=== PATIENT | female | born 1975 | race African-American/Black ===

== ENCOUNTER 2016-03-24 11:08 | Inpatient (IN) | payer MEDICARE, OTHER ==
[~2016-03-24] VITALS: Ht 165.1 cm; Wt 99.8 kg
[~2016-03-24 11:08] MED LIST: AMIKACIN S1000 MG/4 IV; ANCEF0.5 GM IVPB; AUGMENTIN 875-1 EAC1 ORAL; BACTRIM DS TAB1 EAC1 ORAL; CEFEPIME-D1 GM/50 ML IVPB; CEPHALEXIN500 MG ORAL; FLUCONAZOL IV; FLUCONAZOL100 MG/50 IV; FLUCONAZOL200 MG/100 IV; HYDROCORTISO1 APPLIC TOPIC; METRONIDAZ500 MG/100 IVPB; Marijuana; NKM; NO MEDICATIONS; NORCO 10-325 T1 EACH ORAL; NORCO 5-325 TA1 EAC1 ORAL; TYGACIL50 MG IVPB; VIBRAMYCIN100 MG ORAL; VIBRAMYCIN50 MG/5 M1 PO; ZYVOX600 MG/300 IVPB
[2016-03-24 13:06] VITALS: BP 94/54
[2016-03-24 15:59] VITALS: BP 109/46
[2016-03-24 16:03] VITALS: BP 109/62
[2016-03-24] MEDS ORDERED: Sodium Bicarbonate 8.4% 50ml Inj IV PRN (17:00)
[2016-03-24] MEDS ORDERED: Lidocaine 1% Plain 30 ml INJ PRN (17:00)
[2016-03-24] MEDS ORDERED: Heparin 2000 units/Ns 1000ml INJ PRN (17:00)
[2016-03-24] MEDS: DiphenhydrAMINE 50mg/ml Inj IVP PRN ×2 (17:39→21:51)
[2016-03-24 19:53] VITALS: BP 94/66
[2016-03-24] MEDS: Heparin 5000 units/ml inj SUBQ SCH (21:00)
[2016-03-25] VITALS: BP 103/52
[2016-03-25] MEDS: DiphenhydrAMINE 50mg/ml Inj IVP PRN ×3 (02:53→13:07)
[2016-03-25 08:19] VITALS: BP 85/51
[2016-03-25] MEDS: LORazepam Inj 2mg/ml 1ml IV PRN (08:20)
--- NOTE | 2016-03-25 09:37 | History and Physical Report ---
DATE OF ADMISSION: 03/24/2016 CHIEF COMPLAINT: Multiple sacral and thigh wounds. HISTORY OF PRESENT ILLNESS: This is a very pleasant unfortunate female with the history of paraplegia. She has a history of chronic sacral thigh wounds and been treated by her wound care physician as an outpatient. She was admitted because of worsening wounds and pain, subjective fevers, and chills. The patient otherwise without complaints. Denies any fevers or chills. She has had some anxiety. No reports of any chest pain or shortness of breath. PAST MEDICAL HISTORY: As above. PAST SURGICAL HISTORY: Includes multiple incisions and drainage and wound dbridements. CURRENT MEDICATIONS: Reconciled and reviewed. ALLERGIES: The patient has multiple drug allergies including , Rocephin, codeine, iron, Lasix, piperacillin/tazobactam, and vancomycin. FAMILY HISTORY: Noncontributory. SOCIAL HISTORY: There is no known history of tobacco, ethanol, or drugs. REVIEW OF SYSTEMS: General: Positive for generalized fevers and malaise. HEENT: No headaches. No visual changes. Cardiopulmonary: No chest pain or shortness of breath. Gastrointestinal: No nausea or vomiting. Genitourinary: No urgency or frequency. Musculoskeletal: No dependent swelling. Neurologic: No evidence of seizures. PHYSICAL EXAMINATION: VITAL SIGNS: Temperature 97.4 degrees, blood pressure 185/51, pulse of 116, respirations 20. GENERAL: The patient is a well-developed female, in no apparent distress. She is anxious and tearful. HEENT: Her pupils are equal, round, and reactive to light. Oropharynx clear. Mucous membranes are moist. NECK: Supple. HEART: Regular rate and rhythm. LUNGS: Clear. ABDOMEN: Soft, nontender, and nondistended. EXTREMITIES: Without clubbing or cyanosis. She also has a large sacral wound and multiple wounds on the right left hip. There is some discharge noted. LABORATORY DATA: Pending. ASSESSMENT: This is a pleasant unfortunate female with history of paraplegia, multiple sacral thigh wounds admitted for possible wound infection. PLAN: Plastic surgery evaluation and ID consultation. Check wound cultures. Empiric antibiotic therapy. Jacques Chanel M.D. DR: BOLA JOB#: [id number] CC:
[2016-03-25] MEDS: Heparin 5000 units/ml inj SUBQ SCH ×2 (10:00→22:16)
[2016-03-25 10:56] LABS: MEAN CORPUSCULAR HEMOGLOBIN 26.1 PG (27.0-31.0); MEAN CORPUSCULAR HGB CONC 30.1 G/DL (32.0-36.0); MEAN CORPUSCULAR VOLUME 87 FL (80-99); MEAN PLATELET VOLUME 7.4 FL (6.5-10.1); PLATELET COUNT 505 K/UL (150-450); RED BLOOD COUNT 3.44 M/UL (4.20-5.40); WHITE BLOOD COUNT 20.7 K/UL (4.8-10.8)
[2016-03-25 11:03] LABS: INR 1.3 (0.9-1.1); PROTHROMBIN TIME 13.1 SEC (9.30-11.50)
[2016-03-25 11:07] LABS: ALBUMIN/GLOBULIN RATIO 0.5 (1.0-2.7); CALCIUM 8.5 mg/dL (8.6-10.2); CREATININE 2.5 mg/dL (0.5-0.9); GLOMERULAR FILTRATION RATE 25.6 mL/min (>60); POTASSIUM 4.2 mEQ/L (3.4-4.9); TOTAL PROTEIN 7.4 g/dL (6.6-8.7)
[2016-03-25 11:19] LABS: ANISOCYTOSIS 1+; BAND NEUTROPHILS % (MANUAL) 6 % (0-8); BASOPHILS % (MANUAL) 0 % (0-2); EOSINOPHILS % (MANUAL) 0 % (0-3); HYPOCHROMASIA 2+; LYMPHOCYTES % (MANUAL) 9 % (20-45); NEUTROPHILS % (MANUAL) 79 % (45-75); PLATELET ESTIMATE ADEQUATE; PLATELET MORPHOLOGY NORMAL; TOTAL CELLS COUNTED 100
[2016-03-25 14:30] VITALS: BP 98/46
[2016-03-25 16:00] VITALS: BP 87/56
--- NOTE | 2016-03-25 16:05 | Wound Nurse Progress Note ---
Wound RN Progress Note Wound Consult 9am - attempted to do body assessment, explained purpose of body assessment, patient denied at this time stating " i want to sleep come back later." patient decided 1pm would be a good time to come back and assess. 12:14 pm recieved call from outpatient wound clinic for treatment orders per . 1:05pm - Returned to room for body assessment , explained to Patient it is now 1pm as we planned for body assessment ,asked patient if i was able to asses stated. " no, im sleepy, come back later" explained to patient purpose of body assessment,and also explained to patient that orders were obtained from . patient did not let me assess her at this time stated" come back in 45 mins". 1:50PM -Returned to patient room ,asked if i could assess her wounds , stated." okay come in." I was able to assess most wounds however she did not let me assess wound on sacral , asked patient if i could see her sacral wound stated " i dont have anything there". explained to patient i obtained orders for a sacral dressing, Patient denied wound at this time , not able to assess, patient did not agree with her sacral being assessed. SUGEY JORDAN Mar 25, 2016 16:05
--- NOTE | 2016-03-25 16:25 | Wound Care Consultation ---
Wound Assessment Wound Assessment #1: Wound Present on Admission: Yes New Wound: No Status Change of Wound: No Wound Location Body Site Modif: left Wound Location Body Site: ischial tuberosity Wound Type: pressure ulcer - scattered pressue ulcers. Gilberto Test: Does not Gilberto Pressure Ulcer Stage: IV/unstageable Wound Thickness: Full Thickness Wound Length: 10.5 Wound Width: 10.5 Wound Depth: 0.3 Percent of Wound [place]/Red: 100 Wound Drainage Description: Serosanguineous Wound Drainage Amount: Moderate Wound Drainage Odor: None/Absent Tissue Surrounding Wound: Macerated Wound General Appearance: Reddened Wound Assessment #2: Wound Number: #2 Wound Present on Admission: Yes New Wound: No Status Change of Wound: No Wound Location Body Site Modif: left, lateral Wound Location Body Site: thigh - site 1 Wound Type: abscess Wound Length: 3.0 Wound Width: 2.0 Wound Depth: 2.0 Percent of Wound [place]/Red: 100 Wound Drainage Description: Serosanguineous Wound Drainage Amount: Copious Wound Drainage Odor: Mild Odor Tissue Surrounding Wound: Macerated Wound General Appearance: Reddened, Bleeding, Draining Wound Assessment #3: Wound Number: #3 Wound Present on Admission: Yes New Wound: No Status Change of Wound: No Wound Location Body Site Modif: left, lateral Wound Location Body Site: thigh - site 2 Wound Type: abscess Wound Length: 1.0 Wound Width: 0.5 Wound Depth: 0.3 Percent of Wound [place]/Red: 100 Wound Drainage Description: Serosanguineous Wound Drainage Amount: Moderate Wound Drainage Odor: None/Absent Tissue Surrounding Wound: Macerated Wound General Appearance: Reddened, Bleeding, Draining Wound Assessment #4: Wound Number: #4 Wound Present on Admission: Yes New Wound: No Status Change of Wound: No Wound Location Body Site Modif: left, lateral Wound Location Body Site: thigh - site 3 Wound Type: abscess Wound Length: 2.0 Wound Width: 2.0 Wound Depth: 1.0 Percent of Wound [place]/Red: 100 Wound Drainage Description: Serosanguineous Wound Drainage Amount: Moderate Wound Drainage Odor: None/Absent Tissue Surrounding Wound: Macerated Wound General Appearance: Reddened, Bleeding, Draining Wound Assessment #5: Wound Number: #5 Wound Present on Admission: Yes New Wound: No Status Change of Wound: No Wound Location Body Site Modif: left, posterior Wound Location Body Site: leg Wound Type: pressure ulcer Gilberto Test: Does not Gilberto Pressure Ulcer Stage: IV/unstageable Wound Thickness: Full Thickness Wound Length: 10.0 Wound Width: 10.0 Wound Depth: utd Percent of Wound [place]/Red: 20 Percent of Wound Bed Yellow/Wh: 60 Percent of Wound Black/Brown: 20 Wound Drainage Description: Serosanguineous Wound Drainage Amount: Copious Wound Drainage Odor: Mild Odor Tissue Surrounding Wound: Macerated Wound General Appearance: Reddened, Bleeding, Draining, Necrotic Wound Assessment #6: Wound Number: #6 Wound Present on Admission: Yes New Wound: No Status Change of Wound: No Wound Location Body Site Modif: right, posterior Wound Location Body Site: leg Wound Type: pressure ulcer Gilberto Test: Does not Gilberto Pressure Ulcer Stage: IV/unstageable Wound Thickness: Full Thickness Wound Length: 8.0 Wound Width: 6.0 Wound Depth: utd Percent of Wound [place]/Red: 20 Percent of Wound Bed Yellow/Wh: 80 Wound Drainage Amount: Copious Wound Drainage Odor: Mild Odor Tissue Surrounding Wound: Macerated Wound General Appearance: Reddened, Bleeding, Draining Wound Assessment #7: Wound Number: #7 Wound Present on Admission: Yes New Wound: No Status Change of Wound: No Wound Location Body Site Modif: right, lateral Wound Location Body Site: thigh - site 1 Wound Type: abscess Wound Length: 2.0 Wound Width: 2.0 Wound Depth: 1.5 Wound Drainage Amount: Moderate Wound Drainage Odor: None/Absent Tissue Surrounding Wound: Macerated Wound General Appearance: Reddened, Bleeding, Draining Wound Assessment #8: Wound Number: #8 Wound Present on Admission: Yes New Wound: No Status Change of Wound: No Wound Location Body Site Modif: right Wound Location Body Site: trochanter Wound Type: abscess Wound Length: 3.0 Wound Width: 2.0 Wound Depth: 2.5 Wound Drainage Description: Serosanguineous Wound Drainage Amount: Moderate Wound Drainage Odor: None/Absent Tissue Surrounding Wound: Macerated Wound General Appearance: Reddened, Bleeding, Draining Wound Comment #1 Left Ischial Tuberosity pressure ulcer stage IV/Unstageable.. #2 Left Posterior leg Pressure Ulcer stage IV/Unstageable. # 3 Right Posterior leg Pressure Ulcer stage IV/Unstageable.. #4 Left lateral thigh abscess Site 1,2, & 3. #5 Right lateral thigh abscess Site 1, &2. #6 Sacral Pressure Ulcer. Patient refuse to be seen at this area. Recommendation -Local wound care as ordered. -Turn and reposition. -Keep clean and dry . -Low air loss with AP. -Optimize nutrition. - Assess and follow up with MD for any changes. SUGEY JORDAN Mar 25, 2016 16:25
--- NOTE | 2016-03-25 18:09 | Infectious Diseases Prog Note ---
Assessment/Plan Assessment/Plan Full consult dictated: A) 1) bilateral hip/thigh infected wounds/cellulitis with sepsis, leukocytosis and fevers, sirs, c.diff. risk 2) lois, wt loss, anemia 3) pp, hx osteo and treatment, colostomy 4) allergies - rocephin, codeine, latex, zosyn, vancomycin P) 1) zyvox, aztreonam and flaygl 2) check wc, bc, labs and chest x-ray, c.diff. 3) wound care 4) thank you Subjective Allergies: Coded Allergies: CEFTRIAXONE (Verified Allergy, Intermediate, SOB, HR-140bpm, face swollen , pt became red, 10/24/15) CODEINE (Verified Allergy, Intermediate, SWELLING, 01/03/11) LATEX (Verified Allergy, Intermediate, SWELLING, 01/03/11) PIPERACILLIN (Verified Allergy, Intermediate, Itching, 08/29/15) 08/29/15 tolerates Ceftaroline TAZOBACTAM (Verified Allergy, Intermediate, Itching, 01/29/15) VANCOMYCIN (Verified Allergy, Mild, 07/15/14) ASPARAGINASE (Verified Allergy, Unknown, 01/28/14) IRON (Verified Allergy, Unknown, 01/28/14) Objective Vital Signs Last 24 Hour Vital Signs Date Time Temp Pulse Resp B/P Pulse Ox O2 Delivery O2 Flow Rate FiO2 03/25/16 16:00 97.1 104 22 87/56 100 Room Air 03/25/16 14:30 97.2 97 20 98/46 95 Room Air 03/25/16 13:36 97.4 03/25/16 08:19 97.4 116 20 85/51 100 Room Air 03/25/16 00:00 97.3 105 18 103/52 97 Room Air 03/24/16 19:53 96.9 100 20 94/66 91 Room Air Height (Feet): 5 Height (Inches): 5.00 Weight (Pounds): 220 Laboratory Tests Test 03/25/16 10:25 White Blood Count 20.7 K/UL (4.8-10.8) H Red Blood Count 3.44 M/UL (4.20-5.40) L Hemoglobin 9.0 G/DL (12.0-16.0) L Hematocrit 29.8 % (37.0-47.0) L Mean Corpuscular Volume 87 FL (80-99) Mean Corpuscular Hemoglobin 26.1 PG (27.0-31.0) L Mean Corpuscular Hemoglobin Concent 30.1 G/DL (32.0-36.0) L Red Cell Distribution Width 16.0 % (11.6-14.8) H Platelet Count 505 K/UL (150-450) H Mean Platelet Volume 7.4 FL (6.5-10.1) Neutrophils (%) (Auto) % (45.0-75.0) Lymphocytes (%) (Auto) % (20.0-45.0) Monocytes (%) (Auto) % (1.0-10.0) Eosinophils (%) (Auto) % (0.0-3.0) Basophils (%) (Auto) % (0.0-2.0) Differential Total Cells Counted 100 Neutrophils % (Manual) 79 % (45-75) H Lymphocytes % (Manual) 9 % (20-45) L Monocytes % (Manual) 6 % (1-10) Eosinophils % (Manual) 0 % (0-3) Basophils % (Manual) 0 % (0-2) Band Neutrophils 6 % (0-8) Platelet Estimate Adequate Platelet Morphology Normal Hypochromasia 2+ Anisocytosis 1+ Prothrombin Time 13.1 SEC (9.30-11.50) H Prothromb Time International Ratio 1.3 (0.9-1.1) H Activated Partial Thromboplast Time 36 SEC (23-33) H Sodium Level 131 mEQ/L (135-145) L Potassium Level 4.2 mEQ/L (3.4-4.9) Chloride Level 92 mEQ/L (98-107) L Carbon Dioxide Level 25 mEQ/L (20-30) Anion Gap 14 (5-15) Blood Urea Nitrogen 29 mg/dL (7-23) H Creatinine 2.5 mg/dL (0.5-0.9) H Estimat Glomerular Filtration Rate 25.6 mL/min (>60) Glucose Level 120 mg/dL (74-106) H Calcium Level 8.5 mg/dL (8.6-10.2) L Total Bilirubin 0.7 mg/dL (0.0-1.2) Aspartate Amino Transf (AST/SGOT) 5 U/L (5-40) Alanine Aminotransferase (ALT/SGPT) 10 U/L (3-33) Alkaline Phosphatase 169 U/L (35-104) H Total Protein 7.4 g/dL (6.6-8.7) Albumin 2.5 g/dL (3.5-5.2) L Globulin 4.9 g/dL Albumin/Globulin Ratio 0.5 (1.0-2.7) L Current Medications Medications (Trade) Dose Ordered Sig/Pineda Route PRN Reason Start Time Stop Time Status Last Admin Dose Admin Acetaminophen (Tylenol) 650 mg Q4H PRN ORAL Mild Pain/Temp > 100.5 03/24/16 17:00 04/23/16 16:59 Diphenhydramine HCl (Benadryl) 25 mg Q4H PRN IVP Itching 03/24/16 17:00 04/23/16 16:59 03/25/16 13:07 Heparin Sodium (Porcine) (Heparin 5000 units/ml) 5,000 units EVERY 12 HOURS SUBQ 03/24/16 21:00 04/23/16 20:59 Heparin Sodium/ Sodium Chloride (Heparin 2000 units/Ns 1000ml premix) 2,000 unit ONCE PRN INJ PICC LINE PLACEMENT 03/24/16 17:00 03/25/16 23:59 Hydromorphone HCl (Dilaudid) 2 mg Q4H PRN IVP SEVERE PAIN 03/24/16 17:03 03/31/16 16:59 03/25/16 13:06 Lidocaine HCl (Xylocaine 1% 30ml) 30 ml ONCE PRN INJ PICC LINE PLACEMENT 03/24/16 17:00 03/25/16 23:59 Lorazepam (Ativan 2mg/ml 1ml) 1 mg Q4H PRN IV For Anxiety 03/25/16 08:00 04/01/16 07:59 03/25/16 08:20 Ondansetron HCl (Zofran) 4 mg Q4H PRN IVP Nausea & Vomiting 03/24/16 17:30 04/23/16 17:29 03/25/16 02:53 Sodium Bicarbonate (Sodium Bicarbonate) 50 ml ONCE PRN IV FOR PICC PLACEMENT 03/24/16 17:00 03/25/16 23:59 GRZEGORZ MARTINEZ Mar 25, 2016 18:09
--- NOTE | 2016-03-25 18:17 | Consultation ---
History of Present Illness General Date patient seen: Mar 25, 2016 Time patient seen: 18:07 Chief Complaint: Leukocytosis Reason for Consultation: Multiple wounds Present Illness HPI Patient is a 40 yof admitted to [facility] yesterday for malaise and found to have elevated WBC. She was seen in outpatient wound center on 03/22/16 where she was noted to have worsening of her wounds and development of new wounds. 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 Allergies: Coded Allergies: CEFTRIAXONE (Verified Allergy, Intermediate, SOB, HR-140bpm, face swollen , pt became red, 10/24/15) CODEINE (Verified Allergy, Intermediate, SWELLING, 01/03/11) LATEX (Verified Allergy, Intermediate, SWELLING, 01/03/11) PIPERACILLIN (Verified Allergy, Intermediate, Itching, 08/29/15) 08/29/15 tolerates Ceftaroline TAZOBACTAM (Verified Allergy, Intermediate, Itching, 01/29/15) VANCOMYCIN (Verified Allergy, Mild, 07/15/14) ASPARAGINASE (Verified Allergy, Unknown, 01/28/14) IRON (Verified Allergy, Unknown, 01/28/14) Medication History Scheduled Amikacin Sulfate (Amikacin Sulfate), 1,000 MG IV DAILY, (Reported) Linezolid (Zyvox), 600 MG IVPB EVERY 12 HOURS, (Reported) Metronidazole/Sodium Chloride* (Metronidazole 500 Mg/100 Ml*), 500 MG IVPB EVERY 8 HOURS, (Reported) No Known Medications* (NKM - No Known Medications*), 0 ., (Reported) Patient History History Provided By: Patient, Medical Record Healthcare decision maker Resuscitation status Advanced Directive on File Review of Systems Constitutional: Reports: chills Eye: Reports: no symptoms ENT: Reports: no symptoms Respiratory: Reports: no symptoms Cardiovascular: Reports: no symptoms Gastrointestinal: Reports: abdominal pain Musculoskeletal: Reports: back pain, muscle pain Skin: Reports: rash, see HPI Psychiatric: Reports: no symptoms Hematologic/Lymphatic: Reports: anemia Physical Exam General Appearance: alert Lines, tubes and drains: PICC Respiratory/Chest: no respiratory distress Abdomen: soft Skin Exam: other - Right posterior thigh wound with ecchymosis at the base and periskin with bruising. Left posterior thigh ulcer with parts cleaner base. Lateral thigh ulcer with packing in place and some drainage. Groin creases and inner thighs with excoriation due to moisture. Neurologic: alert, oriented x 3 Last 24 Hour Vital Signs Date Time Temp Pulse Resp B/P Pulse Ox O2 Delivery O2 Flow Rate FiO2 03/25/16 16:00 97.1 104 22 87/56 100 Room Air 03/25/16 14:30 97.2 97 20 98/46 95 Room Air 03/25/16 13:36 97.4 03/25/16 08:19 97.4 116 20 85/51 100 Room Air 03/25/16 00:00 97.3 105 18 103/52 97 Room Air 03/24/16 19:53 96.9 100 20 94/66 91 Room Air Intake and Output 03/24/16 03/25/16 19:00 07:00 Intake Total 325 ml 990 ml Balance 325 ml 990 ml Intake Oral 325 ml 990 ml # Bowel Movements 100 Laboratory Tests Test 03/25/16 10:25 White Blood Count 20.7 K/UL (4.8-10.8) H Red Blood Count 3.44 M/UL (4.20-5.40) L Hemoglobin 9.0 G/DL (12.0-16.0) L Hematocrit 29.8 % (37.0-47.0) L Mean Corpuscular Volume 87 FL (80-99) Mean Corpuscular Hemoglobin 26.1 PG (27.0-31.0) L Mean Corpuscular Hemoglobin Concent 30.1 G/DL (32.0-36.0) L Red Cell Distribution Width 16.0 % (11.6-14.8) H Platelet Count 505 K/UL (150-450) H Mean Platelet Volume 7.4 FL (6.5-10.1) Neutrophils (%) (Auto) % (45.0-75.0) Lymphocytes (%) (Auto) % (20.0-45.0) Monocytes (%) (Auto) % (1.0-10.0) Eosinophils (%) (Auto) % (0.0-3.0) Basophils (%) (Auto) % (0.0-2.0) Differential Total Cells Counted 100 Neutrophils % (Manual) 79 % (45-75) H Lymphocytes % (Manual) 9 % (20-45) L Monocytes % (Manual) 6 % (1-10) Eosinophils % (Manual) 0 % (0-3) Basophils % (Manual) 0 % (0-2) Band Neutrophils 6 % (0-8) Platelet Estimate Adequate Platelet Morphology Normal Hypochromasia 2+ Anisocytosis 1+ Prothrombin Time 13.1 SEC (9.30-11.50) H Prothromb Time International Ratio 1.3 (0.9-1.1) H Activated Partial Thromboplast Time 36 SEC (23-33) H Sodium Level 131 mEQ/L (135-145) L Potassium Level 4.2 mEQ/L (3.4-4.9) Chloride Level 92 mEQ/L (98-107) L Carbon Dioxide Level 25 mEQ/L (20-30) Anion Gap 14 (5-15) Blood Urea Nitrogen 29 mg/dL (7-23) H Creatinine 2.5 mg/dL (0.5-0.9) H Estimat Glomerular Filtration Rate 25.6 mL/min (>60) Glucose Level 120 mg/dL (74-106) H Calcium Level 8.5 mg/dL (8.6-10.2) L Total Bilirubin 0.7 mg/dL (0.0-1.2) Aspartate Amino Transf (AST/SGOT) 5 U/L (5-40) Alanine Aminotransferase (ALT/SGPT) 10 U/L (3-33) Alkaline Phosphatase 169 U/L (35-104) H Total Protein 7.4 g/dL (6.6-8.7) Albumin 2.5 g/dL (3.5-5.2) L Globulin 4.9 g/dL Albumin/Globulin Ratio 0.5 (1.0-2.7) L Height (Feet): 5 Height (Inches): 5.00 Weight (Pounds): 220 Medications Current Medications Medications (Trade) Dose Ordered Sig/Pineda Route PRN Reason Start Time Stop Time Status Last Admin Dose Admin Acetaminophen (Tylenol) 650 mg Q4H PRN ORAL Mild Pain/Temp > 100.5 03/24/16 17:00 04/23/16 16:59 Diphenhydramine HCl (Benadryl) 25 mg Q4H PRN IVP Itching 03/24/16 17:00 04/23/16 16:59 03/25/16 13:07 Heparin Sodium (Porcine) (Heparin 5000 units/ml) 5,000 units EVERY 12 HOURS SUBQ 03/24/16 21:00 04/23/16 20:59 Heparin Sodium/ Sodium Chloride (Heparin 2000 units/Ns 1000ml premix) 2,000 unit ONCE PRN INJ PICC LINE PLACEMENT 03/24/16 17:00 03/25/16 23:59 Hydromorphone HCl (Dilaudid) 2 mg Q4H PRN IVP SEVERE PAIN 03/24/16 17:03 03/31/16 16:59 03/25/16 13:06 Lidocaine HCl (Xylocaine 1% 30ml) 30 ml ONCE PRN INJ PICC LINE PLACEMENT 03/24/16 17:00 03/25/16 23:59 Lorazepam (Ativan 2mg/ml 1ml) 1 mg Q4H PRN IV For Anxiety 03/25/16 08:00 04/01/16 07:59 03/25/16 08:20 Ondansetron HCl (Zofran) 4 mg Q4H PRN IVP Nausea & Vomiting 03/24/16 17:30 04/23/16 17:29 03/25/16 02:53 Sodium Bicarbonate (Sodium Bicarbonate) 50 ml ONCE PRN IV FOR PICC PLACEMENT 03/24/16 17:00 03/25/16 23:59 Assessment/Plan Status: stable Assessment/Plan Patient with multiple wounds. Elevated WBC. Do not feel the wounds are responsible solely for the WBC elevation. Appreciate ID input. Cannot perform CT scan with contrast due to elevated Cr. For now will input wound care orders and if wounds continue to worsen may need to perform operative debridement. LEEANNA CORONA Mar 25, 2016 18:17
[2016-03-25 20:00] VITALS: BP 96/58
[2016-03-25] MEDS: AZTREONAM IVPB SCH (21:56)
[2016-03-25] MEDS: D5W IVPB SCH (21:56)
[2016-03-25] MEDS: metroNIDAZOLE 500mg 100 ML IVPB SCH (21:57)
[2016-03-26] VITALS (8 sets, daily range): BP systolic 85–115; BP diastolic 42–65
[2016-03-26] MEDS: D5W IVPB SCH ×3 (04:01→20:54)
[2016-03-26] MEDS: DiphenhydrAMINE 50mg/ml Inj IVP PRN ×5 (04:01→23:05)
[2016-03-26] MEDS: AZTREONAM IVPB SCH ×3 (04:01→20:54)
--- NOTE | 2016-03-26 04:18 | Consultation ---
DATE OF CONSULTATION: 03/25/2016 INFECTIOUS DISEASES CONSULTATION: CONSULTING PHYSICIAN: Kush Reyes M.D. ATTENDING PHYSICIAN: Thanh Glover M.D. REQUESTING PHYSICIAN: I was asked by Dr. Jacques Chanel to see this patient. REASON FOR CONSULTATION: Infected wounds of the hip, sepsis, elevated white count, and fevers. CHIEF COMPLAINT: Coming into the hospital with infected wounds. HISTORY OF PRESENT ILLNESS: This is a 40-year-old female with history of multiple infected wounds in the past including now, status post multiple antibiotic regimen treatments including long-term treatment for osteomyelitis. The patient has had worsening wounds. I discussed the case with Dr. Cristobal about the wounds. The patient has sepsis, elevated white count, fever, and chills criteria. Infectious Disease consultation was requested for antibiotic management. The patient has multiple drug allergies including penicillin, Zosyn, and Rocephin. The patient was placed on aztreonam, Zyvox, and Flagyl. We will try to avoid nephrotoxic drugs. The patient will be cultured. We will plan reviewing the pictures, the most intense looking wounds located were on the hip and thighs bilaterally. The patient will be cultured secondary to cellulitis. In discussion with Dr. Cristobal, wounds are worsening at this time. I also discussed this case with Dr. Cristobal. MAR was noted. Orders were noted. Notes were reviewed. Case was discussed with RN. The case was discussed with the patient. PAST MEDICAL HISTORY: The patient has a history of paraplegia. She has chronic wound, history of osteoarthritis, status post treatment. She has anemia. She has right now acute kidney injury. She has a history of sepsis in the past. She has a history of cholelithiasis, history of pain syndrome, weakness, and fatigue, and it looks like that she also has a history of diabetes in the past. Please see past medical history in medical order. MEDICATIONS: Upon reviewing the MAR, the patient is on the following medications. Lorazepam, heparin, Zofran, hydromorphone, Benadryl, acetaminophen. She is on sodium bicarbonate, lidocaine, and heparin. ALLERGIES: She is allergic to multiple medications including Rocephin, asparaginase, codeine, iron, Latex, piperacillin and tazobactam, Zosyn, and vancomycin. FAMILY HISTORY: Noncontributory. Negative for exposure to tuberculosis or cancer. SOCIAL HISTORY: Negative for smoking, alcohol, or drug use. REVIEW OF SYSTEMS: Constitutional: The patient has paraplegia. The patient has no Ibrahim. The patient has a colostomy. She has a new PICC line. She has generalized weakness and fatigue. She has fevers. No chills at this time. HEENT: Head and Neck, no thrush, dysphagia or sinus tenderness. Cardiac: No chest pain or palpitations. GI: No nausea, vomiting, or diarrhea. : She has no Ibrahim. Pulmonary: She has no significant shortness of breath, cough, or sputum production. Skin: She has multiple wounds. Neurologic: No seizures. Extremities: She has no pain at this time. PHYSICAL EXAMINATION: VITAL SIGNS: Maximum temperature is 100.1 degrees, temperature now is 97.1 degrees, pulse 104, respiratory rate 22, blood pressure 87/56, and oxygen saturation 100%. GENERAL: The patient is alert and responsive. She is paraplegic. HEENT: Head and Neck, oral exam, no thrush. Eye exam, no icterus. Neck is supple. No JVD. No sinus tenderness. Normocephalic. No facial droop. LUNGS: Clear bilaterally. No rhonchi or rales. HEART: Regular. No gallop or murmur. No friction rub, tachycardic. ABDOMEN: Soft. Positive bowel sounds. Nontender. She has a colostomy. SKIN: Multiple wounds are reviewed and examined and pictures were reviewed also, most prominent of the thigh and hip wounds as well as cellulitis with slough. MUSCULOSKELETAL: No effusions noted. Legs are without cellulitis. PERIPHERAL VASCULAR: No cyanosis or gangrene. RECTAL: She has a colostomy. : She has no Ibrahim. LINES: Line sites are without phlebitis. She has a new PICC line. NEUROLOGIC: Weakness, responsive, alert, and oriented x3. LABORATORY DATA: White count is 20.7 and hemoglobin 9.0, and platelet count is 505,000. Creatinine is 2.5. Sodium is 131. Alkaline phosphatase is 169. Cultures have been ordered. IMAGING STUDIES: No imaging studies have been ordered. C. diff has been ordered. Blood culture, urine culture and sensitivity have been ordered, but we were unable to get urine culture and sensitivity on her. ASSESSMENT AND PLAN: 1. This patient has bilateral hip and thigh infected wounds. She has multiple wounds infected. Clinically, my exam on bilateral thighs and hips, infected wounds are most pronounced with secondary to cellulitis, sepsis, liver cirrhosis, fever and chills criteria. The patient has antibiotics. She also has acute kidney injury, creatinine . She also has anemia. Continue antibiotics, at present, Zyvox, aztreonam, and Flagyl. We will check culture on the patient. The patient may need further imaging of the hip and thigh areas to rule out abscess once her kidney functions are improved. At this time, we will get CT with contrast. Discussed also with Dr. Cristobal. Continue IV Zyvox, Flagyl, and aztreonam. Check cultures, blood, and urine if possible. Check wound cultures. Check . Continue wound care per Dr. Cristobal. We will watch the patient closely. 2. Acute kidney injury. 3. Anemia. 4. Weight loss for . 5. History of osteoarthritis and treatment. 6. Colostomy. 7. Paraplegia. 8. Anemia. 9. Possible history of diabetes. 10. Chronic pain management and chronic pain syndrome. 11. History of cholelithiasis. 12. Pain management for primary. 13. Multiple allergies to asparaginase, Rocephin, codeine, iron, Latex, piperacillin, tazobactam, and vancomycin. 14. The case was discussed with Dr. Cristobal. 15. The case was discussed with RN. 16. The case was discussed with the patient. 17. Nurses notes were reviewed. Kush Reyes M.D. DR: Dorian JOB#: [id number] CC:
[2016-03-26] MEDS: metroNIDAZOLE 500mg 100 ML IVPB SCH ×3 (05:31→23:05)
[2016-03-26] MEDS: LORazepam Inj 2mg/ml 1ml IV PRN (07:01)
[2016-03-26 07:45] LABS: CALCIUM 8.3 mg/dL (8.6-10.2); CREATININE 2.5 mg/dL (0.5-0.9); GLOMERULAR FILTRATION RATE 25.6 mL/min (>60); POTASSIUM 4.3 mEQ/L (3.4-4.9)
[2016-03-26 08:06] LABS: MEAN CORPUSCULAR HEMOGLOBIN 26.5 PG (27.0-31.0); MEAN CORPUSCULAR HGB CONC 30.4 G/DL (32.0-36.0); MEAN CORPUSCULAR VOLUME 87 FL (80-99); MEAN PLATELET VOLUME 7.7 FL (6.5-10.1); PLATELET COUNT 510 K/UL (150-450); RED BLOOD COUNT 3.12 M/UL (4.20-5.40); WHITE BLOOD COUNT 18.8 K/UL (4.8-10.8)
--- NOTE | 2016-03-26 08:29 | General Progress Note ---
Assessment/Plan Problem List: (1) Acute renal failure ICD Codes: N17.9 - Acute kidney failure, unspecified SNOMED: 24047932 Qualifiers: Qualified Codes: N17.9 - Acute kidney failure, unspecified (2) Cellulitis ICD Codes: L03.90 - Cellulitis, unspecified SNOMED: 003158472 Qualifiers: Qualified Codes: L03.90 - Cellulitis, unspecified (3) Abscess ICD Codes: L02.91 - Abscess SNOMED: 205922641 (4) Generalized weakness ICD Codes: R53.1 - Weakness SNOMED: 88722870 (5) Abscess of hip, left ICD Codes: L02.416 - Cutaneous abscess of left lower limb SNOMED: 153077 (6) right hip wound (7) Bilateral edema of lower extremity ICD Codes: R60.0 - Localized edema SNOMED: 369581954 (8) Paraplegia ICD Codes: G82.20 - Paraplegia SNOMED: 86310667 Status: stable, not improved Assessment/Plan iv abx per id follow up cultures wound care ivf check renal martha monitor labs pain rx Subjective ROS Limited/Unobtainable: No Constitutional: Reports: malaise, weakness HEENT: Reports: no symptoms Cardiovascular: Reports: no symptoms Respiratory: Reports: cough Gastrointestinal/Abdominal: Reports: no symptoms Genitourinary: Reports: no symptoms 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: Reports: pre-existing deficit Endocrine: Reports: no symptoms Hematologic/Lymphatic: Reports: anemia Allergies: Coded Allergies: CEFTRIAXONE (Verified Allergy, Intermediate, SOB, HR-140bpm, face swollen , pt became red, 10/24/15) CODEINE (Verified Allergy, Intermediate, SWELLING, 01/03/11) LATEX (Verified Allergy, Intermediate, SWELLING, 01/03/11) PIPERACILLIN (Verified Allergy, Intermediate, Itching, 08/29/15) 08/29/15 tolerates Ceftaroline TAZOBACTAM (Verified Allergy, Intermediate, Itching, 01/29/15) VANCOMYCIN (Verified Allergy, Mild, 07/15/14) ASPARAGINASE (Verified Allergy, Unknown, 01/28/14) IRON (Verified Allergy, Unknown, 01/28/14) All Systems: reviewed and negative except above Subjective better today. less anxious. no chest pain pain controlled. labs noted. bp better. remains on ivf. Objective Last 24 Hour Vital Signs Date Time Temp Pulse Resp B/P Pulse Ox O2 Delivery O2 Flow Rate FiO2 03/26/16 04:52 97.9 80 19 115/62 95 Room Air 03/26/16 04:33 97.2 03/26/16 04:14 110/65 03/26/16 00:00 97.2 83 19 107/58 96 Room Air 03/25/16 20:00 97.3 97 22 96/58 98 Room Air 03/25/16 16:00 97.1 104 22 87/56 100 Room Air 03/25/16 14:30 97.2 97 20 98/46 95 Room Air Intake and Output 03/25/16 03/26/16 19:00 07:00 Intake Total 1000 ml 1750 ml Balance 1000 ml 1750 ml Intake Oral 1300 ml IV Total 1000 ml 450 ml # Voids 4 Laboratory Tests 03/25/16 10:25: White Blood Count 20.7H, Red Blood Count 3.44L, Hemoglobin 9.0L, Hematocrit 29.8L, Mean Corpuscular Volume 87, Mean Corpuscular Hemoglobin 26.1L, Mean Corpuscular Hemoglobin Concent 30.1L, Red Cell Distribution Width 16.0H, Platelet Count 505H, Mean Platelet Volume 7.4, Neutrophils (%) (Auto) , Lymphocytes (%) (Auto) , Monocytes (%) (Auto) , Eosinophils (%) (Auto) , Basophils (%) (Auto) , Differential Total Cells Counted 100, Neutrophils % ( Manual) 79H, Lymphocytes % (Manual) 9L, Monocytes % (Manual) 6, Eosinophils % ( Manual) 0, Basophils % (Manual) 0, Band Neutrophils 6, Platelet Estimate Adequate, Platelet Morphology Normal, Hypochromasia 2+, Anisocytosis 1+, Prothrombin Time 13.1H, Prothromb Time International Ratio 1.3H, Activated Partial Thromboplast Time 36H, Sodium Level 131L, Potassium Level 4.2, Chloride Level 92L, Carbon Dioxide Level 25, Anion Gap 14, Blood Urea Nitrogen 29H, Creatinine 2.5H, Estimat Glomerular Filtration Rate 25.6, Glucose Level 120H, Calcium Level 8.5L, Total Bilirubin 0.7, Aspartate Amino Transf (AST/SGOT) 5, Alanine Aminotransferase (ALT/SGPT) 10, Alkaline Phosphatase 169H, Total Protein 7.4, Albumin 2.5L, Globulin 4.9, Albumin/Globulin Ratio 0.5L, Prealbumin [Pending] 03/26/16 04:00: White Blood Count 18.8H, Red Blood Count 3.12L, Hemoglobin 8.3L, Hematocrit 27.1L, Mean Corpuscular Volume 87, Mean Corpuscular Hemoglobin 26.5L, Mean Corpuscular Hemoglobin Concent 30.4L, Red Cell Distribution Width 16.0H, Platelet Count 510H, Mean Platelet Volume 7.7, Neutrophils (%) (Auto) , Lymphocytes (%) (Auto) , Monocytes (%) (Auto) , Eosinophils (%) (Auto) , Basophils (%) (Auto) , Neutrophils % (Manual) [Pending], Lymphocytes % (Manual) [Pending], Platelet Estimate [Pending], Platelet Morphology [Pending], Sodium Level 133L, Potassium Level 4.3, Chloride Level 91L, Carbon Dioxide Level 23, Anion Gap 19H, Blood Urea Nitrogen 35H, Creatinine 2.5H, Estimat Glomerular Filtration Rate 25.6, Glucose Level 108H, Calcium Level 8.3L Height (Feet): 5 Height (Inches): 5.00 Weight (Pounds): 220 General Appearance: WD/WN, alert Neck: supple Cardiovascular: normal rate, regular rhythm Respiratory/Chest: chest wall non-tender, lungs clear, normal breath sounds, no respiratory distress Abdomen: normal bowel sounds, non tender, soft, no organomegaly Edema: no edema noted Arm (L), no edema noted Arm (R), no edema noted Leg (L), no edema noted Leg (R), no edema noted Pedal (L), no edema noted Pedal (R), no edema noted Generalized Neurologic: motor weakness Skin: other - sacral and bilateral hip wounds BONG BRUNNER Mar 26, 2016 08:29
[2016-03-26] MEDS: Heparin 5000 units/ml inj SUBQ SCH ×2 (08:39→21:49)
[2016-03-26 10:29] LABS: BAND NEUTROPHILS % (MANUAL) 1 % (0-8); BASOPHILS % (MANUAL) 0 % (0-2); EOSINOPHILS % (MANUAL) 0 % (0-3); LYMPHOCYTES % (MANUAL) 16 % (20-45); NEUTROPHILS % (MANUAL) 80 % (45-75); PLATELET ESTIMATE INCREASED; PLATELET MORPHOLOGY NORMAL; TOTAL CELLS COUNTED 100
--- NOTE | 2016-03-26 13:48 | Diagnostic Imaging Report ---
Indication: Cough Comparison: 11/24/15 A single view chest radiograph was obtained. Findings: Cardiomediastinal appearance is within normal limits for age. Left upper extremity PICC line is in good position with the tip at the junction of SVC and right atrium. Pulmonary vascularity is appropriate. The diaphragmatic contour is smooth and costophrenic angles are sharp. No pleural effusions are identified. The bones are unremarkable. Impression: No acute findings
[2016-03-26] MEDS ORDERED: Tubing IV Secondary IV ONE (14:21)
[2016-03-26] MEDS ORDERED: NS Irrig 1000ml ONE (14:21)
[2016-03-27] VITALS: BP 91/51
[2016-03-27] MEDS: AZTREONAM IVPB SCH ×3 (03:13→19:06)
[2016-03-27] MEDS: D5W IVPB SCH ×3 (03:13→19:06)
[2016-03-27] MEDS: DiphenhydrAMINE 50mg/ml Inj IVP PRN ×5 (03:19→23:56)
[2016-03-27 04:00] VITALS: BP_SYST 80; BP_SYST 90; BP_DIAS 37; BP_DIAS 48
[2016-03-27] MEDS: metroNIDAZOLE 500mg 100 ML IVPB SCH ×2 (06:00→14:59)
[2016-03-27 06:55] LABS: MEAN CORPUSCULAR HEMOGLOBIN 26.3 PG (27.0-31.0); MEAN CORPUSCULAR HGB CONC 30.6 G/DL (32.0-36.0); MEAN CORPUSCULAR VOLUME 86 FL (80-99); MEAN PLATELET VOLUME 6.9 FL (6.5-10.1); PLATELET COUNT 483 K/UL (150-450); RED BLOOD COUNT 2.91 M/UL (4.20-5.40); RED CELL DISTRIBUTION WIDTH 16.1 % (11.6-14.8); WHITE BLOOD COUNT 16.2 K/UL (4.8-10.8)
[2016-03-27 07:18] LABS: ALANINE AMINOTRANSFERASE 5 U/L (3-33); ALBUMIN/GLOBULIN RATIO 0.4 (1.0-2.7); ANION GAP 19 (5-15); ASPARTATE AMINO TRANSFERASE < 5 U/L (5-40); CALCIUM 8.1 mg/dL (8.6-10.2); CARBON DIOXIDE 21 mEQ/L (20-30); CHLORIDE 88 mEQ/L (98-107); CREATININE 2.2 mg/dL (0.5-0.9); GLOMERULAR FILTRATION RATE 29.7 mL/min (>60); HEMOLYSIS 0; POTASSIUM 3.9 mEQ/L (3.4-4.9); SODIUM 128 mEQ/L (135-145); TOTAL PROTEIN 6.9 g/dL (6.6-8.7)
--- NOTE | 2016-03-27 07:58 | General Progress Note ---
Assessment/Plan Problem List: (1) Acute renal failure ICD Codes: N17.9 - Acute kidney failure, unspecified SNOMED: 08964779 Qualifiers: Qualified Codes: N17.9 - Acute kidney failure, unspecified (2) Cellulitis ICD Codes: L03.90 - Cellulitis, unspecified SNOMED: 855718382 Qualifiers: Qualified Codes: L03.90 - Cellulitis, unspecified (3) Abscess ICD Codes: L02.91 - Abscess SNOMED: 395575592 (4) Generalized weakness ICD Codes: R53.1 - Weakness SNOMED: 09499150 (5) Abscess of hip, left ICD Codes: L02.416 - Cutaneous abscess of left lower limb SNOMED: 308643 (6) right hip wound (7) Bilateral edema of lower extremity ICD Codes: R60.0 - Localized edema SNOMED: 920405650 (8) Paraplegia ICD Codes: G82.20 - Paraplegia SNOMED: 86769679 Status: stable, not improved, unchanged Assessment/Plan iv abx per id follow up cultures wound care ivf resumed check renal martha monitor labs pain rx added hydrocortisone ointment Subjective ROS Limited/Unobtainable: No Constitutional: Reports: malaise, weakness HEENT: Reports: no symptoms Cardiovascular: Reports: no symptoms Respiratory: Reports: no symptoms Gastrointestinal/Abdominal: Reports: no symptoms Genitourinary: Reports: no symptoms 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: Reports: no symptoms Endocrine: Reports: no symptoms Hematologic/Lymphatic: Reports: no symptoms Allergies: Coded Allergies: CEFTRIAXONE (Verified Allergy, Intermediate, SOB, HR-140bpm, face swollen , pt became red, 10/24/15) CODEINE (Verified Allergy, Intermediate, SWELLING, 01/03/11) LATEX (Verified Allergy, Intermediate, SWELLING, 01/03/11) PIPERACILLIN (Verified Allergy, Intermediate, Itching, 08/29/15) 08/29/15 tolerates Ceftaroline TAZOBACTAM (Verified Allergy, Intermediate, Itching, 01/29/15) VANCOMYCIN (Verified Allergy, Mild, 07/15/14) ASPARAGINASE (Verified Allergy, Unknown, 01/28/14) IRON (Verified Allergy, Unknown, 01/28/14) All Systems: reviewed and negative except above Subjective better today. less anxious. no chest pain pain controlled. labs noted. bp better. not on ivf? wants hydrocortisone oint. still waiting for renal martha Objective Last 24 Hour Vital Signs Date Time Temp Pulse Resp B/P Pulse Ox O2 Delivery O2 Flow Rate FiO2 03/27/16 04:00 97.0 20 90/48 100 03/27/16 03:45 96.8 03/27/16 00:00 96.8 83 20 91/51 100 Room Air 03/26/16 20:17 97.3 91 20 91/58 100 Room Air 03/26/16 16:00 98.4 88 22 85/55 98 Room Air 03/26/16 12:30 20 95/48 95 Room Air 03/26/16 12:03 97.9 93 20 88/42 99 Room Air 03/26/16 08:39 97.6 99 20 90/42 100 Room Air Intake and Output 03/26/16 03/27/16 19:00 07:00 Intake Total 880 ml 1470 ml Balance 880 ml 1470 ml Intake Oral 480 ml 1120 ml IV Total 400 ml 350 ml # Voids 23 Laboratory Tests 03/27/16 04:00: White Blood Count 16.2H, Red Blood Count 2.91L, Hemoglobin 7.7L, Hematocrit 25.0L, Mean Corpuscular Volume 86, Mean Corpuscular Hemoglobin 26.3L, Mean Corpuscular Hemoglobin Concent 30.6L, Red Cell Distribution Width 16.1H, Platelet Count 483H, Mean Platelet Volume 6.9, Neutrophils (%) (Auto) , Lymphocytes (%) (Auto) , Monocytes (%) (Auto) , Eosinophils (%) (Auto) , Basophils (%) (Auto) , Neutrophils % (Manual) [Pending], Lymphocytes % (Manual) [Pending], Platelet Estimate [Pending], Platelet Morphology [Pending], Sodium Level 128L, Potassium Level 3.9, Chloride Level 88L, Carbon Dioxide Level 21, Anion Gap 19H, Blood Urea Nitrogen 40H, Creatinine 2.2H, Estimat Glomerular Filtration Rate 29.7, Glucose Level 105, Calcium Level 8.1L, Total Bilirubin 0.4 , Aspartate Amino Transf (AST/SGOT) < 5L, Alanine Aminotransferase (ALT/SGPT) 5 , Alkaline Phosphatase 163H, Total Protein 6.9, Albumin 2.0L, Globulin 4.9, Albumin/Globulin Ratio 0.4L Height (Feet): 5 Height (Inches): 5.00 Weight (Pounds): 220 Objective General Appearance: WD/WN, alert Neck: supple Cardiovascular: normal rate, regular rhythm Respiratory/Chest: chest wall non-tender, lungs clear, normal breath sounds, no respiratory distress Abdomen: normal bowel sounds, non tender, soft, no organomegaly Edema: no edema noted Arm (L), no edema noted Arm (R), no edema noted Leg (L), no edema noted Leg (R), no edema noted Pedal (L), no edema noted Pedal (R), no edema noted Generalized Neurologic: motor weakness Skin: other - sacral and bilateral hip wounds BONG BRUNNER Mar 27, 2016 07:58
[2016-03-27 08:34] VITALS: BP 108/53
[2016-03-27] MEDS: Heparin 5000 units/ml inj SUBQ SCH ×2 (09:00→21:00)
--- NOTE | 2016-03-27 09:03 | Diagnostic Imaging Report ---
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 The left upper extremity was prepped with alcohol. All elements of maximal sterile barrier technique were followed including usage of a cap, mask, sterile gown, sterile gloves, hand hygiene and a large sterile sheet. Sonographic evaluation of the upper extremity was performed demonstrating a patent and compressible basilic vein. Access was obtained under real-time ultrasound guidance and digital image was saved and archived. An .018 wire was introduced. Needle exchanged for a 5 Argentine peel-away sheath. Measurements were obtained. A 5 Argentine dual-lumen Power PICC line catheter was cut to 5 cm and introduced over the wire. Peel-away sheath and wire were removed.Catheter was secured to the skin using 2-0 Prolene suture. Both ports aspirate and flush easily. Fluoroscopic Images show distal tip in the superior vena cava. Total fluoroscopic time 0.2 minutes Impression: Successful placement of an upper extremity PICC line catheter
[2016-03-27 09:21] LABS: BAND NEUTROPHILS % (MANUAL) 5 % (0-8); EOSINOPHILS % (MANUAL) 1 % (0-3); LYMPHOCYTES % (MANUAL) 15 % (20-45); NEUTROPHILS % (MANUAL) 76 % (45-75); TOTAL CELLS COUNTED 100
[2016-03-27 09:22] LABS: ANISOCYTOSIS 1+; BASOPHILS % (MANUAL) 0 % (0-2); HYPOCHROMASIA 2+; PLATELET ESTIMATE INCREASED; PLATELET MORPHOLOGY NORMAL
[2016-03-27] MEDS ORDERED: Hydrocortisone 2.5% Oint 30gm TOPIC PRN (10:00)
[2016-03-27 12:00] VITALS: BP 104/55
--- NOTE | 2016-03-27 12:16 | Diagnostic Imaging Report ---
Indication: Acute renal failure Comparison: 05/05/2015 renal ultrasound The right kidney measures 10.6 cm in length and the left 11.4 cm. Both kidneys are appear normal in size, shape and echogenic texture. No hydronephrosis. No perinephric fluid collections. No renal cortical thinning. Nonobstructing calcification is seen in the midpole the left kidney measuring 5 mm. Visualized portion of the IVC are normal. Impression: Both kidneys appear normal without hydronephrosis. Focal calcification/nonobstructing stone is seen in the left kidney measuring 5 mm.
--- NOTE | 2016-03-27 13:36 | Infectious Diseases Prog Note ---
Assessment/Plan Assessment/Plan ASSESSMENT AND PLAN: 1. staph aureus/gram neg/strep bilateral hip/thigh wound infection, strep bacteremia, sepsis, sirs, leukocytosis, fevers - leukocytosis and fever improved 2. Acute kidney injury - mild decrease in creatinine 3. Anemia. 4. Weight loss 5. History of osteoarthritis and treatment. 6. Colostomy. 7. Paraplegia. 8. Anemia. 9. ? diabetes - patient denies dm hx, bs elevated only with infection per pt 10. Chronic pain management and chronic pain syndrome. 11. History of cholelithiasis. 12. Pain management for primary. 13. Multiple allergies to asparaginase, Rocephin, codeine, iron, Latex, piperacillin, tazobactam, and vancomycin. 14. wound care per protocol and surgery 15. The case was discussed with RN. 16. The case was discussed with the patient. 17. fh-nc, sh-negative, mar noted Subjective Constitutional: Reports: fatigue, fever - resolved HEENT: Denies: congestion Respiratory: Denies: shortness of breath Cardiovascular: Denies: chest pain Gastrointestinal/Abdominal: Denies: diarrhea, nausea, vomiting Genitourinary: Reports: other - no bay Neurologic: Reports: weakness, Denies: headache Psychiatric: Denies: depression Skin: Denies: rash Hematologic: Denies: bleeding Musculoskeletal: Denies: pain Allergies: Coded Allergies: CEFTRIAXONE (Verified Allergy, Intermediate, SOB, HR-140bpm, face swollen , pt became red, 10/24/15) CODEINE (Verified Allergy, Intermediate, SWELLING, 01/03/11) LATEX (Verified Allergy, Intermediate, SWELLING, 01/03/11) PIPERACILLIN (Verified Allergy, Intermediate, Itching, 08/29/15) 08/29/15 tolerates Ceftaroline TAZOBACTAM (Verified Allergy, Intermediate, Itching, 01/29/15) VANCOMYCIN (Verified Allergy, Mild, 07/15/14) ASPARAGINASE (Verified Allergy, Unknown, 01/28/14) IRON (Verified Allergy, Unknown, 01/28/14) Objective Vital Signs Last 24 Hour Vital Signs Date Time Temp Pulse Resp B/P Pulse Ox O2 Delivery O2 Flow Rate FiO2 03/27/16 08:34 97.4 85 20 108/53 100 Room Air 03/27/16 04:00 97.0 20 90/48 100 03/27/16 03:45 96.8 03/27/16 00:00 96.8 83 20 91/51 100 Room Air 03/26/16 20:17 97.3 91 20 91/58 100 Room Air 03/26/16 16:00 98.4 88 22 85/55 98 Room Air Height (Feet): 5 Height (Inches): 5.00 Weight (Pounds): 220 General Appearance: no acute distress HEENT: normocephalic, atraumatic, anicteric, mucous membranes moist, PERRL, EOMI, pharynx normal, supple, no JVD Respiratory/Chest: lungs clear, normal breath sounds, no respiratory distress, no accessory muscle use Cardiovascular: normal rate, regular rhythm, no gallop/murmur, no JVD Abdomen: normal bowel sounds, soft, non tender, no organomegaly, non distended , other - + colostomy Genitourinary: other - no bay Extremities: no cyanosis Skin: no rash, other - wounds covered 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, alert, oriented x 3, motor weakness Lymphatic: no neck adenopathy Musculoskeletal: normal muscle bulk Objective chest x-ray - negative Microbiology Date/Time Source Procedure Growth Status 03/25/16 19:30 Blood Blood Culture - Preliminary Streptococcus Pyogenes Grp A Resulted 03/25/16 19:00 Blood Blood Culture - Preliminary NO GROWTH AFTER 24 HOURS Resulted 03/25/16 21:50 Hip Left Gram Stain - Final Resulted 03/25/16 21:50 Wound Culture - Preliminary Gram Negative Bacillus 1 Staphylococcus Aureus Streptococcus Group A Resulted 03/25/16 21:50 Hip Right Gram Stain - Final Resulted 03/25/16 21:50 Wound Culture - Preliminary Gram Negative Bacillus 1 Staphylococcus Aureus Streptococcus Group A Resulted Laboratory Tests Test 03/27/16 04:00 White Blood Count 16.2 K/UL (4.8-10.8) H Red Blood Count 2.91 M/UL (4.20-5.40) L Hemoglobin 7.7 G/DL (12.0-16.0) L Hematocrit 25.0 % (37.0-47.0) L Mean Corpuscular Volume 86 FL (80-99) Mean Corpuscular Hemoglobin 26.3 PG (27.0-31.0) L Mean Corpuscular Hemoglobin Concent 30.6 G/DL (32.0-36.0) L Red Cell Distribution Width 16.1 % (11.6-14.8) H Platelet Count 483 K/UL (150-450) H Mean Platelet Volume 6.9 FL (6.5-10.1) Neutrophils (%) (Auto) % (45.0-75.0) Lymphocytes (%) (Auto) % (20.0-45.0) Monocytes (%) (Auto) % (1.0-10.0) Eosinophils (%) (Auto) % (0.0-3.0) Basophils (%) (Auto) % (0.0-2.0) Differential Total Cells Counted 100 Neutrophils % (Manual) 76 % (45-75) H Lymphocytes % (Manual) 15 % (20-45) L Monocytes % (Manual) 3 % (1-10) Eosinophils % (Manual) 1 % (0-3) Basophils % (Manual) 0 % (0-2) Band Neutrophils 5 % (0-8) Platelet Estimate Increased H Platelet Morphology Normal Hypochromasia 2+ Anisocytosis 1+ Sodium Level 128 mEQ/L (135-145) L Potassium Level 3.9 mEQ/L (3.4-4.9) Chloride Level 88 mEQ/L (98-107) L Carbon Dioxide Level 21 mEQ/L (20-30) Anion Gap 19 (5-15) H Blood Urea Nitrogen 40 mg/dL (7-23) H Creatinine 2.2 mg/dL (0.5-0.9) H Estimat Glomerular Filtration Rate 29.7 mL/min (>60) Glucose Level 105 mg/dL (74-106) Calcium Level 8.1 mg/dL (8.6-10.2) L Total Bilirubin 0.4 mg/dL (0.0-1.2) Aspartate Amino Transf (AST/SGOT) < 5 U/L (5-40) L Alanine Aminotransferase (ALT/SGPT) 5 U/L (3-33) Alkaline Phosphatase 163 U/L (35-104) H Total Protein 6.9 g/dL (6.6-8.7) Albumin 2.0 g/dL (3.5-5.2) L Globulin 4.9 g/dL Albumin/Globulin Ratio 0.4 (1.0-2.7) L Current Medications Medications (Trade) Dose Ordered Sig/Pineda Route PRN Reason Start Time Stop Time Status Last Admin Dose Admin Acetaminophen (Tylenol) 650 mg Q4H PRN ORAL Mild Pain/Temp > 100.5 03/24/16 17:00 04/23/16 16:59 Aztreonam 1 gm/ Dextrose 50 ml @ 100 mls/hr Q8HR@0400,1200,2000 IVPB 03/25/16 20:00 04/01/16 19:59 03/27/16 03:13 Diphenhydramine HCl (Benadryl) 25 mg Q4H PRN IVP Itching 03/24/16 17:00 04/23/16 16:59 03/27/16 13:28 Heparin Sodium (Porcine) (Heparin 5000 units/ml) 5,000 units EVERY 12 HOURS SUBQ 03/24/16 21:00 04/23/16 20:59 03/26/16 21:49 Hydrocortisone (Hydrocortisone) 1 applic EVERY 6 HOURS PRN TOPIC Itching 03/27/16 10:00 04/26/16 09:59 Hydromorphone HCl (Dilaudid) 2 mg Q4H PRN IVP SEVERE PAIN 03/24/16 17:03 03/31/16 16:59 03/27/16 13:29 Linezolid 300 ml @ 300 mls/hr EVERY 12 HOURS IVPB 03/25/16 21:00 04/01/16 20:59 03/27/16 10:09 Lorazepam 1 mg 1 mg Q4H PRN IV For Anxiety 03/25/16 08:00 04/01/16 07:59 03/26/16 07:01 Metronidazole 100 ml @ 100 mls/hr Q8HR IVPB 03/25/16 22:00 04/01/16 21:59 03/27/16 06:00 Ondansetron HCl (Zofran) 4 mg Q4H PRN IVP Nausea & Vomiting 03/24/16 17:30 04/23/16 17:29 03/26/16 14:18 Sodium Chloride (Sodium Chloride 1000ml bag) 1,000 ml @ 75 mls/hr [id number] IV 03/27/16 08:00 04/26/16 07:59 03/27/16 10:08 GRZEGORZ MARTINEZ Mar 27, 2016 13:36
[2016-03-27 16:06] VITALS: BP 99/52
[2016-03-27 20:00] VITALS: BP 99/61
[2016-03-28] VITALS (7 sets, daily range): BP systolic 82–97; BP diastolic 48–56
[2016-03-28] MEDS: metroNIDAZOLE 500mg 100 ML IVPB SCH ×3 (00:21→18:10)
[2016-03-28] MEDS: DiphenhydrAMINE 50mg/ml Inj IVP PRN ×5 (04:19→21:18)
--- NOTE | 2016-03-28 08:05 | General Progress Note ---
Assessment/Plan Problem List: (1) Acute renal failure ICD Codes: N17.9 - Acute kidney failure, unspecified SNOMED: 49366272 Qualifiers: Qualified Codes: N17.9 - Acute kidney failure, unspecified (2) Cellulitis ICD Codes: L03.90 - Cellulitis, unspecified SNOMED: 507734981 Qualifiers: Qualified Codes: L03.90 - Cellulitis, unspecified (3) Abscess ICD Codes: L02.91 - Abscess SNOMED: 487481447 (4) Generalized weakness ICD Codes: R53.1 - Weakness SNOMED: 63783484 (5) Abscess of hip, left ICD Codes: L02.416 - Cutaneous abscess of left lower limb SNOMED: 961673 (6) right hip wound (7) Bilateral edema of lower extremity ICD Codes: R60.0 - Localized edema SNOMED: 488361428 (8) Paraplegia ICD Codes: G82.20 - Paraplegia SNOMED: 47293666 Assessment/Plan iv abx per id follow up cultures wound care ivf resumed check renal martha monitor labs- pending today pain rx monitor for bleeding Subjective ROS Limited/Unobtainable: No Constitutional: Reports: malaise, weakness HEENT: Reports: no symptoms Cardiovascular: Reports: no symptoms Respiratory: Reports: no symptoms Gastrointestinal/Abdominal: Reports: no symptoms 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: Reports: pre-existing deficit Endocrine: Reports: no symptoms Hematologic/Lymphatic: Reports: anemia Allergies: Coded Allergies: CEFTRIAXONE (Verified Allergy, Intermediate, SOB, HR-140bpm, face swollen , pt became red, 10/24/15) CODEINE (Verified Allergy, Intermediate, SWELLING, 01/03/11) LATEX (Verified Allergy, Intermediate, SWELLING, 01/03/11) PIPERACILLIN (Verified Allergy, Intermediate, Itching, 08/29/15) 08/29/15 tolerates Ceftaroline TAZOBACTAM (Verified Allergy, Intermediate, Itching, 01/29/15) VANCOMYCIN (Verified Allergy, Mild, 07/15/14) ASPARAGINASE (Verified Allergy, Unknown, 01/28/14) IRON (Verified Allergy, Unknown, 01/28/14) All Systems: reviewed and negative except above Subjective no events. s/p 2 units prbcs. no bleeding noted. remains on iv abx Objective Last 24 Hour Vital Signs Date Time Temp Pulse Resp B/P Pulse Ox O2 Delivery O2 Flow Rate FiO2 03/28/16 04:50 96.4 03/28/16 04:00 96.4 70 20 93/53 98 Room Air 03/28/16 00:00 97.3 71 20 82/49 97 Room Air 03/27/16 20:00 97.7 85 20 99/61 98 Room Air 03/27/16 16:06 97.9 85 20 99/52 100 Room Air 03/27/16 12:00 98.0 82 20 104/55 100 Room Air 03/27/16 08:34 97.4 85 20 108/53 100 Room Air Intake and Output 03/27/16 03/28/16 19:00 07:00 Intake Total 780 ml 1415 ml Balance 780 ml 1415 ml Intake Oral 480 ml 490 ml IV Total 300 ml 625 ml Blood Product 300 ml # Voids 2 3 Height (Feet): 5 Height (Inches): 5.00 Weight (Pounds): 220 Objective General Appearance: WD/WN, alert Neck: supple Cardiovascular: normal rate, regular rhythm Respiratory/Chest: chest wall non-tender, lungs clear, normal breath sounds, no respiratory distress Abdomen: normal bowel sounds, non tender, soft, no organomegaly Edema: no edema noted Arm (L), no edema noted Arm (R), no edema noted Leg (L), no edema noted Leg (R), no edema noted Pedal (L), no edema noted Pedal (R), no edema noted Generalized Neurologic: motor weakness Skin: other - sacral and bilateral hip wounds BONG BRUNNER Mar 28, 2016 08:05
[2016-03-28] MEDS: D5W IVPB SCH ×3 (08:14→23:53)
[2016-03-28] MEDS: AZTREONAM IVPB SCH ×3 (08:14→23:53)
[2016-03-28] MEDS: Heparin 5000 units/ml inj SUBQ SCH ×2 (09:00→21:17)
[2016-03-28 09:34] LABS: BASOPHILS % (AUTO) 0.3 % (0.0-2.0); EOSINOPHILS % (AUTO) 1.4 % (0.0-3.0); MEAN CORPUSCULAR HEMOGLOBIN 27.3 PG (27.0-31.0); MEAN CORPUSCULAR HGB CONC 31.3 G/DL (32.0-36.0); MEAN CORPUSCULAR VOLUME 87 FL (80-99); MEAN PLATELET VOLUME 6.8 FL (6.5-10.1); MONOCYTES % (AUTO) 2.9 % (1.0-10.0); NEUTROPHILS % (AUTO) 81.4 % (45.0-75.0); PLATELET COUNT 429 K/UL (150-450); RED BLOOD COUNT 3.75 M/UL (4.20-5.40); RED CELL DISTRIBUTION WIDTH 14.9 % (11.6-14.8); WHITE BLOOD COUNT 15.4 K/UL (4.8-10.8)
[2016-03-28 10:18] LABS: ALANINE AMINOTRANSFERASE 5 U/L (3-33); ALBUMIN/GLOBULIN RATIO 0.4 (1.0-2.7); ANION GAP 15 (5-15); ASPARTATE AMINO TRANSFERASE < 5 U/L (5-40); CALCIUM 8.1 mg/dL (8.6-10.2); CARBON DIOXIDE 22 mEQ/L (20-30); CHLORIDE 92 mEQ/L (98-107); CREATININE 1.7 mg/dL (0.5-0.9); GLOMERULAR FILTRATION RATE 39.9 mL/min (>60); HEMOLYSIS 3; POTASSIUM 3.7 mEQ/L (3.4-4.9); SODIUM 129 mEQ/L (135-145); TOTAL PROTEIN 7.1 g/dL (6.6-8.7)
[2016-03-28] MEDS ORDERED: NS 275ml ONE (22:41)
[2016-03-28] MEDS ORDERED: Tubing Blood Filter IV ONE (22:41)
[2016-03-29] MEDS: metroNIDAZOLE 500mg 100 ML IVPB SCH ×2 (00:25→09:12)
[2016-03-29] MEDS: DiphenhydrAMINE 50mg/ml Inj IVP PRN ×6 (01:28→22:39)
[2016-03-29 04:00] VITALS: BP 88/42
[2016-03-29 04:40] VITALS: BP 98/51
--- NOTE | 2016-03-29 07:59 | General Progress Note ---
Assessment/Plan Problem List: (1) Acute renal failure ICD Codes: N17.9 - Acute kidney failure, unspecified SNOMED: 70911297 Qualifiers: Qualified Codes: N17.9 - Acute kidney failure, unspecified (2) Cellulitis ICD Codes: L03.90 - Cellulitis, unspecified SNOMED: 360824440 Qualifiers: Qualified Codes: L03.90 - Cellulitis, unspecified (3) Abscess ICD Codes: L02.91 - Abscess SNOMED: 393821726 (4) Generalized weakness ICD Codes: R53.1 - Weakness SNOMED: 73549308 (5) Abscess of hip, left ICD Codes: L02.416 - Cutaneous abscess of left lower limb SNOMED: 516808 (6) right hip wound (7) Bilateral edema of lower extremity ICD Codes: R60.0 - Localized edema SNOMED: 952919536 (8) Paraplegia ICD Codes: G82.20 - Paraplegia SNOMED: 08309745 Status: stable, progressing Assessment/Plan iv abx per id follow up cultures wound care ivf resumed renal martha negative for hydro monitor labs- pending today pain rx monitor for bleeding flagyl for cdiff Subjective ROS Limited/Unobtainable: No Constitutional: Reports: malaise, weakness HEENT: Reports: no symptoms Cardiovascular: Reports: no symptoms Respiratory: Reports: no symptoms Gastrointestinal/Abdominal: Reports: diarrhea Genitourinary: Reports: no symptoms 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: Reports: pre-existing deficit Endocrine: Reports: no symptoms Hematologic/Lymphatic: Reports: anemia Allergies: Coded Allergies: CEFTRIAXONE (Verified Allergy, Intermediate, SOB, HR-140bpm, face swollen , pt became red, 10/24/15) CODEINE (Verified Allergy, Intermediate, SWELLING, 01/03/11) LATEX (Verified Allergy, Intermediate, SWELLING, 01/03/11) PIPERACILLIN (Verified Allergy, Intermediate, Itching, 08/29/15) 08/29/15 tolerates Ceftaroline TAZOBACTAM (Verified Allergy, Intermediate, Itching, 01/29/15) VANCOMYCIN (Verified Allergy, Mild, 07/15/14) ASPARAGINASE (Verified Allergy, Unknown, 01/28/14) IRON (Verified Allergy, Unknown, 01/28/14) All Systems: reviewed and negative except above Subjective no events. +diarrhea from colostomy. cdiff +. now on flagyl. renal fxn improving on ivf. still hypotensive. wbc trending down. Objective Last 24 Hour Vital Signs Date Time Temp Pulse Resp B/P Pulse Ox O2 Delivery O2 Flow Rate FiO2 03/29/16 04:40 96.4 58 20 98/51 100 Room Air 03/29/16 04:00 96.4 58 20 88/42 100 Room Air 03/28/16 21:48 96.4 03/28/16 21:27 96.4 69 19 87/51 99 Room Air 03/28/16 20:00 96.8 64 20 86/48 96 Room Air 03/28/16 16:00 97.8 71 20 89/52 99 Room Air 03/28/16 12:00 97.8 76 19 93/50 98 Room Air 03/28/16 08:00 96.8 71 20 97/56 99 Room Air Intake and Output 03/28/16 03/29/16 19:00 07:00 Intake Total 1270 ml 1770 ml Balance 1270 ml 1770 ml Intake Oral 420 ml 800 ml IV Total 850 ml 970 ml # Voids 1 3 Laboratory Tests 03/28/16 09:00: White Blood Count 15.4H, Red Blood Count 3.75L, Hemoglobin 10.2#L, Hematocrit 32.8#L, Mean Corpuscular Volume 87, Mean Corpuscular Hemoglobin 27.3, Mean Corpuscular Hemoglobin Concent 31.3L, Red Cell Distribution Width 14.9H, Platelet Count 429, Mean Platelet Volume 6.8, Neutrophils (%) (Auto) 81.4H, Lymphocytes (%) (Auto) 14.0L, Monocytes (%) (Auto) 2.9, Eosinophils (%) (Auto) 1.4, Basophils (%) (Auto) 0.3, Sodium Level 129L, Potassium Level 3.7, Chloride Level 92L, Carbon Dioxide Level 22, Anion Gap 15, Blood Urea Nitrogen 44H, Creatinine 1.7H, Estimat Glomerular Filtration Rate 39.9, Glucose Level 121H, Calcium Level 8.1L, Total Bilirubin 0.3, Aspartate Amino Transf (AST/SGOT) < 5L , Alanine Aminotransferase (ALT/SGPT) 5, Alkaline Phosphatase 133H, Total Protein 7.1, Albumin 2.2L, Globulin 4.9, Albumin/Globulin Ratio 0.4L Height (Feet): 5 Height (Inches): 5.00 Weight (Pounds): 220 Objective General Appearance: WD/WN, alert Neck: supple Cardiovascular: normal rate, regular rhythm Respiratory/Chest: chest wall non-tender, lungs clear, normal breath sounds, no respiratory distress Abdomen: normal bowel sounds, non tender, soft, no organomegaly Edema: no edema noted Arm (L), no edema noted Arm (R), no edema noted Leg (L), no edema noted Leg (R), no edema noted Pedal (L), no edema noted Pedal (R), no edema noted Generalized Neurologic: motor weakness Skin: other - sacral and bilateral hip wounds BONG BRUNNER Mar 29, 2016 07:59
[2016-03-29 08:00] VITALS: BP 100/43
[2016-03-29] MEDS: D5W IVPB SCH (08:20)
[2016-03-29] MEDS: AZTREONAM IVPB SCH (08:20)
[2016-03-29] MEDS: Heparin 5000 units/ml inj SUBQ SCH ×2 (09:00→22:41)
[2016-03-29 12:00] VITALS: BP 102/53
--- NOTE | 2016-03-29 15:21 | Infectious Diseases Prog Note ---
Assessment/Plan Assessment/Plan ASSESSMENT AND PLAN: 1. mrsa/acinetobacter/strep bilateral hip/thigh wound infection, mssa/strep bacteremia, c.diff. +, sepsis, sirs, leukocytosis, fevers - leukocytosis and fever improving - day # 4 abx, needs at least 2 weeks abx - change abx to zyvox and minocycline based on sensitivities - flagyl to treat c.diff - check surveillance blood cultures 2. Acute kidney injury - improving 3. Anemia. 4. Weight loss 5. History of osteoarthritis and treatment. 6. Colostomy. 7. Paraplegia. 8. Anemia. 9. ? diabetes - patient denies dm hx, bs elevated only with infection per pt 10. Chronic pain management and chronic pain syndrome. 11. History of cholelithiasis. 12. Pain management for primary. 13. Multiple allergies to asparaginase, Rocephin, codeine, iron, Latex, piperacillin, tazobactam, and vancomycin. 14. wound care per protocol and surgery 15. The case was discussed with RN. 16. The case was discussed with the patient. 17. fh-nc, sh-negative, mar noted Subjective Constitutional: Denies: fever HEENT: Denies: congestion Respiratory: Denies: shortness of breath Cardiovascular: Denies: chest pain Gastrointestinal/Abdominal: Reports: other - + colostomy, Denies: nausea, vomiting Genitourinary: Reports: other - no bay Neurologic: Reports: weakness, Denies: headache Psychiatric: Denies: depression Skin: Denies: rash Hematologic: Denies: bleeding Musculoskeletal: Denies: pain Allergies: Coded Allergies: CEFTRIAXONE (Verified Allergy, Intermediate, SOB, HR-140bpm, face swollen , pt became red, 10/24/15) CODEINE (Verified Allergy, Intermediate, SWELLING, 01/03/11) LATEX (Verified Allergy, Intermediate, SWELLING, 01/03/11) PIPERACILLIN (Verified Allergy, Intermediate, Itching, 08/29/15) 08/29/15 tolerates Ceftaroline TAZOBACTAM (Verified Allergy, Intermediate, Itching, 01/29/15) VANCOMYCIN (Verified Allergy, Mild, 07/15/14) ASPARAGINASE (Verified Allergy, Unknown, 01/28/14) IRON (Verified Allergy, Unknown, 01/28/14) Objective Vital Signs Last 24 Hour Vital Signs Date Time Temp Pulse Resp B/P Pulse Ox O2 Delivery O2 Flow Rate FiO2 03/29/16 12:00 97.5 74 18 102/53 98 Room Air 03/29/16 08:00 95.9 73 18 100/43 98 Room Air 03/29/16 04:40 96.4 58 20 98/51 100 Room Air 03/29/16 04:00 96.4 58 20 88/42 100 Room Air 03/28/16 21:48 96.4 03/28/16 21:27 96.4 69 19 87/51 99 Room Air 03/28/16 20:00 96.8 64 20 86/48 96 Room Air 03/28/16 16:00 97.8 71 20 89/52 99 Room Air Height (Feet): 5 Height (Inches): 5.00 Weight (Pounds): 220 General Appearance: no acute distress HEENT: normocephalic, atraumatic, anicteric, mucous membranes moist, PERRL, EOMI, pharynx normal, supple, no JVD Respiratory/Chest: lungs clear, normal breath sounds, no respiratory distress, no accessory muscle use Cardiovascular: normal rate, regular rhythm, no gallop/murmur, no JVD Abdomen: normal bowel sounds, soft, non tender, no organomegaly, non distended , other - + colostomy Genitourinary: other - no bay Extremities: no cyanosis Skin: no rash, other - wounds covered, + picc line 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3 PG (27.0-31.0) 27.3 PG (27.0-31.0) Mean Corpuscular Hemoglobin Concent 30.6 G/DL (32.0-36.0) 31.3 G/DL (32.0-36.0) Red Cell Distribution Width 16.1 % (11.6-14.8) 14.9 % (11.6-14.8) Platelet Count 483 K/UL (150-450) 429 K/UL (150-450) Mean Platelet Volume 6.9 FL (6.5-10.1) 6.8 FL (6.5-10.1) Neutrophils (%) (Auto) % (45.0-75.0) 81.4 % (45.0-75.0) Lymphocytes (%) (Auto) % (20.0-45.0) 14.0 % (20.0-45.0) Monocytes (%) (Auto) % (1.0-10.0) 2.9 % (1.0-10.0) Eosinophils (%) (Auto) % (0.0-3.0) 1.4 % (0.0-3.0) Basophils (%) (Auto) % (0.0-2.0) 0.3 % (0.0-2.0) Differential Total Cells Counted 100 Neutrophils % (Manual) 76 % (45-75) Lymphocytes % (Manual) 15 % (20-45) Monocytes % (Manual) 3 % (1-10) Eosinophils % (Manual) 1 % (0-3) Basophils % (Manual) 0 % (0-2) Band Neutrophils 5 % (0-8) Platelet Estimate Increased Platelet Morphology Normal Hypochromasia 2+ Anisocytosis 1+ Sodium Level 128 mEQ/L (135-145) 129 mEQ/L (135-145) Potassium Level 3.9 mEQ/L (3.4-4.9) 3.7 mEQ/L (3.4-4.9) Chloride Level 88 mEQ/L (98-107) 92 mEQ/L (98-107) Carbon Dioxide Level 21 mEQ/L (20-30) 22 mEQ/L (20-30) Anion Gap 19 (5-15) 15 (5-15) Blood Urea Nitrogen 40 mg/dL (7-23) 44 mg/dL (7-23) Creatinine 2.2 mg/dL (0.5-0.9) 1.7 mg/dL (0.5-0.9) Estimat Glomerular Filtration Rate 29.7 mL/min (>60) 39.9 mL/min (>60) Glucose Level 105 mg/dL (74-106) 121 mg/dL (74-106) Calcium Level 8.1 mg/dL (8.6-10.2) 8.1 mg/dL (8.6-10.2) Total Bilirubin 0.4 mg/dL (0.0-1.2) 0.3 mg/dL (0.0-1.2) Aspartate Amino Transf (AST/SGOT) < 5 U/L (5-40) < 5 U/L (5-40) Alanine Aminotransferase (ALT/SGPT) 5 U/L (3-33) 5 U/L (3-33) Alkaline Phosphatase 163 U/L (35-104) 133 U/L (35-104) Total Protein 6.9 g/dL (6.6-8.7) 7.1 g/dL (6.6-8.7) Albumin 2.0 g/dL (3.5-5.2) 2.2 g/dL (3.5-5.2) Globulin 4.9 g/dL 4.9 g/dL Albumin/Globulin Ratio 0.4 (1.0-2.7) 0.4 (1.0-2.7) Current Medications Medications (Trade) Dose Ordered Sig/Pineda Route PRN Reason Start Time Stop Time Status Last Admin Dose Admin Acetaminophen (Tylenol) 650 mg Q4H PRN ORAL Mild Pain/Temp > 100.5 03/24/16 17:00 04/23/16 16:59 Aztreonam 1 gm/ Dextrose 50 ml @ 100 mls/hr Q8H IVPB 03/28/16 08:00 04/01/16 19:59 03/29/16 08:20 Diphenhydramine HCl (Benadryl) 25 mg Q4H PRN IVP Itching 03/24/16 17:00 04/23/16 16:59 03/29/16 13:34 Heparin Sodium (Porcine) (Heparin 5000 units/ml) 5,000 units EVERY 12 HOURS SUBQ 03/24/16 21:00 04/23/16 20:59 03/28/16 21:17 Hydrocortisone 1 applic 1 applic EVERY 6 HOURS PRN TOPIC Itching 03/27/16 10:00 04/26/16 09:59 03/28/16 00:22 Hydromorphone HCl (Dilaudid) 2 mg Q4H PRN IVP SEVERE PAIN 03/24/16 17:03 03/31/16 16:59 03/29/16 13:34 Linezolid 300 ml @ 300 mls/hr EVERY 12 HOURS IVPB 03/25/16 21:00 04/01/16 20:59 03/29/16 10:48 Lorazepam 1 mg 1 mg Q4H PRN IV For Anxiety 03/25/16 08:00 04/01/16 07:59 03/26/16 07:01 Metronidazole (Flagyl) 100 ml @ 100 mls/hr Q8H IVPB 03/28/16 08:30 04/01/16 21:59 03/29/16 09:12 Ondansetron HCl (Zofran) 4 mg Q4H PRN IVP Nausea & Vomiting 03/24/16 17:30 04/23/16 17:29 03/28/16 16:47 Sodium Chloride (Sodium Chloride 1000ml bag) 1,000 ml @ 75 mls/hr [id number] IV 03/27/16 08:00 04/26/16 07:59 03/29/16 00:25 GRZEGORZ MARTINEZ Mar 29, 2016 15:20
[2016-03-29 16:00] VITALS: BP 91/55
[2016-03-29 20:00] VITALS: BP 91/55
[2016-03-29] MEDS: metroNIDAZOLE 500mg tab ORAL SCH (22:39)
[2016-03-29] MEDS: MINOCYCLINE 50MG CAP ORAL SCH (22:40)
[2016-03-30] VITALS: BP 114/68
[2016-03-30] MEDS: DiphenhydrAMINE 50mg/ml Inj IVP PRN ×5 (02:54→22:36)
[2016-03-30 04:00] VITALS: BP 95/59
[2016-03-30] MEDS: metroNIDAZOLE 500mg tab ORAL SCH ×3 (06:27→22:24)
[2016-03-30 06:33] LABS: BASOPHILS % (AUTO) 0.2 % (0.0-2.0); EOSINOPHILS % (AUTO) 1.5 % (0.0-3.0); LYMPHOCYTES % (AUTO) 14.3 % (20.0-45.0); MEAN CORPUSCULAR HEMOGLOBIN 27.5 PG (27.0-31.0); MEAN CORPUSCULAR HGB CONC 31.4 G/DL (32.0-36.0); MEAN CORPUSCULAR VOLUME 87 FL (80-99); MEAN PLATELET VOLUME 6.2 FL (6.5-10.1); MONOCYTES % (AUTO) 2.8 % (1.0-10.0); NEUTROPHILS % (AUTO) 81.3 % (45.0-75.0); PLATELET COUNT 466 K/UL (150-450); RED BLOOD COUNT 3.33 M/UL (4.20-5.40); RED CELL DISTRIBUTION WIDTH 15.1 % (11.6-14.8)
[2016-03-30 06:56] LABS: ALANINE AMINOTRANSFERASE 5 U/L (3-33); ALBUMIN/GLOBULIN RATIO 0.4 (1.0-2.7); ASPARTATE AMINO TRANSFERASE < 5 U/L (5-40); CALCIUM 6.9 mg/dL (8.6-10.2); CARBON DIOXIDE 20 mEQ/L (20-30); CHLORIDE 104 mEQ/L (98-107); CREATININE 0.9 mg/dL (0.5-0.9); GLOMERULAR FILTRATION RATE > 60 mL/min (>60); HEMOLYSIS 1; POTASSIUM 3.4 mEQ/L (3.4-4.9); SODIUM 138 mEQ/L (135-145); TOTAL PROTEIN 5.8 g/dL (6.6-8.7)
[2016-03-30 06:57] LABS: ANION GAP 14 (5-15)
[2016-03-30 08:22] VITALS: BP 102/50
--- NOTE | 2016-03-30 08:44 | General Progress Note ---
Assessment/Plan Problem List: (1) Acute renal failure ICD Codes: N17.9 - Acute kidney failure, unspecified SNOMED: 63407228 Qualifiers: Qualified Codes: N17.9 - Acute kidney failure, unspecified (2) Cellulitis ICD Codes: L03.90 - Cellulitis, unspecified SNOMED: 241936533 Qualifiers: Qualified Codes: L03.90 - Cellulitis, unspecified (3) Abscess ICD Codes: L02.91 - Abscess SNOMED: 385848149 (4) Generalized weakness ICD Codes: R53.1 - Weakness SNOMED: 11631309 (5) Abscess of hip, left ICD Codes: L02.416 - Cutaneous abscess of left lower limb SNOMED: 924591 (6) right hip wound (7) Bilateral edema of lower extremity ICD Codes: R60.0 - Localized edema SNOMED: 593980853 (8) Paraplegia ICD Codes: G82.20 - Paraplegia SNOMED: 86955186 Assessment/Plan iv abx per id follow up cultures wound care ivf resumed renal martha negative for hydro monitor labs pain rx monitor for bleeding flagyl for cdiff dc planning when cleared by id Subjective ROS Limited/Unobtainable: No Constitutional: Reports: fever, malaise, weakness HEENT: Reports: no symptoms Cardiovascular: Reports: no symptoms Respiratory: Reports: no symptoms Gastrointestinal/Abdominal: Reports: no symptoms Genitourinary: Reports: no symptoms 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: Reports: pre-existing deficit Endocrine: Reports: no symptoms Hematologic/Lymphatic: Reports: anemia Allergies: Coded Allergies: CEFTRIAXONE (Verified Allergy, Intermediate, SOB, HR-140bpm, face swollen , pt became red, 10/24/15) CODEINE (Verified Allergy, Intermediate, SWELLING, 01/03/11) LATEX (Verified Allergy, Intermediate, SWELLING, 01/03/11) PIPERACILLIN (Verified Allergy, Intermediate, Itching, 08/29/15) 08/29/15 tolerates Ceftaroline TAZOBACTAM (Verified Allergy, Intermediate, Itching, 01/29/15) VANCOMYCIN (Verified Allergy, Mild, 07/15/14) ASPARAGINASE (Verified Allergy, Unknown, 01/28/14) IRON (Verified Allergy, Unknown, 01/28/14) All Systems: reviewed and negative except above Subjective no events. +diarrhea from colostomy. cdiff +. now on flagyl. no new complaints. feels "week." pn multiple abx Objective Last 24 Hour Vital Signs Date Time Temp Pulse Resp B/P Pulse Ox O2 Delivery O2 Flow Rate FiO2 03/30/16 08:22 97.4 73 20 102/50 94 Room Air 03/30/16 04:00 97.2 76 19 95/59 99 Room Air 03/30/16 00:00 97.0 87 21 114/68 86 Room Air 03/29/16 23:10 97.3 03/29/16 20:00 97.3 73 20 91/55 99 Room Air 03/29/16 16:00 97.5 65 21 91/55 100 Room Air 03/29/16 12:00 97.5 74 18 102/53 98 Room Air Intake and Output 03/29/16 03/30/16 19:00 07:00 Intake Total 980 ml 120 ml Output Total 0 ml Balance 980 ml 120 ml Intake Oral 480 ml 120 ml IV Total 500 ml Output Urine Total 0 ml # Voids 2 Laboratory Tests 03/30/16 06:00: White Blood Count 12.0H, Red Blood Count 3.33L, Hemoglobin 9.1L, Hematocrit 29.1L, Mean Corpuscular Volume 87, Mean Corpuscular Hemoglobin 27.5, Mean Corpuscular Hemoglobin Concent 31.4L, Red Cell Distribution Width 15.1H, Platelet Count 466H, Mean Platelet Volume 6.2L, Neutrophils (%) (Auto) 81.3H, Lymphocytes (%) (Auto) 14.3L, Monocytes (%) (Auto) 2.8, Eosinophils (%) (Auto) 1.5, Basophils (%) (Auto) 0.2, Sodium Level 138, Potassium Level 3.4, Chloride Level 104, Carbon Dioxide Level 20, Anion Gap 14, Blood Urea Nitrogen 29H, Creatinine 0.9, Estimat Glomerular Filtration Rate > 60, Glucose Level 96, Calcium Level 6.9L, Total Bilirubin 0.3, Aspartate Amino Transf (AST/SGOT) < 5L , Alanine Aminotransferase (ALT/SGPT) 5, Alkaline Phosphatase 100, Total Protein 5.8L, Albumin 1.7L, Globulin 4.1, Albumin/Globulin Ratio 0.4L Height (Feet): 5 Height (Inches): 5.00 Weight (Pounds): 220 Objective General Appearance: WD/WN, alert Neck: supple Cardiovascular: normal rate, regular rhythm Respiratory/Chest: chest wall non-tender, lungs clear, normal breath sounds, no respiratory distress Abdomen: normal bowel sounds, non tender, soft, no organomegaly Edema: no edema noted Arm (L), no edema noted Arm (R), no edema noted Leg (L), no edema noted Leg (R), no edema noted Pedal (L), no edema noted Pedal (R), no edema noted Generalized Neurologic: motor weakness Skin: other - sacral and bilateral hip wounds BONG BRUNNER Mar 30, 2016 08:44
[2016-03-30] MEDS: Heparin 5000 units/ml inj SUBQ SCH ×2 (09:00→22:26)
[2016-03-30] MEDS: MINOCYCLINE 50MG CAP ORAL SCH ×2 (09:59→22:24)
[2016-03-30 11:57] VITALS: BP 108/52
[2016-03-30 16:00] VITALS: BP 103/55
[2016-03-30 20:00] VITALS: BP 101/54
[2016-03-31 00:15] VITALS: BP 92/57
[2016-03-31] MEDS: DiphenhydrAMINE 50mg/ml Inj IVP PRN ×5 (02:34→22:54)
[2016-03-31 04:25] VITALS: BP 107/56
[2016-03-31] MEDS: metroNIDAZOLE 500mg tab ORAL SCH ×3 (05:00→21:05)
[2016-03-31 08:40] VITALS: BP 116/53
[2016-03-31] MEDS: MINOCYCLINE 50MG CAP ORAL SCH ×2 (08:55→21:05)
[2016-03-31] MEDS: Heparin 5000 units/ml inj SUBQ SCH ×2 (08:56→20:59)
[2016-03-31 12:00] VITALS: BP 108/55
--- NOTE | 2016-03-31 14:00 | Infectious Diseases Prog Note ---
Assessment/Plan Assessment/Plan ASSESSMENT AND PLAN: 1. mrsa/acinetobacter/strep bilateral hip/thigh wound infection, mssa/strep bacteremia, c.diff. 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 Chanel and case mgt and pt 2. Acute kidney injury - improving, cr wnl 3. Anemia. 4. Weight loss 5. History of osteoarthritis and treatment. 6. Colostomy. 7. Paraplegia. 8. Anemia. 9. ? diabetes - patient denies dm hx, bs elevated only with infection per pt 10. Chronic pain management and chronic pain syndrome. 11. History of cholelithiasis. 12. Pain management for primary. 13. Multiple allergies to asparaginase, Rocephin, codeine, iron, Latex, piperacillin, tazobactam, and vancomycin. 14. wound care per protocol and surgery 15. The case was discussed with RN. 16. The case was discussed with the patient. 17. fh-nc, sh-negative, mar noted Subjective Constitutional: Reports: fatigue, Denies: fever HEENT: Denies: congestion, coryza Respiratory: Denies: shortness of breath Cardiovascular: Denies: chest pain Genitourinary: Reports: other - no bay Neurologic: Denies: headache Psychiatric: Denies: depression Skin: Denies: rash Hematologic: Denies: bleeding Musculoskeletal: Denies: pain Allergies: Coded Allergies: CEFTRIAXONE (Verified Allergy, Intermediate, SOB, HR-140bpm, face swollen , pt became red, 10/24/15) CODEINE (Verified Allergy, Intermediate, SWELLING, 01/03/11) LATEX (Verified Allergy, Intermediate, SWELLING, 01/03/11) PIPERACILLIN (Verified Allergy, Intermediate, Itching, 08/29/15) 08/29/15 tolerates Ceftaroline TAZOBACTAM (Verified Allergy, Intermediate, Itching, 01/29/15) VANCOMYCIN (Verified Allergy, Mild, 07/15/14) ASPARAGINASE (Verified Allergy, Unknown, 01/28/14) IRON (Verified Allergy, Unknown, 01/28/14) Objective Vital Signs Last 24 Hour Vital Signs Date Time Temp Pulse Resp B/P Pulse Ox O2 Delivery O2 Flow Rate FiO2 03/31/16 08:40 97.3 76 20 116/53 94 Room Air 03/31/16 04:25 98.0 74 20 107/56 99 Room Air 03/31/16 00:15 97.0 72 20 92/57 99 Room Air 03/30/16 20:00 97.7 86 14 101/54 99 Room Air 03/30/16 16:00 97.5 71 14 103/55 98 Room Air Height (Feet): 5 Height (Inches): 5.00 Weight (Pounds): 220 General Appearance: no acute distress HEENT: normocephalic, atraumatic, anicteric, mucous membranes moist, PERRL, EOMI, pharynx normal, supple, no JVD Respiratory/Chest: lungs clear, normal breath sounds, no respiratory distress, no accessory muscle use Cardiovascular: normal rate, regular rhythm, no gallop/murmur, no JVD Abdomen: normal bowel sounds, soft, non tender, no organomegaly, non distended Genitourinary: other - no bay Extremities: no cyanosis Skin: no rash 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, alert, oriented x 3, responsive, motor weakness Lymphatic: no neck adenopathy Musculoskeletal: no effusion Objective chest x-ray - negative Microbiology Date/Time Source Procedure Growth Status 03/28/16 17:30 Blood Blood Culture - Preliminary Staphylococcus Sp Coag Neg Resulted Labs Test 03/30/16 06:00 White Blood Count 12.0 K/UL (4.8-10.8) Red Blood Count 3.33 M/UL (4.20-5.40) Hemoglobin 9.1 G/DL (12.0-16.0) Hematocrit 29.1 % (37.0-47.0) Mean Corpuscular Volume 87 FL (80-99) Mean Corpuscular Hemoglobin 27.5 PG (27.0-31.0) Mean Corpuscular Hemoglobin Concent 31.4 G/DL (32.0-36.0) Red Cell Distribution Width 15.1 % (11.6-14.8) Platelet Count 466 K/UL (150-450) Mean Platelet Volume 6.2 FL (6.5-10.1) Neutrophils (%) (Auto) 81.3 % (45.0-75.0) Lymphocytes (%) (Auto) 14.3 % (20.0-45.0) Monocytes (%) (Auto) 2.8 % (1.0-10.0) Eosinophils (%) (Auto) 1.5 % (0.0-3.0) Basophils (%) (Auto) 0.2 % (0.0-2.0) Sodium Level 138 mEQ/L (135-145) Potassium Level 3.4 mEQ/L (3.4-4.9) Chloride Level 104 mEQ/L (98-107) Carbon Dioxide Level 20 mEQ/L (20-30) Anion Gap 14 (5-15) Blood Urea Nitrogen 29 mg/dL (7-23) Creatinine 0.9 mg/dL (0.5-0.9) Estimat Glomerular Filtration Rate > 60 mL/min (>60) Glucose Level 96 mg/dL (74-106) Calcium Level 6.9 mg/dL (8.6-10.2) Total Bilirubin 0.3 mg/dL (0.0-1.2) Aspartate Amino Transf (AST/SGOT) < 5 U/L (5-40) Alanine Aminotransferase (ALT/SGPT) 5 U/L (3-33) Alkaline Phosphatase 100 U/L (35-104) Total Protein 5.8 g/dL (6.6-8.7) Albumin 1.7 g/dL (3.5-5.2) Globulin 4.1 g/dL Albumin/Globulin Ratio 0.4 (1.0-2.7) Current Medications Medications (Trade) Dose Ordered Sig/Pineda Route PRN Reason Start Time Stop Time Status Last Admin Dose Admin Acetaminophen (Tylenol) 650 mg Q4H PRN ORAL Mild Pain/Temp > 100.5 03/24/16 17:00 04/23/16 16:59 Diphenhydramine HCl (Benadryl) 25 mg Q4H PRN IVP Itching 03/24/16 17:00 04/23/16 16:59 03/31/16 13:03 Heparin Sodium (Porcine) (Heparin 5000 units/ml) 5,000 units EVERY 12 HOURS SUBQ 03/24/16 21:00 04/23/16 20:59 03/30/16 22:26 Hydrocortisone 1 applic 1 applic EVERY 6 HOURS PRN TOPIC Itching 03/27/16 10:00 04/26/16 09:59 03/28/16 00:22 Hydromorphone HCl (Dilaudid) 2 mg Q4H PRN IVP SEVERE PAIN 03/24/16 17:03 03/31/16 16:59 03/31/16 13:03 Linezolid (Zyvox) 300 ml @ 300 mls/hr EVERY 12 HOURS IVPB 03/29/16 21:00 04/05/16 20:59 03/31/16 08:52 Lorazepam 1 mg 1 mg Q4H PRN IV For Anxiety 03/25/16 08:00 04/01/16 07:59 03/26/16 07:01 Metronidazole (Flagyl) 500 mg EVERY 8 HOURS ORAL 03/29/16 22:00 04/05/16 21:59 03/31/16 13:04 Minocycline HCl (Minocin) 100 mg Q12HR ORAL 03/29/16 21:00 04/05/16 20:59 03/31/16 08:55 Ondansetron HCl (Zofran) 4 mg Q4H PRN IVP Nausea & Vomiting 03/24/16 17:30 04/23/16 17:29 03/31/16 13:03 Sodium Chloride (Sodium Chloride 1000ml bag) 1,000 ml @ 75 mls/hr [id number] IV 03/27/16 08:00 04/26/16 07:59 03/31/16 05:00 GRZEGORZ MARTINEZ Mar 31, 2016 14:00
--- NOTE | 2016-03-31 14:01 | General Progress Note ---
Assessment/Plan Problem List: (1) Acute renal failure ICD Codes: N17.9 - Acute kidney failure, unspecified SNOMED: 71937617 Qualifiers: Qualified Codes: N17.9 - Acute kidney failure, unspecified (2) Cellulitis ICD Codes: L03.90 - Cellulitis, unspecified SNOMED: 452110415 Qualifiers: Qualified Codes: L03.90 - Cellulitis, unspecified (3) Abscess ICD Codes: L02.91 - Abscess SNOMED: 677973015 (4) Generalized weakness ICD Codes: R53.1 - Weakness SNOMED: 33642763 (5) Abscess of hip, left ICD Codes: L02.416 - Cutaneous abscess of left lower limb SNOMED: 120594 (6) right hip wound (7) Bilateral edema of lower extremity ICD Codes: R60.0 - Localized edema SNOMED: 229012514 (8) Paraplegia ICD Codes: G82.20 - Paraplegia SNOMED: 75526530 Assessment/Plan iv abx per id follow up cultures wound care ivf resumed renal martha negative for hydro monitor labs pain rx monitor for bleeding flagyl for cdiff dc planning when cleared by id Subjective ROS Limited/Unobtainable: No Constitutional: Reports: malaise, weakness HEENT: Reports: no symptoms Cardiovascular: Reports: no symptoms Respiratory: Reports: no symptoms Gastrointestinal/Abdominal: Reports: no symptoms Genitourinary: Reports: no symptoms 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: Reports: pre-existing deficit Endocrine: Reports: no symptoms Hematologic/Lymphatic: Reports: no symptoms Allergies: Coded Allergies: CEFTRIAXONE (Verified Allergy, Intermediate, SOB, HR-140bpm, face swollen , pt became red, 10/24/15) CODEINE (Verified Allergy, Intermediate, SWELLING, 01/03/11) LATEX (Verified Allergy, Intermediate, SWELLING, 01/03/11) PIPERACILLIN (Verified Allergy, Intermediate, Itching, 08/29/15) 08/29/15 tolerates Ceftaroline TAZOBACTAM (Verified Allergy, Intermediate, Itching, 01/29/15) VANCOMYCIN (Verified Allergy, Mild, 07/15/14) ASPARAGINASE (Verified Allergy, Unknown, 01/28/14) IRON (Verified Allergy, Unknown, 01/28/14) All Systems: reviewed and negative except above Subjective no events. +diarrhea from colostomy. cdiff +. now on flagyl. no new complaints. feels "week." on multiple abx. d/w ID. Iv abx needed till tuesday, then transition to po Objective Last 24 Hour Vital Signs Date Time Temp Pulse Resp B/P Pulse Ox O2 Delivery O2 Flow Rate FiO2 03/31/16 08:40 97.3 76 20 116/53 94 Room Air 03/31/16 04:25 98.0 74 20 107/56 99 Room Air 03/31/16 00:15 97.0 72 20 92/57 99 Room Air 03/30/16 20:00 97.7 86 14 101/54 99 Room Air 03/30/16 16:00 97.5 71 14 103/55 98 Room Air Intake and Output 03/30/16 03/31/16 19:00 07:00 Intake Total 650 ml 450 ml Balance 650 ml 450 ml Intake Oral 650 ml IV Total 450 ml # Voids 2 Height (Feet): 5 Height (Inches): 5.00 Weight (Pounds): 220 Objective General Appearance: WD/WN, alert Neck: supple Cardiovascular: normal rate, regular rhythm Respiratory/Chest: chest wall non-tender, lungs clear, normal breath sounds, no respiratory distress Abdomen: normal bowel sounds, non tender, soft, no organomegaly Edema: no edema noted Arm (L), no edema noted Arm (R), no edema noted Leg (L), no edema noted Leg (R), no edema noted Pedal (L), no edema noted Pedal (R), no edema noted Generalized Neurologic: motor weakness Skin: other - sacral and bilateral hip wounds BONG BRUNNER Mar 31, 2016 14:01
[2016-03-31 16:02] VITALS: BP 114/53
[2016-03-31 20:00] VITALS: BP 104/58
[2016-04-01] VITALS (7 sets, daily range): BP systolic 100–114; BP diastolic 55–68
[2016-04-01] MEDS: DiphenhydrAMINE 50mg/ml Inj IVP PRN ×4 (03:48→19:10)
[2016-04-01] MEDS: metroNIDAZOLE 500mg tab ORAL SCH ×3 (05:08→21:51)
[2016-04-01 07:05] LABS: MEAN CORPUSCULAR HEMOGLOBIN 27.1 PG (27.0-31.0); MEAN CORPUSCULAR HGB CONC 30.7 G/DL (32.0-36.0); MEAN CORPUSCULAR VOLUME 88 FL (80-99); MEAN PLATELET VOLUME 5.7 FL (6.5-10.1); PLATELET COUNT 329 K/UL (150-450); RED BLOOD COUNT 2.42 M/UL (4.20-5.40); RED CELL DISTRIBUTION WIDTH 16.2 % (11.6-14.8); WHITE BLOOD COUNT 7.6 K/UL (4.8-10.8)
[2016-04-01 07:23] LABS: ANION GAP 15 (5-15); CARBON DIOXIDE 19 mEQ/L (20-30); CHLORIDE 104 mEQ/L (98-107); CREATININE 0.8 mg/dL (0.5-0.9); GLOMERULAR FILTRATION RATE > 60 mL/min (>60); HEMOLYSIS 3; POTASSIUM 3.6 mEQ/L (3.4-4.9); SODIUM 138 mEQ/L (135-145)
[2016-04-01] MEDS: Heparin 5000 units/ml inj SUBQ SCH ×2 (09:00→21:50)
[2016-04-01] MEDS: MINOCYCLINE 50MG CAP ORAL SCH ×2 (09:12→21:51)
--- NOTE | 2016-04-01 09:41 | General Progress Note ---
Assessment/Plan Problem List: (1) Acute renal failure ICD Codes: N17.9 - Acute kidney failure, unspecified SNOMED: 08057140 Qualifiers: Qualified Codes: N17.9 - Acute kidney failure, unspecified (2) Cellulitis ICD Codes: L03.90 - Cellulitis, unspecified SNOMED: 471747568 Qualifiers: Qualified Codes: L03.90 - Cellulitis, unspecified (3) Abscess ICD Codes: L02.91 - Abscess SNOMED: 485333347 (4) Generalized weakness ICD Codes: R53.1 - Weakness SNOMED: 89727739 (5) Abscess of hip, left ICD Codes: L02.416 - Cutaneous abscess of left lower limb SNOMED: 892367 (6) right hip wound (7) Bilateral edema of lower extremity ICD Codes: R60.0 - Localized edema SNOMED: 251806553 (8) Paraplegia ICD Codes: G82.20 - Paraplegia SNOMED: 03539332 Status: stable Assessment/Plan iv abx per id pain rx transfuse check iron panel check stool ob cdiff rx wound care Subjective ROS Limited/Unobtainable: No Constitutional: Reports: malaise, weakness HEENT: Reports: no symptoms Cardiovascular: Reports: no symptoms Respiratory: Reports: no symptoms Gastrointestinal/Abdominal: Reports: no symptoms Genitourinary: Reports: no symptoms 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: Reports: pre-existing deficit Endocrine: Reports: no symptoms Hematologic/Lymphatic: Reports: anemia Allergies: Coded Allergies: CEFTRIAXONE (Verified Allergy, Intermediate, SOB, HR-140bpm, face swollen , pt became red, 10/24/15) CODEINE (Verified Allergy, Intermediate, SWELLING, 01/03/11) LATEX (Verified Allergy, Intermediate, SWELLING, 01/03/11) PIPERACILLIN (Verified Allergy, Intermediate, Itching, 08/29/15) 08/29/15 tolerates Ceftaroline TAZOBACTAM (Verified Allergy, Intermediate, Itching, 01/29/15) VANCOMYCIN (Verified Allergy, Mild, 07/15/14) ASPARAGINASE (Verified Allergy, Unknown, 01/28/14) IRON (Verified Allergy, Unknown, 01/28/14) All Systems: reviewed and negative except above Subjective anemic again. denies any bleeding. pain controlled. no fevers or chills Objective Last 24 Hour Vital Signs Date Time Temp Pulse Resp B/P Pulse Ox O2 Delivery O2 Flow Rate FiO2 04/01/16 08:40 98.2 77 20 100/55 94 Room Air 04/01/16 04:21 98.4 04/01/16 04:00 97.9 65 18 106/65 99 Room Air 04/01/16 00:00 98.4 75 18 114/68 99 Room Air 03/31/16 20:00 97.9 79 19 104/58 98 Room Air 03/31/16 16:02 98.4 72 20 114/53 94 Room Air 03/31/16 12:00 98.0 75 20 108/55 94 Room Air Intake and Output 03/31/16 04/01/16 19:00 07:00 Intake Total 1920 ml 1610 ml Balance 1920 ml 1610 ml Intake Oral 720 ml 560 ml IV Total 1200 ml 1050 ml # Bowel Movements 1 Laboratory Tests 04/01/16 04:00: White Blood Count 7.6, Red Blood Count 2.42L, Hemoglobin 6.6*L, Hematocrit 21.4L , Mean Corpuscular Volume 88, Mean Corpuscular Hemoglobin 27.1, Mean Corpuscular Hemoglobin Concent 30.7L, Red Cell Distribution Width 16.2H, Platelet Count 329, Mean Platelet Volume 5.7L, Neutrophils (%) (Auto) , Lymphocytes (%) (Auto) , Monocytes (%) (Auto) , Eosinophils (%) (Auto) , Basophils (%) (Auto) , Neutrophils % (Manual) [Pending], Lymphocytes % (Manual) [Pending], Platelet Estimate [Pending], Platelet Morphology [Pending], Sodium Level 138, Potassium Level 3.6, Chloride Level 104, Carbon Dioxide Level 19L, Anion Gap 15, Blood Urea Nitrogen 19, Creatinine 0.8, Estimat Glomerular Filtration Rate > 60, Glucose Level 74, Calcium Level 8.0L Height (Feet): 5 Height (Inches): 5.00 Weight (Pounds): 220 Objective General Appearance: WD/WN, alert Neck: supple Cardiovascular: normal rate, regular rhythm Respiratory/Chest: chest wall non-tender, lungs clear, normal breath sounds, no respiratory distress Abdomen: normal bowel sounds, non tender, soft, no organomegaly Edema: no edema noted Arm (L), no edema noted Arm (R), no edema noted Leg (L), no edema noted Leg (R), no edema noted Pedal (L), no edema noted Pedal (R), no edema noted Generalized Neurologic: motor weakness Skin: other - sacral and bilateral hip wounds BONG BRUNNER Apr 01, 2016 09:41
[2016-04-01 11:46] LABS: ANISOCYTOSIS 1+; BAND NEUTROPHILS % (MANUAL) 0 % (0-8); BASOPHILS % (MANUAL) 0 % (0-2); EOSINOPHILS % (MANUAL) 1 % (0-3); HYPOCHROMASIA 2+; LYMPHOCYTES % (MANUAL) 26 % (20-45); NEUTROPHILS % (MANUAL) 73 % (45-75); PLATELET ESTIMATE ADEQUATE; PLATELET MORPHOLOGY NORMAL; TOTAL CELLS COUNTED 100
[2016-04-01] MEDS ORDERED: Cathflo Alteplase 2mg Inj INJ ONE (22:00)
[2016-04-02 00:42] VITALS: BP 112/75
[2016-04-02] MEDS: DiphenhydrAMINE 50mg/ml Inj IVP PRN ×5 (00:55→19:24)
[2016-04-02 04:00] VITALS: BP 114/72
[2016-04-02] MEDS: metroNIDAZOLE 500mg tab ORAL SCH ×3 (05:30→21:54)
[2016-04-02 07:02] LABS: BASOPHILS % (AUTO) 0.2 % (0.0-2.0); EOSINOPHILS % (AUTO) 2.3 % (0.0-3.0); LYMPHOCYTES % (AUTO) 16.2 % (20.0-45.0); MEAN CORPUSCULAR HEMOGLOBIN 27.6 PG (27.0-31.0); MEAN CORPUSCULAR HGB CONC 31.2 G/DL (32.0-36.0); MEAN CORPUSCULAR VOLUME 88 FL (80-99); MEAN PLATELET VOLUME 5.7 FL (6.5-10.1); MONOCYTES % (AUTO) 3.3 % (1.0-10.0); PLATELET COUNT 407 K/UL (150-450); RED BLOOD COUNT 3.96 M/UL (4.20-5.40); RED CELL DISTRIBUTION WIDTH 15.1 % (11.6-14.8); WHITE BLOOD COUNT 10.4 K/UL (4.8-10.8)
[2016-04-02 07:12] LABS: HEMOLYSIS 7; IRON 94 ug/dL (37-145)
--- NOTE | 2016-04-02 08:08 | General Progress Note ---
Assessment/Plan Problem List: (1) Acute renal failure ICD Codes: N17.9 - Acute kidney failure, unspecified SNOMED: 64109881 Qualifiers: Qualified Codes: N17.9 - Acute kidney failure, unspecified (2) Cellulitis ICD Codes: L03.90 - Cellulitis, unspecified SNOMED: 938271300 Qualifiers: Qualified Codes: L03.90 - Cellulitis, unspecified (3) Abscess ICD Codes: L02.91 - Abscess SNOMED: 587308201 (4) Generalized weakness ICD Codes: R53.1 - Weakness SNOMED: 70678795 (5) Abscess of hip, left ICD Codes: L02.416 - Cutaneous abscess of left lower limb SNOMED: 848770 (6) right hip wound (7) Bilateral edema of lower extremity ICD Codes: R60.0 - Localized edema SNOMED: 495060277 (8) Paraplegia ICD Codes: G82.20 - Paraplegia SNOMED: 51670139 Status: stable, unchanged Assessment/Plan iv abx per id pain rx transfuse as needed check stool ob cdiff rx wound care dc planning when off abx and h/h stable Subjective ROS Limited/Unobtainable: No Constitutional: Reports: malaise, weakness HEENT: Reports: no symptoms Cardiovascular: Reports: no symptoms Respiratory: Reports: no symptoms Gastrointestinal/Abdominal: Reports: no symptoms Genitourinary: Reports: no symptoms 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: Reports: pre-existing deficit Endocrine: Reports: no symptoms Hematologic/Lymphatic: Reports: anemia Allergies: Coded Allergies: CEFTRIAXONE (Verified Allergy, Intermediate, SOB, HR-140bpm, face swollen , pt became red, 10/24/15) CODEINE (Verified Allergy, Intermediate, SWELLING, 01/03/11) LATEX (Verified Allergy, Intermediate, SWELLING, 01/03/11) PIPERACILLIN (Verified Allergy, Intermediate, Itching, 08/29/15) 08/29/15 tolerates Ceftaroline TAZOBACTAM (Verified Allergy, Intermediate, Itching, 01/29/15) VANCOMYCIN (Verified Allergy, Mild, 07/15/14) ASPARAGINASE (Verified Allergy, Unknown, 01/28/14) IRON (Verified Allergy, Unknown, 01/28/14) All Systems: reviewed and negative except above Subjective s/p 2 units prbcs. denies any bleeding. remains on iv abx. unclear source/ etiology for decreased h/h. c/o anxiety Objective Last 24 Hour Vital Signs Date Time Temp Pulse Resp B/P Pulse Ox O2 Delivery O2 Flow Rate FiO2 04/02/16 05:59 97.9 04/02/16 04:00 97.7 67 18 114/72 99 Room Air 04/02/16 00:42 97.9 66 18 112/75 98 Room Air 04/01/16 16:00 98.2 72 20 107/57 98 Room Air 04/01/16 13:12 97.9 89 20 110/60 94 Room Air 04/01/16 12:55 97.9 63 20 110/63 94 Room Air 04/01/16 12:03 97.8 75 20 106/56 94 Room Air 04/01/16 08:40 98.2 77 20 100/55 94 Room Air Intake and Output 04/01/16 04/02/16 19:00 07:00 Intake Total 1185 ml 1065 ml Balance 1185 ml 1065 ml Intake Oral 360 ml 240 ml IV Total 825 ml 825 ml # Voids 2 # Bowel Movements 1 Laboratory Tests 04/02/16 04:00: White Blood Count 10.4, Red Blood Count 3.96L, Hemoglobin 10.9#L, Hematocrit 35.1#L, Mean Corpuscular Volume 88, Mean Corpuscular Hemoglobin 27.6, Mean Corpuscular Hemoglobin Concent 31.2L, Red Cell Distribution Width 15.1H, Platelet Count 407, Mean Platelet Volume 5.7L, Neutrophils (%) (Auto) 78.0H, Lymphocytes (%) (Auto) 16.2L, Monocytes (%) (Auto) 3.3, Eosinophils (%) (Auto) 2.3, Basophils (%) (Auto) 0.2, Iron Level 94, Total Iron Binding Capacity , Percent Iron Saturation , Unsaturated Iron Binding Height (Feet): 5 Height (Inches): 5.00 Weight (Pounds): 220 Objective General Appearance: WD/WN, alert Neck: supple Cardiovascular: normal rate, regular rhythm Respiratory/Chest: chest wall non-tender, lungs clear, normal breath sounds, no respiratory distress Abdomen: normal bowel sounds, non tender, soft, no organomegaly Edema: no edema noted Arm (L), no edema noted Arm (R), no edema noted Leg (L), no edema noted Leg (R), no edema noted Pedal (L), no edema noted Pedal (R), no edema noted Generalized Neurologic: motor weakness Skin: other - sacral and bilateral hip wounds BONG BRUNNER Apr 02, 2016 08:08
[2016-04-02 08:36] VITALS: BP 110/68
[2016-04-02] MEDS: Heparin 5000 units/ml inj SUBQ SCH ×2 (09:00→21:00)
[2016-04-02] MEDS: MINOCYCLINE 50MG CAP ORAL SCH ×2 (09:15→21:54)
[2016-04-02 11:50] VITALS: BP 125/64
--- NOTE | 2016-04-02 15:29 | Infectious Diseases Prog Note ---
Assessment/Plan Assessment/Plan ASSESSMENT AND PLAN: 1. mrsa/acinetobacter/strep bilateral hip/thigh wound infection, mssa/strep bacteremia, c.diff. +, sepsis, sirs, leukocytosis, fevers - leukocytosis and fever improving - continue on iv zyvox and minocycline - day # 8/14, flagyl - # 8 (extend flagyl course at least 72 hrs after finish other abx to treat c.diff.) - scripts written for abx once stable for discharge - f/u + again - gram +, recent surveillance bc with associate editor which is contaminant - check bc id, recheck bc - picc line is new (03/25) and less likely infected, discontinue if picc line not needed 2. Acute kidney injury - improving, cr wnl 3. Anemia. 4. Weight loss 5. History of osteoarthritis and treatment. 6. Colostomy. 7. Paraplegia. 8. Anemia. 9. ? diabetes - patient denies dm hx, bs elevated only with infection per pt 10. Chronic pain management and chronic pain syndrome. 11. History of cholelithiasis. 12. Pain management for primary. 13. Multiple allergies to asparaginase, Rocephin, codeine, iron, Latex, piperacillin, tazobactam, and vancomycin. 14. wound care per protocol and surgery 15. The case was discussed with RN. 16. The case was discussed with the patient. 17. fh-nc, sh-negative, mar noted Subjective Constitutional: Reports: fatigue, Denies: fever Respiratory: Denies: shortness of breath Gastrointestinal/Abdominal: Denies: diarrhea, nausea, vomiting Genitourinary: Reports: other - no bay, Denies: frequency Neurologic: Reports: headache Psychiatric: Reports: depression Skin: Reports: rash Hematologic: Reports: bleeding Musculoskeletal: Reports: pain Allergies: Coded Allergies: CEFTRIAXONE (Verified Allergy, Intermediate, SOB, HR-140bpm, face swollen , pt became red, 10/24/15) CODEINE (Verified Allergy, Intermediate, SWELLING, 01/03/11) LATEX (Verified Allergy, Intermediate, SWELLING, 01/03/11) PIPERACILLIN (Verified Allergy, Intermediate, Itching, 08/29/15) 08/29/15 tolerates Ceftaroline TAZOBACTAM (Verified Allergy, Intermediate, Itching, 01/29/15) VANCOMYCIN (Verified Allergy, Mild, 07/15/14) ASPARAGINASE (Verified Allergy, Unknown, 01/28/14) IRON (Verified Allergy, Unknown, 01/28/14) Objective Vital Signs Last 24 Hour Vital Signs Date Time Temp Pulse Resp B/P Pulse Ox O2 Delivery O2 Flow Rate FiO2 04/02/16 14:21 98.0 04/02/16 11:50 98.0 60 20 125/64 99 Room Air 04/02/16 08:36 98.0 65 20 110/68 98 Room Air 04/02/16 04:00 97.7 67 18 114/72 99 Room Air 04/02/16 00:42 97.9 66 18 112/75 98 Room Air 04/01/16 16:00 98.2 72 20 107/57 98 Room Air Height (Feet): 5 Height (Inches): 5.00 Weight (Pounds): 220 General Appearance: no acute distress HEENT: normocephalic, atraumatic, anicteric, mucous membranes moist, PERRL, EOMI, pharynx normal, supple, no JVD Respiratory/Chest: lungs clear, normal breath sounds, no respiratory distress, no accessory muscle use Cardiovascular: normal rate, regular rhythm, no gallop/murmur, no JVD Abdomen: normal bowel sounds, soft, non tender, no organomegaly, non distended Genitourinary: other Extremities: no cyanosis Skin: no rash 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: head of ict II-XII grossly normal, alert, oriented x 3, responsive, motor weakness Lymphatic: no neck adenopathy, no groin adenopathy Musculoskeletal: no effusion Objective chest x-ray - negative Microbiology Date/Time Source Procedure Growth Status 03/31/16 07:00 Blood Blood Culture - Preliminary Resulted 03/26/16 23:15 Stool Clostridium difficile Toxin Assay - Final Complete 03/25/16 21:50 Hip Left Gram Stain - Final Complete 03/25/16 21:50 Wound Culture - Final A.baumanii Complx - Mdr Staphylococcus Aureus - Mrsa Streptococcus Group A Complete Microbiology Date/Time Source Procedure Growth Status 03/31/16 07:00 Blood Blood Culture - Preliminary Resulted recent bc - associate editor Laboratory Tests Test 04/02/16 04:00 White Blood Count 10.4 K/UL (4.8-10.8) Red Blood Count 3.96 M/UL (4.20-5.40) L Hemoglobin 10.9 G/DL (12.0-16.0) #L Hematocrit 35.1 % (37.0-47.0) #L Mean Corpuscular Volume 88 FL (80-99) Mean Corpuscular Hemoglobin 27.6 PG (27.0-31.0) Mean Corpuscular Hemoglobin Concent 31.2 G/DL (32.0-36.0) L Red Cell Distribution Width 15.1 % (11.6-14.8) H Platelet Count 407 K/UL (150-450) Mean Platelet Volume 5.7 FL (6.5-10.1) L Neutrophils (%) (Auto) 78.0 % (45.0-75.0) H Lymphocytes (%) (Auto) 16.2 % (20.0-45.0) L Monocytes (%) (Auto) 3.3 % (1.0-10.0) Eosinophils (%) (Auto) 2.3 % (0.0-3.0) Basophils (%) (Auto) 0.2 % (0.0-2.0) Iron Level 94 ug/dL (37-145) Total Iron Binding Capacity ug/dL (250-400) Percent Iron Saturation % (15-50) Unsaturated Iron Binding ug/dL (112-346) Current Medications Medications (Trade) Dose Ordered Sig/Pineda Route PRN Reason Start Time Stop Time Status Last Admin Dose Admin Acetaminophen (Tylenol) 650 mg Q4H PRN ORAL Mild Pain/Temp > 100.5 03/24/16 17:00 04/23/16 16:59 Diphenhydramine HCl (Benadryl) 25 mg Q4H PRN IVP Itching 03/24/16 17:00 04/23/16 16:59 04/02/16 13:51 Heparin Sodium (Porcine) 5000 units 5,000 units EVERY 12 HOURS SUBQ 03/24/16 21:00 04/23/16 20:59 03/30/16 22:26 Hydrocortisone 1 applic 1 applic EVERY 6 HOURS PRN TOPIC Itching 03/27/16 10:00 04/26/16 09:59 03/28/16 00:22 Hydromorphone HCl (Dilaudid) 2 mg Q4H PRN IVP Severe Pain (Pain Scale 7-10) 03/31/16 18:00 12/28/16 17:59 04/02/16 13:51 Linezolid (Zyvox) 300 ml @ 300 mls/hr EVERY 12 HOURS IVPB 03/29/16 21:00 04/07/16 23:59 04/02/16 09:15 Metronidazole (Flagyl) 500 mg EVERY 8 HOURS ORAL 03/29/16 22:00 04/07/16 23:59 04/02/16 13:45 Minocycline HCl (Minocin) 100 mg Q12HR ORAL 03/29/16 21:00 04/07/16 23:59 04/02/16 09:15 Ondansetron HCl (Zofran) 4 mg Q4H PRN IVP Nausea & Vomiting 03/24/16 17:30 04/23/16 17:29 03/31/16 13:03 Sodium Chloride (Sodium Chloride 1000ml bag) 1,000 ml @ 75 mls/hr [id number] IV 03/27/16 08:00 04/26/16 07:59 04/02/16 09:36 GRZEGORZ MARTINEZ Apr 02, 2016 15:29
[2016-04-02 16:00] VITALS: BP 111/63
--- NOTE | 2016-04-02 18:12 | Physician Query ---
PLEASE COMPLETE DOCUMENT BEFORE SIGNING Dear Dr. Jacques Chanel Date: 04/02/2016 Manager Dialysis/CDS Name: Karla ChildANGELINA gregorio Manager Dialysis/CDS Phone No.: [phone] Exercise your independent professional judgment when responding to the query. Questions asked do not imply a particular answer is desired or expected. We greatly appreciate your clarification on this issue. CLINICAL DOCUMENTATION STATES: This is a pleasant unfortunate female with history of paraplegia, multiple sacral thigh wounds admitted for possible wound infection. CLINICAL FINDINGS SHOW: #1 Left Ischial Tuberosity pressure ulcer stage IV/Unstageable.. #2 Left Posterior leg Pressure Ulcer stage IV/Unstageable. # 3 Right Posterior leg Pressure Ulcer stage IV/Unstageable.. Please respond to the following question: Is there a diagnosis specific to these symptoms or values? If so please state below. PHYSICIAN RESPONSE: Condition Present on Admission: [X] Yes [] No []Clinically Undeterminable Please also document in your Progress Notes and/or Discharge Summary and indicate if the condition was present on admission. Jacques Chanel M.D. Date/ Time [facility]
[2016-04-02 20:00] VITALS: BP_SYST 115; BP_SYST 118; BP_DIAS 62; BP_DIAS 65
[2016-04-03] VITALS: BP 141/61
[2016-04-03] MEDS: DiphenhydrAMINE 50mg/ml Inj IVP PRN ×6 (00:32→23:58)
[2016-04-03 04:00] VITALS: BP 125/75
[2016-04-03] MEDS: metroNIDAZOLE 500mg tab ORAL SCH ×3 (05:50→21:36)
--- NOTE | 2016-04-03 07:27 | General Progress Note ---
Assessment/Plan Problem List: (1) Acute renal failure ICD Codes: N17.9 - Acute kidney failure, unspecified SNOMED: 62279240 Qualifiers: Qualified Codes: N17.9 - Acute kidney failure, unspecified (2) Cellulitis ICD Codes: L03.90 - Cellulitis, unspecified SNOMED: 792670449 Qualifiers: Qualified Codes: L03.90 - Cellulitis, unspecified (3) Abscess ICD Codes: L02.91 - Abscess SNOMED: 473639291 (4) Generalized weakness ICD Codes: R53.1 - Weakness SNOMED: 45576573 (5) Abscess of hip, left ICD Codes: L02.416 - Cutaneous abscess of left lower limb SNOMED: 102178 (6) right hip wound (7) Bilateral edema of lower extremity ICD Codes: R60.0 - Localized edema SNOMED: 913866725 (8) Paraplegia ICD Codes: G82.20 - Paraplegia SNOMED: 72285758 Assessment/Plan iv abx per id pain rx transfuse as needed check stool ob cdiff rx wound care dc planning when off abx and h/h stable Subjective ROS Limited/Unobtainable: No Constitutional: Reports: malaise, weakness HEENT: Reports: no symptoms Cardiovascular: Reports: no symptoms Respiratory: Reports: cough Gastrointestinal/Abdominal: Reports: no symptoms Genitourinary: Reports: no symptoms 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: Reports: pre-existing deficit Endocrine: Reports: no symptoms Hematologic/Lymphatic: Reports: anemia Allergies: Coded Allergies: CEFTRIAXONE (Verified Allergy, Intermediate, SOB, HR-140bpm, face swollen , pt became red, 10/24/15) CODEINE (Verified Allergy, Intermediate, SWELLING, 01/03/11) LATEX (Verified Allergy, Intermediate, SWELLING, 01/03/11) PIPERACILLIN (Verified Allergy, Intermediate, Itching, 08/29/15) 08/29/15 tolerates Ceftaroline TAZOBACTAM (Verified Allergy, Intermediate, Itching, 01/29/15) VANCOMYCIN (Verified Allergy, Mild, 07/15/14) ASPARAGINASE (Verified Allergy, Unknown, 01/28/14) IRON (Verified Allergy, Unknown, 01/28/14) All Systems: reviewed and negative except above Subjective denies any bleeding. remains on iv abx. unclear source/etiology for decreased h /h. c/o anxiety. no fever or chills. multiple wounds Objective Last 24 Hour Vital Signs Date Time Temp Pulse Resp B/P Pulse Ox O2 Delivery O2 Flow Rate FiO2 04/03/16 04:00 98.2 81 20 125/75 97 Room Air 04/03/16 00:00 97.3 72 20 141/61 98 Room Air 04/02/16 20:00 97.9 62 20 115/65 99 Room Air 04/02/16 19:54 97.7 04/02/16 16:00 97.7 61 18 111/63 Room Air 04/02/16 11:50 98.0 60 20 125/64 99 Room Air 04/02/16 08:36 98.0 65 20 110/68 98 Room Air Intake and Output 04/02/16 04/03/16 19:00 07:00 Intake Total 1485 ml 930 ml Balance 1485 ml 930 ml Intake Oral 360 ml 480 ml IV Total 1125 ml 450 ml # Voids 3 1 # Bowel Movements 1 1 Height (Feet): 5 Height (Inches): 5.00 Weight (Pounds): 220 Objective General Appearance: WD/WN, alert Neck: supple Cardiovascular: normal rate, regular rhythm Respiratory/Chest: chest wall non-tender, lungs clear, normal breath sounds, no respiratory distress Abdomen: normal bowel sounds, non tender, soft, no organomegaly Edema: no edema noted Arm (L), no edema noted Arm (R), no edema noted Leg (L), no edema noted Leg (R), no edema noted Pedal (L), no edema noted Pedal (R), no edema noted Generalized Neurologic: motor weakness Skin: other - sacral and bilateral hip wounds BONG BRUNNER Apr 03, 2016 07:27
[2016-04-03 08:19] VITALS: BP 127/63
[2016-04-03] MEDS: MINOCYCLINE 50MG CAP ORAL SCH ×2 (08:53→20:17)
[2016-04-03] MEDS: Heparin 5000 units/ml inj SUBQ SCH ×3 (08:54→20:29)
[2016-04-03 09:17] LABS: BASOPHILS % (AUTO) 0.2 % (0.0-2.0); EOSINOPHILS % (AUTO) 2.3 % (0.0-3.0); LYMPHOCYTES % (AUTO) 16.9 % (20.0-45.0); MEAN CORPUSCULAR HEMOGLOBIN 27.7 PG (27.0-31.0); MEAN CORPUSCULAR HGB CONC 31.5 G/DL (32.0-36.0); MEAN CORPUSCULAR VOLUME 88 FL (80-99); MEAN PLATELET VOLUME 5.4 FL (6.5-10.1); MONOCYTES % (AUTO) 2.8 % (1.0-10.0); NEUTROPHILS % (AUTO) 77.9 % (45.0-75.0); PLATELET COUNT 327 K/UL (150-450); RED CELL DISTRIBUTION WIDTH 15.6 % (11.6-14.8); WHITE BLOOD COUNT 10.7 K/UL (4.8-10.8)
[2016-04-03 09:51] LABS: ANION GAP 15 (5-15); CALCIUM 6.9 mg/dL (8.6-10.2); CARBON DIOXIDE 18 mEQ/L (20-30); CHLORIDE 108 mEQ/L (98-107); CREATININE 0.5 mg/dL (0.5-0.9); GLOMERULAR FILTRATION RATE > 60 mL/min (>60); HEMOLYSIS 3; POTASSIUM 3.4 mEQ/L (3.4-4.9); SODIUM 141 mEQ/L (135-145)
[2016-04-03 11:46] VITALS: BP 120/65
--- NOTE | 2016-04-03 14:59 | Diagnostic Imaging Report ---
APPROVED REPORT CPT Code: 87702 Present Symptoms Lower Extremity Pain: Bilateral BILATERAL: Imaging reveals a patent deep venous system bilaterally. There is no evidence of thrombus within the femoral, popliteal or tibial segments. The greater saphenous veins are also within normal limits. Doppler indicates normal spontaneous flow within these segments.
[2016-04-03 16:00] VITALS: BP 139/78
[2016-04-03 20:00] VITALS: BP 114/61
[2016-04-04 00:11] VITALS: BP 128/63
[2016-04-04 04:22] VITALS: BP 108/54
[2016-04-04] MEDS: metroNIDAZOLE 500mg tab ORAL SCH ×3 (05:58→21:11)
[2016-04-04] MEDS: DiphenhydrAMINE 50mg/ml Inj IVP PRN ×4 (06:00→21:26)
[2016-04-04 08:24] VITALS: BP 127/72
--- NOTE | 2016-04-04 08:42 | General Progress Note ---
Assessment/Plan Problem List: (1) Acute renal failure ICD Codes: N17.9 - Acute kidney failure, unspecified SNOMED: 57913758 Qualifiers: Qualified Codes: N17.9 - Acute kidney failure, unspecified (2) Cellulitis ICD Codes: L03.90 - Cellulitis, unspecified SNOMED: 293428329 Qualifiers: Qualified Codes: L03.90 - Cellulitis, unspecified (3) Abscess ICD Codes: L02.91 - Abscess SNOMED: 764150032 (4) Generalized weakness ICD Codes: R53.1 - Weakness SNOMED: 34970161 (5) Abscess of hip, left ICD Codes: L02.416 - Cutaneous abscess of left lower limb SNOMED: 149447 (6) right hip wound (7) Bilateral edema of lower extremity ICD Codes: R60.0 - Localized edema SNOMED: 132490329 (8) Paraplegia ICD Codes: G82.20 - Paraplegia SNOMED: 47915952 Assessment/Plan iv abx per id pain rx transfuse as needed check stool ob cdiff rx wound care will repeat labs tomorrow dc planning when off abx and h/h stable Subjective ROS Limited/Unobtainable: No Constitutional: Reports: malaise, weakness HEENT: Reports: no symptoms Cardiovascular: Reports: no symptoms Respiratory: Reports: no symptoms Gastrointestinal/Abdominal: Reports: no symptoms Genitourinary: Reports: no symptoms 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: Reports: pre-existing deficit Endocrine: Reports: no symptoms Hematologic/Lymphatic: Reports: anemia Allergies: Coded Allergies: CEFTRIAXONE (Verified Allergy, Intermediate, SOB, HR-140bpm, face swollen , pt became red, 10/24/15) CODEINE (Verified Allergy, Intermediate, SWELLING, 01/03/11) LATEX (Verified Allergy, Intermediate, SWELLING, 01/03/11) PIPERACILLIN (Verified Allergy, Intermediate, Itching, 08/29/15) 08/29/15 tolerates Ceftaroline TAZOBACTAM (Verified Allergy, Intermediate, Itching, 01/29/15) VANCOMYCIN (Verified Allergy, Mild, 07/15/14) ASPARAGINASE (Verified Allergy, Unknown, 01/28/14) IRON (Verified Allergy, Unknown, 01/28/14) Subjective denies any bleeding. remains on iv abx. repeat blood cultures negative so far. unclear source/etiology for decreased h/h. c/o anxiety. no fever or chills. multiple wounds Objective Last 24 Hour Vital Signs Date Time Temp Pulse Resp B/P Pulse Ox O2 Delivery O2 Flow Rate FiO2 04/04/16 08:24 97.9 79 20 127/72 98 Room Air 04/04/16 04:22 98.7 79 18 108/54 95 Room Air 04/04/16 00:11 97.9 72 19 128/63 95 Room Air 04/03/16 20:00 97.7 69 19 114/61 99 Room Air 04/03/16 16:00 97.7 82 20 139/78 99 Room Air 04/03/16 11:46 98.0 55 20 120/65 99 Room Air Intake and Output 04/03/16 04/04/16 19:00 07:00 Intake Total 1260 ml 975 ml Balance 1260 ml 975 ml Intake Oral 360 ml IV Total 900 ml 975 ml # Voids 1 # Bowel Movements 1 Height (Feet): 5 Height (Inches): 5.00 Weight (Pounds): 220 Objective General Appearance: WD/WN, alert Neck: supple Cardiovascular: normal rate, regular rhythm Respiratory/Chest: chest wall non-tender, lungs clear, normal breath sounds, no respiratory distress Abdomen: normal bowel sounds, non tender, soft, no organomegaly Edema: no edema noted Arm (L), no edema noted Arm (R), no edema noted Leg (L), no edema noted Leg (R), no edema noted Pedal (L), no edema noted Pedal (R), no edema noted Generalized Neurologic: motor weakness Skin: other - sacral and bilateral hip wounds BONG BRUNNER Apr 04, 2016 08:42
[2016-04-04] MEDS: Heparin 5000 units/ml inj SUBQ SCH ×2 (09:00→20:03)
[2016-04-04] MEDS: MINOCYCLINE 50MG CAP ORAL SCH ×2 (09:29→21:11)
[2016-04-04] MEDS ORDERED: Tubing Blood Filter IV ONE ×2 (10:09→10:14)
[2016-04-04] MEDS ORDERED: NS 275ml ONE ×2 (10:09→10:14)
[2016-04-04] MEDS ORDERED: Tubing IV Secondary IV ONE (10:56)
[2016-04-04] MEDS ORDERED: NS Irrig 1000ml ONE (10:56)
[2016-04-04 12:51] VITALS: BP 120/68
--- NOTE | 2016-04-04 15:34 | Infectious Diseases Prog Note ---
Assessment/Plan Assessment/Plan ASSESSMENT AND PLAN: 1. mrsa/acinetobacter/strep bilateral hip/thigh wound infection, mssa/strep bacteremia, c.diff. +, sepsis, sirs, leukocytosis, fevers - leukocytosis and fever resolved - continue on iv zyvox and minocycline - day #10 (extend flagyl course at least 72 hrs after finish other abx to treat c.diff.) - scripts written for abx once stable for discharge - unclear significance of SENIOR DIRECTOR INSIGHT bc, ? contaminant, line new - recheck bc, consider d/c picc line upon discharge 2. Acute kidney injury - improving, cr wnl, ? sz - w/u per primary 3. Anemia. 4. Weight loss 5. History of osteoarthritis and treatment. 6. Colostomy. 7. Paraplegia. 8. Anemia. 9. ? diabetes - patient denies dm hx, bs elevated only with infection per pt 10. Chronic pain management and chronic pain syndrome. 11. History of cholelithiasis. 12. Pain management for primary. 13. Multiple allergies to asparaginase, Rocephin, codeine, iron, Latex, piperacillin, tazobactam, and vancomycin. 14. wound care per protocol and surgery 15. The case was discussed with RN. 16. The case was discussed with the patient. 17. fh-nc, sh-negative, mar noted Subjective Constitutional: Denies: fever HEENT: Denies: congestion Respiratory: Denies: shortness of breath Cardiovascular: Denies: chest pain Gastrointestinal/Abdominal: Denies: diarrhea, nausea, vomiting Neurologic: Denies: headache Psychiatric: Denies: depression Skin: Denies: rash Hematologic: Denies: bleeding Musculoskeletal: Denies: pain Allergies: Coded Allergies: CEFTRIAXONE (Verified Allergy, Intermediate, SOB, HR-140bpm, face swollen , pt became red, 10/24/15) CODEINE (Verified Allergy, Intermediate, SWELLING, 01/03/11) LATEX (Verified Allergy, Intermediate, SWELLING, 01/03/11) PIPERACILLIN (Verified Allergy, Intermediate, Itching, 08/29/15) 08/29/15 tolerates Ceftaroline TAZOBACTAM (Verified Allergy, Intermediate, Itching, 01/29/15) VANCOMYCIN (Verified Allergy, Mild, 07/15/14) ASPARAGINASE (Verified Allergy, Unknown, 01/28/14) IRON (Verified Allergy, Unknown, 01/28/14) Objective Vital Signs Last 24 Hour Vital Signs Date Time Temp Pulse Resp B/P Pulse Ox O2 Delivery O2 Flow Rate FiO2 04/04/16 12:51 98.0 80 20 120/68 98 Room Air 04/04/16 08:24 97.9 79 20 127/72 98 Room Air 04/04/16 04:22 98.7 79 18 108/54 95 Room Air 04/04/16 00:11 97.9 72 19 128/63 95 Room Air 04/03/16 20:00 97.7 69 19 114/61 99 Room Air 04/03/16 16:00 97.7 82 20 139/78 99 Room Air Height (Feet): 5 Height (Inches): 5.00 Weight (Pounds): 220 General Appearance: no acute distress HEENT: normocephalic, atraumatic, anicteric, mucous membranes moist, PERRL, EOMI, pharynx normal, supple, no JVD Respiratory/Chest: lungs clear, normal breath sounds, no respiratory distress, no accessory muscle use Cardiovascular: normal rate, regular rhythm, no gallop/murmur, no JVD Abdomen: normal bowel sounds, soft, non tender, no organomegaly, non distended Genitourinary: other - no bay Extremities: no cyanosis Skin: no rash 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: concrete layer II-XII grossly normal, alert, oriented x 3, responsive Lymphatic: no neck adenopathy Musculoskeletal: no effusion Objective chest x-ray - negative Microbiology Date/Time Source Procedure Growth Status 04/03/16 02:14 Blood Blood Culture - Preliminary Resulted 04/02/16 19:15 Blood Blood Culture - Preliminary NO GROWTH AFTER 24 HOURS Resulted Labs Test 04/02/16 04:00 04/03/16 04:23 White Blood Count 10.4 K/UL (4.8-10.8) 10.7 K/UL (4.8-10.8) Red Blood Count 3.96 M/UL (4.20-5.40) 3.70 M/UL (4.20-5.40) Hemoglobin 10.9 G/DL (12.0-16.0) 10.2 G/DL (12.0-16.0) Hematocrit 35.1 % (37.0-47.0) 32.5 % (37.0-47.0) Mean Corpuscular Volume 88 FL (80-99) 88 FL (80-99) Mean Corpuscular Hemoglobin 27.6 PG (27.0-31.0) 27.7 PG (27.0-31.0) Mean Corpuscular Hemoglobin Concent 31.2 G/DL (32.0-36.0) 31.5 G/DL (32.0-36.0) Red Cell Distribution Width 15.1 % (11.6-14.8) 15.6 % (11.6-14.8) Platelet Count 407 K/UL (150-450) 327 K/UL (150-450) Mean Platelet Volume 5.7 FL (6.5-10.1) 5.4 FL (6.5-10.1) Neutrophils (%) (Auto) 78.0 % (45.0-75.0) 77.9 % (45.0-75.0) Lymphocytes (%) (Auto) 16.2 % (20.0-45.0) 16.9 % (20.0-45.0) Monocytes (%) (Auto) 3.3 % (1.0-10.0) 2.8 % (1.0-10.0) Eosinophils (%) (Auto) 2.3 % (0.0-3.0) 2.3 % (0.0-3.0) Basophils (%) (Auto) 0.2 % (0.0-2.0) 0.2 % (0.0-2.0) Iron Level 94 ug/dL (37-145) Total Iron Binding Capacity ug/dL (250-400) Percent Iron Saturation % (15-50) Unsaturated Iron Binding ug/dL (112-346) Sodium Level 141 mEQ/L (135-145) Potassium Level 3.4 mEQ/L (3.4-4.9) Chloride Level 108 mEQ/L (98-107) Carbon Dioxide Level 18 mEQ/L (20-30) Anion Gap 15 (5-15) Blood Urea Nitrogen 11 mg/dL (7-23) Creatinine 0.5 mg/dL (0.5-0.9) Estimat Glomerular Filtration Rate > 60 mL/min (>60) Glucose Level 52 mg/dL (74-106) Calcium Level 6.9 mg/dL (8.6-10.2) Current Medications Medications (Trade) Dose Ordered Sig/Pineda Route PRN Reason Start Time Stop Time Status Last Admin Dose Admin Acetaminophen (Tylenol) 650 mg Q4H PRN ORAL Mild Pain/Temp > 100.5 03/24/16 17:00 04/23/16 16:59 Diphenhydramine HCl (Benadryl) 25 mg Q4H PRN IVP Itching 03/24/16 17:00 04/23/16 16:59 04/04/16 10:27 Heparin Sodium (Porcine) 5000 units 5,000 units EVERY 12 HOURS SUBQ 03/24/16 21:00 04/23/16 20:59 03/30/16 22:26 Hydrocortisone 1 applic 1 applic EVERY 6 HOURS PRN TOPIC Itching 03/27/16 10:00 04/26/16 09:59 03/28/16 00:22 Hydromorphone HCl (Dilaudid) 2 mg Q4H PRN IVP Severe Pain (Pain Scale 7-10) 03/31/16 18:00 04/07/16 17:59 04/04/16 10:27 Linezolid (Zyvox) 300 ml @ 300 mls/hr EVERY 12 HOURS IVPB 03/29/16 21:00 04/07/16 23:59 04/04/16 09:29 Metronidazole (Flagyl) 500 mg EVERY 8 HOURS ORAL 03/29/16 22:00 04/07/16 23:59 04/04/16 14:25 Minocycline HCl (Minocin) 100 mg Q12HR ORAL 03/29/16 21:00 04/07/16 23:59 04/04/16 09:29 Ondansetron HCl (Zofran) 4 mg Q4H PRN IVP Nausea & Vomiting 03/24/16 17:30 04/23/16 17:29 04/03/16 09:03 Sodium Chloride (Sodium Chloride 1000ml bag) 1,000 ml @ 75 mls/hr [id number] IV 03/27/16 08:00 04/26/16 07:59 04/04/16 02:10 GRZEGORZ MARTINEZ Apr 04, 2016 15:34
[2016-04-04 16:05] VITALS: BP 148/78
[2016-04-04 20:11] VITALS: BP 119/62
[2016-04-05] VITALS: BP 116/69
[2016-04-05] MEDS: DiphenhydrAMINE 50mg/ml Inj IVP PRN ×5 (01:48→20:30)
[2016-04-05] MEDS: Dakin's 0.25% (Half Strength) 16oz TOPIC SCH (02:00)
[2016-04-05 04:00] VITALS: BP 108/69
[2016-04-05] MEDS: metroNIDAZOLE 500mg tab ORAL SCH ×3 (06:10→21:24)
[2016-04-05 06:50] LABS: BASOPHILS % (AUTO) 0.3 % (0.0-2.0); EOSINOPHILS % (AUTO) 1.8 % (0.0-3.0); LYMPHOCYTES % (AUTO) 16.3 % (20.0-45.0); MEAN CORPUSCULAR HEMOGLOBIN 27.9 PG (27.0-31.0); MEAN CORPUSCULAR HGB CONC 31.7 G/DL (32.0-36.0); MEAN CORPUSCULAR VOLUME 88 FL (80-99); MEAN PLATELET VOLUME 6.7 FL (6.5-10.1); MONOCYTES % (AUTO) 1.8 % (1.0-10.0); NEUTROPHILS % (AUTO) 79.8 % (45.0-75.0); PLATELET COUNT 257 K/UL (150-450); RED BLOOD COUNT 3.77 M/UL (4.20-5.40); RED CELL DISTRIBUTION WIDTH 15.3 % (11.6-14.8); WHITE BLOOD COUNT 11.5 K/UL (4.8-10.8)
[2016-04-05 07:06] LABS: ANION GAP 15 (5-15); CALCIUM 7.7 mg/dL (8.6-10.2); CARBON DIOXIDE 21 mEQ/L (20-30); CHLORIDE 104 mEQ/L (98-107); CREATININE 0.6 mg/dL (0.5-0.9); GLOMERULAR FILTRATION RATE > 60 mL/min (>60); HEMOLYSIS 3; POTASSIUM 3.7 mEQ/L (3.4-4.9); SODIUM 140 mEQ/L (135-145)
[2016-04-05 08:00] VITALS: BP 122/60
[2016-04-05] MEDS: MINOCYCLINE 50MG CAP ORAL SCH ×2 (08:22→21:24)
[2016-04-05] MEDS: Heparin 5000 units/ml inj SUBQ SCH ×2 (08:22→21:00)
[2016-04-05] MEDS ORDERED: Dakin's 0.125% Soln (Quarter Strength) 16oz TOPIC SCH (09:00)
--- NOTE | 2016-04-05 09:25 | General Progress Note ---
Assessment/Plan Problem List: (1) Acute renal failure ICD Codes: N17.9 - Acute kidney failure, unspecified SNOMED: 82914267 Qualifiers: Qualified Codes: N17.9 - Acute kidney failure, unspecified (2) Cellulitis ICD Codes: L03.90 - Cellulitis, unspecified SNOMED: 097329433 Qualifiers: Qualified Codes: L03.90 - Cellulitis, unspecified (3) Abscess ICD Codes: L02.91 - Abscess SNOMED: 674057516 (4) Generalized weakness ICD Codes: R53.1 - Weakness SNOMED: 99498048 (5) Abscess of hip, left ICD Codes: L02.416 - Cutaneous abscess of left lower limb SNOMED: 389352 (6) right hip wound (7) Bilateral edema of lower extremity ICD Codes: R60.0 - Localized edema SNOMED: 149963017 (8) Paraplegia ICD Codes: G82.20 - Paraplegia SNOMED: 09259174 Status: stable, progressing Assessment/Plan iv abx per id pain rx transfuse as needed check stool ob cdiff rx wound care check eeg dc planning tomorrow Subjective ROS Limited/Unobtainable: No Constitutional: Reports: malaise, weakness HEENT: Reports: no symptoms Cardiovascular: Reports: no symptoms Respiratory: Reports: no symptoms Gastrointestinal/Abdominal: Reports: no symptoms Genitourinary: Reports: no symptoms 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: Reports: seizure Endocrine: Reports: no symptoms Hematologic/Lymphatic: Reports: anemia Allergies: Coded Allergies: CEFTRIAXONE (Verified Allergy, Intermediate, SOB, HR-140bpm, face swollen , pt became red, 10/24/15) CODEINE (Verified Allergy, Intermediate, SWELLING, 01/03/11) LATEX (Verified Allergy, Intermediate, SWELLING, 01/03/11) PIPERACILLIN (Verified Allergy, Intermediate, Itching, 08/29/15) 08/29/15 tolerates Ceftaroline TAZOBACTAM (Verified Allergy, Intermediate, Itching, 01/29/15) VANCOMYCIN (Verified Allergy, Mild, 07/15/14) ASPARAGINASE (Verified Allergy, Unknown, 01/28/14) IRON (Verified Allergy, Unknown, 01/28/14) All Systems: reviewed and negative except above Subjective c/o 1-2 hr episode opf "seizures." pt states she had peroid of uncontrolled shaking. no szs history. no headaches Objective Last 24 Hour Vital Signs Date Time Temp Pulse Resp B/P Pulse Ox O2 Delivery O2 Flow Rate FiO2 04/05/16 08:00 97.7 75 18 122/60 98 Room Air 04/05/16 04:00 97.8 74 18 108/69 96 Room Air 04/05/16 00:00 97.6 75 18 116/69 97 Room Air 04/04/16 21:57 97.7 04/04/16 20:11 97.7 73 18 119/62 97 Room Air 04/04/16 16:05 97.7 72 20 148/78 98 Room Air 04/04/16 12:51 98.0 80 20 120/68 98 Room Air Intake and Output 04/04/16 04/05/16 19:00 07:00 Intake Total 585 ml 1170 ml Balance 585 ml 1170 ml Intake Oral 360 ml 720 ml IV Total 225 ml 450 ml # Voids 3 # Bowel Movements 1 Laboratory Tests 04/05/16 04:30: White Blood Count 11.5H, Red Blood Count 3.77L, Hemoglobin 10.5L, Hematocrit 33.2L, Mean Corpuscular Volume 88, Mean Corpuscular Hemoglobin 27.9, Mean Corpuscular Hemoglobin Concent 31.7L, Red Cell Distribution Width 15.3H, Platelet Count 257, Mean Platelet Volume 6.7, Neutrophils (%) (Auto) 79.8H, Lymphocytes (%) (Auto) 16.3L, Monocytes (%) (Auto) 1.8, Eosinophils (%) (Auto) 1.8, Basophils (%) (Auto) 0.3, Sodium Level 140, Potassium Level 3.7, Chloride Level 104, Carbon Dioxide Level 21, Anion Gap 15, Blood Urea Nitrogen 9, Creatinine 0.6, Estimat Glomerular Filtration Rate > 60, Glucose Level 67L, Calcium Level 7.7L Height (Feet): 5 Height (Inches): 5.00 Weight (Pounds): 220 Objective General Appearance: WD/WN, alert Neck: supple Cardiovascular: normal rate, regular rhythm Respiratory/Chest: chest wall non-tender, lungs clear, normal breath sounds, no respiratory distress Abdomen: normal bowel sounds, non tender, soft, no organomegaly Edema: no edema noted Arm (L), no edema noted Arm (R), no edema noted Leg (L), no edema noted Leg (R), no edema noted Pedal (L), no edema noted Pedal (R), no edema noted Generalized Neurologic: motor weakness Skin: other - sacral and bilateral hip wounds BONG BRUNNER Apr 05, 2016 09:25
[2016-04-05 12:00] VITALS: BP 114/71
[2016-04-05] MEDS ORDERED: Amikacin Rx to dose MISC PRN (14:30)
[2016-04-05 20:08] VITALS: BP 127/68
--- NOTE | 2016-04-05 21:23 | Infectious Diseases Prog Note ---
Assessment/Plan Assessment/Plan ASSESSMENT AND PLAN: 1. mrsa/acinetobacter/strep bilateral hip/thigh wound infection, mssa/strep bacteremia, c.diff. +, sepsis, sirs, leukocytosis, fevers - continue zyvox and flagyl, polymyxin started, discontinue minocycline - watch labs 2. 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 picc line infection - change picc line - surveillance bc - polymyxin started - watch labs 3. Anemia, lois resolved, ? sz 4. Weight loss 5. History of osteoarthritis and treatment. 6. Colostomy. 7. Paraplegia. 8. Anemia. 9. ? diabetes - patient denies dm hx, bs elevated only with infection per pt 10. Chronic pain management and chronic pain syndrome. 11. History of cholelithiasis. 12. Pain management for primary. 13. Multiple allergies to asparaginase, Rocephin, codeine, iron, Latex, piperacillin, tazobactam, and vancomycin. 14. wound care per protocol and surgery 15. The case was discussed with RN. 16. The case was discussed with the patient. 17. fh-nc, sh-negative, mar noted 18. d/w pharmacy and microbiology 19. time spent 40 minutes Subjective Constitutional: Reports: fatigue, Denies: fever HEENT: Denies: congestion Respiratory: Denies: shortness of breath Cardiovascular: Denies: chest pain Gastrointestinal/Abdominal: Reports: other - + colostomy, Denies: nausea, vomiting Genitourinary: Reports: other - no bay Neurologic: Reports: weakness, Denies: headache Psychiatric: Denies: depression Skin: Denies: rash Hematologic: Denies: bleeding Musculoskeletal: Denies: pain Allergies: Coded Allergies: CEFTRIAXONE (Verified Allergy, Intermediate, SOB, HR-140bpm, face swollen , pt became red, 10/24/15) CODEINE (Verified Allergy, Intermediate, SWELLING, 01/03/11) LATEX (Verified Allergy, Intermediate, SWELLING, 01/03/11) PIPERACILLIN (Verified Allergy, Intermediate, Itching, 08/29/15) 08/29/15 tolerates Ceftaroline TAZOBACTAM (Verified Allergy, Intermediate, Itching, 01/29/15) VANCOMYCIN (Verified Allergy, Mild, 07/15/14) ASPARAGINASE (Verified Allergy, Unknown, 01/28/14) IRON (Verified Allergy, Unknown, 01/28/14) Objective Vital Signs Last 24 Hour Vital Signs Date Time Temp Pulse Resp B/P Pulse Ox O2 Delivery O2 Flow Rate FiO2 04/05/16 20:08 97.9 79 22 127/68 99 Room Air 04/05/16 12:00 97.9 82 18 114/71 98 Room Air 04/05/16 08:00 97.7 75 18 122/60 98 Room Air 04/05/16 04:00 97.8 74 18 108/69 96 Room Air 04/05/16 00:00 97.6 75 18 116/69 97 Room Air 04/04/16 21:57 97.7 Height (Feet): 5 Height (Inches): 5.00 Weight (Pounds): 220 General Appearance: no acute distress HEENT: normocephalic, atraumatic, anicteric, mucous membranes moist, PERRL, EOMI, pharynx normal, supple, no JVD Respiratory/Chest: lungs clear, normal breath sounds, no respiratory distress, no accessory muscle use Cardiovascular: normal rate, regular rhythm, no gallop/murmur, no JVD Abdomen: normal bowel sounds, soft, non tender, no organomegaly, non distended Genitourinary: other - no bay Extremities: no cyanosis Skin: no rash, other - wounds covered 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, alert, responsive Lymphatic: no neck adenopathy Musculoskeletal: no effusion Objective chest x-ray - negative Microbiology Date/Time Source Procedure Growth Status 04/04/16 19:55 Blood Blood Culture - Preliminary Resulted 03/26/16 23:15 Stool Clostridium difficile Toxin Assay - Final Complete 03/25/16 21:50 Hip Left Gram Stain - Final Complete 03/25/16 21:50 Wound Culture - Final A.baumanii Complx - Mdr Staphylococcus Aureus - Mrsa Streptococcus Group A Complete Microbiology Date/Time Source Procedure Growth Status 04/04/16 19:55 Blood Blood Culture - Preliminary Resulted 04/03/16 02:14 Blood Blood Culture - Preliminary Staphylococcus Sp Coag Neg Resulted Laboratory Tests Test 04/05/16 04:30 White Blood Count 11.5 K/UL (4.8-10.8) H Red Blood Count 3.77 M/UL (4.20-5.40) L Hemoglobin 10.5 G/DL (12.0-16.0) L Hematocrit 33.2 % (37.0-47.0) L Mean Corpuscular Volume 88 FL (80-99) Mean Corpuscular Hemoglobin 27.9 PG (27.0-31.0) Mean Corpuscular Hemoglobin Concent 31.7 G/DL (32.0-36.0) L Red Cell Distribution Width 15.3 % (11.6-14.8) H Platelet Count 257 K/UL (150-450) Mean Platelet Volume 6.7 FL (6.5-10.1) Neutrophils (%) (Auto) 79.8 % (45.0-75.0) H Lymphocytes (%) (Auto) 16.3 % (20.0-45.0) L Monocytes (%) (Auto) 1.8 % (1.0-10.0) Eosinophils (%) (Auto) 1.8 % (0.0-3.0) Basophils (%) (Auto) 0.3 % (0.0-2.0) Sodium Level 140 mEQ/L (135-145) Potassium Level 3.7 mEQ/L (3.4-4.9) Chloride Level 104 mEQ/L (98-107) Carbon Dioxide Level 21 mEQ/L (20-30) Anion Gap 15 (5-15) Blood Urea Nitrogen 9 mg/dL (7-23) Creatinine 0.6 mg/dL (0.5-0.9) Estimat Glomerular Filtration Rate > 60 mL/min (>60) Glucose Level 67 mg/dL (74-106) L Calcium Level 7.7 mg/dL (8.6-10.2) L Current Medications Medications (Trade) Dose Ordered Sig/Pineda Route PRN Reason Start Time Stop Time Status Last Admin Dose Admin Acetaminophen (Tylenol) 650 mg Q4H PRN ORAL Mild Pain/Temp > 100.5 03/24/16 17:00 04/23/16 16:59 Amikacin Protocol 1 ea 1 ea DAILY PRN MISC Per rx protocol 04/05/16 14:30 05/05/16 14:29 Amikacin Sulfate/ Sodium Chloride (Amikin/Sodium Chloride 100ml bag) 104 ml @ 200 mls/hr Q24H IV 04/05/16 16:00 04/12/16 15:59 04/05/16 16:25 Diphenhydramine HCl (Benadryl) 25 mg Q4H PRN IVP Itching 03/24/16 17:00 04/23/16 16:59 04/05/16 20:30 Heparin Sodium (Porcine) 5000 units 5,000 units EVERY 12 HOURS SUBQ 03/24/16 21:00 04/23/16 20:59 03/30/16 22:26 Heparin Sodium/ Sodium Chloride (Heparin 2000 units/Ns 1000ml premix) 2,000 unit ONCE PRN INJ FOR PICC LINE 04/06/16 06:00 04/06/16 23:59 Hydrocortisone 1 applic 1 applic EVERY 6 HOURS PRN TOPIC Itching 03/27/16 10:00 04/26/16 09:59 03/28/16 00:22 Hydromorphone HCl (Dilaudid) 2 mg Q4H PRN IVP Severe Pain (Pain Scale 7-10) 03/31/16 18:00 04/07/16 17:59 04/05/16 20:30 Lidocaine HCl (Xylocaine 1% 30ml) 30 ml ONCE PRN INJ FOR PICC LINE 04/06/16 06:00 04/06/16 23:59 Linezolid (Zyvox) 300 ml @ 300 mls/hr EVERY 12 HOURS IVPB 03/29/16 21:00 04/07/16 23:59 04/05/16 08:21 Metronidazole (Flagyl) 500 mg EVERY 8 HOURS ORAL 03/29/16 22:00 04/07/16 23:59 04/05/16 13:58 Minocycline HCl (Minocin) 100 mg Q12HR ORAL 03/29/16 21:00 04/07/16 23:59 04/05/16 08:22 Ondansetron HCl (Zofran) 4 mg Q4H PRN IVP Nausea & Vomiting 03/24/16 17:30 04/23/16 17:29 04/05/16 01:27 Sodium Hypochlorite (Dakin's Half Strength) 1 applic Q24H TOPIC 04/05/16 02:00 05/05/16 01:59 Sodium Bicarbonate (Sodium Bicarbonate) 50 ml ONCE PRN IV for PICC Line 04/06/16 06:00 04/06/16 23:59 Sodium Chloride (Sodium Chloride 1000ml bag) 1,000 ml @ 75 mls/hr [id number] IV 03/27/16 08:00 04/26/16 07:59 04/05/16 18:42 GRZEGORZ MARTINEZ Apr 05, 2016 21:23
[2016-04-05] MEDS ORDERED: metroNIDAZOLE 500mg tab ORAL SCH (22:00)
[2016-04-05] MEDS: Polymyxin B Sulfate 500,000 UNITS in D5W 500ml 500 ML IVPB SCH (23:27)
[2016-04-06 00:03] VITALS: BP 126/64
[2016-04-06 04:00] VITALS: BP 134/74
[2016-04-06] MEDS: DiphenhydrAMINE 50mg/ml Inj IVP PRN ×4 (04:24→22:11)
[2016-04-06] MEDS: Dakin's 0.25% (Half Strength) 16oz TOPIC SCH (04:24)
[2016-04-06] MEDS: metroNIDAZOLE 500mg tab ORAL SCH ×3 (05:31→21:45)
[2016-04-06] MEDS ORDERED: Lidocaine 1% Plain 30 ml INJ PRN (06:00)
[2016-04-06] MEDS ORDERED: Sodium Bicarbonate 8.4% 50ml Inj IV PRN (06:00)
[2016-04-06] MEDS ORDERED: Heparin 2000 units/Ns 1000ml INJ PRN (06:00)
[2016-04-06 06:37] LABS: BASOPHILS % (AUTO) 0.5 % (0.0-2.0); EOSINOPHILS % (AUTO) 1.8 % (0.0-3.0); LYMPHOCYTES % (AUTO) 14.2 % (20.0-45.0); MEAN CORPUSCULAR HEMOGLOBIN 27.6 PG (27.0-31.0); MEAN CORPUSCULAR HGB CONC 31.7 G/DL (32.0-36.0); MEAN CORPUSCULAR VOLUME 87 FL (80-99); MEAN PLATELET VOLUME 7.9 FL (6.5-10.1); MONOCYTES % (AUTO) 2.2 % (1.0-10.0); NEUTROPHILS % (AUTO) 81.2 % (45.0-75.0); PLATELET COUNT 230 K/UL (150-450); RED BLOOD COUNT 3.86 M/UL (4.20-5.40); RED CELL DISTRIBUTION WIDTH 15.1 % (11.6-14.8); WHITE BLOOD COUNT 10.5 K/UL (4.8-10.8)
[2016-04-06 06:56] LABS: ANION GAP 11 (5-15); CALCIUM 7.6 mg/dL (8.6-10.2); CARBON DIOXIDE 21 mEQ/L (20-30); CHLORIDE 107 mEQ/L (98-107); CREATININE 0.6 mg/dL (0.5-0.9); GLOMERULAR FILTRATION RATE > 60 mL/min (>60); HEMOLYSIS 0; POTASSIUM 3.4 mEQ/L (3.4-4.9); SODIUM 139 mEQ/L (135-145)
[2016-04-06 08:00] VITALS: BP 122/67
[2016-04-06] MEDS: Heparin 5000 units/ml inj SUBQ SCH ×2 (08:03→21:00)
[2016-04-06] MEDS: Polymyxin B Sulfate 500,000 UNITS in D5W 500ml 500 ML IVPB SCH ×2 (08:14→21:44)
--- NOTE | 2016-04-06 08:38 | General Progress Note ---
Assessment/Plan Problem List: (1) Acute renal failure ICD Codes: N17.9 - Acute kidney failure, unspecified SNOMED: 45374913 Qualifiers: Qualified Codes: N17.9 - Acute kidney failure, unspecified (2) Cellulitis ICD Codes: L03.90 - Cellulitis, unspecified SNOMED: 934959627 Qualifiers: Qualified Codes: L03.90 - Cellulitis, unspecified (3) Abscess ICD Codes: L02.91 - Abscess SNOMED: 956692576 (4) Generalized weakness ICD Codes: R53.1 - Weakness SNOMED: 75089806 (5) Abscess of hip, left ICD Codes: L02.416 - Cutaneous abscess of left lower limb SNOMED: 641712 (6) right hip wound (7) Bilateral edema of lower extremity ICD Codes: R60.0 - Localized edema SNOMED: 603909862 (8) Paraplegia ICD Codes: G82.20 - Paraplegia SNOMED: 49119750 Status: stable, progressing Assessment/Plan iv abx per id pain rx transfuse as needed cdiff rx wound care check eeg. done. no results yet dc planning tomorrow Subjective ROS Limited/Unobtainable: No Constitutional: Reports: malaise, weakness HEENT: Reports: no symptoms Cardiovascular: Reports: no symptoms Respiratory: Reports: no symptoms Gastrointestinal/Abdominal: Reports: no symptoms Genitourinary: Reports: no symptoms 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: Reports: seizure Endocrine: Reports: no symptoms Hematologic/Lymphatic: Reports: no symptoms Allergies: Coded Allergies: CEFTRIAXONE (Verified Allergy, Intermediate, SOB, HR-140bpm, face swollen , pt became red, 10/24/15) CODEINE (Verified Allergy, Intermediate, SWELLING, 01/03/11) LATEX (Verified Allergy, Intermediate, SWELLING, 01/03/11) PIPERACILLIN (Verified Allergy, Intermediate, Itching, 08/29/15) 08/29/15 tolerates Ceftaroline TAZOBACTAM (Verified Allergy, Intermediate, Itching, 01/29/15) VANCOMYCIN (Verified Allergy, Mild, 07/15/14) ASPARAGINASE (Verified Allergy, Unknown, 01/28/14) IRON (Verified Allergy, Unknown, 01/28/14) All Systems: reviewed and negative except above Subjective no szs. feels weak. remains on iv abx. eeg completed. no results yet. declines snf. Objective Last 24 Hour Vital Signs Date Time Temp Pulse Resp B/P Pulse Ox O2 Delivery O2 Flow Rate FiO2 04/06/16 04:00 97.2 73 21 134/74 96 Room Air 04/06/16 00:03 97.7 82 19 126/64 98 Room Air 04/05/16 20:08 97.9 79 22 127/68 99 Room Air 04/05/16 12:00 97.9 82 18 114/71 98 Room Air Intake and Output 04/05/16 04/06/16 19:00 07:00 Intake Total 1500 ml 650 ml Balance 1500 ml 650 ml Intake Oral 600 ml 125 ml IV Total 900 ml 525 ml # Voids 2 4 Laboratory Tests 04/06/16 06:00: White Blood Count 10.5, Red Blood Count 3.86L, Hemoglobin 10.6L, Hematocrit 33.6L, Mean Corpuscular Volume 87, Mean Corpuscular Hemoglobin 27.6, Mean Corpuscular Hemoglobin Concent 31.7L, Red Cell Distribution Width 15.1H, Platelet Count 230, Mean Platelet Volume 7.9, Neutrophils (%) (Auto) 81.2H, Lymphocytes (%) (Auto) 14.2L, Monocytes (%) (Auto) 2.2, Eosinophils (%) (Auto) 1.8, Basophils (%) (Auto) 0.5, Sodium Level 139, Potassium Level 3.4, Chloride Level 107, Carbon Dioxide Level 21, Anion Gap 11, Blood Urea Nitrogen 8, Creatinine 0.6, Estimat Glomerular Filtration Rate > 60, Glucose Level 77, Calcium Level 7.6L Height (Feet): 5 Height (Inches): 5.00 Weight (Pounds): 220 Objective General Appearance: WD/WN, alert Neck: supple Cardiovascular: normal rate, regular rhythm Respiratory/Chest: chest wall non-tender, lungs clear, normal breath sounds, no respiratory distress Abdomen: normal bowel sounds, non tender, soft, no organomegaly Edema: no edema noted Arm (L), no edema noted Arm (R), no edema noted Leg (L), no edema noted Leg (R), no edema noted Pedal (L), no edema noted Pedal (R), no edema noted Generalized Neurologic: motor weakness Skin: other - sacral and bilateral hip wounds BONG BRUNNER Apr 06, 2016 08:38
--- NOTE | 2016-04-06 09:07 | Wound Nurse Progress Note ---
Wound RN Progress Note Wound Consult Unable to reassess wounds , Patient refused x3 . Explained benefit of reassessment and purpose to see the wounds progress , patient stated "for what, no" . Unable to assess skin at this time. SUGEY JORDAN Apr 06, 2016 09:07
[2016-04-06 12:00] VITALS: BP 130/71
--- NOTE | 2016-04-06 14:22 | Infectious Diseases Prog Note ---
Assessment/Plan Assessment/Plan ASSESSMENT AND PLAN: 1. mrsa/acinetobacter/strep bilateral hip/thigh wound infection, mssa/strep bacteremia, c.diff. +, sepsis, sirs, leukocytosis, fevers - continue zyvox, flagyl and polymyxin - watch labs 2. 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 picc line infection - picc line changed - surveillance bc, check echo - continue abx - watch labs - cannot get ua and culture 3. Anemia, lois resolved, ? sz 4. Weight loss 5. History of osteoarthritis and treatment. 6. Colostomy. 7. Paraplegia. 8. Anemia. 9. ? diabetes - patient denies dm hx, bs elevated only with infection per pt 10. Chronic pain management and chronic pain syndrome. 11. History of cholelithiasis. 12. Pain management for primary. 13. Multiple allergies to asparaginase, Rocephin, codeine, iron, Latex, piperacillin, tazobactam, and vancomycin. 14. wound care per protocol and surgery 15. The case was discussed with RN. 16. The case was discussed with the patient. 17. fh-nc, sh-negative, mar noted Subjective Constitutional: Denies: fever HEENT: Denies: congestion Respiratory: Denies: shortness of breath Cardiovascular: Denies: chest pain Gastrointestinal/Abdominal: Reports: other - + colostomy, Denies: nausea, vomiting Genitourinary: Reports: other - no bay Neurologic: Denies: headache Psychiatric: Denies: depression Skin: Denies: rash Hematologic: Denies: bleeding Musculoskeletal: Denies: pain Allergies: Coded Allergies: CEFTRIAXONE (Verified Allergy, Intermediate, SOB, HR-140bpm, face swollen , pt became red, 10/24/15) CODEINE (Verified Allergy, Intermediate, SWELLING, 01/03/11) LATEX (Verified Allergy, Intermediate, SWELLING, 01/03/11) PIPERACILLIN (Verified Allergy, Intermediate, Itching, 08/29/15) 08/29/15 tolerates Ceftaroline TAZOBACTAM (Verified Allergy, Intermediate, Itching, 01/29/15) VANCOMYCIN (Verified Allergy, Mild, 07/15/14) ASPARAGINASE (Verified Allergy, Unknown, 01/28/14) IRON (Verified Allergy, Unknown, 01/28/14) Objective Vital Signs Last 24 Hour Vital Signs Date Time Temp Pulse Resp B/P Pulse Ox O2 Delivery O2 Flow Rate FiO2 04/06/16 12:00 97.3 86 18 130/71 97 Room Air 04/06/16 08:00 96.6 89 20 122/67 97 Room Air 04/06/16 04:00 97.2 73 21 134/74 96 Room Air 04/06/16 00:03 97.7 82 19 126/64 98 Room Air 04/05/16 20:08 97.9 79 22 127/68 99 Room Air Height (Feet): 5 Height (Inches): 5.00 Weight (Pounds): 220 General Appearance: no acute distress HEENT: normocephalic, atraumatic, anicteric, mucous membranes moist, PERRL, EOMI, pharynx normal, supple, no JVD Respiratory/Chest: lungs clear, normal breath sounds, no respiratory distress, no accessory muscle use Cardiovascular: normal rate, regular rhythm, no gallop/murmur Abdomen: normal bowel sounds, soft, non tender, no organomegaly, non distended Genitourinary: other - no bay Extremities: no cyanosis Skin: no rash 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, alert, oriented x 3, responsive Lymphatic: no neck adenopathy Musculoskeletal: no effusion Objective chest x-ray - negative Microbiology Date/Time Source Procedure Growth Status 04/04/16 19:55 Blood Blood Culture - Preliminary Gram Negative Bacillus 1 Resulted 03/26/16 23:15 Stool Clostridium difficile Toxin Assay - Final Complete 03/25/16 21:50 Hip Left Gram Stain - Final Complete 03/25/16 21:50 Wound Culture - Final A.baumanii Complx - Mdr Staphylococcus Aureus - Mrsa Streptococcus Group A Complete Microbiology Date/Time Source Procedure Growth Status 04/04/16 19:55 Blood Blood Culture - Preliminary Gram Negative Bacillus 1 Resulted 04/04/16 19:45 Blood Blood Culture - Preliminary Resulted Laboratory Tests Test 04/06/16 06:00 White Blood Count 10.5 K/UL (4.8-10.8) Red Blood Count 3.86 M/UL (4.20-5.40) L Hemoglobin 10.6 G/DL (12.0-16.0) L Hematocrit 33.6 % (37.0-47.0) L Mean Corpuscular Volume 87 FL (80-99) Mean Corpuscular Hemoglobin 27.6 PG (27.0-31.0) Mean Corpuscular Hemoglobin Concent 31.7 G/DL (32.0-36.0) L Red Cell Distribution Width 15.1 % (11.6-14.8) H Platelet Count 230 K/UL (150-450) Mean Platelet Volume 7.9 FL (6.5-10.1) Neutrophils (%) (Auto) 81.2 % (45.0-75.0) H Lymphocytes (%) (Auto) 14.2 % (20.0-45.0) L Monocytes (%) (Auto) 2.2 % (1.0-10.0) Eosinophils (%) (Auto) 1.8 % (0.0-3.0) Basophils (%) (Auto) 0.5 % (0.0-2.0) Sodium Level 139 mEQ/L (135-145) Potassium Level 3.4 mEQ/L (3.4-4.9) Chloride Level 107 mEQ/L (98-107) Carbon Dioxide Level 21 mEQ/L (20-30) Anion Gap 11 (5-15) Blood Urea Nitrogen 8 mg/dL (7-23) Creatinine 0.6 mg/dL (0.5-0.9) Estimat Glomerular Filtration Rate > 60 mL/min (>60) Glucose Level 77 mg/dL (74-106) Calcium Level 7.6 mg/dL (8.6-10.2) L Current Medications Medications (Trade) Dose Ordered Sig/Pineda Route PRN Reason Start Time Stop Time Status Last Admin Dose Admin Acetaminophen (Tylenol) 650 mg Q4H PRN ORAL Mild Pain/Temp > 100.5 03/24/16 17:00 04/23/16 16:59 Diphenhydramine HCl (Benadryl) 25 mg Q4H PRN IVP Itching 03/24/16 17:00 04/23/16 16:59 04/06/16 09:42 Heparin Sodium (Porcine) 5000 units 5,000 units EVERY 12 HOURS SUBQ 03/24/16 21:00 04/23/16 20:59 03/30/16 22:26 Heparin Sodium/ Sodium Chloride 2000 unit 2,000 unit ONCE PRN INJ FOR PICC LINE 04/06/16 06:00 04/06/16 23:59 Hydrocortisone 1 applic 1 applic EVERY 6 HOURS PRN TOPIC Itching 03/27/16 10:00 04/26/16 09:59 03/28/16 00:22 Hydromorphone HCl (Dilaudid) 2 mg Q4H PRN IVP Severe Pain (Pain Scale 7-10) 03/31/16 18:00 04/07/16 17:59 04/06/16 09:42 Lidocaine HCl (Xylocaine 1% 30ml) 30 ml ONCE PRN INJ FOR PICC LINE 04/06/16 06:00 04/06/16 23:59 Linezolid (Zyvox) 300 ml @ 300 mls/hr EVERY 12 HOURS IVPB 03/29/16 21:00 04/07/16 23:59 04/06/16 10:32 Metronidazole (Flagyl) 500 mg EVERY 8 HOURS ORAL 04/06/16 06:00 04/13/16 05:59 04/06/16 14:07 Ondansetron HCl (Zofran) 4 mg Q4H PRN IVP Nausea & Vomiting 03/24/16 17:30 04/23/16 17:29 04/06/16 10:36 Polymyxin B Sulfate/Dextrose (Polymyxin B Sulfate/D5W 500ml) 500 ml @ 500 mls/hr EVERY 12 HOURS IVPB 04/05/16 23:00 04/12/16 22:59 04/06/16 08:14 Sodium Hypochlorite (Dakin's Half Strength) 1 applic Q24H TOPIC 04/05/16 02:00 05/05/16 01:59 04/06/16 04:24 Sodium Bicarbonate (Sodium Bicarbonate) 50 ml ONCE PRN IV for PICC Line 04/06/16 06:00 04/06/16 23:59 Sodium Chloride (Sodium Chloride 1000ml bag) 1,000 ml @ 75 mls/hr [id number] IV 03/27/16 08:00 04/26/16 07:59 04/06/16 08:14 GRZEGORZ MARTINEZ Apr 06, 2016 14:22
--- NOTE | 2016-04-06 14:29 | Diagnostic Imaging Report ---
Indications: Needs long-term IV access Technique: Ultrasound confirms patent compressible right basilic vein. Total sterile technique, including sterile probe cover and sterile gel, hat, mask,, sterile gown, large sterile drape, and preparation with 2% chlorhexidine utilized. Local anesthesia with 1% lidocaine. Under real-time ultrasound guidance, puncture basilic vein using 21-gauge needle, documented and archived, passage 0.018 guidewire under direct fluoroscopy, which was used to determine appropriate catheter length, exchange for 5 Armenian peel-away sheath. 5 Armenian Bard dual-lumen power PICC cut to 42 cm. It was inserted through the peel-away sheath. Peel-away sheath and guidewire removed. Catheter fixed to the skin. Both catheter ports aspirated and flushed. Patient tolerated procedure well, without immediate complication. Digital radiograph documents satisfactory catheter tip position, at the cavoatrial junction. Total fluoroscopy time 0.2 minutes. Total dose area product 10 dGycm2 Impression: Successful placement of right arm PICC under sonographic and fluoroscopic guidance, as described above.
[2016-04-06 16:00] VITALS: BP 129/60
--- NOTE | 2016-04-06 17:07 | Electroencephalogram ---
DATE OF PROCEDURE: 04/05/2016 ELECTROENCEPHALOGRAPHY REPORT REQUESTING PHYSICIAN: Thanh Glover M.D. HISTORY: This 40 years old female with a history of seizure disorder, now being treated for acute renal failure. She has been paraplegic, on antibiotics for UTI and sepsis and Dilaudid for pain management. TECHNIQUE: EEG was done using 18 electrodes placed scalp to scalp, scalp to ear montages according to 10/20 International System. Throughout the recording, background activity consists of well regulated 8 to 9 cycles per second, alpha activity with good response to physiological stimulation. Photic stimulation from 3 to 32 hertz was done, result no significant changes. No asymmetry from side to side. No spike or wave activities noted. IMPRESSION: Normal awake stage 1 sleep electroencephalogram with photic stimulation. COMMENT: Absence of paroxysmal event on a single recording does not rule out seizure disorder. Seven Brumfield M.D. DR: LYNSEY JOB#: [id number] CC:
[2016-04-06 20:06] VITALS: BP 129/68
[2016-04-07] VITALS: BP 125/73
[2016-04-07] MEDS: Dakin's 0.25% (Half Strength) 16oz TOPIC SCH (02:00)
[2016-04-07 04:00] VITALS: BP 125/63
[2016-04-07] MEDS: DiphenhydrAMINE 50mg/ml Inj IVP PRN ×5 (05:29→22:24)
[2016-04-07] MEDS: metroNIDAZOLE 500mg tab ORAL SCH ×3 (06:01→21:27)
[2016-04-07 08:00] VITALS: BP 114/71
--- NOTE | 2016-04-07 08:16 | General Progress Note ---
Assessment/Plan Problem List: (1) Acute renal failure ICD Codes: N17.9 - Acute kidney failure, unspecified SNOMED: 45724012 Qualifiers: Qualified Codes: N17.9 - Acute kidney failure, unspecified (2) Cellulitis ICD Codes: L03.90 - Cellulitis, unspecified SNOMED: 625764587 Qualifiers: Qualified Codes: L03.90 - Cellulitis, unspecified (3) Abscess ICD Codes: L02.91 - Abscess SNOMED: 216655747 (4) Generalized weakness ICD Codes: R53.1 - Weakness SNOMED: 39879762 (5) Abscess of hip, left ICD Codes: L02.416 - Cutaneous abscess of left lower limb SNOMED: 173050 (6) right hip wound (7) Bilateral edema of lower extremity ICD Codes: R60.0 - Localized edema SNOMED: 416253572 (8) Paraplegia ICD Codes: G82.20 - Paraplegia SNOMED: 62581525 Status: stable, progressing Assessment/Plan iv abx per id pain rx transfuse as needed wound care check eeg. done. no results yet dc planning if able to convert iv to oral abx. Subjective ROS Limited/Unobtainable: No Constitutional: Reports: malaise, weakness HEENT: Reports: no symptoms Cardiovascular: Reports: no symptoms Respiratory: Reports: no symptoms Gastrointestinal/Abdominal: Reports: no symptoms Genitourinary: Reports: no symptoms 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: Reports: pre-existing deficit Endocrine: Reports: no symptoms Hematologic/Lymphatic: Reports: anemia Allergies: Coded Allergies: CEFTRIAXONE (Verified Allergy, Intermediate, SOB, HR-140bpm, face swollen , pt became red, 10/24/15) CODEINE (Verified Allergy, Intermediate, SWELLING, 01/03/11) LATEX (Verified Allergy, Intermediate, SWELLING, 01/03/11) PIPERACILLIN (Verified Allergy, Intermediate, Itching, 08/29/15) 08/29/15 tolerates Ceftaroline TAZOBACTAM (Verified Allergy, Intermediate, Itching, 01/29/15) VANCOMYCIN (Verified Allergy, Mild, 07/15/14) ASPARAGINASE (Verified Allergy, Unknown, 01/28/14) IRON (Verified Allergy, Unknown, 01/28/14) All Systems: reviewed and negative except above Subjective no szs. feels weak. c/o of feeling "swollen." off ivf. remains on iv abx. eeg completed. on po flagyl and iv linezolid and polymyxin. Objective Last 24 Hour Vital Signs Date Time Temp Pulse Resp B/P Pulse Ox O2 Delivery O2 Flow Rate FiO2 04/07/16 08:00 97.9 104 20 114/71 98 Room Air 04/07/16 04:00 97.0 89 18 125/63 99 Room Air 04/07/16 00:00 98.1 91 18 125/73 98 Room Air 04/06/16 20:06 98.6 98 21 129/68 97 Room Air 04/06/16 16:00 97.7 95 20 129/60 97 Room Air 04/06/16 12:00 97.3 86 18 130/71 97 Room Air Intake and Output 04/06/16 04/07/16 19:00 07:00 Intake Total 1225 ml 1125 ml Balance 1225 ml 1125 ml Intake Oral 200 ml 750 ml IV Total 1025 ml 375 ml # Voids 1 3 # Bowel Movements 1 Height (Feet): 5 Height (Inches): 5.00 Weight (Pounds): 220 Objective General Appearance: WD/WN, alert Neck: supple Cardiovascular: normal rate, regular rhythm Respiratory/Chest: chest wall non-tender, lungs clear, normal breath sounds, no respiratory distress Abdomen: normal bowel sounds, non tender, soft, no organomegaly Edema: no edema noted Arm (L), no edema noted Arm (R), no edema noted Leg (L), no edema noted Leg (R), no edema noted Pedal (L), no edema noted Pedal (R), no edema noted Generalized Neurologic: motor weakness Skin: other - sacral and bilateral hip wounds BONG BRUNNER Apr 07, 2016 08:16
[2016-04-07] MEDS: Heparin 5000 units/ml inj SUBQ SCH ×2 (09:00→21:00)
[2016-04-07] MEDS: Polymyxin B Sulfate 500,000 UNITS in D5W 500ml 500 ML IVPB SCH (09:21)
[2016-04-07 12:50] VITALS: BP 136/71
[2016-04-07 15:56] VITALS: BP 134/76
--- NOTE | 2016-04-07 19:41 | Infectious Diseases Prog Note ---
Assessment/Plan Assessment/Plan ASSESSMENT AND PLAN: 1. mrsa/acinetobacter/strep bilateral hip/thigh wound infection, mssa/strep bacteremia, c.diff. 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 picc line infection - picc line changed - surveillance bc ordered, check echo - ? drug rash to polymyxin, rash developed after polymyxin started on 04/05 - change abx to tygacil and flagyl - watch labs - cannot get ua and culture - d/w pharmacy about abx change - supportive care for rash 3. Anemia, lois resolved, ? sz 4. Weight loss 5. History of osteoarthritis and treatment. 6. Colostomy. 7. Paraplegia. 8. Anemia. 9. ? diabetes - patient denies dm hx, bs elevated only with infection per pt 10. Chronic pain management and chronic pain syndrome. 11. History of cholelithiasis. 12. Pain management for primary. 13. Multiple allergies to asparaginase, Rocephin, codeine, iron, Latex, piperacillin, tazobactam, and vancomycin. 14. wound care per protocol and surgery 15. The case was discussed with RN about rash 16. The case was discussed with the patient. 17. fh-nc, sh-negative, mar noted 18. patient not stable for discharge, d/w case mgt 19. time spent - 33 minutes Subjective Constitutional: Denies: fever Respiratory: Denies: shortness of breath Cardiovascular: Denies: chest pain Gastrointestinal/Abdominal: Reports: other - + colostomy, Denies: nausea, vomiting Genitourinary: Reports: other - no bay Neurologic: Denies: headache Psychiatric: Denies: depression Skin: Reports: rash Hematologic: Denies: bleeding Musculoskeletal: Denies: pain Allergies: Coded Allergies: CEFTRIAXONE (Verified Allergy, Intermediate, SOB, HR-140bpm, face swollen , pt became red, 10/24/15) CODEINE (Verified Allergy, Intermediate, SWELLING, 01/03/11) LATEX (Verified Allergy, Intermediate, SWELLING, 01/03/11) PIPERACILLIN (Verified Allergy, Intermediate, Itching, 08/29/15) 08/29/15 tolerates Ceftaroline TAZOBACTAM (Verified Allergy, Intermediate, Itching, 01/29/15) VANCOMYCIN (Verified Allergy, Mild, 07/15/14) ASPARAGINASE (Verified Allergy, Unknown, 01/28/14) IRON (Verified Allergy, Unknown, 01/28/14) Objective Vital Signs Last 24 Hour Vital Signs Date Time Temp Pulse Resp B/P Pulse Ox O2 Delivery O2 Flow Rate FiO2 04/07/16 15:56 97.9 80 19 134/76 98 Room Air 04/07/16 12:50 97.7 92 20 136/71 100 Room Air 04/07/16 08:00 97.9 104 20 114/71 98 Room Air 04/07/16 04:00 97.0 89 18 125/63 99 Room Air 04/07/16 00:00 98.1 91 18 125/73 98 Room Air 04/06/16 20:06 98.6 98 21 129/68 97 Room Air Height (Feet): 5 Height (Inches): 5.00 Weight (Pounds): 220 General Appearance: no acute distress HEENT: normocephalic, atraumatic, anicteric, mucous membranes moist, PERRL, EOMI, pharynx normal, supple, no JVD Respiratory/Chest: lungs clear, normal breath sounds, no respiratory distress, no accessory muscle use Cardiovascular: normal rate, regular rhythm, regularly irregular, no gallop/ murmur, no JVD Abdomen: normal bowel sounds, soft, non tender, no organomegaly, other - + colostomy Genitourinary: other - no bay Extremities: no cyanosis Skin: no rash 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8-10.8) 10.5 K/UL (4.8-10.8) Red Blood Count 3.77 M/UL (4.20-5.40) 3.86 M/UL (4.20-5.40) Hemoglobin 10.5 G/DL (12.0-16.0) 10.6 G/DL (12.0-16.0) Hematocrit 33.2 % (37.0-47.0) 33.6 % (37.0-47.0) Mean Corpuscular Volume 88 FL (80-99) 87 FL (80-99) Mean Corpuscular Hemoglobin 27.9 PG (27.0-31.0) 27.6 PG (27.0-31.0) Mean Corpuscular Hemoglobin Concent 31.7 G/DL (32.0-36.0) 31.7 G/DL (32.0-36.0) Red Cell Distribution Width 15.3 % (11.6-14.8) 15.1 % (11.6-14.8) Platelet Count 257 K/UL (150-450) 230 K/UL (150-450) Mean Platelet Volume 6.7 FL (6.5-10.1) 7.9 FL (6.5-10.1) Neutrophils (%) (Auto) 79.8 % (45.0-75.0) 81.2 % (45.0-75.0) Lymphocytes (%) (Auto) 16.3 % (20.0-45.0) 14.2 % (20.0-45.0) Monocytes (%) (Auto) 1.8 % (1.0-10.0) 2.2 % (1.0-10.0) Eosinophils (%) (Auto) 1.8 % (0.0-3.0) 1.8 % (0.0-3.0) Basophils (%) (Auto) 0.3 % (0.0-2.0) 0.5 % (0.0-2.0) Sodium Level 140 mEQ/L (135-145) 139 mEQ/L (135-145) Potassium Level 3.7 mEQ/L (3.4-4.9) 3.4 mEQ/L (3.4-4.9) Chloride Level 104 mEQ/L (98-107) 107 mEQ/L (98-107) Carbon Dioxide Level 21 mEQ/L (20-30) 21 mEQ/L (20-30) Anion Gap 15 (5-15) 11 (5-15) Blood Urea Nitrogen 9 mg/dL (7-23) 8 mg/dL (7-23) Creatinine 0.6 mg/dL (0.5-0.9) 0.6 mg/dL (0.5-0.9) Estimat Glomerular Filtration Rate > 60 mL/min (>60) > 60 mL/min (>60) Glucose Level 67 mg/dL (74-106) 77 mg/dL (74-106) Calcium Level 7.7 mg/dL (8.6-10.2) 7.6 mg/dL (8.6-10.2) Current Medications Medications (Trade) Dose Ordered Sig/Pineda Route PRN Reason Start Time Stop Time Status Last Admin Dose Admin Acetaminophen (Tylenol) 650 mg Q4H PRN ORAL Mild Pain/Temp > 100.5 03/24/16 17:00 04/23/16 16:59 Diphenhydramine HCl (Benadryl) 25 mg Q4H PRN IVP Itching 03/24/16 17:00 04/23/16 16:59 04/07/16 17:35 Heparin Sodium (Porcine) 5000 units 5,000 units EVERY 12 HOURS SUBQ 03/24/16 21:00 04/23/16 20:59 03/30/16 22:26 Hydrocortisone (Hydrocortisone) 1 applic EVERY 6 HOURS PRN TOPIC Itching 03/27/16 10:00 04/26/16 09:59 03/28/16 00:22 Linezolid (Zyvox) 300 ml @ 300 mls/hr EVERY 12 HOURS IVPB 04/06/16 21:00 04/15/16 20:59 04/07/16 09:22 Metronidazole 500 mg 500 mg EVERY 8 HOURS ORAL 04/06/16 06:00 04/13/16 05:59 04/07/16 14:19 Ondansetron HCl (Zofran) 4 mg Q4H PRN IVP Nausea & Vomiting 03/24/16 17:30 04/23/16 17:29 04/07/16 14:14 Polymyxin B Sulfate/Dextrose (Polymyxin B Sulfate/D5W 500ml) 500 ml @ 500 mls/hr EVERY 12 HOURS IVPB 04/05/16 23:00 04/12/16 22:59 04/07/16 09:21 Sodium Hypochlorite 1 applic 1 applic Q24H TOPIC 04/05/16 02:00 05/05/16 01:59 04/06/16 04:24 Sodium Chloride (Sodium Chloride 1000ml bag) 1,000 ml @ 75 mls/hr [id number] IV 03/27/16 08:00 04/26/16 07:59 04/07/16 03:08 GRZEGORZ MARTINEZ Apr 07, 2016 19:41
[2016-04-07 20:00] VITALS: BP 124/66
[2016-04-08 00:30] VITALS: BP 120/62
[2016-04-08] MEDS: Dakin's 0.25% (Half Strength) 16oz TOPIC SCH (02:00)
[2016-04-08 04:00] VITALS: BP 119/72
[2016-04-08] MEDS: DiphenhydrAMINE 50mg/ml Inj IVP PRN ×5 (04:58→22:19)
[2016-04-08] MEDS: metroNIDAZOLE 500mg tab ORAL SCH ×3 (05:54→22:19)
[2016-04-08 07:04] LABS: BASOPHILS % (AUTO) 0.4 % (0.0-2.0); EOSINOPHILS % (AUTO) 1.6 % (0.0-3.0); LYMPHOCYTES % (AUTO) 17.2 % (20.0-45.0); MEAN CORPUSCULAR HEMOGLOBIN 27.6 PG (27.0-31.0); MEAN CORPUSCULAR HGB CONC 31.9 G/DL (32.0-36.0); MEAN CORPUSCULAR VOLUME 87 FL (80-99); MEAN PLATELET VOLUME 7.4 FL (6.5-10.1); MONOCYTES % (AUTO) 2.1 % (1.0-10.0); NEUTROPHILS % (AUTO) 78.7 % (45.0-75.0); PLATELET COUNT 145 K/UL (150-450); RED BLOOD COUNT 3.65 M/UL (4.20-5.40); WHITE BLOOD COUNT 8.5 K/UL (4.8-10.8)
[2016-04-08 07:09] LABS: ANION GAP 15 (5-15); CALCIUM 7.3 mg/dL (8.6-10.2); CARBON DIOXIDE 22 mEQ/L (20-30); CHLORIDE 104 mEQ/L (98-107); CREATININE 0.6 mg/dL (0.5-0.9); GLOMERULAR FILTRATION RATE > 60 mL/min (>60); HEMOLYSIS 4; POTASSIUM 3.5 mEQ/L (3.4-4.9); SODIUM 141 mEQ/L (135-145)
--- NOTE | 2016-04-08 08:10 | General Progress Note ---
Assessment/Plan Assessment/Plan ASSESSMENT AND PLAN: 1. mrsa/acinetobacter/strep bilateral hip/thigh wound infection, mssa/strep bacteremia, 3. Anemia, 4. Weight loss 5. History of osteoarthritis and treatment. 6. Colostomy. 7. Paraplegia. 8. Cdif 9. elevated blood sugars 10. Chronic pain management and chronic pain syndrome. 11. drug rash PLAN IV antibiotics ID clearance monitor for change pain control ?IV antibiotics at home nutrition impression, plan, and exam edited and reviewed in detail care discussed with RN Subjective Allergies: Coded Allergies: CEFTRIAXONE (Verified Allergy, Intermediate, SOB, HR-140bpm, face swollen , pt became red, 10/24/15) CODEINE (Verified Allergy, Intermediate, SWELLING, 01/03/11) LATEX (Verified Allergy, Intermediate, SWELLING, 01/03/11) PIPERACILLIN (Verified Allergy, Intermediate, Itching, 08/29/15) 08/29/15 tolerates Ceftaroline TAZOBACTAM (Verified Allergy, Intermediate, Itching, 01/29/15) VANCOMYCIN (Verified Allergy, Mild, 07/15/14) ASPARAGINASE (Verified Allergy, Unknown, 01/28/14) IRON (Verified Allergy, Unknown, 01/28/14) Subjective weak alert Objective Last 24 Hour Vital Signs Date Time Temp Pulse Resp B/P Pulse Ox O2 Delivery O2 Flow Rate FiO2 04/08/16 05:28 97.9 04/08/16 04:00 97.7 102 16 119/72 98 Room Air 04/08/16 00:30 97.9 100 18 120/62 99 Room Air 04/07/16 20:00 97.0 97 18 124/66 100 Room Air 04/07/16 15:56 97.9 80 19 134/76 98 Room Air 04/07/16 12:50 97.7 92 20 136/71 100 Room Air Intake and Output 04/07/16 04/08/16 19:00 07:00 Intake Total 300 ml 740 ml Balance 300 ml 740 ml Intake Oral 300 ml 640 ml IV Total 100 ml # Voids 3 Laboratory Tests 04/08/16 05:00: White Blood Count 8.5, Red Blood Count 3.65L, Hemoglobin 10.1L, Hematocrit 31.6L , Mean Corpuscular Volume 87, Mean Corpuscular Hemoglobin 27.6, Mean Corpuscular Hemoglobin Concent 31.9L, Red Cell Distribution Width 15.0H, Platelet Count 145L, Mean Platelet Volume 7.4, Neutrophils (%) (Auto) 78.7H, Lymphocytes (%) (Auto) 17.2L, Monocytes (%) (Auto) 2.1, Eosinophils (%) (Auto) 1.6, Basophils (%) (Auto) 0.4, Sodium Level 141, Potassium Level 3.5, Chloride Level 104, Carbon Dioxide Level 22, Anion Gap 15, Blood Urea Nitrogen 9, Creatinine 0.6, Estimat Glomerular Filtration Rate > 60, Glucose Level 78, Calcium Level 7.3L Height (Feet): 5 Height (Inches): 5.00 Weight (Pounds): 220 Objective WDWN NAD clear breath sounds bilaterally without rhonchi or wheeze [id number] without MRG NABS nontender no HSM no CCE paraplegia wounds noted LUANN MICHEL Apr 08, 2016 08:10
[2016-04-08 08:32] VITALS: BP 111/71
[2016-04-08] MEDS: Heparin 5000 units/ml inj SUBQ SCH ×2 (09:00→20:18)
[2016-04-08 12:30] VITALS: BP 115/79
[2016-04-08 16:00] VITALS: BP 133/74
[2016-04-08 20:00] VITALS: BP 127/71
[2016-04-09] VITALS: BP 121/69
[2016-04-09] MEDS: Dakin's 0.25% (Half Strength) 16oz TOPIC SCH (02:00)
[2016-04-09] MEDS: DiphenhydrAMINE 50mg/ml Inj IVP PRN ×5 (03:59→21:37)
[2016-04-09 04:00] VITALS: BP 116/71
[2016-04-09] MEDS: metroNIDAZOLE 500mg tab ORAL SCH ×3 (06:35→21:48)
[2016-04-09 08:00] VITALS: BP 128/71
--- NOTE | 2016-04-09 08:57 | General Progress Note ---
Assessment/Plan Assessment/Plan ASSESSMENT AND PLAN: 1. mrsa/acinetobacter/strep bilateral hip/thigh wound infection, mssa/strep bacteremia, 3. Anemia, 4. Weight loss 5. History of osteoarthritis and treatment. 6. Colostomy. 7. Paraplegia. 8. Cdif 9. elevated blood sugars 10. Chronic pain management and chronic pain syndrome. 11. drug rash PLAN IV antibiotics ID clearance and plan pending monitor for change pain control ?IV antibiotics at home vs. PO encourage po intake nutrition impression, plan, and exam edited and reviewed in detail care discussed with RN Subjective Allergies: Coded Allergies: CEFTRIAXONE (Verified Allergy, Intermediate, SOB, HR-140bpm, face swollen , pt became red, 10/24/15) CODEINE (Verified Allergy, Intermediate, SWELLING, 01/03/11) LATEX (Verified Allergy, Intermediate, SWELLING, 01/03/11) PIPERACILLIN (Verified Allergy, Intermediate, Itching, 08/29/15) 08/29/15 tolerates Ceftaroline TAZOBACTAM (Verified Allergy, Intermediate, Itching, 01/29/15) POLYMYXIN B (Verified Allergy, Mild, Rash, 04/08/16) Suspected allergy reported by VANCOMYCIN (Verified Allergy, Mild, 07/15/14) ASPARAGINASE (Verified Allergy, Unknown, 01/28/14) IRON (Verified Allergy, Unknown, 01/28/14) Subjective weak alert does not want snf Objective Last 24 Hour Vital Signs Date Time Temp Pulse Resp B/P Pulse Ox O2 Delivery O2 Flow Rate FiO2 04/09/16 04:29 97.8 04/09/16 04:00 97.6 88 18 116/71 100 Room Air 04/09/16 00:00 97.8 90 18 121/69 100 Room Air 04/08/16 20:00 97.9 91 20 127/71 100 Room Air 04/08/16 16:00 97.7 93 18 133/74 99 Room Air 04/08/16 12:30 97.7 60 18 115/79 100 Room Air Intake and Output 04/08/16 04/09/16 19:00 07:00 Intake Total 220 ml 820 ml Balance 220 ml 820 ml Intake Oral 120 ml 495 ml IV Total 100 ml 325 ml Height (Feet): 5 Height (Inches): 5.00 Weight (Pounds): 220 Objective WDWN NAD clear breath sounds bilaterally without rhonchi or wheeze [id number] without MRG NABS nontender no HSM no CCE paraplegia wounds noted LUANN MICHEL Apr 09, 2016 08:57
[2016-04-09] MEDS: Heparin 5000 units/ml inj SUBQ SCH ×2 (08:58→21:00)
[2016-04-09 12:00] VITALS: BP 110/64
--- NOTE | 2016-04-09 13:24 | Infectious Diseases Prog Note ---
Assessment/Plan Assessment/Plan ASSESSMENT AND PLAN: 1. mrsa/acinetobacter/strep bilateral hip/thigh wound infection, mssa/strep bacteremia, c.diff. 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 picc line infection - picc line changed - await surveillance bc, check echo - ? drug rash to polymyxin, rash developed after polymyxin started on 04/05 - polymyxin discontinued - tygacil - day # 2 abx, will need home iv abx to treat acinetobacter bacteremia - flagyl for one week more for 3 weeks prolonged c.diff treatment - watch labs - cannot get ua and culture - supportive care for rash 3. Anemia, lois resolved, ? sz 4. Weight loss 5. History of osteoarthritis and treatment. 6. Colostomy. 7. Paraplegia. 8. Anemia. 9. ? diabetes - patient denies dm hx, bs elevated only with infection per pt 10. Chronic pain management and chronic pain syndrome. 11. History of cholelithiasis. 12. Pain management for primary. 13. Multiple allergies to asparaginase, Rocephin, codeine, iron, Latex, piperacillin, tazobactam, and vancomycin. 14. wound care per protocol and surgery 15. The case was discussed with RN about rash 16. The case was discussed with the patient. 17. fh-nc, sh-negative, mar noted 18. patient not stable for discharge, d/w case mgt 19. time spent - 33 minutes Subjective Constitutional: Denies: fever HEENT: Denies: congestion Respiratory: Denies: shortness of breath Cardiovascular: Denies: chest pain Gastrointestinal/Abdominal: Reports: other - + colostomy, Denies: nausea, vomiting Neurologic: Denies: headache Psychiatric: Denies: depression Skin: Reports: other - + rash and itching, rash Hematologic: Denies: bleeding Musculoskeletal: Reports: pain Allergies: Coded Allergies: CEFTRIAXONE (Verified Allergy, Intermediate, SOB, HR-140bpm, face swollen , pt became red, 10/24/15) CODEINE (Verified Allergy, Intermediate, SWELLING, 01/03/11) LATEX (Verified Allergy, Intermediate, SWELLING, 01/03/11) PIPERACILLIN (Verified Allergy, Intermediate, Itching, 08/29/15) 08/29/15 tolerates Ceftaroline TAZOBACTAM (Verified Allergy, Intermediate, Itching, 01/29/15) POLYMYXIN B (Verified Allergy, Mild, Rash, 04/08/16) Suspected allergy reported by VANCOMYCIN (Verified Allergy, Mild, 07/15/14) ASPARAGINASE (Verified Allergy, Unknown, 01/28/14) IRON (Verified Allergy, Unknown, 01/28/14) Objective Vital Signs Last 24 Hour Vital Signs Date Time Temp Pulse Resp B/P Pulse Ox O2 Delivery O2 Flow Rate FiO2 04/09/16 09:43 97.8 04/09/16 08:00 98.2 93 20 128/71 97 Room Air 04/09/16 04:00 97.6 88 18 116/71 100 Room Air 04/09/16 00:00 97.8 90 18 121/69 100 Room Air 04/08/16 20:00 97.9 91 20 127/71 100 Room Air 04/08/16 16:00 97.7 93 18 133/74 99 Room Air Height (Feet): 5 Height (Inches): 5.00 Weight (Pounds): 220 General Appearance: no acute distress HEENT: normocephalic, atraumatic, anicteric, mucous membranes moist, PERRL, EOMI, pharynx normal, supple, no JVD Respiratory/Chest: lungs clear, normal breath sounds, no respiratory distress, no accessory muscle use Cardiovascular: normal rate, regular rhythm, no gallop/murmur, no JVD Abdomen: normal bowel sounds, soft, non tender, no organomegaly, non distended Genitourinary: other - no bay Extremities: no cyanosis Skin: rash - no change in rash on arms, ? 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, alert, oriented x 3, responsive Lymphatic: no neck adenopathy Musculoskeletal: no effusion Objective chest x-ray - negative Microbiology Date/Time Source Procedure Growth Status 04/06/16 16:50 Blood Blood Culture - Preliminary Gram Negative Bacillus 1 Staphylococcus Sp Coag Neg Resulted Labs Test 04/08/16 05:00 White Blood Count 8.5 K/UL (4.8-10.8) Red Blood Count 3.65 M/UL (4.20-5.40) Hemoglobin 10.1 G/DL (12.0-16.0) Hematocrit 31.6 % (37.0-47.0) Mean Corpuscular Volume 87 FL (80-99) Mean Corpuscular Hemoglobin 27.6 PG (27.0-31.0) Mean Corpuscular Hemoglobin Concent 31.9 G/DL (32.0-36.0) Red Cell Distribution Width 15.0 % (11.6-14.8) Platelet Count 145 K/UL (150-450) Mean Platelet Volume 7.4 FL (6.5-10.1) Neutrophils (%) (Auto) 78.7 % (45.0-75.0) Lymphocytes (%) (Auto) 17.2 % (20.0-45.0) Monocytes (%) (Auto) 2.1 % (1.0-10.0) Eosinophils (%) (Auto) 1.6 % (0.0-3.0) Basophils (%) (Auto) 0.4 % (0.0-2.0) Sodium Level 141 mEQ/L (135-145) Potassium Level 3.5 mEQ/L (3.4-4.9) Chloride Level 104 mEQ/L (98-107) Carbon Dioxide Level 22 mEQ/L (20-30) Anion Gap 15 (5-15) Blood Urea Nitrogen 9 mg/dL (7-23) Creatinine 0.6 mg/dL (0.5-0.9) Estimat Glomerular Filtration Rate > 60 mL/min (>60) Glucose Level 78 mg/dL (74-106) Calcium Level 7.3 mg/dL (8.6-10.2) Current Medications Medications (Trade) Dose Ordered Sig/Pineda Route PRN Reason Start Time Stop Time Status Last Admin Dose Admin Acetaminophen (Tylenol) 650 mg Q4H PRN ORAL Mild Pain/Temp > 100.5 03/24/16 17:00 04/23/16 16:59 Diphenhydramine HCl (Benadryl) 25 mg Q4H PRN IVP Itching 03/24/16 17:00 04/23/16 16:59 04/09/16 09:12 Heparin Sodium (Porcine) 5000 units 5,000 units EVERY 12 HOURS SUBQ 03/24/16 21:00 04/23/16 20:59 03/30/16 22:26 Hydrocortisone (Hydrocortisone) 1 applic EVERY 6 HOURS PRN TOPIC Itching 03/27/16 10:00 04/26/16 09:59 03/28/16 00:22 Hydromorphone HCl (Dilaudid) 2 mg Q4H PRN IVP for severe 7-10 pain 04/07/16 22:15 04/14/16 22:14 04/09/16 09:13 Metronidazole 500 mg 500 mg EVERY 8 HOURS ORAL 04/06/16 06:00 04/13/16 05:59 04/09/16 06:35 Ondansetron HCl (Zofran) 4 mg Q4H PRN IVP Nausea & Vomiting 03/24/16 17:30 04/23/16 17:29 04/08/16 09:20 Sodium Hypochlorite (Dakin's Half Strength) 1 applic Q24H TOPIC 04/05/16 02:00 05/05/16 01:59 04/06/16 04:24 Sodium Chloride (Sodium Chloride 1000ml bag) 1,000 ml @ 75 mls/hr [id number] IV 03/27/16 08:00 04/26/16 07:59 04/09/16 03:58 Tigecycline/ Sodium Chloride (Tygacil/Sodium Chloride 100ml bag) 100 ml @ 200 mls/hr EVERY 12 HOURS IVPB 04/08/16 09:00 04/15/16 08:59 04/09/16 09:14 GRZEGORZ MARTINEZ Apr 09, 2016 13:24
--- NOTE | 2016-04-09 14:42 | Cardiology Report ---
APPROVED REPORT EXAM: Two-dimensional and M-mode echocardiogram with Doppler and color Doppler. INDICATION Vegetation M-Mode DIMENSIONS IVSd1.2 (0.7-1.1cm)Left Atrium (MM)3.0 (1.6-4.0cm) LVDd5.5 (3.5-5.6cm)Aortic Root3.3 (2.0-3.7cm) PWd1.4 (0.7-1.1cm)Aortic Cusp Exc.2.3 (1.5-2.0cm) LVDs3.4 (2.5-4.0cm) PWs1.6 cm Technically difficult study due to pts position. Normal left ventricular chamber size, systolic function and wall motion to extent visualized. Left ventricular ejection fraction estimated to be 60 %. Borderline mild left ventricular hypertrophy. Trivial posterior pericardial effusion. Mild bi-atrial enlargement. Right ventricular chamber size is within normal limits. Mild focal aortic valve sclerosis with adequate cusp excursion. Mildly thickened mitral valve leaflets with normal excursion. Mitral annulus and aortic root calcification. Normal pulmonic valve structure. Normal tricuspid valve structure. IVC at normal size with physiologic collapse. A color flow and spectral Doppler study was performed and revealed: No aortic regurgitation. No aortic stenosis. Trace mitral regurgitation. No mitral stenosis. Mitral diastolic velocities suggest reduced left ventricular relaxation c/w mild LV diastolic dysfunction (Grade I). Mild tricuspid regurgitation. Tricuspid systolic velocities suggests peak right ventricular systolic pressure of 42 mmHg, consistent with mild pulmonary hypertension. Mild pulmonic regurgitation present.
[2016-04-09 16:00] VITALS: BP 113/69
[2016-04-09 19:00] VITALS: BP 114/63
[2016-04-10] VITALS: BP 126/60
[2016-04-10] MEDS: Dakin's 0.25% (Half Strength) 16oz TOPIC SCH (02:00)
[2016-04-10 04:00] VITALS: BP 126/69
[2016-04-10] MEDS: metroNIDAZOLE 500mg tab ORAL SCH ×3 (05:15→22:20)
[2016-04-10] MEDS: DiphenhydrAMINE 50mg/ml Inj IVP PRN ×4 (05:19→18:39)
[2016-04-10] MEDS: Heparin 5000 units/ml inj SUBQ SCH ×2 (09:00→21:00)
--- NOTE | 2016-04-10 10:33 | Infectious Diseases Prog Note ---
Assessment/Plan Assessment/Plan ASSESSMENT AND PLAN: 1. mrsa/acinetobacter/strep bilateral hip/thigh wound infection, mssa/strep bacteremia, c.diff. 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 picc line infection - picc line changed - await surveillance bc, echo without vegetations mentioned - ? drug rash to polymyxin, rash developed after polymyxin started on 04/05 - polymyxin discontinued - tygacil - day # 3/ abx, will need home iv abx to treat acinetobacter bacteremia - flagyl for 6 days more for 3 weeks prolonged c.diff treatment - watch labs - cannot get ua and culture - n/v maybe secondary to tygacil but is necessary anti-biotic, continue zofran - supportive care for rash 3. Anemia, lois resolved, ? sz 4. Weight loss 5. History of osteoarthritis and treatment. 6. Colostomy. 7. Paraplegia. 8. Anemia. 9. ? diabetes - patient denies dm hx, bs elevated only with infection per pt 10. Chronic pain management and chronic pain syndrome. 11. History of cholelithiasis. 12. Pain management for primary. 13. Multiple allergies to asparaginase, Rocephin, codeine, iron, Latex, piperacillin, tazobactam, and vancomycin. 14. wound care per protocol and surgery 15. The case was discussed with RN about rash 16. The case was discussed with the patient. 17. fh-nc, sh-negative, mar noted 18. patient not stable for discharge, d/w case mgt 19. time spent - 33 minutes Subjective Constitutional: Denies: fever HEENT: Denies: congestion Respiratory: Denies: shortness of breath Cardiovascular: Denies: chest pain Gastrointestinal/Abdominal: Reports: nausea, other - + colostomy, vomiting Neurologic: Denies: headache Psychiatric: Denies: depression Skin: Reports: other - no change , rash Hematologic: Denies: bleeding Musculoskeletal: Denies: pain Allergies: Coded Allergies: CEFTRIAXONE (Verified Allergy, Intermediate, SOB, HR-140bpm, face swollen , pt became red, 10/24/15) CODEINE (Verified Allergy, Intermediate, SWELLING, 01/03/11) LATEX (Verified Allergy, Intermediate, SWELLING, 01/03/11) PIPERACILLIN (Verified Allergy, Intermediate, Itching, 08/29/15) 08/29/15 tolerates Ceftaroline TAZOBACTAM (Verified Allergy, Intermediate, Itching, 01/29/15) POLYMYXIN B (Verified Allergy, Mild, Rash, 04/08/16) Suspected allergy reported by VANCOMYCIN (Verified Allergy, Mild, 07/15/14) ASPARAGINASE (Verified Allergy, Unknown, 01/28/14) IRON (Verified Allergy, Unknown, 01/28/14) Objective Vital Signs Last 24 Hour Vital Signs Date Time Temp Pulse Resp B/P Pulse Ox O2 Delivery O2 Flow Rate FiO2 04/10/16 09:45 97.7 04/10/16 04:00 98.1 128 20 126/69 97 Room Air 04/10/16 00:00 97.7 106 20 126/60 98 Room Air 04/09/16 19:00 98.1 100 20 114/63 96 Room Air 04/09/16 16:00 97.3 100 20 113/69 98 Room Air 04/09/16 12:00 98.6 90 20 110/64 97 Room Air Height (Feet): 5 Height (Inches): 5.00 Weight (Pounds): 220 General Appearance: no acute distress HEENT: normocephalic, atraumatic, anicteric, mucous membranes moist, PERRL, EOMI, pharynx normal, supple, no JVD Respiratory/Chest: lungs clear, normal breath sounds, no respiratory distress, no accessory muscle use Cardiovascular: normal rate, regular rhythm, no gallop/murmur, no JVD Abdomen: normal bowel sounds, soft, non tender, no organomegaly, non distended Genitourinary: other - no bay Extremities: no cyanosis Skin: no rash, other - wounds covered 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, alert, responsive, motor weakness Lymphatic: no neck adenopathy Musculoskeletal: no effusion Objective chest x-ray - negative Microbiology Date/Time Source Procedure Growth Status 04/06/16 16:50 Blood Blood Culture - Final A.baumanii Complx - Mdr Staphylococcus Sp Coag Neg Complete 04/06/16 12:30 Other(Specify in comment) Catheter Tip Culture - Final NO GROWTH AFTER 4 DAYS Complete 03/26/16 23:15 Stool Clostridium difficile Toxin Assay - Final Complete 03/25/16 21:50 Hip Left Gram Stain - Final Complete 03/25/16 21:50 Wound Culture - Final A.baumanii Complx - Mdr Staphylococcus Aureus - Mrsa Streptococcus Group A Complete Labs Test 04/08/16 05:00 White Blood Count 8.5 K/UL (4.8-10.8) Red Blood Count 3.65 M/UL (4.20-5.40) Hemoglobin 10.1 G/DL (12.0-16.0) Hematocrit 31.6 % (37.0-47.0) Mean Corpuscular Volume 87 FL (80-99) Mean Corpuscular Hemoglobin 27.6 PG (27.0-31.0) Mean Corpuscular Hemoglobin Concent 31.9 G/DL (32.0-36.0) Red Cell Distribution Width 15.0 % (11.6-14.8) Platelet Count 145 K/UL (150-450) Mean Platelet Volume 7.4 FL (6.5-10.1) Neutrophils (%) (Auto) 78.7 % (45.0-75.0) Lymphocytes (%) (Auto) 17.2 % (20.0-45.0) Monocytes (%) (Auto) 2.1 % (1.0-10.0) Eosinophils (%) (Auto) 1.6 % (0.0-3.0) Basophils (%) (Auto) 0.4 % (0.0-2.0) Sodium Level 141 mEQ/L (135-145) Potassium Level 3.5 mEQ/L (3.4-4.9) Chloride Level 104 mEQ/L (98-107) Carbon Dioxide Level 22 mEQ/L (20-30) Anion Gap 15 (5-15) Blood Urea Nitrogen 9 mg/dL (7-23) Creatinine 0.6 mg/dL (0.5-0.9) Estimat Glomerular Filtration Rate > 60 mL/min (>60) Glucose Level 78 mg/dL (74-106) Calcium Level 7.3 mg/dL (8.6-10.2) Current Medications Medications (Trade) Dose Ordered Sig/Pineda Route PRN Reason Start Time Stop Time Status Last Admin Dose Admin Acetaminophen (Tylenol) 650 mg Q4H PRN ORAL Mild Pain/Temp > 100.5 03/24/16 17:00 04/23/16 16:59 Diphenhydramine HCl (Benadryl) 25 mg Q4H PRN IVP Itching 03/24/16 17:00 04/23/16 16:59 04/10/16 09:14 Heparin Sodium (Porcine) 5000 units 5,000 units EVERY 12 HOURS SUBQ 03/24/16 21:00 04/23/16 20:59 03/30/16 22:26 Hydrocortisone (Hydrocortisone) 1 applic EVERY 6 HOURS PRN TOPIC Itching 03/27/16 10:00 04/26/16 09:59 03/28/16 00:22 Hydromorphone HCl (Dilaudid) 2 mg Q4H PRN IVP for severe 7-10 pain 04/07/16 22:15 04/14/16 22:14 04/10/16 09:15 Metronidazole 500 mg 500 mg EVERY 8 HOURS ORAL 04/06/16 06:00 04/13/16 05:59 04/10/16 05:15 Ondansetron HCl (Zofran) 4 mg Q4H PRN IVP Nausea & Vomiting 03/24/16 17:30 04/23/16 17:29 04/09/16 13:46 Sodium Hypochlorite (Dakin's Half Strength) 1 applic Q24H TOPIC 04/05/16 02:00 05/05/16 01:59 04/10/16 02:00 Sodium Chloride (Sodium Chloride 1000ml bag) 1,000 ml @ 75 mls/hr [id number] IV 03/27/16 08:00 04/26/16 07:59 04/10/16 05:08 Tigecycline/ Sodium Chloride (Tygacil/Sodium Chloride 100ml bag) 100 ml @ 200 mls/hr EVERY 12 HOURS IVPB 04/08/16 09:00 04/15/16 08:59 04/10/16 09:14 GRZEGORZ MARTINEZ Apr 10, 2016 10:33
[2016-04-10 11:57] VITALS: BP 140/74
--- NOTE | 2016-04-10 12:30 | General Progress Note ---
Assessment/Plan Assessment/Plan ASSESSMENT AND PLAN: 1. mrsa/acinetobacter/strep bilateral hip/thigh wound infection, mssa/strep bacteremia, 3. Anemia, 4. Weight loss 5. History of osteoarthritis and treatment. 6. Colostomy. 7. Paraplegia. 8. Cdif 9. elevated blood sugars 10. Chronic pain management and chronic pain syndrome. 11. drug rash PLAN no change in exam IV antibiotics- Tygacil needed at home ID clearance and plan pending monitor for change pain control encourage po intake nutrition impression, plan, and exam edited and reviewed in detail care discussed with RN Subjective Allergies: Coded Allergies: CEFTRIAXONE (Verified Allergy, Intermediate, SOB, HR-140bpm, face swollen , pt became red, 10/24/15) CODEINE (Verified Allergy, Intermediate, SWELLING, 01/03/11) LATEX (Verified Allergy, Intermediate, SWELLING, 01/03/11) PIPERACILLIN (Verified Allergy, Intermediate, Itching, 08/29/15) 08/29/15 tolerates Ceftaroline TAZOBACTAM (Verified Allergy, Intermediate, Itching, 01/29/15) POLYMYXIN B (Verified Allergy, Mild, Rash, 04/08/16) Suspected allergy reported by VANCOMYCIN (Verified Allergy, Mild, 07/15/14) ASPARAGINASE (Verified Allergy, Unknown, 01/28/14) IRON (Verified Allergy, Unknown, 01/28/14) Subjective weak alert does not want snf no distress ID noted Objective Last 24 Hour Vital Signs Date Time Temp Pulse Resp B/P Pulse Ox O2 Delivery O2 Flow Rate FiO2 04/10/16 11:57 97.5 105 18 140/74 97 Room Air 04/10/16 09:45 97.7 04/10/16 04:00 98.1 128 20 126/69 97 Room Air 04/10/16 00:00 97.7 106 20 126/60 98 Room Air 04/09/16 19:00 98.1 100 20 114/63 96 Room Air 04/09/16 16:00 97.3 100 20 113/69 98 Room Air Intake and Output 04/09/16 04/10/16 19:00 07:00 Intake Total 360 ml 745 ml Output Total 450 ml Balance -90 ml 745 ml Intake Oral 360 ml 120 ml IV Total 625 ml Stool Total 450 ml # Voids 3 Height (Feet): 5 Height (Inches): 5.00 Weight (Pounds): 220 Objective WDWN NAD clear breath sounds bilaterally without rhonchi or wheeze [id number] without MRG NABS nontender no HSM no CCE paraplegia wounds noted LUANN MICHEL Apr 10, 2016 12:30
[2016-04-10 15:05] LABS: BASOPHILS % (AUTO) 0.7 % (0.0-2.0); EOSINOPHILS % (AUTO) 1.4 % (0.0-3.0); LYMPHOCYTES % (AUTO) 15.7 % (20.0-45.0); MEAN CORPUSCULAR HEMOGLOBIN 28.1 PG (27.0-31.0); MEAN CORPUSCULAR HGB CONC 31.4 G/DL (32.0-36.0); MEAN CORPUSCULAR VOLUME 89 FL (80-99); MONOCYTES % (AUTO) 4.1 % (1.0-10.0); NEUTROPHILS % (AUTO) 78.1 % (45.0-75.0); PLATELET COUNT 113 K/UL (150-450); RED BLOOD COUNT 3.63 M/UL (4.20-5.40); RED CELL DISTRIBUTION WIDTH 14.7 % (11.6-14.8); WHITE BLOOD COUNT 9.9 K/UL (4.8-10.8)
[2016-04-10 15:18] LABS: ANION GAP 14 (5-15); CALCIUM 7.3 mg/dL (8.6-10.2); CARBON DIOXIDE 23 mEQ/L (20-30); CHLORIDE 105 mEQ/L (98-107); CREATININE 0.7 mg/dL (0.5-0.9); GLOMERULAR FILTRATION RATE > 60 mL/min (>60); HEMOLYSIS 3; POTASSIUM 3.4 mEQ/L (3.4-4.9); SODIUM 142 mEQ/L (135-145)
[2016-04-10 16:00] VITALS: BP 100/74
[2016-04-10 20:00] VITALS: BP 118/68
[2016-04-11] MEDS: Dakin's 0.25% (Half Strength) 16oz TOPIC SCH (02:00)
[2016-04-11 04:00] VITALS: BP 115/62
[2016-04-11] MEDS: DiphenhydrAMINE 50mg/ml Inj IVP PRN ×5 (04:19→22:32)
[2016-04-11] MEDS: metroNIDAZOLE 500mg tab ORAL SCH ×3 (06:16→22:31)
--- NOTE | 2016-04-11 07:09 | General Progress Note ---
Assessment/Plan Assessment/Plan ASSESSMENT AND PLAN: 1. mrsa/acinetobacter/strep bilateral hip/thigh wound infection, mssa/strep bacteremia, 3. Anemia, 4. Weight loss 5. History of osteoarthritis and treatment. 6. Colostomy. 7. Paraplegia. 8. Cdif 9. elevated blood sugars 10. Chronic pain management and chronic pain syndrome. 11. drug rash PLAN no change in exam; reviewed and edited IV antibiotics- Tygacil needed at home; trying to arrange ID clearance and plan pending monitor for change pain control encourage po intake ongoing wound care nutrition encouraged labs periodic impression, plan, and exam edited and reviewed in detail care discussed with RN Subjective ROS Limited/Unobtainable: No Constitutional: Reports: malaise, weakness Allergies: Coded Allergies: CEFTRIAXONE (Verified Allergy, Intermediate, SOB, HR-140bpm, face swollen , pt became red, 10/24/15) CODEINE (Verified Allergy, Intermediate, SWELLING, 01/03/11) LATEX (Verified Allergy, Intermediate, SWELLING, 01/03/11) PIPERACILLIN (Verified Allergy, Intermediate, Itching, 08/29/15) 08/29/15 tolerates Ceftaroline TAZOBACTAM (Verified Allergy, Intermediate, Itching, 01/29/15) POLYMYXIN B (Verified Allergy, Mild, Rash, 04/08/16) Suspected allergy reported by VANCOMYCIN (Verified Allergy, Mild, 07/15/14) ASPARAGINASE (Verified Allergy, Unknown, 01/28/14) IRON (Verified Allergy, Unknown, 01/28/14) Subjective weak alert does not want snf; asked again; wants to go home no distress or change ID noted Objective Last 24 Hour Vital Signs Date Time Temp Pulse Resp B/P Pulse Ox O2 Delivery O2 Flow Rate FiO2 04/11/16 04:00 97.2 98 18 115/62 98 Room Air 04/10/16 20:00 97.7 95 20 118/68 97 Room Air 04/10/16 19:09 97.5 04/10/16 16:00 97.5 99 20 100/74 96 Room Air 04/10/16 11:57 97.5 105 18 140/74 97 Room Air Intake and Output 04/10/16 04/11/16 19:00 07:00 Intake Total 755 ml 605 ml Balance 755 ml 605 ml Intake Oral 380 ml 280 ml IV Total 375 ml 325 ml # Voids 1 2 Laboratory Tests 04/10/16 14:30: White Blood Count 9.9, Red Blood Count 3.63L, Hemoglobin 10.2L, Hematocrit 32.5L , Mean Corpuscular Volume 89, Mean Corpuscular Hemoglobin 28.1, Mean Corpuscular Hemoglobin Concent 31.4L, Red Cell Distribution Width 14.7, Platelet Count 113L, Mean Platelet Volume 8.0, Neutrophils (%) (Auto) 78.1H, Lymphocytes (%) (Auto) 15.7L, Monocytes (%) (Auto) 4.1, Eosinophils (%) (Auto) 1.4, Basophils (%) (Auto) 0.7, Sodium Level 142, Potassium Level 3.4, Chloride Level 105, Carbon Dioxide Level 23, Anion Gap 14, Blood Urea Nitrogen 16, Creatinine 0.7, Estimat Glomerular Filtration Rate > 60, Glucose Level 86, Calcium Level 7.3L Height (Feet): 5 Height (Inches): 5.00 Weight (Pounds): 220 Objective WDWN NAD clear breath sounds bilaterally without rhonchi or wheeze [id number] without MRG NABS nontender no HSM no CCE paraplegia wounds noted LUANN MICHEL Apr 11, 2016 07:09
[2016-04-11 08:00] VITALS: BP 132/72
[2016-04-11] MEDS: Heparin 5000 units/ml inj SUBQ SCH ×2 (08:42→20:34)
[2016-04-11 12:00] VITALS: BP 122/67
--- NOTE | 2016-04-11 14:28 | Infectious Diseases Prog Note ---
Assessment/Plan Assessment/Plan ASSESSMENT AND PLAN: 1. mrsa/acinetobacter/strep bilateral hip/thigh wound infection, mssa/strep bacteremia, c.diff. 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 picc line infection - picc line changed - surveillance blood cultures are negative x 24 hrs - ? drug rash to polymyxin, rash developed after polymyxin started on 04/05 - polymyxin discontinued - tygacil - day # 4 abx, will need home iv abx to treat acinetobacter bacteremia - flagyl for c.diff., will recheck c.diff. and if negative will discontinue flagyl - n/v maybe secondary to tygacil but is necessary anti-biotic, continue zofran, ? flagyl contributing to n/v, will recheck c.diff. - supportive care for rash - watch labs 3. Anemia, lois resolved 4. Weight loss 5. History of osteoarthritis and treatment. 6. Colostomy. 7. Paraplegia. 8. Anemia. 9. ? diabetes - patient denies dm hx, bs elevated only with infection per pt 10. Chronic pain management and chronic pain syndrome. 11. History of cholelithiasis. 12. Pain management for primary. 13. Multiple allergies to asparaginase, Rocephin, codeine, iron, Latex, piperacillin, tazobactam, and vancomycin. 14. wound care per protocol and surgery 15. The case was discussed with RN about rash 16. The case was discussed with the patient. 17. fh-nc, sh-negative, mar noted 18. patient not stable for discharge, d/w case mgt 19. time spent - 33 minutes Subjective Constitutional: Reports: fatigue, Denies: fever HEENT: Denies: congestion Respiratory: Denies: shortness of breath Cardiovascular: Denies: chest pain Gastrointestinal/Abdominal: Reports: nausea, other - + colostomy , vomiting Neurologic: Denies: headache Psychiatric: Denies: depression Skin: Reports: other - rash better, less itching , rash Allergies: Coded Allergies: CEFTRIAXONE (Verified Allergy, Intermediate, SOB, HR-140bpm, face swollen , pt became red, 10/24/15) CODEINE (Verified Allergy, Intermediate, SWELLING, 01/03/11) LATEX (Verified Allergy, Intermediate, SWELLING, 01/03/11) PIPERACILLIN (Verified Allergy, Intermediate, Itching, 08/29/15) 08/29/15 tolerates Ceftaroline TAZOBACTAM (Verified Allergy, Intermediate, Itching, 01/29/15) POLYMYXIN B (Verified Allergy, Mild, Rash, 04/08/16) Suspected allergy reported by VANCOMYCIN (Verified Allergy, Mild, 07/15/14) ASPARAGINASE (Verified Allergy, Unknown, 01/28/14) IRON (Verified Allergy, Unknown, 01/28/14) Objective Vital Signs Last 24 Hour Vital Signs Date Time Temp Pulse Resp B/P Pulse Ox O2 Delivery O2 Flow Rate FiO2 04/11/16 12:00 97.0 96 18 122/67 98 Room Air 04/11/16 09:22 97.5 04/11/16 08:00 97.5 92 18 132/72 98 Room Air 04/11/16 04:00 97.2 98 18 115/62 98 Room Air 04/10/16 20:00 97.7 95 20 118/68 97 Room Air 04/10/16 16:00 97.5 99 20 100/74 96 Room Air Height (Feet): 5 Height (Inches): 5.00 Weight (Pounds): 220 General Appearance: no acute distress HEENT: normocephalic, atraumatic, anicteric, mucous membranes moist, PERRL, EOMI, pharynx normal, supple, no JVD Respiratory/Chest: crackles/rales, rhonchi - bilaterally Cardiovascular: normal rate, regular rhythm, no gallop/murmur, no JVD Abdomen: normal bowel sounds, soft, non tender, no organomegaly, non distended Genitourinary: other - no bay Extremities: no cyanosis Skin: rash - rash less 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, alert, oriented x 3, responsive Lymphatic: no neck adenopathy Musculoskeletal: no effusion Objective chest x-ray - negative Microbiology Date/Time Source Procedure Growth Status 04/09/16 10:30 Blood Blood Culture - Preliminary NO GROWTH AFTER 24 HOURS Resulted 04/06/16 12:30 Other(Specify in comment) Catheter Tip Culture - Final NO GROWTH AFTER 4 DAYS Complete 03/26/16 23:15 Stool Clostridium difficile Toxin Assay - Final Complete 03/25/16 21:50 Hip Left Gram Stain - Final Complete 03/25/16 21:50 Wound Culture - Final A.baumanii Complx - Mdr Staphylococcus Aureus - Mrsa Streptococcus Group A Complete Microbiology Date/Time Source Procedure Growth Status 04/09/16 10:30 Blood Blood Culture - Preliminary NO GROWTH AFTER 24 HOURS Resulted 04/09/16 10:15 Blood Blood Culture - Preliminary NO GROWTH AFTER 24 HOURS Resulted Laboratory Tests Test 04/10/16 14:30 White Blood Count 9.9 K/UL (4.8-10.8) Red Blood Count 3.63 M/UL (4.20-5.40) L Hemoglobin 10.2 G/DL (12.0-16.0) L Hematocrit 32.5 % (37.0-47.0) L Mean Corpuscular Volume 89 FL (80-99) Mean Corpuscular Hemoglobin 28.1 PG (27.0-31.0) Mean Corpuscular Hemoglobin Concent 31.4 G/DL (32.0-36.0) L Red Cell Distribution Width 14.7 % (11.6-14.8) Platelet Count 113 K/UL (150-450) L Mean Platelet Volume 8.0 FL (6.5-10.1) Neutrophils (%) (Auto) 78.1 % (45.0-75.0) H Lymphocytes (%) (Auto) 15.7 % (20.0-45.0) L Monocytes (%) (Auto) 4.1 % (1.0-10.0) Eosinophils (%) (Auto) 1.4 % (0.0-3.0) Basophils (%) (Auto) 0.7 % (0.0-2.0) Sodium Level 142 mEQ/L (135-145) Potassium Level 3.4 mEQ/L (3.4-4.9) Chloride Level 105 mEQ/L (98-107) Carbon Dioxide Level 23 mEQ/L (20-30) Anion Gap 14 (5-15) Blood Urea Nitrogen 16 mg/dL (7-23) Creatinine 0.7 mg/dL (0.5-0.9) Estimat Glomerular Filtration Rate > 60 mL/min (>60) Glucose Level 86 mg/dL (74-106) Calcium Level 7.3 mg/dL (8.6-10.2) L Current Medications Medications (Trade) Dose Ordered Sig/Pineda Route PRN Reason Start Time Stop Time Status Last Admin Dose Admin Acetaminophen (Tylenol) 650 mg Q4H PRN ORAL Mild Pain/Temp > 100.5 03/24/16 17:00 04/23/16 16:59 Diphenhydramine HCl (Benadryl) 25 mg Q4H PRN IVP Itching 03/24/16 17:00 04/23/16 16:59 04/11/16 08:52 Heparin Sodium (Porcine) 5000 units 5,000 units EVERY 12 HOURS SUBQ 03/24/16 21:00 04/23/16 20:59 03/30/16 22:26 Hydrocortisone (Hydrocortisone) 1 applic EVERY 6 HOURS PRN TOPIC Itching 03/27/16 10:00 04/26/16 09:59 03/28/16 00:22 Hydromorphone HCl (Dilaudid) 2 mg Q4H PRN IVP for severe 7-10 pain 04/07/16 22:15 04/14/16 22:14 04/11/16 08:52 Metronidazole 500 mg 500 mg EVERY 8 HOURS ORAL 04/06/16 06:00 04/13/16 05:59 04/11/16 06:16 Ondansetron HCl (Zofran) 4 mg Q4H PRN IVP Nausea & Vomiting 03/24/16 17:30 04/23/16 17:29 04/10/16 12:30 Sodium Hypochlorite (Dakin's Half Strength) 1 applic Q24H TOPIC 04/05/16 02:00 05/05/16 01:59 04/10/16 02:00 Sodium Chloride (Sodium Chloride 1000ml bag) 1,000 ml @ 75 mls/hr [id number] IV 03/27/16 08:00 04/26/16 07:59 04/10/16 18:39 Tigecycline/ Sodium Chloride (Tygacil/Sodium Chloride 100ml bag) 100 ml @ 200 mls/hr EVERY 12 HOURS IVPB 04/08/16 09:00 04/15/16 08:59 04/11/16 08:52 GRZEGORZ MARTINEZ Apr 11, 2016 14:28
[2016-04-11 16:00] VITALS: BP 121/61
[2016-04-11 20:08] VITALS: BP 126/65
[2016-04-12] VITALS: BP 123/67
[2016-04-12] MEDS: Dakin's 0.25% (Half Strength) 16oz TOPIC SCH (02:00)
[2016-04-12 04:00] VITALS: BP 119/73
[2016-04-12] MEDS: DiphenhydrAMINE 50mg/ml Inj IVP PRN ×4 (06:29→19:49)
[2016-04-12] MEDS: metroNIDAZOLE 500mg tab ORAL SCH ×3 (06:29→22:00)
[2016-04-12] MEDS: Heparin 5000 units/ml inj SUBQ SCH ×2 (07:53→20:18)
[2016-04-12 08:05] VITALS: BP 137/77
[2016-04-12 08:09] LABS: BASOPHILS % (AUTO) 0.4 % (0.0-2.0); EOSINOPHILS % (AUTO) 1.2 % (0.0-3.0); LYMPHOCYTES % (AUTO) 17.3 % (20.0-45.0); MEAN CORPUSCULAR HEMOGLOBIN 26.8 PG (27.0-31.0); MEAN CORPUSCULAR HGB CONC 30.5 G/DL (32.0-36.0); MEAN CORPUSCULAR VOLUME 88 FL (80-99); MEAN PLATELET VOLUME 9.5 FL (6.5-10.1); MONOCYTES % (AUTO) 5.2 % (1.0-10.0); NEUTROPHILS % (AUTO) 75.9 % (45.0-75.0); PLATELET COUNT 100 K/UL (150-450); RED BLOOD COUNT 3.86 M/UL (4.20-5.40); RED CELL DISTRIBUTION WIDTH 14.7 % (11.6-14.8); WHITE BLOOD COUNT 11.4 K/UL (4.8-10.8)
[2016-04-12 08:21] LABS: ANION GAP 14 (5-15); CALCIUM 7.4 mg/dL (8.6-10.2); CARBON DIOXIDE 24 mEQ/L (20-30); CHLORIDE 102 mEQ/L (98-107); CREATININE 0.6 mg/dL (0.5-0.9); GLOMERULAR FILTRATION RATE > 60 mL/min (>60); HEMOLYSIS 1; POTASSIUM 3.3 mEQ/L (3.4-4.9); SODIUM 140 mEQ/L (135-145)
--- NOTE | 2016-04-12 10:49 | General Progress Note ---
Assessment/Plan Assessment/Plan ASSESSMENT AND PLAN: 1. mrsa/acinetobacter/strep bilateral hip/thigh wound infection, mssa/strep bacteremia, 3. Anemia, 4. Weight loss 5. History of osteoarthritis and treatment. 6. Colostomy. 7. Paraplegia. 8. Cdif 9. elevated blood sugars 10. Chronic pain management and chronic pain syndrome. 11. drug rash PLAN no change in exam; reviewed and edited IV antibiotics- Tygacil needed at home; trying to arrange to complete course ID clearance and plan noted monitor for change pain control wound care encourage po intake ongoing wound care nutrition encouraged labs periodic will replace K impression, plan, and exam edited and reviewed in detail care discussed with RN Subjective Allergies: Coded Allergies: CEFTRIAXONE (Verified Allergy, Intermediate, SOB, HR-140bpm, face swollen , pt became red, 10/24/15) CODEINE (Verified Allergy, Intermediate, SWELLING, 01/03/11) LATEX (Verified Allergy, Intermediate, SWELLING, 01/03/11) PIPERACILLIN (Verified Allergy, Intermediate, Itching, 08/29/15) 08/29/15 tolerates Ceftaroline TAZOBACTAM (Verified Allergy, Intermediate, Itching, 01/29/15) POLYMYXIN B (Verified Allergy, Mild, Rash, 04/08/16) Suspected allergy reported by MD VANCOMYCIN (Verified Allergy, Mild, 07/15/14) ASPARAGINASE (Verified Allergy, Unknown, 01/28/14) IRON (Verified Allergy, Unknown, 01/28/14) Subjective weak alert no distress or change ID noted Objective Last 24 Hour Vital Signs Date Time Temp Pulse Resp B/P Pulse Ox O2 Delivery O2 Flow Rate FiO2 04/12/16 08:05 95.7 97 18 137/77 99 Room Air 04/12/16 04:00 97.5 88 20 119/73 99 Room Air 04/12/16 00:00 98.2 105 20 123/67 99 Room Air 04/11/16 23:02 97.7 04/11/16 20:08 97.7 98 22 126/65 98 Room Air 04/11/16 16:00 96.8 93 22 121/61 Room Air 04/11/16 12:00 97.0 96 18 122/67 98 Room Air Intake and Output 04/11/16 04/12/16 19:00 07:00 Intake Total 425 ml 515 ml Balance 425 ml 515 ml Intake Oral 240 ml IV Total 425 ml 275 ml # Voids 3 2 Laboratory Tests 04/12/16 07:45: White Blood Count 11.4H, Red Blood Count 3.86L, Hemoglobin 10.3L, Hematocrit 33.9L, Mean Corpuscular Volume 88, Mean Corpuscular Hemoglobin 26.8L, Mean Corpuscular Hemoglobin Concent 30.5L, Red Cell Distribution Width 14.7, Platelet Count 100L, Mean Platelet Volume 9.5, Neutrophils (%) (Auto) 75.9H, Lymphocytes (%) (Auto) 17.3L, Monocytes (%) (Auto) 5.2, Eosinophils (%) (Auto) 1.2, Basophils (%) (Auto) 0.4, Sodium Level 140, Potassium Level 3.3L, Chloride Level 102, Carbon Dioxide Level 24, Anion Gap 14, Blood Urea Nitrogen 14, Creatinine 0.6, Estimat Glomerular Filtration Rate > 60, Glucose Level 97, Calcium Level 7.4L Height (Feet): 5 Height (Inches): 5.00 Weight (Pounds): 220 Objective WDWN NAD clear breath sounds bilaterally without rhonchi or wheeze [id number] without MRG NABS nontender no HSM no CCE paraplegia wounds noted LUANN MICHEL Apr 12, 2016 10:49
[2016-04-12 11:40] VITALS: BP 135/73
[2016-04-12 16:15] VITALS: BP 134/77
[2016-04-12] MEDS ORDERED: Tubing IV Secondary IV ONE (17:51)
[2016-04-12 20:00] VITALS: BP 139/79
[2016-04-13] VITALS: BP 127/72
[2016-04-13] MEDS: DiphenhydrAMINE 50mg/ml Inj IVP PRN ×5 (01:34→20:39)
[2016-04-13] MEDS: Dakin's 0.25% (Half Strength) 16oz TOPIC SCH (02:00)
[2016-04-13] MEDS: metroNIDAZOLE 500mg tab ORAL SCH ×2 (06:28→13:16)
--- NOTE | 2016-04-13 08:42 | General Progress Note ---
Assessment/Plan Assessment/Plan ASSESSMENT AND PLAN: 1. mrsa/acinetobacter/strep bilateral hip/thigh wound infection, mssa/strep bacteremia, 3. Anemia, 4. Weight loss 5. History of osteoarthritis and treatment. 6. Colostomy. 7. Paraplegia. 8. Cdif 9. elevated blood sugars 10. Chronic pain management and chronic pain syndrome. 11. drug rash PLAN no change in exam; reviewed and edited from prior IV antibiotics- Tygacil needed at home; trying to arrange to complete course ID clearance and plan same monitor for change pain control wound care encourage po intake ongoing wound care nutrition encouraged labs periodic and monitor lytes impression, plan, and exam edited and reviewed in detail care discussed with RN Subjective Allergies: Coded Allergies: CEFTRIAXONE (Verified Allergy, Intermediate, SOB, HR-140bpm, face swollen , pt became red, 10/24/15) CODEINE (Verified Allergy, Intermediate, SWELLING, 01/03/11) LATEX (Verified Allergy, Intermediate, SWELLING, 01/03/11) PIPERACILLIN (Verified Allergy, Intermediate, Itching, 08/29/15) 08/29/15 tolerates Ceftaroline TAZOBACTAM (Verified Allergy, Intermediate, Itching, 01/29/15) POLYMYXIN B (Verified Allergy, Mild, Rash, 04/08/16) Suspected allergy reported by MD VANCOMYCIN (Verified Allergy, Mild, 07/15/14) ASPARAGINASE (Verified Allergy, Unknown, 01/28/14) IRON (Verified Allergy, Unknown, 01/28/14) Subjective weak alert without new complaints no distress or change ID noted Objective Last 24 Hour Vital Signs Date Time Temp Pulse Resp B/P Pulse Ox O2 Delivery O2 Flow Rate FiO2 04/13/16 00:00 97.2 79 20 127/72 99 Room Air 04/12/16 20:00 97.9 96 22 139/79 100 Room Air 04/12/16 16:15 97.9 98 22 134/77 97 Room Air 04/12/16 11:51 97.7 04/12/16 11:40 97.7 103 18 135/73 97 Room Air Intake and Output 04/12/16 04/13/16 19:00 07:00 Intake Total 1550 ml 2230 ml Balance 1550 ml 2230 ml Intake Oral 600 ml 1480 ml IV Total 950 ml 750 ml # Voids 1 1 Height (Feet): 5 Height (Inches): 5.00 Weight (Pounds): 220 Objective WDWN NAD clear breath sounds bilaterally without rhonchi or wheeze [id number] without MRG NABS nontender no HSM no CCE paraplegia wounds noted LUANN MICHEL Apr 13, 2016 08:42
[2016-04-13] MEDS: Heparin 5000 units/ml inj SUBQ SCH ×2 (09:00→20:40)
[2016-04-13 10:00] VITALS: BP 157/71
[2016-04-13 12:00] VITALS: BP 152/70
--- NOTE | 2016-04-13 14:27 | Infectious Diseases Prog Note ---
Assessment/Plan Assessment/Plan ASSESSMENT AND PLAN: 1. mrsa/acinetobacter/strep bilateral hip/thigh wound infection, mssa/strep bacteremia, c.diff. +, sepsis, sirs, leukocytosis, fever - acinetobacter bacteremia and recurrent septic tank cleaner bacteremia - ? picc line infection - picc line changed - surveillance blood cultures are negative, surveillance c.diff. negative - ? drug rash to polymyxin, rash developed after polymyxin started on 04/05 - polymyxin discontinued - tygacil - day # 09/22 abx, will need home iv abx to treat acinetobacter bacteremia - discontinue c.diff. since f/u c.diff. pcr is negative and s/p full treatment course - n/v maybe secondary to tygacil but is necessary anti-biotic, continue zofran, ? flagyl contributing to n/v, will recheck c.diff. - supportive care for rash - watch labs 3. Anemia, lois resolved 4. Weight loss 5. History of osteoarthritis and treatment. 6. Colostomy. 7. Paraplegia. 8. Anemia. 9. ? diabetes - patient denies dm hx, bs elevated only with infection per pt 10. Chronic pain management and chronic pain syndrome. 11. History of cholelithiasis. 12. Pain management for primary. 13. Multiple allergies to asparaginase, Rocephin, codeine, iron, Latex, piperacillin, tazobactam, and vancomycin. 14. wound care per protocol and surgery 15. The case was discussed with RN about rash 16. The case was discussed with the patient. 17. fh-nc, sh-negative, mar noted 18. patient not stable for discharge, d/w case mgt 19. time spent - 33 minutes Subjective Constitutional: Denies: fever HEENT: Denies: congestion Cardiovascular: Denies: chest pain Gastrointestinal/Abdominal: Reports: nausea - better with boogie, other - + colostomy, vomiting - better with zofran Neurologic: Denies: headache Psychiatric: Denies: depression Skin: Reports: rash - rash stable, ithching controlled Allergies: Coded Allergies: CEFTRIAXONE (Verified Allergy, Intermediate, SOB, HR-140bpm, face swollen , pt became red, 10/24/15) CODEINE (Verified Allergy, Intermediate, SWELLING, 01/03/11) LATEX (Verified Allergy, Intermediate, SWELLING, 01/03/11) PIPERACILLIN (Verified Allergy, Intermediate, Itching, 08/29/15) 08/29/15 tolerates Ceftaroline TAZOBACTAM (Verified Allergy, Intermediate, Itching, 01/29/15) POLYMYXIN B (Verified Allergy, Mild, Rash, 04/08/16) Suspected allergy reported by VANCOMYCIN (Verified Allergy, Mild, 07/15/14) ASPARAGINASE (Verified Allergy, Unknown, 01/28/14) IRON (Verified Allergy, Unknown, 01/28/14) Objective Vital Signs Last 24 Hour Vital Signs Date Time Temp Pulse Resp B/P Pulse Ox O2 Delivery O2 Flow Rate FiO2 04/13/16 12:00 98.2 76 20 152/70 Room Air 99.0 04/13/16 10:00 98.1 75 20 157/71 Room Air 100.0 04/13/16 00:00 97.2 79 20 127/72 99 Room Air 04/12/16 20:00 97.9 96 22 139/79 100 Room Air 04/12/16 16:15 97.9 98 22 134/77 97 Room Air Height (Feet): 5 Height (Inches): 5.00 Weight (Pounds): 220 General Appearance: no acute distress HEENT: normocephalic, atraumatic, anicteric, mucous membranes moist, PERRL, EOMI, pharynx normal, supple, no JVD Respiratory/Chest: lungs clear, normal breath sounds, no respiratory distress, no accessory muscle use Cardiovascular: normal rate, regular rhythm, no gallop/murmur, no JVD Abdomen: normal bowel sounds, soft, non tender, no organomegaly, non distended Genitourinary: other - no bay Extremities: no cyanosis Skin: other - rash less, right inner thigh with ? 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 grossly normal, alert, responsive, motor weakness Lymphatic: no neck adenopathy Musculoskeletal: no effusion Objective chest x-ray - negative Microbiology Date/Time Source Procedure Growth Status 04/12/16 06:50 Stool Clostridium difficile Toxin Assay - Final Complete c.diff - negative surveillance bc - negative Labs Test 04/10/16 14:30 04/12/16 07:45 White Blood Count 9.9 K/UL (4.8-10.8) 11.4 K/UL (4.8-10.8) Red Blood Count 3.63 M/UL (4.20-5.40) 3.86 M/UL (4.20-5.40) Hemoglobin 10.2 G/DL (12.0-16.0) 10.3 G/DL (12.0-16.0) Hematocrit 32.5 % (37.0-47.0) 33.9 % (37.0-47.0) Mean Corpuscular Volume 89 FL (80-99) 88 FL (80-99) Mean Corpuscular Hemoglobin 28.1 PG (27.0-31.0) 26.8 PG (27.0-31.0) Mean Corpuscular Hemoglobin Concent 31.4 G/DL (32.0-36.0) 30.5 G/DL (32.0-36.0) Red Cell Distribution Width 14.7 % (11.6-14.8) 14.7 % (11.6-14.8) Platelet Count 113 K/UL (150-450) 100 K/UL (150-450) Mean Platelet Volume 8.0 FL (6.5-10.1) 9.5 FL (6.5-10.1) Neutrophils (%) (Auto) 78.1 % (45.0-75.0) 75.9 % (45.0-75.0) Lymphocytes (%) (Auto) 15.7 % (20.0-45.0) 17.3 % (20.0-45.0) Monocytes (%) (Auto) 4.1 % (1.0-10.0) 5.2 % (1.0-10.0) Eosinophils (%) (Auto) 1.4 % (0.0-3.0) 1.2 % (0.0-3.0) Basophils (%) (Auto) 0.7 % (0.0-2.0) 0.4 % (0.0-2.0) Sodium Level 142 mEQ/L (135-145) 140 mEQ/L (135-145) Potassium Level 3.4 mEQ/L (3.4-4.9) 3.3 mEQ/L (3.4-4.9) Chloride Level 105 mEQ/L (98-107) 102 mEQ/L (98-107) Carbon Dioxide Level 23 mEQ/L (20-30) 24 mEQ/L (20-30) Anion Gap 14 (5-15) 14 (5-15) Blood Urea Nitrogen 16 mg/dL (7-23) 14 mg/dL (7-23) Creatinine 0.7 mg/dL (0.5-0.9) 0.6 mg/dL (0.5-0.9) Estimat Glomerular Filtration Rate > 60 mL/min (>60) > 60 mL/min (>60) Glucose Level 86 mg/dL (74-106) 97 mg/dL (74-106) Calcium Level 7.3 mg/dL (8.6-10.2) 7.4 mg/dL (8.6-10.2) Current Medications Medications (Trade) Dose Ordered Sig/Pineda Route PRN Reason Start Time Stop Time Status Last Admin Dose Admin Acetaminophen (Tylenol) 650 mg Q4H PRN ORAL Mild Pain/Temp > 100.5 03/24/16 17:00 04/23/16 16:59 Diphenhydramine HCl (Benadryl) 25 mg Q4H PRN IVP Itching 03/24/16 17:00 04/23/16 16:59 04/13/16 11:03 Heparin Sodium (Porcine) 5000 units 5,000 units EVERY 12 HOURS SUBQ 03/24/16 21:00 04/23/16 20:59 03/30/16 22:26 Hydrocortisone (Hydrocortisone) 1 applic EVERY 6 HOURS PRN TOPIC Itching 03/27/16 10:00 04/26/16 09:59 03/28/16 00:22 Hydromorphone HCl (Dilaudid) 2 mg Q4H PRN IVP for severe 7-10 pain 04/07/16 22:15 04/14/16 22:14 04/13/16 11:03 Metronidazole 500 mg 500 mg EVERY 8 HOURS ORAL 04/06/16 06:00 04/18/16 05:59 04/13/16 13:16 Ondansetron HCl (Zofran) 4 mg Q4H PRN IVP Nausea & Vomiting 03/24/16 17:30 04/23/16 17:29 04/13/16 11:02 Sodium Hypochlorite (Dakin's Half Strength) 1 applic Q24H TOPIC 04/05/16 02:00 05/05/16 01:59 04/12/16 02:00 Sodium Chloride (Sodium Chloride 1000ml bag) 1,000 ml @ 75 mls/hr [id number] IV 03/27/16 08:00 04/26/16 07:59 04/13/16 01:25 Tigecycline/ Sodium Chloride (Tygacil/Sodium Chloride 100ml bag) 100 ml @ 200 mls/hr EVERY 12 HOURS IVPB 04/08/16 09:00 04/15/16 08:59 04/13/16 09:41 GRZEGORZ MARTINEZ Apr 13, 2016 14:27
[2016-04-13 16:00] VITALS: BP 127/71
[2016-04-13 20:00] VITALS: BP 135/70
[2016-04-13 23:48] VITALS: BP 130/73
[2016-04-14] MEDS: Dakin's 0.25% (Half Strength) 16oz TOPIC SCH (02:00)
[2016-04-14 04:00] VITALS: BP 127/79
[2016-04-14] MEDS: DiphenhydrAMINE 50mg/ml Inj IVP PRN ×3 (05:01→14:44)
[2016-04-14 06:23] LABS: ANION GAP 11 (5-15); CALCIUM 7.1 mg/dL (8.6-10.2); CARBON DIOXIDE 27 mEQ/L (20-30); CHLORIDE 102 mEQ/L (98-107); CREATININE 0.6 mg/dL (0.5-0.9); GLOMERULAR FILTRATION RATE > 60 mL/min (>60); HEMOLYSIS 7; SODIUM 140 mEQ/L (135-145)
[2016-04-14 08:36] VITALS: BP 123/65
[2016-04-14] MEDS: Heparin 5000 units/ml inj SUBQ SCH (09:00)
[2016-04-14 10:10] LABS: BASOPHILS % (AUTO) 0.4 % (0.0-2.0); EOSINOPHILS % (AUTO) 2.6 % (0.0-3.0); LYMPHOCYTES % (AUTO) 27.1 % (20.0-45.0); MEAN CORPUSCULAR HEMOGLOBIN 26.8 PG (27.0-31.0); MEAN CORPUSCULAR HGB CONC 30.7 G/DL (32.0-36.0); MEAN CORPUSCULAR VOLUME 87 FL (80-99); MEAN PLATELET VOLUME 9.9 FL (6.5-10.1); MONOCYTES % (AUTO) 6.2 % (1.0-10.0); NEUTROPHILS % (AUTO) 63.7 % (45.0-75.0); PLATELET COUNT 108 K/UL (150-450); RED BLOOD COUNT 3.39 M/UL (4.20-5.40); RED CELL DISTRIBUTION WIDTH 14.6 % (11.6-14.8); WHITE BLOOD COUNT 8.7 K/UL (4.8-10.8)
--- NOTE | 2016-04-14 10:21 | General Progress Note ---
Assessment/Plan Assessment/Plan ASSESSMENT AND PLAN: 1. mrsa/acinetobacter/strep bilateral hip/thigh wound infection, mssa/strep bacteremia, 3. Anemia, 4. Weight loss 5. History of osteoarthritis and treatment. 6. Colostomy. 7. Paraplegia. 8. Cdif 9. elevated blood sugars 10. Chronic pain management and chronic pain syndrome. 11. drug rash PLAN no change in exam; reviewed and edited from prior IV antibiotics- Tygacil needed at home; arranged ID clearance and plan same monitor for change pain control wound care encourage po intake ongoing wound care nutrition encouraged labs periodic after dc patient agreeable to proceed with dc impression, plan, and exam edited and reviewed in detail care discussed with RN Subjective Allergies: Coded Allergies: CEFTRIAXONE (Verified Allergy, Intermediate, SOB, HR-140bpm, face swollen , pt became red, 10/24/15) CODEINE (Verified Allergy, Intermediate, SWELLING, 01/03/11) LATEX (Verified Allergy, Intermediate, SWELLING, 01/03/11) PIPERACILLIN (Verified Allergy, Intermediate, Itching, 08/29/15) 08/29/15 tolerates Ceftaroline TAZOBACTAM (Verified Allergy, Intermediate, Itching, 01/29/15) POLYMYXIN B (Verified Allergy, Mild, Rash, 04/08/16) Suspected allergy reported by MD VANCOMYCIN (Verified Allergy, Mild, 07/15/14) ASPARAGINASE (Verified Allergy, Unknown, 01/28/14) IRON (Verified Allergy, Unknown, 01/28/14) Subjective weak stable plan for dc today Objective Last 24 Hour Vital Signs Date Time Temp Pulse Resp B/P Pulse Ox O2 Delivery O2 Flow Rate FiO2 04/14/16 08:36 97.3 86 20 123/65 98 Room Air 04/14/16 05:31 97.9 04/14/16 04:00 97.9 100 20 127/79 97 Room Air 04/13/16 23:48 97.5 92 20 130/73 98 Room Air 04/13/16 20:00 95.7 88 22 135/70 100 Room Air 04/13/16 16:00 97.5 76 20 127/71 99 Room Air 04/13/16 12:00 98.2 76 20 152/70 Room Air 99.0 Intake and Output 04/13/16 04/14/16 19:00 07:00 Intake Total 585 ml 820 ml Output Total 200 ml Balance 585 ml 620 ml Intake Oral 360 ml 720 ml IV Total 225 ml 100 ml Stool Total 200 ml # Voids 3 Laboratory Tests 04/14/16 05:00: Sodium Level 140, Potassium Level 3.0L, Chloride Level 102, Carbon Dioxide Level 27, Anion Gap 11, Blood Urea Nitrogen 9, Creatinine 0.6, Estimat Glomerular Filtration Rate > 60, Glucose Level 89, Calcium Level 7.1L 04/14/16 09:40: White Blood Count 8.7, Red Blood Count 3.39L, Hemoglobin 9.1L, Hematocrit 29.6L , Mean Corpuscular Volume 87, Mean Corpuscular Hemoglobin 26.8L, Mean Corpuscular Hemoglobin Concent 30.7L, Red Cell Distribution Width 14.6, Platelet Count 108L, Mean Platelet Volume 9.9, Neutrophils (%) (Auto) 63.7, Lymphocytes (%) (Auto) 27.1, Monocytes (%) (Auto) 6.2, Eosinophils (%) (Auto) 2.6, Basophils (%) (Auto) 0.4 Height (Feet): 5 Height (Inches): 5.00 Weight (Pounds): 220 Objective WDWN NAD clear breath sounds bilaterally without rhonchi or wheeze [id number] without MRG NABS nontender no HSM no CCE paraplegia wounds noted LUANN MICHEL Apr 14, 2016 10:21
[2016-04-14 12:00] VITALS: BP 135/72
[2016-04-14] MEDS ORDERED: TYGACIL50 MG IVPB (14:21)
[2016-04-14] MEDS ORDERED: D5NS 1000ml IV ONE (16:59)
[2016-04-19] MEDS ORDERED: TYGACIL50 MG IVPB (08:46)
--- NOTE | 2016-04-21 15:34 | Discharge Summary ---
Discharge Summary Hospital Course Date of Admission Mar 24, 2016 at 12:20 Date of Discharge Apr 14, 2016 at 17:00 Admitting Diagnosis HPI Ananya Guajardo is a 40 year old female who was admitted on Mar 24, 2016 at 12:20 for Infected Hip Hospital Course dc summary dictated #[id number] Discharge Medications Continued Medications: Tigecycline (Tygacil) 50 Mg Vial 50 MG IVPB EVERY 12 HOURS for 9 Days, VIAL Discontinued Medications: Amikacin Sulfate (Amikacin Sulfate) 1,000 Mg/4 Ml Vial 1000 MG IV DAILY for 6 Days, VIAL Linezolid (Zyvox) 600 Mg/300 Ml Iv.soln 600 MG IVPB EVERY 12 HOURS for 6 Days, MG Metronidazole/Sodium Chloride* (Metronidazole 500 Mg/100 Ml*) 500 Mg/100 Ml Piggyback 500 MG IVPB EVERY 8 HOURS for 6 Days, BAG No Known Medications* (NKM - No Known Medications*) . 0 ., 0 Refills Discharge Condition Upon Discharge: improving, stable Discharge Disposition Patient was discharged to Home with Home Health(06) Discharge Diagnoses: Fredo (Sarahnini)Ngozi NP Apr 21, 2016 15:34
--- NOTE | 2016-04-21 17:07 | Discharge Summary 2 SIG ---
DATE OF ADMISSION: 03/24/2016 DATE OF DISCHARGE: 04/14/2016 REASON FOR ADMISSION: 40-year-old female, presented to the emergency room with multiple chronic sacral and thigh wounds. She had been treated by her wound care physician as an outpatient. She was admitted due to the worsening wounds, pain, and subjective fever and chills. The patient has a history of paraplegia. No chest pain. No shortness of breath. Laboratory workup obtained in the emergency room revealed leukocytosis of 20.7, hemoglobin 9.0, and creatinine 2.5. ADMITTING DIAGNOSES: sepsis bilateral hip and thigh infected wounds/decub acute kidney injury, anemia paraplegia acute renal failure Hospital Stay: The patient was on Med/Surg floor. Infectious Disease doctor as well as a plastic surgeon were involved in care of this patient. The patient has a persistent leukocytosis. Blood cultures were positive. Initial blood culture positive for staph and strep group A. Repeated blood culture positive for Acinetobacter MDR and the last blood culture at 12:30 hours were negative. Initial stool C. difficile was positive. The patient status post treatment for the C. difficile. Repeated stool C. difficile on 04/12/2016 is negative. Due to the persistent leukocytosis, the patient undergone change of the PICC line. Initial PICC line was on the left arm. PICC line was removed. Catheter tip was cultured and no growth was noted. PICC line placed to the right arm. The patient needed long-term antibiotics. ID followed. The patient had evidence of anemia ,status post 4 units of blood transfusion . Upon discharge hemoglobin stable. Iron panel revealed stable iron. Anemia, likely of chronic disease, monitor closely as outpatient. Patient initially with acute renal failure likely secondary to dehydration. The patient started on the IV fluids and renal parameters down to normal: creatinine - 0.6 and BUN - 9 upon discharge. Recommended to avoid nephrotoxic. Noted elevated blood sugar, however, the patient stated that she only gets her blood sugar elevated during infections. Follow up glucose and HgA1c all within normal limits. The patient with chronic pain syndrome, on multiple regimen of analgesics. Plastic surgery consult was requested secondary to management of the wounds. Plastic surgeon seen the patient the next day after admission. Creatinine was still high. He recommended wound care. At that time, was unable to get CT of the abdomen with contrast due to the elevated creatinine. He also reported that the patient may need at some point, operative debridement. Colostomy care provided. Bowel regimen instituted. Echocardiogram revealed normal ejection fraction of 60%, mild left ventricular hypertrophy, no evidence of vegetation, and right ventricular systolic pressure of 42 consistent with mild pulmonary hypertension. Venous duplex of bilateral lower extremities was negative. Chest x-ray revealed no evidence of acute cardiopulmonary disease. Renal ultrasound demonstrated normal bilateral echogenicity of kidneys and no hydronephrosis. The patient developed drug rash. The patient has multiply allergies. Per ID, supportive care for multiply allergies. The Home health for IV antibiotics and wound care was arranged, antibiotics regimen as per ID recommendations,. Patient was stable for discharge. DISCHARGE DIAGNOSES: 1. Methicillin-resistant Staphylococcus aureus/Acinetobacter/Streptococcus bilateral hip/thigh wound infection. 2. Methicillin-susceptible Staphylococcus aureus/Streptococcus bacteremia. 3. Clostridium difficile colitis. 4. Sepsis. 5. Anemia of chronic disease, status post blood transfusion. 6. History of osteoarthritis. 7. Mild pulmonary hypertension. 8. Paraplegia. 9. Acute renal failure, likely secondary to dehydration, resolved. 10. Colostomy. 11. Mild pulmonary hypertension. 12. Hyperglycemia. 13. Chronic pain syndrome. 14. Drug rash. DISCHARGE MEDICATIONS: See medication reconciliation list. DISCHARGE INSTRUCTIONS: The patient was discharged home with home health. FOLLOWUP: Follow up with the primary care provider and wound care provider. Thanh Glover M.D. I have been assigned to dictate discharge summary on this account and I was not involved in the patient's management. Ngozi Yoo (Vanchtein) N.PDarío DR: AUBREE JOB#: [id number] CC: MADI
--- NOTE | 2016-04-26 22:55 | Physician Query ---
PLEASE COMPLETE DOCUMENT BEFORE SIGNING Dear Dr. BONG BRUNNER Date: 04/26/2016 Senior Caregiver/CDS Name: NEGRITA CAROLINA, DIRECTOR TRANSLATION, CCS Exercise your independent professional judgment when responding to the query. Questions asked do not imply a particular answer is desired or expected. We greatly appreciate your clarification on this issue. CLINICAL DOCUMENTATION STATES: Multiple sacral wounds, bilateral thigh wounds, bilateral hip wounds Please specify the cause of ulcers: Diabetic ( Neuropathic manifestation; Vascular manifestation; Associated w / gangrene) x Pressure Venous Stasis Arterial (Ischemic) Unable to determine Other: Please specify the stage of each ulcer below, if applicable: Stage I (pre-ulcer skin changes limited to persistent focal erythema) Stage II (abrasion, blister, and partial thickness skin loss) Stage III (full thickness skin loss with subcutaneous necrosis/damage) x Stage IV (necrosis of soft tissues through to underlying muscle, tendon, bone) Unstageable Unable to determine CONDITIONS PRESENT on Admission: [x] Yes [] No []Clinically Undeterminable Please also document in your Progress Notes and/or Discharge Summary and indicate if the condition was present on admission. BONG BRUNNER M.D. DATE & [facility]
== END 2016-04-14 17:00 | disposition home health service (06) | DRG 871 ==
LOC: 4W 12:20
DX: A40.9 Streptococcal sepsis, unspecified (principal); L89.154 Pressure ulcer of sacral region, stage 4; N17.9 Acute kidney failure, unspecified; L89.214 Pressure ulcer of right hip, stage 4; A04.7 Enterocolitis due to Clostridium difficile; L89.894 Pressure ulcer of other site, stage 4; E86.0 Dehydration; L89.224 Pressure ulcer of left hip, stage 4; G82.20 Paraplegia, unspecified; L03.116 Cellulitis of left lower limb; L03.115 Cellulitis of right lower limb; L02.416 Cutaneous abscess of left lower limb; Z93.3 Colostomy status; D64.9 Anemia, unspecified; G89.4 Chronic pain syndrome; D72.829 Elevated white blood cell count, unspecified; B95.62 Methicillin resistant Staphylococcus aureus infection as the cause of diseases classified elsewhere; R63.4 Abnormal weight loss; I27.2 Other secondary pulmonary hypertension; Z68.36 Body mass index [BMI] 36.0-36.9, adult; L27.1 Localized skin eruption due to drugs and medicaments taken internally; T36.8X5A Adverse effect of other systemic antibiotics, initial encounter; Y92.230 Patient room in hospital as the place of occurrence of the external cause; B96.89 Other specified bacterial agents as the cause of diseases classified elsewhere
CPT/HCPCS: 11042; 11043; 11046; 20245; 36415; 36569; 71010; 76775; 76937; 80048; 80053; 83540; 83550; 84134; 85007; 85025; 85610; 85730; 86850; 86900; 86901; 86920; 87040; 87070; 87181; 87205; 87493; 93306; 93970; 95819; 97605; J2405; J8499

== ENCOUNTER 2016-04-17 12:28 | Emergency (ER) | payer MEDICARE, OTHER ==
[~2016-04-17] VITALS: Ht 165.1 cm; Wt 95.3 kg
[2016-04-17 12:54] VITALS: BP 110/88
[2016-04-17] MEDS ORDERED: DiphenhydrAMINE 50mg/ml Inj IVP ONE (13:45)
[2016-04-17 14:12] VITALS: BP 108/85
[2016-04-17 14:13] VITALS: BP 108/85
--- NOTE | 2016-04-18 09:02 | Emergency Room Report ---
History of Present Illness General Chief Complaint: Wound Recheck/Suture Removal Source: Patient Present Illness HPI Patient is a 40-year-old female who presented after having recently been discharged from the hospital. Patient stated that she had been having difficulty with her colostomy. Patient prior history of chronic pain. She had recently been on antibiotics after osteomyelitis and had a PICC line. The patient was receiving antibiotics with a home health nurse Allergies: Coded Allergies: CEFTRIAXONE (Verified Allergy, Intermediate, SOB, HR-140bpm, face swollen , pt became red, 10/24/15) CODEINE (Verified Allergy, Intermediate, SWELLING, 01/03/11) LATEX (Verified Allergy, Intermediate, SWELLING, 01/03/11) PIPERACILLIN (Verified Allergy, Intermediate, Itching, 08/29/15) 08/29/15 tolerates Ceftaroline TAZOBACTAM (Verified Allergy, Intermediate, Itching, 01/29/15) POLYMYXIN B (Verified Allergy, Mild, Rash, 04/08/16) Suspected allergy reported by VANCOMYCIN (Verified Allergy, Mild, 07/15/14) ASPARAGINASE (Verified Allergy, Unknown, 01/28/14) IRON (Verified Allergy, Unknown, 01/28/14) Patient History Reviewed Nursing Documentation: PMH: Agreed, PSxH: Agreed Nursing Documentation-PMH Past Medical History: No History, Except For Hx Cardiac Problems: No Hx Hypertension: No Hx Pacemaker: No Hx Asthma: Yes Hx COPD: No Hx Diabetes: No Hx Cancer: No Hx Gastrointestinal Problems: Yes Hx Neurological Problems: No Hx Cerebrovascular Accident: No Hx Seizures: No 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 Hx Weakness: Yes Hx Fatigue: Yes Review of Systems All Other Systems: negative except mentioned in HPI Physical Exam Vital Signs Date Time Temp Pulse Resp B/P Pulse Ox O2 Delivery O2 Flow Rate FiO2 04/17/16 12:33 97.5 80 18 110/88 98 Room Air General Appearance: well appearing, no apparent distress, alert, GCS 15 Head: normocephalic, atraumatic ENT: hearing grossly normal, normal voice Neck: full range of motion, supple Respiratory: no respiratory distress, speaking full sentences Gastrointestinal: non tender, soft, no hernia, other - erythema over stoma site Musculoskeletal: no calf tenderness Neurologic: alert, motor weakness - bilateral lower extremity paralysis Psychiatric: mood/affect normal Skin: no rash Medical Decision Making Diagnostic Impression: Primary Impression: Osteomyelitis ER Course `Patient presented for wound check. The patient was noted to have had an area of her some which is mildly erythematous consistent with irritation from her stoma leaking. Patient was given IV pain medications for her chronic pain. The patient was discussed with Dr. Glover. The patient does not appear to have any new infection requiring change in the patient's antibiotics. As she is currently on Tigecycline. The patient is advised to continue her antibiotics at home health nurse.The patient is advised to follow up with primary care doctor as previously scheduled. Patient is advised to return if any worsening condition or if any changes in status that are concerning. Last Vital Signs Date Time Temp Pulse Resp B/P Pulse Ox O2 Delivery O2 Flow Rate FiO2 04/17/16 14:13 97.5 64 18 108/85 99 Room Air Status: improved Disposition: HOME, SELF-CARE Condition: Stable Referrals: NOT CHOSEN IPA/,REFERRING (PCP) Patient Instructions: Wound Check Walter Franklin Apr 18, 2016 09:02
[2016-04-19] MEDS ORDERED: TYGACIL50 MG IVPB (08:46)
== END 2016-04-17 14:33 | disposition home or self-care (01) ==
LOC: EDBD 12:28 → EMR 13:51
DX: M86.9 Osteomyelitis, unspecified (principal); J45.909 Unspecified asthma, uncomplicated; Z88.8 Allergy status to other drugs, medicaments and biological substances; Z88.6 Allergy status to analgesic agent; Z88.1 Allergy status to other antibiotic agents; Z91.040 Latex allergy status; Z91.048 Other nonmedicinal substance allergy status
CPT/HCPCS: 96374; 96375; 99284; J1170; J1200; J2405

== ENCOUNTER 2016-04-19 08:52 | Inpatient (IN) | payer MEDICARE, OTHER ==
[~2016-04-19] VITALS: Ht 165.1 cm; Wt 95.3 kg
--- NOTE | 2016-04-19 09:10 | Emergency Room Report ---
History of Present Illness General Chief Complaint: Abdominal Pain Source: Patient, Medical Record, PMD Present Illness HPI 40 YO F presents with generalized 9/10, non-radiating abdominal discomfort, nausea/vomiting and cant tolerate PO intake - "havent kept anything down in days." Denies assoc fever/chills, diarrhea. Patient is very dramatic, yelling " I dont want to !" and writhing on stretcher. Denies change in stool color/ caliber in colostomy bag. Denies urinary complaints, SOB, chest pain, headache. Per EMR, patient was here 2 days ago for wound check of stoma. Case was d/w PMD Dr Glover and patient was DCed. Patient states thats not why she was here then , and states "I shouldnt have been discharged recently" for prolonged stay here for ?" mrsa/acinetobacter/strep bilateral hip/thigh wound infection." Blood Cx and Cdiff were negative. PICC line recently replaced. Patient being tx at home with Tygacil. Allergies: Coded Allergies: CEFTRIAXONE (Verified Allergy, Intermediate, SOB, HR-140bpm, face swollen , pt became red, 10/24/15) CODEINE (Verified Allergy, Intermediate, SWELLING, 01/03/11) LATEX (Verified Allergy, Intermediate, SWELLING, 01/03/11) PIPERACILLIN (Verified Allergy, Intermediate, Itching, 08/29/15) 08/29/15 tolerates Ceftaroline TAZOBACTAM (Verified Allergy, Intermediate, Itching, 01/29/15) POLYMYXIN B (Verified Allergy, Mild, Rash, 04/08/16) Suspected allergy reported by VANCOMYCIN (Verified Allergy, Mild, 07/15/14) ASPARAGINASE (Verified Allergy, Unknown, 01/28/14) CEFUROXIME (Unverified Allergy, Unknown, 04/19/16) IRON (Verified Allergy, Unknown, 01/28/14) Patient History Past Medical History: see triage record, old chart reviewed Past Surgical History: other - See chart Pertinent Family History: none Social History: Denies: alcohol use, drug use, smoking Now: No Immunizations: UTD Reviewed Nursing Documentation: PMH: Agreed, PSxH: Agreed Nursing Documentation-PMH Hx Cardiac Problems: No Hx Hypertension: No Hx Pacemaker: No Hx Asthma: Yes Hx COPD: No Hx Diabetes: No Hx Cancer: No Hx Gastrointestinal Problems: Yes Hx Cerebrovascular Accident: No Hx Seizures: No 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 Hx Weakness: Yes Hx Fatigue: Yes Review of Systems All Other Systems: negative except mentioned in HPI Physical Exam Vital Signs Date Time Temp Pulse Resp B/P Pulse Ox O2 Delivery O2 Flow Rate FiO2 04/19/16 08:41 97.3 100 16 114/83 100 Room Air Sp02 EP Interpretation: reviewed, abnormal General Appearance: normal inspection, well appearing, alert, GCS 15, non-toxic , mild distress, obese, Chronically Ill Head: normocephalic, atraumatic Eyes: bilateral eye EOMI, bilateral eye PERRL ENT: normal ENT inspection, hearing grossly normal, normal voice Neck: normal inspection, full range of motion, supple, no bony tend Respiratory: normal inspection, chest non-tender, lungs clear, normal breath sounds, no rhonchi, no respiratory distress, no retraction, no accessory muscle use, no wheezing Cardiovascular #1: regular rate, rhythm, no edema, tachycardia Gastrointestinal: normal inspection, normal bowel sounds, non tender, soft, no guarding, no hernia, no pulsatile mass, no rebound, other - Gtube; Stoma in place; assocoated skin rash but no overlying erythema or sign of infection. Soft green/yellow stool in bag. Generalized hyperasthesia to palpation to whole of obese abdomen Genitourinary: no CVA tenderness Musculoskeletal: normal inspection, back normal, normal range of motion, Angela' s Sign negative Neurologic: normal inspection, alert, responsive, occupational safety and health manager III-XII nml as tested, motor strength/tone normal, speech normal Psychiatric: normal inspection, judgement/insight normal, mood/affect normal Skin: normal inspection, normal color, warm/dry, other - Dry mucous membranes, skin; 5cm stage IV decubitus ulcer, chronic in LS area. No active bleeding or pus drainage from area. Medical Decision Making Diagnostic Impression: Primary Impression: Abdominal pain Qualified Codes: R10.84 - Generalized abdominal pain Additional Impressions: Nausea & vomiting Qualified Codes: R11.2 - Nausea with vomiting, unspecified Dehydration Stage 4 decubitus ulcer Hypokalemia ER Course 40 YO F with nausea/vomiting, dehydration, generalized abd pain. VS notable for tachycardia and mild hypotension. Afebrile. Non focal abdomen Very dramatic appearance and display in ED Specific request for dilaudid History of chronic pain, narcotic-seeking behavior However does look dehydrated and is tachy/hypotensive PLAN Will check basic labs, IVF hydration, anti-emetic, analgesia D/w Dr Glover, who patient did call this morning, and recommends admission EKG Diagnostic Results Rate: tachycardiac Rhythm: NSR ST Segments: no acute changes Rhythm Strip Diag. Results EP Interpretation: yes Rate: 101 Rhythm: NSR, no PVC's, no ectopy Reevaluation Time: 09:53 Last Vital Signs Date Time Temp Pulse Resp B/P Pulse Ox O2 Delivery O2 Flow Rate FiO2 04/19/16 08:41 97.3 100 16 114/83 100 Room Air Status: improved Reevaluation Impression Labs: No leuks. H&H stable. mild hypoK. EKG is sinus tach A: Dehydration, hypoK - repleted orally, intractable pain received Dilaudid. Endorsed to Dr Glover at 955am for med/surg bed Disposition: ADMITTED INPATIENT Condition: Serious MARISSA CM M.D. Apr 19, 2016 09:10
[2016-04-19] MEDS ORDERED: Metoclopramide 10mg/2ml Inj IVP ONE (09:15)
[2016-04-19] MEDS ORDERED: Tubing IV Cassette IV ONE (09:17)
[2016-04-19] MEDS ORDERED: DIPHENHYDRAMINE IVPB ONE (09:30)
[2016-04-19] MEDS ORDERED: HYDROMORPHONE IVPB ONE (09:30)
[2016-04-19] MEDS ORDERED: NS IVPB ONE (09:30)
[2016-04-19 09:33] LABS: BASOPHILS % (AUTO) 0.9 % (0.0-2.0); EOSINOPHILS % (AUTO) 2.5 % (0.0-3.0); LYMPHOCYTES % (AUTO) 24.5 % (20.0-45.0); MEAN CORPUSCULAR HGB CONC 31.4 G/DL (32.0-36.0); MEAN CORPUSCULAR VOLUME 86 FL (80-99); MEAN PLATELET VOLUME 7.2 FL (6.5-10.1); MONOCYTES % (AUTO) 9.2 % (1.0-10.0); NEUTROPHILS % (AUTO) 62.8 % (45.0-75.0); PLATELET COUNT 546 K/UL (150-450); RED BLOOD COUNT 3.76 M/UL (4.20-5.40); RED CELL DISTRIBUTION WIDTH 15.4 % (11.6-14.8)
[2016-04-19] MEDS ORDERED: Tubing IV Secondary IV ONE (09:39)
[2016-04-19] MEDS ORDERED: DiphenhydrAMINE 50mg/ml Inj ONE (09:39)
[2016-04-19] MEDS ORDERED: NS 50 ML IV ONE (09:39)
[2016-04-19 09:41] LABS: ALANINE AMINOTRANSFERASE 5 U/L (3-33); ALBUMIN/GLOBULIN RATIO 0.4 (1.0-2.7); ANION GAP 15 (5-15); ASPARTATE AMINO TRANSFERASE 8 U/L (5-40); CALCIUM 6.6 mg/dL (8.6-10.2); CARBON DIOXIDE 24 mEQ/L (20-30); CHLORIDE 92 mEQ/L (98-107); CREATININE 0.6 mg/dL (0.5-0.9); GLOMERULAR FILTRATION RATE > 60 mL/min (>60); HEMOLYSIS 3; LIPASE 25 U/L (< 60); POTASSIUM 3.1 mEQ/L (3.4-4.9); SODIUM 131 mEQ/L (135-145); TOTAL PROTEIN 6.2 g/dL (6.6-8.7)
[2016-04-19 10:00] VITALS: BP 104/60
[2016-04-19 12:00] VITALS: BP 111/82
[2016-04-19 14:00] VITALS: BP 100/72
[2016-04-19] MEDS ORDERED: Morphine Sulfate 4mg/ml Inj IVP ONE (14:45)
[2016-04-19 15:36] VITALS: BP 98/69
[2016-04-19] MEDS ORDERED: Milk of Magnesia 30ml Ud ORAL PRN (17:15)
[2016-04-19] MEDS ORDERED: Zolpidem 5mg tab ORAL PRN (17:15)
--- NOTE | 2016-04-19 19:11 | Consultation ---
History of Present Illness General Date patient seen: Apr 19, 2016 Time patient seen: 19:03 Chief Complaint: Abdominal Pain Referring physician: Belen Reason for Consultation: Pressure ulcers Present Illness HPI Patient known to me from outpatient wound center. Was recently discharged from [facility] but readmitted today with abdominal pain and emesis. She is paraplegic with multiple pressure ulcers. Last time she was seen by me was several weeks ago at which time she had posterior thigh ulcers, left ischial ulcer and a superficial sacral ulcer in addition to lateral/anterior thigh punctate wounds. She has had poor appetite for 3 weeks and has been bedridden for the last few weeks. Allergies: Coded Allergies: CEFTRIAXONE (Verified Allergy, Intermediate, SOB, HR-140bpm, face swollen , pt became red, 10/24/15) CODEINE (Verified Allergy, Intermediate, SWELLING, 01/03/11) LATEX (Verified Allergy, Intermediate, SWELLING, 01/03/11) PIPERACILLIN (Verified Allergy, Intermediate, Itching, 08/29/15) 08/29/15 tolerates Ceftaroline TAZOBACTAM (Verified Allergy, Intermediate, Itching, 01/29/15) POLYMYXIN B (Verified Allergy, Mild, Rash, 04/08/16) Suspected allergy reported by MD VANCOMYCIN (Verified Allergy, Mild, 07/15/14) ASPARAGINASE (Verified Allergy, Unknown, 01/28/14) CEFUROXIME (Unverified Allergy, Unknown, 04/19/16) IRON (Verified Allergy, Unknown, 01/28/14) Medication History Scheduled Tigecycline (Tygacil), 50 MG IVPB EVERY 12 HOURS, (Reported) Tigecycline (Tygacil), 50 MG IVPB EVERY 12 HOURS, (Reported) Discontinued Medications Amikacin Sulfate (Amikacin Sulfate), 1,000 MG IV DAILY, (Reported) Discontinued Reason: Pt stopped taking med Linezolid (Zyvox), 600 MG IVPB EVERY 12 HOURS, (Reported) Discontinued Reason: Pt stopped taking med Metronidazole/Sodium Chloride* (Metronidazole 500 Mg/100 Ml*), 500 MG IVPB EVERY 8 HOURS, (Reported) Discontinued Reason: Pt stopped taking med No Known Medications* (NKM - No Known Medications*), 0 ., (Reported) Discontinued Reason: Pt stopped taking med Patient History History Provided By: Patient Healthcare decision maker Resuscitation status Advanced Directive on File Review of Systems Constitutional: Reports: see HPI, weakness ENT: Reports: no symptoms Gastrointestinal: Reports: abdominal pain Genitourinary: Reports: incontinence Skin: Reports: lesions, see HPI Physical Exam General Appearance: alert, obese Lines, tubes and drains: PICC Abdomen: soft Skin Exam: other - Large stage 4 sacral ulcer with bone exposed and significant undermining. Measures 10x9x 3.5cm. Slough and fibrotic debris along side field and base. Periskin is erythematous and indurated but no purulent drainage or crepitus. Left ischial ulcer is healed. Left posterior thigh ulcer is clean and very granular. Right posterior thigh ulcer with slough and mild odoer but no purulent drainage. measures 8 7.5x3.5cm. Last 24 Hour Vital Signs Date Time Temp Pulse Resp B/P Pulse Ox O2 Delivery O2 Flow Rate FiO2 04/19/16 16:42 98.0 81 16 102/62 99 Room Air 04/19/16 15:36 98.0 86 16 98/69 99 Room Air 04/19/16 15:10 97.4 04/19/16 14:00 92 16 100/72 99 Room Air 04/19/16 12:00 89 16 111/82 97 Room Air 04/19/16 10:15 97.4 04/19/16 10:00 101 18 104/60 97 Room Air 04/19/16 08:41 97.3 100 16 114/83 100 Room Air Laboratory Tests Test 04/19/16 09:00 White Blood Count 10.0 K/UL (4.8-10.8) Red Blood Count 3.76 M/UL (4.20-5.40) L Hemoglobin 10.2 G/DL (12.0-16.0) L Hematocrit 32.3 % (37.0-47.0) L Mean Corpuscular Volume 86 FL (80-99) Mean Corpuscular Hemoglobin 27.0 PG (27.0-31.0) Mean Corpuscular Hemoglobin Concent 31.4 G/DL (32.0-36.0) L Red Cell Distribution Width 15.4 % (11.6-14.8) H Platelet Count 546 K/UL (150-450) H Mean Platelet Volume 7.2 FL (6.5-10.1) Neutrophils (%) (Auto) 62.8 % (45.0-75.0) Lymphocytes (%) (Auto) 24.5 % (20.0-45.0) Monocytes (%) (Auto) 9.2 % (1.0-10.0) Eosinophils (%) (Auto) 2.5 % (0.0-3.0) Basophils (%) (Auto) 0.9 % (0.0-2.0) Sodium Level 131 mEQ/L (135-145) L Potassium Level 3.1 mEQ/L (3.4-4.9) L Chloride Level 92 mEQ/L (98-107) L Carbon Dioxide Level 24 mEQ/L (20-30) Anion Gap 15 (5-15) Blood Urea Nitrogen 9 mg/dL (7-23) Creatinine 0.6 mg/dL (0.5-0.9) Estimat Glomerular Filtration Rate > 60 mL/min (>60) Glucose Level 123 mg/dL (74-106) H Calcium Level 6.6 mg/dL (8.6-10.2) L Total Bilirubin 0.5 mg/dL (0.0-1.2) Aspartate Amino Transf (AST/SGOT) 8 U/L (5-40) Alanine Aminotransferase (ALT/SGPT) 5 U/L (3-33) Alkaline Phosphatase 135 U/L (35-104) H Total Protein 6.2 g/dL (6.6-8.7) L Albumin 2.0 g/dL (3.5-5.2) L Globulin 4.2 g/dL Albumin/Globulin Ratio 0.4 (1.0-2.7) L Lipase 25 U/L (< 60) Height (Feet): 5 Height (Inches): 5.00 Weight (Pounds): 210 Medications Current Medications Medications (Trade) Dose Ordered Sig/Pineda Route PRN Reason Start Time Stop Time Status Last Admin Dose Admin Acetaminophen (Tylenol) 650 mg Q4H PRN ORAL Mild Pain/Temp > 100.5 04/19/16 17:15 05/19/16 17:14 Al Hydroxide/Mg Hydroxide (Mylanta) 30 ml EVERY 4 HOURS PRN ORAL Heartburn 04/19/16 17:15 05/19/16 17:14 Dextrose STAT PRN IV Hypoglycemia 04/19/16 17:15 05/19/16 17:14 Heparin Sodium (Porcine) (Heparin 5000 units/ml) 5,000 units EVERY 12 HOURS SUBQ 04/19/16 21:00 05/19/16 20:59 Hydromorphone HCl 2 mg 2 mg Q3H PRN IVP Severe Pain (Pain Scale 7-10) 04/19/16 17:15 04/26/16 17:14 Magnesium Hydroxide 30 ml 30 ml DAILYPRN PRN ORAL Constipation 04/19/16 17:15 05/19/16 17:14 Ondansetron HCl (Zofran) 4 mg Q6H PRN IVP Nausea & Vomiting 04/19/16 17:15 05/19/16 17:14 Pantoprazole (Protonix) 40 mg DAILY ORAL 04/20/16 09:00 05/20/16 08:59 Sodium Chloride (Sodium Chloride 1000ml bag) 1,000 ml @ 100 mls/hr Q10H IV 04/19/16 18:00 05/19/16 17:59 04/19/16 17:49 Tigecycline/ Dextrose (Tygacil/D5W 100ml) 100 ml @ 200 mls/hr EVERY 12 HOURS IVPB 04/20/16 09:00 04/20/16 20:59 Tigecycline/ Dextrose (Tygacil/D5W 100ml) 100 ml @ 200 mls/hr ONCE ONCE IVPB 04/19/16 21:00 04/19/16 21:29 Zolpidem Tartrate (Ambien) 5 mg HSPRN PRN ORAL Insomnia 04/19/16 17:15 05/19/16 17:14 Assessment/Plan Assessment/Plan Patient 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 After obtaining consent, deep open bone biopsy of the sacral bone was performed and sent for pathology and culture. Sharp excisional debridement to the level of muscle was performed of both the sacral and right posterior thigh ulcer. Dressings will be ordered. Recommend ID consult. Needs to be completely offloaded off of her sacrum. Check prealbumin which is likely to be low given her recent history of emesis and poor appetite. LEEANNA CORONA Apr 19, 2016 19:11
[2016-04-19 20:00] VITALS: BP 112/59
[2016-04-19] MEDS: Heparin 5000 units/ml inj SUBQ SCH (20:28)
[2016-04-19 22:00] VITALS: BP 101/62
--- NOTE | 2016-04-19 22:31 | General Progress Note ---
Assessment/Plan Assessment/Plan dictated Song Bowen MD Subjective Allergies: Coded Allergies: CEFTRIAXONE (Verified Allergy, Intermediate, SOB, HR-140bpm, face swollen , pt became red, 10/24/15) CODEINE (Verified Allergy, Intermediate, SWELLING, 01/03/11) LATEX (Verified Allergy, Intermediate, SWELLING, 01/03/11) PIPERACILLIN (Verified Allergy, Intermediate, Itching, 08/29/15) 08/29/15 tolerates Ceftaroline TAZOBACTAM (Verified Allergy, Intermediate, Itching, 01/29/15) POLYMYXIN B (Verified Allergy, Mild, Rash, 04/08/16) Suspected allergy reported by MD VANCOMYCIN (Verified Allergy, Mild, 07/15/14) ASPARAGINASE (Verified Allergy, Unknown, 01/28/14) CEFUROXIME (Unverified Allergy, Unknown, 04/19/16) IRON (Verified Allergy, Unknown, 01/28/14) Objective Last 24 Hour Vital Signs Date Time Temp Pulse Resp B/P Pulse Ox O2 Delivery O2 Flow Rate FiO2 04/19/16 16:42 98.0 81 16 102/62 99 Room Air 04/19/16 15:36 98.0 86 16 98/69 99 Room Air 04/19/16 15:10 97.4 04/19/16 14:00 92 16 100/72 99 Room Air 04/19/16 12:00 89 16 111/82 97 Room Air 04/19/16 10:15 97.4 04/19/16 10:00 101 18 104/60 97 Room Air 04/19/16 08:41 97.3 100 16 114/83 100 Room Air Laboratory Tests 04/19/16 09:00: White Blood Count 10.0, Red Blood Count 3.76L, Hemoglobin 10.2L, Hematocrit 32.3L, Mean Corpuscular Volume 86, Mean Corpuscular Hemoglobin 27.0, Mean Corpuscular Hemoglobin Concent 31.4L, Red Cell Distribution Width 15.4H, Platelet Count 546H, Mean Platelet Volume 7.2, Neutrophils (%) (Auto) 62.8, Lymphocytes (%) (Auto) 24.5, Monocytes (%) (Auto) 9.2, Eosinophils (%) (Auto) 2.5, Basophils (%) (Auto) 0.9, Sodium Level 131L, Potassium Level 3.1L, Chloride Level 92L, Carbon Dioxide Level 24, Anion Gap 15, Blood Urea Nitrogen 9 , Creatinine 0.6, Estimat Glomerular Filtration Rate > 60, Glucose Level 123H, Calcium Level 6.6L, Total Bilirubin 0.5, Aspartate Amino Transf (AST/SGOT) 8, Alanine Aminotransferase (ALT/SGPT) 5, Alkaline Phosphatase 135H, Total Protein 6.2L, Albumin 2.0L, Globulin 4.2, Albumin/Globulin Ratio 0.4L, Lipase 25 04/19/16 20:55: Prealbumin [Pending] Height (Feet): 5 Height (Inches): 5.00 Weight (Pounds): 210 PITER BOWEN Apr 19, 2016 22:31
[2016-04-19] MEDS: DiphenhydrAMINE 50mg/ml Inj IVP PRN (23:48)
[2016-04-20] VITALS: BP 123/71
--- NOTE | 2016-04-20 00:37 | History and Physical Report ---
DATE OF ADMISSION: 04/19/2016 REASON FOR ADMISSION: Intractable vomiting, dehydration, and severe pain. HISTORY OF PRESENT ILLNESS: The patient is an unfortunate 40-year-old female with multiple medical problems. The patient was recently discharged from the hospital back on 04/15/2016. The patient was noted to have significant issues with left hip wound. The patient also has allergic reaction. She was being treated for MRSA, Acinetobacter, and Streptococcus in both hips. The patient also had a bacteremia. The patient was eventually stabilized and discharged to home after adequate IV hydration and IV antibiotics. Home health was arranged and the patient had been in the emergency room recently for pain and now she presents again for severe nausea and vomiting, intractable. The patient is unable to keep anything down. The patient is feeling quite ill and requires admission. The patient does take quite a bit of IV Dilaudid while in the hospital, but has been failing to thrive recently, doing overall worse than baseline state. The patient has multiple medical problems as outlined. PAST MEDICAL HISTORY: chronic paraplegia, prior history of acute renal failure, cellulitis, recurrent hip site infection including abscess, especially in the left hip, bilateral lower extremity edema intermittently, dermatitis mostly antibiotic related, diabetes, likely anemia, prior history of transfusion. SOCIAL HISTORY: No smoking. No drinking. The patient is disabled and unemployed. MEDICATIONS: Noted ALLERGIES: Noted. FAMILY HISTORY: Otherwise noncontributory. REVIEW OF SYSTEMS: Otherwise reviewed. PHYSICAL EXAMINATION: GENERAL: The patient is a well-developed female, appears to be quite ill and debilitated. Overall, the patient appears older than her stated age. VITAL SIGNS: Notable for blood pressure 104/60, temperature 97.3, respiratory rate 18, and saturation 97%, and heart rate is 101. HEENT: Fairly negative. Extraocular movements are grossly intact. Oropharynx is otherwise moist. LUNGS: Fairly clear. No rhonchi or wheezes. CARDIAC: S1 and S2. Slightly tachycardic without murmurs or rubs. ABDOMEN: Soft, nontender, and nondistended. EXTREMITIES: No cyanosis or clubbing. Minimal edema. NEUROLOGICAL: Paraplegia. LABORATORY DATA: Reviewed. White count is 10, hemoglobin 10.2, hematocrit 32.3, and platelets of 146,000. Chemistry, potassium 3.1 and sodium 131. BUN and creatinine are normal. Calcium is 6.6. Liver enzymes are elevated. IMPRESSION: 1. Intractable nausea and vomiting. 2. Intractable pain. 3. Recent hip wound infection. 4. Paraplegia. 5. Anemia. 6. History of transfusion. 7. History of acute renal failure and dehydration. 8. Protein-calorie malnutrition. RECOMMENDATIONS: Encourage p.o. supplementation for nutrition. IV antibiotics to continue. She was on Tygacil. We will continue IV hydration, antiemetics, pain control. Obtain GI evaluation. Obtain ID evaluation to stabilize and we will discharge the patient back to home once improved and stable. discussed with all consultants Thanh Glover M.D. DR: SUSANNE JOB#: [id number] CC: MADI
[2016-04-20] MEDS: DiphenhydrAMINE 50mg/ml Inj IVP PRN ×4 (03:42→21:55)
[2016-04-20 04:00] VITALS: BP 103/56
--- NOTE | 2016-04-20 06:27 | Consultation ---
DATE OF CONSULTATION: 04/19/2016 Gastrology Consultation CHIEF COMPLAINT: I was asked to see this patient by Dr. Thanh Glover for evaluation of vomiting. HISTORY OF PRESENT ILLNESS: The patient is a 40-year-old debilitated unfortunate white woman with a history of paraplegia and she was brought into the hospital due to abdominal pain, nausea, and vomiting. The patient states that the abdominal pain is chronic with nausea and vomiting. It has been going on for three weeks. She said she has had anorexia and inability to eat with significant weight loss. She denies any hematochezia. She does take medical marijuana as an outpatient to boost her appetite. She denies any fevers or chills. The patient has been admitted before to [facility] and in November 2015, she underwent endoscopy for the mass and a colonoscopy through stoma. The endoscopy was unremarkable. The colonoscopy through stoma in anterograde and the retrograde limbs, both of which were unremarkable. The colostomy was identified as a loop colostomy. Both sacrum and rectum were reached through the colostomy. The patient also underwent an abdominal ultrasound in November 2015 showing cholelithiasis and mild hydronephrosis. The patient also had an abdomen and pelvis CT scan at that time showing subacute changes in the psoas muscle, which has been extensively described. There were also changes in the hips identified. identified. The patient is a paraplegic and has multiple decubitus ulcerations in both hips and in the back. Her perception of pain in these areas is poor. The patient also . She does have decubitus ulcer. She is areas. PAST MEDICAL HISTORY: History of possible asthma, he is paraplegic status post loop colostomy, constipation, history of anemia, history of multiple infections and rash, skin decubitus ulcerations, history of opioid addiction. MEDICATIONS: See chart list for details. ALLERGIES: None. FAMILY HISTORY: Noncontributory. SOCIAL HISTORY: The patient resides in the [place] area and has had a caregiver who is taking care of her. REVIEW OF SYSTEMS: Otherwise negative. PHYSICAL EXAMINATION: VITAL SIGNS: The patient is a debilitated woman seen in her room. HEENT: Normocephalic and atraumatic. Sclerae anicteric. Oropharynx clear. NECK: Supple. CHEST: Clear to auscultation. CARDIOVASCULAR: Regular rate. ABDOMEN: Soft and obese with some loose skin suggestive of weight loss. There are also decubitus ulcerations laterally on the hips suggestive of decubitus. EXTREMITIES: Revealed contraction deformities of the lower extremities and paraplegia. NEUROLOGIC: Notable for paraplegia. LABORATORY DATA: Noted. ASSESSMENT: This patient presents with nausea, vomiting, abdominal pain, and weight loss of unclear etiology. The patient's exam is somewhat difficult due to body habitus. She is paraplegic and her pain perception is altered. The patient does have cholelithiasis and mildly elevated alkaline phosphatase. The significance of is not clear, but the HIDA scan with CCK can be ordered to rule out any evidence of cholecystitis. This may be resulting in the patient's nausea and vomiting. The patient has already had an endoscopy and colonoscopy worthwhile at this point. If the patient's nausea and vomiting persists, then further imaging with repeat CAT scan of the abdomen and pelvis can be considered. RECOMMENDATIONS: 1. Check HIDA scan with CCK. 2. Follow symptoms. 3. Further recommendations to follow based on the observing the patient's symptoms. 4. Proton pump inhibitor. Thank you for asking me to participate in the care of this patient. Lita Bowen M.D. DR: HUMBERTO JOB#: [id number] CC:
[2016-04-20 07:36] LABS: BASOPHILS % (AUTO) 0.8 % (0.0-2.0); EOSINOPHILS % (AUTO) 3.1 % (0.0-3.0); MEAN CORPUSCULAR HEMOGLOBIN 27.2 PG (27.0-31.0); MEAN CORPUSCULAR VOLUME 88 FL (80-99); MEAN PLATELET VOLUME 7.2 FL (6.5-10.1); MONOCYTES % (AUTO) 10.8 % (1.0-10.0); NEUTROPHILS % (AUTO) 51.3 % (45.0-75.0); PLATELET COUNT 446 K/UL (150-450); RED CELL DISTRIBUTION WIDTH 15.1 % (11.6-14.8)
[2016-04-20 08:07] LABS: ANION GAP 15 (5-15); CALCIUM 6.7 mg/dL (8.6-10.2); CARBON DIOXIDE 23 mEQ/L (20-30); CHLORIDE 98 mEQ/L (98-107); CREATININE 0.6 mg/dL (0.5-0.9); GLOMERULAR FILTRATION RATE > 60 mL/min (>60); HEMOLYSIS 4; POTASSIUM 3.7 mEQ/L (3.4-4.9); SODIUM 136 mEQ/L (135-145)
--- NOTE | 2016-04-20 08:11 | General Progress Note ---
Assessment/Plan Assessment/Plan Assessment - N/V, ? etiology, ? worsened on narcotics - weight loss - abd pain - cholelithiasis - negative EGD/Colon 11/2105 - multiple decubs Recommendations - HIDA scan - trial of Marinol and Remeron - If HIDA negative, will check abd/pelvis CT to f/u prior abnormalities seen Subjective Allergies: Coded Allergies: CEFTRIAXONE (Verified Allergy, Intermediate, SOB, HR-140bpm, face swollen , pt became red, 10/24/15) CODEINE (Verified Allergy, Intermediate, SWELLING, 01/03/11) LATEX (Verified Allergy, Intermediate, SWELLING, 01/03/11) PIPERACILLIN (Verified Allergy, Intermediate, Itching, 08/29/15) 08/29/15 tolerates Ceftaroline TAZOBACTAM (Verified Allergy, Intermediate, Itching, 01/29/15) POLYMYXIN B (Verified Allergy, Mild, Rash, 04/08/16) Suspected allergy reported by VANCOMYCIN (Verified Allergy, Mild, 07/15/14) ASPARAGINASE (Verified Allergy, Unknown, 01/28/14) CEFUROXIME (Unverified Allergy, Unknown, 04/19/16) IRON (Verified Allergy, Unknown, 01/28/14) Subjective Feels OK one episode of vomiting documented for HIDA today Objective Last 24 Hour Vital Signs Date Time Temp Pulse Resp B/P Pulse Ox O2 Delivery O2 Flow Rate FiO2 04/20/16 04:12 97.7 04/20/16 04:00 97.5 104 22 103/56 99 Room Air 04/20/16 00:00 97.5 93 22 123/71 97 Room Air 04/19/16 22:00 97.7 90 16 101/62 97 Room Air 04/19/16 20:00 97.3 97 22 112/59 98 Room Air 04/19/16 16:42 98.0 81 16 102/62 99 Room Air 04/19/16 15:36 98.0 86 16 98/69 99 Room Air 04/19/16 15:10 97.4 04/19/16 14:00 92 16 100/72 99 Room Air 04/19/16 12:00 89 16 111/82 97 Room Air 04/19/16 10:15 97.4 04/19/16 10:00 101 18 104/60 97 Room Air 04/19/16 08:41 97.3 100 16 114/83 100 Room Air Intake and Output 04/19/16 04/20/16 19:00 07:00 Intake Total 1151.5 ml 1100 ml Output Total 100 ml Balance 1051.5 ml 1100 ml Intake Oral 0 ml IV Total 1151.5 ml 1100 ml Output Stool Total 100 ml # Voids 2 2 Laboratory Tests 04/19/16 09:00: White Blood Count 10.0, Red Blood Count 3.76L, Hemoglobin 10.2L, Hematocrit 32.3L, Mean Corpuscular Volume 86, Mean Corpuscular Hemoglobin 27.0, Mean Corpuscular Hemoglobin Concent 31.4L, Red Cell Distribution Width 15.4H, Platelet Count 546H, Mean Platelet Volume 7.2, Neutrophils (%) (Auto) 62.8, Lymphocytes (%) (Auto) 24.5, Monocytes (%) (Auto) 9.2, Eosinophils (%) (Auto) 2.5, Basophils (%) (Auto) 0.9, Sodium Level 131L, Potassium Level 3.1L, Chloride Level 92L, Carbon Dioxide Level 24, Anion Gap 15, Blood Urea Nitrogen 9 , Creatinine 0.6, Estimat Glomerular Filtration Rate > 60, Glucose Level 123H, Calcium Level 6.6L, Total Bilirubin 0.5, Aspartate Amino Transf (AST/SGOT) 8, Alanine Aminotransferase (ALT/SGPT) 5, Alkaline Phosphatase 135H, Total Protein 6.2L, Albumin 2.0L, Globulin 4.2, Albumin/Globulin Ratio 0.4L, Lipase 25 04/19/16 20:55: Prealbumin [Pending] 04/20/16 05:00: White Blood Count 8.0, Red Blood Count 3.10L, Hemoglobin 8.4L, Hematocrit 27.2L , Mean Corpuscular Volume 88, Mean Corpuscular Hemoglobin 27.2, Mean Corpuscular Hemoglobin Concent 31.0L, Red Cell Distribution Width 15.1H, Platelet Count 446, Mean Platelet Volume 7.2, Neutrophils (%) (Auto) 51.3, Lymphocytes (%) (Auto) 34.0, Monocytes (%) (Auto) 10.8H, Eosinophils (%) (Auto) 3.1H, Basophils (%) (Auto) 0.8, Sodium Level [Pending], Potassium Level [Pending ], Chloride Level [Pending], Carbon Dioxide Level [Pending], Blood Urea Nitrogen [Pending], Creatinine [Pending], Estimat Glomerular Filtration Rate [ Pending], Glucose Level [Pending], Calcium Level [Pending] Height (Feet): 5 Height (Inches): 5.00 Weight (Pounds): 210 Objective WDWN NCAT supple CTA RRR Soft ND NT, (+) colostomy (+) contracted PITER DEAN Apr 20, 2016 08:11
[2016-04-20] MEDS: Heparin 5000 units/ml inj SUBQ SCH ×2 (08:18→21:00)
--- NOTE | 2016-04-20 08:36 | General Progress Note ---
Assessment/Plan Assessment/Plan IMPRESSION: 1. Intractable nausea and vomiting. 2. Intractable pain. 3. Recent hip wound infection. 4. Paraplegia. 5. Anemia. 6. History of transfusion. 7. History of acute renal failure and dehydration. 8. Protein-calorie malnutrition. 9. memory loss PLAN IV antibiotics ID follow up culture follow up may need transfusion GI appreciated neuro evaluation pain control close follow up impression, plan, and exam edited and reviewed in detail care discussed with RN Subjective Allergies: Coded Allergies: CEFTRIAXONE (Verified Allergy, Intermediate, SOB, HR-140bpm, face swollen , pt became red, 10/24/15) CODEINE (Verified Allergy, Intermediate, SWELLING, 01/03/11) LATEX (Verified Allergy, Intermediate, SWELLING, 01/03/11) PIPERACILLIN (Verified Allergy, Intermediate, Itching, 08/29/15) 08/29/15 tolerates Ceftaroline TAZOBACTAM (Verified Allergy, Intermediate, Itching, 01/29/15) POLYMYXIN B (Verified Allergy, Mild, Rash, 04/08/16) Suspected allergy reported by VANCOMYCIN (Verified Allergy, Mild, 07/15/14) ASPARAGINASE (Verified Allergy, Unknown, 01/28/14) CEFUROXIME (Unverified Allergy, Unknown, 04/19/16) IRON (Verified Allergy, Unknown, 01/28/14) Subjective noted intermittent memory loss Objective Last 24 Hour Vital Signs Date Time Temp Pulse Resp B/P Pulse Ox O2 Delivery O2 Flow Rate FiO2 04/20/16 04:12 97.7 04/20/16 04:00 97.5 104 22 103/56 99 Room Air 04/20/16 00:00 97.5 93 22 123/71 97 Room Air 04/19/16 22:00 97.7 90 16 101/62 97 Room Air 04/19/16 20:00 97.3 97 22 112/59 98 Room Air 04/19/16 16:42 98.0 81 16 102/62 99 Room Air 04/19/16 15:36 98.0 86 16 98/69 99 Room Air 04/19/16 15:10 97.4 04/19/16 14:00 92 16 100/72 99 Room Air 04/19/16 12:00 89 16 111/82 97 Room Air 04/19/16 10:15 97.4 04/19/16 10:00 101 18 104/60 97 Room Air 04/19/16 08:41 97.3 100 16 114/83 100 Room Air Intake and Output 04/19/16 04/20/16 19:00 07:00 Intake Total 1151.5 ml 1100 ml Output Total 100 ml Balance 1051.5 ml 1100 ml Intake Oral 0 ml IV Total 1151.5 ml 1100 ml Output Stool Total 100 ml # Voids 2 2 Laboratory Tests 04/19/16 09:00: White Blood Count 10.0, Red Blood Count 3.76L, Hemoglobin 10.2L, Hematocrit 32.3L, Mean Corpuscular Volume 86, Mean Corpuscular Hemoglobin 27.0, Mean Corpuscular Hemoglobin Concent 31.4L, Red Cell Distribution Width 15.4H, Platelet Count 546H, Mean Platelet Volume 7.2, Neutrophils (%) (Auto) 62.8, Lymphocytes (%) (Auto) 24.5, Monocytes (%) (Auto) 9.2, Eosinophils (%) (Auto) 2.5, Basophils (%) (Auto) 0.9, Sodium Level 131L, Potassium Level 3.1L, Chloride Level 92L, Carbon Dioxide Level 24, Anion Gap 15, Blood Urea Nitrogen 9 , Creatinine 0.6, Estimat Glomerular Filtration Rate > 60, Glucose Level 123H, Calcium Level 6.6L, Total Bilirubin 0.5, Aspartate Amino Transf (AST/SGOT) 8, Alanine Aminotransferase (ALT/SGPT) 5, Alkaline Phosphatase 135H, Total Protein 6.2L, Albumin 2.0L, Globulin 4.2, Albumin/Globulin Ratio 0.4L, Lipase 25 04/19/16 20:55: Prealbumin [Pending] 04/20/16 05:00: White Blood Count 8.0, Red Blood Count 3.10L, Hemoglobin 8.4L, Hematocrit 27.2L , Mean Corpuscular Volume 88, Mean Corpuscular Hemoglobin 27.2, Mean Corpuscular Hemoglobin Concent 31.0L, Red Cell Distribution Width 15.1H, Platelet Count 446, Mean Platelet Volume 7.2, Neutrophils (%) (Auto) 51.3, Lymphocytes (%) (Auto) 34.0, Monocytes (%) (Auto) 10.8H, Eosinophils (%) (Auto) 3.1H, Basophils (%) (Auto) 0.8, Sodium Level 136, Potassium Level 3.7, Chloride Level 98, Carbon Dioxide Level 23, Anion Gap 15, Blood Urea Nitrogen 8, Creatinine 0.6, Estimat Glomerular Filtration Rate > 60, Glucose Level 82, Calcium Level 6.7L Height (Feet): 5 Height (Inches): 5.00 Weight (Pounds): 210 Objective GENERAL: The patient is a well-developed female, NAD HEENT: Fairly negative. Extraocular movements are grossly intact. Oropharynx is otherwise moist. LUNGS: Fairly clear. No rhonchi or wheezes. CARDIAC: S1 and S2. Slightly tachycardic without murmurs or rubs. ABDOMEN: Soft, nontender, and nondistended. EXTREMITIES: No cyanosis or clubbing. Minimal edema. NEUROLOGICAL: Paraplegia. alert and oriented x 3 LUANN MICHEL Apr 20, 2016 08:36
[2016-04-20 08:46] VITALS: BP 117/69
[2016-04-20] MEDS ORDERED: TIGECYCLINE IVPB SCH ×2 (09:00)
[2016-04-20] MEDS: Dronabinol 2.5mg Cap ORAL SCH ×2 (09:00→18:01)
[2016-04-20] MEDS ORDERED: DEXTROSE IVPB SCH ×2 (09:00)
[2016-04-20] MEDS ORDERED: Morphine Sulfate 2mg/ml Inj IVP ONE (10:15)
[2016-04-20] MEDS ORDERED: SINCALIDE IV SCH (11:00)
--- NOTE | 2016-04-20 15:15 | Diagnostic Imaging Report ---
Indication: 40-year-old female with abdominal pain nausea and vomiting. Technique: 5.78 mCi of technetium 99 m-Mebrofenin was injected intravenously. Planar imaging of the abdomen was then performed every 5 minutes up to 30 minutes and every 10 minutes up to one hour. Delayed views were also obtained. 1.9 mcg of Kinevac was then administered slowly over 5 minutes. Imaging of the gallbladder and calculation of ejection fraction performed. Findings: There is prompt uptake within the liver with good washout of radiotracer from the liver on subsequent imaging. There is excretion into the biliary ducts. Gallbladder activity is present in a timely fashion indicating patency of the cystic duct. Bowel activity is demonstrated in a timely fashion indicating patency of the common bile duct. Following administration of Kinevac, patient had an immediate episode of vomiting. The study was continued and region of interest of the gallbladder followed for 30 minutes. Gallbladder ejection fraction was calculated at 23% which is abnormally low. Impression: Low gallbladder ejection fraction 23%. This finding is one part of the consensus guidelines for functional gallbladder disease and should be taken in context of other clinical criteria.
[2016-04-20 16:00] VITALS: BP 109/65
--- NOTE | 2016-04-20 16:38 | Wound Nurse Progress Note ---
Wound RN Progress Note Wound Consult Went to Pt's room to do body assessment. Pt stated Dr Cristobal is treating her wounds and no need for wound consult. Asked Pt if we can see the wounds, Pt stated "tomorrow at 10am". Treatment ordered by Dr Cristobal and are being done by the nurses on the floor as ordered daily. BEN ANDREWS RN Apr 20, 2016 16:38
--- NOTE | 2016-04-20 17:44 | Cardiology Report ---
APPROVED REPORT EKG Measurement Heart [id number] Sinus tachycardia Possible Left atrial enlargement Cannot rule out Anterior infarct, age undetermined Abnormal ECG
[2016-04-20 19:00] VITALS: BP 111/64
--- NOTE | 2016-04-20 21:05 | Infectious Diseases Prog Note ---
Assessment/Plan Assessment/Plan Full note to follow: A) 1) acinetobacter bacteremia - sensitive to tygacil, patient with possible allergy to polymyxin 2) polymicrobial wound infection 3) osteo 4) multiple drug allergies - cabrales 5) nausea/vomiting - gi w/u in progress, ? tygacil P) 1) tygacil 2) check wc, bc, labs and bone biopsy 3) may have to hold tygacil if continued nausea and vomiting 4) orders entered 5) thank you 6) d/w RN Subjective Allergies: Coded Allergies: CEFTRIAXONE (Verified Allergy, Intermediate, SOB, HR-140bpm, face swollen , pt became red, 10/24/15) CODEINE (Verified Allergy, Intermediate, SWELLING, 01/03/11) LATEX (Verified Allergy, Intermediate, SWELLING, 01/03/11) PIPERACILLIN (Verified Allergy, Intermediate, Itching, 08/29/15) 08/29/15 tolerates Ceftaroline TAZOBACTAM (Verified Allergy, Intermediate, Itching, 01/29/15) POLYMYXIN B (Verified Allergy, Mild, Rash, 04/08/16) Suspected allergy reported by VANCOMYCIN (Verified Allergy, Mild, 07/15/14) ASPARAGINASE (Verified Allergy, Unknown, 01/28/14) CEFUROXIME (Unverified Allergy, Unknown, 04/19/16) IRON (Verified Allergy, Unknown, 01/28/14) Objective Vital Signs Last 24 Hour Vital Signs Date Time Temp Pulse Resp B/P Pulse Ox O2 Delivery O2 Flow Rate FiO2 04/20/16 19:00 97.7 100 20 111/64 100 Room Air 04/20/16 16:20 96.8 04/20/16 16:00 96.8 100 20 109/65 100 Room Air 04/20/16 08:46 97.5 104 20 117/69 98 Room Air 04/20/16 04:00 97.5 104 22 103/56 99 Room Air 04/20/16 00:00 97.5 93 22 123/71 97 Room Air 04/19/16 22:00 97.7 90 16 101/62 97 Room Air Height (Feet): 5 Height (Inches): 5.00 Weight (Pounds): 210 Microbiology Date/Time Source Procedure Growth Status 04/19/16 19:00 Sacral Wound Gram Stain - Final Resulted 04/19/16 19:00 Sacral Wound Wound Culture Pending Resulted Laboratory Tests Test 04/20/16 05:00 White Blood Count 8.0 K/UL (4.8-10.8) Red Blood Count 3.10 M/UL (4.20-5.40) L Hemoglobin 8.4 G/DL (12.0-16.0) L Hematocrit 27.2 % (37.0-47.0) L Mean Corpuscular Volume 88 FL (80-99) Mean Corpuscular Hemoglobin 27.2 PG (27.0-31.0) Mean Corpuscular Hemoglobin Concent 31.0 G/DL (32.0-36.0) L Red Cell Distribution Width 15.1 % (11.6-14.8) H Platelet Count 446 K/UL (150-450) Mean Platelet Volume 7.2 FL (6.5-10.1) Neutrophils (%) (Auto) 51.3 % (45.0-75.0) Lymphocytes (%) (Auto) 34.0 % (20.0-45.0) Monocytes (%) (Auto) 10.8 % (1.0-10.0) H Eosinophils (%) (Auto) 3.1 % (0.0-3.0) H Basophils (%) (Auto) 0.8 % (0.0-2.0) Sodium Level 136 mEQ/L (135-145) Potassium Level 3.7 mEQ/L (3.4-4.9) Chloride Level 98 mEQ/L (98-107) Carbon Dioxide Level 23 mEQ/L (20-30) Anion Gap 15 (5-15) Blood Urea Nitrogen 8 mg/dL (7-23) Creatinine 0.6 mg/dL (0.5-0.9) Estimat Glomerular Filtration Rate > 60 mL/min (>60) Glucose Level 82 mg/dL (74-106) Calcium Level 6.7 mg/dL (8.6-10.2) L Current Medications Medications (Trade) Dose Ordered Sig/Pineda Route PRN Reason Start Time Stop Time Status Last Admin Dose Admin Acetaminophen (Tylenol) 650 mg Q4H PRN ORAL Mild Pain/Temp > 100.5 04/19/16 17:15 05/19/16 17:14 Al Hydroxide/Mg Hydroxide (Mylanta) 30 ml EVERY 4 HOURS PRN ORAL Heartburn 1/9/17 17:15 05/19/16 17:14 Dextrose (Dextrose 50%) STAT PRN IV Hypoglycemia 04/19/16 17:15 05/19/16 17:14 Diphenhydramine HCl (Benadryl) 25 mg Q3HR PRN IVP Itching 04/19/16 19:45 05/19/16 19:44 04/20/16 15:50 Dronabinol (Marinol) 2.5 mg BID ORAL 04/20/16 09:00 05/20/16 08:59 04/20/16 18:01 Heparin Sodium (Porcine) (Heparin 5000 units/ml) 5,000 units EVERY 12 HOURS SUBQ 04/19/16 21:00 05/19/16 20:59 Hydromorphone HCl 2 mg 2 mg Q3H PRN IVP Severe Pain (Pain Scale 7-10) 04/19/16 17:15 04/26/16 17:14 04/20/16 15:50 Magnesium Hydroxide 30 ml 30 ml DAILYPRN PRN ORAL Constipation 04/19/16 17:15 05/19/16 17:14 Mirtazapine (Remeron) 15 mg BEDTIME ORAL 04/20/16 21:00 05/20/16 20:59 Ondansetron HCl (Zofran) 4 mg Q6H PRN IVP Nausea & Vomiting 04/19/16 17:15 05/19/16 17:14 04/20/16 15:49 Pantoprazole (Protonix) 40 mg DAILY ORAL 04/20/16 09:00 05/20/16 08:59 04/20/16 08:15 Sincalide (Kinevac) 2 mcg ONCE IV 04/20/16 11:00 05/20/16 10:59 Sodium Hypochlorite (Dakin's Quarter Strength) 1 applic DAILY TOPIC 04/21/16 14:00 05/21/16 13:59 Sodium Chloride (Sodium Chloride 1000ml bag) 1,000 ml @ 100 mls/hr Q10H IV 04/19/16 18:00 05/19/16 17:59 04/20/16 18:01 Tigecycline/ Dextrose (Tygacil/D5W 100ml) 100 ml @ 200 mls/hr EVERY 12 HOURS IVPB 04/20/16 09:00 04/20/16 20:59 04/20/16 08:18 Zolpidem Tartrate (Ambien) 5 mg HSPRN PRN ORAL Insomnia 04/19/16 17:15 05/19/16 17:14 GRZEGORZ MARTINEZ Apr 20, 2016 21:05
[2016-04-21] VITALS (8 sets, daily range): BP systolic 104–133; BP diastolic 54–86
[2016-04-21] MEDS: Dakin's 0.125% Soln (Quarter Strength) 16oz TOPIC SCH (00:14)
[2016-04-21] MEDS: DiphenhydrAMINE 50mg/ml Inj IVP PRN ×5 (01:17→18:54)
[2016-04-21 07:20] LABS: BASOPHILS % (AUTO) 0.5 % (0.0-2.0); EOSINOPHILS % (AUTO) 4.7 % (0.0-3.0); LYMPHOCYTES % (AUTO) 33.4 % (20.0-45.0); MEAN CORPUSCULAR HEMOGLOBIN 26.6 PG (27.0-31.0); MEAN CORPUSCULAR HGB CONC 29.9 G/DL (32.0-36.0); MEAN CORPUSCULAR VOLUME 89 FL (80-99); MEAN PLATELET VOLUME 6.6 FL (6.5-10.1); NEUTROPHILS % (AUTO) 50.4 % (45.0-75.0); PLATELET COUNT 473 K/UL (150-450); RED BLOOD COUNT 3.11 M/UL (4.20-5.40); RED CELL DISTRIBUTION WIDTH 15.6 % (11.6-14.8); WHITE BLOOD COUNT 9.8 K/UL (4.8-10.8)
--- NOTE | 2016-04-21 08:24 | General Progress Note ---
Assessment/Plan Assessment/Plan IMPRESSION: 1. Intractable nausea and vomiting. 2. Intractable pain. 3. Recent hip wound infection. 4. Paraplegia. 5. Anemia. 6. History of transfusion. 7. History of acute renal failure and dehydration. 8. Protein-calorie malnutrition. 9. memory loss PLAN IV antibiotics as is ID follow up noted culture follow up may need transfusion; HH same GI appreciated and HIDA reviewed neuro evaluation pending pain control close follow up guarded impression, plan, and exam edited and reviewed in detail care discussed with RN Subjective Allergies: Coded Allergies: CEFTRIAXONE (Verified Allergy, Intermediate, SOB, HR-140bpm, face swollen , pt became red, 10/24/15) CODEINE (Verified Allergy, Intermediate, SWELLING, 01/03/11) LATEX (Verified Allergy, Intermediate, SWELLING, 01/03/11) PIPERACILLIN (Verified Allergy, Intermediate, Itching, 08/29/15) 08/29/15 tolerates Ceftaroline TAZOBACTAM (Verified Allergy, Intermediate, Itching, 01/29/15) POLYMYXIN B (Verified Allergy, Mild, Rash, 04/08/16) Suspected allergy reported by VANCOMYCIN (Verified Allergy, Mild, 07/15/14) ASPARAGINASE (Verified Allergy, Unknown, 01/28/14) CEFUROXIME (Unverified Allergy, Unknown, 04/19/16) IRON (Verified Allergy, Unknown, 01/28/14) Subjective same weak events and cultures noted Objective Last 24 Hour Vital Signs Date Time Temp Pulse Resp B/P Pulse Ox O2 Delivery O2 Flow Rate FiO2 04/21/16 04:25 98.0 88 20 133/66 99 Room Air 04/21/16 02:06 98.0 90 20 122/62 99 Room Air 04/21/16 00:00 98.0 90 20 122/62 99 Room Air 04/20/16 22:25 97.7 04/20/16 19:00 97.7 100 20 111/64 100 Room Air 04/20/16 16:00 96.8 100 20 109/65 100 Room Air 04/20/16 08:46 97.5 104 20 117/69 98 Room Air Intake and Output 04/20/16 04/21/16 19:00 07:00 Intake Total 750 ml 1380 ml Balance 750 ml 1380 ml Intake Oral 180 ml IV Total 750 ml 1200 ml # Voids 2 4 # Bowel Movements 1 Laboratory Tests 04/21/16 04:00: White Blood Count 9.8, Red Blood Count 3.11L, Hemoglobin 8.3L, Hematocrit 27.8L , Mean Corpuscular Volume 89, Mean Corpuscular Hemoglobin 26.6L, Mean Corpuscular Hemoglobin Concent 29.9L, Red Cell Distribution Width 15.6H, Platelet Count 473H, Mean Platelet Volume 6.6, Neutrophils (%) (Auto) 50.4, Lymphocytes (%) (Auto) 33.4, Monocytes (%) (Auto) 11.0H, Eosinophils (%) (Auto) 4.7H, Basophils (%) (Auto) 0.5, Sodium Level [Pending], Potassium Level [Pending ], Chloride Level [Pending], Carbon Dioxide Level [Pending], Blood Urea Nitrogen [Pending], Creatinine [Pending], Estimat Glomerular Filtration Rate [ Pending], Glucose Level [Pending], Calcium Level [Pending] Height (Feet): 5 Height (Inches): 5.00 Weight (Pounds): 210 Objective GENERAL: The patient is a well-developed female, NAD HEENT: Fairly negative. Extraocular movements are grossly intact. Oropharynx is otherwise moist. LUNGS: Fairly clear. No rhonchi or wheezes. CARDIAC: S1 and S2. Slightly tachycardic without murmurs or rubs. ABDOMEN: Soft, nontender, and nondistended. EXTREMITIES: No cyanosis or clubbing. Minimal edema. NEUROLOGICAL: Paraplegia. alert and oriented x 3 reviewed and edited LUANN MICHEL Apr 21, 2016 08:24
[2016-04-21] MEDS: Dronabinol 2.5mg Cap ORAL SCH ×2 (08:48→18:00)
[2016-04-21] MEDS: Heparin 5000 units/ml inj SUBQ SCH ×2 (08:53→22:52)
[2016-04-21 08:58] LABS: ANION GAP 14 (5-15); CARBON DIOXIDE 23 mEQ/L (20-30); CHLORIDE 100 mEQ/L (98-107); CREATININE 0.7 mg/dL (0.5-0.9); GLOMERULAR FILTRATION RATE > 60 mL/min (>60); HEMOLYSIS 2; POTASSIUM 3.5 mEQ/L (3.4-4.9); SODIUM 137 mEQ/L (135-145)
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
[2016-04-21] MEDS ORDERED: Dakin's 0.125% Soln (Quarter Strength) 16oz TOPIC SCH (14:00)
[2016-04-21] MEDS: Topiramate 25mg tab ORAL SCH ×2 (14:16→22:47)
--- NOTE | 2016-04-21 15:14 | Wound Nurse Progress Note ---
Wound RN Progress Note Wound Consult Followed up with Patient wanting to be seen today as requested by patient on 01/25 for wound consult assessment. Patient refused stated "I'm having a trip, I 'm good, I'm good". Patient did not agree for body wound assessment. Patient currently has orders for wounds and they are being treated as ordered. SUGEY JORDAN Apr 21, 2016 15:14
--- NOTE | 2016-04-21 18:12 | Infectious Diseases Prog Note ---
Assessment/Plan Assessment/Plan HPI: 40 yo well known to me, asked to see patient for abx management for infected wounds, ? osteo, hx bacteremia. Notes and records reviewed. ASSESSMENT AND PLAN: 1. 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 acinetobacter bacteremia, f/u blood cultures negative - continue tygacil 3. nausea and vomiting - improved today, gi w/u in progress 4. Weight loss, anemia, hx lois resolved 5. History of osteoarthritis and treatment. 6. Colostomy. 7. Paraplegia. 8. Anemia. 9. ? diabetes - patient denies dm hx, bs elevated only with infection per pt 10. Chronic pain management and chronic pain syndrome, anxiety 11. History of cholelithiasis. 12. Pain management for primary, opiate dependency 13. Multiple allergies to asparaginase, Rocephin, codeine, iron, Latex, piperacillin, tazobactam, and vancomycin. 14. wound care per protocol and plastic surgery 15. The case was discussed with RN 16. The case was discussed with the patient. 17. fh-nc, sh-negative, mar noted 18. notes and records reviewed Subjective Constitutional: Reports: fatigue, Denies: fever HEENT: Denies: congestion Respiratory: Denies: shortness of breath Cardiovascular: Denies: chest pain Gastrointestinal/Abdominal: Reports: nausea, other - less n/v, + colostomy, vomiting Neurologic: Denies: headache Psychiatric: Denies: depression Skin: Reports: other - has dry skin, ? rash - from previous admission Hematologic: Denies: bleeding Musculoskeletal: Denies: pain Allergies: Coded Allergies: CEFTRIAXONE (Verified Allergy, Intermediate, SOB, HR-140bpm, face swollen , pt became red, 10/24/15) CODEINE (Verified Allergy, Intermediate, SWELLING, 01/03/11) LATEX (Verified Allergy, Intermediate, SWELLING, 01/03/11) PIPERACILLIN (Verified Allergy, Intermediate, Itching, 08/29/15) 08/29/15 tolerates Ceftaroline TAZOBACTAM (Verified Allergy, Intermediate, Itching, 01/29/15) POLYMYXIN B (Verified Allergy, Mild, Rash, 04/08/16) Suspected allergy reported by VANCOMYCIN (Verified Allergy, Mild, 07/15/14) ASPARAGINASE (Verified Allergy, Unknown, 01/28/14) CEFUROXIME (Unverified Allergy, Unknown, 04/19/16) IRON (Verified Allergy, Unknown, 01/28/14) Objective Vital Signs Last 24 Hour Vital Signs Date Time Temp Pulse Resp B/P Pulse Ox O2 Delivery O2 Flow Rate FiO2 04/21/16 16:00 98.4 133 20 110/71 99 Room Air 04/21/16 08:54 108 04/21/16 08:44 98.2 123 20 125/65 97 Room Air 04/21/16 04:25 98.0 88 20 133/66 99 Room Air 04/21/16 02:06 98.0 90 20 122/62 99 Room Air 04/21/16 00:00 98.0 90 20 122/62 99 Room Air 04/20/16 22:25 97.7 04/20/16 19:00 97.7 100 20 111/64 100 Room Air Height (Feet): 5 Height (Inches): 5.00 Weight (Pounds): 210 General Appearance: no acute distress HEENT: normocephalic, atraumatic, anicteric, mucous membranes moist, PERRL, pharynx normal, supple, no JVD Respiratory/Chest: lungs clear, normal breath sounds, no respiratory distress, no accessory muscle use Cardiovascular: normal rate, regular rhythm, no gallop/murmur, no JVD Abdomen: normal bowel sounds, soft, non tender, no organomegaly, other - + colostomy Genitourinary: other - no bay Extremities: no cyanosis Skin: rash - no change in skin rash from previous admission, other - wounds covered 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, alert, oriented x 3, responsive, motor weakness Lymphatic: no neck adenopathy Musculoskeletal: no effusion Objective hida - report noted Microbiology Date/Time Source Procedure Growth Status 04/19/16 09:10 Blood Not Otherwise Specified Blood Culture - Preliminary NO GROWTH AFTER 24 HOURS Resulted 04/19/16 09:00 Blood Not Otherwise Specified Blood Culture - Preliminary NO GROWTH AFTER 24 HOURS Resulted 04/19/16 19:00 Sacral Wound Gram Stain - Final Resulted 04/19/16 19:00 Wound Culture - Preliminary Gram Negative Bacillus 1 Gram Negative Bacillus 2 Gram Negative Bacillus 3 Resulted Laboratory Tests Test 04/21/16 04:00 White Blood Count 9.8 K/UL (4.8-10.8) Red Blood Count 3.11 M/UL (4.20-5.40) L Hemoglobin 8.3 G/DL (12.0-16.0) L Hematocrit 27.8 % (37.0-47.0) L Mean Corpuscular Volume 89 FL (80-99) Mean Corpuscular Hemoglobin 26.6 PG (27.0-31.0) L Mean Corpuscular Hemoglobin Concent 29.9 G/DL (32.0-36.0) L Red Cell Distribution Width 15.6 % (11.6-14.8) H Platelet Count 473 K/UL (150-450) H Mean Platelet Volume 6.6 FL (6.5-10.1) Neutrophils (%) (Auto) 50.4 % (45.0-75.0) Lymphocytes (%) (Auto) 33.4 % (20.0-45.0) Monocytes (%) (Auto) 11.0 % (1.0-10.0) H Eosinophils (%) (Auto) 4.7 % (0.0-3.0) H Basophils (%) (Auto) 0.5 % (0.0-2.0) Sodium Level 137 mEQ/L (135-145) Potassium Level 3.5 mEQ/L (3.4-4.9) Chloride Level 100 mEQ/L (98-107) Carbon Dioxide Level 23 mEQ/L (20-30) Anion Gap 14 (5-15) Blood Urea Nitrogen 8 mg/dL (7-23) Creatinine 0.7 mg/dL (0.5-0.9) Estimat Glomerular Filtration Rate > 60 mL/min (>60) Glucose Level 106 mg/dL (74-106) Calcium Level 7.0 mg/dL (8.6-10.2) L Current Medications Medications (Trade) Dose Ordered Sig/Pineda Route PRN Reason Start Time Stop Time Status Last Admin Dose Admin Acetaminophen (Tylenol) 650 mg Q4H PRN ORAL Mild Pain/Temp > 100.5 04/19/16 17:15 05/19/16 17:14 Al Hydroxide/Mg Hydroxide (Mylanta) 30 ml EVERY 4 HOURS PRN ORAL Heartburn 04/19/16 17:15 05/19/16 17:14 Dextrose (Dextrose 50%) STAT PRN IV Hypoglycemia 04/19/16 17:15 05/19/16 17:14 Diphenhydramine HCl (Benadryl) 25 mg Q3HR PRN IVP Itching 04/19/16 19:45 05/19/16 19:44 04/21/16 11:00 Dronabinol (Marinol) 2.5 mg BID ORAL 04/20/16 09:00 05/20/16 08:59 04/21/16 08:48 Heparin Sodium (Porcine) (Heparin 5000 units/ml) 5,000 units EVERY 12 HOURS SUBQ 04/19/16 21:00 05/19/16 20:59 Hydromorphone HCl 2 mg 2 mg Q3H PRN IVP Severe Pain (Pain Scale 7-10) 04/19/16 17:15 04/26/16 17:14 04/21/16 17:21 Magnesium Hydroxide (Mom) 30 ml DAILYPRN PRN ORAL Constipation 04/19/16 17:15 05/19/16 17:14 Mirtazapine (Remeron) 15 mg BEDTIME ORAL 04/20/16 21:00 05/20/16 20:59 04/20/16 21:27 Ondansetron HCl (Zofran) 4 mg Q6H PRN IVP Nausea & Vomiting 04/19/16 17:15 05/19/16 17:14 04/21/16 17:20 Pantoprazole (Protonix) 40 mg DAILY ORAL 04/20/16 09:00 05/20/16 08:59 04/21/16 08:48 Sodium Hypochlorite 1 applic 1 applic Q24H TOPIC 04/21/16 00:00 05/21/16 00:00 04/21/16 00:14 Sodium Chloride (Sodium Chloride 1000ml bag) 1,000 ml @ 100 mls/hr Q10H IV 04/19/16 18:00 05/19/16 17:59 04/21/16 17:21 Tigecycline/ Dextrose (Tygacil/D5W 100ml) 100 ml @ 200 mls/hr EVERY 12 HOURS IVPB 04/20/16 22:00 04/27/16 21:59 04/21/16 08:49 Topiramate (Topamax) 25 mg EVERY 12 HOURS ORAL 04/21/16 13:00 05/21/16 12:59 Zolpidem Tartrate (Ambien) 5 mg HSPRN PRN ORAL Insomnia 04/19/16 17:15 05/19/16 17:14 GRZEGORZ MARTINEZ Apr 21, 2016 18:12
--- NOTE | 2016-04-21 21:46 | General Progress Note ---
Assessment/Plan Assessment/Plan Assessment - N/V, ? due to chronic cholecystitis - weight loss - abd pain - cholelithiasis - negative EGD/Colon 11/2105 - multiple decubs Recommendations - consider surgical opinion - trial of Marinol and Remeron - OOB Subjective Allergies: Coded Allergies: CEFTRIAXONE (Verified Allergy, Intermediate, SOB, HR-140bpm, face swollen , pt became red, 10/24/15) CODEINE (Verified Allergy, Intermediate, SWELLING, 01/03/11) LATEX (Verified Allergy, Intermediate, SWELLING, 01/03/11) PIPERACILLIN (Verified Allergy, Intermediate, Itching, 08/29/15) 08/29/15 tolerates Ceftaroline TAZOBACTAM (Verified Allergy, Intermediate, Itching, 01/29/15) POLYMYXIN B (Verified Allergy, Mild, Rash, 04/08/16) Suspected allergy reported by VANCOMYCIN (Verified Allergy, Mild, 07/15/14) ASPARAGINASE (Verified Allergy, Unknown, 01/28/14) CEFUROXIME (Unverified Allergy, Unknown, 04/19/16) IRON (Verified Allergy, Unknown, 01/28/14) Subjective Feels OK had (+) HIDA for poor ejection fraction (+) vomited with CCK injection Objective Last 24 Hour Vital Signs Date Time Temp Pulse Resp B/P Pulse Ox O2 Delivery O2 Flow Rate FiO2 04/21/16 20:00 98.1 120 24 119/68 99 Room Air 04/21/16 18:59 98.6 118 24 122/64 99 04/21/16 17:51 98.2 04/21/16 16:00 98.4 133 20 110/71 99 Room Air 04/21/16 08:54 108 04/21/16 08:44 98.2 123 20 125/65 97 Room Air 04/21/16 04:25 98.0 88 20 133/66 99 Room Air 04/21/16 02:06 98.0 90 20 122/62 99 Room Air 04/21/16 00:00 98.0 90 20 122/62 99 Room Air Intake and Output 04/20/16 04/21/16 19:00 07:00 Intake Total 750 ml 1380 ml Balance 750 ml 1380 ml Intake Oral 180 ml IV Total 750 ml 1200 ml # Voids 2 4 # Bowel Movements 1 Laboratory Tests 04/21/16 04:00: White Blood Count 9.8, Red Blood Count 3.11L, Hemoglobin 8.3L, Hematocrit 27.8L , Mean Corpuscular Volume 89, Mean Corpuscular Hemoglobin 26.6L, Mean Corpuscular Hemoglobin Concent 29.9L, Red Cell Distribution Width 15.6H, Platelet Count 473H, Mean Platelet Volume 6.6, Neutrophils (%) (Auto) 50.4, Lymphocytes (%) (Auto) 33.4, Monocytes (%) (Auto) 11.0H, Eosinophils (%) (Auto) 4.7H, Basophils (%) (Auto) 0.5, Sodium Level 137, Potassium Level 3.5, Chloride Level 100, Carbon Dioxide Level 23, Anion Gap 14, Blood Urea Nitrogen 8, Creatinine 0.7, Estimat Glomerular Filtration Rate > 60, Glucose Level 106, Calcium Level 7.0L Height (Feet): 5 Height (Inches): 5.00 Weight (Pounds): 210 Objective WDWN NCAT supple CTA RRR Soft ND NT, (+) colostomy (+) contracted PITER DEAN Apr 21, 2016 21:46
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
[2016-04-22] MEDS: Dakin's 0.125% Soln (Quarter Strength) 16oz TOPIC SCH (00:14)
[2016-04-22] MEDS: DiphenhydrAMINE 50mg/ml Inj IVP PRN ×3 (02:04→16:09)
[2016-04-22 08:00] VITALS: BP 110/72
--- NOTE | 2016-04-22 08:41 | General Progress Note ---
Assessment/Plan Assessment/Plan IMPRESSION: 1. Intractable nausea and vomiting. 2. Intractable pain. 3. Recent hip wound infection. 4. Paraplegia. 5. Anemia. 6. History of transfusion. 7. History of acute renal failure and dehydration. 8. Protein-calorie malnutrition. 9. memory loss PLAN IV antibiotics noted ID follow up noted culture follow up reviewed may need transfusion; if HH drops further GI appreciated neuro evaluation noted pain control close follow up guarded impression, plan, and exam edited and reviewed in detail care discussed with RN Subjective Allergies: Coded Allergies: CEFTRIAXONE (Verified Allergy, Intermediate, SOB, HR-140bpm, face swollen , pt became red, 10/24/15) CODEINE (Verified Allergy, Intermediate, SWELLING, 01/03/11) LATEX (Verified Allergy, Intermediate, SWELLING, 01/03/11) PIPERACILLIN (Verified Allergy, Intermediate, Itching, 08/29/15) 08/29/15 tolerates Ceftaroline TAZOBACTAM (Verified Allergy, Intermediate, Itching, 01/29/15) POLYMYXIN B (Verified Allergy, Mild, Rash, 04/08/16) Suspected allergy reported by VANCOMYCIN (Verified Allergy, Mild, 07/15/14) ASPARAGINASE (Verified Allergy, Unknown, 01/28/14) CEFUROXIME (Unverified Allergy, Unknown, 04/19/16) IRON (Verified Allergy, Unknown, 01/28/14) Subjective same weak events and cultures noted neuro appreciated cultures reviewed in detail Objective Last 24 Hour Vital Signs Date Time Temp Pulse Resp B/P Pulse Ox O2 Delivery O2 Flow Rate FiO2 04/22/16 02:22 98.2 04/21/16 22:56 98.2 104 20 104/54 98 Room Air 04/21/16 20:00 98.1 120 24 119/68 99 Room Air 04/21/16 18:59 98.6 118 24 122/64 99 04/21/16 16:00 98.4 133 20 110/71 99 Room Air 04/21/16 08:54 108 04/21/16 08:44 98.2 123 20 125/65 97 Room Air Intake and Output 04/21/16 04/22/16 19:00 07:00 Intake Total 940 ml 1589 ml Balance 940 ml 1589 ml Intake Oral 240 ml 250 ml IV Total 700 ml 1339 ml # Voids 2 # Bowel Movements 1 Height (Feet): 5 Height (Inches): 5.00 Weight (Pounds): 210 Objective GENERAL: The patient is a well-developed female, NAD HEENT: Fairly negative. Extraocular movements are grossly intact. Oropharynx is otherwise moist. LUNGS: Fairly clear. No rhonchi or wheezes. CARDIAC: S1 and S2. Slightly tachycardic without murmurs or rubs. ABDOMEN: Soft, nontender, and nondistended. EXTREMITIES: No cyanosis or clubbing. Minimal edema. NEUROLOGICAL: Paraplegia. alert and oriented x 3 reviewed and edited LUANN MICHEL Apr 22, 2016 08:41
[2016-04-22] MEDS: Heparin 5000 units/ml inj SUBQ SCH ×2 (09:00→21:58)
[2016-04-22] MEDS: Dronabinol 2.5mg Cap ORAL SCH ×2 (09:00→18:00)
[2016-04-22] MEDS: Topiramate 25mg tab ORAL SCH ×2 (09:22→21:48)
[2016-04-22 12:00] VITALS: BP 130/60
[2016-04-22 16:00] VITALS: BP 125/72
[2016-04-22] MEDS ORDERED: Hydrocortisone 1% Cr 15gm TOPIC PRN (18:30)
[2016-04-22 19:00] VITALS: BP 107/64
--- NOTE | 2016-04-22 21:49 | General Progress Note ---
Assessment/Plan Assessment/Plan Assessment - N/V, ? due to chronic cholecystitis - weight loss - abd pain - cholelithiasis - negative EGD/Colon 11/2105 - multiple decubs Recommendations - consider surgical opinion for lap chang - trial of Marinol and Remeron - OOB Subjective Allergies: Coded Allergies: CEFTRIAXONE (Verified Allergy, Intermediate, SOB, HR-140bpm, face swollen , pt became red, 10/24/15) CODEINE (Verified Allergy, Intermediate, SWELLING, 01/03/11) LATEX (Verified Allergy, Intermediate, SWELLING, 01/03/11) PIPERACILLIN (Verified Allergy, Intermediate, Itching, 08/29/15) 08/29/15 tolerates Ceftaroline TAZOBACTAM (Verified Allergy, Intermediate, Itching, 01/29/15) POLYMYXIN B (Verified Allergy, Mild, Rash, 04/08/16) Suspected allergy reported by VANCOMYCIN (Verified Allergy, Mild, 07/15/14) ASPARAGINASE (Verified Allergy, Unknown, 01/28/14) CEFUROXIME (Unverified Allergy, Unknown, 04/19/16) IRON (Verified Allergy, Unknown, 01/28/14) Subjective Feels OK still with periodic emesis advised may need cholecystectomy Objective Last 24 Hour Vital Signs Date Time Temp Pulse Resp B/P Pulse Ox O2 Delivery O2 Flow Rate FiO2 04/22/16 19:00 97.3 100 20 107/64 96 Room Air 04/22/16 16:00 97.3 100 20 125/72 100 Room Air 04/22/16 14:28 98.2 04/22/16 12:00 97.2 111 20 130/60 100 Room Air 04/22/16 08:00 98.2 100 20 110/72 98 Room Air 04/21/16 22:56 98.2 104 20 104/54 98 Room Air Intake and Output 04/21/16 04/22/16 19:00 07:00 Intake Total 940 ml 1589 ml Balance 940 ml 1589 ml Intake Oral 240 ml 250 ml IV Total 700 ml 1339 ml # Voids 2 # Bowel Movements 1 Height (Feet): 5 Height (Inches): 5.00 Weight (Pounds): 210 Objective WDWN NCAT supple CTA RRR Soft ND NT, (+) colostomy (+) contracted PITER DEAN Apr 22, 2016 21:49
[2016-04-23] VITALS (7 sets, daily range): BP systolic 97–122; BP diastolic 53–74
[2016-04-23 06:46] LABS: MEAN CORPUSCULAR HEMOGLOBIN 26.8 PG (27.0-31.0); MEAN CORPUSCULAR HGB CONC 31.2 G/DL (32.0-36.0); MEAN CORPUSCULAR VOLUME 86 FL (80-99); MEAN PLATELET VOLUME 7.4 FL (6.5-10.1); PLATELET COUNT 350 K/UL (150-450); RED BLOOD COUNT 2.61 M/UL (4.20-5.40); RED CELL DISTRIBUTION WIDTH 15.5 % (11.6-14.8); WHITE BLOOD COUNT 6.3 K/UL (4.8-10.8)
[2016-04-23 06:51] LABS: ANION GAP 11 (5-15); CALCIUM 6.5 mg/dL (8.6-10.2); CARBON DIOXIDE 24 mEQ/L (20-30); CHLORIDE 106 mEQ/L (98-107); CREATININE 0.6 mg/dL (0.5-0.9); GLOMERULAR FILTRATION RATE > 60 mL/min (>60); HEMOLYSIS 2; POTASSIUM 3.3 mEQ/L (3.4-4.9); SODIUM 141 mEQ/L (135-145)
[2016-04-23 07:52] LABS: ANISOCYTOSIS 1+; BAND NEUTROPHILS % (MANUAL) 0 % (0-8); BASOPHILS % (MANUAL) 0 % (0-2); EOSINOPHILS % (MANUAL) 5 % (0-3); HYPOCHROMASIA 3+; LYMPHOCYTES % (MANUAL) 27 % (20-45); NEUTROPHILS % (MANUAL) 59 % (45-75); PLATELET ESTIMATE DECREASED; PLATELET MORPHOLOGY NORMAL; TOTAL CELLS COUNTED 100
--- NOTE | 2016-04-23 08:18 | General Progress Note ---
Assessment/Plan Assessment/Plan IMPRESSION: 1. Intractable nausea and vomiting. 2. Intractable pain. 3. Recent hip wound infection. 4. Paraplegia. 5. Anemia. 6. History of transfusion. 7. History of acute renal failure and dehydration. 8. Protein-calorie malnutrition. 9. memory loss PLAN transfuse 2 units prbc d/w patient IV antibiotics noted ID follow up noted culture follow up reviewed GS called GI appreciated neuro evaluation noted pain control close follow up guarded monitor for change impression, plan, and exam edited and reviewed in detail care discussed with RN Subjective Allergies: Coded Allergies: CEFTRIAXONE (Verified Allergy, Intermediate, SOB, HR-140bpm, face swollen , pt became red, 10/24/15) CODEINE (Verified Allergy, Intermediate, SWELLING, 01/03/11) LATEX (Verified Allergy, Intermediate, SWELLING, 01/03/11) PIPERACILLIN (Verified Allergy, Intermediate, Itching, 08/29/15) 08/29/15 tolerates Ceftaroline TAZOBACTAM (Verified Allergy, Intermediate, Itching, 01/29/15) POLYMYXIN B (Verified Allergy, Mild, Rash, 04/08/16) Suspected allergy reported by VANCOMYCIN (Verified Allergy, Mild, 07/15/14) ASPARAGINASE (Verified Allergy, Unknown, 01/28/14) CEFUROXIME (Unverified Allergy, Unknown, 04/19/16) IRON (Verified Allergy, Unknown, 01/28/14) Subjective confused events and cultures noted neuro appreciated all appreciated d/w GI; will toyin surgery Objective Last 24 Hour Vital Signs Date Time Temp Pulse Resp B/P Pulse Ox O2 Delivery O2 Flow Rate FiO2 04/23/16 04:39 98.1 99 19 110/67 96 Room Air 04/23/16 02:25 98.1 04/23/16 00:00 98.1 109 20 102/56 97 Room Air 04/22/16 19:00 97.3 100 20 107/64 96 Room Air 04/22/16 16:00 97.3 100 20 125/72 100 Room Air 04/22/16 12:00 97.2 111 20 130/60 100 Room Air Intake and Output 04/22/16 04/23/16 19:00 07:00 Intake Total 1450 ml 1120 ml Balance 1450 ml 1120 ml Intake Oral 350 ml 120 ml IV Total 1100 ml 1000 ml # Voids 2 3 # Bowel Movements 1 Laboratory Tests 04/23/16 05:00: White Blood Count 6.3, Red Blood Count 2.61L, Hemoglobin 7.0L, Hematocrit 22.4L , Mean Corpuscular Volume 86, Mean Corpuscular Hemoglobin 26.8L, Mean Corpuscular Hemoglobin Concent 31.2L, Red Cell Distribution Width 15.5H, Platelet Count 350, Mean Platelet Volume 7.4, Neutrophils (%) (Auto) , Lymphocytes (%) (Auto) , Monocytes (%) (Auto) , Eosinophils (%) (Auto) , Basophils (%) (Auto) , Differential Total Cells Counted 100, Neutrophils % ( Manual) 59, Lymphocytes % (Manual) 27, Monocytes % (Manual) 9, Eosinophils % ( Manual) 5H, Basophils % (Manual) 0, Band Neutrophils 0, Platelet Estimate DecreasedL, Platelet Morphology Normal, Hypochromasia 3+, Anisocytosis 1+, Sodium Level 141, Potassium Level 3.3L, Chloride Level 106, Carbon Dioxide Level 24, Anion Gap 11, Blood Urea Nitrogen 6L, Creatinine 0.6, Estimat Glomerular Filtration Rate > 60, Glucose Level 78, Calcium Level 6.5L Height (Feet): 5 Height (Inches): 5.00 Weight (Pounds): 210 Objective GENERAL: The patient is a well-developed female, NAD; weak confused HEENT: Fairly negative. Extraocular movements are grossly intact. Oropharynx is otherwise moist. LUNGS: Fairly clear. No rhonchi or wheezes. CARDIAC: S1 and S2. RRR without murmurs or rubs. ABDOMEN: Soft, nontender, and nondistended. EXTREMITIES: No cyanosis or clubbing. Minimal edema. NEUROLOGICAL: Paraplegia. alert and oriented x 2 some confusion and LOC reviewed and edited LUANN MICHEL Apr 23, 2016 08:18
[2016-04-23] MEDS: Heparin 5000 units/ml inj SUBQ SCH ×2 (09:00→21:00)
[2016-04-23] MEDS: Dronabinol 2.5mg Cap ORAL SCH ×2 (09:00→18:00)
[2016-04-23] MEDS: Topiramate 25mg tab ORAL SCH ×2 (09:14→21:00)
[2016-04-23] MEDS: DiphenhydrAMINE 50mg/ml Inj IVP PRN ×2 (09:15→14:47)
[2016-04-23] MEDS ORDERED: HYDROCORTISONE 0.5% TOPIC PRN (11:30)
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
--- NOTE | 2016-04-23 14:52 | Infectious Diseases Prog Note ---
Assessment/Plan Assessment/Plan ASSESSMENT AND PLAN: 1. 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 acinetobacter bacteremia, f/u blood cultures negative, s/p full tygacil course 3. nausea and vomiting - improved, gi w/u 4. Weight loss, anemia, hx lois resolved 5. History of osteoarthritis and treatment. 6. Colostomy. 7. Paraplegia. 8. Anemia. 9. ? diabetes - patient denies dm hx, bs elevated only with infection per pt 10. Chronic pain management and chronic pain syndrome, anxiety 11. History of cholelithiasis. 12. Pain management for primary, opiate dependency 13. Multiple allergies to asparaginase, Rocephin, codeine, iron, Latex, piperacillin, tazobactam, and vancomycin. 14. wound care per protocol and plastic surgery 15. The case was discussed with RN 16. The case was discussed with the patient. 17. fh-nc, sh-negative, mar noted 18. notes and records reviewed Subjective Constitutional: Reports: fatigue, Denies: fever HEENT: Denies: congestion Respiratory: Denies: shortness of breath Cardiovascular: Denies: chest pain Gastrointestinal/Abdominal: Reports: other - + colostomy, Denies: nausea, vomiting Genitourinary: Reports: other - no bay Neurologic: Denies: headache Psychiatric: Denies: depression Skin: Reports: other - less itching Hematologic: Denies: bleeding Musculoskeletal: Denies: pain Allergies: Coded Allergies: CEFTRIAXONE (Verified Allergy, Intermediate, SOB, HR-140bpm, face swollen , pt became red, 10/24/15) CODEINE (Verified Allergy, Intermediate, SWELLING, 01/03/11) LATEX (Verified Allergy, Intermediate, SWELLING, 01/03/11) PIPERACILLIN (Verified Allergy, Intermediate, Itching, 08/29/15) 08/29/15 tolerates Ceftaroline TAZOBACTAM (Verified Allergy, Intermediate, Itching, 01/29/15) POLYMYXIN B (Verified Allergy, Mild, Rash, 04/08/16) Suspected allergy reported by VANCOMYCIN (Verified Allergy, Mild, 4/6/15) ASPARAGINASE (Verified Allergy, Unknown, 01/28/14) CEFUROXIME (Unverified Allergy, Unknown, 04/19/16) IRON (Verified Allergy, Unknown, 01/28/14) Objective Vital Signs Last 24 Hour Vital Signs Date Time Temp Pulse Resp B/P Pulse Ox O2 Delivery O2 Flow Rate FiO2 04/23/16 12:00 98.4 94 118/74 04/23/16 09:45 98.1 04/23/16 08:00 98.2 92 20 116/72 96 Room Air 04/23/16 04:39 98.1 99 19 110/67 96 Room Air 04/23/16 00:00 98.1 109 20 102/56 97 Room Air 04/22/16 19:00 97.3 100 20 107/64 96 Room Air 04/22/16 16:00 97.3 100 20 125/72 100 Room Air Height (Feet): 5 Height (Inches): 5.00 Weight (Pounds): 210 General Appearance: no acute distress HEENT: normocephalic, atraumatic, anicteric, mucous membranes moist, PERRL, pharynx normal, supple, no JVD Respiratory/Chest: lungs clear, normal breath sounds, no respiratory distress, no accessory muscle use Cardiovascular: normal rate, regular rhythm, no gallop/murmur Abdomen: normal bowel sounds, soft, non tender, no organomegaly, non distended , other - + colostomy Genitourinary: other - no bay Extremities: no cyanosis Skin: rash - rash stable and seems less, other - wounds covered 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, alert, motor weakness Lymphatic: no neck adenopathy Musculoskeletal: no effusion Objective hida - report noted Microbiology Date/Time Source Procedure Growth Status 04/20/16 05:00 Blood Blood Culture - Preliminary NO GROWTH AFTER 48 HOURS Resulted 04/19/16 19:00 Sacral Wound Gram Stain - Final Resulted 04/19/16 19:00 Wound Culture - Preliminary Escherichia Coli - Esbl Klebsiella Pneumoniae Morganella Morg Spp Morganii Resulted bc - negative x 3 Laboratory Tests Test 04/23/16 05:00 White Blood Count 6.3 K/UL (4.8-10.8) Red Blood Count 2.61 M/UL (4.20-5.40) L Hemoglobin 7.0 G/DL (12.0-16.0) L Hematocrit 22.4 % (37.0-47.0) L Mean Corpuscular Volume 86 FL (80-99) Mean Corpuscular Hemoglobin 26.8 PG (27.0-31.0) L Mean Corpuscular Hemoglobin Concent 31.2 G/DL (32.0-36.0) L Red Cell Distribution Width 15.5 % (11.6-14.8) H Platelet Count 350 K/UL (150-450) Mean Platelet Volume 7.4 FL (6.5-10.1) Neutrophils (%) (Auto) % (45.0-75.0) Lymphocytes (%) (Auto) % (20.0-45.0) Monocytes (%) (Auto) % (1.0-10.0) Eosinophils (%) (Auto) % (0.0-3.0) Basophils (%) (Auto) % (0.0-2.0) Differential Total Cells Counted 100 Neutrophils % (Manual) 59 % (45-75) Lymphocytes % (Manual) 27 % (20-45) Monocytes % (Manual) 9 % (1-10) Eosinophils % (Manual) 5 % (0-3) H Basophils % (Manual) 0 % (0-2) Band Neutrophils 0 % (0-8) Platelet Estimate Decreased L Platelet Morphology Normal Hypochromasia 3+ Anisocytosis 1+ Sodium Level 141 mEQ/L (135-145) Potassium Level 3.3 mEQ/L (3.4-4.9) L Chloride Level 106 mEQ/L (98-107) Carbon Dioxide Level 24 mEQ/L (20-30) Anion Gap 11 (5-15) Blood Urea Nitrogen 6 mg/dL (7-23) L Creatinine 0.6 mg/dL (0.5-0.9) Estimat Glomerular Filtration Rate > 60 mL/min (>60) Glucose Level 78 mg/dL (74-106) Calcium Level 6.5 mg/dL (8.6-10.2) L Current Medications Medications (Trade) Dose Ordered Sig/Pineda Route PRN Reason Start Time Stop Time Status Last Admin Dose Admin Acetaminophen (Tylenol) 650 mg Q4H PRN ORAL Mild Pain/Temp > 100.5 04/19/16 17:15 05/19/16 17:14 Al Hydroxide/Mg Hydroxide (Mylanta) 30 ml EVERY 4 HOURS PRN ORAL Heartburn 04/19/16 17:15 05/19/16 17:14 Dextrose (Dextrose 50%) STAT PRN IV Hypoglycemia 04/19/16 17:15 05/19/16 17:14 Diphenhydramine HCl (Benadryl) 25 mg Q3HR PRN IVP Itching 04/19/16 19:45 05/19/16 19:44 04/23/16 09:15 Dronabinol (Marinol) 2.5 mg BID ORAL 04/20/16 09:00 05/20/16 08:59 04/21/16 08:48 Heparin Sodium (Porcine) (Heparin 5000 units/ml) 5,000 units EVERY 12 HOURS SUBQ 04/19/16 21:00 05/19/16 20:59 04/22/16 21:58 Hydrocortisone (Hydrocortisone) 1 applic Q6H PRN TOPIC Itching 04/23/16 11:30 05/23/16 11:29 Hydromorphone HCl 2 mg 2 mg Q3H PRN IVP Severe Pain (Pain Scale 7-10) 04/19/16 17:15 04/26/16 17:14 04/23/16 09:15 Magnesium Hydroxide (Mom) 30 ml DAILYPRN PRN ORAL Constipation 04/19/16 17:15 05/19/16 17:14 Mirtazapine (Remeron) 15 mg BEDTIME ORAL 04/20/16 21:00 05/20/16 20:59 04/20/16 21:27 Ondansetron HCl (Zofran) 4 mg Q6H PRN IVP Nausea & Vomiting 04/19/16 17:15 05/19/16 17:14 04/21/16 17:20 Pantoprazole (Protonix) 40 mg DAILY ORAL 04/20/16 09:00 05/20/16 08:59 04/23/16 09:14 Sodium Hypochlorite 1 applic 1 applic Q24H TOPIC 04/21/16 00:00 05/21/16 00:00 04/23/16 00:00 Sodium Chloride (Sodium Chloride 1000ml bag) 1,000 ml @ 100 mls/hr Q10H IV 04/19/16 18:00 05/19/16 17:59 04/23/16 00:55 Tigecycline/ Dextrose (Tygacil/D5W 100ml) 100 ml @ 200 mls/hr EVERY 12 HOURS IVPB 04/20/16 22:00 04/27/16 21:59 04/23/16 09:15 Topiramate (Topamax) 25 mg EVERY 12 HOURS ORAL 04/21/16 13:00 05/21/16 12:59 04/23/16 09:14 Zolpidem Tartrate (Ambien) 5 mg HSPRN PRN ORAL Insomnia 04/19/16 17:15 05/19/16 17:14 GRZEGORZ MARTINEZ Apr 23, 2016 14:52
[2016-04-23] MEDS ORDERED: Amikacin Rx to dose MISC PRN (15:00)
[2016-04-23] MEDS: AMIKACIN IV SCH (21:48)
[2016-04-23] MEDS: NS IV SCH (21:48)
[2016-04-23] MEDS: Dakin's 0.125% Soln (Quarter Strength) 16oz TOPIC SCH ×2 (21:51)
[2016-04-23] MEDS: metroNIDAZOLE 500mg tab ORAL SCH (22:00)
--- NOTE | 2016-04-23 22:02 | General Progress Note ---
Assessment/Plan Assessment/Plan Assessment - N/V, ? due to chronic cholecystitis - weight loss - abd pain - cholelithiasis - negative EGD/Colon 11/2105 - multiple decubs Recommendations - await surgical work up - trial of Marinol and Remeron - OOB Subjective Allergies: Coded Allergies: CEFTRIAXONE (Verified Allergy, Intermediate, SOB, HR-140bpm, face swollen , pt became red, 10/24/15) CODEINE (Verified Allergy, Intermediate, SWELLING, 01/03/11) LATEX (Verified Allergy, Intermediate, SWELLING, 01/03/11) PIPERACILLIN (Verified Allergy, Intermediate, Itching, 08/29/15) 08/29/15 tolerates Ceftaroline TAZOBACTAM (Verified Allergy, Intermediate, Itching, 01/29/15) POLYMYXIN B (Verified Allergy, Mild, Rash, 04/08/16) Suspected allergy reported by VANCOMYCIN (Verified Allergy, Mild, 07/15/14) ASPARAGINASE (Verified Allergy, Unknown, 01/28/14) CEFUROXIME (Unverified Allergy, Unknown, 04/19/16) IRON (Verified Allergy, Unknown, 01/28/14) Subjective Feels OK still with periodic emesis advised may need cholecystectomy surgical consult noted Objective Last 24 Hour Vital Signs Date Time Temp Pulse Resp B/P Pulse Ox O2 Delivery O2 Flow Rate FiO2 04/23/16 20:00 97.9 85 22 121/74 98 Room Air 04/23/16 16:00 97.7 85 22 122/68 100 Room Air 04/23/16 15:17 98.4 04/23/16 12:00 98.4 94 118/74 04/23/16 08:00 98.2 92 20 116/72 96 Room Air 04/23/16 04:39 98.1 99 19 110/67 96 Room Air 04/23/16 00:00 98.1 109 20 102/56 97 Room Air Intake and Output 04/22/16 04/23/16 19:00 07:00 Intake Total 1450 ml 1120 ml Balance 1450 ml 1120 ml Intake Oral 350 ml 120 ml IV Total 1100 ml 1000 ml # Voids 2 3 # Bowel Movements 1 Laboratory Tests 04/23/16 05:00: White Blood Count 6.3, Red Blood Count 2.61L, Hemoglobin 7.0L, Hematocrit 22.4L , Mean Corpuscular Volume 86, Mean Corpuscular Hemoglobin 26.8L, Mean Corpuscular Hemoglobin Concent 31.2L, Red Cell Distribution Width 15.5H, Platelet Count 350, Mean Platelet Volume 7.4, Neutrophils (%) (Auto) , Lymphocytes (%) (Auto) , Monocytes (%) (Auto) , Eosinophils (%) (Auto) , Basophils (%) (Auto) , Differential Total Cells Counted 100, Neutrophils % ( Manual) 59, Lymphocytes % (Manual) 27, Monocytes % (Manual) 9, Eosinophils % ( Manual) 5H, Basophils % (Manual) 0, Band Neutrophils 0, Platelet Estimate DecreasedL, Platelet Morphology Normal, Hypochromasia 3+, Anisocytosis 1+, Sodium Level 141, Potassium Level 3.3L, Chloride Level 106, Carbon Dioxide Level 24, Anion Gap 11, Blood Urea Nitrogen 6L, Creatinine 0.6, Estimat Glomerular Filtration Rate > 60, Glucose Level 78, Calcium Level 6.5L Height (Feet): 5 Height (Inches): 5.00 Weight (Pounds): 210 Objective WDWN NCAT supple CTA RRR Soft ND NT, (+) colostomy (+) contracted PITER DEAN Apr 23, 2016 22:02
[2016-04-24 04:00] VITALS: BP 100/57
[2016-04-24] MEDS: metroNIDAZOLE 500mg tab ORAL SCH ×3 (05:23→21:43)
[2016-04-24] MEDS: DiphenhydrAMINE 50mg/ml Inj IVP PRN ×4 (05:23→19:17)
[2016-04-24 08:00] VITALS: BP 106/63
--- NOTE | 2016-04-24 08:12 | General Progress Note ---
Progress Note Progress Note pt seen for abdominal pain. Hx of paraplegia for many years, has had diverting colostomy for control of fecal contamination of perineal area. known cholelithiasis from previous CT and US studies, Had HIDA this admission that did show gallbladder but had delayed emptying c/w biliary diskinesia. She is pending abd US to see if there are any corroborating signs of acute cholecystitis ( wall thickening, pericholecystic fluid, impacted stone,etc.) that would tip the scales toward recommending laparoscopic cholecystectomy. She is also asking if the colostomy can be reversed. While tecnically it probably can, the question is whether it should be reversed., as it was performed to divert the fecal stream to allow healing of perineal/perianal breakdown. reversal would expose her to the same problem will discuss with rest of team. DUSTY LOCK Apr 24, 2016 08:12
[2016-04-24] MEDS: Topiramate 25mg tab ORAL SCH ×2 (08:42→20:29)
[2016-04-24] MEDS: Heparin 5000 units/ml inj SUBQ SCH ×2 (08:52→20:34)
--- NOTE | 2016-04-24 09:28 | General Progress Note ---
Assessment/Plan Assessment/Plan IMPRESSION: 1. Intractable nausea and vomiting. 2. Intractable pain. 3. Recent hip wound infection. 4. Paraplegia. 5. Anemia. 6. History of transfusion. 7. History of acute renal failure and dehydration. 8. Protein-calorie malnutrition. 9. memory loss PLAN follow up CBC monitor for change IV antibiotics noted ID follow up noted culture follow up reviewed GS noted pain control close follow up guarded monitor for change and recommend impression, plan, and exam edited and reviewed in detail care discussed with RN Subjective Allergies: Coded Allergies: CEFTRIAXONE (Verified Allergy, Intermediate, SOB, HR-140bpm, face swollen , pt became red, 10/24/15) CODEINE (Verified Allergy, Intermediate, SWELLING, 01/03/11) LATEX (Verified Allergy, Intermediate, SWELLING, 01/03/11) PIPERACILLIN (Verified Allergy, Intermediate, Itching, 08/29/15) 08/29/15 tolerates Ceftaroline TAZOBACTAM (Verified Allergy, Intermediate, Itching, 01/29/15) POLYMYXIN B (Verified Allergy, Mild, Rash, 04/08/16) Suspected allergy reported by VANCOMYCIN (Verified Allergy, Mild, 07/15/14) ASPARAGINASE (Verified Allergy, Unknown, 01/28/14) CEFUROXIME (Unverified Allergy, Unknown, 04/19/16) IRON (Verified Allergy, Unknown, 01/28/14) Subjective all findings reviewed surgery appreciated all appreciated Objective Last 24 Hour Vital Signs Date Time Temp Pulse Resp B/P Pulse Ox O2 Delivery O2 Flow Rate FiO2 04/24/16 08:00 97.3 68 18 106/63 97 Room Air 04/24/16 04:00 97.7 81 20 100/57 98 Room Air 04/23/16 23:50 98.2 77 19 97/53 99 Room Air 04/23/16 22:19 98.2 04/23/16 20:00 97.9 85 22 121/74 98 Room Air 04/23/16 16:00 97.7 85 22 122/68 100 Room Air 04/23/16 12:00 98.4 94 118/74 Intake and Output 04/23/16 04/24/16 19:00 07:00 Intake Total 590 ml 1666 ml Output Total 500 ml Balance 590 ml 1166 ml Intake Oral 240 ml 600 ml IV Total 1066 ml Blood Product 350 ml Output Stool Total 500 ml # Voids 2 2 # Bowel Movements 1 Laboratory Tests 04/24/16 05:30: Random Amikacin Level 21.6 Height (Feet): 5 Height (Inches): 5.00 Weight (Pounds): 210 Objective GENERAL: The patient is a well-developed female, NAD; weak confused HEENT: Fairly negative. Extraocular movements are grossly intact. Oropharynx is otherwise moist. LUNGS: Fairly clear. No rhonchi or wheezes. CARDIAC: S1 and S2. RRR without murmurs or rubs. ABDOMEN: Soft, nontender, and nondistended. EXTREMITIES: No cyanosis or clubbing. Minimal edema. NEUROLOGICAL: Paraplegia. alert and oriented x 2 some confusion and LOC reviewed and edited LUANN MICHEL Apr 24, 2016 09:28
[2016-04-24] MEDS: Dronabinol 2.5mg Cap ORAL SCH ×2 (09:50→18:53)
[2016-04-24 11:40] VITALS: BP 101/64
--- NOTE | 2016-04-24 11:54 | Diagnostic Imaging Report ---
Indications: Abdominal pain Technique: Transabdominal real-time grayscale and duplex Doppler imaging of the upper abdomen and retroperitoneum was performed. Findings: Comparison: 11/27/2015. Liver greater than 19 cm in length, normal surface contour, diffusely increased parenchymal echogenicity. No focal lesions. Gallbladder contains multiple small echogenic shadowing foci. No mural thickening or adjacent fluid collections. Sonographic Watkins sign reported as negative.. Bile ducts normal caliber. Common bile duct 7 mm. Pancreas visualized portions unremarkable. Spleen unremarkable. Right kidney unremarkable. Left kidney unremarkable. Proximal and mid abdominal aorta, intrahepatic portion of inferior vena cava patent, normal caliber. Distal abdominal aorta obscured. Duplex Doppler imaging demonstrates antegrade flow in splenic, portal, hepatic veins. No ascites. IMPRESSION: Cholelithiasis. No evidence of acute cholecystitis. Hepatomegaly with steatosis Remainder of exam unremarkable.
[2016-04-24] MEDS: Dakin's 0.125% Soln (Quarter Strength) 16oz TOPIC SCH (15:00)
[2016-04-24 16:00] VITALS: BP 103/70
[2016-04-24] MEDS: NS IV SCH (16:25)
[2016-04-24] MEDS: AMIKACIN IV SCH (16:25)
--- NOTE | 2016-04-24 16:28 | General Progress Note ---
Assessment/Plan Assessment/Plan Assessment - N/V, ? due to chronic cholecystitis - weight loss - abd pain - cholelithiasis - negative EGD/Colon 11/2105 - multiple decubs Recommendations - await surgical plans - trial of Marinol and Remeron - OOB Subjective Allergies: Coded Allergies: CEFTRIAXONE (Verified Allergy, Intermediate, SOB, HR-140bpm, face swollen , pt became red, 10/24/15) CODEINE (Verified Allergy, Intermediate, SWELLING, 01/03/11) LATEX (Verified Allergy, Intermediate, SWELLING, 01/03/11) PIPERACILLIN (Verified Allergy, Intermediate, Itching, 08/29/15) 08/29/15 tolerates Ceftaroline TAZOBACTAM (Verified Allergy, Intermediate, Itching, 01/29/15) POLYMYXIN B (Verified Allergy, Mild, Rash, 04/08/16) Suspected allergy reported by VANCOMYCIN (Verified Allergy, Mild, 07/15/14) ASPARAGINASE (Verified Allergy, Unknown, 01/28/14) CEFUROXIME (Unverified Allergy, Unknown, 04/19/16) IRON (Verified Allergy, Unknown, 01/28/14) Subjective Feels OK still with periodic emesis but poor PO surgical consult noted Objective Last 24 Hour Vital Signs Date Time Temp Pulse Resp B/P Pulse Ox O2 Delivery O2 Flow Rate FiO2 04/24/16 11:40 97.3 80 18 101/64 97 Room Air 04/24/16 08:00 97.3 68 18 106/63 97 Room Air 04/24/16 04:00 97.7 81 20 100/57 98 Room Air 04/23/16 23:50 98.2 77 19 97/53 99 Room Air 04/23/16 22:19 98.2 04/23/16 20:00 97.9 85 22 121/74 98 Room Air Intake and Output 04/23/16 04/24/16 19:00 07:00 Intake Total 590 ml 1666 ml Output Total 500 ml Balance 590 ml 1166 ml Intake Oral 240 ml 600 ml IV Total 1066 ml Blood Product 350 ml Output Stool Total 500 ml # Voids 2 2 # Bowel Movements 1 Laboratory Tests 04/24/16 05:30: Random Amikacin Level 21.6 Height (Feet): 5 Height (Inches): 5.00 Weight (Pounds): 210 Objective WDWN NCAT supple CTA RRR Soft ND NT, (+) colostomy (+) contracted PITER DEAN Apr 24, 2016 16:28
--- NOTE | 2016-04-24 18:31 | Infectious Diseases Prog Note ---
Assessment/Plan Assessment/Plan ASSESSMENT AND PLAN: 1. 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 acinetobacter bacteremia, f/u blood cultures negative, s/p full tygacil course 3. nausea and vomiting - improved, gi w/u, gs on us 4. Weight loss, anemia, hx lois resolved 5. History of osteoarthritis and treatment. 6. Colostomy. 7. Paraplegia. 8. Anemia. 9. ? diabetes - patient denies dm hx, bs elevated only with infection per pt 10. Chronic pain management and chronic pain syndrome, anxiety 11. History of cholelithiasis. 12. Pain management for primary, opiate dependency 13. Multiple allergies to asparaginase, Rocephin, codeine, iron, Latex, piperacillin, tazobactam, and vancomycin. 14. wound care per protocol and plastic surgery 15. The case was discussed with RN 16. The case was discussed with the patient. 17. fh-nc, sh-negative, mar noted 18. notes and records reviewed Subjective Constitutional: Denies: fever HEENT: Denies: congestion Respiratory: Denies: shortness of breath Cardiovascular: Denies: chest pain Gastrointestinal/Abdominal: Reports: other - + colostomy, Denies: nausea, vomiting Neurologic: Denies: headache Psychiatric: Denies: depression Skin: Reports: other - less itching Allergies: Coded Allergies: CEFTRIAXONE (Verified Allergy, Intermediate, SOB, HR-140bpm, face swollen , pt became red, 10/24/15) CODEINE (Verified Allergy, Intermediate, SWELLING, 01/03/11) LATEX (Verified Allergy, Intermediate, SWELLING, 01/03/11) PIPERACILLIN (Verified Allergy, Intermediate, Itching, 08/29/15) 08/29/15 tolerates Ceftaroline TAZOBACTAM (Verified Allergy, Intermediate, Itching, 01/29/15) POLYMYXIN B (Verified Allergy, Mild, Rash, 04/08/16) Suspected allergy reported by VANCOMYCIN (Verified Allergy, Mild, 07/15/14) ASPARAGINASE (Verified Allergy, Unknown, 01/28/14) CEFUROXIME (Unverified Allergy, Unknown, 04/19/16) IRON (Verified Allergy, Unknown, 01/28/14) Objective Vital Signs Last 24 Hour Vital Signs Date Time Temp Pulse Resp B/P Pulse Ox O2 Delivery O2 Flow Rate FiO2 04/24/16 16:00 97.0 84 20 103/70 100 Room Air 04/24/16 11:40 97.3 80 18 101/64 97 Room Air 04/24/16 08:00 97.3 68 18 106/63 97 Room Air 04/24/16 04:00 97.7 81 20 100/57 98 Room Air 04/23/16 23:50 98.2 77 19 97/53 99 Room Air 04/23/16 22:19 98.2 04/23/16 20:00 97.9 85 22 121/74 98 Room Air Height (Feet): 5 Height (Inches): 5.00 Weight (Pounds): 210 General Appearance: no acute distress HEENT: normocephalic, atraumatic, anicteric, mucous membranes moist, PERRL, EOMI, pharynx normal, supple, no JVD Respiratory/Chest: lungs clear, normal breath sounds, no accessory muscle use Cardiovascular: normal rate, regular rhythm, no gallop/murmur Abdomen: normal bowel sounds, soft, non tender, no organomegaly Genitourinary: other - no bay Extremities: no cyanosis Skin: rash - less, other - wounds covered 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: 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, alert, oriented x 3, responsive, motor weakness Lymphatic: no neck adenopathy Musculoskeletal: no effusion Objective hida - report noted Microbiology Date/Time Source Procedure Growth Status 04/20/16 05:00 Blood Blood Culture - Preliminary NO GROWTH AFTER 72 HOURS Resulted 04/19/16 19:00 Sacral Wound Gram Stain - Final Complete 04/19/16 19:00 Wound Culture - Final Escherichia Coli - Esbl Klebsiella Pneumoniae Morganella Morg Spp Morganii Complete Labs Test 04/23/16 05:00 04/24/16 05:30 White Blood Count 6.3 K/UL (4.8-10.8) Red Blood Count 2.61 M/UL (4.20-5.40) Hemoglobin 7.0 G/DL (12.0-16.0) Hematocrit 22.4 % (37.0-47.0) Mean Corpuscular Volume 86 FL (80-99) Mean Corpuscular Hemoglobin 26.8 PG (27.0-31.0) Mean Corpuscular Hemoglobin Concent 31.2 G/DL (32.0-36.0) Red Cell Distribution Width 15.5 % (11.6-14.8) Platelet Count 350 K/UL (150-450) Mean Platelet Volume 7.4 FL (6.5-10.1) Neutrophils (%) (Auto) % (45.0-75.0) Lymphocytes (%) (Auto) % (20.0-45.0) Monocytes (%) (Auto) % (1.0-10.0) Eosinophils (%) (Auto) % (0.0-3.0) Basophils (%) (Auto) % (0.0-2.0) Differential Total Cells Counted 100 Neutrophils % (Manual) 59 % (45-75) Lymphocytes % (Manual) 27 % (20-45) Monocytes % (Manual) 9 % (1-10) Eosinophils % (Manual) 5 % (0-3) Basophils % (Manual) 0 % (0-2) Band Neutrophils 0 % (0-8) Platelet Estimate Decreased Platelet Morphology Normal Hypochromasia 3+ Anisocytosis 1+ Sodium Level 141 mEQ/L (135-145) Potassium Level 3.3 mEQ/L (3.4-4.9) Chloride Level 106 mEQ/L (98-107) Carbon Dioxide Level 24 mEQ/L (20-30) Anion Gap 11 (5-15) Blood Urea Nitrogen 6 mg/dL (7-23) Creatinine 0.6 mg/dL (0.5-0.9) Estimat Glomerular Filtration Rate > 60 mL/min (>60) Glucose Level 78 mg/dL (74-106) Calcium Level 6.5 mg/dL (8.6-10.2) Random Amikacin Level 21.6 ug/mL Laboratory Tests Test 04/24/16 05:30 Random Amikacin Level 21.6 ug/mL Current Medications Medications (Trade) Dose Ordered Sig/Pineda Route PRN Reason Start Time Stop Time Status Last Admin Dose Admin Acetaminophen (Tylenol) 650 mg Q4H PRN ORAL Mild Pain/Temp > 100.5 04/19/16 17:15 05/19/16 17:14 Al Hydroxide/Mg Hydroxide (Mylanta) 30 ml EVERY 4 HOURS PRN ORAL Heartburn 04/19/16 17:15 05/19/16 17:14 Amikacin Protocol 1 ea 1 ea DAILY PRN MISC Per rx protocol 04/23/16 15:00 05/23/16 14:59 Amikacin Sulfate/ Sodium Chloride (Amikin/Sodium Chloride 100ml bag) 166 ml @ 166 mls/hr Q36H IV 04/26/16 04:00 05/03/16 03:59 Dextrose (Dextrose 50%) STAT PRN IV Hypoglycemia 04/19/16 17:15 05/19/16 17:14 Diphenhydramine HCl (Benadryl) 25 mg Q3HR PRN IVP Itching 04/19/16 19:45 05/19/16 19:44 04/24/16 14:58 Dronabinol (Marinol) 2.5 mg BID ORAL 04/20/16 09:00 05/20/16 08:59 04/24/16 09:50 Heparin Sodium (Porcine) (Heparin 5000 units/ml) 5,000 units EVERY 12 HOURS SUBQ 04/19/16 21:00 05/19/16 20:59 04/22/16 21:58 Hydrocortisone (Hydrocortisone) 1 applic Q6H PRN TOPIC Itching 04/23/16 11:30 05/23/16 11:29 04/23/16 21:58 Hydromorphone HCl 2 mg 2 mg Q3H PRN IVP Severe Pain (Pain Scale 7-10) 04/19/16 17:15 04/26/16 17:14 04/24/16 14:58 Linezolid (Zyvox) 300 ml @ 300 mls/hr EVERY 12 HOURS IVPB 04/23/16 21:00 04/30/16 20:59 04/24/16 09:50 Magnesium Hydroxide (Mom) 30 ml DAILYPRN PRN ORAL Constipation 04/19/16 17:15 05/19/16 17:14 Metronidazole 500 mg 500 mg EVERY 8 HOURS ORAL 04/23/16 22:00 04/30/16 21:59 04/24/16 14:58 Mirtazapine (Remeron) 15 mg BEDTIME ORAL 04/20/16 21:00 05/20/16 20:59 04/20/16 21:27 Ondansetron HCl (Zofran) 4 mg Q6H PRN IVP Nausea & Vomiting 04/19/16 17:15 05/19/16 17:14 04/21/16 17:20 Pantoprazole (Protonix) 40 mg DAILY ORAL 04/20/16 09:00 05/20/16 08:59 04/24/16 08:42 Sodium Hypochlorite (Dakin's Quarter Strength) 1 applic Q24H TOPIC 04/21/16 00:00 05/21/16 00:00 04/24/16 15:00 Sodium Chloride (Sodium Chloride 1000ml bag) 1,000 ml @ 100 mls/hr Q10H IV 04/19/16 18:00 05/19/16 17:59 04/24/16 08:43 Topiramate (Topamax) 25 mg EVERY 12 HOURS ORAL 04/21/16 13:00 05/21/16 12:59 04/24/16 08:42 Zolpidem Tartrate (Ambien) 5 mg HSPRN PRN ORAL Insomnia 04/19/16 17:15 05/19/16 17:14 GRZEGORZ MARTINEZ Apr 24, 2016 18:31
[2016-04-24 20:00] VITALS: BP 107/66
[2016-04-25] VITALS: BP 129/72
[2016-04-25 04:00] VITALS: BP 128/74
[2016-04-25] MEDS: DiphenhydrAMINE 50mg/ml Inj IVP PRN ×5 (06:13→22:00)
[2016-04-25] MEDS: metroNIDAZOLE 500mg tab ORAL SCH ×3 (06:21→21:59)
[2016-04-25 07:40] LABS: BASOPHILS % (AUTO) 0.5 % (0.0-2.0); EOSINOPHILS % (AUTO) 8.6 % (0.0-3.0); LYMPHOCYTES % (AUTO) 34.4 % (20.0-45.0); MEAN CORPUSCULAR HEMOGLOBIN 27.4 PG (27.0-31.0); MEAN CORPUSCULAR VOLUME 85 FL (80-99); MEAN PLATELET VOLUME 7.8 FL (6.5-10.1); MONOCYTES % (AUTO) 10.2 % (1.0-10.0); NEUTROPHILS % (AUTO) 46.3 % (45.0-75.0); PLATELET COUNT 301 K/UL (150-450); RED BLOOD COUNT 3.81 M/UL (4.20-5.40); RED CELL DISTRIBUTION WIDTH 15.7 % (11.6-14.8)
[2016-04-25 07:49] LABS: ANION GAP 13 (5-15); CALCIUM 6.7 mg/dL (8.6-10.2); CARBON DIOXIDE 23 mEQ/L (20-30); CHLORIDE 102 mEQ/L (98-107); CREATININE 0.9 mg/dL (0.5-0.9); GLOMERULAR FILTRATION RATE > 60 mL/min (>60); HEMOLYSIS 6; POTASSIUM 3.2 mEQ/L (3.4-4.9); SODIUM 138 mEQ/L (135-145)
[2016-04-25 08:00] VITALS: BP 103/63
--- NOTE | 2016-04-25 08:49 | General Progress Note ---
Progress Note Progress Note Pt with paraplegia, hx of nausea. significant weight loss for unknown reason. She has had normal lfts, no leukocytosis. A HIDA scan did show delayed emptying consistent with biliary dyskinesia. However, US of abdomen yesterday did show gallstones but no impacted stone, wall thickening, pericholecystic fluid, or ductal dilatation. With nothing more than possible biliary dyskinesia, and nothing else to substantiate it I am reluctant to reccommend laparoscopic cholecystectomy at this point. discussed at length with the patient. also discussecd with DUSTY Douglas Apr 25, 2016 08:49
--- NOTE | 2016-04-25 08:55 | General Progress Note ---
Assessment/Plan Assessment/Plan IMPRESSION: 1. Intractable nausea and vomiting. 2. Intractable pain. 3. Recent hip wound infection. 4. Paraplegia. 5. Anemia. 6. History of transfusion. 7. History of acute renal failure and dehydration. 8. Protein-calorie malnutrition. 9. memory loss 10. gallstones PLAN follow up CBC improved K replacement monitor for change IV antibiotics noted ID follow up noted culture follow up reviewed pain control close follow up guarded monitor for change and recommend hope to proceed with dc soon; d/w ID impression, plan, and exam edited and reviewed in detail care discussed with RN Subjective Allergies: Coded Allergies: CEFTRIAXONE (Verified Allergy, Intermediate, SOB, HR-140bpm, face swollen , pt became red, 10/24/15) CODEINE (Verified Allergy, Intermediate, SWELLING, 01/03/11) LATEX (Verified Allergy, Intermediate, SWELLING, 01/03/11) PIPERACILLIN (Verified Allergy, Intermediate, Itching, 08/29/15) 08/29/15 tolerates Ceftaroline TAZOBACTAM (Verified Allergy, Intermediate, Itching, 01/29/15) POLYMYXIN B (Verified Allergy, Mild, Rash, 04/08/16) Suspected allergy reported by VANCOMYCIN (Verified Allergy, Mild, 07/15/14) ASPARAGINASE (Verified Allergy, Unknown, 01/28/14) CEFUROXIME (Unverified Allergy, Unknown, 04/19/16) IRON (Verified Allergy, Unknown, 01/28/14) Subjective surgery appreciated no plans for chang Objective Last 24 Hour Vital Signs Date Time Temp Pulse Resp B/P Pulse Ox O2 Delivery O2 Flow Rate FiO2 04/25/16 04:00 97.7 91 22 128/74 98 Room Air 04/25/16 00:00 97.9 88 20 129/72 97 Room Air 04/24/16 20:00 97.9 91 20 107/66 100 Room Air 04/24/16 16:00 97.0 84 20 103/70 100 Room Air 04/24/16 11:40 97.3 80 18 101/64 97 Room Air Intake and Output 04/24/16 04/25/16 19:00 07:00 Intake Total 800 ml 920 ml Output Total 375 ml Balance 800 ml 545 ml Intake Oral 600 ml 120 ml IV Total 200 ml 800 ml Output Stool Total 375 ml # Voids 1 2 Laboratory Tests 04/25/16 06:00: White Blood Count 8.0, Red Blood Count 3.81L, Hemoglobin 10.4L, Hematocrit 32.6L , Mean Corpuscular Volume 85, Mean Corpuscular Hemoglobin 27.4, Mean Corpuscular Hemoglobin Concent 32.0, Red Cell Distribution Width 15.7H, Platelet Count 301, Mean Platelet Volume 7.8, Neutrophils (%) (Auto) 46.3, Lymphocytes (%) (Auto) 34.4, Monocytes (%) (Auto) 10.2H, Eosinophils (%) (Auto) 8.6H, Basophils (%) (Auto) 0.5, Sodium Level 138, Potassium Level 3.2L, Chloride Level 102, Carbon Dioxide Level 23, Anion Gap 13, Blood Urea Nitrogen 7 , Creatinine 0.9, Estimat Glomerular Filtration Rate > 60, Glucose Level 102, Calcium Level 6.7L Height (Feet): 5 Height (Inches): 5.00 Weight (Pounds): 210 Objective GENERAL: The patient is a well-developed female, NAD; weak HEENT: Fairly negative. Extraocular movements are grossly intact. Oropharynx is otherwise moist. LUNGS: Fairly clear. No rhonchi or wheezes. good air entry CARDIAC: S1 and S2. RRR without murmurs or rubs. ABDOMEN: Soft, nontender, and nondistended. no HSM EXTREMITIES: No cyanosis or clubbing. Minimal edema. NEUROLOGICAL: Paraplegia. alert and oriented reviewed and edited LUANN MICHEL Apr 25, 2016 08:55
[2016-04-25] MEDS: Heparin 5000 units/ml inj SUBQ SCH ×2 (09:00→20:25)
[2016-04-25] MEDS: Topiramate 25mg tab ORAL SCH ×2 (09:00→20:26)
[2016-04-25] MEDS: Dronabinol 2.5mg Cap ORAL SCH ×2 (09:00→18:00)
--- NOTE | 2016-04-25 10:50 | General Progress Note ---
Assessment/Plan Assessment/Plan Assessment - N/V, ? due to chronic cholecystitis - weight loss - abd pain - cholelithiasis - negative EGD/Colon 11/2105 - multiple decubs Recommendations - no plans for surgery at this time, per Dr. Robledo - monitor LFT - trial of Marinol and Remeron - OOB Subjective Allergies: Coded Allergies: CEFTRIAXONE (Verified Allergy, Intermediate, SOB, HR-140bpm, face swollen , pt became red, 10/24/15) CODEINE (Verified Allergy, Intermediate, SWELLING, 01/03/11) LATEX (Verified Allergy, Intermediate, SWELLING, 01/03/11) PIPERACILLIN (Verified Allergy, Intermediate, Itching, 08/29/15) 08/29/15 tolerates Ceftaroline TAZOBACTAM (Verified Allergy, Intermediate, Itching, 01/29/15) POLYMYXIN B (Verified Allergy, Mild, Rash, 04/08/16) Suspected allergy reported by VANCOMYCIN (Verified Allergy, Mild, 07/15/14) ASPARAGINASE (Verified Allergy, Unknown, 01/28/14) CEFUROXIME (Unverified Allergy, Unknown, 04/19/16) IRON (Verified Allergy, Unknown, 01/28/14) Subjective Feels OK no vomiting in last 24 hours but poor PO surgical consult noted Objective Last 24 Hour Vital Signs Date Time Temp Pulse Resp B/P Pulse Ox O2 Delivery O2 Flow Rate FiO2 04/25/16 10:37 97.7 04/25/16 08:00 97.7 87 20 103/63 100 Room Air 04/25/16 04:00 97.7 91 22 128/74 98 Room Air 04/25/16 00:00 97.9 88 20 129/72 97 Room Air 04/24/16 20:00 97.9 91 20 107/66 100 Room Air 04/24/16 16:00 97.0 84 20 103/70 100 Room Air 04/24/16 11:40 97.3 80 18 101/64 97 Room Air Intake and Output 04/24/16 04/25/16 18:59 06:59 Intake Total 800 ml 920 ml Output Total 375 ml Balance 800 ml 545 ml Intake Oral 600 ml 120 ml IV Total 200 ml 800 ml Output Stool Total 375 ml # Voids 1 2 Laboratory Tests 04/25/16 06:00: White Blood Count 8.0, Red Blood Count 3.81L, Hemoglobin 10.4L, Hematocrit 32.6L , Mean Corpuscular Volume 85, Mean Corpuscular Hemoglobin 27.4, Mean Corpuscular Hemoglobin Concent 32.0, Red Cell Distribution Width 15.7H, Platelet Count 301, Mean Platelet Volume 7.8, Neutrophils (%) (Auto) 46.3, Lymphocytes (%) (Auto) 34.4, Monocytes (%) (Auto) 10.2H, Eosinophils (%) (Auto) 8.6H, Basophils (%) (Auto) 0.5, Sodium Level 138, Potassium Level 3.2L, Chloride Level 102, Carbon Dioxide Level 23, Anion Gap 13, Blood Urea Nitrogen 7 , Creatinine 0.9, Estimat Glomerular Filtration Rate > 60, Glucose Level 102, Calcium Level 6.7L Height (Feet): 5 Height (Inches): 5.00 Weight (Pounds): 210 Objective WDWN NCAT supple CTA RRR Soft ND NT, (+) colostomy (+) contracted PITER DEAN Apr 25, 2016 10:50
[2016-04-25 12:00] VITALS: BP 110/62
[2016-04-25 16:00] VITALS: BP 106/65
[2016-04-25 20:00] VITALS: BP 136/71
[2016-04-26] VITALS: BP 144/78
[2016-04-26] MEDS: Dakin's 0.125% Soln (Quarter Strength) 16oz TOPIC SCH
[2016-04-26] MEDS: DiphenhydrAMINE 50mg/ml Inj IVP PRN ×7 (01:01→22:24)
[2016-04-26 04:00] VITALS: BP 134/77
[2016-04-26] MEDS: NS IV SCH (04:03)
[2016-04-26] MEDS: AMIKACIN IV SCH (04:03)
[2016-04-26] MEDS: metroNIDAZOLE 500mg tab ORAL SCH ×3 (07:03→22:17)
[2016-04-26 08:00] VITALS: BP 121/83
[2016-04-26] MEDS: Dronabinol 2.5mg Cap ORAL SCH ×3 (08:30→17:31)
[2016-04-26] MEDS: Topiramate 25mg tab ORAL SCH ×2 (08:31→20:21)
[2016-04-26] MEDS: Heparin 5000 units/ml inj SUBQ SCH ×2 (08:48→20:21)
--- NOTE | 2016-04-26 09:02 | General Progress Note ---
Assessment/Plan Assessment/Plan IMPRESSION: 1. Intractable nausea and vomiting. 2. Intractable pain. 3. Recent hip wound infection. 4. Paraplegia. 5. Anemia. 6. History of transfusion. 7. History of acute renal failure and dehydration. 8. Protein-calorie malnutrition. 9. memory loss 10. gallstones PLAN monitor labs monitor for change IV antibiotics noted; need to taper prior to dc ID follow up noted culture follow up reviewed pain control close follow up guarded with multiple med issues monitor for change and recommend hope to proceed with dc soon; d/w ID impression, plan, and exam edited and reviewed in detail care discussed with RN Subjective Allergies: Coded Allergies: CEFTRIAXONE (Verified Allergy, Intermediate, SOB, HR-140bpm, face swollen , pt became red, 10/24/15) CODEINE (Verified Allergy, Intermediate, SWELLING, 01/03/11) LATEX (Verified Allergy, Intermediate, SWELLING, 01/03/11) PIPERACILLIN (Verified Allergy, Intermediate, Itching, 08/29/15) 08/29/15 tolerates Ceftaroline TAZOBACTAM (Verified Allergy, Intermediate, Itching, 01/29/15) POLYMYXIN B (Verified Allergy, Mild, Rash, 04/08/16) Suspected allergy reported by VANCOMYCIN (Verified Allergy, Mild, 07/15/14) ASPARAGINASE (Verified Allergy, Unknown, 01/28/14) CEFUROXIME (Unverified Allergy, Unknown, 04/19/16) IRON (Verified Allergy, Unknown, 01/28/14) Subjective stable over weekend orders noted Objective Last 24 Hour Vital Signs Date Time Temp Pulse Resp B/P Pulse Ox O2 Delivery O2 Flow Rate FiO2 04/26/16 08:00 97.3 92 21 121/83 100 Room Air 04/26/16 07:35 97.7 04/26/16 04:00 97.9 84 20 134/77 97 Room Air 04/26/16 00:00 97.7 99 22 144/78 99 Room Air 04/25/16 20:00 97.7 98 22 136/71 99 04/25/16 16:00 98.1 88 20 106/65 99 Room Air 04/25/16 12:00 98.4 98 20 110/62 99 Room Air Intake and Output 04/25/16 04/26/16 19:00 07:00 Intake Total 2043 ml 1406 ml Output Total 300 ml Balance 2043 ml 1106 ml Intake Oral 480 ml 240 ml IV Total 1563 ml 1166 ml Output Stool Total 300 ml # Voids 2 Height (Feet): 5 Height (Inches): 5.00 Weight (Pounds): 210 Objective GENERAL: The patient is a well-developed female, NAD; weak HEENT: Fairly negative. Extraocular movements are grossly intact. Oropharynx is otherwise moist. LUNGS: Fairly clear. No rhonchi or wheezes. good air entry CARDIAC: S1 and S2. RRR without murmurs or rubs. ABDOMEN: Soft, nontender, and nondistended. no HSM EXTREMITIES: No cyanosis or clubbing. Minimal edema. NEUROLOGICAL: Paraplegia. alert and oriented reviewed and edited LUANN MICHEL Apr 26, 2016 09:02
--- NOTE | 2016-04-26 10:57 | General Surgery Progress Note ---
General Surgery-Progress Note Subjective Reason for Consult biliary dyskinesia Symptoms: improved Additional Comments patient seen and examined at bedside. doing well. no complaints. Objective Last 24 Hour Vital Signs Date Time Temp Pulse Resp B/P Pulse Ox O2 Delivery O2 Flow Rate FiO2 04/26/16 08:00 97.3 92 21 121/83 100 Room Air 04/26/16 07:35 97.7 04/26/16 04:00 97.9 84 20 134/77 97 Room Air 04/26/16 00:00 97.7 99 22 144/78 99 Room Air 04/25/16 20:00 97.7 98 22 136/71 99 04/25/16 16:00 98.1 88 20 106/65 99 Room Air 04/25/16 12:00 98.4 98 20 110/62 99 Room Air I&O Intake and Output 04/25/16 04/26/16 19:00 07:00 Intake Total 2043 ml 1406 ml Output Total 300 ml Balance 2043 ml 1106 ml Intake Oral 480 ml 240 ml IV Total 1563 ml 1166 ml Output Stool Total 300 ml # Voids 2 Drains: none Cardiovascular: RSR Respiratory: clear Abdomen: soft, non-tender Extremities: no edema, no tenderness Plan Problems: (1) Abdominal pain Assessment & Plan: 40 year old female with abdominal pain, nausea, emesis. History of cholelithiasis. HIDA demonstrates biliary dyskinesia. Afebrile, HD stable, no leukocytosis, AST/ALT nml, lipase nml. Initial exam with RUQ tenderness on palpation but no tenderness today. Ultrasound performed and noted cholelithiasis but no signs of current or prior cholecystitis. given these findings would not currently recommend cholecystectomy. Can potentially have episodes of cholecystitis or gallstones may become symptomatic at later date but for now unlikely source of her pain. Thank you for this consultation and for allowing us to participate in Ananya Bermudez's care. Jax Allison MD Apr 26, 2016 10:57
--- NOTE | 2016-04-26 11:24 | Infectious Diseases Prog Note ---
Assessment/Plan Assessment/Plan ASSESSMENT AND PLAN: 1. 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 treat as osteo 2. acinetobacter bacteremia, f/u blood cultures negative, s/p full tygacil course 3. nausea and vomiting - improved, gi w/u, gs on us 4. Weight loss, anemia, hx lois resolved 5. History of osteoarthritis and treatment. 6. Colostomy. 7. Paraplegia. 8. Anemia. 9. ? diabetes - patient denies dm hx, bs elevated only with infection per pt 10. Chronic pain management and chronic pain syndrome, anxiety 11. History of cholelithiasis. 12. Pain management for primary, opiate dependency 13. Multiple allergies to asparaginase, Rocephin, codeine, iron, Latex, piperacillin, tazobactam, and vancomycin. 14. wound care per protocol and plastic surgery 15. The case was discussed with RN 16. The case was discussed with the patient. 17. fh-nc, sh-negative, mar noted 18. notes and records reviewed Subjective Constitutional: Denies: fever HEENT: Denies: congestion Respiratory: Denies: shortness of breath Cardiovascular: Denies: chest pain Gastrointestinal/Abdominal: Reports: other - + colostomy, Denies: nausea, vomiting Neurologic: Denies: headache Psychiatric: Denies: depression Skin: Reports: other - no itching Hematologic: Denies: bleeding Musculoskeletal: Denies: pain Allergies: Coded Allergies: CEFTRIAXONE (Verified Allergy, Intermediate, SOB, HR-140bpm, face swollen , pt became red, 10/24/15) CODEINE (Verified Allergy, Intermediate, SWELLING, 01/03/11) LATEX (Verified Allergy, Intermediate, SWELLING, 01/03/11) PIPERACILLIN (Verified Allergy, Intermediate, Itching, 08/29/15) 08/29/15 tolerates Ceftaroline TAZOBACTAM (Verified Allergy, Intermediate, Itching, 01/29/15) POLYMYXIN B (Verified Allergy, Mild, Rash, 04/08/16) Suspected allergy reported by VANCOMYCIN (Verified Allergy, Mild, 07/15/14) ASPARAGINASE (Verified Allergy, Unknown, 01/28/14) CEFUROXIME (Unverified Allergy, Unknown, 04/19/16) IRON (Verified Allergy, Unknown, 01/28/14) Objective Vital Signs Last 24 Hour Vital Signs Date Time Temp Pulse Resp B/P Pulse Ox O2 Delivery O2 Flow Rate FiO2 04/26/16 08:00 97.3 92 21 121/83 100 Room Air 04/26/16 07:35 97.7 04/26/16 04:00 97.9 84 20 134/77 97 Room Air 04/26/16 00:00 97.7 99 22 144/78 99 Room Air 04/25/16 20:00 97.7 98 22 136/71 99 04/25/16 16:00 98.1 88 20 106/65 99 Room Air 04/25/16 12:00 98.4 98 20 110/62 99 Room Air Height (Feet): 5 Height (Inches): 5.00 Weight (Pounds): 210 General Appearance: no acute distress HEENT: normocephalic, atraumatic, anicteric, mucous membranes moist, PERRL, EOMI, pharynx normal, supple, no JVD Respiratory/Chest: lungs clear, normal breath sounds, no respiratory distress Cardiovascular: normal rate, regular rhythm, no gallop/murmur Abdomen: normal bowel sounds, soft, non tender, no organomegaly, non distended Genitourinary: other - no bay Extremities: no cyanosis Skin: rash - rash resolving 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: med aide II-XII grossly normal, alert, oriented x 3, responsive, motor weakness Musculoskeletal: normal muscle bulk, no effusion Objective hida - report noted Microbiology Date/Time Source Procedure Growth Status 04/20/16 05:00 Blood Blood Culture - Final NO GROWTH AFTER 5 DAYS Complete 04/19/16 19:00 Sacral Wound Gram Stain - Final Complete 04/19/16 19:00 Wound Culture - Final Escherichia Coli - Esbl Klebsiella Pneumoniae Morganella Morg Spp Morganii Complete Labs Test 04/24/16 05:30 04/25/16 06:00 Random Amikacin Level 21.6 ug/mL White Blood Count 8.0 K/UL (4.8-10.8) Red Blood Count 3.81 M/UL (4.20-5.40) Hemoglobin 10.4 G/DL (12.0-16.0) Hematocrit 32.6 % (37.0-47.0) Mean Corpuscular Volume 85 FL (80-99) Mean Corpuscular Hemoglobin 27.4 PG (27.0-31.0) Mean Corpuscular Hemoglobin Concent 32.0 G/DL (32.0-36.0) Red Cell Distribution Width 15.7 % (11.6-14.8) Platelet Count 301 K/UL (150-450) Mean Platelet Volume 7.8 FL (6.5-10.1) Neutrophils (%) (Auto) 46.3 % (45.0-75.0) Lymphocytes (%) (Auto) 34.4 % (20.0-45.0) Monocytes (%) (Auto) 10.2 % (1.0-10.0) Eosinophils (%) (Auto) 8.6 % (0.0-3.0) Basophils (%) (Auto) 0.5 % (0.0-2.0) Sodium Level 138 mEQ/L (135-145) Potassium Level 3.2 mEQ/L (3.4-4.9) Chloride Level 102 mEQ/L (98-107) Carbon Dioxide Level 23 mEQ/L (20-30) Anion Gap 13 (5-15) Blood Urea Nitrogen 7 mg/dL (7-23) Creatinine 0.9 mg/dL (0.5-0.9) Estimat Glomerular Filtration Rate > 60 mL/min (>60) Glucose Level 102 mg/dL (74-106) Calcium Level 6.7 mg/dL (8.6-10.2) Current Medications Medications (Trade) Dose Ordered Sig/Pineda Route PRN Reason Start Time Stop Time Status Last Admin Dose Admin Acetaminophen (Tylenol) 650 mg Q4H PRN ORAL Mild Pain/Temp > 100.5 04/19/16 17:15 05/19/16 17:14 Al Hydroxide/Mg Hydroxide (Mylanta) 30 ml EVERY 4 HOURS PRN ORAL Heartburn 04/19/16 17:15 05/19/16 17:14 Amikacin Protocol 1 ea 1 ea DAILY PRN MISC Per rx protocol 04/23/16 15:00 05/23/16 14:59 Amikacin Sulfate/ Sodium Chloride (Amikin/Sodium Chloride 100ml bag) 166 ml @ 166 mls/hr Q36H IV 04/26/16 04:00 05/03/16 03:59 04/26/16 04:03 Dextrose (Dextrose 50%) STAT PRN IV Hypoglycemia 04/19/16 17:15 05/19/16 17:14 Diphenhydramine HCl (Benadryl) 25 mg Q3HR PRN IVP Itching 04/19/16 19:45 05/19/16 19:44 04/26/16 10:38 Dronabinol (Marinol) 2.5 mg BID ORAL 04/20/16 09:00 05/20/16 08:59 04/24/16 09:50 Heparin Sodium (Porcine) (Heparin 5000 units/ml) 5,000 units EVERY 12 HOURS SUBQ 04/19/16 21:00 05/19/16 20:59 04/25/16 20:25 Hydrocortisone (Hydrocortisone) 1 applic Q6H PRN TOPIC Itching 04/23/16 11:30 05/23/16 11:29 04/23/16 21:58 Hydromorphone HCl 2 mg 2 mg Q3H PRN IVP Severe Pain (Pain Scale 7-10) 04/19/16 17:15 04/26/16 17:14 04/26/16 10:38 Linezolid (Zyvox) 300 ml @ 300 mls/hr EVERY 12 HOURS IVPB 04/23/16 21:00 04/30/16 20:59 04/26/16 08:31 Magnesium Hydroxide (Mom) 30 ml DAILYPRN PRN ORAL Constipation 04/19/16 17:15 05/19/16 17:14 Metronidazole 500 mg 500 mg EVERY 8 HOURS ORAL 04/23/16 22:00 04/30/16 21:59 04/26/16 07:03 Mirtazapine (Remeron) 15 mg BEDTIME ORAL 04/20/16 21:00 05/20/16 20:59 04/20/16 21:27 Ondansetron HCl (Zofran) 4 mg Q6H PRN IVP Nausea & Vomiting 04/19/16 17:15 05/19/16 17:14 04/25/16 13:51 Pantoprazole (Protonix) 40 mg DAILY ORAL 04/20/16 09:00 05/20/16 08:59 1/16/17 08:31 Sodium Hypochlorite (Dakin's Quarter Strength) 1 applic Q24H TOPIC 04/21/16 00:00 05/21/16 00:00 04/24/16 15:00 Sodium Chloride (Sodium Chloride 1000ml bag) 1,000 ml @ 100 mls/hr Q10H IV 04/19/16 18:00 05/19/16 17:59 04/26/16 01:00 Topiramate (Topamax) 25 mg EVERY 12 HOURS ORAL 04/21/16 13:00 05/21/16 12:59 04/26/16 08:31 Zolpidem Tartrate (Ambien) 5 mg HSPRN PRN ORAL Insomnia 04/19/16 17:15 05/19/16 17:14 GRZEGORZ MARTINEZ Apr 26, 2016 11:24
[2016-04-26 12:00] VITALS: BP 136/84
[2016-04-26 16:00] VITALS: BP 134/79
[2016-04-26 20:00] VITALS: BP 139/83
--- NOTE | 2016-04-26 21:34 | General Progress Note ---
Assessment/Plan Assessment/Plan Assessment - N/V, ? due to chronic cholecystitis - weight loss - abd pain - cholelithiasis - negative EGD/Colon 11/2105 - multiple decubs Recommendations - no plans for surgery at this time - monitor LFT - check TSH - trial of Marinol and Remeron - OOB - d/c planning per PMD Subjective Allergies: Coded Allergies: CEFTRIAXONE (Verified Allergy, Intermediate, SOB, HR-140bpm, face swollen , pt became red, 10/24/15) CODEINE (Verified Allergy, Intermediate, SWELLING, 01/03/11) LATEX (Verified Allergy, Intermediate, SWELLING, 01/03/11) PIPERACILLIN (Verified Allergy, Intermediate, Itching, 08/29/15) 08/29/15 tolerates Ceftaroline TAZOBACTAM (Verified Allergy, Intermediate, Itching, 01/29/15) POLYMYXIN B (Verified Allergy, Mild, Rash, 04/08/16) Suspected allergy reported by VANCOMYCIN (Verified Allergy, Mild, 07/15/14) ASPARAGINASE (Verified Allergy, Unknown, 01/28/14) CEFUROXIME (Unverified Allergy, Unknown, 04/19/16) IRON (Verified Allergy, Unknown, 01/28/14) Subjective Feels OK no vomiting in last 24 hours but poor PO wants TFT checked Objective Last 24 Hour Vital Signs Date Time Temp Pulse Resp B/P Pulse Ox O2 Delivery O2 Flow Rate FiO2 04/26/16 16:00 98.2 106 18 134/79 99 Room Air 04/26/16 14:55 97.9 04/26/16 12:00 97.9 91 21 136/84 100 Room Air 04/26/16 08:00 97.3 92 21 121/83 100 Room Air 04/26/16 04:00 97.9 84 20 134/77 97 Room Air 04/26/16 00:00 97.7 99 22 144/78 99 Room Air Intake and Output 04/25/16 04/26/16 19:00 07:00 Intake Total 2043 ml 1406 ml Output Total 300 ml Balance 2043 ml 1106 ml Intake Oral 480 ml 240 ml IV Total 1563 ml 1166 ml Output Stool Total 300 ml # Voids 2 Height (Feet): 5 Height (Inches): 5.00 Weight (Pounds): 210 Objective WDWN NCAT supple CTA RRR Soft ND NT, (+) colostomy (+) contracted PITER DEAN Apr 26, 2016 21:34
[2016-04-27 00:31] VITALS: BP 137/87
[2016-04-27] MEDS: DiphenhydrAMINE 50mg/ml Inj IVP PRN ×7 (01:25→22:55)
[2016-04-27] MEDS: Dakin's 0.125% Soln (Quarter Strength) 16oz TOPIC SCH (04:26)
[2016-04-27 04:30] VITALS: BP 118/68
[2016-04-27] MEDS: metroNIDAZOLE 500mg tab ORAL SCH ×3 (05:34→22:14)
[2016-04-27 06:31] LABS: BASOPHILS % (AUTO) 0.5 % (0.0-2.0); EOSINOPHILS % (AUTO) 6.5 % (0.0-3.0); LYMPHOCYTES % (AUTO) 36.3 % (20.0-45.0); MEAN CORPUSCULAR HEMOGLOBIN 27.9 PG (27.0-31.0); MEAN CORPUSCULAR HGB CONC 32.8 G/DL (32.0-36.0); MEAN CORPUSCULAR VOLUME 85 FL (80-99); MONOCYTES % (AUTO) 7.2 % (1.0-10.0); NEUTROPHILS % (AUTO) 49.7 % (45.0-75.0); PLATELET COUNT 289 K/UL (150-450); RED BLOOD COUNT 3.63 M/UL (4.20-5.40); RED CELL DISTRIBUTION WIDTH 16.3 % (11.6-14.8); WHITE BLOOD COUNT 9.3 K/UL (4.8-10.8)
[2016-04-27 06:53] LABS: ANION GAP 14 (5-15); CALCIUM 6.9 mg/dL (8.6-10.2); CARBON DIOXIDE 23 mEQ/L (20-30); CHLORIDE 101 mEQ/L (98-107); CREATININE 0.8 mg/dL (0.5-0.9); GLOMERULAR FILTRATION RATE > 60 mL/min (>60); HEMOLYSIS 5; POTASSIUM 3.3 mEQ/L (3.4-4.9); SODIUM 138 mEQ/L (135-145)
[2016-04-27] MEDS: Topiramate 25mg tab ORAL SCH ×3 (08:50→21:00)
[2016-04-27] MEDS: Heparin 5000 units/ml inj SUBQ SCH ×2 (08:57→22:19)
[2016-04-27] MEDS: Dronabinol 2.5mg Cap ORAL SCH ×2 (08:58→18:00)
--- NOTE | 2016-04-27 09:02 | General Progress Note ---
Assessment/Plan Assessment/Plan IMPRESSION: 1. Intractable nausea and vomiting. 2. Intractable pain. 3. Recent hip wound infection. 4. Paraplegia. 5. Anemia. 6. History of transfusion. 7. History of acute renal failure and dehydration. 8. Protein-calorie malnutrition. 9. memory loss 10. gallstones PLAN monitor labs replace K avoid frequent lab draws monitor for change IV antibiotics noted; ID follow up noted; dispo to be discussed culture follow up reviewed pain control close follow up guarded with multiple med issues appetite stimulant monitor for change and recommend hope to proceed with dc soon; d/w ID impression, plan, and exam edited and reviewed in detail care discussed with RN Subjective Allergies: Coded Allergies: CEFTRIAXONE (Verified Allergy, Intermediate, SOB, HR-140bpm, face swollen , pt became red, 10/24/15) CODEINE (Verified Allergy, Intermediate, SWELLING, 01/03/11) LATEX (Verified Allergy, Intermediate, SWELLING, 01/03/11) PIPERACILLIN (Verified Allergy, Intermediate, Itching, 08/29/15) 08/29/15 tolerates Ceftaroline TAZOBACTAM (Verified Allergy, Intermediate, Itching, 01/29/15) POLYMYXIN B (Verified Allergy, Mild, Rash, 04/08/16) Suspected allergy reported by VANCOMYCIN (Verified Allergy, Mild, 07/15/14) ASPARAGINASE (Verified Allergy, Unknown, 01/28/14) CEFUROXIME (Unverified Allergy, Unknown, 04/19/16) IRON (Verified Allergy, Unknown, 01/28/14) Subjective stable over weekend orders noted and reviewed Objective Last 24 Hour Vital Signs Date Time Temp Pulse Resp B/P Pulse Ox O2 Delivery O2 Flow Rate FiO2 04/27/16 04:30 97.3 57 20 118/68 97 Room Air 04/27/16 00:31 98.0 94 20 137/87 98 Room Air 04/26/16 20:00 97.7 94 22 139/83 98 Room Air 04/26/16 16:00 98.2 106 18 134/79 99 Room Air 04/26/16 14:55 97.9 04/26/16 12:00 97.9 91 21 136/84 100 Room Air Intake and Output 04/26/16 04/27/16 19:00 07:00 Intake Total 1140 ml 1270 ml Output Total 425 ml Balance 715 ml 1270 ml Intake Oral 240 ml 120 ml IV Total 900 ml 1150 ml Output Stool Total 425 ml # Voids 5 2 Laboratory Tests 04/27/16 04:10: White Blood Count 9.3, Red Blood Count 3.63L, Hemoglobin 10.1L, Hematocrit 30.9L , Mean Corpuscular Volume 85, Mean Corpuscular Hemoglobin 27.9, Mean Corpuscular Hemoglobin Concent 32.8, Red Cell Distribution Width 16.3H, Platelet Count 289, Mean Platelet Volume 8.0, Neutrophils (%) (Auto) 49.7, Lymphocytes (%) (Auto) 36.3, Monocytes (%) (Auto) 7.2, Eosinophils (%) (Auto) 6.5H, Basophils (%) (Auto) 0.5, Sodium Level 138, Potassium Level 3.3L, Chloride Level 101, Carbon Dioxide Level 23, Anion Gap 14, Blood Urea Nitrogen 6L, Creatinine 0.8, Estimat Glomerular Filtration Rate > 60, Glucose Level 76, Calcium Level 6.9L, Thyroid Stimulating Hormone (TSH) 5.710H Height (Feet): 5 Height (Inches): 5.00 Weight (Pounds): 210 Objective GENERAL: The patient is a well-developed female, NAD; weak HEENT: Fairly negative. Extraocular movements are grossly intact. Oropharynx is otherwise moist. LUNGS: Fairly clear. No rhonchi or wheezes. good air entry CARDIAC: S1 and S2. RRR without murmurs or rubs. ABDOMEN: Soft, nontender, and nondistended. no HSM EXTREMITIES: No cyanosis or clubbing. Minimal edema. NEUROLOGICAL: Paraplegia. alert and oriented reviewed and edited LUANN MICHEL Apr 27, 2016 09:02
--- NOTE | 2016-04-27 10:30 | General Progress Note ---
Progress Note Progress Note Feels much better, no abdominal pain. No surgery planned at this time FRANCISCO JAVIER ELLIOTT Apr 27, 2016 10:30
--- NOTE | 2016-04-27 10:44 | Infectious Diseases Prog Note ---
Assessment/Plan Assessment/Plan ASSESSMENT AND PLAN: 1. 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 treat as osteo - will d/w plastic surgery about osteo - will d/w pharmacy to evaluate if patient has had carbapenem in past 2. acinetobacter bacteremia, f/u blood cultures negative, s/p full tygacil course 3. nausea and vomiting - improved, gi w/u, gs on us 4. Weight loss, anemia, hx lois resolved 5. History of osteoarthritis and treatment. 6. Colostomy. 7. Paraplegia. 8. Anemia. 9. ? diabetes - patient denies dm hx, bs elevated only with infection per pt 10. Chronic pain management and chronic pain syndrome, anxiety 11. History of cholelithiasis. 12. Pain management for primary, opiate dependency 13. Multiple allergies to asparaginase, Rocephin, codeine, iron, Latex, piperacillin, tazobactam, and vancomycin. 14. wound care per protocol and plastic surgery 15. The case was discussed with RN 16. The case was discussed with the patient. 17. fh-nc, sh-negative, mar noted 18. notes and records reviewed Subjective Constitutional: Denies: fever HEENT: Denies: congestion Respiratory: Denies: shortness of breath Cardiovascular: Denies: chest pain Gastrointestinal/Abdominal: Reports: other - + colostomy, Denies: nausea, vomiting Neurologic: Reports: weakness, Denies: headache Skin: Reports: other - no itching Musculoskeletal: Denies: pain Allergies: Coded Allergies: CEFTRIAXONE (Verified Allergy, Intermediate, SOB, HR-140bpm, face swollen , pt became red, 10/24/15) CODEINE (Verified Allergy, Intermediate, SWELLING, 01/03/11) LATEX (Verified Allergy, Intermediate, SWELLING, 01/03/11) PIPERACILLIN (Verified Allergy, Intermediate, Itching, 08/29/15) 08/29/15 tolerates Ceftaroline TAZOBACTAM (Verified Allergy, Intermediate, Itching, 01/29/15) POLYMYXIN B (Verified Allergy, Mild, Rash, 04/08/16) Suspected allergy reported by VANCOMYCIN (Verified Allergy, Mild, 07/15/14) ASPARAGINASE (Verified Allergy, Unknown, 01/28/14) CEFUROXIME (Unverified Allergy, Unknown, 04/19/16) IRON (Verified Allergy, Unknown, 01/28/14) Objective Vital Signs Last 24 Hour Vital Signs Date Time Temp Pulse Resp B/P Pulse Ox O2 Delivery O2 Flow Rate FiO2 04/27/16 09:20 97.3 04/27/16 04:30 97.3 57 20 118/68 97 Room Air 04/27/16 00:31 98.0 94 20 137/87 98 Room Air 04/26/16 20:00 97.7 94 22 139/83 98 Room Air 04/26/16 16:00 98.2 106 18 134/79 99 Room Air 04/26/16 14:55 97.9 04/26/16 12:00 97.9 91 21 136/84 100 Room Air Height (Feet): 5 Height (Inches): 5.00 Weight (Pounds): 210 General Appearance: no acute distress HEENT: normocephalic, atraumatic, anicteric, mucous membranes moist, PERRL, EOMI, pharynx normal, supple, no JVD Respiratory/Chest: lungs clear, normal breath sounds, no respiratory distress, no accessory muscle use Cardiovascular: normal rate, regular rhythm, no gallop/murmur, no JVD Abdomen: normal bowel sounds, soft, non tender, no organomegaly, non distended Genitourinary: other - no bay Extremities: no cyanosis Skin: rash - improved 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: credit compliance officer II-XII grossly normal, alert, oriented x 3, responsive, motor weakness Lymphatic: no neck adenopathy Musculoskeletal: no effusion Objective hida - report noted Microbiology Date/Time Source Procedure Growth Status 04/20/16 05:00 Blood Blood Culture - Final NO GROWTH AFTER 5 DAYS Complete 04/19/16 19:00 Sacral Wound Gram Stain - Final Complete 04/19/16 19:00 Wound Culture - Final Escherichia Coli - Esbl Klebsiella Pneumoniae Morganella Morg Spp Morganii Complete Laboratory Tests Test 04/27/16 04:10 White Blood Count 9.3 K/UL (4.8-10.8) Red Blood Count 3.63 M/UL (4.20-5.40) L Hemoglobin 10.1 G/DL (12.0-16.0) L Hematocrit 30.9 % (37.0-47.0) L Mean Corpuscular Volume 85 FL (80-99) Mean Corpuscular Hemoglobin 27.9 PG (27.0-31.0) Mean Corpuscular Hemoglobin Concent 32.8 G/DL (32.0-36.0) Red Cell Distribution Width 16.3 % (11.6-14.8) H Platelet Count 289 K/UL (150-450) Mean Platelet Volume 8.0 FL (6.5-10.1) Neutrophils (%) (Auto) 49.7 % (45.0-75.0) Lymphocytes (%) (Auto) 36.3 % (20.0-45.0) Monocytes (%) (Auto) 7.2 % (1.0-10.0) Eosinophils (%) (Auto) 6.5 % (0.0-3.0) H Basophils (%) (Auto) 0.5 % (0.0-2.0) Sodium Level 138 mEQ/L (135-145) Potassium Level 3.3 mEQ/L (3.4-4.9) L Chloride Level 101 mEQ/L (98-107) Carbon Dioxide Level 23 mEQ/L (20-30) Anion Gap 14 (5-15) Blood Urea Nitrogen 6 mg/dL (7-23) L Creatinine 0.8 mg/dL (0.5-0.9) Estimat Glomerular Filtration Rate > 60 mL/min (>60) Glucose Level 76 mg/dL (74-106) Calcium Level 6.9 mg/dL (8.6-10.2) L Thyroid Stimulating Hormone (TSH) 5.710 uIU/mL (0.300-4.500) Current Medications Medications (Trade) Dose Ordered Sig/Pineda Route PRN Reason Start Time Stop Time Status Last Admin Dose Admin Acetaminophen (Tylenol) 650 mg Q4H PRN ORAL Mild Pain/Temp > 100.5 04/19/16 17:15 05/19/16 17:14 Al Hydroxide/Mg Hydroxide (Mylanta) 30 ml EVERY 4 HOURS PRN ORAL Heartburn 04/19/16 17:15 05/19/16 17:14 Amikacin Protocol 1 ea 1 ea DAILY PRN MISC Per rx protocol 04/23/16 15:00 05/23/16 14:59 Amikacin Sulfate/ Sodium Chloride (Amikin/Sodium Chloride 100ml bag) 166 ml @ 166 mls/hr Q36H IV 04/26/16 04:00 05/03/16 03:59 04/26/16 04:03 Dextrose (Dextrose 50%) STAT PRN IV Hypoglycemia 04/19/16 17:15 05/19/16 17:14 Diphenhydramine HCl (Benadryl) 25 mg Q3HR PRN IVP Itching 04/19/16 19:45 05/19/16 19:44 04/27/16 08:50 Dronabinol (Marinol) 2.5 mg BID ORAL 04/20/16 09:00 05/20/16 08:59 04/24/16 09:50 Heparin Sodium (Porcine) (Heparin 5000 units/ml) 5,000 units EVERY 12 HOURS SUBQ 04/19/16 21:00 05/19/16 20:59 04/26/16 20:21 Hydrocortisone (Hydrocortisone) 1 applic Q6H PRN TOPIC Itching 04/23/16 11:30 05/23/16 11:29 04/23/16 21:58 Hydromorphone HCl (Dilaudid) 2 mg Q3H PRN IVP SEVERE PAIN 04/26/16 18:30 05/03/16 18:29 04/27/16 08:50 Linezolid (Zyvox) 300 ml @ 300 mls/hr EVERY 12 HOURS IVPB 04/23/16 21:00 04/30/16 20:59 04/27/16 08:50 Magnesium Hydroxide (Mom) 30 ml DAILYPRN PRN ORAL Constipation 04/19/16 17:15 05/19/16 17:14 Metronidazole 500 mg 500 mg EVERY 8 HOURS ORAL 04/23/16 22:00 04/30/16 21:59 04/27/16 05:34 Mirtazapine (Remeron) 15 mg BEDTIME ORAL 04/20/16 21:00 05/20/16 20:59 04/20/16 21:27 Ondansetron HCl 4 mg 4 mg Q6H PRN IVP Nausea & Vomiting 04/19/16 17:15 05/19/16 17:14 04/26/16 18:27 Pantoprazole (Protonix) 40 mg DAILY ORAL 04/20/16 09:00 05/20/16 08:59 04/27/16 08:50 Sodium Hypochlorite (Dakin's Quarter Strength) 1 applic Q24H TOPIC 04/21/16 00:00 05/21/16 00:00 04/27/16 04:26 Sodium Chloride (Sodium Chloride 1000ml bag) 1,000 ml @ 100 mls/hr Q10H IV 04/19/16 18:00 05/19/16 17:59 04/27/16 01:29 Topiramate (Topamax) 25 mg EVERY 12 HOURS ORAL 04/21/16 13:00 05/21/16 12:59 04/26/16 08:31 Zolpidem Tartrate (Ambien) 5 mg HSPRN PRN ORAL Insomnia 04/19/16 17:15 05/19/16 17:14 GRZEGORZ MARTINEZ Apr 27, 2016 10:43
[2016-04-27 11:53] VITALS: BP 114/78
[2016-04-27 16:00] VITALS: BP 116/75
[2016-04-27] MEDS: AMIKACIN IV SCH (16:14)
[2016-04-27] MEDS: NS IV SCH (16:14)
[2016-04-27 20:05] VITALS: BP 121/83
--- NOTE | 2016-04-27 22:43 | General Progress Note ---
Assessment/Plan Assessment/Plan Assessment - N/V, ? due to chronic cholecystitis - weight loss - abd pain - cholelithiasis - negative EGD/Colon 11/2105 - multiple decubs Recommendations - no plans for surgery at this time - monitor LFT - trial of Marinol and Remeron - OOB - d/c planning per PMD Subjective Allergies: Coded Allergies: CEFTRIAXONE (Verified Allergy, Intermediate, SOB, HR-140bpm, face swollen , pt became red, 10/24/15) CODEINE (Verified Allergy, Intermediate, SWELLING, 01/03/11) LATEX (Verified Allergy, Intermediate, SWELLING, 01/03/11) PIPERACILLIN (Verified Allergy, Intermediate, Itching, 08/29/15) 08/29/15 tolerates Ceftaroline TAZOBACTAM (Verified Allergy, Intermediate, Itching, 01/29/15) POLYMYXIN B (Verified Allergy, Mild, Rash, 04/08/16) Suspected allergy reported by VANCOMYCIN (Verified Allergy, Mild, 07/15/14) ASPARAGINASE (Verified Allergy, Unknown, 01/28/14) CEFUROXIME (Unverified Allergy, Unknown, 04/19/16) IRON (Verified Allergy, Unknown, 01/28/14) Subjective Feels OK no vomiting in last 24 hours but poor PO Objective Last 24 Hour Vital Signs Date Time Temp Pulse Resp B/P Pulse Ox O2 Delivery O2 Flow Rate FiO2 04/27/16 20:18 97.7 04/27/16 20:05 97.7 105 19 121/83 99 Room Air 04/27/16 16:00 97.7 104 19 116/75 99 Room Air 04/27/16 11:53 98.2 94 20 114/78 100 Room Air 04/27/16 04:30 97.3 57 20 118/68 97 Room Air 04/27/16 00:31 98.0 94 20 137/87 98 Room Air Intake and Output 04/26/16 04/27/16 19:00 07:00 Intake Total 1140 ml 1370 ml Output Total 425 ml Balance 715 ml 1370 ml Intake Oral 240 ml 120 ml IV Total 900 ml 1250 ml Output Stool Total 425 ml # Voids 5 2 Laboratory Tests 04/27/16 04:10: White Blood Count 9.3, Red Blood Count 3.63L, Hemoglobin 10.1L, Hematocrit 30.9L , Mean Corpuscular Volume 85, Mean Corpuscular Hemoglobin 27.9, Mean Corpuscular Hemoglobin Concent 32.8, Red Cell Distribution Width 16.3H, Platelet Count 289, Mean Platelet Volume 8.0, Neutrophils (%) (Auto) 49.7, Lymphocytes (%) (Auto) 36.3, Monocytes (%) (Auto) 7.2, Eosinophils (%) (Auto) 6.5H, Basophils (%) (Auto) 0.5, Sodium Level 138, Potassium Level 3.3L, Chloride Level 101, Carbon Dioxide Level 23, Anion Gap 14, Blood Urea Nitrogen 6L, Creatinine 0.8, Estimat Glomerular Filtration Rate > 60, Glucose Level 76, Calcium Level 6.9L, Thyroid Stimulating Hormone (TSH) 5.710H Height (Feet): 5 Height (Inches): 5.00 Weight (Pounds): 210 Objective WDWN NCAT supple CTA RRR Soft ND NT, (+) colostomy (+) contracted PITER DEAN Apr 27, 2016 22:43
[2016-04-28] VITALS (8 sets, daily range): BP systolic 96–146; BP diastolic 69–92
[2016-04-28] MEDS: DiphenhydrAMINE 50mg/ml Inj IVP PRN ×6 (01:55→20:26)
[2016-04-28] MEDS: Dakin's 0.125% Soln (Quarter Strength) 16oz TOPIC SCH (03:26)
[2016-04-28] MEDS: metroNIDAZOLE 500mg tab ORAL SCH ×3 (05:03→21:53)
[2016-04-28 07:05] LABS: CREATININE 0.6 mg/dL (0.5-0.9); GLOMERULAR FILTRATION RATE > 60 mL/min (>60)
[2016-04-28] MEDS: Dronabinol 2.5mg Cap ORAL SCH ×2 (07:57→18:00)
[2016-04-28] MEDS: Topiramate 25mg tab ORAL SCH ×2 (07:59→20:38)
[2016-04-28] MEDS: Heparin 5000 units/ml inj SUBQ SCH ×2 (07:59→20:44)
--- NOTE | 2016-04-28 11:20 | General Progress Note ---
Assessment/Plan Assessment/Plan IMPRESSION: 1. Intractable nausea and vomiting. 2. Intractable pain. 3. Recent hip wound infection. 4. Paraplegia. 5. Anemia. 6. History of transfusion. 7. History of acute renal failure and dehydration. 8. Protein-calorie malnutrition. 9. memory loss 10. gallstones 11. abdominal pain 12. leg edema PLAN labs ok IV antibiotics noted; amikacin at home ID follow up noted; dispo to be discussed culture follow up reviewed pain management monitor for change and recommend po antibiotics given abdominal ct duplex of legs dc iv hold dc impression, plan, and exam edited and reviewed in detail care discussed with RN Subjective Allergies: Coded Allergies: CEFTRIAXONE (Verified Allergy, Intermediate, SOB, HR-140bpm, face swollen , pt became red, 10/24/15) CODEINE (Verified Allergy, Intermediate, SWELLING, 01/03/11) LATEX (Verified Allergy, Intermediate, SWELLING, 01/03/11) PIPERACILLIN (Verified Allergy, Intermediate, Itching, 08/29/15) 08/29/15 tolerates Ceftaroline TAZOBACTAM (Verified Allergy, Intermediate, Itching, 01/29/15) POLYMYXIN B (Verified Allergy, Mild, Rash, 04/08/16) Suspected allergy reported by MD VANCOMYCIN (Verified Allergy, Mild, 07/15/14) ASPARAGINASE (Verified Allergy, Unknown, 01/28/14) CEFUROXIME (Unverified Allergy, Unknown, 04/19/16) IRON (Verified Allergy, Unknown, 01/28/14) Subjective increasing abdominal pain increasing edema Objective Last 24 Hour Vital Signs Date Time Temp Pulse Resp B/P Pulse Ox O2 Delivery O2 Flow Rate FiO2 04/28/16 08:30 98.0 04/28/16 08:26 98.0 107 20 145/75 100 Room Air 04/28/16 04:00 97.4 96 18 96/70 100 Room Air 04/28/16 00:00 97.0 93 19 146/92 100 Room Air 04/27/16 20:05 97.7 105 19 121/83 99 Room Air 04/27/16 16:00 97.7 104 19 116/75 99 Room Air 04/27/16 11:53 98.2 94 20 114/78 100 Room Air Intake and Output 04/27/16 04/28/16 19:00 07:00 Intake Total 1846 ml 2360 ml Output Total 400 ml Balance 1846 ml 1960 ml Intake Oral 480 ml 960 ml IV Total 1366 ml 1400 ml Output Stool Total 400 ml # Voids 3 1 # Bowel Movements 1 Laboratory Tests 04/28/16 04:00: Blood Urea Nitrogen 5L, Creatinine 0.6, Estimat Glomerular Filtration Rate > 60 Height (Feet): 5 Height (Inches): 5.00 Weight (Pounds): 210 Objective GENERAL: The patient is a well-developed female, NAD; weak HEENT: Fairly negative. Extraocular movements are grossly intact. Oropharynx is otherwise moist. LUNGS: Fairly clear. No rhonchi or wheezes. good air entry CARDIAC: S1 and S2. RRR without murmurs or rubs. ABDOMEN: Soft, some RUQ tenderness, and nondistended. no HSM EXTREMITIES: No cyanosis or clubbing. slightlly worsened edema. NEUROLOGICAL: Paraplegia. alert and oriented reviewed and edited LUANN MICHEL Apr 28, 2016 11:20
--- NOTE | 2016-04-28 15:45 | Diagnostic Imaging Report ---
Indication: Abdominal pain Technique: Continuous helical transaxial imaging of the abdomen and pelvis was obtained from the lung bases to the pubic symphysis during intravenous contrast administration. Coronal 2-D reformats were also obtained. Study obtained in a Siemens sensation [address] Total Dose length Product (DLP): [address] Dose Index Volume (CTDIvol): 20 mGy Comparison: 10/15/15 Findings: There is marked destruction of the L2 vertebral body particularly the lower endplate. Fragments of the vertebral body project anteriorly and laterally. There is extensive soft tissue swelling extending anteriorly and laterally. The abdominal aorta is focally displaced anteriorly due to the vertebral body destruction and paravertebral extension. The previous study demonstrated a right psoas muscle enlargement with a small focus of air, with a consideration of infection as the cause. Infection is at the top of the differential diagnosis with regard to the pathology. There is some degree of retropulsion. There is likely some narrowing of the central canal but this would be better evaluated with MRI. There is also moderate hypertrophy of the facet joints about this level. Small right pleural effusion is present. The liver is low in density. The kidneys, spleen and pancreas are unremarkable. Gallstones are present.. There is a transverse colostomy in the left lower quadrant of the abdomen. Fairly large parastomal hernia noted associated with this. There is extensive pelvic bony deformity with destruction of both hips and prominent decubitus ulcers. Overall, this disease appears relatively stable. Impression: Destruction of the L2 vertebra probably on the basis of acute osteomyelitis. Please correlate clinically. Thecal sac and nerve root compression likely present but not evaluated well on this examination. Consider MRI. Neoplasm is in the differential diagnosis but felt to be less likely based on appearance. Extensive decubitus ulcers in multiple locations. This disease appears all to be stable compared to prior study. Marked destruction of both hips and ischial. Small right pleural effusion. Fatty liver Atherosclerotic vascular disease Gallstone Transverse colostomy with large parastomal hernia containing fat and bowel. This appears stable. The CT scanner at [facility] is accredited by the [employer] and the scans are performed using protocols designed to limit radiation exposure to as low as reasonably achievable to attain images of sufficient resolution adequate for diagnostic evaluation.
--- NOTE | 2016-04-28 21:11 | General Progress Note ---
Assessment/Plan Assessment/Plan Assessment - N/V, ? due to chronic cholecystitis, ? due to narcotics - Destruction of the L2 vertebra probably on the basis of acute osteomyelitis. - weight loss - abd pain - cholelithiasis - negative EGD/Colon 11/2105 - multiple decubs Recommendations - Surgical eval re spine findings - monitor LFT - trial of Marinol and Remeron - OOB Subjective Allergies: Coded Allergies: CEFTRIAXONE (Verified Allergy, Intermediate, SOB, HR-140bpm, face swollen , pt became red, 10/24/15) CODEINE (Verified Allergy, Intermediate, SWELLING, 01/03/11) LATEX (Verified Allergy, Intermediate, SWELLING, 01/03/11) PIPERACILLIN (Verified Allergy, Intermediate, Itching, 08/29/15) 08/29/15 tolerates Ceftaroline TAZOBACTAM (Verified Allergy, Intermediate, Itching, 01/29/15) POLYMYXIN B (Verified Allergy, Mild, Rash, 04/08/16) Suspected allergy reported by MD VANCOMYCIN (Verified Allergy, Mild, 07/15/14) ASPARAGINASE (Verified Allergy, Unknown, 01/28/14) CEFUROXIME (Unverified Allergy, Unknown, 04/19/16) IRON (Verified Allergy, Unknown, 01/28/14) Subjective c/o recurrent N/V today also noted TTP when abd examined advised pt re normal TFT Objective Last 24 Hour Vital Signs Date Time Temp Pulse Resp B/P Pulse Ox O2 Delivery O2 Flow Rate FiO2 04/28/16 20:00 97.9 100 18 126/78 98 Room Air 04/28/16 18:19 101 117/70 04/28/16 16:00 97.7 100 20 130/77 100 Room Air 04/28/16 12:46 97.9 04/28/16 11:46 97.9 96 20 117/70 100 Room Air 04/28/16 08:26 98.0 107 20 145/75 100 Room Air 04/28/16 04:00 97.4 96 18 96/70 100 Room Air 04/28/16 00:00 97.0 93 19 146/92 100 Room Air Intake and Output 04/27/16 04/28/16 19:00 07:00 Intake Total 1846 ml 2360 ml Output Total 400 ml Balance 1846 ml 1960 ml Intake Oral 480 ml 960 ml IV Total 1366 ml 1400 ml Output Stool Total 400 ml # Voids 3 1 # Bowel Movements 1 Laboratory Tests 04/28/16 04:00: Blood Urea Nitrogen 5L, Creatinine 0.6, Estimat Glomerular Filtration Rate > 60 Height (Feet): 5 Height (Inches): 5.00 Weight (Pounds): 210 Objective WDWN NCAT supple CTA RRR Soft ND NT, (+) colostomy, (+) (L) sided abd TTP (+) contracted PITER DEAN Apr 28, 2016 21:11
[2016-04-29] MEDS: Dakin's 0.125% Soln (Quarter Strength) 16oz TOPIC SCH
[2016-04-29] MEDS: DiphenhydrAMINE 50mg/ml Inj IVP PRN ×7 (00:01→23:31)
[2016-04-29 04:00] VITALS: BP 115/75
[2016-04-29] MEDS ORDERED: Amikacin 1,500 MG in NS 110 ML IV SCH (04:00)
[2016-04-29] MEDS: metroNIDAZOLE 500mg tab ORAL SCH (05:36)
[2016-04-29 07:03] LABS: BASOPHILS % (AUTO) 0.6 % (0.0-2.0); EOSINOPHILS % (AUTO) 6.1 % (0.0-3.0); LYMPHOCYTES % (AUTO) 25.7 % (20.0-45.0); MEAN CORPUSCULAR HEMOGLOBIN 27.7 PG (27.0-31.0); MEAN CORPUSCULAR HGB CONC 32.6 G/DL (32.0-36.0); MEAN CORPUSCULAR VOLUME 85 FL (80-99); MONOCYTES % (AUTO) 5.6 % (1.0-10.0); PLATELET COUNT 262 K/UL (150-450); RED BLOOD COUNT 3.52 M/UL (4.20-5.40); RED CELL DISTRIBUTION WIDTH 16.3 % (11.6-14.8); WHITE BLOOD COUNT 8.7 K/UL (4.8-10.8)
[2016-04-29 07:22] LABS: ANION GAP 14 (5-15); CALCIUM 6.9 mg/dL (8.6-10.2); CARBON DIOXIDE 23 mEQ/L (20-30); CHLORIDE 106 mEQ/L (98-107); CREATININE 0.7 mg/dL (0.5-0.9); GLOMERULAR FILTRATION RATE > 60 mL/min (>60); HEMOLYSIS 2; POTASSIUM 3.3 mEQ/L (3.4-4.9); SODIUM 143 mEQ/L (135-145)
[2016-04-29 08:12] VITALS: BP 122/64
[2016-04-29] MEDS: Heparin 5000 units/ml inj SUBQ SCH ×2 (08:13→20:53)
[2016-04-29] MEDS: Dronabinol 2.5mg Cap ORAL SCH ×2 (08:14→18:00)
[2016-04-29] MEDS: Topiramate 25mg tab ORAL SCH ×3 (08:14→20:53)
[2016-04-29] MEDS ORDERED: AMIKACIN S1000 MG/4 IJ (09:52)
[2016-04-29 12:03] VITALS: BP 135/86
--- NOTE | 2016-04-29 12:08 | Wound Nurse Progress Note ---
Wound RN Progress Note Wound Consult Received call from shoe caser requesting for colostomy supplies. Colostomy supplies given to patient. provided 3 bags,normal saline spray , gauze , no sting barrier film and colostomy secure clip. Supplies given to patient , placed in a belonging bag. Patient aware of supplies given. Assigned RN made aware. SUGEY JORDAN Apr 29, 2016 12:08
[2016-04-29] MEDS ORDERED: METRONIDAZOLE500 MG ORAL (12:28)
[2016-04-29] MEDS ORDERED: ZYVOX600 MG ORAL (12:29)
--- NOTE | 2016-04-29 13:25 | Infectious Diseases Prog Note ---
Assessment/Plan Assessment/Plan ASSESSMENT AND PLAN: 1. 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 treat as osteo - consider spine surgery evaluation for further recs about possible lumbar spine osteo/discitis and further imaging, w/u etc. - ? challenge patient with carbapenem if long-term abx needed, d/w pharmacy and only had one dose meropenem in past and ? why discontinued 2. acinetobacter bacteremia, f/u blood cultures negative, s/p full tygacil course 3. nausea and vomiting - improved, gi w/u, gs on us 4. Weight loss, anemia, hx lois resolved 5. History of osteoarthritis and treatment. 6. Colostomy. 7. Paraplegia. 8. Anemia. 9. ? diabetes - patient denies dm hx, bs elevated only with infection per pt 10. Chronic pain management and chronic pain syndrome, anxiety 11. History of cholelithiasis. 12. Pain management for primary, opiate dependency 13. Multiple allergies to asparaginase, Rocephin, codeine, iron, Latex, piperacillin, tazobactam, and vancomycin. 14. wound care per protocol and plastic surgery 15. The case was discussed with RN 16. The case was discussed with the patient. 17. fh-nc, sh-negative, mar noted 18. notes and records reviewed Subjective Constitutional: Denies: fever HEENT: Denies: congestion Respiratory: Denies: shortness of breath Cardiovascular: Denies: chest pain Gastrointestinal/Abdominal: Reports: other - + colostomy , Denies: nausea, vomiting Neurologic: Denies: headache Skin: Reports: rash - rash stable Hematologic: Denies: bleeding Allergies: Coded Allergies: CEFTRIAXONE (Verified Allergy, Intermediate, SOB, HR-140bpm, face swollen , pt became red, 10/24/15) CODEINE (Verified Allergy, Intermediate, SWELLING, 01/03/11) LATEX (Verified Allergy, Intermediate, SWELLING, 01/03/11) PIPERACILLIN (Verified Allergy, Intermediate, Itching, 08/29/15) 08/29/15 tolerates Ceftaroline TAZOBACTAM (Verified Allergy, Intermediate, Itching, 01/29/15) POLYMYXIN B (Verified Allergy, Mild, Rash, 04/08/16) Suspected allergy reported by VANCOMYCIN (Verified Allergy, Mild, 07/15/14) ASPARAGINASE (Verified Allergy, Unknown, 01/28/14) CEFUROXIME (Unverified Allergy, Unknown, 04/19/16) IRON (Verified Allergy, Unknown, 01/28/14) Objective Vital Signs Last 24 Hour Vital Signs Date Time Temp Pulse Resp B/P Pulse Ox O2 Delivery O2 Flow Rate FiO2 04/29/16 12:03 98.0 98 20 135/86 99 Room Air 04/29/16 08:12 98.2 97 20 122/64 98 Room Air 04/29/16 05:22 98.1 04/29/16 04:00 97.8 101 19 115/75 98 Room Air 04/28/16 23:06 98.1 93 18 112/69 98 Room Air 04/28/16 20:00 97.9 100 18 126/78 98 Room Air 04/28/16 18:19 101 117/70 04/28/16 16:00 97.7 100 20 130/77 100 Room Air Height (Feet): 5 Height (Inches): 5.00 Weight (Pounds): 210 General Appearance: no acute distress HEENT: normocephalic, atraumatic, anicteric, mucous membranes moist, PERRL, EOMI, pharynx normal, supple, no JVD Respiratory/Chest: lungs clear, normal breath sounds, no respiratory distress, no accessory muscle use Cardiovascular: normal rate, regular rhythm, no gallop/murmur, no JVD Abdomen: normal bowel sounds, soft, non tender, no organomegaly, non distended Genitourinary: other - no bay Extremities: no cyanosis Skin: other - rash stable 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: management consultant II-XII grossly normal, alert, oriented x 3, responsive, motor weakness Lymphatic: no neck adenopathy Musculoskeletal: no effusion Objective hida - report noted Microbiology Date/Time Source Procedure Growth Status 04/20/16 05:00 Blood Blood Culture - Final NO GROWTH AFTER 5 DAYS Complete 04/19/16 19:00 Sacral Wound Gram Stain - Final Complete 04/19/16 19:00 Wound Culture - Final Escherichia Coli - Esbl Klebsiella Pneumoniae Morganella Morg Spp Morganii Complete Laboratory Tests Test 04/29/16 05:00 White Blood Count 8.7 K/UL (4.8-10.8) Red Blood Count 3.52 M/UL (4.20-5.40) L Hemoglobin 9.8 G/DL (12.0-16.0) L Hematocrit 29.9 % (37.0-47.0) L Mean Corpuscular Volume 85 FL (80-99) Mean Corpuscular Hemoglobin 27.7 PG (27.0-31.0) Mean Corpuscular Hemoglobin Concent 32.6 G/DL (32.0-36.0) Red Cell Distribution Width 16.3 % (11.6-14.8) H Platelet Count 262 K/UL (150-450) Mean Platelet Volume 8.0 FL (6.5-10.1) Neutrophils (%) (Auto) 62.0 % (45.0-75.0) Lymphocytes (%) (Auto) 25.7 % (20.0-45.0) Monocytes (%) (Auto) 5.6 % (1.0-10.0) Eosinophils (%) (Auto) 6.1 % (0.0-3.0) H Basophils (%) (Auto) 0.6 % (0.0-2.0) Sodium Level 143 mEQ/L (135-145) Potassium Level 3.3 mEQ/L (3.4-4.9) L Chloride Level 106 mEQ/L (98-107) Carbon Dioxide Level 23 mEQ/L (20-30) Anion Gap 14 (5-15) Blood Urea Nitrogen 4 mg/dL (7-23) L Creatinine 0.7 mg/dL (0.5-0.9) Estimat Glomerular Filtration Rate > 60 mL/min (>60) Glucose Level 69 mg/dL (74-106) L Calcium Level 6.9 mg/dL (8.6-10.2) L Current Medications Medications (Trade) Dose Ordered Sig/Pineda Route PRN Reason Start Time Stop Time Status Last Admin Dose Admin Acetaminophen (Tylenol) 650 mg Q4H PRN ORAL Mild Pain/Temp > 100.5 04/19/16 17:15 05/19/16 17:14 Al Hydroxide/Mg Hydroxide (Mylanta) 30 ml EVERY 4 HOURS PRN ORAL Heartburn 04/19/16 17:15 05/19/16 17:14 Amikacin Protocol 1 ea 1 ea DAILY PRN MISC Per rx protocol 04/23/16 15:00 05/23/16 14:59 Amikacin Sulfate/ Sodium Chloride (Amikin/Sodium Chloride) 116 ml @ 116 mls/hr Q36H IV 04/29/16 04:00 05/06/16 03:59 04/29/16 04:17 Dextrose (Dextrose 50%) STAT PRN IV Hypoglycemia 04/19/16 17:15 05/19/16 17:14 Diphenhydramine HCl (Benadryl) 25 mg Q3HR PRN IVP Itching 04/19/16 19:45 05/19/16 19:44 04/29/16 12:03 Dronabinol (Marinol) 2.5 mg BID ORAL 04/20/16 09:00 05/20/16 08:59 04/24/16 09:50 Heparin Sodium (Porcine) (Heparin 5000 units/ml) 5,000 units EVERY 12 HOURS SUBQ 04/19/16 21:00 05/19/16 20:59 04/28/16 20:44 Hydrocortisone (Hydrocortisone) 1 applic Q6H PRN TOPIC Itching 04/23/16 11:30 05/23/16 11:29 04/23/16 21:58 Hydromorphone HCl 2 mg 2 mg Q3H PRN IVP SEVERE PAIN 04/26/16 18:30 05/03/16 18:29 04/29/16 12:04 Linezolid (Zyvox) 300 ml @ 300 mls/hr EVERY 12 HOURS IVPB 04/23/16 21:00 04/30/16 20:59 04/29/16 08:15 Magnesium Hydroxide (Mom) 30 ml DAILYPRN PRN ORAL Constipation 04/19/16 17:15 05/19/16 17:14 Metronidazole (Flagyl) 500 mg EVERY 8 HOURS ORAL 04/23/16 22:00 04/30/16 21:59 04/29/16 05:36 Mirtazapine (Remeron) 15 mg BEDTIME ORAL 04/20/16 21:00 05/20/16 20:59 04/20/16 21:27 Ondansetron HCl (Zofran) 4 mg Q6H PRN IVP Nausea & Vomiting 04/19/16 17:15 05/19/16 17:14 04/28/16 05:15 Pantoprazole (Protonix) 40 mg DAILY ORAL 04/20/16 09:00 05/20/16 08:59 04/29/16 08:14 Sodium Hypochlorite (Dakin's Quarter Strength) 1 applic Q24H TOPIC 04/21/16 00:00 05/21/16 00:00 04/29/16 00:00 Topiramate (Topamax) 25 mg EVERY 12 HOURS ORAL 04/21/16 13:00 05/21/16 12:59 04/26/16 08:31 Zolpidem Tartrate (Ambien) 5 mg HSPRN PRN ORAL Insomnia 04/19/16 17:15 05/19/16 17:14 GRZEGORZ MARITNEZ Apr 29, 2016 13:25
[2016-04-29] MEDS ORDERED: metroNIDAZOLE 500mg tab ORAL SCH (14:00)
[2016-04-29] MEDS ORDERED: Tubing IV Secondary IV ONE (14:16)
[2016-04-29] MEDS ORDERED: NS 275ml ONE (14:16)
[2016-04-29] MEDS ORDERED: Tubing Blood Filter IV ONE (14:16)
[2016-04-29 16:00] VITALS: BP 132/77
[2016-04-29] MEDS ORDERED: Cathflo Alteplase 2mg Inj INJ ONE (18:30)
[2016-04-29] MEDS: Meropenem 1 GM in NS 110 ML IVPB SCH (19:15)
[2016-04-29 20:00] VITALS: BP 134/67
--- NOTE | 2016-04-29 23:16 | General Progress Note ---
Assessment/Plan Assessment/Plan Assessment - N/V, ? due to chronic cholecystitis, ? due to narcotics - Destruction of the L2 vertebra probably on the basis of acute osteomyelitis. - weight loss - abd pain - cholelithiasis - negative EGD/Colon 11/2105 - multiple decubs Recommendations - Surgical eval spine findings - monitor LFT - trial of Marinol and Remeron - OOB Subjective Allergies: Coded Allergies: CEFTRIAXONE (Verified Allergy, Intermediate, SOB, HR-140bpm, face swollen , pt became red, 10/24/15) CODEINE (Verified Allergy, Intermediate, SWELLING, 01/03/11) LATEX (Verified Allergy, Intermediate, SWELLING, 01/03/11) PIPERACILLIN (Verified Allergy, Intermediate, Itching, 08/29/15) 08/29/15 tolerates Ceftaroline TAZOBACTAM (Verified Allergy, Intermediate, Itching, 01/29/15) POLYMYXIN B (Verified Allergy, Mild, Rash, 04/08/16) Suspected allergy reported by MD VANCOMYCIN (Verified Allergy, Mild, 07/15/14) ASPARAGINASE (Verified Allergy, Unknown, 01/28/14) CEFUROXIME (Unverified Allergy, Unknown, 04/19/16) IRON (Verified Allergy, Unknown, 01/28/14) Subjective c/o some abd pain imaging study results noted: Destruction of the L2 vertebra probably on the basis of acute osteomyelitis. Please correlate clinically. Thecal sac and nerve root compression likely present but not evaluated well on this examination. Consider MRI. Neoplasm is in the differential diagnosis but felt to be less likely based on appearance. Objective Last 24 Hour Vital Signs Date Time Temp Pulse Resp B/P Pulse Ox O2 Delivery O2 Flow Rate FiO2 04/29/16 20:00 97.9 100 22 134/67 98 Room Air 04/29/16 16:00 98.6 104 21 132/77 97 Room Air 04/29/16 12:03 98.0 98 20 135/86 99 Room Air 04/29/16 08:12 98.2 97 20 122/64 98 Room Air 04/29/16 05:22 98.1 04/29/16 04:00 97.8 101 19 115/75 98 Room Air Intake and Output 04/28/16 04/29/16 19:00 07:00 Intake Total 1220 ml 1356 ml Balance 1220 ml 1356 ml Intake Oral 720 ml 940 ml IV Total 500 ml 416 ml # Voids 3 6 # Bowel Movements 1 1 Laboratory Tests 04/29/16 05:00: White Blood Count 8.7, Red Blood Count 3.52L, Hemoglobin 9.8L, Hematocrit 29.9L , Mean Corpuscular Volume 85, Mean Corpuscular Hemoglobin 27.7, Mean Corpuscular Hemoglobin Concent 32.6, Red Cell Distribution Width 16.3H, Platelet Count 262, Mean Platelet Volume 8.0, Neutrophils (%) (Auto) 62.0, Lymphocytes (%) (Auto) 25.7, Monocytes (%) (Auto) 5.6, Eosinophils (%) (Auto) 6.1H, Basophils (%) (Auto) 0.6, Sodium Level 143, Potassium Level 3.3L, Chloride Level 106, Carbon Dioxide Level 23, Anion Gap 14, Blood Urea Nitrogen 4L, Creatinine 0.7, Estimat Glomerular Filtration Rate > 60, Glucose Level 69L, Calcium Level 6.9L Height (Feet): 5 Height (Inches): 5.00 Weight (Pounds): 210 Objective WDWN NCAT supple CTA RRR Soft ND NT, (+) colostomy, (+) (L) sided abd TTP (+) contracted PITER DEAN Apr 29, 2016 23:16
[2016-04-30] VITALS: BP 138/92
[2016-04-30] MEDS: Dakin's 0.125% Soln (Quarter Strength) 16oz TOPIC SCH
[2016-04-30] MEDS: DiphenhydrAMINE 50mg/ml Inj IVP PRN ×7 (02:44→22:35)
[2016-04-30] MEDS: Meropenem 1 GM in NS 110 ML IVPB SCH ×3 (03:17→20:05)
[2016-04-30 04:00] VITALS: BP 124/76
--- NOTE | 2016-04-30 07:28 | General Progress Note ---
Assessment/Plan Assessment/Plan IMPRESSION: 1. Intractable nausea and vomiting. 2. Intractable pain. 3. Recent hip wound infection. 4. Paraplegia. 5. Anemia. 6. History of transfusion. 7. History of acute renal failure and dehydration. 8. Protein-calorie malnutrition. 9. memory loss 10. gallstones 11. abdominal pain 12. leg edema 13. possible osteo PLAN IV antibiotics noted; ID follow up noted; awaiting further recommendations culture follow up reviewed pain management as is monitor for change and recommend po antibiotics given as well abdominal CT reviewed duplex of legs negative off IV hold dc impression, plan, and exam edited and reviewed in detail care discussed with RN Subjective Allergies: Coded Allergies: CEFTRIAXONE (Verified Allergy, Intermediate, SOB, HR-140bpm, face swollen , pt became red, 10/24/15) CODEINE (Verified Allergy, Intermediate, SWELLING, 01/03/11) LATEX (Verified Allergy, Intermediate, SWELLING, 01/03/11) PIPERACILLIN (Verified Allergy, Intermediate, Itching, 08/29/15) 08/29/15 tolerates Ceftaroline TAZOBACTAM (Verified Allergy, Intermediate, Itching, 01/29/15) POLYMYXIN B (Verified Allergy, Mild, Rash, 04/08/16) Suspected allergy reported by MD VANCOMYCIN (Verified Allergy, Mild, 07/15/14) ASPARAGINASE (Verified Allergy, Unknown, 01/28/14) CEFUROXIME (Unverified Allergy, Unknown, 04/19/16) IRON (Verified Allergy, Unknown, 01/28/14) Subjective dc held evaluation for osteo d/w ID Objective Last 24 Hour Vital Signs Date Time Temp Pulse Resp B/P Pulse Ox O2 Delivery O2 Flow Rate FiO2 04/30/16 06:06 98.2 04/30/16 04:00 98.1 95 18 124/76 96 Room Air 04/30/16 00:00 98.2 103 18 138/92 97 Room Air 04/29/16 20:00 97.9 100 22 134/67 98 Room Air 04/29/16 16:00 98.6 104 21 132/77 97 Room Air 04/29/16 12:03 98.0 98 20 135/86 99 Room Air 04/29/16 08:12 98.2 97 20 122/64 98 Room Air Intake and Output 04/29/16 04/30/16 19:00 07:00 Intake Total 660 ml 470 ml Output Total 550 ml Balance 660 ml -80 ml Intake Oral 360 ml 360 ml IV Total 300 ml 110 ml Output Stool Total 550 ml # Voids 2 3 Labs Test 04/28/16 04:00 04/29/16 05:00 Blood Urea Nitrogen 5 mg/dL (7-23) 4 mg/dL (7-23) Creatinine 0.6 mg/dL (0.5-0.9) 0.7 mg/dL (0.5-0.9) Estimat Glomerular Filtration Rate > 60 mL/min (>60) > 60 mL/min (>60) White Blood Count 8.7 K/UL (4.8-10.8) Red Blood Count 3.52 M/UL (4.20-5.40) Hemoglobin 9.8 G/DL (12.0-16.0) Hematocrit 29.9 % (37.0-47.0) Mean Corpuscular Volume 85 FL (80-99) Mean Corpuscular Hemoglobin 27.7 PG (27.0-31.0) Mean Corpuscular Hemoglobin Concent 32.6 G/DL (32.0-36.0) Red Cell Distribution Width 16.3 % (11.6-14.8) Platelet Count 262 K/UL (150-450) Mean Platelet Volume 8.0 FL (6.5-10.1) Neutrophils (%) (Auto) 62.0 % (45.0-75.0) Lymphocytes (%) (Auto) 25.7 % (20.0-45.0) Monocytes (%) (Auto) 5.6 % (1.0-10.0) Eosinophils (%) (Auto) 6.1 % (0.0-3.0) Basophils (%) (Auto) 0.6 % (0.0-2.0) Sodium Level 143 mEQ/L (135-145) Potassium Level 3.3 mEQ/L (3.4-4.9) Chloride Level 106 mEQ/L (98-107) Carbon Dioxide Level 23 mEQ/L (20-30) Anion Gap 14 (5-15) Glucose Level 69 mg/dL (74-106) Calcium Level 6.9 mg/dL (8.6-10.2) Height (Feet): 5 Height (Inches): 5.00 Weight (Pounds): 210 Objective GENERAL: The patient is a well-developed female, NAD; weak HEENT: Fairly negative. Extraocular movements are grossly intact. Oropharynx is otherwise moist. LUNGS: Fairly clear. No rhonchi or wheezes. good air entry CARDIAC: S1 and S2. RRR without murmurs or rubs. ABDOMEN: Soft, some RUQ tenderness, and nondistended. no HSM EXTREMITIES: No cyanosis or clubbing. some edema. NEUROLOGICAL: Paraplegia. alert and oriented reviewed and edited LUANN MIHCEL Apr 30, 2016 07:28
[2016-04-30] MEDS: Dronabinol 2.5mg Cap ORAL SCH ×2 (09:00→17:25)
[2016-04-30] MEDS: Heparin 5000 units/ml inj SUBQ SCH ×2 (09:00→22:22)
[2016-04-30] MEDS: Topiramate 25mg tab ORAL SCH ×2 (09:00→21:00)
--- NOTE | 2016-04-30 09:52 | General Surgery Progress Note ---
General Surgery-Progress Note Subjective Reason for Consult cholelithiasis Symptoms: pain same Additional Comments patient seen and examined. doing well. states that she is overall unchanged. still with n/v. no fever or chills. Objective Last 24 Hour Vital Signs Date Time Temp Pulse Resp B/P Pulse Ox O2 Delivery O2 Flow Rate FiO2 04/30/16 06:06 98.2 04/30/16 04:00 98.1 95 18 124/76 96 Room Air 04/30/16 00:00 98.2 103 18 138/92 97 Room Air 04/29/16 20:00 97.9 100 22 134/67 98 Room Air 04/29/16 16:00 98.6 104 21 132/77 97 Room Air 04/29/16 12:03 98.0 98 20 135/86 99 Room Air I&O Intake and Output 04/29/16 04/30/16 19:00 07:00 Intake Total 660 ml 470 ml Output Total 550 ml Balance 660 ml -80 ml Intake Oral 360 ml 360 ml IV Total 300 ml 110 ml Output Stool Total 550 ml # Voids 2 3 Drains: none Cardiovascular: RSR Respiratory: clear Abdomen: soft Extremities: no edema Plan Problems: (1) Abdominal pain Assessment & Plan: 40 year old female with abdominal pain, nausea, emesis. History of cholelithiasis. HIDA demonstrates biliary dyskinesia. Afebrile, HD stable, no leukocytosis, AST/ALT nml, lipase nml. Initial exam with RUQ tenderness on palpation but no tenderness today. Ultrasound performed and noted cholelithiasis but no signs of current or prior cholecystitis. given these findings would not currently recommend cholecystectomy. Can potentially have episodes of cholecystitis or gallstones may become symptomatic at later date but for now unlikely source of her pain. no surgical intervention necessary at this time. will sign off for now. thank you for allowing us to participate in Aster Guajardo's care. Jax Allison MD Apr 30, 2016 09:52
[2016-04-30 11:50] VITALS: BP 122/71
--- NOTE | 2016-04-30 11:56 | Infectious Diseases Prog Note ---
Assessment/Plan Assessment/Plan ASSESSMENT AND PLAN: 1. e.coli/morganella and klebsiella sacral wound infection, possible osteo, ct abdomen and pelvis with possible lumbar spine osteo/discitis - - called pathology and cannot locate bone biopsy to r/o sacral osteo - will f /u on biopsy if available - watch labs - wound treatment per plastic surgery - hx of multiple snf abx courses - meropenem and zyvox - day # 6 abx - tolerates meropenem so far - check final biopsy, ? treat as osteo - consider spine surgery evaluation for further recs about possible lumbar spine osteo/discitis and further imaging, w/u etc. - d/w pharmacy about abx 2. acinetobacter bacteremia, f/u blood cultures negative, s/p full tygacil course 3. nausea and vomiting - improved, gi w/u, gs on us 4. Weight loss, anemia, hx lois resolved 5. History of osteoarthritis and treatment. 6. Colostomy. 7. Paraplegia. 8. Anemia. 9. ? diabetes - patient denies dm hx, bs elevated only with infection per pt 10. Chronic pain management and chronic pain syndrome, anxiety 11. History of cholelithiasis. 12. Pain management for primary, opiate dependency 13. Multiple allergies to asparaginase, Rocephin, codeine, iron, Latex, piperacillin, tazobactam, and vancomycin. 14. wound care per protocol and plastic surgery 15. The case was discussed with RN 16. The case was discussed with the patient. 17. fh-nc, sh-negative, mar noted 18. notes and records reviewed Subjective Constitutional: Reports: fatigue, Denies: fever HEENT: Denies: congestion Respiratory: Denies: shortness of breath Cardiovascular: Denies: chest pain Gastrointestinal/Abdominal: Denies: nausea Neurologic: Denies: headache Skin: Reports: rash - no new rash Hematologic: Denies: bleeding Musculoskeletal: Denies: pain Allergies: Coded Allergies: CEFTRIAXONE (Verified Allergy, Intermediate, SOB, HR-140bpm, face swollen , pt became red, 10/24/15) CODEINE (Verified Allergy, Intermediate, SWELLING, 01/03/11) LATEX (Verified Allergy, Intermediate, SWELLING, 01/03/11) PIPERACILLIN (Verified Allergy, Intermediate, Itching, 08/29/15) 08/29/15 tolerates Ceftaroline TAZOBACTAM (Verified Allergy, Intermediate, Itching, 01/29/15) POLYMYXIN B (Verified Allergy, Mild, Rash, 04/08/16) Suspected allergy reported by VANCOMYCIN (Verified Allergy, Mild, 07/15/14) ASPARAGINASE (Verified Allergy, Unknown, 01/28/14) CEFUROXIME (Unverified Allergy, Unknown, 04/19/16) IRON (Verified Allergy, Unknown, 01/28/14) Objective Vital Signs Last 24 Hour Vital Signs Date Time Temp Pulse Resp B/P Pulse Ox O2 Delivery O2 Flow Rate FiO2 04/30/16 11:50 98.2 104 20 122/71 96 Room Air 04/30/16 06:06 98.2 04/30/16 04:00 98.1 95 18 124/76 96 Room Air 04/30/16 00:00 98.2 103 18 138/92 97 Room Air 04/29/16 20:00 97.9 100 22 134/67 98 Room Air 04/29/16 16:00 98.6 104 21 132/77 97 Room Air 04/29/16 12:03 98.0 98 20 135/86 99 Room Air Height (Feet): 5 Height (Inches): 5.00 Weight (Pounds): 210 General Appearance: no acute distress HEENT: normocephalic, atraumatic, anicteric, mucous membranes moist, PERRL, EOMI, pharynx normal, supple, no JVD Respiratory/Chest: lungs clear, normal breath sounds, no respiratory distress Cardiovascular: normal rate, regular rhythm, no gallop/murmur, no JVD Abdomen: normal bowel sounds, soft, non tender, no organomegaly, non distended Genitourinary: other - no bay Extremities: no cyanosis Skin: rash - no new rash, skin dry, other - wounds covered 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, alert, oriented x 3, responsive, motor weakness Lymphatic: no neck adenopathy Musculoskeletal: no effusion Objective hida - report noted Microbiology Date/Time Source Procedure Growth Status 04/20/16 05:00 Blood Blood Culture - Final NO GROWTH AFTER 5 DAYS Complete 04/19/16 19:00 Sacral Wound Gram Stain - Final Complete 04/19/16 19:00 Wound Culture - Final Escherichia Coli - Esbl Klebsiella Pneumoniae Morganella Morg Spp Morganii Complete Labs Test 04/28/16 04:00 04/29/16 05:00 Blood Urea Nitrogen 5 mg/dL (7-23) 4 mg/dL (7-23) Creatinine 0.6 mg/dL (0.5-0.9) 0.7 mg/dL (0.5-0.9) Estimat Glomerular Filtration Rate > 60 mL/min (>60) > 60 mL/min (>60) White Blood Count 8.7 K/UL (4.8-10.8) Red Blood Count 3.52 M/UL (4.20-5.40) Hemoglobin 9.8 G/DL (12.0-16.0) Hematocrit 29.9 % (37.0-47.0) Mean Corpuscular Volume 85 FL (80-99) Mean Corpuscular Hemoglobin 27.7 PG (27.0-31.0) Mean Corpuscular Hemoglobin Concent 32.6 G/DL (32.0-36.0) Red Cell Distribution Width 16.3 % (11.6-14.8) Platelet Count 262 K/UL (150-450) Mean Platelet Volume 8.0 FL (6.5-10.1) Neutrophils (%) (Auto) 62.0 % (45.0-75.0) Lymphocytes (%) (Auto) 25.7 % (20.0-45.0) Monocytes (%) (Auto) 5.6 % (1.0-10.0) Eosinophils (%) (Auto) 6.1 % (0.0-3.0) Basophils (%) (Auto) 0.6 % (0.0-2.0) Sodium Level 143 mEQ/L (135-145) Potassium Level 3.3 mEQ/L (3.4-4.9) Chloride Level 106 mEQ/L (98-107) Carbon Dioxide Level 23 mEQ/L (20-30) Anion Gap 14 (5-15) Glucose Level 69 mg/dL (74-106) Calcium Level 6.9 mg/dL (8.6-10.2) Current Medications Medications (Trade) Dose Ordered Sig/Pineda Route PRN Reason Start Time Stop Time Status Last Admin Dose Admin Acetaminophen (Tylenol) 650 mg Q4H PRN ORAL Mild Pain/Temp > 100.5 04/19/16 17:15 05/19/16 17:14 Al Hydroxide/Mg Hydroxide (Mylanta) 30 ml EVERY 4 HOURS PRN ORAL Heartburn 04/19/16 17:15 05/19/16 17:14 Dextrose (Dextrose 50%) STAT PRN IV Hypoglycemia 04/19/16 17:15 05/19/16 17:14 Diphenhydramine HCl (Benadryl) 25 mg Q3HR PRN IVP Itching 04/19/16 19:45 05/19/16 19:44 04/30/16 09:17 Dronabinol (Marinol) 2.5 mg BID ORAL 04/20/16 09:00 05/20/16 08:59 04/24/16 09:50 Heparin Sodium (Porcine) (Heparin 5000 units/ml) 5,000 units EVERY 12 HOURS SUBQ 04/19/16 21:00 05/19/16 20:59 04/29/16 20:53 Hydrocortisone (Hydrocortisone) 1 applic Q6H PRN TOPIC Itching 04/23/16 11:30 05/23/16 11:29 04/23/16 21:58 Hydromorphone HCl 2 mg 2 mg Q3H PRN IVP SEVERE PAIN 04/26/16 18:30 05/03/16 18:29 04/30/16 09:17 Linezolid 300 ml @ 300 mls/hr EVERY 12 HOURS IVPB 04/29/16 21:00 05/06/16 20:59 04/30/16 09:18 Magnesium Hydroxide (Mom) 30 ml DAILYPRN PRN ORAL Constipation 04/19/16 17:15 05/19/16 17:14 Meropenem/Sodium Chloride (Merrem/Sodium Chloride) 110 ml @ 220 mls/hr Q8H IVPB 04/29/16 19:00 05/04/16 18:59 04/30/16 03:17 Mirtazapine (Remeron) 15 mg BEDTIME ORAL 04/20/16 21:00 05/20/16 20:59 04/20/16 21:27 Ondansetron HCl (Zofran) 4 mg Q6H PRN IVP Nausea & Vomiting 04/19/16 17:15 05/19/16 17:14 04/28/16 05:15 Pantoprazole (Protonix) 40 mg DAILY ORAL 04/20/16 09:00 05/20/16 08:59 04/29/16 08:14 Sodium Hypochlorite (Dakin's Quarter Strength) 1 applic Q24H TOPIC 04/21/16 00:00 05/21/16 00:00 04/30/16 00:00 Topiramate (Topamax) 25 mg EVERY 12 HOURS ORAL 04/21/16 13:00 05/21/16 12:59 04/26/16 08:31 Zolpidem Tartrate (Ambien) 5 mg HSPRN PRN ORAL Insomnia 04/19/16 17:15 05/19/16 17:14 GRZEGORZ MARTINEZ Apr 30, 2016 11:55
[2016-04-30] MEDS ORDERED: MEROPENEM1 GM IV (15:57)
[2016-04-30 16:07] VITALS: BP 135/75
[2016-04-30 20:00] VITALS: BP 139/91
--- NOTE | 2016-04-30 20:05 | General Progress Note ---
Assessment/Plan Assessment/Plan Assessment - intermittent N/V - likely due to narcotics - Destruction of the L2 vertebra probably on the basis of acute osteomyelitis. - weight loss - abd pain - cholelithiasis - negative EGD/Colon 11/2105 - multiple decubs Recommendations - Abx - monitor LFT - Marinol and Remeron - Elevate HOB Subjective Allergies: Coded Allergies: CEFTRIAXONE (Verified Allergy, Intermediate, SOB, HR-140bpm, face swollen , pt became red, 10/24/15) CODEINE (Verified Allergy, Intermediate, SWELLING, 01/03/11) LATEX (Verified Allergy, Intermediate, SWELLING, 01/03/11) PIPERACILLIN (Verified Allergy, Intermediate, Itching, 08/29/15) 08/29/15 tolerates Ceftaroline TAZOBACTAM (Verified Allergy, Intermediate, Itching, 01/29/15) POLYMYXIN B (Verified Allergy, Mild, Rash, 04/08/16) Suspected allergy reported by MD VANCOMYCIN (Verified Allergy, Mild, 07/15/14) ASPARAGINASE (Verified Allergy, Unknown, 01/28/14) CEFUROXIME (Unverified Allergy, Unknown, 04/19/16) IRON (Verified Allergy, Unknown, 01/28/14) Subjective feels same tolerating po no abd complaints Objective Last 24 Hour Vital Signs Date Time Temp Pulse Resp B/P Pulse Ox O2 Delivery O2 Flow Rate FiO2 04/30/16 16:46 98.2 04/30/16 16:07 98.2 115 20 135/75 98 Room Air 04/30/16 11:50 98.2 104 20 122/71 96 Room Air 04/30/16 04:00 98.1 95 18 124/76 96 Room Air 04/30/16 00:00 98.2 103 18 138/92 97 Room Air Intake and Output 04/29/16 04/30/16 19:00 07:00 Intake Total 660 ml 470 ml Output Total 550 ml Balance 660 ml -80 ml Intake Oral 360 ml 360 ml IV Total 300 ml 110 ml Output Stool Total 550 ml # Voids 2 3 Height (Feet): 5 Height (Inches): 5.00 Weight (Pounds): 210 Objective WDWN NCAT supple CTA RRR Soft ND NT, (+) colostomy, (+) contracted PITER DEAN Apr 30, 2016 20:05
[2016-05-01] VITALS: BP 126/65
[2016-05-01] MEDS: Dakin's 0.125% Soln (Quarter Strength) 16oz TOPIC SCH
[2016-05-01] MEDS: DiphenhydrAMINE 50mg/ml Inj IVP PRN ×7 (02:19→23:46)
[2016-05-01] MEDS: Meropenem 1 GM in NS 110 ML IVPB SCH ×3 (03:01→19:11)
[2016-05-01 04:00] VITALS: BP 145/77
[2016-05-01 06:42] LABS: BASOPHILS % (AUTO) 1.2 % (0.0-2.0); LYMPHOCYTES % (AUTO) 26.7 % (20.0-45.0); MEAN CORPUSCULAR HEMOGLOBIN 27.3 PG (27.0-31.0); MEAN CORPUSCULAR VOLUME 85 FL (80-99); MEAN PLATELET VOLUME 7.1 FL (6.5-10.1); MONOCYTES % (AUTO) 4.6 % (1.0-10.0); NEUTROPHILS % (AUTO) 61.5 % (45.0-75.0); PLATELET COUNT 233 K/UL (150-450); RED BLOOD COUNT 3.63 M/UL (4.20-5.40); RED CELL DISTRIBUTION WIDTH 17.2 % (11.6-14.8); WHITE BLOOD COUNT 6.2 K/UL (4.8-10.8)
[2016-05-01 08:00] VITALS: BP 135/77
[2016-05-01 08:03] LABS: ANION GAP 13 (5-15); CALCIUM 7.2 mg/dL (8.6-10.2); CARBON DIOXIDE 24 mEQ/L (20-30); CHLORIDE 102 mEQ/L (98-107); CREATININE 0.9 mg/dL (0.5-0.9); GLOMERULAR FILTRATION RATE > 60 mL/min (>60); HEMOLYSIS 3; POTASSIUM 3.6 mEQ/L (3.4-4.9); SODIUM 139 mEQ/L (135-145)
--- NOTE | 2016-05-01 08:53 | General Progress Note ---
Assessment/Plan Assessment/Plan IMPRESSION: 1. Intractable nausea and vomiting. 2. Intractable pain. 3. Recent hip wound infection. 4. Paraplegia. 5. Anemia. 6. History of transfusion. 7. History of acute renal failure and dehydration. 8. Protein-calorie malnutrition. 9. memory loss 10. gallstones 11. abdominal pain 12. leg edema 13. possible osteo PLAN IV antibiotics noted; meropenem x 6 weeks ID follow up noted; appreciated culture follow up reviewed pain management as is monitor for change and recommend po antibiotics given as well; zyvox off IV dc today refuses SNF impression, plan, and exam edited and reviewed in detail care discussed with RN Subjective Allergies: Coded Allergies: CEFTRIAXONE (Verified Allergy, Intermediate, SOB, HR-140bpm, face swollen , pt became red, 10/24/15) CODEINE (Verified Allergy, Intermediate, SWELLING, 01/03/11) LATEX (Verified Allergy, Intermediate, SWELLING, 01/03/11) PIPERACILLIN (Verified Allergy, Intermediate, Itching, 08/29/15) 08/29/15 tolerates Ceftaroline TAZOBACTAM (Verified Allergy, Intermediate, Itching, 01/29/15) POLYMYXIN B (Verified Allergy, Mild, Rash, 04/08/16) Suspected allergy reported by MD VANCOMYCIN (Verified Allergy, Mild, 07/15/14) ASPARAGINASE (Verified Allergy, Unknown, 01/28/14) CEFUROXIME (Unverified Allergy, Unknown, 04/19/16) IRON (Verified Allergy, Unknown, 01/28/14) Subjective dc held evaluation for osteo noted d/w ID cleared Objective Last 24 Hour Vital Signs Date Time Temp Pulse Resp B/P Pulse Ox O2 Delivery O2 Flow Rate FiO2 05/01/16 08:00 97.8 109 19 135/77 99 Room Air 05/01/16 06:44 97.5 05/01/16 04:00 97.5 106 22 145/77 99 Room Air 05/01/16 00:00 97.3 113 22 126/65 97 Room Air 04/30/16 20:00 98.1 114 22 139/91 97 Room Air 04/30/16 16:07 98.2 115 20 135/75 98 Room Air 04/30/16 11:50 98.2 104 20 122/71 96 Room Air Intake and Output 04/30/16 05/01/16 19:00 07:00 Intake Total 1240 ml 1000 ml Output Total 800 ml 400 ml Balance 440 ml 600 ml Intake Oral 720 ml 480 ml IV Total 520 ml 520 ml Output Stool Total 800 ml 400 ml # Voids 3 Laboratory Tests 05/01/16 04:00: White Blood Count 6.2, Red Blood Count 3.63L, Hemoglobin 9.9L, Hematocrit 30.9L , Mean Corpuscular Volume 85, Mean Corpuscular Hemoglobin 27.3, Mean Corpuscular Hemoglobin Concent 32.0, Red Cell Distribution Width 17.2H, Platelet Count 233, Mean Platelet Volume 7.1, Neutrophils (%) (Auto) 61.5, Lymphocytes (%) (Auto) 26.7, Monocytes (%) (Auto) 4.6, Eosinophils (%) (Auto) 6.0H, Basophils (%) (Auto) 1.2, Erythrocyte Sedimentation Rate 80H, Sodium Level 139, Potassium Level 3.6, Chloride Level 102, Carbon Dioxide Level 24, Anion Gap 13, Blood Urea Nitrogen 5L, Creatinine 0.9, Estimat Glomerular Filtration Rate > 60, Glucose Level 92, Calcium Level 7.2L Height (Feet): 5 Height (Inches): 5.00 Weight (Pounds): 210 Objective GENERAL: The patient is a well-developed female, NAD; weak HEENT: Fairly negative. Extraocular movements are grossly intact. Oropharynx is otherwise moist. LUNGS: Fairly clear. No rhonchi or wheezes. good air entry CARDIAC: S1 and S2. RRR without murmurs or rubs. ABDOMEN: Soft, some RUQ tenderness, and nondistended. no HSM EXTREMITIES: No cyanosis or clubbing. some edema. NEUROLOGICAL: Paraplegia. alert and oriented reviewed and edited LUANN MICHEL May 01, 2016 08:53
[2016-05-01] MEDS: Dronabinol 2.5mg Cap ORAL SCH ×2 (09:00→18:00)
[2016-05-01] MEDS: Heparin 5000 units/ml inj SUBQ SCH ×2 (09:00→20:12)
[2016-05-01] MEDS: Topiramate 25mg tab ORAL SCH ×2 (09:35→20:27)
[2016-05-01 12:00] VITALS: BP 133/80
--- NOTE | 2016-05-01 12:27 | Infectious Diseases Prog Note ---
Assessment/Plan Assessment/Plan ASSESSMENT AND PLAN: 1. e.coli/morganella and klebsiella sacral wound infection, possible osteo, ct abdomen and pelvis with possible lumbar spine osteo/discitis - - called pathology and cannot locate bone biopsy to r/o sacral osteo - watch labs - wound treatment per plastic surgery - hx of multiple manager terminal abx courses - meropenem, day # 7 abx - tolerates meropenem so far - check final biopsy, ? treat as osteo since cannot find biopsy results - consider spine surgery evaluation for further recs about possible lumbar spine osteo/discitis and further imaging, w/u etc. - plan on 5 weeks of meropenem upon discharge and treat as osteo for total of 6 weeks 2. acinetobacter bacteremia, f/u blood cultures negative, s/p full tygacil course 3. nausea and vomiting - improved, gi w/u, gs on us 4. Weight loss, anemia, hx lois resolved 5. History of osteoarthritis and treatment. 6. Colostomy. 7. Paraplegia. 8. Anemia. 9. ? diabetes - patient denies dm hx, bs elevated only with infection per pt 10. Chronic pain management and chronic pain syndrome, anxiety 11. History of cholelithiasis. 12. Pain management for primary, opiate dependency 13. Multiple allergies to asparaginase, Rocephin, codeine, iron, Latex, piperacillin, tazobactam, and vancomycin. 14. wound care per protocol and plastic surgery 15. The case was discussed with RN 16. The case was discussed with the patient. 17. fh-nc, sh-negative, mar noted 18. notes and records reviewed Subjective Constitutional: Denies: fever HEENT: Denies: congestion Respiratory: Denies: shortness of breath Cardiovascular: Denies: chest pain Gastrointestinal/Abdominal: Reports: other - + colostomy, Denies: nausea, vomiting Neurologic: Denies: headache Psychiatric: Denies: depression Skin: Reports: other - some itching, rash - no rash progression Hematologic: Denies: bleeding Musculoskeletal: Denies: pain Allergies: Coded Allergies: CEFTRIAXONE (Verified Allergy, Intermediate, SOB, HR-140bpm, face swollen , pt became red, 10/24/15) CODEINE (Verified Allergy, Intermediate, SWELLING, 01/03/11) LATEX (Verified Allergy, Intermediate, SWELLING, 01/03/11) PIPERACILLIN (Verified Allergy, Intermediate, Itching, 08/29/15) 08/29/15 tolerates Ceftaroline TAZOBACTAM (Verified Allergy, Intermediate, Itching, 01/29/15) POLYMYXIN B (Verified Allergy, Mild, Rash, 04/08/16) Suspected allergy reported by VANCOMYCIN (Verified Allergy, Mild, 07/15/14) ASPARAGINASE (Verified Allergy, Unknown, 01/28/14) CEFUROXIME (Unverified Allergy, Unknown, 04/19/16) IRON (Verified Allergy, Unknown, 01/28/14) Objective Vital Signs Last 24 Hour Vital Signs Date Time Temp Pulse Resp B/P Pulse Ox O2 Delivery O2 Flow Rate FiO2 05/01/16 12:00 97.9 113 20 133/80 98 Room Air 05/01/16 08:00 97.8 109 19 135/77 99 Room Air 05/01/16 06:44 97.5 05/01/16 04:00 97.5 106 22 145/77 99 Room Air 05/01/16 00:00 97.3 113 22 126/65 97 Room Air 04/30/16 20:00 98.1 114 22 139/91 97 Room Air 04/30/16 16:07 98.2 115 20 135/75 98 Room Air Height (Feet): 5 Height (Inches): 5.00 Weight (Pounds): 210 General Appearance: no acute distress HEENT: normocephalic, atraumatic, anicteric, mucous membranes moist, PERRL, EOMI, pharynx normal, supple, no JVD Respiratory/Chest: lungs clear, normal breath sounds, no respiratory distress, no accessory muscle use Cardiovascular: normal rate, regular rhythm Abdomen: normal bowel sounds, soft, non tender, no organomegaly, non distended Genitourinary: other - no bay Extremities: no cyanosis Skin: rash - no rash progression 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, alert, oriented x 3, responsive, motor weakness Lymphatic: no neck adenopathy Musculoskeletal: no effusion Objective hida - report noted Microbiology Date/Time Source Procedure Growth Status 04/20/16 05:00 Blood Blood Culture - Final NO GROWTH AFTER 5 DAYS Complete 04/19/16 19:00 Sacral Wound Gram Stain - Final Complete 04/19/16 19:00 Wound Culture - Final Escherichia Coli - Esbl Klebsiella Pneumoniae Morganella Morg Spp Morganii Complete Labs Test 04/29/16 05:00 05/01/16 04:00 White Blood Count 8.7 K/UL (4.8-10.8) 6.2 K/UL (4.8-10.8) Red Blood Count 3.52 M/UL (4.20-5.40) 3.63 M/UL (4.20-5.40) Hemoglobin 9.8 G/DL (12.0-16.0) 9.9 G/DL (12.0-16.0) Hematocrit 29.9 % (37.0-47.0) 30.9 % (37.0-47.0) Mean Corpuscular Volume 85 FL (80-99) 85 FL (80-99) Mean Corpuscular Hemoglobin 27.7 PG (27.0-31.0) 27.3 PG (27.0-31.0) Mean Corpuscular Hemoglobin Concent 32.6 G/DL (32.0-36.0) 32.0 G/DL (32.0-36.0) Red Cell Distribution Width 16.3 % (11.6-14.8) 17.2 % (11.6-14.8) Platelet Count 262 K/UL (150-450) 233 K/UL (150-450) Mean Platelet Volume 8.0 FL (6.5-10.1) 7.1 FL (6.5-10.1) Neutrophils (%) (Auto) 62.0 % (45.0-75.0) 61.5 % (45.0-75.0) Lymphocytes (%) (Auto) 25.7 % (20.0-45.0) 26.7 % (20.0-45.0) Monocytes (%) (Auto) 5.6 % (1.0-10.0) 4.6 % (1.0-10.0) Eosinophils (%) (Auto) 6.1 % (0.0-3.0) 6.0 % (0.0-3.0) Basophils (%) (Auto) 0.6 % (0.0-2.0) 1.2 % (0.0-2.0) Sodium Level 143 mEQ/L (135-145) 139 mEQ/L (135-145) Potassium Level 3.3 mEQ/L (3.4-4.9) 3.6 mEQ/L (3.4-4.9) Chloride Level 106 mEQ/L (98-107) 102 mEQ/L (98-107) Carbon Dioxide Level 23 mEQ/L (20-30) 24 mEQ/L (20-30) Anion Gap 14 (5-15) 13 (5-15) Blood Urea Nitrogen 4 mg/dL (7-23) 5 mg/dL (7-23) Creatinine 0.7 mg/dL (0.5-0.9) 0.9 mg/dL (0.5-0.9) Estimat Glomerular Filtration Rate > 60 mL/min (>60) > 60 mL/min (>60) Glucose Level 69 mg/dL (74-106) 92 mg/dL (74-106) Calcium Level 6.9 mg/dL (8.6-10.2) 7.2 mg/dL (8.6-10.2) Erythrocyte Sedimentation Rate 80 MM/HR (0-20) Laboratory Tests Test 05/01/16 04:00 White Blood Count 6.2 K/UL (4.8-10.8) Red Blood Count 3.63 M/UL (4.20-5.40) L Hemoglobin 9.9 G/DL (12.0-16.0) L Hematocrit 30.9 % (37.0-47.0) L Mean Corpuscular Volume 85 FL (80-99) Mean Corpuscular Hemoglobin 27.3 PG (27.0-31.0) Mean Corpuscular Hemoglobin Concent 32.0 G/DL (32.0-36.0) Red Cell Distribution Width 17.2 % (11.6-14.8) H Platelet Count 233 K/UL (150-450) Mean Platelet Volume 7.1 FL (6.5-10.1) Neutrophils (%) (Auto) 61.5 % (45.0-75.0) Lymphocytes (%) (Auto) 26.7 % (20.0-45.0) Monocytes (%) (Auto) 4.6 % (1.0-10.0) Eosinophils (%) (Auto) 6.0 % (0.0-3.0) H Basophils (%) (Auto) 1.2 % (0.0-2.0) Erythrocyte Sedimentation Rate 80 MM/HR (0-20) H Sodium Level 139 mEQ/L (135-145) Potassium Level 3.6 mEQ/L (3.4-4.9) Chloride Level 102 mEQ/L (98-107) Carbon Dioxide Level 24 mEQ/L (20-30) Anion Gap 13 (5-15) Blood Urea Nitrogen 5 mg/dL (7-23) L Creatinine 0.9 mg/dL (0.5-0.9) Estimat Glomerular Filtration Rate > 60 mL/min (>60) Glucose Level 92 mg/dL (74-106) Calcium Level 7.2 mg/dL (8.6-10.2) L Current Medications Medications (Trade) Dose Ordered Sig/Pineda Route PRN Reason Start Time Stop Time Status Last Admin Dose Admin Acetaminophen (Tylenol) 650 mg Q4H PRN ORAL Mild Pain/Temp > 100.5 04/19/16 17:15 05/19/16 17:14 Al Hydroxide/Mg Hydroxide (Mylanta) 30 ml EVERY 4 HOURS PRN ORAL Heartburn 04/19/16 17:15 05/19/16 17:14 Dextrose (Dextrose 50%) STAT PRN IV Hypoglycemia 04/19/16 17:15 05/19/16 17:14 Diphenhydramine HCl (Benadryl) 25 mg Q3H PRN IVP Itching 04/30/16 16:15 05/19/16 19:44 05/01/16 09:22 Dronabinol (Marinol) 2.5 mg BID ORAL 04/20/16 09:00 05/20/16 08:59 04/24/16 09:50 Heparin Sodium (Porcine) (Heparin 5000 units/ml) 5,000 units EVERY 12 HOURS SUBQ 04/19/16 21:00 05/19/16 20:59 04/30/16 22:22 Hydrocortisone (Hydrocortisone) 1 applic Q6H PRN TOPIC Itching 04/23/16 11:30 05/23/16 11:29 04/23/16 21:58 Hydromorphone HCl 2 mg 2 mg Q3H PRN IVP SEVERE PAIN 04/26/16 18:30 05/03/16 18:29 05/01/16 09:22 Linezolid 300 ml @ 300 mls/hr EVERY 12 HOURS IVPB 04/29/16 21:00 05/06/16 20:59 05/01/16 09:22 Magnesium Hydroxide (Mom) 30 ml DAILYPRN PRN ORAL Constipation 04/19/16 17:15 05/19/16 17:14 Meropenem/Sodium Chloride (Merrem/Sodium Chloride) 110 ml @ 220 mls/hr Q8H IVPB 04/29/16 19:00 05/04/16 18:59 05/01/16 03:01 Mirtazapine (Remeron) 15 mg BEDTIME ORAL 04/20/16 21:00 05/20/16 20:59 04/20/16 21:27 Ondansetron HCl (Zofran) 4 mg Q6H PRN IVP Nausea & Vomiting 04/19/16 17:15 05/19/16 17:14 04/28/16 05:15 Pantoprazole (Protonix) 40 mg DAILY ORAL 04/20/16 09:00 05/20/16 08:59 05/01/16 09:28 Sodium Hypochlorite (Dakin's Quarter Strength) 1 applic Q24H TOPIC 04/21/16 00:00 05/21/16 00:00 04/30/16 00:00 Topiramate (Topamax) 25 mg EVERY 12 HOURS ORAL 04/21/16 13:00 05/21/16 12:59 05/01/16 09:35 Zolpidem Tartrate (Ambien) 5 mg HSPRN PRN ORAL Insomnia 04/19/16 17:15 05/19/16 17:14 GRZEGORZ MARTINEZ May 01, 2016 12:27
[2016-05-01 16:00] VITALS: BP 143/83
[2016-05-01] MEDS ORDERED: NS 275ml ONE (16:03)
[2016-05-01] MEDS ORDERED: Tubing IV Secondary IV ONE (16:03)
--- NOTE | 2016-05-01 17:08 | Diagnostic Imaging Report ---
APPROVED REPORT CPT Code: 73076 Present Symptoms Lower Extremity Edema: Bilateral Shortness of breath Comments: Paraplegia. Bilateral leg edema, right more than left. Technically difficult study due to thigh width and bilateral edema (right leg more than left). RIGHT LEG: Venous imaging reveals a patent deep venous system. There is no evidence of thrombus within the femoral, popliteal or tibial segments. The greater saphenous vein is also within normal limits. Doppler indicates normal spontaneous flow within these segments. The mid to distal superficial femoral vein was not well visualized. The popliteal vein and calf veins were also not well visualized. LEFT LEG: Venous imaging reveals a patent deep venous system. There is no evidence of thrombus within the femoral, popliteal or tibial segments. The greater saphenous vein is also within normal limits. Doppler indicates normal spontaneous flow within these segments. The distal superficial femoral vein was not well visualized. The calf veins were also not well visualized.
[2016-05-01 20:00] VITALS: BP 136/92
[2016-05-01] MEDS ORDERED: Cathflo Alteplase 2mg Inj INJ ONE (20:30)
[2016-05-02] VITALS: BP 114/73
[2016-05-02] MEDS: Dakin's 0.125% Soln (Quarter Strength) 16oz TOPIC SCH
[2016-05-02] MEDS: DiphenhydrAMINE 50mg/ml Inj IVP PRN ×6 (02:56→19:49)
[2016-05-02] MEDS: Meropenem 1 GM in NS 110 ML IVPB SCH ×3 (02:57→19:40)
[2016-05-02 04:00] VITALS: BP 139/74
[2016-05-02 08:00] VITALS: BP 143/85
[2016-05-02] MEDS: Topiramate 25mg tab ORAL SCH ×3 (09:00→22:00)
[2016-05-02] MEDS: Heparin 5000 units/ml inj SUBQ SCH ×2 (09:00→22:00)
[2016-05-02] MEDS: Dronabinol 2.5mg Cap ORAL SCH ×2 (09:00→18:00)
--- NOTE | 2016-05-02 10:49 | General Progress Note ---
Assessment/Plan Assessment/Plan IMPRESSION: 1. Intractable nausea and vomiting. 2. Intractable pain. 3. Recent hip wound infection. 4. Paraplegia. 5. Anemia. 6. History of transfusion. 7. History of acute renal failure and dehydration. 8. Protein-calorie malnutrition. 9. memory loss 10. gallstones 11. abdominal pain 12. leg edema 13. possible osteo PLAN IV antibiotics noted; meropenem x 6 weeks for osteo ID follow up noted; appreciated culture follow up reviewed pain management as is po antibiotics given as well; zyvox refusing dc to home; stable for dc to home with wound care and iv antibiotics refuses SNF impression, plan, and exam edited and reviewed in detail care discussed with RN Subjective Allergies: Coded Allergies: CEFTRIAXONE (Verified Allergy, Intermediate, SOB, HR-140bpm, face swollen , pt became red, 10/24/15) CODEINE (Verified Allergy, Intermediate, SWELLING, 01/03/11) LATEX (Verified Allergy, Intermediate, SWELLING, 01/03/11) PIPERACILLIN (Verified Allergy, Intermediate, Itching, 08/29/15) 08/29/15 tolerates Ceftaroline TAZOBACTAM (Verified Allergy, Intermediate, Itching, 01/29/15) POLYMYXIN B (Verified Allergy, Mild, Rash, 04/08/16) Suspected allergy reported by VANCOMYCIN (Verified Allergy, Mild, 07/15/14) ASPARAGINASE (Verified Allergy, Unknown, 01/28/14) CEFUROXIME (Unverified Allergy, Unknown, 04/19/16) IRON (Verified Allergy, Unknown, 01/28/14) Subjective refusing dc to home home health may not be able to manage patient informed Objective Last 24 Hour Vital Signs Date Time Temp Pulse Resp B/P Pulse Ox O2 Delivery O2 Flow Rate FiO2 05/02/16 09:56 98.1 05/02/16 08:00 98.1 103 21 143/85 95 Room Air 05/02/16 04:00 97.7 103 20 139/74 96 Room Air 05/02/16 00:00 97.5 112 18 114/73 96 Room Air 05/01/16 20:00 98.4 107 20 136/92 97 Room Air 05/01/16 16:00 97.7 111 20 143/83 05/01/16 12:00 97.9 113 20 133/80 98 Room Air Intake and Output 05/01/16 05/02/16 18:59 06:59 Intake Total 650 ml 820 ml Balance 650 ml 820 ml Intake Oral 240 ml 600 ml IV Total 410 ml 220 ml # Voids 6 Height (Feet): 5 Height (Inches): 5.00 Weight (Pounds): 210 Objective GENERAL: The patient is a well-developed female, NAD; weak HEENT: Fairly negative. Extraocular movements are grossly intact. Oropharynx is otherwise moist. LUNGS: Fairly clear. No rhonchi or wheezes. good air entry CARDIAC: S1 and S2. RRR without murmurs or rubs. ABDOMEN: Soft, some RUQ tenderness, and nondistended. no HSM EXTREMITIES: No cyanosis or clubbing. some edema. NEUROLOGICAL: Paraplegia. alert and oriented no clear rash reviewed and edited LUANN MICHEL May 02, 2016 10:49
[2016-05-02 12:00] VITALS: BP 136/75
[2016-05-02 16:00] VITALS: BP 129/81
[2016-05-02 20:00] VITALS: BP 138/89
[2016-05-03] VITALS: BP 125/79
[2016-05-03] MEDS: Dakin's 0.125% Soln (Quarter Strength) 16oz TOPIC SCH (00:09)
[2016-05-03] MEDS: DiphenhydrAMINE 50mg/ml Inj IVP PRN ×5 (00:10→12:40)
[2016-05-03] MEDS: Meropenem 1 GM in NS 110 ML IVPB SCH ×2 (03:20→10:27)
[2016-05-03 04:00] VITALS: BP 118/81
[2016-05-03 08:00] VITALS: BP 118/77
--- NOTE | 2016-05-03 08:23 | General Progress Note ---
Assessment/Plan Assessment/Plan IMPRESSION: 1. Intractable nausea and vomiting. 2. Intractable pain. 3. Recent hip wound infection. 4. Paraplegia. 5. Anemia. 6. History of transfusion. 7. History of acute renal failure and dehydration. 8. Protein-calorie malnutrition. 9. memory loss 10. gallstones 11. abdominal pain 12. leg edema 13. possible osteo PLAN IV antibiotics noted; meropenem x 6 weeks for osteo ID follow up noted; appreciated culture follow up reviewed pain management as is po antibiotics given as well; zyvox rx given home health agreeable to dc today impression, plan, and exam edited and reviewed in detail care discussed with RN Subjective Allergies: Coded Allergies: CEFTRIAXONE (Verified Allergy, Intermediate, SOB, HR-140bpm, face swollen , pt became red, 10/24/15) CODEINE (Verified Allergy, Intermediate, SWELLING, 01/03/11) LATEX (Verified Allergy, Intermediate, SWELLING, 01/03/11) PIPERACILLIN (Verified Allergy, Intermediate, Itching, 08/29/15) 08/29/15 tolerates Ceftaroline TAZOBACTAM (Verified Allergy, Intermediate, Itching, 01/29/15) POLYMYXIN B (Verified Allergy, Mild, Rash, 04/08/16) Suspected allergy reported by MD VANCOMYCIN (Verified Allergy, Mild, 07/15/14) ASPARAGINASE (Verified Allergy, Unknown, 01/28/14) CEFUROXIME (Unverified Allergy, Unknown, 04/19/16) IRON (Verified Allergy, Unknown, 01/28/14) Subjective comfortable no rash tolerating meropenem Objective Last 24 Hour Vital Signs Date Time Temp Pulse Resp B/P Pulse Ox O2 Delivery O2 Flow Rate FiO2 05/03/16 04:00 97.3 111 22 118/81 96 Room Air 05/03/16 00:00 97.5 105 22 125/79 96 Room Air 05/02/16 20:00 98.1 105 22 138/89 97 Room Air 05/02/16 16:43 98.1 05/02/16 16:00 97.7 100 18 129/81 98 Room Air 05/02/16 12:00 97.7 109 20 136/75 97 Room Air Intake and Output 05/02/16 05/03/16 19:00 07:00 Intake Total 580 ml Output Total 400 ml Balance 580 ml -400 ml Intake Oral 360 ml IV Total 220 ml Output Stool Total 400 ml # Voids 3 Height (Feet): 5 Height (Inches): 5.00 Weight (Pounds): 210 Objective GENERAL: The patient is a well-developed female, NAD; weak HEENT: Fairly negative. Extraocular movements are grossly intact. Oropharynx is otherwise moist. LUNGS: Fairly clear. No rhonchi or wheezes. good air entry CARDIAC: S1 and S2. RRR without murmurs or rubs. ABDOMEN: Soft, some RUQ tenderness, and nondistended. no HSM EXTREMITIES: No cyanosis or clubbing. some edema. NEUROLOGICAL: Paraplegia. alert and oriented no clear rash reviewed and edited LUANN MICHEL May 03, 2016 08:23
[2016-05-03] MEDS: Heparin 5000 units/ml inj SUBQ SCH (09:00)
[2016-05-03] MEDS: Dronabinol 2.5mg Cap ORAL SCH (09:00)
[2016-05-03] MEDS: Topiramate 25mg tab ORAL SCH (09:00)
[2016-05-03 12:00] VITALS: BP 128/69
--- NOTE | 2016-05-03 14:22 | Infectious Diseases Prog Note ---
Assessment/Plan Assessment/Plan ASSESSMENT AND PLAN: 1. 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 treat as osteo since cannot find biopsy results - consider spine surgery evaluation for further recs about possible lumbar spine osteo/discitis and further imaging, w/u etc. - plan on 33 days of meropenem upon discharge and treat as osteo for total of 6 weeks - d/w case management about abx, weekly labs and length of time - f/u in wound care clinic with Dr. Cristobal, d/w patient 2. acinetobacter bacteremia, f/u blood cultures negative, s/p full tygacil course 3. nausea and vomiting - improved, gi w/u, gs on us 4. Weight loss, anemia, hx lois resolved 5. History of osteoarthritis and treatment. 6. Colostomy. 7. Paraplegia. 8. Anemia. 9. ? diabetes - patient denies dm hx, bs elevated only with infection per pt 10. Chronic pain management and chronic pain syndrome, anxiety 11. History of cholelithiasis. 12. Pain management for primary, opiate dependency 13. Multiple allergies to asparaginase, Rocephin, codeine, iron, Latex, piperacillin, tazobactam, and vancomycin. 14. wound care per protocol and plastic surgery 15. The case was discussed with RN 16. The case was discussed with the patient. 17. fh-nc, sh-negative, mar noted 18. notes and records reviewed Subjective Constitutional: Denies: fever Respiratory: Denies: shortness of breath Cardiovascular: Denies: chest pain Gastrointestinal/Abdominal: Reports: other - + colostomy, Denies: nausea, vomiting Neurologic: Denies: headache Psychiatric: Denies: depression Skin: Reports: rash - with some itching Hematologic: Denies: bleeding Musculoskeletal: Denies: pain Allergies: Coded Allergies: CEFTRIAXONE (Verified Allergy, Intermediate, SOB, HR-140bpm, face swollen , pt became red, 10/24/15) CODEINE (Verified Allergy, Intermediate, SWELLING, 01/03/11) LATEX (Verified Allergy, Intermediate, SWELLING, 01/03/11) PIPERACILLIN (Verified Allergy, Intermediate, Itching, 08/29/15) 08/29/15 tolerates Ceftaroline TAZOBACTAM (Verified Allergy, Intermediate, Itching, 01/29/15) POLYMYXIN B (Verified Allergy, Mild, Rash, 04/08/16) Suspected allergy reported by VANCOMYCIN (Verified Allergy, Mild, 07/15/14) ASPARAGINASE (Verified Allergy, Unknown, 01/28/14) CEFUROXIME (Unverified Allergy, Unknown, 04/19/16) IRON (Verified Allergy, Unknown, 01/28/14) Objective Vital Signs Last 24 Hour Vital Signs Date Time Temp Pulse Resp B/P Pulse Ox O2 Delivery O2 Flow Rate FiO2 05/03/16 13:10 97.7 05/03/16 12:00 97.7 119 20 128/69 97 Room Air 05/03/16 08:00 97.7 98 19 118/77 100 Room Air 05/03/16 04:00 97.3 111 22 118/81 96 Room Air 05/03/16 00:00 97.5 105 22 125/79 96 Room Air 05/02/16 20:00 98.1 105 22 138/89 97 Room Air 05/02/16 16:00 97.7 100 18 129/81 98 Room Air Height (Feet): 5 Height (Inches): 5.00 Weight (Pounds): 210 General Appearance: no acute distress HEENT: normocephalic, atraumatic, anicteric, mucous membranes moist, PERRL, EOMI, pharynx normal, supple, no JVD Respiratory/Chest: lungs clear, normal breath sounds, no respiratory distress, no accessory muscle use Cardiovascular: normal rate, regular rhythm, no gallop/murmur Abdomen: normal bowel sounds, soft, non tender, no organomegaly, non distended Extremities: no cyanosis Skin: rash - rash and dry skin about the same, other - wounds covered 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 normal, alert, oriented x 3, responsive, motor weakness Lymphatic: no neck adenopathy Musculoskeletal: no effusion Objective hida - report noted Microbiology Date/Time Source Procedure Growth Status 04/20/16 05:00 Blood Blood Culture - Final NO GROWTH AFTER 5 DAYS Complete 04/19/16 19:00 Sacral Wound Gram Stain - Final Complete 04/19/16 19:00 Wound Culture - Final Escherichia Coli - Esbl Klebsiella Pneumoniae Morganella Morg Spp Morganii Complete Labs Test 05/01/16 04:00 White Blood Count 6.2 K/UL (4.8-10.8) Red Blood Count 3.63 M/UL (4.20-5.40) Hemoglobin 9.9 G/DL (12.0-16.0) Hematocrit 30.9 % (37.0-47.0) Mean Corpuscular Volume 85 FL (80-99) Mean Corpuscular Hemoglobin 27.3 PG (27.0-31.0) Mean Corpuscular Hemoglobin Concent 32.0 G/DL (32.0-36.0) Red Cell Distribution Width 17.2 % (11.6-14.8) Platelet Count 233 K/UL (150-450) Mean Platelet Volume 7.1 FL (6.5-10.1) Neutrophils (%) (Auto) 61.5 % (45.0-75.0) Lymphocytes (%) (Auto) 26.7 % (20.0-45.0) Monocytes (%) (Auto) 4.6 % (1.0-10.0) Eosinophils (%) (Auto) 6.0 % (0.0-3.0) Basophils (%) (Auto) 1.2 % (0.0-2.0) Erythrocyte Sedimentation Rate 80 MM/HR (0-20) Sodium Level 139 mEQ/L (135-145) Potassium Level 3.6 mEQ/L (3.4-4.9) Chloride Level 102 mEQ/L (98-107) Carbon Dioxide Level 24 mEQ/L (20-30) Anion Gap 13 (5-15) Blood Urea Nitrogen 5 mg/dL (7-23) Creatinine 0.9 mg/dL (0.5-0.9) Estimat Glomerular Filtration Rate > 60 mL/min (>60) Glucose Level 92 mg/dL (74-106) Calcium Level 7.2 mg/dL (8.6-10.2) Current Medications Medications (Trade) Dose Ordered Sig/Pineda Route PRN Reason Start Time Stop Time Status Last Admin Dose Admin Acetaminophen (Tylenol) 650 mg Q4H PRN ORAL Mild Pain/Temp > 100.5 04/19/16 17:15 05/19/16 17:14 Al Hydroxide/Mg Hydroxide (Mylanta) 30 ml EVERY 4 HOURS PRN ORAL Heartburn 04/19/16 17:15 05/19/16 17:14 Dextrose (Dextrose 50%) STAT PRN IV Hypoglycemia 04/19/16 17:15 05/19/16 17:14 Diphenhydramine HCl (Benadryl) 25 mg Q3H PRN IVP Itching 04/30/16 16:15 05/19/16 19:44 05/03/16 12:40 Dronabinol (Marinol) 2.5 mg BID ORAL 04/20/16 09:00 05/20/16 08:59 04/24/16 09:50 Heparin Sodium (Porcine) (Heparin 5000 units/ml) 5,000 units EVERY 12 HOURS SUBQ 04/19/16 21:00 05/19/16 20:59 05/02/16 22:00 Hydrocortisone (Hydrocortisone) 1 applic Q6H PRN TOPIC Itching 04/23/16 11:30 05/23/16 11:29 04/23/16 21:58 Hydromorphone HCl 2 mg 2 mg Q3H PRN IVP SEVERE PAIN 04/26/16 18:30 05/03/16 18:29 05/03/16 12:40 Magnesium Hydroxide (Mom) 30 ml DAILYPRN PRN ORAL Constipation 04/19/16 17:15 05/19/16 17:14 Meropenem/Sodium Chloride (Merrem/Sodium Chloride) 110 ml @ 220 mls/hr Q8H IVPB 04/29/16 19:00 05/08/16 18:59 05/03/16 10:27 Mirtazapine (Remeron) 15 mg BEDTIME ORAL 04/20/16 21:00 05/20/16 20:59 04/20/16 21:27 Ondansetron HCl (Zofran) 4 mg Q6H PRN IVP Nausea & Vomiting 04/19/16 17:15 05/19/16 17:14 05/02/16 17:24 Pantoprazole (Protonix) 40 mg DAILY ORAL 04/20/16 09:00 05/20/16 08:59 05/03/16 09:44 Sodium Hypochlorite (Dakin's Quarter Strength) applic Q24H TOPIC 04/21/16 00:00 05/21/16 00:00 05/03/16 00:09 Topiramate (Topamax) 25 mg EVERY 12 HOURS ORAL 04/21/16 13:00 05/21/16 12:59 05/01/16 09:35 Zolpidem Tartrate (Ambien) 5 mg HSPRN PRN ORAL Insomnia 04/19/16 17:15 05/19/16 17:14 GRZEGORZ MARTINEZ May 03, 2016 14:22
--- NOTE | 2016-05-03 20:36 | General Progress Note ---
Assessment/Plan Assessment/Plan Assessment - Destruction of the L2 vertebra probably on the basis of acute osteomyelitis. - weight loss - abd pain and vomiting - improved - cholelithiasis - negative EGD/Colon 11/2105 - multiple decubs Recommendations - Abx - monitor LFT - Marinol and Remeron - Elevate HOB - return if abdominal Sx worsen Subjective Allergies: Coded Allergies: CEFTRIAXONE (Verified Allergy, Intermediate, SOB, HR-140bpm, face swollen , pt became red, 10/24/15) CODEINE (Verified Allergy, Intermediate, SWELLING, 01/03/11) LATEX (Verified Allergy, Intermediate, SWELLING, 01/03/11) PIPERACILLIN (Verified Allergy, Intermediate, Itching, 08/29/15) 08/29/15 tolerates Ceftaroline TAZOBACTAM (Verified Allergy, Intermediate, Itching, 01/29/15) POLYMYXIN B (Verified Allergy, Mild, Rash, 04/08/16) Suspected allergy reported by MD VANCOMYCIN (Verified Allergy, Mild, 07/15/14) ASPARAGINASE (Verified Allergy, Unknown, 01/28/14) CEFUROXIME (Unverified Allergy, Unknown, 04/19/16) IRON (Verified Allergy, Unknown, 01/28/14) Subjective feels same tolerating po no abd complaints for d/c today Objective Last 24 Hour Vital Signs Date Time Temp Pulse Resp B/P Pulse Ox O2 Delivery O2 Flow Rate FiO2 05/03/16 13:10 97.7 05/03/16 12:00 97.7 119 20 128/69 97 Room Air 05/03/16 08:00 97.7 98 19 118/77 100 Room Air 05/03/16 04:00 97.3 111 22 118/81 96 Room Air 05/03/16 00:00 97.5 105 22 125/79 96 Room Air Intake and Output 05/02/16 05/03/16 19:00 07:00 Intake Total 580 ml Output Total 400 ml Balance 580 ml -400 ml Intake Oral 360 ml IV Total 220 ml Output Stool Total 400 ml # Voids 3 Height (Feet): 5 Height (Inches): 5.00 Weight (Pounds): 210 Objective WDWN NCAT supple CTA RRR Soft ND NT, (+) colostomy, (+) contracted PITER DEAN May 03, 2016 20:36
--- NOTE | 2016-05-05 08:38 | Discharge Summary ---
Discharge Summary Hospital Course Date of Admission Apr 19, 2016 at 09:12 Date of Discharge May 03, 2016 at 15:45 Admitting Diagnosis intractable pain/vomiting/dehydrating HPI Ananya Guajardo is a 41 year old female who was admitted on Apr 19, 2016 at 09 :12 for Intractable Pain,Vomiting,Dehydration Hospital Course dc summary dictated # [id number] Discharge Medications Continued Medications: Meropenem (Meropenem) 1 Gm Vial 1 GM IV EVERY 8 HOURS for 35 Days, VIAL Discontinued Medications: Amikacin Sulfate (Amikacin Sulfate) 1,000 Mg/4 Ml Vial 1500 MG IJ Q36H for 14 Days, VIAL Linezolid* (Zyvox*) 600 Mg Tablet 600 MG ORAL BID, TAB Metronidazole* (Flagyl*) 500 Mg Tablet 500 MG ORAL TID, TAB Tigecycline (Tygacil) 50 Mg Vial 50 MG IVPB EVERY 12 HOURS for 9 Days, VIAL Tigecycline (Tygacil) 50 Mg Vial 50 MG IVPB EVERY 12 HOURS, VIAL Discharge Condition Upon Discharge: improving, stable Discharge Disposition Patient was discharged to Home with Home Health(06) Discharge Diagnoses: Discharge Instructions Discharge Instructions Special Instructions I have been assigned to complete a D/C Summary on this account. I was not involved in the patient management Ngozi Yoo NP ([facility]anchte[facility]) May 05, 2016 08:38
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
== END 2016-05-03 15:45 | disposition home health service (06) | DRG 477 ==
LOC: EDBD 08:52 → EMR 09:11 → 4W 09:12 → EDBEDREQ 12:09
PROC: 0KBP0ZZ Excision of Left Hip Muscle, Open Approach (ICD-10-PCS; principal; 2016-04-19)
PROC: 0KBN0ZZ Excision of Right Hip Muscle, Open Approach (ICD-10-PCS; principal; 2016-04-19)
PROC: 0KBQ0ZZ Excision of Right Upper Leg Muscle, Open Approach (ICD-10-PCS; principal; 2016-04-19)
PROC: 0QB10ZX Excision of Sacrum, Open Approach, Diagnostic (ICD-10-PCS; principal; 2016-04-19)
PROC: 30233N1 Transfusion of Nonautologous Red Blood Cells into Peripheral Vein, Percutaneous Approach (ICD-10-PCS; 2016-04-23)
DX: M46.26 Osteomyelitis of vertebra, lumbar region (principal); L89.154 Pressure ulcer of sacral region, stage 4; G82.20 Paraplegia, unspecified; E46 Unspecified protein-calorie malnutrition; F11.20 Opioid dependence, uncomplicated; K81.1 Chronic cholecystitis; L89.899 Pressure ulcer of other site, unspecified stage; Z43.3 Encounter for attention to colostomy; M86.8X8 Other osteomyelitis, other site; E86.0 Dehydration; E87.6 Hypokalemia; K82.8 Other specified diseases of gallbladder; Z68.34 Body mass index [BMI] 34.0-34.9, adult; R11.2 Nausea with vomiting, unspecified; Z88.6 Allergy status to analgesic agent; Z88.1 Allergy status to other antibiotic agents; Z88.8 Allergy status to other drugs, medicaments and biological substances; R10.9 Unspecified abdominal pain; W34.00XS Accidental discharge from unspecified firearms or gun, sequela; F12.90 Cannabis use, unspecified, uncomplicated; F41.9 Anxiety disorder, unspecified; R41.3 Other amnesia; B96.89 Other specified bacterial agents as the cause of diseases classified elsewhere; D64.9 Anemia, unspecified; M19.90 Unspecified osteoarthritis, unspecified site; B96.20 Unspecified Escherichia coli [E. coli] as the cause of diseases classified elsewhere; B96.1 Klebsiella pneumoniae [K. pneumoniae] as the cause of diseases classified elsewhere; G89.4 Chronic pain syndrome; R21 Rash and other nonspecific skin eruption
CPT/HCPCS: 36415; 74177; 76700; 78266; 80048; 80053; 80150; 82565; 83690; 84134; 84443; 84520; 85007; 85025; 85651; 86850; 86900; 86901; 86920; 87040; 87070; 87181; 87205; 93005; 93970; 96374; 96375; J2405; J2765; J8499

== ENCOUNTER 2016-05-05 11:36 | Inpatient (IN) | payer MEDICARE, OTHER ==
[~2016-05-05] VITALS: Ht 165.1 cm; Wt 95.3 kg
[~2016-05-05 11:36] MED LIST changes: +AMIKACIN S1000 MG/4 IJ; +MEROPENEM1 GM IV; +METRONIDAZOLE500 MG ORAL; +ZYVOX600 MG ORAL
[2016-05-05 11:37] VITALS: BP 138/86
[2016-05-05] MEDS ORDERED: DiphenhydrAMINE 50mg/ml Inj IVP ONE ×2 (12:00→14:45)
[2016-05-05] MEDS ORDERED: HYDROmorphone 1mg/ml Carpuject IVP ONE ×2 (12:00→14:45)
[2016-05-05 12:21] LABS: BASOPHILS % (AUTO) 0.3 % (0.0-2.0); EOSINOPHILS % (AUTO) 0.4 % (0.0-3.0); LYMPHOCYTES % (AUTO) 18.6 % (20.0-45.0); MEAN CORPUSCULAR HEMOGLOBIN 26.9 PG (27.0-31.0); MEAN CORPUSCULAR HGB CONC 31.9 G/DL (32.0-36.0); MEAN CORPUSCULAR VOLUME 84 FL (80-99); MEAN PLATELET VOLUME 7.4 FL (6.5-10.1); MONOCYTES % (AUTO) 2.6 % (1.0-10.0); NEUTROPHILS % (AUTO) 78.1 % (45.0-75.0); PLATELET COUNT 193 K/UL (150-450); RED BLOOD COUNT 3.84 M/UL (4.20-5.40); RED CELL DISTRIBUTION WIDTH 16.7 % (11.6-14.8); WHITE BLOOD COUNT 9.9 K/UL (4.8-10.8)
[2016-05-05 12:31] LABS: ALANINE AMINOTRANSFERASE 6 U/L (3-33); ALBUMIN/GLOBULIN RATIO 0.4 (1.0-2.7); ANION GAP 15 (5-15); ASPARTATE AMINO TRANSFERASE 12 U/L (5-40); CALCIUM 7.5 mg/dL (8.6-10.2); CARBON DIOXIDE 27 mEQ/L (20-30); CHLORIDE 99 mEQ/L (98-107); CREATININE 0.5 mg/dL (0.5-0.9); GLOMERULAR FILTRATION RATE > 60 mL/min (>60); HEMOLYSIS 1; POTASSIUM 3.4 mEQ/L (3.4-4.9); SODIUM 141 mEQ/L (135-145); TOTAL PROTEIN 6.3 g/dL (6.6-8.7); TROPONIN I < 0.30 ng/mL (<=0.30)
[2016-05-05 12:41] LABS: CKMB < 1.5 ng/mL (< 3.8)
--- NOTE | 2016-05-05 13:19 | Emergency Room Report ---
History of Present Illness General Chief Complaint: Nausea, Vomiting, and Diarrhea Source: Patient, Medical Record, EMS Present Illness HPI 41-year-old female presents to ED for evaluation. Per EMS patient has been complaining of vomiting and body pain x2 days. Patient states she was recently discharged from the hospital after being treated for a "bone infection". patient has a PICC line in place it was to be receiving antibiotics at home. However patient states she has a lot of pain in that he come back to the hospital. Denies any chest pain or shortness of breath. Denies any fevers or chills. No other aggravating relieving factors. PMD is Dr Glover. Allergies: Coded Allergies: CEFTRIAXONE (Verified Allergy, Intermediate, SOB, HR-140bpm, face swollen , pt became red, 10/24/15) CODEINE (Verified Allergy, Intermediate, SWELLING, 01/03/11) LATEX (Verified Allergy, Intermediate, SWELLING, 01/03/11) PIPERACILLIN (Verified Allergy, Intermediate, Itching, 08/29/15) 08/29/15 tolerates Ceftaroline TAZOBACTAM (Verified Allergy, Intermediate, Itching, 01/29/15) POLYMYXIN B (Verified Allergy, Mild, Rash, 04/08/16) Suspected allergy reported by VANCOMYCIN (Verified Allergy, Mild, 07/15/14) ASPARAGINASE (Verified Allergy, Unknown, 01/28/14) CEFUROXIME (Unverified Allergy, Unknown, 04/19/16) IRON (Verified Allergy, Unknown, 01/28/14) Patient History Past Medical History: asthma Past Surgical History: none Pertinent Family History: none Social History: Denies: alcohol use, drug use, smoking Last Menstrual Period: alst month Now: No Immunizations: UTD Reviewed Nursing Documentation: PMH: Agreed, PSxH: Agreed Nursing Documentation-PMH Past Medical History: No History, Except For Hx Cardiac Problems: No Hx Hypertension: No Hx Pacemaker: No Hx Asthma: Yes Hx COPD: No Hx Diabetes: No Hx Cancer: No Hx Gastrointestinal Problems: Yes Hx Cerebrovascular Accident: No Hx Seizures: No 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 Hx Weakness: Yes Hx Fatigue: Yes Review of Systems All Other Systems: negative except mentioned in HPI Physical Exam Vital Signs Date Time Temp Pulse Resp B/P Pulse Ox O2 Delivery O2 Flow Rate FiO2 1/25/17 11:32 97.2 110 18 138/86 100 Room Air Sp02 EP Interpretation: reviewed, normal General Appearance: alert, GCS 15, non-toxic, mild distress Head: normocephalic, atraumatic Eyes: bilateral eye PERRL, bilateral eye normal inspection ENT: hearing grossly normal, normal pharynx, no angioedema, normal voice Neck: full range of motion, supple/symm/no masses Respiratory: chest non-tender, lungs clear, normal breath sounds, speaking full sentences Cardiovascular #1: regular rate, rhythm, no edema Cardiovascular #2: 2+ carotid (R), 2+ carotid (L), 2+ radial (R), 2+ radial (L) , 2+ dorsalis pedis (R), 2+ dorsalis pedis (L) Gastrointestinal: normal bowel sounds, non tender, soft, non-distended, no guarding, no rebound, other - colostomy Rectal: deferred Genitourinary: normal inspection, no CVA tenderness Musculoskeletal: back normal, gait/station normal, normal range of motion, non- tender Neurologic: alert, oriented x3, responsive, motor strength/tone normal, sensory intact, speech normal Psychiatric: judgement/insight normal, memory normal, mood/affect normal, no suicidal/homicidal ideation Reflexes: 3+ bicep (R), 3+ bicep (L), 3+ tricep (R), 3+ tricep (L), 3+ knee (R) , 3+ knee (L) Skin: normal color, no rash, warm/dry, well hydrated Lymphatic: no adenopathy Medical Decision Making Diagnostic Impression: Primary Impression: Generalized weakness Additional Impressions: Nausea, vomiting, and diarrhea Intractable pain ER Course 41-year-old female presents ED complaining of generalized body pain, vomiting. Recently discharged for treatment of osteomyelitis Differential-sepsis, dehydration, UTI She placed on stretcher. After initial history and physical I ordered labs, IV fluids, chest x-ray She was given Dilaudid for pain control Labs-no leukocytosis, hemoglobin/hematocrit stable, electrolytes okay Chest x-ray unremarkable Patient will be admitted to Dr. Glover for further pain control and evaluation. Discussion for possible SNF placement post discharge Diagnosis-generalized weakness, nausea vomiting diarrhea, intractable pain Admitted to floor in serious condition Labs Test 05/05/16 12:00 White Blood Count 9.9 K/UL (4.8-10.8) Red Blood Count 3.84 M/UL (4.20-5.40) Hemoglobin 10.3 G/DL (12.0-16.0) Hematocrit 32.4 % (37.0-47.0) Mean Corpuscular Volume 84 FL (80-99) Mean Corpuscular Hemoglobin 26.9 PG (27.0-31.0) Mean Corpuscular Hemoglobin Concent 31.9 G/DL (32.0-36.0) Red Cell Distribution Width 16.7 % (11.6-14.8) Platelet Count 193 K/UL (150-450) Mean Platelet Volume 7.4 FL (6.5-10.1) Neutrophils (%) (Auto) 78.1 % (45.0-75.0) Lymphocytes (%) (Auto) 18.6 % (20.0-45.0) Monocytes (%) (Auto) 2.6 % (1.0-10.0) Eosinophils (%) (Auto) 0.4 % (0.0-3.0) Basophils (%) (Auto) 0.3 % (0.0-2.0) Sodium Level 141 mEQ/L (135-145) Potassium Level 3.4 mEQ/L (3.4-4.9) Chloride Level 99 mEQ/L (98-107) Carbon Dioxide Level 27 mEQ/L (20-30) Anion Gap 15 (5-15) Blood Urea Nitrogen 7 mg/dL (7-23) Creatinine 0.5 mg/dL (0.5-0.9) Estimat Glomerular Filtration Rate > 60 mL/min (>60) Glucose Level 75 mg/dL (74-106) Lactic Acid Level 1.00 mmol/L (0.66-2.22) Calcium Level 7.5 mg/dL (8.6-10.2) Total Bilirubin 0.3 mg/dL (0.0-1.2) Aspartate Amino Transf (AST/SGOT) 12 U/L (5-40) Alanine Aminotransferase (ALT/SGPT) 6 U/L (3-33) Alkaline Phosphatase 116 U/L (35-104) Total Creatine Kinase 14 U/L (26-140) Creatine Kinase MB < 1.5 ng/mL (< 3.8) Creatine Kinase MB Relative Index Troponin I < 0.30 ng/mL (<=0.30) Total Protein 6.3 g/dL (6.6-8.7) Albumin 1.9 g/dL (3.5-5.2) Globulin 4.4 g/dL Albumin/Globulin Ratio 0.4 (1.0-2.7) Chest X-Ray Diagnostic Results EP Interpretation: Yes Findings: no consolidation, no effusion, no pneumothorax, no acute cardiopulmonary disease Number of Views: 1 Last Vital Signs Date Time Temp Pulse Resp B/P Pulse Ox O2 Delivery O2 Flow Rate FiO2 05/05/16 12:31 97.2 05/05/16 11:37 18 138/86 100 Room Air 05/05/16 11:32 110 Status: improved Disposition: ADMITTED INPATIENT Condition: Serious HERNAN JIMENEZ M.D. May 05, 2016 13:19
[2016-05-05] MEDS ORDERED: UNOBMED (13:23)
[2016-05-05 13:30] VITALS: BP 124/80
--- NOTE | 2016-05-05 13:30 | Diagnostic Imaging Report ---
Indication: Cough Technique: One view of the chest Comparison: 03/26/2016 Findings: Lungs and pleural spaces are clear. Heart size is normal. There is a right-sided PICC. Previously demonstrated left arm PICC is no longer present Impression: No acute process
[2016-05-05 15:48] VITALS: BP 134/72
[2016-05-05 16:00] VITALS: BP 128/81
--- NOTE | 2016-05-05 16:14 | Infectious Diseases Prog Note ---
Assessment/Plan Assessment/Plan HPI: 41 yo known to me, asked to evaluate patient for osteo/wound infection and abx treatment: ASSESSMENT AND PLAN: 1. e.coli/morganella and klebsiella sacral wound infection, high suspicion for osteo, ct abdomen and pelvis with possible lumbar spine osteo/discitis - - culture from bone biopsy, could not find path to r/o osteo when I discussed this with pathology MD on last visit - watch labs, sed rate - wound treatment per plastic surgery and protocol - consider spine surgery evaluation for further recs about possible lumbar spine osteo/discitis and further imaging, w/u etc. - meropenem for 31 days to treat as osteo osteo for total of 6 weeks - patient will need ecf 2. acinetobacter bacteremia, f/u blood cultures negative, s/p full tygacil course 3. nausea and vomiting - gi w/u 4. Weight loss, anemia, hx olis resolved 5. History of osteoarthritis and treatment. 6. Colostomy. 7. Paraplegia. 8. Anemia. 9. ? diabetes - patient denies dm hx, bs elevated only with infection per pt 10. Chronic pain management and chronic pain syndrome, anxiety 11. History of cholelithiasis. 12. Pain management for primary, opiate dependency 13. Multiple allergies to asparaginase, Rocephin, codeine, iron, Latex, piperacillin, tazobactam, and vancomycin. 14. wound care per protocol and plastic surgery 15. The case was discussed with RN 16. The case was discussed with the patient. 17. fh-nc, sh-negative, mar noted 18. notes and records reviewed 19. communicated with Dr. Healy Subjective Constitutional: Denies: fever HEENT: Denies: congestion Respiratory: Denies: shortness of breath Gastrointestinal/Abdominal: Reports: nausea, other - + colostomy, vomiting Neurologic: Denies: headache Psychiatric: Denies: depression Skin: Denies: rash Hematologic: Denies: bleeding Musculoskeletal: Denies: pain Allergies: Coded Allergies: CEFTRIAXONE (Verified Allergy, Intermediate, SOB, HR-140bpm, face swollen , pt became red, 10/24/15) CODEINE (Verified Allergy, Intermediate, SWELLING, 01/03/11) LATEX (Verified Allergy, Intermediate, SWELLING, 01/03/11) PIPERACILLIN (Verified Allergy, Intermediate, Itching, 08/29/15) 08/29/15 tolerates Ceftaroline TAZOBACTAM (Verified Allergy, Intermediate, Itching, 01/29/15) POLYMYXIN B (Verified Allergy, Mild, Rash, 04/08/16) Suspected allergy reported by VANCOMYCIN (Verified Allergy, Mild, 07/15/14) ASPARAGINASE (Verified Allergy, Unknown, 01/28/14) CEFUROXIME (Unverified Allergy, Unknown, 04/19/16) IRON (Verified Allergy, Unknown, 01/28/14) Objective Vital Signs Last 24 Hour Vital Signs Date Time Temp Pulse Resp B/P Pulse Ox O2 Delivery O2 Flow Rate FiO2 05/05/16 15:59 97.2 05/05/16 15:57 97.2 119 18 134/72 100 Room Air 05/05/16 15:48 119 18 134/72 100 Room Air 05/05/16 13:30 125 18 124/80 100 Room Air 05/05/16 12:31 97.2 05/05/16 11:37 97.2 18 138/86 100 Room Air 05/05/16 11:32 97.2 110 18 138/86 100 Room Air Height (Feet): 5 Height (Inches): 5.00 Weight (Pounds): 210 General Appearance: no acute distress HEENT: normocephalic, atraumatic, anicteric, mucous membranes moist, PERRL, EOMI, pharynx normal, supple, no JVD Respiratory/Chest: lungs clear, normal breath sounds, no respiratory distress, no accessory muscle use Cardiovascular: normal rate, regular rhythm, no gallop/murmur, no JVD Abdomen: normal bowel sounds, soft, non tender, no organomegaly, non distended Genitourinary: other Extremities: other Skin: no rash 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: 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 grossly normal, alert, oriented x 3, responsive, motor weakness Lymphatic: no neck adenopathy Musculoskeletal: no effusion Objective chest x-ray - nad Labs Test 05/05/16 12:00 White Blood Count 9.9 K/UL (4.8-10.8) Red Blood Count 3.84 M/UL (4.20-5.40) Hemoglobin 10.3 G/DL (12.0-16.0) Hematocrit 32.4 % (37.0-47.0) Mean Corpuscular Volume 84 FL (80-99) Mean Corpuscular Hemoglobin 26.9 PG (27.0-31.0) Mean Corpuscular Hemoglobin Concent 31.9 G/DL (32.0-36.0) Red Cell Distribution Width 16.7 % (11.6-14.8) Platelet Count 193 K/UL (150-450) Mean Platelet Volume 7.4 FL (6.5-10.1) Neutrophils (%) (Auto) 78.1 % (45.0-75.0) Lymphocytes (%) (Auto) 18.6 % (20.0-45.0) Monocytes (%) (Auto) 2.6 % (1.0-10.0) Eosinophils (%) (Auto) 0.4 % (0.0-3.0) Basophils (%) (Auto) 0.3 % (0.0-2.0) Sodium Level 141 mEQ/L (135-145) Potassium Level 3.4 mEQ/L (3.4-4.9) Chloride Level 99 mEQ/L (98-107) Carbon Dioxide Level 27 mEQ/L (20-30) Anion Gap 15 (5-15) Blood Urea Nitrogen 7 mg/dL (7-23) Creatinine 0.5 mg/dL (0.5-0.9) Estimat Glomerular Filtration Rate > 60 mL/min (>60) Glucose Level 75 mg/dL (74-106) Lactic Acid Level 1.00 mmol/L (0.66-2.22) Calcium Level 7.5 mg/dL (8.6-10.2) Total Bilirubin 0.3 mg/dL (0.0-1.2) Aspartate Amino Transf (AST/SGOT) 12 U/L (5-40) Alanine Aminotransferase (ALT/SGPT) 6 U/L (3-33) Alkaline Phosphatase 116 U/L (35-104) Total Creatine Kinase 14 U/L (26-140) Creatine Kinase MB < 1.5 ng/mL (< 3.8) Creatine Kinase MB Relative Index Troponin I < 0.30 ng/mL (<=0.30) Total Protein 6.3 g/dL (6.6-8.7) Albumin 1.9 g/dL (3.5-5.2) Globulin 4.4 g/dL Albumin/Globulin Ratio 0.4 (1.0-2.7) Laboratory Tests Test 05/05/16 12:00 White Blood Count 9.9 K/UL (4.8-10.8) Red Blood Count 3.84 M/UL (4.20-5.40) L Hemoglobin 10.3 G/DL (12.0-16.0) L Hematocrit 32.4 % (37.0-47.0) L Mean Corpuscular Volume 84 FL (80-99) Mean Corpuscular Hemoglobin 26.9 PG (27.0-31.0) L Mean Corpuscular Hemoglobin Concent 31.9 G/DL (32.0-36.0) L Red Cell Distribution Width 16.7 % (11.6-14.8) H Platelet Count 193 K/UL (150-450) Mean Platelet Volume 7.4 FL (6.5-10.1) Neutrophils (%) (Auto) 78.1 % (45.0-75.0) H Lymphocytes (%) (Auto) 18.6 % (20.0-45.0) L Monocytes (%) (Auto) 2.6 % (1.0-10.0) Eosinophils (%) (Auto) 0.4 % (0.0-3.0) Basophils (%) (Auto) 0.3 % (0.0-2.0) Sodium Level 141 mEQ/L (135-145) Potassium Level 3.4 mEQ/L (3.4-4.9) Chloride Level 99 mEQ/L (98-107) Carbon Dioxide Level 27 mEQ/L (20-30) Anion Gap 15 (5-15) Blood Urea Nitrogen 7 mg/dL (7-23) Creatinine 0.5 mg/dL (0.5-0.9) Estimat Glomerular Filtration Rate > 60 mL/min (>60) Glucose Level 75 mg/dL (74-106) Lactic Acid Level 1.00 mmol/L (0.66-2.22) Calcium Level 7.5 mg/dL (8.6-10.2) L Total Bilirubin 0.3 mg/dL (0.0-1.2) Aspartate Amino Transf (AST/SGOT) 12 U/L (5-40) Alanine Aminotransferase (ALT/SGPT) 6 U/L (3-33) Alkaline Phosphatase 116 U/L (35-104) H Total Creatine Kinase 14 U/L (26-140) L Creatine Kinase MB < 1.5 ng/mL (< 3.8) Creatine Kinase MB Relative Index Troponin I < 0.30 ng/mL (<=0.30) Total Protein 6.3 g/dL (6.6-8.7) L Albumin 1.9 g/dL (3.5-5.2) L Globulin 4.4 g/dL Albumin/Globulin Ratio 0.4 (1.0-2.7) L GRZEGORZ Gonzales May 05, 2016 16:14
[2016-05-05] MEDS ORDERED: Mylanta II UD 30ml ORAL PRN (17:00)
[2016-05-05] MEDS ORDERED: Milk of Magnesia 30ml Ud ORAL PRN (17:00)
[2016-05-05] MEDS ORDERED: Zolpidem 5mg tab ORAL PRN (17:00)
[2016-05-05] MEDS: DiphenhydrAMINE 50mg/ml Inj IVP PRN ×2 (18:10→22:14)
[2016-05-05 19:00] VITALS: BP 133/77
[2016-05-05] MEDS: Heparin 5000 units/ml inj SUBQ SCH (21:00)
[2016-05-06] VITALS: BP 115/68
[2016-05-06] MEDS: DiphenhydrAMINE 50mg/ml Inj IVP PRN ×6 (03:22→21:15)
[2016-05-06 04:00] VITALS: BP 129/83
[2016-05-06 07:17] LABS: BASOPHILS % (AUTO) 0.5 % (0.0-2.0); EOSINOPHILS % (AUTO) 2.1 % (0.0-3.0); LYMPHOCYTES % (AUTO) 28.9 % (20.0-45.0); MEAN CORPUSCULAR HGB CONC 32.4 G/DL (32.0-36.0); MEAN CORPUSCULAR VOLUME 83 FL (80-99); MEAN PLATELET VOLUME 8.2 FL (6.5-10.1); MONOCYTES % (AUTO) 5.2 % (1.0-10.0); NEUTROPHILS % (AUTO) 63.3 % (45.0-75.0); PLATELET COUNT 163 K/UL (150-450); RED BLOOD COUNT 3.39 M/UL (4.20-5.40); RED CELL DISTRIBUTION WIDTH 16.7 % (11.6-14.8); WHITE BLOOD COUNT 7.9 K/UL (4.8-10.8)
[2016-05-06 07:44] LABS: ANION GAP 8 (5-15); CALCIUM 7.1 mg/dL (8.6-10.2); CARBON DIOXIDE 30 mEQ/L (20-30); CHLORIDE 104 mEQ/L (98-107); CREATININE 0.5 mg/dL (0.5-0.9); GLOMERULAR FILTRATION RATE > 60 mL/min (>60); HEMOLYSIS 0; POTASSIUM 3.5 mEQ/L (3.4-4.9); SODIUM 142 mEQ/L (135-145)
[2016-05-06 08:00] VITALS: BP 124/73
[2016-05-06] MEDS: Heparin 5000 units/ml inj SUBQ SCH ×2 (09:00→21:28)
[2016-05-06 11:53] VITALS: BP 133/77
[2016-05-06] MEDS ORDERED: Amikacin Rx to dose MISC PRN (13:00)
[2016-05-06] MEDS: Amikacin 850 MG in NS 110 ML IV SCH (15:18)
[2016-05-06 16:00] VITALS: BP 143/83
--- NOTE | 2016-05-06 19:51 | Infectious Diseases Prog Note ---
Assessment/Plan Assessment/Plan ASSESSMENT AND PLAN: 1. e.coli/morganella and klebsiella sacral wound infection, high suspicion for osteo, ct abdomen and pelvis with possible lumbar spine osteo/discitis - - culture from bone biopsy, could not find path to r/o osteo when I discussed this with pathology MD on last visit - watch labs, sed rate - wound treatment per plastic surgery and protocol - consider spine surgery evaluation for further recs about possible lumbar spine osteo/discitis and further imaging, w/u etc. - meropenem for 30 days to treat as osteo osteo for total of 6 weeks - patient will need ecf 2. gram neg bacteremia, ? wound, ? line, ? urinary tract, ? gi - meropenem, amikacin added - check surveillance bc, check labs - may need to change line if bc still + - recent CT scan abdomen and pelvis without abscess 3. nausea and vomiting - gi w/u 4. Weight loss, anemia, hx lois resolved 5. History of osteoarthritis and treatment. 6. Colostomy. 7. Paraplegia. 8. Anemia. 9. ? diabetes - patient denies dm hx, bs elevated only with infection per pt 10. Chronic pain management and chronic pain syndrome, anxiety 11. History of cholelithiasis. 12. Pain management for primary, opiate dependency 13. Multiple allergies to asparaginase, Rocephin, codeine, iron, Latex, piperacillin, tazobactam, and vancomycin. 14. wound care per protocol and plastic surgery 15. The case was discussed with RN 16. The case was discussed with the patient. 17. fh-nc, sh-negative, mar noted 18. notes and records reviewed 19. communicated with Dr. Healy Subjective Constitutional: Reports: fatigue, Denies: fever HEENT: Denies: congestion Respiratory: Denies: shortness of breath Cardiovascular: Denies: chest pain Gastrointestinal/Abdominal: Reports: other - + colostomy, Denies: nausea, vomiting Genitourinary: Reports: other - no bay Neurologic: Denies: headache Psychiatric: Denies: depression Skin: Reports: rash - no change in rash Endocrine: Denies: feels warm Hematologic: Denies: bleeding Musculoskeletal: Denies: pain Allergies: Coded Allergies: CEFTRIAXONE (Verified Allergy, Intermediate, SOB, HR-140bpm, face swollen , pt became red, 10/24/15) CODEINE (Verified Allergy, Intermediate, SWELLING, 01/03/11) LATEX (Verified Allergy, Intermediate, SWELLING, 01/03/11) PIPERACILLIN (Verified Allergy, Intermediate, Itching, 08/29/15) 08/29/15 tolerates Ceftaroline TAZOBACTAM (Verified Allergy, Intermediate, Itching, 01/29/15) POLYMYXIN B (Verified Allergy, Mild, Rash, 04/08/16) Suspected allergy reported by VANCOMYCIN (Verified Allergy, Mild, 07/15/14) ASPARAGINASE (Verified Allergy, Unknown, 01/28/14) CEFUROXIME (Unverified Allergy, Unknown, 04/19/16) IRON (Verified Allergy, Unknown, 01/28/14) Objective Vital Signs Last 24 Hour Vital Signs Date Time Temp Pulse Resp B/P Pulse Ox O2 Delivery O2 Flow Rate FiO2 05/06/16 18:46 98.2 05/06/16 16:00 98.2 124 18 143/83 98 Room Air 05/06/16 11:53 97.7 109 20 133/77 97 Room Air 05/06/16 08:00 97.5 98 20 124/73 97 Room Air 05/06/16 04:00 97.7 104 20 129/83 96 Room Air 05/06/16 00:00 97.7 114 20 115/68 97 Room Air Height (Feet): 5 Height (Inches): 5.00 Weight (Pounds): 210 General Appearance: no acute distress HEENT: normocephalic, atraumatic, anicteric, mucous membranes moist, PERRL, EOMI, pharynx normal, supple, no JVD Respiratory/Chest: lungs clear, normal breath sounds, no respiratory distress, no accessory muscle use Cardiovascular: normal rate, regular rhythm, no gallop/murmur, no JVD Abdomen: normal bowel sounds, soft, non tender, no organomegaly, non distended , other - + colostomy Genitourinary: other - no bay Extremities: no cyanosis Skin: no rash, ulcers - wou 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, alert, oriented x 3, responsive, motor weakness Lymphatic: no neck adenopathy Musculoskeletal: no effusion Objective chest x-ray - nad (reviewed) Microbiology Date/Time Source Procedure Growth Status 05/05/16 11:45 Blood Blood Culture - Preliminary Resulted bc - gram negative Laboratory Tests Test 05/06/16 06:00 White Blood Count 7.9 K/UL (4.8-10.8) Red Blood Count 3.39 M/UL (4.20-5.40) L Hemoglobin 9.2 G/DL (12.0-16.0) L Hematocrit 28.3 % (37.0-47.0) L Mean Corpuscular Volume 83 FL (80-99) Mean Corpuscular Hemoglobin 27.0 PG (27.0-31.0) Mean Corpuscular Hemoglobin Concent 32.4 G/DL (32.0-36.0) Red Cell Distribution Width 16.7 % (11.6-14.8) H Platelet Count 163 K/UL (150-450) Mean Platelet Volume 8.2 FL (6.5-10.1) Neutrophils (%) (Auto) 63.3 % (45.0-75.0) Lymphocytes (%) (Auto) 28.9 % (20.0-45.0) Monocytes (%) (Auto) 5.2 % (1.0-10.0) Eosinophils (%) (Auto) 2.1 % (0.0-3.0) Basophils (%) (Auto) 0.5 % (0.0-2.0) Sodium Level 142 mEQ/L (135-145) Potassium Level 3.5 mEQ/L (3.4-4.9) Chloride Level 104 mEQ/L (98-107) Carbon Dioxide Level 30 mEQ/L (20-30) Anion Gap 8 (5-15) Blood Urea Nitrogen 6 mg/dL (7-23) L Creatinine 0.5 mg/dL (0.5-0.9) Estimat Glomerular Filtration Rate > 60 mL/min (>60) Glucose Level 85 mg/dL (74-106) Calcium Level 7.1 mg/dL (8.6-10.2) L Current Medications Medications (Trade) Dose Ordered Sig/Pineda Route PRN Reason Start Time Stop Time Status Last Admin Dose Admin Acetaminophen (Tylenol) 650 mg Q4H PRN ORAL Mild Pain (Pain Scale 1-3) 05/05/16 17:00 06/04/16 16:59 Acetaminophen (Tylenol) 650 mg Q4H PRN ORAL fever 05/05/16 17:00 06/04/16 16:59 Al Hydroxide/Mg Hydroxide (Mylanta II) 30 ml Q4H PRN ORAL dyspepsia 05/05/16 17:00 06/04/16 16:59 Amikacin Protocol 1 ea 1 ea DAILY PRN MISC Per rx protocol 05/06/16 13:00 06/05/16 12:59 Amikacin Sulfate/ Sodium Chloride (Amikin/Sodium Chloride) 113.4 ml @ 113.4 mls/ hr Q24H IV 05/06/16 15:00 05/13/16 14:59 05/06/16 15:18 Dextrose (Dextrose 50%) STAT PRN IV Hypoglycemia 05/05/16 17:00 06/04/16 16:59 Diphenhydramine HCl (Benadryl) 25 mg Q3H PRN IVP Itching 05/05/16 17:00 06/04/16 16:59 05/06/16 18:16 Heparin Sodium (Porcine) (Heparin 5000 units/ml) 5,000 units EVERY 12 HOURS SUBQ 05/05/16 21:00 06/04/16 20:59 Hydromorphone HCl (Dilaudid) 2 mg Q3H PRN IVP Severe Pain (Pain Scale 7-10) 05/05/16 17:00 05/12/16 16:59 05/06/16 18:16 Magnesium Hydroxide (Mom) 30 ml HSPRN PRN ORAL Constipation 05/05/16 17:00 06/04/16 16:59 Meropenem/Sodium Chloride (Merrem/Sodium Chloride) 100 ml @ 200 mls/hr Q8HR IVPB 05/05/16 22:00 05/10/16 21:59 05/06/16 13:16 Ondansetron HCl (Zofran) 4 mg Q6H PRN IVP Nausea & Vomiting 05/05/16 17:00 06/04/16 16:59 Pantoprazole (Protonix) 40 mg DAILY ORAL 05/06/16 09:00 06/05/16 08:59 05/06/16 08:09 Zolpidem Tartrate (Ambien) 5 mg HSPRN PRN ORAL Insomnia 05/05/16 17:00 06/04/16 16:59 GRZEGORZ MARTINEZ May 06, 2016 19:51
[2016-05-06 20:00] VITALS: BP 125/76
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
[2016-05-07] VITALS (7 sets, daily range): BP systolic 129–142; BP diastolic 68–84
[2016-05-07] MEDS: DiphenhydrAMINE 50mg/ml Inj IVP PRN ×7 (00:15→21:50)
[2016-05-07 03:19] LABS: BASOPHILS % (AUTO) 0.4 % (0.0-2.0); EOSINOPHILS % (AUTO) 2.4 % (0.0-3.0); LYMPHOCYTES % (AUTO) 29.2 % (20.0-45.0); MEAN CORPUSCULAR VOLUME 84 FL (80-99); NEUTROPHILS % (AUTO) 62.9 % (45.0-75.0); PLATELET COUNT 131 K/UL (150-450); RED BLOOD COUNT 3.16 M/UL (4.20-5.40); WHITE BLOOD COUNT 7.4 K/UL (4.8-10.8)
[2016-05-07 03:39] LABS: ANION GAP 10 (5-15); CALCIUM 7.1 mg/dL (8.6-10.2); CARBON DIOXIDE 29 mEQ/L (20-30); CHLORIDE 104 mEQ/L (98-107); CREATININE 0.6 mg/dL (0.5-0.9); GLOMERULAR FILTRATION RATE > 60 mL/min (>60); HEMOLYSIS 3; POTASSIUM 3.4 mEQ/L (3.4-4.9); SODIUM 143 mEQ/L (135-145)
[2016-05-07 04:50] LABS: ERYTHROCYTE SEDIMENTATION RATE 75 MM/HR (0-20)
--- NOTE | 2016-05-07 08:40 | General Progress Note ---
Assessment/Plan Assessment/Plan IMPRESSION: Osteomyelitis, recurrent wound infection with polymicrobial organisms, multiple allergies, history dehydration, history of nausea and vomiting, chronic pain syndrome, chronic opiate dependent, diabetes, anemia, prior history of transfusion. bacteremia PLAN care noted d/w ID finalize care SNF discharge wound care pain control unable to care for self at home impression, plan, and exam edited and reviewed in detail care discussed with RN Subjective Allergies: Coded Allergies: CEFTRIAXONE (Verified Allergy, Intermediate, SOB, HR-140bpm, face swollen , pt became red, 10/24/15) CODEINE (Verified Allergy, Intermediate, SWELLING, 01/03/11) LATEX (Verified Allergy, Intermediate, SWELLING, 01/03/11) PIPERACILLIN (Verified Allergy, Intermediate, Itching, 08/29/15) 08/29/15 tolerates Ceftaroline TAZOBACTAM (Verified Allergy, Intermediate, Itching, 01/29/15) POLYMYXIN B (Verified Allergy, Mild, Rash, 04/08/16) Suspected allergy reported by MD VANCOMYCIN (Verified Allergy, Mild, 07/15/14) ASPARAGINASE (Verified Allergy, Unknown, 01/28/14) CEFUROXIME (Unverified Allergy, Unknown, 04/19/16) IRON (Verified Allergy, Unknown, 01/28/14) Subjective comfortable at present no distress overall Objective Last 24 Hour Vital Signs Date Time Temp Pulse Resp B/P Pulse Ox O2 Delivery O2 Flow Rate FiO2 05/07/16 08:04 98.3 102 20 137/68 97 Room Air 05/07/16 04:00 98.0 110 20 142/80 99 Room Air 05/07/16 01:00 98.1 114 20 134/ 98 05/07/16 00:00 98.1 114 20 134/84 98 Room Air 05/06/16 21:45 98.2 05/06/16 20:00 98.2 121 18 125/76 97 Room Air 05/06/16 16:00 98.2 124 18 143/83 98 Room Air 05/06/16 11:53 97.7 109 20 133/77 97 Room Air Intake and Output 05/06/16 05/07/16 19:00 07:00 Intake Total 693.4 ml 460 ml Balance 693.4 ml 460 ml Intake Oral 480 ml 360 ml IV Total 213.4 ml 100 ml # Voids 5 Laboratory Tests 05/07/16 03:00: White Blood Count 7.4, Red Blood Count 3.16L, Hemoglobin 8.5L, Hematocrit 26.7L , Mean Corpuscular Volume 84, Mean Corpuscular Hemoglobin 27.0, Mean Corpuscular Hemoglobin Concent 32.0, Red Cell Distribution Width 17.0H, Platelet Count 131L, Mean Platelet Volume 7.0, Neutrophils (%) (Auto) 62.9, Lymphocytes (%) (Auto) 29.2, Monocytes (%) (Auto) 5.0, Eosinophils (%) (Auto) 2.4, Basophils (%) (Auto) 0.4, Erythrocyte Sedimentation Rate 75H, Sodium Level 143, Potassium Level 3.4, Chloride Level 104, Carbon Dioxide Level 29, Anion Gap 10, Blood Urea Nitrogen 6L, Creatinine 0.6, Estimat Glomerular Filtration Rate > 60, Glucose Level 115H, Calcium Level 7.1L, Random Amikacin Level 8.4 Height (Feet): 5 Height (Inches): 5.00 Weight (Pounds): 210 Objective GENERAL: A well-developed male, comfortable, chronically ill. HEENT: Negative. NECK: Supple. No adenopathy. Carotids 2+. LUNGS: Clear. No rhonchi or wheezes. CARDIAC: S1 and S2. Regular rhythm without murmurs, rubs, or gallops. ABDOMEN: Soft, obese, nontender. no drainage noted EXTREMITIES: Significant paraplegia. Minimal edema on the lower extremities. NEUROLOGIC: As noted above. SKIN: Noted. LUANN MICHEL May 07, 2016 08:40
[2016-05-07] MEDS: Heparin 5000 units/ml inj SUBQ SCH ×2 (08:45→20:04)
[2016-05-07] MEDS ORDERED: Heparin 2000 units/Ns 1000ml INJ ONE (09:45)
[2016-05-07] MEDS ORDERED: Lidocaine 1% Plain 30 ml INJ ONE (11:00)
[2016-05-07] MEDS ORDERED: Sodium Bicarbonate 8.4% 50ml Inj IV ONE (11:00)
[2016-05-07] MEDS ORDERED: MILK OF MA400 MG/51 ORAL (11:06)
[2016-05-07] MEDS ORDERED: ZOFRAN 4 MG4 MG/2 ML IV (11:06)
[2016-05-07] MEDS ORDERED: HEPARIN2000 UNIT/ SQ (11:06)
[2016-05-07] MEDS ORDERED: DILAUDID2 MG IVP (11:06)
[2016-05-07] MEDS ORDERED: AMBIEN5 MG ORAL (11:06)
[2016-05-07] MEDS ORDERED: MYLANTA II30 ML ORAL (11:06)
[2016-05-07] MEDS ORDERED: PROTONIX40 MG ORAL (11:06)
[2016-05-07] MEDS ORDERED: DIPHENHYDRAMINE25 M1 IVP (11:06)
[2016-05-07] MEDS ORDERED: TYLENOL650 MG/20. ORAL (11:10)
--- NOTE | 2016-05-07 12:44 | Infectious Diseases Prog Note ---
Assessment/Plan Assessment/Plan ASSESSMENT AND PLAN: 1. e.coli/morganella and klebsiella sacral wound infection, high suspicion for osteo, ct abdomen and pelvis with possible lumbar spine osteo/discitis - - culture from bone biopsy, could not find path to r/o osteo when I discussed this with pathology MD on last visit - watch labs, sed rate - wound treatment per plastic surgery and protocol - consider spine surgery evaluation for further recs about possible lumbar spine osteo/discitis and further imaging, w/u etc. - meropenem for 29 days to treat as osteo osteo for total of 6 weeks (may need to adjust abx depending on below bc results) - patient will need ecf 2. gram neg/gram + bacteremia - likely line infection - meropenem and amikacin, start zyvox - check surveillance bc, check labs - check id bc and adjust abx - recent CT scan abdomen and pelvis without abscess - d/w microbiology 3. nausea and vomiting - gi w/u 4. Weight loss, anemia, hx lois resolved 5. History of osteoarthritis and treatment. 6. Colostomy. 7. Paraplegia. 8. Anemia. 9. ? diabetes - patient denies dm hx, bs elevated only with infection per pt 10. Chronic pain management and chronic pain syndrome, anxiety 11. History of cholelithiasis. 12. Pain management for primary, opiate dependency 13. Multiple allergies to asparaginase, Rocephin, codeine, iron, Latex, piperacillin, tazobactam, and vancomycin. 14. wound care per protocol and plastic surgery 15. The case was discussed with RN 16. The case was discussed with the patient. 17. fh-nc, sh-negative, mar noted 18. notes and records reviewed 19. communicated with Dr. Healy Subjective Constitutional: Denies: fever Respiratory: Denies: shortness of breath Cardiovascular: Denies: chest pain Gastrointestinal/Abdominal: Reports: other - + colostomy , Denies: nausea, vomiting Neurologic: Denies: headache Psychiatric: Denies: depression Skin: Reports: rash - rash stable Allergies: Coded Allergies: CEFTRIAXONE (Verified Allergy, Intermediate, SOB, HR-140bpm, face swollen , pt became red, 10/24/15) CODEINE (Verified Allergy, Intermediate, SWELLING, 01/03/11) LATEX (Verified Allergy, Intermediate, SWELLING, 01/03/11) PIPERACILLIN (Verified Allergy, Intermediate, Itching, 08/29/15) 08/29/15 tolerates Ceftaroline TAZOBACTAM (Verified Allergy, Intermediate, Itching, 01/29/15) POLYMYXIN B (Verified Allergy, Mild, Rash, 04/08/16) Suspected allergy reported by VANCOMYCIN (Verified Allergy, Mild, 07/15/14) ASPARAGINASE (Verified Allergy, Unknown, 01/28/14) CEFUROXIME (Unverified Allergy, Unknown, 04/19/16) IRON (Verified Allergy, Unknown, 01/28/14) Objective Vital Signs Last 24 Hour Vital Signs Date Time Temp Pulse Resp B/P Pulse Ox O2 Delivery O2 Flow Rate FiO2 05/07/16 11:50 97.7 103 20 142/77 97 Room Air 05/07/16 08:04 98.3 102 20 137/68 97 Room Air 05/07/16 04:00 98.0 110 20 142/80 99 Room Air 05/07/16 01:00 98.1 114 20 134/ 98 05/07/16 00:00 98.1 114 20 134/84 98 Room Air 05/06/16 21:45 98.2 05/06/16 20:00 98.2 121 18 125/76 97 Room Air 05/06/16 16:00 98.2 124 18 143/83 98 Room Air Height (Feet): 5 Height (Inches): 5.00 Weight (Pounds): 210 General Appearance: no acute distress HEENT: normocephalic, atraumatic, anicteric, mucous membranes moist, PERRL, EOMI, pharynx normal, supple, no JVD Respiratory/Chest: lungs clear, normal breath sounds, no respiratory distress, no accessory muscle use Cardiovascular: normal rate, regular rhythm, no gallop/murmur, no JVD Abdomen: normal bowel sounds, soft, non tender, no organomegaly, non distended Genitourinary: other - no bay Extremities: no cyanosis Skin: rash - no change in rash, ulcers - covered 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 Complete 05/05/16 12:30 Rectum VRE Culture - Final NO VANCOMYCIN RESISTANT ENTEROCOCCUS ... Complete bc - gram neg and gram + (id pending) Laboratory Tests Test 05/07/16 03:00 White Blood Count 7.4 K/UL (4.8-10.8) Red Blood Count 3.16 M/UL (4.20-5.40) L Hemoglobin 8.5 G/DL (12.0-16.0) L Hematocrit 26.7 % (37.0-47.0) L Mean Corpuscular Volume 84 FL (80-99) Mean Corpuscular Hemoglobin 27.0 PG (27.0-31.0) Mean Corpuscular Hemoglobin Concent 32.0 G/DL (32.0-36.0) Red Cell Distribution Width 17.0 % (11.6-14.8) H Platelet Count 131 K/UL (150-450) L Mean Platelet Volume 7.0 FL (6.5-10.1) Neutrophils (%) (Auto) 62.9 % (45.0-75.0) Lymphocytes (%) (Auto) 29.2 % (20.0-45.0) Monocytes (%) (Auto) 5.0 % (1.0-10.0) Eosinophils (%) (Auto) 2.4 % (0.0-3.0) Basophils (%) (Auto) 0.4 % (0.0-2.0) Erythrocyte Sedimentation Rate 75 MM/HR (0-20) H Sodium Level 143 mEQ/L (135-145) Potassium Level 3.4 mEQ/L (3.4-4.9) Chloride Level 104 mEQ/L (98-107) Carbon Dioxide Level 29 mEQ/L (20-30) Anion Gap 10 (5-15) Blood Urea Nitrogen 6 mg/dL (7-23) L Creatinine 0.6 mg/dL (0.5-0.9) Estimat Glomerular Filtration Rate > 60 mL/min (>60) Glucose Level 115 mg/dL (74-106) H Calcium Level 7.1 mg/dL (8.6-10.2) L Random Amikacin Level 8.4 ug/mL Current Medications Medications (Trade) Dose Ordered Sig/Pineda Route PRN Reason Start Time Stop Time Status Last Admin Dose Admin Acetaminophen (Tylenol) 650 mg Q4H PRN ORAL Mild Pain (Pain Scale 1-3) 05/05/16 17:00 06/04/16 16:59 Acetaminophen (Tylenol) 650 mg Q4H PRN ORAL fever 05/05/16 17:00 06/04/16 16:59 Al Hydroxide/Mg Hydroxide (Mylanta II) 30 ml Q4H PRN ORAL dyspepsia 05/05/16 17:00 06/04/16 16:59 Amikacin Protocol 1 ea 1 ea DAILY PRN MISC Per rx protocol 05/06/16 13:00 06/05/16 12:59 Amikacin Sulfate/ Sodium Chloride (Amikin/Sodium Chloride) 113.4 ml @ 113.4 mls/ hr Q24H IV 05/06/16 15:00 05/13/16 14:59 05/06/16 15:18 Dextrose (Dextrose 50%) STAT PRN IV Hypoglycemia 05/05/16 17:00 06/04/16 16:59 Diphenhydramine HCl (Benadryl) 25 mg Q3H PRN IVP Itching 05/05/16 17:00 06/04/16 16:59 05/07/16 11:57 Heparin Sodium (Porcine) (Heparin 5000 units/ml) 5,000 units EVERY 12 HOURS SUBQ 05/05/16 21:00 06/04/16 20:59 05/06/16 21:28 Hydromorphone HCl (Dilaudid) 2 mg Q3H PRN IVP Severe Pain (Pain Scale 7-10) 05/05/16 17:00 05/12/16 16:59 05/07/16 11:57 Magnesium Hydroxide (Mom) 30 ml HSPRN PRN ORAL Constipation 05/05/16 17:00 06/04/16 16:59 Meropenem/Sodium Chloride (Merrem/Sodium Chloride) 100 ml @ 200 mls/hr Q8HR IVPB 05/05/16 22:00 05/10/16 21:59 05/07/16 05:32 Ondansetron HCl (Zofran) 4 mg Q6H PRN IVP Nausea & Vomiting 05/05/16 17:00 06/04/16 16:59 Pantoprazole (Protonix) 40 mg DAILY ORAL 05/06/16 09:00 06/05/16 08:59 05/07/16 08:46 Zolpidem Tartrate (Ambien) 5 mg HSPRN PRN ORAL Insomnia 05/05/16 17:00 06/04/16 16:59 GRZEGORZ MARTINEZ May 07, 2016 12:44
[2016-05-07] MEDS ORDERED: MERREM1 GM IVPB (15:58)
[2016-05-07] MEDS ORDERED: AMIKIN500 MG/2 M IVPB (15:58)
[2016-05-07] MEDS: Amikacin 850 MG in NS 110 ML IV SCH (16:34)
[2016-05-08] VITALS: BP 136/78
[2016-05-08] MEDS: DiphenhydrAMINE 50mg/ml Inj IVP PRN ×6 (00:49→21:54)
[2016-05-08 04:00] VITALS: BP 137/85
[2016-05-08 08:13] VITALS: BP 124/74
[2016-05-08] MEDS: Heparin 5000 units/ml inj SUBQ SCH ×2 (09:00→20:54)
--- NOTE | 2016-05-08 11:16 | Infectious Diseases Prog Note ---
Assessment/Plan Assessment/Plan ASSESSMENT AND PLAN: 1. e.coli/morganella and klebsiella sacral wound infection, high suspicion for osteo, ct abdomen and pelvis with possible lumbar spine osteo/discitis - - culture from bone biopsy, could not find path to r/o osteo when I discussed this with pathology MD on last visit - watch labs, sed rate - wound treatment per plastic surgery and protocol - consider spine surgery evaluation for further recs about possible lumbar spine osteo/discitis and further imaging, w/u etc. - meropenem for 28 days to treat as osteo osteo for total of 6 weeks (may need to adjust abx depending on below bc results) - patient will need ecf 2. acinetobaccter/gram + bacteremia - likely line infection - tygacil stared for multi drug resistant organism - check surveillance bc, check labs - check id bc and adjust abx - recent CT scan abdomen and pelvis without abscess - d/w microbiology - d/w pharmacy about abx - check echo to r/o endocarditis - change line 3. nausea and vomiting - gi w/u 4. Weight loss, anemia, hx lois resolved 5. History of osteoarthritis and treatment. 6. Colostomy. 7. Paraplegia. 8. Anemia. 9. ? diabetes - patient denies dm hx, bs elevated only with infection per pt 10. Chronic pain management and chronic pain syndrome, anxiety 11. History of cholelithiasis. 12. Pain management for primary, opiate dependency 13. Multiple allergies to asparaginase, Rocephin, codeine, iron, Latex, piperacillin, tazobactam, and vancomycin. 14. wound care per protocol and plastic surgery 15. The case was discussed with RN 16. The case was discussed with the patient. 17. fh-nc, sh-negative, mar noted 18. notes and records reviewed 19. communicated with Dr. Healy 20. d/w patient and answered questions Subjective Constitutional: Denies: fever HEENT: Denies: congestion Respiratory: Denies: shortness of breath Cardiovascular: Denies: chest pain Gastrointestinal/Abdominal: Reports: other - + colostomy, Denies: nausea, vomiting Genitourinary: Reports: other - no bay Neurologic: Denies: headache Psychiatric: Denies: depression Skin: Reports: rash - rash stable Hematologic: Denies: bleeding Musculoskeletal: Denies: pain Allergies: Coded Allergies: CEFTRIAXONE (Verified Allergy, Intermediate, SOB, HR-140bpm, face swollen , pt became red, 10/24/15) CODEINE (Verified Allergy, Intermediate, SWELLING, 01/03/11) LATEX (Verified Allergy, Intermediate, SWELLING, 01/03/11) PIPERACILLIN (Verified Allergy, Intermediate, Itching, 08/29/15) 08/29/15 tolerates Ceftaroline TAZOBACTAM (Verified Allergy, Intermediate, Itching, 01/29/15) POLYMYXIN B (Verified Allergy, Mild, Rash, 04/08/16) Suspected allergy reported by VANCOMYCIN (Verified Allergy, Mild, 07/15/14) ASPARAGINASE (Verified Allergy, Unknown, 01/28/14) CEFUROXIME (Unverified Allergy, Unknown, 04/19/16) IRON (Verified Allergy, Unknown, 01/28/14) Objective Vital Signs Last 24 Hour Vital Signs Date Time Temp Pulse Resp B/P Pulse Ox O2 Delivery O2 Flow Rate FiO2 05/08/16 09:31 97.3 05/08/16 08:13 97.3 99 20 124/74 98 Room Air 05/08/16 04:00 96.4 109 20 137/85 97 Room Air 05/08/16 00:00 97.2 105 20 136/78 98 Room Air 05/07/16 20:00 97.6 100 18 129/79 99 Room Air 05/07/16 16:00 97.0 111 19 135/84 99 Room Air 05/07/16 11:50 97.7 103 20 142/77 97 Room Air Height (Feet): 5 Height (Inches): 5.00 Weight (Pounds): 210 General Appearance: no acute distress HEENT: normocephalic, atraumatic, anicteric, mucous membranes moist, PERRL, EOMI, pharynx normal, supple, no JVD Respiratory/Chest: lungs clear, normal breath sounds, no respiratory distress, no accessory muscle use Cardiovascular: normal rate, regular rhythm, no gallop/murmur, no JVD Abdomen: normal bowel sounds, soft, non tender, no organomegaly, non distended Genitourinary: other - no bay Extremities: no cyanosis Skin: rash - no change in rash 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, alert, responsive, motor weakness Lymphatic: no neck adenopathy Musculoskeletal: no effusion Objective chest x-ray - nad (reviewed) Microbiology Date/Time Source Procedure Growth Status 05/06/16 14:15 Blood Blood Culture - Preliminary NO GROWTH AFTER 24 HOURS Resulted 05/06/16 14:00 Blood Blood Culture - Preliminary NO GROWTH AFTER 24 HOURS Resulted 05/05/16 12:00 Blood Blood Culture - Preliminary NO GROWTH AFTER 48 HOURS Resulted 05/05/16 11:45 Blood Blood Culture - Preliminary A.baumanii Complx - Mdr Resulted 05/05/16 12:30 Nasal Nares MRSA Culture - Final NO METHICILLIN RESISTANT STAPH AUREUS... Complete 05/05/16 12:30 Rectum VRE Culture - Final NO VANCOMYCIN RESISTANT ENTEROCOCCUS ... Complete bc - acinetobacter and gram + Labs Test 05/05/16 12:00 05/06/16 06:00 05/07/16 03:00 White Blood Count 9.9 K/UL (4.8-10.8) 7.9 K/UL (4.8-10.8) 7.4 K/UL (4.8-10.8) Red Blood Count 3.84 M/UL (4.20-5.40) 3.39 M/UL (4.20-5.40) 3.16 M/UL (4.20-5.40) Hemoglobin 10.3 G/DL (12.0-16.0) 9.2 G/DL (12.0-16.0) 8.5 G/DL (12.0-16.0) Hematocrit 32.4 % (37.0-47.0) 28.3 % (37.0-47.0) 26.7 % (37.0-47.0) Mean Corpuscular Volume 84 FL (80-99) 83 FL (80-99) 84 FL (80-99) Mean Corpuscular Hemoglobin 26.9 PG (27.0-31.0) 27.0 PG (27.0-31.0) 27.0 PG (27.0-31.0) Mean Corpuscular Hemoglobin Concent 31.9 G/DL (32.0-36.0) 32.4 G/DL (32.0-36.0) 32.0 G/DL (32.0-36.0) Red Cell Distribution Width 16.7 % (11.6-14.8) 16.7 % (11.6-14.8) 17.0 % (11.6-14.8) Platelet Count 193 K/UL (150-450) 163 K/UL (150-450) 131 K/UL (150-450) Mean Platelet Volume 7.4 FL (6.5-10.1) 8.2 FL (6.5-10.1) 7.0 FL (6.5-10.1) Neutrophils (%) (Auto) 78.1 % (45.0-75.0) 63.3 % (45.0-75.0) 62.9 % (45.0-75.0) Lymphocytes (%) (Auto) 18.6 % (20.0-45.0) 28.9 % (20.0-45.0) 29.2 % (20.0-45.0) Monocytes (%) (Auto) 2.6 % (1.0-10.0) 5.2 % (1.0-10.0) 5.0 % (1.0-10.0) Eosinophils (%) (Auto) 0.4 % (0.0-3.0) 2.1 % (0.0-3.0) 2.4 % (0.0-3.0) Basophils (%) (Auto) 0.3 % (0.0-2.0) 0.5 % (0.0-2.0) 0.4 % (0.0-2.0) Sodium Level 141 mEQ/L (135-145) 142 mEQ/L (135-145) 143 mEQ/L (135-145) Potassium Level 3.4 mEQ/L (3.4-4.9) 3.5 mEQ/L (3.4-4.9) 3.4 mEQ/L (3.4-4.9) Chloride Level 99 mEQ/L (98-107) 104 mEQ/L (98-107) 104 mEQ/L (98-107) Carbon Dioxide Level 27 mEQ/L (20-30) 30 mEQ/L (20-30) 29 mEQ/L (20-30) Anion Gap 15 (5-15) 8 (5-15) 10 (5-15) Blood Urea Nitrogen 7 mg/dL (7-23) 6 mg/dL (7-23) 6 mg/dL (7-23) Creatinine 0.5 mg/dL (0.5-0.9) 0.5 mg/dL (0.5-0.9) 0.6 mg/dL (0.5-0.9) Estimat Glomerular Filtration Rate > 60 mL/min (>60) > 60 mL/min (>60) > 60 mL/min (>60) Glucose Level 75 mg/dL (74-106) 85 mg/dL (74-106) 115 mg/dL (74-106) Lactic Acid Level 1.00 mmol/L (0.66-2.22) Calcium Level 7.5 mg/dL (8.6-10.2) 7.1 mg/dL (8.6-10.2) 7.1 mg/dL (8.6-10.2) Total Bilirubin 0.3 mg/dL (0.0-1.2) Aspartate Amino Transf (AST/SGOT) 12 U/L (5-40) Alanine Aminotransferase (ALT/SGPT) 6 U/L (3-33) Alkaline Phosphatase 116 U/L (35-104) Total Creatine Kinase 14 U/L (26-140) Creatine Kinase MB < 1.5 ng/mL (< 3.8) Creatine Kinase MB Relative Index Troponin I < 0.30 ng/mL (<=0.30) Total Protein 6.3 g/dL (6.6-8.7) Albumin 1.9 g/dL (3.5-5.2) Globulin 4.4 g/dL Albumin/Globulin Ratio 0.4 (1.0-2.7) Erythrocyte Sedimentation Rate 75 MM/HR (0-20) Random Amikacin Level 8.4 ug/mL Current Medications Medications (Trade) Dose Ordered Sig/Pineda Route PRN Reason Start Time Stop Time Status Last Admin Dose Admin Acetaminophen (Tylenol) 650 mg Q4H PRN ORAL Mild Pain (Pain Scale 1-3) 05/05/16 17:00 2 16:59 Acetaminophen (Tylenol) 650 mg Q4H PRN ORAL fever 05/05/16 17:00 2 16:59 Al Hydroxide/Mg Hydroxide (Mylanta II) 30 ml Q4H PRN ORAL dyspepsia 05/05/16 17:00 06/04/16 16:59 Dextrose (Dextrose 50%) STAT PRN IV Hypoglycemia 05/05/16 17:00 06/04/16 16:59 Diphenhydramine HCl 25 mg 25 mg Q3H PRN IVP Itching 05/05/16 17:00 06/04/16 16:59 05/08/16 09:01 Heparin Sodium (Porcine) (Heparin 5000 units/ml) 5,000 units EVERY 12 HOURS SUBQ 05/05/16 21:00 06/04/16 20:59 05/06/16 21:28 Hydromorphone HCl (Dilaudid) 2 mg Q3H PRN IVP Severe Pain (Pain Scale 7-10) 05/05/16 17:00 05/12/16 16:59 05/08/16 09:01 Magnesium Hydroxide (Mom) 30 ml HSPRN PRN ORAL Constipation 05/05/16 17:00 06/04/16 16:59 Meropenem 1 gm/ Sodium Chloride 100 ml @ 200 mls/hr Q8HR IVPB 05/08/16 14:00 05/13/16 23:59 Ondansetron HCl (Zofran) 4 mg Q6H PRN IVP Nausea & Vomiting 05/05/16 17:00 06/04/16 16:59 05/08/16 09:01 Pantoprazole (Protonix) 40 mg DAILY ORAL 05/06/16 09:00 06/05/16 08:59 05/08/16 09:02 Tigecycline 100 mg/Dextrose 110 ml @ 110 mls/hr ONCE ONCE IVPB 05/08/16 11:30 05/08/16 12:29 05/08/16 11:10 Tigecycline/ Dextrose (Tygacil/D5W) 110 ml @ 220 mls/hr EVERY 12 HOURS IVPB 05/08/16 21:00 05/15/16 20:59 Zolpidem Tartrate (Ambien) 5 mg HSPRN PRN ORAL Insomnia 05/05/16 17:00 06/04/16 16:59 GRZEGORZ MARTINEZ May 08, 2016 11:16
[2016-05-08] MEDS ORDERED: Tigecycline 100 MG in D5W 110 ML IVPB ONE (11:30)
[2016-05-08 11:33] VITALS: BP 129/75
--- NOTE | 2016-05-08 12:01 | General Progress Note ---
Assessment/Plan Assessment/Plan IMPRESSION: Osteomyelitis, recurrent wound infection with polymicrobial organisms, multiple allergies, history dehydration, history of nausea and vomiting, chronic pain syndrome, chronic opiate dependent, diabetes, anemia, prior history of transfusion. bacteremia MDR PLAN care noted antibiotics adjusted awaiting PICC change finalize care SNF discharge on tuesday wound care pain control unable to care for self at home impression, plan, and exam edited and reviewed in detail care discussed with RN Subjective Allergies: Coded Allergies: CEFTRIAXONE (Verified Allergy, Intermediate, SOB, HR-140bpm, face swollen , pt became red, 10/24/15) CODEINE (Verified Allergy, Intermediate, SWELLING, 01/03/11) LATEX (Verified Allergy, Intermediate, SWELLING, 01/03/11) PIPERACILLIN (Verified Allergy, Intermediate, Itching, 08/29/15) 08/29/15 tolerates Ceftaroline TAZOBACTAM (Verified Allergy, Intermediate, Itching, 01/29/15) POLYMYXIN B (Verified Allergy, Mild, Rash, 04/08/16) Suspected allergy reported by VANCOMYCIN (Verified Allergy, Mild, 07/15/14) ASPARAGINASE (Verified Allergy, Unknown, 01/28/14) CEFUROXIME (Unverified Allergy, Unknown, 04/19/16) IRON (Verified Allergy, Unknown, 01/28/14) Subjective comfortable dc held as PICC not placed antibiotics adjusted Objective Last 24 Hour Vital Signs Date Time Temp Pulse Resp B/P Pulse Ox O2 Delivery O2 Flow Rate FiO2 05/08/16 11:33 97.5 111 20 129/75 97 Room Air 05/08/16 09:31 97.3 05/08/16 08:13 97.3 99 20 124/74 98 Room Air 05/08/16 04:00 96.4 109 20 137/85 97 Room Air 05/08/16 00:00 97.2 105 20 136/78 98 Room Air 05/07/16 20:00 97.6 100 18 129/79 99 Room Air 05/07/16 16:00 97.0 111 19 135/84 99 Room Air Intake and Output 05/07/16 05/08/16 19:00 07:00 Intake Total 693.4 ml 460 ml Output Total 250 ml Balance 443.4 ml 460 ml Intake Oral 480 ml 360 ml IV Total 213.4 ml 100 ml Output Stool Total 250 ml # Voids 4 Height (Feet): 5 Height (Inches): 5.00 Weight (Pounds): 210 Objective GENERAL: A well-developed male, comfortable, chronically ill. HEENT: Negative. NECK: Supple. No adenopathy. Carotids 2+. LUNGS: Clear. No rhonchi or wheezes. CARDIAC: S1 and S2. Regular rhythm without murmurs, rubs, or gallops. ABDOMEN: Soft, obese, nontender. no drainage noted EXTREMITIES: Significant paraplegia. Minimal edema on the lower extremities. NEUROLOGIC: As noted above. SKIN: Noted. LUANN MICHEL May 08, 2016 12:01
[2016-05-08] MEDS ORDERED: Tubing IV Secondary IV ONE (13:17)
[2016-05-08] MEDS ORDERED: NS 275ml ONE (13:17)
[2016-05-08] MEDS ORDERED: Meropenem 1gm/NS 110ml IVPB SCH ×2 (14:00)
--- NOTE | 2016-05-08 15:40 | Cardiology Report ---
APPROVED REPORT EXAM: Two-dimensional and M-mode echocardiogram with Doppler and color Doppler. INDICATION [employer] M-Mode DIMENSIONS IVSd0.8 (0.7-1.1cm)Left Atrium (MM)4.3 (1.6-4.0cm) LVDd4.9 (3.5-5.6cm)Aortic Root2.9 (2.0-3.7cm) PWd1.3 (0.7-1.1cm)Aortic Cusp Exc.1.5 (1.5-2.0cm) LVDs3.9 (2.5-4.0cm) PWs1.3 cm Normal left ventricular chamber size, systolic function and wall motion. Left ventricular ejection fraction estimated to be 55-60%. No evidence of left ventricular hypertrophy. No evidence of pericardial fat or effusion. Right cardiac chamber sizes are within normal limits. Mild left atrial enlargement by 2D. Focal aortic valve sclerosis with adequate cusp excursion Thickened mitral valve leaflets with normal excursion. Mild mitral annulus and aortic root calcification. Pulmonic valve not well visualized. Normal tricuspid valve structure. IVC dilated at 2.3cm with minimal physiologic collapse. No evidence of vegitation. A color flow and spectral Doppler study was performed and revealed: No aortic regurgitation. No mitral regurgitation. Left ventricular diastolic dysfunction grade 1. No tricuspid regurgitation. Tricuspid systolic velocities suggests peak right ventricular systolic pressure of 19 mmHg
[2016-05-08 15:51] VITALS: BP 129/79
[2016-05-08 20:00] VITALS: BP 126/83
[2016-05-08] MEDS: Tigecycline 50 MG in D5W 110 ML IVPB SCH (21:54)
[2016-05-08] MEDS: Meropenem 1 GM in NS 55 ML IVPB SCH (23:08)
[2016-05-09] VITALS: BP 129/81
[2016-05-09 04:00] VITALS: BP 119/76
[2016-05-09] MEDS: DiphenhydrAMINE 50mg/ml Inj IVP PRN ×5 (04:11→22:26)
[2016-05-09] MEDS: Meropenem 1 GM in NS 55 ML IVPB SCH ×3 (05:52→22:26)
--- NOTE | 2016-05-09 06:09 | General Progress Note ---
Assessment/Plan Assessment/Plan IMPRESSION: Osteomyelitis, recurrent wound infection with polymicrobial organisms, multiple allergies, history dehydration, history of nausea and vomiting, chronic pain syndrome, chronic opiate dependent, diabetes, anemia, prior history of transfusion. bacteremia MDR PLAN care noted antibiotics adjusted and patient tolerating well awaiting PICC change tomorrow finalize care SNF discharge on tuesday wound care pain control unable to care for self at home dc hydration in am impression, plan, and exam edited and reviewed in detail care discussed with RN Subjective Allergies: Coded Allergies: CEFTRIAXONE (Verified Allergy, Intermediate, SOB, HR-140bpm, face swollen , pt became red, 10/24/15) CODEINE (Verified Allergy, Intermediate, SWELLING, 01/03/11) LATEX (Verified Allergy, Intermediate, SWELLING, 01/03/11) PIPERACILLIN (Verified Allergy, Intermediate, Itching, 08/29/15) 08/29/15 tolerates Ceftaroline TAZOBACTAM (Verified Allergy, Intermediate, Itching, 01/29/15) POLYMYXIN B (Verified Allergy, Mild, Rash, 04/08/16) Suspected allergy reported by MD VANCOMYCIN (Verified Allergy, Mild, 07/15/14) ASPARAGINASE (Verified Allergy, Unknown, 01/28/14) CEFUROXIME (Unverified Allergy, Unknown, 04/19/16) IRON (Verified Allergy, Unknown, 01/28/14) Subjective comfortable dc held as PICC not placed antibiotics adjusted cooperative trying to eat Objective Last 24 Hour Vital Signs Date Time Temp Pulse Resp B/P Pulse Ox O2 Delivery O2 Flow Rate FiO2 05/09/16 04:00 97.6 76 17 119/76 96 Room Air 05/09/16 00:00 97.4 72 16 129/81 94 Room Air 05/08/16 22:24 98.2 05/08/16 20:00 98.2 118 16 126/83 98 Room Air 05/08/16 15:51 97.6 115 20 129/79 97 Room Air 05/08/16 11:33 97.5 111 20 129/75 97 Room Air 05/08/16 08:13 97.3 99 20 124/74 98 Room Air Intake and Output 05/08/16 05/09/16 19:00 07:00 Intake Total 870 ml 490 ml Output Total 250 ml Balance 620 ml 490 ml Intake Oral 650 ml 380 ml IV Total 220 ml 110 ml Output Stool Total 250 ml # Voids 3 2 Height (Feet): 5 Height (Inches): 5.00 Weight (Pounds): 210 Objective GENERAL: A well-developed male, comfortable, chronically ill. HEENT: Negative. NECK: Supple. No adenopathy. Carotids 2+. LUNGS: Clear. No rhonchi or wheezes. CARDIAC: S1 and S2. Regular rhythm without murmurs, rubs, or gallops. ABDOMEN: Soft, obese, nontender. no drainage noted EXTREMITIES: Significant paraplegia. Minimal edema on the lower extremities. NEUROLOGIC: As noted above. SKIN: Noted. LUANN MICHEL May 09, 2016 06:09
[2016-05-09 06:38] LABS: BASOPHILS % (AUTO) 0.5 % (0.0-2.0); EOSINOPHILS % (AUTO) 1.6 % (0.0-3.0); LYMPHOCYTES % (AUTO) 22.7 % (20.0-45.0); MEAN CORPUSCULAR HEMOGLOBIN 27.5 PG (27.0-31.0); MEAN CORPUSCULAR HGB CONC 32.7 G/DL (32.0-36.0); MEAN CORPUSCULAR VOLUME 84 FL (80-99); MEAN PLATELET VOLUME 7.6 FL (6.5-10.1); MONOCYTES % (AUTO) 3.9 % (1.0-10.0); NEUTROPHILS % (AUTO) 71.2 % (45.0-75.0); PLATELET COUNT 163 K/UL (150-450); RED BLOOD COUNT 3.24 M/UL (4.20-5.40); RED CELL DISTRIBUTION WIDTH 16.9 % (11.6-14.8); WHITE BLOOD COUNT 9.6 K/UL (4.8-10.8)
[2016-05-09 06:56] LABS: ANION GAP 7 (5-15); CALCIUM 7.5 mg/dL (8.6-10.2); CARBON DIOXIDE 31 mEQ/L (20-30); CHLORIDE 101 mEQ/L (98-107); CREATININE 0.6 mg/dL (0.5-0.9); GLOMERULAR FILTRATION RATE > 60 mL/min (>60); HEMOLYSIS 2; SODIUM 139 mEQ/L (135-145)
[2016-05-09 07:59] VITALS: BP 131/85
[2016-05-09] MEDS: Heparin 5000 units/ml inj SUBQ SCH ×2 (09:00→21:00)
[2016-05-09] MEDS: Tigecycline 50 MG in D5W 110 ML IVPB SCH ×2 (10:04→21:27)
[2016-05-09 11:34] VITALS: BP 134/88
[2016-05-09 16:00] VITALS: BP 126/77
--- NOTE | 2016-05-09 16:55 | Infectious Diseases Prog Note ---
Assessment/Plan Assessment/Plan ASSESSMENT AND PLAN: 1. e.coli/morganella and klebsiella sacral wound infection, high suspicion for osteo, ct abdomen and pelvis with possible lumbar spine osteo/discitis - - culture from bone biopsy, could not find path to r/o osteo when I discussed this with pathology MD on last visit - watch labs, sed rate - wound treatment per plastic surgery and protocol - consider spine surgery evaluation for further recs about possible lumbar spine osteo/discitis and further imaging, w/u etc. - meropenem for 27 days to treat as osteo osteo for total of 6 weeks (may need to adjust abx depending on below bc results) - patient will need ecf 2. acinetobaccter/entertainment agent - likely line infection - tygacil for multi drug resistant acinetobacter entertainment agent - check surveillance bc, check labs - check id bc and adjust abx - recent CT scan abdomen and pelvis without abscess - surveillance blood cultures negative - echo - no vegetations - change line/picc 3. nausea and vomiting - gi w/u 4. Weight loss, anemia, hx lois resolved 5. History of osteoarthritis and treatment. 6. Colostomy. 7. Paraplegia. 8. Anemia. 9. ? diabetes - patient denies dm hx, bs elevated only with infection per pt 10. Chronic pain management and chronic pain syndrome, anxiety 11. History of cholelithiasis. 12. Pain management for primary, opiate dependency 13. Multiple allergies to asparaginase, Rocephin, codeine, iron, Latex, piperacillin, tazobactam, and vancomycin. 14. wound care per protocol and plastic surgery 15. The case was discussed with RN 16. The case was discussed with the patient. 17. fh-nc, sh-negative, mar noted 18. notes and records reviewed 19. communicated with Dr. Healy 20. d/w patient and answered questions Subjective Constitutional: Reports: fatigue, Denies: fever HEENT: Denies: congestion Respiratory: Denies: shortness of breath Cardiovascular: Denies: chest pain Gastrointestinal/Abdominal: Denies: diarrhea, nausea, vomiting Genitourinary: Reports: other - no bay Skin: Reports: rash - no change in rash Musculoskeletal: Denies: pain Allergies: Coded Allergies: CEFTRIAXONE (Verified Allergy, Intermediate, SOB, HR-140bpm, face swollen , pt became red, 10/24/15) CODEINE (Verified Allergy, Intermediate, SWELLING, 01/03/11) LATEX (Verified Allergy, Intermediate, SWELLING, 01/03/11) PIPERACILLIN (Verified Allergy, Intermediate, Itching, 08/29/15) 08/29/15 tolerates Ceftaroline TAZOBACTAM (Verified Allergy, Intermediate, Itching, 01/29/15) POLYMYXIN B (Verified Allergy, Mild, Rash, 04/08/16) Suspected allergy reported by VANCOMYCIN (Verified Allergy, Mild, 07/15/14) ASPARAGINASE (Verified Allergy, Unknown, 01/28/14) CEFUROXIME (Unverified Allergy, Unknown, 04/19/16) IRON (Verified Allergy, Unknown, 01/28/14) Objective Vital Signs Last 24 Hour Vital Signs Date Time Temp Pulse Resp B/P Pulse Ox O2 Delivery O2 Flow Rate FiO2 05/09/16 14:03 98.0 05/09/16 11:34 98.0 97 20 134/88 99 Room Air 05/09/16 07:59 98.2 93 20 131/85 98 Room Air 05/09/16 04:00 97.6 76 17 119/76 96 Room Air 05/09/16 00:00 97.4 72 16 129/81 94 Room Air 05/08/16 20:00 98.2 118 16 126/83 98 Room Air Height (Feet): 5 Height (Inches): 5.00 Weight (Pounds): 210 General Appearance: no acute distress HEENT: normocephalic, atraumatic, anicteric, mucous membranes moist, PERRL, EOMI, pharynx normal, supple, no JVD Respiratory/Chest: lungs clear, normal breath sounds, no respiratory distress, no accessory muscle use Cardiovascular: normal rate, regular rhythm, regularly irregular, no gallop/ murmur, no JVD Abdomen: normal bowel sounds, soft, non tender, no organomegaly, non distended Genitourinary: other - no bay Extremities: no cyanosis Skin: rash - no change in rash 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 Complete 05/05/16 12:30 Rectum VRE Culture - Final NO VANCOMYCIN RESISTANT ENTEROCOCCUS ... Complete Microbiology Date/Time Source Procedure Growth Status 05/07/16 12:45 Blood Blood Culture - Preliminary NO GROWTH AFTER 24 HOURS Resulted 05/07/16 12:45 Blood Blood Culture - Preliminary NO GROWTH AFTER 24 HOURS Resulted initial bc - entertainment agent, acinetobacter, gram neg Laboratory Tests Test 05/09/16 06:00 White Blood Count 9.6 K/UL (4.8-10.8) Red Blood Count 3.24 M/UL (4.20-5.40) L Hemoglobin 8.9 G/DL (12.0-16.0) L Hematocrit 27.2 % (37.0-47.0) L Mean Corpuscular Volume 84 FL (80-99) Mean Corpuscular Hemoglobin 27.5 PG (27.0-31.0) Mean Corpuscular Hemoglobin Concent 32.7 G/DL (32.0-36.0) Red Cell Distribution Width 16.9 % (11.6-14.8) H Platelet Count 163 K/UL (150-450) Mean Platelet Volume 7.6 FL (6.5-10.1) Neutrophils (%) (Auto) 71.2 % (45.0-75.0) Lymphocytes (%) (Auto) 22.7 % (20.0-45.0) Monocytes (%) (Auto) 3.9 % (1.0-10.0) Eosinophils (%) (Auto) 1.6 % (0.0-3.0) Basophils (%) (Auto) 0.5 % (0.0-2.0) Sodium Level 139 mEQ/L (135-145) Potassium Level 4.0 mEQ/L (3.4-4.9) Chloride Level 101 mEQ/L (98-107) Carbon Dioxide Level 31 mEQ/L (20-30) H Anion Gap 7 (5-15) Blood Urea Nitrogen 14 mg/dL (7-23) Creatinine 0.6 mg/dL (0.5-0.9) Estimat Glomerular Filtration Rate > 60 mL/min (>60) Glucose Level 86 mg/dL (74-106) Calcium Level 7.5 mg/dL (8.6-10.2) L Current Medications Medications (Trade) Dose Ordered Sig/Pineda Route PRN Reason Start Time Stop Time Status Last Admin Dose Admin Acetaminophen (Tylenol) 650 mg Q4H PRN ORAL Mild Pain (Pain Scale 1-3) 05/05/16 17:00 06/04/16 16:59 Acetaminophen (Tylenol) 650 mg Q4H PRN ORAL fever 05/05/16 17:00 06/04/16 16:59 Al Hydroxide/Mg Hydroxide (Mylanta II) 30 ml Q4H PRN ORAL dyspepsia 05/05/16 17:00 06/04/16 16:59 Dextrose (Dextrose 50%) STAT PRN IV Hypoglycemia 05/05/16 17:00 06/04/16 16:59 Diphenhydramine HCl 25 mg 25 mg Q3H PRN IVP Itching 05/05/16 17:00 06/04/16 16:59 05/09/16 13:33 Heparin Sodium (Porcine) (Heparin 5000 units/ml) 5,000 units EVERY 12 HOURS SUBQ 05/05/16 21:00 06/04/16 20:59 05/06/16 21:28 Hydromorphone HCl (Dilaudid) 2 mg Q3H PRN IVP Severe Pain (Pain Scale 7-10) 05/05/16 17:00 05/12/16 16:59 05/09/16 13:33 Magnesium Hydroxide (Mom) 30 ml HSPRN PRN ORAL Constipation 05/05/16 17:00 06/04/16 16:59 Meropenem/Sodium Chloride (Merrem/Sodium Chloride) 55 ml @ 110 mls/hr Q8HR IVPB 05/08/16 22:00 05/13/16 21:59 05/09/16 13:33 Ondansetron HCl (Zofran) 4 mg Q6H PRN IVP Nausea & Vomiting 05/05/16 17:00 06/04/16 16:59 05/08/16 17:43 Pantoprazole (Protonix) 40 mg DAILY ORAL 05/06/16 09:00 06/05/16 08:59 05/09/16 10:04 Tigecycline 50 mg/ Dextrose 110 ml @ 220 mls/hr EVERY 12 HOURS IVPB 05/08/16 21:00 2/17 20:59 05/09/16 10:04 Zolpidem Tartrate (Ambien) 5 mg HSPRN PRN ORAL Insomnia 05/05/16 17:00 06/04/16 16:59 GRZEGORZ MARTINEZ May 09, 2016 16:55
[2016-05-09 20:00] VITALS: BP 138/77
[2016-05-10] VITALS: BP 128/79
[2016-05-10] MEDS: DiphenhydrAMINE 50mg/ml Inj IVP PRN ×4 (01:11→13:31)
[2016-05-10 04:00] VITALS: BP 142/85
[2016-05-10] MEDS: Meropenem 1 GM in NS 55 ML IVPB SCH ×2 (05:47→13:32)
[2016-05-10 08:14] VITALS: BP 115/77
--- NOTE | 2016-05-10 08:51 | General Progress Note ---
Assessment/Plan Assessment/Plan IMPRESSION: Osteomyelitis, recurrent wound infection with polymicrobial organisms, multiple allergies, history dehydration, history of nausea and vomiting, chronic pain syndrome, chronic opiate dependent, diabetes, anemia, prior history of transfusion. bacteremia MDR PLAN care noted antibiotics adjusted and patient tolerating well for total of 6 weeks awaiting PICC change today finalize care SNF discharge today wound care and follow up after discharge pain control unable to care for self at home off hydration impression, plan, and exam edited and reviewed in detail care discussed with RN Subjective Allergies: Coded Allergies: CEFTRIAXONE (Verified Allergy, Intermediate, SOB, HR-140bpm, face swollen , pt became red, 10/24/15) CODEINE (Verified Allergy, Intermediate, SWELLING, 01/03/11) LATEX (Verified Allergy, Intermediate, SWELLING, 01/03/11) PIPERACILLIN (Verified Allergy, Intermediate, Itching, 08/29/15) 08/29/15 tolerates Ceftaroline TAZOBACTAM (Verified Allergy, Intermediate, Itching, 01/29/15) POLYMYXIN B (Verified Allergy, Mild, Rash, 04/08/16) Suspected allergy reported by VANCOMYCIN (Verified Allergy, Mild, 07/15/14) ASPARAGINASE (Verified Allergy, Unknown, 01/28/14) CEFUROXIME (Unverified Allergy, Unknown, 04/19/16) IRON (Verified Allergy, Unknown, 01/28/14) Subjective comfortable PICC today antibiotics noted cooperative agreeable to plan Objective Last 24 Hour Vital Signs Date Time Temp Pulse Resp B/P Pulse Ox O2 Delivery O2 Flow Rate FiO2 05/10/16 08:14 97.6 105 20 115/77 97 Room Air 05/10/16 04:00 98.2 67 20 142/85 97 Room Air 05/10/16 00:00 98.1 119 20 128/79 97 Room Air 05/09/16 20:31 97.9 05/09/16 20:00 97.7 114 20 138/77 99 Room Air 05/09/16 16:00 97.9 110 22 126/77 97 Room Air 05/09/16 11:34 98.0 97 20 134/88 99 Room Air Intake and Output 05/09/16 05/10/16 19:00 07:00 Intake Total 750 ml 840 ml Output Total 200 ml Balance 550 ml 840 ml Intake Oral 420 ml 840 ml IV Total 330 ml Output Stool Total 200 ml # Voids 1 1 Height (Feet): 5 Height (Inches): 5.00 Weight (Pounds): 210 Objective GENERAL: A well-developed male, comfortable, chronically ill. HEENT: Negative. NECK: Supple. No adenopathy. Carotids 2+. LUNGS: Clear. No rhonchi or wheezes. CARDIAC: S1 and S2. Regular rhythm without murmurs, rubs, or gallops. ABDOMEN: Soft, obese, nontender. no drainage noted EXTREMITIES: Significant paraplegia. Minimal edema on the lower extremities. NEUROLOGIC: As noted above. SKIN: Noted. LUANN MICHEL May 10, 2016 08:51
[2016-05-10] MEDS: Tigecycline 50 MG in D5W 110 ML IVPB SCH ×2 (08:54→21:44)
[2016-05-10] MEDS: Heparin 5000 units/ml inj SUBQ SCH ×2 (09:00→21:00)
[2016-05-10 11:34] VITALS: BP 134/82
[2016-05-10 16:00] VITALS: BP 126/82
[2016-05-10] MEDS ORDERED: LORazepam Inj 2mg/ml 1ml IV ONE (18:45)
[2016-05-10 19:00] VITALS: BP 120/71
--- NOTE | 2016-05-10 19:07 | Infectious Diseases Prog Note ---
Assessment/Plan Assessment/Plan ASSESSMENT AND PLAN: 1. e.coli/morganella and klebsiella sacral wound infection, high suspicion for osteo, ct abdomen and pelvis with possible lumbar spine osteo/discitis - - culture from bone biopsy, could not find path to r/o osteo when I discussed this with pathology MD on last visit - watch labs, sed rate - wound treatment per plastic surgery and protocol - consider spine surgery evaluation for further recs about possible lumbar spine osteo/discitis and further imaging, w/u etc. - meropenem for 26 days to treat as osteo osteo for total of 6 weeks (may need to adjust abx depending on below bc results) - patient will need ecf 2. acinetobaccter/crosstie inspector - likely line infection - tygacil for multi drug resistant acinetobacter and crosstie inspector - surveillance bc negative - recent CT scan abdomen and pelvis without abscess - surveillance blood cultures negative - echo - no vegetations - s/p line/picc 3. tachycardia - w/u per primary, check bc again 4. n/v improved 5. History of osteoarthritis and treatment. 6. Colostomy. 7. Paraplegia. 8. Anemia. 9. ? diabetes - patient denies dm hx, bs elevated only with infection per pt 10. Chronic pain management and chronic pain syndrome, anxiety 11. History of cholelithiasis. 12. Pain management for primary, opiate dependency 13. Multiple allergies to asparaginase, Rocephin, codeine, iron, Latex, piperacillin, tazobactam, and vancomycin. 14. wound care per protocol and plastic surgery 15. The case was discussed with RN 16. The case was discussed with the patient. 17. fh-nc, sh-negative, mar noted 18. notes and records reviewed 19. communicated with Dr. Healy 20. d/w patient and answered questions Subjective Constitutional: Reports: fatigue, other - tachycardia, Denies: fever HEENT: Denies: congestion Respiratory: Denies: shortness of breath Gastrointestinal/Abdominal: Reports: other - + colostomy, Denies: nausea, vomiting Neurologic: Denies: headache Psychiatric: Denies: depression Skin: Reports: rash - no new rash Allergies: Coded Allergies: CEFTRIAXONE (Verified Allergy, Intermediate, SOB, HR-140bpm, face swollen , pt became red, 10/24/15) CODEINE (Verified Allergy, Intermediate, SWELLING, 01/03/11) LATEX (Verified Allergy, Intermediate, SWELLING, 01/03/11) PIPERACILLIN (Verified Allergy, Intermediate, Itching, 08/29/15) 08/29/15 tolerates Ceftaroline TAZOBACTAM (Verified Allergy, Intermediate, Itching, 01/29/15) POLYMYXIN B (Verified Allergy, Mild, Rash, 04/08/16) Suspected allergy reported by VANCOMYCIN (Verified Allergy, Mild, 07/15/14) ASPARAGINASE (Verified Allergy, Unknown, 01/28/14) CEFUROXIME (Unverified Allergy, Unknown, 04/19/16) IRON (Verified Allergy, Unknown, 01/28/14) Objective Vital Signs Last 24 Hour Vital Signs Date Time Temp Pulse Resp B/P Pulse Ox O2 Delivery O2 Flow Rate FiO2 05/10/16 16:59 97.7 05/10/16 16:00 97.7 100 20 126/82 98 Room Air 05/10/16 11:34 97.7 108 19 134/82 98 Room Air 05/10/16 08:14 97.6 105 20 115/77 97 Room Air 05/10/16 04:00 98.2 67 20 142/85 97 Room Air 05/10/16 00:00 98.1 119 20 128/79 97 Room Air 05/09/16 20:00 97.7 114 20 138/77 99 Room Air Height (Feet): 5 Height (Inches): 5.00 Weight (Pounds): 210 General Appearance: no acute distress HEENT: normocephalic, atraumatic, anicteric, mucous membranes moist, PERRL, EOMI, pharynx normal, supple, no JVD Respiratory/Chest: lungs clear, normal breath sounds, no respiratory distress, no accessory muscle use Cardiovascular: regular rhythm, no gallop/murmur, no JVD, tachycardia Abdomen: normal bowel sounds, soft, non tender, no organomegaly, non distended Genitourinary: other - no bay Extremities: no cyanosis Skin: rash - rash stable 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 Complete 05/05/16 12:30 Rectum VRE Culture - Final NO VANCOMYCIN RESISTANT ENTEROCOCCUS ... Complete Labs Test 05/09/16 06:00 White Blood Count 9.6 K/UL (4.8-10.8) Red Blood Count 3.24 M/UL (4.20-5.40) Hemoglobin 8.9 G/DL (12.0-16.0) Hematocrit 27.2 % (37.0-47.0) Mean Corpuscular Volume 84 FL (80-99) Mean Corpuscular Hemoglobin 27.5 PG (27.0-31.0) Mean Corpuscular Hemoglobin Concent 32.7 G/DL (32.0-36.0) Red Cell Distribution Width 16.9 % (11.6-14.8) Platelet Count 163 K/UL (150-450) Mean Platelet Volume 7.6 FL (6.5-10.1) Neutrophils (%) (Auto) 71.2 % (45.0-75.0) Lymphocytes (%) (Auto) 22.7 % (20.0-45.0) Monocytes (%) (Auto) 3.9 % (1.0-10.0) Eosinophils (%) (Auto) 1.6 % (0.0-3.0) Basophils (%) (Auto) 0.5 % (0.0-2.0) Sodium Level 139 mEQ/L (135-145) Potassium Level 4.0 mEQ/L (3.4-4.9) Chloride Level 101 mEQ/L (98-107) Carbon Dioxide Level 31 mEQ/L (20-30) Anion Gap 7 (5-15) Blood Urea Nitrogen 14 mg/dL (7-23) Creatinine 0.6 mg/dL (0.5-0.9) Estimat Glomerular Filtration Rate > 60 mL/min (>60) Glucose Level 86 mg/dL (74-106) Calcium Level 7.5 mg/dL (8.6-10.2) Current Medications Medications (Trade) Dose Ordered Sig/Pineda Route PRN Reason Start Time Stop Time Status Last Admin Dose Admin Acetaminophen (Tylenol) 650 mg Q4H PRN ORAL Mild Pain (Pain Scale 1-3) 05/05/16 17:00 06/04/16 16:59 Acetaminophen (Tylenol) 650 mg Q4H PRN ORAL fever 05/05/16 17:00 06/04/16 16:59 Al Hydroxide/Mg Hydroxide (Mylanta II) 30 ml Q4H PRN ORAL dyspepsia 05/05/16 17:00 06/04/16 16:59 Dextrose (Dextrose 50%) STAT PRN IV Hypoglycemia 05/05/16 17:00 06/04/16 16:59 Diphenhydramine HCl 25 mg 25 mg Q3H PRN IVP Itching 05/05/16 17:00 06/04/16 16:59 05/10/16 13:31 Heparin Sodium (Porcine) (Heparin 5000 units/ml) 5,000 units EVERY 12 HOURS SUBQ 05/05/16 21:00 06/04/16 20:59 05/06/16 21:28 Hydromorphone HCl (Dilaudid) 2 mg Q3H PRN IVP Severe Pain (Pain Scale 7-10) 05/05/16 17:00 05/12/16 16:59 05/10/16 16:29 Magnesium Hydroxide (Mom) 30 ml HSPRN PRN ORAL Constipation 05/05/16 17:00 06/04/16 16:59 Meropenem/Sodium Chloride (Merrem/Sodium Chloride) 55 ml @ 110 mls/hr Q8HR IVPB 05/08/16 22:00 05/13/16 21:59 05/10/16 13:32 Ondansetron HCl (Zofran) 4 mg Q6H PRN IVP Nausea & Vomiting 05/05/16 17:00 06/04/16 16:59 05/10/16 16:35 Pantoprazole (Protonix) 40 mg DAILY ORAL 05/06/16 09:00 06/05/16 08:59 05/10/16 08:54 Tigecycline 50 mg/ Dextrose 110 ml @ 220 mls/hr EVERY 12 HOURS IVPB 05/08/16 21:00 05/15/16 20:59 05/10/16 08:54 Zolpidem Tartrate (Ambien) 5 mg HSPRN PRN ORAL Insomnia 05/05/16 17:00 06/04/16 16:59 GRZEGORZ MARTINEZ May 10, 2016 19:07
[2016-05-11] VITALS (7 sets, daily range): BP systolic 88–126; BP diastolic 53–77
[2016-05-11] MEDS: Meropenem 1 GM in NS 55 ML IVPB SCH ×5 (06:44→22:30)
[2016-05-11] MEDS: DiphenhydrAMINE 50mg/ml Inj IVP PRN ×4 (06:50→19:43)
[2016-05-11 08:04] LABS: BASOPHILS % (AUTO) 0.4 % (0.0-2.0); EOSINOPHILS % (AUTO) 0.9 % (0.0-3.0); LYMPHOCYTES % (AUTO) 16.4 % (20.0-45.0); MEAN CORPUSCULAR HEMOGLOBIN 27.6 PG (27.0-31.0); MEAN CORPUSCULAR HGB CONC 33.5 G/DL (32.0-36.0); MEAN CORPUSCULAR VOLUME 83 FL (80-99); MEAN PLATELET VOLUME 7.7 FL (6.5-10.1); MONOCYTES % (AUTO) 4.3 % (1.0-10.0); PLATELET COUNT 313 K/UL (150-450); RED BLOOD COUNT 3.71 M/UL (4.20-5.40); RED CELL DISTRIBUTION WIDTH 16.9 % (11.6-14.8)
[2016-05-11 08:34] LABS: ANION GAP 10 (5-15); CALCIUM 7.6 mg/dL (8.6-10.2); CARBON DIOXIDE 28 mEQ/L (20-30); CHLORIDE 100 mEQ/L (98-107); CREATININE 0.5 mg/dL (0.5-0.9); GLOMERULAR FILTRATION RATE > 60 mL/min (>60); HEMOLYSIS 0; POTASSIUM 4.6 mEQ/L (3.4-4.9); SODIUM 138 mEQ/L (135-145)
[2016-05-11] MEDS: Heparin 5000 units/ml inj SUBQ SCH ×2 (09:00→21:22)
[2016-05-11] MEDS: Tigecycline 50 MG in D5W 110 ML IVPB SCH ×2 (09:54→21:18)
--- NOTE | 2016-05-11 12:19 | Infectious Diseases Prog Note ---
Assessment/Plan Assessment/Plan ASSESSMENT AND PLAN: 1. e.coli/morganella and klebsiella sacral wound infection, high suspicion for osteo, ct abdomen and pelvis with possible lumbar spine osteo/discitis - - culture from bone biopsy, could not find path to r/o osteo when I discussed this with pathology MD on last visit - watch labs, sed rate - wound treatment per plastic surgery and protocol - consider spine surgery evaluation for further recs about possible lumbar spine osteo/discitis and further imaging, w/u etc. - meropenem for 25 days to treat as osteo osteo for total of 6 weeks (may need to adjust abx depending on below bc results) - patient will need ecf 2. acinetobaccter/career technical supervisor - likely line infection - tygacil for multi drug resistant acinetobacter and career technical supervisor - day # 4 - surveillance bc negative - recent CT scan abdomen and pelvis without abscess - surveillance blood cultures negative - echo - no vegetations - s/p line/picc 3. tachycardia - w/u per primary, check bc again, ct chest ordered to r/o pe 4. n/v improved 5. History of osteoarthritis and treatment. 6. Colostomy. 7. Paraplegia. 8. Anemia. 9. ? diabetes - patient denies dm hx, bs elevated only with infection per pt 10. Chronic pain management and chronic pain syndrome, anxiety 11. History of cholelithiasis. 12. Pain management for primary, opiate dependency 13. Multiple allergies to asparaginase, Rocephin, codeine, iron, Latex, piperacillin, tazobactam, and vancomycin. 14. wound care per protocol and plastic surgery 15. The case was discussed with RN 16. The case was discussed with the patient. 17. fh-nc, sh-negative, mar noted 18. notes and records reviewed 19. communicated with Dr. Healy 20. d/w patient and answered questions Subjective Constitutional: Reports: other - sinus tachycardia, Denies: fever HEENT: Denies: congestion Respiratory: Reports: dry cough, Denies: shortness of breath Cardiovascular: Denies: chest pain, palpitations Gastrointestinal/Abdominal: Denies: nausea, vomiting Neurologic: Denies: headache Psychiatric: Denies: depression Skin: Reports: rash - no change in rash Hematologic: Denies: bleeding Musculoskeletal: Denies: pain Allergies: Coded Allergies: CEFTRIAXONE (Verified Allergy, Intermediate, SOB, HR-140bpm, face swollen , pt became red, 10/24/15) CODEINE (Verified Allergy, Intermediate, SWELLING, 01/03/11) LATEX (Verified Allergy, Intermediate, SWELLING, 01/03/11) PIPERACILLIN (Verified Allergy, Intermediate, Itching, 08/29/15) 08/29/15 tolerates Ceftaroline TAZOBACTAM (Verified Allergy, Intermediate, Itching, 01/29/15) POLYMYXIN B (Verified Allergy, Mild, Rash, 04/08/16) Suspected allergy reported by VANCOMYCIN (Verified Allergy, Mild, 07/15/14) ASPARAGINASE (Verified Allergy, Unknown, 01/28/14) CEFUROXIME (Unverified Allergy, Unknown, 04/19/16) IRON (Verified Allergy, Unknown, 01/28/14) Objective Vital Signs Last 24 Hour Vital Signs Date Time Temp Pulse Resp B/P Pulse Ox O2 Delivery O2 Flow Rate FiO2 05/11/16 11:56 99.1 137 18 90/54 96 Room Air 05/11/16 08:22 97.5 130 18 111/72 97 Room Air 05/11/16 04:25 97.0 95 20 118/77 97 Room Air 05/11/16 03:49 134 05/11/16 00:00 134 05/11/16 00:00 97.0 133 24 126/73 97 Room Air 05/10/16 19:00 97.3 100 20 120/71 97 Room Air 05/10/16 16:59 97.7 05/10/16 16:00 97.7 100 20 126/82 98 Room Air Height (Feet): 5 Height (Inches): 5.00 Weight (Pounds): 210 General Appearance: no acute distress HEENT: normocephalic, atraumatic, anicteric, mucous membranes moist, PERRL, EOMI, pharynx normal, supple, no JVD Respiratory/Chest: lungs clear, normal breath sounds, no respiratory distress, no accessory muscle use Cardiovascular: regular rhythm, no gallop/murmur, no JVD, tachycardia Abdomen: normal bowel sounds, soft, non tender, no organomegaly, non distended Genitourinary: other - no bay Extremities: no cyanosis Skin: rash - rash stable 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 Complete 05/05/16 12:30 Rectum VRE Culture - Final NO VANCOMYCIN RESISTANT ENTEROCOCCUS ... Complete Laboratory Tests Test 05/11/16 06:20 White Blood Count 9.0 K/UL (4.8-10.8) Red Blood Count 3.71 M/UL (4.20-5.40) L Hemoglobin 10.2 G/DL (12.0-16.0) L Hematocrit 30.6 % (37.0-47.0) L Mean Corpuscular Volume 83 FL (80-99) Mean Corpuscular Hemoglobin 27.6 PG (27.0-31.0) Mean Corpuscular Hemoglobin Concent 33.5 G/DL (32.0-36.0) Red Cell Distribution Width 16.9 % (11.6-14.8) H Platelet Count 313 K/UL (150-450) Mean Platelet Volume 7.7 FL (6.5-10.1) Neutrophils (%) (Auto) 78.0 % (45.0-75.0) H Lymphocytes (%) (Auto) 16.4 % (20.0-45.0) L Monocytes (%) (Auto) 4.3 % (1.0-10.0) Eosinophils (%) (Auto) 0.9 % (0.0-3.0) Basophils (%) (Auto) 0.4 % (0.0-2.0) Sodium Level 138 mEQ/L (135-145) Potassium Level 4.6 mEQ/L (3.4-4.9) Chloride Level 100 mEQ/L (98-107) Carbon Dioxide Level 28 mEQ/L (20-30) Anion Gap 10 (5-15) Blood Urea Nitrogen 16 mg/dL (7-23) Creatinine 0.5 mg/dL (0.5-0.9) Estimat Glomerular Filtration Rate > 60 mL/min (>60) Glucose Level 87 mg/dL (74-106) Calcium Level 7.6 mg/dL (8.6-10.2) L Current Medications Medications (Trade) Dose Ordered Sig/Pineda Route PRN Reason Start Time Stop Time Status Last Admin Dose Admin Acetaminophen (Tylenol) 650 mg Q4H PRN ORAL Mild Pain (Pain Scale 1-3) 05/05/16 17:00 06/04/16 16:59 Acetaminophen (Tylenol) 650 mg Q4H PRN ORAL fever 05/05/16 17:00 06/04/16 16:59 Al Hydroxide/Mg Hydroxide (Mylanta II) 30 ml Q4H PRN ORAL dyspepsia 05/05/16 17:00 06/04/16 16:59 Dextrose (Dextrose 50%) STAT PRN IV Hypoglycemia 05/05/16 17:00 06/04/16 16:59 Diphenhydramine HCl 25 mg 25 mg Q3H PRN IVP Itching 05/05/16 17:00 06/04/16 16:59 05/11/16 10:01 Heparin Sodium (Porcine) (Heparin 5000 units/ml) 5,000 units EVERY 12 HOURS SUBQ 05/05/16 21:00 06/04/16 20:59 05/06/16 21:28 Hydromorphone HCl (Dilaudid) 2 mg Q3H PRN IVP Severe Pain (Pain Scale 7-10) 05/05/16 17:00 05/12/16 16:59 05/11/16 10:00 Magnesium Hydroxide (Mom) 30 ml HSPRN PRN ORAL Constipation 05/05/16 17:00 06/04/16 16:59 Meropenem/Sodium Chloride (Merrem/Sodium Chloride) 55 ml @ 110 mls/hr Q8HR IVPB 05/08/16 22:00 05/13/16 21:59 05/11/16 06:44 Ondansetron HCl (Zofran) 4 mg Q6H PRN IVP Nausea & Vomiting 05/05/16 17:00 06/04/16 16:59 05/10/16 16:35 Pantoprazole (Protonix) 40 mg DAILY ORAL 05/06/16 09:00 06/05/16 08:59 05/11/16 09:54 Tigecycline 50 mg/ Dextrose 110 ml @ 220 mls/hr EVERY 12 HOURS IVPB 05/08/16 21:00 05/15/16 20:59 05/11/16 09:54 Zolpidem Tartrate (Ambien) 5 mg HSPRN PRN ORAL Insomnia 05/05/16 17:00 06/04/16 16:59 GRZEGORZ MARTINEZ May 11, 2016 12:19
--- NOTE | 2016-05-11 14:18 | Diagnostic Imaging Report ---
APPROVED REPORT CPT Code: 37974 Present Symptoms Lower Extremity Edema: Bilateral Technically difficult study due to vessel depth (thigh and mid calf area). BILATERAL: Imaging reveals a patent deep venous system bilaterally. There is no evidence of thrombus within the femoral, popliteal or distal tibial segments. The greater saphenous veins are also within normal limits. Doppler indicates normal spontaneous flow within these segments.
[2016-05-11] MEDS ORDERED: Tubing IV Secondary IV ONE (19:47)
[2016-05-11] MEDS ORDERED: NS 275ml ONE (19:47)
--- NOTE | 2016-05-11 20:00 | General Progress Note ---
Assessment/Plan Assessment/Plan IMPRESSION: Osteomyelitis, recurrent wound infection with polymicrobial organisms, multiple allergies, history dehydration, history of nausea and vomiting, chronic pain syndrome, chronic opiate dependent, diabetes, anemia, prior history of transfusion. bacteremia MDR, tachycardia PLAN care noted venous US negative CTPA ordered cards evaluation antibiotics adjusted and patient tolerating well for total of 6 weeks PICC changed finalize care SNF discharge pending improvement in heart rate wound care and follow up after discharge pain control not stable for SNF impression, plan, and exam edited and reviewed in detail care discussed with RN Subjective Allergies: Coded Allergies: CEFTRIAXONE (Verified Allergy, Intermediate, SOB, HR-140bpm, face swollen , pt became red, 10/24/15) CODEINE (Verified Allergy, Intermediate, SWELLING, 01/03/11) LATEX (Verified Allergy, Intermediate, SWELLING, 01/03/11) PIPERACILLIN (Verified Allergy, Intermediate, Itching, 08/29/15) 08/29/15 tolerates Ceftaroline TAZOBACTAM (Verified Allergy, Intermediate, Itching, 01/29/15) POLYMYXIN B (Verified Allergy, Mild, Rash, 04/08/16) Suspected allergy reported by MD VANCOMYCIN (Verified Allergy, Mild, 07/15/14) ASPARAGINASE (Verified Allergy, Unknown, 01/28/14) CEFUROXIME (Unverified Allergy, Unknown, 04/19/16) IRON (Verified Allergy, Unknown, 01/28/14) Subjective dc held persistently tachycardic Objective Last 24 Hour Vital Signs Date Time Temp Pulse Resp B/P Pulse Ox O2 Delivery O2 Flow Rate FiO2 05/11/16 16:00 98.1 143 20 88/53 93 Room Air 05/11/16 12:00 138 05/11/16 11:56 99.1 137 18 90/54 96 Room Air 05/11/16 08:22 97.5 130 18 111/72 97 Room Air 05/11/16 08:00 128 05/11/16 04:25 97.0 95 20 118/77 97 Room Air 05/11/16 03:49 134 05/11/16 00:00 134 05/11/16 00:00 97.0 133 24 126/73 97 Room Air Intake and Output 05/10/16 05/11/16 19:00 07:00 Intake Total 560 ml 350 ml Output Total 250 ml 850 ml Balance 310 ml -500 ml Intake Oral 560 ml 240 ml IV Total 110 ml Output Urine Total 400 ml Stool Total 250 ml 450 ml # Voids 2 Laboratory Tests 05/11/16 06:20: White Blood Count 9.0, Red Blood Count 3.71L, Hemoglobin 10.2L, Hematocrit 30.6L , Mean Corpuscular Volume 83, Mean Corpuscular Hemoglobin 27.6, Mean Corpuscular Hemoglobin Concent 33.5, Red Cell Distribution Width 16.9H, Platelet Count 313, Mean Platelet Volume 7.7, Neutrophils (%) (Auto) 78.0H, Lymphocytes (%) (Auto) 16.4L, Monocytes (%) (Auto) 4.3, Eosinophils (%) (Auto) 0.9, Basophils (%) (Auto) 0.4, Sodium Level 138, Potassium Level 4.6, Chloride Level 100, Carbon Dioxide Level 28, Anion Gap 10, Blood Urea Nitrogen 16, Creatinine 0.5, Estimat Glomerular Filtration Rate > 60, Glucose Level 87, Calcium Level 7.6L Height (Feet): 5 Height (Inches): 5.00 Weight (Pounds): 210 Objective GENERAL: A well-developed male, comfortable, chronically ill. HEENT: Negative. NECK: Supple. No adenopathy. Carotids 2+. LUNGS: Clear. No rhonchi or wheezes. CARDIAC: S1 and S2. tachycardia rhythm without murmurs, rubs, or gallops. ABDOMEN: Soft, obese, nontender. no drainage noted EXTREMITIES: Significant paraplegia. Minimal edema on the lower extremities. NEUROLOGIC: As noted above. SKIN: Noted. LUANN MICHEL May 11, 2016 20:00
[2016-05-12] VITALS: BP 106/55
[2016-05-12] MEDS: DiphenhydrAMINE 50mg/ml Inj IVP PRN ×4 (03:36→19:36)
[2016-05-12 04:00] VITALS: BP 101/53
[2016-05-12] MEDS: Meropenem 1 GM in NS 55 ML IVPB SCH ×2 (05:47→13:32)
--- NOTE | 2016-05-12 07:09 | Consultation ---
DATE OF CONSULTATION: 05/11/2016 CONSULTING PHYSICIAN: Karthik Parra M.D. REQUESTING PHYSICIAN: Thanh Glover M.D. REASON FOR CONSULTATION: Tachycardia. HISTORY OF PRESENT ILLNESS: This is a 41-year-old female, admitted to the hospital several days ago with osteomyelitis and wound infection as well as vomiting and nausea with secondary dehydration. She has bacteremia with a multi-drug resistant pathogen. She is on antibiotics and pain control. Consent has been raised over persistent sinus tachycardia prompting this consultation. PAST MEDICAL HISTORY: Osteoarthritis, paraplegia, chronic pain syndrome, chronic opioid addiction, cholelithiasis, and glucose intolerance. MEDICATIONS: Reviewed. ALLERGIES: Multiple and includes codeine, penicillin, vancomycin, cephalosporins, and iron, as well as Lasix. PHYSICAL EXAM: VITAL SIGNS: Blood pressure 88/53, pulse 143, respirations 20, and afebrile. T-max 102 degrees. NECK: Supple. LUNGS: Clear. CARDIAC: Regular rhythm. Rapid rate. Normal S1 and S2. No murmur. ABDOMEN: Soft. EXTREMITIES: Trace edema. Paraplegia noted. LABORATORY AND DIAGNOSTIC DATA: EKG, sinus tachycardia with no abnormalities. Echocardiogram reveals no right heart abnormalities or pulmonary hypertension. Hemoglobin is 10.2. Venous duplex negative for DVT. IMPRESSION: 1. Bacteremia, sepsis, and recurring fevers. 2. Immobility and increased risk for pulmonary embolic event. 3. Sinus tachycardia, hemodynamically appropriate. PLAN: 1. Additional hydration. 2. Antipyretics. 3. Continued antibiotics. 4. CT angiogram of the chest to evaluate for pulmonary embolus. 5. DVT prophylaxis. 6. Check thyroid function. Karthik Parra M.D. DR: FELICITA JOB#: [id number] CC:
[2016-05-12 08:11] VITALS: BP 101/54
[2016-05-12] MEDS: Heparin 5000 units/ml inj SUBQ SCH ×2 (08:21→23:59)
[2016-05-12] MEDS: Tigecycline 50 MG in D5W 110 ML IVPB SCH ×2 (08:26→23:55)
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
--- NOTE | 2016-05-12 09:31 | Diagnostic Imaging Report ---
Indications: Needs long-term IV access Technique: Ultrasound confirms patent compressible left brachial vein. Total sterile technique, including sterile probe cover and sterile gel, hat, mask,, sterile gown, large sterile drape, and preparation with 2% chlorhexidine utilized. Local anesthesia with 1% lidocaine. Under real-time ultrasound guidance, puncture brachial vein using 21-gauge needle, documented and archived, passage 0.018 guidewire under direct fluoroscopy, which was used to determine appropriate catheter length, exchange for 5 Nigerian peel-away sheath. 5 Nigerian Bard dual-lumen power PICC cut to 44 cm. It was inserted through the peel-away sheath. Peel-away sheath and guidewire removed. Catheter fixed to the skin. Both catheter ports aspirated and flushed. Patient tolerated procedure well, without immediate complication. Digital radiograph documents satisfactory catheter tip position, at the cavoatrial junction. Total fluoroscopy time 0.5 minutes. Total dose area product 11 dGycm2 Impression: Successful placement of left arm PICC under sonographic and fluoroscopic guidance, as described above.
[2016-05-12 12:14] VITALS: BP 95/55
--- NOTE | 2016-05-12 12:18 | General Progress Note ---
Assessment/Plan Assessment/Plan IMPRESSION: Osteomyelitis, recurrent wound infection with polymicrobial organisms, multiple allergies, history dehydration, history of nausea and vomiting, chronic pain syndrome, chronic opiate dependent, diabetes, anemia, prior history of transfusion. bacteremia MDR, tachycardia PLAN care noted venous US negative CTPA negative cards evaluation check thyroid panel antibiotics adjusted and patient tolerating well for total of 6 weeks PICC changed finalize care SNF discharge pending improvement in heart rate wound care and follow up after discharge pain control not stable for SNF with present heart rate impression, plan, and exam edited and reviewed in detail care discussed with RN Subjective Allergies: Coded Allergies: CEFTRIAXONE (Verified Allergy, Intermediate, SOB, HR-140bpm, face swollen , pt became red, 10/24/15) CODEINE (Verified Allergy, Intermediate, SWELLING, 01/03/11) LATEX (Verified Allergy, Intermediate, SWELLING, 01/03/11) PIPERACILLIN (Verified Allergy, Intermediate, Itching, 08/29/15) 08/29/15 tolerates Ceftaroline TAZOBACTAM (Verified Allergy, Intermediate, Itching, 01/29/15) POLYMYXIN B (Verified Allergy, Mild, Rash, 04/08/16) Suspected allergy reported by MD VANCOMYCIN (Verified Allergy, Mild, 07/15/14) ASPARAGINASE (Verified Allergy, Unknown, 01/28/14) CEFUROXIME (Unverified Allergy, Unknown, 04/19/16) IRON (Verified Allergy, Unknown, 01/28/14) Subjective dc held persistently tachycardic Not improved cards appreciated Objective Last 24 Hour Vital Signs Date Time Temp Pulse Resp B/P Pulse Ox O2 Delivery O2 Flow Rate FiO2 05/12/16 12:14 98.2 116 20 95/55 95 Room Air 05/12/16 08:50 99.0 05/12/16 08:11 99.0 121 20 101/54 96 Room Air 05/12/16 04:00 97.7 131 20 101/53 97 Nasal Cannula 2.0 05/12/16 04:00 126 05/12/16 00:00 140 05/12/16 00:00 98.4 140 20 106/55 97 Nasal Cannula 2.0 05/11/16 22:18 99.1 05/11/16 20:00 143 05/11/16 20:00 102.0 144 20 94/55 98 Room Air 05/11/16 16:00 98.1 143 20 88/53 93 Room Air 05/11/16 16:00 146 Intake and Output 05/11/16 05/12/16 19:00 07:00 Intake Total 580 ml 960 ml Balance 580 ml 960 ml Intake Oral 360 ml 240 ml IV Total 220 ml 720 ml # Voids 1 # Bowel Movements 1 Laboratory Tests 05/12/16 07:00: Thyroid Stimulating Hormone (TSH) [Pending], Free Thyroxine [Pending], Triiodothyronine (T3) Uptake [Pending] Height (Feet): 5 Height (Inches): 5.00 Weight (Pounds): 210 Objective GENERAL: A well-developed male, comfortable, chronically ill. HEENT: Negative. NECK: Supple. No adenopathy. Carotids 2+. LUNGS: Clear. No rhonchi or wheezes. CARDIAC: S1 and S2. tachycardia rhythm without murmurs, rubs, or gallops. ABDOMEN: Soft, obese, nontender. no drainage noted EXTREMITIES: Significant paraplegia. Minimal edema on the lower extremities. NEUROLOGIC: As noted above. SKIN: Noted. LUANN MICHEL May 12, 2016 12:18
[2016-05-12 13:53] LABS: THYROID STIMULATING HORMONE 0.661 uIU/mL (0.300-4.500)
[2016-05-12 16:00] VITALS: BP 99/59
--- NOTE | 2016-05-12 21:18 | Infectious Diseases Prog Note ---
Assessment/Plan Assessment/Plan ASSESSMENT AND PLAN: 1. e.coli/morganella and klebsiella sacral wound infection, high suspicion for osteo, ct abdomen and pelvis with possible lumbar spine osteo/discitis - - culture from bone biopsy, could not find path to r/o osteo when I discussed this with pathology MD on last visit - watch labs, sed rate - wound treatment per plastic surgery and protocol - consider spine surgery evaluation for further recs about possible lumbar spine osteo/discitis and further imaging, w/u etc. - meropenem for 24 days to treat as osteo osteo for total of 6 weeks (may need to adjust abx depending on below bc results) - patient will need ecf 2. 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 tachycardia - w/u per primary, ct angio negative for pe, tachycardia better 4. n/v improved 5. History of osteoarthritis and treatment. 6. Colostomy. 7. Paraplegia. 8. Anemia. 9. ? diabetes - patient denies dm hx, bs elevated only with infection per pt 10. Chronic pain management and chronic pain syndrome, anxiety 11. History of cholelithiasis. 12. Pain management for primary, opiate dependency 13. Multiple allergies to asparaginase, Rocephin, codeine, iron, Latex, piperacillin, tazobactam, and vancomycin. 14. wound care per protocol and plastic surgery 15. The case was discussed with RN 16. The case was discussed with the patient. 17. fh-nc, sh-negative, mar noted 18. notes and records reviewed 19. communicated with Dr. Healy 20. d/w patient and answered questions Subjective Constitutional: Denies: fever Respiratory: Denies: shortness of breath Cardiovascular: Denies: chest pain Gastrointestinal/Abdominal: Reports: other - + colostomy, Denies: nausea, vomiting Neurologic: Denies: headache Skin: Reports: rash - rash stable Hematologic: Denies: bleeding Musculoskeletal: Denies: pain Allergies: Coded Allergies: CEFTRIAXONE (Verified Allergy, Intermediate, SOB, HR-140bpm, face swollen , pt became red, 10/24/15) CODEINE (Verified Allergy, Intermediate, SWELLING, 01/03/11) LATEX (Verified Allergy, Intermediate, SWELLING, 01/03/11) PIPERACILLIN (Verified Allergy, Intermediate, Itching, 08/29/15) 08/29/15 tolerates Ceftaroline TAZOBACTAM (Verified Allergy, Intermediate, Itching, 01/29/15) POLYMYXIN B (Verified Allergy, Mild, Rash, 04/08/16) Suspected allergy reported by VANCOMYCIN (Verified Allergy, Mild, 07/15/14) ASPARAGINASE (Verified Allergy, Unknown, 01/28/14) CEFUROXIME (Unverified Allergy, Unknown, 04/19/16) IRON (Verified Allergy, Unknown, 01/28/14) Objective Vital Signs Last 24 Hour Vital Signs Date Time Temp Pulse Resp B/P Pulse Ox O2 Delivery O2 Flow Rate FiO2 05/12/16 16:00 98.2 107 18 99/59 100 Room Air 05/12/16 14:04 98.2 05/12/16 12:14 98.2 116 20 95/55 95 Room Air 05/12/16 08:11 99.0 121 20 101/54 96 Room Air 05/12/16 04:00 97.7 131 20 101/53 97 Nasal Cannula 2.0 05/12/16 04:00 126 05/12/16 00:00 140 05/12/16 00:00 98.4 140 20 106/55 97 Nasal Cannula 2.0 05/11/16 22:18 99.1 Height (Feet): 5 Height (Inches): 5.00 Weight (Pounds): 210 General Appearance: no acute distress HEENT: normocephalic, atraumatic, anicteric, mucous membranes moist, PERRL, EOMI, pharynx normal, supple, no JVD Respiratory/Chest: lungs clear, normal breath sounds, no respiratory distress, no accessory muscle use Cardiovascular: normal rate, regular rhythm, no gallop/murmur, no JVD Abdomen: normal bowel sounds, soft, non tender, no organomegaly, non distended Genitourinary: other - no bay Extremities: no cyanosis Skin: rash - rash stable, other - wounds covered 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 Complete 05/05/16 12:30 Rectum VRE Culture - Final NO VANCOMYCIN RESISTANT ENTEROCOCCUS ... Complete Laboratory Tests Test 05/12/16 07:00 Thyroid Stimulating Hormone (TSH) 0.661 uIU/mL (0.300-4.500) Free Thyroxine 1.23 ng/dL (0.86-1.85) Triiodothyronine (T3) Uptake Pending Current Medications Medications (Trade) Dose Ordered Sig/Pineda Route PRN Reason Start Time Stop Time Status Last Admin Dose Admin Acetaminophen (Tylenol) 650 mg Q4H PRN ORAL Mild Pain (Pain Scale 1-3) 05/05/16 17:00 06/04/16 16:59 05/11/16 21:19 Acetaminophen (Tylenol) 650 mg Q4H PRN ORAL fever 05/05/16 17:00 06/04/16 16:59 Al Hydroxide/Mg Hydroxide (Mylanta II) 30 ml Q4H PRN ORAL dyspepsia 05/05/16 17:00 06/04/16 16:59 Dextrose (Dextrose 50%) STAT PRN IV Hypoglycemia 05/05/16 17:00 06/04/16 16:59 Diphenhydramine HCl 25 mg 25 mg Q3H PRN IVP Itching 05/05/16 17:00 06/04/16 16:59 05/12/16 19:36 Heparin Sodium (Porcine) (Heparin 5000 units/ml) 5,000 units EVERY 12 HOURS SUBQ 05/05/16 21:00 06/04/16 20:59 05/11/16 21:22 Hydromorphone HCl (Dilaudid) 2 mg Q3H PRN IVP For Pain 05/12/16 19:00 05/19/16 18:59 05/12/16 19:39 Magnesium Hydroxide (Mom) 30 ml HSPRN PRN ORAL Constipation 05/05/16 17:00 06/04/16 16:59 Meropenem 1 gm/ Sodium Chloride 55 ml @ 110 mls/hr Q8HR IVPB 05/11/16 14:00 05/16/16 13:59 05/12/16 13:32 Ondansetron HCl (Zofran) 4 mg Q6H PRN IVP Nausea & Vomiting 05/05/16 17:00 06/04/16 16:59 05/11/16 13:57 Oxycodone HCl (OxyCONTIN) 20 mg Q12HR ORAL 05/13/16 09:00 05/20/16 08:59 Pantoprazole (Protonix) 40 mg DAILY ORAL 05/06/16 09:00 06/05/16 08:59 05/12/16 08:14 Tigecycline/ Dextrose (Tygacil/D5W) 110 ml @ 220 mls/hr EVERY 12 HOURS IVPB 05/11/16 21:00 05/18/16 20:59 05/12/16 08:26 Zolpidem Tartrate (Ambien) 5 mg HSPRN PRN ORAL Insomnia 05/05/16 17:00 06/04/16 16:59 GRZEGORZ MARTINEZ May 12, 2016 21:18
[2016-05-13] VITALS (7 sets, daily range): BP systolic 94–125; BP diastolic 49–95
[2016-05-13] MEDS: Meropenem 1 GM in NS 55 ML IVPB SCH ×4 (02:17→22:42)
--- NOTE | 2016-05-13 03:47 | Progress Note ---
DATE: 05/12/2016 CARDIOLOGY PROGRESS NOTE SUBJECTIVE: The patient has no new complaints. Her CT angiogram of the chest was negative for pulmonary embolus. She continues to have sinus tachycardia. She continues to have diffuse pain and takes around the clock pain medications. OBJECTIVE: VITAL SIGNS: Blood pressure 95/55, pulse 116, respirations 20, and afebrile. NECK: Supple. LUNGS: Clear. CARDIAC: Regular. Rapid rate. Normal S1 and S2. ABDOMEN: Soft. EXTREMITIES: Trace edema. LABORATORY DATA: TSH is 0.66. IMPRESSION: Secondary sinus tachycardia, partially due to hypovolemia and dehydration, partially due to pain and anemia, possibly due to psychiatric components nevertheless. 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 RECOMMENDATIONS: Recommend beta-bob therapy with titration based on clinical parameters. Karthik Parra M.D. DR: FELICITA JOB#: [id number] CC:
[2016-05-13] MEDS: DiphenhydrAMINE 50mg/ml Inj IVP PRN ×4 (05:45→22:38)
--- NOTE | 2016-05-13 08:10 | General Progress Note ---
Assessment/Plan Assessment/Plan IMPRESSION: Osteomyelitis, recurrent wound infection with polymicrobial organisms, multiple allergies, history dehydration, history of nausea and vomiting, chronic pain syndrome, chronic opiate dependent, diabetes, anemia, prior history of transfusion. bacteremia MDR, tachycardia PLAN care noted venous US negative CTPA negative cards evaluation noted and beta bob started negative thyroid panel 24 more days of meropenem PICC changed finalize care SNF discharge pending improvement in heart rate wound care and follow up after discharge pain control will d/w cards impression, plan, and exam edited and reviewed in detail care discussed with RN Subjective Allergies: Coded Allergies: CEFTRIAXONE (Verified Allergy, Intermediate, SOB, HR-140bpm, face swollen , pt became red, 10/24/15) CODEINE (Verified Allergy, Intermediate, SWELLING, 01/03/11) LATEX (Verified Allergy, Intermediate, SWELLING, 01/03/11) PIPERACILLIN (Verified Allergy, Intermediate, Itching, 08/29/15) 08/29/15 tolerates Ceftaroline TAZOBACTAM (Verified Allergy, Intermediate, Itching, 01/29/15) POLYMYXIN B (Verified Allergy, Mild, Rash, 04/08/16) Suspected allergy reported by MD VANCOMYCIN (Verified Allergy, Mild, 07/15/14) ASPARAGINASE (Verified Allergy, Unknown, 01/28/14) CEFUROXIME (Unverified Allergy, Unknown, 04/19/16) IRON (Verified Allergy, Unknown, 01/28/14) Subjective dc held still tachycardic Not improved cards appreciated started on beta bob Objective Last 24 Hour Vital Signs Date Time Temp Pulse Resp B/P Pulse Ox O2 Delivery O2 Flow Rate FiO2 05/13/16 04:30 97.1 86 20 125/61 94 05/13/16 04:00 135 05/13/16 00:24 98.0 05/13/16 00:00 134 05/13/16 00:00 98.0 100 20 110/66 98 Room Air 05/12/16 16:00 98.2 107 18 99/59 100 Room Air 05/12/16 14:04 98.2 05/12/16 12:14 98.2 116 20 95/55 95 Room Air 05/12/16 08:11 99.0 121 20 101/54 96 Room Air Intake and Output 05/12/16 05/13/16 19:00 07:00 Intake Total 240 ml Balance 240 ml Intake Oral 240 ml Labs Test 05/11/16 06:20 05/12/16 07:00 White Blood Count 9.0 K/UL (4.8-10.8) Red Blood Count 3.71 M/UL (4.20-5.40) Hemoglobin 10.2 G/DL (12.0-16.0) Hematocrit 30.6 % (37.0-47.0) Mean Corpuscular Volume 83 FL (80-99) Mean Corpuscular Hemoglobin 27.6 PG (27.0-31.0) Mean Corpuscular Hemoglobin Concent 33.5 G/DL (32.0-36.0) Red Cell Distribution Width 16.9 % (11.6-14.8) Platelet Count 313 K/UL (150-450) Mean Platelet Volume 7.7 FL (6.5-10.1) Neutrophils (%) (Auto) 78.0 % (45.0-75.0) Lymphocytes (%) (Auto) 16.4 % (20.0-45.0) Monocytes (%) (Auto) 4.3 % (1.0-10.0) Eosinophils (%) (Auto) 0.9 % (0.0-3.0) Basophils (%) (Auto) 0.4 % (0.0-2.0) Sodium Level 138 mEQ/L (135-145) Potassium Level 4.6 mEQ/L (3.4-4.9) Chloride Level 100 mEQ/L (98-107) Carbon Dioxide Level 28 mEQ/L (20-30) Anion Gap 10 (5-15) Blood Urea Nitrogen 16 mg/dL (7-23) Creatinine 0.5 mg/dL (0.5-0.9) Estimat Glomerular Filtration Rate > 60 mL/min (>60) Glucose Level 87 mg/dL (74-106) Calcium Level 7.6 mg/dL (8.6-10.2) Thyroid Stimulating Hormone (TSH) 0.661 uIU/mL (0.300-4.500) Free Thyroxine 1.23 ng/dL (0.86-1.85) Height (Feet): 5 Height (Inches): 5.00 Weight (Pounds): 210 Objective GENERAL: A well-developed male, comfortable, chronically ill. HEENT: Negative. NECK: Supple. No adenopathy. Carotids 2+. LUNGS: Clear. No rhonchi or wheezes. CARDIAC: S1 and S2. tachycardia rhythm without murmurs, rubs, or gallops. ABDOMEN: Soft, obese, nontender. no drainage noted EXTREMITIES: Significant paraplegia. Minimal edema on the lower extremities. NEUROLOGIC: As noted above. SKIN: Noted. LUANN MICHEL May 13, 2016 08:10
[2016-05-13] MEDS: Tigecycline 50 MG in D5W 110 ML IVPB SCH ×2 (08:32→22:23)
[2016-05-13] MEDS: oxyCONTIN 20mg tab ORAL SCH ×2 (08:33→22:23)
[2016-05-13] MEDS: Heparin 5000 units/ml inj SUBQ SCH ×2 (08:49→21:00)
--- NOTE | 2016-05-13 09:47 | Consultation ---
History of Present Illness General Date patient seen: May 13, 2016 Chief Complaint: Nausea, Vomiting, and Diarrhea Present Illness Allergies: Coded Allergies: CEFTRIAXONE (Verified Allergy, Intermediate, SOB, HR-140bpm, face swollen , pt became red, 10/24/15) CODEINE (Verified Allergy, Intermediate, SWELLING, 01/03/11) LATEX (Verified Allergy, Intermediate, SWELLING, 01/03/11) PIPERACILLIN (Verified Allergy, Intermediate, Itching, 08/29/15) 08/29/15 tolerates Ceftaroline TAZOBACTAM (Verified Allergy, Intermediate, Itching, 01/29/15) POLYMYXIN B (Verified Allergy, Mild, Rash, 04/08/16) Suspected allergy reported by MD VANCOMYCIN (Verified Allergy, Mild, 07/15/14) ASPARAGINASE (Verified Allergy, Unknown, 01/28/14) CEFUROXIME (Unverified Allergy, Unknown, 04/19/16) IRON (Verified Allergy, Unknown, 01/28/14) Medication History Scheduled Amikacin Sulfate (Amikin), 850 MG IVPB DAILY, (Reported) Heparin Sodium,Porcine/Ns/Pf (Heparin), 5,000 UNIT SQ EVERY 12 HOURS, (Reported) Meropenem (Meropenem), 1 GM IV EVERY 8 HOURS, (Reported) Meropenem (Merrem), 1 GM IVPB Q8HR, (Reported) Pantoprazole* (Protonix*), 40 MG ORAL DAILY, (Reported) Scheduled PRN Acetaminophen (Acetaminophen), 650 MG ORAL Q4HR PRN for Fever/Headache/Mild Pain , (Reported) Al Hydroxide/mg Hydroxide (Mag-Al Plus Suspension), 30 ML ORAL Q4HR PRN for dyspepsia, (Reported) Diphenhydramine Hcl* (Diphenhydramine Hcl*), 25 MG IVP Q3HR PRN for Itching, ( Reported) Hydromorphone HCl (Dilaudid), 2 MG IVP Q3HR PRN for Severe Pain (Pain Scale 7-10 ), (Reported) Magnesium Hydroxide* (Milk Of Magnesia*), 30 ML ORAL HS PRN for Constipation, ( Reported) Ondansetron* (Zofran*), 4 MG IV Q6HR PRN for Nausea & Vomiting, (Reported) Zolpidem Tartrate* (Ambien*), 5 MG ORAL BEDTIME PRN for insomnia, (Reported) Miscellaneous Medications Unable to Obtain Medications (Unable To Obtain Meds), (Reported) Patient History Healthcare decision maker pt oriented Resuscitation status Advanced Directive on File Physical Exam Last 24 Hour Vital Signs Date Time Temp Pulse Resp B/P Pulse Ox O2 Delivery O2 Flow Rate FiO2 05/13/16 08:37 100.0 134 20 94/52 96 Room Air 05/13/16 06:15 98.0 05/13/16 04:30 97.1 86 20 125/61 94 05/13/16 04:00 135 05/13/16 00:00 134 05/13/16 00:00 98.0 100 20 110/66 98 Room Air 05/12/16 16:00 98.2 107 18 99/59 100 Room Air 05/12/16 14:04 98.2 05/12/16 12:14 98.2 116 20 95/55 95 Room Air Intake and Output 05/12/16 05/13/16 19:00 07:00 Intake Total 240 ml Balance 240 ml Intake Oral 240 ml Height (Feet): 5 Height (Inches): 5.00 Weight (Pounds): 210 Medications Current Medications Medications (Trade) Dose Ordered Sig/Pineda Route PRN Reason Start Time Stop Time Status Last Admin Dose Admin Acetaminophen (Tylenol) 650 mg Q4H PRN ORAL Mild Pain (Pain Scale 1-3) 05/05/16 17:00 06/04/16 16:59 05/13/16 08:48 Acetaminophen (Tylenol) 650 mg Q4H PRN ORAL fever 05/05/16 17:00 06/04/16 16:59 Al Hydroxide/Mg Hydroxide (Mylanta II) 30 ml Q4H PRN ORAL dyspepsia 05/05/16 17:00 06/04/16 16:59 Dextrose (Dextrose 50%) STAT PRN IV Hypoglycemia 05/05/16 17:00 06/04/16 16:59 Diphenhydramine HCl 25 mg 25 mg Q3H PRN IVP Itching 05/05/16 17:00 06/04/16 16:59 05/13/16 05:45 Heparin Sodium (Porcine) (Heparin 5000 units/ml) 5,000 units EVERY 12 HOURS SUBQ 05/05/16 21:00 06/04/16 20:59 05/12/16 23:59 Hydromorphone HCl (Dilaudid) 2 mg Q3H PRN IVP For Pain 05/12/16 19:00 05/19/16 18:59 05/13/16 05:45 Magnesium Hydroxide (Mom) 30 ml HSPRN PRN ORAL Constipation 05/05/16 17:00 06/04/16 16:59 Meropenem 1 gm/ Sodium Chloride 55 ml @ 110 mls/hr Q8HR IVPB 05/11/16 14:00 05/16/16 13:59 05/13/16 05:46 Metoprolol Succinate (Toprol XL) 25 mg DAILY ORAL 05/13/16 09:00 06/12/16 08:59 Ondansetron HCl (Zofran) 4 mg Q6H PRN IVP Nausea & Vomiting 05/05/16 17:00 06/04/16 16:59 05/11/16 13:57 Oxycodone HCl (OxyCONTIN) 20 mg Q12HR ORAL 05/13/16 09:00 05/20/16 08:59 05/13/16 08:33 Pantoprazole (Protonix) 40 mg DAILY ORAL 05/06/16 09:00 06/05/16 08:59 05/13/16 08:33 Tigecycline/ Dextrose (Tygacil/D5W) 110 ml @ 220 mls/hr EVERY 12 HOURS IVPB 05/11/16 21:00 05/18/16 20:59 05/13/16 08:32 Zolpidem Tartrate (Ambien) 5 mg HSPRN PRN ORAL Insomnia 05/05/16 17:00 06/04/16 16:59 Assessment/Plan Assessment/Plan (1) Paraplegia (2) Spinal cord injury (3) Lumbar spine osteomyelitis discitis (4) Sacral decubitus ulcer (5) Intractable pain seen dictated SETH RODRIGUES May 13, 2016 09:47
--- NOTE | 2016-05-13 15:45 | Cardiology Report ---
APPROVED REPORT EKG Measurement Heart [id number] Sinus tachycardia with premature ventricular complexes or fusion complexes Otherwise normal ECG
[2016-05-14 00:32] VITALS: BP 124/66
[2016-05-14 04:00] VITALS: BP 102/56
[2016-05-14 04:22] LABS: MEAN CORPUSCULAR HEMOGLOBIN 27.6 PG (27.0-31.0); MEAN CORPUSCULAR HGB CONC 33.1 G/DL (32.0-36.0); MEAN CORPUSCULAR VOLUME 83 FL (80-99); MEAN PLATELET VOLUME 7.6 FL (6.5-10.1); PLATELET COUNT 309 K/UL (150-450); RED BLOOD COUNT 2.87 M/UL (4.20-5.40); RED CELL DISTRIBUTION WIDTH 17.9 % (11.6-14.8)
[2016-05-14 04:48] LABS: ALANINE AMINOTRANSFERASE 5 U/L (3-33); ALBUMIN/GLOBULIN RATIO 0.3 (1.0-2.7); ANION GAP 10 (5-15); ASPARTATE AMINO TRANSFERASE 13 U/L (5-40); CALCIUM 7.5 mg/dL (8.6-10.2); CARBON DIOXIDE 24 mEQ/L (20-30); CHLORIDE 98 mEQ/L (98-107); CREATININE 0.6 mg/dL (0.5-0.9); GLOMERULAR FILTRATION RATE > 60 mL/min (>60); HEMOLYSIS 0; POTASSIUM 5.2 mEQ/L (3.4-4.9); SODIUM 132 mEQ/L (135-145); TOTAL PROTEIN 5.5 g/dL (6.6-8.7)
[2016-05-14] MEDS: Meropenem 1 GM in NS 55 ML IVPB SCH ×3 (06:13→22:30)
[2016-05-14 08:46] VITALS: BP 97/58
[2016-05-14] MEDS: Tigecycline 50 MG in D5W 110 ML IVPB SCH ×2 (08:56→21:18)
[2016-05-14] MEDS: oxyCONTIN 20mg tab ORAL SCH ×2 (08:56→21:00)
[2016-05-14] MEDS: Heparin 5000 units/ml inj SUBQ SCH ×2 (08:57→21:20)
[2016-05-14] MEDS: DiphenhydrAMINE 50mg/ml Inj IVP PRN ×4 (09:09→22:30)
--- NOTE | 2016-05-14 09:22 | General Progress Note ---
Assessment/Plan Problem List: (1) Tachycardia ICD Codes: R00.0 - Tachycardia, unspecified SNOMED: 9310236 (2) Anemia ICD Codes: D64.9 - Anemia, unspecified SNOMED: 087285203 Qualifiers: Qualified Codes: D50.0 - Iron deficiency anemia secondary to blood loss ( chronic) (3) Opiate dependence ICD Codes: F11.20 - Opioid dependence, uncomplicated SNOMED: 89521669 (4) Dehydration ICD Codes: E86.0 - Dehydration SNOMED: 80261752 (5) Intractable pain ICD Codes: R52 - Pain, unspecified; R19.7 - Diarrhea, unspecified SNOMED: 66609611 Status: stable Assessment/Plan transfuse 1 unit prbcs check stool ob and iron panel suspect anemia due to chronic disease and blood loss from wounds rate control pain control dc planning when hr better controlled Subjective ROS Limited/Unobtainable: No Constitutional: Reports: malaise, weakness HEENT: Reports: no symptoms Cardiovascular: Reports: no symptoms Respiratory: Reports: no symptoms Gastrointestinal/Abdominal: Reports: no symptoms Genitourinary: Reports: no symptoms 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: Reports: pre-existing deficit Endocrine: Reports: no symptoms Hematologic/Lymphatic: Reports: no symptoms Allergies: Coded Allergies: CEFTRIAXONE (Verified Allergy, Intermediate, SOB, HR-140bpm, face swollen , pt became red, 10/24/15) CODEINE (Verified Allergy, Intermediate, SWELLING, 01/03/11) LATEX (Verified Allergy, Intermediate, SWELLING, 01/03/11) PIPERACILLIN (Verified Allergy, Intermediate, Itching, 08/29/15) 08/29/15 tolerates Ceftaroline TAZOBACTAM (Verified Allergy, Intermediate, Itching, 01/29/15) POLYMYXIN B (Verified Allergy, Mild, Rash, 04/08/16) Suspected allergy reported by VANCOMYCIN (Verified Allergy, Mild, 07/15/14) ASPARAGINASE (Verified Allergy, Unknown, 01/28/14) CEFUROXIME (Unverified Allergy, Unknown, 04/19/16) IRON (Verified Allergy, Unknown, 01/28/14) All Systems: reviewed and negative except above Subjective weak. 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 mostly sinus tach low 100s. pt denies cp/sob. decrease h/h noted. no bleeding, melena or brbpr. Objective Last 24 Hour Vital Signs Date Time Temp Pulse Resp B/P Pulse Ox O2 Delivery O2 Flow Rate FiO2 05/14/16 08:56 100 97/58 05/14/16 08:46 97.0 100 20 97/58 96 Room Air 05/14/16 04:00 98 05/14/16 04:00 97.0 105 20 102/56 94 Room Air 05/14/16 00:32 98.0 99 20 124/66 96 Room Air 05/14/16 00:00 104 05/13/16 20:00 122 05/13/16 20:00 98.2 114 18 105/55 96 Room Air 05/13/16 16:00 98.2 117 20 102/95 95 Room Air 05/13/16 16:00 115 05/13/16 12:03 98.2 130 20 96/53 95 Room Air 05/13/16 10:42 122 103/49 05/13/16 10:41 122 103/49 05/13/16 10:35 98.2 05/13/16 09:47 98.2 Intake and Output 05/13/16 05/14/16 19:00 07:00 Intake Total 810 ml 1210 ml Balance 810 ml 1210 ml Intake Oral 480 ml IV Total 330 ml 1210 ml Laboratory Tests 05/14/16 04:10: White Blood Count 10.0, Red Blood Count 2.87L, Hemoglobin 7.9L, Hematocrit 23.9L , Mean Corpuscular Volume 83, Mean Corpuscular Hemoglobin 27.6, Mean Corpuscular Hemoglobin Concent 33.1, Red Cell Distribution Width 17.9H, Platelet Count 309, Mean Platelet Volume 7.6, Neutrophils (%) (Auto) , Lymphocytes (%) (Auto) , Monocytes (%) (Auto) , Eosinophils (%) (Auto) , Basophils (%) (Auto) , Neutrophils % (Manual) [Pending], Lymphocytes % (Manual) [Pending], Platelet Estimate [Pending], Platelet Morphology [Pending], Sodium Level 132L, Potassium Level 5.2H, Chloride Level 98, Carbon Dioxide Level 24, Anion Gap 10, Blood Urea Nitrogen 16, Creatinine 0.6, Estimat Glomerular Filtration Rate > 60, Glucose Level 77, Calcium Level 7.5L, Total Bilirubin 0.3 , Aspartate Amino Transf (AST/SGOT) 13, Alanine Aminotransferase (ALT/SGPT) 5, Alkaline Phosphatase 173H, Total Protein 5.5L, Albumin 1.5L, Globulin 4.0, Albumin/Globulin Ratio 0.3L Height (Feet): 5 Height (Inches): 5.00 Weight (Pounds): 210 General Appearance: WD/WN, alert Neck: supple Cardiovascular: normal rate, tachycardia - low 100s Respiratory/Chest: lungs clear Abdomen: normal bowel sounds, non tender, soft, no organomegaly Edema: no edema noted Arm (L), no edema noted Arm (R), no edema noted Leg (L), no edema noted Leg (R), no edema noted Pedal (L), no edema noted Pedal (R), no edema noted Generalized Neurologic: no motor/sensory deficits BONG BRUNNER May 14, 2016 09:22
[2016-05-14 09:36] LABS: ANISOCYTOSIS 1+; BAND NEUTROPHILS % (MANUAL) 0 % (0-8); BASOPHILS % (MANUAL) 0 % (0-2); EOSINOPHILS % (MANUAL) 0 % (0-3); HYPOCHROMASIA 1+; LYMPHOCYTES % (MANUAL) 27 % (20-45); NEUTROPHILS % (MANUAL) 63 % (45-75); PLATELET ESTIMATE ADEQUATE; PLATELET MORPHOLOGY NORMAL; TOTAL CELLS COUNTED 100
--- NOTE | 2016-05-14 10:10 | General Progress Note ---
Assessment/Plan Assessment/Plan (1) Paraplegia (2) Spinal cord injury (3) Lumbar spine osteomyelitis discitis (4) Sacral decubitus ulcer (5) Intractable pain Pt will be continued on OxyContin and Dilaudid. Pt was d/w Dr. Avina and he concurred. Subjective Date patient seen: May 14, 2016 Time patient seen: 09:00 - am Constitutional: Reports: weakness, Denies: chills, diaphoresis, fever, malaise HEENT: Denies: blurred vision, double vision, ear discharge, ear pain, eye pain , mouth pain, mouth swelling, nose congestion, nose pain, tearing, throat pain, throat swelling Cardiovascular: Denies: chest pain, edema, irregular heart rate, lightheadedness, palpitations, syncope Respiratory: Denies: SOB at rest, SOB with excertion, cough, orthopnea, shortness of breath, sputum, stridor, wheezing Gastrointestinal/Abdominal: Reports: poor appetite, Denies: abdomen distended, abdominal pain, black stools, blood in stool, constipated, diarrhea, difficulty swallowing, nausea, poor fluid intake, rectal bleeding, tarry stools, vomiting Genitourinary: Denies: burning, discharge, flank pain, frequency, hematuria, incontinence, pain, urgency 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: Reports: depressed, paresthesia, weakness, Denies: anxiety, emotional problems, headache, numbness, pre-existing deficit, seizure, tingling, tremors Endocrine: Denies: excessive sweating, flushing, increased hunger, increased thirst, increased urine, intolerance to cold, intolerance to heat, unexplained weight gain, unexplained weight loss Hematologic/Lymphatic: Reports: anemia, Denies: easy bleeding, easy bruising Allergies: Coded Allergies: CEFTRIAXONE (Verified Allergy, Intermediate, SOB, HR-140bpm, face swollen , pt became red, 10/24/15) CODEINE (Verified Allergy, Intermediate, SWELLING, 01/03/11) LATEX (Verified Allergy, Intermediate, SWELLING, 01/03/11) PIPERACILLIN (Verified Allergy, Intermediate, Itching, 08/29/15) 08/29/15 tolerates Ceftaroline TAZOBACTAM (Verified Allergy, Intermediate, Itching, 01/29/15) POLYMYXIN B (Verified Allergy, Mild, Rash, 04/08/16) Suspected allergy reported by VANCOMYCIN (Verified Allergy, Mild, 07/15/14) ASPARAGINASE (Verified Allergy, Unknown, 01/28/14) CEFUROXIME (Unverified Allergy, Unknown, 04/19/16) IRON (Verified Allergy, Unknown, 01/28/14) Subjective Pt is in bed pain has been stable on the medications. BP low d/w nurse about parameters. Pt will be getting a blood transfusion. Objective Last 24 Hour Vital Signs Date Time Temp Pulse Resp B/P Pulse Ox O2 Delivery O2 Flow Rate FiO2 05/14/16 08:56 100 97/58 05/14/16 08:46 97.0 100 20 97/58 96 Room Air 05/14/16 04:00 98 05/14/16 04:00 97.0 105 20 102/56 94 Room Air 05/14/16 00:32 98.0 99 20 124/66 96 Room Air 05/14/16 00:00 104 05/13/16 20:00 122 05/13/16 20:00 98.2 114 18 105/55 96 Room Air 05/13/16 16:00 98.2 117 20 102/95 95 Room Air 05/13/16 16:00 115 05/13/16 12:03 98.2 130 20 96/53 95 Room Air 05/13/16 10:42 122 103/49 05/13/16 10:41 122 103/49 05/13/16 10:35 98.2 Intake and Output 05/13/16 05/14/16 19:00 07:00 Intake Total 810 ml 1210 ml Balance 810 ml 1210 ml Intake Oral 480 ml IV Total 330 ml 1210 ml Laboratory Tests 05/14/16 04:10: White Blood Count 10.0, Red Blood Count 2.87L, Hemoglobin 7.9L, Hematocrit 23.9L , Mean Corpuscular Volume 83, Mean Corpuscular Hemoglobin 27.6, Mean Corpuscular Hemoglobin Concent 33.1, Red Cell Distribution Width 17.9H, Platelet Count 309, Mean Platelet Volume 7.6, Neutrophils (%) (Auto) , Lymphocytes (%) (Auto) , Monocytes (%) (Auto) , Eosinophils (%) (Auto) , Basophils (%) (Auto) , Differential Total Cells Counted 100, Neutrophils % ( Manual) 63, Lymphocytes % (Manual) 27, Monocytes % (Manual) 10, Eosinophils % ( Manual) 0, Basophils % (Manual) 0, Band Neutrophils 0, Platelet Estimate Adequate, Platelet Morphology Normal, Hypochromasia 1+, Anisocytosis 1+, Sodium Level 132L, Potassium Level 5.2H, Chloride Level 98, Carbon Dioxide Level 24, Anion Gap 10, Blood Urea Nitrogen 16, Creatinine 0.6, Estimat Glomerular Filtration Rate > 60, Glucose Level 77, Calcium Level 7.5L, Total Bilirubin 0.3 , Aspartate Amino Transf (AST/SGOT) 13, Alanine Aminotransferase (ALT/SGPT) 5, Alkaline Phosphatase 173H, Total Protein 5.5L, Albumin 1.5L, Globulin 4.0, Albumin/Globulin Ratio 0.3L Height (Feet): 5 Height (Inches): 5.00 Weight (Pounds): 210 General Appearance: no apparent distress, alert EENT: PERRL/EOMI, normal ENT inspection Neck: non-tender, normal alignment Cardiovascular: normal rate, regular rhythm Respiratory/Chest: chest wall non-tender, decreased breath sounds Abdomen: non tender, soft Extremities: swelling Edema: mild edema Neurologic: alert, oriented x 3 SETH RODRIGUES May 14, 2016 10:10
--- NOTE | 2016-05-14 12:37 | Infectious Diseases Prog Note ---
Assessment/Plan Assessment/Plan ASSESSMENT AND PLAN: 1. e.coli/morganella and klebsiella sacral wound infection, high suspicion for osteo, ct abdomen and pelvis with possible lumbar spine osteo/discitis - - culture from bone biopsy, could not find path to r/o osteo when I discussed this with pathology MD on last visit - watch labs, sed rate - wound treatment per plastic surgery and protocol - consider spine surgery evaluation for further recs about possible lumbar spine osteo/discitis and further imaging, w/u etc. - meropenem for 22 days to treat as osteo osteo for total of 6 weeks (may need to adjust abx depending on below bc results) - patient will need ecf 2. acinetobaccter/vice president medical affairs - likely line infection - tygacil for multi drug resistant acinetobacter and vice president medical affairs - day # 6 - surveillance bc negative - recent CT scan abdomen and pelvis without abscess - surveillance blood cultures negative - echo - no vegetations - s/p line/picc 3. tachycardia - w/u per primary, ct angio negative for pe, tachycardia better 4. n/v improved, some cough, ct negative for pna 5. History of osteoarthritis and treatment. 6. Colostomy. 7. Paraplegia. 8. Anemia. 9. ? diabetes - patient denies dm hx, bs elevated only with infection per pt 10. Chronic pain management and chronic pain syndrome, anxiety 11. History of cholelithiasis. 12. Pain management for primary, opiate dependency 13. Multiple allergies to asparaginase, Rocephin, codeine, iron, Latex, piperacillin, tazobactam, and vancomycin. 14. wound care per protocol and plastic surgery 15. The case was discussed with RN 16. The case was discussed with the patient. 17. fh-nc, sh-negative, mar noted 18. notes and records reviewed 19. communicated with Dr. Healy 20. d/w patient and answered questions Subjective Respiratory: Denies: shortness of breath Cardiovascular: Denies: chest pain Gastrointestinal/Abdominal: Denies: bloating Neurologic: Reports: weakness, Denies: headache Psychiatric: Denies: depression Skin: Denies: rash Hematologic: Denies: bleeding Musculoskeletal: Denies: pain Allergies: Coded Allergies: CEFTRIAXONE (Verified Allergy, Intermediate, SOB, HR-140bpm, face swollen , pt became red, 10/24/15) CODEINE (Verified Allergy, Intermediate, SWELLING, 01/03/11) LATEX (Verified Allergy, Intermediate, SWELLING, 01/03/11) PIPERACILLIN (Verified Allergy, Intermediate, Itching, 08/29/15) 08/29/15 tolerates Ceftaroline TAZOBACTAM (Verified Allergy, Intermediate, Itching, 01/29/15) POLYMYXIN B (Verified Allergy, Mild, Rash, 04/08/16) Suspected allergy reported by VANCOMYCIN (Verified Allergy, Mild, 07/15/14) ASPARAGINASE (Verified Allergy, Unknown, 01/28/14) CEFUROXIME (Unverified Allergy, Unknown, 04/19/16) IRON (Verified Allergy, Unknown, 01/28/14) Objective Vital Signs Last 24 Hour Vital Signs Date Time Temp Pulse Resp B/P Pulse Ox O2 Delivery O2 Flow Rate FiO2 05/14/16 08:56 100 97/58 05/14/16 08:46 97.0 100 20 97/58 96 Room Air 05/14/16 08:00 98 05/14/16 04:00 98 05/14/16 04:00 97.0 105 20 102/56 94 Room Air 05/14/16 00:32 98.0 99 20 124/66 96 Room Air 05/14/16 00:00 104 05/13/16 20:00 122 05/13/16 20:00 98.2 114 18 105/55 96 Room Air 05/13/16 16:00 98.2 117 20 102/95 95 Room Air 05/13/16 16:00 115 Height (Feet): 5 Height (Inches): 5.00 Weight (Pounds): 210 General Appearance: no acute distress HEENT: normocephalic, atraumatic, anicteric, mucous membranes moist Respiratory/Chest: chest wall non-tender, lungs clear, normal breath sounds, no respiratory distress Cardiovascular: normal rate, regular rhythm, no gallop/murmur, no JVD Abdomen: normal bowel sounds, soft, non tender, no organomegaly, non distended Genitourinary: other - no bay Extremities: no cyanosis Skin: no rash 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: dry clipper tender II-XII grossly normal, alert, oriented x 3, responsive, motor weakness Lymphatic: no neck adenopathy Musculoskeletal: no effusion Objective chest x-ray - nad (reviewed) ct - negative for pna or pe (report noted) Microbiology Date/Time Source Procedure Growth Status 05/11/16 08:00 Blood Blood Culture - Preliminary NO GROWTH AFTER 48 HOURS Resulted 05/05/16 12:30 Nasal Nares MRSA Culture - Final NO METHICILLIN RESISTANT STAPH AUREUS... Complete 05/05/16 12:30 Rectum VRE Culture - Final NO VANCOMYCIN RESISTANT ENTEROCOCCUS ... Complete Laboratory Tests Test 05/14/16 04:10 White Blood Count 10.0 K/UL (4.8-10.8) Red Blood Count 2.87 M/UL (4.20-5.40) L Hemoglobin 7.9 G/DL (12.0-16.0) L Hematocrit 23.9 % (37.0-47.0) L Mean Corpuscular Volume 83 FL (80-99) Mean Corpuscular Hemoglobin 27.6 PG (27.0-31.0) Mean Corpuscular Hemoglobin Concent 33.1 G/DL (32.0-36.0) Red Cell Distribution Width 17.9 % (11.6-14.8) H Platelet Count 309 K/UL (150-450) Mean Platelet Volume 7.6 FL (6.5-10.1) Neutrophils (%) (Auto) % (45.0-75.0) Lymphocytes (%) (Auto) % (20.0-45.0) Monocytes (%) (Auto) % (1.0-10.0) Eosinophils (%) (Auto) % (0.0-3.0) Basophils (%) (Auto) % (0.0-2.0) Differential Total Cells Counted 100 Neutrophils % (Manual) 63 % (45-75) Lymphocytes % (Manual) 27 % (20-45) Monocytes % (Manual) 10 % (1-10) Eosinophils % (Manual) 0 % (0-3) Basophils % (Manual) 0 % (0-2) Band Neutrophils 0 % (0-8) Platelet Estimate Adequate Platelet Morphology Normal Hypochromasia 1+ Anisocytosis 1+ Sodium Level 132 mEQ/L (135-145) L Potassium Level 5.2 mEQ/L (3.4-4.9) H Chloride Level 98 mEQ/L (98-107) Carbon Dioxide Level 24 mEQ/L (20-30) Anion Gap 10 (5-15) Blood Urea Nitrogen 16 mg/dL (7-23) Creatinine 0.6 mg/dL (0.5-0.9) Estimat Glomerular Filtration Rate > 60 mL/min (>60) Glucose Level 77 mg/dL (74-106) Calcium Level 7.5 mg/dL (8.6-10.2) L Total Bilirubin 0.3 mg/dL (0.0-1.2) Aspartate Amino Transf (AST/SGOT) 13 U/L (5-40) Alanine Aminotransferase (ALT/SGPT) 5 U/L (3-33) Alkaline Phosphatase 173 U/L (35-104) H Total Protein 5.5 g/dL (6.6-8.7) L Albumin 1.5 g/dL (3.5-5.2) L Globulin 4.0 g/dL Albumin/Globulin Ratio 0.3 (1.0-2.7) L Current Medications Medications (Trade) Dose Ordered Sig/Pineda Route PRN Reason Start Time Stop Time Status Last Admin Dose Admin Acetaminophen (Tylenol) 650 mg Q4H PRN ORAL Mild Pain (Pain Scale 1-3) 05/05/16 17:00 06/04/16 16:59 05/13/16 08:48 Acetaminophen (Tylenol) 650 mg Q4H PRN ORAL fever 05/05/16 17:00 06/04/16 16:59 Al Hydroxide/Mg Hydroxide (Mylanta II) 30 ml Q4H PRN ORAL dyspepsia 05/05/16 17:00 06/04/16 16:59 Dextrose (Dextrose 50%) STAT PRN IV Hypoglycemia 05/05/16 17:00 06/04/16 16:59 Diphenhydramine HCl 25 mg 25 mg Q3H PRN IVP Itching 05/05/16 17:00 06/04/16 16:59 05/14/16 09:09 Heparin Sodium (Porcine) (Heparin 5000 units/ml) 5,000 units EVERY 12 HOURS SUBQ 05/05/16 21:00 06/04/16 20:59 05/12/16 23:59 Hydromorphone HCl (Dilaudid) 2 mg Q3H PRN IVP For Pain 05/12/16 19:00 05/19/16 18:59 05/14/16 09:09 Magnesium Hydroxide (Mom) 30 ml HSPRN PRN ORAL Constipation 05/05/16 17:00 06/04/16 16:59 Meropenem 1 gm/ Sodium Chloride 55 ml @ 110 mls/hr Q8HR IVPB 05/11/16 14:00 05/16/16 13:59 05/14/16 06:13 Metoprolol Succinate (Toprol XL) 25 mg DAILY ORAL 05/13/16 09:00 06/12/16 08:59 05/14/16 08:56 Ondansetron HCl (Zofran) 4 mg Q6H PRN IVP Nausea & Vomiting 05/05/16 17:00 06/04/16 16:59 05/14/16 09:11 Oxycodone HCl (OxyCONTIN) 20 mg Q12HR ORAL 05/13/16 09:00 05/20/16 08:59 05/14/16 08:56 Pantoprazole (Protonix) 40 mg DAILY ORAL 05/06/16 09:00 06/05/16 08:59 05/14/16 08:56 Tigecycline/ Dextrose (Tygacil/D5W) 110 ml @ 220 mls/hr EVERY 12 HOURS IVPB 05/11/16 21:00 05/18/16 20:59 05/14/16 08:56 Zolpidem Tartrate (Ambien) 5 mg HSPRN PRN ORAL Insomnia 05/05/16 17:00 06/04/16 16:59 GRZEGORZ MARTINEZ May 14, 2016 12:37
[2016-05-14 12:46] VITALS: BP 112/75
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
[2016-05-14 16:07] VITALS: BP 109/78
[2016-05-14 20:24] VITALS: BP 113/65
[2016-05-15] VITALS: BP 106/60
--- NOTE | 2016-05-15 00:17 | Progress Note ---
DATE: 05/13/2016 CARDIOLOGY PROGRESS NOTE: SUBJECTIVE: Case discussed with Dr. Glover. The patient continues to have rapid heart rate and sinus tachycardia on monitor. The patient had a negative CT angiogram of the chest. Thyroid function is within normal limits. The patient complains of diffuse body pain, but no shortness of breath, palpitations or chest pain. OBJECTIVE: LUNGS: Bilateral breath sounds. HEART: Regular rhythm. Rapid rate. Normal S1, S2. ABDOMEN: Soft. EXTREMITIES: No cords or edema. The patient complains of diffuse body pain, but no shortness of breath, palpitations or chest pain. IMPRESSION: 1. Sinus tachycardia secondary to anemia, pain, and psychiatric factors. 2. Add beta-bob. 3. Continue pain control. 4. DVT prophylaxis. Karthik Parra M.D. DR: Marquez JOB#: [id number] CC:
[2016-05-15] MEDS: DiphenhydrAMINE 50mg/ml Inj IVP PRN ×5 (02:06→21:47)
--- NOTE | 2016-05-15 03:57 | Progress Note ---
SUBJECTIVE: The patient has had a drop in her hemoglobin. Her wound do have blood and do have slight bleeding at times. She has not had any hematemesis or bright red blood per rectum. Monitor with sinus tachycardia in the low 100 range. PHYSICAL EXAMINATION: VITAL SIGNS: Blood pressure 112/75, heart rate 91 to 100. NECK: Supple. LUNGS: Clear. CARDIAC: Regular. Normal S1, S2. EXTREMITIES: Without edema. IMPRESSION: 1. Anemia with hemoglobin of 7.9. 2. Sinus tachycardia secondary to multiple factors as previously outlined. 3. Multiple wounds. 4. Severe protein-calorie malnutrition. PLAN: 1. Maintain low-dose beta-bob for now and taper off as clinical parameters improve. 2. Transfuse packed red blood cells x1 unit. 3. Pain control. 4. Maintain adequate hydration. 5. Deep venous thrombosis prophylaxis. Karthik Parra M.D. DR: SYLVIA JOB#: [id number] CC:
[2016-05-15 04:00] VITALS: BP 112/65
[2016-05-15] MEDS: Meropenem 1 GM in NS 55 ML IVPB SCH ×3 (05:30→22:45)
--- NOTE | 2016-05-15 06:58 | General Progress Note ---
Assessment/Plan Problem List: (1) Tachycardia ICD Codes: R00.0 - Tachycardia, unspecified SNOMED: 1716236 (2) Anemia ICD Codes: D64.9 - Anemia, unspecified SNOMED: 264028434 Qualifiers: Qualified Codes: D50.0 - Iron deficiency anemia secondary to blood loss ( chronic) (3) Opiate dependence ICD Codes: F11.20 - Opioid dependence, uncomplicated SNOMED: 78102588 (4) Dehydration ICD Codes: E86.0 - Dehydration SNOMED: 13219081 (5) Intractable pain ICD Codes: R52 - Pain, unspecified; R19.7 - Diarrhea, unspecified SNOMED: 83883775 Status: stable, progressing Assessment/Plan monitor h/h transfuse as needed check stool ob and iron panel suspect anemia due to chronic disease and blood loss from wounds rate control pain control added cepcol dc planning when hr better controlled Subjective ROS Limited/Unobtainable: No Constitutional: Reports: malaise, weakness HEENT: Reports: no symptoms Cardiovascular: Reports: no symptoms Respiratory: Reports: no symptoms Gastrointestinal/Abdominal: Reports: no symptoms Genitourinary: Reports: no symptoms 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: Reports: pre-existing deficit Endocrine: Reports: no symptoms Hematologic/Lymphatic: Reports: anemia Allergies: Coded Allergies: CEFTRIAXONE (Verified Allergy, Intermediate, SOB, HR-140bpm, face swollen , pt became red, 10/24/15) CODEINE (Verified Allergy, Intermediate, SWELLING, 01/03/11) LATEX (Verified Allergy, Intermediate, SWELLING, 01/03/11) PIPERACILLIN (Verified Allergy, Intermediate, Itching, 08/29/15) 08/29/15 tolerates Ceftaroline TAZOBACTAM (Verified Allergy, Intermediate, Itching, 01/29/15) POLYMYXIN B (Verified Allergy, Mild, Rash, 04/08/16) Suspected allergy reported by VANCOMYCIN (Verified Allergy, Mild, 07/15/14) ASPARAGINASE (Verified Allergy, Unknown, 01/28/14) CEFUROXIME (Unverified Allergy, Unknown, 04/19/16) IRON (Verified Allergy, Unknown, 01/28/14) All Systems: reviewed and negative except above Subjective weak. d/w television specialist. mostly sinus tach low 100s. s/p 1 unit prbc. c/o cough. asking for cepacol Objective Last 24 Hour Vital Signs Date Time Temp Pulse Resp B/P Pulse Ox O2 Delivery O2 Flow Rate FiO2 05/15/16 04:00 100 05/15/16 04:00 97.0 100 20 112/65 98 Room Air 05/15/16 00:00 98.7 52 20 106/60 94 Room Air 05/15/16 00:00 97 05/14/16 20:24 98.8 90 18 113/65 98 Room Air 05/14/16 20:00 99 05/14/16 16:07 97.2 98 20 109/78 97 Room Air 05/14/16 16:00 96 05/14/16 12:46 97.5 91 20 112/75 95 Room Air 05/14/16 12:00 90 05/14/16 08:56 100 97/58 05/14/16 08:46 97.0 100 20 97/58 96 Room Air 05/14/16 08:00 98 Intake and Output 05/14/16 05/15/16 18:59 06:59 Intake Total 810 ml 330 ml Balance 810 ml 330 ml Intake Oral 480 ml IV Total 330 ml 330 ml # Voids 1 Height (Feet): 5 Height (Inches): 5.00 Weight (Pounds): 210 Objective General Appearance: WD/WN, alert Neck: supple Cardiovascular: normal rate, tachycardia - low 100s Respiratory/Chest: lungs clear Abdomen: normal bowel sounds, non tender, soft, no organomegaly Edema: no edema noted Arm (L), no edema noted Arm (R), no edema noted Leg (L), no edema noted Leg (R), no edema noted Pedal (L), no edema noted Pedal (R), no edema noted Generalized Neurologic: paraplgeic BONG BRUNNER May 15, 2016 06:58
[2016-05-15 08:00] VITALS: BP 107/62
[2016-05-15] MEDS: Tigecycline 50 MG in D5W 110 ML IVPB SCH ×2 (08:29→21:47)
[2016-05-15] MEDS: oxyCONTIN 20mg tab ORAL SCH ×2 (08:30→21:00)
[2016-05-15] MEDS: Heparin 5000 units/ml inj SUBQ SCH ×2 (08:31→21:00)
--- NOTE | 2016-05-15 11:46 | Infectious Diseases Prog Note ---
Assessment/Plan Assessment/Plan ASSESSMENT AND PLAN: 1. e.coli/morganella and klebsiella sacral wound infection, high suspicion for osteo, ct abdomen and pelvis with possible lumbar spine osteo/discitis - - culture from bone biopsy, could not find path to r/o osteo when I discussed this with pathology MD on last visit - watch labs, sed rate - wound treatment per plastic surgery and protocol - consider spine surgery evaluation for further recs about possible lumbar spine osteo/discitis and further imaging, w/u etc. - meropenem for 21 days to treat as osteo osteo for total of 6 weeks (may need to adjust abx depending on below bc results) - patient will need ecf 2. 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 tachycardia - w/u per primary, ct angio negative for pe, tachycardia better 4. n/v improved, some cough, ct negative for pna 5. History of osteoarthritis and treatment. 6. Colostomy. 7. Paraplegia. 8. Anemia. 9. ? diabetes - patient denies dm hx, bs elevated only with infection per pt 10. Chronic pain management and chronic pain syndrome, anxiety 11. History of cholelithiasis. 12. Pain management for primary, opiate dependency 13. Multiple allergies to asparaginase, Rocephin, codeine, iron, Latex, piperacillin, tazobactam, and vancomycin. 14. wound care per protocol and plastic surgery 15. The case was discussed with RN 16. The case was discussed with the patient. 17. fh-nc, sh-negative, mar noted 18. notes and records reviewed 19. communicated with Dr. Healy 20. d/w patient and answered questions Subjective Constitutional: Denies: fever HEENT: Denies: congestion Respiratory: Denies: shortness of breath Cardiovascular: Denies: chest pain Gastrointestinal/Abdominal: Reports: other, Denies: nausea, vomiting Genitourinary: Reports: other - no bay, Denies: dysuria, frequency, hematuria Neurologic: Denies: headache Psychiatric: Denies: depression Skin: Denies: rash Hematologic: Denies: bleeding Allergies: Coded Allergies: CEFTRIAXONE (Verified Allergy, Intermediate, SOB, HR-140bpm, face swollen , pt became red, 10/24/15) CODEINE (Verified Allergy, Intermediate, SWELLING, 01/03/11) LATEX (Verified Allergy, Intermediate, SWELLING, 01/03/11) PIPERACILLIN (Verified Allergy, Intermediate, Itching, 08/29/15) 08/29/15 tolerates Ceftaroline TAZOBACTAM (Verified Allergy, Intermediate, Itching, 01/29/15) POLYMYXIN B (Verified Allergy, Mild, Rash, 04/08/16) Suspected allergy reported by VANCOMYCIN (Verified Allergy, Mild, 07/15/14) ASPARAGINASE (Verified Allergy, Unknown, 01/28/14) CEFUROXIME (Unverified Allergy, Unknown, 04/19/16) IRON (Verified Allergy, Unknown, 01/28/14) Objective Vital Signs Last 24 Hour Vital Signs Date Time Temp Pulse Resp B/P Pulse Ox O2 Delivery O2 Flow Rate FiO2 05/15/16 08:30 99 107/62 05/15/16 08:00 97 05/15/16 08:00 97.5 99 19 107/62 97 Room Air 05/15/16 04:00 100 05/15/16 04:00 97.0 100 20 112/65 98 Room Air 05/15/16 00:00 98.7 52 20 106/60 94 Room Air 05/15/16 00:00 97 05/14/16 20:24 98.8 90 18 113/65 98 Room Air 05/14/16 20:00 99 05/14/16 16:07 97.2 98 20 109/78 97 Room Air 05/14/16 16:00 96 05/14/16 12:46 97.5 91 20 112/75 95 Room Air 05/14/16 12:00 90 Height (Feet): 5 Height (Inches): 5.00 Weight (Pounds): 210 General Appearance: no acute distress HEENT: normocephalic, atraumatic, anicteric, mucous membranes moist, PERRL, EOMI, pharynx normal, supple, no JVD Respiratory/Chest: lungs clear, normal breath sounds, no respiratory distress, no accessory muscle use Cardiovascular: normal rate, regular rhythm, no gallop/murmur, no JVD Abdomen: normal bowel sounds, soft, non tender, no organomegaly, non distended Genitourinary: other - no bay Extremities: no cyanosis Skin: no rash 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: billing analyst II-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 Complete 05/05/16 12:30 Rectum VRE Culture - Final NO VANCOMYCIN RESISTANT ENTEROCOCCUS ... Complete Labs Test 05/14/16 04:10 05/15/16 11:30 White Blood Count 10.0 K/UL (4.8-10.8) Red Blood Count 2.87 M/UL (4.20-5.40) Hemoglobin 7.9 G/DL (12.0-16.0) Hematocrit 23.9 % (37.0-47.0) Mean Corpuscular Volume 83 FL (80-99) Mean Corpuscular Hemoglobin 27.6 PG (27.0-31.0) Mean Corpuscular Hemoglobin Concent 33.1 G/DL (32.0-36.0) Red Cell Distribution Width 17.9 % (11.6-14.8) Platelet Count 309 K/UL (150-450) Mean Platelet Volume 7.6 FL (6.5-10.1) Neutrophils (%) (Auto) % (45.0-75.0) Lymphocytes (%) (Auto) % (20.0-45.0) Monocytes (%) (Auto) % (1.0-10.0) Eosinophils (%) (Auto) % (0.0-3.0) Basophils (%) (Auto) % (0.0-2.0) Differential Total Cells Counted 100 Neutrophils % (Manual) 63 % (45-75) Lymphocytes % (Manual) 27 % (20-45) Monocytes % (Manual) 10 % (1-10) Eosinophils % (Manual) 0 % (0-3) Basophils % (Manual) 0 % (0-2) Band Neutrophils 0 % (0-8) Platelet Estimate Adequate Platelet Morphology Normal Hypochromasia 1+ Anisocytosis 1+ Sodium Level 132 mEQ/L (135-145) Potassium Level 5.2 mEQ/L (3.4-4.9) Chloride Level 98 mEQ/L (98-107) Carbon Dioxide Level 24 mEQ/L (20-30) Anion Gap 10 (5-15) Blood Urea Nitrogen 16 mg/dL (7-23) Creatinine 0.6 mg/dL (0.5-0.9) Estimat Glomerular Filtration Rate > 60 mL/min (>60) Glucose Level 77 mg/dL (74-106) Calcium Level 7.5 mg/dL (8.6-10.2) Total Bilirubin 0.3 mg/dL (0.0-1.2) Aspartate Amino Transf (AST/SGOT) 13 U/L (5-40) Alanine Aminotransferase (ALT/SGPT) 5 U/L (3-33) Alkaline Phosphatase 173 U/L (35-104) Total Protein 5.5 g/dL (6.6-8.7) Albumin 1.5 g/dL (3.5-5.2) Globulin 4.0 g/dL Albumin/Globulin Ratio 0.3 (1.0-2.7) Laboratory Tests Test 05/15/16 11:30 White Blood Count Pending Red Blood Count Pending Hemoglobin Pending Hematocrit Pending Mean Corpuscular Volume Pending Mean Corpuscular Hemoglobin Pending Mean Corpuscular Hemoglobin Concent Pending Red Cell Distribution Width Pending Platelet Count Pending Mean Platelet Volume Pending Neutrophils (%) (Auto) Pending Lymphocytes (%) (Auto) Pending Monocytes (%) (Auto) Pending Eosinophils (%) (Auto) Pending Basophils (%) (Auto) Pending Current Medications Medications (Trade) Dose Ordered Sig/Pineda Route PRN Reason Start Time Stop Time Status Last Admin Dose Admin Acetaminophen (Tylenol) 650 mg Q4H PRN ORAL Mild Pain (Pain Scale 1-3) 05/05/16 17:00 06/04/16 16:59 05/13/16 08:48 Acetaminophen (Tylenol) 650 mg Q4H PRN ORAL fever 05/05/16 17:00 06/04/16 16:59 Al Hydroxide/Mg Hydroxide (Mylanta II) 30 ml Q4H PRN ORAL dyspepsia 05/05/16 17:00 06/04/16 16:59 Cetylpyridinium Chloride (Cepacol) 1 lozenge Q2H PRN MICHAEL For Pain 05/15/16 07:00 06/14/16 06:59 05/15/16 10:19 Dextrose (Dextrose 50%) STAT PRN IV Hypoglycemia 05/05/16 17:00 06/04/16 16:59 Diphenhydramine HCl (Benadryl) 25 mg Q3H PRN IVP Itching 05/05/16 17:00 06/04/16 16:59 05/15/16 10:18 Heparin Sodium (Porcine) (Heparin 5000 units/ml) 5,000 units EVERY 12 HOURS SUBQ 05/05/16 21:00 06/04/16 20:59 05/14/16 21:20 Hydromorphone HCl (Dilaudid) 2 mg Q3H PRN IVP For Pain 05/12/16 19:00 05/19/16 18:59 05/15/16 10:19 Magnesium Hydroxide (Mom) 30 ml HSPRN PRN ORAL Constipation 05/05/16 17:00 06/04/16 16:59 Meropenem 1 gm/ Sodium Chloride 55 ml @ 110 mls/hr Q8HR IVPB 05/14/16 14:00 05/19/16 13:59 05/15/16 05:30 Metoprolol Succinate 25 mg 25 mg DAILY ORAL 05/13/16 09:00 06/12/16 08:59 05/14/16 08:56 Ondansetron HCl (Zofran) 4 mg Q6H PRN IVP Nausea & Vomiting 05/05/16 17:00 06/04/16 16:59 05/14/16 09:11 Oxycodone HCl (OxyCONTIN) 20 mg Q12HR ORAL 05/13/16 09:00 05/20/16 08:59 05/15/16 08:30 Pantoprazole (Protonix) 40 mg DAILY ORAL 05/06/16 09:00 06/05/16 08:59 05/15/16 08:30 Tigecycline/ Dextrose (Tygacil/D5W) 110 ml @ 220 mls/hr EVERY 12 HOURS IVPB 05/14/16 21:00 05/21/16 20:59 05/15/16 08:29 Zolpidem Tartrate (Ambien) 5 mg HSPRN PRN ORAL Insomnia 05/05/16 17:00 06/04/16 16:59 GRZEGORZ MARTINEZ May 15, 2016 11:46
[2016-05-15 11:48] LABS: BASOPHILS % (AUTO) 0.8 % (0.0-2.0); EOSINOPHILS % (AUTO) 3.7 % (0.0-3.0); LYMPHOCYTES % (AUTO) 31.7 % (20.0-45.0); MEAN CORPUSCULAR HEMOGLOBIN 27.9 PG (27.0-31.0); MEAN CORPUSCULAR HGB CONC 32.9 G/DL (32.0-36.0); MEAN CORPUSCULAR VOLUME 85 FL (80-99); MONOCYTES % (AUTO) 6.9 % (1.0-10.0); NEUTROPHILS % (AUTO) 56.9 % (45.0-75.0); PLATELET COUNT 358 K/UL (150-450); RED BLOOD COUNT 3.42 M/UL (4.20-5.40); RED CELL DISTRIBUTION WIDTH 17.3 % (11.6-14.8); WHITE BLOOD COUNT 8.4 K/UL (4.8-10.8)
[2016-05-15 12:00] VITALS: BP 102/58
[2016-05-15] MEDS ORDERED: Tubing IV Secondary IV ONE (14:40)
[2016-05-15] MEDS ORDERED: NS 275ml ONE (14:40)
[2016-05-15] MEDS ORDERED: Tubing Blood Filter IV ONE (14:40)
[2016-05-15 16:00] VITALS: BP 117/71
[2016-05-16] VITALS: BP 107/67
--- NOTE | 2016-05-16 03:28 | Progress Note ---
DATE: 05/15/2016 CARDIOLOGY PROGRESS NOTE SUBJECTIVE: The patient has a cough still with diffuse pain. Heart rate is better now remaining sinus tach, but less frequently and low 100 range. She is status post packed red blood cell transfusion yesterday. OBJECTIVE: VITAL SIGNS: Blood pressure 112/65, pulse 100, respirations 20, and afebrile. Oxygen saturation is 94% to 98% on room air. LUNGS: Bilateral breath sounds. HEART: Regular rhythm and rate. Normal S1 and S2. ABDOMEN: Soft. EXTREMITIES: No edema. LABORATORY DATA: White count 8.4 and hemoglobin 9.5. IMPRESSION: 1. Sinus tachycardia resolving on low dose beta-bob. 2. Severe protein-calorie malnutrition. 3. Anemia status post transfusion. 4. Chronic pain. 5. Sacral wound infection. 6. Line sepsis. 7. Bacteremia. PLAN: 1. Therapy in place. 2. Stable for assisted facility. 3. Continue low-dose beta-bob. 4. Antibiotics. 5. Pain control. 6. Wound care. 7. Monitor hemoglobins. 8. DVT prophylaxis. 9. Protein supplement. Karthik Parra M.D. DR: RANDAL JOB#: [id number] CC:
[2016-05-16 04:00] VITALS: BP 113/80
[2016-05-16] MEDS: Meropenem 1 GM in NS 55 ML IVPB SCH ×3 (05:52→23:06)
[2016-05-16 08:00] VITALS: BP 108/76
--- NOTE | 2016-05-16 08:17 | General Progress Note ---
Assessment/Plan Problem List: (1) Tachycardia ICD Codes: R00.0 - Tachycardia, unspecified SNOMED: 6586244 (2) Anemia ICD Codes: D64.9 - Anemia, unspecified SNOMED: 152512156 Qualifiers: Qualified Codes: D50.0 - Iron deficiency anemia secondary to blood loss ( chronic) (3) Opiate dependence ICD Codes: F11.20 - Opioid dependence, uncomplicated SNOMED: 73069313 (4) Dehydration ICD Codes: E86.0 - Dehydration SNOMED: 50582954 (5) Intractable pain ICD Codes: R52 - Pain, unspecified; R19.7 - Diarrhea, unspecified SNOMED: 41080272 Status: stable, progressing Assessment/Plan monitor h/h transfuse as needed check stool ob and iron panel suspect anemia due to chronic disease and blood loss from wounds rate control pain control check labs dc planning today if labs ok Subjective ROS Limited/Unobtainable: No Constitutional: Reports: malaise, weakness HEENT: Reports: no symptoms Cardiovascular: Reports: palpitations Respiratory: Reports: no symptoms Gastrointestinal/Abdominal: Reports: no symptoms Genitourinary: Reports: no symptoms 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: Reports: pre-existing deficit, weakness Endocrine: Reports: no symptoms Hematologic/Lymphatic: Reports: anemia Allergies: Coded Allergies: CEFTRIAXONE (Verified Allergy, Intermediate, SOB, HR-140bpm, face swollen , pt became red, 10/24/15) CODEINE (Verified Allergy, Intermediate, SWELLING, 01/03/11) LATEX (Verified Allergy, Intermediate, SWELLING, 01/03/11) PIPERACILLIN (Verified Allergy, Intermediate, Itching, 08/29/15) 08/29/15 tolerates Ceftaroline TAZOBACTAM (Verified Allergy, Intermediate, Itching, 01/29/15) POLYMYXIN B (Verified Allergy, Mild, Rash, 04/08/16) Suspected allergy reported by VANCOMYCIN (Verified Allergy, Mild, 07/15/14) ASPARAGINASE (Verified Allergy, Unknown, 01/28/14) CEFUROXIME (Unverified Allergy, Unknown, 04/19/16) IRON (Verified Allergy, Unknown, 01/28/14) All Systems: reviewed and negative except above Subjective weak. c/o generalized pain and palpitations. d/w manager telecom. mostly sinus tach < 110s. Objective Last 24 Hour Vital Signs Date Time Temp Pulse Resp B/P Pulse Ox O2 Delivery O2 Flow Rate FiO2 05/16/16 04:00 104 05/16/16 04:00 97.0 106 18 113/80 Room Air 05/16/16 00:00 110 05/16/16 00:00 97.3 109 20 107/67 95 Room Air 05/15/16 16:00 97.0 93 18 117/71 96 Room Air 05/15/16 12:00 97.7 103 18 102/58 94 Room Air 05/15/16 12:00 102 05/15/16 08:30 99 107/62 Intake and Output 05/15/16 05/16/16 19:00 07:00 Intake Total 230 ml 645 ml Balance 230 ml 645 ml Intake Oral 120 ml 590 ml IV Total 110 ml 55 ml # Voids 1 Laboratory Tests 05/15/16 11:30: White Blood Count 8.4, Red Blood Count 3.42L, Hemoglobin 9.5L, Hematocrit 29.0L , Mean Corpuscular Volume 85, Mean Corpuscular Hemoglobin 27.9, Mean Corpuscular Hemoglobin Concent 32.9, Red Cell Distribution Width 17.3H, Platelet Count 358, Mean Platelet Volume 8.0, Neutrophils (%) (Auto) 56.9, Lymphocytes (%) (Auto) 31.7, Monocytes (%) (Auto) 6.9, Eosinophils (%) (Auto) 3.7H, Basophils (%) (Auto) 0.8 Height (Feet): 5 Height (Inches): 5.00 Weight (Pounds): 210 Objective General Appearance: WD/WN, alert Neck: supple Cardiovascular: normal rate, tachycardia - low 100s Respiratory/Chest: lungs clear Abdomen: normal bowel sounds, non tender, soft, no organomegaly Edema: no edema noted Arm (L), no edema noted Arm (R), no edema noted Leg (L), no edema noted Leg (R), no edema noted Pedal (L), no edema noted Pedal (R), no edema noted Generalized Neurologic: paraplgeic BONG BRUNNER May 16, 2016 08:17
--- NOTE | 2016-05-16 08:31 | General Progress Note ---
Assessment/Plan Assessment/Plan (1) Paraplegia (2) Spinal cord injury (3) Lumbar spine osteomyelitis discitis (4) Sacral decubitus ulcer (5) Intractable pain Pt will be continued on OxyContin and Dilaudid. Pt was d/w Dr. Avina and he concurred. Subjective Date patient seen: May 16, 2016 Time patient seen: 07:30 - am Allergies: Coded Allergies: CEFTRIAXONE (Verified Allergy, Intermediate, SOB, HR-140bpm, face swollen , pt became red, 10/24/15) CODEINE (Verified Allergy, Intermediate, SWELLING, 01/03/11) LATEX (Verified Allergy, Intermediate, SWELLING, 01/03/11) PIPERACILLIN (Verified Allergy, Intermediate, Itching, 08/29/15) 08/29/15 tolerates Ceftaroline TAZOBACTAM (Verified Allergy, Intermediate, Itching, 01/29/15) POLYMYXIN B (Verified Allergy, Mild, Rash, 04/08/16) Suspected allergy reported by MD VANCOMYCIN (Verified Allergy, Mild, 07/15/14) ASPARAGINASE (Verified Allergy, Unknown, 01/28/14) CEFUROXIME (Unverified Allergy, Unknown, 04/19/16) IRON (Verified Allergy, Unknown, 01/28/14) Subjective Constitutional: Reports: weakness, Denies: chills, diaphoresis, fever, malaise HEENT: Denies: blurred vision, double vision, ear discharge, ear pain, eye pain , mouth pain, mouth swelling, nose congestion, nose pain, tearing, throat pain, throat swelling Cardiovascular: Denies: chest pain, edema, irregular heart rate, lightheadedness, palpitations, syncope Respiratory: Denies: SOB at rest, SOB with excertion, cough, orthopnea, shortness of breath, sputum, stridor, wheezing Gastrointestinal/Abdominal: Reports: poor appetite, Denies: abdomen distended, abdominal pain, black stools, blood in stool, constipated, diarrhea, difficulty swallowing, nausea, poor fluid intake, rectal bleeding, tarry stools, vomiting Genitourinary: Denies: burning, discharge, flank pain, frequency, hematuria, incontinence, pain, urgency 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: Reports: depressed, paresthesia, weakness, Denies: anxiety, emotional problems, headache, numbness, pre-existing deficit, seizure, tingling, tremors Endocrine: Denies: excessive sweating, flushing, increased hunger, increased thirst, increased urine, intolerance to cold, intolerance to heat, unexplained weight gain, unexplained weight loss Hematologic/Lymphatic: Reports: anemia, Denies: easy bleeding, easy bruising Subjective: Her pain has been stable on the medications. She is comfortable in bed with no new complaints. Objective Last 24 Hour Vital Signs Date Time Temp Pulse Resp B/P Pulse Ox O2 Delivery O2 Flow Rate FiO2 05/16/16 04:00 104 05/16/16 04:00 97.0 106 18 113/80 Room Air 05/16/16 00:00 110 05/16/16 00:00 97.3 109 20 107/67 95 Room Air 05/15/16 16:00 97.0 93 18 117/71 96 Room Air 05/15/16 12:00 97.7 103 18 102/58 94 Room Air 05/15/16 12:00 102 05/15/16 08:30 99 107/62 Intake and Output 05/15/16 05/16/16 19:00 07:00 Intake Total 230 ml 645 ml Balance 230 ml 645 ml Intake Oral 120 ml 590 ml IV Total 110 ml 55 ml # Voids 1 Laboratory Tests 05/15/16 11:30: White Blood Count 8.4, Red Blood Count 3.42L, Hemoglobin 9.5L, Hematocrit 29.0L , Mean Corpuscular Volume 85, Mean Corpuscular Hemoglobin 27.9, Mean Corpuscular Hemoglobin Concent 32.9, Red Cell Distribution Width 17.3H, Platelet Count 358, Mean Platelet Volume 8.0, Neutrophils (%) (Auto) 56.9, Lymphocytes (%) (Auto) 31.7, Monocytes (%) (Auto) 6.9, Eosinophils (%) (Auto) 3.7H, Basophils (%) (Auto) 0.8 Height (Feet): 5 Height (Inches): 5.00 Weight (Pounds): 210 Objective General Appearance: no apparent distress, alert EENT: PERRL/EOMI, normal ENT inspection Neck: non-tender, normal alignment Cardiovascular: normal rate, regular rhythm Respiratory/Chest: chest wall non-tender, decreased breath sounds Abdomen: non tender, soft Extremities: swelling Edema: mild edema Neurologic: alert, oriented x 3 SETH RODRIGUES May 16, 2016 08:31
[2016-05-16] MEDS: Heparin 5000 units/ml inj SUBQ SCH ×2 (09:00→21:12)
[2016-05-16] MEDS ORDERED: NS 275ml ONE (09:38)
[2016-05-16] MEDS: Tigecycline 50 MG in D5W 110 ML IVPB SCH ×2 (09:52→21:11)
[2016-05-16] MEDS: DiphenhydrAMINE 50mg/ml Inj IVP PRN ×3 (09:52→21:10)
[2016-05-16] MEDS: oxyCONTIN 20mg tab ORAL SCH ×2 (09:53→21:00)
[2016-05-16 10:33] LABS: BASOPHILS % (AUTO) 0.5 % (0.0-2.0); EOSINOPHILS % (AUTO) 1.5 % (0.0-3.0); LYMPHOCYTES % (AUTO) 27.9 % (20.0-45.0); MEAN CORPUSCULAR HEMOGLOBIN 27.3 PG (27.0-31.0); MEAN CORPUSCULAR HGB CONC 32.2 G/DL (32.0-36.0); MEAN CORPUSCULAR VOLUME 85 FL (80-99); MEAN PLATELET VOLUME 8.9 FL (6.5-10.1); MONOCYTES % (AUTO) 4.6 % (1.0-10.0); NEUTROPHILS % (AUTO) 65.5 % (45.0-75.0); PLATELET COUNT 398 K/UL (150-450); RED BLOOD COUNT 3.69 M/UL (4.20-5.40); RED CELL DISTRIBUTION WIDTH 17.4 % (11.6-14.8); WHITE BLOOD COUNT 8.8 K/UL (4.8-10.8)
[2016-05-16 12:00] VITALS: BP 124/83
[2016-05-16 20:00] VITALS: BP 121/69
[2016-05-17] VITALS: BP 127/74
[2016-05-17] MEDS: DiphenhydrAMINE 50mg/ml Inj IVP PRN ×6 (00:44→20:36)
--- NOTE | 2016-05-17 01:37 | Progress Note ---
DATE: 05/16/2016 SUBJECTIVE: The patient continues to have pain. She is ____ responding to her current regimen. No palpitations. No shortness of breath. OBJECTIVE: VITAL SIGNS: Blood pressure 113/80, heart rate 75 to 106, respiratory rate 17 to 19, oxygen saturation on room air 95 to 98%, and afebrile. IMPRESSION: 1. Acute intractable pain. 2. Hypovolemia and dehydration, improved. 3. Opioid dependent. 4. Secondary sinus tachycardia. 5. Anemia of chronic disease. 6. Multiple wound with associated infection. PLAN: 1. Titrate beta-bob. 2. Maintain adequate hydration. 3. Maintain hemoglobin above 8 grams. 4. Vitamin supplementation. 5. DVT prophylaxis. 6. Antibiotics, wound care, and pain management. Karthik Parra M.D. DR: FAY JOB#: [id number] CC:
[2016-05-17 04:00] VITALS: BP 100/60
[2016-05-17] MEDS: Meropenem 1 GM in NS 55 ML IVPB SCH ×4 (05:20→22:36)
[2016-05-17 08:08] VITALS: BP 103/67
--- NOTE | 2016-05-17 08:30 | General Progress Note ---
Assessment/Plan Assessment/Plan (1) Paraplegia (2) Spinal cord injury (3) Lumbar spine osteomyelitis discitis (4) Sacral decubitus ulcer (5) Intractable pain Pt will be continued on OxyContin and Dilaudid. Pt was d/w Dr. Avina and he concurred. Subjective Date patient seen: May 17, 2016 Time patient seen: 07:45 - am Allergies: Coded Allergies: CEFTRIAXONE (Verified Allergy, Intermediate, SOB, HR-140bpm, face swollen , pt became red, 10/24/15) CODEINE (Verified Allergy, Intermediate, SWELLING, 01/03/11) LATEX (Verified Allergy, Intermediate, SWELLING, 01/03/11) PIPERACILLIN (Verified Allergy, Intermediate, Itching, 08/29/15) 08/29/15 tolerates Ceftaroline TAZOBACTAM (Verified Allergy, Intermediate, Itching, 01/29/15) POLYMYXIN B (Verified Allergy, Mild, Rash, 04/08/16) Suspected allergy reported by MD VANCOMYCIN (Verified Allergy, Mild, 07/15/14) ASPARAGINASE (Verified Allergy, Unknown, 01/28/14) CEFUROXIME (Unverified Allergy, Unknown, 04/19/16) IRON (Verified Allergy, Unknown, 01/28/14) Subjective Constitutional: Reports: weakness, Denies: chills, diaphoresis, fever, malaise HEENT: Denies: blurred vision, double vision, ear discharge, ear pain, eye pain , mouth pain, mouth swelling, nose congestion, nose pain, tearing, throat pain, throat swelling Cardiovascular: Denies: chest pain, edema, irregular heart rate, lightheadedness, palpitations, syncope Respiratory: Denies: SOB at rest, SOB with excertion, cough, orthopnea, shortness of breath, sputum, stridor, wheezing Gastrointestinal/Abdominal: Reports: poor appetite, Denies: abdomen distended, abdominal pain, black stools, blood in stool, constipated, diarrhea, difficulty swallowing, nausea, poor fluid intake, rectal bleeding, tarry stools, vomiting Genitourinary: Denies: burning, discharge, flank pain, frequency, hematuria, incontinence, pain, urgency 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: Reports: depressed, paresthesia, weakness, Denies: anxiety, emotional problems, headache, numbness, pre-existing deficit, seizure, tingling, tremors Endocrine: Denies: excessive sweating, flushing, increased hunger, increased thirst, increased urine, intolerance to cold, intolerance to heat, unexplained weight gain, unexplained weight loss Hematologic/Lymphatic: Reports: anemia, Denies: easy bleeding, easy bruising Subjective: Pt is lying in bed pain is tolerated on the medications. Objective Last 24 Hour Vital Signs Date Time Temp Pulse Resp B/P Pulse Ox O2 Delivery O2 Flow Rate FiO2 05/17/16 08:08 97.3 100 20 103/67 97 Room Air 05/17/16 04:00 96.3 100 20 100/60 97 Room Air 05/17/16 01:15 97.9 05/17/16 00:00 96.8 110 20 127/74 97 Room Air 05/17/16 00:00 103 05/16/16 20:00 98.2 101 20 121/69 96 Room Air 05/16/16 20:00 101 05/16/16 16:00 103 05/16/16 14:01 96 05/16/16 12:00 97.9 75 19 124/83 98 Room Air 05/16/16 09:54 114 108/76 Intake and Output 05/16/16 05/17/16 19:00 07:00 Intake Total 785 ml Balance 785 ml Intake Oral 620 ml IV Total 165 ml # Voids 1 # Bowel Movements 2 Laboratory Tests 05/16/16 10:15: White Blood Count 8.8, Red Blood Count 3.69L, Hemoglobin 10.1L, Hematocrit 31.3L , Mean Corpuscular Volume 85, Mean Corpuscular Hemoglobin 27.3, Mean Corpuscular Hemoglobin Concent 32.2, Red Cell Distribution Width 17.4H, Platelet Count 398, Mean Platelet Volume 8.9, Neutrophils (%) (Auto) 65.5, Lymphocytes (%) (Auto) 27.9, Monocytes (%) (Auto) 4.6, Eosinophils (%) (Auto) 1.5, Basophils (%) (Auto) 0.5 Height (Feet): 5 Height (Inches): 5.00 Weight (Pounds): 210 Objective General Appearance: no apparent distress, alert EENT: PERRL/EOMI, normal ENT inspection Neck: non-tender, normal alignment Cardiovascular: normal rate, regular rhythm Respiratory/Chest: chest wall non-tender, decreased breath sounds Abdomen: non tender, soft Extremities: swelling Edema: mild edema Neurologic: alert, oriented x 3 SETH RODRIGUES May 17, 2016 08:30
[2016-05-17] MEDS: oxyCONTIN 20mg tab ORAL SCH ×4 (09:00→22:35)
[2016-05-17] MEDS: Heparin 5000 units/ml inj SUBQ SCH ×3 (09:00→21:00)
[2016-05-17] MEDS ORDERED: Cathflo Alteplase 2mg Inj INJ ONE (10:00)
[2016-05-17] MEDS: Tigecycline 50 MG in D5W 110 ML IVPB SCH ×2 (11:35→22:36)
[2016-05-17 11:43] VITALS: BP 99/64
--- NOTE | 2016-05-17 11:46 | General Progress Note ---
Assessment/Plan Problem List: (1) Tachycardia ICD Codes: R00.0 - Tachycardia, unspecified SNOMED: 3182003 (2) Anemia ICD Codes: D64.9 - Anemia, unspecified SNOMED: 232788932 Qualifiers: Qualified Codes: D50.0 - Iron deficiency anemia secondary to blood loss ( chronic) (3) Opiate dependence ICD Codes: F11.20 - Opioid dependence, uncomplicated SNOMED: 94975613 (4) Dehydration ICD Codes: E86.0 - Dehydration SNOMED: 69305219 (5) Intractable pain ICD Codes: R52 - Pain, unspecified; R19.7 - Diarrhea, unspecified SNOMED: 32232655 Status: stable, progressing Assessment/Plan monitor h/h transfuse as neededrate control pain control check labs declot picc pain rx Subjective ROS Limited/Unobtainable: No Constitutional: Reports: malaise, weakness HEENT: Reports: no symptoms Cardiovascular: Reports: no symptoms Respiratory: Reports: no symptoms Gastrointestinal/Abdominal: Reports: no symptoms Genitourinary: Reports: no symptoms 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: Reports: pre-existing deficit Endocrine: Reports: no symptoms Hematologic/Lymphatic: Reports: no symptoms Allergies: Coded Allergies: CEFTRIAXONE (Verified Allergy, Intermediate, SOB, HR-140bpm, face swollen , pt became red, 10/24/15) CODEINE (Verified Allergy, Intermediate, SWELLING, 01/03/11) LATEX (Verified Allergy, Intermediate, SWELLING, 01/03/11) PIPERACILLIN (Verified Allergy, Intermediate, Itching, 08/29/15) 08/29/15 tolerates Ceftaroline TAZOBACTAM (Verified Allergy, Intermediate, Itching, 01/29/15) POLYMYXIN B (Verified Allergy, Mild, Rash, 04/08/16) Suspected allergy reported by VANCOMYCIN (Verified Allergy, Mild, 07/15/14) ASPARAGINASE (Verified Allergy, Unknown, 01/28/14) CEFUROXIME (Unverified Allergy, Unknown, 04/19/16) IRON (Verified Allergy, Unknown, 01/28/14) All Systems: reviewed and negative except above Subjective weak. c/o generalized pain and palpitations. d/w telemetry registered nurse. mostly sinus tach < 110s. picc line clogged. on abx for wound infection. c/o severe pain Objective Last 24 Hour Vital Signs Date Time Temp Pulse Resp B/P Pulse Ox O2 Delivery O2 Flow Rate FiO2 05/17/16 08:08 97.3 100 20 103/67 97 Room Air 05/17/16 08:00 98 05/17/16 04:00 100 05/17/16 04:00 96.3 100 20 100/60 97 Room Air 05/17/16 01:15 97.9 05/17/16 00:00 96.8 110 20 127/74 97 Room Air 05/17/16 00:00 103 05/16/16 20:00 98.2 101 20 121/69 96 Room Air 05/16/16 20:00 101 05/16/16 16:00 103 05/16/16 14:01 96 05/16/16 12:00 97.9 75 19 124/83 98 Room Air Intake and Output 05/16/16 05/17/16 19:00 07:00 Intake Total 785 ml Balance 785 ml Intake Oral 620 ml IV Total 165 ml # Voids 1 # Bowel Movements 2 Height (Feet): 5 Height (Inches): 5.00 Weight (Pounds): 210 Objective General Appearance: WD/WN, alert Neck: supple Cardiovascular: normal rate, tachycardia - low 100s Respiratory/Chest: lungs clear Abdomen: normal bowel sounds, non tender, soft, no organomegaly Edema: no edema noted Arm (L), no edema noted Arm (R), no edema noted Leg (L), no edema noted Leg (R), no edema noted Pedal (L), no edema noted Pedal (R), no edema noted Generalized Neurologic: paraplgeic BONG BRUNNER May 17, 2016 11:46
--- NOTE | 2016-05-17 14:58 | Infectious Diseases Prog Note ---
Assessment/Plan Assessment/Plan ASSESSMENT AND PLAN: 1. e.coli/morganella and klebsiella sacral wound infection, high suspicion for osteo, ct abdomen and pelvis with possible lumbar spine osteo/discitis - - culture from bone biopsy, could not find path to r/o osteo when I discussed this with pathology MD on last visit - watch labs, sed rate - wound treatment per plastic surgery and protocol - consider spine surgery evaluation for further recs about possible lumbar spine osteo/discitis and further imaging, w/u etc. - meropenem for 19 days to treat as osteo osteo for total of 6 weeks (may need to adjust abx depending on below bc results) - patient will need ecf 2. 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 tachycardia - w/u per primary, ct angio negative for pe, tachycardia improved 4. n/v improved, some cough, ct negative for pna 5. History of osteoarthritis and treatment. 6. Colostomy. 7. Paraplegia. 8. Anemia. 9. ? diabetes - patient denies dm hx, bs elevated only with infection per pt 10. Chronic pain management and chronic pain syndrome, anxiety 11. History of cholelithiasis. 12. Pain management for primary, opiate dependency 13. Multiple allergies to asparaginase, Rocephin, codeine, iron, Latex, piperacillin, tazobactam, and vancomycin. 14. wound care per protocol and plastic surgery 15. The case was discussed with RN 16. The case was discussed with the patient. 17. fh-nc, sh-negative, mar noted 18. notes and records reviewed 19. communicated with Dr. Healy 20. d/w patient and answered questions Subjective Constitutional: Denies: fever HEENT: Denies: congestion Respiratory: Denies: shortness of breath Cardiovascular: Denies: chest pain Gastrointestinal/Abdominal: Reports: other - + colostomy, pt eating more, Denies: nausea, vomiting Psychiatric: Denies: depression Skin: Reports: rash - rash stable Hematologic: Denies: bleeding Musculoskeletal: Denies: pain Allergies: Coded Allergies: CEFTRIAXONE (Verified Allergy, Intermediate, SOB, HR-140bpm, face swollen , pt became red, 10/24/15) CODEINE (Verified Allergy, Intermediate, SWELLING, 01/03/11) LATEX (Verified Allergy, Intermediate, SWELLING, 01/03/11) PIPERACILLIN (Verified Allergy, Intermediate, Itching, 08/29/15) 08/29/15 tolerates Ceftaroline TAZOBACTAM (Verified Allergy, Intermediate, Itching, 01/29/15) POLYMYXIN B (Verified Allergy, Mild, Rash, 04/08/16) Suspected allergy reported by VANCOMYCIN (Verified Allergy, Mild, 07/15/14) ASPARAGINASE (Verified Allergy, Unknown, 01/28/14) CEFUROXIME (Unverified Allergy, Unknown, 04/19/16) IRON (Verified Allergy, Unknown, 01/28/14) Objective Vital Signs Last 24 Hour Vital Signs Date Time Temp Pulse Resp B/P Pulse Ox O2 Delivery O2 Flow Rate FiO2 05/17/16 12:31 98 05/17/16 11:43 97.7 99 18 99/64 96 Room Air 05/17/16 08:08 97.3 100 20 103/67 97 Room Air 05/17/16 08:00 98 05/17/16 04:00 100 05/17/16 04:00 96.3 100 20 100/60 97 Room Air 05/17/16 01:15 97.9 05/17/16 00:00 96.8 110 20 127/74 97 Room Air 05/17/16 00:00 103 05/16/16 20:00 98.2 101 20 121/69 96 Room Air 05/16/16 20:00 101 05/16/16 16:00 103 Height (Feet): 5 Height (Inches): 5.00 Weight (Pounds): 210 General Appearance: no acute distress HEENT: normocephalic, atraumatic, anicteric, mucous membranes moist, PERRL, EOMI, pharynx normal, supple, no JVD Respiratory/Chest: lungs clear, normal breath sounds, no respiratory distress, no accessory muscle use Cardiovascular: normal rate, regular rhythm, no gallop/murmur, no JVD Abdomen: normal bowel sounds, soft, non tender, no organomegaly, non distended Genitourinary: other - no bay Extremities: no clubbing Skin: rash - no new rash, wounds covered 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 Complete 05/05/16 12:30 Rectum VRE Culture - Final NO VANCOMYCIN RESISTANT ENTEROCOCCUS ... Complete Labs Test 05/15/16 11:30 05/16/16 10:15 White Blood Count 8.4 K/UL (4.8-10.8) 8.8 K/UL (4.8-10.8) Red Blood Count 3.42 M/UL (4.20-5.40) 3.69 M/UL (4.20-5.40) Hemoglobin 9.5 G/DL (12.0-16.0) 10.1 G/DL (12.0-16.0) Hematocrit 29.0 % (37.0-47.0) 31.3 % (37.0-47.0) Mean Corpuscular Volume 85 FL (80-99) 85 FL (80-99) Mean Corpuscular Hemoglobin 27.9 PG (27.0-31.0) 27.3 PG (27.0-31.0) Mean Corpuscular Hemoglobin Concent 32.9 G/DL (32.0-36.0) 32.2 G/DL (32.0-36.0) Red Cell Distribution Width 17.3 % (11.6-14.8) 17.4 % (11.6-14.8) Platelet Count 358 K/UL (150-450) 398 K/UL (150-450) Mean Platelet Volume 8.0 FL (6.5-10.1) 8.9 FL (6.5-10.1) Neutrophils (%) (Auto) 56.9 % (45.0-75.0) 65.5 % (45.0-75.0) Lymphocytes (%) (Auto) 31.7 % (20.0-45.0) 27.9 % (20.0-45.0) Monocytes (%) (Auto) 6.9 % (1.0-10.0) 4.6 % (1.0-10.0) Eosinophils (%) (Auto) 3.7 % (0.0-3.0) 1.5 % (0.0-3.0) Basophils (%) (Auto) 0.8 % (0.0-2.0) 0.5 % (0.0-2.0) cr - 0.6 Current Medications Medications (Trade) Dose Ordered Sig/Pineda Route PRN Reason Start Time Stop Time Status Last Admin Dose Admin Acetaminophen (Tylenol) 650 mg Q4H PRN ORAL Mild Pain (Pain Scale 1-3) 05/05/16 17:00 06/04/16 16:59 05/13/16 08:48 Acetaminophen (Tylenol) 650 mg Q4H PRN ORAL fever 05/05/16 17:00 06/04/16 16:59 Al Hydroxide/Mg Hydroxide (Mylanta II) 30 ml Q4H PRN ORAL dyspepsia 05/05/16 17:00 06/04/16 16:59 Cetylpyridinium Chloride (Cepacol) 1 lozenge Q2H PRN MICHAEL For Pain 05/15/16 07:00 06/14/16 06:59 05/17/16 00:39 Dextrose (Dextrose 50%) STAT PRN IV Hypoglycemia 05/05/16 17:00 06/04/16 16:59 Diphenhydramine HCl (Benadryl) 25 mg Q3H PRN IVP Itching 05/05/16 17:00 06/04/16 16:59 05/17/16 13:21 Heparin Sodium (Porcine) (Heparin 5000 units/ml) 5,000 units EVERY 12 HOURS SUBQ 05/05/16 21:00 06/04/16 20:59 05/16/16 21:12 Hydromorphone HCl (Dilaudid) 2 mg Q3H PRN IVP For Pain 05/12/16 19:00 05/19/16 18:59 05/17/16 13:22 Magnesium Hydroxide (Mom) 30 ml HSPRN PRN ORAL Constipation 05/05/16 17:00 06/04/16 16:59 Meropenem 1 gm/ Sodium Chloride 55 ml @ 110 mls/hr Q8HR IVPB 05/14/16 14:00 05/19/16 13:59 05/17/16 13:22 Metoprolol Succinate 25 mg 25 mg DAILY ORAL 05/13/16 09:00 06/12/16 08:59 05/16/16 09:54 Ondansetron HCl (Zofran) 4 mg Q6H PRN IVP Nausea & Vomiting 05/05/16 17:00 06/04/16 16:59 05/14/16 09:11 Oxycodone HCl (OxyCONTIN) 20 mg Q12HR ORAL 05/13/16 09:00 05/20/16 08:59 05/16/16 09:53 Pantoprazole (Protonix) 40 mg DAILY ORAL 05/06/16 09:00 06/05/16 08:59 05/16/16 09:52 Tigecycline/ Dextrose (Tygacil/D5W) 110 ml @ 220 mls/hr EVERY 12 HOURS IVPB 05/14/16 21:00 05/21/16 20:59 05/17/16 11:35 Zolpidem Tartrate (Ambien) 5 mg HSPRN PRN ORAL Insomnia 05/05/16 17:00 06/04/16 16:59 GRZEGORZ MARTINEZ May 17, 2016 14:58
[2016-05-17 16:00] VITALS: BP 103/61
--- NOTE | 2016-05-17 18:14 | Consultation ---
History of Present Illness General Date patient seen: May 17, 2016 Time patient seen: 18:06 Chief Complaint: Nausea, Vomiting, and Diarrhea Reason for Consultation: Pressure ulcers Present Illness HPI Patient well known to me from outpatient wound center. She was last seen by me 2 weeks ago at [facility] [place] for chronic stage 4 pressure ulcers of the posterior thighs and sacrum. She was d/c'd home but then readmitted shortly thereafter with FTT and N/V. She has had progressive worsening of her sacral ulcer and has osteomyelitis. Dr. Guti[facility]rez [facility] is treating this. She states her N/V has improved and she is beginning to feel better. Allergies: Coded Allergies: CEFTRIAXONE (Verified Allergy, Intermediate, SOB, HR-140bpm, face swollen , pt became red, 10/24/15) CODEINE (Verified Allergy, Intermediate, SWELLING, 01/03/11) LATEX (Verified Allergy, Intermediate, SWELLING, 01/03/11) PIPERACILLIN (Verified Allergy, Intermediate, Itching, 08/29/15) 08/29/15 tolerates Ceftaroline TAZOBACTAM (Verified Allergy, Intermediate, Itching, 01/29/15) POLYMYXIN B (Verified Allergy, Mild, Rash, 04/08/16) Suspected allergy reported by MD VANCOMYCIN (Verified Allergy, Mild, 07/15/14) ASPARAGINASE (Verified Allergy, Unknown, 01/28/14) CEFUROXIME (Unverified Allergy, Unknown, 04/19/16) IRON (Verified Allergy, Unknown, 01/28/14) Medication History Scheduled Amikacin Sulfate (Amikin), 850 MG IVPB DAILY, (Reported) Heparin Sodium,Porcine/Ns/Pf (Heparin), 5,000 UNIT SQ EVERY 12 HOURS, (Reported) Meropenem (Meropenem), 1 GM IV EVERY 8 HOURS, (Reported) Meropenem (Merrem), 1 GM IVPB Q8HR, (Reported) Pantoprazole* (Protonix*), 40 MG ORAL DAILY, (Reported) Scheduled PRN Acetaminophen (Acetaminophen), 650 MG ORAL Q4HR PRN for Fever/Headache/Mild Pain , (Reported) Al Hydroxide/mg Hydroxide (Mag-Al Plus Suspension), 30 ML ORAL Q4HR PRN for dyspepsia, (Reported) Diphenhydramine Hcl* (Diphenhydramine Hcl*), 25 MG IVP Q3HR PRN for Itching, ( Reported) Hydromorphone HCl (Dilaudid), 2 MG IVP Q3HR PRN for Severe Pain (Pain Scale 7-10 ), (Reported) Magnesium Hydroxide* (Milk Of Magnesia*), 30 ML ORAL HS PRN for Constipation, ( Reported) Ondansetron* (Zofran*), 4 MG IV Q6HR PRN for Nausea & Vomiting, (Reported) Zolpidem Tartrate* (Ambien*), 5 MG ORAL BEDTIME PRN for insomnia, (Reported) Miscellaneous Medications Unable to Obtain Medications (Unable To Obtain Meds), (Reported) Patient History Healthcare decision maker pt oriented Resuscitation status Advanced Directive on File Review of Systems Constitutional: Reports: weakness Eye: Reports: no symptoms ENT: Reports: no symptoms Respiratory: Reports: no symptoms Gastrointestinal: Reports: no symptoms Skin: Reports: see HPI Physical Exam General Appearance: no apparent distress, alert Lines, tubes and drains: PICC Skin Exam: other - Sacral ulcer is stage 4 with sacrum visible in midline. Undermining circumferentially. No slough and no odor. Periskin is irritated but no warmth or crepitus. Thigh ulcers are improved with clean base. No signs of infection. Last 24 Hour Vital Signs Date Time Temp Pulse Resp B/P Pulse Ox O2 Delivery O2 Flow Rate FiO2 05/17/16 16:00 110 05/17/16 16:00 97.3 101 20 103/61 97 Room Air 05/17/16 12:31 98 05/17/16 11:43 97.7 99 18 99/64 96 Room Air 05/17/16 08:08 97.3 100 20 103/67 97 Room Air 05/17/16 08:00 98 05/17/16 04:00 100 05/17/16 04:00 96.3 100 20 100/60 97 Room Air 05/17/16 01:15 97.9 05/17/16 00:00 96.8 110 20 127/74 97 Room Air 05/17/16 00:00 103 05/16/16 20:00 98.2 101 20 121/69 96 Room Air 05/16/16 20:00 101 Intake and Output 05/16/16 05/17/16 19:00 07:00 Intake Total 785 ml Balance 785 ml Intake Oral 620 ml IV Total 165 ml # Voids 1 # Bowel Movements 2 Height (Feet): 5 Height (Inches): 5.00 Weight (Pounds): 210 Medications Current Medications Medications (Trade) Dose Ordered Sig/Pineda Route PRN Reason Start Time Stop Time Status Last Admin Dose Admin Acetaminophen (Tylenol) 650 mg Q4H PRN ORAL Mild Pain (Pain Scale 1-3) 05/05/16 17:00 06/04/16 16:59 05/13/16 08:48 Acetaminophen (Tylenol) 650 mg Q4H PRN ORAL fever 05/05/16 17:00 06/04/16 16:59 Al Hydroxide/Mg Hydroxide (Mylanta II) 30 ml Q4H PRN ORAL dyspepsia 05/05/16 17:00 06/04/16 16:59 Cetylpyridinium Chloride 1 lozenge 1 lozenge Q2H PRN MICHAEL For Pain 05/15/16 07:00 06/14/16 06:59 05/17/16 00:39 Dextrose (Dextrose 50%) STAT PRN IV Hypoglycemia 05/05/16 17:00 06/04/16 16:59 Diphenhydramine HCl (Benadryl) 25 mg Q3H PRN IVP Itching 05/05/16 17:00 06/04/16 16:59 05/17/16 16:37 Heparin Sodium (Porcine) (Heparin 5000 units/ml) 5,000 units EVERY 12 HOURS SUBQ 05/05/16 21:00 06/04/16 20:59 05/16/16 21:12 Hydromorphone HCl (Dilaudid) 2 mg Q3H PRN IVP For Pain 05/12/16 19:00 05/19/16 18:59 05/17/16 16:38 Magnesium Hydroxide (Mom) 30 ml HSPRN PRN ORAL Constipation 05/05/16 17:00 06/04/16 16:59 Meropenem 1 gm/ Sodium Chloride 55 ml @ 110 mls/hr Q8HR IVPB 05/17/16 22:00 05/22/16 21:59 Metoprolol Succinate (Toprol XL) 25 mg DAILY ORAL 05/13/16 09:00 06/12/16 08:59 05/16/16 09:54 Ondansetron HCl (Zofran) 4 mg Q6H PRN IVP Nausea & Vomiting 05/05/16 17:00 06/04/16 16:59 05/14/16 09:11 Oxycodone HCl (OxyCONTIN) 20 mg Q12HR ORAL 05/13/16 09:00 05/20/16 08:59 05/16/16 09:53 Pantoprazole (Protonix) 40 mg DAILY ORAL 05/06/16 09:00 06/05/16 08:59 05/16/16 09:52 Tigecycline/ Dextrose (Tygacil/D5W) 110 ml @ 220 mls/hr EVERY 12 HOURS IVPB 05/17/16 21:00 05/24/16 20:59 Zolpidem Tartrate (Ambien) 5 mg HSPRN PRN ORAL Insomnia 05/05/16 17:00 06/04/16 16:59 Assessment/Plan Status: stable Assessment/Plan Overall patient is stable. Here sacral ulcer is large and needs to be treated with buttermaker continuous churn antibiotics. She may eventually be transitioned to negative pressure therapy to this but it is too soon and the periskin will not do well with the adhesive drape. She needs to be aggressively off loaded onto her sides more often as her hip dislocations transfers much of the pressure onto her sacrum when she is sitting. No need for emergent surgical intervention at this juncture. LEEANNA CORONA May 17, 2016 18:14
[2016-05-17 19:00] VITALS: BP 120/68
[2016-05-18] VITALS: BP 103/67
[2016-05-18] MEDS: DiphenhydrAMINE 50mg/ml Inj IVP PRN ×5 (00:26→17:03)
--- NOTE | 2016-05-18 02:19 | Progress Note ---
DATE: 05/17/2016 CARDIOLOGY PROGRESS NOTE SUBJECTIVE: The patient continues on pain control measures. Intravenous fluids are adjusted and transfusions have been given as needed based on hemoglobin level. She continues with [id number] wound care and is dependent on pain control for these interventions. OBJECTIVE: VITAL SIGNS: Blood pressure 103/67, pulse 98 to 110, respirations 20, and afebrile. NECK: Supple. LUNGS: Clear. CARDIAC: Regular rhythm. Rapid rate. Normal S1 and S2 with no murmur. ABDOMEN: Soft. EXTREMITIES: Dependent edema is noted. PLAN: 1. To recheck laboratory studies. 2. Continue pain control based on objective findings. 3. Transfuse for hemoglobin less than 8 g. 4. Vitamin supplementations. 5. Antibiotics. 6. Wound care. 7. Low dose beta-bob with titration. Karthik Parra M.D. DR: FELICITA JOB#: [id number] CC:
[2016-05-18 04:00] VITALS: BP 97/63
[2016-05-18] MEDS: Meropenem 1 GM in NS 55 ML IVPB SCH ×3 (05:26→22:19)
[2016-05-18 07:55] VITALS: BP 99/57
[2016-05-18 08:24] LABS: BASOPHILS % (AUTO) 0.5 % (0.0-2.0); EOSINOPHILS % (AUTO) 4.2 % (0.0-3.0); LYMPHOCYTES % (AUTO) 31.9 % (20.0-45.0); MEAN CORPUSCULAR HEMOGLOBIN 27.3 PG (27.0-31.0); MEAN CORPUSCULAR HGB CONC 32.1 G/DL (32.0-36.0); MEAN CORPUSCULAR VOLUME 85 FL (80-99); MEAN PLATELET VOLUME 8.8 FL (6.5-10.1); MONOCYTES % (AUTO) 6.4 % (1.0-10.0); NEUTROPHILS % (AUTO) 57.1 % (45.0-75.0); PLATELET COUNT 403 K/UL (150-450); RED CELL DISTRIBUTION WIDTH 17.8 % (11.6-14.8); WHITE BLOOD COUNT 7.9 K/UL (4.8-10.8)
[2016-05-18 08:34] LABS: ALBUMIN/GLOBULIN RATIO 0.4 (1.0-2.7); ANION GAP 12 (5-15); ASPARTATE AMINO TRANSFERASE 10 U/L (5-40); CALCIUM 7.1 mg/dL (8.6-10.2); CARBON DIOXIDE 25 mEQ/L (20-30); CHLORIDE 101 mEQ/L (98-107); CREATININE 0.4 mg/dL (0.5-0.9); GLOMERULAR FILTRATION RATE > 60 mL/min (>60); HEMOLYSIS 2; SODIUM 138 mEQ/L (135-145); TOTAL PROTEIN 5.6 g/dL (6.6-8.7)
[2016-05-18 08:35] LABS: ALANINE AMINOTRANSFERASE 5 U/L (3-33)
--- NOTE | 2016-05-18 09:14 | General Progress Note ---
Assessment/Plan Assessment/Plan (1) Paraplegia (2) Spinal cord injury (3) Lumbar spine osteomyelitis discitis (4) Sacral decubitus ulcer (5) Intractable pain Pt will be continued on OxyContin and Dilaudid. Pt was d/w Dr. Avina and he concurred. Subjective Date patient seen: May 18, 2016 Time patient seen: 07:30 - am Allergies: Coded Allergies: CEFTRIAXONE (Verified Allergy, Intermediate, SOB, HR-140bpm, face swollen , pt became red, 10/24/15) CODEINE (Verified Allergy, Intermediate, SWELLING, 01/03/11) LATEX (Verified Allergy, Intermediate, SWELLING, 01/03/11) PIPERACILLIN (Verified Allergy, Intermediate, Itching, 08/29/15) 08/29/15 tolerates Ceftaroline TAZOBACTAM (Verified Allergy, Intermediate, Itching, 01/29/15) POLYMYXIN B (Verified Allergy, Mild, Rash, 04/08/16) Suspected allergy reported by MD VANCOMYCIN (Verified Allergy, Mild, 07/15/14) ASPARAGINASE (Verified Allergy, Unknown, 01/28/14) CEFUROXIME (Unverified Allergy, Unknown, 04/19/16) IRON (Verified Allergy, Unknown, 01/28/14) Subjective Constitutional: Reports: weakness, Denies: chills, diaphoresis, fever, malaise HEENT: Denies: blurred vision, double vision, ear discharge, ear pain, eye pain , mouth pain, mouth swelling, nose congestion, nose pain, tearing, throat pain, throat swelling Cardiovascular: Denies: chest pain, edema, irregular heart rate, lightheadedness, palpitations, syncope Respiratory: Denies: SOB at rest, SOB with excertion, cough, orthopnea, shortness of breath, sputum, stridor, wheezing Gastrointestinal/Abdominal: Reports: poor appetite, Denies: abdomen distended, abdominal pain, black stools, blood in stool, constipated, diarrhea, difficulty swallowing, nausea, poor fluid intake, rectal bleeding, tarry stools, vomiting Genitourinary: Denies: burning, discharge, flank pain, frequency, hematuria, incontinence, pain, urgency 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: Reports: depressed, paresthesia, weakness, Denies: anxiety, emotional problems, headache, numbness, pre-existing deficit, seizure, tingling, tremors Endocrine: Denies: excessive sweating, flushing, increased hunger, increased thirst, increased urine, intolerance to cold, intolerance to heat, unexplained weight gain, unexplained weight loss Hematologic/Lymphatic: Reports: anemia, Denies: easy bleeding, easy bruising Subjective: She has no new complaints and her pain is stable on the medications. Objective Last 24 Hour Vital Signs Date Time Temp Pulse Resp B/P Pulse Ox O2 Delivery O2 Flow Rate FiO2 05/18/16 07:55 97.5 100 18 99/57 96 Room Air 05/18/16 04:00 97.7 103 16 97/63 97 Room Air 05/18/16 00:00 107 05/18/16 00:00 97.3 115 18 103/67 98 Room Air 05/17/16 19:00 98.1 76 20 120/68 98 Room Air 05/17/16 16:00 110 05/17/16 16:00 97.3 101 20 103/61 97 Room Air 05/17/16 12:31 98 05/17/16 11:43 97.7 99 18 99/64 96 Room Air Intake and Output 05/17/16 05/18/16 19:00 07:00 Intake Total 165 ml 810 ml Balance 165 ml 810 ml Intake Oral 480 ml IV Total 165 ml 330 ml # Voids 1 3 Laboratory Tests 05/18/16 08:05: White Blood Count 7.9, Red Blood Count 3.40L, Hemoglobin 9.3L, Hematocrit 29.0L , Mean Corpuscular Volume 85, Mean Corpuscular Hemoglobin 27.3, Mean Corpuscular Hemoglobin Concent 32.1, Red Cell Distribution Width 17.8H, Platelet Count 403, Mean Platelet Volume 8.8, Neutrophils (%) (Auto) 57.1, Lymphocytes (%) (Auto) 31.9, Monocytes (%) (Auto) 6.4, Eosinophils (%) (Auto) 4.2H, Basophils (%) (Auto) 0.5, Sodium Level 138, Potassium Level 4.0, Chloride Level 101, Carbon Dioxide Level 25, Anion Gap 12, Blood Urea Nitrogen 12, Creatinine 0.4L, Estimat Glomerular Filtration Rate > 60, Glucose Level 68L, Calcium Level 7.1L, Magnesium Level 1.6L, Total Bilirubin 0.5, Aspartate Amino Transf (AST/SGOT) 10, Alanine Aminotransferase (ALT/SGPT) 5, Alkaline Phosphatase 165H, Total Protein 5.6L, Albumin 1.6L, Globulin 4.0, Albumin/ Globulin Ratio 0.4L Height (Feet): 5 Height (Inches): 5.00 Weight (Pounds): 210 Objective General Appearance: no apparent distress, alert EENT: PERRL/EOMI, normal ENT inspection Neck: non-tender, normal alignment Cardiovascular: normal rate, regular rhythm Respiratory/Chest: chest wall non-tender, decreased breath sounds Abdomen: non tender, soft Extremities: swelling Edema: mild edema Neurologic: alert, oriented x 3 SETH RODRIGUES PRene May 18, 2016 09:14
--- NOTE | 2016-05-18 09:22 | General Progress Note ---
Assessment/Plan Problem List: (1) Tachycardia ICD Codes: R00.0 - Tachycardia, unspecified SNOMED: 2916552 (2) Anemia ICD Codes: D64.9 - Anemia, unspecified SNOMED: 325148809 Qualifiers: Qualified Codes: D50.0 - Iron deficiency anemia secondary to blood loss ( chronic) (3) Opiate dependence ICD Codes: F11.20 - Opioid dependence, uncomplicated SNOMED: 40641586 (4) Dehydration ICD Codes: E86.0 - Dehydration SNOMED: 07070462 (5) Intractable pain ICD Codes: R52 - Pain, unspecified; R19.7 - Diarrhea, unspecified SNOMED: 94522371 Status: stable, progressing Assessment/Plan monitor h/h transfuse as neededrate control pain control check labs iv abx per id pain rx dc planning Subjective ROS Limited/Unobtainable: No Constitutional: Reports: malaise, weakness HEENT: Reports: no symptoms Cardiovascular: Reports: no symptoms Respiratory: Reports: no symptoms Gastrointestinal/Abdominal: Reports: no symptoms Genitourinary: Reports: no symptoms 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: Reports: pre-existing deficit Endocrine: Reports: no symptoms Hematologic/Lymphatic: Reports: anemia Allergies: Coded Allergies: CEFTRIAXONE (Verified Allergy, Intermediate, SOB, HR-140bpm, face swollen , pt became red, 10/24/15) CODEINE (Verified Allergy, Intermediate, SWELLING, 01/03/11) LATEX (Verified Allergy, Intermediate, SWELLING, 01/03/11) PIPERACILLIN (Verified Allergy, Intermediate, Itching, 08/29/15) 08/29/15 tolerates Ceftaroline TAZOBACTAM (Verified Allergy, Intermediate, Itching, 01/29/15) POLYMYXIN B (Verified Allergy, Mild, Rash, 04/08/16) Suspected allergy reported by VANCOMYCIN (Verified Allergy, Mild, 07/15/14) ASPARAGINASE (Verified Allergy, Unknown, 01/28/14) CEFUROXIME (Unverified Allergy, Unknown, 04/19/16) IRON (Verified Allergy, Unknown, 01/28/14) All Systems: reviewed and negative except above Subjective weak. c/o generalized pain and palpitations. sinus tach better. picc line now working after declotting. on multiple abx. Objective Last 24 Hour Vital Signs Date Time Temp Pulse Resp B/P Pulse Ox O2 Delivery O2 Flow Rate FiO2 2/7/17 07:55 97.5 100 18 99/57 96 Room Air 05/18/16 04:00 97.7 103 16 97/63 97 Room Air 05/18/16 00:00 107 05/18/16 00:00 97.3 115 18 103/67 98 Room Air 05/17/16 19:00 98.1 76 20 120/68 98 Room Air 05/17/16 16:00 110 05/17/16 16:00 97.3 101 20 103/61 97 Room Air 05/17/16 12:31 98 05/17/16 11:43 97.7 99 18 99/64 96 Room Air Intake and Output 05/17/16 05/18/16 19:00 07:00 Intake Total 165 ml 810 ml Balance 165 ml 810 ml Intake Oral 480 ml IV Total 165 ml 330 ml # Voids 1 3 Laboratory Tests 05/18/16 08:05: White Blood Count 7.9, Red Blood Count 3.40L, Hemoglobin 9.3L, Hematocrit 29.0L , Mean Corpuscular Volume 85, Mean Corpuscular Hemoglobin 27.3, Mean Corpuscular Hemoglobin Concent 32.1, Red Cell Distribution Width 17.8H, Platelet Count 403, Mean Platelet Volume 8.8, Neutrophils (%) (Auto) 57.1, Lymphocytes (%) (Auto) 31.9, Monocytes (%) (Auto) 6.4, Eosinophils (%) (Auto) 4.2H, Basophils (%) (Auto) 0.5, Sodium Level 138, Potassium Level 4.0, Chloride Level 101, Carbon Dioxide Level 25, Anion Gap 12, Blood Urea Nitrogen 12, Creatinine 0.4L, Estimat Glomerular Filtration Rate > 60, Glucose Level 68L, Calcium Level 7.1L, Magnesium Level 1.6L, Total Bilirubin 0.5, Aspartate Amino Transf (AST/SGOT) 10, Alanine Aminotransferase (ALT/SGPT) 5, Alkaline Phosphatase 165H, Total Protein 5.6L, Albumin 1.6L, Globulin 4.0, Albumin/ Globulin Ratio 0.4L Height (Feet): 5 Height (Inches): 5.00 Weight (Pounds): 210 Objective General Appearance: WD/WN, alert Neck: supple Cardiovascular: normal rate, tachycardia - low 100s Respiratory/Chest: lungs clear Abdomen: normal bowel sounds, non tender, soft, no organomegaly Edema: no edema noted Arm (L), no edema noted Arm (R), no edema noted Leg (L), no edema noted Leg (R), no edema noted Pedal (L), no edema noted Pedal (R), no edema noted Generalized Neurologic: paraplgeic BONG BRUNNER May 18, 2016 09:22
[2016-05-18] MEDS: Heparin 5000 units/ml inj SUBQ SCH ×2 (09:49→21:00)
[2016-05-18] MEDS: Tigecycline 50 MG in D5W 110 ML IVPB SCH ×2 (09:49→23:15)
[2016-05-18] MEDS: oxyCONTIN 20mg tab ORAL SCH ×2 (10:00→21:00)
[2016-05-18 11:54] VITALS: BP 106/62
[2016-05-18] MEDS ORDERED: NS 275ml ONE (15:07)
[2016-05-18] MEDS ORDERED: Tubing IV Secondary IV ONE (15:07)
[2016-05-18 16:00] VITALS: BP 137/77
[2016-05-18 20:00] VITALS: BP 130/64
[2016-05-19] VITALS: BP 100/64
[2016-05-19] MEDS: DiphenhydrAMINE 50mg/ml Inj IVP PRN ×5 (00:53→17:12)
--- NOTE | 2016-05-19 02:57 | Progress Note ---
DATE: 05/18/2016 CARDIOLOGY PROGRESS NOTE SUBJECTIVE: The patient is without any new complaints. She continues to have episodes of rapid heart rate. She is without any chest pain, palpitations, or shortness of breath. OBJECTIVE: VITAL SIGNS: Afebrile, blood pressure of 99/57, pulse 100, and respirations 18. Wound sites are dressed. LUNGS: Clear. CARDIAC: Regular rhythm. Rapid rate. Normal S1 and S2 with no murmur. ABDOMEN: Soft. EXTREMITIES: With trace edema. LABORATORY DATA: White count 7.9 and hemoglobin 9.3. Potassium is 4. Magnesium 1.6. Albumin 1.6. IMPRESSION: 1. Secondary sinus tachycardia. 2. Hypokalemia. 3. Hypomagnesemia. 4. Acute and chronic pain. 5. Multiple wounds with associated infection. 6. Anemia of chronic disease. PLAN: 1. Intravenous magnesium. 2. Oral potassium as needed. 3. Wound care. 4. Antibiotics. 5. Pain control. 6. Transfuse packed cells for hemoglobin less than 8. 7. DVT and stress ulcer prophylaxes. 8. Continue low-dose beta-bob, titrate in the future based on clinical parameter. Karthik Parra M.D. DR: MAGNO JOB#: [id number] CC:
[2016-05-19 04:00] VITALS: BP 103/56
[2016-05-19] MEDS: Meropenem 1 GM in NS 55 ML IVPB SCH ×2 (05:36→13:31)
--- NOTE | 2016-05-19 07:52 | General Progress Note ---
Assessment/Plan Assessment/Plan IMPRESSION: Osteomyelitis, recurrent wound infection with polymicrobial organisms, Discitis, multiple allergies, history dehydration, history of nausea and vomiting, chronic pain syndrome, chronic opiate dependent, diabetes, anemia, prior history of transfusion. bacteremia MDR, tachycardia PLAN beta bob with good control 19 more days of meropenem PICC care finalize care SNF discharge wound care and follow up after discharge pain control not a surgical candidate defer to plastics and ID impression, plan, and exam edited and reviewed in detail care discussed with RN Subjective Allergies: Coded Allergies: CEFTRIAXONE (Verified Allergy, Intermediate, SOB, HR-140bpm, face swollen , pt became red, 10/24/15) CODEINE (Verified Allergy, Intermediate, SWELLING, 01/03/11) LATEX (Verified Allergy, Intermediate, SWELLING, 01/03/11) PIPERACILLIN (Verified Allergy, Intermediate, Itching, 08/29/15) 08/29/15 tolerates Ceftaroline TAZOBACTAM (Verified Allergy, Intermediate, Itching, 01/29/15) POLYMYXIN B (Verified Allergy, Mild, Rash, 04/08/16) Suspected allergy reported by VANCOMYCIN (Verified Allergy, Mild, 07/15/14) ASPARAGINASE (Verified Allergy, Unknown, 01/28/14) CEFUROXIME (Unverified Allergy, Unknown, 04/19/16) IRON (Verified Allergy, Unknown, 01/28/14) Subjective events noted past 5 days hemodynamics better on beta bob on antibiotics Objective Last 24 Hour Vital Signs Date Time Temp Pulse Resp B/P Pulse Ox O2 Delivery O2 Flow Rate FiO2 05/19/16 04:00 97.8 100 20 103/56 98 Room Air 05/19/16 03:28 99 05/19/16 00:00 97.7 113 20 100/64 100 Room Air 05/18/16 20:00 110 20 130/64 96 Room Air 05/18/16 20:00 104 05/18/16 16:00 105 05/18/16 16:00 111 20 137/77 99 Room Air 05/18/16 13:22 97.7 05/18/16 12:00 94 05/18/16 11:54 97.7 95 18 106/62 95 Room Air 05/18/16 08:00 98 05/18/16 07:55 97.5 100 18 99/57 96 Room Air Intake and Output 05/18/16 05/19/16 19:00 07:00 Intake Total 230 ml 55 ml Output Total 300 ml Balance 230 ml -245 ml Intake Oral 120 ml IV Total 110 ml 55 ml Stool Total 300 ml # Voids 1 2 Laboratory Tests 05/18/16 08:05: White Blood Count 7.9, Red Blood Count 3.40L, Hemoglobin 9.3L, Hematocrit 29.0L , Mean Corpuscular Volume 85, Mean Corpuscular Hemoglobin 27.3, Mean Corpuscular Hemoglobin Concent 32.1, Red Cell Distribution Width 17.8H, Platelet Count 403, Mean Platelet Volume 8.8, Neutrophils (%) (Auto) 57.1, Lymphocytes (%) (Auto) 31.9, Monocytes (%) (Auto) 6.4, Eosinophils (%) (Auto) 4.2H, Basophils (%) (Auto) 0.5, Sodium Level 138, Potassium Level 4.0, Chloride Level 101, Carbon Dioxide Level 25, Anion Gap 12, Blood Urea Nitrogen 12, Creatinine 0.4L, Estimat Glomerular Filtration Rate > 60, Glucose Level 68L, Calcium Level 7.1L, Magnesium Level 1.6L, Total Bilirubin 0.5, Aspartate Amino Transf (AST/SGOT) 10, Alanine Aminotransferase (ALT/SGPT) 5, Alkaline Phosphatase 165H, Total Protein 5.6L, Albumin 1.6L, Globulin 4.0, Albumin/ Globulin Ratio 0.4L Height (Feet): 5 Height (Inches): 5.00 Weight (Pounds): 210 Objective GENERAL: A well-developed female, comfortable, chronically ill. HEENT: Negative. NECK: Supple. No adenopathy. Carotids 2+. LUNGS: Clear. No rhonchi or wheezes. stable CARDIAC: S1 and S2. RRR without murmurs, rubs, or gallops. ABDOMEN: Soft, obese, nontender. no drainage noted EXTREMITIES: paraplegia. Minimal edema on the lower extremities. no CC NEUROLOGIC: As noted above. SKIN: Noted. LUANN MICHEL May 19, 2016 07:52
--- NOTE | 2016-05-19 08:04 | General Progress Note ---
Assessment/Plan Assessment/Plan (1) Paraplegia (2) Spinal cord injury (3) Lumbar spine osteomyelitis discitis (4) Sacral decubitus ulcer (5) Intractable pain Pt will be continued on OxyContin and Dilaudid. Pt was d/w Dr. Avina and he concurred. Subjective Date patient seen: May 19, 2016 Time patient seen: 07:00 - am Allergies: Coded Allergies: CEFTRIAXONE (Verified Allergy, Intermediate, SOB, HR-140bpm, face swollen , pt became red, 10/24/15) CODEINE (Verified Allergy, Intermediate, SWELLING, 01/03/11) LATEX (Verified Allergy, Intermediate, SWELLING, 01/03/11) PIPERACILLIN (Verified Allergy, Intermediate, Itching, 08/29/15) 08/29/15 tolerates Ceftaroline TAZOBACTAM (Verified Allergy, Intermediate, Itching, 01/29/15) POLYMYXIN B (Verified Allergy, Mild, Rash, 04/08/16) Suspected allergy reported by MD VANCOMYCIN (Verified Allergy, Mild, 07/15/14) ASPARAGINASE (Verified Allergy, Unknown, 01/28/14) CEFUROXIME (Unverified Allergy, Unknown, 04/19/16) IRON (Verified Allergy, Unknown, 01/28/14) Subjective Constitutional: Reports: weakness, Denies: chills, diaphoresis, fever, malaise HEENT: Denies: blurred vision, double vision, ear discharge, ear pain, eye pain , mouth pain, mouth swelling, nose congestion, nose pain, tearing, throat pain, throat swelling Cardiovascular: Denies: chest pain, edema, irregular heart rate, lightheadedness, palpitations, syncope Respiratory: Denies: SOB at rest, SOB with excertion, cough, orthopnea, shortness of breath, sputum, stridor, wheezing Gastrointestinal/Abdominal: Reports: poor appetite, Denies: abdomen distended, abdominal pain, black stools, blood in stool, constipated, diarrhea, difficulty swallowing, nausea, poor fluid intake, rectal bleeding, tarry stools, vomiting Genitourinary: Denies: burning, discharge, flank pain, frequency, hematuria, incontinence, pain, urgency 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: Reports: depressed, paresthesia, weakness, Denies: anxiety, emotional problems, headache, numbness, pre-existing deficit, seizure, tingling, tremors Endocrine: Denies: excessive sweating, flushing, increased hunger, increased thirst, increased urine, intolerance to cold, intolerance to heat, unexplained weight gain, unexplained weight loss Hematologic/Lymphatic: Reports: anemia, Denies: easy bleeding, easy bruising Subjective: Pain has been unchanged and is tolerated on the medications. Objective Last 24 Hour Vital Signs Date Time Temp Pulse Resp B/P Pulse Ox O2 Delivery O2 Flow Rate FiO2 05/19/16 04:00 97.8 100 20 103/56 98 Room Air 05/19/16 03:28 99 05/19/16 00:00 97.7 113 20 100/64 100 Room Air 05/18/16 20:00 110 20 130/64 96 Room Air 05/18/16 20:00 104 05/18/16 16:00 105 05/18/16 16:00 111 20 137/77 99 Room Air 05/18/16 13:22 97.7 05/18/16 12:00 94 05/18/16 11:54 97.7 95 18 106/62 95 Room Air Intake and Output 05/18/16 05/19/16 18:59 06:59 Intake Total 230 ml 55 ml Output Total 300 ml Balance 230 ml -245 ml Intake Oral 120 ml IV Total 110 ml 55 ml Stool Total 300 ml # Voids 1 2 Laboratory Tests 05/18/16 08:05: White Blood Count 7.9, Red Blood Count 3.40L, Hemoglobin 9.3L, Hematocrit 29.0L , Mean Corpuscular Volume 85, Mean Corpuscular Hemoglobin 27.3, Mean Corpuscular Hemoglobin Concent 32.1, Red Cell Distribution Width 17.8H, Platelet Count 403, Mean Platelet Volume 8.8, Neutrophils (%) (Auto) 57.1, Lymphocytes (%) (Auto) 31.9, Monocytes (%) (Auto) 6.4, Eosinophils (%) (Auto) 4.2H, Basophils (%) (Auto) 0.5, Sodium Level 138, Potassium Level 4.0, Chloride Level 101, Carbon Dioxide Level 25, Anion Gap 12, Blood Urea Nitrogen 12, Creatinine 0.4L, Estimat Glomerular Filtration Rate > 60, Glucose Level 68L, Calcium Level 7.1L, Magnesium Level 1.6L, Total Bilirubin 0.5, Aspartate Amino Transf (AST/SGOT) 10, Alanine Aminotransferase (ALT/SGPT) 5, Alkaline Phosphatase 165H, Total Protein 5.6L, Albumin 1.6L, Globulin 4.0, Albumin/ Globulin Ratio 0.4L Height (Feet): 5 Height (Inches): 5.00 Weight (Pounds): 210 Objective General Appearance: no apparent distress, alert EENT: PERRL/EOMI, normal ENT inspection Neck: non-tender, normal alignment Cardiovascular: normal rate, regular rhythm Respiratory/Chest: chest wall non-tender, decreased breath sounds Abdomen: non tender, soft Extremities: swelling Edema: mild edema Neurologic: alert, oriented x 3 SETH RODRIGUES PRene May 19, 2016 08:04
[2016-05-19 08:26] VITALS: BP 96/64
[2016-05-19] MEDS: oxyCONTIN 20mg tab ORAL SCH (10:20)
[2016-05-19] MEDS: Heparin 5000 units/ml inj SUBQ SCH (10:21)
[2016-05-19 12:16] VITALS: BP 104/62
[2016-05-19] MEDS: Tigecycline 50 MG in D5W 110 ML IVPB SCH (12:42)
--- NOTE | 2016-05-19 12:49 | Infectious Diseases Prog Note ---
Assessment/Plan Assessment/Plan ASSESSMENT AND PLAN: 1. e.coli/morganella and klebsiella sacral wound infection, high suspicion for osteo, ct abdomen and pelvis with possible lumbar spine osteo/discitis - - culture from bone biopsy, could not find path to r/o osteo when I discussed this with pathology MD on last visit - watch labs, sed rate - wound treatment per plastic surgery and protocol - consider spine surgery evaluation for further recs about possible lumbar spine osteo/discitis and further imaging, w/u etc. - meropenem for 17 days to treat as osteo osteo for total of 6 weeks (may need to adjust abx depending on below bc results) - patient will need ecf 2. 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 tachycardia - w/u per primary, ct angio negative for pe, tachycardia improved 4. n/v improved, some cough, ct negative for pna 5. History of osteoarthritis and treatment. 6. Colostomy. 7. Paraplegia. 8. Anemia. 9. ? diabetes - patient denies dm hx, bs elevated only with infection per pt 10. Chronic pain management and chronic pain syndrome, anxiety 11. History of cholelithiasis. 12. Pain management for primary, opiate dependency 13. Multiple allergies to asparaginase, Rocephin, codeine, iron, Latex, piperacillin, tazobactam, and vancomycin. 14. wound care per protocol and plastic surgery 15. The case was discussed with RN 16. The case was discussed with the patient. 17. fh-nc, sh-negative, mar noted 18. notes and records reviewed 19. communicated with Dr. Healy 20. d/w patient and answered questions Subjective Constitutional: Denies: fever HEENT: Denies: congestion Respiratory: Denies: shortness of breath Cardiovascular: Denies: chest pain Gastrointestinal/Abdominal: Reports: other - + colostomy, Denies: nausea, vomiting Neurologic: Denies: headache Psychiatric: Denies: depression Skin: Reports: rash - rash stable Hematologic: Denies: bleeding Allergies: Coded Allergies: CEFTRIAXONE (Verified Allergy, Intermediate, SOB, HR-140bpm, face swollen , pt became red, 10/24/15) CODEINE (Verified Allergy, Intermediate, SWELLING, 01/03/11) LATEX (Verified Allergy, Intermediate, SWELLING, 01/03/11) PIPERACILLIN (Verified Allergy, Intermediate, Itching, 08/29/15) 08/29/15 tolerates Ceftaroline TAZOBACTAM (Verified Allergy, Intermediate, Itching, 01/29/15) POLYMYXIN B (Verified Allergy, Mild, Rash, 04/08/16) Suspected allergy reported by VANCOMYCIN (Verified Allergy, Mild, 07/15/14) ASPARAGINASE (Verified Allergy, Unknown, 01/28/14) CEFUROXIME (Unverified Allergy, Unknown, 04/19/16) IRON (Verified Allergy, Unknown, 01/28/14) Objective Vital Signs Last 24 Hour Vital Signs Date Time Temp Pulse Resp B/P Pulse Ox O2 Delivery O2 Flow Rate FiO2 05/19/16 12:16 98.1 101 20 104/62 96 Room Air 05/19/16 08:26 97.9 107 20 96/64 96 Room Air 05/19/16 08:00 106 05/19/16 04:00 97.8 100 20 103/56 98 Room Air 05/19/16 03:28 99 05/19/16 00:00 97.7 113 20 100/64 100 Room Air 05/18/16 20:00 110 20 130/64 96 Room Air 05/18/16 20:00 104 05/18/16 16:00 105 05/18/16 16:00 111 20 137/77 99 Room Air 05/18/16 13:22 97.7 Height (Feet): 5 Height (Inches): 5.00 Weight (Pounds): 210 General Appearance: no acute distress HEENT: normocephalic, atraumatic, anicteric, mucous membranes moist, PERRL, EOMI, pharynx normal, supple, no JVD Respiratory/Chest: chest wall non-tender, lungs clear, normal breath sounds, no respiratory distress, no accessory muscle use Cardiovascular: normal rate, regular rhythm, no gallop/murmur, no JVD Abdomen: normal bowel sounds, soft, non tender, no organomegaly, non distended Genitourinary: other - no bay Extremities: no cyanosis Skin: rash - stable rash 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 Complete 05/05/16 12:30 Rectum VRE Culture - Final NO VANCOMYCIN RESISTANT ENTEROCOCCUS ... Complete Labs Test 05/18/16 08:05 White Blood Count 7.9 K/UL (4.8-10.8) Red Blood Count 3.40 M/UL (4.20-5.40) Hemoglobin 9.3 G/DL (12.0-16.0) Hematocrit 29.0 % (37.0-47.0) Mean Corpuscular Volume 85 FL (80-99) Mean Corpuscular Hemoglobin 27.3 PG (27.0-31.0) Mean Corpuscular Hemoglobin Concent 32.1 G/DL (32.0-36.0) Red Cell Distribution Width 17.8 % (11.6-14.8) Platelet Count 403 K/UL (150-450) Mean Platelet Volume 8.8 FL (6.5-10.1) Neutrophils (%) (Auto) 57.1 % (45.0-75.0) Lymphocytes (%) (Auto) 31.9 % (20.0-45.0) Monocytes (%) (Auto) 6.4 % (1.0-10.0) Eosinophils (%) (Auto) 4.2 % (0.0-3.0) Basophils (%) (Auto) 0.5 % (0.0-2.0) Sodium Level 138 mEQ/L (135-145) Potassium Level 4.0 mEQ/L (3.4-4.9) Chloride Level 101 mEQ/L (98-107) Carbon Dioxide Level 25 mEQ/L (20-30) Anion Gap 12 (5-15) Blood Urea Nitrogen 12 mg/dL (7-23) Creatinine 0.4 mg/dL (0.5-0.9) Estimat Glomerular Filtration Rate > 60 mL/min (>60) Glucose Level 68 mg/dL (74-106) Calcium Level 7.1 mg/dL (8.6-10.2) Magnesium Level 1.6 mg/dL (1.7-2.5) Total Bilirubin 0.5 mg/dL (0.0-1.2) Aspartate Amino Transf (AST/SGOT) 10 U/L (5-40) Alanine Aminotransferase (ALT/SGPT) 5 U/L (3-33) Alkaline Phosphatase 165 U/L (35-104) Total Protein 5.6 g/dL (6.6-8.7) Albumin 1.6 g/dL (3.5-5.2) Globulin 4.0 g/dL Albumin/Globulin Ratio 0.4 (1.0-2.7) Current Medications Medications (Trade) Dose Ordered Sig/Pineda Route PRN Reason Start Time Stop Time Status Last Admin Dose Admin Acetaminophen (Tylenol) 650 mg Q4H PRN ORAL Mild Pain (Pain Scale 1-3) 05/05/16 17:00 06/04/16 16:59 05/13/16 08:48 Acetaminophen (Tylenol) 650 mg Q4H PRN ORAL fever 05/05/16 17:00 06/04/16 16:59 Al Hydroxide/Mg Hydroxide (Mylanta II) 30 ml Q4H PRN ORAL dyspepsia 05/05/16 17:00 06/04/16 16:59 Cetylpyridinium Chloride 1 lozenge 1 lozenge Q2H PRN MICHAEL For Pain 05/15/16 07:00 06/14/16 06:59 05/18/16 22:25 Dextrose (Dextrose 50%) STAT PRN IV Hypoglycemia 05/05/16 17:00 06/04/16 16:59 Diphenhydramine HCl (Benadryl) 25 mg Q3H PRN IVP Itching 05/05/16 17:00 06/04/16 16:59 05/19/16 10:20 Heparin Sodium (Porcine) (Heparin 5000 units/ml) 5,000 units EVERY 12 HOURS SUBQ 05/05/16 21:00 06/04/16 20:59 05/16/16 21:12 Hydromorphone HCl (Dilaudid) 2 mg Q3H PRN IVP For Pain 05/18/16 10:00 05/25/16 09:59 05/19/16 10:20 Magnesium Hydroxide (Mom) 30 ml HSPRN PRN ORAL Constipation 05/05/16 17:00 06/04/16 16:59 Meropenem 1 gm/ Sodium Chloride 55 ml @ 110 mls/hr Q8HR IVPB 05/17/16 22:00 05/22/16 21:59 05/19/16 05:36 Metoprolol Succinate (Toprol XL) 25 mg DAILY ORAL 05/13/16 09:00 06/12/16 08:59 05/16/16 09:54 Ondansetron HCl (Zofran) 4 mg Q6H PRN IVP Nausea & Vomiting 05/05/16 17:00 06/04/16 16:59 05/18/16 12:52 Oxycodone HCl (OxyCONTIN) 20 mg Q12HR ORAL 05/18/16 10:00 05/25/16 09:59 Pantoprazole (Protonix) 40 mg DAILY ORAL 05/06/16 09:00 06/05/16 08:59 05/16/16 09:52 Tigecycline/ Dextrose (Tygacil/D5W) 110 ml @ 220 mls/hr EVERY 12 HOURS IVPB 05/17/16 21:00 05/24/16 20:59 05/19/16 12:42 Zolpidem Tartrate (Ambien) 5 mg HSPRN PRN ORAL Insomnia 05/05/16 17:00 06/04/16 16:59 GRZEGORZ MARTINEZ May 19, 2016 12:49
[2016-05-19 16:00] VITALS: BP 94/61
[2016-05-19] MEDS ORDERED: Tubing IV Secondary IV ONE (19:14)
[2016-05-19] MEDS ORDERED: NS 275ml ONE (19:14)
--- NOTE | 2016-05-20 02:17 | Progress Note ---
DATE: 05/19/2016 CARDIOLOGY PROGRESS NOTE SUBJECTIVE: The patient has controlled pain. OBJECTIVE: VITAL SIGNS: Blood pressure 103/56, heart rate 94 to 110, and respiratory rate 20. NECK: Supple. LUNGS: Clear. CARDIAC: Regular. Normal S1 and S2. ABDOMEN: Soft. No edema. IMPRESSION: 1. Polymicrobial sepsis due to multiple wound. 2. Anemia. 3. Acute and chronic pain. 4. Functional decline. 5. Protein-calorie malnutrition. 6. Secondary sinus tachycardia, improved with beta-bob. 7. Venous duplex and CT angiogram of the chest without any signs of DVT and pulmonary emboli respectively. PLAN: 1. Antibiotics. 2. Pain control. 3. Monitor hemoglobin. 4. DVT prophylaxis. 5. Titrate beta-blockers based on clinical parameters. Karthik Parra M.D. DR: MAGNO JOB#: [id number] CC:
--- NOTE | 2016-05-20 18:35 | Discharge Summary ---
Discharge Summary Hospital Course Date of Admission May 05, 2016 at 12:27 Date of Discharge May 19, 2016 at 19:15 Admitting Diagnosis weakness, vomiting HPI Ananya Guajardo is a 41 year old female who was admitted on May 05, 2016 at 12:27 for Weakness Vomiting Hospital Course [id number] Discharge Discharge Disposition Patient was discharged to SNF/Subacute Facility(03) Discharge Diagnoses: Verito Johnston NP May 20, 2016 18:35
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
[2016-06-01] MEDS ORDERED: Tigecycline 50 MG in D5W 110 ML IVPB SCH (21:00)
[2016-06-01] MEDS ORDERED: Meropenem 1 GM in NS 110 ML IVPB SCH (21:00)
== END 2016-05-19 19:15 | DRG 539 ==
LOC: ENRESERVDT → ENRESERV → ENRESERVTM → EDBD 11:36 → EMR 12:22 → 4E 12:27 → EDBEDREQ 14:53 → 4E 19:19 → 2E 05-10 22:46
PROC: 02HV33Z Insertion of Infusion Device into Superior Vena Cava, Percutaneous Approach (ICD-10-PCS; principal; 2016-05-10)
PROC: B548ZZA Ultrasonography of Superior Vena Cava, Guidance (ICD-10-PCS; principal; 2016-05-10)
DX: M46.26 Osteomyelitis of vertebra, lumbar region (principal); L89.154 Pressure ulcer of sacral region, stage 4; E43 Unspecified severe protein-calorie malnutrition; G82.20 Paraplegia, unspecified; R78.81 Bacteremia; F11.20 Opioid dependence, uncomplicated; E11.9 Type 2 diabetes mellitus without complications; D64.9 Anemia, unspecified; E86.0 Dehydration; Z93.3 Colostomy status; X93.XXXS Assault by handgun discharge, sequela; G89.29 Other chronic pain; M46.46 Discitis, unspecified, lumbar region; R00.0 Tachycardia, unspecified; E87.6 Hypokalemia; E86.1 Hypovolemia; E83.42 Hypomagnesemia; Z68.34 Body mass index [BMI] 34.0-34.9, adult
CPT/HCPCS: 36415; 36569; 71010; 71275; 76937; 80048; 80053; 80150; 82550; 82553; 82962; 83605; 83735; 84439; 84443; 84480; 84484; 85007; 85025; 85651; 86850; 86900; 86901; 86920; 87040; 87081; 87181; 93005; 93306; 93970; J2405

== ENCOUNTER 2016-05-31 15:56 | Inpatient (IN) | payer MEDICARE, OTHER ==
[~2016-05-31] VITALS: Ht 167.6 cm; Wt 86.2 kg
[~2016-05-31 15:56] MED LIST changes: +AMBIEN5 MG ORAL; +AMIKIN500 MG/2 M IVPB; +DILAUDID2 MG IVP; +DIPHENHYDRAMINE25 M1 IVP; +HEPARIN2000 UNIT/ SQ; +MERREM1 GM IVPB; +MILK OF MA400 MG/51 ORAL; +MYLANTA II30 ML ORAL; +PROTONIX40 MG ORAL; +TYLENOL650 MG/20. ORAL; +UNOBMED; +ZOFRAN 4 MG4 MG/2 ML IV
[2016-05-31 16:29] VITALS: BP 111/64
[2016-05-31] MEDS ORDERED: NS 1000ml 2,600 ML IVLG ONE (16:45)
--- NOTE | 2016-05-31 17:02 | Emergency Room Report ---
History of Present Illness General Chief Complaint: Pain Source: Patient, Medical Record Present Illness HPI Patient presents with complaints of increased pain diffusely Patient has a history of a semi-light is Patient's PICC line has been removed previously Does not have any access she was sent for placement tomorrow however she had increased continued pain Low-grade fever and tachycardia she was sent to the emergency room Pain is 8/10 fairly diffuse Denies any fevers or chills denies any vomiting or diarrhea Allergies: Coded Allergies: CEFTRIAXONE (Verified Allergy, Intermediate, SOB, HR-140bpm, face swollen , pt became red, 10/24/15) CODEINE (Verified Allergy, Intermediate, SWELLING, 01/03/11) LATEX (Verified Allergy, Intermediate, SWELLING, 01/03/11) PIPERACILLIN (Verified Allergy, Intermediate, Itching, 08/29/15) 08/29/15 tolerates Ceftaroline TAZOBACTAM (Verified Allergy, Intermediate, Itching, 01/29/15) POLYMYXIN B (Verified Allergy, Mild, Rash, 04/08/16) Suspected allergy reported by VANCOMYCIN (Verified Allergy, Mild, 07/15/14) ASPARAGINASE (Verified Allergy, Unknown, 01/28/14) CEFUROXIME (Unverified Allergy, Unknown, 04/19/16) IRON (Verified Allergy, Unknown, 01/28/14) Patient History Past Medical History: see triage record Pertinent Family History: none Reviewed Nursing Documentation: PMH: Agreed, PSxH: Agreed Nursing Documentation-PMH Past Medical History: No History, Except For Hx Hypertension: No Hx Pacemaker: No Hx Asthma: Yes Hx COPD: No Hx Diabetes: No Hx Cancer: No Hx Gastrointestinal Problems: Yes - gastritis Hx Neurological Problems: Yes - Paraplegic Hx Cerebrovascular Accident: No Hx Seizures: No 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 Hx Weakness: Yes Hx Fatigue: Yes Review of Systems All Other Systems: negative except mentioned in HPI Physical Exam Vital Signs Date Time Temp Pulse Resp B/P Pulse Ox O2 Delivery O2 Flow Rate FiO2 05/31/16 15:59 98.2 122 18 111/64 98 Room Air Sp02 EP Interpretation: reviewed, normal General Appearance: no apparent distress Head: normocephalic, atraumatic Eyes: bilateral eye EOMI, bilateral eye PERRL ENT: hearing grossly normal, normal pharynx, TMs + canals normal, uvula midline Neck: full range of motion, supple, no meningismus, no bony tend Respiratory: lungs clear, normal breath sounds, no rhonchi, no respiratory distress, no retraction, no accessory muscle use Cardiovascular #1: normal peripheral pulses, no edema, no gallop, no JVD, no murmur, tachycardia Gastrointestinal: normal bowel sounds, non tender, soft, no mass, no organomegaly, non-distended, no guarding, no hernia, no pulsatile mass, no rebound Genitourinary: no CVA tenderness Musculoskeletal: swelling Neurologic: oriented x3, responsive, sensory intact Psychiatric: mood/affect normal Skin: other - Patient has increased erythema in the left upper arm, edema diffusely Lymphatic: no adenopathy Medical Decision Making Diagnostic Impression: Primary Impression: Sepsis Additional Impression: Osteomyelitis ER Course Patient presents concerning for sepsis versus severe sepsis patient however has been on prolonged antibiotics does not meet criteria for severe sepsis Was given pain medication Patient is set for PICC line tomorrow Patient's white blood for count is elevated Patient received IM injections of pain medication And was admitted for further inpatient care Labs Test 05/31/16 16:40 06/01/16 11:15 White Blood Count 8.8 K/UL (4.8-10.8) Red Blood Count 3.27 M/UL (4.20-5.40) Hemoglobin 9.1 G/DL (12.0-16.0) Hematocrit 28.4 % (37.0-47.0) Mean Corpuscular Volume 87 FL (80-99) Mean Corpuscular Hemoglobin 27.9 PG (27.0-31.0) Mean Corpuscular Hemoglobin Concent 32.1 G/DL (32.0-36.0) Red Cell Distribution Width 17.8 % (11.6-14.8) Platelet Count 380 K/UL (150-450) Mean Platelet Volume 6.4 FL (6.5-10.1) Neutrophils (%) (Auto) 68.3 % (45.0-75.0) Lymphocytes (%) (Auto) 23.0 % (20.0-45.0) Monocytes (%) (Auto) 4.7 % (1.0-10.0) Eosinophils (%) (Auto) 2.6 % (0.0-3.0) Basophils (%) (Auto) 1.4 % (0.0-2.0) Sodium Level 132 mEQ/L (135-145) 137 mEQ/L (135-145) Potassium Level 5.8 mEQ/L (3.4-4.9) 4.3 mEQ/L (3.4-4.9) Chloride Level 93 mEQ/L (98-107) 97 mEQ/L (98-107) Carbon Dioxide Level 23 mEQ/L (20-30) 26 mEQ/L (20-30) Anion Gap 16 (5-15) 14 (5-15) Blood Urea Nitrogen 10 mg/dL (7-23) 10 mg/dL (7-23) Creatinine 0.6 mg/dL (0.5-0.9) 0.5 mg/dL (0.5-0.9) Estimat Glomerular Filtration Rate > 60 mL/min (>60) > 60 mL/min (>60) Glucose Level 139 mg/dL (74-106) 100 mg/dL (74-106) Calcium Level 7.6 mg/dL (8.6-10.2) 7.7 mg/dL (8.6-10.2) Rhythm Strip Diag. Results EP Interpretation: yes Rate: 110 Rhythm: no PVC's, no ectopy, other - sinus tach Last Vital Signs Date Time Temp Pulse Resp B/P Pulse Ox O2 Delivery O2 Flow Rate FiO2 05/31/16 16:29 98.2 112 18 111/64 98 Room Air Status: improved Disposition: ADMITTED INPATIENT Condition: Serious Referrals: LUANN MICHEL (PCP) JERALD PEREZ D.O. May 31, 2016 17:02
[2016-05-31 17:09] LABS: ANION GAP 16 (5-15); CALCIUM 7.6 mg/dL (8.6-10.2); CARBON DIOXIDE 23 mEQ/L (20-30); CHLORIDE 93 mEQ/L (98-107); CREATININE 0.6 mg/dL (0.5-0.9); GLOMERULAR FILTRATION RATE > 60 mL/min (>60); HEMOLYSIS 320; POTASSIUM 5.8 mEQ/L (3.4-4.9); SODIUM 132 mEQ/L (135-145)
[2016-05-31 17:22] LABS: BASOPHILS % (AUTO) 1.4 % (0.0-2.0); EOSINOPHILS % (AUTO) 2.6 % (0.0-3.0); MEAN CORPUSCULAR HEMOGLOBIN 27.9 PG (27.0-31.0); MEAN CORPUSCULAR HGB CONC 32.1 G/DL (32.0-36.0); MEAN CORPUSCULAR VOLUME 87 FL (80-99); MEAN PLATELET VOLUME 6.4 FL (6.5-10.1); MONOCYTES % (AUTO) 4.7 % (1.0-10.0); NEUTROPHILS % (AUTO) 68.3 % (45.0-75.0); PLATELET COUNT 380 K/UL (150-450); RED BLOOD COUNT 3.27 M/UL (4.20-5.40); RED CELL DISTRIBUTION WIDTH 17.8 % (11.6-14.8); WHITE BLOOD COUNT 8.8 K/UL (4.8-10.8)
[2016-05-31 17:30] VITALS: BP 112/59
[2016-05-31 18:30] VITALS: BP 108/62
[2016-05-31 19:30] VITALS: BP 118/68
[2016-06-01] VITALS: BP 103/67
[2016-06-01] MEDS ORDERED: Sodium Polystyrene Sulfonate 15gm Powder ORAL ONE ×2 (02:30→09:00)
[2016-06-01] MEDS ORDERED: Zolpidem 5mg tab ORAL PRN (02:30)
[2016-06-01] MEDS ORDERED: Milk of Magnesia 30ml Ud ORAL ONE (02:30)
[2016-06-01] MEDS ORDERED: Milk of Magnesia 30ml Ud ORAL PRN (03:00)
[2016-06-01 04:00] VITALS: BP 110/67
[2016-06-01 08:00] VITALS: BP 121/63
[2016-06-01] MEDS ORDERED: Lidocaine 1% Plain 30 ml INJ ONE (09:00)
[2016-06-01] MEDS ORDERED: Heparin 5000 units/ml inj SUBQ SCH (09:00)
[2016-06-01] MEDS ORDERED: Heparin 2000 units/Ns 1000ml INJ ONE (09:00)
[2016-06-01] MEDS ORDERED: Sodium Bicarbonate 8.4% 50ml Inj IV ONE (09:00)
[2016-06-01 11:43] LABS: ANION GAP 14 (5-15); CALCIUM 7.7 mg/dL (8.6-10.2); CARBON DIOXIDE 26 mEQ/L (20-30); CHLORIDE 97 mEQ/L (98-107); CREATININE 0.5 mg/dL (0.5-0.9); GLOMERULAR FILTRATION RATE > 60 mL/min (>60); HEMOLYSIS 3; POTASSIUM 4.3 mEQ/L (3.4-4.9); SODIUM 137 mEQ/L (135-145)
[2016-06-01 12:00] VITALS: BP 119/76
[2016-06-01] MEDS ORDERED: Meropenem 1gm in NS 110ml IVPB SCH (13:00)
[2016-06-01] MEDS ORDERED: Tigecycline 100mg in D5W 110ml IVPB ONE (13:00)
--- NOTE | 2016-06-01 13:54 | Diagnostic Imaging Report ---
Indications: Needs long-term IV access Technique: Ultrasound confirms patent compressible right brachial vein. Total sterile technique, including sterile probe cover and sterile gel, hat, mask,, sterile gown, large sterile drape, and preparation with 2% chlorhexidine utilized. Local anesthesia with 1% lidocaine. Under real-time ultrasound guidance, puncture right vein using 21-gauge needle, documented and archived, passage 0.018 guidewire under direct fluoroscopy, which was used to determine appropriate catheter length, exchange for 5 Romansh peel-away sheath. 5 Romansh Bard dual-lumen power PICC cut to edema and cm. It was inserted through the peel-away sheath. Peel-away sheath and guidewire removed. Catheter fixed to the skin. Both catheter ports aspirated and flushed. Patient tolerated procedure well, without immediate complication. Digital radiograph documents satisfactory catheter tip position, at the cavoatrial junction. Total fluoroscopy time 0.1 minutes. Total dose area product 1.6 dGycm2 Impression: Successful placement of PICC under sonographic and fluoroscopic guidance, as described above.
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
--- NOTE | 2016-06-01 14:27 | Wound Nurse Progress Note ---
Wound RN Progress Note Wound Consult explained to patient importance of wound photographs and if they can be retaken , patient states " i know, tonight". patient agreed. SUGEY JORDAN Jun 01, 2016 14:27
[2016-06-01] MEDS ORDERED: DiphenhydrAMINE 50mg/ml Inj IVP PRN (14:30)
--- NOTE | 2016-06-01 15:58 | Infectious Diseases Prog Note ---
Assessment/Plan Assessment/Plan HPI: 41 yo known to me because hx of sacral osteo/wound infection, hx gram neg bacteremia/sepsis/line infection. Patient admitted for possible sepsis, pain, weakness, tachycardia. Asked to evaluate patient for abx and w/u. Picc line now new> ASSESSMENT AND PLAN: 1. e.coli/morganella, klebsiella/polymicrobial sacral wound infection, high suspicion for osteo, ct abdomen and pelvis with possible lumbar spine osteo/ discitis - finish course of meropenem and tygacil for one week more (would have had at least 6 weeks of abx) - wound care per protocol - plastic surgery to re-evaluate wound 2. hx line infection, ? recurrent line infection - recheck blood cultures, on abx 3. tachycardia - ? early sepsis, hx of fever but afebrile now 4. n/v - per primary 5. History of osteoarthritis and treatment. 6. Colostomy. 7. Paraplegia. 8. Anemia. 9. ? diabetes - patient denies dm hx, bs elevated only with infection per pt 10. Chronic pain management and chronic pain syndrome, anxiety 11. History of cholelithiasis. 12. Pain management for primary, opiate dependency 13. Multiple allergies to asparaginase, Rocephin, codeine, iron, Latex, piperacillin, tazobactam, and vancomycin, ? polymyxin 14. wound care per protocol and plastic surgery 15. The case was discussed with RN 16. The case was discussed with the patient. 17. fh-nc, sh-negative, mar noted 18. notes and records reviewed 19. communicated with Dr. Healy 20. d/w patient and answered questions Subjective Subjective Constitutional: Denies: fever HEENT: Denies: congestion Respiratory: Denies: shortness of breath Cardiovascular: Denies: chest pain Gastrointestinal/Abdominal: Reports: other - + colostomy, Denies: nausea, vomiting Genitourinary: Reports: dysuria, other - no bay, Denies: frequency, hematuria Neurologic: Denies: headache Psychiatric: Denies: depression Skin: Reports: other - wounds noted, Denies: rash Hematologic: Denies: bleeding Musculoskeletal: Denies: pain Allergies: Coded Allergies: CEFTRIAXONE (Verified Allergy, Intermediate, SOB, HR-140bpm, face swollen , pt became red, 10/24/15) CODEINE (Verified Allergy, Intermediate, SWELLING, 01/03/11) LATEX (Verified Allergy, Intermediate, SWELLING, 01/03/11) PIPERACILLIN (Verified Allergy, Intermediate, Itching, 08/29/15) 08/29/15 tolerates Ceftaroline TAZOBACTAM (Verified Allergy, Intermediate, Itching, 01/29/15) POLYMYXIN B (Verified Allergy, Mild, Rash, 04/08/16) Suspected allergy reported by VANCOMYCIN (Verified Allergy, Mild, 07/15/14) ASPARAGINASE (Verified Allergy, Unknown, 01/28/14) CEFUROXIME (Unverified Allergy, Unknown, 04/19/16) IRON (Verified Allergy, Unknown, 01/28/14) Objective Vital Signs Last 24 Hour Vital Signs Date Time Temp Pulse Resp B/P Pulse Ox O2 Delivery O2 Flow Rate FiO2 06/01/16 13:37 98.0 06/01/16 12:00 98.1 124 20 119/76 98 Room Air 06/01/16 08:00 97.9 113 21 121/63 98 Room Air 06/01/16 08:00 111 06/01/16 04:00 97.5 110 20 110/67 96 Room Air 06/01/16 04:00 11 06/01/16 00:00 97.0 112 20 103/67 96 Room Air 05/31/16 23:43 114 05/31/16 20:30 98.2 130 20 118/68 98 Room Air 05/31/16 19:30 130 20 118/68 98 Room Air 05/31/16 18:30 128 18 108/62 98 Room Air 05/31/16 18:12 98.2 05/31/16 17:30 130 16 112/59 97 Room Air 05/31/16 16:29 98.2 112 18 111/64 98 Room Air 05/31/16 15:59 98.2 122 18 111/64 98 Room Air Height (Feet): 5 Height (Inches): 5.00 Weight (Pounds): 190 General Appearance: no acute distress HEENT: normocephalic, atraumatic, anicteric, mucous membranes moist, PERRL, EOMI, pharynx normal, supple, no JVD Respiratory/Chest: lungs clear, normal breath sounds, no respiratory distress, no accessory muscle use Cardiovascular: normal rate, regular rhythm, no gallop/murmur, no JVD Abdomen: normal bowel sounds, soft, non tender, no organomegaly, non distended Genitourinary: other - no bay Extremities: no cyanosis Skin: no rash - no new rash, other - wounds reviewed 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, alert, responsive, motor weakness Lymphatic: no neck adenopathy Musculoskeletal: no effusion Objective s/p post picc line no other imaging previous imaging noted blood cultures ordered previous cultures reviewed Laboratory Tests Test 05/31/16 16:40 06/01/16 11:15 White Blood Count 8.8 K/UL (4.8-10.8) Red Blood Count 3.27 M/UL (4.20-5.40) L Hemoglobin 9.1 G/DL (12.0-16.0) L Hematocrit 28.4 % (37.0-47.0) L Mean Corpuscular Volume 87 FL (80-99) Mean Corpuscular Hemoglobin 27.9 PG (27.0-31.0) Mean Corpuscular Hemoglobin Concent 32.1 G/DL (32.0-36.0) Red Cell Distribution Width 17.8 % (11.6-14.8) H Platelet Count 380 K/UL (150-450) Mean Platelet Volume 6.4 FL (6.5-10.1) L Neutrophils (%) (Auto) 68.3 % (45.0-75.0) Lymphocytes (%) (Auto) 23.0 % (20.0-45.0) Monocytes (%) (Auto) 4.7 % (1.0-10.0) Eosinophils (%) (Auto) 2.6 % (0.0-3.0) Basophils (%) (Auto) 1.4 % (0.0-2.0) Sodium Level 132 mEQ/L (135-145) L 137 mEQ/L (135-145) Potassium Level 5.8 mEQ/L (3.4-4.9) H 4.3 mEQ/L (3.4-4.9) Chloride Level 93 mEQ/L (98-107) L 97 mEQ/L (98-107) L Carbon Dioxide Level 23 mEQ/L (20-30) 26 mEQ/L (20-30) Anion Gap 16 (5-15) H 14 (5-15) Blood Urea Nitrogen 10 mg/dL (7-23) 10 mg/dL (7-23) Creatinine 0.6 mg/dL (0.5-0.9) 0.5 mg/dL (0.5-0.9) Estimat Glomerular Filtration Rate > 60 mL/min (>60) > 60 mL/min (>60) Glucose Level 139 mg/dL (74-106) H 100 mg/dL (74-106) Calcium Level 7.6 mg/dL (8.6-10.2) L 7.7 mg/dL (8.6-10.2) L Current Medications Medications (Trade) Dose Ordered Sig/Pineda Route PRN Reason Start Time Stop Time Status Last Admin Dose Admin Al Hydroxide/Mg Hydroxide (Mylanta) 30 ml EVERY 4 HOURS PRN ORAL dyspepsia 06/01/16 17:00 07/01/16 16:59 Dextrose (Dextrose 50%) STAT PRN IV Hypoglycemia 06/02/16 02:15 07/02/16 02:14 Diphenhydramine HCl (Benadryl) 25 mg EVERY 4 HOURS PRN ORAL Itching 06/01/16 17:00 07/01/16 16:59 Diphenhydramine HCl (Benadryl) 50 mg Q6H PRN IVP Itching 06/01/16 20:30 07/01/16 20:29 Heparin Sodium (Porcine) (Heparin 5000 units/ml) 5,000 units EVERY 12 HOURS SUBQ 06/01/16 21:00 07/01/16 20:59 Hydromorphone HCl (Dilaudid) 2 mg EVERY 3 HOURS PRN IVP Severe Breakthru Pain (>7) 06/01/16 15:00 06/08/16 14:59 Magnesium Hydroxide (Mom) 30 ml HSPRN PRN ORAL Constipation 06/02/16 03:00 07/02/16 02:59 Meropenem 1 gm/ Sodium Chloride 110 ml @ 220 mls/hr Q12HR@0100,1300 IVPB 06/02/16 01:00 06/07/16 00:59 Ondansetron HCl (Zofran) 4 mg Q6H PRN IVP Nausea & Vomiting 06/01/16 20:30 07/01/16 20:29 Pantoprazole (Protonix) 40 mg DAILY ORAL 06/02/16 09:00 07/02/16 08:59 Sodium Chloride 1,000 ml @ 100 mls/hr Q10H IVLG 06/01/16 16:00 07/01/16 15:59 Tigecycline/ Dextrose (Tygacil/D5W) 110 ml @ 220 mls/hr Q12HR@0100,1300 IVPB 06/02/16 01:00 06/09/16 00:59 Zolpidem Tartrate (Ambien) 5 mg HSPRN PRN ORAL Insomnia 06/02/16 02:30 07/02/16 02:29 GRZEGORZ MARTINEZ Jun 01, 2016 15:58
[2016-06-01 16:00] VITALS: BP 109/68
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
[2016-06-01 20:00] VITALS: BP 97/58
[2016-06-01] MEDS: Heparin 5000 units/ml inj SUBQ SCH (20:10)
[2016-06-01] MEDS: Meropenem 1 GM in NS 110 ML IVPB SCH (21:07)
[2016-06-01] MEDS: DiphenhydrAMINE 50mg/ml Inj IVP PRN (21:29)
[2016-06-02] VITALS (7 sets, daily range): BP systolic 84–161; BP diastolic 48–98
[2016-06-02] MEDS ORDERED: Tigecycline 50 MG in D5W 110 ML IVPB SCH (01:00)
[2016-06-02] MEDS ORDERED: Tigecycline 50mg in D5W 110ml IVPB SCH (01:00)
[2016-06-02] MEDS ORDERED: Meropenem 1 GM in NS 110 ML IVPB SCH (01:00)
[2016-06-02] MEDS ORDERED: Zolpidem 5mg tab ORAL PRN (02:30)
[2016-06-02] MEDS ORDERED: Milk of Magnesia 30ml Ud ORAL PRN (03:00)
[2016-06-02] MEDS: DiphenhydrAMINE 50mg/ml Inj IVP PRN ×4 (03:23→20:45)
[2016-06-02] MEDS: Meropenem 1 GM in NS 110 ML IVPB SCH ×2 (05:23→20:15)
[2016-06-02 08:43] LABS: MEAN CORPUSCULAR HEMOGLOBIN 27.8 PG (27.0-31.0); MEAN CORPUSCULAR HGB CONC 32.3 G/DL (32.0-36.0); MEAN CORPUSCULAR VOLUME 86 FL (80-99); MEAN PLATELET VOLUME 6.5 FL (6.5-10.1); PLATELET COUNT 269 K/UL (150-450); RED BLOOD COUNT 2.68 M/UL (4.20-5.40); RED CELL DISTRIBUTION WIDTH 18.2 % (11.6-14.8); WHITE BLOOD COUNT 5.8 K/UL (4.8-10.8)
[2016-06-02 08:59] LABS: ALANINE AMINOTRANSFERASE 5 U/L (3-33); ALBUMIN/GLOBULIN RATIO 0.4 (1.0-2.7); ANION GAP 9 (5-15); ASPARTATE AMINO TRANSFERASE 7 U/L (5-40); CARBON DIOXIDE 29 mEQ/L (20-30); CHLORIDE 102 mEQ/L (98-107); CREATININE 0.5 mg/dL (0.5-0.9); GLOMERULAR FILTRATION RATE > 60 mL/min (>60); HEMOLYSIS 1; POTASSIUM 3.8 mEQ/L (3.4-4.9); SODIUM 140 mEQ/L (135-145); TOTAL PROTEIN 5.2 g/dL (6.6-8.7)
[2016-06-02] MEDS: Heparin 5000 units/ml inj SUBQ SCH ×2 (09:00→20:45)
--- NOTE | 2016-06-02 09:06 | General Progress Note ---
Assessment/Plan Assessment/Plan IMPRESSION: 1. lyte imbalance. 2. paraplegia 3. Acute renal failure. 4. Discitis. 5. Osteomyelitis. 6. History of bacteremia. 7. Chronic opiate/narcotic dependence. 8. Anemia. 9. hyperglycemia 10. Anion gap. PLAN ID noted plastics transfuse pain control nutrition home dc when stable impression, plan, and exam edited and reviewed in detail care discussed with RN Subjective Allergies: Coded Allergies: CEFTRIAXONE (Verified Allergy, Intermediate, SOB, HR-140bpm, face swollen , pt became red, 10/24/15) CODEINE (Verified Allergy, Intermediate, SWELLING, 01/03/11) LATEX (Verified Allergy, Intermediate, SWELLING, 01/03/11) PIPERACILLIN (Verified Allergy, Intermediate, Itching, 08/29/15) 08/29/15 tolerates Ceftaroline TAZOBACTAM (Verified Allergy, Intermediate, Itching, 01/29/15) POLYMYXIN B (Verified Allergy, Mild, Rash, 04/08/16) Suspected allergy reported by MD VANCOMYCIN (Verified Allergy, Mild, 07/15/14) ASPARAGINASE (Verified Allergy, Unknown, 01/28/14) CEFUROXIME (Unverified Allergy, Unknown, 04/19/16) IRON (Verified Allergy, Unknown, 01/28/14) Subjective PICC in place all noted d/w ID Objective Last 24 Hour Vital Signs Date Time Temp Pulse Resp B/P Pulse Ox O2 Delivery O2 Flow Rate FiO2 06/02/16 08:00 98.2 88 18 161/98 98 Room Air 06/02/16 04:00 97.0 99 20 84/51 Room Air 06/02/16 00:00 97.7 106 18 93/58 92 Room Air 06/01/16 20:00 97.0 104 18 97/58 99 Room Air 06/01/16 16:00 97.7 108 22 109/68 99 Room Air 06/01/16 13:37 98.0 06/01/16 12:00 98.1 124 20 119/76 98 Room Air Intake and Output 06/01/16 06/02/16 19:00 07:00 Intake Total 1060 ml 1920 ml Output Total 1 ml Balance 1059 ml 1920 ml Intake Oral 760 ml 1500 ml IV Total 300 ml 420 ml Output Stool Total 1 ml # Voids 2 Laboratory Tests 06/01/16 11:15: Sodium Level 137, Potassium Level 4.3, Chloride Level 97L, Carbon Dioxide Level 26, Anion Gap 14, Blood Urea Nitrogen 10, Creatinine 0.5, Estimat Glomerular Filtration Rate > 60, Glucose Level 100, Calcium Level 7.7L 06/02/16 07:30: Sodium Level 140, Potassium Level 3.8, Chloride Level 102, Carbon Dioxide Level 29, Anion Gap 9, Blood Urea Nitrogen 11, Creatinine 0.5, Estimat Glomerular Filtration Rate > 60, Glucose Level 68L, Calcium Level 7.0L, White Blood Count 5.8, Red Blood Count 2.68L, Hemoglobin 7.5L, Hematocrit 23.1L, Mean Corpuscular Volume 86, Mean Corpuscular Hemoglobin 27.8, Mean Corpuscular Hemoglobin Concent 32.3, Red Cell Distribution Width 18.2H, Platelet Count 269, Mean Platelet Volume 6.5, Neutrophils (%) (Auto) , Lymphocytes (%) (Auto) , Monocytes (%) (Auto) , Eosinophils (%) (Auto) , Basophils (%) (Auto) , Neutrophils % (Manual) [Pending], Lymphocytes % (Manual) [Pending], Platelet Estimate [Pending], Platelet Morphology [Pending], Total Bilirubin 0.3, Aspartate Amino Transf (AST/SGOT) 7, Alanine Aminotransferase (ALT/SGPT) 5, Alkaline Phosphatase 121H, Total Protein 5.2L, Albumin 1.7L, Globulin 3.5, Albumin/Globulin Ratio 0.4L Height (Feet): 5 Height (Inches): 5.00 Weight (Pounds): 190 Objective GENERAL: A well developed female lying comfortable. The patient is alert and oriented. HEENT: Negative. NECK: Supple. No adenopathy. Carotids 2+. LUNGS: Clear. Symmetric. without rhonchi or wheeze CARDIAC: S2. Regular rate and rhythm. Sinus tachycardia.without MRG ABDOMEN: Soft and nontender. obese EXTREMITIES: No cyanosis or clubbing. There is no lower extremity edema. NEUROLOGIC: Grossly nonfocal, paraplegic LUANN MICHEL Jun 02, 2016 09:06
[2016-06-02] MEDS ORDERED: Amikacin Rx to dose MISC PRN (11:00)
[2016-06-02 11:59] LABS: BAND NEUTROPHILS % (MANUAL) 0 % (0-8); BASOPHILS % (MANUAL) 0 % (0-2); EOSINOPHILS % (MANUAL) 3 % (0-3); LYMPHOCYTES % (MANUAL) 26 % (20-45); NEUTROPHILS % (MANUAL) 66 % (45-75); PLATELET ESTIMATE ADEQUATE; TOTAL CELLS COUNTED 100
[2016-06-02 12:00] LABS: ANISOCYTOSIS 1+; HYPOCHROMASIA 1+; PLATELET MORPHOLOGY NORMAL
[2016-06-02] MEDS ORDERED: Amikacin 1,000 MG in NS 110 ML IV ONE ×2 (13:00→16:00)
--- NOTE | 2016-06-02 19:15 | Consultation ---
History of Present Illness General Date patient seen: Jun 02, 2016 Time patient seen: 19:09 Chief Complaint: Pain Referring physician: Belen Reason for Consultation: Pressure ulcers Present Illness HPI Patient is a 41 yof female well known to me. She has a h/o chronic pressure ulcers due to paraplegia. She was in a SNF for IV abx for osteomyelitis of the sacrum but was admitted to [facility] for a new PICC line on 05/31/16 when she was found to be anemic as well. She has a new PICC line and is being treated by ID. Allergies: Coded Allergies: CEFTRIAXONE (Verified Allergy, Intermediate, SOB, HR-140bpm, face swollen , pt became red, 10/24/15) CODEINE (Verified Allergy, Intermediate, SWELLING, 01/03/11) LATEX (Verified Allergy, Intermediate, SWELLING, 01/03/11) PIPERACILLIN (Verified Allergy, Intermediate, Itching, 08/29/15) 08/29/15 tolerates Ceftaroline TAZOBACTAM (Verified Allergy, Intermediate, Itching, 01/29/15) POLYMYXIN B (Verified Allergy, Mild, Rash, 04/08/16) Suspected allergy reported by VANCOMYCIN (Verified Allergy, Mild, 07/15/14) ASPARAGINASE (Verified Allergy, Unknown, 01/28/14) CEFUROXIME (Unverified Allergy, Unknown, 04/19/16) IRON (Verified Allergy, Unknown, 01/28/14) Medication History Scheduled Amikacin Sulfate (Amikin), 850 MG IVPB DAILY, (Reported) Heparin Sodium,Porcine/Ns/Pf (Heparin), 5,000 UNIT SQ EVERY 12 HOURS, (Reported) Meropenem (Meropenem), 1 GM IV EVERY 8 HOURS, (Reported) Meropenem (Merrem), 1 GM IVPB Q8HR, (Reported) Pantoprazole* (Protonix*), 40 MG ORAL DAILY, (Reported) Scheduled PRN Acetaminophen (Acetaminophen), 650 MG ORAL Q4HR PRN for Fever/Headache/Mild Pain , (Reported) Al Hydroxide/mg Hydroxide (Mag-Al Plus Suspension), 30 ML ORAL Q4HR PRN for dyspepsia, (Reported) Diphenhydramine Hcl* (Diphenhydramine Hcl*), 25 MG IVP Q3HR PRN for Itching, ( Reported) Hydromorphone HCl (Dilaudid), 2 MG IVP Q3HR PRN for Severe Pain (Pain Scale 7-10 ), (Reported) Magnesium Hydroxide* (Milk Of Magnesia*), 30 ML ORAL HS PRN for Constipation, ( Reported) Ondansetron* (Zofran*), 4 MG IV Q6HR PRN for Nausea & Vomiting, (Reported) Zolpidem Tartrate* (Ambien*), 5 MG ORAL BEDTIME PRN for insomnia, (Reported) Miscellaneous Medications Unable to Obtain Medications (Unable To Obtain Meds), (Reported) Patient History History Provided By: Patient, Medical Record Healthcare decision maker Resuscitation status Full Code Advanced Directive on File Yes Review of Systems Constitutional: Reports: no symptoms Eye: Reports: no symptoms ENT: Reports: no symptoms Respiratory: Reports: no symptoms Cardiovascular: Reports: no symptoms Gastrointestinal: Reports: nausea Genitourinary: Reports: incontinence Skin: Reports: see HPI Psychiatric: Reports: no symptoms Physical Exam General Appearance: alert Lines, tubes and drains: PICC Abdomen: soft Skin Exam: other - Stage 4 sacral ulcer with bone exposed. Periskin is indurated and inflamed but no purulent drainage from the wound. Posterior thigh ulcers showing sigificant improvement with granular base. Neurologic: normal mood/affect Last 24 Hour Vital Signs Date Time Temp Pulse Resp B/P Pulse Ox O2 Delivery O2 Flow Rate FiO2 06/02/16 16:00 97.7 100 16 97/60 100 Room Air 06/02/16 12:49 96.6 06/02/16 12:14 96.6 98 18 106/58 100 Room Air 06/02/16 08:00 98.2 88 18 161/98 98 Room Air 06/02/16 04:00 97.0 99 20 84/51 Room Air 06/02/16 00:00 97.7 106 18 93/58 92 Room Air 06/01/16 20:00 97.0 104 18 97/58 99 Room Air Intake and Output 06/01/16 06/02/16 19:00 07:00 Intake Total 1060 ml 2020 ml Output Total 1 ml Balance 1059 ml 2020 ml Intake Oral 760 ml 1500 ml IV Total 300 ml 520 ml Output Stool Total 1 ml # Voids 2 Laboratory Tests Test 06/02/16 07:30 White Blood Count 5.8 K/UL (4.8-10.8) Red Blood Count 2.68 M/UL (4.20-5.40) L Hemoglobin 7.5 G/DL (12.0-16.0) L Hematocrit 23.1 % (37.0-47.0) L Mean Corpuscular Volume 86 FL (80-99) Mean Corpuscular Hemoglobin 27.8 PG (27.0-31.0) Mean Corpuscular Hemoglobin Concent 32.3 G/DL (32.0-36.0) Red Cell Distribution Width 18.2 % (11.6-14.8) H Platelet Count 269 K/UL (150-450) Mean Platelet Volume 6.5 FL (6.5-10.1) Neutrophils (%) (Auto) % (45.0-75.0) Lymphocytes (%) (Auto) % (20.0-45.0) Monocytes (%) (Auto) % (1.0-10.0) Eosinophils (%) (Auto) % (0.0-3.0) Basophils (%) (Auto) % (0.0-2.0) Differential Total Cells Counted 100 Neutrophils % (Manual) 66 % (45-75) Lymphocytes % (Manual) 26 % (20-45) Monocytes % (Manual) 5 % (1-10) Eosinophils % (Manual) 3 % (0-3) Basophils % (Manual) 0 % (0-2) Band Neutrophils 0 % (0-8) Platelet Estimate Adequate Platelet Morphology Normal Hypochromasia 1+ Anisocytosis 1+ Sodium Level 140 mEQ/L (135-145) Potassium Level 3.8 mEQ/L (3.4-4.9) Chloride Level 102 mEQ/L (98-107) Carbon Dioxide Level 29 mEQ/L (20-30) Anion Gap 9 (5-15) Blood Urea Nitrogen 11 mg/dL (7-23) Creatinine 0.5 mg/dL (0.5-0.9) Estimat Glomerular Filtration Rate > 60 mL/min (>60) Glucose Level 68 mg/dL (74-106) L Calcium Level 7.0 mg/dL (8.6-10.2) L Total Bilirubin 0.3 mg/dL (0.0-1.2) Aspartate Amino Transf (AST/SGOT) 7 U/L (5-40) Alanine Aminotransferase (ALT/SGPT) 5 U/L (3-33) Alkaline Phosphatase 121 U/L (35-104) H Total Protein 5.2 g/dL (6.6-8.7) L Albumin 1.7 g/dL (3.5-5.2) L Globulin 3.5 g/dL Albumin/Globulin Ratio 0.4 (1.0-2.7) L Height (Feet): 5 Height (Inches): 5.00 Weight (Pounds): 190 Medications Current Medications Medications (Trade) Dose Ordered Sig/Pineda Route PRN Reason Start Time Stop Time Status Last Admin Dose Admin Al Hydroxide/Mg Hydroxide (Mylanta) 30 ml EVERY 4 HOURS PRN ORAL dyspepsia 06/01/16 17:00 07/01/16 16:59 Amikacin Protocol 1 ea 1 ea DAILY PRN MISC Per rx protocol 06/02/16 11:00 07/02/16 10:59 Amikacin Sulfate/ Sodium Chloride (Amikin/Sodium Chloride) 114 ml @ 114 mls/hr Q24H IV 06/03/16 16:00 06/10/16 15:59 Dextrose (Dextrose 50%) STAT PRN IV Hypoglycemia 06/02/16 02:15 07/02/16 02:14 Diphenhydramine HCl (Benadryl) 25 mg EVERY 4 HOURS PRN ORAL Itching 06/01/16 17:00 07/01/16 16:59 Diphenhydramine HCl (Benadryl) 50 mg Q6H PRN IVP Itching 06/01/16 20:30 07/01/16 20:29 06/02/16 14:51 Heparin Sodium (Porcine) (Heparin 5000 units/ml) 5,000 units EVERY 12 HOURS SUBQ 06/01/16 21:00 07/01/16 20:59 06/01/16 20:10 Hydromorphone HCl (Dilaudid) 2 mg EVERY 3 HOURS PRN IVP Severe Breakthru Pain (>7) 06/01/16 15:00 06/08/16 14:59 06/02/16 14:52 Magnesium Hydroxide (Mom) 30 ml HSPRN PRN ORAL Constipation 06/02/16 03:00 07/02/16 02:59 Meropenem 1 gm/ Sodium Chloride 110 ml @ 220 mls/hr Q8H IVPB 06/02/16 18:00 06/07/16 17:59 Ondansetron HCl (Zofran) 4 mg Q6H PRN IVP Nausea & Vomiting 06/01/16 20:30 07/01/16 20:29 06/02/16 18:59 Pantoprazole (Protonix) 40 mg DAILY ORAL 06/02/16 09:00 07/02/16 08:59 06/02/16 09:05 Sodium Chloride (Sodium Chloride 1000ml bag) 1,000 ml @ 100 mls/hr Q10H IVLG 06/01/16 16:00 07/01/16 15:59 06/02/16 14:51 Tigecycline 50 mg/ Dextrose 110 ml @ 220 mls/hr Q12HR@0100,1300 IVPB 06/03/16 16:00 06/08/16 15:59 Zolpidem Tartrate (Ambien) 5 mg HSPRN PRN ORAL Insomnia 06/02/16 02:30 07/02/16 02:29 Assessment/Plan Status: stable Assessment/Plan Patient with stage 4 sacral and posterior thigh ulcers. She needs IV antibiotics for osteomyelitis. She needs more frequent dressing changes and moisture control in the periskin. Needs low airloss mattress. Correct anemia. No surgical intervention at this time. LEEANNA CORONA Jun 02, 2016 19:15
--- NOTE | 2016-06-02 21:57 | Infectious Diseases Prog Note ---
Assessment/Plan Assessment/Plan ASSESSMENT AND PLAN: 1. e.coli/morganella, klebsiella/polymicrobial sacral wound infection, high suspicion for osteo, ct abdomen and pelvis with possible lumbar spine osteo/ discitis - finish course of meropenem and tygacil for 6 days more (would have had at least 6 weeks of abx) - wound care per protocol - plastic surgery evaluation noted 2. gram neg bacteremia with sepsis - ? line infection, old line removed, new picc (day # 2), ? sbe, recurrent bacteremia, wbc scan ordered 3. tachycardia 4. n/v - per primary 5. History of osteoarthritis and treatment. 6. Colostomy. 7. Paraplegia. 8. Anemia. 9. ? diabetes - patient denies dm hx, bs elevated only with infection per pt 10. Chronic pain management and chronic pain syndrome, anxiety 11. History of cholelithiasis. 12. Pain management for primary, opiate dependency 13. Multiple allergies to asparaginase, Rocephin, codeine, iron, Latex, piperacillin, tazobactam, and vancomycin, ? polymyxin 14. wound care per protocol and plastic surgery 15. The case was discussed with RN 16. The case was discussed with the patient. 17. fh-nc, sh-negative, mar noted 18. notes and records reviewed 19. communicated with Dr. Healy 20. d/w patient and answered questions 21. vre colonization and isolation Subjective Subjective Constitutional: Reports: fatigue, other - + general weakness HEENT: Denies: congestion Respiratory: Denies: shortness of breath Cardiovascular: Denies: chest pain Gastrointestinal/Abdominal: Reports: other - + colostomy, Denies: nausea, vomiting Neurologic: Reports: weakness, Denies: headache Psychiatric: Denies: depression Skin: Reports: other - + arm rash, rash Hematologic: Denies: bleeding Musculoskeletal: Denies: pain Allergies: Coded Allergies: CEFTRIAXONE (Verified Allergy, Intermediate, SOB, HR-140bpm, face swollen , pt became red, 10/24/15) CODEINE (Verified Allergy, Intermediate, SWELLING, 01/03/11) LATEX (Verified Allergy, Intermediate, SWELLING, 01/03/11) PIPERACILLIN (Verified Allergy, Intermediate, Itching, 08/29/15) 08/29/15 tolerates Ceftaroline TAZOBACTAM (Verified Allergy, Intermediate, Itching, 01/29/15) POLYMYXIN B (Verified Allergy, Mild, Rash, 04/08/16) Suspected allergy reported by VANCOMYCIN (Verified Allergy, Mild, 07/15/14) ASPARAGINASE (Verified Allergy, Unknown, 01/28/14) CEFUROXIME (Unverified Allergy, Unknown, 04/19/16) IRON (Verified Allergy, Unknown, 01/28/14) Objective Vital Signs Last 24 Hour Vital Signs Date Time Temp Pulse Resp B/P Pulse Ox O2 Delivery O2 Flow Rate FiO2 06/02/16 20:00 98.1 103 20 112/70 Room Air 06/02/16 16:00 97.7 100 16 97/60 100 Room Air 06/02/16 12:49 96.6 06/02/16 12:14 96.6 98 18 106/58 100 Room Air 06/02/16 08:00 98.2 88 18 161/98 98 Room Air 06/02/16 04:00 97.0 99 20 84/51 Room Air 06/02/16 00:00 97.7 106 18 93/58 92 Room Air Height (Feet): 5 Height (Inches): 5.00 Weight (Pounds): 190 General Appearance: no acute distress HEENT: normocephalic, atraumatic, anicteric, mucous membranes moist, PERRL, EOMI, pharynx normal, supple, no JVD Respiratory/Chest: lungs clear, normal breath sounds, no respiratory distress, no accessory muscle use Cardiovascular: normal rate, regular rhythm, no gallop/murmur, no JVD Abdomen: normal bowel sounds, soft, non tender, no organomegaly, non distended Genitourinary: other - no bay Extremities: no cyanosis Skin: rash - + upper arm rash noted bilateral 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: operations officer 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 Complete 05/31/16 18:00 Rectum VRE Culture - Final Enterococcus Faecium - Vre Complete Laboratory Tests Test 06/02/16 07:30 White Blood Count 5.8 K/UL (4.8-10.8) Red Blood Count 2.68 M/UL (4.20-5.40) L Hemoglobin 7.5 G/DL (12.0-16.0) L Hematocrit 23.1 % (37.0-47.0) L Mean Corpuscular Volume 86 FL (80-99) Mean Corpuscular Hemoglobin 27.8 PG (27.0-31.0) Mean Corpuscular Hemoglobin Concent 32.3 G/DL (32.0-36.0) Red Cell Distribution Width 18.2 % (11.6-14.8) H Platelet Count 269 K/UL (150-450) Mean Platelet Volume 6.5 FL (6.5-10.1) Neutrophils (%) (Auto) % (45.0-75.0) Lymphocytes (%) (Auto) % (20.0-45.0) Monocytes (%) (Auto) % (1.0-10.0) Eosinophils (%) (Auto) % (0.0-3.0) Basophils (%) (Auto) % (0.0-2.0) Differential Total Cells Counted 100 Neutrophils % (Manual) 66 % (45-75) Lymphocytes % (Manual) 26 % (20-45) Monocytes % (Manual) 5 % (1-10) Eosinophils % (Manual) 3 % (0-3) Basophils % (Manual) 0 % (0-2) Band Neutrophils 0 % (0-8) Platelet Estimate Adequate Platelet Morphology Normal Hypochromasia 1+ Anisocytosis 1+ Sodium Level 140 mEQ/L (135-145) Potassium Level 3.8 mEQ/L (3.4-4.9) Chloride Level 102 mEQ/L (98-107) Carbon Dioxide Level 29 mEQ/L (20-30) Anion Gap 9 (5-15) Blood Urea Nitrogen 11 mg/dL (7-23) Creatinine 0.5 mg/dL (0.5-0.9) Estimat Glomerular Filtration Rate > 60 mL/min (>60) Glucose Level 68 mg/dL (74-106) L Calcium Level 7.0 mg/dL (8.6-10.2) L Total Bilirubin 0.3 mg/dL (0.0-1.2) Aspartate Amino Transf (AST/SGOT) 7 U/L (5-40) Alanine Aminotransferase (ALT/SGPT) 5 U/L (3-33) Alkaline Phosphatase 121 U/L (35-104) H Total Protein 5.2 g/dL (6.6-8.7) L Albumin 1.7 g/dL (3.5-5.2) L Globulin 3.5 g/dL Albumin/Globulin Ratio 0.4 (1.0-2.7) L Current Medications Medications (Trade) Dose Ordered Sig/Pineda Route PRN Reason Start Time Stop Time Status Last Admin Dose Admin Al Hydroxide/Mg Hydroxide (Mylanta) 30 ml EVERY 4 HOURS PRN ORAL dyspepsia 06/01/16 17:00 07/01/16 16:59 Amikacin Protocol 1 ea 1 ea DAILY PRN MISC Per rx protocol 06/02/16 11:00 07/02/16 10:59 Amikacin Sulfate/ Sodium Chloride (Amikin/Sodium Chloride) 114 ml @ 114 mls/hr Q24H IV 06/03/16 16:00 06/10/16 15:59 Dextrose (Dextrose 50%) STAT PRN IV Hypoglycemia 06/02/16 02:15 07/02/16 02:14 Diphenhydramine HCl (Benadryl) 25 mg EVERY 4 HOURS PRN ORAL Itching 06/01/16 17:00 07/01/16 16:59 Diphenhydramine HCl (Benadryl) 50 mg Q6H PRN IVP Itching 06/01/16 20:30 07/01/16 20:29 06/02/16 20:45 Heparin Sodium (Porcine) (Heparin 5000 units/ml) 5,000 units EVERY 12 HOURS SUBQ 06/01/16 21:00 07/01/16 20:59 06/02/16 20:45 Hydromorphone HCl (Dilaudid) 2 mg EVERY 3 HOURS PRN IVP Severe Breakthru Pain (>7) 06/01/16 15:00 06/08/16 14:59 06/02/16 20:01 Magnesium Hydroxide (Mom) 30 ml HSPRN PRN ORAL Constipation 06/02/16 03:00 07/02/16 02:59 Meropenem 1 gm/ Sodium Chloride 110 ml @ 220 mls/hr Q8H IVPB 06/02/16 18:00 06/07/16 17:59 06/02/16 20:15 Ondansetron HCl (Zofran) 4 mg Q6H PRN IVP Nausea & Vomiting 06/01/16 20:30 07/01/16 20:29 06/02/16 18:59 Pantoprazole (Protonix) 40 mg DAILY ORAL 06/02/16 09:00 07/02/16 08:59 06/02/16 09:05 Sodium Chloride (Sodium Chloride 1000ml bag) 1,000 ml @ 100 mls/hr Q10H IVLG 06/01/16 16:00 07/01/16 15:59 06/02/16 14:51 Tigecycline 50 mg/ Dextrose 110 ml @ 220 mls/hr Q12HR@0100,1300 IVPB 06/03/16 16:00 06/08/16 15:59 Zolpidem Tartrate (Ambien) 5 mg HSPRN PRN ORAL Insomnia 06/02/16 02:30 07/02/16 02:29 GRZEGORZ MARTINEZ Jun 02, 2016 21:57
--- NOTE | 2016-06-02 22:08 | Progress Note ---
DATE: 06/02/2016 CARDIOLOGY PROGRESS NOTE SUBJECTIVE: The patient is afebrile. She is more comfortable. She continues on antibiotics. Electrolytes are being replaced as well as packed red blood cell transfusion based on clinical parameters. The patient has a PICC line indwelling for intravenous therapy. OBJECTIVE: VITAL SIGNS: Blood pressure 84/51 to 161/98, heart rate 88 to 108, and respiratory rate 18 to 20. She has no fevers. NECK: Supple. LUNGS: Clear. CARDIAC: Regular. Normal S1 and S2 with no murmur. ABDOMEN: Soft. EXTREMITIES: Without edema. IMPRESSION: 1. Secondary sinus tachycardia, improving. 2. Anemia of chronic disease. 3. Sepsis with osteomyelitis. 4. Acute on chronic renal failure. 5. Poor intravenous access, now with indwelling PICC line. 6. Chronic pain syndrome and narcotic dependence. PLAN: 1. Antibiotics. 2. Skin care. 3. Transfuse if less than 8 g hemoglobin. 4. Continue beta-bob with titration. 5. Maintain adequate hydration based on intakes and outputs. 6. Replace electrolytes as needed. Karthik Parra M.D. DR: FELICITA JOB#: [id number] CC:
[2016-06-03] MEDS: Meropenem 1 GM in NS 110 ML IVPB SCH ×3 (01:42→17:07)
--- NOTE | 2016-06-03 02:38 | Consultation ---
DATE OF CONSULTATION: 06/01/2016 CARDIOLOGY CONSULTATION: CONSULTING PHYSICIAN: Karthik Parra M.D. REQUESTING PHYSICIAN: Thanh Glover M.D. REASON FOR CONSULTATION: Tachycardia. HISTORY OF PRESENT ILLNESS: This is a 41-year-old female. She was hospitalized last month due to skin infection wounds and osteomyelitis with bacteremia. She has had central venous access for some time. She was discharged to an assisted living facility, but readmitted today for recurring sepsis. Consent has been raised over her tachycardia. I have been asked to assist with cardiovascular care. PAST MEDICAL HISTORY: 1. Diskitis. 2. Osteomyelitis. 3. Bacteremia. 4. Sinus tachycardia. 5. Chronic opioid dependence. 6. Chronic pain syndrome. 7. Anemia of chronic disease. 8. Multiple decubiti. 9. Type 2 diabetes mellitus. ALLERGIES: Iron, codeine, piperacillin, tazobactam, Polymyxin, vancomycin, and cephalosporins. FAMILY HISTORY: Noncontributory. REVIEW OF SYSTEMS: Not presently obtainable. PHYSICAL EXAMINATION: VITAL SIGNS: Temperature is 99.1 degrees, blood pressure 119/76, pulse rate 124, respirations 20, and oxygen saturation 98%. SKIN: Exam is pictured in the chart. HEENT: Conjunctivae are pink. Sclerae are anicteric. Oropharynx is clear. Mucous membranes are dry. NECK: Supple. LUNGS: With good breath sounds. No wheezing. CARDIAC: Regular rhythm. Rapid rate. Normal S1 and S2. No murmur. ABDOMEN: Soft. EXTREMITIES: With trace dependent edema. LABORATORY DATA: White count is 8.8 and hemoglobin 9.1. Sodium is 132, potassium 5.8, chloride 93, bicarbonate 23, BUN 10, and creatinine 0.6. IMPRESSION: 1. Sepsis. 2. Osteomyelitis. 3. Anemia. 4. Dehydration. 5. Hyponatremia. 6. Hyperkalemia. 7. Hypochloremia. 8. Severe protein-calorie malnutrition. 9. Secondary sinus tachycardia. 10. Type 2 diabetes mellitus. PLAN: 1. Nutritional support with protein supplement. 2. Broad-spectrum antibiotics. 3. Saline hydration. 4. Venous Duplex to assess for possible source of pulmonary emboli. 5. Cautious use of beta-blockers with taper based on clinical parameters. 6. Recurring bacteremia may warrant further echocardiographic assessment for vegetation as the patient is at increased risk for endocarditis. Karthik Parra M.D. DR: Joe JOB#: [id number] CC:
[2016-06-03 04:00] VITALS: BP 109/59
[2016-06-03] MEDS: DiphenhydrAMINE 50mg/ml Inj IVP PRN ×3 (04:16→20:10)
--- NOTE | 2016-06-03 07:23 | General Progress Note ---
Assessment/Plan Assessment/Plan IMPRESSION: 1. lyte imbalance. 2. paraplegia 3. Acute renal failure. 4. Discitis. 5. Osteomyelitis. 6. History of bacteremia. 7. Chronic opiate/narcotic dependence. 8. Anemia. 9. hyperglycemia 10. Anion gap. 11. bacteremia PLAN ID noted plastics eval discussed transfusion ordered card evaluation appreciated pain control nutrition home dc when stable at present, concern of recurrent positive blood cultures impression, plan, and exam edited and reviewed in detail care discussed with RN Subjective Allergies: Coded Allergies: CEFTRIAXONE (Verified Allergy, Intermediate, SOB, HR-140bpm, face swollen , pt became red, 10/24/15) CODEINE (Verified Allergy, Intermediate, SWELLING, 01/03/11) LATEX (Verified Allergy, Intermediate, SWELLING, 01/03/11) PIPERACILLIN (Verified Allergy, Intermediate, Itching, 08/29/15) 08/29/15 tolerates Ceftaroline TAZOBACTAM (Verified Allergy, Intermediate, Itching, 01/29/15) POLYMYXIN B (Verified Allergy, Mild, Rash, 04/08/16) Suspected allergy reported by VANCOMYCIN (Verified Allergy, Mild, 07/15/14) ASPARAGINASE (Verified Allergy, Unknown, 01/28/14) CEFUROXIME (Unverified Allergy, Unknown, 04/19/16) IRON (Verified Allergy, Unknown, 01/28/14) Subjective PICC in place all noted d/w ID blood cultures again positive Objective Last 24 Hour Vital Signs Date Time Temp Pulse Resp B/P Pulse Ox O2 Delivery O2 Flow Rate FiO2 06/03/16 04:00 98.8 97 20 109/59 98 Room Air 06/02/16 23:59 98.2 102 20 99/48 98 Room Air 06/02/16 20:00 98.1 103 20 112/70 Room Air 06/02/16 16:00 97.7 100 16 97/60 100 Room Air 06/02/16 12:49 96.6 06/02/16 12:14 96.6 98 18 106/58 100 Room Air 06/02/16 08:00 98.2 88 18 161/98 98 Room Air Intake and Output 06/02/16 06/03/16 19:00 07:00 Intake Total 1860 ml 1545 ml Balance 1860 ml 1545 ml Intake Oral 960 ml 360 ml IV Total 900 ml 1185 ml # Voids 2 2 Laboratory Tests 06/02/16 07:30: White Blood Count 5.8, Red Blood Count 2.68L, Hemoglobin 7.5L, Hematocrit 23.1L , Mean Corpuscular Volume 86, Mean Corpuscular Hemoglobin 27.8, Mean Corpuscular Hemoglobin Concent 32.3, Red Cell Distribution Width 18.2H, Platelet Count 269, Mean Platelet Volume 6.5, Neutrophils (%) (Auto) , Lymphocytes (%) (Auto) , Monocytes (%) (Auto) , Eosinophils (%) (Auto) , Basophils (%) (Auto) , Differential Total Cells Counted 100, Neutrophils % ( Manual) 66, Lymphocytes % (Manual) 26, Monocytes % (Manual) 5, Eosinophils % ( Manual) 3, Basophils % (Manual) 0, Band Neutrophils 0, Platelet Estimate Adequate, Platelet Morphology Normal, Hypochromasia 1+, Anisocytosis 1+, Sodium Level 140, Potassium Level 3.8, Chloride Level 102, Carbon Dioxide Level 29, Anion Gap 9, Blood Urea Nitrogen 11, Creatinine 0.5, Estimat Glomerular Filtration Rate > 60, Glucose Level 68L, Calcium Level 7.0L, Total Bilirubin 0.3 , Aspartate Amino Transf (AST/SGOT) 7, Alanine Aminotransferase (ALT/SGPT) 5, Alkaline Phosphatase 121H, Total Protein 5.2L, Albumin 1.7L, Globulin 3.5, Albumin/Globulin Ratio 0.4L 06/03/16 04:00: Random Amikacin Level 13.7 Height (Feet): 5 Height (Inches): 5.00 Weight (Pounds): 190 Objective GENERAL: A well developed female lying comfortable. The patient is alert and oriented. HEENT: Negative. NECK: Supple. No adenopathy. Carotids 2+. LUNGS: Clear. Symmetric. without rhonchi or wheeze CARDIAC: S2. Regular rate and rhythm. Sinus tachycardia.without MRG ABDOMEN: Soft and nontender. obese; no HSM EXTREMITIES: No cyanosis or clubbing. There is no lower extremity edema. NEUROLOGIC: Grossly nonfocal, paraplegic LUANN MICHEL Jun 03, 2016 07:23
[2016-06-03 08:12] VITALS: BP 108/70
[2016-06-03] MEDS: Heparin 5000 units/ml inj SUBQ SCH ×2 (09:50→20:10)
[2016-06-03 12:02] VITALS: BP 109/53
--- NOTE | 2016-06-03 15:28 | Cardiology Report ---
APPROVED REPORT EKG Measurement Heart [id number] Sinus tachycardia Nonspecific T wave abnormality Abnormal ECG
[2016-06-03] MEDS: Tigecycline 50 MG in D5W 110 ML IVPB SCH (15:57)
[2016-06-03 16:00] VITALS: BP 106/62
--- NOTE | 2016-06-03 17:59 | Infectious Diseases Prog Note ---
Assessment/Plan Assessment/Plan ASSESSMENT AND PLAN: 1. e.coli/morganella, klebsiella/polymicrobial sacral wound infection, high suspicion for osteo, ct abdomen and pelvis with possible lumbar spine osteo/ discitis - finish course of meropenem and tygacil for 5 days more (would have had at least 6 weeks of abx) - wound care per protocol - plastic surgery evaluation noted 2. gram neg bacteremia with sepsis - ? line infection, old line removed, new picc (day # 3), ? sbe, recurrent bacteremia, wbc scan pending/ordered - await id of blood culture 3. tachycardia 4. n/v - per primary 5. History of osteoarthritis and treatment. 6. Colostomy. 7. Paraplegia. 8. Anemia. 9. ? diabetes - patient denies dm hx, bs elevated only with infection per pt 10. Chronic pain management and chronic pain syndrome, anxiety 11. History of cholelithiasis. 12. Pain management for primary, opiate dependency 13. Multiple allergies to asparaginase, Rocephin, codeine, iron, Latex, piperacillin, tazobactam, and vancomycin, ? polymyxin 14. wound care per protocol and plastic surgery 15. The case was discussed with RN 16. The case was discussed with the patient. 17. fh-nc, sh-negative, mar noted 18. notes and records reviewed 19. communicated with Dr. Healy 20. d/w patient and answered questions 21. vre colonization and isolation Subjective Subjective Constitutional: Denies: fever HEENT: Denies: congestion Respiratory: Denies: shortness of breath Cardiovascular: Denies: chest pain Gastrointestinal/Abdominal: Denies: nausea Neurologic: Denies: headache Psychiatric: Denies: depression Skin: Reports: rash - rash - less itching Hematologic: Denies: bleeding Musculoskeletal: Denies: pain Allergies: Coded Allergies: CEFTRIAXONE (Verified Allergy, Intermediate, SOB, HR-140bpm, face swollen , pt became red, 10/24/15) CODEINE (Verified Allergy, Intermediate, SWELLING, 01/03/11) LATEX (Verified Allergy, Intermediate, SWELLING, 01/03/11) PIPERACILLIN (Verified Allergy, Intermediate, Itching, 08/29/15) 08/29/15 tolerates Ceftaroline TAZOBACTAM (Verified Allergy, Intermediate, Itching, 01/29/15) POLYMYXIN B (Verified Allergy, Mild, Rash, 12/29/16) Suspected allergy reported by VANCOMYCIN (Verified Allergy, Mild, 07/15/14) ASPARAGINASE (Verified Allergy, Unknown, 01/28/14) CEFUROXIME (Unverified Allergy, Unknown, 04/19/16) IRON (Verified Allergy, Unknown, 01/28/14) Objective Vital Signs Last 24 Hour Vital Signs Date Time Temp Pulse Resp B/P Pulse Ox O2 Delivery O2 Flow Rate FiO2 06/03/16 16:00 97.5 98 17 106/62 Room Air 06/03/16 13:52 97.7 06/03/16 12:02 97.7 88 20 109/53 95 Room Air 06/03/16 08:12 97.5 90 20 108/70 95 Room Air 06/03/16 04:00 98.8 97 20 109/59 98 Room Air 06/02/16 23:59 98.2 102 20 99/48 98 Room Air 06/02/16 20:00 98.1 103 20 112/70 Room Air Height (Feet): 5 Height (Inches): 5.00 Weight (Pounds): 190 General Appearance: no acute distress HEENT: normocephalic, atraumatic, anicteric, mucous membranes moist, PERRL, EOMI, pharynx normal, supple, no JVD Respiratory/Chest: lungs clear, normal breath sounds, no respiratory distress, no accessory muscle use Cardiovascular: normal rate, regular rhythm, no gallop/murmur, no JVD Abdomen: normal bowel sounds, soft, non tender, no organomegaly, non distended Genitourinary: other - no bay Extremities: no cyanosis Skin: rash - no change in rash 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: yarn man II-XII grossly normal, alert, oriented x 3, responsive Lymphatic: no neck adenopathy Musculoskeletal: no effusion Objective s/p post picc line no other imaging previous imaging noted Microbiology Date/Time Source Procedure Growth Status 06/01/16 16:45 Blood Blood Culture - Preliminary Gram Negative Bacillus 1 Resulted 05/31/16 18:00 Nasal Nares MRSA Culture - Final NO METHICILLIN RESISTANT STAPH AUREUS... Complete 05/31/16 18:00 Rectum VRE Culture - Final Enterococcus Faecium - Vre Complete Labs Test 06/01/16 11:15 06/02/16 07:30 06/03/16 04:00 Sodium Level 137 mEQ/L (135-145) 140 mEQ/L (135-145) Potassium Level 4.3 mEQ/L (3.4-4.9) 3.8 mEQ/L (3.4-4.9) Chloride Level 97 mEQ/L (98-107) 102 mEQ/L (98-107) Carbon Dioxide Level 26 mEQ/L (20-30) 29 mEQ/L (20-30) Anion Gap 14 (5-15) 9 (5-15) Blood Urea Nitrogen 10 mg/dL (7-23) 11 mg/dL (7-23) Creatinine 0.5 mg/dL (0.5-0.9) 0.5 mg/dL (0.5-0.9) Estimat Glomerular Filtration Rate > 60 mL/min (>60) > 60 mL/min (>60) Glucose Level 100 mg/dL (74-106) 68 mg/dL (74-106) Calcium Level 7.7 mg/dL (8.6-10.2) 7.0 mg/dL (8.6-10.2) White Blood Count 5.8 K/UL (4.8-10.8) Red Blood Count 2.68 M/UL (4.20-5.40) Hemoglobin 7.5 G/DL (12.0-16.0) Hematocrit 23.1 % (37.0-47.0) Mean Corpuscular Volume 86 FL (80-99) Mean Corpuscular Hemoglobin 27.8 PG (27.0-31.0) Mean Corpuscular Hemoglobin Concent 32.3 G/DL (32.0-36.0) Red Cell Distribution Width 18.2 % (11.6-14.8) Platelet Count 269 K/UL (150-450) Mean Platelet Volume 6.5 FL (6.5-10.1) Neutrophils (%) (Auto) % (45.0-75.0) Lymphocytes (%) (Auto) % (20.0-45.0) Monocytes (%) (Auto) % (1.0-10.0) Eosinophils (%) (Auto) % (0.0-3.0) Basophils (%) (Auto) % (0.0-2.0) Differential Total Cells Counted 100 Neutrophils % (Manual) 66 % (45-75) Lymphocytes % (Manual) 26 % (20-45) Monocytes % (Manual) 5 % (1-10) Eosinophils % (Manual) 3 % (0-3) Basophils % (Manual) 0 % (0-2) Band Neutrophils 0 % (0-8) Platelet Estimate Adequate Platelet Morphology Normal Hypochromasia 1+ Anisocytosis 1+ Total Bilirubin 0.3 mg/dL (0.0-1.2) Aspartate Amino Transf (AST/SGOT) 7 U/L (5-40) Alanine Aminotransferase (ALT/SGPT) 5 U/L (3-33) Alkaline Phosphatase 121 U/L (35-104) Total Protein 5.2 g/dL (6.6-8.7) Albumin 1.7 g/dL (3.5-5.2) Globulin 3.5 g/dL Albumin/Globulin Ratio 0.4 (1.0-2.7) Random Amikacin Level 13.7 ug/mL Laboratory Tests Test 06/03/16 04:00 Random Amikacin Level 13.7 ug/mL Current Medications Medications (Trade) Dose Ordered Sig/Pineda Route PRN Reason Start Time Stop Time Status Last Admin Dose Admin Al Hydroxide/Mg Hydroxide (Mylanta) 30 ml EVERY 4 HOURS PRN ORAL dyspepsia 06/01/16 17:00 07/01/16 16:59 Amikacin Protocol 1 ea 1 ea DAILY PRN MISC Per rx protocol 06/02/16 11:00 07/02/16 10:59 Amikacin Sulfate/ Sodium Chloride (Amikin/Sodium Chloride) 114 ml @ 114 mls/hr Q36H IV 06/04/16 08:00 06/11/16 07:59 Dextrose (Dextrose 50%) STAT PRN IV Hypoglycemia 06/02/16 02:15 07/02/16 02:14 Diphenhydramine HCl (Benadryl) 25 mg EVERY 4 HOURS PRN ORAL Itching 06/01/16 17:00 07/01/16 16:59 Diphenhydramine HCl (Benadryl) 50 mg Q6H PRN IVP Itching 06/01/16 20:30 07/01/16 20:29 06/03/16 10:02 Heparin Sodium (Porcine) (Heparin 5000 units/ml) 5,000 units EVERY 12 HOURS SUBQ 06/01/16 21:00 07/01/16 20:59 06/03/16 09:50 Hydromorphone HCl (Dilaudid) 2 mg EVERY 3 HOURS PRN IVP Severe Breakthru Pain (>7) 06/01/16 15:00 06/08/16 14:59 06/03/16 15:57 Magnesium Hydroxide (Mom) 30 ml HSPRN PRN ORAL Constipation 06/02/16 03:00 07/02/16 02:59 Meropenem 1 gm/ Sodium Chloride 110 ml @ 220 mls/hr Q8H IVPB 06/02/16 18:00 06/07/16 17:59 06/03/16 17:07 Ondansetron HCl (Zofran) 4 mg Q6H PRN IVP Nausea & Vomiting 06/01/16 20:30 07/01/16 20:29 06/02/16 18:59 Pantoprazole (Protonix) 40 mg DAILY ORAL 06/02/16 09:00 07/02/16 08:59 06/03/16 09:51 Sodium Chloride (Sodium Chloride 1000ml bag) 1,000 ml @ 100 mls/hr Q10H IVLG 06/01/16 16:00 07/01/16 15:59 06/03/16 14:04 Tigecycline 50 mg/ Dextrose 110 ml @ 220 mls/hr Q12HR@0100,1300 IVPB 06/03/16 16:00 06/08/16 15:59 06/03/16 15:57 Zolpidem Tartrate (Ambien) 5 mg HSPRN PRN ORAL Insomnia 06/02/16 02:30 07/02/16 02:29 GRZEGORZ MARTINEZ Jun 03, 2016 17:59
[2016-06-03 20:00] VITALS: BP 105/61
[2016-06-04] VITALS: BP 128/70
--- NOTE | 2016-06-04 00:28 | Progress Note ---
DATE: 06/03/2016 CARDIOLOGY PROGRESS NOTE SUBJECTIVE: The patient had received a packed red blood cell transfusion. She continues to require analgesics almost around the clock. OBJECTIVE: VITAL SIGNS: Blood pressure of 109/59, pulse 102, respirations 20, and afebrile. LUNGS: Bilateral breath sounds. HEART: Regular rhythm. Rapid rate. Normal S1, S2. ABDOMEN: Soft. No edema. PICC line site with no drainage. LABORATORY DATA: Blood culture positive for Gram-negative bacillus. White count 5.8, hemoglobin 7.5 (pre-transfusion). Chemistry panel pending. IMPRESSION: 1. Bacteremia. 2. Increased risk for endocarditis. 3. Anemia. 4. Secondary sinus tachycardia. 5. Severe protein-calorie malnutrition. PLAN: 1. Transfuse to maintain hemoglobin above 8 g. 2. Protein supplementation. 3. Antimicrobials. 4. Titrate beta-bob. 5. DVT prophylaxis. Karthik Parra M.D. DR: MAGNO JOB#: [id number] CC:
[2016-06-04] MEDS: Tigecycline 50 MG in D5W 110 ML IVPB SCH ×2 (00:35→14:21)
[2016-06-04] MEDS: Meropenem 1 GM in NS 110 ML IVPB SCH ×3 (01:37→16:30)
[2016-06-04 04:00] VITALS: BP 126/68
[2016-06-04] MEDS: DiphenhydrAMINE 50mg/ml Inj IVP PRN ×3 (05:29→18:37)
[2016-06-04 06:24] LABS: BASOPHILS % (AUTO) 0.5 % (0.0-2.0); EOSINOPHILS % (AUTO) 4.5 % (0.0-3.0); LYMPHOCYTES % (AUTO) 21.1 % (20.0-45.0); MEAN CORPUSCULAR HEMOGLOBIN 28.3 PG (27.0-31.0); MEAN CORPUSCULAR HGB CONC 32.7 G/DL (32.0-36.0); MEAN CORPUSCULAR VOLUME 87 FL (80-99); MEAN PLATELET VOLUME 6.2 FL (6.5-10.1); MONOCYTES % (AUTO) 3.9 % (1.0-10.0); PLATELET COUNT 214 K/UL (150-450); RED BLOOD COUNT 3.02 M/UL (4.20-5.40); WHITE BLOOD COUNT 6.3 K/UL (4.8-10.8)
[2016-06-04 06:51] LABS: ANION GAP 13 (5-15); CALCIUM 6.3 mg/dL (8.6-10.2); CARBON DIOXIDE 23 mEQ/L (20-30); CHLORIDE 104 mEQ/L (98-107); CREATININE 0.7 mg/dL (0.5-0.9); GLOMERULAR FILTRATION RATE > 60 mL/min (>60); HEMOLYSIS 4; POTASSIUM 3.2 mEQ/L (3.4-4.9); SODIUM 140 mEQ/L (135-145)
[2016-06-04] MEDS: Heparin 5000 units/ml inj SUBQ SCH ×2 (07:55→21:00)
[2016-06-04 08:00] VITALS: BP 114/73
[2016-06-04] MEDS ORDERED: Amikacin 1,000 MG in NS 110 ML IV SCH (08:00)
--- NOTE | 2016-06-04 08:56 | General Progress Note ---
Assessment/Plan Assessment/Plan IMPRESSION: 1. lyte imbalance. 2. paraplegia 3. Acute renal failure. 4. Discitis. 5. Osteomyelitis. 6. History of bacteremia. 7. Chronic opiate/narcotic dependence. 8. Anemia. 9. hyperglycemia 10. Anion gap. 11. bacteremia PLAN ID noted and appreciated plastics eval discussed s/p transfusion card evaluation appreciated pain control nutrition home dc when stable and monitor at present, concern of recurrent positive blood cultures discussed impression, plan, and exam edited and reviewed in detail care discussed with RN Subjective Allergies: Coded Allergies: CEFTRIAXONE (Verified Allergy, Intermediate, SOB, HR-140bpm, face swollen , pt became red, 10/24/15) CODEINE (Verified Allergy, Intermediate, SWELLING, 01/03/11) LATEX (Verified Allergy, Intermediate, SWELLING, 01/03/11) PIPERACILLIN (Verified Allergy, Intermediate, Itching, 08/29/15) 08/29/15 tolerates Ceftaroline TAZOBACTAM (Verified Allergy, Intermediate, Itching, 01/29/15) POLYMYXIN B (Verified Allergy, Mild, Rash, 04/08/16) Suspected allergy reported by VANCOMYCIN (Verified Allergy, Mild, 07/15/14) ASPARAGINASE (Verified Allergy, Unknown, 01/28/14) CEFUROXIME (Unverified Allergy, Unknown, 04/19/16) IRON (Verified Allergy, Unknown, 01/28/14) Subjective PICC in place all noted d/w ID HH noted Objective Last 24 Hour Vital Signs Date Time Temp Pulse Resp B/P Pulse Ox O2 Delivery O2 Flow Rate FiO2 06/04/16 08:42 97.7 06/04/16 04:00 97.4 86 18 126/68 95 Room Air 06/04/16 00:00 97.0 91 18 128/70 96 Room Air 06/03/16 20:00 97.7 97 17 105/61 96 Room Air 06/03/16 16:00 97.5 98 17 106/62 Room Air 06/03/16 12:02 97.7 88 20 109/53 95 Room Air Intake and Output 06/03/16 06/04/16 19:00 07:00 Intake Total 1320 ml 1740 ml Balance 1320 ml 1740 ml Intake Oral 480 ml 700 ml IV Total 840 ml 1040 ml Laboratory Tests 06/04/16 04:55: White Blood Count 6.3, Red Blood Count 3.02L, Hemoglobin 8.6L, Hematocrit 26.1L , Mean Corpuscular Volume 87, Mean Corpuscular Hemoglobin 28.3, Mean Corpuscular Hemoglobin Concent 32.7, Red Cell Distribution Width 17.0H, Platelet Count 214, Mean Platelet Volume 6.2L, Neutrophils (%) (Auto) 70.0, Lymphocytes (%) (Auto) 21.1, Monocytes (%) (Auto) 3.9, Eosinophils (%) (Auto) 4.5H, Basophils (%) (Auto) 0.5, Sodium Level 140, Potassium Level 3.2L, Chloride Level 104, Carbon Dioxide Level 23, Anion Gap 13, Blood Urea Nitrogen 11, Creatinine 0.7, Estimat Glomerular Filtration Rate > 60, Glucose Level 79, Calcium Level 6.3L Height (Feet): 5 Height (Inches): 5.00 Weight (Pounds): 190 Objective GENERAL: A well developed female lying comfortable. The patient is alert and oriented. HEENT: Negative. NECK: Supple. No adenopathy. Carotids 2+. LUNGS: Clear. Symmetric. without rhonchi or wheeze CARDIAC: S2. Regular rate and rhythm. Sinus tachycardia.without MRG ABDOMEN: Soft and nontender. obese; no HSM EXTREMITIES: No cyanosis or clubbing. There is no lower extremity edema. NEUROLOGIC: Grossly nonfocal, paraplegic LUANN MICHEL Jun 04, 2016 08:56
--- NOTE | 2016-06-04 14:40 | Diagnostic Imaging Report ---
Indication: 41-year-old female with sacral wound infection Technique: IV administration 317 ?Ci indium-111 labeled autologous white blood cells. Whole-body images obtained at 24 hours Comparison: Reference made to CT scan dated 04/28/2016 Findings: Normal spleen, liver, and bone marrow activity is demonstrated. There is slightly unusual pattern of activity in the region of the pelvis, but this conforms to the configuration of the pelvic bones demonstrated on recent CT and presumably this represents normal marrow activity within the pelvis. No definite focal increased uptake to suggest acute suppurative infection or acute osteomyelitis is demonstrated. There is a photopenic defect in the right knee which could indicate the presence of a prosthesis. Impression: No definite scintigraphic evidence of active infection.
[2016-06-04] MEDS ORDERED: NS 275ml ONE ×2 (15:22→15:37)
[2016-06-04] MEDS ORDERED: Tubing Blood Filter IV ONE (15:22)
[2016-06-04] MEDS ORDERED: Tubing IV Secondary IV ONE ×2 (15:22→15:37)
[2016-06-04 16:00] VITALS: BP 109/56
[2016-06-04 19:00] VITALS: BP 116/71
[2016-06-04] MEDS ORDERED: KCl 10% 20 mEq/15ml liquid ORAL ONE (23:30)
[2016-06-05] VITALS: BP 114/69
[2016-06-05] MEDS: Tigecycline 50 MG in D5W 110 ML IVPB SCH ×2 (00:16→14:40)
[2016-06-05] MEDS: Meropenem 1 GM in NS 110 ML IVPB SCH ×2 (01:15→09:20)
--- NOTE | 2016-06-05 02:18 | Progress Note ---
DATE: 06/04/2016 CARDIOLOGY PROGRESS NOTE SUBJECTIVE: The patient is on around the clock pain therapy. OBJECTIVE: VITAL SIGNS: Afebrile, blood pressure 126/68, pulse 86, and respirations 18. NECK: Supple. LUNGS: Clear. CARDIAC: Regular. Normal S1, S2. No murmur. ABDOMEN: Soft with trace edema. SKIN: Pictured. LABORATORY DATA: Indium scan revealed no active infection. White count 6.3, hemoglobin 8.6. Potassium 3.2, BUN 11, and creatinine 0.7. Albumin 1.7. IMPRESSION: 1. Bacteremia. 2. Sepsis. 3. Hypokalemia. 4. Secondary sinus tachycardia, now recovered. 5. Sepsis, improving. 6. No echocardiographic signs of endocarditis. 7. Severe protein-calorie malnutrition. PLAN: 1. Hydration. 2. Antibiotics. 3. Potassium replacement. 4. Check magnesium. 5. Protein supplementation. 6. DVT prophylaxis. Karthik Parra M.D. DR: MAGNO JOB#: [id number] CC:
[2016-06-05] MEDS: DiphenhydrAMINE 50mg/ml Inj IVP PRN ×3 (03:06→16:42)
[2016-06-05 04:00] VITALS: BP 125/65
--- NOTE | 2016-06-05 06:38 | Progress Note ---
DATE: 06/05/2016 CARDIOLOGY PROGRESS NOTE SUBJECTIVE: The patient remains without new complaints. She continued on pain medications around the clock. OBJECTIVE: VITAL SIGNS: Blood pressure 125/65, pulse 98, respiratory rate 18, afebrile. LUNGS: Bilateral breath sounds. HEART: Regular rhythm and rate. Normal S1 and S2. ABDOMEN: Soft. EXTREMITIES: No edema. SKIN: Wound sites are pictured in the chart. IMPRESSION: 1. Acinetobacter bacteremia, cellulitis, and wounds. 2. Secondary sinus tachycardia, increased risk for endocarditis although pathogen for valve infection. PLAN: 1. Antibiotics, wound care, and pain control. 2. Maintain adequate hydration. 3. No role for additional antiarrhythmics. 4. Await echocardiogram. Karthik Parra M.D. DR: Jasmin JOB#: [id number] CC:
[2016-06-05 07:21] LABS: BASOPHILS % (AUTO) 0.4 % (0.0-2.0); EOSINOPHILS % (AUTO) 6.2 % (0.0-3.0); LYMPHOCYTES % (AUTO) 24.3 % (20.0-45.0); MEAN CORPUSCULAR HEMOGLOBIN 28.3 PG (27.0-31.0); MEAN CORPUSCULAR HGB CONC 32.6 G/DL (32.0-36.0); MEAN CORPUSCULAR VOLUME 87 FL (80-99); MEAN PLATELET VOLUME 5.9 FL (6.5-10.1); MONOCYTES % (AUTO) 4.6 % (1.0-10.0); NEUTROPHILS % (AUTO) 64.5 % (45.0-75.0); PLATELET COUNT 239 K/UL (150-450); RED BLOOD COUNT 3.04 M/UL (4.20-5.40); RED CELL DISTRIBUTION WIDTH 17.6 % (11.6-14.8); WHITE BLOOD COUNT 6.3 K/UL (4.8-10.8)
[2016-06-05 07:47] LABS: ALANINE AMINOTRANSFERASE 5 U/L (3-33); ALBUMIN/GLOBULIN RATIO 0.4 (1.0-2.7); ANION GAP 13 (5-15); ASPARTATE AMINO TRANSFERASE 6 U/L (5-40); CALCIUM 7.1 mg/dL (8.6-10.2); CARBON DIOXIDE 24 mEQ/L (20-30); CHLORIDE 104 mEQ/L (98-107); CREATININE 0.9 mg/dL (0.5-0.9); GLOMERULAR FILTRATION RATE > 60 mL/min (>60); HEMOLYSIS 2; MAGNESIUM 1.1 mg/dL (1.7-2.5); POTASSIUM 3.4 mEQ/L (3.4-4.9); SODIUM 141 mEQ/L (135-145); TOTAL PROTEIN 4.8 g/dL (6.6-8.7)
[2016-06-05] MEDS: Heparin 5000 units/ml inj SUBQ SCH ×2 (08:03→21:13)
[2016-06-05 08:08] VITALS: BP 132/78
[2016-06-05] MEDS ORDERED: NS 275ml ONE (09:33)
--- NOTE | 2016-06-05 11:10 | General Progress Note ---
Assessment/Plan Assessment/Plan IMPRESSION: 1. lyte imbalance. 2. paraplegia 3. Acute renal failure. 4. Discitis. 5. Osteomyelitis. 6. History of bacteremia. 7. Chronic opiate/narcotic dependence. 8. Anemia. 9. hyperglycemia 10. Anion gap. 11. bacteremia PLAN ID noted and appreciated plastics noted wound noted replace mag pain control nutrition home dc when stable and monitor at present, concern of recurrent positive blood cultures discussed MDR sensitive to Tygacil ID clearance needed ongoing wound care impression, plan, and exam edited and reviewed in detail care discussed with RN Subjective Allergies: Coded Allergies: CEFTRIAXONE (Verified Allergy, Intermediate, SOB, HR-140bpm, face swollen , pt became red, 10/24/15) CODEINE (Verified Allergy, Intermediate, SWELLING, 01/03/11) LATEX (Verified Allergy, Intermediate, SWELLING, 01/03/11) PIPERACILLIN (Verified Allergy, Intermediate, Itching, 08/29/15) 08/29/15 tolerates Ceftaroline TAZOBACTAM (Verified Allergy, Intermediate, Itching, 01/29/15) POLYMYXIN B (Verified Allergy, Mild, Rash, 04/08/16) Suspected allergy reported by VANCOMYCIN (Verified Allergy, Mild, 07/15/14) ASPARAGINASE (Verified Allergy, Unknown, 01/28/14) CEFUROXIME (Unverified Allergy, Unknown, 04/19/16) IRON (Verified Allergy, Unknown, 01/28/14) Subjective PICC in place all noted d/w ID mag low wants to go home Objective Last 24 Hour Vital Signs Date Time Temp Pulse Resp B/P Pulse Ox O2 Delivery O2 Flow Rate FiO2 06/05/16 08:34 98.4 06/05/16 08:08 98.4 85 20 132/78 98 Room Air 06/05/16 04:00 97.9 98 18 125/65 99 Room Air 06/05/16 00:00 98.1 97 18 114/69 97 Room Air 06/04/16 19:00 98.1 98 20 116/71 99 Room Air 06/04/16 16:00 98.2 96 18 109/56 100 Room Air Intake and Output 06/04/16 06/05/16 19:00 07:00 Intake Total 1944 ml 1980 ml Balance 1944 ml 1980 ml Intake Oral 480 ml 980 ml IV Total 1464 ml 1000 ml # Voids 2 4 Laboratory Tests 06/05/16 04:00: White Blood Count 6.3, Red Blood Count 3.04L, Hemoglobin 8.6L, Hematocrit 26.4L , Mean Corpuscular Volume 87, Mean Corpuscular Hemoglobin 28.3, Mean Corpuscular Hemoglobin Concent 32.6, Red Cell Distribution Width 17.6H, Platelet Count 239, Mean Platelet Volume 5.9L, Neutrophils (%) (Auto) 64.5, Lymphocytes (%) (Auto) 24.3, Monocytes (%) (Auto) 4.6, Eosinophils (%) (Auto) 6.2H, Basophils (%) (Auto) 0.4 06/05/16 05:00: Sodium Level 141, Potassium Level 3.4, Chloride Level 104, Carbon Dioxide Level 24, Anion Gap 13, Blood Urea Nitrogen 14, Creatinine 0.9, Estimat Glomerular Filtration Rate > 60, Glucose Level 94, Calcium Level 7.1L, Magnesium Level 1.1L , Total Bilirubin < 0.2, Aspartate Amino Transf (AST/SGOT) 6, Alanine Aminotransferase (ALT/SGPT) 5, Alkaline Phosphatase 139H, Total Protein 4.8L, Albumin 1.4L, Globulin 3.4, Albumin/Globulin Ratio 0.4L Height (Feet): 5 Height (Inches): 5.00 Weight (Pounds): 190 Objective GENERAL: A well developed female lying comfortable. The patient is alert and oriented. HEENT: Negative. NECK: Supple. No adenopathy. Carotids 2+. LUNGS: Clear. Symmetric. without rhonchi or wheeze CARDIAC: S2. Regular rate and rhythm. Sinus tachycardia.without MRG ABDOMEN: Soft and nontender. obese; no HSM EXTREMITIES: No cyanosis or clubbing. There is no lower extremity edema. NEUROLOGIC: Grossly nonfocal, paraplegic LUANN MICHEL Jun 05, 2016 11:10
[2016-06-05 12:00] VITALS: BP 126/72
--- NOTE | 2016-06-05 15:37 | Infectious Diseases Prog Note ---
Assessment/Plan Assessment/Plan ASSESSMENT AND PLAN: 1. acinetobacter bacteremia - this is 3rd episode including previous admission, lines have been changed and abx given multiple times, ? endocarditis, ? spinal epidural abscess/discitis, ? wound/osteo source - change abx to tygacil plus polymyxin - unclear if patient had reaction to polymyxin before, pt has off on on rash even off polymyxin - previous echo - TTE - without vegetation mentioned - indium scan negative - cardiology evaluation and strongly consider SULAIMAN - will order MRI lumbar spine - previous abdominal ct showed possible lumbar spine discitis, no abscess mentioned - spine surgery, if possible 2. polymicrobial sacral wound infection and osteo - finish abx course, plastic surgery f/u 3. tachycardia 4. n/v - per primary 5. History of osteoarthritis and treatment. 6. Colostomy. 7. Paraplegia. 8. Anemia. 9. ? diabetes - patient denies dm hx, bs elevated only with infection per pt 10. Chronic pain management and chronic pain syndrome, anxiety 11. History of cholelithiasis. 12. Pain management for primary, opiate dependency 13. Multiple allergies to asparaginase, Rocephin, codeine, iron, Latex, piperacillin, tazobactam, and vancomycin, ? polymyxin 14. wound care per protocol and plastic surgery 15. The case was discussed with RN 16. The case was discussed with the patient. 17. fh-nc, sh-negative, mar noted 18. notes and records reviewed 19. vre colonization and isolation 20. d/w patient and sister at length, answered questions 21. communicated with Dr. Healy 22. d/w pharmacy 23. time spent - 43 minutes Subjective Subjective Constitutional: Reports: fatigue, Denies: fever HEENT: Denies: congestion Respiratory: Denies: shortness of breath Cardiovascular: Denies: chest pain Gastrointestinal/Abdominal: Reports: other - + colostomy, Denies: nausea, vomiting Genitourinary: Reports: other - no bay Neurologic: Denies: headache Psychiatric: Denies: depression Skin: Reports: other - no change in rash, rash Hematologic: Denies: bleeding Musculoskeletal: Denies: pain Allergies: Coded Allergies: CEFTRIAXONE (Verified Allergy, Intermediate, SOB, HR-140bpm, face swollen , pt became red, 10/24/15) CODEINE (Verified Allergy, Intermediate, SWELLING, 01/03/11) LATEX (Verified Allergy, Intermediate, SWELLING, 01/03/11) PIPERACILLIN (Verified Allergy, Intermediate, Itching, 08/29/15) 08/29/15 tolerates Ceftaroline TAZOBACTAM (Verified Allergy, Intermediate, Itching, 01/29/15) POLYMYXIN B (Verified Allergy, Mild, Rash, 04/08/16) Suspected allergy reported by VANCOMYCIN (Verified Allergy, Mild, 07/15/14) ASPARAGINASE (Verified Allergy, Unknown, 01/28/14) CEFUROXIME (Unverified Allergy, Unknown, 04/19/16) IRON (Verified Allergy, Unknown, 01/28/14) Objective Vital Signs Last 24 Hour Vital Signs Date Time Temp Pulse Resp B/P Pulse Ox O2 Delivery O2 Flow Rate FiO2 06/05/16 14:52 97.8 06/05/16 12:00 97.8 79 18 126/72 94 Nasal Cannula 06/05/16 08:08 98.4 85 20 132/78 98 Room Air 06/05/16 04:00 97.9 98 18 125/65 99 Room Air 06/05/16 00:00 98.1 97 18 114/69 97 Room Air 06/04/16 19:00 98.1 98 20 116/71 99 Room Air 06/04/16 16:00 98.2 96 18 109/56 100 Room Air Height (Feet): 5 Height (Inches): 5.00 Weight (Pounds): 190 General Appearance: no acute distress HEENT: normocephalic, atraumatic, anicteric, mucous membranes moist, PERRL, EOMI, pharynx normal, supple, no JVD Respiratory/Chest: lungs clear, normal breath sounds, no respiratory distress, no accessory muscle use Cardiovascular: normal rate, regular rhythm, no gallop/murmur, no JVD Abdomen: normal bowel sounds, soft, non tender, no organomegaly, non distended Genitourinary: other - no bay Extremities: no cyanosis Skin: rash - no change in rash 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: line palletizer II-XII grossly normal, alert, responsive, motor weakness Lymphatic: no neck adenopathy Musculoskeletal: no effusion Objective s/p post picc line no other imaging previous imaging noted Microbiology Date/Time Source Procedure Growth Status 06/02/16 07:30 Blood Blood Culture - Preliminary NO GROWTH AFTER 48 HOURS Resulted 05/31/16 18:00 Nasal Nares MRSA Culture - Final NO METHICILLIN RESISTANT STAPH AUREUS... Complete 05/31/16 18:00 Rectum VRE Culture - Final Enterococcus Faecium - Vre Complete blood culture - acinetobacter Laboratory Tests Test 06/05/16 04:00 06/05/16 05:00 White Blood Count 6.3 K/UL (4.8-10.8) Red Blood Count 3.04 M/UL (4.20-5.40) L Hemoglobin 8.6 G/DL (12.0-16.0) L Hematocrit 26.4 % (37.0-47.0) L Mean Corpuscular Volume 87 FL (80-99) Mean Corpuscular Hemoglobin 28.3 PG (27.0-31.0) Mean Corpuscular Hemoglobin Concent 32.6 G/DL (32.0-36.0) Red Cell Distribution Width 17.6 % (11.6-14.8) H Platelet Count 239 K/UL (150-450) Mean Platelet Volume 5.9 FL (6.5-10.1) L Neutrophils (%) (Auto) 64.5 % (45.0-75.0) Lymphocytes (%) (Auto) 24.3 % (20.0-45.0) Monocytes (%) (Auto) 4.6 % (1.0-10.0) Eosinophils (%) (Auto) 6.2 % (0.0-3.0) H Basophils (%) (Auto) 0.4 % (0.0-2.0) Sodium Level 141 mEQ/L (135-145) Potassium Level 3.4 mEQ/L (3.4-4.9) Chloride Level 104 mEQ/L (98-107) Carbon Dioxide Level 24 mEQ/L (20-30) Anion Gap 13 (5-15) Blood Urea Nitrogen 14 mg/dL (7-23) Creatinine 0.9 mg/dL (0.5-0.9) Estimat Glomerular Filtration Rate > 60 mL/min (>60) Glucose Level 94 mg/dL (74-106) Calcium Level 7.1 mg/dL (8.6-10.2) L Magnesium Level 1.1 mg/dL (1.7-2.5) L Total Bilirubin < 0.2 mg/dL (0.0-1.2) Aspartate Amino Transf (AST/SGOT) 6 U/L (5-40) Alanine Aminotransferase (ALT/SGPT) 5 U/L (3-33) Alkaline Phosphatase 139 U/L (35-104) H Total Protein 4.8 g/dL (6.6-8.7) L Albumin 1.4 g/dL (3.5-5.2) L Globulin 3.4 g/dL Albumin/Globulin Ratio 0.4 (1.0-2.7) L Current Medications Medications (Trade) Dose Ordered Sig/Pineda Route PRN Reason Start Time Stop Time Status Last Admin Dose Admin Al Hydroxide/Mg Hydroxide (Mylanta) 30 ml EVERY 4 HOURS PRN ORAL dyspepsia 06/01/16 17:00 07/01/16 16:59 Amikacin Protocol 1 ea 1 ea DAILY PRN MISC Per rx protocol 06/02/16 11:00 07/02/16 10:59 Amikacin Sulfate 1000 mg/Sodium Chloride 114 ml @ 114 mls/hr Q36H IV 06/04/16 08:00 06/11/16 07:59 06/04/16 08:16 Dextrose (Dextrose 50%) STAT PRN IV Hypoglycemia 06/02/16 02:15 07/02/16 02:14 Diphenhydramine HCl (Benadryl) 25 mg EVERY 4 HOURS PRN ORAL Itching 06/01/16 17:00 07/01/16 16:59 Diphenhydramine HCl (Benadryl) 50 mg Q6H PRN IVP Itching 06/01/16 20:30 07/01/16 20:29 06/05/16 09:20 Heparin Sodium (Porcine) (Heparin 5000 units/ml) 5,000 units EVERY 12 HOURS SUBQ 06/01/16 21:00 07/01/16 20:59 06/03/16 20:10 Hydromorphone HCl (Dilaudid) 2 mg EVERY 3 HOURS PRN IVP Severe Breakthru Pain (>7) 06/01/16 15:00 06/08/16 14:59 06/05/16 14:22 Magnesium Hydroxide (Mom) 30 ml HSPRN PRN ORAL Constipation 06/02/16 03:00 07/02/16 02:59 Meropenem/Sodium Chloride (Merrem/Sodium Chloride) 55 ml @ 110 mls/hr Q8H IVPB 06/05/16 18:00 06/10/16 17:59 Ondansetron HCl (Zofran) 4 mg Q6H PRN IVP Nausea & Vomiting 06/01/16 20:30 07/01/16 20:29 06/05/16 11:15 Pantoprazole (Protonix) 40 mg DAILY ORAL 06/02/16 09:00 07/02/16 08:59 06/05/16 09:20 Sodium Chloride (Sodium Chloride 1000ml bag) 1,000 ml @ 100 mls/hr Q10H IVLG 06/01/16 16:00 07/01/16 15:59 06/05/16 12:00 Tigecycline 50 mg/ Dextrose 110 ml @ 220 mls/hr Q12HR@0100,1300 IVPB 06/03/16 16:00 06/08/16 15:59 06/05/16 14:40 Zolpidem Tartrate (Ambien) 5 mg HSPRN PRN ORAL Insomnia 06/02/16 02:30 07/02/16 02:29 GRZEGORZ MARTINEZ Jun 05, 2016 15:37
[2016-06-05 16:00] VITALS: BP 119/71
[2016-06-05] MEDS ORDERED: Meropenem 1 GM in NS 55 ML IVPB SCH (18:00)
[2016-06-05] MEDS: Polymyxin B Sulfate 500,000 UNITS in D5W 500ml 500 ML IVPB SCH (18:12)
[2016-06-05 20:03] VITALS: BP 141/86
[2016-06-06] VITALS: BP 112/70
[2016-06-06] MEDS: DiphenhydrAMINE 50mg/ml Inj IVP PRN ×4 (00:10→20:35)
[2016-06-06] MEDS: Tigecycline 50 MG in D5W 110 ML IVPB SCH ×2 (00:10→13:23)
[2016-06-06 04:00] VITALS: BP 119/73
[2016-06-06] MEDS: Polymyxin B Sulfate 500,000 UNITS in D5W 500ml 500 ML IVPB SCH ×2 (04:57→16:47)
[2016-06-06 08:00] VITALS: BP 127/75
[2016-06-06] MEDS: Heparin 5000 units/ml inj SUBQ SCH ×2 (09:00→21:23)
[2016-06-06] MEDS ORDERED: Tubing IV Secondary IV ONE (09:53)
--- NOTE | 2016-06-06 10:13 | General Progress Note ---
Assessment/Plan Assessment/Plan IMPRESSION: 1. lyte imbalance. 2. paraplegia 3. Acute renal failure. 4. Discitis. 5. Osteomyelitis. 6. History of bacteremia. 7. Chronic opiate/narcotic dependence. 8. Anemia. 9. hyperglycemia 10. Anion gap. 11. bacteremia PLAN ID noted and appreciated plastics noted wound noted attempt to find spine surgeon cards noted pain control nutrition concern of recurrent positive blood cultures discussed and source MDR sensitive to Tygacil ID discussed in detail ongoing wound care impression, plan, and exam edited and reviewed in detail care discussed with RN Subjective Allergies: Coded Allergies: CEFTRIAXONE (Verified Allergy, Intermediate, SOB, HR-140bpm, face swollen , pt became red, 10/24/15) CODEINE (Verified Allergy, Intermediate, SWELLING, 01/03/11) LATEX (Verified Allergy, Intermediate, SWELLING, 01/03/11) PIPERACILLIN (Verified Allergy, Intermediate, Itching, 08/29/15) 08/29/15 tolerates Ceftaroline TAZOBACTAM (Verified Allergy, Intermediate, Itching, 01/29/15) POLYMYXIN B (Verified Allergy, Mild, Rash, 04/08/16) Suspected allergy reported by VANCOMYCIN (Verified Allergy, Mild, 07/15/14) ASPARAGINASE (Verified Allergy, Unknown, 01/28/14) CEFUROXIME (Unverified Allergy, Unknown, 04/19/16) IRON (Verified Allergy, Unknown, 01/28/14) Subjective PICC in place all noted d/w ID needs spine evaluation and S[facility]IM[facility] Objective Last 24 Hour Vital Signs Date Time Temp Pulse Resp B/P Pulse Ox O2 Delivery O2 Flow Rate FiO2 06/06/16 08:00 97.7 90 18 127/75 100 Room Air 06/06/16 05:33 97.6 06/06/16 04:00 97.6 89 18 119/73 98 Room Air 06/06/16 00:00 97.3 90 18 112/70 97 Room Air 06/05/16 20:03 98.1 95 22 141/86 100 Room Air 06/05/16 16:00 97.2 89 22 119/71 96 Room Air 06/05/16 12:00 97.8 79 18 126/72 94 Nasal Cannula Intake and Output 06/05/16 06/06/16 18:59 06:59 Intake Total 1470 ml 3350 ml Balance 1470 ml 3350 ml Intake Oral 360 ml 1340 ml IV Total 1110 ml 2010 ml # Voids 2 2 Height (Feet): 5 Height (Inches): 5.00 Weight (Pounds): 190 Objective GENERAL: A well developed female lying comfortable. The patient is alert and oriented. HEENT: Negative. NECK: Supple. No adenopathy. Carotids 2+. LUNGS: Clear. Symmetric. without rhonchi or wheeze CARDIAC: S2. Regular rate and rhythm. Sinus tachycardia.without MRG ABDOMEN: Soft and nontender. obese; no HSM EXTREMITIES: No cyanosis or clubbing. There is no lower extremity edema. NEUROLOGIC: Grossly nonfocal, paraplegic LUANN MICHEL Jun 06, 2016 10:13
[2016-06-06 12:00] VITALS: BP 128/71
[2016-06-06] MEDS ORDERED: DiphenhydrAMINE 50mg/ml Inj IVP ONE (15:15)
[2016-06-06 16:00] VITALS: BP 128/52
[2016-06-06 19:00] VITALS: BP 103/64
[2016-06-07] VITALS (7 sets, daily range): BP systolic 107–133; BP diastolic 67–75
[2016-06-07] MEDS: DiphenhydrAMINE 50mg/ml Inj IVP PRN ×2 (04:24→10:49)
[2016-06-07] MEDS: Polymyxin B Sulfate 500,000 UNITS in D5W 500ml 500 ML IVPB SCH (06:00)
[2016-06-07 07:27] LABS: BASOPHILS % (AUTO) 0.5 % (0.0-2.0); EOSINOPHILS % (AUTO) 5.8 % (0.0-3.0); MEAN CORPUSCULAR HEMOGLOBIN 28.7 PG (27.0-31.0); MEAN CORPUSCULAR HGB CONC 32.9 G/DL (32.0-36.0); MEAN CORPUSCULAR VOLUME 87 FL (80-99); MEAN PLATELET VOLUME 5.8 FL (6.5-10.1); MONOCYTES % (AUTO) 4.7 % (1.0-10.0); PLATELET COUNT 284 K/UL (150-450); RED BLOOD COUNT 3.08 M/UL (4.20-5.40); RED CELL DISTRIBUTION WIDTH 17.5 % (11.6-14.8); WHITE BLOOD COUNT 5.5 K/UL (4.8-10.8)
[2016-06-07 07:48] LABS: ANION GAP 15 (5-15); CALCIUM 7.3 mg/dL (8.6-10.2); CARBON DIOXIDE 22 mEQ/L (20-30); CHLORIDE 100 mEQ/L (98-107); CREATININE 0.7 mg/dL (0.5-0.9); GLOMERULAR FILTRATION RATE > 60 mL/min (>60); HEMOLYSIS 10; POTASSIUM 3.5 mEQ/L (3.4-4.9); SODIUM 137 mEQ/L (135-145)
[2016-06-07] MEDS: Heparin 5000 units/ml inj SUBQ SCH ×2 (09:00→20:39)
--- NOTE | 2016-06-07 09:33 | General Progress Note ---
Assessment/Plan Assessment/Plan IMPRESSION: 1. lyte imbalance. 2. paraplegia 3. Acute renal failure. 4. Discitis. 5. Osteomyelitis. 6. History of bacteremia. 7. Chronic opiate/narcotic dependence. 8. Anemia. 9. hyperglycemia 10. Anion gap. 11. bacteremia PLAN ID noted and appreciated plastics noted wound noted spine surgeon cards noted pain control nutrition encouraged MDR sensitive to Tygacil ID discussed in detail ongoing wound care needed close follow up remains acute impression, plan, and exam edited and reviewed in detail care discussed with RN Subjective Allergies: Coded Allergies: CEFTRIAXONE (Verified Allergy, Intermediate, SOB, HR-140bpm, face swollen , pt became red, 10/24/15) CODEINE (Verified Allergy, Intermediate, SWELLING, 01/03/11) LATEX (Verified Allergy, Intermediate, SWELLING, 01/03/11) PIPERACILLIN (Verified Allergy, Intermediate, Itching, 08/29/15) 08/29/15 tolerates Ceftaroline TAZOBACTAM (Verified Allergy, Intermediate, Itching, 01/29/15) POLYMYXIN B (Verified Allergy, Mild, Rash, 04/08/16) Suspected allergy reported by VANCOMYCIN (Verified Allergy, Mild, 07/15/14) ASPARAGINASE (Verified Allergy, Unknown, 01/28/14) CEFUROXIME (Unverified Allergy, Unknown, 04/19/16) IRON (Verified Allergy, Unknown, 01/28/14) Subjective PICC in place all noted d/w ID needs spine evaluation and SULAIM[facility] Objective Last 24 Hour Vital Signs Date Time Temp Pulse Resp B/P Pulse Ox O2 Delivery O2 Flow Rate FiO2 06/07/16 04:54 97.9 06/07/16 04:00 97.5 82 18 126/68 95 Room Air 06/07/16 00:00 97.4 86 18 126/74 100 Room Air 06/06/16 19:00 97.9 80 20 103/64 98 Room Air 06/06/16 16:00 96.8 86 20 128/52 98 Room Air 06/06/16 12:00 97.3 88 18 128/71 100 Room Air Intake and Output 06/06/16 06/07/16 19:00 07:00 Intake Total 1110 ml 800 ml Output Total 300 ml Balance 1110 ml 500 ml Intake Oral 600 ml 700 ml IV Total 510 ml 100 ml Output Stool Total 300 ml # Voids 1 6 # Bowel Movements 1 Laboratory Tests 06/07/16 05:00: White Blood Count 5.5, Red Blood Count 3.08L, Hemoglobin 8.8L, Hematocrit 26.9L , Mean Corpuscular Volume 87, Mean Corpuscular Hemoglobin 28.7, Mean Corpuscular Hemoglobin Concent 32.9, Red Cell Distribution Width 17.5H, Platelet Count 284, Mean Platelet Volume 5.8L, Neutrophils (%) (Auto) 52.0, Lymphocytes (%) (Auto) 37.0, Monocytes (%) (Auto) 4.7, Eosinophils (%) (Auto) 5.8H, Basophils (%) (Auto) 0.5, Sodium Level 137, Potassium Level 3.5, Chloride Level 100, Carbon Dioxide Level 22, Anion Gap 15, Blood Urea Nitrogen 15, Creatinine 0.7, Estimat Glomerular Filtration Rate > 60, Glucose Level 75, Calcium Level 7.3L Height (Feet): 5 Height (Inches): 5.00 Weight (Pounds): 190 Objective GENERAL: A well developed female lying comfortable. The patient is alert and oriented. HEENT: Negative. NECK: Supple. No adenopathy. Carotids 2+. LUNGS: Clear. Symmetric. without rhonchi or wheeze CARDIAC: S2. Regular rate and rhythm. Sinus tachycardia.without MRG ABDOMEN: Soft and nontender. obese; no HSM EXTREMITIES: No cyanosis or clubbing. There is no lower extremity edema. NEUROLOGIC: Grossly nonfocal, paraplegic LUANN MICHEL Jun 07, 2016 09:33
--- NOTE | 2016-06-07 12:21 | Infectious Diseases Prog Note ---
Assessment/Plan Assessment/Plan ASSESSMENT AND PLAN: 1. acinetobacter bacteremia - this is 3rd episode including previous admission, lines have been changed and abx given multiple times, ? endocarditis, ? spinal epidural abscess/discitis, ? wound/osteo source - had possible abx reaction, has tolerated tygacil in past, polymyxin started on 06/05 - will rechallenge with tygacil and give benadryl prior to infusion - previous echo - TTE - without vegetation mentioned - indium scan negative - cardiology evaluation noted, check f/u TTE, consider SULAIMAN - cannot do mri of spine secondary to body habitus, open MRI not available at [place] - spine surgery, if possible 2. polymicrobial sacral wound infection and osteo - finish abx course, plastic surgery f/u 3. tachycardia 4. n/v - per primary 5. History of osteoarthritis and treatment. 6. Colostomy. 7. Paraplegia. 8. Anemia. 9. ? diabetes - patient denies dm hx, bs elevated only with infection per pt 10. Chronic pain management and chronic pain syndrome, anxiety 11. History of cholelithiasis. 12. Pain management for primary, opiate dependency 13. Multiple allergies to asparaginase, Rocephin, codeine, iron, Latex, piperacillin, tazobactam, and vancomycin, ? polymyxin 14. wound care per protocol and plastic surgery 15. The case was discussed with RN 16. The case was discussed with the patient. 17. fh-nc, sh-negative, mar noted 18. notes and records reviewed 19. vre colonization and isolation 20. d/w patient and sister at length, answered questions 21. communicated with Dr. Healy 22. d/w pharmacy 23. time spent - 43 minutes Subjective Subjective Constitutional: Denies: fever HEENT: Denies: congestion Respiratory: Denies: shortness of breath Cardiovascular: Denies: chest pain Gastrointestinal/Abdominal: Reports: other - + colostomy, Denies: nausea, vomiting Neurologic: Denies: headache Psychiatric: Denies: depression Skin: Reports: other - had facial rash yesterday, abx held, better today, no sig rash on face, no change in body rash Hematologic: Denies: bleeding Musculoskeletal: Denies: pain Allergies: Coded Allergies: CEFTRIAXONE (Verified Allergy, Intermediate, SOB, HR-140bpm, face swollen , pt became red, 10/24/15) CODEINE (Verified Allergy, Intermediate, SWELLING, 01/03/11) LATEX (Verified Allergy, Intermediate, SWELLING, 01/03/11) PIPERACILLIN (Verified Allergy, Intermediate, Itching, 08/29/15) 08/29/15 tolerates Ceftaroline TAZOBACTAM (Verified Allergy, Intermediate, Itching, 01/29/15) POLYMYXIN B (Verified Allergy, Mild, Rash, 04/08/16) Suspected allergy reported by VANCOMYCIN (Verified Allergy, Mild, 07/15/14) ASPARAGINASE (Verified Allergy, Unknown, 01/28/14) CEFUROXIME (Unverified Allergy, Unknown, 04/19/16) IRON (Verified Allergy, Unknown, 01/28/14) Objective Vital Signs Last 24 Hour Vital Signs Date Time Temp Pulse Resp B/P Pulse Ox O2 Delivery O2 Flow Rate FiO2 06/07/16 09:46 97.9 06/07/16 04:00 97.5 82 18 126/68 95 Room Air 06/07/16 00:00 97.4 86 18 126/74 100 Room Air 06/06/16 19:00 97.9 80 20 103/64 98 Room Air 06/06/16 16:00 96.8 86 20 128/52 98 Room Air Height (Feet): 5 Height (Inches): 5.00 Weight (Pounds): 190 General Appearance: no acute distress HEENT: normocephalic, anicteric, mucous membranes moist, PERRL, EOMI, pharynx normal, supple, no JVD Respiratory/Chest: lungs clear, normal breath sounds, no respiratory distress, no accessory muscle use Cardiovascular: normal rate, regular rhythm, no gallop/murmur, no JVD Abdomen: normal bowel sounds, soft, non tender, no organomegaly, non distended Genitourinary: other - no bay Extremities: no cyanosis Skin: rash - body rash stable, no facial rash 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: ticketing agent II-XII grossly normal, alert, oriented x 3, responsive Lymphatic: no neck adenopathy Musculoskeletal: no effusion Objective s/p post picc line imdium scan - negative previous imaging noted Microbiology Date/Time Source Procedure Growth Status 06/04/16 06:30 Blood Blood Culture - Preliminary NO GROWTH AFTER 48 HOURS Resulted 05/31/16 18:00 Nasal Nares MRSA Culture - Final NO METHICILLIN RESISTANT STAPH AUREUS... Complete 05/31/16 18:00 Rectum VRE Culture - Final Enterococcus Faecium - Vre Complete Laboratory Tests Test 06/07/16 05:00 White Blood Count 5.5 K/UL (4.8-10.8) Red Blood Count 3.08 M/UL (4.20-5.40) L Hemoglobin 8.8 G/DL (12.0-16.0) L Hematocrit 26.9 % (37.0-47.0) L Mean Corpuscular Volume 87 FL (80-99) Mean Corpuscular Hemoglobin 28.7 PG (27.0-31.0) Mean Corpuscular Hemoglobin Concent 32.9 G/DL (32.0-36.0) Red Cell Distribution Width 17.5 % (11.6-14.8) H Platelet Count 284 K/UL (150-450) Mean Platelet Volume 5.8 FL (6.5-10.1) L Neutrophils (%) (Auto) 52.0 % (45.0-75.0) Lymphocytes (%) (Auto) 37.0 % (20.0-45.0) Monocytes (%) (Auto) 4.7 % (1.0-10.0) Eosinophils (%) (Auto) 5.8 % (0.0-3.0) H Basophils (%) (Auto) 0.5 % (0.0-2.0) Sodium Level 137 mEQ/L (135-145) Potassium Level 3.5 mEQ/L (3.4-4.9) Chloride Level 100 mEQ/L (98-107) Carbon Dioxide Level 22 mEQ/L (20-30) Anion Gap 15 (5-15) Blood Urea Nitrogen 15 mg/dL (7-23) Creatinine 0.7 mg/dL (0.5-0.9) Estimat Glomerular Filtration Rate > 60 mL/min (>60) Glucose Level 75 mg/dL (74-106) Calcium Level 7.3 mg/dL (8.6-10.2) L Current Medications Medications (Trade) Dose Ordered Sig/Pineda Route PRN Reason Start Time Stop Time Status Last Admin Dose Admin Al Hydroxide/Mg Hydroxide (Mylanta) 30 ml EVERY 4 HOURS PRN ORAL dyspepsia 06/01/16 17:00 07/01/16 16:59 Dextrose (Dextrose 50%) STAT PRN IV Hypoglycemia 06/02/16 02:15 07/02/16 02:14 Diphenhydramine HCl (Benadryl) 25 mg EVERY 4 HOURS PRN ORAL Itching 06/01/16 17:00 07/01/16 16:59 Diphenhydramine HCl (Benadryl) 50 mg Q6H PRN IVP Itching 06/01/16 20:30 07/01/16 20:29 06/07/16 10:49 Heparin Sodium (Porcine) (Heparin 5000 units/ml) 5,000 units EVERY 12 HOURS SUBQ 06/01/16 21:00 07/01/16 20:59 06/06/16 21:23 Hydromorphone HCl (Dilaudid) 2 mg EVERY 3 HOURS PRN IVP Severe Breakthru Pain (>7) 06/01/16 15:00 06/08/16 14:59 06/07/16 09:16 Magnesium Hydroxide (Mom) 30 ml HSPRN PRN ORAL Constipation 06/02/16 03:00 07/02/16 02:59 Ondansetron HCl (Zofran) 4 mg Q6H PRN IVP Nausea & Vomiting 06/01/16 20:30 07/01/16 20:29 06/05/16 11:15 Pantoprazole (Protonix) 40 mg DAILY ORAL 06/02/16 09:00 07/02/16 08:59 06/07/16 09:15 Polymyxin B Sulfate/Dextrose (Polymyxin B Sulfate/D5W 500ml) 500 ml @ 500 mls/hr Q12H IVPB 06/05/16 18:00 06/12/16 17:59 06/06/16 04:57 Sodium Chloride (Sodium Chloride 1000ml bag) 1,000 ml @ 100 mls/hr Q10H IVLG 06/01/16 16:00 07/01/16 15:59 06/06/16 04:57 Zolpidem Tartrate 5 mg 5 mg HSPRN PRN ORAL Insomnia 06/02/16 02:30 07/02/16 02:29 GRZEGORZ MARTINEZ Jun 07, 2016 12:21
[2016-06-07] MEDS: DiphenhydrAMINE 50mg/ml Inj IV SCH (17:35)
[2016-06-07] MEDS ORDERED: [UNRECOGNIZED DRUG - OTHER] IVPB ONE ×2 (18:30)
[2016-06-08] MEDS: DiphenhydrAMINE 50mg/ml Inj IVP PRN ×3 (00:55→18:44)
[2016-06-08] MEDS: Heparin 5000 units/ml inj SUBQ SCH ×2 (08:26→21:00)
[2016-06-08] MEDS: DiphenhydrAMINE 50mg/ml Inj IV SCH ×2 (08:26→20:35)
--- NOTE | 2016-06-08 08:34 | General Progress Note ---
Assessment/Plan Assessment/Plan IMPRESSION: 1. lyte imbalance. 2. paraplegia 3. Acute renal failure. 4. Discitis. 5. Osteomyelitis. 6. History of bacteremia. 7. Chronic opiate/narcotic dependence. 8. Anemia. 9. hyperglycemia 10. Anion gap. 11. bacteremia PLAN ID noted and appreciated exam without change cards noted pain control nutrition encouraged MDR sensitive to Tygacil repeat blood cultures negative ID discussed in detail ongoing wound care needed close follow up remains acute and requires in hospital care impression, plan, and exam edited and reviewed in detail care discussed with RN Subjective Allergies: Coded Allergies: CEFTRIAXONE (Verified Allergy, Intermediate, SOB, HR-140bpm, face swollen , pt became red, 10/24/15) CODEINE (Verified Allergy, Intermediate, SWELLING, 01/03/11) LATEX (Verified Allergy, Intermediate, SWELLING, 01/03/11) PIPERACILLIN (Verified Allergy, Intermediate, Itching, 08/29/15) 08/29/15 tolerates Ceftaroline TAZOBACTAM (Verified Allergy, Intermediate, Itching, 01/29/15) POLYMYXIN B (Verified Allergy, Mild, Rash, 04/08/16) Suspected allergy reported by VANCOMYCIN (Verified Allergy, Mild, 07/15/14) ASPARAGINASE (Verified Allergy, Unknown, 01/28/14) CEFUROXIME (Unverified Allergy, Unknown, 04/19/16) IRON (Verified Allergy, Unknown, 01/28/14) Subjective PICC in place all noted d/w ID cards noted Objective Last 24 Hour Vital Signs Date Time Temp Pulse Resp B/P Pulse Ox O2 Delivery O2 Flow Rate FiO2 06/08/16 06:51 97.9 06/07/16 23:57 97.9 93 18 107/67 98 Room Air 06/07/16 20:00 98.8 86 22 122/75 98 Room Air 06/07/16 17:00 97.7 83 20 133/68 98 Room Air 06/07/16 12:00 95.5 89 18 127/69 100 Room Air Intake and Output 06/07/16 06/08/16 19:00 07:00 Intake Total 240 ml 1550 ml Output Total 300 ml Balance -60 ml 1550 ml Intake Oral 240 ml 1240 ml IV Total 0 ml 310 ml Output Stool Total 300 ml # Voids 1 2 Labs Test 06/07/16 05:00 White Blood Count 5.5 K/UL (4.8-10.8) Red Blood Count 3.08 M/UL (4.20-5.40) Hemoglobin 8.8 G/DL (12.0-16.0) Hematocrit 26.9 % (37.0-47.0) Mean Corpuscular Volume 87 FL (80-99) Mean Corpuscular Hemoglobin 28.7 PG (27.0-31.0) Mean Corpuscular Hemoglobin Concent 32.9 G/DL (32.0-36.0) Red Cell Distribution Width 17.5 % (11.6-14.8) Platelet Count 284 K/UL (150-450) Mean Platelet Volume 5.8 FL (6.5-10.1) Neutrophils (%) (Auto) 52.0 % (45.0-75.0) Lymphocytes (%) (Auto) 37.0 % (20.0-45.0) Monocytes (%) (Auto) 4.7 % (1.0-10.0) Eosinophils (%) (Auto) 5.8 % (0.0-3.0) Basophils (%) (Auto) 0.5 % (0.0-2.0) Sodium Level 137 mEQ/L (135-145) Potassium Level 3.5 mEQ/L (3.4-4.9) Chloride Level 100 mEQ/L (98-107) Carbon Dioxide Level 22 mEQ/L (20-30) Anion Gap 15 (5-15) Blood Urea Nitrogen 15 mg/dL (7-23) Creatinine 0.7 mg/dL (0.5-0.9) Estimat Glomerular Filtration Rate > 60 mL/min (>60) Glucose Level 75 mg/dL (74-106) Calcium Level 7.3 mg/dL (8.6-10.2) Height (Feet): 5 Height (Inches): 5.00 Weight (Pounds): 190 Objective GENERAL: A well developed female lying comfortable. The patient is alert and oriented. HEENT: Negative. NECK: Supple. No adenopathy. Carotids 2+. LUNGS: Clear. Symmetric. without rhonchi or wheeze CARDIAC: S2. Regular rate and rhythm. Sinus tachycardia.without MRG ABDOMEN: Soft and nontender. obese; no HSM EXTREMITIES: No cyanosis or clubbing. There is no lower extremity edema. NEUROLOGIC: Grossly nonfocal, paraplegic LUANN MICHEL Jun 08, 2016 08:34
[2016-06-08 08:51] VITALS: BP 118/70
[2016-06-08] MEDS: Tigecycline 50 MG in D5W 110 ML IVPB SCH ×2 (09:17→21:13)
--- NOTE | 2016-06-08 10:04 | Cardiology Report ---
APPROVED REPORT EXAM: Two-dimensional and M-mode echocardiogram with Doppler and color Doppler. INDICATION Endocarditis M-Mode DIMENSIONS IVSd1.4 (0.7-1.1cm)Left Atrium (MM)3.2 (1.6-4.0cm) LVDd5.7 (3.5-5.6cm)Aortic Root3.0 (2.0-3.7cm) PWd0.7 (0.7-1.1cm)Aortic Cusp Exc.1.7 (1.5-2.0cm) LVDs3.1 (2.5-4.0cm) PWs1.9 cm Normal left ventricular chamber size, systolic function and wall motion. Left ventricular ejection fraction estimated to be 55 %. Mild left ventricular hypertrophy. No evidence of pericardial fat or effusion. All other cardiac chamber sizes are within normal limits. Mild focal aortic valve sclerosis with adequate cusp excursion. Mildly thickened mitral valve leaflets with normal excursion. Mild mitral annulus and aortic root calcification. Normal pulmonic valve structure. Normal tricuspid valve structure. IVC dilated at 1.8 cm with minimal physiologic collapse. No vegetations. A color flow and spectral Doppler study was performed and revealed: No aortic regurgitation. Trace mitral regurgitation. Mitral diastolic velocities shows E/A near equalization suggesting beginning of reduced left ventricular relaxation c/w diastolic dysfunction. Mild tricuspid regurgitation. Tricuspid systolic velocities suggests peak right ventricular systolic pressure of 39 mmHg, consistent with mild pulmonary hypertension. Trace pulmonic regurgitation present.
--- NOTE | 2016-06-08 11:24 | Wound Nurse Progress Note ---
Wound RN Progress Note Wound Consult Attempted to reassess patient unable too, patient aware of wound care nurse refused stated "I don't care, bye". SUGEY JORDAN Jun 08, 2016 11:24
[2016-06-08 12:36] VITALS: BP 112/68
[2016-06-08 16:00] VITALS: BP 122/73
[2016-06-08] MEDS ORDERED: Tubing IV Secondary IV ONE (16:50)
[2016-06-08 19:57] VITALS: BP 138/72
--- NOTE | 2016-06-08 20:21 | Infectious Diseases Prog Note ---
Assessment/Plan Assessment/Plan ASSESSMENT AND PLAN: 1. acinetobacter bacteremia - this is 3rd episode including previous admission, lines have been changed and abx given multiple times, ? endocarditis, ? spinal epidural abscess/discitis, ? wound/osteo source - continue tygacil for now, patient likely has polmyxin allergy and was stopped with resolution of facial rash - surveillance blood cultures negative - TTE - no vegetation - indium scan negative - cardiology f/u, consider SULAIMAN, will discuss - cannot do mri of spine secondary to body habitus, open MRI not available at [place] - spine surgery, if possible - previous picc line removed, new picc line now 2. polymicrobial sacral wound infection and osteo - s/p 6 week abx course, plastic surgery f/u 3. tachycardia 4. n/v - per primary 5. History of osteoarthritis and treatment. 6. Colostomy. 7. Paraplegia. 8. Anemia. 9. ? diabetes - patient denies dm hx, bs elevated only with infection per pt 10. Chronic pain management and chronic pain syndrome, anxiety 11. History of cholelithiasis. 12. Pain management for primary, opiate dependency 13. Multiple allergies to asparaginase, Rocephin, codeine, iron, Latex, piperacillin, tazobactam, and vancomycin, ? polymyxin 14. wound care per protocol and plastic surgery 15. The case was discussed with RN 16. The case was discussed with the patient. 17. fh-nc, sh-negative, mar noted 18. notes and records reviewed 19. vre colonization and isolation 20. d/w patient and sister at length, answered questions 21. communicated with Dr. Healy 22. d/w pharmacy 23. time spent - 43 minutes Subjective Subjective Constitutional: Denies: fever HEENT: Denies: congestion Respiratory: Denies: shortness of breath Cardiovascular: Denies: chest pain Gastrointestinal/Abdominal: Denies: diarrhea, nausea, vomiting Genitourinary: Reports: other - no bay Neurologic: Denies: headache Psychiatric: Denies: depression Skin: Denies: rash Musculoskeletal: Denies: pain Allergies: Coded Allergies: CEFTRIAXONE (Verified Allergy, Intermediate, SOB, HR-140bpm, face swollen , pt became red, 10/24/15) CODEINE (Verified Allergy, Intermediate, SWELLING, 01/03/11) LATEX (Verified Allergy, Intermediate, SWELLING, 01/03/11) PIPERACILLIN (Verified Allergy, Intermediate, Itching, 08/29/15) 08/29/15 tolerates Ceftaroline TAZOBACTAM (Verified Allergy, Intermediate, Itching, 01/29/15) POLYMYXIN B (Verified Allergy, Mild, Rash, 04/08/16) Suspected allergy reported by VANCOMYCIN (Verified Allergy, Mild, 07/15/14) ASPARAGINASE (Verified Allergy, Unknown, 01/28/14) CEFUROXIME (Unverified Allergy, Unknown, 04/19/16) IRON (Verified Allergy, Unknown, 01/28/14) Objective Vital Signs Last 24 Hour Vital Signs Date Time Temp Pulse Resp B/P Pulse Ox O2 Delivery O2 Flow Rate FiO2 06/08/16 19:57 98.4 92 20 138/72 90 Room Air 06/08/16 17:07 96.8 06/08/16 16:00 98.1 87 20 122/73 98 Room Air 06/08/16 12:36 96.8 90 19 112/68 100 Room Air 06/08/16 08:51 98.1 87 19 118/70 96 Room Air 06/08/16 06:51 97.9 06/07/16 23:57 97.9 93 18 107/67 98 Room Air Height (Feet): 5 Height (Inches): 5.00 Weight (Pounds): 190 General Appearance: no acute distress HEENT: normocephalic, atraumatic, anicteric, mucous membranes moist, PERRL, EOMI, pharynx normal, supple, no JVD Respiratory/Chest: lungs clear, normal breath sounds, no respiratory distress, no accessory muscle use Cardiovascular: normal rate, regular rhythm, no gallop/murmur, no JVD Abdomen: normal bowel sounds, soft, non tender, no organomegaly, non distended Genitourinary: other - no bay Extremities: no cyanosis Skin: rash - no new rash, tolerated tygacil, no facial rash, no change in chronic rash 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 Complete 05/31/16 18:00 Rectum VRE Culture - Final Enterococcus Faecium - Vre Complete Labs Test 06/07/16 05:00 White Blood Count 5.5 K/UL (4.8-10.8) Red Blood Count 3.08 M/UL (4.20-5.40) Hemoglobin 8.8 G/DL (12.0-16.0) Hematocrit 26.9 % (37.0-47.0) Mean Corpuscular Volume 87 FL (80-99) Mean Corpuscular Hemoglobin 28.7 PG (27.0-31.0) Mean Corpuscular Hemoglobin Concent 32.9 G/DL (32.0-36.0) Red Cell Distribution Width 17.5 % (11.6-14.8) Platelet Count 284 K/UL (150-450) Mean Platelet Volume 5.8 FL (6.5-10.1) Neutrophils (%) (Auto) 52.0 % (45.0-75.0) Lymphocytes (%) (Auto) 37.0 % (20.0-45.0) Monocytes (%) (Auto) 4.7 % (1.0-10.0) Eosinophils (%) (Auto) 5.8 % (0.0-3.0) Basophils (%) (Auto) 0.5 % (0.0-2.0) Sodium Level 137 mEQ/L (135-145) Potassium Level 3.5 mEQ/L (3.4-4.9) Chloride Level 100 mEQ/L (98-107) Carbon Dioxide Level 22 mEQ/L (20-30) Anion Gap 15 (5-15) Blood Urea Nitrogen 15 mg/dL (7-23) Creatinine 0.7 mg/dL (0.5-0.9) Estimat Glomerular Filtration Rate > 60 mL/min (>60) Glucose Level 75 mg/dL (74-106) Calcium Level 7.3 mg/dL (8.6-10.2) Current Medications Medications (Trade) Dose Ordered Sig/Pineda Route PRN Reason Start Time Stop Time Status Last Admin Dose Admin Al Hydroxide/Mg Hydroxide (Mylanta) 30 ml EVERY 4 HOURS PRN ORAL dyspepsia 2/21/17 17:00 07/01/16 16:59 Dextrose (Dextrose 50%) STAT PRN IV Hypoglycemia 06/02/16 02:15 07/02/16 02:14 Diphenhydramine HCl (Benadryl) 25 mg EVERY 4 HOURS PRN ORAL Itching 06/01/16 17:00 07/01/16 16:59 Diphenhydramine HCl (Benadryl) 25 mg Q12HR@0830,2030 IV 06/07/16 18:00 07/07/16 17:59 06/08/16 08:26 Diphenhydramine HCl (Benadryl) 50 mg Q6H PRN IVP Itching 06/01/16 20:30 07/01/16 20:29 06/08/16 18:44 Heparin Sodium (Porcine) (Heparin 5000 units/ml) 5,000 units EVERY 12 HOURS SUBQ 06/01/16 21:00 07/01/16 20:59 06/06/16 21:23 Hydromorphone HCl (Dilaudid) 2 mg Q3H PRN IVP Severe Breakthru Pain (>7) 06/08/16 16:15 06/15/16 16:14 06/08/16 20:04 Magnesium Hydroxide (Mom) 30 ml HSPRN PRN ORAL Constipation 06/02/16 03:00 07/02/16 02:59 Ondansetron HCl (Zofran) 4 mg Q6H PRN IVP Nausea & Vomiting 06/01/16 20:30 07/01/16 20:29 06/05/16 11:15 Pantoprazole (Protonix) 40 mg DAILY ORAL 06/02/16 09:00 07/02/16 08:59 06/08/16 08:26 Sodium Chloride (Sodium Chloride 1000ml bag) 1,000 ml @ 100 mls/hr Q10H IVLG 06/01/16 16:00 07/01/16 15:59 06/08/16 09:30 Tigecycline/ Dextrose (Tygacil/D5W) 110 ml @ 220 mls/hr EVERY 12 HOURS IVPB 06/08/16 09:00 06/15/16 08:59 06/08/16 09:17 Zolpidem Tartrate 5 mg 5 mg HSPRN PRN ORAL Insomnia 06/02/16 02:30 07/02/16 02:29 GRZEGORZ MARTINEZ Jun 08, 2016 20:21
[2016-06-09] VITALS: BP 124/77
[2016-06-09] MEDS: DiphenhydrAMINE 50mg/ml Inj IVP PRN ×3 (03:27→18:07)
--- NOTE | 2016-06-09 03:38 | Progress Note ---
DATE: 06/08/2016 SUBJECTIVE: Bacteremia persists. Antibiotics continued. Vital signs, stable and afebrile. Pain control achieved with current regimen. OBJECTIVE: VITAL SIGNS: Blood pressure 112/68, pulse 90, and respirations 19. NECK: Supple. LUNGS: Clear. CARDIAC: Regular. Normal S1 and S2. No new murmur. ABDOMEN: Soft. No edema. IMPRESSION: 1. Recurring Acinetobacter bacteremia. 2. Possible endocarditis. 3. Possible spine abscess. 4. Osteomyelitis and sacral wound infection. 5. Secondary sinus tachycardia. 6. Colostomy. 7. Paraplegia. 8. Acute on chronic pain. PLAN: 1. Antibiotics. 2. Skin care. 3. DVT prophylaxis. 4. Pain control. 5. Imaging of the spine as able. 6. Transesophageal echocardiogram if the patient agrees to assess to evaluate for endocarditis. Karthik Parra M.D. DR: FELICITA JOB#: [id number] CC:
--- NOTE | 2016-06-09 03:48 | Progress Note ---
DATE: 06/06/2016 CARDIOLOGY PROGRESS NOTE SUBJECTIVE: The patient continues to require pain medications. Bacteremia, as noted. Antibiotics are continued. Source of recurring bacteremia is under evaluation. OBJECTIVE: VITAL SIGNS: Blood pressure 127/75, pulse 90, respirations 18, and afebrile. SKIN: Warm as pictured. LUNGS: Clear. CARDIAC: Regular rhythm and rate. Normal S1 and S2 with no appreciable murmur. ABDOMEN: Soft. EXTREMITIES: No edema. DISCUSSION: Endocarditis needs to be considered as well as recurring source of bacteremia. Imaging studies are planned. SULAIMAN will be considered once is completed. Karthik Parra M.D. DR: FELICITA JOB#: [id number] CC:
--- NOTE | 2016-06-09 03:48 | Progress Note ---
DATE: 06/07/2016 CARDIOLOGY PROGRESS NOTE SUBJECTIVE: Late entry. No new complaints. Antibiotics continued. Positive blood cultures noted. Infectious Disease evaluation appreciated. OBJECTIVE: VITAL SIGNS: Blood pressure 126/68, pulse 83, and respirations, 18, and no fevers. LUNGS: Clear. CARDIAC: Regular. Facial rash noted. No new murmur. ABDOMEN: Soft. EXTREMITIES: With trace dependent edema. Recurring Acinetobacter bacteriemia, consideration of steroids include spinal abscess, endocarditis, acute on chronic pain. IMPRESSION: 1. Possible endocarditis for final abscess. 2. Osteomyelitis. 3. Cellulitis. 4. Anemia. 5. Protein-calorie malnutrition. PLAN: We will consider transesophageal echocardiogram. Acinetobacter is a rare pathogen to cause endocarditis, however, certainly is a possibility of this in this clinical situation. We will see if imaging of the spine can be completed first to exclude source of recurring bacteremia to discuss with consulting staff. Medication regimen/MAR are reviewed. Karthik Parra M.D. DR: Osmel JOB#: [id number] CC:
[2016-06-09 08:00] VITALS: BP 123/72
[2016-06-09] MEDS: Heparin 5000 units/ml inj SUBQ SCH ×2 (08:44→20:27)
[2016-06-09] MEDS: DiphenhydrAMINE 50mg/ml Inj IV SCH ×2 (08:49→20:33)
[2016-06-09] MEDS: Tigecycline 50 MG in D5W 110 ML IVPB SCH ×2 (09:45→21:24)
--- NOTE | 2016-06-09 10:16 | General Progress Note ---
Assessment/Plan Assessment/Plan IMPRESSION: 1. lyte imbalance. 2. paraplegia 3. Acute renal failure. 4. Discitis. 5. Osteomyelitis. 6. History of bacteremia. 7. Chronic opiate/narcotic dependence. 8. Anemia. 9. hyperglycemia 10. Anion gap. 11. bacteremia rule out endocarditis PLAN ID noted and appreciated exam noted radiology to assess PICC cards noted; possible SULAIMAN pain control nutrition encouraged MDR sensitive to Tygacil repeat blood cultures negative thus far ID discussed in detail ongoing wound care needed per plastics close follow up remains acute and requires in hospital care for now until cleared by ID impression, plan, and exam edited and reviewed in detail care discussed with RN Subjective Allergies: Coded Allergies: CEFTRIAXONE (Verified Allergy, Intermediate, SOB, HR-140bpm, face swollen , pt became red, 10/24/15) CODEINE (Verified Allergy, Intermediate, SWELLING, 01/03/11) LATEX (Verified Allergy, Intermediate, SWELLING, 01/03/11) PIPERACILLIN (Verified Allergy, Intermediate, Itching, 08/29/15) 08/29/15 tolerates Ceftaroline TAZOBACTAM (Verified Allergy, Intermediate, Itching, 01/29/15) POLYMYXIN B (Verified Allergy, Mild, Rash, 04/08/16) Suspected allergy reported by MD VANCOMYCIN (Verified Allergy, Mild, 07/15/14) ASPARAGINASE (Verified Allergy, Unknown, 01/28/14) CEFUROXIME (Unverified Allergy, Unknown, 04/19/16) IRON (Verified Allergy, Unknown, 01/28/14) Subjective PICC not flushing all noted Objective Last 24 Hour Vital Signs Date Time Temp Pulse Resp B/P Pulse Ox O2 Delivery O2 Flow Rate FiO2 06/09/16 08:00 97.2 84 18 123/72 98 Room Air 06/09/16 00:00 97.9 87 20 124/77 98 Room Air 06/08/16 20:34 98.4 06/08/16 20:30 92 Room Air 06/08/16 19:57 98.4 92 20 138/72 90 Room Air 06/08/16 16:00 98.1 87 20 122/73 98 Room Air 06/08/16 12:36 96.8 90 19 112/68 100 Room Air Intake and Output 06/08/16 06/09/16 19:00 07:00 Intake Total 750 ml 930 ml Balance 750 ml 930 ml Intake Oral 240 ml 420 ml IV Total 510 ml 510 ml # Voids 1 Height (Feet): 5 Height (Inches): 5.00 Weight (Pounds): 190 Objective GENERAL: A well developed female lying comfortable. The patient is alert and oriented. HEENT: Negative. NECK: Supple. No adenopathy. Carotids 2+. LUNGS: Clear. Symmetric. without rhonchi or wheeze CARDIAC: S2. Regular rate and rhythm. Sinus tachycardia.without MRG ABDOMEN: Soft and nontender. obese; no HSM EXTREMITIES: No cyanosis or clubbing. There is no lower extremity edema. NEUROLOGIC: Grossly nonfocal, paraplegic LUANN MICHEL Jun 09, 2016 10:16
[2016-06-09 12:00] VITALS: BP 119/77
--- NOTE | 2016-06-09 12:34 | Diagnostic Imaging Report ---
Indication: Chest pain. Nonfunctioning PICC line Comparison: None A single view chest radiograph was obtained. Findings: The tip of the PICC line is projected over the SVC. Compared to the prior exam the line has been pulled back several centimeters. The lungs are clear. Cardiac silhouette is normal. Impression: PICC line tip projected over the SVC
--- NOTE | 2016-06-09 12:55 | Infectious Diseases Prog Note ---
Assessment/Plan Assessment/Plan ASSESSMENT AND PLAN: 1. acinetobacter bacteremia - this is 3rd episode including previous admission, lines have been changed and abx given multiple times, ? endocarditis, ? spinal epidural abscess/discitis, ? wound/osteo source - tygacil, patient likely has polmyxin allergy and was stopped with resolution of facial rash - surveillance blood cultures negative - TTE - no vegetation - indium scan negative - cardiology f/u, consider SULAIMAN, will discuss - cannot do mri of spine secondary to body habitus, open MRI not available at [place], ? arrange for outside MRI - spine surgery, if possible - previous picc line removed, new picc line now 2. polymicrobial sacral wound infection and osteo - s/p 6 week abx course, plastic surgery f/u 3. tachycardia 4. n/v - per primary 5. History of osteoarthritis and treatment. 6. Colostomy. 7. Paraplegia. 8. Anemia. 9. ? diabetes - patient denies dm hx, bs elevated only with infection per pt 10. Chronic pain management and chronic pain syndrome, anxiety 11. History of cholelithiasis. 12. Pain management for primary, opiate dependency 13. Multiple allergies to asparaginase, Rocephin, codeine, iron, Latex, piperacillin, tazobactam, and vancomycin, ? polymyxin 14. wound care per protocol and plastic surgery 15. The case was discussed with RN 16. The case was discussed with the patient. 17. fh-nc, sh-negative, mar noted 18. notes and records reviewed 19. vre colonization and isolation 20. d/w patient Subjective Subjective Constitutional: Denies: fever HEENT: Denies: congestion Respiratory: Denies: shortness of breath Cardiovascular: Denies: chest pain Gastrointestinal/Abdominal: Reports: other - + colostomy, Denies: nausea, vomiting Neurologic: Denies: headache Psychiatric: Denies: depression Skin: Reports: other - no new rash Hematologic: Denies: bleeding Musculoskeletal: Denies: pain Allergies: Coded Allergies: CEFTRIAXONE (Verified Allergy, Intermediate, SOB, HR-140bpm, face swollen , pt became red, 10/24/15) CODEINE (Verified Allergy, Intermediate, SWELLING, 01/03/11) LATEX (Verified Allergy, Intermediate, SWELLING, 01/03/11) PIPERACILLIN (Verified Allergy, Intermediate, Itching, 08/29/15) 08/29/15 tolerates Ceftaroline TAZOBACTAM (Verified Allergy, Intermediate, Itching, 01/29/15) POLYMYXIN B (Verified Allergy, Mild, Rash, 04/08/16) Suspected allergy reported by VANCOMYCIN (Verified Allergy, Mild, 07/15/14) ASPARAGINASE (Verified Allergy, Unknown, 01/28/14) CEFUROXIME (Unverified Allergy, Unknown, 04/19/16) IRON (Verified Allergy, Unknown, 01/28/14) Objective Vital Signs Last 24 Hour Vital Signs Date Time Temp Pulse Resp B/P Pulse Ox O2 Delivery O2 Flow Rate FiO2 06/09/16 08:00 97.2 84 18 123/72 98 Room Air 06/09/16 00:00 97.9 87 20 124/77 98 Room Air 06/08/16 20:34 98.4 06/08/16 20:30 92 Room Air 06/08/16 19:57 98.4 92 20 138/72 90 Room Air 06/08/16 16:00 98.1 87 20 122/73 98 Room Air Height (Feet): 5 Height (Inches): 5.00 Weight (Pounds): 190 General Appearance: no acute distress HEENT: normocephalic, atraumatic, anicteric, mucous membranes moist, PERRL, EOMI, pharynx normal, supple, no JVD Respiratory/Chest: lungs clear, normal breath sounds, no respiratory distress, no accessory muscle use Cardiovascular: normal rate, regular rhythm, no gallop/murmur, no JVD Abdomen: normal bowel sounds, soft, non tender, no organomegaly, non distended Genitourinary: other - no bay Extremities: no cyanosis Skin: no rash 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 Complete 05/31/16 18:00 Rectum VRE Culture - Final Enterococcus Faecium - Vre Complete Labs Test 06/07/16 05:00 White Blood Count 5.5 K/UL (4.8-10.8) Red Blood Count 3.08 M/UL (4.20-5.40) Hemoglobin 8.8 G/DL (12.0-16.0) Hematocrit 26.9 % (37.0-47.0) Mean Corpuscular Volume 87 FL (80-99) Mean Corpuscular Hemoglobin 28.7 PG (27.0-31.0) Mean Corpuscular Hemoglobin Concent 32.9 G/DL (32.0-36.0) Red Cell Distribution Width 17.5 % (11.6-14.8) Platelet Count 284 K/UL (150-450) Mean Platelet Volume 5.8 FL (6.5-10.1) Neutrophils (%) (Auto) 52.0 % (45.0-75.0) Lymphocytes (%) (Auto) 37.0 % (20.0-45.0) Monocytes (%) (Auto) 4.7 % (1.0-10.0) Eosinophils (%) (Auto) 5.8 % (0.0-3.0) Basophils (%) (Auto) 0.5 % (0.0-2.0) Sodium Level 137 mEQ/L (135-145) Potassium Level 3.5 mEQ/L (3.4-4.9) Chloride Level 100 mEQ/L (98-107) Carbon Dioxide Level 22 mEQ/L (20-30) Anion Gap 15 (5-15) Blood Urea Nitrogen 15 mg/dL (7-23) Creatinine 0.7 mg/dL (0.5-0.9) Estimat Glomerular Filtration Rate > 60 mL/min (>60) Glucose Level 75 mg/dL (74-106) Calcium Level 7.3 mg/dL (8.6-10.2) Labs Test 06/07/16 05:00 White Blood Count 5.5 K/UL (4.8-10.8) Red Blood Count 3.08 M/UL (4.20-5.40) Hemoglobin 8.8 G/DL (12.0-16.0) Hematocrit 26.9 % (37.0-47.0) Mean Corpuscular Volume 87 FL (80-99) Mean Corpuscular Hemoglobin 28.7 PG (27.0-31.0) Mean Corpuscular Hemoglobin Concent 32.9 G/DL (32.0-36.0) Red Cell Distribution Width 17.5 % (11.6-14.8) Platelet Count 284 K/UL (150-450) Mean Platelet Volume 5.8 FL (6.5-10.1) Neutrophils (%) (Auto) 52.0 % (45.0-75.0) Lymphocytes (%) (Auto) 37.0 % (20.0-45.0) Monocytes (%) (Auto) 4.7 % (1.0-10.0) Eosinophils (%) (Auto) 5.8 % (0.0-3.0) Basophils (%) (Auto) 0.5 % (0.0-2.0) Sodium Level 137 mEQ/L (135-145) Potassium Level 3.5 mEQ/L (3.4-4.9) Chloride Level 100 mEQ/L (98-107) Carbon Dioxide Level 22 mEQ/L (20-30) Anion Gap 15 (5-15) Blood Urea Nitrogen 15 mg/dL (7-23) Creatinine 0.7 mg/dL (0.5-0.9) Estimat Glomerular Filtration Rate > 60 mL/min (>60) Glucose Level 75 mg/dL (74-106) Calcium Level 7.3 mg/dL (8.6-10.2) Current Medications Medications (Trade) Dose Ordered Sig/Pineda Route PRN Reason Start Time Stop Time Status Last Admin Dose Admin Al Hydroxide/Mg Hydroxide (Mylanta) 30 ml EVERY 4 HOURS PRN ORAL dyspepsia 06/01/16 17:00 07/01/16 16:59 Dextrose (Dextrose 50%) STAT PRN IV Hypoglycemia 06/02/16 02:15 07/02/16 02:14 Diphenhydramine HCl (Benadryl) 25 mg EVERY 4 HOURS PRN ORAL Itching 06/01/16 17:00 07/01/16 16:59 Diphenhydramine HCl (Benadryl) 25 mg Q12HR@0830,2030 IV 06/07/16 18:00 07/07/16 17:59 06/09/16 08:49 Diphenhydramine HCl (Benadryl) 50 mg Q6H PRN IVP Itching 06/01/16 20:30 3/23/17 20:29 06/09/16 12:05 Heparin Sodium (Porcine) (Heparin 5000 units/ml) 5,000 units EVERY 12 HOURS SUBQ 06/01/16 21:00 07/01/16 20:59 06/06/16 21:23 Hydromorphone HCl (Dilaudid) 2 mg Q3H PRN IVP Severe Breakthru Pain (>7) 06/08/16 16:15 06/15/16 16:14 06/09/16 12:04 Magnesium Hydroxide (Mom) 30 ml HSPRN PRN ORAL Constipation 06/02/16 03:00 07/02/16 02:59 Ondansetron HCl (Zofran) 4 mg Q6H PRN IVP Nausea & Vomiting 06/01/16 20:30 07/01/16 20:29 06/05/16 11:15 Pantoprazole (Protonix) 40 mg DAILY ORAL 06/02/16 09:00 07/02/16 08:59 06/09/16 10:59 Sodium Chloride (Sodium Chloride 1000ml bag) 1,000 ml @ 100 mls/hr Q10H IVLG 06/01/16 16:00 07/01/16 15:59 06/08/16 09:30 Tigecycline/ Dextrose (Tygacil/D5W) 110 ml @ 220 mls/hr EVERY 12 HOURS IVPB 06/08/16 09:00 06/15/16 08:59 06/09/16 09:45 Zolpidem Tartrate 5 mg 5 mg HSPRN PRN ORAL Insomnia 06/02/16 02:30 07/02/16 02:29 GRZEGORZ MARTINEZ Jun 09, 2016 12:55
[2016-06-09] MEDS ORDERED: Heparin 2000 units/Ns 1000ml INJ ONE (13:30)
[2016-06-09] MEDS ORDERED: Sodium Bicarbonate 8.4% 50ml Inj IV ONE (13:30)
[2016-06-09] MEDS ORDERED: Lidocaine 1% Plain 30 ml INJ ONE (13:30)
[2016-06-09 16:00] VITALS: BP 125/77
[2016-06-09] MEDS ORDERED: Cathflo Alteplase 2mg Inj INJ ONE (18:00)
[2016-06-09 20:00] VITALS: BP 128/57
[2016-06-10] VITALS: BP 119/75
--- NOTE | 2016-06-10 01:58 | Progress Note ---
DATE: 06/09/2016 SUBJECTIVE: The patient is awake, alert, presently in no distress. No fevers. OBJECTIVE: VITAL SIGNS: Blood pressure 123/72, pulse 84, and respiratory rate 18. NECK: Supple. LUNGS: Clear. CARDIAC: Regular rhythm and rate. Normal S1 and S2 with a fourth heart sound. ABDOMEN: Soft. EXTREMITIES: No edema. No or splinter hemorrhages. IMPRESSION: The patient has recurring Acinetobacter bacteremia. The case was discussed with her in detail including the risk for endocarditis. As such, she is agreeable to proceed with transesophageal echocardiogram for diagnostic purposes. Karthik Parra M.D. DR: RANDAL JOB#: [id number] CC: MADI
[2016-06-10 04:00] VITALS: BP 124/69
[2016-06-10] MEDS: DiphenhydrAMINE 50mg/ml Inj IVP PRN ×2 (04:21→15:43)
[2016-06-10 05:10] LABS: BASOPHILS % (AUTO) 0.7 % (0.0-2.0); EOSINOPHILS % (AUTO) 4.6 % (0.0-3.0); LYMPHOCYTES % (AUTO) 42.2 % (20.0-45.0); MEAN CORPUSCULAR HEMOGLOBIN 28.3 PG (27.0-31.0); MEAN CORPUSCULAR HGB CONC 32.8 G/DL (32.0-36.0); MEAN CORPUSCULAR VOLUME 86 FL (80-99); MEAN PLATELET VOLUME 6.5 FL (6.5-10.1); MONOCYTES % (AUTO) 6.4 % (1.0-10.0); NEUTROPHILS % (AUTO) 46.1 % (45.0-75.0); PLATELET COUNT 305 K/UL (150-450); RED CELL DISTRIBUTION WIDTH 18.1 % (11.6-14.8); WHITE BLOOD COUNT 5.1 K/UL (4.8-10.8)
[2016-06-10 05:23] LABS: ANION GAP 10 (5-15); CALCIUM 7.1 mg/dL (8.6-10.2); CARBON DIOXIDE 28 mEQ/L (20-30); CHLORIDE 99 mEQ/L (98-107); CREATININE 0.5 mg/dL (0.5-0.9); GLOMERULAR FILTRATION RATE > 60 mL/min (>60); HEMOLYSIS 4; POTASSIUM 3.4 mEQ/L (3.4-4.9); SODIUM 137 mEQ/L (135-145)
[2016-06-10 08:56] VITALS: BP 124/73
[2016-06-10] MEDS: DiphenhydrAMINE 50mg/ml Inj IV SCH ×2 (09:42→20:58)
[2016-06-10] MEDS: Heparin 5000 units/ml inj SUBQ SCH ×2 (09:46→22:41)
[2016-06-10] MEDS: Tigecycline 50 MG in D5W 110 ML IVPB SCH ×2 (10:49→21:32)
[2016-06-10 12:43] VITALS: BP 113/65
--- NOTE | 2016-06-10 15:24 | Anethesia Preoperative Eval ---
Anesthesia Pre-op PMH/ROS General Date of Evaluation: Jun 10, 2016 Anesthesiologist: Shun ASA Score: ASA 3 Mallampati Score Class I : Soft palate, uvula, fauces, pillars visible Class II: Soft palate, uvula, fauces visible Class III: Soft palate, base of uvula visible Class IV: Only hard plate visible Mallampati Classification: Class II Surgeon: Fidel Diagnosis: ? endocarditis Surgical Procedure: SULAIMAN Anesthesia History: none Family History: no anesthesia problems Allergies: Coded Allergies: CEFTRIAXONE (Verified Allergy, Intermediate, SOB, HR-140bpm, face swollen , pt became red, 10/24/15) CODEINE (Verified Allergy, Intermediate, SWELLING, 01/03/11) LATEX (Verified Allergy, Intermediate, SWELLING, 01/03/11) PIPERACILLIN (Verified Allergy, Intermediate, Itching, 08/29/15) 08/29/15 tolerates Ceftaroline TAZOBACTAM (Verified Allergy, Intermediate, Itching, 01/29/15) POLYMYXIN B (Verified Allergy, Mild, Rash, 04/08/16) Suspected allergy reported by VANCOMYCIN (Verified Allergy, Mild, 07/15/14) ASPARAGINASE (Verified Allergy, Unknown, 01/28/14) CEFUROXIME (Unverified Allergy, Unknown, 04/19/16) IRON (Verified Allergy, Unknown, 01/28/14) Medications: see eMAR Past Medical History Cardiovascular: Reports: HTN, Denies: CAD, [place], arrhythmia, other, valve dz Pulmonary: Reports: asthma, Denies: COPD, ROMINA, other Gastrointestinal/Genitourinary: Reports: GERD, Denies: CRI, ESRD, other 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: Reports: other - paraplegic s/p SCI at T9, chronic pain syndrome, Denies: CVA, TIA, dementia, depression/anxiety Endocrine: Denies: DM, hypothyroidism, other, steroids HEENT: Denies: [place] (L), [place] (R), cataract (L), cataract (R), glaucoma, other Hematology/Immune: Reports: anemia, other - Bacteremia, Denies: DVT, bleeding disorder Musculoskeletal/Integumentary: Reports: other - osteomyelitis, Denies: DDD, DJD, OA, RA, edema Other: other - overweight Anesthesia Pre-op Phys. Exam Physician Exam Last Vital Signs Date Time Temp Pulse Resp B/P Pulse Ox O2 Delivery O2 Flow Rate FiO2 06/10/16 12:43 98.1 72 19 113/65 99 Room Air Constitutional: NAD Cardiovascular: other - tacy Respiratory: CTA Airway Exam Mallampati Score: Class II ROM: limited Anesthesia Pre-op A/P Labs Hematology Test 06/10/16 04:00 White Blood Count 5.1 K/UL (4.8-10.8) Red Blood Count 2.90 M/UL (4.20-5.40) L Hemoglobin 8.2 G/DL (12.0-16.0) L Hematocrit 25.1 % (37.0-47.0) L Mean Corpuscular Volume 86 FL (80-99) Mean Corpuscular Hemoglobin 28.3 PG (27.0-31.0) Mean Corpuscular Hemoglobin Concent 32.8 G/DL (32.0-36.0) Red Cell Distribution Width 18.1 % (11.6-14.8) H Platelet Count 305 K/UL (150-450) Mean Platelet Volume 6.5 FL (6.5-10.1) Neutrophils (%) (Auto) 46.1 % (45.0-75.0) Lymphocytes (%) (Auto) 42.2 % (20.0-45.0) Monocytes (%) (Auto) 6.4 % (1.0-10.0) Eosinophils (%) (Auto) 4.6 % (0.0-3.0) H Basophils (%) (Auto) 0.7 % (0.0-2.0) Erythrocyte Sedimentation Rate 100 MM/HR (0-20) H Chemistry Test 06/10/16 04:00 Sodium Level 137 mEQ/L (135-145) Potassium Level 3.4 mEQ/L (3.4-4.9) Chloride Level 99 mEQ/L (98-107) Carbon Dioxide Level 28 mEQ/L (20-30) Anion Gap 10 (5-15) Blood Urea Nitrogen 17 mg/dL (7-23) Creatinine 0.5 mg/dL (0.5-0.9) Estimat Glomerular Filtration Rate > 60 mL/min (>60) Glucose Level 82 mg/dL (74-106) Calcium Level 7.1 mg/dL (8.6-10.2) L Studies Pre-op Studies: EKG - ST Risk Assessment & Plan Assessment: ASA III Plan: GA Status Change Before Surgery: No Pre-Antibiotics Drug: JEWEL PARADA M.D. Jun 10, 2016 15:24
[2016-06-10 16:00] VITALS: BP 119/72
--- NOTE | 2016-06-10 19:46 | General Progress Note ---
Assessment/Plan Assessment/Plan IMPRESSION: 1. lyte imbalance. 2. paraplegia 3. Acute renal failure. 4. Discitis. 5. Osteomyelitis. 6. History of bacteremia. 7. Chronic opiate/narcotic dependence. 8. Anemia. 9. hyperglycemia 10. Anion gap. 11. bacteremia rule out endocarditis PLAN ID noted and appreciated exam noted replaced PICC cards noted; for SULAIMAN pain control nutrition encouraged MDR sensitive to Tygacil repeat blood cultures negative ID discussed in detail ongoing wound care needed per plastics close follow up remains acute and requires in hospital care for now will d/w ID impression, plan, and exam edited and reviewed in detail care discussed with RN Subjective Allergies: Coded Allergies: CEFTRIAXONE (Verified Allergy, Intermediate, SOB, HR-140bpm, face swollen , pt became red, 10/24/15) CODEINE (Verified Allergy, Intermediate, SWELLING, 01/03/11) LATEX (Verified Allergy, Intermediate, SWELLING, 01/03/11) PIPERACILLIN (Verified Allergy, Intermediate, Itching, 08/29/15) 08/29/15 tolerates Ceftaroline TAZOBACTAM (Verified Allergy, Intermediate, Itching, 01/29/15) POLYMYXIN B (Verified Allergy, Mild, Rash, 04/08/16) Suspected allergy reported by MD VANCOMYCIN (Verified Allergy, Mild, 07/15/14) ASPARAGINASE (Verified Allergy, Unknown, 01/28/14) CEFUROXIME (Unverified Allergy, Unknown, 04/19/16) IRON (Verified Allergy, Unknown, 01/28/14) Subjective PICC replaced awake compliant Objective Last 24 Hour Vital Signs Date Time Temp Pulse Resp B/P Pulse Ox O2 Delivery O2 Flow Rate FiO2 06/10/16 16:00 97.7 76 20 119/72 98 Room Air 06/10/16 12:43 98.1 72 19 113/65 99 Room Air 06/10/16 08:56 97.9 74 20 124/73 95 Room Air 06/10/16 04:38 98.2 06/10/16 04:00 97.8 94 18 124/69 100 Room Air 06/10/16 00:00 97.5 82 18 119/75 100 Room Air 06/09/16 20:00 98.2 88 21 128/57 91 Room Air Intake and Output 06/09/16 06/10/16 18:59 06:59 Intake Total 910 ml 2350 ml Balance 910 ml 2350 ml Intake Oral 600 ml 1240 ml IV Total 310 ml 1110 ml # Voids 2 3 Laboratory Tests 06/10/16 04:00: White Blood Count 5.1, Red Blood Count 2.90L, Hemoglobin 8.2L, Hematocrit 25.1L , Mean Corpuscular Volume 86, Mean Corpuscular Hemoglobin 28.3, Mean Corpuscular Hemoglobin Concent 32.8, Red Cell Distribution Width 18.1H, Platelet Count 305, Mean Platelet Volume 6.5, Neutrophils (%) (Auto) 46.1, Lymphocytes (%) (Auto) 42.2, Monocytes (%) (Auto) 6.4, Eosinophils (%) (Auto) 4.6H, Basophils (%) (Auto) 0.7, Erythrocyte Sedimentation Rate 100H, Sodium Level 137, Potassium Level 3.4, Chloride Level 99, Carbon Dioxide Level 28, Anion Gap 10, Blood Urea Nitrogen 17, Creatinine 0.5, Estimat Glomerular Filtration Rate > 60, Glucose Level 82, Calcium Level 7.1L Height (Feet): 5 Height (Inches): 5.00 Weight (Pounds): 190 Objective GENERAL: A well developed female lying comfortable. The patient is alert and oriented. HEENT: Negative. NECK: Supple. No adenopathy. Carotids 2+. LUNGS: Clear. Symmetric. without rhonchi or wheeze CARDIAC: S2. Regular rate and rhythm. Sinus tachycardia.without MRG ABDOMEN: Soft and nontender. obese; no HSM EXTREMITIES: No cyanosis or clubbing. There is no lower extremity edema. NEUROLOGIC: Grossly nonfocal, paraplegic LUANN MICHEL Jun 10, 2016 19:46
[2016-06-10 20:00] VITALS: BP 115/61
[2016-06-11] VITALS (11 sets, daily range): BP systolic 101–139; BP diastolic 62–99
[2016-06-11] MEDS: DiphenhydrAMINE 50mg/ml Inj IVP PRN ×3 (01:05→14:28)
--- NOTE | 2016-06-11 03:50 | Progress Note ---
DATE: 06/10/2016 CARDIOLOGY PROGRESS NOTE: SUBJECTIVE: The patient with no new complaints. She continues on IV antibiotics. OBJECTIVE: VITAL SIGNS: Blood pressure 113/65, heart rate 73, respiratory rate 19, and afebrile . NECK: Supple. LUNGS: Clear. CARDIAC: Regular. Normal S1, S2. ABDOMEN: Soft. No edema. IMPRESSION: 1. Recurring Acinetobacter bacteremia high risk for endocarditis. 2. Hypertension. PLAN: Continue IV antibiotics. Transesophageal echocardiogram. The patient aware of anesthesia plan and agrees to proceed. Karthik Parra M.D. DR: Marquez JOB#: [id number] CC:
[2016-06-11] MEDS: DiphenhydrAMINE 50mg/ml Inj IV SCH ×2 (08:30→20:29)
[2016-06-11] MEDS: Heparin 5000 units/ml inj SUBQ SCH ×2 (09:00→21:31)
--- NOTE | 2016-06-11 09:00 | General Progress Note ---
Assessment/Plan Assessment/Plan IMPRESSION: 1. lyte imbalance. 2. paraplegia 3. Acute renal failure. 4. Discitis. 5. Osteomyelitis. 6. History of bacteremia. 7. Chronic opiate/narcotic dependence. 8. Anemia. 9. hyperglycemia 10. Anion gap. 11. bacteremia rule out endocarditis PLAN ID noted and appreciated exam noted replaced PICC cards noted; for SULAIMAN pain control nutrition encouraged MDR sensitive to Tygacil; none new repeat blood cultures negative ID discussed in detail ongoing wound care close follow up monitor hemodynamics remains acute and requires in hospital care for now will d/w ID impression, plan, and exam edited and reviewed in detail care discussed with RN Subjective Allergies: Coded Allergies: CEFTRIAXONE (Verified Allergy, Intermediate, SOB, HR-140bpm, face swollen , pt became red, 10/24/15) CODEINE (Verified Allergy, Intermediate, SWELLING, 01/03/11) LATEX (Verified Allergy, Intermediate, SWELLING, 01/03/11) PIPERACILLIN (Verified Allergy, Intermediate, Itching, 08/29/15) 08/29/15 tolerates Ceftaroline TAZOBACTAM (Verified Allergy, Intermediate, Itching, 01/29/15) POLYMYXIN B (Verified Allergy, Mild, Rash, 04/08/16) Suspected allergy reported by MD VANCOMYCIN (Verified Allergy, Mild, 07/15/14) ASPARAGINASE (Verified Allergy, Unknown, 01/28/14) CEFUROXIME (Unverified Allergy, Unknown, 04/19/16) IRON (Verified Allergy, Unknown, 01/28/14) Subjective PICC replaced awake compliant for SULAIMAN Objective Last 24 Hour Vital Signs Date Time Temp Pulse Resp B/P Pulse Ox O2 Delivery O2 Flow Rate FiO2 06/11/16 06:12 97.5 06/11/16 04:00 97.7 86 18 127/70 99 Room Air 06/11/16 00:00 97.9 83 18 127/73 98 Room Air 06/10/16 20:00 97.5 95 22 115/61 96 Room Air 06/10/16 16:00 97.7 76 20 119/72 98 Room Air 06/10/16 12:43 98.1 72 19 113/65 99 Room Air Intake and Output 06/10/16 06/11/16 19:00 07:00 Intake Total 1410 ml 1490 ml Balance 1410 ml 1490 ml Intake Oral 600 ml 480 ml IV Total 810 ml 1010 ml # Voids 4 Height (Feet): 5 Height (Inches): 5.00 Weight (Pounds): 190 Objective GENERAL: A well developed female lying comfortable. The patient is alert and oriented. HEENT: Negative. NECK: Supple. No adenopathy. Carotids 2+. LUNGS: Clear. Symmetric. without rhonchi or wheeze CARDIAC: S2. Regular rate and rhythm. RRR.without MRG ABDOMEN: Soft and nontender. obese; no HSM EXTREMITIES: No cyanosis or clubbing. There is no lower extremity edema. NEUROLOGIC: Grossly nonfocal, paraplegic reviewed and edited LUANN MICHEL Jun 11, 2016 09:00
[2016-06-11] MEDS: Tigecycline 50 MG in D5W 110 ML IVPB SCH ×2 (09:09→21:16)
[2016-06-11] MEDS ORDERED: Propofol 10mg/ml 20ml IV ONE (10:27)
[2016-06-11] MEDS ORDERED: Lidocaine 1% MPF 10mg/ml 5ml ONE (10:30)
[2016-06-11] MEDS ORDERED: Norco 5mg/325mg tab ORAL PRN (10:30)
[2016-06-11] MEDS ORDERED: fentaNYL 100 mcg/2 mL IV PRN (10:30)
[2016-06-11] MEDS ORDERED: Hydromorphone 0.5mg/0.5ml inj IVP PRN (10:30)
--- NOTE | 2016-06-11 11:24 | Immediate Post-Op Evaluation ---
Immediate Post-Op Evalulation Immediate Post-Op Evalulation Procedure: SULAIMAN Date of Evaluation: Jun 11, 2016 Time of Evaluation: 11:23 IV Fluids: 200 Blood Products: 0 Estimated Blood Loss: 0 Urinary Output: 0 Blood Pressure Systolic: 104 Blood Pressure Diastolic: 63 Pulse Rate: 87 Respiratory Rate: 20 O2 Sat by Pulse Oximetry: 99 Temperature (Fahrenheit): 98 Pain Score (1-10): 1 Nausea: No Vomiting: No Complications na Patient Status: awake Hydration Status: adequate Given Within 1 Hr of Incision: EVENS Jarrell M.D. Jun 11, 2016 11:23
--- NOTE | 2016-06-11 11:28 | Pre-Procedure Note/Attestation ---
Pre-Procedure Note/Attestation Complete Prior to Procedure Planned Procedure: not applicable Procedure Narrative: transesophageal echocardiogram Indications for Procedure Pre-Operative Diagnosis: bacteremia; possible endocarditis Attestation I attest that I discussed the nature of the procedure; its benefits; risks and complications; and alternatives (and the risks and benefits of such alternatives ), prior to the procedure, with the patient (or the patient's legal floor representative). I attest that, if there was a reasonable possibility of needing a blood transfusion, the patient (or the patient's legal floor representative) was given the [facility] standardized written summary, pursuant to the [place] Blood Safety Act ([place] Health and Safety Code # 1645, as amended). I attest that I re-evaluated the patient just prior to the surgery and that there has been no change in the patient's H&P, except as documented below: TRICIA POPE Jun 11, 2016 11:28
--- NOTE | 2016-06-11 13:55 | 48 Hour Post Anesthesia Eval ---
Post Anesthesia Evaluation Procedure: SULAIMAN Date of Evaluation: Jun 11, 2016 Time of Evaluation: 13:53 Blood Pressure Systolic: 118 0: 74 Pulse Rate: 23 Respiratory Rate: 23 Temperature (Fahrenheit): 97.6 O2 Sat by Pulse Oximetry: 100 Airway: patent Nausea: No Vomiting: No Pain Intensity: 0 Hydration Status: adequate Cardiopulmonary Status: Stable Mental Status/LOC: patient returned to baseline Follow-up Care/Observations: 0 Post-Anesthesia Complications: 0 Follow-up care needed: N/A Austin Whittington MD Jun 11, 2016 13:55
--- NOTE | 2016-06-11 14:39 | Infectious Diseases Prog Note ---
Assessment/Plan Assessment/Plan ASSESSMENT AND PLAN: 1. acinetobacter bacteremia - this is 3rd episode including previous admission, lines have been changed and abx given multiple times, ? endocarditis, ? spinal epidural abscess/discitis, ? wound/osteo source - tygacil, patient likely has polmyxin allergy and was stopped with resolution of facial rash - surveillance blood cultures negative - TTE - no vegetation - indium scan negative - SULAIMAN done - await results - cannot do mri of spine secondary to body habitus, open MRI not available at [facility], ? arrange for outside MRI - spine surgery, if possible - previous picc line removed, new picc line now 2. polymicrobial sacral wound infection and osteo - s/p 6 week abx course, plastic surgery f/u 3. tachycardia 4. n/v - per primary 5. History of osteoarthritis and treatment. 6. Colostomy. 7. Paraplegia. 8. Anemia. 9. ? diabetes - patient denies dm hx, bs elevated only with infection per pt 10. Chronic pain management and chronic pain syndrome, anxiety 11. History of cholelithiasis. 12. Pain management for primary, opiate dependency 13. Multiple allergies to asparaginase, Rocephin, codeine, iron, Latex, piperacillin, tazobactam, and vancomycin, ? polymyxin 14. wound care per protocol and plastic surgery 15. The case was discussed with RN 16. The case was discussed with the patient. 17. fh-nc, sh-negative, mar noted 18. notes and records reviewed 19. vre colonization and isolation 20. d/w patient Subjective Subjective Constitutional: Denies: fever HEENT: Denies: congestion Respiratory: Denies: shortness of breath Cardiovascular: Denies: chest pain Gastrointestinal/Abdominal: Reports: other - + colostomy, Denies: nausea, vomiting Neurologic: Reports: weakness, Denies: headache Psychiatric: Denies: depression Skin: Denies: rash Hematologic: Denies: bleeding Musculoskeletal: Denies: pain Allergies: Coded Allergies: CEFTRIAXONE (Verified Allergy, Intermediate, SOB, HR-140bpm, face swollen , pt became red, 10/24/15) CODEINE (Verified Allergy, Intermediate, SWELLING, 01/03/11) LATEX (Verified Allergy, Intermediate, SWELLING, 01/03/11) PIPERACILLIN (Verified Allergy, Intermediate, Itching, 08/29/15) 08/29/15 tolerates Ceftaroline TAZOBACTAM (Verified Allergy, Intermediate, Itching, 01/29/15) POLYMYXIN B (Verified Allergy, Mild, Rash, 04/08/16) Suspected allergy reported by VANCOMYCIN (Verified Allergy, Mild, 07/15/14) ASPARAGINASE (Verified Allergy, Unknown, 01/28/14) CEFUROXIME (Unverified Allergy, Unknown, 04/19/16) IRON (Verified Allergy, Unknown, 01/28/14) Objective Vital Signs Last 24 Hour Vital Signs Date Time Temp Pulse Resp B/P Pulse Ox O2 Delivery O2 Flow Rate FiO2 06/11/16 13:55 23 23 100 06/11/16 11:55 97.6 74 23 118/72 100 Nasal Cannula 3.0 06/11/16 11:40 75 19 117/70 100 Nasal Cannula 3.0 06/11/16 11:25 82 15 110/70 100 Nasal Cannula 3.0 06/11/16 11:23 87 20 99 06/11/16 11:20 86 15 104/63 99 Nasal Cannula 3.0 06/11/16 11:15 97.0 87 14 101/72 99 Nasal Cannula 3.0 06/11/16 09:40 98.0 06/11/16 08:22 97.5 68 20 137/62 97 Room Air 06/11/16 04:00 97.7 86 18 127/70 99 Room Air 06/11/16 00:00 97.9 83 18 127/73 98 Room Air 06/10/16 20:00 97.5 95 22 115/61 96 Room Air 06/10/16 16:00 97.7 76 20 119/72 98 Room Air Height (Feet): 5 Height (Inches): 6.00 Weight (Pounds): 190 General Appearance: no acute distress HEENT: normocephalic, atraumatic, anicteric, mucous membranes moist, PERRL, EOMI, pharynx normal, supple, no JVD Respiratory/Chest: lungs clear, normal breath sounds, no respiratory distress, no accessory muscle use Cardiovascular: normal rate, regular rhythm, no gallop/murmur, no JVD Abdomen: normal bowel sounds, soft, non tender, no organomegaly, non distended Genitourinary: other - no bay Extremities: no cyanosis Skin: no rash, other - wounds covered 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 Complete 05/31/16 18:00 Rectum VRE Culture - Final Enterococcus Faecium - Vre Complete Labs Test 06/10/16 04:00 White Blood Count 5.1 K/UL (4.8-10.8) Red Blood Count 2.90 M/UL (4.20-5.40) Hemoglobin 8.2 G/DL (12.0-16.0) Hematocrit 25.1 % (37.0-47.0) Mean Corpuscular Volume 86 FL (80-99) Mean Corpuscular Hemoglobin 28.3 PG (27.0-31.0) Mean Corpuscular Hemoglobin Concent 32.8 G/DL (32.0-36.0) Red Cell Distribution Width 18.1 % (11.6-14.8) Platelet Count 305 K/UL (150-450) Mean Platelet Volume 6.5 FL (6.5-10.1) Neutrophils (%) (Auto) 46.1 % (45.0-75.0) Lymphocytes (%) (Auto) 42.2 % (20.0-45.0) Monocytes (%) (Auto) 6.4 % (1.0-10.0) Eosinophils (%) (Auto) 4.6 % (0.0-3.0) Basophils (%) (Auto) 0.7 % (0.0-2.0) Erythrocyte Sedimentation Rate 100 MM/HR (0-20) Sodium Level 137 mEQ/L (135-145) Potassium Level 3.4 mEQ/L (3.4-4.9) Chloride Level 99 mEQ/L (98-107) Carbon Dioxide Level 28 mEQ/L (20-30) Anion Gap 10 (5-15) Blood Urea Nitrogen 17 mg/dL (7-23) Creatinine 0.5 mg/dL (0.5-0.9) Estimat Glomerular Filtration Rate > 60 mL/min (>60) Glucose Level 82 mg/dL (74-106) Calcium Level 7.1 mg/dL (8.6-10.2) Current Medications Medications (Trade) Dose Ordered Sig/Pineda Route PRN Reason Start Time Stop Time Status Last Admin Dose Admin Al Hydroxide/Mg Hydroxide (Mylanta) 30 ml EVERY 4 HOURS PRN ORAL dyspepsia 06/01/16 17:00 07/01/16 16:59 Dextrose (Dextrose 50%) STAT PRN IV Hypoglycemia 06/02/16 02:15 07/02/16 02:14 Diphenhydramine HCl (Benadryl) 25 mg EVERY 4 HOURS PRN ORAL Itching 06/01/16 17:00 07/01/16 16:59 Diphenhydramine HCl (Benadryl) 25 mg Q12HR@0830,2030 IV 06/07/16 18:00 07/07/16 17:59 06/10/16 20:58 Diphenhydramine HCl (Benadryl) 50 mg Q6H PRN IVP Itching 06/01/16 20:30 07/01/16 20:29 06/11/16 14:28 Heparin Sodium (Porcine) (Heparin 5000 units/ml) 5,000 units EVERY 12 HOURS SUBQ 06/01/16 21:00 07/01/16 20:59 06/10/16 22:41 Hydromorphone HCl (Dilaudid) 2 mg Q3H PRN IVP Severe Breakthru Pain (>7) 06/08/16 16:15 06/15/16 16:14 06/11/16 14:29 Magnesium Hydroxide (Mom) 30 ml HSPRN PRN ORAL Constipation 06/02/16 03:00 07/02/16 02:59 Ondansetron HCl (Zofran) 4 mg Q6H PRN IVP Nausea & Vomiting 06/01/16 20:30 07/01/16 20:29 06/05/16 11:15 Pantoprazole (Protonix) 40 mg DAILY ORAL 06/02/16 09:00 07/02/16 08:59 06/10/16 09:43 Sodium Chloride (Sodium Chloride 1000ml bag) 1,000 ml @ 100 mls/hr Q10H IVLG 06/01/16 16:00 07/01/16 15:59 06/11/16 05:38 Tigecycline/ Dextrose (Tygacil/D5W) 110 ml @ 220 mls/hr EVERY 12 HOURS IVPB 06/08/16 09:00 06/15/16 08:59 06/11/16 09:09 Zolpidem Tartrate 5 mg 5 mg HSPRN PRN ORAL Insomnia 06/02/16 02:30 07/02/16 02:29 GRZEGORZ MARTINEZ Jun 11, 2016 14:39
--- NOTE | 2016-06-11 21:08 | Progress Note ---
DATE: 06/11/2016 CARDIOLOGY PROGRESS NOTE SUBJECTIVE: The patient has no new complaints. She continues on IV antibiotics. OBJECTIVE: VITAL SIGNS: Blood pressure of 137/62, pulse 68, respirations 20, and afebrile. LUNGS: Clear. CARDIAC: Regular. Normal S1 and S2. No new murmur. ABDOMEN: Soft. EXTREMITIES: No edema. IMPRESSION: 1. Persistent bacteremia, Acinetobacter. 2. Sepsis. 3. Possible endocarditis. PLAN: 1. Antibiotics. 2. Pain control. 3. Monitor volume status with cardiorenal parameters. 4. Diagnostic transesophageal echocardiogram plan today. Karthik Parra M.D. DR: MAGNO JOB#: [id number] CC:
--- NOTE | 2016-06-11 23:29 | Procedure Note ---
June 11, 2016 PROCEDURE NOTE TRANSESOPHAGEAL ECHOCARDIOGRAM THREAD SEPARATOR: Carlos Eduardo Hidalgo M.D. PROCEDURE: Informed consent obtained from patient. COMPLICATIONS: None. DESCRIPTION OF PROCEDURE: Under anesthesia (see anesthesia note) the patient's oral cavity was intubated with the transesophageal echocardiogram probe. No resistance or complications were encountered. Multiplane imaging was performed. The probe was then removed and the patient remained hemodynamically stable with adequate oxygen saturations throughout and no arrhythmias. FINDINGS: Mitral aortic tricuspid and pulmonic valves were all well visualized. Left ventricular ejection fraction was globally normal. Regional wall motion was not assessed. The left atrial appendage was noted and it was free of any clot. The aorta was noted to be free of any significant plaquing. There was trace mitral regurgitation, trace aortic insufficiency and trace tricuspid insufficiency. There was no evidence of any valvular vegetations. CONCLUSION: No echocardiographic evidence for endocarditis. Karthik Parra M.D. DR: RANDAL JOB#: [id number] CC: MADI
[2016-06-12 00:48] VITALS: BP 126/76
[2016-06-12 04:00] VITALS: BP 135/79
[2016-06-12] MEDS: DiphenhydrAMINE 50mg/ml Inj IV SCH ×2 (08:45→20:31)
[2016-06-12] MEDS: Heparin 5000 units/ml inj SUBQ SCH ×2 (09:00→20:31)
[2016-06-12] MEDS: Tigecycline 50 MG in D5W 110 ML IVPB SCH ×2 (10:30→20:31)
[2016-06-12 12:00] VITALS: BP 139/77
[2016-06-12] MEDS: DiphenhydrAMINE 50mg/ml Inj IVP PRN (15:52)
[2016-06-12 16:15] VITALS: BP 128/89
[2016-06-12 20:00] VITALS: BP 132/83
--- NOTE | 2016-06-12 22:04 | General Progress Note ---
Assessment/Plan Assessment/Plan IMPRESSION: 1. lyte imbalance. 2. paraplegia 3. Acute renal failure. 4. Discitis. 5. Osteomyelitis. 6. History of bacteremia. 7. Chronic opiate/narcotic dependence. 8. Anemia. 9. hyperglycemia 10. Anion gap. 11. bacteremia rule out endocarditis PLAN ID noted exam noted possible SULAIMAN pain control nutrition encouraged MDR sensitive to Tygacil; none new repeat blood cultures negative ID discussed in detail ongoing wound care monitor hemodynamics remains acute will d/w ID impression, plan, and exam edited and reviewed in detail care discussed with RN Subjective Allergies: Coded Allergies: CEFTRIAXONE (Verified Allergy, Intermediate, SOB, HR-140bpm, face swollen , pt became red, 10/24/15) CODEINE (Verified Allergy, Intermediate, SWELLING, 01/03/11) LATEX (Verified Allergy, Intermediate, SWELLING, 01/03/11) PIPERACILLIN (Verified Allergy, Intermediate, Itching, 08/29/15) 08/29/15 tolerates Ceftaroline TAZOBACTAM (Verified Allergy, Intermediate, Itching, 01/29/15) POLYMYXIN B (Verified Allergy, Mild, Rash, 04/08/16) Suspected allergy reported by VANCOMYCIN (Verified Allergy, Mild, 07/15/14) ASPARAGINASE (Verified Allergy, Unknown, 01/28/14) CEFUROXIME (Unverified Allergy, Unknown, 04/19/16) IRON (Verified Allergy, Unknown, 01/28/14) Subjective PICC in place awake compliant for SULAIMAN Objective Last 24 Hour Vital Signs Date Time Temp Pulse Resp B/P Pulse Ox O2 Delivery O2 Flow Rate FiO2 06/12/16 21:01 97.5 06/12/16 20:00 97.5 87 18 132/83 97 06/12/16 16:15 98.1 83 18 128/89 98 Nasal Cannula 2.0 06/12/16 12:00 97.9 83 20 139/77 98 Room Air 06/12/16 04:00 97.7 81 21 135/79 98 Room Air 06/12/16 00:48 97.2 89 19 126/76 96 Room Air Intake and Output 06/11/16 06/12/16 19:00 07:00 Intake Total 1870 ml 2009 ml Output Total 0 ml Balance 1870 ml 2010 ml Intake Oral 360 ml 1000 ml IV Total 1510 ml 1010 ml Output Urine Total 0 ml # Voids 1 2 Height (Feet): 5 Height (Inches): 6.00 Weight (Pounds): 190 Objective GENERAL: A well developed female lying comfortable. The patient is alert and oriented. HEENT: Negative. NECK: Supple. No adenopathy. Carotids 2+. LUNGS: Clear. Symmetric. without rhonchi or wheeze CARDIAC: S2. Regular rate and rhythm. RRR.without MRG ABDOMEN: Soft and nontender. obese; no HSM EXTREMITIES: No cyanosis or clubbing. There is no lower extremity edema. NEUROLOGIC: Grossly nonfocal, paraplegic reviewed and edited LUANN MICHEL Jun 12, 2016 22:04
[2016-06-13] VITALS: BP 131/83
[2016-06-13] MEDS: DiphenhydrAMINE 50mg/ml Inj IVP PRN ×3 (02:38→16:38)
[2016-06-13 04:00] VITALS: BP 123/77
[2016-06-13 07:57] VITALS: BP 135/82
[2016-06-13] MEDS: DiphenhydrAMINE 50mg/ml Inj IV SCH ×2 (08:30→20:40)
[2016-06-13] MEDS: Heparin 5000 units/ml inj SUBQ SCH ×2 (09:00→20:44)
[2016-06-13] MEDS: Tigecycline 50 MG in D5W 110 ML IVPB SCH ×2 (09:07→20:40)
[2016-06-13] MEDS ORDERED: NS 275ml ONE (11:10)
--- NOTE | 2016-06-13 12:21 | Infectious Diseases Prog Note ---
Assessment/Plan Assessment/Plan ASSESSMENT AND PLAN: 1. acinetobacter bacteremia - ? recurrent line infection, SULAIMAN negative for vegetation, ? spinal discitis/sacral osteo as source, indium scan negative - tygacil - day # 13 post line removal (new picc line placed 06/01/16) - plan on 21 day tygacil course post line removal (day # 13/21 now) - surveillance blood cultures negative - indium scan negativ - cannot do mri of spine secondary to body habitus, open MRI not available at [place], ? 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 tachycardia 4. n/v - per primary 5. History of osteoarthritis and treatment. 6. Colostomy. 7. Paraplegia. 8. Anemia. 9. ? diabetes - patient denies dm hx, bs elevated only with infection per pt 10. Chronic pain management and chronic pain syndrome, anxiety 11. History of cholelithiasis. 12. Pain management for primary, opiate dependency 13. Multiple allergies to asparaginase, Rocephin, codeine, iron, Latex, piperacillin, tazobactam, and vancomycin, ? polymyxin 14. wound care per protocol and plastic surgery 15. The case was discussed with RN 16. The case was discussed with the patient. 17. fh-nc, sh-negative, mar noted 18. notes and records reviewed 19. vre colonization and isolation 20. d/w patient Subjective Subjective Constitutional: Denies: fever HEENT: Denies: congestion Respiratory: Denies: shortness of breath Cardiovascular: Denies: chest pain Gastrointestinal/Abdominal: Reports: other - + colostomy, Denies: nausea, vomiting Neurologic: Reports: weakness, Denies: headache Psychiatric: Denies: depression Skin: Reports: other - rash stable Hematologic: Denies: bleeding Musculoskeletal: Denies: pain Allergies: Coded Allergies: CEFTRIAXONE (Verified Allergy, Intermediate, SOB, HR-140bpm, face swollen , pt became red, 10/24/15) CODEINE (Verified Allergy, Intermediate, SWELLING, 01/03/11) LATEX (Verified Allergy, Intermediate, SWELLING, 01/03/11) PIPERACILLIN (Verified Allergy, Intermediate, Itching, 08/29/15) 08/29/15 tolerates Ceftaroline TAZOBACTAM (Verified Allergy, Intermediate, Itching, 01/29/15) POLYMYXIN B (Verified Allergy, Mild, Rash, 04/08/16) Suspected allergy reported by VANCOMYCIN (Verified Allergy, Mild, 07/15/14) ASPARAGINASE (Verified Allergy, Unknown, 01/28/14) CEFUROXIME (Unverified Allergy, Unknown, 04/19/16) IRON (Verified Allergy, Unknown, 01/28/14) Objective Vital Signs Last 24 Hour Vital Signs Date Time Temp Pulse Resp B/P Pulse Ox O2 Delivery O2 Flow Rate FiO2 06/13/16 09:36 97.2 06/13/16 07:57 97.2 86 16 135/82 97 Room Air 06/13/16 04:00 97.9 83 20 123/77 96 Room Air 06/13/16 00:00 98.1 71 18 131/83 96 Room Air 06/12/16 20:00 97.5 87 18 132/83 97 06/12/16 16:15 98.1 83 18 128/89 98 Nasal Cannula 2.0 Height (Feet): 5 Height (Inches): 6.00 Weight (Pounds): 190 General Appearance: no acute distress HEENT: normocephalic, atraumatic, anicteric, mucous membranes moist, PERRL, EOMI, pharynx normal, supple, no JVD Respiratory/Chest: lungs clear, normal breath sounds, no respiratory distress, no accessory muscle use Cardiovascular: normal rate, regular rhythm, no gallop/murmur, no JVD Abdomen: normal bowel sounds, soft, non tender, no organomegaly, non distended Genitourinary: other - no bay Extremities: no cyanosis Skin: other 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 Complete 05/31/16 18:00 Rectum VRE Culture - Final Enterococcus Faecium - Vre Complete wbc - 5.1 hgb - 8.2 cr - 0.5 Current Medications Medications (Trade) Dose Ordered Sig/Pineda Route PRN Reason Start Time Stop Time Status Last Admin Dose Admin Al Hydroxide/Mg Hydroxide (Mylanta) 30 ml EVERY 4 HOURS PRN ORAL dyspepsia 06/01/16 17:00 07/01/16 16:59 Dextrose (Dextrose 50%) STAT PRN IV Hypoglycemia 06/02/16 02:15 07/02/16 02:14 Diphenhydramine HCl (Benadryl) 25 mg EVERY 4 HOURS PRN ORAL Itching 06/01/16 17:00 07/01/16 16:59 Diphenhydramine HCl (Benadryl) 25 mg Q12HR@0830,2030 IV 06/07/16 18:00 07/07/16 17:59 06/12/16 20:31 Diphenhydramine HCl (Benadryl) 50 mg Q6H PRN IVP Itching 06/01/16 20:30 07/01/16 20:29 06/13/16 09:07 Heparin Sodium (Porcine) (Heparin 5000 units/ml) 5,000 units EVERY 12 HOURS SUBQ 06/01/16 21:00 07/01/16 20:59 06/11/16 21:31 Hydromorphone HCl (Dilaudid) 2 mg Q3H PRN IVP Severe Breakthru Pain (>7) 06/08/16 16:15 06/15/16 16:14 06/13/16 09:06 Magnesium Hydroxide (Mom) 30 ml HSPRN PRN ORAL Constipation 06/02/16 03:00 07/02/16 02:59 Ondansetron HCl (Zofran) 4 mg Q6H PRN IVP Nausea & Vomiting 06/01/16 20:30 07/01/16 20:29 06/05/16 11:15 Pantoprazole (Protonix) 40 mg DAILY ORAL 06/02/16 09:00 07/02/16 08:59 06/13/16 09:07 Sodium Chloride (Sodium Chloride 1000ml bag) 1,000 ml @ 100 mls/hr Q10H IVLG 06/01/16 16:00 07/01/16 15:59 06/13/16 06:01 Tigecycline/ Dextrose (Tygacil/D5W) 110 ml @ 220 mls/hr EVERY 12 HOURS IVPB 06/08/16 09:00 06/15/16 08:59 06/13/16 09:07 Zolpidem Tartrate 5 mg 5 mg HSPRN PRN ORAL Insomnia 06/02/16 02:30 07/02/16 02:29 GRZEGORZ MARTINEZ Jun 13, 2016 12:21
[2016-06-13 12:40] VITALS: BP 137/76
--- NOTE | 2016-06-13 14:13 | General Progress Note ---
Assessment/Plan Assessment/Plan IMPRESSION: 1. lyte imbalance. 2. paraplegia 3. Acute renal failure. 4. Discitis. 5. Osteomyelitis. 6. History of bacteremia. 7. Chronic opiate/narcotic dependence. 8. Anemia. 9. hyperglycemia 10. Anion gap. 11. bacteremia rule out endocarditis PLAN ID noted exam noted SULAIMAN pain control nutrition encouraged MDR sensitive to Tygacil; none new repeat blood cultures negative ID discussed in detail monitor hemodynamics remains acute will d/w ID regarding dc plans impression, plan, and exam edited and reviewed in detail care discussed with RN Subjective Allergies: Coded Allergies: CEFTRIAXONE (Verified Allergy, Intermediate, SOB, HR-140bpm, face swollen , pt became red, 10/24/15) CODEINE (Verified Allergy, Intermediate, SWELLING, 01/03/11) LATEX (Verified Allergy, Intermediate, SWELLING, 01/03/11) PIPERACILLIN (Verified Allergy, Intermediate, Itching, 08/29/15) 08/29/15 tolerates Ceftaroline TAZOBACTAM (Verified Allergy, Intermediate, Itching, 01/29/15) POLYMYXIN B (Verified Allergy, Mild, Rash, 04/08/16) Suspected allergy reported by VANCOMYCIN (Verified Allergy, Mild, 07/15/14) ASPARAGINASE (Verified Allergy, Unknown, 01/28/14) CEFUROXIME (Unverified Allergy, Unknown, 04/19/16) IRON (Verified Allergy, Unknown, 01/28/14) Subjective PICC in place no real distress for SULAIMAN Objective Last 24 Hour Vital Signs Date Time Temp Pulse Resp B/P Pulse Ox O2 Delivery O2 Flow Rate FiO2 06/13/16 13:38 97.5 06/13/16 12:40 97.5 83 16 137/76 99 Room Air 06/13/16 07:57 97.2 86 16 135/82 97 Room Air 06/13/16 04:00 97.9 83 20 123/77 96 Room Air 06/13/16 00:00 98.1 71 18 131/83 96 Room Air 06/12/16 20:00 97.5 87 18 132/83 97 06/12/16 16:15 98.1 83 18 128/89 98 Nasal Cannula 2.0 Intake and Output 06/12/16 06/13/16 19:00 07:00 Intake Total 1280 ml 1830 ml Output Total 0 ml Balance 1280 ml 1830 ml Intake Oral 780 ml 520 ml IV Total 500 ml 1310 ml Stool Total 0 ml # Voids 1 Height (Feet): 5 Height (Inches): 6.00 Weight (Pounds): 190 Objective GENERAL: A well developed female lying comfortable. The patient is alert and oriented. HEENT: Negative. NECK: Supple. No adenopathy. Carotids 2+. LUNGS: Clear. Symmetric. without rhonchi or wheeze CARDIAC: S2. Regular rate and rhythm. RRR.without MRG ABDOMEN: Soft and nontender. obese; no HSM EXTREMITIES: No cyanosis or clubbing. There is no lower extremity edema. NEUROLOGIC: Grossly nonfocal, paraplegic reviewed and edited LUANN MICHEL Jun 13, 2016 14:13
[2016-06-13 16:00] VITALS: BP 138/71
--- NOTE | 2016-06-13 17:28 | Progress Note ---
DATE: 06/12/2016 CARDIOLOGY PROGRESS NOTE SUBJECTIVE: The patient is without distress. No nausea or vomiting. No difficulty swallowing continuing. OBJECTIVE: VITAL SIGNS: Afebrile, blood pressure 132/83, pulse 87, respiratory rate 18 and afebrile. LUNGS: Bilateral breath sounds. HEART: Regular rhythm rate. Normal S1 and S2. ABDOMEN: Soft. EXTREMITIES: No edema. LABORATORY AND DIAGNOSTIC DATA: Transesophageal echocardiogram yesterday was negative for vegetations suggesting low likelihood of endocarditis. IMPRESSION: 1. Recurring bacteremia. 2. Low clinical suspicion for endocarditis based on clinical and diagnostic workup. PLAN: 1. Antibiotics per Infectious Disease lead sales consultant. 2. Monitor electrolytes and cardiorenal parameters. Karthik Parra M.D. DR: LITTLE JOB#: [id number] CC:
[2016-06-13 19:00] VITALS: BP_SYST 133; BP_SYST 142; BP_DIAS 70; BP_DIAS 78
[2016-06-14] VITALS: BP 140/84
[2016-06-14] MEDS: DiphenhydrAMINE 50mg/ml Inj IVP PRN ×2 (02:52→15:49)
[2016-06-14 04:00] VITALS: BP 137/76
[2016-06-14 07:25] LABS: BASOPHILS % (AUTO) 0.6 % (0.0-2.0); EOSINOPHILS % (AUTO) 7.1 % (0.0-3.0); LYMPHOCYTES % (AUTO) 35.3 % (20.0-45.0); MEAN CORPUSCULAR HEMOGLOBIN 28.5 PG (27.0-31.0); MEAN CORPUSCULAR HGB CONC 32.2 G/DL (32.0-36.0); MEAN CORPUSCULAR VOLUME 88 FL (80-99); MEAN PLATELET VOLUME 6.4 FL (6.5-10.1); MONOCYTES % (AUTO) 5.7 % (1.0-10.0); NEUTROPHILS % (AUTO) 51.3 % (45.0-75.0); PLATELET COUNT 347 K/UL (150-450); RED BLOOD COUNT 2.89 M/UL (4.20-5.40); RED CELL DISTRIBUTION WIDTH 17.4 % (11.6-14.8); WHITE BLOOD COUNT 5.4 K/UL (4.8-10.8)
[2016-06-14 07:48] LABS: ALANINE AMINOTRANSFERASE 8 U/L (3-33); ALBUMIN/GLOBULIN RATIO 0.3 (1.0-2.7); ANION GAP 13 (5-15); ASPARTATE AMINO TRANSFERASE 10 U/L (5-40); CALCIUM 7.6 mg/dL (8.6-10.2); CARBON DIOXIDE 24 mEQ/L (20-30); CHLORIDE 105 mEQ/L (98-107); CREATININE 0.7 mg/dL (0.5-0.9); GLOMERULAR FILTRATION RATE > 60 mL/min (>60); HEMOLYSIS 5; POTASSIUM 3.5 mEQ/L (3.4-4.9); SODIUM 142 mEQ/L (135-145); TOTAL PROTEIN 5.7 g/dL (6.6-8.7)
[2016-06-14 08:00] VITALS: BP 140/78
--- NOTE | 2016-06-14 08:32 | General Progress Note ---
Assessment/Plan Assessment/Plan IMPRESSION: 1. lyte imbalance. 2. paraplegia 3. Acute renal failure. 4. Discitis. 5. Osteomyelitis. 6. History of bacteremia. 7. Chronic opiate/narcotic dependence. 8. Anemia. 9. hyperglycemia 10. Anion gap. 11. bacteremia rule out endocarditis PLAN ID noted exam noted SULAIMAN negative pain control nutrition encouraged MDR sensitive to Tygacil; dc with 1 week repeat blood cultures negative ID discussed in detail monitor hemodynamics remains acute will d/w ID regarding dc plans outpatient spine evaluation and MRI if possible impression, plan, and exam edited and reviewed in detail care discussed with RN Subjective Allergies: Coded Allergies: CEFTRIAXONE (Verified Allergy, Intermediate, SOB, HR-140bpm, face swollen , pt became red, 10/24/15) CODEINE (Verified Allergy, Intermediate, SWELLING, 01/03/11) LATEX (Verified Allergy, Intermediate, SWELLING, 01/03/11) PIPERACILLIN (Verified Allergy, Intermediate, Itching, 08/29/15) 08/29/15 tolerates Ceftaroline TAZOBACTAM (Verified Allergy, Intermediate, Itching, 01/29/15) POLYMYXIN B (Verified Allergy, Mild, Rash, 04/08/16) Suspected allergy reported by MD VANCOMYCIN (Verified Allergy, Mild, 07/15/14) ASPARAGINASE (Verified Allergy, Unknown, 01/28/14) CEFUROXIME (Unverified Allergy, Unknown, 04/19/16) IRON (Verified Allergy, Unknown, 01/28/14) Subjective PICC in place no real distress sleepy Objective Last 24 Hour Vital Signs Date Time Temp Pulse Resp B/P Pulse Ox O2 Delivery O2 Flow Rate FiO2 06/14/16 04:00 97.8 79 18 137/76 96 Room Air 06/14/16 00:00 97.7 83 18 140/84 96 Room Air 06/13/16 20:33 97.5 06/13/16 19:00 97.9 80 18 142/78 96 Room Air 06/13/16 16:00 98.0 83 18 138/71 95 Room Air 06/13/16 12:40 97.5 83 16 137/76 99 Room Air Intake and Output 06/13/16 06/14/16 18:59 06:59 Intake Total 1300 ml 2300 ml Balance 1300 ml 2300 ml Intake Oral 1200 ml 990 ml IV Total 100 ml 1310 ml # Voids 1 4 Laboratory Tests 06/14/16 03:40: White Blood Count 5.4, Red Blood Count 2.89L, Hemoglobin 8.2L, Hematocrit 25.6L , Mean Corpuscular Volume 88, Mean Corpuscular Hemoglobin 28.5, Mean Corpuscular Hemoglobin Concent 32.2, Red Cell Distribution Width 17.4H, Platelet Count 347, Mean Platelet Volume 6.4L, Neutrophils (%) (Auto) 51.3, Lymphocytes (%) (Auto) 35.3, Monocytes (%) (Auto) 5.7, Eosinophils (%) (Auto) 7.1H, Basophils (%) (Auto) 0.6, Sodium Level 142, Potassium Level 3.5, Chloride Level 105, Carbon Dioxide Level 24, Anion Gap 13, Blood Urea Nitrogen 20, Creatinine 0.7, Estimat Glomerular Filtration Rate > 60, Glucose Level 80, Calcium Level 7.6L, Total Bilirubin < 0.2, Aspartate Amino Transf (AST/SGOT) 10 , Alanine Aminotransferase (ALT/SGPT) 8, Alkaline Phosphatase 204H, Total Protein 5.7L, Albumin 1.4L, Globulin 4.3, Albumin/Globulin Ratio 0.3L Height (Feet): 5 Height (Inches): 6.00 Weight (Pounds): 190 Objective GENERAL: A well developed female lying comfortable. The patient is alert and oriented. HEENT: Negative. NECK: Supple. No adenopathy. Carotids 2+. LUNGS: Clear. Symmetric. without rhonchi or wheeze CARDIAC: S2. Regular rate and rhythm. RRR.without MRG ABDOMEN: Soft and nontender. obese; no HSM EXTREMITIES: No cyanosis or clubbing. There is no lower extremity edema. NEUROLOGIC: Grossly nonfocal, paraplegic reviewed and edited LUANN MICHEL Jun 14, 2016 08:32
[2016-06-14] MEDS: Heparin 5000 units/ml inj SUBQ SCH ×2 (09:00→21:23)
[2016-06-14] MEDS: DiphenhydrAMINE 50mg/ml Inj IV SCH ×2 (09:02→20:21)
[2016-06-14] MEDS: Tigecycline 50 MG in D5W 110 ML IVPB SCH ×2 (09:45→21:17)
[2016-06-14 12:07] VITALS: BP 126/71
--- NOTE | 2016-06-14 13:20 | Progress Note ---
DATE: 06/13/2016 CARDIOLOGY PROGRESS NOTE SUBJECTIVE: The patient is without distress. OBJECTIVE: VITAL SIGNS: Stable, afebrile. NECK: Supple. LUNGS: Clear. CARDIAC: Regular, normal S1, S2. ABDOMEN: Soft. EXTREMITIES: Trace edema. DIAGNOSTIC DATA: SULAIMAN was negative for endocarditis. IMPRESSION: Bacteremia, likely source is spine. PLAN: Antibiotics per Infectious Diseases economic consultant. Monitor electrolytes. Karthik Parra M.D. DR: MILLIE JOB#: [id number] CC:
[2016-06-14 16:00] VITALS: BP 147/81
[2016-06-14 20:00] VITALS: BP 139/74
[2016-06-15] VITALS: BP 138/76
[2016-06-15] MEDS: DiphenhydrAMINE 50mg/ml Inj IVP PRN ×2 (03:06→16:43)
[2016-06-15 04:00] VITALS: BP 137/85
--- NOTE | 2016-06-15 06:48 | Progress Note ---
DATE: 06/14/2016 CARDIOLOGY PROGRESS NOTE SUBJECTIVE: The patient is comfortable, in no distress. No shortness of breath. No chest pain. OBJECTIVE: VITAL SIGNS: Blood pressure 137/76, pulse 79, respirations 18, and afebrile. NECK: Supple. LUNGS: Clear. CARDIAC: Regular rate. Normal S1 and S2 with no murmur. ABDOMEN: Soft. EXTREMITIES: No edema. PICC line in place. IMPRESSION: 1. Bacteremia. 2. Transesophageal echocardiogram negative for endocarditis. 3. Osteomyelitis of the spine. 4. Anemia. 5. Severe protein-calorie malnutrition PLAN: 1. Antibiotics. 2. Nutritional support. 3. Protein supplement. 4. Vitamin supplements. 5. May need transfusion if hemoglobin drops further. Karthik Parra M.D. DR: Ruma JOB#: [id number] CC:
[2016-06-15] MEDS: DiphenhydrAMINE 50mg/ml Inj IV SCH ×2 (08:00→20:30)
[2016-06-15 08:33] VITALS: BP 128/76
[2016-06-15] MEDS: Heparin 5000 units/ml inj SUBQ SCH ×2 (09:00→21:00)
[2016-06-15] MEDS: Tigecycline 50 MG in D5W 110 ML IVPB SCH ×2 (09:06→21:09)
--- NOTE | 2016-06-15 09:31 | General Progress Note ---
Assessment/Plan Assessment/Plan IMPRESSION: 1. lyte imbalance. 2. paraplegia 3. Acute renal failure. 4. Discitis. 5. Osteomyelitis. 6. History of bacteremia. 7. Chronic opiate/narcotic dependence. 8. Anemia. 9. hyperglycemia 10. Anion gap. 11. bacteremia rule out endocarditis PLAN ID noted exam noted SULAIMAN negative pain control nutrition seems improved MDR sensitive to Tygacil; dc with 1 week ID discussed in detail monitor hemodynamics remains acute will d/w ID regarding dc plans outpatient spine evaluation and MRI if possible patient aware impression, plan, and exam edited and reviewed in detail care discussed with RN Subjective Allergies: Coded Allergies: CEFTRIAXONE (Verified Allergy, Intermediate, SOB, HR-140bpm, face swollen , pt became red, 10/24/15) CODEINE (Verified Allergy, Intermediate, SWELLING, 01/03/11) LATEX (Verified Allergy, Intermediate, SWELLING, 01/03/11) PIPERACILLIN (Verified Allergy, Intermediate, Itching, 08/29/15) 08/29/15 tolerates Ceftaroline TAZOBACTAM (Verified Allergy, Intermediate, Itching, 01/29/15) POLYMYXIN B (Verified Allergy, Mild, Rash, 04/08/16) Suspected allergy reported by MD VANCOMYCIN (Verified Allergy, Mild, 07/15/14) ASPARAGINASE (Verified Allergy, Unknown, 01/28/14) CEFUROXIME (Unverified Allergy, Unknown, 04/19/16) IRON (Verified Allergy, Unknown, 01/28/14) Subjective PICC in place no real distress dc planning Objective Last 24 Hour Vital Signs Date Time Temp Pulse Resp B/P Pulse Ox O2 Delivery O2 Flow Rate FiO2 06/15/16 08:33 97.7 80 19 128/76 98 Room Air 06/15/16 04:00 97.9 82 19 137/85 100 Room Air 06/15/16 00:00 98.0 79 18 138/76 96 Room Air 06/14/16 20:51 98.1 06/14/16 20:00 98.2 72 17 139/74 97 Room Air 06/14/16 16:00 98.1 78 18 147/81 99 Room Air 06/14/16 12:07 97.0 80 19 126/71 98 Room Air Intake and Output 06/14/16 06/15/16 19:00 07:00 Intake Total 1780 ml 1810 ml Balance 1780 ml 1810 ml Intake Oral 360 ml 800 ml IV Total 1420 ml 1010 ml # Voids 1 4 Height (Feet): 5 Height (Inches): 6.00 Weight (Pounds): 190 Objective GENERAL: A well developed female lying comfortable. The patient is alert and oriented. HEENT: Negative. NECK: Supple. No adenopathy. Carotids 2+. LUNGS: Clear. Symmetric. without rhonchi or wheeze CARDIAC: S2. Regular rate and rhythm. RRR.without MRG ABDOMEN: Soft and nontender. obese; no HSM EXTREMITIES: No cyanosis or clubbing. There is no lower extremity edema. NEUROLOGIC: Grossly nonfocal, paraplegic reviewed and edited LUANN MICHEL Jun 15, 2016 09:31
[2016-06-15 11:49] VITALS: BP 118/74
--- NOTE | 2016-06-15 11:53 | Infectious Diseases Prog Note ---
Assessment/Plan Assessment/Plan ASSESSMENT AND PLAN: 1. acinetobacter bacteremia - ? recurrent line infection, SULAIMAN negative for vegetation, ? spinal discitis/sacral osteo as source, indium scan negative - tygacil - day # 15 post line removal (new picc line placed 06/01/16) - plan on 21 day tygacil course post line removal (day # 15/21 now) - surveillance blood cultures negative - indium scan negative - cannot do mri of spine secondary to body habitus, open MRI not available at [place], ? arrange for outside MRI - spine surgery, if possible - clinically stable - communicated with Dr. Healy 2. 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 tachycardia resolved 4. n/v resolved 5. History of osteoarthritis and treatment. 6. Colostomy. 7. Paraplegia. 8. Anemia. 9. ? diabetes - patient denies dm hx, bs elevated only with infection per pt 10. Chronic pain management and chronic pain syndrome, anxiety 11. History of cholelithiasis. 12. Pain management for primary, opiate dependency 13. Multiple allergies to asparaginase, Rocephin, codeine, iron, Latex, piperacillin, tazobactam, and vancomycin, ? polymyxin 14. wound care per protocol and plastic surgery 15. The case was discussed with RN 16. The case was discussed with the patient. 17. fh-nc, sh-negative, mar noted 18. notes and records reviewed 19. vre colonization and isolation 20. d/w patient Subjective Subjective Constitutional: Denies: fever HEENT: Denies: congestion Respiratory: Denies: shortness of breath Cardiovascular: Denies: chest pain Gastrointestinal/Abdominal: Denies: nausea Genitourinary: Reports: other - no bay, Denies: dysuria, frequency, hematuria , nocturia Neurologic: Denies: headache Skin: Reports: rash - rash better Hematologic: Denies: bleeding Musculoskeletal: Denies: pain Allergies: Coded Allergies: CEFTRIAXONE (Verified Allergy, Intermediate, SOB, HR-140bpm, face swollen , pt became red, 10/24/15) CODEINE (Verified Allergy, Intermediate, SWELLING, 01/03/11) LATEX (Verified Allergy, Intermediate, SWELLING, 01/03/11) PIPERACILLIN (Verified Allergy, Intermediate, Itching, 08/29/15) 08/29/15 tolerates Ceftaroline TAZOBACTAM (Verified Allergy, Intermediate, Itching, 01/29/15) POLYMYXIN B (Verified Allergy, Mild, Rash, 04/08/16) Suspected allergy reported by VANCOMYCIN (Verified Allergy, Mild, 07/15/14) ASPARAGINASE (Verified Allergy, Unknown, 01/28/14) CEFUROXIME (Unverified Allergy, Unknown, 04/19/16) IRON (Verified Allergy, Unknown, 01/28/14) Objective Vital Signs Last 24 Hour Vital Signs Date Time Temp Pulse Resp B/P Pulse Ox O2 Delivery O2 Flow Rate FiO2 06/15/16 09:37 97.7 06/15/16 08:33 97.7 80 19 128/76 98 Room Air 06/15/16 04:00 97.9 82 19 137/85 100 Room Air 06/15/16 00:00 98.0 79 18 138/76 96 Room Air 06/14/16 20:00 98.2 72 17 139/74 97 Room Air 06/14/16 16:00 98.1 78 18 147/81 99 Room Air 06/14/16 12:07 97.0 80 19 126/71 98 Room Air Height (Feet): 5 Height (Inches): 6.00 Weight (Pounds): 190 General Appearance: no acute distress HEENT: normocephalic, atraumatic, anicteric, mucous membranes moist, PERRL, EOMI, pharynx normal, supple, no JVD Respiratory/Chest: lungs clear, normal breath sounds, no respiratory distress, no accessory muscle use Cardiovascular: normal rate, regular rhythm, no gallop/murmur, no JVD Abdomen: normal bowel sounds, soft, non tender, no organomegaly, non distended Genitourinary: other - no bay Extremities: no cyanosis Skin: no rash 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 Complete 05/31/16 18:00 Rectum VRE Culture - Final Enterococcus Faecium - Vre Complete Labs Test 06/14/16 03:40 White Blood Count 5.4 K/UL (4.8-10.8) Red Blood Count 2.89 M/UL (4.20-5.40) Hemoglobin 8.2 G/DL (12.0-16.0) Hematocrit 25.6 % (37.0-47.0) Mean Corpuscular Volume 88 FL (80-99) Mean Corpuscular Hemoglobin 28.5 PG (27.0-31.0) Mean Corpuscular Hemoglobin Concent 32.2 G/DL (32.0-36.0) Red Cell Distribution Width 17.4 % (11.6-14.8) Platelet Count 347 K/UL (150-450) Mean Platelet Volume 6.4 FL (6.5-10.1) Neutrophils (%) (Auto) 51.3 % (45.0-75.0) Lymphocytes (%) (Auto) 35.3 % (20.0-45.0) Monocytes (%) (Auto) 5.7 % (1.0-10.0) Eosinophils (%) (Auto) 7.1 % (0.0-3.0) Basophils (%) (Auto) 0.6 % (0.0-2.0) Sodium Level 142 mEQ/L (135-145) Potassium Level 3.5 mEQ/L (3.4-4.9) Chloride Level 105 mEQ/L (98-107) Carbon Dioxide Level 24 mEQ/L (20-30) Anion Gap 13 (5-15) Blood Urea Nitrogen 20 mg/dL (7-23) Creatinine 0.7 mg/dL (0.5-0.9) Estimat Glomerular Filtration Rate > 60 mL/min (>60) Glucose Level 80 mg/dL (74-106) Calcium Level 7.6 mg/dL (8.6-10.2) Total Bilirubin < 0.2 mg/dL (0.0-1.2) Aspartate Amino Transf (AST/SGOT) 10 U/L (5-40) Alanine Aminotransferase (ALT/SGPT) 8 U/L (3-33) Alkaline Phosphatase 204 U/L (35-104) Total Protein 5.7 g/dL (6.6-8.7) Albumin 1.4 g/dL (3.5-5.2) Globulin 4.3 g/dL Albumin/Globulin Ratio 0.3 (1.0-2.7) Current Medications Medications (Trade) Dose Ordered Sig/Pineda Route PRN Reason Start Time Stop Time Status Last Admin Dose Admin Al Hydroxide/Mg Hydroxide (Mylanta) 30 ml EVERY 4 HOURS PRN ORAL dyspepsia 06/01/16 17:00 07/01/16 16:59 Dextrose (Dextrose 50%) STAT PRN IV Hypoglycemia 06/02/16 02:15 07/02/16 02:14 Diphenhydramine HCl (Benadryl) 25 mg EVERY 4 HOURS PRN ORAL Itching 06/01/16 17:00 07/01/16 16:59 Diphenhydramine HCl (Benadryl) 25 mg Q12HR@0830,2030 IV 06/07/16 18:00 07/07/16 17:59 06/15/16 08:00 Diphenhydramine HCl (Benadryl) 50 mg Q6H PRN IVP Itching 06/01/16 20:30 07/01/16 20:29 06/15/16 03:06 Heparin Sodium (Porcine) (Heparin 5000 units/ml) 5,000 units EVERY 12 HOURS SUBQ 06/01/16 21:00 07/01/16 20:59 06/14/16 21:23 Hydromorphone HCl 2 mg 2 mg Q3H PRN IVP Severe Breakthru Pain (>7) 06/08/16 16:15 06/15/16 16:14 06/15/16 09:07 Magnesium Hydroxide (Mom) 30 ml HSPRN PRN ORAL Constipation 06/02/16 03:00 07/02/16 02:59 Ondansetron HCl (Zofran) 4 mg Q6H PRN IVP Nausea & Vomiting 06/01/16 20:30 07/01/16 20:29 06/05/16 11:15 Pantoprazole (Protonix) 40 mg DAILY ORAL 06/02/16 09:00 07/02/16 08:59 06/15/16 07:59 Sodium Chloride (Sodium Chloride 1000ml bag) 1,000 ml @ 100 mls/hr Q10H IVLG 06/01/16 16:00 07/01/16 15:59 06/15/16 10:07 Tigecycline/ Dextrose (Tygacil/D5W) 110 ml @ 220 mls/hr EVERY 12 HOURS IVPB 06/13/16 21:00 06/20/16 23:59 06/15/16 09:06 Zolpidem Tartrate (Ambien) 5 mg HSPRN PRN ORAL Insomnia 06/02/16 02:30 07/02/16 02:29 GRZEGORZ MARTINEZ Jun 15, 2016 11:53
[2016-06-15] MEDS ORDERED: Cathflo Alteplase 2mg Inj INJ ONE (13:30)
[2016-06-15 16:00] VITALS: BP 129/70
[2016-06-15 16:28] LABS: MEAN CORPUSCULAR HEMOGLOBIN 28.3 PG (27.0-31.0); MEAN CORPUSCULAR HGB CONC 32.1 G/DL (32.0-36.0); MEAN CORPUSCULAR VOLUME 88 FL (80-99); MEAN PLATELET VOLUME 6.2 FL (6.5-10.1); PLATELET COUNT 334 K/UL (150-450); RED BLOOD COUNT 2.68 M/UL (4.20-5.40); RED CELL DISTRIBUTION WIDTH 18.1 % (11.6-14.8); WHITE BLOOD COUNT 6.3 K/UL (4.8-10.8)
[2016-06-15 16:35] LABS: ANION GAP 11 (5-15); CALCIUM 7.5 mg/dL (8.6-10.2); CARBON DIOXIDE 24 mEQ/L (20-30); CHLORIDE 103 mEQ/L (98-107); CREATININE 0.8 mg/dL (0.5-0.9); GLOMERULAR FILTRATION RATE > 60 mL/min (>60); HEMOLYSIS 1; POTASSIUM 3.5 mEQ/L (3.4-4.9); SODIUM 138 mEQ/L (135-145)
[2016-06-15 19:32] LABS: BAND NEUTROPHILS % (MANUAL) 1 % (0-8); BASOPHILS % (MANUAL) 1 % (0-2); EOSINOPHILS % (MANUAL) 5 % (0-3); LYMPHOCYTES % (MANUAL) 44 % (20-45); NEUTROPHILS % (MANUAL) 45 % (45-75); TOTAL CELLS COUNTED 100
[2016-06-15 19:51] LABS: PLATELET ESTIMATE ADEQUATE
[2016-06-15 19:52] LABS: ANISOCYTOSIS 2+
[2016-06-15 19:54] LABS: PLATELET MORPHOLOGY NORMAL
[2016-06-15 19:57] LABS: POLYCHROMASIA 2+
[2016-06-15 19:58] LABS: HYPOCHROMASIA 2+
[2016-06-15 20:00] VITALS: BP 145/77
[2016-06-16] VITALS: BP 136/83
[2016-06-16] MEDS: DiphenhydrAMINE 50mg/ml Inj IVP PRN ×3 (01:45→14:25)
[2016-06-16 04:00] VITALS: BP 131/80
--- NOTE | 2016-06-16 04:39 | Progress Note ---
DATE: 06/15/2016 CARDIOLOGY PROGRESS NOTE SUBJECTIVE: The patient was in distress. Continued antibiotics. OBJECTIVE: VITAL SIGNS: Afebrile, blood pressure 128/76, pulse 80, and respiratory rate 19. LUNGS: Bilateral breath sounds. No wheezing. HEART: Regular rhythm and rate. Normal S1 and S2 with no new murmur. ABDOMEN: Soft. No edema. IMPRESSION: 1. Bacteremia, transesophageal echocardiography negative for vegetation. Spinal diskitis and sacral osteo is probable source, secondary sinus tachycardia recovered. 2. Paraplegia with colostomy. 3. Anemia. 4. Severe protein-calorie malnutrition. PLAN: 1. No beta blockers. 2. Antibiotics per Infectious Disease exchange underwriting consultant. 3. Discontinue IV fluids. 4. Maintain adequate oral intake. 5. Consider transfusion for low hemoglobin of 7.6. Karthik Parra M.D. DR: Osmel JOB#: [id number] CC:
[2016-06-16 08:16] VITALS: BP 139/82
--- NOTE | 2016-06-16 08:25 | General Progress Note ---
Assessment/Plan Assessment/Plan IMPRESSION: 1. lyte imbalance. 2. paraplegia 3. Acute renal failure. 4. Discitis. 5. Osteomyelitis. 6. History of bacteremia. 7. Chronic opiate/narcotic dependence. 8. Anemia. 9. hyperglycemia 10. Anion gap. 11. bacteremia rule out endocarditis PLAN ID noted exam noted pain control; does not want RX for home nutrition encouraged MDR sensitive to Tygacil; dc with 1 week ID discussed in detail stable hemodynamics cleared by ID outpatient spine evaluation and MRI if possible patient aware and agreeable home health impression, plan, and exam edited and reviewed in detail care discussed with RN Subjective Allergies: Coded Allergies: CEFTRIAXONE (Verified Allergy, Intermediate, SOB, HR-140bpm, face swollen , pt became red, 10/24/15) CODEINE (Verified Allergy, Intermediate, SWELLING, 01/03/11) LATEX (Verified Allergy, Intermediate, SWELLING, 01/03/11) PIPERACILLIN (Verified Allergy, Intermediate, Itching, 08/29/15) 08/29/15 tolerates Ceftaroline TAZOBACTAM (Verified Allergy, Intermediate, Itching, 01/29/15) POLYMYXIN B (Verified Allergy, Mild, Rash, 04/08/16) Suspected allergy reported by VANCOMYCIN (Verified Allergy, Mild, 07/15/14) ASPARAGINASE (Verified Allergy, Unknown, 01/28/14) CEFUROXIME (Unverified Allergy, Unknown, 04/19/16) IRON (Verified Allergy, Unknown, 01/28/14) Subjective PICC in place undergoing transfusion agreeable to dc today Objective Last 24 Hour Vital Signs Date Time Temp Pulse Resp B/P Pulse Ox O2 Delivery O2 Flow Rate FiO2 06/16/16 08:16 97.0 77 19 139/82 98 Room Air 06/16/16 04:00 98.0 88 18 131/80 98 Room Air 06/16/16 00:00 98.2 87 18 136/83 98 Room Air 06/15/16 20:00 98.4 86 20 145/77 99 Room Air 06/15/16 16:00 97.7 95 18 129/70 98 Room Air 06/15/16 11:49 97.7 77 19 118/74 98 Room Air 06/15/16 09:37 97.7 06/15/16 08:33 97.7 80 19 128/76 98 Room Air Intake and Output 06/15/16 06/16/16 19:00 07:00 Intake Total 1680 ml 825 ml Balance 1680 ml 825 ml Intake Oral 360 ml 715 ml IV Total 1320 ml 110 ml # Voids 1 2 Laboratory Tests 06/15/16 14:50: White Blood Count 6.3, Red Blood Count 2.68L, Hemoglobin 7.6L, Hematocrit 23.6L , Mean Corpuscular Volume 88, Mean Corpuscular Hemoglobin 28.3, Mean Corpuscular Hemoglobin Concent 32.1, Red Cell Distribution Width 18.1H, Platelet Count 334, Mean Platelet Volume 6.2L, Neutrophils (%) (Auto) , Lymphocytes (%) (Auto) , Monocytes (%) (Auto) , Eosinophils (%) (Auto) , Basophils (%) (Auto) , Differential Total Cells Counted 100, Neutrophils % ( Manual) 45, Lymphocytes % (Manual) 44, Monocytes % (Manual) 4, Eosinophils % ( Manual) 5H, Basophils % (Manual) 1, Band Neutrophils 1, Platelet Estimate Adequate, Platelet Morphology Normal, Polychromasia 2+, Hypochromasia 2+, Anisocytosis 2+, Ovalocytes , Sodium Level 138, Potassium Level 3.5, Chloride Level 103, Carbon Dioxide Level 24, Anion Gap 11, Blood Urea Nitrogen 17, Creatinine 0.8, Estimat Glomerular Filtration Rate > 60, Glucose Level 119H, Calcium Level 7.5L Height (Feet): 5 Height (Inches): 6.00 Weight (Pounds): 190 Objective GENERAL: A well developed female lying comfortable. The patient is alert and oriented. HEENT: Negative. NECK: Supple. No adenopathy. Carotids 2+. LUNGS: Clear. Symmetric. without rhonchi or wheeze CARDIAC: S2. Regular rate and rhythm. RRR.without MRG ABDOMEN: Soft and nontender. obese; no HSM EXTREMITIES: No cyanosis or clubbing. There is no lower extremity edema. NEUROLOGIC: Grossly nonfocal, paraplegic reviewed and edited LUANN MICHEL Jun 16, 2016 08:25
[2016-06-16] MEDS: DiphenhydrAMINE 50mg/ml Inj IV SCH (08:30)
[2016-06-16] MEDS: Heparin 5000 units/ml inj SUBQ SCH (09:00)
[2016-06-16] MEDS: Tigecycline 50 MG in D5W 110 ML IVPB SCH (09:15)
[2016-06-16 12:30] VITALS: BP 140/79
[2016-06-16 13:12] VITALS: BP 140/79
--- NOTE | 2016-06-16 13:27 | Wound Nurse Progress Note ---
Wound RN Progress Note Wound Consult asked patient if i was able to reassess admitted wounds, patient did not agree at this time stated she was being discharged and they would be seen then with the pictures. SUGEY JORDAN Jun 16, 2016 13:27
[2016-06-16 16:00] VITALS: BP 137/90
[2016-06-16] MEDS ORDERED: NS 275ml ONE (19:32)
[2016-06-16] MEDS ORDERED: Tubing Blood Filter IV ONE (19:32)
--- NOTE | 2016-06-17 03:18 | Progress Note ---
DATE: 06/16/2016 CARDIOLOGY PROGRESS NOTE: SUBJECTIVE: The patient was seen and evaluated. Discharge plan is reviewed and discussed. The patient's transesophageal echocardiogram was negative for vegetation. OBJECTIVE: VITAL SIGNS: Blood pressure is 137/90, pulse 78, respiratory rate 20, and no fevers. LUNGS: Clear. CARDIAC: Regular. ABDOMEN: Soft. There is a colostomy bag. EXTREMITIES: Trace edema with distal muscle atrophy and paraparesis. IMPRESSION AND PLAN: 1. Bacteremia. 2. Osteomyelitis due to spinal infection. 3. Low echocardiographic likelihood for endocarditis. 4. Hypertension, controlled. 5. Stable from cardiovascular standpoint for outpatient followup. 6. Medication regimen reviewed for discharge. Karthik Parra M.D. DR: Joe JOB#: [id number] CC:
--- NOTE | 2016-06-19 11:23 | Discharge Summary ---
Discharge Summary Hospital Course Date of Admission May 31, 2016 at 17:05 Date of Discharge Jun 16, 2016 at 19:33 Admitting Diagnosis sepsis, osteomyolitis HPI Ananya Guajardo is a 41 year old female who was admitted on May 31, 2016 at 17:05 for Sepsis,Osteomyolitis Hospital Course [id number] Discharge Discharge Disposition Patient was discharged to Home with Home Health(06) Discharge Diagnoses: Verito Johnston NP Jun 19, 2016 11:23
--- NOTE | 2016-06-20 06:19 | Discharge Summary 2 SIG ---
DATE OF ADMISSION: 05/31/2016 DATE OF DISCHARGE: 06/16/2016 CONSULTANTS: 1. Karthik Parra M.D. 2. Kush Reyes M.D. 3. Keegan Cristobal M.D. BRIEF HOSPITAL COURSE: The patient is a 41-year-old unfortunate female, who was just discharged from hospital last night and had a protracted hospital course due to recurrent infection as well as osteomyelitis. The patient was treated for widespread infection including bacteremia, and is on IV antibiotic. The patient agreed to [facility] care and required PICC line placement and was receiving antibiotics. However, she recently had a blood culture positive for gram positive bacteremia as well as persistent tachycardia. The patient was taken to [facility] further evaluation. She was followed by Infectious Disease specialist. PICC line was changed. She came in with a sacral ulcer stage IV and was seen by Dr. Cristobal. Wound care was done daily. There was no needed surgical intervention at this time. She again had bacteremia and on 06/11/2016 underwent transesophageal echocardiogram by Dr. Parra. There was no echocardiographic evidence for endocarditis. Indium scan was negative. Unable to do MRI of the spine secondary to body habitus. No available open MRI available at [place]. Culture showed sensitivity to antibiotic. The patient was eventually discharged home to continue one more week of antibiotic. DISPOSITION: The patient was discharged home with home health. FINAL DIAGNOSES: 1. Osteomyelitis. 2. Diskitis. 3. Acute renal failure. 4. Quadriplegia. 5. Protein-calorie malnutrition. 6. Bacteremia, negative for vegetation, probable source is sacral osteomyelitis and spinal diskitis. 7. Sacral stage IV pressure ulcer, present on admission. Thanh Glover M.D. I have been assigned to dictate discharge summary on this account and I was not involved in the patient's management. Verito Johnston N.P. DR: Harrison JOB#: [id number] CC: MADI
== END 2016-06-16 19:33 | disposition home health service (06) | DRG 539 ==
LOC: EDBD 15:56 → EMR 16:47 → EDBEDREQ 17:02 → 2W 17:05 → EDBEDREQ 20:11 → 4W 06-01 15:20
DX: M46.28 Osteomyelitis of vertebra, sacral and sacrococcygeal region (principal); L89.154 Pressure ulcer of sacral region, stage 4; E43 Unspecified severe protein-calorie malnutrition; G82.50 Quadriplegia, unspecified; N17.9 Acute kidney failure, unspecified; R78.81 Bacteremia; E86.0 Dehydration; F11.20 Opioid dependence, uncomplicated; E87.1 Hypo-osmolality and hyponatremia; L97.109 Non-pressure chronic ulcer of unspecified thigh with unspecified severity; E11.65 Type 2 diabetes mellitus with hyperglycemia; Z93.3 Colostomy status; D64.9 Anemia, unspecified; F41.9 Anxiety disorder, unspecified; G89.4 Chronic pain syndrome; Z74.01 Bed confinement status; Z16.21 Resistance to vancomycin; M46.40 Discitis, unspecified, site unspecified; D63.8 Anemia in other chronic diseases classified elsewhere; E87.5 Hyperkalemia; E87.8 Other disorders of electrolyte and fluid balance, not elsewhere classified; Z68.30 Body mass index [BMI] 30.0-30.9, adult; B96.89 Other specified bacterial agents as the cause of diseases classified elsewhere
CPT/HCPCS: 36415; 36569; 71010; 76937; 78807; 80048; 80053; 80150; 83735; 85007; 85025; 85651; 86850; 86900; 86901; 86920; 87040; 87081; 87181; 93005; 93306; 93312; 94003; 94150; A9570; J2405; J8499

== ENCOUNTER 2016-06-18 11:31 | Emergency (ER) | payer MEDICARE, OTHER ==
[~2016-06-18] VITALS: Ht 165.1 cm; Wt 72.6 kg
[2016-06-18] MEDS ORDERED: Lidocaine 1% 10mg/ml/EPI 0.01mg/ml 50ml INJ ONE (11:45)
[2016-06-18 12:55] VITALS: BP 119/78
[2016-06-18] MEDS ORDERED: Heparin 2000 units/Ns 1000ml INJ ONE (13:15)
[2016-06-18] MEDS ORDERED: Ipratropium 0.02% Inh Soln 2.5ml UD HHN ONE (13:30)
[2016-06-18] MEDS ORDERED: Albuterol ud Inhalation HHN ONE (13:30)
[2016-06-18] MEDS ORDERED: Heplock Flush 100 units/ml 3 ml syr INJ ONE (14:00)
[2016-06-18] MEDS ORDERED: DiphenhydrAMINE 50mg/ml Inj IVP ONE (14:30)
--- NOTE | 2016-06-18 14:39 | Emergency Room Report ---
History of Present Illness General Chief Complaint: General Complaint Source: Patient Present Illness HPI Patient presents with complaints of PICC line malfunction reports that the PICC line was dislodged when moving this morning Patient denies any fevers or chills She is on ongoing medications via the PICC line and requires this for continued outpatient care Initially denied any headache or visual changes Denies any chest pain or shortness of breath denies any back or flank pain However during her stay the patient complained of chest tightness and requested breathing treatment After the breathing treatment was not showing significant change patient requesting Dilaudid Allergies: Coded Allergies: CEFTRIAXONE (Verified Allergy, Intermediate, SOB, HR-140bpm, face swollen , pt became red, 10/24/15) CODEINE (Verified Allergy, Intermediate, SWELLING, 01/03/11) LATEX (Verified Allergy, Intermediate, SWELLING, 01/03/11) PIPERACILLIN (Verified Allergy, Intermediate, Itching, 08/29/15) 08/29/15 tolerates Ceftaroline TAZOBACTAM (Verified Allergy, Intermediate, Itching, 01/29/15) POLYMYXIN B (Verified Allergy, Mild, Rash, 04/08/16) Suspected allergy reported by VANCOMYCIN (Verified Allergy, Mild, 07/15/14) ASPARAGINASE (Verified Allergy, Unknown, 01/28/14) CEFUROXIME (Unverified Allergy, Unknown, 04/19/16) IRON (Verified Allergy, Unknown, 01/28/14) LATEX, NATURAL RUBBER (Unverified Allergy, Unknown, 06/18/16) Patient History Past Medical History: see triage record Pertinent Family History: none Reviewed Nursing Documentation: PMH: Agreed, PSxH: Agreed Nursing Documentation-PMH Hx Hypertension: No Hx Pacemaker: No Hx Asthma: Yes Hx COPD: No Hx Diabetes: No Hx Cancer: No Hx Gastrointestinal Problems: Yes - gastritis Hx Cerebrovascular Accident: No Hx Seizures: No 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 Hx Weakness: Yes Hx Fatigue: Yes Review of Systems All Other Systems: negative except mentioned in HPI Physical Exam Vital Signs Date Time Temp Pulse Resp B/P Pulse Ox O2 Delivery O2 Flow Rate FiO2 06/18/16 11:09 98.2 108 18 132/88 98 Room Air Sp02 EP Interpretation: reviewed, normal General Appearance: no apparent distress Head: normocephalic, atraumatic Eyes: bilateral eye EOMI, bilateral eye PERRL ENT: normal pharynx, no angioedema Neck: full range of motion, supple Respiratory: lungs clear, normal breath sounds Cardiovascular #1: regular rate, rhythm, no edema Gastrointestinal: non tender, soft Musculoskeletal: other - Patient chronically debilitated moving both upper extremities without focal deficit Neurologic: alert, oriented x3, responsive Skin: other - Chronic changes as noted previously Lymphatic: no adenopathy Medical Decision Making Diagnostic Impression: Primary Impression: picc line placement ER Course Patient requiring PICC line placement for continued outpatient care At this time this procedure was ordered performed in the radiology department Patient requesting Dilaudid medication for chronic pain syndrome Dr. Healy contacting us in the ER for medication dosage I am extremely concerned about the patient's opiate requirements Patient will have close outpatient followup Last Vital Signs Date Time Temp Pulse Resp B/P Pulse Ox O2 Delivery O2 Flow Rate FiO2 06/18/16 13:43 151 20 100 Room Air 06/18/16 12:55 119/78 06/18/16 11:09 98.2 Status: improved Disposition: HOME, SELF-CARE Condition: Improved Referrals: LUANN MICHEL (PCP) Patient Instructions: PICC Home Guide Additional Instructions: Patient is provided with the discharge instructions notified to follow up with primary doctor in the next 2-3 days otherwise return to the er with any worsening symptoms. Please note that this report is being documented using [employer] technology. This can lead to erroneous entry secondary to incorrect interpretation by the dictating instrument. JERALD PEREZ D.O. Jun 18, 2016 14:39
[2016-06-18 17:45] VITALS: BP 128/60
== END 2016-06-18 18:02 | disposition home or self-care (01) ==
LOC: EDBD 11:31 → EMR 13:02
DX: T82.898A Other specified complication of vascular prosthetic devices, implants and grafts, initial encounter (principal); Y84.8 Other medical procedures as the cause of abnormal reaction of the patient, or of later complication, without mention of misadventure at the time of the procedure; Y92.9 Unspecified place or not applicable; G89.4 Chronic pain syndrome; J45.909 Unspecified asthma, uncomplicated; Z87.19 Personal history of other diseases of the digestive system; Z88.1 Allergy status to other antibiotic agents; Z88.8 Allergy status to other drugs, medicaments and biological substances; Z88.6 Allergy status to analgesic agent; Z91.040 Latex allergy status
CPT/HCPCS: 36569; 76937; 94640; 94664; 96374; 99285; J1170; J1200; J1644

== ENCOUNTER 2016-06-28 09:47 | Outpatient (RCR) | payer MEDICARE, OTHER ==
[~2016-06-28] VITALS: Ht 167.6 cm; Wt 77.1 kg
[2016-06-30] MEDS ORDERED: Silver Sulfadiazine Cream 25gm TOPIC ONE (12:30)
== END 2016-07-09 | disposition home or self-care (01) ==
LOC: WCC 09:47
DX: L89.154 Pressure ulcer of sacral region, stage 4 (principal); L89.313 Pressure ulcer of right buttock, stage 3; L97.112 Non-pressure chronic ulcer of right thigh with fat layer exposed; L97.122 Non-pressure chronic ulcer of left thigh with fat layer exposed; Z88.6 Allergy status to analgesic agent; Z91.018 Allergy to other foods; Z91.048 Other nonmedicinal substance allergy status; E11.9 Type 2 diabetes mellitus without complications; J45.909 Unspecified asthma, uncomplicated; M86.9 Osteomyelitis, unspecified; G83.9 Paralytic syndrome, unspecified
CPT/HCPCS: 11042; 11043; 11044; 11046; 11047; 87070; 87181; 87205

== ENCOUNTER 2016-07-26 09:53 | Outpatient (RCR) | payer MEDICARE, OTHER | END 2016-08-08 | disposition home or self-care (01) | LOC: WCC 09:53 | DX: L89.154 Pressure ulcer of sacral region, stage 4 (principal); L89.313 Pressure ulcer of right buttock, stage 3; L97.112 Non-pressure chronic ulcer of right thigh with fat layer exposed; L97.122 Non-pressure chronic ulcer of left thigh with fat layer exposed; Z87.891 Personal history of nicotine dependence; J45.909 Unspecified asthma, uncomplicated; M86.9 Osteomyelitis, unspecified; E11.9 Type 2 diabetes mellitus without complications; G83.9 Paralytic syndrome, unspecified | CPT/HCPCS: 11042; 11044; 11047 ==

== ENCOUNTER 2016-08-23 10:03 | Outpatient (RCR) | payer MEDICARE, OTHER | END 2016-09-08 | disposition home or self-care (01) | LOC: WCC 10:03 | DX: L89.154 Pressure ulcer of sacral region, stage 4 (principal); L89.313 Pressure ulcer of right buttock, stage 3; L97.112 Non-pressure chronic ulcer of right thigh with fat layer exposed; L97.122 Non-pressure chronic ulcer of left thigh with fat layer exposed; L89.323 Pressure ulcer of left buttock, stage 3; Z87.891 Personal history of nicotine dependence; J45.909 Unspecified asthma, uncomplicated; E11.9 Type 2 diabetes mellitus without complications; G83.9 Paralytic syndrome, unspecified; Z88.6 Allergy status to analgesic agent | CPT/HCPCS: 11042; 11043; 11046 ==

== ENCOUNTER 2016-09-13 10:00 | Outpatient (RCR) | payer MEDICARE, OTHER ==
[~2016-09-13] VITALS: Ht 167.6 cm; Wt 77.1 kg
[2016-09-22] MEDS ORDERED: Silver Sulfadiazine Cream 25gm TOPIC ONE (15:30)
== END 2016-10-08 | disposition home or self-care (01) ==
LOC: WCC 10:00
DX: L89.893 Pressure ulcer of other site, stage 3 (principal); L89.892 Pressure ulcer of other site, stage 2; L89.154 Pressure ulcer of sacral region, stage 4; L89.323 Pressure ulcer of left buttock, stage 3; M86.9 Osteomyelitis, unspecified; E11.9 Type 2 diabetes mellitus without complications; Z88.6 Allergy status to analgesic agent; Z88.8 Allergy status to other drugs, medicaments and biological substances
CPT/HCPCS: 11042; 11043; 11046

== ENCOUNTER 2016-10-18 10:00 | Outpatient (RCR) | payer MEDICARE, OTHER ==
[~2016-10-18] VITALS: Ht 167.6 cm; Wt 77.1 kg
== END 2016-11-08 | disposition home or self-care (01) ==
LOC: WCC 10:00
DX: L89.154 Pressure ulcer of sacral region, stage 4 (principal); L89.313 Pressure ulcer of right buttock, stage 3; L97.112 Non-pressure chronic ulcer of right thigh with fat layer exposed; L97.323 Non-pressure chronic ulcer of left ankle with necrosis of muscle; Z88.6 Allergy status to analgesic agent; Z88.8 Allergy status to other drugs, medicaments and biological substances; E11.9 Type 2 diabetes mellitus without complications; G83.9 Paralytic syndrome, unspecified
CPT/HCPCS: 11042; 11043; 11046

== ENCOUNTER 2016-12-20 13:30 | Outpatient (RCR) | payer MEDICARE, OTHER ==
--- NOTE | 2016-12-20 23:30 | Consultation ---
DATE OF CONSULTATION: 12/20/2016 INFECTIOUS DISEASE CONSULTATION CONSULTING PHYSICIAN: Karlie Rosas M.D. REQUESTING PHYSICIAN: Keegan Cristobal M.D., from Plastic Surgery Service REASON FOR CONSULTATION: Right hip cellulitis with draining sinuses and infection due to MRSA and group B Streptococcus. HISTORY OF PRESENT ILLNESS: The patient is a 41-year-old female with complicated past medical history including E. coli Morganella Morgagni Klebsiella sacral wound infection with osteomyelitis, status post treatment with meropenem and tigecycline, history of line infection and recurrent line infection, status post removal in the past, Acinetobacter bacteremia due to line infection with negative vegetation, status post line removal and treatment with tigecycline for 21 days in May 2016, presented to [facility] for right hip redness, erythema, and draining sinuses. The patient had osteomyelitis in the right hip area and she underwent surgical resection of the hip joint by Ortho and Plastic Surgery. After her surgery, the patient developed multiple sinus tract draining yellowish fluid. She had three of them, one of them closed and dried out completely, two have been draining for the last couple of weeks. She has been managed by the plastic surgery in the wound care clinic and she had a wound culture, which was sent out from the sinus tract draining, grew MRSA and group B Streptococcus. The patient was started on oral Bactrim treatment for right hip cellulitis and sinuses infection and I was consulted by the plastic surgeon for antibiotics treatment and further management since she had history of chronic osteo in the right hip area. The patient complained of swelling and redness at the right hip site lateral aspect. She does not feel below her waist, so she cannot tell whether she has pain or discomfort. The right hip area has been red, tender, and swollen with two draining sinuses so far of clear yellowish fluid. Denied any fever or chills. Denied any other symptoms. The patient has been receiving local wound care. She was probed today by the wound care nurse all the way down up to 4 cm sinus tract. PAST MEDICAL HISTORY: Significant for diskitis and osteomyelitis of the spine, sacral osteo due to Klebsiella pneumoniae Morganella morganii and E. coli., bacteremia due to Acinetobacter baumannii multi-drug resistant due to line infection, chronic opiates and narcotic dependence, chronic pain syndrome, anemia, multiple transfusion in the past, recurrent hip site abscesses, decubitus wound, and diabetes poorly controlled. PAST SURGICAL HISTORY: She had debridement of sacral wound and right hip joint resection. MEDICATIONS: Currently, she is on Bactrim twice daily. For the rest of her medications, please refer to the MAR. ALLERGIES: She had extensive list of allergy including ceftriaxone, Zosyn, tazobactam, polymyxin, vancomycin, cefuroxime, and iron. SOCIAL HISTORY: The patient lives at home with caregiver. She is disabled and unemployed. No recent drugs, tobacco, or alcohol. FAMILY HISTORY: Not contributory. REVIEW OF SYSTEMS: A 14-point of system reviewed were all negative apart from the one I mentioned above in my History and Physical. PHYSICAL EXAMINATION: VITAL SIGNS: Temperature is 98.1, pulse 78, respirations 20, blood pressure 137/90, and saturation 99% on room air. GENERAL: This is a middle-aged female, paraplegic with right hip disarticulation, lying in bed, awake, alert, not in distress. HEENT: Normocephalic and atraumatic. Pupils reactive to light equally. Moist oral mucosa. No exudate. NECK: Supple. No lymphadenopathy. CARDIOVASCULAR: Regular rate and rhythm. No murmur. LUNGS: Clear bilaterally. No wheezing or rhonchi. Diminished breathing sounds at the bases. ABDOMEN: Soft, obese, nontender and nondistended. Positive bowel sounds. No hepatosplenomegaly. No ascites. EXTREMITIES: She had right hip cellulitis with swelling, two sinus tract draining yellowish fluid. She had right behind the knee wound, granulated in clean base. No drainage. She also had sacral wound granulated well with no sloughing or foul smelling. LABORATORY DATA: None available during this current visit, but in June, her white count was 6.3 with hemoglobin of 7.6, BUN of 14 and creatinine of 0.6. Microbiology in May, her blood culture grew Acinetobacter baumannii complex multi-drug resistant sensitive to colistin, Polymyxin, and tigecycline. Sacral wound culture grew E. coli Morganella morganii and Klebsiella pneumoniae. Right hip sinus track fluid culture grew group B Streptococcus and MRSA. IMAGING STUDIES: None available currently. ASSESSMENT AND RECOMMENDATION: 1. Right hip cellulitis with multiple sinus tracts draining infected fluid with methicillin-resistant Staphylococcus aureus and group B Streptococcus. At this point, I am going to order an MRI of the right hip to rule out any deep abscess or fluid collection and to rule out any evidence of osteomyelitis. It is unclear at this point, whether she has any chronic osteomyelitis left over in the right femur bone or the pelvis. MRI will help to determine that. We will decide on the duration of treatment based on the MRI results whether we can do IV versus oral treatment only. If the MRI showed evidence of deep abscesses or fluid collection that needs surgical drainage and IV antibiotics for couple of weeks. If the MRI shows evidence of active osteomyelitis, this will require IV antibiotics for six weeks of treatment. All options were discussed with the patient and the plastic surgeon at the bedside and they agreed to proceed with the plan. Continue oral Bactrim for now since she is not critically ill or septic, pending MRI results. 2. History of Acinetobacter bacteremia suspect due to line infection. This has been resolved and she was treated with tigecycline for 21 days. 3. Sacral wound looks clean and dry. No evidence of active infection. Continue local wound care as per the plastic surgeon. 4. Right hip chronic osteomyelitis, this seems to be stable. We will order MRI for further evaluation and to determine whether she will need to be on long-term suppression treatment. Thank you for the consultation. Infectious Diseases will continue to follow. Please feel free to call us with any question. Karlie Rosas M.D. DR: Zenaida JOB#: [id number] CC:
[2016-12-27] MEDS ORDERED: NKM (11:00)
[2016-12-30] MEDS ORDERED: DAPTOMYCIN500 MG IV (15:21)
[2016-12-31] MEDS ORDERED: LEVAQUIN750 MG ORAL (11:10)
== END 2017-01-08 | disposition home or self-care (01) ==
LOC: WCC 13:30
DX: L89.154 Pressure ulcer of sacral region, stage 4 (principal); L97.123 Non-pressure chronic ulcer of left thigh with necrosis of muscle; L97.113 Non-pressure chronic ulcer of right thigh with necrosis of muscle; L89.323 Pressure ulcer of left buttock, stage 3; L89.214 Pressure ulcer of right hip, stage 4; L02.415 Cutaneous abscess of right lower limb; E11.9 Type 2 diabetes mellitus without complications; G83.9 Paralytic syndrome, unspecified; Z88.6 Allergy status to analgesic agent; Z88.8 Allergy status to other drugs, medicaments and biological substances
CPT/HCPCS: 11042; 11044; 11047; 15271; Q4131

== ENCOUNTER 2016-12-20 15:06 | Outpatient (CLI) | payer MEDICARE, OTHER ==
[2016-12-20 16:03] LABS: ALANINE AMINOTRANSFERASE 13 U/L (3-33); ALBUMIN/GLOBULIN RATIO 0.5 (1.0-2.7); ANION GAP 11 (5-15); ASPARTATE AMINO TRANSFERASE 8 U/L (5-40); CALCIUM 8.9 mg/dL (8.6-10.2); CARBON DIOXIDE 27 mEQ/L (20-30); CHLORIDE 98 mEQ/L (98-107); CREATININE 0.6 mg/dL (0.5-0.9); GLOMERULAR FILTRATION RATE > 60 mL/min (>60); HEMOLYSIS 0; POTASSIUM 4.3 mEQ/L (3.4-4.9); SODIUM 136 mEQ/L (135-145); TOTAL PROTEIN 8.2 g/dL (6.6-8.7)
== END 2016-12-20 17:06 | disposition home or self-care (01) ==
LOC: LAB 15:06
DX: M86.9 Osteomyelitis, unspecified (principal)
CPT/HCPCS: 36415; 80053

== ENCOUNTER 2016-12-23 13:00 | Outpatient (CLI) | payer MEDICARE, OTHER ==
--- NOTE | 2016-12-23 16:15 | Diagnostic Imaging Report ---
Indication: Sacrococcygeal osteomyelitis severe decubitus ulceration. Technique: Continuous helical transaxial imaging of the pelvis was obtained from the iliac crest to the pubic symphysis. Coronal 2-D reformats were also obtained. Study obtained in a Siemens sensation [address] Intravenous non-ionic contrast was administered. Total Dose length Product (DLP): [address] Dose Index Volume (CTDIvol): 17.9 mGy Comparison: 01/28/14 Findings: Once again there is extensive erosive changes present within the lower part of the sacrum and coccyx. The findings are very much similar to the exam from 2014. There is more erosion and loss of cortical bone since that time. Severe destructive changes of both hips are also demonstrated. The femoral heads are completely eroded. The acetabula are eroded. Both of the hip joints bilaterally show complex soft tissue and fluid attenuation which is typical. On the right side, there are a few bubbles of air noted within and adjacent to the destroyed right hip which is suggestive of ongoing infection. (One caveat to this patient is had recent surgery or hip aspiration). The normal pubic bone architecture is also destroyed. The ischia are not present. There is no peritoneal abscess or free fluid. No drainable fluid collections are seen. There is a lower abdominal colostomy noted with prominent parastomal hernia again noted. There is no free fluid or free air. Gallstone is again noted. Arterial vascular calcifications are present within the aorta iliac arteries. Moderate degenerative changes of the lower lumbar spine demonstrated. Impression: Bilateral, chronic destruction of the hip joints presumably on the basis of osteomyelitis. The right hip shows a phlegmon type changes with few bubbles of air suggestive of active infection. Please correlate clinically. Severe chronic bilateral sacral decubitus ulcers with associated destruction of the lower sacrum, coccyx, portions of the pubis and both hips is still with chronic osteomyelitis. Findings have progressed since 2014. Left lower quadrant colostomy with large parastomal hernia. Gallstone Atherosclerotic disease The CT scanner at [facility] is accredited by the [employer] and the scans are performed using dose optimization techniques as appropriate to a performed exam including Automatic Exposure control.
== END 2016-12-23 15:00 | disposition home or self-care (01) ==
LOC: CAT 13:00
DX: M86.9 Osteomyelitis, unspecified (principal); L89.159 Pressure ulcer of sacral region, unspecified stage; K43.5 Parastomal hernia without obstruction or gangrene; K80.80 Other cholelithiasis without obstruction; I70.90 Unspecified atherosclerosis
CPT/HCPCS: 72193; Q9967

== ENCOUNTER 2016-12-27 09:55 | Inpatient (IN) | payer MEDICARE, OTHER ==
[~2016-12-27] VITALS: Ht 165.1 cm; Wt 82.6 kg
[2016-12-27] MEDS ORDERED: NKM (11:00)
[2016-12-27] MEDS ORDERED: Heparin 2000 units/Ns 1000ml INJ PRN (11:15)
[2016-12-27] MEDS ORDERED: Lidocaine 1% Plain 30 ml INJ PRN (11:15)
[2016-12-27] MEDS ORDERED: Sodium Bicarbonate 50ml Carp IV PRN (11:15)
[2016-12-27] MEDS ORDERED: Zolpidem 5mg tab ORAL PRN (11:15)
[2016-12-27] MEDS ORDERED: Norco 5mg/325mg tab ORAL PRN (11:15)
[2016-12-27 12:00] VITALS: BP 109/74
[2016-12-27 12:13] LABS: BASOPHILS % (AUTO) 0.6 % (0.0-2.0); EOSINOPHILS % (AUTO) 2.7 % (0.0-3.0); LYMPHOCYTES % (AUTO) 26.1 % (20.0-45.0); MEAN CORPUSCULAR HEMOGLOBIN 24.7 PG (27.0-31.0); MEAN CORPUSCULAR HGB CONC 30.9 G/DL (32.0-36.0); MEAN CORPUSCULAR VOLUME 80 FL (80-99); MEAN PLATELET VOLUME 6.8 FL (6.5-10.1); MONOCYTES % (AUTO) 3.1 % (1.0-10.0); NEUTROPHILS % (AUTO) 67.5 % (45.0-75.0); PLATELET COUNT 466 K/UL (150-450); RED BLOOD COUNT 3.53 M/UL (4.20-5.40); RED CELL DISTRIBUTION WIDTH 15.6 % (11.6-14.8); WHITE BLOOD COUNT 10.1 K/UL (4.8-10.8)
[2016-12-27 13:04] LABS: ALANINE AMINOTRANSFERASE 11 U/L (3-33); ALBUMIN/GLOBULIN RATIO 0.7 (1.0-2.7); ANION GAP 14 (5-15); ASPARTATE AMINO TRANSFERASE 7 U/L (5-40); CALCIUM 8.8 mg/dL (8.6-10.2); CARBON DIOXIDE 20 mEQ/L (20-30); CHLORIDE 100 mEQ/L (98-107); CREATININE 0.7 mg/dL (0.5-0.9); GLOMERULAR FILTRATION RATE > 60 mL/min (>60); HEMOLYSIS 0; SODIUM 134 mEQ/L (135-145); TOTAL PROTEIN 8.4 g/dL (6.6-8.7)
--- NOTE | 2016-12-27 13:35 | Infectious Diseases Prog Note ---
Assessment/Plan Assessment/Plan Full consult to follow: A) 1) bilateral hip osteomyelitis, right hip phlegmon 2) wound culture with mrsa and group-b strep 3) pmh noted 4) multiple abx allergies noted P) 1) daptomycin for 6 weeks iv 2) plastic surgery f/u for possible further debridement 3) d/w pharmacy 4) thank you Subjective Allergies: Coded Allergies: CEFTRIAXONE (Verified Allergy, Intermediate, SOB, HR-140bpm, face swollen , pt became red, 10/24/15) CODEINE (Verified Allergy, Intermediate, SWELLING, 01/03/11) LATEX (Verified Allergy, Intermediate, SWELLING, 01/03/11) PIPERACILLIN (Verified Allergy, Intermediate, Itching, 08/29/15) 08/29/15 tolerates Ceftaroline TAZOBACTAM (Verified Allergy, Intermediate, Itching, 01/29/15) POLYMYXIN B (Verified Allergy, Mild, Rash, 04/08/16) Suspected allergy reported by MD VANCOMYCIN (Verified Allergy, Mild, 07/15/14) ASPARAGINASE (Verified Allergy, Unknown, 01/28/14) CEFUROXIME (Unverified Allergy, Unknown, 04/19/16) IRON (Verified Allergy, Unknown, 01/28/14) LATEX, NATURAL RUBBER (Unverified Allergy, Unknown, 06/18/16) Objective Height (Feet): 5 Height (Inches): 5.00 Weight (Pounds): 182 Laboratory Tests Test 12/27/16 11:55 White Blood Count 10.1 K/UL (4.8-10.8) Red Blood Count 3.53 M/UL (4.20-5.40) L Hemoglobin 8.7 G/DL (12.0-16.0) L Hematocrit 28.2 % (37.0-47.0) L Mean Corpuscular Volume 80 FL (80-99) Mean Corpuscular Hemoglobin 24.7 PG (27.0-31.0) L Mean Corpuscular Hemoglobin Concent 30.9 G/DL (32.0-36.0) L Red Cell Distribution Width 15.6 % (11.6-14.8) H Platelet Count 466 K/UL (150-450) H Mean Platelet Volume 6.8 FL (6.5-10.1) Neutrophils (%) (Auto) 67.5 % (45.0-75.0) Lymphocytes (%) (Auto) 26.1 % (20.0-45.0) Monocytes (%) (Auto) 3.1 % (1.0-10.0) Eosinophils (%) (Auto) 2.7 % (0.0-3.0) Basophils (%) (Auto) 0.6 % (0.0-2.0) Sodium Level 134 mEQ/L (135-145) L Potassium Level 5.0 mEQ/L (3.4-4.9) H Chloride Level 100 mEQ/L (98-107) Carbon Dioxide Level 20 mEQ/L (20-30) Anion Gap 14 (5-15) Blood Urea Nitrogen 18 mg/dL (7-23) Creatinine 0.7 mg/dL (0.5-0.9) Estimat Glomerular Filtration Rate > 60 mL/min (>60) Glucose Level 90 mg/dL (74-106) Calcium Level 8.8 mg/dL (8.6-10.2) Total Bilirubin 0.2 mg/dL (0.0-1.2) Aspartate Amino Transf (AST/SGOT) 7 U/L (5-40) Alanine Aminotransferase (ALT/SGPT) 11 U/L (3-33) Alkaline Phosphatase 143 U/L (35-104) H Total Protein 8.4 g/dL (6.6-8.7) Albumin 3.6 g/dL (3.5-5.2) Globulin 4.8 g/dL Albumin/Globulin Ratio 0.7 (1.0-2.7) L Current Medications Medications (Trade) Dose Ordered Sig/Pineda Route PRN Reason Start Time Stop Time Status Last Admin Dose Admin Acetaminophen (Tylenol) 650 mg Q4H PRN ORAL Mild Pain (Pain Scale 1-3) 12/27/16 11:15 01/26/17 11:14 Acetaminophen/ Hydrocodone Bitart ([place] 5/325) 2 tab Q4H PRN ORAL Moderate Pain (Pain Scale 4-6) 12/27/16 11:15 01/03/17 11:14 Al Hydroxide/Mg Hydroxide (Mylanta) 30 ml Q4H PRN ORAL dyspepsia 12/27/16 11:15 01/26/17 11:14 Chlorhexidine Gluconate (Nereida-Hex 2%) 1 applic DAILY TOPIC 12/28/16 09:00 01/27/17 08:59 Dextrose (Dextrose 50%) STAT PRN IV Hypoglycemia 12/27/16 11:15 01/26/17 11:14 Diphenhydramine HCl (Benadryl) 50 mg Q6H PRN IVP Itching 12/27/16 11:15 01/26/17 11:14 Heparin Sodium (Porcine) (Heparin 5000 units/ml) 5,000 units EVERY 12 HOURS SUBQ 12/27/16 21:00 01/26/17 20:59 Heparin Sodium/ Sodium Chloride (Heparin 2000 units/Ns 1000ml premix) 2,000 unit ONCE PRN INJ PICC LINE 12/27/16 11:15 12/28/16 23:59 Hydromorphone HCl (Dilaudid) 2 mg Q3H PRN IVP Severe Pain (Pain Scale 7-10) 12/27/16 11:15 01/03/17 11:14 Lidocaine HCl (Xylocaine 1% 30ml) 30 ml ONCE PRN INJ PICC LINE 12/27/16 11:15 12/28/16 23:59 Pantoprazole (Protonix) 40 mg DAILY ORAL 12/28/16 09:00 01/27/17 08:59 Sodium Bicarbonate (Sodium Bicarbonate) 1 ml ONCE PRN IV PICC LINE USE 12/27/16 11:15 12/28/16 23:59 Zolpidem Tartrate (Ambien) 5 mg HSPRN PRN ORAL Insomnia 12/27/16 11:15 01/03/17 11:14 GRZEGORZ MARTINEZ Dec 27, 2016 13:35
[2016-12-27] MEDS ORDERED: Tigecycline 100 MG in D5W 110 ML IVPB ONE (14:00)
--- NOTE | 2016-12-27 15:04 | Diagnostic Imaging Report ---
Indications: Needs long-term IV access Technique: Ultrasound confirms patent compressible left basilic vein. Total sterile technique, including sterile probe cover and sterile gel, hat, mask,, sterile gown, large sterile drape, and preparation with 2% chlorhexidine utilized. Local anesthesia with 1% lidocaine. Under real-time ultrasound guidance, puncture is a late vein using 21-gauge needle, documented and archived, passage 0.018 guidewire under direct fluoroscopy, which was used to determine appropriate catheter length, exchange for 5 [place] peel-away sheath. 5 [place] Bard dual-lumen power PICC cut to 45 cm. It was inserted through the peel-away sheath. Peel-away sheath and guidewire removed. Catheter fixed to the skin. Both catheter ports aspirated and flushed. Patient tolerated procedure well, without immediate complication. Digital radiograph documents satisfactory catheter tip position, at the high right atrium. Total fluoroscopy time 0.2 minutes. Total dose area product 6.6 dGycm2 Impression: Successful placement of left arm PICC under sonographic and fluoroscopic guidance, as described above.
[2016-12-27] MEDS: DiphenhydrAMINE 50mg/ml Inj IVP PRN (15:18)
[2016-12-27] MEDS: DAPTOmycin 500 MG in NS 55 ML IV SCH (15:20)
[2016-12-27 16:00] VITALS: BP 119/71
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
--- NOTE | 2016-12-27 17:52 | Consultation ---
History of Present Illness General Date patient seen: Dec 27, 2016 Time patient seen: 17:43 Referring physician: Belen Reason for Consultation: Multiple pressure ulcers Present Illness HPI Asked to evaluate patient who is well known to me from wound center. She was admitted [facility] [place] P[facility] line and IV antibiotics for right hip deep space abscess. She has a h/o chronic osteo and bony destruction in b/l hips with intermittent abscesses. She also has a stage 4 sacral ulcer and bilateral posterior thigh ulcers. She received grafix to the right thigh ulcer last week and had been treated with wound vac to the left thigh ulcer but was put on hold last week for wet to dry dressings. She had CT scan showing several deeper fluid collections of the right hip that may not be communicating to the skin openings. Allergies: Coded Allergies: CEFTRIAXONE (Verified Allergy, Intermediate, SOB, HR-140bpm, face swollen , pt became red, 10/24/15) CODEINE (Verified Allergy, Intermediate, SWELLING, 01/03/11) LATEX (Verified Allergy, Intermediate, SWELLING, 01/03/11) PIPERACILLIN (Verified Allergy, Intermediate, Itching, 08/29/15) 08/29/15 tolerates Ceftaroline TAZOBACTAM (Verified Allergy, Intermediate, Itching, 01/29/15) POLYMYXIN B (Verified Allergy, Mild, Rash, 04/08/16) Suspected allergy reported by VANCOMYCIN (Verified Allergy, Mild, 07/15/14) ASPARAGINASE (Verified Allergy, Unknown, 01/28/14) CEFUROXIME (Unverified Allergy, Unknown, 04/19/16) IRON (Verified Allergy, Unknown, 01/28/14) LATEX, NATURAL RUBBER (Unverified Allergy, Unknown, 06/18/16) Medication History Scheduled Amikacin Sulfate (Amikin), 850 MG IVPB DAILY, (Reported) Heparin Sodium,Porcine/Ns/Pf (Heparin), 5,000 UNIT SQ EVERY 12 HOURS, (Reported) Meropenem (Meropenem), 1 GM IV EVERY 8 HOURS, (Reported) Meropenem (Merrem), 1 GM IVPB Q8HR, (Reported) No Known Medications* (NKM - No Known Medications*), 0 ., (Reported) Pantoprazole* (Protonix*), 40 MG ORAL DAILY, (Reported) Scheduled PRN Acetaminophen (Acetaminophen), 650 MG ORAL Q4HR PRN for Fever/Headache/Mild Pain , (Reported) Al Hydroxide/mg Hydroxide (Mag-Al Plus Suspension), 30 ML ORAL Q4HR PRN for dyspepsia, (Reported) Diphenhydramine Hcl* (Diphenhydramine Hcl*), 25 MG IVP Q3HR PRN for Itching, ( Reported) Hydromorphone HCl (Dilaudid), 2 MG IVP Q3HR PRN for Severe Pain (Pain Scale 7-10 ), (Reported) Magnesium Hydroxide* (Milk Of Magnesia*), 30 ML ORAL HS PRN for Constipation, ( Reported) Ondansetron* (Zofran*), 4 MG IV Q6HR PRN for Nausea & Vomiting, (Reported) Zolpidem Tartrate* (Ambien*), 5 MG ORAL BEDTIME PRN for insomnia, (Reported) Miscellaneous Medications Unable to Obtain Medications (Unable To Obtain Meds), (Reported) Patient History History Provided By: Patient Healthcare decision maker Resuscitation status Full Code Advanced Directive on File No Review of Systems Constitutional: Reports: no symptoms Eye: Reports: no symptoms ENT: Reports: no symptoms Respiratory: Reports: no symptoms Cardiovascular: Reports: no symptoms Gastrointestinal: Reports: no symptoms Genitourinary: Reports: incontinence Musculoskeletal: Reports: no symptoms Skin: Reports: see HPI Psychiatric: Reports: no symptoms Neurological: Reports: no symptoms Physical Exam General Appearance: WD/WN, alert Lines, tubes and drains: PICC, other - colostomy Respiratory/Chest: no respiratory distress Abdomen: non tender, soft Extremities: no edema Skin Exam: other - Stage 4 sacral ulcer with fibrotic debris to muscle and bone palpable. Left ischial ulcer with some fibrotic debris at the base. Right hip with some drainage from the skin opeining. Mild erythema but no warmth. Right posterior thigh ulcer with some fibrotic debris but appears smaller than last week. Left posterior thigh with some fibrotic debirs but no necrotic tissue. Last 24 Hour Vital Signs Date Time Temp Pulse Resp B/P (MAP) Pulse Ox O2 Delivery O2 Flow Rate FiO2 12/27/16 16:00 97.7 86 17 119/71 97 Room Air 12/27/16 12:00 97.9 20 109/74 99 Room Air Laboratory Tests Test 12/27/16 11:55 White Blood Count 10.1 K/UL (4.8-10.8) Red Blood Count 3.53 M/UL (4.20-5.40) L Hemoglobin 8.7 G/DL (12.0-16.0) L Hematocrit 28.2 % (37.0-47.0) L Mean Corpuscular Volume 80 FL (80-99) Mean Corpuscular Hemoglobin 24.7 PG (27.0-31.0) L Mean Corpuscular Hemoglobin Concent 30.9 G/DL (32.0-36.0) L Red Cell Distribution Width 15.6 % (11.6-14.8) H Platelet Count 466 K/UL (150-450) H Mean Platelet Volume 6.8 FL (6.5-10.1) Neutrophils (%) (Auto) 67.5 % (45.0-75.0) Lymphocytes (%) (Auto) 26.1 % (20.0-45.0) Monocytes (%) (Auto) 3.1 % (1.0-10.0) Eosinophils (%) (Auto) 2.7 % (0.0-3.0) Basophils (%) (Auto) 0.6 % (0.0-2.0) Sodium Level 134 mEQ/L (135-145) L Potassium Level 5.0 mEQ/L (3.4-4.9) H Chloride Level 100 mEQ/L (98-107) Carbon Dioxide Level 20 mEQ/L (20-30) Anion Gap 14 (5-15) Blood Urea Nitrogen 18 mg/dL (7-23) Creatinine 0.7 mg/dL (0.5-0.9) Estimat Glomerular Filtration Rate > 60 mL/min (>60) Glucose Level 90 mg/dL (74-106) Calcium Level 8.8 mg/dL (8.6-10.2) Total Bilirubin 0.2 mg/dL (0.0-1.2) Aspartate Amino Transf (AST/SGOT) 7 U/L (5-40) Alanine Aminotransferase (ALT/SGPT) 11 U/L (3-33) Alkaline Phosphatase 143 U/L (35-104) H Total Protein 8.4 g/dL (6.6-8.7) Albumin 3.6 g/dL (3.5-5.2) Globulin 4.8 g/dL Albumin/Globulin Ratio 0.7 (1.0-2.7) L Height (Feet): 5 Height (Inches): 5.00 Weight (Pounds): 182 Medications Current Medications Medications (Trade) Dose Ordered Sig/Pineda Route PRN Reason Start Time Stop Time Status Last Admin Dose Admin Acetaminophen (Tylenol) 650 mg Q4H PRN ORAL Mild Pain (Pain Scale 1-3) 12/27/16 11:15 01/26/17 11:14 Acetaminophen/ Hydrocodone Bitart ([place] 5/325) 2 tab Q4H PRN ORAL Moderate Pain (Pain Scale 4-6) 12/27/16 11:15 01/03/17 11:14 Al Hydroxide/Mg Hydroxide (Mylanta) 30 ml Q4H PRN ORAL dyspepsia 12/27/16 11:15 01/26/17 11:14 Chlorhexidine Gluconate (Nereida-Hex 2%) 1 applic DAILY TOPIC 12/28/16 09:00 01/27/17 08:59 Daptomycin 500 mg/ Sodium Chloride 55 ml @ 100 mls/hr Q24H IV 12/27/16 15:00 01/03/17 14:59 12/27/16 15:20 Dextrose (Dextrose 50%) STAT PRN IV Hypoglycemia 12/27/16 11:15 01/26/17 11:14 Diphenhydramine HCl (Benadryl) 50 mg Q6H PRN IVP Itching 12/27/16 11:15 01/26/17 11:14 12/27/16 15:18 Heparin Sodium (Porcine) (Heparin 5000 units/ml) 5,000 units EVERY 12 HOURS SUBQ 12/27/16 21:00 01/26/17 20:59 Heparin Sodium/ Sodium Chloride (Heparin 2000 units/Ns 1000ml premix) 2,000 unit ONCE PRN INJ PICC LINE 12/27/16 11:15 12/28/16 23:59 Hydromorphone HCl (Dilaudid) 2 mg Q3H PRN IVP Severe Pain (Pain Scale 7-10) 12/27/16 11:15 01/03/17 11:14 12/27/16 15:19 Lidocaine HCl (Xylocaine 1% 30ml) 30 ml ONCE PRN INJ PICC LINE 12/27/16 11:15 12/28/16 23:59 Pantoprazole (Protonix) 40 mg DAILY ORAL 12/28/16 09:00 01/27/17 08:59 Sodium Bicarbonate (Sodium Bicarbonate) 1 ml ONCE PRN IV PICC LINE USE 12/27/16 11:15 12/28/16 23:59 Zolpidem Tartrate (Ambien) 5 mg HSPRN PRN ORAL Insomnia 12/27/16 11:15 01/03/17 11:14 Assessment/Plan Assessment/Plan Patient will need the following: Need to go to OR to debride the ulcers, perform deep open bone biopsy of the sacrum, possibly place wound vac to left posterior thigh ulcer and drain any deep fluid collections of the right hip.Patient had WBC of 10 but this may be due to the fact that she has been on antibiotics for over 1 week at this point. LEEANNA CORONA Dec 27, 2016 17:52
[2016-12-27] MEDS: Heparin 5000 units/ml inj SUBQ SCH (20:26)
[2016-12-27 21:00] VITALS: BP 100/66
[2016-12-27] MEDS ORDERED: Tigecycline 50 MG in D5W 110 ML IVPB SCH (21:00)
[2016-12-27] MEDS ORDERED: Hydrocortisone 1% Oint 30gm TOPIC PRN (22:00)
[2016-12-28] VITALS (13 sets, daily range): BP systolic 90–132; BP diastolic 51–78
[2016-12-28] MEDS: DiphenhydrAMINE 50mg/ml Inj IVP PRN ×3 (00:43→19:59)
[2016-12-28 06:33] LABS: ANION GAP 11 (5-15); CALCIUM 8.8 mg/dL (8.6-10.2); CARBON DIOXIDE 23 mEQ/L (20-30); CHLORIDE 100 mEQ/L (98-107); CREATININE 0.6 mg/dL (0.5-0.9); GLOMERULAR FILTRATION RATE > 60 mL/min (>60); HEMOLYSIS 0; POTASSIUM 4.6 mEQ/L (3.4-4.9); SODIUM 134 mEQ/L (135-145)
[2016-12-28 06:35] LABS: MEAN CORPUSCULAR HEMOGLOBIN 24.3 PG (27.0-31.0); MEAN CORPUSCULAR HGB CONC 30.1 G/DL (32.0-36.0); MEAN CORPUSCULAR VOLUME 81 FL (80-99); MEAN PLATELET VOLUME 6.6 FL (6.5-10.1); PLATELET COUNT 405 K/UL (150-450); RED BLOOD COUNT 3.27 M/UL (4.20-5.40); RED CELL DISTRIBUTION WIDTH 15.6 % (11.6-14.8); WHITE BLOOD COUNT 7.4 K/UL (4.8-10.8)
[2016-12-28 07:18] LABS: CRP QUANT 10.7 mg/dL (< 0.5)
[2016-12-28] MEDS: Heparin 5000 units/ml inj SUBQ SCH ×2 (08:49→21:00)
--- NOTE | 2016-12-28 08:54 | General Progress Note ---
Assessment/Plan Assessment/Plan IMPRESSION: 1. possible osteomyelitis 2. chronic pain 3. History of Acute renal failure. 4. Discitis per history. 5. Paraplegia 6. chronic bed/wheelchair bound 7. Chronic opiate/narcotic dependence. 8. Anemia. PLAN supportive care transfuse antibiotics culture wound pain control plastics ID evaluation noted debridement scans if needed impression, plan, and exam edited and reviewed in detail care discussed with RN Subjective Allergies: Coded Allergies: CEFTRIAXONE (Verified Allergy, Intermediate, SOB, HR-140bpm, face swollen , pt became red, 10/24/15) CODEINE (Verified Allergy, Intermediate, SWELLING, 01/03/11) LATEX (Verified Allergy, Intermediate, SWELLING, 01/03/11) PIPERACILLIN (Verified Allergy, Intermediate, Itching, 08/29/15) 08/29/15 tolerates Ceftaroline TAZOBACTAM (Verified Allergy, Intermediate, Itching, 01/29/15) POLYMYXIN B (Verified Allergy, Mild, Rash, 04/08/16) Suspected allergy reported by MD VANCOMYCIN (Verified Allergy, Mild, 07/15/14) ASPARAGINASE (Verified Allergy, Unknown, 01/28/14) CEFUROXIME (Unverified Allergy, Unknown, 04/19/16) IRON (Verified Allergy, Unknown, 01/28/14) LATEX, NATURAL RUBBER (Unverified Allergy, Unknown, 06/18/16) Subjective comfortable plans for debridement today anemic agrees to transfusion Objective Last 24 Hour Vital Signs Date Time Temp Pulse Resp B/P (MAP) Pulse Ox O2 Delivery O2 Flow Rate FiO2 12/28/16 08:12 97.2 71 20 99/64 99 Room Air 12/28/16 07:20 97.9 12/28/16 06:22 99/55 12/28/16 04:14 97.9 80 20 90/51 96 Room Air 12/28/16 00:00 98.1 60 20 112/66 98 Room Air 12/27/16 21:00 98.3 77 20 100/66 99 Room Air 12/27/16 21:00 98.3 77 20 100/66 99 Room Air 12/27/16 16:00 97.7 86 17 119/71 97 Room Air 12/27/16 12:00 97.9 20 109/74 99 Room Air Laboratory Tests 12/27/16 11:55: White Blood Count 10.1, Red Blood Count 3.53L, Hemoglobin 8.7L, Hematocrit 28.2L , Mean Corpuscular Volume 80, Mean Corpuscular Hemoglobin 24.7L, Mean Corpuscular Hemoglobin Concent 30.9L, Red Cell Distribution Width 15.6H, Platelet Count 466H, Mean Platelet Volume 6.8, Neutrophils (%) (Auto) 67.5, Lymphocytes (%) (Auto) 26.1, Monocytes (%) (Auto) 3.1, Eosinophils (%) (Auto) 2.7, Basophils (%) (Auto) 0.6, Sodium Level 134L, Potassium Level 5.0H, Chloride Level 100, Carbon Dioxide Level 20, Anion Gap 14, Blood Urea Nitrogen 18, Creatinine 0.7, Estimat Glomerular Filtration Rate > 60, Glucose Level 90, Calcium Level 8.8, Total Bilirubin 0.2, Aspartate Amino Transf (AST/SGOT) 7, Alanine Aminotransferase (ALT/SGPT) 11, Alkaline Phosphatase 143H, Total Protein 8.4, Albumin 3.6, Globulin 4.8, Albumin/Globulin Ratio 0.7L 12/28/16 06:05: White Blood Count 7.4, Red Blood Count 3.27L, Hemoglobin 7.9L, Hematocrit 26.4L , Mean Corpuscular Volume 81, Mean Corpuscular Hemoglobin 24.3L, Mean Corpuscular Hemoglobin Concent 30.1L, Red Cell Distribution Width 15.6H, Platelet Count 405, Mean Platelet Volume 6.6, Neutrophils (%) (Auto) , Lymphocytes (%) (Auto) , Monocytes (%) (Auto) , Eosinophils (%) (Auto) , Basophils (%) (Auto) , Sodium Level 134L, Potassium Level 4.6, Chloride Level 100, Carbon Dioxide Level 23, Anion Gap 11, Blood Urea Nitrogen 14, Creatinine 0.6, Estimat Glomerular Filtration Rate > 60, Glucose Level 97, Calcium Level 8.8, Erythrocyte Sedimentation Rate 126H, Total Creatine Kinase 26, C-Reactive Protein, Quantitative 10.7H Height (Feet): 5 Height (Inches): 5.00 Weight (Pounds): 182 Objective WDWN female NAD clear breath sounds bilaterally without rhonchi or wheeze [id number] without MRG NABS nontender no HSM no CCE paraplegic nonfocal ISHAAYA,LUANN Dec 28, 2016 08:54
[2016-12-28] MEDS: Dyna-Hex 2% Top Sol 8oz TOPIC SCH (09:55)
--- NOTE | 2016-12-28 15:13 | Infectious Diseases Prog Note ---
Assessment/Plan Assessment/Plan Full consult dictated: A) 1) right hip wound infection/abscess/osteo, left hip osteo 2) right hip wound culture with mrsa and group-b strep 3) pmh noted 4) multiple abx allergies noted P) 1) daptomycin for 6 weeks iv - day # 2 2) plastic surgery for debridement 3) d/w pharmacy 4) d/w pt Subjective Allergies: Coded Allergies: CEFTRIAXONE (Verified Allergy, Intermediate, SOB, HR-140bpm, face swollen , pt became red, 10/24/15) CODEINE (Verified Allergy, Intermediate, SWELLING, 01/03/11) LATEX (Verified Allergy, Intermediate, SWELLING, 01/03/11) PIPERACILLIN (Verified Allergy, Intermediate, Itching, 08/29/15) 08/29/15 tolerates Ceftaroline TAZOBACTAM (Verified Allergy, Intermediate, Itching, 01/29/15) POLYMYXIN B (Verified Allergy, Mild, Rash, 04/08/16) Suspected allergy reported by MD VANCOMYCIN (Verified Allergy, Mild, 07/15/14) ASPARAGINASE (Verified Allergy, Unknown, 01/28/14) CEFUROXIME (Unverified Allergy, Unknown, 04/19/16) IRON (Verified Allergy, Unknown, 01/28/14) LATEX, NATURAL RUBBER (Unverified Allergy, Unknown, 06/18/16) Objective Vital Signs Last 24 Hour Vital Signs Date Time Temp Pulse Resp B/P (MAP) Pulse Ox O2 Delivery O2 Flow Rate FiO2 12/28/16 11:31 97.5 86 19 132/78 98 Room Air 12/28/16 08:12 97.2 71 20 99/64 99 Room Air 12/28/16 07:20 97.9 12/28/16 06:22 99/55 12/28/16 04:14 97.9 80 20 90/51 96 Room Air 12/28/16 00:00 98.1 60 20 112/66 98 Room Air 12/27/16 21:00 98.3 77 20 100/66 99 Room Air 12/27/16 21:00 98.3 77 20 100/66 99 Room Air 12/27/16 16:00 97.7 86 17 119/71 97 Room Air Height (Feet): 5 Height (Inches): 5.00 Weight (Pounds): 182 Microbiology Date/Time Source Procedure Growth Status 12/27/16 14:30 Sacral Wound Gram Stain - Final Resulted 12/27/16 14:30 Sacral Wound Wound Culture Pending Resulted Laboratory Tests Test 12/28/16 06:05 White Blood Count 7.4 K/UL (4.8-10.8) Red Blood Count 3.27 M/UL (4.20-5.40) L Hemoglobin 7.9 G/DL (12.0-16.0) L Hematocrit 26.4 % (37.0-47.0) L Mean Corpuscular Volume 81 FL (80-99) Mean Corpuscular Hemoglobin 24.3 PG (27.0-31.0) L Mean Corpuscular Hemoglobin Concent 30.1 G/DL (32.0-36.0) L Red Cell Distribution Width 15.6 % (11.6-14.8) H Platelet Count 405 K/UL (150-450) Mean Platelet Volume 6.6 FL (6.5-10.1) Neutrophils (%) (Auto) % (45.0-75.0) Lymphocytes (%) (Auto) % (20.0-45.0) Monocytes (%) (Auto) % (1.0-10.0) Eosinophils (%) (Auto) % (0.0-3.0) Basophils (%) (Auto) % (0.0-2.0) Erythrocyte Sedimentation Rate 126 MM/HR (0-20) H Sodium Level 134 mEQ/L (135-145) L Potassium Level 4.6 mEQ/L (3.4-4.9) Chloride Level 100 mEQ/L (98-107) Carbon Dioxide Level 23 mEQ/L (20-30) Anion Gap 11 (5-15) Blood Urea Nitrogen 14 mg/dL (7-23) Creatinine 0.6 mg/dL (0.5-0.9) Estimat Glomerular Filtration Rate > 60 mL/min (>60) Glucose Level 97 mg/dL (74-106) Calcium Level 8.8 mg/dL (8.6-10.2) Total Creatine Kinase 26 U/L (26-140) C-Reactive Protein, Quantitative 10.7 mg/dL (< 0.5) H Current Medications Medications (Trade) Dose Ordered Sig/Pineda Route PRN Reason Start Time Stop Time Status Last Admin Dose Admin Acetaminophen (Tylenol) 650 mg Q4H PRN ORAL Mild Pain (Pain Scale 1-3) 12/27/16 11:15 01/26/17 11:14 Acetaminophen/ Hydrocodone Bitart ([place] 5/325) 2 tab Q4H PRN ORAL Moderate Pain (Pain Scale 4-6) 12/27/16 11:15 01/03/17 11:14 Al Hydroxide/Mg Hydroxide (Mylanta) 30 ml Q4H PRN ORAL dyspepsia 12/27/16 11:15 01/26/17 11:14 Chlorhexidine Gluconate (Nereida-Hex 2%) 1 applic DAILY TOPIC 12/28/16 09:00 01/27/17 08:59 12/28/16 09:55 Daptomycin 500 mg/ Sodium Chloride 55 ml @ 100 mls/hr Q24H IV 12/27/16 15:00 01/03/17 14:59 12/27/16 15:20 Dextrose (Dextrose 50%) STAT PRN IV Hypoglycemia 12/27/16 11:15 01/26/17 11:14 Diphenhydramine HCl (Benadryl) 50 mg Q6H PRN IVP Itching 12/27/16 11:15 01/26/17 11:14 12/28/16 09:54 Heparin Sodium (Porcine) (Heparin 5000 units/ml) 5,000 units EVERY 12 HOURS SUBQ 12/27/16 21:00 01/26/17 20:59 Heparin Sodium/ Sodium Chloride (Heparin 2000 units/Ns 1000ml premix) 2,000 unit ONCE PRN INJ PICC LINE 12/27/16 11:15 12/28/16 23:59 Hydrocortisone (Hydrocortisone) 1 applic BID PRN TOPIC Itching 12/27/16 22:00 01/26/17 21:59 12/28/16 00:44 Hydromorphone HCl (Dilaudid) 2 mg Q3H PRN IVP Severe Pain (Pain Scale 7-10) 12/27/16 11:15 01/03/17 11:14 12/28/16 14:00 Lidocaine HCl (Xylocaine 1% 30ml) 30 ml ONCE PRN INJ PICC LINE 12/27/16 11:15 12/28/16 23:59 Ondansetron HCl (Zofran) 4 mg Q6H PRN IVP Nausea & Vomiting 12/27/16 20:45 01/26/17 20:44 12/27/16 21:02 Pantoprazole (Protonix) 40 mg DAILY ORAL 12/28/16 09:00 01/27/17 08:59 Sodium Bicarbonate (Sodium Bicarbonate) 1 ml ONCE PRN IV PICC LINE USE 12/27/16 11:15 12/28/16 23:59 Zolpidem Tartrate (Ambien) 5 mg HSPRN PRN ORAL Insomnia 12/27/16 11:15 01/03/17 11:14 GRZEGORZ MARTINEZ Dec 28, 2016 15:13
[2016-12-28] MEDS ORDERED: Propofol 200mg/20ml IV ONE (15:49)
[2016-12-28] MEDS ORDERED: Bacitracin 50000 Units Vial ONE (15:50)
[2016-12-28] MEDS ORDERED: Lidocaine 0.5% Epi 50 mL Vial ONE (15:54)
[2016-12-28] MEDS ORDERED: NeoSporin Gu Irrig 1ml Amp IRRIG ONE (15:54)
[2016-12-28] MEDS ORDERED: ProvayBlue 5mg/ml 10ml amp INJ PRN (16:00)
--- NOTE | 2016-12-28 16:07 | Anethesia Preoperative Eval ---
Anesthesia Pre-op PMH/ROS General Date of Evaluation: Dec 28, 2016 Time of Evaluation: 16:01 Anesthesiologist: Earle ASA Score: ASA 4 Mallampati Score Class I : Soft palate, uvula, fauces, pillars visible Class II: Soft palate, uvula, fauces visible Class III: Soft palate, base of uvula visible Class IV: Only hard plate visible Mallampati Classification: Class III Surgeon: Oscar Diagnosis: Chronic lower back wound Surgical Procedure: I&D of lower back wound Anesthesia History: none Social History: drug use - opiooid dependent Allergies: Coded Allergies: CEFTRIAXONE (Verified Allergy, Intermediate, SOB, HR-140bpm, face swollen , pt became red, 10/24/15) CODEINE (Verified Allergy, Intermediate, SWELLING, 01/03/11) LATEX (Verified Allergy, Intermediate, SWELLING, 01/03/11) PIPERACILLIN (Verified Allergy, Intermediate, Itching, 08/29/15) 08/29/15 tolerates Ceftaroline TAZOBACTAM (Verified Allergy, Intermediate, Itching, 01/29/15) POLYMYXIN B (Verified Allergy, Mild, Rash, 04/08/16) Suspected allergy reported by VANCOMYCIN (Verified Allergy, Mild, 07/15/14) ASPARAGINASE (Verified Allergy, Unknown, 01/28/14) CEFUROXIME (Unverified Allergy, Unknown, 04/19/16) IRON (Verified Allergy, Unknown, 01/28/14) LATEX, NATURAL RUBBER (Unverified Allergy, Unknown, 06/18/16) Past Medical History Cardiovascular: Reports: HTN Pulmonary: Reports: other - recurrent pneumonia, Denies: asthma, COPD, ROMINA Gastrointestinal/Genitourinary: Reports: GERD, other - recurrent UTI, Denies: CRI, ESRD 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: Reports: depression/anxiety, other - chronic pain paraplegia T9 Endocrine: Reports: hypothyroidism, Denies: DM, steroids, other HEENT: Denies: cataract (L), cataract (R), glaucoma, PAUMA (L), PAUMA (R), other Hematology/Immune: Reports: anemia, Denies: DVT, bleeding disorder, other Musculoskeletal/Integumentary: Denies: OA, RA, DJD, DDD, edema, other Other: other - overweight PMH Narrative: as above PSxH Narrative: multiple diverting colostomy and see H&P Anesthesia Pre-op Phys. Exam Physician Exam Last Vital Signs Date Time Temp Pulse Resp B/P (MAP) Pulse Ox O2 Delivery O2 Flow Rate FiO2 12/28/16 15:30 97.0 72 20 95/56 100 Room Air Constitutional: NAD Neurologic: CN 2-12 intact, other - paraplegia Respiratory: CTA Gastrointestinal: S/NT/ND Airway Exam Mallampati Score: Class III MO: limited Neck: stiff ROM: limited Teeth: missing Dentures: no upper, no lower Anesthesia Pre-op A/P Labs Hematology Test 12/28/16 06:05 White Blood Count 7.4 K/UL (4.8-10.8) Red Blood Count 3.27 M/UL (4.20-5.40) L Hemoglobin 7.9 G/DL (12.0-16.0) L Hematocrit 26.4 % (37.0-47.0) L Mean Corpuscular Volume 81 FL (80-99) Mean Corpuscular Hemoglobin 24.3 PG (27.0-31.0) L Mean Corpuscular Hemoglobin Concent 30.1 G/DL (32.0-36.0) L Red Cell Distribution Width 15.6 % (11.6-14.8) H Platelet Count 405 K/UL (150-450) Mean Platelet Volume 6.6 FL (6.5-10.1) Neutrophils (%) (Auto) % (45.0-75.0) Lymphocytes (%) (Auto) % (20.0-45.0) Monocytes (%) (Auto) % (1.0-10.0) Eosinophils (%) (Auto) % (0.0-3.0) Basophils (%) (Auto) % (0.0-2.0) Erythrocyte Sedimentation Rate 126 MM/HR (0-20) H Chemistry Test 12/28/16 06:05 Sodium Level 134 mEQ/L (135-145) L Potassium Level 4.6 mEQ/L (3.4-4.9) Chloride Level 100 mEQ/L (98-107) Carbon Dioxide Level 23 mEQ/L (20-30) Anion Gap 11 (5-15) Blood Urea Nitrogen 14 mg/dL (7-23) Creatinine 0.6 mg/dL (0.5-0.9) Estimat Glomerular Filtration Rate > 60 mL/min (>60) Glucose Level 97 mg/dL (74-106) Calcium Level 8.8 mg/dL (8.6-10.2) Total Creatine Kinase 26 U/L (26-140) C-Reactive Protein, Quantitative 10.7 mg/dL (< 0.5) H Studies Pre-op Studies: EKG - SR Risk Assessment & Plan Assessment: ASA 4 Plan: GA wit ETT prone position Status Change Before Surgery: No Pre-Antibiotics Drug: as scheduled LUCIO MARSHALL M.D. Dec 28, 2016 16:07
[2016-12-28] MEDS ORDERED: Surgicel 4in x 8in TOPIC ONE (16:19)
--- NOTE | 2016-12-28 16:43 | Pre-Procedure Note/Attestation ---
Pre-Procedure Note/Attestation Complete Prior to Procedure Planned Procedure: not applicable Procedure Narrative: Debridement of sacral, left thigh, right thigh, left ischial ulcers, right hip ulcers, deep open bone biopsy of sacrum, and drainage f right hip deep space abscess. Indications for Procedure Pre-Operative Diagnosis: Pressure ulcers of sacrum, left ischium, b/l posterior thighs, right hip, possible osteomyelitis sacrum, abscess of right hip Attestation I attest that I discussed the nature of the procedure; its benefits; risks and complications; and alternatives (and the risks and benefits of such alternatives ), prior to the procedure, with the patient (or the patient's legal fraud representative). I attest that, if there was a reasonable possibility of needing a blood transfusion, the patient (or the patient's legal fraud representative) was given the [place] Department [employer] Services standardized written summary, pursuant to the [place] Blood Safety Act ([place] Health and Safety Code # 1645, as amended). I attest that I re-evaluated the patient just prior to the surgery and that there has been no change in the patient's H&P, except as documented below: LEEANNA CORONA Dec 28, 2016 16:43
[2016-12-28] MEDS ORDERED: Neostigmine 1mg/ml 10ml Inj ONE (17:00)
[2016-12-28] MEDS ORDERED: NS Irrig 4000ml IRRIG ONE ×2 (17:00→19:15)
[2016-12-28] MEDS ORDERED: Zemuron 50mg/5ml Inj IV ONE (17:00)
[2016-12-28] MEDS ORDERED: fentaNYL 250mcg/5ml ONE (17:00)
[2016-12-28] MEDS ORDERED: Glycopyrrolate 0.2mg/ml 1ml Vial ONE (17:00)
[2016-12-28] MEDS ORDERED: Midazolam 2mg/2ml Inj ONE ×2 (17:00)
[2016-12-28] MEDS ORDERED: LR 1000ml 1,000 ML IVLG SCH (17:48)
[2016-12-28] MEDS ORDERED: DiphenhydrAMINE 50mg/ml Inj IVP PRN (18:00)
[2016-12-28] MEDS ORDERED: Hydromorphone 0.5mg/0.5ml inj IVP PRN (18:00)
[2016-12-28] MEDS ORDERED: Meperidine 25mg/0.5ml Inj (FOR RIGORS ONLY) IV PRN (18:00)
[2016-12-28] MEDS ORDERED: Midazolam 2mg/2ml Inj IVP PRN (18:00)
--- NOTE | 2016-12-28 18:28 | Brief Operative Note ---
Immediate Post Operative Note Operative Note Pre-op Diagnosis: Pressure ulcers of sacrum, left ischium, b/l posterior thighs, right hip, possible osteomyelitis sacrum, abscess of right hip Procedure: Excisional debridement down to muscle of sacral ulcer, deep open bone biopsy of sacrum, excisional debridement down to bone of left posterior thigh ulcer, excisional debridement of subcutaneous tissue of right posterior thigh ulcer, I& D of right hip abscesses (complicated). Post-op Diagnosis: same as pre-op Surgeon: Susu Anesthesiologist: Earle Anesthesia: general Specimen: yes Complications: none Condition: stable Fluids: IVF Estimated Blood Loss: minimal Drains: none Implant(s) used?: No LEEANNA CORONA Dec 28, 2016 18:27
--- NOTE | 2016-12-28 18:44 | Immediate Post-Op Evaluation ---
Immediate Post-Op Evalulation Immediate Post-Op Evalulation Procedure: I&D of chronic decubitus ulcer Date of Evaluation: Dec 28, 2016 Time of Evaluation: 18:43 IV Fluids: 700 Blood Products: 1 unit of PRBC Estimated Blood Loss: 50 Urinary Output: n/a Blood Pressure Systolic: 115 Blood Pressure Diastolic: 62 Pulse Rate: 64 Respiratory Rate: 20 O2 Sat by Pulse Oximetry: 98 Temperature (Fahrenheit): 97.1 Pain Score (1-10): 2 Nausea: No Vomiting: No Complications none Patient Status: reacts, patent, extubated, none Hydration Status: adequate LUCIO MARSHALL M.D. Dec 28, 2016 18:44
[2016-12-28] MEDS: DAPTOmycin 500 MG in NS 55 ML IV SCH (19:00)
[2016-12-29] VITALS: BP 106/46
[2016-12-29] MEDS: DiphenhydrAMINE 50mg/ml Inj IVP PRN ×4 (01:59→20:25)
[2016-12-29 04:00] VITALS: BP 95/54
--- NOTE | 2016-12-29 06:00 | Operative Note - Dictated ---
DATE OF OPERATION: 12/28/2016 SURGEON: Keegan Cristobal M.D. ANESTHESIOLOGIST: Jordan Og M.D. Preoperative Diagnosis: Sacral pressure ulcer, stage IV. Left posterior thigh ulcer stage III. Right posterior thigh ulcer and complex abscess of the right hip. Postoperative Diagnosis: Sacral pressure ulcer, stage IV. Left posterior thigh ulcer stage III. Right posterior thigh ulcer and complex abscess of the right hip. OPERATION: 1. Excisional debridement down to muscle on the sacral pressure ulcer with a deep open bone biopsy of the sacrum. 2. Excisional debridement down to the bone of the left posterior thigh ulcer. 3. Excisional debridement down to subcutaneous tissue on the right posterior thigh ulcer. 4. Complex I&D of right hip abscesses. ANESTHESIA: General anesthesia. Operative Indications: This is a 41-year-old female, who presented with the above named issues. She has had a chronic history of wounds due to her paraplegia. She has also had chronic osteomyelitis of both femoral head and neck and chronic bilateral hip dislocation. She was admitted to the hospital on 12/27/[address] scan findings of deep abscess in the right hip and underwent a PICC line for IV antibiotics. She was seen in consultation. Decision was made to take her to the operating room for the above-named procedures. Of note, she had been a patient [facility] prior to admission and had been treated for these above named issues during her weekly visits prior to her developing an abscess of her right hip. An operative plan was devised, agreed upon, and once she was medically cleared and consent was obtained, she was scheduled for surgery. Operative Procedure: The patient was seen in the preoperative area and the operative plan was again discussed and agreed upon. She was taken back to the operating room and intubated in her bed and then placed in the operating table on pads and Gel-Foam in the prone position. Once all pressure points were padded and secured, the surgical areas were prepped and draped in usual sterile fashion. Using a combination of a #15 scalpel and a curette, sharp excisional debridement was performed of the left posterior thigh ulcer down to the level of bone. This measured 10 x 4.8 x 3 cm. Once this was done, hemostasis was carefully obtained. Attention was turned to the right posterior thigh ulcer which was debrided down to subcutaneous tissue using a #15 scalpel. This measured 2.5 x 1.5 x 0.4 cm. Attention was then turned to the sacral ulcer and excisional debridement down to the muscle was performed using a combination of a #15 blade and a curette to remove fibrotic debris and nonviable tissue. At this point, the sacral bone was identified and using a rongeur, a deep open bone biopsy was taken, was performed, and samples were sent for pathology as well as for microbiology for aerobes and anaerobes. Final measurement was 10 x 4.5 x 2 cm. Attention at this point was then turned to the right hip abscess and her prior right hip incision was opened starting from the area of currently opened wound for a distance of 3 cm. This was again explored and a pocket of purulent fluid was encountered. This was cultured for aerobes and anaerobes. At this point, irrigation was performed. After loculations were divided, a total of 4 liters of triple antibiotic solution was pulse irrigated. Hemostasis was then carefully obtained and at this point the dressings were applied. The dressings consisted of wet-to-dry pack to the left posterior thigh, the sacral ulcer and then packing of Kerlix into the right hip abscess space. Adaptic was placed on the left ischial as well as right posterior thigh ulcers and all areas were then covered with 4 x 4 gauze and ABDs and Medipore tape. At this point, the surgery was completed and the patient was then placed back on her hospital bed and extubated and taken to the recovery room in stable condition. There were no complications. EBL was minimal. The patient tolerated the procedure well. Cultures were sent as well as bone specimen for pathology for osteomyelitis of the sacrum. Keegan Cristobal M.D. DR: STACEY JOB#: [id number] CC:
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
--- NOTE | 2016-12-29 08:25 | 48 Hour Post Anesthesia Eval ---
Post Anesthesia Evaluation Procedure: I&D of chronic decubitus ulcer Date of Evaluation: Dec 29, 2016 Blood Pressure Systolic: 95 0: 54 Pulse Rate: 73 Respiratory Rate: 20 Temperature (Fahrenheit): 97.9 O2 Sat by Pulse Oximetry: 99 Airway: patent Nausea: No Vomiting: No Pain Intensity: 0 Hydration Status: adequate Cardiopulmonary Status: at baseline Mental Status/LOC: patient returned to baseline Post-Anesthesia Complications: 0 Follow-up care needed: N/A - further care as per primary team JEWEL NEVES M.D. Dec 29, 2016 08:25
[2016-12-29 08:30] VITALS: BP 128/84
[2016-12-29] MEDS: Heparin 5000 units/ml inj SUBQ SCH ×2 (09:00→20:28)
[2016-12-29] MEDS: Dyna-Hex 2% Top Sol 8oz TOPIC SCH (09:00)
[2016-12-29] MEDS ORDERED: Tubing IV Secondary IV ONE (11:31)
[2016-12-29] MEDS ORDERED: NS 275ml ONE ×2 (11:31→16:29)
[2016-12-29 12:00] VITALS: BP 130/83
[2016-12-29 16:00] VITALS: BP 110/88
[2016-12-29] MEDS: DAPTOmycin 500 MG in NS 55 ML IV SCH (16:01)
[2016-12-29] MEDS ORDERED: Tubing Blood Filter IV ONE (16:29)
--- NOTE | 2016-12-29 17:30 | General Progress Note ---
Assessment/Plan Assessment/Plan IMPRESSION: 1. possible osteomyelitis 2. chronic pain 3. History of Acute renal failure. 4. Discitis per history. 5. Paraplegia 6. chronic bed/wheelchair bound 7. Chronic opiate/narcotic dependence. 8. Anemia. PLAN supportive care transfused antibiotics iv daptomycin x 6 weeks culture wound pain control plastics ID evaluation noted and appreciated surgically cleared home health to be arranged impression, plan, and exam edited and reviewed in detail care discussed with RN Subjective Allergies: Coded Allergies: CEFTRIAXONE (Verified Allergy, Intermediate, SOB, HR-140bpm, face swollen , pt became red, 10/24/15) CODEINE (Verified Allergy, Intermediate, SWELLING, 01/03/11) LATEX (Verified Allergy, Intermediate, SWELLING, 01/03/11) PIPERACILLIN (Verified Allergy, Intermediate, Itching, 08/29/15) 08/29/15 tolerates Ceftaroline TAZOBACTAM (Verified Allergy, Intermediate, Itching, 01/29/15) POLYMYXIN B (Verified Allergy, Mild, Rash, 04/08/16) Suspected allergy reported by VANCOMYCIN (Verified Allergy, Mild, 07/15/14) ASPARAGINASE (Verified Allergy, Unknown, 01/28/14) CEFUROXIME (Unverified Allergy, Unknown, 04/19/16) IRON (Verified Allergy, Unknown, 01/28/14) LATEX, NATURAL RUBBER (Unverified Allergy, Unknown, 06/18/16) Subjective comfortable underwent transfusion cleared for dc per ID Objective Last 24 Hour Vital Signs Date Time Temp Pulse Resp B/P (MAP) Pulse Ox O2 Delivery O2 Flow Rate FiO2 12/29/16 16:00 97.7 85 18 110/88 98 Room Air 12/29/16 12:00 97.7 86 20 130/83 99 Room Air 12/29/16 08:30 97.0 85 20 128/84 99 Room Air 12/29/16 08:25 73 20 99 12/29/16 05:27 97.9 12/29/16 04:00 98.2 73 20 95/54 99 Room Air 12/29/16 00:00 97.9 74 20 106/46 98 Room Air 12/28/16 20:00 97.7 76 20 105/61 98 Room Air 12/28/16 19:30 97.1 61 15 122/60 98 Room Air 12/28/16 19:15 62 17 119/63 97 Room Air 12/28/16 19:00 61 15 115/62 99 Nasal Cannula 3.0 12/28/16 18:50 66 14 125/61 99 Nasal Cannula 3.0 12/28/16 18:44 64 20 98 12/28/16 18:40 60 15 115/64 99 Nasal Cannula 3.0 12/28/16 18:36 96.9 61 20 132/78 100 Nasal Cannula 3.0 Height (Feet): 5 Height (Inches): 5.00 Weight (Pounds): 182 Objective WDWN female NAD clear breath sounds bilaterally without rhonchi or wheeze [id number] without MRG NABS nontender no HSM no CCE paraplegic nonfocal LUANN MICHEL Dec 29, 2016 17:30
[2016-12-29 20:00] VITALS: BP 144/89
[2016-12-30] VITALS: BP 118/56
[2016-12-30] MEDS: DiphenhydrAMINE 50mg/ml Inj IVP PRN ×4 (02:28→22:39)
[2016-12-30 04:40] VITALS: BP 116/59
--- NOTE | 2016-12-30 07:22 | Wound Care Consultation ---
Wound Assessment Wound Assessment #1: Wound Number: 1 Wound Present on Admission: Yes New Wound: No Status Change of Wound: No Wound Location Body Site Modif: left, posterior Wound Location Body Site: thigh Wound Type: pressure ulcer Gilberto Test: Does not Gilberto Pressure Ulcer Stage: IV/unstageable Wound Thickness: Full Thickness Wound Length: 10.0 Wound Width: 5.0 Wound Depth: 2.5 Percent of Wound [place]/Red: 95 Percent of Wound Bed Yellow/Wh: 5 Wound Drainage Description: Serosanguineous Wound Drainage Amount: Moderate Wound Drainage Odor: None/Absent Tissue Surrounding Wound: Erythemic Wound General Appearance: Reddened, Draining, Muscle Visible Wound Assessment #2: Wound Number: 2 Wound Present on Admission: Yes New Wound: No Status Change of Wound: No Wound Location Body Site Modif: left Wound Location Body Site: ischial tuberosity Wound Type: pressure ulcer Gilberto Test: Does not Gilberto Pressure Ulcer Stage: IV/unstageable Wound Thickness: Full Thickness Wound Length: 2.0 Wound Width: 2.0 Wound Depth: 0.4 Percent of Wound [place]/Red: 100 Wound Drainage Description: Serosanguineous Wound Drainage Amount: Moderate Wound Drainage Odor: None/Absent Tissue Surrounding Wound: full thickness scar tissue Wound General Appearance: Reddened, Draining Wound Assessment #3: Wound Number: 3 Wound Present on Admission: Yes New Wound: No Status Change of Wound: No Wound Location Body Site Modif: mid Wound Location Body Site: sacral Wound Type: pressure ulcer Gilberto Test: Does not Gilberto Pressure Ulcer Stage: IV/unstageable Wound Thickness: Full Thickness Wound Length: 7.0 Wound Width: 5.0 Wound Depth: 1.5 Percent of Wound [place]/Red: 100 Wound Drainage Description: Serosanguineous Wound Drainage Amount: Moderate Wound Drainage Odor: None/Absent Tissue Surrounding Wound: full thickness scar tissue Wound General Appearance: Reddened, Draining Wound Assessment #4: Wound Number: 4 Wound Present on Admission: Yes New Wound: No Status Change of Wound: No Wound Location Body Site Modif: right, posterior Wound Location Body Site: knee Wound Type: pressure ulcer Gilberto Test: Does not Gilberto Pressure Ulcer Stage: IV/unstageable Wound Thickness: Full Thickness Wound Length: 4.5 Wound Width: 3.0 Wound Depth: 0.2 Percent of Wound [place]/Red: 100 Wound Drainage Description: Serosanguineous Wound Drainage Amount: Moderate Wound Drainage Odor: None/Absent Tissue Surrounding Wound: full thickness scar tissue Wound General Appearance: Reddened, Draining Wound Assessment #5: Wound Number: 5 Wound Present on Admission: Yes New Wound: No Status Change of Wound: No Wound Location Body Site Modif: right, upper, lateral Wound Location Body Site: thigh Wound Type: pressure ulcer Gilberto Test: Does not Gilberto Pressure Ulcer Stage: IV/unstageable Wound Thickness: Full Thickness Wound Length: 4.5 Wound Width: 1.5 Wound Depth: 4.5 Percent of Wound [place]/Red: 10 Wound Drainage Description: Serosanguineous Wound Drainage Amount: Moderate Wound Drainage Odor: None/Absent Tissue Surrounding Wound: Intact Wound General Appearance: Reddened, Draining, Muscle Visible Wound Assessment #6: Wound Number: 6 Wound Present on Admission: Yes New Wound: No Status Change of Wound: No Wound Location Body Site Modif: right, mid, lateral Wound Location Body Site: thigh Wound Type: pressure ulcer Gilberto Test: Does not Gilberto Pressure Ulcer Stage: IV/unstageable Wound Thickness: Full Thickness Wound Length: 2.0 Wound Width: 1.0 Wound Depth: 2.5 Percent of Wound [place]/Red: 100 Wound Drainage Description: Serosanguineous Wound Drainage Amount: Moderate Wound Drainage Odor: None/Absent Tissue Surrounding Wound: Intact Wound General Appearance: Reddened, Draining, Muscle Visible Wound Comment #1 Left posterior thigh stage IV pressure ulcer #2 Left ischial tuberosity stage Iv pressure ulcer #3 Sacral stage IV pressure ulcer #4 Right posterior knee stage IV pressure ulcer #5 Right upper lateral thigh stage IV pressure ulcer #6 Right mid lateral thigh stage IV pressure ulcer Pt agreed for assessment on 12/30/16. No recommendation, Pt is under the care of Dr Cristobal and wanted to be seen by him only for any recommendations fo wound care treatments. Recommendation -Local wound care as ordered by MD -Keep clean and dry -Turn and reposition -Optimize nutrition -Offload both heels -Heel protector on both heels -Low air loss mattress SPR -Assess and f/u accordingly for any changes BEN ANDREWS RN Dec 30, 2016 07:22
[2016-12-30] MEDS ORDERED: Hydrocortisone 1% Cr 30gm TOPIC PRN (08:00)
[2016-12-30 08:03] LABS: BASOPHILS % (AUTO) 0.7 % (0.0-2.0); EOSINOPHILS % (AUTO) 5.9 % (0.0-3.0); LYMPHOCYTES % (AUTO) 32.4 % (20.0-45.0); MEAN CORPUSCULAR HEMOGLOBIN 26.1 PG (27.0-31.0); MEAN CORPUSCULAR HGB CONC 31.7 G/DL (32.0-36.0); MEAN CORPUSCULAR VOLUME 82 FL (80-99); MEAN PLATELET VOLUME 6.3 FL (6.5-10.1); MONOCYTES % (AUTO) 3.3 % (1.0-10.0); NEUTROPHILS % (AUTO) 57.7 % (45.0-75.0); PLATELET COUNT 348 K/UL (150-450); RED BLOOD COUNT 3.78 M/UL (4.20-5.40); RED CELL DISTRIBUTION WIDTH 15.1 % (11.6-14.8)
[2016-12-30 08:15] VITALS: BP 109/75
[2016-12-30 08:20] LABS: ANION GAP 10 (5-15); CALCIUM 8.6 mg/dL (8.6-10.2); CARBON DIOXIDE 25 mEQ/L (20-30); CHLORIDE 101 mEQ/L (98-107); CREATININE 0.8 mg/dL (0.5-0.9); GLOMERULAR FILTRATION RATE > 60 mL/min (>60); HEMOLYSIS 0; POTASSIUM 4.5 mEQ/L (3.4-4.9); SODIUM 136 mEQ/L (135-145)
[2016-12-30] MEDS: Dyna-Hex 2% Top Sol 8oz TOPIC SCH (09:00)
[2016-12-30] MEDS: Heparin 5000 units/ml inj SUBQ SCH ×2 (09:00→21:38)
[2016-12-30 12:11] VITALS: BP 115/62
--- NOTE | 2016-12-30 15:10 | General Progress Note ---
Assessment/Plan Assessment/Plan IMPRESSION: 1. possible osteomyelitis 2. chronic pain 3. History of Acute renal failure. 4. Discitis per history. 5. Paraplegia 6. chronic bed/wheelchair bound 7. Chronic opiate/narcotic dependence. 8. Anemia. PLAN supportive care transfused antibiotics iv daptomycin x 6 weeks for home culture wound per ID noted pain control- norco at home plastics- cleared ID evaluation noted and appreciated surgically cleared home health and dc today impression, plan, and exam edited and reviewed in detail care discussed with RN Subjective Allergies: Coded Allergies: CEFTRIAXONE (Verified Allergy, Intermediate, SOB, HR-140bpm, face swollen , pt became red, 10/24/15) CODEINE (Verified Allergy, Intermediate, SWELLING, 01/03/11) LATEX (Verified Allergy, Intermediate, SWELLING, 01/03/11) PIPERACILLIN (Verified Allergy, Intermediate, Itching, 08/29/15) 08/29/15 tolerates Ceftaroline TAZOBACTAM (Verified Allergy, Intermediate, Itching, 01/29/15) POLYMYXIN B (Verified Allergy, Mild, Rash, 04/08/16) Suspected allergy reported by VANCOMYCIN (Verified Allergy, Mild, 07/15/14) ASPARAGINASE (Verified Allergy, Unknown, 01/28/14) CEFUROXIME (Unverified Allergy, Unknown, 04/19/16) IRON (Verified Allergy, Unknown, 01/28/14) LATEX, NATURAL RUBBER (Unverified Allergy, Unknown, 06/18/16) Subjective comfortable underwent transfusion and HH improved cleared for dc per ID HH arranged Objective Last 24 Hour Vital Signs Date Time Temp Pulse Resp B/P (MAP) Pulse Ox O2 Delivery O2 Flow Rate FiO2 12/30/16 12:11 98.7 75 20 115/62 99 Room Air 12/30/16 08:15 98.2 87 21 109/75 97 Room Air 12/30/16 04:40 97.5 72 20 116/59 100 Room Air 12/30/16 00:00 97.7 70 18 118/56 98 Room Air 12/29/16 20:00 96.4 85 20 144/89 98 Room Air 12/29/16 16:00 97.7 85 18 110/88 98 Room Air Intake and Output 12/30/16 12/31/16 19:00 07:00 Intake Total 240 ml Balance 240 ml Intake Oral 240 ml Laboratory Tests 12/30/16 06:00: White Blood Count 7.0, Red Blood Count 3.78L, Hemoglobin 9.9L, Hematocrit 31.1L , Mean Corpuscular Volume 82, Mean Corpuscular Hemoglobin 26.1L, Mean Corpuscular Hemoglobin Concent 31.7L, Red Cell Distribution Width 15.1H, Platelet Count 348, Mean Platelet Volume 6.3L, Neutrophils (%) (Auto) 57.7, Lymphocytes (%) (Auto) 32.4, Monocytes (%) (Auto) 3.3, Eosinophils (%) (Auto) 5.9H, Basophils (%) (Auto) 0.7, Sodium Level 136, Potassium Level 4.5, Chloride Level 101, Carbon Dioxide Level 25, Anion Gap 10, Blood Urea Nitrogen 16, Creatinine 0.8, Estimat Glomerular Filtration Rate > 60, Glucose Level 102, Calcium Level 8.6 Height (Feet): 5 Height (Inches): 5.00 Weight (Pounds): 182 Objective WDWN female NAD clear breath sounds bilaterally without rhonchi or wheeze [id number] without MRG NABS nontender no HSM no CCE paraplegic nonfocal LUANN MICHEL Dec 30, 2016 15:10
[2016-12-30] MEDS ORDERED: DAPTOMYCIN500 MG IV (15:21)
[2016-12-30 15:54] VITALS: BP 137/78
[2016-12-30] MEDS: DAPTOmycin 500 MG in NS 55 ML IV SCH (15:58)
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
[2016-12-30 20:00] VITALS: BP 129/82
[2016-12-31] VITALS: BP 132/74
[2016-12-31 04:00] VITALS: BP 115/67
[2016-12-31] MEDS: DiphenhydrAMINE 50mg/ml Inj IVP PRN ×2 (04:59→11:19)
--- NOTE | 2016-12-31 08:06 | General Progress Note ---
Assessment/Plan Assessment/Plan IMPRESSION: 1. possible osteomyelitis 2. chronic pain 3. History of Acute renal failure. 4. Discitis per history. 5. Paraplegia 6. chronic bed/wheelchair bound 7. Chronic opiate/narcotic dependence. 8. Anemia. PLAN supportive care monitor HH antibiotics iv daptomycin x 6 weeks for home wound management after discharge pain control- norco at home plastics- cleared ID evaluation noted and appreciated surgically cleared home health and dc today hopefully once all confirmed Home health impression, plan, and exam edited and reviewed in detail care discussed with RN Subjective Allergies: Coded Allergies: CEFTRIAXONE (Verified Allergy, Intermediate, SOB, HR-140bpm, face swollen , pt became red, 10/24/15) CODEINE (Verified Allergy, Intermediate, SWELLING, 01/03/11) LATEX (Verified Allergy, Intermediate, SWELLING, 01/03/11) PIPERACILLIN (Verified Allergy, Intermediate, Itching, 08/29/15) 08/29/15 tolerates Ceftaroline TAZOBACTAM (Verified Allergy, Intermediate, Itching, 01/29/15) POLYMYXIN B (Verified Allergy, Mild, Rash, 04/08/16) Suspected allergy reported by VANCOMYCIN (Verified Allergy, Mild, 07/15/14) ASPARAGINASE (Verified Allergy, Unknown, 01/28/14) CEFUROXIME (Unverified Allergy, Unknown, 04/19/16) IRON (Verified Allergy, Unknown, 01/28/14) LATEX, NATURAL RUBBER (Unverified Allergy, Unknown, 06/18/16) Subjective comfortable ID noted HH for antibiotics being arrange Objective Last 24 Hour Vital Signs Date Time Temp Pulse Resp B/P (MAP) Pulse Ox O2 Delivery O2 Flow Rate FiO2 12/31/16 04:00 97.7 59 20 115/67 95 Room Air 12/31/16 00:00 98.7 59 20 132/74 97 Room Air 12/30/16 20:00 98.7 76 20 129/82 98 Room Air 12/30/16 15:54 98.5 84 22 137/78 97 Room Air 12/30/16 12:11 98.7 75 20 115/62 99 Room Air 12/30/16 08:15 98.2 87 21 109/75 97 Room Air Height (Feet): 5 Height (Inches): 5.00 Weight (Pounds): 182 Objective WDWN female NAD clear breath sounds bilaterally without rhonchi or wheeze [id number] without MRG NABS nontender no HSM no CCE paraplegic nonfocal LUANN MICHEL Dec 31, 2016 08:06
[2016-12-31 08:28] VITALS: BP 103/56
[2016-12-31] MEDS: Dyna-Hex 2% Top Sol 8oz TOPIC SCH (08:50)
[2016-12-31] MEDS: Heparin 5000 units/ml inj SUBQ SCH (08:59)
[2016-12-31] MEDS ORDERED: Levofloxacin 500mg tab ORAL SCH ×2 (09:00)
[2016-12-31] MEDS ORDERED: Tubing IV Secondary IV ONE (10:44)
[2016-12-31] MEDS: DAPTOmycin 500 MG in NS 55 ML IV SCH (10:56)
[2016-12-31] MEDS ORDERED: LEVAQUIN750 MG ORAL (11:10)
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
[2016-12-31 11:38] VITALS: BP 125/67
--- NOTE | 2017-01-03 14:31 | Discharge Summary ---
Discharge Summary Hospital Course Date of Admission Dec 27, 2016 at 09:55 Date of Discharge Dec 31, 2016 at 14:00 Admitting Diagnosis HPI Ananya Guajardo is a 41 year old female who was admitted on Dec 27, 2016 at 09:55 for Osteomyellitis Hospital Course dc summary#[id number] Discharge Medications Continued Medications: DAPTOmycin (DAPTOmycin) 500 Mg Vial 500 MG IV DAILY for 40 Days, VIAL Levofloxacin* (Levaquin*) 750 Mg Tablet 750 MG ORAL DAILY for 7 Days, TAB Discharge Condition Upon Discharge: stable Discharge Disposition Patient was discharged to Home with Home Health(06) Discharge Diagnoses: Discharge Instructions Discharge Instructions Special Instructions I have been assigned to complete a D/C Summary on this account. I was not involved in the patient management Ngozi Yoo NP ([facility]) Jan 03, 2017 14:31
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
== END 2016-12-31 14:00 | disposition home health service (06) | DRG 463 ==
LOC: 3E 09:55 → 4E 10:23
DX: M86.8X8 Other osteomyelitis, other site (principal); L89.154 Pressure ulcer of sacral region, stage 4; G82.20 Paraplegia, unspecified; L89.894 Pressure ulcer of other site, stage 4; L02.415 Cutaneous abscess of right lower limb; F11.20 Opioid dependence, uncomplicated; L89.324 Pressure ulcer of left buttock, stage 4; M46.40 Discitis, unspecified, site unspecified; D64.9 Anemia, unspecified; G89.29 Other chronic pain; Z88.6 Allergy status to analgesic agent; Z88.1 Allergy status to other antibiotic agents; Z88.8 Allergy status to other drugs, medicaments and biological substances; B95.62 Methicillin resistant Staphylococcus aureus infection as the cause of diseases classified elsewhere; B95.1 Streptococcus, group B, as the cause of diseases classified elsewhere; F41.9 Anxiety disorder, unspecified; Z99.3 Dependence on wheelchair
CPT/HCPCS: 36415; 36569; 76937; 80048; 80053; 82550; 82962; 85025; 85651; 86140; 86850; 86900; 86901; 86920; 87040; 87070; 87075; 87181; 87205; 94003; 94150; J2250; J2405; J2710

== ENCOUNTER 2017-01-10 10:00 | Outpatient (RCR) | payer MEDICARE, OTHER ==
[~2017-01-10] VITALS: Ht 167.6 cm; Wt 77.1 kg
[~2017-01-10 10:00] MED LIST changes: +DAPTOMYCIN500 MG IV; +LEVAQUIN750 MG ORAL
== END 2017-02-08 | disposition home or self-care (01) ==
LOC: WCC 10:00
DX: L89.154 Pressure ulcer of sacral region, stage 4 (principal); L97.123 Non-pressure chronic ulcer of left thigh with necrosis of muscle; L97.113 Non-pressure chronic ulcer of right thigh with necrosis of muscle; L89.323 Pressure ulcer of left buttock, stage 3; L89.214 Pressure ulcer of right hip, stage 4; L02.415 Cutaneous abscess of right lower limb; E11.9 Type 2 diabetes mellitus without complications; G83.9 Paralytic syndrome, unspecified; Z88.6 Allergy status to analgesic agent
CPT/HCPCS: 11042; 11043; 11044; 11047; 97605

== ENCOUNTER 2017-02-14 10:30 | Outpatient (RCR) | payer MEDICARE, OTHER ==
--- NOTE | 2017-02-21 17:13 | Infectious Diseases Prog Note ---
Assessment/Plan Problems: (1) Candidiasis, intertrigo Assessment & Plan: of the skin folds and the wounds, suspect due to being on wide spectrum antibiotics for long time, will give diflucan for 10 days with local nystatin (2) Sacral decubitus ulcer, stage IV Assessment & Plan: with ESBL + proteus mirabilis and E coli, on ertapenem for 6 weeks , continue local wound care anf off loading. 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 (4) Abscess of hip, right Assessment & Plan: S/P I&D with culture grew MRSA, improving, S/P daptomycin for 6 weeks Subjective Constitutional: Reports: no symptoms HEENT: Reports: no symptoms Respiratory: Reports: no symptoms Breasts: Reports: no symptoms Cardiovascular: Reports: no symptoms Gastrointestinal/Abdominal: Reports: no symptoms Genitourinary: Reports: no symptoms Neurologic: Reports: no symptoms Psychiatric: Reports: no symptoms Skin: Reports: no symptoms Endocrine: Reports: no symptoms Hematologic: Reports: no symptoms Musculoskeletal: Reports: no symptoms Allergies: Coded Allergies: CEFTRIAXONE (Verified Allergy, Intermediate, SOB, HR-140bpm, face swollen , pt became red, 10/24/15) CODEINE (Verified Allergy, Intermediate, SWELLING, 01/03/11) LATEX (Verified Allergy, Intermediate, SWELLING, 01/03/11) PIPERACILLIN (Verified Allergy, Intermediate, Itching, 08/29/15) 08/29/15 tolerates Ceftaroline TAZOBACTAM (Verified Allergy, Intermediate, Itching, 01/29/15) POLYMYXIN B (Verified Allergy, Mild, Rash, 04/08/16) Suspected allergy reported by VANCOMYCIN (Verified Allergy, Mild, 07/15/14) ASPARAGINASE (Verified Allergy, Unknown, 01/28/14) CEFUROXIME (Unverified Allergy, Unknown, 04/19/16) IRON (Verified Allergy, Unknown, 01/28/14) LATEX, NATURAL RUBBER (Unverified Allergy, Unknown, 06/18/16) Objective General Appearance: WD/WN, no acute distress HEENT: normocephalic, atraumatic, anicteric, mucous membranes moist, PERRL Respiratory/Chest: chest wall non-tender, lungs clear, normal breath sounds, no respiratory distress, no accessory muscle use, decreased breath sounds Cardiovascular: normal peripheral pulses, normal rate, regular rhythm, no gallop/murmur, no JVD Abdomen: normal bowel sounds, soft, non tender, no organomegaly, non distended , no mass Extremities: no cyanosis, no clubbing Skin: no lesions, rash, ulcers - large sacral decubitus wound stage IV, B/L HIPS wounds, 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: alert, oriented x 3 Karlie Rosas M.D. Feb 21, 2017 17:13
== END 2017-03-10 | disposition home or self-care (01) ==
LOC: WCC 10:30
DX: L89.154 Pressure ulcer of sacral region, stage 4 (principal); L97.123 Non-pressure chronic ulcer of left thigh with necrosis of muscle; L97.113 Non-pressure chronic ulcer of right thigh with necrosis of muscle; L89.323 Pressure ulcer of left buttock, stage 3; L89.214 Pressure ulcer of right hip, stage 4; L02.415 Cutaneous abscess of right lower limb; E11.9 Type 2 diabetes mellitus without complications; G83.9 Paralytic syndrome, unspecified; Z88.6 Allergy status to analgesic agent
CPT/HCPCS: 11042; 11043; 11044; 11046; 11047; 97605

== ENCOUNTER 2017-03-14 10:30 | Outpatient (RCR) | payer MEDICARE, OTHER | END 2017-04-10 | disposition home or self-care (01) | LOC: WCC 10:30 | DX: L89.154 Pressure ulcer of sacral region, stage 4 (principal); L97.123 Non-pressure chronic ulcer of left thigh with necrosis of muscle; L97.113 Non-pressure chronic ulcer of right thigh with necrosis of muscle; L89.323 Pressure ulcer of left buttock, stage 3; L89.214 Pressure ulcer of right hip, stage 4; L02.415 Cutaneous abscess of right lower limb; L97.124 Non-pressure chronic ulcer of left thigh with necrosis of bone; E11.9 Type 2 diabetes mellitus without complications; G83.9 Paralytic syndrome, unspecified; Z88.6 Allergy status to analgesic agent | CPT/HCPCS: 11042; 11043; 11044; 11047; 97605 ==

== ENCOUNTER 2017-04-18 11:43 | Outpatient (RCR) | payer MEDICARE, OTHER ==
--- NOTE | 2017-05-30 13:38 | Infectious Diseases Prog Note ---
Assessment/Plan Problems: (1) Osteomyelitis Assessment & Plan: of the left femur due to MSSA and Morganella morgagnii , she developed skin reaction to zosyn with rash, and redness , will switch her antibiotics to meropenem to finish her course of treatment for 6 weeks (2) right hip wound Assessment & Plan: not draining pus with no sign of infection, grew MRSA, no treatment for now since she is always colonized with MRSA (3) Sacral decubitus ulcer, stage IV Assessment & Plan: recommend bone biopsy and culture to identify the exact organisms (4) Chronic osteomyelitis of hip Assessment & Plan: S/P iv ABX for 6 weeks, refused chronic intermediate suppression Subjective Constitutional: Reports: no symptoms HEENT: Reports: no symptoms Respiratory: Reports: no symptoms Breasts: Reports: no symptoms Cardiovascular: Reports: no symptoms Gastrointestinal/Abdominal: Reports: no symptoms Genitourinary: Reports: no symptoms Neurologic: Reports: no symptoms Psychiatric: Reports: no symptoms Skin: Reports: rash, ulcer Endocrine: Reports: no symptoms Hematologic: Reports: no symptoms Allergies: Coded Allergies: CEFTRIAXONE (Verified Allergy, Intermediate, SOB, HR-140bpm, face swollen , pt became red, 10/24/15) CODEINE (Verified Allergy, Intermediate, SWELLING, 01/03/11) LATEX (Verified Allergy, Intermediate, SWELLING, 01/03/11) PIPERACILLIN (Verified Allergy, Intermediate, Itching, 08/29/15) 08/29/15 tolerates Ceftaroline TAZOBACTAM (Verified Allergy, Intermediate, Itching, 01/29/15) POLYMYXIN B (Verified Allergy, Mild, Rash, 04/08/16) Suspected allergy reported by VANCOMYCIN (Verified Allergy, Mild, 07/15/14) ASPARAGINASE (Verified Allergy, Unknown, 01/28/14) CEFUROXIME (Unverified Allergy, Unknown, 04/19/16) IRON (Verified Allergy, Unknown, 01/28/14) LATEX, NATURAL RUBBER (Unverified Allergy, Unknown, 06/18/16) Objective General Appearance: WD/WN, no acute distress HEENT: normocephalic, atraumatic, anicteric, mucous membranes moist Respiratory/Chest: chest wall non-tender, lungs clear, normal breath sounds, no respiratory distress, no accessory muscle use Cardiovascular: normal peripheral pulses, normal rate, regular rhythm, no gallop/murmur, no JVD Abdomen: normal bowel sounds, soft, non tender, no organomegaly, non distended , no mass, no scars Extremities: no cyanosis, no clubbing Skin: rash, ulcers, other - red with erythema , and large defect on the sacrum and thigh 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: alert, oriented x 3, responsive Karlie Rosas M.D. May 30, 2017 13:38
== END 2017-05-11 | disposition home or self-care (01) ==
LOC: WCC 11:43
DX: L89.154 Pressure ulcer of sacral region, stage 4 (principal); L97.123 Non-pressure chronic ulcer of left thigh with necrosis of muscle; L97.113 Non-pressure chronic ulcer of right thigh with necrosis of muscle; L89.323 Pressure ulcer of left buttock, stage 3; L89.214 Pressure ulcer of right hip, stage 4; L02.415 Cutaneous abscess of right lower limb; L97.124 Non-pressure chronic ulcer of left thigh with necrosis of bone; Z88.6 Allergy status to analgesic agent; M86.052 Acute hematogenous osteomyelitis, left femur; G82.20 Paraplegia, unspecified
CPT/HCPCS: 11043; 11044; 11046; 11047; 20245; 87070; 87181; 87205; 97605

== ENCOUNTER 2017-05-16 10:40 | Outpatient (RCR) | payer MEDICARE, OTHER ==
[~2017-05-16] VITALS: Ht 167.6 cm; Wt 77.1 kg
--- NOTE | 2017-05-16 21:00 | Consultation ---
DATE OF CONSULTATION: 05/16/2017 INFECTIOUS DISEASE CONSULTATION REQUESTING PHYSICIAN: Keegan Cristobal M.D. REASON FOR CONSULTATION: Left thigh chronic nonhealing wound with underlying acute osteomyelitis on top of chronic due to Morganella Morgagni multi-drug resistant organism and Staph aureus methicillin sensitive. Recommendation for antibiotics treatment and further management. HISTORY OF PRESENT ILLNESS: The patient is a 42-year-old female with history of chronic osteomyelitis of both hip joints and phlegmon bubble of the right hip status post recent surgical drainage and debridement in 12/2016, severe chronic bilateral sacral decubitus wound with destruction of the lower sacrum, and portion of the pubis and both hips due to chronic osteomyelitis who has been followed by the wound care team on a daily basis for her left leg wound infection, which has not been healing well as per the wound care surgical team report. The patient developed wound acouple of months ago and it has been getting bigger in spite of regular local care. The patient finally had a bone biopsy of the left femur and pathology result showed evidence of acute and chronic inflammation in the bone fragments with area of necrosis suggestive of acute on chronic osteomyelitis. Her culture from the bone, which was taken from the left femur grew Morganella Morgagni specie and methicillin sensitive Staph aureus. So, Infectious Disease consultation was requested for antibiotics treatment and further management. The patient denied any left thigh pain, numbness or swelling. No fever or chills. No cough or shortness of breath. No nausea, vomiting, or diarrhea. 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 PAST SURGICAL HISTORY: She had left lower quadrant colostomy and left hip phlegmon incision and debridement. ALLERGIES: She has multiple allergies listed in her profile including ceftriaxone, cephalexin, codeine, iron, Latex, natural rubber and polymyxin with vancomycin. She also allergic to Zosyn, but she denied any clear allergy to penicillin so far and never had penicillin recently, but she was told as a child that she had a rash reaction to penicillin before, which she is not clear about. SOCIAL HISTORY: She lives at home with family. Denied using any drugs, tobacco, or alcohol. FAMILY HISTORY: Not contributory. REVIEW OF SYSTEMS: A 14-point of systems reviewed were all negative apart from the one I mentioned above in my History and Physical. PHYSICAL EXAMINATION: GENERAL: She is a young female, paraplegic, lying in bed, awake, alert, oriented, not in acute distress. VITAL SIGNS: Reviewed and stable. HEENT: Normocephalic and atraumatic. Pupils both reactive to light. Moist oral mucosa. No exudate. NECK: Supple. No lymphadenopathy. CARDIOVASCULAR: Regular rate and rhythm. No murmur or gallop. LUNG: Clear bilaterally. No wheezing or rhonchi. Diminished breathing sounds at the bases. ABDOMEN: Soft, nontender, and nondistended. Positive bowel sounds. No hepatosplenomegaly or ascites. EXTREMITY: She had a left thigh posterior large wound 9 x 5 x 4 centimeter almost with good granulation tissue. Skin intact at the borders. She also had right thigh wound smaller than the left one and more superficial with no pus or drainage coming out of it. The patient also has multiple sacral wounds. LABORATORY AND DIAGNOSTIC DATA: Labs nothing recent done. Imaging, no imaging done at this visit. ASSESSMENT AND RECOMMENDATION: 1. Left femur acute osteomyelitis on top of chronic osteomyelitis due to Morganella morganii and Staphylococcus aureus methicillin sensitive. We will treat the patient with Zosyn to cover both organisms. The patient denied any significant allergy to Zosyn and never had any recent penicillin antibiotics or significant reaction. This was clarified with the patient herself who denied any significant allergy. We will attempt to treat with Zosyn and monitor her laboratory weekly. She will need weeks of IV antibiotics therapy with close follow up with wound care team. The patient also will require PICC line for long-term antibiotic treatment. 2. Bilateral posterior thigh chronic wounds. Continue local wound care as per wound care team. Continue antibiotics treatment as needed and keep offloading. 3. Chronic bilateral hip osteomyelitis with bone destruction of the sacrum and coccyx. The patient is a poor surgical candidate and she has refused long-term suppression antibiotics therapy in the past. She may benefit from the articulation in the future if she continues to have chronic destructive osteo. All questions were answered to the patient and the nursing staff at the time of this consultation and the patient agreed to proceed with Zosyn for now and continuous wound care as needed. Thank you for the consultation. Please feel free to call with any question. Karlie Rosas M.D. DR: SILKE JOB#: [id number] CC: MADI
== END 2017-06-08 | disposition home or self-care (01) ==
LOC: WCC 10:40
DX: L89.154 Pressure ulcer of sacral region, stage 4 (principal); L97.123 Non-pressure chronic ulcer of left thigh with necrosis of muscle; L97.113 Non-pressure chronic ulcer of right thigh with necrosis of muscle; L89.323 Pressure ulcer of left buttock, stage 3; L89.214 Pressure ulcer of right hip, stage 4; L02.415 Cutaneous abscess of right lower limb; L97.124 Non-pressure chronic ulcer of left thigh with necrosis of bone; L97.114 Non-pressure chronic ulcer of right thigh with necrosis of bone; M86.052 Acute hematogenous osteomyelitis, left femur; E11.9 Type 2 diabetes mellitus without complications; G83.9 Paralytic syndrome, unspecified; Z88.6 Allergy status to analgesic agent; Z88.8 Allergy status to other drugs, medicaments and biological substances
CPT/HCPCS: 11042; 11043; 11044; 11046; 11047; 87070; 87181; 87205; 97605

== ENCOUNTER 2017-05-18 11:26 | Outpatient (CLI) | payer MEDICARE, OTHER ==
[~2017-05-18] VITALS: Ht 30.5 cm; Wt 0.5 kg
[~2017-05-18 11:26] MED LIST changes: +Heparin 2000 units/Ns 1000ml INJ ONE; +Lidocaine 1% Plain 30 ml INJ ONE
--- NOTE | 2017-05-18 11:42 | Pre-Procedure Note/Attestation ---
Pre-Procedure Note/Attestation Complete Prior to Procedure Planned Procedure: not applicable Procedure Narrative: PICC Indications for Procedure Pre-Operative Diagnosis: needs IV access Attestation I attest that I discussed the nature of the procedure; its benefits; risks and complications; and alternatives (and the risks and benefits of such alternatives ), prior to the procedure, with the patient (or the patient's legal primary care sales representative). I attest that, if there was a reasonable possibility of needing a blood transfusion, the patient (or the patient's legal primary care sales representative) was given the [facility] standardized written summary, pursuant to the Wally Tami Blood Safety Act ([place] Health and Safety Code # 1645, as amended). I attest that I re-evaluated the patient just prior to the surgery and that there has been no change in the patient's H&P, except as documented below: XANDER NOLAN M.D. May 18, 2017 11:42
[2017-05-18 12:15] LABS: BASOPHILS % (AUTO) 0.3 % (0.0-2.0); EOSINOPHILS % (AUTO) 3.5 % (0.0-3.0); HEMATOCRIT 30.2 % (37.0-47.0); HEMOGLOBIN 9.3 G/DL (12.0-16.0); LYMPHOCYTES % (AUTO) 26.3 % (20.0-45.0); MEAN CORPUSCULAR VOLUME 79 FL (80-99); MONOCYTES % (AUTO) 3.9 % (1.0-10.0); PLATELET COUNT 378 K/UL (150-450); RED BLOOD COUNT 3.83 M/UL (4.20-5.40); RED CELL DISTRIBUTION WIDTH 14.6 % (11.6-14.8); WHITE BLOOD COUNT 7.6 K/UL (4.8-10.8)
[2017-05-18 12:38] LABS: ALANINE AMINOTRANSFERASE 9 U/L (12-78); ALBUMIN 2.2 G/DL (3.4-5.0); ALBUMIN/GLOBULIN RATIO 0.4 (1.0-2.7); ALKALINE PHOSPHATASE 151 U/L (46-116); ANION GAP 10 mmol/L (5-15); ASPARTATE AMINO TRANSFERASE 8 U/L (15-37); BILIRUBIN,TOTAL 0.2 MG/DL (0.2-1.0); BLOOD UREA NITROGEN 11 mg/dL (7-18); CALCIUM 8.6 MG/DL (8.5-10.1); CARBON DIOXIDE 24 MMOL/L (21-32); CHLORIDE 101 MMOL/L (98-107); CREATININE 0.7 MG/DL (0.55-1.30); POTASSIUM 4.2 MMOL/L (3.5-5.1); SODIUM 135 MMOL/L (136-145)
--- NOTE | 2017-05-18 12:45 | Diagnostic Imaging Report ---
Indications: Needs long-term IV access Technique: Ultrasound confirms patent compressible right basilic vein. Total sterile technique, including sterile probe cover and sterile gel, hat, mask,, sterile gown, large sterile drape, and preparation with 2% chlorhexidine utilized. Local anesthesia with 1% lidocaine. Under real-time ultrasound guidance, puncture right basilic vein using 21-gauge needle, documented and archived, passage 0.018 guidewire under direct fluoroscopy, which was used to determine appropriate catheter length, exchange for 5 Tunisian peel-away sheath. 5 Tunisian Bard dual-lumen power PICC cut to 46 cm. It was inserted through the peel-away sheath. Peel-away sheath and guidewire removed. Catheter fixed to the skin. Both catheter ports aspirated and flushed. Patient tolerated procedure well, without immediate complication. Digital radiograph documents satisfactory catheter tip position, at the cavoatrial junction. Total fluoroscopy time 0.6 minutes. Total dose area product 10 dGycm2 Impression: Successful placement of right arm PICC under sonographic and fluoroscopic guidance, as described above.
== END 2017-05-18 13:26 | disposition home or self-care (01) ==
LOC: RAD 11:26
DX: M86.9 Osteomyelitis, unspecified (principal); Z79.899 Other long term (current) drug therapy
CPT/HCPCS: 36415; 36569; 76937; 80053; 85025; J1644; J2001; 87070; 87205

== ENCOUNTER 2017-06-13 10:53 | Outpatient (RCR) | payer MEDICARE, OTHER ==
[~2017-06-13 10:53] MED LIST changes: -Heparin 2000 units/Ns 1000ml INJ ONE; -Lidocaine 1% Plain 30 ml INJ ONE
[2017-07-10] MEDS ORDERED: CYCLOBENZAPRINE10 MG ORAL (16:03)
[2017-07-10] MEDS ORDERED: ALBUTEROL SULF8.5 GM INH (16:03)
[2017-07-10] MEDS ORDERED: DAPTOMYCIN500 MG IV (16:04)
[2017-07-10] MEDS ORDERED: LEXAPRO10 MG ORAL (16:04)
[2017-07-10] MEDS ORDERED: FLUCONAZOLE100 MG IV ×2 (16:05→16:10)
[2017-07-10] MEDS ORDERED: DILAUDID 22 MG/1 M1 IV (16:06)
[2017-07-10] MEDS ORDERED: MINOCIN100 MG PO (16:07)
[2017-07-10] MEDS ORDERED: METRONIDAZOLE500 MG ORAL (16:07)
[2017-07-10] MEDS ORDERED: ZOFRAN 4 MG4 MG/2 ML IV (16:07)
[2017-07-10] MEDS ORDERED: PROTONIX40 MG ORAL (16:07)
[2017-07-10] MEDS ORDERED: LEVAQUIN500 MG IV (16:08)
== END 2017-07-09 | disposition home or self-care (01) ==
LOC: WCC 10:53
DX: L89.154 Pressure ulcer of sacral region, stage 4 (principal); L97.123 Non-pressure chronic ulcer of left thigh with necrosis of muscle; L97.113 Non-pressure chronic ulcer of right thigh with necrosis of muscle; L89.323 Pressure ulcer of left buttock, stage 3; L89.214 Pressure ulcer of right hip, stage 4; M86.052 Acute hematogenous osteomyelitis, left femur; M46.28 Osteomyelitis of vertebra, sacral and sacrococcygeal region; F41.9 Anxiety disorder, unspecified; E11.9 Type 2 diabetes mellitus without complications; Z87.891 Personal history of nicotine dependence; Z88.6 Allergy status to analgesic agent; M62.830 Muscle spasm of back
CPT/HCPCS: 11042; 11043; 11044; 11046; 11047; 97605

== ENCOUNTER 2017-06-27 12:25 | Inpatient (IN) | payer MEDICARE, OTHER ==
[~2017-06-27] VITALS: Ht 165.1 cm; Wt 101.6 kg
[2017-06-27] VITALS (8 sets, daily range): BP systolic 68–104; BP diastolic 36–56
[2017-06-27] MEDS ORDERED: HYDROmorphone 1mg/ml Carpuject IVP ONE (13:15)
[2017-06-27] MEDS ORDERED: LR 1000ml 1,000 ML IV SCH (13:15)
--- NOTE | 2017-06-27 13:27 | Emergency Room Report ---
History of Present Illness General Chief Complaint: General Complaint Source: Patient Present Illness HPI Patient is a 42-year-old female who presented after increased difficulty breathing and generalized weakness. Patient had reportedly been vomiting multiple times. She had prior history of chronic pain from a infection. Patient stated that she been vomiting multiple times. Patient feeling dizzy and lightheaded. The patient had been treated by Dr. Glover. Allergies: Coded Allergies: CEFTRIAXONE (Verified Allergy, Intermediate, SOB, HR-140bpm, face swollen , pt became red, 10/24/15) CODEINE (Verified Allergy, Intermediate, SWELLING, 01/03/11) LATEX (Verified Allergy, Intermediate, SWELLING, 01/03/11) PIPERACILLIN (Verified Allergy, Intermediate, Itching, 08/29/15) 08/29/15 tolerates Ceftaroline TAZOBACTAM (Verified Allergy, Intermediate, Itching, 01/29/15) POLYMYXIN B (Verified Allergy, Mild, Rash, 04/08/16) Suspected allergy reported by MD VANCOMYCIN (Verified Allergy, Mild, 07/15/14) ASPARAGINASE (Verified Allergy, Unknown, 01/28/14) CEFUROXIME (Unverified Allergy, Unknown, 04/19/16) IRON (Verified Allergy, Unknown, 01/28/14) LATEX, NATURAL RUBBER (Unverified Allergy, Unknown, 06/18/16) Patient History Past Medical History: see triage record Reviewed Nursing Documentation: PMH: Agreed, PSxH: Agreed Nursing Documentation-PMH Hx Cardiac Problems: No Hx Hypertension: No Hx Pacemaker: No Hx Asthma: Yes Hx COPD: No Hx Diabetes: No Hx Cancer: No Hx Gastrointestinal Problems: Yes Hx Neurological Problems: No Hx Cerebrovascular Accident: No Hx Seizures: No 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 Hx Weakness: Yes Hx Fatigue: Yes Review of Systems All Other Systems: negative except mentioned in HPI Physical Exam Vital Signs Date Time Temp Pulse Resp B/P (MAP) Pulse Ox O2 Delivery O2 Flow Rate FiO2 06/27/17 12:47 99.1 146 20 70/46 99 Room Air 99.1 Sp02 EP Interpretation: reviewed, normal General Appearance: normal inspection, alert, GCS 15, moderate distress, Chronically Ill Head: atraumatic ENT: normal ENT inspection, hearing grossly normal, normal voice Neck: normal inspection, full range of motion, supple, no bony tend Respiratory: normal inspection, no respiratory distress, no retraction, no wheezing Cardiovascular #1: regular rate, rhythm, edema Gastrointestinal: normal inspection, normal bowel sounds, non tender, soft, no guarding, no hernia Genitourinary: no CVA tenderness Musculoskeletal: back normal, decreased range of motion Neurologic: normal inspection, alert, oriented x3, responsive, speech normal Psychiatric: normal inspection, judgement/insight normal, mood/affect normal Skin: pallor Medical Decision Making Diagnostic Impression: Primary Impression: Chronic osteomyelitis of hip Additional Impressions: Severe anemia Hypotension ER Course Patient presented for abdominal pain. Differential diagnoses included ischemic bowel, appendicitis, perforated viscus, abdominal aortic aneurysm, inferior myocardial infarction, viral gastroenteritis, opiate withdrawal among others. Patient was noted to have hypotension. She started on IV fluids. She is given pain medications.Patient started on IV fluids. Patient was noted to be somewhat tachycardic as well as hypotensive was is likely due to hypovolemic shock due to vomitingThe patient typed and crossed for blood due to severe anemia. Dr. Thanh Glover was contacted for inpatient management. Labs Test 06/27/17 13:35 White Blood Count 16.5 K/UL (4.8-10.8) Red Blood Count 2.38 M/UL (4.20-5.40) Hemoglobin 5.7 G/DL (12.0-16.0) Hematocrit 18.5 % (37.0-47.0) Mean Corpuscular Volume 78 FL (80-99) Mean Corpuscular Hemoglobin 24.2 PG (27.0-31.0) Mean Corpuscular Hemoglobin Concent 31.1 G/DL (32.0-36.0) Red Cell Distribution Width 15.7 % (11.6-14.8) Platelet Count 326 K/UL (150-450) Mean Platelet Volume 6.8 FL (6.5-10.1) Neutrophils (%) (Auto) % (45.0-75.0) Lymphocytes (%) (Auto) % (20.0-45.0) Monocytes (%) (Auto) % (1.0-10.0) Eosinophils (%) (Auto) % (0.0-3.0) Basophils (%) (Auto) % (0.0-2.0) Differential Total Cells Counted 100 Neutrophils % (Manual) 87 % (45-75) Lymphocytes % (Manual) 3 % (20-45) Monocytes % (Manual) 3 % (1-10) Eosinophils % (Manual) 0 % (0-3) Basophils % (Manual) 0 % (0-2) Band Neutrophils 7 % (0-8) Platelet Estimate Adequate Platelet Morphology Normal Hypochromasia 2+ Anisocytosis 1+ Microcytosis 1+ Sodium Level 138 MMOL/L (136-145) Potassium Level 3.1 MMOL/L (3.5-5.1) Chloride Level 109 MMOL/L (98-107) Carbon Dioxide Level 13 MMOL/L (21-32) Anion Gap 16 mmol/L (5-15) Blood Urea Nitrogen 19 mg/dL (7-18) Creatinine 1.4 MG/DL (0.55-1.30) Estimat Glomerular Filtration Rate 49.6 mL/min (>60) Glucose Level 178 MG/DL (74-106) Calcium Level 5.6 MG/DL (8.5-10.1) Total Bilirubin 1.8 MG/DL (0.2-1.0) Direct Bilirubin 1.1 MG/DL (0.0-0.3) Aspartate Amino Transf (AST/SGOT) 8 U/L (15-37) Alanine Aminotransferase (ALT/SGPT) 9 U/L (12-78) Alkaline Phosphatase 193 U/L (46-116) Total Protein 5.2 G/DL (6.4-8.2) Albumin 1.0 G/DL (3.4-5.0) Globulin 4.2 g/dL Albumin/Globulin Ratio 0.2 (1.0-2.7) Lipase 25 U/L (73-393) Last Vital Signs Date Time Temp Pulse Resp B/P (MAP) Pulse Ox O2 Delivery O2 Flow Rate FiO2 06/27/17 12:47 99.1 146 20 70/46 99 Room Air 99.1 Status: unchanged Disposition: ADMITTED INPATIENT Condition: Walter Pang Jun 27, 2017 13:27
[2017-06-27 13:52] LABS: HEMATOCRIT 18.5 % (37.0-47.0); HEMOGLOBIN 5.7 G/DL (12.0-16.0); MEAN CORPUSCULAR VOLUME 78 FL (80-99); PLATELET COUNT 326 K/UL (150-450); RED BLOOD COUNT 2.38 M/UL (4.20-5.40); RED CELL DISTRIBUTION WIDTH 15.7 % (11.6-14.8); WHITE BLOOD COUNT 16.5 K/UL (4.8-10.8)
[2017-06-27 14:29] LABS: ALANINE AMINOTRANSFERASE 9 U/L (12-78); ALBUMIN/GLOBULIN RATIO 0.2 (1.0-2.7); ALKALINE PHOSPHATASE 193 U/L (46-116); ANION GAP 16 mmol/L (5-15); ASPARTATE AMINO TRANSFERASE 8 U/L (15-37); BILIRUBIN,TOTAL 1.8 MG/DL (0.2-1.0); BLOOD UREA NITROGEN 19 mg/dL (7-18); CARBON DIOXIDE 13 MMOL/L (21-32); CHLORIDE 109 MMOL/L (98-107); CREATININE 1.4 MG/DL (0.55-1.30); POTASSIUM 3.1 MMOL/L (3.5-5.1); SODIUM 138 MMOL/L (136-145)
[2017-06-27 14:30] LABS: CALCIUM 5.6 MG/DL (8.5-10.1)
[2017-06-27 14:31] LABS: BILIRUBIN,DIRECT 1.1 MG/DL (0.0-0.3)
[2017-06-27] MEDS ORDERED: Albuterol/Ipratropium 3ml neb HHN ONE (15:45)
--- NOTE | 2017-06-27 20:09 | History & Physical ---
History and Physical History & Physicial 42-year-old female with history of chronic osteomyelitis of both hip joints and phlegmon bubble of the right hip status post recent surgical drainage and debridement in 12/2016, severe chronic bilateral sacral decubitus wound with destruction of the lower sacrum, and portion of the pubis and both hips due to chronic osteomyelitis who has been followed by the wound care team on a daily basis for her left leg wound infection. The patient was noted to have vomiting and a very low hemoglobin and now admitted. Patient also with leukocytosis. The patient has history of left thigh chronic nonhealing wound with underlying acute osteomyelitis on top of chronic due to Morganella Morgagni multi-drug resistant organism and Staph aureus methicillin sensitive.The patient has had prior bone biopsy with evidence of acute on chronic osteomyelitis. patient has managed as an outpatient for several months but previously had a fairly stormy hospital course. presently, she denies any melena or hematochezia. she has not followed up in the office for several months since I last cared for her with the exception of pain medications refills. The patient denied fever or chills. No cough or shortness of breath. PAST MEDICAL HISTORY: chronic hip joint osteomyelitis, right hip phlegmon status post incision and drainage, severe chronic bilateral sacral decubitus wound, destruction of the lower sacrum, coccyx and portion of the pubis and both hips left lower quadrant colostomy status post colectomy with large parastomal hernia. paraplegia PAST SURGICAL HISTORY: as above ALLERGIES and MEDS reviewed and reconciled SOCIAL HISTORY: She lives at home with family. Denied using any drugs, tobacco, or alcohol. has caregivers FAMILY HISTORY: Not contributory. REVIEW OF SYSTEMS: A 14-point of systems reviewed and are otherwise as above PHYSICAL EXAMINATION: GENERAL: female, paraplegic, lying in bed, awake, alert, NAD VITAL SIGNS: Reviewed and stable. HEENT: Normocephalic and atraumatic. Moist oral mucosa. No exudate. NECK: Supple. No lymphadenopathy. CARDIOVASCULAR: Regular rate and rhythm. No murmur or gallop. LUNG: Clear bilaterally. No wheezing or rhonchi. Diminished breathing sounds at the bases. ABDOMEN: Soft, nontender, and nondistended. Positive bowel sounds. obese EXTREMITY: left thigh posterior large wound; right thigh wound smaller than the left one and more superficial and multiple sacral wound NEURO; paraplegic; alert and oriented x 3 LABORATORY AND DIAGNOSTIC DATA: Labs Test 06/27/17 13:35 White Blood Count 16.5 K/UL (4.8-10.8) Red Blood Count 2.38 M/UL (4.20-5.40) Hemoglobin 5.7 G/DL (12.0-16.0) Hematocrit 18.5 % (37.0-47.0) Mean Corpuscular Volume 78 FL (80-99) Mean Corpuscular Hemoglobin 24.2 PG (27.0-31.0) Mean Corpuscular Hemoglobin Concent 31.1 G/DL (32.0-36.0) Red Cell Distribution Width 15.7 % (11.6-14.8) Platelet Count 326 K/UL (150-450) Mean Platelet Volume 6.8 FL (6.5-10.1) Neutrophils (%) (Auto) % (45.0-75.0) Lymphocytes (%) (Auto) % (20.0-45.0) Monocytes (%) (Auto) % (1.0-10.0) Eosinophils (%) (Auto) % (0.0-3.0) Basophils (%) (Auto) % (0.0-2.0) Differential Total Cells Counted 100 Neutrophils % (Manual) 87 % (45-75) Lymphocytes % (Manual) 3 % (20-45) Monocytes % (Manual) 3 % (1-10) Eosinophils % (Manual) 0 % (0-3) Basophils % (Manual) 0 % (0-2) Band Neutrophils 7 % (0-8) Platelet Estimate Adequate Platelet Morphology Normal Hypochromasia 2+ Anisocytosis 1+ Microcytosis 1+ Sodium Level 138 MMOL/L (136-145) Potassium Level 3.1 MMOL/L (3.5-5.1) Chloride Level 109 MMOL/L (98-107) Carbon Dioxide Level 13 MMOL/L (21-32) Anion Gap 16 mmol/L (5-15) Blood Urea Nitrogen 19 mg/dL (7-18) Creatinine 1.4 MG/DL (0.55-1.30) Estimat Glomerular Filtration Rate 49.6 mL/min (>60) Glucose Level 178 MG/DL (74-106) Calcium Level 5.6 MG/DL (8.5-10.1) Total Bilirubin 1.8 MG/DL (0.2-1.0) Direct Bilirubin 1.1 MG/DL (0.0-0.3) Aspartate Amino Transf (AST/SGOT) 8 U/L (15-37) Alanine Aminotransferase (ALT/SGPT) 9 U/L (12-78) Alkaline Phosphatase 193 U/L (46-116) Total Protein 5.2 G/DL (6.4-8.2) Albumin 1.0 G/DL (3.4-5.0) Globulin 4.2 g/dL Albumin/Globulin Ratio 0.2 (1.0-2.7) Lipase 25 U/L (73-393) ASSESSMENT AND RECOMMENDATION: 1. Left femur osteomyelitis per history 2. Bilateral posterior thigh chronic wounds. 3. Chronic bilateral hip osteomyelitis 4. anemia 5. possible gib 6. severe protein calorie malnutrition 7. chronic pain syndrome 8. transaminitis PLAN transfuse hydrate monitor LFT and HH gi evaluation empiric antibiotics wound care plastics pain control impression, plan, and exam edited and reviewed in detail care discussed with LUANN TORRES Jun 27, 2017 20:09
[2017-06-27] MEDS ORDERED: Calcium Gluconate 10% 2 GM in NS 110 ML IVPB ONE (20:30)
[2017-06-27] MEDS ORDERED: Calcium Gluconate 1gm/10ml vial ONE ×2 (21:03→21:04)
[2017-06-28] MEDS ORDERED: Zolpidem 5mg tab ORAL PRN
[2017-06-28] MEDS ORDERED: Tigecycline 50 MG in D5W 110 ML IVPB SCH ×2 (00:30→21:00)
[2017-06-28 04:00] VITALS: BP 104/56
[2017-06-28] MEDS: HYDROmorphone 1mg/ml Carpuject IVP PRN ×4 (06:46→21:19)
--- NOTE | 2017-06-28 08:14 | General Progress Note ---
Assessment/Plan Assessment/Plan ASSESSMENT AND RECOMMENDATION: 1. Left femur osteomyelitis per history 2. Bilateral posterior thigh chronic wounds. 3. Chronic bilateral hip osteomyelitis 4. anemia 5. possible gib 6. severe protein calorie malnutrition 7. chronic pain syndrome 8. transaminitis 9. sinus tachycardia 10. fevers PLAN transfused; follow up results monitor LFT and HH gi evaluation pending empiric antibiotics wound care plastics ID evaluation called concern of low albumin pain control impression, plan, and exam edited and reviewed in detail care discussed with RN Subjective Allergies: Coded Allergies: CEFTRIAXONE (Verified Allergy, Intermediate, SOB, HR-140bpm, face swollen , pt became red, 10/24/15) CODEINE (Verified Allergy, Intermediate, SWELLING, 01/03/11) LATEX (Verified Allergy, Intermediate, SWELLING, 01/03/11) PIPERACILLIN (Verified Allergy, Intermediate, Itching, 08/29/15) 08/29/15 tolerates Ceftaroline TAZOBACTAM (Verified Allergy, Intermediate, Itching, 01/29/15) POLYMYXIN B (Verified Allergy, Mild, Rash, 04/08/16) Suspected allergy reported by VANCOMYCIN (Verified Allergy, Mild, 07/15/14) ASPARAGINASE (Verified Allergy, Unknown, 01/28/14) CEFUROXIME (Unverified Allergy, Unknown, 04/19/16) IRON (Verified Allergy, Unknown, 01/28/14) LATEX, NATURAL RUBBER (Unverified Allergy, Unknown, 06/18/16) Subjective events noted s/p transfusion Objective Last 24 Hour Vital Signs Date Time Temp Pulse Resp B/P (MAP) Pulse Ox O2 Delivery O2 Flow Rate FiO2 06/28/17 06:46 99.9 06/28/17 04:00 99.9 20 104/56 98 Room Air 99.9 06/28/17 04:00 128 06/28/17 00:00 122 06/27/17 21:28 98.9 128 25 91/46 99 Nasal Cannula 2.0 98.9 06/27/17 21:27 117 25 102/48 100 Room Air 06/27/17 19:57 98.8 119 21 98.8 06/27/17 19:42 98.9 118 25 98.9 06/27/17 19:00 98.8 118 20 98.8 06/27/17 18:45 128 17 85/41 99 Nasal Cannula 06/27/17 17:26 99.7 06/27/17 17:20 99.7 135 20 99.7 06/27/17 17:20 99.7 135 20 75/48 100 Nasal Cannula 2.0 99.7 06/27/17 17:05 99.1 138 24 99.1 06/27/17 16:27 100.4 06/27/17 16:19 100.4 140 18 78/44 100 Nasal Cannula 2.0 100.4 06/27/17 16:02 135 25 100 Nasal Cannula 2.0 06/27/17 15:52 136 23 100 Nasal Cannula 2.0 06/27/17 15:50 136 23 Nasal Cannula 2.0 06/27/17 15:19 100.0 142 24 101/56 99 Room Air 100.0 06/27/17 15:00 133 27 81/36 100 Nasal Cannula 2.0 06/27/17 12:57 100.6 145 25 68/48 93 Room Air 100.6 06/27/17 12:47 99.1 146 20 70/46 99 Room Air 99.1 Intake and Output 06/27/17 06/28/17 19:00 07:00 Intake Total 250 ml 400 ml Output Total 0 ml Balance 250 ml 400 ml Intake Oral 0 ml 400 ml Blood Product 250 ml Output Urine Total 0 ml Laboratory Tests 06/27/17 13:35: White Blood Count 16.5H, Red Blood Count 2.38L, Hemoglobin 5.7*L, Hematocrit 18.5L, Mean Corpuscular Volume 78L, Mean Corpuscular Hemoglobin 24.2L, Mean Corpuscular Hemoglobin Concent 31.1L, Red Cell Distribution Width 15.7H, Platelet Count 326, Mean Platelet Volume 6.8, Neutrophils (%) (Auto) , Lymphocytes (%) (Auto) , Monocytes (%) (Auto) , Eosinophils (%) (Auto) , Basophils (%) (Auto) , Differential Total Cells Counted 100, Neutrophils % ( Manual) 87H, Lymphocytes % (Manual) 3L, Monocytes % (Manual) 3, Eosinophils % ( Manual) 0, Basophils % (Manual) 0, Band Neutrophils 7, Platelet Estimate Adequate, Platelet Morphology Normal, Hypochromasia 2+, Anisocytosis 1+, Microcytosis 1+, Sodium Level 138, Potassium Level 3.1L, Chloride Level 109H, Carbon Dioxide Level 13L, Anion Gap 16H, Blood Urea Nitrogen 19H, Creatinine 1.4H, Estimat Glomerular Filtration Rate 49.6, Glucose Level 178H, Calcium Level 5.6*L, Total Bilirubin 1.8H, Direct Bilirubin 1.1H, Aspartate Amino Transf (AST/SGOT) 8L, Alanine Aminotransferase (ALT/SGPT) 9L, Alkaline Phosphatase 193H, Total Protein 5.2L, Albumin 1.0L, Globulin 4.2, Albumin/ Globulin Ratio 0.2L, Lipase 25L Height (Feet): 5 Height (Inches): 5.00 Weight (Pounds): 198 Objective WDWN NAD clear breath sounds bilaterally without rhonchi or wheeze [id number] tachy without MRG NABS nontender obese no CC some edema paraplegic wounds noted LUANN MICHEL Jun 28, 2017 08:14
[2017-06-28 08:42] VITALS: BP 118/66
[2017-06-28] MEDS ORDERED: [UNRECOGNIZED DRUG - OTHER] IVPB ONE ×2 (09:00)
[2017-06-28 09:43] LABS: HEMATOCRIT 29.1 % (37.0-47.0); HEMOGLOBIN 9.9 G/DL (12.0-16.0); MEAN CORPUSCULAR VOLUME 78 FL (80-99); PLATELET COUNT 344 K/UL (150-450); RED BLOOD COUNT 3.72 M/UL (4.20-5.40); RED CELL DISTRIBUTION WIDTH 15.4 % (11.6-14.8); WHITE BLOOD COUNT 15.2 K/UL (4.8-10.8)
[2017-06-28] MEDS ORDERED: Albuterol 90mcg Inhaler 8gm INH PRN (10:45)
[2017-06-28 12:16] VITALS: BP 97/54
--- NOTE | 2017-06-28 15:29 | General Progress Note ---
Assessment/Plan Assessment/Plan Assessment - Severe anemia - prior negative EGD and Colonoscopy - abnormal LFT - ? etiology - Chronic wounds Recommendations - check Fe Panel - Check stool OB - follow CBC - Check hep serologies Subjective Allergies: Coded Allergies: CEFTRIAXONE (Verified Allergy, Intermediate, SOB, HR-140bpm, face swollen , pt became red, 10/24/15) CODEINE (Verified Allergy, Intermediate, SWELLING, 01/03/11) LATEX (Verified Allergy, Intermediate, SWELLING, 01/03/11) PIPERACILLIN (Verified Allergy, Intermediate, Itching, 08/29/15) 08/29/15 tolerates Ceftaroline TAZOBACTAM (Verified Allergy, Intermediate, Itching, 01/29/15) POLYMYXIN B (Verified Allergy, Mild, Rash, 04/08/16) Suspected allergy reported by VANCOMYCIN (Verified Allergy, Mild, 07/15/14) ASPARAGINASE (Verified Allergy, Unknown, 01/28/14) CEFUROXIME (Unverified Allergy, Unknown, 04/19/16) IRON (Verified Allergy, Unknown, 01/28/14) LATEX, NATURAL RUBBER (Unverified Allergy, Unknown, 06/18/16) Objective Last 24 Hour Vital Signs Date Time Temp Pulse Resp B/P (MAP) Pulse Ox O2 Delivery O2 Flow Rate FiO2 06/28/17 14:57 116 18 95 Room Air 21 06/28/17 14:55 116 18 Room Air 21 06/28/17 14:55 116 18 95 Room Air 21 06/28/17 12:16 99.5 120 20 97/54 98 Room Air 99.5 06/28/17 11:24 99.5 06/28/17 10:54 99.5 06/28/17 08:42 99.5 116 20 118/66 98 Room Air 99.5 06/28/17 07:36 115 06/28/17 06:46 99.9 06/28/17 04:00 99.9 20 104/56 98 Room Air 99.9 06/28/17 04:00 128 06/28/17 00:00 122 06/27/17 21:28 98.9 128 25 91/46 99 Nasal Cannula 2.0 98.9 06/27/17 21:27 117 25 102/48 100 Room Air 06/27/17 19:57 98.8 119 21 98.8 06/27/17 19:42 98.9 118 25 98.9 06/27/17 19:00 98.8 118 20 98.8 06/27/17 18:45 128 17 85/41 99 Nasal Cannula 06/27/17 17:26 99.7 06/27/17 17:20 99.7 135 20 99.7 06/27/17 17:20 99.7 135 20 75/48 100 Nasal Cannula 2.0 99.7 06/27/17 17:05 99.1 138 24 99.1 06/27/17 16:27 100.4 06/27/17 16:19 100.4 140 18 78/44 100 Nasal Cannula 2.0 100.4 06/27/17 16:02 135 25 100 Nasal Cannula 2.0 06/27/17 15:52 136 23 100 Nasal Cannula 2.0 06/27/17 15:50 136 23 Nasal Cannula 2.0 Intake and Output 06/27/17 06/28/17 19:00 07:00 Intake Total 250 ml 500 ml Output Total 0 ml Balance 250 ml 500 ml Intake Oral 0 ml 400 ml IV Total 100 ml Blood Product 250 ml Output Urine Total 0 ml Laboratory Tests 06/28/17 09:30: White Blood Count 15.2H, Red Blood Count 3.72L, Hemoglobin 9.9#L, Hematocrit 29.1#L, Mean Corpuscular Volume 78L, Mean Corpuscular Hemoglobin 26.7L, Mean Corpuscular Hemoglobin Concent 34.0, Red Cell Distribution Width 15.4H, Platelet Count 344, Mean Platelet Volume 6.7, Neutrophils (%) (Auto) , Lymphocytes (%) (Auto) , Monocytes (%) (Auto) , Eosinophils (%) (Auto) , Basophils (%) (Auto) , Differential Total Cells Counted 100, Neutrophils % ( Manual) 82H, Lymphocytes % (Manual) 9L, Monocytes % (Manual) 3, Eosinophils % ( Manual) 0, Basophils % (Manual) 0, Band Neutrophils 6, Platelet Estimate Adequate, Platelet Morphology Normal, Anisocytosis 1+, Pro-B-Type Natriuretic Peptide 578H Height (Feet): 5 Height (Inches): 5.00 Weight (Pounds): 198 JOSE LPITER TRENT Jun 28, 2017 15:29
--- NOTE | 2017-06-28 17:59 | Infectious Diseases Prog Note ---
Assessment/Plan Assessment/Plan Full consult dictated: A) 1) sepsis, leukocytosis, fevers, osteo, wound infection, ? line infection, ? c.diff/ 2) pmh noted, ? gib 3) allergies - noted P) 1) tygacil, levofloxacin, flagyl 2) check cultures, labs and chest x-ray, check c.diff 3) thank you Subjective Allergies: Coded Allergies: CEFTRIAXONE (Verified Allergy, Intermediate, SOB, HR-140bpm, face swollen , pt became red, 10/24/15) CODEINE (Verified Allergy, Intermediate, SWELLING, 01/03/11) LATEX (Verified Allergy, Intermediate, SWELLING, 01/03/11) PIPERACILLIN (Verified Allergy, Intermediate, Itching, 08/29/15) 08/29/15 tolerates Ceftaroline TAZOBACTAM (Verified Allergy, Intermediate, Itching, 01/29/15) POLYMYXIN B (Verified Allergy, Mild, Rash, 04/08/16) Suspected allergy reported by VANCOMYCIN (Verified Allergy, Mild, 07/15/14) ASPARAGINASE (Verified Allergy, Unknown, 01/28/14) CEFUROXIME (Unverified Allergy, Unknown, 04/19/16) IRON (Verified Allergy, Unknown, 01/28/14) LATEX, NATURAL RUBBER (Unverified Allergy, Unknown, 06/18/16) Objective Vital Signs Last 24 Hour Vital Signs Date Time Temp Pulse Resp B/P (MAP) Pulse Ox O2 Delivery O2 Flow Rate FiO2 06/28/17 16:33 99.5 06/28/17 16:03 99.5 06/28/17 14:57 116 18 95 Room Air 21 06/28/17 14:55 116 18 Room Air 21 06/28/17 14:55 116 18 95 Room Air 21 06/28/17 12:16 99.5 120 20 97/54 98 Room Air 99.5 06/28/17 11:34 122 06/28/17 10:54 99.5 06/28/17 08:42 99.5 116 20 118/66 98 Room Air 99.5 06/28/17 07:36 115 06/28/17 06:46 99.9 06/28/17 04:00 99.9 20 104/56 98 Room Air 99.9 06/28/17 04:00 128 3/20/18 00:00 122 06/27/17 21:28 98.9 128 25 91/46 99 Nasal Cannula 2.0 98.9 06/27/17 21:27 117 25 102/48 100 Room Air 06/27/17 19:57 98.8 119 21 98.8 06/27/17 19:42 98.9 118 25 98.9 06/27/17 19:00 98.8 118 20 98.8 06/27/17 18:45 128 17 85/41 99 Nasal Cannula Height (Feet): 5 Height (Inches): 5.00 Weight (Pounds): 198 Laboratory Tests Test 06/28/17 09:30 White Blood Count 15.2 K/UL (4.8-10.8) H Red Blood Count 3.72 M/UL (4.20-5.40) L Hemoglobin 9.9 G/DL (12.0-16.0) #L Hematocrit 29.1 % (37.0-47.0) #L Mean Corpuscular Volume 78 FL (80-99) L Mean Corpuscular Hemoglobin 26.7 PG (27.0-31.0) L Mean Corpuscular Hemoglobin Concent 34.0 G/DL (32.0-36.0) Red Cell Distribution Width 15.4 % (11.6-14.8) H Platelet Count 344 K/UL (150-450) Mean Platelet Volume 6.7 FL (6.5-10.1) Neutrophils (%) (Auto) % (45.0-75.0) Lymphocytes (%) (Auto) % (20.0-45.0) Monocytes (%) (Auto) % (1.0-10.0) Eosinophils (%) (Auto) % (0.0-3.0) Basophils (%) (Auto) % (0.0-2.0) Differential Total Cells Counted 100 Neutrophils % (Manual) 82 % (45-75) H Lymphocytes % (Manual) 9 % (20-45) L Monocytes % (Manual) 3 % (1-10) Eosinophils % (Manual) 0 % (0-3) Basophils % (Manual) 0 % (0-2) Band Neutrophils 6 % (0-8) Platelet Estimate Adequate Platelet Morphology Normal Anisocytosis 1+ Pro-B-Type Natriuretic Peptide 578 pg/mL (0-125) H Current Medications Medications (Trade) Dose Ordered Sig/Pineda Route PRN Reason Start Time Stop Time Status Last Admin Dose Admin Acetaminophen (Tylenol) 650 mg Q6H PRN ORAL Mild Pain/Temp > 100.5 06/28/17 00:00 07/28/17 00:00 Albuterol Sulfate (Proventil MDI) 2 puff Q4H PRN INH Shortness of Breath 06/28/17 10:45 07/28/17 10:44 06/28/17 14:53 Chlorhexidine Gluconate (Nereida-Hex 2%) 1 applic DAILY@2000 TOPIC 06/28/17 20:00 07/28/17 19:59 Hydromorphone HCl (Dilaudid) 1 mg Q3H PRN IVP Severe Pain (Pain Scale 7-10) 06/28/17 00:00 07/05/17 00:00 06/28/17 16:03 Levofloxacin 100 ml @ 100 mls/hr Q24H IVPB 06/28/17 20:00 07/05/17 19:59 Metronidazole 100 ml @ 100 mls/hr Q8HR IVPB 06/28/17 22:00 07/05/17 21:59 Ondansetron HCl (Zofran) 4 mg Q6H PRN IVP Nausea & Vomiting 06/28/17 00:00 07/28/17 00:00 06/28/17 06:49 Pantoprazole (Protonix) 40 mg ACBREAKFAST ORAL 06/28/17 06:30 07/28/17 06:29 06/28/17 06:45 Sodium Chloride 1,000 ml @ 100 mls/hr Q10H IV 06/28/17 04:00 07/28/17 03:59 06/28/17 14:22 Tigecycline 50 mg/ Dextrose 110 ml @ 220 mls/hr Q12H IVPB 06/28/17 21:00 06/29/17 08:59 Zolpidem Tartrate (Ambien) 5 mg HSPRN PRN ORAL Insomnia 06/28/17 00:00 07/05/17 00:00 GRZEGORZ MARTINEZ Jun 28, 2017 17:59
[2017-06-28 18:00] VITALS: BP 106/55
[2017-06-28 20:00] VITALS: BP 111/56
[2017-06-28] MEDS ORDERED: Dyna-Hex 2% Top Sol 2oz TOPIC SCH (20:00)
[2017-06-29] VITALS: BP 93/45
--- NOTE | 2017-06-29 01:46 | Consultation ---
DATE OF CONSULTATION: 06/28/2017 GASTROENTEROLOGY CONSULTATION CONSULTING PHYSICIAN: Lita Bowen M.D. CHIEF COMPLAINT: I was asked to see this patient by Dr. Thanh Glover for evaluation of severe anemia and abnormal liver tests. HISTORY OF PRESENT ILLNESS: The patient is a 42-year-old woman with chronic medical problems including osteomyelitis of the hips, chronic anemia, and debilitated, bedbound state, who comes into the hospital due to above issues as well as severe anemia. The patient has had some units of blood transfusion. The patient has had this problem before and she has undergone endoscopy and colonoscopy in the past. Her colonoscopy was done through a colostomy, which is a side colostomy placed years ago. The colonoscope reached both the cecum as well as the rectum during this examination, which was done about a year and half ago. The results were unremarkable. The patient's blood loss has been attributed to menstrual losses. The patient is not interested in seeking any opinion in that regard. The patient also has abnormal liver tests, which are new during this admission. The patient complains of some intermittent abdominal pain, although she is somewhat vague about her complaints. She did not have abnormal liver tests before. PAST MEDICAL HISTORY: Remarkable for history of chronic osteomyelitis of the hips, history of right hip phlegmon, status post incision and drainage, decubitus ulcerations and wounds, status post left lower quadrant side colostomy, status post colectomy, history of parastomal hernia, and paraplegia. ALLERGIES: Reviewed as listed. FAMILY HISTORY: Noncontributory. SOCIAL HISTORY: The patient lives at home with her family. She does not use drugs. She does not smoke. REVIEW OF SYSTEMS: Otherwise negative. PHYSICAL EXAMINATION: GENERAL: Debilitated woman, seen in her room. HEENT: Normocephalic and atraumatic. Sclerae are anicteric. Oropharynx is clear. NECK: Supple. CHEST: Clear to auscultation. CARDIOVASCULAR: Revealed a regular rate. ABDOMEN: Soft. Good bowel sounds. EXTREMITIES: Revealed no edema. LABORATORY DATA: Laboratory data were noted. ASSESSMENT: This patient presents with severe anemia, which is due to chronic blood loss. She has had an endoscopy and colonoscopy in the past for the same reason. The workup has been negative. The patient can undergo iron evaluation and iron supplementation. A small bowel capsule endoscopy can be considered, although it is not clear if management will be any better than with just iron supplementation. In addition, if the patient has heavy menstrual cycles, then a consideration can be made to hormonal replacement or other type of gynecological treatment and management. With respect to the abnormal liver test, this is a new finding and the patient will require workup including imaging evaluation as well as screening for hepatitis serologies. RECOMMENDATIONS: Per above discussion and per orders written in the chart. Thank you for asking me to participate in the care of this patient. Lita Bowen M.D. DR: ADAMA JOB#: [id number] CC:
[2017-06-29] MEDS: HYDROmorphone 1mg/ml Carpuject IVP PRN ×6 (02:49→22:59)
[2017-06-29 04:00] VITALS: BP 91/50
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
[2017-06-29 08:00] VITALS: BP 98/62
[2017-06-29] MEDS ORDERED: Tigecycline 50 MG in D5W 110 ML IVPB SCH (09:00)
[2017-06-29 12:22] LABS: HEMATOCRIT 28.6 % (37.0-47.0); HEMOGLOBIN 9.3 G/DL (12.0-16.0); MEAN CORPUSCULAR VOLUME 80 FL (80-99); PLATELET COUNT 310 K/UL (150-450); RED BLOOD COUNT 3.58 M/UL (4.20-5.40); RED CELL DISTRIBUTION WIDTH 16.3 % (11.6-14.8); WHITE BLOOD COUNT 12.7 K/UL (4.8-10.8)
--- NOTE | 2017-06-29 12:38 | Diagnostic Imaging Report ---
Indication: Vomiting, abnormal liver function tests and renal function tests Technique: Chiang-scale and duplex images of the upper abdomen were obtained Comparison: 04/24/2016 Findings: Gallbladder demonstrates sludge and small stones. No definite gallbladder wall thickening; gallbladder measures just over 3 mm available images, but is incompletely distended and does not appear grossly thickened. Sonographic Watkins's sign is negative. Common bile duct measures 3 mm in diameter. No intrahepatic biliary ductal dilatation. Liver demonstrates normal echogenicity, no focal abnormality. It is enlarged. Portal vein and hepatic veins are patent. Pancreas is unremarkable. The spleen is enlarged, measuring 14.9 cm long axis dimension. There is an accessory splenule or lobulation. Splenomegaly is a new finding. Left kidney measures 10.6 cm in length. Right kidney measures 13.6 cm length. Both kidneys demonstrate normal echogenicity. There is mild to moderate right hydronephrosis. This is a new finding. One or more small left renal parapelvic cysts are noted. . Non-aneurysmal abdominal aorta . There is a small right-sided pleural effusion incidentally noted. Impression: Gallbladder sludge and stones. Doubt but cannot completely exclude mild gallbladder wall thickening. Consider hepatobiliary nuclear scan if there is high clinical suspicion for acute cholecystitis Hepatosplenomegaly. Splenomegaly is a new finding since prior study of 04/24/2016 [id number] right hydronephrosis, etiology not demonstrated One or more small left renal parapelvic cysts incidentally noted Small right pleural effusion
[2017-06-29 12:47] LABS: % IRON SATURATION 74 % (15-50); IRON 53 ug/dL (50-175); TOTAL IRON BINDING CAPACITY 72 ug/dL (250-450)
[2017-06-29 12:54] LABS: ALANINE AMINOTRANSFERASE < 6 U/L (12-78); ALBUMIN 1.3 G/DL (3.4-5.0); ALBUMIN/GLOBULIN RATIO 0.2 (1.0-2.7); ALKALINE PHOSPHATASE 163 U/L (46-116); ANION GAP 8 mmol/L (5-15); ASPARTATE AMINO TRANSFERASE 8 U/L (15-37); BILIRUBIN,TOTAL 2.8 MG/DL (0.2-1.0); BLOOD UREA NITROGEN 42 mg/dL (7-18); CARBON DIOXIDE 22 MMOL/L (21-32); CHLORIDE 103 MMOL/L (98-107); POTASSIUM 4.4 MMOL/L (3.5-5.1); SODIUM 133 MMOL/L (136-145)
[2017-06-29 12:56] LABS: BILIRUBIN,DIRECT 2.4 MG/DL (0.0-0.3)
--- NOTE | 2017-06-29 15:28 | Diagnostic Imaging Report ---
Indication: Cough Technique: One view of the chest Comparison: 06/09/2016 Findings: There is a right arm PICC which is positioned considerably deeper than on the previous study. There is some atelectasis in the right perihilar region. There is equivocal mild pulmonary vascular congestion. The heart size is borderline enlarged. The pleural spaces are clear. Impression: Borderline cardiomegaly. Equivocal mild pulmonary venous congestion. Correlate with clinical findings Right perihilar atelectasis PICC
[2017-06-29 16:00] VITALS: BP 127/73
[2017-06-29] MEDS ORDERED: Albuterol 90mcg Inhaler 8gm INH PRN (17:20)
[2017-06-29] MEDS ORDERED: Zolpidem 5mg tab ORAL PRN (17:21)
[2017-06-29 20:00] VITALS: BP 91/98
[2017-06-29] MEDS: Dyna-Hex 2% Top Sol 2oz TOPIC SCH (21:58)
[2017-06-29] MEDS: Tigecycline 50 MG in D5W 110 ML IVPB SCH (21:59)
--- NOTE | 2017-06-29 22:59 | General Progress Note ---
Assessment/Plan Assessment/Plan Assessment - Severe anemia - prior negative EGD and Colonoscopy - abnormal LFT - ? etiology - (+) GB stones/sludge - r/o choledocholithiasis - Chronic wounds Recommendations - check MRCP - Check stool OB - follow CBC - Check hep serologies Subjective Allergies: Coded Allergies: CEFTRIAXONE (Verified Allergy, Intermediate, SOB, HR-140bpm, face swollen , pt became red, 10/24/15) CODEINE (Verified Allergy, Intermediate, SWELLING, 01/03/11) LATEX (Verified Allergy, Intermediate, SWELLING, 01/03/11) PIPERACILLIN (Verified Allergy, Intermediate, Itching, 08/29/15) 08/29/15 tolerates Ceftaroline TAZOBACTAM (Verified Allergy, Intermediate, Itching, 01/29/15) POLYMYXIN B (Verified Allergy, Mild, Rash, 04/08/16) Suspected allergy reported by VANCOMYCIN (Verified Allergy, Mild, 07/15/14) ASPARAGINASE (Verified Allergy, Unknown, 01/28/14) CEFUROXIME (Unverified Allergy, Unknown, 04/19/16) IRON (Verified Allergy, Unknown, 01/28/14) LATEX, NATURAL RUBBER (Unverified Allergy, Unknown, 06/18/16) Subjective Feels OK, but tired tolerating PO abd ultrasound noted - (+) GB sludge/stone Objective Last 24 Hour Vital Signs Date Time Temp Pulse Resp B/P (MAP) Pulse Ox O2 Delivery O2 Flow Rate FiO2 06/29/17 20:00 98.8 94 20 91/98 96 98.8 06/29/17 19:51 98.2 06/29/17 16:00 98.0 92 18 127/73 Room Air 98.0 06/29/17 12:47 98.2 06/29/17 12:00 91 06/29/17 08:18 98.2 06/29/17 08:00 97.9 91 18 98/62 94 Room Air 97.9 06/29/17 08:00 96 06/29/17 07:31 98 18 Room Air 21 06/29/17 04:00 98.2 93 20 91/50 94 Room Air 98.2 06/29/17 04:00 96 06/29/17 02:49 98.2 06/29/17 00:00 98.2 108 20 93/45 96 Room Air 98.2 06/29/17 00:00 108 Intake and Output 06/28/17 06/29/17 19:00 07:00 Intake Total 1180 ml 400 ml Balance 1180 ml 400 ml Intake Oral 480 ml 400 ml IV Total 700 ml # Voids 2 # Bowel Movements 1 Laboratory Tests 06/29/17 12:10: White Blood Count 12.7H, Red Blood Count 3.58L, Hemoglobin 9.3L, Hematocrit 28.6L, Mean Corpuscular Volume 80, Mean Corpuscular Hemoglobin 25.9L, Mean Corpuscular Hemoglobin Concent 32.4, Red Cell Distribution Width 16.3H, Platelet Count 310, Mean Platelet Volume 7.4, Neutrophils (%) (Auto) , Lymphocytes (%) (Auto) , Monocytes (%) (Auto) , Eosinophils (%) (Auto) , Basophils (%) (Auto) , Differential Total Cells Counted 100, Neutrophils % ( Manual) 75, Lymphocytes % (Manual) 15L, Monocytes % (Manual) 8, Eosinophils % ( Manual) 0, Basophils % (Manual) 0, Band Neutrophils 2, Platelet Estimate Adequate, Platelet Morphology Normal, Hypochromasia 1+, Anisocytosis 1+, Erythrocyte Sedimentation Rate 116H, Sodium Level 133L, Potassium Level 4.4, Chloride Level 103, Carbon Dioxide Level 22, Anion Gap 8, Blood Urea Nitrogen 42H, Creatinine 1.0, Estimat Glomerular Filtration Rate > 60, Glucose Level 154H , Calcium Level 8.0L, Iron Level 53, Total Iron Binding Capacity 72L, Percent Iron Saturation 74H, Unsaturated Iron Binding 19L, Total Bilirubin 2.8H, Direct Bilirubin 2.4H, Aspartate Amino Transf (AST/SGOT) 8L, Alanine Aminotransferase ( ALT/SGPT) < 6L, Alkaline Phosphatase 163H, Total Protein 6.5, Albumin 1.3L, Globulin 5.2, Albumin/Globulin Ratio 0.2L, Hepatitis A IgM Antibody [Pending], Hepatitis B Surface Antigen [Pending], Hepatitis B Core IgM Antibody [Pending], Hepatitis C Antibody [Pending] Height (Feet): 5 Height (Inches): 5.00 Weight (Pounds): 198 Objective Deblilited WW NCAT supple CTA RR Abd soft (+) contracture deformities PITER DEAN Jun 29, 2017 22:59
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
[2017-06-30] VITALS: BP 86/53
--- NOTE | 2017-06-30 00:15 | Consultation ---
DATE OF CONSULTATION: 06/28/2017 HISTORY: The patient is a 42-year-old female with a history of depression, anxiety INCOMPLETE DICTATION Michael Feng M.D. DR: ABBY JOB#: [id number] CC:
[2017-06-30] MEDS: HYDROmorphone 1mg/ml Carpuject IVP PRN ×6 (02:09→21:08)
[2017-06-30 04:00] VITALS: BP 91/53
[2017-06-30 08:12] LABS: HEMATOCRIT 27.8 % (37.0-47.0); MEAN CORPUSCULAR VOLUME 81 FL (80-99); PLATELET COUNT 300 K/UL (150-450); RED BLOOD COUNT 3.43 M/UL (4.20-5.40); RED CELL DISTRIBUTION WIDTH 16.4 % (11.6-14.8); WHITE BLOOD COUNT 13.8 K/UL (4.8-10.8)
[2017-06-30 08:40] LABS: ALANINE AMINOTRANSFERASE < 6 U/L (12-78); ALBUMIN 1.2 G/DL (3.4-5.0); ALBUMIN/GLOBULIN RATIO 0.3 (1.0-2.7); ALKALINE PHOSPHATASE 141 U/L (46-116); ANION GAP 10 mmol/L (5-15); ASPARTATE AMINO TRANSFERASE 8 U/L (15-37); BILIRUBIN,TOTAL 1.8 MG/DL (0.2-1.0); BLOOD UREA NITROGEN 44 mg/dL (7-18); CARBON DIOXIDE 20 MMOL/L (21-32); CHLORIDE 106 MMOL/L (98-107); CREATININE 0.8 MG/DL (0.55-1.30); SODIUM 136 MMOL/L (136-145)
[2017-06-30 08:41] LABS: BILIRUBIN,DIRECT 1.2 MG/DL (0.0-0.3)
[2017-06-30] MEDS: Tigecycline 50 MG in D5W 110 ML IVPB SCH (08:53)
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
[2017-06-30 12:00] VITALS: BP 91/50
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
[2017-06-30 15:59] VITALS: BP 99/57
[2017-06-30] MEDS ORDERED: DAPTOmycin 550 MG in NS 50 ML IV SCH (17:00)
--- NOTE | 2017-06-30 17:23 | General Progress Note ---
Assessment/Plan Assessment/Plan ASSESSMENT AND RECOMMENDATION: 1. Left femur osteomyelitis per history 2. Bilateral posterior thigh chronic wounds. 3. Chronic bilateral hip osteomyelitis 4. anemia 5. possible gib 6. severe protein calorie malnutrition 7. chronic pain syndrome 8. transaminitis 9. sinus tachycardia 10. fevers 11. possible sepsis 12. multiple abcessess 13. pleural effusions PLAN monitor labs plastics and spine surgery to see empiric antibiotics will need drainage procedure PICC thoracentesis ID evaluation called concern of low albumin pain control may need NGT feeds guarded impression, plan, and exam edited and reviewed in detail care discussed with RN Subjective Allergies: Coded Allergies: CEFTRIAXONE (Verified Allergy, Intermediate, SOB, HR-140bpm, face swollen , pt became red, 10/24/15) CODEINE (Verified Allergy, Intermediate, SWELLING, 01/03/11) LATEX (Verified Allergy, Intermediate, SWELLING, 01/03/11) PIPERACILLIN (Verified Allergy, Intermediate, Itching, 08/29/15) 08/29/15 tolerates Ceftaroline TAZOBACTAM (Verified Allergy, Intermediate, Itching, 01/29/15) POLYMYXIN B (Verified Allergy, Mild, Rash, 04/08/16) Suspected allergy reported by MD VANCOMYCIN (Verified Allergy, Mild, 07/15/14) ASPARAGINASE (Verified Allergy, Unknown, 01/28/14) CEFUROXIME (Unverified Allergy, Unknown, 04/19/16) IRON (Verified Allergy, Unknown, 01/28/14) LATEX, NATURAL RUBBER (Unverified Allergy, Unknown, 06/18/16) Subjective events noted s/p transfusion still in pain CT noted d/w ID Objective Last 24 Hour Vital Signs Date Time Temp Pulse Resp B/P (MAP) Pulse Ox O2 Delivery O2 Flow Rate FiO2 06/30/17 15:59 97.9 97 20 99/57 98 Room Air 97.9 06/30/17 12:00 97.9 88 18 91/50 95 Room Air 97.9 06/30/17 07:40 92 16 Room Air 21 06/30/17 04:00 97.8 87 20 91/53 96 97.8 06/30/17 00:00 97.1 89 20 86/53 95 97.1 06/29/17 20:00 98.8 94 20 91/98 96 98.8 06/29/17 19:51 98.2 06/29/17 19:10 97 18 Room Air 21 Intake and Output 06/29/17 06/30/17 19:00 07:00 Intake Total 610 ml Balance 610 ml Intake Oral 200 ml IV Total 410 ml # Voids 3 Laboratory Tests 06/30/17 06:30: White Blood Count 13.8H, Red Blood Count 3.43L, Hemoglobin 9.0L, Hematocrit 27.8L, Mean Corpuscular Volume 81, Mean Corpuscular Hemoglobin 26.3L, Mean Corpuscular Hemoglobin Concent 32.4, Red Cell Distribution Width 16.4H, Platelet Count 300, Mean Platelet Volume 7.4, Neutrophils (%) (Auto) , Lymphocytes (%) (Auto) , Monocytes (%) (Auto) , Eosinophils (%) (Auto) , Basophils (%) (Auto) , Differential Total Cells Counted 100, Neutrophils % ( Manual) 86H, Lymphocytes % (Manual) 8L, Monocytes % (Manual) 5, Eosinophils % ( Manual) 1, Basophils % (Manual) 0, Band Neutrophils 0, Platelet Estimate Adequate, Platelet Morphology Normal, Sodium Level 136, Potassium Level 4.0, Chloride Level 106, Carbon Dioxide Level 20L, Anion Gap 10, Blood Urea Nitrogen 44H, Creatinine 0.8, Estimat Glomerular Filtration Rate > 60, Glucose Level 112H , Calcium Level 7.0L, Total Bilirubin 1.8H, Direct Bilirubin 1.2H, Aspartate Amino Transf (AST/SGOT) 8L, Alanine Aminotransferase (ALT/SGPT) < 6L, Alkaline Phosphatase 141H, Total Protein 5.9L, Albumin 1.2L, Globulin 4.7, Albumin/ Globulin Ratio 0.3L Height (Feet): 5 Height (Inches): 5.00 Weight (Pounds): 198 Objective WDWN in pain NAD reduced breath sounds bilaterally without rhonchi or wheeze [id number] without MRG NABS nontender obese no CC some edema paraplegic wounds noted LUANN MICHEL Jun 30, 2017 17:23
[2017-06-30 20:00] VITALS: BP 101/61
[2017-06-30] MEDS: Dyna-Hex 2% Top Sol 2oz TOPIC SCH (21:08)
--- NOTE | 2017-06-30 21:25 | General Progress Note ---
Assessment/Plan Status: stable Assessment/Plan MDD anxiety d/o -lexapro 10mg qam Subjective Date patient seen: Jun 30, 2017 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: Reports: anxiety, depressed, emotional problems Allergies: Coded Allergies: CEFTRIAXONE (Verified Allergy, Intermediate, SOB, HR-140bpm, face swollen , pt became red, 10/24/15) CODEINE (Verified Allergy, Intermediate, SWELLING, 01/03/11) LATEX (Verified Allergy, Intermediate, SWELLING, 01/03/11) PIPERACILLIN (Verified Allergy, Intermediate, Itching, 08/29/15) 08/29/15 tolerates Ceftaroline TAZOBACTAM (Verified Allergy, Intermediate, Itching, 01/29/15) POLYMYXIN B (Verified Allergy, Mild, Rash, 04/08/16) Suspected allergy reported by VANCOMYCIN (Verified Allergy, Mild, 07/15/14) ASPARAGINASE (Verified Allergy, Unknown, 01/28/14) CEFUROXIME (Unverified Allergy, Unknown, 04/19/16) IRON (Verified Allergy, Unknown, 01/28/14) LATEX, NATURAL RUBBER (Unverified Allergy, Unknown, 06/18/16) Objective Last 24 Hour Vital Signs Date Time Temp Pulse Resp B/P (MAP) Pulse Ox O2 Delivery O2 Flow Rate FiO2 06/30/17 20:14 94 16 Room Air 21 06/30/17 20:00 97.2 93 20 101/61 98 97.2 06/30/17 15:59 97.9 97 20 99/57 98 Room Air 97.9 06/30/17 12:00 97.9 88 18 91/50 95 Room Air 97.9 06/30/17 07:40 92 16 Room Air 21 06/30/17 04:00 97.8 87 20 91/53 96 97.8 06/30/17 00:00 97.1 89 20 86/53 95 97.1 Intake and Output 06/29/17 06/30/17 19:00 07:00 Intake Total 610 ml Balance 610 ml Intake Oral 200 ml IV Total 410 ml # Voids 3 Laboratory Tests 06/30/17 06:30: White Blood Count 13.8H, Red Blood Count 3.43L, Hemoglobin 9.0L, Hematocrit 27.8L, Mean Corpuscular Volume 81, Mean Corpuscular Hemoglobin 26.3L, Mean Corpuscular Hemoglobin Concent 32.4, Red Cell Distribution Width 16.4H, Platelet Count 300, Mean Platelet Volume 7.4, Neutrophils (%) (Auto) , Lymphocytes (%) (Auto) , Monocytes (%) (Auto) , Eosinophils (%) (Auto) , Basophils (%) (Auto) , Differential Total Cells Counted 100, Neutrophils % ( Manual) 86H, Lymphocytes % (Manual) 8L, Monocytes % (Manual) 5, Eosinophils % ( Manual) 1, Basophils % (Manual) 0, Band Neutrophils 0, Platelet Estimate Adequate, Platelet Morphology Normal, Sodium Level 136, Potassium Level 4.0, Chloride Level 106, Carbon Dioxide Level 20L, Anion Gap 10, Blood Urea Nitrogen 44H, Creatinine 0.8, Estimat Glomerular Filtration Rate > 60, Glucose Level 112H , Calcium Level 7.0L, Total Bilirubin 1.8H, Direct Bilirubin 1.2H, Aspartate Amino Transf (AST/SGOT) 8L, Alanine Aminotransferase (ALT/SGPT) < 6L, Alkaline Phosphatase 141H, Total Protein 5.9L, Albumin 1.2L, Globulin 4.7, Albumin/ Globulin Ratio 0.3L Height (Feet): 5 Height (Inches): 5.00 Weight (Pounds): 198 General Appearance: no apparent distress, alert Neurologic: oriented x 3, responsive, depressed affect Michael Feng M.D. Jun 30, 2017 21:25
[2017-07-01] VITALS: BP 94/54
[2017-07-01] MEDS: HYDROmorphone 1mg/ml Carpuject IVP PRN ×7 (00:19→20:59)
[2017-07-01 04:00] VITALS: BP 84/49
[2017-07-01 05:44] LABS: HEMOGLOBIN 9.1 G/DL (12.0-16.0); MEAN CORPUSCULAR VOLUME 81 FL (80-99); PLATELET COUNT 305 K/UL (150-450); RED BLOOD COUNT 3.46 M/UL (4.20-5.40); WHITE BLOOD COUNT 14.2 K/UL (4.8-10.8)
[2017-07-01] MEDS ORDERED: Heparin 2000 units/Ns 1000ml INJ SCH (06:00)
[2017-07-01] MEDS ORDERED: Lidocaine 1% Plain 30 ml INJ SCH (06:00)
[2017-07-01 06:10] LABS: ALANINE AMINOTRANSFERASE < 6 U/L (12-78); ALBUMIN 1.2 G/DL (3.4-5.0); ALBUMIN/GLOBULIN RATIO 0.2 (1.0-2.7); ALKALINE PHOSPHATASE 140 U/L (46-116); ANION GAP 12 mmol/L (5-15); ASPARTATE AMINO TRANSFERASE 10 U/L (15-37); BILIRUBIN,TOTAL 1.4 MG/DL (0.2-1.0); BLOOD UREA NITROGEN 36 mg/dL (7-18); CALCIUM 7.4 MG/DL (8.5-10.1); CARBON DIOXIDE 20 MMOL/L (21-32); CHLORIDE 101 MMOL/L (98-107); CREATININE 0.8 MG/DL (0.55-1.30); POTASSIUM 3.9 MMOL/L (3.5-5.1); SODIUM 132 MMOL/L (136-145)
[2017-07-01 06:22] LABS: BILIRUBIN,DIRECT 0.9 MG/DL (0.0-0.3)
--- NOTE | 2017-07-01 07:30 | General Progress Note ---
Assessment/Plan Assessment/Plan ASSESSMENT AND RECOMMENDATION: 1. Left femur osteomyelitis per history 2. Bilateral posterior thigh chronic wounds. 3. Chronic bilateral hip osteomyelitis 4. anemia 5. possible gib 6. severe protein calorie malnutrition 7. chronic pain syndrome 8. transaminitis 9. sinus tachycardia 10. fevers 11. sepsis and positive bcx 12. multiple abcessess 13. pleural effusions 13. possible acute osteo PLAN monitor labs plastics and general surgery to see on IV antibiotics will need drainage procedure vs surgical procedures patient aware and will agree if needed PICC thoracentesis ID evaluation appreciated concern of low albumin- nutrition and gi follow up pain control may need NGT feeds guarded may need transfer to [facility] if unable to care for at [facility] impression, plan, and exam edited and reviewed in detail care discussed with RN Subjective Allergies: Coded Allergies: CEFTRIAXONE (Verified Allergy, Intermediate, SOB, HR-140bpm, face swollen , pt became red, 10/24/15) CODEINE (Verified Allergy, Intermediate, SWELLING, 01/03/11) LATEX (Verified Allergy, Intermediate, SWELLING, 01/03/11) PIPERACILLIN (Verified Allergy, Intermediate, Itching, 08/29/15) 08/29/15 tolerates Ceftaroline TAZOBACTAM (Verified Allergy, Intermediate, Itching, 01/29/15) POLYMYXIN B (Verified Allergy, Mild, Rash, 04/08/16) Suspected allergy reported by VANCOMYCIN (Verified Allergy, Mild, 07/15/14) ASPARAGINASE (Verified Allergy, Unknown, 01/28/14) CEFUROXIME (Unverified Allergy, Unknown, 04/19/16) IRON (Verified Allergy, Unknown, 01/28/14) LATEX, NATURAL RUBBER (Unverified Allergy, Unknown, 06/18/16) Subjective events noted d/w ID, spine, general surgery, plastics d/w patient made aware of current condition Objective Last 24 Hour Vital Signs Date Time Temp Pulse Resp B/P (MAP) Pulse Ox O2 Delivery O2 Flow Rate FiO2 07/01/17 07:21 90 16 Room Air 21 07/01/17 04:00 92 07/01/17 04:00 96.1 74 19 84/49 97 96.1 07/01/17 00:49 97.2 07/01/17 00:19 97.2 07/01/17 00:00 97.5 85 20 94/54 98 97.5 06/30/17 20:14 94 16 Room Air 21 06/30/17 20:00 97.2 93 20 101/61 98 97.2 06/30/17 15:59 97.9 97 20 99/57 98 Room Air 97.9 06/30/17 12:00 97.9 88 18 91/50 95 Room Air 97.9 06/30/17 07:40 92 16 Room Air 21 Intake and Output 06/30/17 07/01/17 19:00 07:00 Intake Total 1360 ml 1025 ml Balance 1360 ml 1025 ml Intake Oral 540 ml 750 ml IV Total 820 ml 275 ml # Voids 4 Laboratory Tests 07/01/17 05:00: White Blood Count 14.2H, Red Blood Count 3.46L, Hemoglobin 9.1L, Hematocrit 28.0L, Mean Corpuscular Volume 81, Mean Corpuscular Hemoglobin 26.3L, Mean Corpuscular Hemoglobin Concent 32.6, Red Cell Distribution Width 17.0H, Platelet Count 305, Mean Platelet Volume 7.3, Neutrophils (%) (Auto) , Lymphocytes (%) (Auto) , Monocytes (%) (Auto) , Eosinophils (%) (Auto) , Basophils (%) (Auto) , Sodium Level 132L, Potassium Level 3.9, Chloride Level 101, Carbon Dioxide Level 20L, Anion Gap 12, Blood Urea Nitrogen 36H, Creatinine 0.8, Estimat Glomerular Filtration Rate > 60, Glucose Level 117H, Calcium Level 7.4L, Total Bilirubin 1.4H, Direct Bilirubin 0.9H, Aspartate Amino Transf (AST/SGOT) 10L, Alanine Aminotransferase (ALT/SGPT) < 6L, Alkaline Phosphatase 140H, Total Protein 6.3L, Albumin 1.2L, Globulin 5.1, Albumin/ Globulin Ratio 0.2L Height (Feet): 5 Height (Inches): 5.00 Weight (Pounds): 198 Objective WDWN comfortable and alert NAD reduced breath sounds bilaterally without rhonchi or wheeze [id number] without MRG NABS nontender obese no CC some edema paraplegic wounds noted LUANN MICHEL Jul 01, 2017 07:30
[2017-07-01 08:00] VITALS: BP 95/58
--- NOTE | 2017-07-01 08:36 | General Progress Note ---
Assessment/Plan Problem List: (1) Osteomyelitis of lumbar spine ICD Codes: M46.26 - Osteomyelitis of vertebra, lumbar region SNOMED: 971333668 (2) Paraspinal abscess ICD Codes: M46.20 - Osteomyelitis of vertebra, site unspecified SNOMED: 65654636570771494 (3) Chronic osteomyelitis of hip ICD Codes: M86.68 - Other chronic osteomyelitis, other site SNOMED: 811366117 (4) Paraplegia ICD Codes: G82.20 - Paraplegia SNOMED: [id number] Status: stable Assessment/Plan IV abx spine and surgery eval pain rx ivf wound care Subjective ROS Limited/Unobtainable: No Constitutional: Reports: malaise, weakness HEENT: Reports: no symptoms Cardiovascular: Reports: no symptoms Respiratory: Reports: no symptoms Gastrointestinal/Abdominal: Reports: no symptoms Genitourinary: Reports: no symptoms 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: Reports: pre-existing deficit Endocrine: Reports: no symptoms Hematologic/Lymphatic: Reports: no symptoms Allergies: Coded Allergies: CEFTRIAXONE (Verified Allergy, Intermediate, SOB, HR-140bpm, face swollen , pt became red, 10/24/15) CODEINE (Verified Allergy, Intermediate, SWELLING, 01/03/11) LATEX (Verified Allergy, Intermediate, SWELLING, 01/03/11) PIPERACILLIN (Verified Allergy, Intermediate, Itching, 08/29/15) 08/29/15 tolerates Ceftaroline TAZOBACTAM (Verified Allergy, Intermediate, Itching, 01/29/15) POLYMYXIN B (Verified Allergy, Mild, Rash, 04/08/16) Suspected allergy reported by MD VANCOMYCIN (Verified Allergy, Mild, 07/15/14) ASPARAGINASE (Verified Allergy, Unknown, 01/28/14) CEFUROXIME (Unverified Allergy, Unknown, 04/19/16) IRON (Verified Allergy, Unknown, 01/28/14) LATEX, NATURAL RUBBER (Unverified Allergy, Unknown, 06/18/16) All Systems: reviewed and negative except above Subjective no events. c/o generalized pain. CT noted. extensive spine osteo and paraspinous abscess as well as iliacus abscess, Objective Last 24 Hour Vital Signs Date Time Temp Pulse Resp B/P (MAP) Pulse Ox O2 Delivery O2 Flow Rate FiO2 07/01/17 08:00 97.7 78 20 95/58 97 97.7 07/01/17 07:21 90 16 Room Air 21 07/01/17 04:00 92 07/01/17 04:00 96.1 74 19 84/49 97 96.1 07/01/17 00:49 97.2 07/01/17 00:19 97.2 07/01/17 00:00 97.5 85 20 94/54 98 97.5 06/30/17 20:14 94 16 Room Air 21 06/30/17 20:00 97.2 93 20 101/61 98 97.2 06/30/17 15:59 97.9 97 20 99/57 98 Room Air 97.9 06/30/17 12:00 97.9 88 18 91/50 95 Room Air 97.9 Intake and Output 06/30/17 07/01/17 19:00 07:00 Intake Total 1360 ml 1025 ml Balance 1360 ml 1025 ml Intake Oral 540 ml 750 ml IV Total 820 ml 275 ml # Voids 4 Laboratory Tests 07/01/17 05:00: White Blood Count 14.2H, Red Blood Count 3.46L, Hemoglobin 9.1L, Hematocrit 28.0L, Mean Corpuscular Volume 81, Mean Corpuscular Hemoglobin 26.3L, Mean Corpuscular Hemoglobin Concent 32.6, Red Cell Distribution Width 17.0H, Platelet Count 305, Mean Platelet Volume 7.3, Neutrophils (%) (Auto) , Lymphocytes (%) (Auto) , Monocytes (%) (Auto) , Eosinophils (%) (Auto) , Basophils (%) (Auto) , Sodium Level 132L, Potassium Level 3.9, Chloride Level 101, Carbon Dioxide Level 20L, Anion Gap 12, Blood Urea Nitrogen 36H, Creatinine 0.8, Estimat Glomerular Filtration Rate > 60, Glucose Level 117H, Calcium Level 7.4L, Total Bilirubin 1.4H, Direct Bilirubin 0.9H, Aspartate Amino Transf (AST/SGOT) 10L, Alanine Aminotransferase (ALT/SGPT) < 6L, Alkaline Phosphatase 140H, Total Protein 6.3L, Albumin 1.2L, Globulin 5.1, Albumin/ Globulin Ratio 0.2L Height (Feet): 5 Height (Inches): 5.00 Weight (Pounds): 198 General Appearance: WD/WN, alert Neck: supple Cardiovascular: normal rate Respiratory/Chest: lungs clear, normal breath sounds Abdomen: normal bowel sounds, non tender, soft, no organomegaly Edema: no edema noted Arm (L), no edema noted Arm (R), no edema noted Leg (L), no edema noted Leg (R), no edema noted Pedal (L), no edema noted Pedal (R), no edema noted Generalized Neurologic: motor weakness BONG BRUNNER Jul 01, 2017 08:36
--- NOTE | 2017-07-01 10:50 | General Progress Note ---
Progress Note Progress Note Asked to consult by Dr. Glover. No abdominal issues except moderate para- colostomy hernia. Abdomen exam is benign. CT reveals osteomyelitis of L1 and L2 with large paraspinous abscess tracking into retroperitoneum and abscess of left iliacus muscle. There is extensive destruction of the L1 and L2 vertebral bodies. Per Radiologist placement of a CT guided drainage catheter may not be helpful Imp: Osteomyelitis of spine with large paraspinous abscess and left iliacus muscle abscess Para-colostomy hernia Rec: She needs to be evaluated by a Spine Surgeon JOSE A No acute General Surgical issue currently - will need repair of parastomal hernia when infection resolved Thank you for asking me to see your patient. HERI CLEMENTS Jul 01, 2017 10:50
[2017-07-01 11:55] LABS: INR 1.5 (0.9-1.1)
[2017-07-01 12:00] VITALS: BP 96/57
--- NOTE | 2017-07-01 14:10 | Consultation ---
History of Present Illness General Date patient seen: Jul 01, 2017 Time patient seen: 11:30 Chief Complaint: General Complaint Referring physician: Belen Reason for Consultation: Wounds Present Illness HPI Patient is a 42 yof well known to me at the outpatient wound center at [facility] [place]. She presented to the center on 06/27/17 but looked to be in distress with SOB, N/V. She was sent immediately to the ER where she was found to have a hb of 5.7 and a WBC of 16.5k. She was admitted to the hospital and transfused. She is on broad spectrum antibiotics per ID and underwent a CT that showed a large paraspinal abscess at level of proximal lumbar/distal thoracic level with possible communication with the spinal canal. She was evaluated by general surgery and there was no evidence of an acute abdomen. She has stabilized but has a positive blood culture and is scheduled for PICC line change. She has chronic stage 4 pressure ulcers of the sacrum left ischium and posterior thighs bilaterally for which she was undergoing treatment at the wound center. She is paraplegic. Allergies: Coded Allergies: CEFTRIAXONE (Verified Allergy, Intermediate, SOB, HR-140bpm, face swollen , pt became red, 10/24/15) CODEINE (Verified Allergy, Intermediate, SWELLING, 01/03/11) LATEX (Verified Allergy, Intermediate, SWELLING, 01/03/11) PIPERACILLIN (Verified Allergy, Intermediate, Itching, 08/29/15) 08/29/15 tolerates Ceftaroline TAZOBACTAM (Verified Allergy, Intermediate, Itching, 01/29/15) POLYMYXIN B (Verified Allergy, Mild, Rash, 04/08/16) Suspected allergy reported by VANCOMYCIN (Verified Allergy, Mild, 07/15/14) ASPARAGINASE (Verified Allergy, Unknown, 01/28/14) CEFUROXIME (Unverified Allergy, Unknown, 04/19/16) IRON (Verified Allergy, Unknown, 01/28/14) LATEX, NATURAL RUBBER (Unverified Allergy, Unknown, 06/18/16) Medication History Scheduled Amikacin Sulfate (Amikin), 850 MG IVPB DAILY, (Reported) DAPTOmycin (DAPTOmycin), 500 MG IV DAILY, (Reported) Heparin Sodium,Porcine/Ns/Pf (Heparin), 5,000 UNIT SQ EVERY 12 HOURS, (Reported) Levofloxacin* (Levaquin*), 750 MG ORAL DAILY, (Reported) Meropenem (Meropenem), 1 GM IV EVERY 8 HOURS, (Reported) Meropenem (Merrem), 1 GM IVPB Q8HR, (Reported) No Known Medications* (NKM - No Known Medications*), 0 ., (Reported) Pantoprazole* (Protonix*), 40 MG ORAL DAILY, (Reported) Scheduled PRN Acetaminophen (Acetaminophen), 650 MG ORAL Q4HR PRN for Fever/Headache/Mild Pain , (Reported) Al Hydroxide/mg Hydroxide (Mag-Al Plus Suspension), 30 ML ORAL Q4HR PRN for dyspepsia, (Reported) Diphenhydramine Hcl* (Diphenhydramine Hcl*), 25 MG IVP Q3HR PRN for Itching, ( Reported) Hydromorphone HCl (Dilaudid), 2 MG IVP Q3HR PRN for Severe Pain (Pain Scale 7-10 ), (Reported) Magnesium Hydroxide* (Milk Of Magnesia*), 30 ML ORAL HS PRN for Constipation, ( Reported) Ondansetron* (Zofran*), 4 MG IV Q6HR PRN for Nausea & Vomiting, (Reported) Zolpidem Tartrate* (Ambien*), 5 MG ORAL BEDTIME PRN for insomnia, (Reported) Miscellaneous Medications Unable to Obtain Medications (Unable To Obtain Meds), (Reported) Patient History Healthcare decision maker Resuscitation status Full Code Advanced Directive on File No Review of Systems Constitutional: Reports: weakness Respiratory: Reports: no symptoms Skin: Reports: see HPI Hematologic/Lymphatic: Reports: anemia Physical Exam General Appearance: no apparent distress, alert Lines, tubes and drains: PICC Abdomen: soft Skin Exam: other - Sacral, left ischial and b/l posterior thich ulcers are clean with no evidence of purulent drainage. Periskin with no erythema or warmth and no crepitus. Some tenderness on the left parapsinal area but no erythema or fluctuance. Last 24 Hour Vital Signs Date Time Temp Pulse Resp B/P (MAP) Pulse Ox O2 Delivery O2 Flow Rate FiO2 07/01/17 12:00 97.8 78 19 96/57 97 97.8 07/01/17 08:00 78 07/01/17 08:00 97.7 78 20 95/58 97 97.7 07/01/17 07:21 90 16 Room Air 21 07/01/17 04:00 92 07/01/17 04:00 96.1 74 19 84/49 97 96.1 07/01/17 00:49 97.2 07/01/17 00:19 97.2 07/01/17 00:00 97.5 85 20 94/54 98 97.5 06/30/17 20:14 94 16 Room Air 21 06/30/17 20:00 97.2 93 20 101/61 98 97.2 06/30/17 15:59 97.9 97 20 99/57 98 Room Air 97.9 Intake and Output 06/30/17 07/01/17 19:00 07:00 Intake Total 1360 ml 1025 ml Balance 1360 ml 1025 ml Intake Oral 540 ml 750 ml IV Total 820 ml 275 ml # Voids 4 Laboratory Tests Test 07/01/17 05:00 07/01/17 11:25 White Blood Count 14.2 K/UL (4.8-10.8) H Red Blood Count 3.46 M/UL (4.20-5.40) L Hemoglobin 9.1 G/DL (12.0-16.0) L Hematocrit 28.0 % (37.0-47.0) L Mean Corpuscular Volume 81 FL (80-99) Mean Corpuscular Hemoglobin 26.3 PG (27.0-31.0) L Mean Corpuscular Hemoglobin Concent 32.6 G/DL (32.0-36.0) Red Cell Distribution Width 17.0 % (11.6-14.8) H Platelet Count 305 K/UL (150-450) Mean Platelet Volume 7.3 FL (6.5-10.1) Neutrophils (%) (Auto) % (45.0-75.0) Lymphocytes (%) (Auto) % (20.0-45.0) Monocytes (%) (Auto) % (1.0-10.0) Eosinophils (%) (Auto) % (0.0-3.0) Basophils (%) (Auto) % (0.0-2.0) Sodium Level 132 MMOL/L (136-145) L Potassium Level 3.9 MMOL/L (3.5-5.1) Chloride Level 101 MMOL/L (98-107) Carbon Dioxide Level 20 MMOL/L (21-32) L Anion Gap 12 mmol/L (5-15) Blood Urea Nitrogen 36 mg/dL (7-18) H Creatinine 0.8 MG/DL (0.55-1.30) Estimat Glomerular Filtration Rate > 60 mL/min (>60) Glucose Level 117 MG/DL (74-106) H Calcium Level 7.4 MG/DL (8.5-10.1) L Total Bilirubin 1.4 MG/DL (0.2-1.0) H Direct Bilirubin 0.9 MG/DL (0.0-0.3) H Aspartate Amino Transf (AST/SGOT) 10 U/L (15-37) L Alanine Aminotransferase (ALT/SGPT) < 6 U/L (12-78) L Alkaline Phosphatase 140 U/L (46-116) H Total Protein 6.3 G/DL (6.4-8.2) L Albumin 1.2 G/DL (3.4-5.0) L Globulin 5.1 g/dL Albumin/Globulin Ratio 0.2 (1.0-2.7) L Prothrombin Time 16.1 SEC (9.30-11.50) H Prothromb Time International Ratio 1.5 (0.9-1.1) H Activated Partial Thromboplast Time 46 SEC (23-33) H Height (Feet): 5 Height (Inches): 5.00 Weight (Pounds): 198 Medications Current Medications Medications (Trade) Dose Ordered Sig/Pineda Route PRN Reason Start Time Stop Time Status Last Admin Dose Admin Acetaminophen (Tylenol) 650 mg Q6H PRN ORAL Mild Pain/Temp > 100.5 06/29/17 17:20 07/28/17 17:19 Albuterol Sulfate (Proventil MDI) 2 puff Q4H PRN INH Shortness of Breath 06/29/17 17:20 07/28/17 17:19 Chlorhexidine Gluconate (Nereida-Hex 2%) 1 applic DAILY@2000 TOPIC 06/29/17 20:00 07/28/17 19:59 06/30/17 21:08 Daptomycin 550 mg/ Sodium Chloride 50 ml @ 100 mls/hr Q24H IV 06/30/17 17:00 07/07/17 16:59 06/30/17 18:17 Escitalopram Oxalate (Lexapro) 10 mg DAILY ORAL 06/30/17 09:00 07/30/17 08:59 Heparin Sodium/ Sodium Chloride (Heparin 2000 units/Ns 1000ml premix) 2,000 unit ONCE INJ 07/01/17 06:00 07/01/17 23:59 Hydromorphone HCl (Dilaudid) 1 mg Q3H PRN IVP Severe Pain (Pain Scale 7-10) 06/29/17 17:21 07/05/17 17:20 07/01/17 12:49 Levofloxacin 100 ml @ 100 mls/hr Q24H IVPB 06/29/17 20:00 07/05/17 19:59 06/30/17 21:09 Lidocaine HCl (Xylocaine 1% 30ml) 30 ml ONCE INJ 07/01/17 06:00 07/01/17 23:59 Metronidazole 100 ml @ 100 mls/hr Q8HR IVPB 06/29/17 22:00 07/05/17 21:59 06/30/17 21:09 Ondansetron HCl (Zofran) 4 mg Q6H PRN IVP Nausea & Vomiting 06/29/17 17:21 07/28/17 17:20 06/30/17 21:08 Pantoprazole (Protonix) 40 mg ACBREAKFAST ORAL 06/30/17 06:30 07/28/17 06:29 07/01/17 06:28 Sodium Chloride 1,000 ml @ 100 mls/hr Q10H IV 06/29/17 17:20 07/28/17 17:19 07/01/17 03:14 Zolpidem Tartrate (Ambien) 5 mg HSPRN PRN ORAL Insomnia 06/29/17 17:21 07/06/17 17:20 Assessment/Plan Assessment/Plan Patient has a paraspinal fluid collection per CT report. Draining this is outside the scope of my practice and would need to be evaluated by spine surgeon. If unable to be evaluated at C recommend transfer to higher level of care. The wounds are clean and in good condition despite the size and depth of them. There is no need for urgent surgical intervention of the wounds. Agree with changing the PICC line. Discussed the case with Dr. Glover. LEEANNA CORONA Jul 01, 2017 14:10
--- NOTE | 2017-07-01 15:13 | General Progress Note ---
Assessment/Plan Assessment/Plan MDD anxiety d/o -lexapro 10mg qam Subjective Date patient seen: Jul 01, 2017 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: Reports: anxiety, depressed, emotional problems Allergies: Coded Allergies: CEFTRIAXONE (Verified Allergy, Intermediate, SOB, HR-140bpm, face swollen , pt became red, 10/24/15) CODEINE (Verified Allergy, Intermediate, SWELLING, 01/03/11) LATEX (Verified Allergy, Intermediate, SWELLING, 01/03/11) PIPERACILLIN (Verified Allergy, Intermediate, Itching, 08/29/15) 08/29/15 tolerates Ceftaroline TAZOBACTAM (Verified Allergy, Intermediate, Itching, 01/29/15) POLYMYXIN B (Verified Allergy, Mild, Rash, 04/08/16) Suspected allergy reported by VANCOMYCIN (Verified Allergy, Mild, 07/15/14) ASPARAGINASE (Verified Allergy, Unknown, 01/28/14) CEFUROXIME (Unverified Allergy, Unknown, 04/19/16) IRON (Verified Allergy, Unknown, 01/28/14) LATEX, NATURAL RUBBER (Unverified Allergy, Unknown, 06/18/16) Objective Last 24 Hour Vital Signs Date Time Temp Pulse Resp B/P (MAP) Pulse Ox O2 Delivery O2 Flow Rate FiO2 07/01/17 12:00 97.8 78 19 96/57 97 97.8 07/01/17 08:00 78 07/01/17 08:00 97.7 78 20 95/58 97 97.7 07/01/17 07:21 90 16 Room Air 21 07/01/17 04:00 92 07/01/17 04:00 96.1 74 19 84/49 97 96.1 07/01/17 00:49 97.2 07/01/17 00:19 97.2 07/01/17 00:00 97.5 85 20 94/54 98 97.5 06/30/17 20:14 94 16 Room Air 21 06/30/17 20:00 97.2 93 20 101/61 98 97.2 06/30/17 15:59 97.9 97 20 99/57 98 Room Air 97.9 Intake and Output 06/30/17 07/01/17 19:00 07:00 Intake Total 1360 ml 1025 ml Balance 1360 ml 1025 ml Intake Oral 540 ml 750 ml IV Total 820 ml 275 ml # Voids 4 Laboratory Tests 07/01/17 05:00: White Blood Count 14.2H, Red Blood Count 3.46L, Hemoglobin 9.1L, Hematocrit 28.0L, Mean Corpuscular Volume 81, Mean Corpuscular Hemoglobin 26.3L, Mean Corpuscular Hemoglobin Concent 32.6, Red Cell Distribution Width 17.0H, Platelet Count 305, Mean Platelet Volume 7.3, Neutrophils (%) (Auto) , Lymphocytes (%) (Auto) , Monocytes (%) (Auto) , Eosinophils (%) (Auto) , Basophils (%) (Auto) , Sodium Level 132L, Potassium Level 3.9, Chloride Level 101, Carbon Dioxide Level 20L, Anion Gap 12, Blood Urea Nitrogen 36H, Creatinine 0.8, Estimat Glomerular Filtration Rate > 60, Glucose Level 117H, Calcium Level 7.4L, Total Bilirubin 1.4H, Direct Bilirubin 0.9H, Aspartate Amino Transf (AST/SGOT) 10L, Alanine Aminotransferase (ALT/SGPT) < 6L, Alkaline Phosphatase 140H, Total Protein 6.3L, Albumin 1.2L, Globulin 5.1, Albumin/ Globulin Ratio 0.2L 07/01/17 11:25: Prothrombin Time 16.1H, Prothromb Time International Ratio 1.5H, Activated Partial Thromboplast Time 46H Height (Feet): 5 Height (Inches): 5.00 Weight (Pounds): 198 Michael Feng M.D. Jul 01, 2017 15:13
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
--- NOTE | 2017-07-01 17:32 | Pre-Procedure Note/Attestation ---
Pre-Procedure Note/Attestation Complete Prior to Procedure Planned Procedure: right Procedure Narrative: US guided thoracentesis Indications for Procedure Pre-Operative Diagnosis: pl effusion Attestation I attest that I discussed the nature of the procedure; its benefits; risks and complications; and alternatives (and the risks and benefits of such alternatives ), prior to the procedure, with the patient (or the patient's legal car sales representative). I attest that, if there was a reasonable possibility of needing a blood transfusion, the patient (or the patient's legal car sales representative) was given the [facility] standardized written summary, pursuant to the Wally Tami Blood Safety Act ([place] Health and Safety Code # 1645, as amended). I attest that I re-evaluated the patient just prior to the surgery and that there has been no change in the patient's H&P, except as documented below: XANDER NOLAN M.D. Jul 01, 2017 17:32
--- NOTE | 2017-07-01 17:33 | Brief Operative Note ---
Immediate Post Operative Note Operative Note Pre-op Diagnosis: pl effusion Post-op Diagnosis: same as pre-op Findings: consistent w/pre-op dx studies Surgeon: Lourdes NOLAN Specimen: yes - 300 ml cloudy yellow fluid Complications: none Condition: stable Fluids: none Drains: none Implant(s) used?: No XANDER NOLAN M.D. Jul 01, 2017 17:33
[2017-07-01] MEDS ORDERED: [UNRECOGNIZED DRUG - OTHER] IVPB ONE ×2 (18:00)
--- NOTE | 2017-07-01 18:22 | Diagnostic Imaging Report ---
Indications: Needs long-term IV access Technique: Ultrasound confirms patent compressible left basilic vein. Total sterile technique, including sterile probe cover and sterile gel, hat, mask,, sterile gown, large sterile drape, and preparation with 2% chlorhexidine utilized. Local anesthesia with 1% lidocaine. Under real-time ultrasound guidance, puncture basilic vein using 21-gauge needle, documented and archived, passage 0.018 guidewire under direct fluoroscopy, which was used to determine appropriate catheter length, exchange for 5 Georgian peel-away sheath. 5 Georgian Bard dual-lumen power PICC cut to 39 cm. It was inserted through the peel-away sheath. Peel-away sheath and guidewire removed. Catheter fixed to the skin. Both catheter ports aspirated and flushed. Patient tolerated procedure well, without immediate complication. Digital radiograph documents satisfactory catheter tip position, at the cavoatrial junction. Total fluoroscopy time 0.4 minutes. Total dose area product 10 dGycm2 Impression: Successful placement of left arm PICC under sonographic and fluoroscopic guidance, as described above.
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
[2017-07-01 20:00] VITALS: BP 94/52
[2017-07-01] MEDS ORDERED: Dyna-Hex 2% Top Sol 2oz TOPIC SCH (20:00)
[2017-07-01] MEDS: Dyna-Hex 2% Top Sol 2oz TOPIC SCH (20:57)
--- NOTE | 2017-07-01 23:26 | General Progress Note ---
Assessment/Plan Assessment/Plan Assessment - Spine osteo - paraspinous abscess - (R) hydro - cholelithiasis - Severe anemia - prior negative EGD and Colonoscopy - abnormal LFT - ? passed a stone - (+) GB stones/sludge - Chronic wounds Recommendations - follow labs for now - Check stool OB - follow CBC - Check hep serologies --> negative - ID f/u - Ortho spine eval - monitor intake Subjective Allergies: Coded Allergies: CEFTRIAXONE (Verified Allergy, Intermediate, SOB, HR-140bpm, face swollen , pt became red, 10/24/15) CODEINE (Verified Allergy, Intermediate, SWELLING, 01/03/11) LATEX (Verified Allergy, Intermediate, SWELLING, 01/03/11) PIPERACILLIN (Verified Allergy, Intermediate, Itching, 08/29/15) 08/29/15 tolerates Ceftaroline TAZOBACTAM (Verified Allergy, Intermediate, Itching, 01/29/15) POLYMYXIN B (Verified Allergy, Mild, Rash, 04/08/16) Suspected allergy reported by VANCOMYCIN (Verified Allergy, Mild, 07/15/14) ASPARAGINASE (Verified Allergy, Unknown, 01/28/14) CEFUROXIME (Unverified Allergy, Unknown, 04/19/16) IRON (Verified Allergy, Unknown, 01/28/14) LATEX, NATURAL RUBBER (Unverified Allergy, Unknown, 06/18/16) Subjective c/o back pain tolerating po, but poor intake (+) BM complex CT result noted Objective Last 24 Hour Vital Signs Date Time Temp Pulse Resp B/P (MAP) Pulse Ox O2 Delivery O2 Flow Rate FiO2 07/01/17 20:00 98.8 91 18 94/52 96 Room Air 98.8 07/01/17 19:15 94 16 Room Air 07/01/17 19:06 97 07/01/17 15:19 84 07/01/17 12:00 80 07/01/17 12:00 97.8 78 19 96/57 97 97.8 07/01/17 08:00 78 07/01/17 08:00 97.7 78 20 95/58 97 97.7 07/01/17 07:21 90 16 Room Air 21 07/01/17 04:00 92 07/01/17 04:00 96.1 74 19 84/49 97 96.1 07/01/17 00:49 97.2 3/23/18 00:19 97.2 07/01/17 00:00 97.5 85 20 94/54 98 97.5 Intake and Output 06/30/17 07/01/17 19:00 07:00 Intake Total 1360 ml 1025 ml Balance 1360 ml 1025 ml Intake Oral 540 ml 750 ml IV Total 820 ml 275 ml # Voids 4 Laboratory Tests 07/01/17 05:00: White Blood Count 14.2H, Red Blood Count 3.46L, Hemoglobin 9.1L, Hematocrit 28.0L, Mean Corpuscular Volume 81, Mean Corpuscular Hemoglobin 26.3L, Mean Corpuscular Hemoglobin Concent 32.6, Red Cell Distribution Width 17.0H, Platelet Count 305, Mean Platelet Volume 7.3, Neutrophils (%) (Auto) , Lymphocytes (%) (Auto) , Monocytes (%) (Auto) , Eosinophils (%) (Auto) , Basophils (%) (Auto) , Sodium Level 132L, Potassium Level 3.9, Chloride Level 101, Carbon Dioxide Level 20L, Anion Gap 12, Blood Urea Nitrogen 36H, Creatinine 0.8, Estimat Glomerular Filtration Rate > 60, Glucose Level 117H, Calcium Level 7.4L, Total Bilirubin 1.4H, Direct Bilirubin 0.9H, Aspartate Amino Transf (AST/SGOT) 10L, Alanine Aminotransferase (ALT/SGPT) < 6L, Alkaline Phosphatase 140H, Total Protein 6.3L, Albumin 1.2L, Globulin 5.1, Albumin/ Globulin Ratio 0.2L 07/01/17 11:25: Prothrombin Time 16.1H, Prothromb Time International Ratio 1.5H, Activated Partial Thromboplast Time 46H Height (Feet): 5 Height (Inches): 5.00 Weight (Pounds): 198 Objective Deblilited WW NCAT supple CTA RR Abd soft, (+) Mild diffuse TTP (+) contracture deformities PITER DEAN Jul 01, 2017 23:26
[2017-07-02] VITALS: BP 98/50
[2017-07-02] MEDS: HYDROmorphone 1mg/ml Carpuject IVP PRN ×6 (00:29→18:45)
[2017-07-02 04:00] VITALS: BP 109/65
[2017-07-02 04:34] LABS: HEMATOCRIT 24.9 % (37.0-47.0); HEMOGLOBIN 8.1 G/DL (12.0-16.0); MEAN CORPUSCULAR VOLUME 80 FL (80-99); PLATELET COUNT 253 K/UL (150-450); RED BLOOD COUNT 3.09 M/UL (4.20-5.40); RED CELL DISTRIBUTION WIDTH 17.3 % (11.6-14.8); WHITE BLOOD COUNT 11.4 K/UL (4.8-10.8)
[2017-07-02 05:08] LABS: ANION GAP 10 mmol/L (5-15); BLOOD UREA NITROGEN 22 mg/dL (7-18); CALCIUM 7.1 MG/DL (8.5-10.1); CARBON DIOXIDE 21 MMOL/L (21-32); CHLORIDE 105 MMOL/L (98-107); CREATININE 0.7 MG/DL (0.55-1.30); POTASSIUM 3.3 MMOL/L (3.5-5.1); SODIUM 136 MMOL/L (136-145)
[2017-07-02 08:00] VITALS: BP 100/53
--- NOTE | 2017-07-02 09:35 | General Progress Note ---
Assessment/Plan Problem List: (1) Osteomyelitis of lumbar spine ICD Codes: M46.26 - Osteomyelitis of vertebra, lumbar region SNOMED: 846518096 (2) Paraspinal abscess ICD Codes: M46.20 - Osteomyelitis of vertebra, site unspecified SNOMED: 10163334238765669 (3) Chronic osteomyelitis of hip ICD Codes: M86.68 - Other chronic osteomyelitis, other site SNOMED: 703339452 (4) Paraplegia ICD Codes: G82.20 - Paraplegia SNOMED: 01528993 Status: stable, progressing Assessment/Plan IV abx spine and surgery eval pain rx ivf wound care transfer to [facility] for higher level of care Subjective ROS Limited/Unobtainable: No Constitutional: Reports: malaise, weakness HEENT: Reports: no symptoms Cardiovascular: Reports: no symptoms Respiratory: Reports: no symptoms Gastrointestinal/Abdominal: Reports: no symptoms Genitourinary: Reports: no symptoms 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: Reports: pre-existing deficit Endocrine: Reports: no symptoms Hematologic/Lymphatic: Reports: anemia Allergies: Coded Allergies: CEFTRIAXONE (Verified Allergy, Intermediate, SOB, HR-140bpm, face swollen , pt became red, 10/24/15) CODEINE (Verified Allergy, Intermediate, SWELLING, 01/03/11) LATEX (Verified Allergy, Intermediate, SWELLING, 01/03/11) PIPERACILLIN (Verified Allergy, Intermediate, Itching, 08/29/15) 08/29/15 tolerates Ceftaroline TAZOBACTAM (Verified Allergy, Intermediate, Itching, 01/29/15) POLYMYXIN B (Verified Allergy, Mild, Rash, 04/08/16) Suspected allergy reported by VANCOMYCIN (Verified Allergy, Mild, 07/15/14) ASPARAGINASE (Verified Allergy, Unknown, 01/28/14) CEFUROXIME (Unverified Allergy, Unknown, 04/19/16) IRON (Verified Allergy, Unknown, 01/28/14) LATEX, NATURAL RUBBER (Unverified Allergy, Unknown, 06/18/16) All Systems: reviewed and negative except above Subjective no events. c/o generalized pain. CT noted. extensive spine osteo and paraspinous abscess as well as iliacus abscess, on abx. plastics noted. Objective Last 24 Hour Vital Signs Date Time Temp Pulse Resp B/P (MAP) Pulse Ox O2 Delivery O2 Flow Rate FiO2 07/02/17 09:30 83 16 Room Air 21 07/02/17 08:00 82 07/02/17 08:00 97.2 82 20 100/53 97 Room Air 97.2 07/02/17 04:00 98.0 96 18 109/65 98 Room Air 98.0 07/02/17 03:34 93 07/02/17 00:00 98.7 95 18 98/50 95 Room Air 98.7 07/01/17 23:39 94 07/01/17 20:00 98.8 91 18 94/52 96 Room Air 98.8 07/01/17 19:15 94 16 Room Air 07/01/17 19:06 97 07/01/17 15:19 84 07/01/17 12:00 80 07/01/17 12:00 97.8 78 19 96/57 97 97.8 Intake and Output 07/01/17 07/02/17 19:00 07:00 Intake Total 350 ml 1878.3 ml Balance 350 ml 1878.3 ml Intake Oral 250 ml 350 ml IV Total 100 ml 1528.3 ml Laboratory Tests 07/01/17 11:25: Prothrombin Time 16.1H, Prothromb Time International Ratio 1.5H, Activated Partial Thromboplast Time 46H 07/02/17 03:00: Total Protein 5.5L 07/02/17 03:30: White Blood Count 11.4H, Red Blood Count 3.09L, Hemoglobin 8.1L, Hematocrit 24.9L, Mean Corpuscular Volume 80, Mean Corpuscular Hemoglobin 26.3L, Mean Corpuscular Hemoglobin Concent 32.7, Red Cell Distribution Width 17.3H, Platelet Count 253, Mean Platelet Volume 8.4, Neutrophils (%) (Auto) , Lymphocytes (%) (Auto) , Monocytes (%) (Auto) , Eosinophils (%) (Auto) , Basophils (%) (Auto) , Sodium Level 136, Potassium Level 3.3L, Chloride Level 105, Carbon Dioxide Level 21, Anion Gap 10, Blood Urea Nitrogen 22H, Creatinine 0.7, Estimat Glomerular Filtration Rate > 60, Glucose Level 126H, Calcium Level 7.1L Height (Feet): 5 Height (Inches): 5.00 Weight (Pounds): 213 Objective General Appearance: WD/WN, alert Neck: supple Cardiovascular: normal rate Respiratory/Chest: lungs clear, normal breath sounds Abdomen: normal bowel sounds, non tender, soft, no organomegaly Edema: no edema noted Arm (L), no edema noted Arm (R), no edema noted Leg (L), no edema noted Leg (R), no edema noted Pedal (L), no edema noted Pedal (R), no edema noted Generalized Neurologic: motor weakness BONG BRUNNER Jul 02, 2017 09:35
[2017-07-02] MEDS ORDERED: DAPTOmycin 550 MG in NS 50 ML IV SCH (10:00)
[2017-07-02 12:00] VITALS: BP 100/53
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
[2017-07-02 16:00] VITALS: BP 94/50
--- NOTE | 2017-07-02 18:27 | General Progress Note ---
Assessment/Plan Assessment/Plan Assessment - Spine osteo - paraspinous abscess - (R) hydro - cholelithiasis - Severe anemia - prior negative EGD and Colonoscopy - abnormal LFT - ? passed a stone - Hepatosplenomegally, ? early portal HTN - (+) GB stones/sludge - Chronic wounds Recommendations - follow labs for now - Check stool OB - follow CBC - Check hep serologies --> negative - ID f/u - Ortho spine eval - monitor intake Subjective Allergies: Coded Allergies: CEFTRIAXONE (Verified Allergy, Intermediate, SOB, HR-140bpm, face swollen , pt became red, 10/24/15) CODEINE (Verified Allergy, Intermediate, SWELLING, 01/03/11) LATEX (Verified Allergy, Intermediate, SWELLING, 01/03/11) PIPERACILLIN (Verified Allergy, Intermediate, Itching, 08/29/15) 08/29/15 tolerates Ceftaroline TAZOBACTAM (Verified Allergy, Intermediate, Itching, 01/29/15) POLYMYXIN B (Verified Allergy, Mild, Rash, 04/08/16) Suspected allergy reported by VANCOMYCIN (Verified Allergy, Mild, 07/15/14) ASPARAGINASE (Verified Allergy, Unknown, 01/28/14) CEFUROXIME (Unverified Allergy, Unknown, 04/19/16) IRON (Verified Allergy, Unknown, 01/28/14) LATEX, NATURAL RUBBER (Unverified Allergy, Unknown, 06/18/16) Subjective c/o back pain tolerating po, but poor intake advised re need for aggressive nutritional intake Objective Last 24 Hour Vital Signs Date Time Temp Pulse Resp B/P (MAP) Pulse Ox O2 Delivery O2 Flow Rate FiO2 07/02/17 16:00 97.7 97 18 94/50 98 Room Air 97.7 07/02/17 16:00 82 07/02/17 12:00 97.9 88 20 100/53 98 Room Air 97.9 07/02/17 11:47 83 07/02/17 09:30 83 16 Room Air 21 07/02/17 08:00 82 07/02/17 08:00 97.2 82 20 100/53 97 Room Air 97.2 07/02/17 04:00 98.0 96 18 109/65 98 Room Air 98.0 07/02/17 03:34 93 07/02/17 00:00 98.7 95 18 98/50 95 Room Air 98.7 07/01/17 23:39 94 07/01/17 20:00 98.8 91 18 94/52 96 Room Air 98.8 07/01/17 19:15 94 16 Room Air 07/01/17 19:06 97 Intake and Output 07/01/17 07/02/17 19:00 07:00 Intake Total 1050 ml 1878.3 ml Balance 1050 ml 1878.3 ml Intake Oral 250 ml 350 ml IV Total 800 ml 1528.3 ml Laboratory Tests 07/02/17 03:00: Total Protein 5.5L 07/02/17 03:30: White Blood Count 11.4H, Red Blood Count 3.09L, Hemoglobin 8.1L, Hematocrit 24.9L, Mean Corpuscular Volume 80, Mean Corpuscular Hemoglobin 26.3L, Mean Corpuscular Hemoglobin Concent 32.7, Red Cell Distribution Width 17.3H, Platelet Count 253, Mean Platelet Volume 8.4, Neutrophils (%) (Auto) , Lymphocytes (%) (Auto) , Monocytes (%) (Auto) , Eosinophils (%) (Auto) , Basophils (%) (Auto) , Sodium Level 136, Potassium Level 3.3L, Chloride Level 105, Carbon Dioxide Level 21, Anion Gap 10, Blood Urea Nitrogen 22H, Creatinine 0.7, Estimat Glomerular Filtration Rate > 60, Glucose Level 126H, Calcium Level 7.1L Height (Feet): 5 Height (Inches): 5.00 Weight (Pounds): 213 Objective Deblilited WW NCAT supple CTA RR Abd soft, (+) colostomy (+) contracture deformities PITER DEAN Jul 02, 2017 18:27
[2017-07-02] MEDS: Dyna-Hex 2% Top Sol 2oz TOPIC SCH (19:55)
[2017-07-02 20:00] VITALS: BP 89/54
[2017-07-03] VITALS: BP 111/71
[2017-07-03] MEDS: HYDROmorphone 1mg/ml Carpuject IVP PRN ×5 (00:20→15:48)
[2017-07-03 04:00] VITALS: BP 101/62
[2017-07-03 05:38] LABS: HEMATOCRIT 24.4 % (37.0-47.0); HEMOGLOBIN 7.9 G/DL (12.0-16.0); MEAN CORPUSCULAR VOLUME 81 FL (80-99); PLATELET COUNT 231 K/UL (150-450); RED BLOOD COUNT 3.02 M/UL (4.20-5.40); RED CELL DISTRIBUTION WIDTH 17.4 % (11.6-14.8); WHITE BLOOD COUNT 8.7 K/UL (4.8-10.8)
[2017-07-03 05:51] LABS: ALANINE AMINOTRANSFERASE < 6 U/L (12-78); ALBUMIN 1.1 G/DL (3.4-5.0); ALBUMIN/GLOBULIN RATIO 0.3 (1.0-2.7); ALKALINE PHOSPHATASE 116 U/L (46-116); ANION GAP 12 mmol/L (5-15); ASPARTATE AMINO TRANSFERASE 8 U/L (15-37); BILIRUBIN,TOTAL 0.7 MG/DL (0.2-1.0); BLOOD UREA NITROGEN 12 mg/dL (7-18); CALCIUM 6.9 MG/DL (8.5-10.1); CARBON DIOXIDE 19 MMOL/L (21-32); CHLORIDE 107 MMOL/L (98-107); CREATININE 0.6 MG/DL (0.55-1.30); POTASSIUM 3.2 MMOL/L (3.5-5.1); SODIUM 138 MMOL/L (136-145)
[2017-07-03 08:00] VITALS: BP 115/68
--- NOTE | 2017-07-03 08:29 | General Progress Note ---
Assessment/Plan Problem List: (1) Osteomyelitis of lumbar spine ICD Codes: M46.26 - Osteomyelitis of vertebra, lumbar region SNOMED: 340651135 (2) Paraspinal abscess ICD Codes: M46.20 - Osteomyelitis of vertebra, site unspecified SNOMED: 18068798861328516 (3) Chronic osteomyelitis of hip ICD Codes: M86.68 - Other chronic osteomyelitis, other site SNOMED: 031293055 (4) Paraplegia ICD Codes: G82.20 - Paraplegia SNOMED: 13988613 Status: stable Assessment/Plan IV abx spine and surgery eval pain rx ivf wound care repeat cbc tomorrow may need transfusion transfer to [facility] for higher level of care Subjective ROS Limited/Unobtainable: No Constitutional: Reports: malaise, weakness HEENT: Reports: no symptoms Cardiovascular: Reports: no symptoms Respiratory: Reports: no symptoms Gastrointestinal/Abdominal: Reports: no symptoms Genitourinary: Reports: no symptoms 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: Reports: pre-existing deficit Endocrine: Reports: no symptoms Hematologic/Lymphatic: Reports: no symptoms Allergies: Coded Allergies: CEFTRIAXONE (Verified Allergy, Intermediate, SOB, HR-140bpm, face swollen , pt became red, 10/24/15) CODEINE (Verified Allergy, Intermediate, SWELLING, 01/03/11) LATEX (Verified Allergy, Intermediate, SWELLING, 01/03/11) PIPERACILLIN (Verified Allergy, Intermediate, Itching, 08/29/15) 08/29/15 tolerates Ceftaroline TAZOBACTAM (Verified Allergy, Intermediate, Itching, 01/29/15) POLYMYXIN B (Verified Allergy, Mild, Rash, 04/08/16) Suspected allergy reported by VANCOMYCIN (Verified Allergy, Mild, 07/15/14) ASPARAGINASE (Verified Allergy, Unknown, 01/28/14) CEFUROXIME (Unverified Allergy, Unknown, 04/19/16) IRON (Verified Allergy, Unknown, 01/28/14) LATEX, NATURAL RUBBER (Unverified Allergy, Unknown, 06/18/16) All Systems: reviewed and negative except above Subjective no events. c/o generalized pain. CT noted. extensive spine osteo and paraspinous abscess as well as iliacus abscess, on abx. plastics noted. awaiting bed at [facility] wants more pain meds but appears comfortable Objective Last 24 Hour Vital Signs Date Time Temp Pulse Resp B/P (MAP) Pulse Ox O2 Delivery O2 Flow Rate FiO2 07/03/17 07:30 88 18 Room Air 21 07/03/17 04:29 98.1 07/03/17 04:00 98.0 88 20 101/62 99 Room Air 98.0 07/03/17 03:59 98.1 07/03/17 03:32 82 07/03/17 00:20 98.1 07/03/17 00:00 98.2 90 18 111/71 97 Room Air 98.2 07/03/17 00:00 89 07/02/17 20:00 106 07/02/17 20:00 98.1 93 20 89/54 96 Room Air 98.1 07/02/17 19:25 86 18 Room Air 21 07/02/17 16:00 97.7 97 18 94/50 98 Room Air 97.7 07/02/17 16:00 82 07/02/17 12:00 97.9 88 20 100/53 98 Room Air 97.9 07/02/17 11:47 83 07/02/17 09:30 83 16 Room Air 21 Intake and Output 07/02/17 07/03/17 19:00 07:00 Intake Total 1500 ml 1450 ml Balance 1500 ml 1450 ml Intake Oral 250 ml IV Total 1250 ml 1450 ml Laboratory Tests 07/02/17 18:20: Stool Occult Blood [Pending] 07/03/17 04:00: White Blood Count 8.7, Red Blood Count 3.02L, Hemoglobin 7.9L, Hematocrit 24.4L , Mean Corpuscular Volume 81, Mean Corpuscular Hemoglobin 26.3L, Mean Corpuscular Hemoglobin Concent 32.5, Red Cell Distribution Width 17.4H, Platelet Count 231, Mean Platelet Volume 7.6, Neutrophils (%) (Auto) , Lymphocytes (%) (Auto) , Monocytes (%) (Auto) , Eosinophils (%) (Auto) , Basophils (%) (Auto) , Differential Total Cells Counted 100, Neutrophils % ( Manual) 78H, Lymphocytes % (Manual) 17L, Monocytes % (Manual) 4, Eosinophils % ( Manual) 0, Basophils % (Manual) 0, Band Neutrophils 1, Platelet Estimate Adequate, Platelet Morphology Normal, Hypochromasia 1+, Poikilocytosis , Anisocytosis 1+, Sodium Level 138, Potassium Level 3.2L, Chloride Level 107, Carbon Dioxide Level 19L, Anion Gap 12, Blood Urea Nitrogen 12, Creatinine 0.6, Estimat Glomerular Filtration Rate > 60, Glucose Level 108H, Calcium Level 6.9L , Total Bilirubin 0.7, Aspartate Amino Transf (AST/SGOT) 8L, Alanine Aminotransferase (ALT/SGPT) < 6L, Alkaline Phosphatase 116, Total Protein 5.4L, Albumin 1.1L, Globulin 4.3, Albumin/Globulin Ratio 0.3L Height (Feet): 5 Height (Inches): 5.00 Weight (Pounds): 212 Objective General Appearance: WD/WN, alert Neck: supple Cardiovascular: normal rate Respiratory/Chest: lungs clear, normal breath sounds Abdomen: normal bowel sounds, non tender, soft, no organomegaly Edema: no edema noted Arm (L), no edema noted Arm (R), no edema noted Leg (L), no edema noted Leg (R), no edema noted Pedal (L), no edema noted Pedal (R), no edema noted Generalized Neurologic: motor weakness BONG BRUNNER Jul 03, 2017 08:29
[2017-07-03] MEDS ORDERED: Tigecycline 50 MG in D5W 110 ML IVPB SCH ×2 (09:00→21:00)
[2017-07-03] MEDS ORDERED: NS Irrig 1000ml ONE (10:51)
[2017-07-03] MEDS ORDERED: NS 275ml ONE (10:51)
[2017-07-03] MEDS ORDERED: Tubing Blood Filter IV ONE (10:51)
[2017-07-03] MEDS ORDERED: Tubing IV Secondary IV ONE ×3 (10:51→10:58)
[2017-07-03 12:00] VITALS: BP 101/60
[2017-07-03 16:00] VITALS: BP 125/72
--- NOTE | 2017-07-03 16:56 | General Progress Note ---
Assessment/Plan Assessment/Plan Assessment - Spine osteo - paraspinous abscess - (R) hydro - cholelithiasis - Severe anemia - prior negative EGD and Colonoscopy - abnormal LFT - ? passed a stone - resolving - Hepatosplenomegally, ? early portal HTN - (+) GB stones/sludge - Chronic wounds Recommendations - follow labs for now - Check stool OB - follow CBC - Check hep serologies --> negative - ID f/u - Ortho spine eval - monitor intake Subjective Allergies: Coded Allergies: CEFTRIAXONE (Verified Allergy, Intermediate, SOB, HR-140bpm, face swollen , pt became red, 10/24/15) CODEINE (Verified Allergy, Intermediate, SWELLING, 01/03/11) LATEX (Verified Allergy, Intermediate, SWELLING, 01/03/11) PIPERACILLIN (Verified Allergy, Intermediate, Itching, 08/29/15) 08/29/15 tolerates Ceftaroline TAZOBACTAM (Verified Allergy, Intermediate, Itching, 01/29/15) POLYMYXIN B (Verified Allergy, Mild, Rash, 04/08/16) Suspected allergy reported by VANCOMYCIN (Verified Allergy, Mild, 07/15/14) ASPARAGINASE (Verified Allergy, Unknown, 01/28/14) CEFUROXIME (Unverified Allergy, Unknown, 04/19/16) IRON (Verified Allergy, Unknown, 01/28/14) LATEX, NATURAL RUBBER (Unverified Allergy, Unknown, 06/18/16) Subjective c/o back pain advised re need for aggressive nutritional intake Objective Last 24 Hour Vital Signs Date Time Temp Pulse Resp B/P (MAP) Pulse Ox O2 Delivery O2 Flow Rate FiO2 07/03/17 16:00 97.7 96 20 125/72 96 Room Air 97.7 07/03/17 12:00 88 07/03/17 12:00 97.9 84 22 101/60 96 Room Air 97.9 07/03/17 08:00 97.7 82 20 115/68 96 Room Air 97.7 07/03/17 08:00 86 07/03/17 07:30 88 18 Room Air 21 07/03/17 04:29 98.1 07/03/17 04:00 98.0 88 20 101/62 99 Room Air 98.0 07/03/17 03:59 98.1 07/03/17 03:32 82 07/03/17 00:20 98.1 07/03/17 00:00 98.2 90 18 111/71 97 Room Air 98.2 07/03/17 00:00 89 07/02/17 20:00 106 07/02/17 20:00 98.1 93 20 89/54 96 Room Air 98.1 07/02/17 19:25 86 18 Room Air 21 Intake and Output 07/02/17 07/03/17 19:00 07:00 Intake Total 1500 ml 1450 ml Balance 1500 ml 1450 ml Intake Oral 250 ml IV Total 1250 ml 1450 ml Laboratory Tests 07/02/17 18:20: Stool Occult Blood [Pending] 07/03/17 04:00: White Blood Count 8.7, Red Blood Count 3.02L, Hemoglobin 7.9L, Hematocrit 24.4L , Mean Corpuscular Volume 81, Mean Corpuscular Hemoglobin 26.3L, Mean Corpuscular Hemoglobin Concent 32.5, Red Cell Distribution Width 17.4H, Platelet Count 231, Mean Platelet Volume 7.6, Neutrophils (%) (Auto) , Lymphocytes (%) (Auto) , Monocytes (%) (Auto) , Eosinophils (%) (Auto) , Basophils (%) (Auto) , Differential Total Cells Counted 100, Neutrophils % ( Manual) 78H, Lymphocytes % (Manual) 17L, Monocytes % (Manual) 4, Eosinophils % ( Manual) 0, Basophils % (Manual) 0, Band Neutrophils 1, Platelet Estimate Adequate, Platelet Morphology Normal, Hypochromasia 1+, Poikilocytosis , Anisocytosis 1+, Sodium Level 138, Potassium Level 3.2L, Chloride Level 107, Carbon Dioxide Level 19L, Anion Gap 12, Blood Urea Nitrogen 12, Creatinine 0.6, Estimat Glomerular Filtration Rate > 60, Glucose Level 108H, Calcium Level 6.9L , Total Bilirubin 0.7, Aspartate Amino Transf (AST/SGOT) 8L, Alanine Aminotransferase (ALT/SGPT) < 6L, Alkaline Phosphatase 116, Total Protein 5.4L, Albumin 1.1L, Globulin 4.3, Albumin/Globulin Ratio 0.3L 07/03/17 16:00: Stool Occult Blood [Pending] Height (Feet): 5 Height (Inches): 5.00 Weight (Pounds): 212 Objective Deblilited WW NCAT supple CTA RR Abd soft, (+) colostomy (+) contracture deformities PITER DEAN Jul 03, 2017 16:56
[2017-07-03] MEDS ORDERED: HYDROmorphone 1mg/ml Carpuject IVP PRN (17:30)
[2017-07-03] MEDS ORDERED: Albuterol 90mcg Inhaler 8gm INH PRN (17:30)
[2017-07-03 20:00] VITALS: BP 102/65
[2017-07-03] MEDS: Dyna-Hex 2% Top Sol 2oz TOPIC SCH (20:16)
[2017-07-03] MEDS ORDERED: Zolpidem 5mg tab ORAL PRN (21:00)
[2017-07-04] VITALS: BP 104/54
[2017-07-04 04:00] VITALS: BP 102/57
[2017-07-04 05:55] LABS: HEMATOCRIT 24.4 % (37.0-47.0); HEMOGLOBIN 7.9 G/DL (12.0-16.0); MEAN CORPUSCULAR VOLUME 81 FL (80-99); PLATELET COUNT 223 K/UL (150-450); RED CELL DISTRIBUTION WIDTH 17.4 % (11.6-14.8); WHITE BLOOD COUNT 8.7 K/UL (4.8-10.8)
[2017-07-04 06:09] LABS: ANION GAP 10 mmol/L (5-15); BLOOD UREA NITROGEN 8 mg/dL (7-18); CALCIUM 6.4 MG/DL (8.5-10.1); CARBON DIOXIDE 19 MMOL/L (21-32); CHLORIDE 112 MMOL/L (98-107); CREATININE 0.5 MG/DL (0.55-1.30); POTASSIUM 3.1 MMOL/L (3.5-5.1); SODIUM 141 MMOL/L (136-145)
[2017-07-04 08:00] VITALS: BP 121/63
--- NOTE | 2017-07-04 08:10 | General Progress Note ---
Assessment/Plan Problem List: (1) Osteomyelitis of lumbar spine ICD Codes: M46.26 - Osteomyelitis of vertebra, lumbar region SNOMED: 663449543 (2) Paraspinal abscess ICD Codes: M46.20 - Osteomyelitis of vertebra, site unspecified SNOMED: 10948030222149651 (3) Chronic osteomyelitis of hip ICD Codes: M86.68 - Other chronic osteomyelitis, other site SNOMED: 233490575 (4) Paraplegia ICD Codes: G82.20 - Paraplegia SNOMED: 84787151 Status: stable Assessment/Plan IV abx spine and surgery eval pain rx ivf wound care repeat cbc tomorrow may need transfusion replace k added protein supplements transfer to [facility] for higher level of care Subjective ROS Limited/Unobtainable: No Constitutional: Reports: malaise, weakness HEENT: Reports: no symptoms Cardiovascular: Reports: no symptoms Respiratory: Reports: no symptoms Gastrointestinal/Abdominal: Reports: no symptoms Genitourinary: Reports: no symptoms 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: Reports: pre-existing deficit Endocrine: Reports: no symptoms Hematologic/Lymphatic: Reports: no symptoms Allergies: Coded Allergies: CEFTRIAXONE (Verified Allergy, Intermediate, SOB, HR-140bpm, face swollen , pt became red, 10/24/15) CODEINE (Verified Allergy, Intermediate, SWELLING, 01/03/11) LATEX (Verified Allergy, Intermediate, SWELLING, 01/03/11) PIPERACILLIN (Verified Allergy, Intermediate, Itching, 08/29/15) 08/29/15 tolerates Ceftaroline TAZOBACTAM (Verified Allergy, Intermediate, Itching, 01/29/15) POLYMYXIN B (Verified Allergy, Mild, Rash, 04/08/16) Suspected allergy reported by VANCOMYCIN (Verified Allergy, Mild, 07/15/14) ASPARAGINASE (Verified Allergy, Unknown, 01/28/14) CEFUROXIME (Unverified Allergy, Unknown, 04/19/16) IRON (Verified Allergy, Unknown, 01/28/14) LATEX, NATURAL RUBBER (Unverified Allergy, Unknown, 06/18/16) All Systems: reviewed and negative except above Subjective no events. c/o generalized pain. CT noted. extensive spine osteo and paraspinous abscess as well as iliacus abscess, on abx. plastics noted. awaiting bed at [facility] wants more pain meds but appears comfortable low k noted low protein Objective Last 24 Hour Vital Signs Date Time Temp Pulse Resp B/P (MAP) Pulse Ox O2 Delivery O2 Flow Rate FiO2 07/04/17 07:42 81 18 Room Air 21 07/04/17 04:00 97.5 83 19 102/57 98 Room Air 97.5 07/04/17 03:36 83 07/04/17 00:00 97.4 84 21 104/54 99 Room Air 97.4 07/03/17 20:02 82 07/03/17 20:00 97.2 86 20 102/65 99 Room Air 97.2 07/03/17 19:19 84 18 Room Air 21 07/03/17 16:00 97.7 96 20 125/72 96 Room Air 97.7 07/03/17 16:00 81 07/03/17 12:00 88 07/03/17 12:00 97.9 84 22 101/60 96 Room Air 97.9 Intake and Output 07/03/17 07/04/17 19:00 07:00 Intake Total 1420 ml 1650 ml Output Total 500 ml Balance 920 ml 1650 ml Intake Oral 400 ml 250 ml IV Total 1020 ml 1400 ml Output Urine Total 500 ml Laboratory Tests 07/03/17 16:00: Stool Occult Blood [Pending] 07/04/17 04:20: White Blood Count 8.7, Red Blood Count 3.00L, Hemoglobin 7.9L, Hematocrit 24.4L , Mean Corpuscular Volume 81, Mean Corpuscular Hemoglobin 26.3L, Mean Corpuscular Hemoglobin Concent 32.4, Red Cell Distribution Width 17.4H, Platelet Count 223, Mean Platelet Volume 7.6, Neutrophils (%) (Auto) , Lymphocytes (%) (Auto) , Monocytes (%) (Auto) , Eosinophils (%) (Auto) , Basophils (%) (Auto) , Neutrophils % (Manual) [Pending], Lymphocytes % (Manual) [Pending], Platelet Estimate [Pending], Platelet Morphology [Pending], Sodium Level 141, Potassium Level 3.1L, Chloride Level 112H, Carbon Dioxide Level 19L, Anion Gap 10, Blood Urea Nitrogen 8, Creatinine 0.5L, Estimat Glomerular Filtration Rate > 60, Glucose Level 100, Calcium Level 6.4L Height (Feet): 5 Height (Inches): 5.00 Weight (Pounds): 215 Objective General Appearance: WD/WN, alert Neck: supple Cardiovascular: normal rate Respiratory/Chest: lungs clear, normal breath sounds Abdomen: normal bowel sounds, non tender, soft, no organomegaly Edema: no edema noted Arm (L), no edema noted Arm (R), no edema noted Leg (L), no edema noted Leg (R), no edema noted Pedal (L), no edema noted Pedal (R), no edema noted Generalized Neurologic: motor weakness BONG BRUNNER Jul 04, 2017 08:09
--- NOTE | 2017-07-04 08:34 | Diagnostic Imaging Report ---
Indications: Pleural effusion Technique: Ultrasound used to localize optimal puncture site. Sterile prepping and draping chest. Local anesthesia with 1% lidocaine. Under real-time ultrasound guidance, puncture pleural space using thoracentesis needle. Stylet removed. Catheter placed to vacuum bottle suction. Total 350 milliliters of cloudy yellow fluid aspirated. A specimen was sent to the lab. Patient tolerated procedure well, without immediate complication. Findings: Followup sonography demonstrates partial resolution of the pleural fluid Impression: Successful ultrasound-guided thoracentesis, yielding 350 milliliters of cloudy yellow fluid
[2017-07-04] MEDS ORDERED: DAPTOmycin 550 MG in NS 50 ML IV SCH ×4 (10:00)
[2017-07-04 12:00] VITALS: BP 102/56
[2017-07-04 16:00] VITALS: BP 107/61
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
--- NOTE | 2017-07-04 18:19 | General Progress Note ---
Assessment/Plan Status: stable Assessment/Plan MDD anxiety d/o -lexapro 10mg qam Subjective Date patient seen: Jul 04, 2017 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: Reports: anxiety, depressed, emotional problems - the pt is uncoopertive with staff and refusing wound care. irritable and depressed Allergies: Coded Allergies: CEFTRIAXONE (Verified Allergy, Intermediate, SOB, HR-140bpm, face swollen , pt became red, 10/24/15) CODEINE (Verified Allergy, Intermediate, SWELLING, 01/03/11) LATEX (Verified Allergy, Intermediate, SWELLING, 01/03/11) PIPERACILLIN (Verified Allergy, Intermediate, Itching, 08/29/15) 08/29/15 tolerates Ceftaroline TAZOBACTAM (Verified Allergy, Intermediate, Itching, 01/29/15) POLYMYXIN B (Verified Allergy, Mild, Rash, 04/08/16) Suspected allergy reported by VANCOMYCIN (Verified Allergy, Mild, 07/15/14) ASPARAGINASE (Verified Allergy, Unknown, 01/28/14) CEFUROXIME (Unverified Allergy, Unknown, 04/19/16) IRON (Verified Allergy, Unknown, 01/28/14) LATEX, NATURAL RUBBER (Unverified Allergy, Unknown, 06/18/16) Objective Last 24 Hour Vital Signs Date Time Temp Pulse Resp B/P (MAP) Pulse Ox O2 Delivery O2 Flow Rate FiO2 07/04/17 17:52 97.5 07/04/17 16:00 97.5 77 18 107/61 97 Room Air 97.5 07/04/17 15:14 81 07/04/17 13:52 97.0 07/04/17 13:22 97.0 07/04/17 12:00 97.0 90 20 102/56 98 Room Air 97.0 07/04/17 11:52 81 07/04/17 09:23 96.8 07/04/17 08:00 96.8 78 20 121/63 98 Room Air 96.8 07/04/17 07:57 67 07/04/17 07:42 81 18 Room Air 21 07/04/17 04:00 97.5 83 19 102/57 98 Room Air 97.5 07/04/17 03:36 83 07/04/17 00:00 97.4 84 21 104/54 99 Room Air 97.4 07/03/17 20:02 82 07/03/17 20:00 97.2 86 20 102/65 99 Room Air 97.2 07/03/17 19:19 84 18 Room Air 21 Intake and Output 07/03/17 07/04/17 19:00 07:00 Intake Total 1420 ml 1650 ml Output Total 500 ml Balance 920 ml 1650 ml Intake Oral 400 ml 250 ml IV Total 1020 ml 1400 ml Output Urine Total 500 ml Laboratory Tests 07/04/17 04:20: White Blood Count 8.7, Red Blood Count 3.00L, Hemoglobin 7.9L, Hematocrit 24.4L , Mean Corpuscular Volume 81, Mean Corpuscular Hemoglobin 26.3L, Mean Corpuscular Hemoglobin Concent 32.4, Red Cell Distribution Width 17.4H, Platelet Count 223, Mean Platelet Volume 7.6, Neutrophils (%) (Auto) , Lymphocytes (%) (Auto) , Monocytes (%) (Auto) , Eosinophils (%) (Auto) , Basophils (%) (Auto) , Differential Total Cells Counted 100, Neutrophils % ( Manual) 86H, Lymphocytes % (Manual) 12L, Monocytes % (Manual) 1, Eosinophils % ( Manual) 1, Basophils % (Manual) 0, Band Neutrophils 0, Platelet Estimate Adequate, Platelet Morphology Normal, Anisocytosis 1+, Sodium Level 141, Potassium Level 3.1L, Chloride Level 112H, Carbon Dioxide Level 19L, Anion Gap 10, Blood Urea Nitrogen 8, Creatinine 0.5L, Estimat Glomerular Filtration Rate > 60, Glucose Level 100, Calcium Level 6.4L Height (Feet): 5 Height (Inches): 5.00 Weight (Pounds): 215 General Appearance: no apparent distress, alert, overweight Neurologic: alert, oriented x 3, responsive, depressed affect Michael Feng M.D. Jul 04, 2017 18:19
--- NOTE | 2017-07-04 18:25 | Psych Consult Progress Note ---
Psych Consult Progress Note Consult 07/03/17 the pt is uncooperative and irritable Assessment/Plan MDD anxiety d/o -lexapro 10mg qam Vital Signs Last 24 Hour Vital Signs Date Time Temp Pulse Resp B/P (MAP) Pulse Ox O2 Delivery O2 Flow Rate FiO2 07/04/17 17:52 97.5 07/04/17 16:00 97.5 77 18 107/61 97 Room Air 97.5 07/04/17 15:14 81 07/04/17 13:52 97.0 07/04/17 13:22 97.0 07/04/17 12:00 97.0 90 20 102/56 98 Room Air 97.0 07/04/17 11:52 81 07/04/17 09:23 96.8 07/04/17 08:00 96.8 78 20 121/63 98 Room Air 96.8 07/04/17 07:57 67 07/04/17 07:42 81 18 Room Air 21 07/04/17 04:00 97.5 83 19 102/57 98 Room Air 97.5 07/04/17 03:36 83 07/04/17 00:00 97.4 84 21 104/54 99 Room Air 97.4 07/03/17 20:02 82 07/03/17 20:00 97.2 86 20 102/65 99 Room Air 97.2 07/03/17 19:19 84 18 Room Air 21 Labs Laboratory Tests Test 07/04/17 04:20 White Blood Count 8.7 K/UL (4.8-10.8) Red Blood Count 3.00 M/UL (4.20-5.40) L Hemoglobin 7.9 G/DL (12.0-16.0) L Hematocrit 24.4 % (37.0-47.0) L Mean Corpuscular Volume 81 FL (80-99) Mean Corpuscular Hemoglobin 26.3 PG (27.0-31.0) L Mean Corpuscular Hemoglobin Concent 32.4 G/DL (32.0-36.0) Red Cell Distribution Width 17.4 % (11.6-14.8) H Platelet Count 223 K/UL (150-450) Mean Platelet Volume 7.6 FL (6.5-10.1) Neutrophils (%) (Auto) % (45.0-75.0) Lymphocytes (%) (Auto) % (20.0-45.0) Monocytes (%) (Auto) % (1.0-10.0) Eosinophils (%) (Auto) % (0.0-3.0) Basophils (%) (Auto) % (0.0-2.0) Differential Total Cells Counted 100 Neutrophils % (Manual) 86 % (45-75) H Lymphocytes % (Manual) 12 % (20-45) L Monocytes % (Manual) 1 % (1-10) Eosinophils % (Manual) 1 % (0-3) Basophils % (Manual) 0 % (0-2) Band Neutrophils 0 % (0-8) Platelet Estimate Adequate Platelet Morphology Normal Anisocytosis 1+ Sodium Level 141 MMOL/L (136-145) Potassium Level 3.1 MMOL/L (3.5-5.1) L Chloride Level 112 MMOL/L (98-107) H Carbon Dioxide Level 19 MMOL/L (21-32) L Anion Gap 10 mmol/L (5-15) Blood Urea Nitrogen 8 mg/dL (7-18) Creatinine 0.5 MG/DL (0.55-1.30) L Estimat Glomerular Filtration Rate > 60 mL/min (>60) Glucose Level 100 MG/DL (74-106) Calcium Level 6.4 MG/DL (8.5-10.1) L Medications Current Medications Medications (Trade) Dose Ordered Sig/Pineda Route PRN Reason Start Time Stop Time Status Last Admin Dose Admin Acetaminophen (Tylenol) 650 mg Q6H PRN ORAL Mild Pain/Temp > 100.5 07/03/17 17:30 07/28/17 17:19 Albuterol Sulfate (Proventil MDI) 2 puff Q4H PRN INH Shortness of Breath 07/03/17 17:30 07/28/17 17:19 Chlorhexidine Gluconate (Nereida-Hex 2%) 1 applic DAILY@1999 TOPIC 07/03/17 20:00 07/28/17 19:59 07/03/17 20:16 Daptomycin 550 mg/ Sodium Chloride 50 ml @ 100 mls/hr Q24H IV 07/04/17 10:00 07/11/17 09:59 07/04/17 10:45 Escitalopram Oxalate (Lexapro) 10 mg DAILY ORAL 07/04/17 09:00 07/30/17 08:59 Hydromorphone HCl (Dilaudid) 1 mg Q3H PRN IVP Severe Pain (Pain Scale 7-10) 07/03/17 22:00 07/05/17 17:20 07/04/17 17:52 Levofloxacin 100 ml @ 100 mls/hr Q24H IVPB 07/04/17 20:00 07/06/17 23:59 Metronidazole 100 ml @ 100 mls/hr Q8HR IVPB 07/04/17 22:00 07/06/17 23:59 Ondansetron HCl (Zofran) 4 mg Q6H PRN IVP Nausea & Vomiting 07/03/17 17:30 07/28/17 17:20 Pantoprazole (Protonix) 40 mg ACBREAKFAST ORAL 07/04/17 06:30 07/28/17 06:29 07/04/17 06:22 Sodium Chloride 1,000 ml @ 100 mls/hr Q10H IV 07/03/17 17:00 07/28/17 17:19 07/04/17 13:00 Zolpidem Tartrate (Ambien) 5 mg HSPRN PRN ORAL Insomnia 07/03/17 21:00 07/06/17 20:59 Michael Feng M.D. Jul 04, 2017 18:25
--- NOTE | 2017-07-04 19:05 | Cardiology Report ---
APPROVED REPORT EXAM: Two-dimensional and M-mode echocardiogram with Doppler and color Doppler. INDICATION VEGITATION M-Mode DIMENSIONS IVSd1.2 (0.7-1.1cm)Left Atrium (MM)2.9 (1.6-4.0cm) LVDd4.6 (3.5-5.6cm)Aortic Root3.6 (2.0-3.7cm) PWd1.3 (0.7-1.1cm)Aortic Cusp Exc.2.2 (1.5-2.0cm) IVSs1.7 cm LVDs3.0 (2.5-4.0cm) PWs1.9 cm Normal left ventricular chamber size, systolic function and wall motion. Left ventricular ejection fraction estimated to be 65-70% No evidence of left ventricular hypertrophy . No evidence of pericardial effusion All other chamber sizes is within normal limits. Focal aortic valve sclerosis with adequate cusp excursion. Mildly Thickened mitral valve leaflets with normal excursion. Mildly Mitral annulus and aortic root calcification. Normal Pulmonic valve structure. Normal tricuspid valve structure. IVC at size 2.3 with physiologic collapse. A color flow and spectral Doppler study was performed and revealed: No aortic regurgitation. Mild mitral regurgitation. Normal left ventricular diastolic function. Mild tricuspid regurgitation. Tricuspid systolic velocities suggests peak right ventricular systolic pressure of 45 mmHg, consistent with mild pulmonary hypertension. Trace Pulmonic regurgitation present.
[2017-07-04 20:00] VITALS: BP 96/62
[2017-07-04] MEDS: Dyna-Hex 2% Top Sol 2oz TOPIC SCH (21:04)
--- NOTE | 2017-07-04 22:21 | General Progress Note ---
Assessment/Plan Assessment/Plan Assessment - malnutrition, albumin 1.2 - Spine osteo - paraspinous abscess - (R) hydro - cholelithiasis - Severe anemia - prior negative EGD and Colonoscopy - abnormal LFT - ? passed a stone - resolving - Hepatosplenomegally, ? early portal HTN - (+) GB stones/sludge - Chronic wounds Recommendations - Push po / protein supplements - follow labs for now - Check stool OB - follow CBC - Check hep serologies --> negative - ID f/u - Ortho spine eval - monitor intake Subjective Allergies: Coded Allergies: CEFTRIAXONE (Verified Allergy, Intermediate, SOB, HR-140bpm, face swollen , pt became red, 10/24/15) CODEINE (Verified Allergy, Intermediate, SWELLING, 01/03/11) LATEX (Verified Allergy, Intermediate, SWELLING, 01/03/11) PIPERACILLIN (Verified Allergy, Intermediate, Itching, 08/29/15) 08/29/15 tolerates Ceftaroline TAZOBACTAM (Verified Allergy, Intermediate, Itching, 01/29/15) POLYMYXIN B (Verified Allergy, Mild, Rash, 04/08/16) Suspected allergy reported by VANCOMYCIN (Verified Allergy, Mild, 07/15/14) ASPARAGINASE (Verified Allergy, Unknown, 01/28/14) CEFUROXIME (Unverified Allergy, Unknown, 04/19/16) IRON (Verified Allergy, Unknown, 01/28/14) LATEX, NATURAL RUBBER (Unverified Allergy, Unknown, 06/18/16) Subjective c/o back pain advised re need for aggressive nutritional intake advised albumin low Objective Last 24 Hour Vital Signs Date Time Temp Pulse Resp B/P (MAP) Pulse Ox O2 Delivery O2 Flow Rate FiO2 07/04/17 18:22 97.5 07/04/17 17:52 97.5 07/04/17 16:00 97.5 77 18 107/61 97 Room Air 97.5 07/04/17 15:14 81 07/04/17 13:22 97.0 07/04/17 12:00 97.0 90 20 102/56 98 Room Air 97.0 07/04/17 11:52 81 07/04/17 09:23 96.8 07/04/17 08:00 96.8 78 20 121/63 98 Room Air 96.8 07/04/17 07:57 67 07/04/17 07:42 81 18 Room Air 21 07/04/17 04:00 97.5 83 19 102/57 98 Room Air 97.5 07/04/17 03:36 83 07/04/17 00:00 97.4 84 21 104/54 99 Room Air 97.4 Intake and Output 07/03/17 07/04/17 19:00 07:00 Intake Total 1420 ml 1650 ml Output Total 500 ml Balance 920 ml 1650 ml Intake Oral 400 ml 250 ml IV Total 1020 ml 1400 ml Output Urine Total 500 ml Laboratory Tests 07/04/17 04:20: White Blood Count 8.7, Red Blood Count 3.00L, Hemoglobin 7.9L, Hematocrit 24.4L , Mean Corpuscular Volume 81, Mean Corpuscular Hemoglobin 26.3L, Mean Corpuscular Hemoglobin Concent 32.4, Red Cell Distribution Width 17.4H, Platelet Count 223, Mean Platelet Volume 7.6, Neutrophils (%) (Auto) , Lymphocytes (%) (Auto) , Monocytes (%) (Auto) , Eosinophils (%) (Auto) , Basophils (%) (Auto) , Differential Total Cells Counted 100, Neutrophils % ( Manual) 86H, Lymphocytes % (Manual) 12L, Monocytes % (Manual) 1, Eosinophils % ( Manual) 1, Basophils % (Manual) 0, Band Neutrophils 0, Platelet Estimate Adequate, Platelet Morphology Normal, Anisocytosis 1+, Sodium Level 141, Potassium Level 3.1L, Chloride Level 112H, Carbon Dioxide Level 19L, Anion Gap 10, Blood Urea Nitrogen 8, Creatinine 0.5L, Estimat Glomerular Filtration Rate > 60, Glucose Level 100, Calcium Level 6.4L Height (Feet): 5 Height (Inches): 5.00 Weight (Pounds): 215 Objective Deblilited WW NCAT supple CTA RR Abd soft, (+) colostomy (+) contracture deformities JERMAINESTIVENYURY Jul 04, 2017 22:20
[2017-07-05] MEDS ORDERED: Albuterol 90mcg Inhaler 8gm INH PRN ×2 (01:30→10:00)
[2017-07-05 08:00] VITALS: BP 95/56
[2017-07-05] MEDS: DAPTOmycin 550 MG in NS 50 ML IV SCH (10:13)
--- NOTE | 2017-07-05 10:33 | General Progress Note ---
Assessment/Plan Problem List: (1) Osteomyelitis of lumbar spine ICD Codes: M46.26 - Osteomyelitis of vertebra, lumbar region SNOMED: 394435889 (2) Paraspinal abscess ICD Codes: M46.20 - Osteomyelitis of vertebra, site unspecified SNOMED: 70785109573995052 (3) Chronic osteomyelitis of hip ICD Codes: M86.68 - Other chronic osteomyelitis, other site SNOMED: 101206793 (4) Paraplegia ICD Codes: G82.20 - Paraplegia SNOMED: 22045113 Status: stable, progressing Assessment/Plan IV abx spine and surgery eval pain rx ivf wound care repeat cbc and labs may need transfusion added protein supplements transfer to [facility] for higher level of care Subjective ROS Limited/Unobtainable: No Constitutional: Reports: malaise, weakness HEENT: Reports: no symptoms Cardiovascular: Reports: no symptoms Respiratory: Reports: no symptoms Gastrointestinal/Abdominal: Reports: no symptoms Genitourinary: Reports: no symptoms 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: Reports: pre-existing deficit Endocrine: Reports: no symptoms Hematologic/Lymphatic: Reports: anemia Allergies: Coded Allergies: CEFTRIAXONE (Verified Allergy, Intermediate, SOB, HR-140bpm, face swollen , pt became red, 10/24/15) CODEINE (Verified Allergy, Intermediate, SWELLING, 01/03/11) LATEX (Verified Allergy, Intermediate, SWELLING, 01/03/11) PIPERACILLIN (Verified Allergy, Intermediate, Itching, 08/29/15) 08/29/15 tolerates Ceftaroline TAZOBACTAM (Verified Allergy, Intermediate, Itching, 01/29/15) POLYMYXIN B (Verified Allergy, Mild, Rash, 04/08/16) Suspected allergy reported by VANCOMYCIN (Verified Allergy, Mild, 07/15/14) ASPARAGINASE (Verified Allergy, Unknown, 01/28/14) CEFUROXIME (Unverified Allergy, Unknown, 04/19/16) IRON (Verified Allergy, Unknown, 01/28/14) LATEX, NATURAL RUBBER (Unverified Allergy, Unknown, 06/18/16) All Systems: reviewed and negative except above Subjective no events. w/o complaints except pain. no fever or chills. no chest pain. still no bed at [facility]. Objective Last 24 Hour Vital Signs Date Time Temp Pulse Resp B/P (MAP) Pulse Ox O2 Delivery O2 Flow Rate FiO2 07/05/17 08:25 77 20 Room Air 21 07/05/17 08:00 97.9 89 20 95/56 Room Air 97.9 07/05/17 07:12 98.4 07/05/17 04:15 98.4 07/05/17 04:00 91 07/05/17 00:00 92 07/04/17 20:00 98.4 83 18 96/62 97 Room Air 98.4 07/04/17 20:00 92 07/04/17 20:00 90 20 Room Air 21 07/04/17 18:22 97.5 07/04/17 17:52 97.5 07/04/17 16:00 97.5 77 18 107/61 97 Room Air 97.5 07/04/17 15:14 81 07/04/17 13:22 97.0 07/04/17 12:00 97.0 90 20 102/56 98 Room Air 97.0 07/04/17 11:52 81 Intake and Output 07/04/17 07/05/17 19:00 07:00 Intake Total 1750 ml 250 ml Output Total 0 ml Balance 1750 ml 250 ml Intake Oral 600 ml IV Total 1150 ml 250 ml Output Urine Total 0 ml Height (Feet): 5 Height (Inches): 5.00 Weight (Pounds): 215 Objective General Appearance: WD/WN, alert Neck: supple Cardiovascular: normal rate Respiratory/Chest: lungs clear, normal breath sounds Abdomen: normal bowel sounds, non tender, soft, no organomegaly Edema: no edema noted Arm (L), no edema noted Arm (R), no edema noted Leg (L), no edema noted Leg (R), no edema noted Pedal (L), no edema noted Pedal (R), no edema noted Generalized Neurologic: motor weakness BONG BRUNNER Jul 05, 2017 10:33
[2017-07-05 11:10] LABS: BASOPHILS % (AUTO) 0.3 % (0.0-2.0); EOSINOPHILS % (AUTO) 0.7 % (0.0-3.0); HEMATOCRIT 27.4 % (37.0-47.0); HEMOGLOBIN 8.6 G/DL (12.0-16.0); LYMPHOCYTES % (AUTO) 12.7 % (20.0-45.0); MEAN CORPUSCULAR VOLUME 81 FL (80-99); MONOCYTES % (AUTO) 2.3 % (1.0-10.0); NEUTROPHILS % (AUTO) 83.9 % (45.0-75.0); PLATELET COUNT 254 K/UL (150-450); RED BLOOD COUNT 3.39 M/UL (4.20-5.40); RED CELL DISTRIBUTION WIDTH 17.6 % (11.6-14.8); WHITE BLOOD COUNT 13.3 K/UL (4.8-10.8)
[2017-07-05 11:30] LABS: ALANINE AMINOTRANSFERASE < 6 U/L (12-78); ALBUMIN 1.2 G/DL (3.4-5.0); ALBUMIN/GLOBULIN RATIO 0.3 (1.0-2.7); ALKALINE PHOSPHATASE 88 U/L (46-116); ANION GAP 9 mmol/L (5-15); ASPARTATE AMINO TRANSFERASE 6 U/L (15-37); BILIRUBIN,TOTAL 0.5 MG/DL (0.2-1.0); BLOOD UREA NITROGEN 7 mg/dL (7-18); CALCIUM 7.3 MG/DL (8.5-10.1); CARBON DIOXIDE 22 MMOL/L (21-32); CHLORIDE 106 MMOL/L (98-107); CREATININE 0.6 MG/DL (0.55-1.30); POTASSIUM 3.3 MMOL/L (3.5-5.1); SODIUM 137 MMOL/L (136-145)
[2017-07-05 12:00] VITALS: BP 109/66
--- NOTE | 2017-07-05 13:13 | General Progress Note ---
Assessment/Plan Assessment/Plan MDD anxiety d/o the pt lack capacity d/w cathy who is her sister and she was somewhat hostile d/w Dr. Johnston who stated that the situation is urgent -lexapro 10mg qam -the sister is the next of harihta Subjective Date patient seen: Jul 05, 2017 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: Reports: anxiety, depressed, emotional problems Allergies: Coded Allergies: CEFTRIAXONE (Verified Allergy, Intermediate, SOB, HR-140bpm, face swollen , pt became red, 10/24/15) CODEINE (Verified Allergy, Intermediate, SWELLING, 01/03/11) LATEX (Verified Allergy, Intermediate, SWELLING, 01/03/11) PIPERACILLIN (Verified Allergy, Intermediate, Itching, 08/29/15) 08/29/15 tolerates Ceftaroline TAZOBACTAM (Verified Allergy, Intermediate, Itching, 01/29/15) POLYMYXIN B (Verified Allergy, Mild, Rash, 04/08/16) Suspected allergy reported by VANCOMYCIN (Verified Allergy, Mild, 07/15/14) ASPARAGINASE (Verified Allergy, Unknown, 01/28/14) CEFUROXIME (Unverified Allergy, Unknown, 04/19/16) IRON (Verified Allergy, Unknown, 01/28/14) LATEX, NATURAL RUBBER (Unverified Allergy, Unknown, 06/18/16) Subjective the pt is illogical and uncooperative the pt used profanity for placing her on medication. the pt is hostile every time i go to evaluate her. the pt is unable to understand process communicate nor appreciate the info given to her in a rational manner. Objective Last 24 Hour Vital Signs Date Time Temp Pulse Resp B/P (MAP) Pulse Ox O2 Delivery O2 Flow Rate FiO2 07/05/17 08:25 77 20 Room Air 21 07/05/17 08:00 97.9 89 20 95/56 Room Air 97.9 07/05/17 07:12 98.4 07/05/17 04:15 98.4 07/05/17 04:00 91 07/05/17 00:00 92 07/04/17 20:00 98.4 83 18 96/62 97 Room Air 98.4 07/04/17 20:00 92 07/04/17 20:00 90 20 Room Air 21 07/04/17 18:22 97.5 07/04/17 17:52 97.5 07/04/17 16:00 97.5 77 18 107/61 97 Room Air 97.5 07/04/17 15:14 81 07/04/17 13:22 97.0 Intake and Output 07/04/17 07/05/17 19:00 07:00 Intake Total 1750 ml 250 ml Output Total 0 ml Balance 1750 ml 250 ml Intake Oral 600 ml IV Total 1150 ml 250 ml Output Urine Total 0 ml Laboratory Tests 07/05/17 06:00: White Blood Count 13.3#H, Red Blood Count 3.39L, Hemoglobin 8.6L, Hematocrit 27.4L, Mean Corpuscular Volume 81, Mean Corpuscular Hemoglobin 25.3L, Mean Corpuscular Hemoglobin Concent 31.3L, Red Cell Distribution Width 17.6H, Platelet Count 254, Mean Platelet Volume 8.4, Neutrophils (%) (Auto) 83.9H, Lymphocytes (%) (Auto) 12.7L, Monocytes (%) (Auto) 2.3, Eosinophils (%) (Auto) 0.7, Basophils (%) (Auto) 0.3, Sodium Level 137, Potassium Level 3.3L, Chloride Level 106, Carbon Dioxide Level 22, Anion Gap 9, Blood Urea Nitrogen 7, Creatinine 0.6, Estimat Glomerular Filtration Rate > 60, Glucose Level 102, Calcium Level 7.3L, Total Bilirubin 0.5, Aspartate Amino Transf (AST/SGOT) 6L, Alanine Aminotransferase (ALT/SGPT) < 6L, Alkaline Phosphatase 88, Total Protein 5.9L, Albumin 1.2L, Globulin 4.7, Albumin/Globulin Ratio 0.3L Height (Feet): 5 Height (Inches): 5.00 Weight (Pounds): 215 General Appearance: no apparent distress, alert Neurologic: oriented x 3, responsive, depressed affect Michael Feng M.D. Jul 05, 2017 13:13
[2017-07-05] MEDS ORDERED: NS 275ml ONE (15:41)
[2017-07-05] MEDS ORDERED: Tubing IV Secondary IV ONE (15:41)
[2017-07-05 16:00] VITALS: BP 96/56
[2017-07-05] MEDS ORDERED: HYDROmorphone 1mg/ml Carpuject IVP PRN ×2 (17:45→18:00)
[2017-07-05 20:00] VITALS: BP 98/60
[2017-07-05] MEDS ORDERED: Zolpidem 5mg tab ORAL PRN (21:00)
[2017-07-05] MEDS: Dyna-Hex 2% Top Sol 2oz TOPIC SCH (21:42)
--- NOTE | 2017-07-05 22:47 | General Progress Note ---
Assessment/Plan Assessment/Plan Assessment - malnutrition, albumin 1.2 - Spine osteo - paraspinous abscess - (R) hydro - cholelithiasis - Severe anemia - prior negative EGD and Colonoscopy - abnormal LFT - ? passed a stone - resolving - Hepatosplenomegally, ? early portal HTN - (+) GB stones/sludge - Chronic wounds Recommendations - Push po / protein supplements - follow labs for now - Check stool OB - follow CBC - Check hep serologies --> negative - ID f/u - Ortho spine eval - monitor intake Subjective Allergies: Coded Allergies: CEFTRIAXONE (Verified Allergy, Intermediate, SOB, HR-140bpm, face swollen , pt became red, 10/24/15) CODEINE (Verified Allergy, Intermediate, SWELLING, 01/03/11) LATEX (Verified Allergy, Intermediate, SWELLING, 01/03/11) PIPERACILLIN (Verified Allergy, Intermediate, Itching, 08/29/15) 08/29/15 tolerates Ceftaroline TAZOBACTAM (Verified Allergy, Intermediate, Itching, 01/29/15) POLYMYXIN B (Verified Allergy, Mild, Rash, 04/08/16) Suspected allergy reported by VANCOMYCIN (Verified Allergy, Mild, 07/15/14) ASPARAGINASE (Verified Allergy, Unknown, 01/28/14) CEFUROXIME (Unverified Allergy, Unknown, 04/19/16) IRON (Verified Allergy, Unknown, 01/28/14) LATEX, NATURAL RUBBER (Unverified Allergy, Unknown, 06/18/16) Subjective trying to eat advised re need for aggressive nutritional intake advised albumin low Objective Last 24 Hour Vital Signs Date Time Temp Pulse Resp B/P (MAP) Pulse Ox O2 Delivery O2 Flow Rate FiO2 07/05/17 19:30 70 20 Room Air 21 07/05/17 16:00 91 07/05/17 16:00 98.6 99 21 96/56 Room Air 98.6 07/05/17 12:00 98.1 101 19 109/66 Room Air 98.1 07/05/17 12:00 103 07/05/17 10:55 98.1 07/05/17 08:25 77 20 Room Air 21 07/05/17 08:00 97.9 89 20 95/56 Room Air 97.9 07/05/17 08:00 82 07/05/17 07:12 98.4 07/05/17 04:00 91 07/05/17 00:00 92 Intake and Output 07/04/17 07/05/17 19:00 07:00 Intake Total 1750 ml 250 ml Output Total 0 ml Balance 1750 ml 250 ml Intake Oral 600 ml IV Total 1150 ml 250 ml Output Urine Total 0 ml Laboratory Tests 07/05/17 06:00: White Blood Count 13.3#H, Red Blood Count 3.39L, Hemoglobin 8.6L, Hematocrit 27.4L, Mean Corpuscular Volume 81, Mean Corpuscular Hemoglobin 25.3L, Mean Corpuscular Hemoglobin Concent 31.3L, Red Cell Distribution Width 17.6H, Platelet Count 254, Mean Platelet Volume 8.4, Neutrophils (%) (Auto) 83.9H, Lymphocytes (%) (Auto) 12.7L, Monocytes (%) (Auto) 2.3, Eosinophils (%) (Auto) 0.7, Basophils (%) (Auto) 0.3, Sodium Level 137, Potassium Level 3.3L, Chloride Level 106, Carbon Dioxide Level 22, Anion Gap 9, Blood Urea Nitrogen 7, Creatinine 0.6, Estimat Glomerular Filtration Rate > 60, Glucose Level 102, Calcium Level 7.3L, Total Bilirubin 0.5, Aspartate Amino Transf (AST/SGOT) 6L, Alanine Aminotransferase (ALT/SGPT) < 6L, Alkaline Phosphatase 88, Total Protein 5.9L, Albumin 1.2L, Globulin 4.7, Albumin/Globulin Ratio 0.3L Height (Feet): 5 Height (Inches): 5.00 Weight (Pounds): 215 Objective Deblilited WW NCAT supple CTA RR Abd soft, (+) colostomy (+) contracture deformities JOSE LPITER TRENT Jul 05, 2017 22:47
[2017-07-06] VITALS: BP 90/44
[2017-07-06 08:00] VITALS: BP 110/59
[2017-07-06 08:31] LABS: HEMATOCRIT 26.6 % (37.0-47.0); HEMOGLOBIN 8.5 G/DL (12.0-16.0); MEAN CORPUSCULAR VOLUME 81 FL (80-99); PLATELET COUNT 239 K/UL (150-450); RED BLOOD COUNT 3.28 M/UL (4.20-5.40); RED CELL DISTRIBUTION WIDTH 17.4 % (11.6-14.8)
[2017-07-06 08:39] LABS: ALANINE AMINOTRANSFERASE < 6 U/L (12-78); ALBUMIN 1.2 G/DL (3.4-5.0); ALBUMIN/GLOBULIN RATIO 0.3 (1.0-2.7); ALKALINE PHOSPHATASE 88 U/L (46-116); ANION GAP 6 mmol/L (5-15); ASPARTATE AMINO TRANSFERASE 6 U/L (15-37); BILIRUBIN,TOTAL 0.5 MG/DL (0.2-1.0); BLOOD UREA NITROGEN 6 mg/dL (7-18); CALCIUM 7.6 MG/DL (8.5-10.1); CARBON DIOXIDE 25 MMOL/L (21-32); CHLORIDE 107 MMOL/L (98-107); CREATININE 0.7 MG/DL (0.55-1.30); POTASSIUM 3.2 MMOL/L (3.5-5.1); SODIUM 138 MMOL/L (136-145)
--- NOTE | 2017-07-06 10:13 | General Progress Note ---
Assessment/Plan Assessment/Plan ASSESSMENT AND RECOMMENDATION: 1. Left femur osteomyelitis per history 2. Bilateral posterior thigh chronic wounds. 3. Chronic bilateral hip osteomyelitis 4. anemia 5. possible gib 6. severe protein calorie malnutrition 7. chronic pain syndrome 8. transaminitis 9. sinus tachycardia 10. fevers 11. sepsis and positive bcx 12. multiple abcessess 13. pleural effusions 13. possible acute osteo PLAN monitor labs for change will follow up on update to transfer to higher level of care on IV antibiotics will need drainage procedure vs surgical procedures pending bed availability thoracentesis completed ID evaluation noted nutrition pain control guarded impression, plan, and exam edited and reviewed in detail care discussed with RN Subjective Allergies: Coded Allergies: CEFTRIAXONE (Verified Allergy, Intermediate, SOB, HR-140bpm, face swollen , pt became red, 10/24/15) CODEINE (Verified Allergy, Intermediate, SWELLING, 01/03/11) LATEX (Verified Allergy, Intermediate, SWELLING, 01/03/11) PIPERACILLIN (Verified Allergy, Intermediate, Itching, 08/29/15) 08/29/15 tolerates Ceftaroline TAZOBACTAM (Verified Allergy, Intermediate, Itching, 01/29/15) POLYMYXIN B (Verified Allergy, Mild, Rash, 04/08/16) Suspected allergy reported by MD VANCOMYCIN (Verified Allergy, Mild, 07/15/14) ASPARAGINASE (Verified Allergy, Unknown, 01/28/14) CEFUROXIME (Unverified Allergy, Unknown, 04/19/16) IRON (Verified Allergy, Unknown, 01/28/14) LATEX, NATURAL RUBBER (Unverified Allergy, Unknown, 06/18/16) Subjective events noted reviewed all d/w patient slow improvement noted Objective Last 24 Hour Vital Signs Date Time Temp Pulse Resp B/P (MAP) Pulse Ox O2 Delivery O2 Flow Rate FiO2 07/06/17 08:00 97.1 95 19 110/59 Room Air 97.1 07/06/17 07:50 93 20 Room Air 21 07/06/17 04:00 96 07/06/17 00:00 102 07/06/17 00:00 98.0 104 20 90/44 98 Room Air 98.0 07/05/17 20:00 92 07/05/17 20:00 98.0 95 20 98/60 98 Room Air 98.0 07/05/17 19:30 70 20 Room Air 21 07/05/17 16:00 91 07/05/17 16:00 98.6 99 21 96/56 Room Air 98.6 07/05/17 12:00 98.1 101 19 109/66 Room Air 98.1 07/05/17 12:00 103 07/05/17 10:55 98.1 Intake and Output 07/05/17 07/06/17 19:00 07:00 Intake Total 765 ml 1000 ml Balance 765 ml 1000 ml Intake Oral 765 ml IV Total 1000 ml # Voids 2 # Bowel Movements 1 Laboratory Tests 07/06/17 07:30: White Blood Count 16.0H, Red Blood Count 3.28L, Hemoglobin 8.5L, Hematocrit 26.6L, Mean Corpuscular Volume 81, Mean Corpuscular Hemoglobin 25.9L, Mean Corpuscular Hemoglobin Concent 32.0, Red Cell Distribution Width 17.4H, Platelet Count 239, Mean Platelet Volume 7.6, Neutrophils (%) (Auto) , Lymphocytes (%) (Auto) , Monocytes (%) (Auto) , Eosinophils (%) (Auto) , Basophils (%) (Auto) , Differential Total Cells Counted 100, Neutrophils % ( Manual) 88H, Lymphocytes % (Manual) 9L, Monocytes % (Manual) 3, Eosinophils % ( Manual) 0, Basophils % (Manual) 0, Band Neutrophils 0, Platelet Estimate Adequate, Platelet Morphology Normal, Hypochromasia 1+, Anisocytosis 1+, Sodium Level 138, Potassium Level 3.2L, Chloride Level 107, Carbon Dioxide Level 25, Anion Gap 6, Blood Urea Nitrogen 6L, Creatinine 0.7, Estimat Glomerular Filtration Rate > 60, Glucose Level 121H, Calcium Level 7.6L, Total Bilirubin 0.5, Aspartate Amino Transf (AST/SGOT) 6L, Alanine Aminotransferase (ALT/SGPT) < 6L, Alkaline Phosphatase 88, Total Protein 5.8L, Albumin 1.2L, Globulin 4.6, Albumin/Globulin Ratio 0.3L Height (Feet): 5 Height (Inches): 5.00 Weight (Pounds): 222 Objective WDWN comfortable and alert NAD reduced breath sounds bilaterally without rhonchi or wheeze [id number] without MRG NABS nontender obese no CC some edema paraplegic wounds noted LUANN MICHEL Jul 06, 2017 10:13
[2017-07-06] MEDS: DAPTOmycin 550 MG in NS 50 ML IV SCH (11:44)
[2017-07-06 12:00] VITALS: BP 117/56
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
[2017-07-06 16:00] VITALS: BP 110/58
[2017-07-06 20:00] VITALS: BP 90/47
[2017-07-06] MEDS: Dyna-Hex 2% Top Sol 2oz TOPIC SCH (20:00)
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
--- NOTE | 2017-07-06 21:33 | General Progress Note ---
Assessment/Plan Assessment/Plan Assessment - malnutrition, albumin 1.2 - Spine osteo - paraspinous abscess - (R) hydro - cholelithiasis - Severe anemia - prior negative EGD and Colonoscopy - abnormal LFT - ? passed a stone - resolved - Hepatosplenomegally, ? early portal HTN - (+) GB stones/sludge - Chronic wounds - leukocytosis Recommendations - Push po / protein supplements - follow labs for now - Check stool OB - follow CBC - Check hep serologies --> negative - ID f/u - Ortho spine eval - monitor intake Subjective Allergies: Coded Allergies: CEFTRIAXONE (Verified Allergy, Intermediate, SOB, HR-140bpm, face swollen , pt became red, 10/24/15) CODEINE (Verified Allergy, Intermediate, SWELLING, 01/03/11) LATEX (Verified Allergy, Intermediate, SWELLING, 01/03/11) PIPERACILLIN (Verified Allergy, Intermediate, Itching, 08/29/15) 08/29/15 tolerates Ceftaroline TAZOBACTAM (Verified Allergy, Intermediate, Itching, 01/29/15) POLYMYXIN B (Verified Allergy, Mild, Rash, 04/08/16) Suspected allergy reported by VANCOMYCIN (Verified Allergy, Mild, 07/15/14) ASPARAGINASE (Verified Allergy, Unknown, 01/28/14) CEFUROXIME (Unverified Allergy, Unknown, 04/19/16) IRON (Verified Allergy, Unknown, 01/28/14) LATEX, NATURAL RUBBER (Unverified Allergy, Unknown, 06/18/16) Subjective trying to eat advised re need for aggressive nutritional intake advised albumin low declines appetite stimulants Objective Last 24 Hour Vital Signs Date Time Temp Pulse Resp B/P (MAP) Pulse Ox O2 Delivery O2 Flow Rate FiO2 07/06/17 20:19 82 20 Room Air 21 07/06/17 16:00 89 07/06/17 16:00 98.1 95 20 110/58 99 Room Air 98.1 07/06/17 12:00 97.6 100 21 117/56 97 Room Air 97.6 07/06/17 08:00 97.1 95 19 110/59 Room Air 97.1 07/06/17 07:50 93 20 Room Air 21 07/06/17 04:00 96 07/06/17 00:00 102 07/06/17 00:00 98.0 104 20 90/44 98 Room Air 98.0 Intake and Output 07/05/17 07/06/17 19:00 07:00 Intake Total 765 ml 1000 ml Balance 765 ml 1000 ml Intake Oral 765 ml IV Total 1000 ml # Voids 2 # Bowel Movements 1 Laboratory Tests 07/06/17 07:30: White Blood Count 16.0H, Red Blood Count 3.28L, Hemoglobin 8.5L, Hematocrit 26.6L, Mean Corpuscular Volume 81, Mean Corpuscular Hemoglobin 25.9L, Mean Corpuscular Hemoglobin Concent 32.0, Red Cell Distribution Width 17.4H, Platelet Count 239, Mean Platelet Volume 7.6, Neutrophils (%) (Auto) , Lymphocytes (%) (Auto) , Monocytes (%) (Auto) , Eosinophils (%) (Auto) , Basophils (%) (Auto) , Differential Total Cells Counted 100, Neutrophils % ( Manual) 88H, Lymphocytes % (Manual) 9L, Monocytes % (Manual) 3, Eosinophils % ( Manual) 0, Basophils % (Manual) 0, Band Neutrophils 0, Platelet Estimate Adequate, Platelet Morphology Normal, Hypochromasia 1+, Anisocytosis 1+, Sodium Level 138, Potassium Level 3.2L, Chloride Level 107, Carbon Dioxide Level 25, Anion Gap 6, Blood Urea Nitrogen 6L, Creatinine 0.7, Estimat Glomerular Filtration Rate > 60, Glucose Level 121H, Calcium Level 7.6L, Total Bilirubin 0.5, Aspartate Amino Transf (AST/SGOT) 6L, Alanine Aminotransferase (ALT/SGPT) < 6L, Alkaline Phosphatase 88, Total Protein 5.8L, Albumin 1.2L, Globulin 4.6, Albumin/Globulin Ratio 0.3L Height (Feet): 5 Height (Inches): 5.00 Weight (Pounds): 222 Objective Deblilited WW NCAT supple CTA RR Abd soft, (+) colostomy (+) contracture deformities PITER DEAN Jul 06, 2017 21:33
--- NOTE | 2017-07-06 21:35 | General Progress Note ---
Assessment/Plan Problem List: (1) Osteomyelitis of lumbar spine ICD Codes: M46.26 - Osteomyelitis of vertebra, lumbar region SNOMED: 311666184 (2) Paraspinal abscess ICD Codes: M46.20 - Osteomyelitis of vertebra, site unspecified SNOMED: 96976070163551195 (3) Chronic osteomyelitis of hip ICD Codes: M86.68 - Other chronic osteomyelitis, other site SNOMED: 319156197 (4) Paraplegia ICD Codes: G82.20 - Paraplegia SNOMED: 13119015 Status: stable, not improved Assessment/Plan IV abx [facility] pain rx ivf wound care repeat cbc and labs transfuse as needed added protein supplements [facility] level of care Subjective ROS Limited/Unobtainable: No Constitutional: Reports: malaise, weakness HEENT: Reports: no symptoms Cardiovascular: Reports: no symptoms Respiratory: Reports: no symptoms Gastrointestinal/Abdominal: Reports: no symptoms Genitourinary: Reports: no symptoms 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: Reports: pre-existing deficit Endocrine: Reports: no symptoms Hematologic/Lymphatic: Reports: no symptoms Allergies: Coded Allergies: CEFTRIAXONE (Verified Allergy, Intermediate, SOB, HR-140bpm, face swollen , pt became red, 10/24/15) CODEINE (Verified Allergy, Intermediate, SWELLING, 01/03/11) LATEX (Verified Allergy, Intermediate, SWELLING, 01/03/11) PIPERACILLIN (Verified Allergy, Intermediate, Itching, 08/29/15) 08/29/15 tolerates Ceftaroline TAZOBACTAM (Verified Allergy, Intermediate, Itching, 01/29/15) POLYMYXIN B (Verified Allergy, Mild, Rash, 04/08/16) Suspected allergy reported by VANCOMYCIN (Verified Allergy, Mild, 07/15/14) ASPARAGINASE (Verified Allergy, Unknown, 01/28/14) CEFUROXIME (Unverified Allergy, Unknown, 04/19/16) IRON (Verified Allergy, Unknown, 01/28/14) LATEX, NATURAL RUBBER (Unverified Allergy, Unknown, 06/18/16) All Systems: reviewed and negative except above Subjective no events. w/o complaints except pain. no fever or chills. no chest pain. still [facility] bed [facility]. Objective Last 24 Hour Vital Signs Date Time Temp Pulse Resp B/P (MAP) Pulse Ox O2 Delivery O2 Flow Rate FiO2 3/28/18 20:19 82 20 Room Air 21 07/06/17 16:00 89 07/06/17 16:00 98.1 95 20 110/58 99 Room Air 98.1 07/06/17 12:00 97.6 100 21 117/56 97 Room Air 97.6 07/06/17 08:00 97.1 95 19 110/59 Room Air 97.1 07/06/17 07:50 93 20 Room Air 21 07/06/17 04:00 96 07/06/17 00:00 102 07/06/17 00:00 98.0 104 20 90/44 98 Room Air 98.0 Intake and Output 07/05/17 07/06/17 19:00 07:00 Intake Total 765 ml 1000 ml Balance 765 ml 1000 ml Intake Oral 765 ml IV Total 1000 ml # Voids 2 # Bowel Movements 1 Laboratory Tests 07/06/17 07:30: White Blood Count 16.0H, Red Blood Count 3.28L, Hemoglobin 8.5L, Hematocrit 26.6L, Mean Corpuscular Volume 81, Mean Corpuscular Hemoglobin 25.9L, Mean Corpuscular Hemoglobin Concent 32.0, Red Cell Distribution Width 17.4H, Platelet Count 239, Mean Platelet Volume 7.6, Neutrophils (%) (Auto) , Lymphocytes (%) (Auto) , Monocytes (%) (Auto) , Eosinophils (%) (Auto) , Basophils (%) (Auto) , Differential Total Cells Counted 100, Neutrophils % ( Manual) 88H, Lymphocytes % (Manual) 9L, Monocytes % (Manual) 3, Eosinophils % ( Manual) 0, Basophils % (Manual) 0, Band Neutrophils 0, Platelet Estimate Adequate, Platelet Morphology Normal, Hypochromasia 1+, Anisocytosis 1+, Sodium Level 138, Potassium Level 3.2L, Chloride Level 107, Carbon Dioxide Level 25, Anion Gap 6, Blood Urea Nitrogen 6L, Creatinine 0.7, Estimat Glomerular Filtration Rate > 60, Glucose Level 121H, Calcium Level 7.6L, Total Bilirubin 0.5, Aspartate Amino Transf (AST/SGOT) 6L, Alanine Aminotransferase (ALT/SGPT) < 6L, Alkaline Phosphatase 88, Total Protein 5.8L, Albumin 1.2L, Globulin 4.6, Albumin/Globulin Ratio 0.3L Height (Feet): 5 Height (Inches): 5.00 Weight (Pounds): 222 Objective General Appearance: WD/WN, alert Neck: supple Cardiovascular: normal rate Respiratory/Chest: lungs clear, normal breath sounds Abdomen: normal bowel sounds, non tender, soft, no organomegaly Edema: no edema noted Arm (L), no edema noted Arm (R), no edema noted Leg (L), no edema noted Leg (R), no edema noted Pedal (L), no edema noted Pedal (R), no edema noted Generalized Neurologic: motor weakness BONG BRUNNER Jul 06, 2017 21:35
--- NOTE | 2017-07-07 07:53 | General Progress Note ---
Assessment/Plan Problem List: (1) Osteomyelitis of lumbar spine ICD Codes: M46.26 - Osteomyelitis of vertebra, lumbar region SNOMED: 975895943 (2) Paraspinal abscess ICD Codes: M46.20 - Osteomyelitis of vertebra, site unspecified SNOMED: 70766767556149562 (3) Chronic osteomyelitis of hip ICD Codes: M86.68 - Other chronic osteomyelitis, other site SNOMED: 273844216 (4) Paraplegia ICD Codes: G82.20 - Paraplegia SNOMED: 82252845 Status: stable, progressing Assessment/Plan IV abx spine and surgery eval at [facility] pain rx ivf wound care repeat cbc and labs- pending for this am transfuse as needed added protein supplements transfer to [facility] for higher level of care Subjective ROS Limited/Unobtainable: No Constitutional: Reports: malaise, weakness HEENT: Reports: no symptoms Cardiovascular: Reports: no symptoms Respiratory: Reports: no symptoms Gastrointestinal/Abdominal: Reports: no symptoms Genitourinary: Reports: no symptoms 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: Reports: pre-existing deficit Endocrine: Reports: no symptoms Hematologic/Lymphatic: Reports: anemia Allergies: Coded Allergies: CEFTRIAXONE (Verified Allergy, Intermediate, SOB, HR-140bpm, face swollen , pt became red, 10/24/15) CODEINE (Verified Allergy, Intermediate, SWELLING, 01/03/11) LATEX (Verified Allergy, Intermediate, SWELLING, 01/03/11) PIPERACILLIN (Verified Allergy, Intermediate, Itching, 08/29/15) 08/29/15 tolerates Ceftaroline TAZOBACTAM (Verified Allergy, Intermediate, Itching, 01/29/15) POLYMYXIN B (Verified Allergy, Mild, Rash, 04/08/16) Suspected allergy reported by VANCOMYCIN (Verified Allergy, Mild, 07/15/14) ASPARAGINASE (Verified Allergy, Unknown, 01/28/14) CEFUROXIME (Unverified Allergy, Unknown, 04/19/16) IRON (Verified Allergy, Unknown, 01/28/14) LATEX, NATURAL RUBBER (Unverified Allergy, Unknown, 06/18/16) All Systems: reviewed and negative except above Subjective no events. w/o complaints except pain. no new complaints. no fever or chills. no chest pain. still no bed at [facility]. on iv bx. Objective Last 24 Hour Vital Signs Date Time Temp Pulse Resp B/P (MAP) Pulse Ox O2 Delivery O2 Flow Rate FiO2 07/07/17 00:00 106 07/06/17 20:19 82 20 Room Air 21 07/06/17 20:00 105 07/06/17 20:00 97.0 103 20 90/47 98 Room Air 97.0 07/06/17 16:00 89 07/06/17 16:00 98.1 95 20 110/58 99 Room Air 98.1 07/06/17 12:00 97.6 100 21 117/56 97 Room Air 97.6 07/06/17 08:00 97.1 95 19 110/59 Room Air 97.1 Intake and Output 07/06/17 07/07/17 19:00 07:00 Intake Total 800 ml Balance 800 ml Intake Oral 800 ml Height (Feet): 5 Height (Inches): 5.00 Weight (Pounds): 222 Objective General Appearance: WD/WN, alert Neck: supple Cardiovascular: normal rate Respiratory/Chest: lungs clear, normal breath sounds Abdomen: normal bowel sounds, non tender, soft, no organomegaly Edema: no edema noted Arm (L), no edema noted Arm (R), no edema noted Leg (L), no edema noted Leg (R), no edema noted Pedal (L), no edema noted Pedal (R), no edema noted Generalized Neurologic: motor weakness BONG BRUNNER Jul 07, 2017 07:53
--- NOTE | 2017-07-07 08:12 | General Progress Note ---
Assessment/Plan Assessment/Plan ASSESSMENT AND RECOMMENDATION: 1. Left femur osteomyelitis per history 2. Bilateral posterior thigh chronic wounds. 3. Chronic bilateral hip osteomyelitis 4. anemia 5. possible gib 6. severe protein calorie malnutrition 7. chronic pain syndrome 8. transaminitis 9. sinus tachycardia 10. fevers 11. sepsis and positive bcx 12. multiple abcessess 13. pleural effusions 13. possible acute osteo PLAN monitor labs for change repeat CT abdomen to assess for change eating well on IV antibiotics ID evaluation noted cultures reviewed will call transfer center at [facility] again to check on bed availability nutrition pain control guarded impression, plan, and exam edited and reviewed in detail care discussed with RN Subjective Allergies: Coded Allergies: CEFTRIAXONE (Verified Allergy, Intermediate, SOB, HR-140bpm, face swollen , pt became red, 10/24/15) CODEINE (Verified Allergy, Intermediate, SWELLING, 01/03/11) LATEX (Verified Allergy, Intermediate, SWELLING, 01/03/11) PIPERACILLIN (Verified Allergy, Intermediate, Itching, 08/29/15) 08/29/15 tolerates Ceftaroline TAZOBACTAM (Verified Allergy, Intermediate, Itching, 01/29/15) POLYMYXIN B (Verified Allergy, Mild, Rash, 04/08/16) Suspected allergy reported by MD VANCOMYCIN (Verified Allergy, Mild, 07/15/14) ASPARAGINASE (Verified Allergy, Unknown, 01/28/14) CEFUROXIME (Unverified Allergy, Unknown, 04/19/16) IRON (Verified Allergy, Unknown, 01/28/14) LATEX, NATURAL RUBBER (Unverified Allergy, Unknown, 06/18/16) Subjective events noted reviewed all d/w patient repeat Ct abdomen Objective Last 24 Hour Vital Signs Date Time Temp Pulse Resp B/P (MAP) Pulse Ox O2 Delivery O2 Flow Rate FiO2 07/07/17 00:00 106 07/06/17 20:19 82 20 Room Air 21 07/06/17 20:00 105 07/06/17 20:00 97.0 103 20 90/47 98 Room Air 97.0 07/06/17 16:00 89 07/06/17 16:00 98.1 95 20 110/58 99 Room Air 98.1 07/06/17 12:00 97.6 100 21 117/56 97 Room Air 97.6 Intake and Output 07/06/17 07/07/17 19:00 07:00 Intake Total 800 ml Balance 800 ml Intake Oral 800 ml Height (Feet): 5 Height (Inches): 5.00 Weight (Pounds): 222 Objective WDWN comfortable and alert NAD reduced breath sounds bilaterally without rhonchi or wheeze [id number] without MRG NABS nontender obese no CC some edema paraplegic wounds noted LUANN MICHEL Jul 07, 2017 08:12
[2017-07-07 08:48] LABS: HEMATOCRIT 24.5 % (37.0-47.0); HEMOGLOBIN 7.9 G/DL (12.0-16.0); MEAN CORPUSCULAR VOLUME 80 FL (80-99); PLATELET COUNT 207 K/UL (150-450); RED BLOOD COUNT 3.06 M/UL (4.20-5.40); RED CELL DISTRIBUTION WIDTH 17.3 % (11.6-14.8); WHITE BLOOD COUNT 18.1 K/UL (4.8-10.8)
[2017-07-07 09:07] LABS: ALANINE AMINOTRANSFERASE < 6 U/L (12-78); ALBUMIN 1.2 G/DL (3.4-5.0); ALBUMIN/GLOBULIN RATIO 0.3 (1.0-2.7); ALKALINE PHOSPHATASE 83 U/L (46-116); ANION GAP 7 mmol/L (5-15); ASPARTATE AMINO TRANSFERASE 7 U/L (15-37); BILIRUBIN,TOTAL 0.5 MG/DL (0.2-1.0); BLOOD UREA NITROGEN 6 mg/dL (7-18); CALCIUM 7.6 MG/DL (8.5-10.1); CARBON DIOXIDE 25 MMOL/L (21-32); CHLORIDE 105 MMOL/L (98-107); CREATININE 0.7 MG/DL (0.55-1.30); POTASSIUM 3.4 MMOL/L (3.5-5.1); SODIUM 137 MMOL/L (136-145)
[2017-07-07 09:36] VITALS: BP 101/50
[2017-07-07] MEDS: DAPTOmycin 550 MG in NS 50 ML IV SCH (11:35)
[2017-07-07 12:00] VITALS: BP 102/60
--- NOTE | 2017-07-07 13:44 | General Progress Note ---
Assessment/Plan Assessment/Plan MDD anxiety d/o the pt lack capacity d/w next tr mg who is her sister and she was somewhat hostile d/w Dr. Johnsotn who stated that the situation is urgent -lexapro 10mg qam -the sister is the next of haritha Subjective Date patient seen: Jul 07, 2017 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: Reports: anxiety, depressed Allergies: Coded Allergies: CEFTRIAXONE (Verified Allergy, Intermediate, SOB, HR-140bpm, face swollen , pt became red, 10/24/15) CODEINE (Verified Allergy, Intermediate, SWELLING, 01/03/11) LATEX (Verified Allergy, Intermediate, SWELLING, 01/03/11) PIPERACILLIN (Verified Allergy, Intermediate, Itching, 08/29/15) 08/29/15 tolerates Ceftaroline TAZOBACTAM (Verified Allergy, Intermediate, Itching, 01/29/15) POLYMYXIN B (Verified Allergy, Mild, Rash, 04/08/16) Suspected allergy reported by VANCOMYCIN (Verified Allergy, Mild, 07/15/14) ASPARAGINASE (Verified Allergy, Unknown, 01/28/14) CEFUROXIME (Unverified Allergy, Unknown, 04/19/16) IRON (Verified Allergy, Unknown, 01/28/14) LATEX, NATURAL RUBBER (Unverified Allergy, Unknown, 06/18/16) Subjective the pt more cooperative refusing lexapro Objective Last 24 Hour Vital Signs Date Time Temp Pulse Resp B/P (MAP) Pulse Ox O2 Delivery O2 Flow Rate FiO2 07/07/17 11:43 97.0 07/07/17 11:13 97.0 07/07/17 09:36 97.0 95 18 101/50 98 Room Air 97.0 07/07/17 08:29 80 20 Room Air 21 07/07/17 07:30 91 07/07/17 04:00 88 07/07/17 00:00 106 07/06/17 20:19 82 20 Room Air 21 07/06/17 20:00 105 07/06/17 20:00 97.0 103 20 90/47 98 Room Air 97.0 07/06/17 16:00 89 07/06/17 16:00 98.1 95 20 110/58 99 Room Air 98.1 Intake and Output 07/06/17 07/07/17 19:00 07:00 Intake Total 800 ml Balance 800 ml Intake Oral 800 ml Laboratory Tests 07/07/17 07:30: White Blood Count 18.1H, Red Blood Count 3.06L, Hemoglobin 7.9L, Hematocrit 24.5L, Mean Corpuscular Volume 80, Mean Corpuscular Hemoglobin 25.8L, Mean Corpuscular Hemoglobin Concent 32.2, Red Cell Distribution Width 17.3H, Platelet Count 207, Mean Platelet Volume 7.8, Neutrophils (%) (Auto) , Lymphocytes (%) (Auto) , Monocytes (%) (Auto) , Eosinophils (%) (Auto) , Basophils (%) (Auto) , Differential Total Cells Counted 100, Neutrophils % ( Manual) 88H, Lymphocytes % (Manual) 7L, Monocytes % (Manual) 5, Eosinophils % ( Manual) 0, Basophils % (Manual) 0, Band Neutrophils 0, Platelet Estimate Adequate, Platelet Morphology Normal, Hypochromasia 1+, Anisocytosis 1+, Sodium Level 137, Potassium Level 3.4L, Chloride Level 105, Carbon Dioxide Level 25, Anion Gap 7, Blood Urea Nitrogen 6L, Creatinine 0.7, Estimat Glomerular Filtration Rate > 60, Glucose Level 101, Calcium Level 7.6L, Total Bilirubin 0.5 , Aspartate Amino Transf (AST/SGOT) 7L, Alanine Aminotransferase (ALT/SGPT) < 6L , Alkaline Phosphatase 83, Total Protein 5.9L, Albumin 1.2L, Globulin 4.7, Albumin/Globulin Ratio 0.3L Height (Feet): 5 Height (Inches): 5.00 Weight (Pounds): 223 General Appearance: no apparent distress, alert Neurologic: oriented x 3, responsive, depressed affect Michael Feng M.D. Jul 07, 2017 13:44
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
[2017-07-07 15:44] LABS: INR 1.6 (0.9-1.1)
[2017-07-07 16:51] VITALS: BP 101/59
--- NOTE | 2017-07-07 19:56 | General Progress Note ---
Assessment/Plan Assessment/Plan Assessment - malnutrition, albumin 1.2 - Spine osteo - paraspinous abscess - (R) hydro - cholelithiasis - Severe anemia - prior negative EGD and Colonoscopy - abnormal LFT - ? passed a stone - resolved - Hepatosplenomegally, ? early portal HTN - (+) GB stones/sludge - Chronic wounds - leukocytosis Recommendations - Push po / protein supplements - follow labs for now - Check stool OB - follow CBC, watch WBC - Check hep serologies --> negative - ID f/u - Ortho spine eval - monitor intake - Ensure TID PO Subjective Allergies: Coded Allergies: CEFTRIAXONE (Verified Allergy, Intermediate, SOB, HR-140bpm, face swollen , pt became red, 10/24/15) CODEINE (Verified Allergy, Intermediate, SWELLING, 01/03/11) LATEX (Verified Allergy, Intermediate, SWELLING, 01/03/11) PIPERACILLIN (Verified Allergy, Intermediate, Itching, 08/29/15) 08/29/15 tolerates Ceftaroline TAZOBACTAM (Verified Allergy, Intermediate, Itching, 01/29/15) POLYMYXIN B (Verified Allergy, Mild, Rash, 04/08/16) Suspected allergy reported by VANCOMYCIN (Verified Allergy, Mild, 07/15/14) ASPARAGINASE (Verified Allergy, Unknown, 01/28/14) CEFUROXIME (Unverified Allergy, Unknown, 04/19/16) IRON (Verified Allergy, Unknown, 01/28/14) LATEX, NATURAL RUBBER (Unverified Allergy, Unknown, 06/18/16) Subjective trying to eat advised re need for aggressive nutritional intake advised albumin low requests ensure Objective Last 24 Hour Vital Signs Date Time Temp Pulse Resp B/P (MAP) Pulse Ox O2 Delivery O2 Flow Rate FiO2 07/07/17 19:29 98 18 Room Air 21 07/07/17 19:12 97.0 07/07/17 18:42 97.0 07/07/17 16:51 97.0 100 18 101/59 98 Room Air 97.0 07/07/17 15:18 91 07/07/17 14:46 97.0 07/07/17 12:00 98.0 98 18 102/60 98 Room Air 98.0 07/07/17 11:59 85 07/07/17 11:13 97.0 07/07/17 09:36 97.0 95 18 101/50 98 Room Air 97.0 07/07/17 08:29 80 20 Room Air 21 07/07/17 07:30 91 07/07/17 04:00 88 07/07/17 00:00 106 07/06/17 20:19 82 20 Room Air 21 07/06/17 20:00 105 07/06/17 20:00 97.0 103 20 90/47 98 Room Air 97.0 Intake and Output 07/06/17 07/07/17 19:00 07:00 Intake Total 800 ml Balance 800 ml Intake Oral 800 ml Laboratory Tests 07/07/17 07:30: White Blood Count 18.1H, Red Blood Count 3.06L, Hemoglobin 7.9L, Hematocrit 24.5L, Mean Corpuscular Volume 80, Mean Corpuscular Hemoglobin 25.8L, Mean Corpuscular Hemoglobin Concent 32.2, Red Cell Distribution Width 17.3H, Platelet Count 207, Mean Platelet Volume 7.8, Neutrophils (%) (Auto) , Lymphocytes (%) (Auto) , Monocytes (%) (Auto) , Eosinophils (%) (Auto) , Basophils (%) (Auto) , Differential Total Cells Counted 100, Neutrophils % ( Manual) 88H, Lymphocytes % (Manual) 7L, Monocytes % (Manual) 5, Eosinophils % ( Manual) 0, Basophils % (Manual) 0, Band Neutrophils 0, Platelet Estimate Adequate, Platelet Morphology Normal, Hypochromasia 1+, Anisocytosis 1+, Sodium Level 137, Potassium Level 3.4L, Chloride Level 105, Carbon Dioxide Level 25, Anion Gap 7, Blood Urea Nitrogen 6L, Creatinine 0.7, Estimat Glomerular Filtration Rate > 60, Glucose Level 101, Calcium Level 7.6L, Total Bilirubin 0.5 , Aspartate Amino Transf (AST/SGOT) 7L, Alanine Aminotransferase (ALT/SGPT) < 6L , Alkaline Phosphatase 83, Total Protein 5.9L, Albumin 1.2L, Globulin 4.7, Albumin/Globulin Ratio 0.3L 07/07/17 14:40: Prothrombin Time 16.6H, Prothromb Time International Ratio 1.6H, Activated Partial Thromboplast Time 43H Height (Feet): 5 Height (Inches): 5.00 Weight (Pounds): 223 Objective Deblilited WW NCAT supple CTA RR Abd soft, (+) colostomy (+) contracture deformities PITER DEAN Jul 07, 2017 19:56
[2017-07-07 20:00] VITALS: BP 90/48
[2017-07-07] MEDS: Dyna-Hex 2% Top Sol 2oz TOPIC SCH (20:00)
[2017-07-08] VITALS: BP 96/52
[2017-07-08 04:00] VITALS: BP 107/64
--- NOTE | 2017-07-08 08:46 | General Progress Note ---
Assessment/Plan Problem List: (1) Osteomyelitis of lumbar spine ICD Codes: M46.26 - Osteomyelitis of vertebra, lumbar region SNOMED: 407139956 (2) Paraspinal abscess ICD Codes: M46.20 - Osteomyelitis of vertebra, site unspecified SNOMED: [id number] (3) Chronic osteomyelitis of hip ICD Codes: M86.68 - Other chronic osteomyelitis, other site SNOMED: 641072155 (4) Paraplegia ICD Codes: G82.20 - Paraplegia SNOMED: [id number] Status: stable, progressing Assessment/Plan IV abx spine and surgery eval at [facility] pain rx ivf wound care monitor labs transfuse as needed added protein supplements transfer to [facility] for higher level of care called by transfer center. pt will not be accepted until accepting spine surgeon secured, message left with fidencio medina. await call back Subjective ROS Limited/Unobtainable: No Constitutional: Reports: malaise, weakness HEENT: Reports: no symptoms Cardiovascular: Reports: no symptoms Respiratory: Reports: no symptoms Gastrointestinal/Abdominal: Reports: no symptoms Genitourinary: Reports: no symptoms 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: Reports: pre-existing deficit Endocrine: Reports: no symptoms Hematologic/Lymphatic: Reports: no symptoms Allergies: Coded Allergies: CEFTRIAXONE (Verified Allergy, Intermediate, SOB, HR-140bpm, face swollen , pt became red, 10/24/15) CODEINE (Verified Allergy, Intermediate, SWELLING, 01/03/11) LATEX (Verified Allergy, Intermediate, SWELLING, 01/03/11) PIPERACILLIN (Verified Allergy, Intermediate, Itching, 08/29/15) 08/29/15 tolerates Ceftaroline TAZOBACTAM (Verified Allergy, Intermediate, Itching, 01/29/15) POLYMYXIN B (Verified Allergy, Mild, Rash, 04/08/16) Suspected allergy reported by VANCOMYCIN (Verified Allergy, Mild, 07/15/14) ASPARAGINASE (Verified Allergy, Unknown, 01/28/14) CEFUROXIME (Unverified Allergy, Unknown, 04/19/16) IRON (Verified Allergy, Unknown, 01/28/14) LATEX, NATURAL RUBBER (Unverified Allergy, Unknown, 06/18/16) All Systems: reviewed and negative except above Subjective no events. w/o complaints except pain. no new complaints. no fever or chills. no chest pain. still no bed at [facility]. on iv bx. Objective Last 24 Hour Vital Signs Date Time Temp Pulse Resp B/P (MAP) Pulse Ox O2 Delivery O2 Flow Rate FiO2 07/07/17 23:00 97.0 07/07/17 19:29 98 18 Room Air 21 07/07/17 18:42 97.0 07/07/17 16:51 97.0 100 18 101/59 98 Room Air 97.0 07/07/17 15:18 91 07/07/17 14:46 97.0 07/07/17 12:00 98.0 98 18 102/60 98 Room Air 98.0 07/07/17 11:59 85 07/07/17 11:13 97.0 07/07/17 09:36 97.0 95 18 101/50 98 Room Air 97.0 Intake and Output 07/07/17 07/08/17 19:00 07:00 Intake Total 600 ml 600 ml Output Total 450 ml Balance 150 ml 600 ml Intake Oral 600 ml 600 ml Stool Total 450 ml # Voids 3 3 # Bowel Movements 1 Laboratory Tests 07/07/17 14:40: Prothrombin Time 16.6H, Prothromb Time International Ratio 1.6H, Activated Partial Thromboplast Time 43H Height (Feet): 5 Height (Inches): 5.00 Weight (Pounds): 223 Objective General Appearance: WD/WN, alert Neck: supple Cardiovascular: normal rate Respiratory/Chest: lungs clear, normal breath sounds Abdomen: normal bowel sounds, non tender, soft, no organomegaly Edema: no edema noted Arm (L), no edema noted Arm (R), no edema noted Leg (L), no edema noted Leg (R), no edema noted Pedal (L), no edema noted Pedal (R), no edema noted Generalized Neurologic: motor weakness BONG BRUNNER Jul 08, 2017 08:46
--- NOTE | 2017-07-08 08:47 | General Progress Note ---
Assessment/Plan Assessment/Plan ASSESSMENT AND RECOMMENDATION: 1. Left femur osteomyelitis per history 2. Bilateral posterior thigh chronic wounds. 3. Chronic bilateral hip osteomyelitis 4. anemia 5. possible gib 6. severe protein calorie malnutrition 7. chronic pain syndrome 8. transaminitis 9. sinus tachycardia 10. fevers 11. sepsis and positive bcx 12. multiple abcessess 13. pleural effusions 14. possible acute osteo 15. coagulopathy PLAN monitor labs for change repeat CT abdomen reviewed with radiology eating well on IV antibiotics ID evaluation noted cultures reviewed called transfer center at [facility] again to check on bed availability nutrition pain control guarded impression, plan, and exam edited and reviewed in detail care discussed with RN Subjective Allergies: Coded Allergies: CEFTRIAXONE (Verified Allergy, Intermediate, SOB, HR-140bpm, face swollen , pt became red, 10/24/15) CODEINE (Verified Allergy, Intermediate, SWELLING, 01/03/11) LATEX (Verified Allergy, Intermediate, SWELLING, 01/03/11) PIPERACILLIN (Verified Allergy, Intermediate, Itching, 08/29/15) 08/29/15 tolerates Ceftaroline TAZOBACTAM (Verified Allergy, Intermediate, Itching, 01/29/15) POLYMYXIN B (Verified Allergy, Mild, Rash, 04/08/16) Suspected allergy reported by MD VANCOMYCIN (Verified Allergy, Mild, 07/15/14) ASPARAGINASE (Verified Allergy, Unknown, 01/28/14) CEFUROXIME (Unverified Allergy, Unknown, 04/19/16) IRON (Verified Allergy, Unknown, 01/28/14) LATEX, NATURAL RUBBER (Unverified Allergy, Unknown, 06/18/16) Subjective events noted reviewed all d/w patient repeat Ct abdomen noted and d/w radiology Objective Last 24 Hour Vital Signs Date Time Temp Pulse Resp B/P (MAP) Pulse Ox O2 Delivery O2 Flow Rate FiO2 07/07/17 23:00 97.0 07/07/17 19:29 98 18 Room Air 21 07/07/17 18:42 97.0 07/07/17 16:51 97.0 100 18 101/59 98 Room Air 97.0 07/07/17 15:18 91 07/07/17 14:46 97.0 07/07/17 12:00 98.0 98 18 102/60 98 Room Air 98.0 07/07/17 11:59 85 07/07/17 11:13 97.0 07/07/17 09:36 97.0 95 18 101/50 98 Room Air 97.0 Intake and Output 07/07/17 07/08/17 19:00 07:00 Intake Total 600 ml 600 ml Output Total 450 ml Balance 150 ml 600 ml Intake Oral 600 ml 600 ml Stool Total 450 ml # Voids 3 3 # Bowel Movements 1 Laboratory Tests 07/07/17 14:40: Prothrombin Time 16.6H, Prothromb Time International Ratio 1.6H, Activated Partial Thromboplast Time 43H Height (Feet): 5 Height (Inches): 5.00 Weight (Pounds): 223 Objective WDWN comfortable and alert NAD reduced breath sounds bilaterally without rhonchi or wheeze [id number] without MRG NABS nontender obese no CC some edema paraplegic wounds noted LUANN MICHEL Jul 08, 2017 08:47
[2017-07-08] MEDS: DAPTOmycin 550 MG in NS 50 ML IV SCH (10:37)
[2017-07-08 12:00] VITALS: BP 101/51
--- NOTE | 2017-07-08 15:14 | General Progress Note ---
Assessment/Plan Status: stable Assessment/Plan MDD anxiety d/o borderline pd -lexapro 10mg qam -the sister is the next of keen will sign off Subjective Date patient seen: Jul 08, 2017 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: Reports: anxiety, depressed, emotional problems - borderline tendencies Allergies: Coded Allergies: CEFTRIAXONE (Verified Allergy, Intermediate, SOB, HR-140bpm, face swollen , pt became red, 10/24/15) CODEINE (Verified Allergy, Intermediate, SWELLING, 01/03/11) LATEX (Verified Allergy, Intermediate, SWELLING, 01/03/11) PIPERACILLIN (Verified Allergy, Intermediate, Itching, 08/29/15) 08/29/15 tolerates Ceftaroline TAZOBACTAM (Verified Allergy, Intermediate, Itching, 01/29/15) POLYMYXIN B (Verified Allergy, Mild, Rash, 04/08/16) Suspected allergy reported by VANCOMYCIN (Verified Allergy, Mild, 07/15/14) ASPARAGINASE (Verified Allergy, Unknown, 01/28/14) CEFUROXIME (Unverified Allergy, Unknown, 04/19/16) IRON (Verified Allergy, Unknown, 01/28/14) LATEX, NATURAL RUBBER (Unverified Allergy, Unknown, 06/18/16) Subjective the pt more cooperative refusing lexapro. the pt does not believe that she has mental illness "I will prove to nurses that I am not crazy" Objective Last 24 Hour Vital Signs Date Time Temp Pulse Resp B/P (MAP) Pulse Ox O2 Delivery O2 Flow Rate FiO2 07/08/17 10:55 98 18 Room Air 21 07/08/17 08:00 81 07/08/17 04:00 69 07/08/17 04:00 97.5 77 18 107/64 97 97.5 07/08/17 00:00 90 07/08/17 00:00 98.2 80 20 96/52 98 98.2 07/07/17 23:00 97.0 07/07/17 20:00 89 07/07/17 20:00 98.2 92 18 90/48 97 98.2 07/07/17 19:29 98 18 Room Air 21 07/07/17 18:42 97.0 07/07/17 16:51 97.0 100 18 101/59 98 Room Air 97.0 07/07/17 15:18 91 Intake and Output 07/07/17 07/08/17 19:00 07:00 Intake Total 600 ml 600 ml Output Total 450 ml Balance 150 ml 600 ml Intake Oral 600 ml 600 ml Stool Total 450 ml # Voids 3 3 # Bowel Movements 1 Height (Feet): 5 Height (Inches): 5.00 Weight (Pounds): 223 General Appearance: no apparent distress, alert Neurologic: oriented x 3, responsive, depressed affect Michael Feng M.D. Jul 08, 2017 15:14
[2017-07-08] MEDS: Lidocaine 1% Plain 30 ml INJ SCH (16:00)
[2017-07-08] MEDS ORDERED: LORazepam Inj 2mg/ml 1ml IV ONE (17:00)
--- NOTE | 2017-07-08 17:05 | Emergency Room Report ---
Physical Exam Faviola kay was called in CT. Patient became unresponsive after what looked like a seizure. When I arrived, patient moving arms and combative. + pulses H/O paraplegia H/O paraspinous abscess - was in CT to have drainage. Recent transfusion. No h/o seizures. Last 24 Hour Vital Signs Date Time Temp Pulse Resp B/P (MAP) Pulse Ox O2 Delivery O2 Flow Rate FiO2 07/08/17 10:55 98 18 Room Air 21 07/08/17 08:00 81 07/08/17 04:00 69 07/08/17 04:00 97.5 77 18 107/64 97 97.5 07/08/17 00:00 90 07/08/17 00:00 98.2 80 20 96/52 98 98.2 07/07/17 23:00 97.0 07/07/17 20:00 89 07/07/17 20:00 98.2 92 18 90/48 97 98.2 07/07/17 19:29 98 18 Room Air 21 07/07/17 18:42 97.0 Sp02 EP Interpretation: reviewed, normal General Appearance: alert, mild distress Head: normocephalic, atraumatic Eyes: bilateral eye normal inspection, bilateral eye PERRL, bilateral eye EOMI ENT: moist mucus membranes Neck: supple, no bony tend Respiratory: chest non-tender, lungs clear, normal breath sounds Cardiovascular #1: regular rate, rhythm Cardiovascular #2: 2+ radial (L) Gastrointestinal: normal inspection, decreased bowel sounds Musculoskeletal: back normal 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 Reason for critical care: Faviola Kay called, evaluation of AMS, continued bedside observation until stabilized Possible complications: hypotension, hypertension, NM, shock, arrhythmias, metabolic acidosis, end organ damage, respiratory failure. Interventions: accucheck, neurologic exam, evaluation of airway, initial ordered to evaluate and treat new onset seizure Course: Patient in CT. Had generalized T/C seizure and then unresponsive. No CPR performed. When I arrived, patient combative and post-ictal. Accucheck normal. NSR and ST on monitor. Airway patent and protected. Ativan ordered. Keppra ordered. Basic labs and EKG also ordered. Cancel transfer to floor and return to telemetry. Consultations: nursing staff, Xray staff and ANAHI FREEMAN code blue team Performed by: Dr. Zhu Tolerated well condition = serious Medical Decision Making Diagnostic Impression: Primary Impression: Seizure ER Course Patient evaluated for possible unresponsiveness and Faviola Kay called to CT scanner. Patient was to have CT guided drainage of abscess. Patient initially postictal. An Accu-Chek is obtained which is 110. CPR was never performed and she did not need an advanced airway. The patient gradually was conversant. She denies having seizures in the past. Ativan 1 mg was ordered IV and also Keppra 500 mg. She was initially going to be transferred to a floor however because of the seizure, which is new onset, the patient will remain in telemetry. The etiology could have been due to hypotension as she has had low blood pressures (also consider arrhythmia). According to what is documented - her neurologic exam was unchanged and therefore CT scan was not indicated. However EKG, CBC and CMP are indicated and ordered. Consideration for possible transfusion reaction is undertaken. This is felt to be extremely unusual. Patient improved and transferred back to telemetry. Dr. Michel notified. Laboratory Tests Test 07/07/17 07:30 07/07/17 14:40 White Blood Count 18.1 K/UL (4.8-10.8) H Red Blood Count 3.06 M/UL (4.20-5.40) L Hemoglobin 7.9 G/DL (12.0-16.0) L Hematocrit 24.5 % (37.0-47.0) L Mean Corpuscular Volume 80 FL (80-99) Mean Corpuscular Hemoglobin 25.8 PG (27.0-31.0) L Mean Corpuscular Hemoglobin Concent 32.2 G/DL (32.0-36.0) Red Cell Distribution Width 17.3 % (11.6-14.8) H Platelet Count 207 K/UL (150-450) Mean Platelet Volume 7.8 FL (6.5-10.1) Neutrophils (%) (Auto) % (45.0-75.0) Lymphocytes (%) (Auto) % (20.0-45.0) Monocytes (%) (Auto) % (1.0-10.0) Eosinophils (%) (Auto) % (0.0-3.0) Basophils (%) (Auto) % (0.0-2.0) Differential Total Cells Counted 100 Neutrophils % (Manual) 88 % (45-75) H Lymphocytes % (Manual) 7 % (20-45) L Monocytes % (Manual) 5 % (1-10) Eosinophils % (Manual) 0 % (0-3) Basophils % (Manual) 0 % (0-2) Band Neutrophils 0 % (0-8) Platelet Estimate Adequate Platelet Morphology Normal Hypochromasia 1+ Anisocytosis 1+ Sodium Level 137 MMOL/L (136-145) Potassium Level 3.4 MMOL/L (3.5-5.1) L Chloride Level 105 MMOL/L (98-107) Carbon Dioxide Level 25 MMOL/L (21-32) Anion Gap 7 mmol/L (5-15) Blood Urea Nitrogen 6 mg/dL (7-18) L Creatinine 0.7 MG/DL (0.55-1.30) Estimate Glomerular Filtration Rate > 60 mL/min (>60) Glucose Level 101 MG/DL (74-106) Calcium Level 7.6 MG/DL (8.5-10.1) L Total Bilirubin 0.5 MG/DL (0.2-1.0) Aspartate Amino Transferase (AST) 7 U/L (15-37) L Alanine Aminotransferase (ALT) < 6 U/L (12-78) L Alkaline Phosphatase 83 U/L (46-116) Total Protein 5.9 G/DL (6.4-8.2) L Albumin 1.2 G/DL (3.4-5.0) L Globulin 4.7 g/dL Albumin/Globulin Ratio 0.3 (1.0-2.7) L Prothrombin Time 16.6 SEC (9.30-11.50) H Prothrombin Time INR 1.6 (0.9-1.1) H PTT 43 SEC (23-33) H Rhythm Strip Diag. Results EP Interpretation: yes Rhythm: no PVC's, no ectopy, other - ST Last Vital Signs Date Time Temp Pulse Resp B/P (MAP) Pulse Ox O2 Delivery O2 Flow Rate FiO2 07/09/17 00:00 90 18 100/55 96 07/08/17 12:00 98.2 98.2 07/08/17 10:55 Room Air 21 Status: improved Disposition: ADMITTED INPATIENT Condition: Serious Referrals: LUANN MICHEL (PCP) Karthik Zhu M.D. Jul 08, 2017 17:05
[2017-07-08] MEDS ORDERED: levETIRAcetam 500mg/NS100ml 100 ML IVPB ONE (17:30)
--- NOTE | 2017-07-08 17:32 | General Progress Note ---
Assessment/Plan Assessment/Plan Assessment - Severe anemia - prior negative EGD and Colonoscopy - malnutrition, low albumin - Spine osteo - paraspinous abscess - (R) hydro - cholelithiasis - abnormal LFT - ? passed a stone - resolved - Hepatosplenomegally, ? early portal HTN - (+) GB stones/sludge - Chronic wounds - leukocytosis Recommendations - Push po / protein supplements - follow labs for now - Check stool OB - follow CBC, watch WBC - Check hep serologies --> negative - ID f/u - Ortho spine eval - monitor intake - Ensure TID PO Subjective Allergies: Coded Allergies: CEFTRIAXONE (Verified Allergy, Intermediate, SOB, HR-140bpm, face swollen , pt became red, 10/24/15) CODEINE (Verified Allergy, Intermediate, SWELLING, 01/03/11) LATEX (Verified Allergy, Intermediate, SWELLING, 01/03/11) PIPERACILLIN (Verified Allergy, Intermediate, Itching, 08/29/15) 08/29/15 tolerates Ceftaroline TAZOBACTAM (Verified Allergy, Intermediate, Itching, 01/29/15) POLYMYXIN B (Verified Allergy, Mild, Rash, 04/08/16) Suspected allergy reported by VANCOMYCIN (Verified Allergy, Mild, 07/15/14) ASPARAGINASE (Verified Allergy, Unknown, 01/28/14) CEFUROXIME (Unverified Allergy, Unknown, 04/19/16) IRON (Verified Allergy, Unknown, 01/28/14) LATEX, NATURAL RUBBER (Unverified Allergy, Unknown, 06/18/16) Subjective eating OK took ensure no abd symptoms Objective Last 24 Hour Vital Signs Date Time Temp Pulse Resp B/P (MAP) Pulse Ox O2 Delivery O2 Flow Rate FiO2 07/08/17 12:00 98.2 76 18 101/51 97 98.2 07/08/17 12:00 67 07/08/17 10:55 98 18 Room Air 21 07/08/17 08:00 81 07/08/17 04:00 69 07/08/17 04:00 97.5 77 18 107/64 97 97.5 07/08/17 00:00 90 07/08/17 00:00 98.2 80 20 96/52 98 98.2 07/07/17 23:00 97.0 07/07/17 20:00 89 07/07/17 20:00 98.2 92 18 90/48 97 98.2 07/07/17 19:29 98 18 Room Air 21 07/07/17 18:42 97.0 Intake and Output 07/07/17 07/08/17 19:00 07:00 Intake Total 600 ml 600 ml Output Total 450 ml Balance 150 ml 600 ml Intake Oral 600 ml 600 ml Stool Total 450 ml # Voids 3 3 # Bowel Movements 1 Height (Feet): 5 Height (Inches): 5.00 Weight (Pounds): 223 Objective Deblilited WW NCAT supple CTA RR Abd soft, (+) colostomy (+) contracture deformities PITER DEAN Jul 08, 2017 17:31
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
[2017-07-08 20:00] VITALS: BP 89/59
[2017-07-08] MEDS: Dyna-Hex 2% Top Sol 2oz TOPIC SCH (22:32)
[2017-07-08] MEDS: Minocycline HCl 50mg cap ORAL SCH (22:34)
[2017-07-08] MEDS: metroNIDAZOLE 500mg tab ORAL SCH (22:36)
[2017-07-09] VITALS: BP 100/55
[2017-07-09 04:12] LABS: BASOPHILS % (AUTO) 0.2 % (0.0-2.0); EOSINOPHILS % (AUTO) 0.7 % (0.0-3.0); HEMATOCRIT 29.1 % (37.0-47.0); HEMOGLOBIN 9.4 G/DL (12.0-16.0); LYMPHOCYTES % (AUTO) 15.8 % (20.0-45.0); MEAN CORPUSCULAR VOLUME 80 FL (80-99); MONOCYTES % (AUTO) 2.1 % (1.0-10.0); NEUTROPHILS % (AUTO) 81.2 % (45.0-75.0); PLATELET COUNT 231 K/UL (150-450); RED BLOOD COUNT 3.62 M/UL (4.20-5.40); RED CELL DISTRIBUTION WIDTH 16.8 % (11.6-14.8); WHITE BLOOD COUNT 12.1 K/UL (4.8-10.8)
[2017-07-09 05:01] LABS: ALBUMIN 1.3 G/DL (3.4-5.0); ALBUMIN/GLOBULIN RATIO 0.3 (1.0-2.7); ALKALINE PHOSPHATASE 78 U/L (46-116); ANION GAP 8 mmol/L (5-15); ASPARTATE AMINO TRANSFERASE 8 U/L (15-37); BILIRUBIN,TOTAL 0.5 MG/DL (0.2-1.0); BLOOD UREA NITROGEN 5 mg/dL (7-18); CALCIUM 7.3 MG/DL (8.5-10.1); CARBON DIOXIDE 25 MMOL/L (21-32); CHLORIDE 108 MMOL/L (98-107); CREATININE 0.6 MG/DL (0.55-1.30); POTASSIUM 3.4 MMOL/L (3.5-5.1); SODIUM 141 MMOL/L (136-145)
[2017-07-09 05:53] LABS: ALANINE AMINOTRANSFERASE < 6 U/L (12-78)
[2017-07-09] MEDS: metroNIDAZOLE 500mg tab ORAL SCH ×3 (06:39→22:00)
--- NOTE | 2017-07-09 08:14 | General Progress Note ---
Assessment/Plan Problem List: (1) Osteomyelitis of lumbar spine ICD Codes: M46.26 - Osteomyelitis of vertebra, lumbar region SNOMED: 264527172 (2) Paraspinal abscess ICD Codes: M46.20 - Osteomyelitis of vertebra, site unspecified SNOMED: 76780554367980679 (3) Chronic osteomyelitis of hip ICD Codes: M86.68 - Other chronic osteomyelitis, other site SNOMED: 021756899 (4) Paraplegia ICD Codes: G82.20 - Paraplegia SNOMED: 31145152 Status: stable Assessment/Plan IV abx spine eval at [facility](Dr.Lionel Sandra) will see pt there pain rx ivf wound care monitor labs transfuse as needed added protein supplements antiemetics transfer to [facility] for higher level of care called transfer center- financially cleared. waiting for bed Subjective ROS Limited/Unobtainable: No Constitutional: Reports: malaise, weakness HEENT: Reports: no symptoms Cardiovascular: Reports: no symptoms Respiratory: Reports: no symptoms Gastrointestinal/Abdominal: Reports: vomiting Genitourinary: Reports: no symptoms 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: Reports: pre-existing deficit Endocrine: Reports: no symptoms Hematologic/Lymphatic: Reports: no symptoms Allergies: Coded Allergies: CEFTRIAXONE (Verified Allergy, Intermediate, SOB, HR-140bpm, face swollen , pt became red, 10/24/15) CODEINE (Verified Allergy, Intermediate, SWELLING, 01/03/11) LATEX (Verified Allergy, Intermediate, SWELLING, 01/03/11) PIPERACILLIN (Verified Allergy, Intermediate, Itching, 08/29/15) 08/29/15 tolerates Ceftaroline TAZOBACTAM (Verified Allergy, Intermediate, Itching, 01/29/15) POLYMYXIN B (Verified Allergy, Mild, Rash, 04/08/16) Suspected allergy reported by VANCOMYCIN (Verified Allergy, Mild, 07/15/14) ASPARAGINASE (Verified Allergy, Unknown, 01/28/14) CEFUROXIME (Unverified Allergy, Unknown, 04/19/16) IRON (Verified Allergy, Unknown, 01/28/14) LATEX, NATURAL RUBBER (Unverified Allergy, Unknown, 06/18/16) All Systems: reviewed and negative except above Subjective vomiting this am. +output from colostomy. ct results noted. (spine) has agreed to see pt and consult when she arrives [facility] and they are aware. sitll waiting for bed. Objective Last 24 Hour Vital Signs Date Time Temp Pulse Resp B/P (MAP) Pulse Ox O2 Delivery O2 Flow Rate FiO2 07/09/17 00:00 90 18 100/55 96 07/09/17 00:00 88 07/08/17 20:00 91 07/08/17 20:00 99 20 89/59 96 07/08/17 19:01 80 20 Room Air 21 07/08/17 12:00 98.2 76 18 101/51 97 98.2 07/08/17 12:00 67 07/08/17 10:55 98 18 Room Air 21 Intake and Output 07/08/17 07/09/17 19:00 07:00 Intake Total 220 ml 100 ml Balance 220 ml 100 ml Intake Oral 120 ml IV Total 100 ml 100 ml # Voids 1 Laboratory Tests 07/09/17 03:30: White Blood Count 12.1H, Red Blood Count 3.62L, Hemoglobin 9.4L, Hematocrit 29.1L, Mean Corpuscular Volume 80, Mean Corpuscular Hemoglobin 26.1L, Mean Corpuscular Hemoglobin Concent 32.4, Red Cell Distribution Width 16.8H, Platelet Count 231, Mean Platelet Volume 8.1, Neutrophils (%) (Auto) 81.2H, Lymphocytes (%) (Auto) 15.8L, Monocytes (%) (Auto) 2.1, Eosinophils (%) (Auto) 0.7, Basophils (%) (Auto) 0.2, Sodium Level 141, Potassium Level 3.4L, Chloride Level 108H, Carbon Dioxide Level 25, Anion Gap 8, Blood Urea Nitrogen 5L, Creatinine 0.6, Estimat Glomerular Filtration Rate > 60, Glucose Level 82, Calcium Level 7.3L, Total Bilirubin 0.5, Aspartate Amino Transf (AST/SGOT) 8L, Alanine Aminotransferase (ALT/SGPT) < 6L, Alkaline Phosphatase 78, Total Protein 6.1L, Albumin 1.3L, Globulin 4.8, Albumin/Globulin Ratio 0.3L Height (Feet): 5 Height (Inches): 5.00 Weight (Pounds): 220 Objective General Appearance: WD/WN, alert Neck: supple Cardiovascular: normal rate Respiratory/Chest: lungs clear, normal breath sounds Abdomen: normal bowel sounds, non tender, soft, no organomegaly Edema: no edema noted Arm (L), no edema noted Arm (R), no edema noted Leg (L), no edema noted Leg (R), no edema noted Pedal (L), no edema noted Pedal (R), no edema noted Generalized Neurologic: motor weakness BONG BRUNNER Jul 09, 2017 08:14
--- NOTE | 2017-07-09 09:39 | Diagnostic Imaging Report ---
Indication: Reason For Exam: INFECT Technique: XRAY Chest 1v. Comparison: 07/07/2012 Findings: The cardiomediastinal silhouette is unchanged. No new infiltrates are identified. Again noted is retrocardiac opacity in the left base. Right pleural effusion and possible left pleural effusion again identified. Impression: No significant change from prior examination.
[2017-07-09] MEDS: Minocycline HCl 50mg cap ORAL SCH ×2 (10:08→20:35)
[2017-07-09] MEDS: DAPTOmycin 550 MG in NS 50 ML IV SCH (10:32)
[2017-07-09 12:00] VITALS: BP 99/54
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
--- NOTE | 2017-07-09 13:19 | Neurology Progress Note ---
Interim History Interim History ROS Limited/Unobtainable: No Objective Physical Exam Last Vital Signs Date Time Temp Pulse Resp B/P (MAP) Pulse Ox O2 Delivery O2 Flow Rate FiO2 07/09/17 13:13 98.2 07/09/17 12:00 84 18 99/54 100 07/09/17 08:17 Room Air 21 Laboratory Tests Test 07/09/17 03:30 White Blood Count 12.1 K/UL (4.8-10.8) H Red Blood Count 3.62 M/UL (4.20-5.40) L Hemoglobin 9.4 G/DL (12.0-16.0) L Hematocrit 29.1 % (37.0-47.0) L Mean Corpuscular Volume 80 FL (80-99) Mean Corpuscular Hemoglobin 26.1 PG (27.0-31.0) L Mean Corpuscular Hemoglobin Concent 32.4 G/DL (32.0-36.0) Red Cell Distribution Width 16.8 % (11.6-14.8) H Platelet Count 231 K/UL (150-450) Mean Platelet Volume 8.1 FL (6.5-10.1) Neutrophils (%) (Auto) 81.2 % (45.0-75.0) H Lymphocytes (%) (Auto) 15.8 % (20.0-45.0) L Monocytes (%) (Auto) 2.1 % (1.0-10.0) Eosinophils (%) (Auto) 0.7 % (0.0-3.0) Basophils (%) (Auto) 0.2 % (0.0-2.0) Sodium Level 141 MMOL/L (136-145) Potassium Level 3.4 MMOL/L (3.5-5.1) L Chloride Level 108 MMOL/L (98-107) H Carbon Dioxide Level 25 MMOL/L (21-32) Anion Gap 8 mmol/L (5-15) Blood Urea Nitrogen 5 mg/dL (7-18) L Creatinine 0.6 MG/DL (0.55-1.30) Estimat Glomerular Filtration Rate > 60 mL/min (>60) Glucose Level 82 MG/DL (74-106) Calcium Level 7.3 MG/DL (8.5-10.1) L Total Bilirubin 0.5 MG/DL (0.2-1.0) Aspartate Amino Transf (AST/SGOT) 8 U/L (15-37) L Alanine Aminotransferase (ALT/SGPT) < 6 U/L (12-78) L Alkaline Phosphatase 78 U/L (46-116) Total Protein 6.1 G/DL (6.4-8.2) L Albumin 1.3 G/DL (3.4-5.0) L Globulin 4.8 g/dL Albumin/Globulin Ratio 0.3 (1.0-2.7) L Impression/Recommendations Status: stable Recommendations #[id number] RICKI WELCH Jul 09, 2017 13:19
[2017-07-09 16:00] VITALS: BP 97/54
[2017-07-09] MEDS: Lidocaine 1% Plain 30 ml INJ SCH (16:00)
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
[2017-07-09 20:00] VITALS: BP 108/57
[2017-07-09] MEDS: Dyna-Hex 2% Top Sol 2oz TOPIC SCH (20:00)
[2017-07-09] MEDS ORDERED: Cyclobenzaprine 10mg Tab ORAL PRN (23:00)
[2017-07-10 00:20] VITALS: BP 101/67
[2017-07-10 04:00] VITALS: BP 114/62
[2017-07-10] MEDS: metroNIDAZOLE 500mg tab ORAL SCH ×2 (06:57→12:47)
[2017-07-10] MEDS: Minocycline HCl 50mg cap ORAL SCH (08:14)
[2017-07-10 08:16] VITALS: BP 90/58
[2017-07-10] MEDS ORDERED: Tubing IV Secondary IV ONE ×2 (10:15→13:56)
[2017-07-10] MEDS ORDERED: Tubing Blood Filter IV ONE (10:15)
[2017-07-10] MEDS ORDERED: NS 275ml ONE (10:15)
[2017-07-10] MEDS: DAPTOmycin 550 MG in NS 50 ML IV SCH (10:38)
[2017-07-10 11:11] LABS: HEMATOCRIT 29.1 % (37.0-47.0); HEMOGLOBIN 9.5 G/DL (12.0-16.0); MEAN CORPUSCULAR VOLUME 81 FL (80-99); PLATELET COUNT 226 K/UL (150-450); RED BLOOD COUNT 3.59 M/UL (4.20-5.40); WHITE BLOOD COUNT 14.2 K/UL (4.8-10.8)
[2017-07-10 11:17] LABS: ANION GAP 7 mmol/L (5-15); BLOOD UREA NITROGEN 7 mg/dL (7-18); CALCIUM 7.3 MG/DL (8.5-10.1); CARBON DIOXIDE 26 MMOL/L (21-32); CHLORIDE 108 MMOL/L (98-107); CREATININE 0.6 MG/DL (0.55-1.30); POTASSIUM 3.3 MMOL/L (3.5-5.1); SODIUM 141 MMOL/L (136-145)
[2017-07-10 12:00] VITALS: BP 97/50
--- NOTE | 2017-07-10 12:03 | General Progress Note ---
Assessment/Plan Assessment/Plan ASSESSMENT AND RECOMMENDATION: 1. Left femur osteomyelitis per history 2. Bilateral posterior thigh chronic wounds. 3. Chronic bilateral hip osteomyelitis 4. anemia 5. possible gib 6. severe protein calorie malnutrition 7. chronic pain syndrome 8. transaminitis 9. sinus tachycardia 10. fevers 11. sepsis and positive bcx 12. multiple abcessess 13. pleural effusions 14. acute osteo 15. coagulopathy 16. seizure PLAN neuro eval and recommendations noted monitor labs for change encourage po on IV antibiotics ID evaluation noted cultures reviewed awaiting acceptance to [facility] nutrition pain control as is guarded impression, plan, and exam edited and reviewed in detail care discussed with RN Subjective Allergies: Coded Allergies: CEFTRIAXONE (Verified Allergy, Intermediate, SOB, HR-140bpm, face swollen , pt became red, 10/24/15) CODEINE (Verified Allergy, Intermediate, SWELLING, 01/03/11) LATEX (Verified Allergy, Intermediate, SWELLING, 01/03/11) PIPERACILLIN (Verified Allergy, Intermediate, Itching, 08/29/15) 08/29/15 tolerates Ceftaroline TAZOBACTAM (Verified Allergy, Intermediate, Itching, 01/29/15) POLYMYXIN B (Verified Allergy, Mild, Rash, 04/08/16) Suspected allergy reported by MD VANCOMYCIN (Verified Allergy, Mild, 07/15/14) ASPARAGINASE (Verified Allergy, Unknown, 01/28/14) CEFUROXIME (Unverified Allergy, Unknown, 04/19/16) IRON (Verified Allergy, Unknown, 01/28/14) LATEX, NATURAL RUBBER (Unverified Allergy, Unknown, 06/18/16) Subjective events noted reviewed all- had seizure but no recurrence awaiting drainage Objective Last 24 Hour Vital Signs Date Time Temp Pulse Resp B/P (MAP) Pulse Ox O2 Delivery O2 Flow Rate FiO2 07/10/17 11:11 98.0 07/10/17 10:41 98.0 07/10/17 08:53 79 18 Room Air 21 07/10/17 08:22 68 07/10/17 08:16 98.0 76 18 90/58 98 Room Air 98.0 07/10/17 04:00 76 07/10/17 04:00 96.7 100 20 114/62 96 96.7 07/10/17 03:59 98.1 07/10/17 00:20 98.1 91 18 101/67 98 98.1 07/10/17 00:00 83 07/09/17 20:00 84 07/09/17 20:00 98.1 79 18 108/57 96 98.1 07/09/17 19:23 91 18 Room Air 21 07/09/17 17:25 98.2 07/09/17 16:00 86 07/09/17 16:00 98.2 86 18 97/54 98 98.2 07/09/17 13:13 98.2 Intake and Output 07/09/17 07/10/17 19:00 07:00 Intake Total 1670 ml Output Total 300 ml Balance 1670 ml -300 ml Intake Oral 720 ml IV Total 650 ml Other 300 ml Output Urine Total 300 ml # Voids 2 # Bowel Movements 1 Laboratory Tests 07/10/17 10:30: White Blood Count 14.2H, Red Blood Count 3.59L, Hemoglobin 9.5L, Hematocrit 29.1L, Mean Corpuscular Volume 81, Mean Corpuscular Hemoglobin 26.4L, Mean Corpuscular Hemoglobin Concent 32.6, Red Cell Distribution Width 17.0H, Platelet Count 226, Mean Platelet Volume 7.5, Neutrophils (%) (Auto) , Lymphocytes (%) (Auto) , Monocytes (%) (Auto) , Eosinophils (%) (Auto) , Basophils (%) (Auto) , Neutrophils % (Manual) [Pending], Lymphocytes % (Manual) [Pending], Platelet Estimate [Pending], Platelet Morphology [Pending], Sodium Level 141, Potassium Level 3.3L, Chloride Level 108H, Carbon Dioxide Level 26, Anion Gap 7, Blood Urea Nitrogen 7, Creatinine 0.6, Estimat Glomerular Filtration Rate > 60, Glucose Level 113H, Calcium Level 7.3L Height (Feet): 5 Height (Inches): 5.00 Weight (Pounds): 224 Objective WDWN comfortable and alert NAD reduced breath sounds bilaterally without rhonchi or wheeze [id number] without MRG NABS nontender obese no CC some edema paraplegic wounds noted LUANN MICHEL Jul 10, 2017 12:03
[2017-07-10 15:39] VITALS: BP 105/57
[2017-07-10] MEDS ORDERED: ALBUTEROL SULF8.5 GM INH (16:03)
[2017-07-10] MEDS ORDERED: CYCLOBENZAPRINE10 MG ORAL (16:03)
[2017-07-10] MEDS ORDERED: LEXAPRO10 MG ORAL (16:04)
[2017-07-10] MEDS ORDERED: DAPTOMYCIN500 MG IV (16:04)
[2017-07-10] MEDS ORDERED: FLUCONAZOLE100 MG IV ×2 (16:05→16:10)
[2017-07-10] MEDS ORDERED: DILAUDID 22 MG/1 M1 IV (16:06)
[2017-07-10] MEDS ORDERED: ZOFRAN 4 MG4 MG/2 ML IV (16:07)
[2017-07-10] MEDS ORDERED: METRONIDAZOLE500 MG ORAL (16:07)
[2017-07-10] MEDS ORDERED: MINOCIN100 MG PO (16:07)
[2017-07-10] MEDS ORDERED: PROTONIX40 MG ORAL (16:07)
[2017-07-10] MEDS ORDERED: LEVAQUIN500 MG IV (16:08)
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
--- NOTE | 2017-07-10 21:30 | Diagnostic Imaging Report ---
APPROVED REPORT CPT Code: 99304 Present Symptoms Comments: Pain BILATERAL: Imaging reveals a patent deep venous system bilaterally. There is no evidence of thrombus within the femoral, popliteal or tibial segments. The greater saphenous veins are also within normal limits. Doppler indicates normal spontaneous flow within these segments.
[2017-07-11] MEDS ORDERED: NS IV SCH (10:00)
[2017-07-11] MEDS ORDERED: DAPTOMYCIN IV SCH (10:00)
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
== END 2017-07-10 19:46 | disposition short-term general hospital (02) | DRG 871 ==
LOC: EMR 13:45 → 2E 13:50 → EDBEDREQ 19:24 → 4E 06-29 16:50 → 2W 06-30 21:45 → 2E 07-04 22:54
PROC: 30233N1 Transfusion of Nonautologous Red Blood Cells into Peripheral Vein, Percutaneous Approach (ICD-10-PCS; principal; 2017-06-27)
PROC: 0W993ZZ Drainage of Right Pleural Cavity, Percutaneous Approach (ICD-10-PCS; 2017-06-30)
PROC: B518ZZA Fluoroscopy of Superior Vena Cava, Guidance (ICD-10-PCS; 2017-07-01)
PROC: 02HV33Z Insertion of Infusion Device into Superior Vena Cava, Percutaneous Approach (ICD-10-PCS; 2017-07-01)
DX: A41.02 Sepsis due to Methicillin resistant Staphylococcus aureus (principal); L89.154 Pressure ulcer of sacral region, stage 4; L89.224 Pressure ulcer of left hip, stage 4; L89.894 Pressure ulcer of other site, stage 4; E43 Unspecified severe protein-calorie malnutrition; R57.1 Hypovolemic shock; M86.8X5 Other osteomyelitis, thigh; M46.26 Osteomyelitis of vertebra, lumbar region; M86.652 Other chronic osteomyelitis, left thigh; M86.651 Other chronic osteomyelitis, right thigh; M86.68 Other chronic osteomyelitis, other site; G82.20 Paraplegia, unspecified; J90 Pleural effusion, not elsewhere classified; N13.30 Unspecified hydronephrosis; K80.51 Calculus of bile duct without cholangitis or cholecystitis with obstruction; K76.6 Portal hypertension; A41.81 Sepsis due to Enterococcus; G89.4 Chronic pain syndrome; R00.0 Tachycardia, unspecified; I95.9 Hypotension, unspecified; Z93.3 Colostomy status; K43.5 Parastomal hernia without obstruction or gangrene; T14.8XXS Other injury of unspecified body region, sequela; X93.XXXS Assault by handgun discharge, sequela; Z74.01 Bed confinement status; D50.0 Iron deficiency anemia secondary to blood loss (chronic); R74.0 Nonspecific elevation of levels of transaminase and lactic acid dehydrogenase [LDH]; R56.9 Unspecified convulsions; F41.9 Anxiety disorder, unspecified; F32.9 Major depressive disorder, single episode, unspecified; R32 Unspecified urinary incontinence; M46.46 Discitis, unspecified, lumbar region; R16.2 Hepatomegaly with splenomegaly, not elsewhere classified
CPT/HCPCS: 36415; 36569; 71045; 74177; 76700; 76937; 76942; 80048; 80053; 82248; 82270; 83540; 83550; 83690; 83880; 84155; 85007; 85025; 85610; 85651; 85730; 86705; 86709; 86803; 86850; 86900; 86901; 86920; 87040; 87070; 87181; 87205; 87324; 87340; 93306; 93970; 94640; 94664; 99285; J2405; J7620; J8499

== ENCOUNTER 2017-07-14 15:07 | Inpatient (IN) | payer MEDICARE, OTHER ==
[~2017-07-14] VITALS: Ht 165.1 cm; Wt 89.8 kg
[~2017-07-14 15:07] MED LIST changes: +ALBUTEROL SULF8.5 GM INH; +CYCLOBENZAPRINE10 MG ORAL; +DILAUDID 22 MG/1 M1 IV; +FLUCONAZOLE100 MG IV; +LEVAQUIN500 MG IV; +LEXAPRO10 MG ORAL; +MINOCIN100 MG PO
[2017-07-14] MEDS: Cyclobenzaprine 10mg Tab ORAL SCH (22:45)
[2017-07-14] MEDS ORDERED: HYDROmorphone 1mg/ml Carpuject IVP PRN (22:45)
[2017-07-14] MEDS ORDERED: Albuterol 90mcg Inhaler 8gm INH PRN (23:00)
[2017-07-14] MEDS ORDERED: Cyclobenzaprine 10mg Tab ORAL PRN (23:00)
[2017-07-15] MEDS ORDERED: HYDROmorphone 1mg/ml Carpuject IVP PRN (02:45)
[2017-07-15] MEDS: metroNIDAZOLE 500mg tab ORAL SCH ×3 (06:10→20:51)
[2017-07-15 08:00] VITALS: BP 107/61
[2017-07-15] MEDS: Cyclobenzaprine 10mg Tab ORAL SCH ×3 (09:00→18:00)
--- NOTE | 2017-07-15 09:04 | General Progress Note ---
Assessment/Plan Problem List: (1) Chronic osteomyelitis of hip ICD Codes: M86.68 - Other chronic osteomyelitis, other site SNOMED: 019155557 (2) Pressure ulcer ICD Codes: L89.90 - Decubitus ulcer SNOMED: 165475487 (3) Abscess ICD Codes: L02.91 - Abscess SNOMED: 418567780 Status: stable, progressing Assessment/Plan abx wound care Subjective ROS Limited/Unobtainable: No Constitutional: Reports: malaise, weakness HEENT: Reports: no symptoms Cardiovascular: Reports: no symptoms Respiratory: Reports: no symptoms Gastrointestinal/Abdominal: Reports: no symptoms Genitourinary: Reports: no symptoms 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: Reports: no symptoms Endocrine: Reports: no symptoms Hematologic/Lymphatic: Reports: no symptoms Allergies: Coded Allergies: CEFTRIAXONE (Verified Allergy, Intermediate, SOB, HR-140bpm, face swollen , pt became red, 10/24/15) CODEINE (Verified Allergy, Intermediate, SWELLING, 01/03/11) LATEX (Verified Allergy, Intermediate, SWELLING, 01/03/11) PIPERACILLIN (Verified Allergy, Intermediate, Itching, 08/29/15) 08/29/15 tolerates Ceftaroline TAZOBACTAM (Verified Allergy, Intermediate, Itching, 01/29/15) POLYMYXIN B (Verified Allergy, Mild, Rash, 04/08/16) Suspected allergy reported by VANCOMYCIN (Verified Allergy, Mild, 07/15/14) ASPARAGINASE (Verified Allergy, Unknown, 01/28/14) CEFUROXIME (Unverified Allergy, Unknown, 04/19/16) IRON (Verified Allergy, Unknown, 01/28/14) LATEX, NATURAL RUBBER (Unverified Allergy, Unknown, 06/18/16) All Systems: reviewed and negative except above Subjective pain. Objective Last 24 Hour Vital Signs Date Time Temp Pulse Resp B/P (MAP) Pulse Ox O2 Delivery O2 Flow Rate FiO2 07/15/17 08:00 97.6 97 18 107/61 97 97.6 07/15/17 07:37 71 18 Room Air 21 07/14/17 21:00 98.6 20 98 Room Air 98.6 Height (Feet): 5 Height (Inches): 5.00 Weight (Pounds): 200 General Appearance: WD/WN Neck: supple Cardiovascular: normal rate Respiratory/Chest: chest wall non-tender, lungs clear Abdomen: normal bowel sounds, non tender, soft, no organomegaly Edema: no edema noted Arm (L), no edema noted Arm (R), no edema noted Leg (L), no edema noted Leg (R), no edema noted Pedal (L), no edema noted Pedal (R), no edema noted Generalized BONG BRUNNER Jul 15, 2017 09:04
[2017-07-15] MEDS ORDERED: DAPTOMYCIN IV SCH (10:00)
[2017-07-15] MEDS ORDERED: NS IV SCH (10:00)
[2017-07-15] MEDS: Minocycline HCl 50mg cap ORAL SCH ×2 (10:15→20:53)
[2017-07-15 10:27] LABS: BASOPHILS % (AUTO) 0.4 % (0.0-2.0); EOSINOPHILS % (AUTO) 0.8 % (0.0-3.0); HEMATOCRIT 25.4 % (37.0-47.0); HEMOGLOBIN 8.1 G/DL (12.0-16.0); LYMPHOCYTES % (AUTO) 15.7 % (20.0-45.0); MEAN CORPUSCULAR VOLUME 82 FL (80-99); MONOCYTES % (AUTO) 2.4 % (1.0-10.0); NEUTROPHILS % (AUTO) 80.8 % (45.0-75.0); PLATELET COUNT 280 K/UL (150-450); RED BLOOD COUNT 3.12 M/UL (4.20-5.40); RED CELL DISTRIBUTION WIDTH 17.2 % (11.6-14.8); WHITE BLOOD COUNT 11.1 K/UL (4.8-10.8)
[2017-07-15 10:50] LABS: ANION GAP 4 mmol/L (5-15); BLOOD UREA NITROGEN 8 mg/dL (7-18); CALCIUM 7.3 MG/DL (8.5-10.1); CARBON DIOXIDE 27 MMOL/L (21-32); CHLORIDE 106 MMOL/L (98-107); CREATININE 0.7 MG/DL (0.55-1.30); POTASSIUM 3.2 MMOL/L (3.5-5.1); SODIUM 137 MMOL/L (136-145)
[2017-07-15 11:52] VITALS: BP 100/54
[2017-07-15] MEDS: NS IV SCH (12:13)
[2017-07-15] MEDS: DAPTOMYCIN IV SCH (12:13)
[2017-07-15 15:38] VITALS: BP 117/65
[2017-07-15 21:00] VITALS: BP 105/58
[2017-07-15] MEDS: Heparin 5000 units/ml inj SUBQ SCH (21:01)
[2017-07-16 04:00] VITALS: BP 104/53
[2017-07-16] MEDS: metroNIDAZOLE 500mg tab ORAL SCH ×3 (05:00→23:00)
[2017-07-16 08:20] VITALS: BP 101/59
[2017-07-16] MEDS: Cyclobenzaprine 10mg Tab ORAL SCH ×3 (09:00→17:00)
[2017-07-16] MEDS: Heparin 5000 units/ml inj SUBQ SCH ×2 (09:00→20:01)
[2017-07-16] MEDS: Minocycline HCl 50mg cap ORAL SCH ×2 (09:06→19:59)
--- NOTE | 2017-07-16 09:10 | General Progress Note ---
Assessment/Plan Problem List: (1) Chronic osteomyelitis of hip ICD Codes: M86.68 - Other chronic osteomyelitis, other site SNOMED: 765991585 (2) Pressure ulcer ICD Codes: L89.90 - Decubitus ulcer SNOMED: 604716190 (3) Abscess ICD Codes: L02.91 - Abscess SNOMED: 477575318 Status: stable Assessment/Plan abx wound care plastics eval pain control Subjective ROS Limited/Unobtainable: No Constitutional: Reports: malaise, weakness HEENT: Reports: no symptoms Cardiovascular: Reports: no symptoms Respiratory: Reports: no symptoms Gastrointestinal/Abdominal: Reports: no symptoms Genitourinary: Reports: no symptoms 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: Reports: pre-existing deficit Endocrine: Reports: no symptoms Hematologic/Lymphatic: Reports: no symptoms Allergies: Coded Allergies: CEFTRIAXONE (Verified Allergy, Intermediate, SOB, HR-140bpm, face swollen , pt became red, 10/24/15) CODEINE (Verified Allergy, Intermediate, SWELLING, 01/03/11) LATEX (Verified Allergy, Intermediate, SWELLING, 01/03/11) PIPERACILLIN (Verified Allergy, Intermediate, Itching, 08/29/15) 08/29/15 tolerates Ceftaroline TAZOBACTAM (Verified Allergy, Intermediate, Itching, 01/29/15) POLYMYXIN B (Verified Allergy, Mild, Rash, 04/08/16) Suspected allergy reported by VANCOMYCIN (Verified Allergy, Mild, 07/15/14) ASPARAGINASE (Verified Allergy, Unknown, 01/28/14) CEFUROXIME (Unverified Allergy, Unknown, 04/19/16) IRON (Verified Allergy, Unknown, 01/28/14) LATEX, NATURAL RUBBER (Unverified Allergy, Unknown, 06/18/16) All Systems: reviewed and negative except above Subjective pain. wants boost. Objective Last 24 Hour Vital Signs Date Time Temp Pulse Resp B/P (MAP) Pulse Ox O2 Delivery O2 Flow Rate FiO2 07/16/17 08:20 98.6 86 20 101/59 97 98.6 07/16/17 04:00 98.2 87 18 104/53 96 98.2 07/15/17 21:00 99.0 91 18 105/58 95 99.0 07/15/17 20:37 75 18 Room Air 21 07/15/17 18:10 98.4 07/15/17 18:00 98.4 07/15/17 17:40 98.4 07/15/17 15:38 98.4 93 18 117/65 100 98.4 07/15/17 14:57 98.2 07/15/17 14:27 98.2 07/15/17 13:00 98.2 07/15/17 11:52 98.2 102 18 100/54 99 98.2 07/15/17 10:17 97.6 Intake and Output 07/15/17 07/16/17 19:00 07:00 Intake Total 1070 ml 500 ml Balance 1070 ml 500 ml Intake Oral 1070 ml 500 ml # Voids 2 1 Laboratory Tests 07/15/17 10:10: White Blood Count 11.1H, Red Blood Count 3.12L, Hemoglobin 8.1L, Hematocrit 25.4L, Mean Corpuscular Volume 82, Mean Corpuscular Hemoglobin 25.9L, Mean Corpuscular Hemoglobin Concent 31.7L, Red Cell Distribution Width 17.2H, Platelet Count 280, Mean Platelet Volume 7.0, Neutrophils (%) (Auto) 80.8H, Lymphocytes (%) (Auto) 15.7L, Monocytes (%) (Auto) 2.4, Eosinophils (%) (Auto) 0.8, Basophils (%) (Auto) 0.4, Sodium Level 137, Potassium Level 3.2L, Chloride Level 106, Carbon Dioxide Level 27, Anion Gap 4L, Blood Urea Nitrogen 8, Creatinine 0.7, Estimat Glomerular Filtration Rate > 60, Glucose Level 118H, Calcium Level 7.3L Height (Feet): 5 Height (Inches): 5.00 Weight (Pounds): 200 Objective General Appearance: WD/WN Neck: supple Cardiovascular: normal rate Respiratory/Chest: chest wall non-tender, lungs clear Abdomen: normal bowel sounds, non tender, soft, no organomegaly Edema: no edema noted Arm (L), no edema noted Arm (R), no edema noted Leg (L), no edema noted Leg (R), no edema noted Pedal (L), no edema noted Pedal (R), no edema noted Generalized BONG BRUNNER Jul 16, 2017 09:10
--- NOTE | 2017-07-16 09:42 | Pulmonology Progress Note ---
Assessment/Plan Assessment/Plan pleural effusions pulmonary infiltrates multiple abceesses paraplegia paraspinous abcess PLAN care noted IV antibiotics monitor imaging monitor cxr monitor oxygen impression, plan, and exam edited and reviewed in detail care discussed with RN Subjective Allergies: Coded Allergies: CEFTRIAXONE (Verified Allergy, Intermediate, SOB, HR-140bpm, face swollen , pt became red, 10/24/15) CODEINE (Verified Allergy, Intermediate, SWELLING, 01/03/11) LATEX (Verified Allergy, Intermediate, SWELLING, 01/03/11) PIPERACILLIN (Verified Allergy, Intermediate, Itching, 08/29/15) 08/29/15 tolerates Ceftaroline TAZOBACTAM (Verified Allergy, Intermediate, Itching, 01/29/15) POLYMYXIN B (Verified Allergy, Mild, Rash, 04/08/16) Suspected allergy reported by VANCOMYCIN (Verified Allergy, Mild, 07/15/14) ASPARAGINASE (Verified Allergy, Unknown, 01/28/14) CEFUROXIME (Unverified Allergy, Unknown, 04/19/16) IRON (Verified Allergy, Unknown, 01/28/14) LATEX, NATURAL RUBBER (Unverified Allergy, Unknown, 06/18/16) Subjective transferred back to [place] Objective Last 24 Hour Vital Signs Date Time Temp Pulse Resp B/P (MAP) Pulse Ox O2 Delivery O2 Flow Rate FiO2 07/16/17 08:20 98.6 86 20 101/59 97 98.6 07/16/17 04:00 98.2 87 18 104/53 96 98.2 07/15/17 21:00 99.0 91 18 105/58 95 99.0 07/15/17 20:37 75 18 Room Air 21 07/15/17 18:10 98.4 07/15/17 18:00 98.4 07/15/17 17:40 98.4 07/15/17 15:38 98.4 93 18 117/65 100 98.4 07/15/17 14:57 98.2 07/15/17 14:27 98.2 07/15/17 13:00 98.2 07/15/17 11:52 98.2 102 18 100/54 99 98.2 07/15/17 10:17 97.6 Intake and Output 07/15/17 07/16/17 19:00 07:00 Intake Total 1070 ml 500 ml Balance 1070 ml 500 ml Intake Oral 1070 ml 500 ml # Voids 2 1 Objective WDWN NAD reduced breath sounds bilaterally without rhonchi or wheeze [id number] without MRG NABS nontender no HSM no CCE paraplegic Laboratory Tests 07/15/17 10:10: White Blood Count 11.1H, Red Blood Count 3.12L, Hemoglobin 8.1L, Hematocrit 25.4L, Mean Corpuscular Volume 82, Mean Corpuscular Hemoglobin 25.9L, Mean Corpuscular Hemoglobin Concent 31.7L, Red Cell Distribution Width 17.2H, Platelet Count 280, Mean Platelet Volume 7.0, Neutrophils (%) (Auto) 80.8H, Lymphocytes (%) (Auto) 15.7L, Monocytes (%) (Auto) 2.4, Eosinophils (%) (Auto) 0.8, Basophils (%) (Auto) 0.4, Sodium Level 137, Potassium Level 3.2L, Chloride Level 106, Carbon Dioxide Level 27, Anion Gap 4L, Blood Urea Nitrogen 8, Creatinine 0.7, Estimat Glomerular Filtration Rate > 60, Glucose Level 118H, Calcium Level 7.3L Current Medications Medications (Trade) Dose Ordered Sig/Pineda Route PRN Reason Start Time Stop Time Status Last Admin Dose Admin Acetaminophen (Tylenol) 650 mg Q6H PRN ORAL Mild Pain/Temp > 100.5 07/14/17 23:00 08/13/17 22:59 Albuterol Sulfate (Proventil MDI) 2 puff Q4H PRN INH Shortness of Breath 07/14/17 23:00 08/13/17 22:59 Cyclobenzaprine HCl (Flexeril) 10 mg THREE TIMES A DAY ORAL 07/14/17 22:45 08/13/17 22:44 Cyclobenzaprine HCl (Flexeril) 10 mg THREE TIMES A DAY PRN ORAL Muscle Spasm 07/14/17 23:00 08/13/17 22:59 Daptomycin 600 mg/ Sodium Chloride 110 ml @ 220 mls/hr Q24H IV 07/15/17 11:30 07/22/17 11:29 07/15/17 12:13 Escitalopram Oxalate (Lexapro) 10 mg DAILY ORAL 07/15/17 09:00 08/14/17 08:59 Fluconazole/ Sodium Chloride 200 ml @ 100 mls/hr Q24H IV 07/15/17 18:00 07/22/17 17:59 07/15/17 18:00 Heparin Sodium (Porcine) (Heparin 5000 units/ml) 5,000 units EVERY 12 HOURS SUBQ 07/15/17 21:00 08/14/17 20:59 07/15/17 21:01 Hydromorphone HCl (Dilaudid) 1 mg Q4H PRN IVP Moderate Pain (Pain Scale 4-6) 07/15/17 02:45 07/21/17 22:44 07/15/17 17:40 Hydromorphone HCl (Dilaudid) 2 mg Q3H PRN IVP Severe Pain (Pain Scale 7-10) 07/15/17 00:30 07/22/17 00:29 07/16/17 08:04 Levofloxacin 100 ml @ 100 mls/hr Q24H IVPB 07/15/17 10:30 07/22/17 10:29 07/15/17 10:55 Metronidazole (Flagyl) 500 mg Q8HR ORAL 07/15/17 06:00 07/22/17 05:59 07/16/17 05:00 Minocycline HCl (Minocin) 200 mg Q12HR ORAL 07/15/17 09:00 07/22/17 08:59 07/16/17 09:06 Ondansetron HCl (Zofran) 4 mg Q6H PRN IVP Nausea & Vomiting 07/14/17 23:00 08/13/17 22:59 07/16/17 08:03 Pantoprazole (Protonix) 40 mg DAILY@0600 ORAL 07/15/17 06:00 08/14/17 05:59 07/16/17 05:00 LUANN MICHEL Jul 16, 2017 09:41
[2017-07-16 12:07] VITALS: BP 99/57
[2017-07-16] MEDS: NS IV SCH (12:34)
[2017-07-16] MEDS: DAPTOMYCIN IV SCH (12:34)
[2017-07-16] MEDS ORDERED: Tubing IV Secondary IV ONE (14:58)
[2017-07-16] MEDS ORDERED: NS 500ML ONE (14:58)
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
[2017-07-16 16:07] VITALS: BP 108/64
--- NOTE | 2017-07-16 16:48 | General Progress Note ---
Assessment/Plan Assessment/Plan Assessment - Anemia - prior negative EGD and Colonoscopy - malnutrition, low albumin - improving - Spine osteo - paraspinous abscess - (R) hydro - cholelithiasis - abnormal LFT - ? passed a stone - resolved - Hepatosplenomegally, ? early portal HTN - (+) GB stones/sludge - Chronic wounds - leukocytosis Recommendations - Push po / protein supplements - follow labs - wound care - ID f/u - monitor intake - Ensure TID PO (delayed entry - seen 07/15/17) Subjective Allergies: Coded Allergies: CEFTRIAXONE (Verified Allergy, Intermediate, SOB, HR-140bpm, face swollen , pt became red, 10/24/15) CODEINE (Verified Allergy, Intermediate, SWELLING, 01/03/11) LATEX (Verified Allergy, Intermediate, SWELLING, 01/03/11) PIPERACILLIN (Verified Allergy, Intermediate, Itching, 08/29/15) 08/29/15 tolerates Ceftaroline TAZOBACTAM (Verified Allergy, Intermediate, Itching, 01/29/15) POLYMYXIN B (Verified Allergy, Mild, Rash, 04/08/16) Suspected allergy reported by VANCOMYCIN (Verified Allergy, Mild, 07/15/14) ASPARAGINASE (Verified Allergy, Unknown, 01/28/14) CEFUROXIME (Unverified Allergy, Unknown, 04/19/16) IRON (Verified Allergy, Unknown, 01/28/14) LATEX, NATURAL RUBBER (Unverified Allergy, Unknown, 06/18/16) Subjective Feels OK no new complaints Objective Last 24 Hour Vital Signs Date Time Temp Pulse Resp B/P (MAP) Pulse Ox O2 Delivery O2 Flow Rate FiO2 07/16/17 16:07 98.6 95 20 108/64 94 98.6 07/16/17 12:07 98.2 91 20 99/57 97 98.2 07/16/17 09:32 86 20 Room Air 21 07/16/17 08:20 98.6 86 20 101/59 97 98.6 07/16/17 04:00 98.2 87 18 104/53 96 98.2 07/15/17 21:00 99.0 91 18 105/58 95 99.0 07/15/17 20:37 75 18 Room Air 21 07/15/17 18:10 98.4 07/15/17 18:00 98.4 07/15/17 17:40 98.4 Intake and Output 07/15/17 07/16/17 19:00 07:00 Intake Total 1070 ml 500 ml Balance 1070 ml 500 ml Intake Oral 1070 ml 500 ml # Voids 2 1 Height (Feet): 5 Height (Inches): 5.00 Weight (Pounds): 200 Objective WDWN NCAT supple CTA RRR abd soft, (+) LLQ ostomy (+) paraplegia wounds noted PITER DEAN Jul 16, 2017 16:48
[2017-07-16 19:58] VITALS: BP 101/62
[2017-07-16] MEDS: Dyna-Hex 2% Top Sol 2oz TOPIC SCH (19:59)
[2017-07-17] VITALS (7 sets, daily range): BP systolic 90–119; BP diastolic 53–66
[2017-07-17] MEDS: metroNIDAZOLE 500mg tab ORAL SCH ×3 (04:58→23:02)
[2017-07-17 07:32] LABS: BASOPHILS % (AUTO) 0.3 % (0.0-2.0); EOSINOPHILS % (AUTO) 1.6 % (0.0-3.0); HEMATOCRIT 26.2 % (37.0-47.0); HEMOGLOBIN 8.2 G/DL (12.0-16.0); LYMPHOCYTES % (AUTO) 19.9 % (20.0-45.0); MEAN CORPUSCULAR VOLUME 83 FL (80-99); MONOCYTES % (AUTO) 3.9 % (1.0-10.0); NEUTROPHILS % (AUTO) 74.3 % (45.0-75.0); PLATELET COUNT 305 K/UL (150-450); RED BLOOD COUNT 3.16 M/UL (4.20-5.40); RED CELL DISTRIBUTION WIDTH 17.3 % (11.6-14.8); WHITE BLOOD COUNT 9.4 K/UL (4.8-10.8)
[2017-07-17 07:58] LABS: ALBUMIN 1.2 G/DL (3.4-5.0); ALBUMIN/GLOBULIN RATIO 0.2 (1.0-2.7); ALKALINE PHOSPHATASE 76 U/L (46-116); ANION GAP 6 mmol/L (5-15); ASPARTATE AMINO TRANSFERASE 9 U/L (15-37); BILIRUBIN,TOTAL 0.4 MG/DL (0.2-1.0); BLOOD UREA NITROGEN 9 mg/dL (7-18); CALCIUM 7.9 MG/DL (8.5-10.1); CARBON DIOXIDE 28 MMOL/L (21-32); CHLORIDE 104 MMOL/L (98-107); CREATININE 0.7 MG/DL (0.55-1.30); POTASSIUM 3.7 MMOL/L (3.5-5.1); SODIUM 138 MMOL/L (136-145)
[2017-07-17 08:08] LABS: ALANINE AMINOTRANSFERASE < 6 U/L (12-78)
[2017-07-17] MEDS: Cyclobenzaprine 10mg Tab ORAL SCH ×3 (08:52→17:59)
[2017-07-17] MEDS: Heparin 5000 units/ml inj SUBQ SCH ×2 (08:52→20:03)
--- NOTE | 2017-07-17 09:01 | General Progress Note ---
Assessment/Plan Problem List: (1) Chronic osteomyelitis of hip ICD Codes: M86.68 - Other chronic osteomyelitis, other site SNOMED: 401416531 (2) Pressure ulcer ICD Codes: L89.90 - Decubitus ulcer SNOMED: 507069669 (3) Abscess ICD Codes: L02.91 - Abscess SNOMED: 363278805 Status: stable, progressing Assessment/Plan abx wound care plastics eval pending ?surgery eval for ID and/or drain pain control Subjective ROS Limited/Unobtainable: No Constitutional: Reports: malaise, weakness HEENT: Reports: no symptoms Cardiovascular: Reports: no symptoms Respiratory: Reports: no symptoms Gastrointestinal/Abdominal: Reports: vomiting Genitourinary: Reports: no symptoms 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: Reports: no symptoms Hematologic/Lymphatic: Reports: no symptoms Allergies: Coded Allergies: CEFTRIAXONE (Verified Allergy, Intermediate, SOB, HR-140bpm, face swollen , pt became red, 10/24/15) CODEINE (Verified Allergy, Intermediate, SWELLING, 01/03/11) LATEX (Verified Allergy, Intermediate, SWELLING, 01/03/11) PIPERACILLIN (Verified Allergy, Intermediate, Itching, 08/29/15) 08/29/15 tolerates Ceftaroline TAZOBACTAM (Verified Allergy, Intermediate, Itching, 01/29/15) POLYMYXIN B (Verified Allergy, Mild, Rash, 04/08/16) Suspected allergy reported by VANCOMYCIN (Verified Allergy, Mild, 07/15/14) ASPARAGINASE (Verified Allergy, Unknown, 01/28/14) CEFUROXIME (Unverified Allergy, Unknown, 04/19/16) IRON (Verified Allergy, Unknown, 01/28/14) LATEX, NATURAL RUBBER (Unverified Allergy, Unknown, 06/18/16) All Systems: reviewed and negative except above Subjective pain controlled. on current rx. still with frequent bouts of vomiting. on iv abx Objective Last 24 Hour Vital Signs Date Time Temp Pulse Resp B/P (MAP) Pulse Ox O2 Delivery O2 Flow Rate FiO2 07/17/17 08:09 97.0 98 18 99/57 97 Room Air 97.0 07/17/17 05:29 98.8 07/17/17 04:59 98.8 07/17/17 04:00 98.9 97 18 108/57 94 98.9 07/17/17 02:04 98.8 07/17/17 00:35 98 Room Air 07/17/17 00:32 98.8 93 17 99/60 98 98.8 07/16/17 23:01 99.0 07/16/17 20:34 97 Room Air 07/16/17 20:00 99.0 07/16/17 19:58 99.0 75 18 101/62 97 99.0 07/16/17 18:49 79 20 Room Air 21 07/16/17 16:07 98.6 95 20 108/64 94 98.6 07/16/17 12:07 98.2 91 20 99/57 97 98.2 07/16/17 09:32 86 20 Room Air 21 Intake and Output 07/16/17 07/17/17 19:00 07:00 Intake Total 1130 ml 800 ml Balance 1130 ml 800 ml Intake Oral 720 ml 800 ml IV Total 410 ml # Voids 3 2 # Bowel Movements 1 Laboratory Tests 07/17/17 05:00: White Blood Count 9.4, Red Blood Count 3.16L, Hemoglobin 8.2L, Hematocrit 26.2L , Mean Corpuscular Volume 83, Mean Corpuscular Hemoglobin 26.0L, Mean Corpuscular Hemoglobin Concent 31.4L, Red Cell Distribution Width 17.3H, Platelet Count 305, Mean Platelet Volume 7.0, Neutrophils (%) (Auto) 74.3, Lymphocytes (%) (Auto) 19.9L, Monocytes (%) (Auto) 3.9, Eosinophils (%) (Auto) 1.6, Basophils (%) (Auto) 0.3, Erythrocyte Sedimentation Rate 132H, Sodium Level 138, Potassium Level 3.7, Chloride Level 104, Carbon Dioxide Level 28, Anion Gap 6, Blood Urea Nitrogen 9, Creatinine 0.7, Estimat Glomerular Filtration Rate > 60, Glucose Level 81, Calcium Level 7.9L, Total Bilirubin 0.4 , Aspartate Amino Transf (AST/SGOT) 9L, Alanine Aminotransferase (ALT/SGPT) < 6L , Alkaline Phosphatase 76, Total Protein 6.4, Albumin 1.2L, Globulin 5.2, Albumin/Globulin Ratio 0.2L Height (Feet): 5 Height (Inches): 5.00 Weight (Pounds): 200 Objective General Appearance: WD/WN Neck: supple Cardiovascular: normal rate Respiratory/Chest: chest wall non-tender, lungs clear Abdomen: normal bowel sounds, non tender, soft, no organomegaly Edema: no edema noted Arm (L), no edema noted Arm (R), no edema noted Leg (L), no edema noted Leg (R), no edema noted Pedal (L), no edema noted Pedal (R), no edema noted Generalized BONG BRUNNER Jul 17, 2017 09:01
[2017-07-17] MEDS: Minocycline HCl 50mg cap ORAL SCH ×2 (10:14→20:02)
--- NOTE | 2017-07-17 10:30 | Pulmonology Progress Note ---
Assessment/Plan Assessment/Plan pleural effusions pulmonary infiltrates multiple abceesses paraplegia paraspinous abcess PLAN care noted IV antibiotics noted monitor imaging for change monitor cxr and tap PRN monitor oxygen needs impression, plan, and exam edited and reviewed in detail care discussed with RN Subjective Allergies: Coded Allergies: CEFTRIAXONE (Verified Allergy, Intermediate, SOB, HR-140bpm, face swollen , pt became red, 10/24/15) CODEINE (Verified Allergy, Intermediate, SWELLING, 01/03/11) LATEX (Verified Allergy, Intermediate, SWELLING, 01/03/11) PIPERACILLIN (Verified Allergy, Intermediate, Itching, 08/29/15) 08/29/15 tolerates Ceftaroline TAZOBACTAM (Verified Allergy, Intermediate, Itching, 01/29/15) POLYMYXIN B (Verified Allergy, Mild, Rash, 04/08/16) Suspected allergy reported by VANCOMYCIN (Verified Allergy, Mild, 07/15/14) ASPARAGINASE (Verified Allergy, Unknown, 01/28/14) CEFUROXIME (Unverified Allergy, Unknown, 04/19/16) IRON (Verified Allergy, Unknown, 01/28/14) LATEX, NATURAL RUBBER (Unverified Allergy, Unknown, 06/18/16) Subjective care noted and reviewed no distress Objective Last 24 Hour Vital Signs Date Time Temp Pulse Resp B/P (MAP) Pulse Ox O2 Delivery O2 Flow Rate FiO2 07/17/17 08:09 97.0 98 18 99/57 97 Room Air 97.0 07/17/17 07:55 106 20 Room Air 21 07/17/17 05:29 98.8 07/17/17 04:59 98.8 07/17/17 04:00 98.9 97 18 108/57 94 98.9 07/17/17 02:04 98.8 07/17/17 00:35 98 Room Air 07/17/17 00:32 98.8 93 17 99/60 98 98.8 07/16/17 23:01 99.0 07/16/17 20:34 97 Room Air 07/16/17 20:00 99.0 07/16/17 19:58 99.0 75 18 101/62 97 99.0 07/16/17 18:49 79 20 Room Air 21 07/16/17 16:07 98.6 95 20 108/64 94 98.6 07/16/17 12:07 98.2 91 20 99/57 97 98.2 Intake and Output 07/16/17 07/17/17 19:00 07:00 Intake Total 1130 ml 800 ml Balance 1130 ml 800 ml Intake Oral 720 ml 800 ml IV Total 410 ml # Voids 3 2 # Bowel Movements 1 Objective WDWN NAD reduced breath sounds bilaterally without rhonchi or wheeze [id number] without MRG NABS nontender no HSM no CCE paraplegic Laboratory Tests 07/17/17 05:00: White Blood Count 9.4, Red Blood Count 3.16L, Hemoglobin 8.2L, Hematocrit 26.2L , Mean Corpuscular Volume 83, Mean Corpuscular Hemoglobin 26.0L, Mean Corpuscular Hemoglobin Concent 31.4L, Red Cell Distribution Width 17.3H, Platelet Count 305, Mean Platelet Volume 7.0, Neutrophils (%) (Auto) 74.3, Lymphocytes (%) (Auto) 19.9L, Monocytes (%) (Auto) 3.9, Eosinophils (%) (Auto) 1.6, Basophils (%) (Auto) 0.3, Erythrocyte Sedimentation Rate 132H, Sodium Level 138, Potassium Level 3.7, Chloride Level 104, Carbon Dioxide Level 28, Anion Gap 6, Blood Urea Nitrogen 9, Creatinine 0.7, Estimat Glomerular Filtration Rate > 60, Glucose Level 81, Calcium Level 7.9L, Total Bilirubin 0.4 , Aspartate Amino Transf (AST/SGOT) 9L, Alanine Aminotransferase (ALT/SGPT) < 6L , Alkaline Phosphatase 76, Total Protein 6.4, Albumin 1.2L, Globulin 5.2, Albumin/Globulin Ratio 0.2L Current Medications Medications (Trade) Dose Ordered Sig/Pineda Route PRN Reason Start Time Stop Time Status Last Admin Dose Admin Acetaminophen (Tylenol) 650 mg Q6H PRN ORAL Mild Pain/Temp > 100.5 07/14/17 23:00 08/13/17 22:59 Albuterol Sulfate (Proventil MDI) 2 puff Q4H PRN INH Shortness of Breath 07/14/17 23:00 08/13/17 22:59 Chlorhexidine Gluconate (Nereida-Hex 2%) 1 applic DAILY@1999 TOPIC 07/16/17 20:00 08/15/17 19:59 07/16/17 19:59 Cyclobenzaprine HCl (Flexeril) 10 mg THREE TIMES A DAY ORAL 07/14/17 22:45 08/13/17 22:44 Cyclobenzaprine HCl (Flexeril) 10 mg THREE TIMES A DAY PRN ORAL Muscle Spasm 07/14/17 23:00 08/13/17 22:59 Daptomycin 600 mg/ Sodium Chloride 110 ml @ 220 mls/hr Q24H IV 07/15/17 11:30 07/22/17 11:29 07/16/17 12:34 Escitalopram Oxalate (Lexapro) 10 mg DAILY ORAL 07/15/17 09:00 08/14/17 08:59 Fluconazole/ Sodium Chloride 200 ml @ 100 mls/hr Q24H IV 07/15/17 18:00 07/22/17 17:59 07/16/17 17:01 Heparin Sodium (Porcine) (Heparin 5000 units/ml) 5,000 units EVERY 12 HOURS SUBQ 07/15/17 21:00 08/14/17 20:59 07/16/17 20:01 Hydromorphone HCl (Dilaudid) 1 mg Q4H PRN IVP Moderate Pain (Pain Scale 4-6) 07/15/17 02:45 07/21/17 22:44 07/15/17 17:40 Hydromorphone HCl (Dilaudid) 2 mg Q3H PRN IVP Severe Pain (Pain Scale 7-10) 07/15/17 00:30 07/22/17 00:29 07/17/17 08:00 Levofloxacin 100 ml @ 100 mls/hr Q24H IVPB 07/15/17 10:30 07/22/17 10:29 07/17/17 10:17 Metronidazole (Flagyl) 500 mg Q8HR ORAL 07/15/17 06:00 07/22/17 05:59 07/17/17 04:58 Minocycline HCl (Minocin) 200 mg Q12HR ORAL 07/15/17 09:00 07/22/17 08:59 07/17/17 10:14 Ondansetron HCl (Zofran) 4 mg Q4H PRN IVP Nausea & Vomiting 07/17/17 09:30 08/16/17 09:29 Pantoprazole (Protonix) 40 mg DAILY@0600 ORAL 07/15/17 06:00 08/14/17 05:59 07/17/17 04:58 LUANN MIHCEL Jul 17, 2017 10:30
[2017-07-17] MEDS: DAPTOMYCIN IV SCH (12:50)
[2017-07-17] MEDS: NS IV SCH (12:50)
--- NOTE | 2017-07-17 15:53 | General Progress Note ---
Assessment/Plan Assessment/Plan Assessment - Anemia - prior negative EGD and Colonoscopy - malnutrition, low albumin - improving - Spine osteo - paraspinous abscess - (R) hydro - abnormal LFT - ? passed a stone - resolved - Hepatosplenomegally, ? early portal HTN - (+) GB stones/sludge - Chronic wounds - leukocytosis Recommendations - Push po / protein supplements - follow labs - wound care - ID f/u - monitor intake - Ensure TID PO Subjective Allergies: Coded Allergies: CEFTRIAXONE (Verified Allergy, Intermediate, SOB, HR-140bpm, face swollen , pt became red, 10/24/15) CODEINE (Verified Allergy, Intermediate, SWELLING, 01/03/11) LATEX (Verified Allergy, Intermediate, SWELLING, 01/03/11) PIPERACILLIN (Verified Allergy, Intermediate, Itching, 08/29/15) 08/29/15 tolerates Ceftaroline TAZOBACTAM (Verified Allergy, Intermediate, Itching, 01/29/15) POLYMYXIN B (Verified Allergy, Mild, Rash, 04/08/16) Suspected allergy reported by VANCOMYCIN (Verified Allergy, Mild, 07/15/14) ASPARAGINASE (Verified Allergy, Unknown, 01/28/14) CEFUROXIME (Unverified Allergy, Unknown, 04/19/16) IRON (Verified Allergy, Unknown, 01/28/14) LATEX, NATURAL RUBBER (Unverified Allergy, Unknown, 06/18/16) Subjective Feels OK no new complaints eating well getting shakes Objective Last 24 Hour Vital Signs Date Time Temp Pulse Resp B/P (MAP) Pulse Ox O2 Delivery O2 Flow Rate FiO2 07/17/17 12:29 98.4 86 18 109/61 97 Room Air 98.4 07/17/17 08:09 97.0 98 18 99/57 97 Room Air 97.0 07/17/17 07:55 106 20 Room Air 21 07/17/17 05:29 98.8 07/17/17 04:59 98.8 07/17/17 04:00 98.9 97 18 108/57 94 98.9 07/17/17 02:04 98.8 07/17/17 00:35 98 Room Air 07/17/17 00:32 98.8 93 17 99/60 98 98.8 07/16/17 23:01 99.0 07/16/17 20:34 97 Room Air 07/16/17 20:00 99.0 07/16/17 19:58 99.0 75 18 101/62 97 99.0 07/16/17 18:49 79 20 Room Air 21 07/16/17 16:07 98.6 95 20 108/64 94 98.6 Intake and Output 07/16/17 07/17/17 19:00 07:00 Intake Total 1130 ml 800 ml Balance 1130 ml 800 ml Intake Oral 720 ml 800 ml IV Total 410 ml # Voids 3 2 # Bowel Movements 1 Laboratory Tests 07/17/17 05:00: White Blood Count 9.4, Red Blood Count 3.16L, Hemoglobin 8.2L, Hematocrit 26.2L , Mean Corpuscular Volume 83, Mean Corpuscular Hemoglobin 26.0L, Mean Corpuscular Hemoglobin Concent 31.4L, Red Cell Distribution Width 17.3H, Platelet Count 305, Mean Platelet Volume 7.0, Neutrophils (%) (Auto) 74.3, Lymphocytes (%) (Auto) 19.9L, Monocytes (%) (Auto) 3.9, Eosinophils (%) (Auto) 1.6, Basophils (%) (Auto) 0.3, Erythrocyte Sedimentation Rate 132H, Sodium Level 138, Potassium Level 3.7, Chloride Level 104, Carbon Dioxide Level 28, Anion Gap 6, Blood Urea Nitrogen 9, Creatinine 0.7, Estimat Glomerular Filtration Rate > 60, Glucose Level 81, Calcium Level 7.9L, Total Bilirubin 0.4 , Aspartate Amino Transf (AST/SGOT) 9L, Alanine Aminotransferase (ALT/SGPT) < 6L , Alkaline Phosphatase 76, Total Protein 6.4, Albumin 1.2L, Globulin 5.2, Albumin/Globulin Ratio 0.2L Height (Feet): 5 Height (Inches): 5.00 Weight (Pounds): 200 Objective WDWN NCAT supple CTA RRR abd soft, (+) LLQ ostomy (+) paraplegia wounds noted PITER DEAN Jul 17, 2017 15:53
[2017-07-17] MEDS: Dyna-Hex 2% Top Sol 2oz TOPIC SCH (20:00)
[2017-07-18] VITALS: BP 118/58
[2017-07-18 04:00] VITALS: BP 109/60
[2017-07-18] MEDS: metroNIDAZOLE 500mg tab ORAL SCH ×3 (05:04→20:49)
[2017-07-18 08:00] VITALS: BP 117/50
--- NOTE | 2017-07-18 08:37 | General Progress Note ---
Assessment/Plan Problem List: (1) Chronic osteomyelitis of hip ICD Codes: M86.68 - Other chronic osteomyelitis, other site SNOMED: 020561688 (2) Pressure ulcer ICD Codes: L89.90 - Decubitus ulcer SNOMED: 833148727 (3) Abscess ICD Codes: L02.91 - Abscess SNOMED: 566914372 Status: stable, progressing Assessment/Plan abx wound care plastics eval pending ivf as nneded antiemetics and pain rx Subjective ROS Limited/Unobtainable: No Constitutional: Reports: malaise, weakness HEENT: Reports: no symptoms Cardiovascular: Reports: no symptoms Respiratory: Reports: no symptoms Gastrointestinal/Abdominal: Reports: nausea, vomiting Genitourinary: Reports: no symptoms 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: Reports: pre-existing deficit Endocrine: Reports: no symptoms Hematologic/Lymphatic: Reports: no symptoms Allergies: Coded Allergies: CEFTRIAXONE (Verified Allergy, Intermediate, SOB, HR-140bpm, face swollen , pt became red, 10/24/15) CODEINE (Verified Allergy, Intermediate, SWELLING, 01/03/11) LATEX (Verified Allergy, Intermediate, SWELLING, 01/03/11) PIPERACILLIN (Verified Allergy, Intermediate, Itching, 08/29/15) 08/29/15 tolerates Ceftaroline TAZOBACTAM (Verified Allergy, Intermediate, Itching, 01/29/15) POLYMYXIN B (Verified Allergy, Mild, Rash, 04/08/16) Suspected allergy reported by VANCOMYCIN (Verified Allergy, Mild, 07/15/14) ASPARAGINASE (Verified Allergy, Unknown, 01/28/14) CEFUROXIME (Unverified Allergy, Unknown, 04/19/16) IRON (Verified Allergy, Unknown, 01/28/14) LATEX, NATURAL RUBBER (Unverified Allergy, Unknown, 06/18/16) All Systems: reviewed and negative except above Subjective pain controlled. on current rx. on iv abx intermittent vomiting. Objective Last 24 Hour Vital Signs Date Time Temp Pulse Resp B/P (MAP) Pulse Ox O2 Delivery O2 Flow Rate FiO2 07/18/17 08:10 97.2 07/18/17 05:37 97.2 07/18/17 05:05 97.2 07/18/17 04:00 98.1 103 18 109/60 97 98.1 4/9/18 02:01 97.2 07/18/17 00:00 97.2 101 18 118/58 93 Room Air 97.2 07/18/17 00:00 93 Room Air 07/17/17 23:03 98.2 07/17/17 21:33 94 20 Room Air 21 07/17/17 20:04 98.2 07/17/17 20:00 93 Room Air 07/17/17 20:00 98.4 94 20 116/66 93 Room Air 98.4 07/17/17 17:00 119/65 07/17/17 16:14 98.2 103 18 90/53 95 Room Air 98.2 07/17/17 12:29 98.4 86 18 109/61 97 Room Air 98.4 Intake and Output 07/17/17 07/18/17 19:00 07:00 Intake Total 930 ml 350 ml Balance 930 ml 350 ml Intake Oral 720 ml 350 ml IV Total 210 ml # Voids 2 3 Height (Feet): 5 Height (Inches): 5.00 Weight (Pounds): 200 Objective General Appearance: WD/WN Neck: supple Cardiovascular: normal rate Respiratory/Chest: chest wall non-tender, lungs clear Abdomen: normal bowel sounds, non tender, soft, no organomegaly Edema: no edema noted Arm (L), no edema noted Arm (R), no edema noted Leg (L), no edema noted Leg (R), no edema noted Pedal (L), no edema noted Pedal (R), no edema noted Generalized BONG BRUNNER Jul 18, 2017 08:37
--- NOTE | 2017-07-18 08:48 | Pulmonology Progress Note ---
Assessment/Plan Assessment/Plan pleural effusions pulmonary infiltrates multiple abceesses paraplegia paraspinous abcess PLAN care noted IV antibiotics noted monitor imaging for change monitor cxr and tap PRN if needed monitor oxygen needs; currently stable impression, plan, and exam edited and reviewed in detail care discussed with RN Subjective Allergies: Coded Allergies: CEFTRIAXONE (Verified Allergy, Intermediate, SOB, HR-140bpm, face swollen , pt became red, 10/24/15) CODEINE (Verified Allergy, Intermediate, SWELLING, 01/03/11) LATEX (Verified Allergy, Intermediate, SWELLING, 01/03/11) PIPERACILLIN (Verified Allergy, Intermediate, Itching, 08/29/15) 08/29/15 tolerates Ceftaroline TAZOBACTAM (Verified Allergy, Intermediate, Itching, 01/29/15) POLYMYXIN B (Verified Allergy, Mild, Rash, 04/08/16) Suspected allergy reported by VANCOMYCIN (Verified Allergy, Mild, 07/15/14) ASPARAGINASE (Verified Allergy, Unknown, 01/28/14) CEFUROXIME (Unverified Allergy, Unknown, 04/19/16) IRON (Verified Allergy, Unknown, 01/28/14) LATEX, NATURAL RUBBER (Unverified Allergy, Unknown, 06/18/16) Subjective care noted and reviewed no distress Objective Last 24 Hour Vital Signs Date Time Temp Pulse Resp B/P (MAP) Pulse Ox O2 Delivery O2 Flow Rate FiO2 07/18/17 08:10 97.2 07/18/17 05:37 97.2 07/18/17 05:05 97.2 07/18/17 04:00 98.1 103 18 109/60 97 98.1 07/18/17 02:01 97.2 07/18/17 00:00 97.2 101 18 118/58 93 Room Air 97.2 07/18/17 00:00 93 Room Air 07/17/17 23:03 98.2 07/17/17 21:33 94 20 Room Air 21 07/17/17 20:04 98.2 07/17/17 20:00 93 Room Air 07/17/17 20:00 98.4 94 20 116/66 93 Room Air 98.4 07/17/17 17:00 119/65 07/17/17 16:14 98.2 103 18 90/53 95 Room Air 98.2 07/17/17 12:29 98.4 86 18 109/61 97 Room Air 98.4 Intake and Output 07/17/17 07/18/17 19:00 07:00 Intake Total 930 ml 350 ml Balance 930 ml 350 ml Intake Oral 720 ml 350 ml IV Total 210 ml # Voids 2 3 Objective WDWN NAD reduced breath sounds bilaterally without rhonchi or wheeze [id number] without MRG NABS nontender no HSM no CCE paraplegic Current Medications Medications (Trade) Dose Ordered Sig/Pineda Route PRN Reason Start Time Stop Time Status Last Admin Dose Admin Acetaminophen (Tylenol) 650 mg Q6H PRN ORAL Mild Pain/Temp > 100.5 07/14/17 23:00 08/13/17 22:59 Albuterol Sulfate (Proventil MDI) 2 puff Q4H PRN INH Shortness of Breath 07/14/17 23:00 08/13/17 22:59 Chlorhexidine Gluconate (Nereida-Hex 2%) 1 applic DAILY@2000 TOPIC 07/16/17 20:00 08/15/17 19:59 07/17/17 20:00 Cyclobenzaprine HCl (Flexeril) 10 mg THREE TIMES A DAY ORAL 07/14/17 22:45 08/13/17 22:44 Cyclobenzaprine HCl (Flexeril) 10 mg THREE TIMES A DAY PRN ORAL Muscle Spasm 07/14/17 23:00 08/13/17 22:59 Daptomycin 600 mg/ Sodium Chloride 110 ml @ 220 mls/hr Q24H IV 07/15/17 11:30 07/22/17 11:29 07/17/17 12:50 Escitalopram Oxalate (Lexapro) 10 mg DAILY ORAL 07/15/17 09:00 08/14/17 08:59 Fluconazole/ Sodium Chloride 200 ml @ 100 mls/hr Q24H IV 07/15/17 18:00 07/22/17 17:59 07/17/17 17:07 Heparin Sodium (Porcine) (Heparin 5000 units/ml) 5,000 units EVERY 12 HOURS SUBQ 07/15/17 21:00 08/14/17 20:59 07/17/17 20:03 Hydromorphone HCl (Dilaudid) 1 mg Q4H PRN IVP Moderate Pain (Pain Scale 4-6) 07/15/17 02:45 07/21/17 22:44 07/15/17 17:40 Hydromorphone HCl (Dilaudid) 2 mg Q3H PRN IVP Severe Pain (Pain Scale 7-10) 07/15/17 00:30 07/22/17 00:29 07/18/17 08:10 Levofloxacin (Levaquin) 500 mg DAILY ORAL 07/18/17 09:00 07/25/17 08:59 Metronidazole (Flagyl) 500 mg Q8HR ORAL 07/15/17 06:00 07/22/17 05:59 07/18/17 05:04 Minocycline HCl (Minocin) 200 mg Q12HR ORAL 07/15/17 09:00 07/22/17 08:59 07/17/17 20:02 Ondansetron HCl (Zofran) 4 mg Q4H PRN IVP Nausea & Vomiting 07/17/17 09:30 08/16/17 09:29 07/17/17 13:12 Pantoprazole (Protonix) 40 mg DAILY@0600 ORAL 07/15/17 06:00 08/14/17 05:59 07/18/17 05:04 LUANN MICHEL Jul 18, 2017 08:48
[2017-07-18] MEDS: Cyclobenzaprine 10mg Tab ORAL SCH ×3 (09:00→17:48)
[2017-07-18] MEDS: Heparin 5000 units/ml inj SUBQ SCH ×2 (09:00→20:48)
[2017-07-18] MEDS: Minocycline HCl 50mg cap ORAL SCH ×2 (09:22→20:47)
[2017-07-18] MEDS: Levofloxacin 500mg tab ORAL SCH (09:22)
[2017-07-18 12:00] VITALS: BP 128/75
--- NOTE | 2017-07-18 12:45 | General Progress Note ---
Assessment/Plan Assessment/Plan Assessment - Anemia - prior negative EGD and Colonoscopy - malnutrition, low albumin - Spine osteo - paraspinous abscess - (R) hydro - abnormal LFT - ? passed a stone - resolved - Hepatosplenomegally, ? early portal HTN - (+) GB stones/sludge - Chronic wounds - leukocytosis Recommendations - Push po / protein supplements - follow labs - wound care - ID f/u - monitor intake - Ensure TID PO Subjective Allergies: Coded Allergies: CEFTRIAXONE (Verified Allergy, Intermediate, SOB, HR-140bpm, face swollen , pt became red, 10/24/15) CODEINE (Verified Allergy, Intermediate, SWELLING, 01/03/11) LATEX (Verified Allergy, Intermediate, SWELLING, 01/03/11) PIPERACILLIN (Verified Allergy, Intermediate, Itching, 08/29/15) 08/29/15 tolerates Ceftaroline TAZOBACTAM (Verified Allergy, Intermediate, Itching, 01/29/15) POLYMYXIN B (Verified Allergy, Mild, Rash, 04/08/16) Suspected allergy reported by VANCOMYCIN (Verified Allergy, Mild, 07/15/14) ASPARAGINASE (Verified Allergy, Unknown, 01/28/14) CEFUROXIME (Unverified Allergy, Unknown, 04/19/16) IRON (Verified Allergy, Unknown, 01/28/14) LATEX, NATURAL RUBBER (Unverified Allergy, Unknown, 06/18/16) Subjective Feels OK no new complaints eating well getting shakes advised to order outside food PRN albumin down to 1.2 again Objective Last 24 Hour Vital Signs Date Time Temp Pulse Resp B/P (MAP) Pulse Ox O2 Delivery O2 Flow Rate FiO2 07/18/17 12:00 98.2 97 18 128/75 93 98.2 07/18/17 11:40 97.2 07/18/17 11:10 97.2 07/18/17 10:41 104 20 Room Air 21 07/18/17 09:00 97.2 07/18/17 08:10 97.2 07/18/17 08:00 98.2 107 19 117/50 95 98.2 07/18/17 05:05 97.2 07/18/17 04:00 98.1 103 18 109/60 97 98.1 07/18/17 02:01 97.2 4/9/18 00:00 97.2 101 18 118/58 93 Room Air 97.2 07/18/17 00:00 93 Room Air 07/17/17 23:03 98.2 07/17/17 21:33 94 20 Room Air 21 07/17/17 20:04 98.2 07/17/17 20:00 93 Room Air 07/17/17 20:00 98.4 94 20 116/66 93 Room Air 98.4 07/17/17 17:00 119/65 07/17/17 16:14 98.2 103 18 90/53 95 Room Air 98.2 Intake and Output 07/17/17 07/18/17 19:00 07:00 Intake Total 930 ml 350 ml Balance 930 ml 350 ml Intake Oral 720 ml 350 ml IV Total 210 ml # Voids 2 3 Height (Feet): 5 Height (Inches): 5.00 Weight (Pounds): 200 Objective WDWN NCAT supple CTA RRR abd soft, (+) LLQ ostomy (+) paraplegia wounds noted PITER DEAN Jul 18, 2017 12:45
--- NOTE | 2017-07-18 13:29 | Consultation ---
History of Present Illness General Date patient seen: Jul 18, 2017 Time patient seen: 08:30 Referring physician: Dr. Chanel Reason for Consultation: Multiple wounds Present Illness HPI Asked to re-evaluate this patient who is known to me from the outpatient wound center at [facility] [place], [place]. She was transferred to [facility] for evaluation of the paraspinal abscesses she was found to have on scans at [facility] [place] [place]. She is now transferred back to [facility] [place] [place]. It does not appear that she had drainage of the paraspinal abscess but the records from [facility] are not available to me at this time. She has b/l posterior thigh ulcers as well as left ischial and sacral ulcer. she has been receiving packing to these ulcers while she's been admitted. She has no new complaints. Her strength and energy is improving. Allergies: Coded Allergies: CEFTRIAXONE (Verified Allergy, Intermediate, SOB, HR-140bpm, face swollen , pt became red, 10/24/15) CODEINE (Verified Allergy, Intermediate, SWELLING, 01/03/11) LATEX (Verified Allergy, Intermediate, SWELLING, 01/03/11) PIPERACILLIN (Verified Allergy, Intermediate, Itching, 08/29/15) 08/29/15 tolerates Ceftaroline TAZOBACTAM (Verified Allergy, Intermediate, Itching, 01/29/15) POLYMYXIN B (Verified Allergy, Mild, Rash, 04/08/16) Suspected allergy reported by VANCOMYCIN (Verified Allergy, Mild, 07/15/14) ASPARAGINASE (Verified Allergy, Unknown, 01/28/14) CEFUROXIME (Unverified Allergy, Unknown, 04/19/16) IRON (Verified Allergy, Unknown, 01/28/14) LATEX, NATURAL RUBBER (Unverified Allergy, Unknown, 06/18/16) Medication History Scheduled Amikacin Sulfate (Amikin), 850 MG IVPB DAILY, (Reported) DAPTOmycin (DAPTOmycin), 500 MG IV DAILY, (Reported) DAPTOmycin (DAPTOmycin), 600 MG IV q24, (Reported) Escitalopram Oxalate* (Lexapro*), 10 MG ORAL DAILY, (Reported) Fluconazole (Fluconazole), 400 MG IV DAILY, (Reported) Fluconazole (Fluconazole), 200 MG IV DAILY, (Reported) Heparin Sodium,Porcine/Ns/Pf (Heparin), 5,000 UNIT SQ EVERY 12 HOURS, (Reported) Levofloxacin* (Levaquin*), 750 MG ORAL DAILY, (Reported) Levofloxacin* (Levaquin*), 500 MG IV DAILY, (Reported) Meropenem (Meropenem), 1 GM IV EVERY 8 HOURS, (Reported) Meropenem (Merrem), 1 GM IVPB Q8HR, (Reported) Metronidazole* (Flagyl*), 500 MG ORAL EVERY 8 HOURS, (Reported) Minocycline Hcl (Minocin), 200 MG PO Q12HR, (Reported) No Known Medications* (NKM - No Known Medications*), 0 ., (Reported) Pantoprazole* (Protonix*), 40 MG ORAL DAILY, (Reported) Pantoprazole* (Protonix*), 40 MG ORAL DAILY, (Reported) Scheduled PRN Acetaminophen (Acetaminophen), 650 MG ORAL Q4HR PRN for Fever/Headache/Mild Pain , (Reported) Al Hydroxide/mg Hydroxide (Mag-Al Plus Suspension), 30 ML ORAL Q4HR PRN for dyspepsia, (Reported) Albuterol Sulfate* (Albuterol Sulfate Mdi*), 2 PUFF INH Q4H PRN for Constipation , (Reported) Cyclobenzaprine Hcl* (Flexeril*), 10 MG ORAL THREE TIMES A DAY PRN for Muscle Spasm, (Reported) Diphenhydramine Hcl* (Diphenhydramine Hcl*), 25 MG IVP Q3HR PRN for Itching, ( Reported) Hydromorphone HCl (Dilaudid), 2 MG IVP Q3HR PRN for Severe Pain (Pain Scale 7-10 ), (Reported) Hydromorphone HCl/Pf (Dilaudid 2 Mg/Ml Syringe), 2 MG IV Q3HR PRN for Severe Pain (Pain Scale 7-10), (Reported) Magnesium Hydroxide* (Milk Of Magnesia*), 30 ML ORAL HS PRN for Constipation, ( Reported) Ondansetron* (Zofran*), 4 MG IV Q6HR PRN for Nausea & Vomiting, (Reported) Ondansetron* (Zofran*), 4 MG IV Q6H PRN for Nausea & Vomiting, (Reported) Zolpidem Tartrate* (Ambien*), 5 MG ORAL BEDTIME PRN for insomnia, (Reported) Miscellaneous Medications Unable to Obtain Medications (Unable To Obtain Meds), (Reported) Patient History Healthcare decision maker Resuscitation status Full Code Advanced Directive on File No Review of Systems Respiratory: Reports: no symptoms Cardiovascular: Reports: no symptoms Skin: Reports: see HPI Psychiatric: Reports: no symptoms Physical Exam General Appearance: WD/WN, alert Lines, tubes and drains: PICC Abdomen: soft Skin Exam: other - Stage 4 Posterior thigh ulcers with healthy and clean granular base. Appear improved since last examined. Stage 3 Left ischial ulcer is smaller with clean granular base. Stage 4 Sacral ulcer is large and grossly unchanged in size but base with no slough. Last 24 Hour Vital Signs Date Time Temp Pulse Resp B/P (MAP) Pulse Ox O2 Delivery O2 Flow Rate FiO2 07/18/17 12:00 98.2 97 18 128/75 93 98.2 07/18/17 11:40 97.2 07/18/17 11:10 97.2 07/18/17 10:41 104 20 Room Air 21 07/18/17 09:00 97.2 07/18/17 08:10 97.2 07/18/17 08:00 98.2 107 19 117/50 95 98.2 07/18/17 05:05 97.2 07/18/17 04:00 98.1 103 18 109/60 97 98.1 07/18/17 02:01 97.2 07/18/17 00:00 97.2 101 18 118/58 93 Room Air 97.2 07/18/17 00:00 93 Room Air 07/17/17 23:03 98.2 07/17/17 21:33 94 20 Room Air 21 07/17/17 20:04 98.2 07/17/17 20:00 93 Room Air 07/17/17 20:00 98.4 94 20 116/66 93 Room Air 98.4 07/17/17 17:00 119/65 07/17/17 16:14 98.2 103 18 90/53 95 Room Air 98.2 Intake and Output 07/17/17 07/18/17 19:00 07:00 Intake Total 930 ml 350 ml Balance 930 ml 350 ml Intake Oral 720 ml 350 ml IV Total 210 ml # Voids 2 3 Height (Feet): 5 Height (Inches): 5.00 Weight (Pounds): 200 Medications Current Medications Medications (Trade) Dose Ordered Sig/Pineda Route PRN Reason Start Time Stop Time Status Last Admin Dose Admin Acetaminophen (Tylenol) 650 mg Q6H PRN ORAL Mild Pain/Temp > 100.5 07/14/17 23:00 08/13/17 22:59 Albuterol Sulfate (Proventil MDI) 2 puff Q4H PRN INH Shortness of Breath 07/14/17 23:00 08/13/17 22:59 Chlorhexidine Gluconate (Nereida-Hex 2%) 1 applic DAILY@2000 TOPIC 07/16/17 20:00 08/15/17 19:59 07/17/17 20:00 Cyclobenzaprine HCl (Flexeril) 10 mg THREE TIMES A DAY ORAL 07/14/17 22:45 08/13/17 22:44 Cyclobenzaprine HCl (Flexeril) 10 mg THREE TIMES A DAY PRN ORAL Muscle Spasm 07/14/17 23:00 08/13/17 22:59 Daptomycin 600 mg/ Sodium Chloride 110 ml @ 220 mls/hr Q24H IV 07/15/17 11:30 07/22/17 11:29 07/17/17 12:50 Escitalopram Oxalate (Lexapro) 10 mg DAILY ORAL 07/15/17 09:00 08/14/17 08:59 Fluconazole/ Sodium Chloride 200 ml @ 100 mls/hr Q24H IV 07/15/17 18:00 07/22/17 17:59 07/17/17 17:07 Heparin Sodium (Porcine) (Heparin 5000 units/ml) 5,000 units EVERY 12 HOURS SUBQ 07/15/17 21:00 08/14/17 20:59 07/17/17 20:03 Hydromorphone HCl (Dilaudid) 1 mg Q4H PRN IVP Moderate Pain (Pain Scale 4-6) 07/15/17 02:45 07/21/17 22:44 07/15/17 17:40 Hydromorphone HCl (Dilaudid) 2 mg Q3H PRN IVP Severe Pain (Pain Scale 7-10) 07/15/17 00:30 07/22/17 00:29 07/18/17 11:10 Levofloxacin (Levaquin) 500 mg DAILY ORAL 07/18/17 09:00 07/25/17 08:59 07/18/17 09:22 Metronidazole (Flagyl) 500 mg Q8HR ORAL 07/15/17 06:00 07/22/17 05:59 07/18/17 05:04 Minocycline HCl (Minocin) 200 mg Q12HR ORAL 07/15/17 09:00 07/22/17 08:59 07/18/17 09:22 Ondansetron HCl (Zofran) 4 mg Q4H PRN IVP Nausea & Vomiting 07/17/17 09:30 08/16/17 09:29 07/18/17 09:22 Pantoprazole (Protonix) 40 mg DAILY@0600 ORAL 07/15/17 06:00 08/14/17 05:59 07/18/17 05:04 Assessment/Plan Status: progressing Assessment/Plan Both the patient and her wounds are improved since last evaluated as an inpatient. She has low nutrition levels and has been supplementing her diet with Ensure but will need to increase her PO intake. Her wounds are clean and no surgical intervention is needed at this time. Her wound care can be effectively performed as an outpatient in the wound center at [facility] [place] [place]. Defer to ID and pulmonary regarding other needs for inpatient stay. Thank you. LEEANNA CORONA Jul 18, 2017 13:29
[2017-07-18] MEDS: DAPTOMYCIN IV SCH (14:08)
[2017-07-18] MEDS: NS IV SCH (14:08)
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
[2017-07-18 15:51] VITALS: BP 106/56
[2017-07-18] MEDS ORDERED: Cathflo Alteplase 2mg Inj INJ ONE (17:30)
[2017-07-18 20:00] VITALS: BP 115/59
[2017-07-18] MEDS: Dyna-Hex 2% Top Sol 2oz TOPIC SCH (20:47)
[2017-07-19] VITALS (7 sets, daily range): BP systolic 101–119; BP diastolic 51–65
[2017-07-19] MEDS: metroNIDAZOLE 500mg tab ORAL SCH ×3 (04:53→21:15)
[2017-07-19 07:02] LABS: BASOPHILS % (AUTO) 0.7 % (0.0-2.0); EOSINOPHILS % (AUTO) 2.2 % (0.0-3.0); HEMATOCRIT 25.2 % (37.0-47.0); HEMOGLOBIN 8.1 G/DL (12.0-16.0); MEAN CORPUSCULAR VOLUME 83 FL (80-99); MONOCYTES % (AUTO) 6.1 % (1.0-10.0); PLATELET COUNT 352 K/UL (150-450); RED BLOOD COUNT 3.03 M/UL (4.20-5.40); RED CELL DISTRIBUTION WIDTH 17.1 % (11.6-14.8); WHITE BLOOD COUNT 7.2 K/UL (4.8-10.8)
[2017-07-19 07:07] LABS: ANION GAP 4 mmol/L (5-15); BLOOD UREA NITROGEN 9 mg/dL (7-18); CALCIUM 7.8 MG/DL (8.5-10.1); CARBON DIOXIDE 31 MMOL/L (21-32); CHLORIDE 103 MMOL/L (98-107); CREATININE 0.7 MG/DL (0.55-1.30); POTASSIUM 3.8 MMOL/L (3.5-5.1); SODIUM 137 MMOL/L (136-145)
[2017-07-19] MEDS: Levofloxacin 500mg tab ORAL SCH (08:30)
[2017-07-19] MEDS: Minocycline HCl 50mg cap ORAL SCH ×2 (08:31→21:15)
[2017-07-19] MEDS: Cyclobenzaprine 10mg Tab ORAL SCH ×3 (08:31→17:42)
[2017-07-19] MEDS: Heparin 5000 units/ml inj SUBQ SCH ×2 (08:31→21:23)
--- NOTE | 2017-07-19 09:45 | Pulmonology Progress Note ---
Assessment/Plan Assessment/Plan pleural effusions pulmonary infiltrates multiple abceesses paraplegia paraspinous abcess PLAN care noted IV antibiotics noted monitor imaging for change monitor cxr and tap PRN- ordered ID noted wound care ongoing monitor oxygen needs; currently stable impression, plan, and exam edited and reviewed in detail care discussed with RN Subjective Allergies: Coded Allergies: CEFTRIAXONE (Verified Allergy, Intermediate, SOB, HR-140bpm, face swollen , pt became red, 10/24/15) CODEINE (Verified Allergy, Intermediate, SWELLING, 01/03/11) LATEX (Verified Allergy, Intermediate, SWELLING, 01/03/11) PIPERACILLIN (Verified Allergy, Intermediate, Itching, 08/29/15) 08/29/15 tolerates Ceftaroline TAZOBACTAM (Verified Allergy, Intermediate, Itching, 01/29/15) POLYMYXIN B (Verified Allergy, Mild, Rash, 04/08/16) Suspected allergy reported by VANCOMYCIN (Verified Allergy, Mild, 07/15/14) ASPARAGINASE (Verified Allergy, Unknown, 01/28/14) CEFUROXIME (Unverified Allergy, Unknown, 04/19/16) IRON (Verified Allergy, Unknown, 01/28/14) LATEX, NATURAL RUBBER (Unverified Allergy, Unknown, 06/18/16) Subjective care noted and reviewed no distress d/w plastics Objective Last 24 Hour Vital Signs Date Time Temp Pulse Resp B/P (MAP) Pulse Ox O2 Delivery O2 Flow Rate FiO2 07/19/17 09:00 99.0 07/19/17 08:30 99.0 07/19/17 08:00 98.1 107 19 102/51 98 98.1 07/19/17 04:54 99.0 07/19/17 04:00 98.4 101 20 101/57 90 Room Air 98.4 07/19/17 00:00 99.0 102 20 104/59 95 Room Air 99.0 07/18/17 20:59 98.2 07/18/17 20:00 98.8 101 18 115/59 Room Air 98.8 07/18/17 19:30 88 20 Room Air 21 07/18/17 18:06 98.2 07/18/17 15:51 98.2 89 18 106/56 93 98.2 07/18/17 14:11 98.2 07/18/17 12:00 98.2 97 18 128/75 93 98.2 07/18/17 11:10 97.2 07/18/17 10:41 104 20 Room Air 21 Intake and Output 07/18/17 07/19/17 19:00 07:00 Intake Total 360 ml 300 ml Balance 360 ml 300 ml Intake Oral 360 ml 300 ml Objective WDWN NAD reduced breath sounds bilaterally without rhonchi or wheeze [id number] without MRG NABS nontender no HSM no CCE paraplegic Laboratory Tests 07/19/17 06:30: White Blood Count 7.2, Red Blood Count 3.03L, Hemoglobin 8.1L, Hematocrit 25.2L , Mean Corpuscular Volume 83, Mean Corpuscular Hemoglobin 26.8L, Mean Corpuscular Hemoglobin Concent 32.3, Red Cell Distribution Width 17.1H, Platelet Count 352, Mean Platelet Volume 7.2, Neutrophils (%) (Auto) 71.0, Lymphocytes (%) (Auto) 20.0, Monocytes (%) (Auto) 6.1, Eosinophils (%) (Auto) 2.2, Basophils (%) (Auto) 0.7, Sodium Level 137, Potassium Level 3.8, Chloride Level 103, Carbon Dioxide Level 31, Anion Gap 4L, Blood Urea Nitrogen 9, Creatinine 0.7, Estimat Glomerular Filtration Rate > 60, Glucose Level 84, Calcium Level 7.8L Current Medications Medications (Trade) Dose Ordered Sig/Pineda Route PRN Reason Start Time Stop Time Status Last Admin Dose Admin Acetaminophen (Tylenol) 650 mg Q6H PRN ORAL Mild Pain/Temp > 100.5 07/14/17 23:00 08/13/17 22:59 Albuterol Sulfate (Proventil MDI) 2 puff Q4H PRN INH Shortness of Breath 07/14/17 23:00 08/13/17 22:59 Chlorhexidine Gluconate (Nereida-Hex 2%) 1 applic DAILY@1999 TOPIC 07/16/17 20:00 08/15/17 19:59 07/18/17 20:47 Cyclobenzaprine HCl (Flexeril) 10 mg THREE TIMES A DAY ORAL 07/14/17 22:45 08/13/17 22:44 Cyclobenzaprine HCl (Flexeril) 10 mg THREE TIMES A DAY PRN ORAL Muscle Spasm 07/14/17 23:00 08/13/17 22:59 Daptomycin 600 mg/ Sodium Chloride 110 ml @ 220 mls/hr Q24H IV 07/15/17 11:30 07/22/17 11:29 07/18/17 14:08 Escitalopram Oxalate (Lexapro) 10 mg DAILY ORAL 07/15/17 09:00 08/14/17 08:59 Fluconazole/ Sodium Chloride 200 ml @ 100 mls/hr Q24H IV 07/15/17 18:00 07/22/17 17:59 07/18/17 18:46 Heparin Sodium (Porcine) (Heparin 5000 units/ml) 5,000 units EVERY 12 HOURS SUBQ 07/15/17 21:00 08/14/17 20:59 07/18/17 20:48 Hydromorphone HCl (Dilaudid) 1 mg Q4H PRN IVP Moderate Pain (Pain Scale 4-6) 07/15/17 02:45 07/21/17 22:44 07/15/17 17:40 Hydromorphone HCl (Dilaudid) 2 mg Q3H PRN IVP Severe Pain (Pain Scale 7-10) 07/15/17 00:30 07/22/17 00:29 07/19/17 08:30 Levofloxacin (Levaquin) 500 mg DAILY ORAL 07/18/17 09:00 07/25/17 08:59 07/19/17 08:30 Metronidazole (Flagyl) 500 mg Q8HR ORAL 07/15/17 06:00 07/22/17 05:59 07/19/17 04:53 Minocycline HCl (Minocin) 200 mg Q12HR ORAL 07/15/17 09:00 07/22/17 08:59 07/19/17 08:31 Ondansetron HCl (Zofran) 4 mg Q4H PRN IVP Nausea & Vomiting 07/17/17 09:30 08/16/17 09:29 07/18/17 09:22 Pantoprazole (Protonix) 40 mg DAILY@0600 ORAL 07/15/17 06:00 08/14/17 05:59 07/19/17 04:53 LUANN MICHEL Jul 19, 2017 09:45
[2017-07-19] MEDS: NS IV SCH (11:31)
[2017-07-19] MEDS: DAPTOMYCIN IV SCH (11:31)
--- NOTE | 2017-07-19 14:17 | General Progress Note ---
Assessment/Plan Problem List: (1) Chronic osteomyelitis of hip ICD Codes: M86.68 - Other chronic osteomyelitis, other site SNOMED: 108705776 (2) Pressure ulcer ICD Codes: L89.90 - Decubitus ulcer SNOMED: 541805448 (3) Abscess ICD Codes: L02.91 - Abscess SNOMED: 393741263 Status: stable Assessment/Plan abx wound care plastics eval noted- no surgical intervention recommended- wounds are clear per plastics and can be treated at the wound care center ivf as nneded antiemetics and pain rx ?dc planning Subjective ROS Limited/Unobtainable: No Constitutional: Reports: malaise, weakness HEENT: Reports: no symptoms Cardiovascular: Reports: no symptoms Respiratory: Reports: no symptoms Gastrointestinal/Abdominal: Reports: nausea, vomiting Genitourinary: Reports: no symptoms 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: Reports: no symptoms Endocrine: Reports: no symptoms Hematologic/Lymphatic: Reports: no symptoms Allergies: Coded Allergies: CEFTRIAXONE (Verified Allergy, Intermediate, SOB, HR-140bpm, face swollen , pt became red, 10/24/15) CODEINE (Verified Allergy, Intermediate, SWELLING, 01/03/11) LATEX (Verified Allergy, Intermediate, SWELLING, 01/03/11) PIPERACILLIN (Verified Allergy, Intermediate, Itching, 08/29/15) 08/29/15 tolerates Ceftaroline TAZOBACTAM (Verified Allergy, Intermediate, Itching, 01/29/15) POLYMYXIN B (Verified Allergy, Mild, Rash, 04/08/16) Suspected allergy reported by VANCOMYCIN (Verified Allergy, Mild, 07/15/14) ASPARAGINASE (Verified Allergy, Unknown, 01/28/14) CEFUROXIME (Unverified Allergy, Unknown, 04/19/16) IRON (Verified Allergy, Unknown, 01/28/14) LATEX, NATURAL RUBBER (Unverified Allergy, Unknown, 06/18/16) All Systems: reviewed and negative except above Subjective pain controlled on current rx. on iv abx. failed prior attempts to drain paraspinous abscess in the past. could not tolerate position. currently nontoxic Objective Last 24 Hour Vital Signs Date Time Temp Pulse Resp B/P (MAP) Pulse Ox O2 Delivery O2 Flow Rate FiO2 07/19/17 12:00 99.1 07/19/17 11:44 99.1 98 19 119/65 95 99.1 07/19/17 11:30 99.0 07/19/17 08:30 99.0 07/19/17 08:00 98.1 107 19 102/51 98 98.1 07/19/17 07:19 81 20 Room Air 21 07/19/17 04:54 99.0 07/19/17 04:00 98.4 101 20 101/57 90 Room Air 98.4 07/19/17 00:00 99.0 102 20 104/59 95 Room Air 99.0 07/18/17 20:59 98.2 07/18/17 20:00 98.8 101 18 115/59 Room Air 98.8 07/18/17 19:30 88 20 Room Air 21 07/18/17 18:06 98.2 07/18/17 15:51 98.2 89 18 106/56 93 98.2 07/18/17 14:11 98.2 Intake and Output 07/18/17 07/19/17 19:00 07:00 Intake Total 360 ml 300 ml Balance 360 ml 300 ml Intake Oral 360 ml 300 ml Laboratory Tests 07/19/17 06:30: White Blood Count 7.2, Red Blood Count 3.03L, Hemoglobin 8.1L, Hematocrit 25.2L , Mean Corpuscular Volume 83, Mean Corpuscular Hemoglobin 26.8L, Mean Corpuscular Hemoglobin Concent 32.3, Red Cell Distribution Width 17.1H, Platelet Count 352, Mean Platelet Volume 7.2, Neutrophils (%) (Auto) 71.0, Lymphocytes (%) (Auto) 20.0, Monocytes (%) (Auto) 6.1, Eosinophils (%) (Auto) 2.2, Basophils (%) (Auto) 0.7, Sodium Level 137, Potassium Level 3.8, Chloride Level 103, Carbon Dioxide Level 31, Anion Gap 4L, Blood Urea Nitrogen 9, Creatinine 0.7, Estimat Glomerular Filtration Rate > 60, Glucose Level 84, Calcium Level 7.8L Height (Feet): 5 Height (Inches): 5.00 Weight (Pounds): 200 Objective General Appearance: WD/WN Neck: supple Cardiovascular: normal rate Respiratory/Chest: chest wall non-tender, lungs clear Abdomen: normal bowel sounds, non tender, soft, no organomegaly Edema: no edema noted Arm (L), no edema noted Arm (R), no edema noted Leg (L), no edema noted Leg (R), no edema noted Pedal (L), no edema noted Pedal (R), no edema noted Generalized BONG BRUNNER Jul 19, 2017 14:17
--- NOTE | 2017-07-19 21:04 | General Progress Note ---
Assessment/Plan Assessment/Plan Assessment - Anemia - prior negative EGD and Colonoscopy - malnutrition, low albumin - Spine osteo - paraspinous abscess - (R) hydro - abnormal LFT - ? passed a stone - resolved - Hepatosplenomegally, ? early portal HTN - (+) GB stones/sludge - Chronic wounds - leukocytosis Recommendations - Push po / protein supplements - follow labs - wound care - ID f/u - monitor intake - Ensure TID PO Subjective Allergies: Coded Allergies: CEFTRIAXONE (Verified Allergy, Intermediate, SOB, HR-140bpm, face swollen , pt became red, 10/24/15) CODEINE (Verified Allergy, Intermediate, SWELLING, 01/03/11) LATEX (Verified Allergy, Intermediate, SWELLING, 01/03/11) PIPERACILLIN (Verified Allergy, Intermediate, Itching, 08/29/15) 08/29/15 tolerates Ceftaroline TAZOBACTAM (Verified Allergy, Intermediate, Itching, 01/29/15) POLYMYXIN B (Verified Allergy, Mild, Rash, 04/08/16) Suspected allergy reported by VANCOMYCIN (Verified Allergy, Mild, 07/15/14) ASPARAGINASE (Verified Allergy, Unknown, 01/28/14) CEFUROXIME (Unverified Allergy, Unknown, 04/19/16) IRON (Verified Allergy, Unknown, 01/28/14) LATEX, NATURAL RUBBER (Unverified Allergy, Unknown, 06/18/16) Subjective Feels OK no new complaints eating well getting shakes Objective Last 24 Hour Vital Signs Date Time Temp Pulse Resp B/P (MAP) Pulse Ox O2 Delivery O2 Flow Rate FiO2 07/19/17 20:00 98.6 98 18 117/63 92 98.6 07/19/17 18:29 98.2 07/19/17 17:59 98.2 07/19/17 15:46 98.2 106 19 110/59 95 98.2 07/19/17 14:58 99.1 07/19/17 11:44 99.1 98 19 119/65 95 99.1 07/19/17 11:30 99.0 07/19/17 08:30 99.0 07/19/17 08:00 98.1 107 19 102/51 98 98.1 07/19/17 07:19 81 20 Room Air 21 07/19/17 04:54 99.0 07/19/17 04:00 98.4 101 20 101/57 90 Room Air 98.4 07/19/17 00:00 99.0 102 20 104/59 95 Room Air 99.0 Intake and Output 07/18/17 07/19/17 19:00 07:00 Intake Total 360 ml 300 ml Balance 360 ml 300 ml Intake Oral 360 ml 300 ml Laboratory Tests 07/19/17 06:30: White Blood Count 7.2, Red Blood Count 3.03L, Hemoglobin 8.1L, Hematocrit 25.2L , Mean Corpuscular Volume 83, Mean Corpuscular Hemoglobin 26.8L, Mean Corpuscular Hemoglobin Concent 32.3, Red Cell Distribution Width 17.1H, Platelet Count 352, Mean Platelet Volume 7.2, Neutrophils (%) (Auto) 71.0, Lymphocytes (%) (Auto) 20.0, Monocytes (%) (Auto) 6.1, Eosinophils (%) (Auto) 2.2, Basophils (%) (Auto) 0.7, Sodium Level 137, Potassium Level 3.8, Chloride Level 103, Carbon Dioxide Level 31, Anion Gap 4L, Blood Urea Nitrogen 9, Creatinine 0.7, Estimat Glomerular Filtration Rate > 60, Glucose Level 84, Calcium Level 7.8L Height (Feet): 5 Height (Inches): 5.00 Weight (Pounds): 200 Objective WDWN NCAT supple CTA RRR abd soft, (+) LLQ ostomy (+) paraplegia wounds noted PITER DEAN Jul 19, 2017 21:04
[2017-07-19] MEDS: Dyna-Hex 2% Top Sol 2oz TOPIC SCH (21:15)
[2017-07-20] MEDS: Albuterol 90mcg Inhaler 8gm INH PRN ×3 (00:38→18:04)
[2017-07-20 04:00] VITALS: BP 113/63
[2017-07-20] MEDS: metroNIDAZOLE 500mg tab ORAL SCH ×3 (07:06→21:16)
[2017-07-20 08:00] VITALS: BP 102/62
[2017-07-20] MEDS: Minocycline HCl 50mg cap ORAL SCH ×2 (08:13→21:16)
[2017-07-20] MEDS: Cyclobenzaprine 10mg Tab ORAL SCH ×4 (08:14→17:38)
[2017-07-20] MEDS: Levofloxacin 500mg tab ORAL SCH (08:14)
[2017-07-20] MEDS: Heparin 5000 units/ml inj SUBQ SCH ×2 (08:18→21:20)
--- NOTE | 2017-07-20 08:37 | General Progress Note ---
Assessment/Plan Problem List: (1) Chronic osteomyelitis of hip ICD Codes: M86.68 - Other chronic osteomyelitis, other site SNOMED: 651038480 (2) Pressure ulcer ICD Codes: L89.90 - Decubitus ulcer SNOMED: 498136224 (3) Abscess ICD Codes: L02.91 - Abscess SNOMED: 079610838 Status: stable, progressing Assessment/Plan abx wound care plastics eval noted- no surgical intervention recommended- wounds are clear per plastics and can be treated at the wound care center ivf as nneded antiemetics and pain rx d.w radioliogy- only one of pts abscess was drained. could re-attempt drainage again. pt could not tolerate positioning. pt is reconsidering 2nd attempt ?dc planning Subjective ROS Limited/Unobtainable: No Constitutional: Reports: malaise, weakness HEENT: Reports: no symptoms Cardiovascular: Reports: no symptoms Respiratory: Reports: no symptoms Gastrointestinal/Abdominal: Reports: nausea Genitourinary: Reports: no symptoms 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: Reports: pre-existing deficit Endocrine: Reports: no symptoms Hematologic/Lymphatic: Reports: no symptoms Allergies: Coded Allergies: CEFTRIAXONE (Verified Allergy, Intermediate, SOB, HR-140bpm, face swollen , pt became red, 10/24/15) CODEINE (Verified Allergy, Intermediate, SWELLING, 01/03/11) LATEX (Verified Allergy, Intermediate, SWELLING, 01/03/11) PIPERACILLIN (Verified Allergy, Intermediate, Itching, 08/29/15) 08/29/15 tolerates Ceftaroline TAZOBACTAM (Verified Allergy, Intermediate, Itching, 01/29/15) POLYMYXIN B (Verified Allergy, Mild, Rash, 04/08/16) Suspected allergy reported by VANCOMYCIN (Verified Allergy, Mild, 07/15/14) ASPARAGINASE (Verified Allergy, Unknown, 01/28/14) CEFUROXIME (Unverified Allergy, Unknown, 04/19/16) IRON (Verified Allergy, Unknown, 01/28/14) LATEX, NATURAL RUBBER (Unverified Allergy, Unknown, 06/18/16) All Systems: reviewed and negative except above Subjective pain controlled on current rx. on iv abx. failed prior attempts to drain paraspinous abscess in the past. could not tolerate position. currently nontoxic. overall feels better. Objective Last 24 Hour Vital Signs Date Time Temp Pulse Resp B/P (MAP) Pulse Ox O2 Delivery O2 Flow Rate FiO2 07/20/17 08:19 98.8 07/20/17 08:00 98.1 93 18 102/62 94 98.1 07/20/17 04:00 98.8 100 18 113/63 93 98.8 07/20/17 00:39 94 20 93 Room Air 21 07/20/17 00:39 96 20 96 Room Air 21 07/19/17 23:58 99.7 91 18 115/62 94 99.7 07/19/17 21:45 98.6 07/19/17 20:00 98.6 98 18 117/63 92 98.6 07/19/17 19:30 94 20 Room Air 21 07/19/17 17:59 98.2 07/19/17 15:46 98.2 106 19 110/59 95 98.2 07/19/17 14:58 99.1 07/19/17 11:44 99.1 98 19 119/65 95 99.1 07/19/17 11:30 99.0 Intake and Output 07/19/17 07/20/17 19:00 07:00 Intake Total 590 ml 360 ml Balance 590 ml 360 ml Intake Oral 480 ml 360 ml IV Total 110 ml # Voids 2 3 Height (Feet): 5 Height (Inches): 5.00 Weight (Pounds): 200 Objective General Appearance: WD/WN Neck: supple Cardiovascular: normal rate Respiratory/Chest: chest wall non-tender, lungs clear Abdomen: normal bowel sounds, non tender, soft, no organomegaly Edema: no edema noted Arm (L), no edema noted Arm (R), no edema noted Leg (L), no edema noted Leg (R), no edema noted Pedal (L), no edema noted Pedal (R), no edema noted Generalized BONG BRUNNER Jul 20, 2017 08:37
--- NOTE | 2017-07-20 10:01 | Pulmonology Progress Note ---
Assessment/Plan Assessment/Plan pleural effusions pulmonary infiltrates multiple abceesses paraplegia paraspinous abcess PLAN care noted IV antibiotics noted monitor imaging for change monitor cxr and will review today ID noted and reviewed wound care ongoing ? plan for home care ? need to repeat imaging monitor oxygen needs; currently stable impression, plan, and exam edited and reviewed in detail care discussed with RN Subjective Allergies: Coded Allergies: CEFTRIAXONE (Verified Allergy, Intermediate, SOB, HR-140bpm, face swollen , pt became red, 10/24/15) CODEINE (Verified Allergy, Intermediate, SWELLING, 01/03/11) LATEX (Verified Allergy, Intermediate, SWELLING, 01/03/11) PIPERACILLIN (Verified Allergy, Intermediate, Itching, 08/29/15) 08/29/15 tolerates Ceftaroline TAZOBACTAM (Verified Allergy, Intermediate, Itching, 01/29/15) POLYMYXIN B (Verified Allergy, Mild, Rash, 04/08/16) Suspected allergy reported by MD VANCOMYCIN (Verified Allergy, Mild, 07/15/14) ASPARAGINASE (Verified Allergy, Unknown, 01/28/14) CEFUROXIME (Unverified Allergy, Unknown, 04/19/16) IRON (Verified Allergy, Unknown, 01/28/14) LATEX, NATURAL RUBBER (Unverified Allergy, Unknown, 06/18/16) Subjective care noted and reviewed no distress d/w plastics Objective Last 24 Hour Vital Signs Date Time Temp Pulse Resp B/P (MAP) Pulse Ox O2 Delivery O2 Flow Rate FiO2 07/20/17 08:19 98.8 07/20/17 08:00 98.1 93 18 102/62 94 98.1 07/20/17 04:00 98.8 100 18 113/63 93 98.8 07/20/17 00:39 94 20 93 Room Air 21 07/20/17 00:39 96 20 96 Room Air 21 07/19/17 23:58 99.7 91 18 115/62 94 99.7 07/19/17 21:45 98.6 07/19/17 20:00 98.6 98 18 117/63 92 98.6 07/19/17 19:30 94 20 Room Air 21 07/19/17 17:59 98.2 07/19/17 15:46 98.2 106 19 110/59 95 98.2 07/19/17 14:58 99.1 07/19/17 11:44 99.1 98 19 119/65 95 99.1 07/19/17 11:30 99.0 Intake and Output 07/19/17 07/20/17 19:00 07:00 Intake Total 590 ml 360 ml Balance 590 ml 360 ml Intake Oral 480 ml 360 ml IV Total 110 ml # Voids 2 3 Objective WDWN NAD reduced breath sounds bilaterally without rhonchi or wheeze [id number] without MRG NABS nontender no HSM no CCE paraplegic Current Medications Medications (Trade) Dose Ordered Sig/Pineda Route PRN Reason Start Time Stop Time Status Last Admin Dose Admin Acetaminophen (Tylenol) 650 mg Q6H PRN ORAL Mild Pain/Temp > 100.5 07/14/17 23:00 08/13/17 22:59 Albuterol Sulfate (Proventil MDI) 2 puff Q4H PRN INH Shortness of Breath 07/14/17 23:00 08/13/17 22:59 07/20/17 00:38 Chlorhexidine Gluconate (Nereida-Hex 2%) 1 applic DAILY@2000 TOPIC 07/16/17 20:00 08/15/17 19:59 07/19/17 21:15 Cyclobenzaprine HCl (Flexeril) 10 mg THREE TIMES A DAY ORAL 07/14/17 22:45 08/13/17 22:44 Cyclobenzaprine HCl (Flexeril) 10 mg THREE TIMES A DAY PRN ORAL Muscle Spasm 07/14/17 23:00 08/13/17 22:59 Daptomycin 600 mg/ Sodium Chloride 110 ml @ 220 mls/hr Q24H IV 07/15/17 11:30 07/22/17 11:29 07/19/17 11:31 Escitalopram Oxalate (Lexapro) 10 mg DAILY ORAL 07/15/17 09:00 08/14/17 08:59 Fluconazole/ Sodium Chloride 200 ml @ 100 mls/hr Q24H IV 07/15/17 18:00 07/22/17 17:59 07/19/17 17:51 Heparin Sodium (Porcine) (Heparin 5000 units/ml) 5,000 units EVERY 12 HOURS SUBQ 07/15/17 21:00 08/14/17 20:59 07/19/17 21:23 Hydromorphone HCl (Dilaudid) 1 mg Q4H PRN IVP Moderate Pain (Pain Scale 4-6) 07/15/17 02:45 07/21/17 22:44 07/15/17 17:40 Hydromorphone HCl (Dilaudid) 2 mg Q3H PRN IVP Severe Pain (Pain Scale 7-10) 07/15/17 00:30 07/22/17 00:29 07/20/17 07:06 Levofloxacin (Levaquin) 500 mg DAILY ORAL 07/18/17 09:00 07/25/17 08:59 07/20/17 08:14 Metronidazole (Flagyl) 500 mg Q8HR ORAL 07/15/17 06:00 07/22/17 05:59 07/20/17 07:06 Minocycline HCl (Minocin) 200 mg Q12HR ORAL 07/15/17 09:00 07/22/17 08:59 07/20/17 08:13 Ondansetron HCl (Zofran) 4 mg Q4H PRN IVP Nausea & Vomiting 07/17/17 09:30 08/16/17 09:29 07/18/17 09:22 Pantoprazole (Protonix) 40 mg DAILY@0600 ORAL 07/15/17 06:00 08/14/17 05:59 07/20/17 07:05 LUANN MICHEL Jul 20, 2017 10:01
--- NOTE | 2017-07-20 11:09 | Diagnostic Imaging Report ---
Indication: Dyspnea Comparison: 07/09/2017 A single view chest radiograph was obtained. Findings: There is evidence of a right pleural effusion. Heart size is within normal limits. There is a PICC line present with the tip projected over the left innominate vein. Bones are unremarkable. IMPRESSION: Increasing right pleural effusion compared to the last exam.
[2017-07-20] MEDS: NS IV SCH (11:21)
[2017-07-20] MEDS: DAPTOMYCIN IV SCH (11:21)
[2017-07-20 12:00] VITALS: BP 100/54
[2017-07-20 16:00] VITALS: BP 117/63
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
[2017-07-20 20:00] VITALS: BP 112/59
[2017-07-20] MEDS: Dyna-Hex 2% Top Sol 2oz TOPIC SCH (21:17)
--- NOTE | 2017-07-20 22:03 | General Progress Note ---
Assessment/Plan Assessment/Plan Assessment - Anemia - prior negative EGD and Colonoscopy - malnutrition, low albumin - Spine osteo - paraspinous abscess - (R) hydro - abnormal LFT - ? passed a stone - resolved - Hepatosplenomegally, ? early portal HTN - (+) GB stones/sludge - Chronic wounds - leukocytosis Recommendations - Push po / protein supplements - follow labs - wound care - ID f/u - monitor intake - Ensure TID PO Subjective Allergies: Coded Allergies: CEFTRIAXONE (Verified Allergy, Intermediate, SOB, HR-140bpm, face swollen , pt became red, 10/24/15) CODEINE (Verified Allergy, Intermediate, SWELLING, 01/03/11) LATEX (Verified Allergy, Intermediate, SWELLING, 01/03/11) PIPERACILLIN (Verified Allergy, Intermediate, Itching, 08/29/15) 08/29/15 tolerates Ceftaroline TAZOBACTAM (Verified Allergy, Intermediate, Itching, 01/29/15) POLYMYXIN B (Verified Allergy, Mild, Rash, 04/08/16) Suspected allergy reported by VANCOMYCIN (Verified Allergy, Mild, 07/15/14) ASPARAGINASE (Verified Allergy, Unknown, 01/28/14) CEFUROXIME (Unverified Allergy, Unknown, 04/19/16) IRON (Verified Allergy, Unknown, 01/28/14) LATEX, NATURAL RUBBER (Unverified Allergy, Unknown, 06/18/16) Subjective Feels OK no new complaints eating well Objective Last 24 Hour Vital Signs Date Time Temp Pulse Resp B/P (MAP) Pulse Ox O2 Delivery O2 Flow Rate FiO2 07/20/17 20:17 97 20 Room Air 21 07/20/17 20:07 99.0 07/20/17 20:00 99.0 101 19 112/59 96 99.0 07/20/17 19:37 99.0 07/20/17 18:05 93 20 96 Room Air 21 07/20/17 18:04 85 18 95 Room Air 21 07/20/17 17:38 99.0 07/20/17 16:24 99.0 07/20/17 16:00 99.0 102 21 117/63 94 99.0 07/20/17 13:09 98.8 07/20/17 13:00 98.8 07/20/17 12:00 98.8 93 16 100/54 96 98.8 07/20/17 10:52 90 18 95 Room Air 21 07/20/17 10:52 90 20 Room Air 21 07/20/17 10:06 98.8 07/20/17 08:19 98.8 07/20/17 08:00 98.1 93 18 102/62 94 98.1 07/20/17 04:00 98.8 100 18 113/63 93 98.8 07/20/17 00:39 94 20 93 Room Air 21 07/20/17 00:39 96 20 96 Room Air 21 07/19/17 23:58 99.7 91 18 115/62 94 99.7 Intake and Output 07/19/17 07/20/17 19:00 07:00 Intake Total 590 ml 360 ml Balance 590 ml 360 ml Intake Oral 480 ml 360 ml IV Total 110 ml # Voids 2 3 Height (Feet): 5 Height (Inches): 5.00 Weight (Pounds): 200 Objective WDWN NCAT supple CTA RRR abd soft, (+) LLQ ostomy (+) paraplegia wounds noted PITER DEAN Jul 20, 2017 22:03
[2017-07-21] VITALS: BP 118/66
[2017-07-21 04:00] VITALS: BP 100/61
[2017-07-21] MEDS: metroNIDAZOLE 500mg tab ORAL SCH ×3 (05:01→20:18)
[2017-07-21 07:15] LABS: ALANINE AMINOTRANSFERASE < 6 U/L (12-78); ALBUMIN 1.3 G/DL (3.4-5.0); ALBUMIN/GLOBULIN RATIO 0.2 (1.0-2.7); ALKALINE PHOSPHATASE 75 U/L (46-116); ANION GAP 5 mmol/L (5-15); ASPARTATE AMINO TRANSFERASE 8 U/L (15-37); BILIRUBIN,TOTAL 0.3 MG/DL (0.2-1.0); BLOOD UREA NITROGEN 10 mg/dL (7-18); CARBON DIOXIDE 31 MMOL/L (21-32); CHLORIDE 101 MMOL/L (98-107); CREATININE 0.7 MG/DL (0.55-1.30); POTASSIUM 4.1 MMOL/L (3.5-5.1); SODIUM 137 MMOL/L (136-145)
[2017-07-21 07:19] LABS: BASOPHILS % (AUTO) 0.6 % (0.0-2.0); EOSINOPHILS % (AUTO) 3.8 % (0.0-3.0); HEMOGLOBIN 8.4 G/DL (12.0-16.0); LYMPHOCYTES % (AUTO) 30.7 % (20.0-45.0); MEAN CORPUSCULAR VOLUME 82 FL (80-99); MONOCYTES % (AUTO) 8.9 % (1.0-10.0); PLATELET COUNT 441 K/UL (150-450); RED BLOOD COUNT 3.16 M/UL (4.20-5.40); RED CELL DISTRIBUTION WIDTH 17.4 % (11.6-14.8); WHITE BLOOD COUNT 6.8 K/UL (4.8-10.8)
[2017-07-21] MEDS: Levofloxacin 500mg tab ORAL SCH (08:01)
[2017-07-21] MEDS: Heparin 5000 units/ml inj SUBQ SCH ×2 (08:02→20:22)
[2017-07-21] MEDS: Cyclobenzaprine 10mg Tab ORAL SCH ×3 (08:02→17:12)
[2017-07-21 08:07] VITALS: BP 108/62
--- NOTE | 2017-07-21 08:26 | General Progress Note ---
Assessment/Plan Problem List: (1) Chronic osteomyelitis of hip ICD Codes: M86.68 - Other chronic osteomyelitis, other site SNOMED: 812086267 (2) Pressure ulcer ICD Codes: L89.90 - Decubitus ulcer SNOMED: 878988950 (3) Abscess ICD Codes: L02.91 - Abscess SNOMED: 245585282 Status: stable, progressing Assessment/Plan abx wound care plastics eval noted- no surgical intervention recommended- wounds are clear per plastics and can be treated at the wound care center ivf as nneded antiemetics and pain rx d.w radioliogy- only one of pts abscess was drained. could re-attempt drainage again. pt could not tolerate positioning. pt declined repeat attempt ?dc planning Subjective ROS Limited/Unobtainable: No Constitutional: Reports: malaise, weakness HEENT: Reports: no symptoms Cardiovascular: Reports: no symptoms Respiratory: Reports: no symptoms Gastrointestinal/Abdominal: Reports: nausea Genitourinary: Reports: no symptoms 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: Reports: pre-existing deficit Endocrine: Reports: no symptoms Hematologic/Lymphatic: Reports: no symptoms Allergies: Coded Allergies: CEFTRIAXONE (Verified Allergy, Intermediate, SOB, HR-140bpm, face swollen , pt became red, 10/24/15) CODEINE (Verified Allergy, Intermediate, SWELLING, 01/03/11) LATEX (Verified Allergy, Intermediate, SWELLING, 01/03/11) PIPERACILLIN (Verified Allergy, Intermediate, Itching, 08/29/15) 08/29/15 tolerates Ceftaroline TAZOBACTAM (Verified Allergy, Intermediate, Itching, 01/29/15) POLYMYXIN B (Verified Allergy, Mild, Rash, 04/08/16) Suspected allergy reported by VANCOMYCIN (Verified Allergy, Mild, 07/15/14) ASPARAGINASE (Verified Allergy, Unknown, 01/28/14) CEFUROXIME (Unverified Allergy, Unknown, 04/19/16) IRON (Verified Allergy, Unknown, 01/28/14) LATEX, NATURAL RUBBER (Unverified Allergy, Unknown, 06/18/16) All Systems: reviewed and negative except above Subjective pain controlled on current rx. on iv abx. failed prior attempts to drain paraspinous abscess in the past. could not tolerate position. currently nontoxic. overall feels better. declined repeat attempt at abscess drainage Objective Last 24 Hour Vital Signs Date Time Temp Pulse Resp B/P (MAP) Pulse Ox O2 Delivery O2 Flow Rate FiO2 07/21/17 08:07 98.4 99 18 108/62 91 98.4 07/21/17 05:32 99.0 07/21/17 05:02 99.0 07/21/17 04:00 98.2 101 18 100/61 91 98.2 07/21/17 01:33 99.0 07/21/17 00:00 94 Room Air 07/21/17 00:00 99.0 100 18 118/66 94 99.0 07/20/17 22:36 99.0 07/20/17 20:17 97 20 Room Air 21 07/20/17 20:00 96 Room Air 07/20/17 20:00 99.0 101 19 112/59 96 99.0 07/20/17 19:37 99.0 07/20/17 18:05 93 20 96 Room Air 21 07/20/17 18:04 85 18 95 Room Air 21 07/20/17 17:38 99.0 07/20/17 16:24 99.0 07/20/17 16:00 99.0 102 21 117/63 94 99.0 07/20/17 13:09 98.8 07/20/17 13:00 98.8 07/20/17 12:00 98.8 93 16 100/54 96 98.8 07/20/17 10:52 90 18 95 Room Air 21 07/20/17 10:52 90 20 Room Air 21 07/20/17 10:06 98.8 Intake and Output 07/20/17 07/21/17 19:00 07:00 Intake Total 960 ml 875 ml Balance 960 ml 875 ml Intake Oral 750 ml 775 ml IV Total 210 ml 100 ml # Voids 4 3 # Bowel Movements 2 Laboratory Tests 07/21/17 05:00: White Blood Count 6.8, Red Blood Count 3.16L, Hemoglobin 8.4L, Hematocrit 26.0L , Mean Corpuscular Volume 82, Mean Corpuscular Hemoglobin 26.6L, Mean Corpuscular Hemoglobin Concent 32.3, Red Cell Distribution Width 17.4H, Platelet Count 441, Mean Platelet Volume 6.8, Neutrophils (%) (Auto) 56.0, Lymphocytes (%) (Auto) 30.7, Monocytes (%) (Auto) 8.9, Eosinophils (%) (Auto) 3.8H, Basophils (%) (Auto) 0.6, Sodium Level 137, Potassium Level 4.1, Chloride Level 101, Carbon Dioxide Level 31, Anion Gap 5, Blood Urea Nitrogen 10, Creatinine 0.7, Estimat Glomerular Filtration Rate > 60, Glucose Level 81, Calcium Level 8.0L, Total Bilirubin 0.3, Aspartate Amino Transf (AST/SGOT) 8L, Alanine Aminotransferase (ALT/SGPT) < 6L, Alkaline Phosphatase 75, Total Protein 6.7, Albumin 1.3L, Globulin 5.4, Albumin/Globulin Ratio 0.2L Height (Feet): 5 Height (Inches): 5.00 Weight (Pounds): 200 Objective General Appearance: WD/WN Neck: supple Cardiovascular: normal rate Respiratory/Chest: chest wall non-tender, lungs clear Abdomen: normal bowel sounds, non tender, soft, no organomegaly Edema: no edema noted Arm (L), no edema noted Arm (R), no edema noted Leg (L), no edema noted Leg (R), no edema noted Pedal (L), no edema noted Pedal (R), no edema noted Generalized BONG BRUNNER Jul 21, 2017 08:26
[2017-07-21] MEDS: Minocycline HCl 50mg cap ORAL SCH (09:00)
[2017-07-21 11:50] VITALS: BP 110/66
[2017-07-21] MEDS: NS IV SCH (12:23)
[2017-07-21] MEDS: DAPTOMYCIN IV SCH (12:23)
[2017-07-21] MEDS: MINOCYCLINE 100 MG ORAL SCH ×2 (12:24→20:18)
--- NOTE | 2017-07-21 12:38 | Pulmonology Progress Note ---
Assessment/Plan Assessment/Plan pleural effusions pulmonary infiltrates multiple abceesses paraplegia paraspinous abcess PLAN care noted IV antibiotics noted proceed with tap ID noted and reviewed wound care ongoing ? plan for home care ? need to repeat imaging per ID monitor oxygen needs; currently stable impression, plan, and exam edited and reviewed in detail care discussed with RN Subjective Allergies: Coded Allergies: CEFTRIAXONE (Verified Allergy, Intermediate, SOB, HR-140bpm, face swollen , pt became red, 10/24/15) CODEINE (Verified Allergy, Intermediate, SWELLING, 01/03/11) LATEX (Verified Allergy, Intermediate, SWELLING, 01/03/11) PIPERACILLIN (Verified Allergy, Intermediate, Itching, 08/29/15) 08/29/15 tolerates Ceftaroline TAZOBACTAM (Verified Allergy, Intermediate, Itching, 01/29/15) POLYMYXIN B (Verified Allergy, Mild, Rash, 04/08/16) Suspected allergy reported by VANCOMYCIN (Verified Allergy, Mild, 07/15/14) ASPARAGINASE (Verified Allergy, Unknown, 01/28/14) CEFUROXIME (Unverified Allergy, Unknown, 04/19/16) IRON (Verified Allergy, Unknown, 01/28/14) LATEX, NATURAL RUBBER (Unverified Allergy, Unknown, 06/18/16) Subjective care noted and reviewed no distress appetite better Objective Last 24 Hour Vital Signs Date Time Temp Pulse Resp B/P (MAP) Pulse Ox O2 Delivery O2 Flow Rate FiO2 07/21/17 11:50 98.2 90 20 110/66 95 98.2 07/21/17 11:39 98.2 07/21/17 11:09 98.4 07/21/17 08:46 76 18 Room Air 21 07/21/17 08:07 98.4 99 18 108/62 91 98.4 07/21/17 05:02 99.0 07/21/17 04:00 98.2 101 18 100/61 91 98.2 07/21/17 01:33 99.0 07/21/17 00:00 94 Room Air 07/21/17 00:00 99.0 100 18 118/66 94 99.0 07/20/17 22:36 99.0 07/20/17 20:17 97 20 Room Air 21 07/20/17 20:00 96 Room Air 07/20/17 20:00 99.0 101 19 112/59 96 99.0 07/20/17 19:37 99.0 07/20/17 18:05 93 20 96 Room Air 21 07/20/17 18:04 85 18 95 Room Air 21 07/20/17 17:38 99.0 07/20/17 16:24 99.0 07/20/17 16:00 99.0 102 21 117/63 94 99.0 07/20/17 13:09 98.8 07/20/17 13:00 98.8 Intake and Output 07/20/17 07/21/17 19:00 07:00 Intake Total 960 ml 875 ml Balance 960 ml 875 ml Intake Oral 750 ml 775 ml IV Total 210 ml 100 ml # Voids 4 3 # Bowel Movements 2 Objective WDWN NAD reduced breath sounds bilaterally without rhonchi or wheeze [id number] without MRG NABS nontender no HSM no CCE paraplegic Laboratory Tests 07/21/17 05:00: White Blood Count 6.8, Red Blood Count 3.16L, Hemoglobin 8.4L, Hematocrit 26.0L , Mean Corpuscular Volume 82, Mean Corpuscular Hemoglobin 26.6L, Mean Corpuscular Hemoglobin Concent 32.3, Red Cell Distribution Width 17.4H, Platelet Count 441, Mean Platelet Volume 6.8, Neutrophils (%) (Auto) 56.0, Lymphocytes (%) (Auto) 30.7, Monocytes (%) (Auto) 8.9, Eosinophils (%) (Auto) 3.8H, Basophils (%) (Auto) 0.6, Sodium Level 137, Potassium Level 4.1, Chloride Level 101, Carbon Dioxide Level 31, Anion Gap 5, Blood Urea Nitrogen 10, Creatinine 0.7, Estimat Glomerular Filtration Rate > 60, Glucose Level 81, Calcium Level 8.0L, Total Bilirubin 0.3, Aspartate Amino Transf (AST/SGOT) 8L, Alanine Aminotransferase (ALT/SGPT) < 6L, Alkaline Phosphatase 75, Total Protein 6.7, Albumin 1.3L, Globulin 5.4, Albumin/Globulin Ratio 0.2L Current Medications Medications (Trade) Dose Ordered Sig/Pineda Route PRN Reason Start Time Stop Time Status Last Admin Dose Admin Acetaminophen (Tylenol) 650 mg Q6H PRN ORAL Mild Pain/Temp > 100.5 07/14/17 23:00 08/13/17 22:59 Albuterol Sulfate (Proventil MDI) 2 puff Q4H PRN INH Shortness of Breath 07/14/17 23:00 08/13/17 22:59 07/20/17 18:04 Chlorhexidine Gluconate (Nereida-Hex 2%) 1 applic DAILY@2000 TOPIC 07/16/17 20:00 08/15/17 19:59 07/20/17 21:17 Cyclobenzaprine HCl (Flexeril) 10 mg THREE TIMES A DAY ORAL 07/14/17 22:45 08/13/17 22:44 Cyclobenzaprine HCl (Flexeril) 10 mg THREE TIMES A DAY PRN ORAL Muscle Spasm 07/14/17 23:00 08/13/17 22:59 Daptomycin 600 mg/ Sodium Chloride 110 ml @ 220 mls/hr Q24H IV 07/21/17 11:30 07/28/17 11:29 07/21/17 12:23 Escitalopram Oxalate (Lexapro) 10 mg DAILY ORAL 07/15/17 09:00 08/14/17 08:59 Fluconazole/ Sodium Chloride 200 ml @ 100 mls/hr Q24H IV 07/20/17 18:00 07/27/17 17:59 07/20/17 17:38 Heparin Sodium (Porcine) (Heparin 5000 units/ml) 5,000 units EVERY 12 HOURS SUBQ 07/15/17 21:00 08/14/17 20:59 07/20/17 21:20 Hydromorphone HCl (Dilaudid) 1 mg Q4H PRN IVP Moderate Pain (Pain Scale 4-6) 07/15/17 02:45 07/21/17 22:44 07/15/17 17:40 Hydromorphone HCl (Dilaudid) 2 mg Q3H PRN IVP Severe Pain (Pain Scale 7-10) 07/15/17 00:30 07/22/17 00:29 07/21/17 11:09 Levofloxacin (Levaquin) 500 mg DAILY ORAL 07/18/17 09:00 07/25/17 08:59 07/21/17 08:01 Metronidazole (Flagyl) 500 mg Q8HR ORAL 07/20/17 22:00 07/27/17 21:59 07/21/17 05:01 Minocycline HCl (Minocin) 200 mg Q12HR ORAL 07/22/17 21:00 07/29/17 20:59 Non-Formulary Medication (Non-Formulary Med) 2 ea Q12HR ORAL 07/21/17 12:00 07/22/17 09:01 07/21/17 12:24 Ondansetron HCl (Zofran) 4 mg Q4H PRN IVP Nausea & Vomiting 07/17/17 09:30 08/16/17 09:29 07/21/17 12:25 Pantoprazole (Protonix) 40 mg DAILY@0600 ORAL 07/15/17 06:00 08/14/17 05:59 07/21/17 05:01 LUANN MICHEL Jul 21, 2017 12:38
[2017-07-21 14:47] LABS: INR 1.5 (0.9-1.1)
[2017-07-21] MEDS: Albuterol 90mcg Inhaler 8gm INH PRN (14:57)
[2017-07-21 15:44] VITALS: BP 114/58
[2017-07-21 20:14] VITALS: BP 111/63
[2017-07-21] MEDS: Dyna-Hex 2% Top Sol 2oz TOPIC SCH (20:17)
--- NOTE | 2017-07-21 21:59 | General Progress Note ---
Assessment/Plan Assessment/Plan Assessment - Anemia - prior negative EGD and Colonoscopy - malnutrition, low albumin - Spine osteo - paraspinous abscess - (R) hydro - abnormal LFT - ? passed a stone - resolved - Hepatosplenomegally, ? early portal HTN - (+) GB stones/sludge - Chronic wounds - leukocytosis Recommendations - Push po / protein supplements - follow labs - wound care - ID f/u - monitor intake - Ensure TID PO Subjective Allergies: Coded Allergies: CEFTRIAXONE (Verified Allergy, Intermediate, SOB, HR-140bpm, face swollen , pt became red, 10/24/15) CODEINE (Verified Allergy, Intermediate, SWELLING, 01/03/11) LATEX (Verified Allergy, Intermediate, SWELLING, 01/03/11) PIPERACILLIN (Verified Allergy, Intermediate, Itching, 08/29/15) 08/29/15 tolerates Ceftaroline TAZOBACTAM (Verified Allergy, Intermediate, Itching, 01/29/15) POLYMYXIN B (Verified Allergy, Mild, Rash, 04/08/16) Suspected allergy reported by VANCOMYCIN (Verified Allergy, Mild, 07/15/14) ASPARAGINASE (Verified Allergy, Unknown, 01/28/14) CEFUROXIME (Unverified Allergy, Unknown, 04/19/16) IRON (Verified Allergy, Unknown, 01/28/14) LATEX, NATURAL RUBBER (Unverified Allergy, Unknown, 06/18/16) Subjective Feels OK no new complaints eating well taking shakes Objective Last 24 Hour Vital Signs Date Time Temp Pulse Resp B/P (MAP) Pulse Ox O2 Delivery O2 Flow Rate FiO2 07/21/17 20:49 99.0 07/21/17 20:19 99.0 07/21/17 20:14 99.0 97 18 111/63 94 99.0 07/21/17 19:30 80 20 Room Air 21 07/21/17 17:19 98.2 07/21/17 15:44 98.2 100 20 114/58 96 98.2 07/21/17 14:57 82 20 95 Room Air 21 07/21/17 14:00 98.2 07/21/17 11:50 98.2 90 20 110/66 95 98.2 07/21/17 11:09 98.4 07/21/17 08:46 76 18 Room Air 07/21/17 08:07 98.4 99 18 108/62 91 98.4 07/21/17 05:02 99.0 07/21/17 04:00 98.2 101 18 100/61 91 98.2 07/21/17 01:33 99.0 07/21/17 00:00 94 Room Air 07/21/17 00:00 99.0 100 18 118/66 94 99.0 07/20/17 22:36 99.0 Intake and Output 07/20/17 07/21/17 19:00 07:00 Intake Total 960 ml 875 ml Balance 960 ml 875 ml Intake Oral 750 ml 775 ml IV Total 210 ml 100 ml # Voids 4 3 # Bowel Movements 2 Laboratory Tests 07/21/17 05:00: White Blood Count 6.8, Red Blood Count 3.16L, Hemoglobin 8.4L, Hematocrit 26.0L , Mean Corpuscular Volume 82, Mean Corpuscular Hemoglobin 26.6L, Mean Corpuscular Hemoglobin Concent 32.3, Red Cell Distribution Width 17.4H, Platelet Count 441, Mean Platelet Volume 6.8, Neutrophils (%) (Auto) 56.0, Lymphocytes (%) (Auto) 30.7, Monocytes (%) (Auto) 8.9, Eosinophils (%) (Auto) 3.8H, Basophils (%) (Auto) 0.6, Sodium Level 137, Potassium Level 4.1, Chloride Level 101, Carbon Dioxide Level 31, Anion Gap 5, Blood Urea Nitrogen 10, Creatinine 0.7, Estimat Glomerular Filtration Rate > 60, Glucose Level 81, Calcium Level 8.0L, Total Bilirubin 0.3, Aspartate Amino Transf (AST/SGOT) 8L, Alanine Aminotransferase (ALT/SGPT) < 6L, Alkaline Phosphatase 75, Total Protein 6.7, Albumin 1.3L, Globulin 5.4, Albumin/Globulin Ratio 0.2L 07/21/17 13:00: Prothrombin Time 16.1H, Prothromb Time International Ratio 1.5H, Activated Partial Thromboplast Time 84H Height (Feet): 5 Height (Inches): 5.00 Weight (Pounds): 200 Objective WDWN NCAT supple CTA RRR abd soft, (+) LLQ ostomy (+) paraplegia wounds noted PITER DEAN Jul 21, 2017 21:59
[2017-07-22 03:59] VITALS: BP 114/59
[2017-07-22] MEDS: Albuterol 90mcg Inhaler 8gm INH PRN ×2 (03:59→22:25)
[2017-07-22] MEDS: metroNIDAZOLE 500mg tab ORAL SCH ×3 (05:56→20:01)
[2017-07-22 08:22] VITALS: BP 104/57
[2017-07-22 08:26] LABS: CKMB < 0.5 NG/ML (0.0-3.6); CREATINE KINASE 11 U/L (26-308)
[2017-07-22] MEDS: Cyclobenzaprine 10mg Tab ORAL SCH ×3 (08:38→16:57)
[2017-07-22] MEDS: Heparin 5000 units/ml inj SUBQ SCH ×2 (08:40→20:05)
[2017-07-22] MEDS: MINOCYCLINE 100 MG ORAL SCH (08:42)
[2017-07-22] MEDS: Levofloxacin 500mg tab ORAL SCH (08:42)
[2017-07-22] MEDS ORDERED: LORazepam Inj 2mg/ml 1ml IV SCH (11:15)
[2017-07-22 11:51] VITALS: BP 104/53
--- NOTE | 2017-07-22 12:24 | Pre-Procedure Note/Attestation ---
Pre-Procedure Note/Attestation Complete Prior to Procedure Planned Procedure: right Procedure Narrative: thoracentesis Indications for Procedure Pre-Operative Diagnosis: pleural effusion Attestation I attest that I discussed the nature of the procedure; its benefits; risks and complications; and alternatives (and the risks and benefits of such alternatives ), prior to the procedure, with the patient (or the patient's legal medical device sales representative). I attest that, if there was a reasonable possibility of needing a blood transfusion, the patient (or the patient's legal medical device sales representative) was given the [facility] standardized written summary, pursuant to the [place] Blood Safety Act ([place] Health and Safety Code # 1645, as amended). I attest that I re-evaluated the patient just prior to the surgery and that there has been no change in the patient's H&P, except as documented below: XANDER NOLAN M.D. Jul 22, 2017 12:24
--- NOTE | 2017-07-22 12:25 | Brief Operative Note ---
Immediate Post Operative Note Operative Note Pre-op Diagnosis: pleural effusion Procedure: Thoracentesis Post-op Diagnosis: pleural effusion Post-op Diagnosis: same as pre-op Findings: consistent w/pre-op dx studies Surgeon: Lourdes NOLAN Anesthesia: local Specimen: yes - blood tinged fluid Complications: none Condition: stable Fluids: none Implant(s) used?: No XANDER NOLAN M.D. Jul 22, 2017 12:25
[2017-07-22] MEDS: DAPTOMYCIN IV SCH (13:27)
[2017-07-22] MEDS: NS IV SCH (13:27)
--- NOTE | 2017-07-22 13:34 | Pulmonology Progress Note ---
Assessment/Plan Assessment/Plan pleural effusions pulmonary infiltrates multiple abceesses paraplegia paraspinous abcess PLAN care noted IV antibiotics noted proceed with tap for today ID noted and reviewed wound care ongoing ? plan for home care monitor clinically and provide benzo as needed monitor oxygen needs; currently stable impression, plan, and exam edited and reviewed in detail care discussed with RN Subjective Allergies: Coded Allergies: CEFTRIAXONE (Verified Allergy, Intermediate, SOB, HR-140bpm, face swollen , pt became red, 10/24/15) CODEINE (Verified Allergy, Intermediate, SWELLING, 01/03/11) LATEX (Verified Allergy, Intermediate, SWELLING, 01/03/11) PIPERACILLIN (Verified Allergy, Intermediate, Itching, 08/29/15) 08/29/15 tolerates Ceftaroline TAZOBACTAM (Verified Allergy, Intermediate, Itching, 01/29/15) POLYMYXIN B (Verified Allergy, Mild, Rash, 04/08/16) Suspected allergy reported by MD VANCOMYCIN (Verified Allergy, Mild, 07/15/14) ASPARAGINASE (Verified Allergy, Unknown, 01/28/14) CEFUROXIME (Unverified Allergy, Unknown, 04/19/16) IRON (Verified Allergy, Unknown, 01/28/14) LATEX, NATURAL RUBBER (Unverified Allergy, Unknown, 06/18/16) Subjective care noted and reviewed with nursing no distress appetite better Objective Last 24 Hour Vital Signs Date Time Temp Pulse Resp B/P (MAP) Pulse Ox O2 Delivery O2 Flow Rate FiO2 07/22/17 11:51 98.1 92 20 104/53 100 98.1 07/22/17 08:22 97.5 92 20 104/57 95 97.5 07/22/17 06:27 98.8 07/22/17 05:57 98.8 07/22/17 04:04 90 20 97 Room Air 21 07/22/17 04:01 88 20 94 Room Air 21 07/22/17 03:59 98.8 98 19 114/59 94 Room Air 98.8 07/22/17 02:56 99.0 07/21/17 23:50 99.0 07/21/17 23:20 99.0 07/21/17 20:19 99.0 07/21/17 20:14 99.0 97 18 111/63 94 99.0 07/21/17 19:30 80 20 Room Air 21 07/21/17 17:19 98.2 07/21/17 15:44 98.2 100 20 114/58 96 98.2 07/21/17 14:57 82 20 95 Room Air 21 07/21/17 14:00 98.2 Intake and Output 07/21/17 07/22/17 18:59 06:59 Intake Total 720 ml 480 ml Balance 720 ml 480 ml Intake Oral 720 ml 280 ml IV Total 200 ml # Voids 2 2 # Bowel Movements 1 1 Objective WDWN NAD reduced breath sounds bilaterally without rhonchi or wheeze [id number] without MRG NABS nontender no HSM no CCE paraplegic Laboratory Tests 07/22/17 06:00: Total Creatine Kinase 11L, Creatine Kinase MB < 0.5, Creatine Kinase MB Relative Index Current Medications Medications (Trade) Dose Ordered Sig/Pineda Route PRN Reason Start Time Stop Time Status Last Admin Dose Admin Acetaminophen (Tylenol) 650 mg Q6H PRN ORAL Mild Pain/Temp > 100.5 07/14/17 23:00 08/13/17 22:59 Albuterol Sulfate (Proventil MDI) 2 puff Q4H PRN INH Shortness of Breath 07/14/17 23:00 08/13/17 22:59 07/22/17 03:59 Chlorhexidine Gluconate (Nereida-Hex 2%) 1 applic DAILY@2000 TOPIC 07/16/17 20:00 08/15/17 19:59 07/21/17 20:17 Cyclobenzaprine HCl (Flexeril) 10 mg THREE TIMES A DAY ORAL 07/14/17 22:45 08/13/17 22:44 Cyclobenzaprine HCl (Flexeril) 10 mg THREE TIMES A DAY PRN ORAL Muscle Spasm 07/14/17 23:00 08/13/17 22:59 Daptomycin 600 mg/ Sodium Chloride 110 ml @ 220 mls/hr Q24H IV 07/21/17 11:30 07/28/17 11:29 07/22/17 13:27 Escitalopram Oxalate (Lexapro) 10 mg DAILY ORAL 07/15/17 09:00 08/14/17 08:59 Fluconazole/ Sodium Chloride 200 ml @ 100 mls/hr Q24H IV 07/20/17 18:00 07/27/17 17:59 07/21/17 18:53 Heparin Sodium (Porcine) (Heparin 5000 units/ml) 5,000 units EVERY 12 HOURS SUBQ 07/15/17 21:00 08/14/17 20:59 07/22/17 08:40 Hydromorphone HCl (Dilaudid) 2 mg Q3H PRN IVP Severe Pain (Pain Scale 7-10) 07/22/17 02:45 07/29/17 02:44 07/22/17 13:26 Levofloxacin (Levaquin) 500 mg DAILY ORAL 07/18/17 09:00 07/25/17 08:59 07/22/17 08:42 Metronidazole (Flagyl) 500 mg Q8HR ORAL 07/20/17 22:00 07/27/17 21:59 07/22/17 13:27 Minocycline HCl (Minocin) 200 mg Q12HR ORAL 07/22/17 21:00 07/29/17 20:59 Ondansetron HCl (Zofran) 4 mg Q4H PRN IVP Nausea & Vomiting 07/17/17 09:30 08/16/17 09:29 07/21/17 12:25 Pantoprazole (Protonix) 40 mg DAILY@0600 ORAL 07/15/17 06:00 08/14/17 05:59 07/22/17 05:56 LUANN MICHEL Jul 22, 2017 13:34
--- NOTE | 2017-07-22 13:51 | Diagnostic Imaging Report ---
Indications: Pleural effusion Technique: Ultrasound used to localize optimal puncture site. Sterile prepping and draping right chest. Local anesthesia with 1% lidocaine. Under real-time ultrasound guidance, puncture pleural space using thoracentesis needle. Stylet removed. Catheter placed to vacuum bottle suction. Total 1000 milliliters of blood-tinged fluid aspirated. Patient tolerated procedure well, without immediate complication. Findings: Followup sonography demonstrates complete resolution of pleural fluid. Impression: Successful ultrasound-guided thoracentesis, yielding 1000 milliliters of blood tinged fluid
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
--- NOTE | 2017-07-22 14:41 | General Progress Note ---
Assessment/Plan Problem List: (1) Chronic osteomyelitis of hip ICD Codes: M86.68 - Other chronic osteomyelitis, other site SNOMED: 537467791 (2) Pressure ulcer ICD Codes: L89.90 - Decubitus ulcer SNOMED: 155526797 (3) Abscess ICD Codes: L02.91 - Abscess SNOMED: 241997021 Status: stable, progressing Assessment/Plan abx per iD wound care plastics eval noted- no surgical intervention recommended- wounds are clear per plastics and can be treated at the wound care center ivf as neded antiemetics and pain rx tap effusion Subjective ROS Limited/Unobtainable: No Constitutional: Reports: malaise, weakness HEENT: Reports: no symptoms Cardiovascular: Reports: no symptoms Respiratory: Reports: no symptoms Genitourinary: Reports: no symptoms 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: Reports: pre-existing deficit Endocrine: Reports: no symptoms Hematologic/Lymphatic: Reports: anemia Allergies: Coded Allergies: CEFTRIAXONE (Verified Allergy, Intermediate, SOB, HR-140bpm, face swollen , pt became red, 10/24/15) CODEINE (Verified Allergy, Intermediate, SWELLING, 01/03/11) LATEX (Verified Allergy, Intermediate, SWELLING, 01/03/11) PIPERACILLIN (Verified Allergy, Intermediate, Itching, 08/29/15) 08/29/15 tolerates Ceftaroline TAZOBACTAM (Verified Allergy, Intermediate, Itching, 01/29/15) POLYMYXIN B (Verified Allergy, Mild, Rash, 04/08/16) Suspected allergy reported by VANCOMYCIN (Verified Allergy, Mild, 07/15/14) ASPARAGINASE (Verified Allergy, Unknown, 01/28/14) CEFUROXIME (Unverified Allergy, Unknown, 04/19/16) IRON (Verified Allergy, Unknown, 01/28/14) LATEX, NATURAL RUBBER (Unverified Allergy, Unknown, 06/18/16) All Systems: reviewed and negative except above Subjective pain controlled on current rx. on iv abx. failed prior attempts to drain paraspinous abscess in the past. could not tolerate position. currently nontoxic. overall feels better. declined repeat attempt at abscess drainage scheduled for thoracentesis. no vomiting Objective Last 24 Hour Vital Signs Date Time Temp Pulse Resp B/P (MAP) Pulse Ox O2 Delivery O2 Flow Rate FiO2 07/22/17 11:51 98.1 92 20 104/53 100 98.1 07/22/17 08:22 97.5 92 20 104/57 95 97.5 07/22/17 06:27 98.8 07/22/17 05:57 98.8 07/22/17 04:04 90 20 97 Room Air 21 07/22/17 04:01 88 20 94 Room Air 21 07/22/17 03:59 98.8 98 19 114/59 94 Room Air 98.8 07/22/17 02:56 99.0 07/21/17 23:50 99.0 07/21/17 23:20 99.0 07/21/17 20:19 99.0 07/21/17 20:14 99.0 97 18 111/63 94 99.0 07/21/17 19:30 80 20 Room Air 21 07/21/17 17:19 98.2 07/21/17 15:44 98.2 100 20 114/58 96 98.2 07/21/17 14:57 82 20 95 Room Air 21 Intake and Output 07/21/17 07/22/17 19:00 07:00 Intake Total 720 ml 480 ml Balance 720 ml 480 ml Intake Oral 720 ml 280 ml IV Total 200 ml # Voids 2 2 # Bowel Movements 1 1 Laboratory Tests 07/22/17 06:00: Total Creatine Kinase 11L, Creatine Kinase MB < 0.5, Creatine Kinase MB Relative Index Height (Feet): 5 Height (Inches): 5.00 Weight (Pounds): 200 Objective General Appearance: WD/WN Neck: supple Cardiovascular: normal rate Respiratory/Chest: chest wall non-tender, lungs clear Abdomen: normal bowel sounds, non tender, soft, no organomegaly Edema: no edema noted Arm (L), no edema noted Arm (R), no edema noted Leg (L), no edema noted Leg (R), no edema noted Pedal (L), no edema noted Pedal (R), no edema noted Generalized BONG BRUNNER Jul 22, 2017 14:41
[2017-07-22 15:27] VITALS: BP 112/62
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
[2017-07-22] MEDS: Dyna-Hex 2% Top Sol 2oz TOPIC SCH (20:01)
[2017-07-22 20:02] VITALS: BP 102/59
--- NOTE | 2017-07-22 21:07 | General Progress Note ---
Assessment/Plan Assessment/Plan Assessment - Anemia - prior negative EGD and Colonoscopy - malnutrition, low albumin - Spine osteo - paraspinous abscess - (R) hydro - abnormal LFT - ? passed a stone - resolved - Hepatosplenomegally, ? early portal HTN - (+) GB stones/sludge - Chronic wounds - leukocytosis Recommendations - Push po / protein supplements - follow labs - wound care - ID f/u - monitor intake - Ensure TID PO Subjective Allergies: Coded Allergies: CEFTRIAXONE (Verified Allergy, Intermediate, SOB, HR-140bpm, face swollen , pt became red, 10/24/15) CODEINE (Verified Allergy, Intermediate, SWELLING, 01/03/11) LATEX (Verified Allergy, Intermediate, SWELLING, 01/03/11) PIPERACILLIN (Verified Allergy, Intermediate, Itching, 08/29/15) 08/29/15 tolerates Ceftaroline TAZOBACTAM (Verified Allergy, Intermediate, Itching, 01/29/15) POLYMYXIN B (Verified Allergy, Mild, Rash, 04/08/16) Suspected allergy reported by VANCOMYCIN (Verified Allergy, Mild, 07/15/14) ASPARAGINASE (Verified Allergy, Unknown, 01/28/14) CEFUROXIME (Unverified Allergy, Unknown, 04/19/16) IRON (Verified Allergy, Unknown, 01/28/14) LATEX, NATURAL RUBBER (Unverified Allergy, Unknown, 06/18/16) Subjective Feels OK no new complaints eating well taking shakes Objective Last 24 Hour Vital Signs Date Time Temp Pulse Resp B/P (MAP) Pulse Ox O2 Delivery O2 Flow Rate FiO2 07/22/17 20:31 99.3 07/22/17 20:02 99.3 100 20 102/59 90 Room Air 99.3 07/22/17 20:01 97.8 07/22/17 15:27 97.8 95 20 112/62 100 97.8 07/22/17 11:51 98.1 92 20 104/53 100 98.1 07/22/17 08:22 97.5 92 20 104/57 95 97.5 07/22/17 05:57 98.8 07/22/17 04:04 90 20 97 Room Air 21 07/22/17 04:01 88 20 94 Room Air 21 07/22/17 03:59 98.8 98 19 114/59 94 Room Air 98.8 07/22/17 02:56 99.0 07/21/17 23:50 99.0 07/21/17 23:20 99.0 Intake and Output 07/21/17 07/22/17 19:00 07:00 Intake Total 720 ml 480 ml Balance 720 ml 480 ml Intake Oral 720 ml 280 ml IV Total 200 ml # Voids 2 2 # Bowel Movements 1 1 Laboratory Tests 07/22/17 06:00: Total Creatine Kinase 11L, Creatine Kinase MB < 0.5, Creatine Kinase MB Relative Index Height (Feet): 5 Height (Inches): 5.00 Weight (Pounds): 200 Objective WDWN NCAT supple CTA RRR abd soft, (+) LLQ ostomy (+) paraplegia wounds noted PITER DEAN Jul 22, 2017 21:07
[2017-07-22] MEDS: Minocycline HCl 50mg cap ORAL SCH (21:24)
[2017-07-22] MEDS ORDERED: Sodium Chloride 500ML 500 ML IV ONE (22:30)
[2017-07-23] VITALS: BP 98/56
[2017-07-23 04:00] VITALS: BP 111/62
[2017-07-23] MEDS: metroNIDAZOLE 500mg tab ORAL SCH ×4 (06:00→22:00)
[2017-07-23] MEDS: Albuterol 90mcg Inhaler 8gm INH PRN (07:07)
[2017-07-23 08:00] VITALS: BP 119/54
[2017-07-23] MEDS: Cyclobenzaprine 10mg Tab ORAL SCH ×3 (09:00→17:24)
[2017-07-23] MEDS: Heparin 5000 units/ml inj SUBQ SCH ×2 (09:00→21:16)
[2017-07-23] MEDS: Minocycline HCl 50mg cap ORAL SCH ×2 (09:24→21:14)
[2017-07-23] MEDS: Levofloxacin 500mg tab ORAL SCH (09:24)
--- NOTE | 2017-07-23 11:02 | Pulmonology Progress Note ---
Assessment/Plan Assessment/Plan pleural effusions pulmonary infiltrates multiple abceesses paraplegia paraspinous abcess s/p tap sinus tachy PLAN care noted IV antibiotics noted follow up fluid cultures ID noted and reviewed wound care ongoing tele monitoring monitor clinically and provide benzo as needed monitor oxygen needs; currently stable impression, plan, and exam edited and reviewed in detail care discussed with RN Subjective Allergies: Coded Allergies: CEFTRIAXONE (Verified Allergy, Intermediate, SOB, HR-140bpm, face swollen , pt became red, 10/24/15) CODEINE (Verified Allergy, Intermediate, SWELLING, 01/03/11) LATEX (Verified Allergy, Intermediate, SWELLING, 01/03/11) PIPERACILLIN (Verified Allergy, Intermediate, Itching, 08/29/15) 08/29/15 tolerates Ceftaroline TAZOBACTAM (Verified Allergy, Intermediate, Itching, 01/29/15) POLYMYXIN B (Verified Allergy, Mild, Rash, 04/08/16) Suspected allergy reported by MD VANCOMYCIN (Verified Allergy, Mild, 07/15/14) ASPARAGINASE (Verified Allergy, Unknown, 01/28/14) CEFUROXIME (Unverified Allergy, Unknown, 04/19/16) IRON (Verified Allergy, Unknown, 01/28/14) LATEX, NATURAL RUBBER (Unverified Allergy, Unknown, 06/18/16) Subjective care noted and reviewed with nursing underwent tap t/f to tele for tachycardia Objective Last 24 Hour Vital Signs Date Time Temp Pulse Resp B/P (MAP) Pulse Ox O2 Delivery O2 Flow Rate FiO2 07/23/17 09:49 98.8 07/23/17 09:19 98.8 07/23/17 08:00 112 07/23/17 08:00 98.8 113 22 119/54 94 Room Air 98.8 07/23/17 07:10 109 18 93 Room Air 21 07/23/17 07:07 109 18 93 Room Air 21 07/23/17 07:02 109 18 Room Air 21 07/23/17 04:00 99.5 110 20 111/62 92 Room Air 99.5 07/23/17 03:48 113 07/23/17 01:20 109 07/23/17 00:00 98.2 116 18 98/56 94 Room Air 98.2 07/22/17 22:50 99.3 07/22/17 22:28 101 20 94 Room Air 21 07/22/17 22:25 101 20 95 Room Air 21 07/22/17 22:25 101 20 Room Air 21 07/22/17 20:02 99.3 100 20 102/59 90 Room Air 99.3 07/22/17 20:01 97.8 07/22/17 15:27 97.8 95 20 112/62 100 97.8 07/22/17 11:51 98.1 92 20 104/53 100 98.1 Intake and Output 07/22/17 07/23/17 19:00 07:00 Intake Total 600 ml 250 ml Balance 600 ml 250 ml Intake Oral 600 ml 250 ml # Voids 2 2 # Bowel Movements 1 1 Objective WDWN NAD reduced breath sounds bilaterally with some improvement [id number] tachy without MRG NABS nontender no HSM no CCE paraplegic Current Medications Medications (Trade) Dose Ordered Sig/Pineda Route PRN Reason Start Time Stop Time Status Last Admin Dose Admin Acetaminophen (Tylenol) 650 mg Q6H PRN ORAL Mild Pain/Temp > 100.5 07/14/17 23:00 08/13/17 22:59 Albuterol Sulfate (Proventil MDI) 2 puff Q4H PRN INH Shortness of Breath 07/14/17 23:00 08/13/17 22:59 07/23/17 07:07 Chlorhexidine Gluconate (Nereida-Hex 2%) 1 applic DAILY@2000 TOPIC 07/16/17 20:00 08/15/17 19:59 07/22/17 20:01 Cyclobenzaprine HCl (Flexeril) 10 mg THREE TIMES A DAY ORAL 07/14/17 22:45 08/13/17 22:44 Cyclobenzaprine HCl (Flexeril) 10 mg THREE TIMES A DAY PRN ORAL Muscle Spasm 07/14/17 23:00 08/13/17 22:59 Daptomycin 600 mg/ Sodium Chloride 110 ml @ 220 mls/hr Q24H IV 07/21/17 11:30 07/28/17 11:29 07/22/17 13:27 Escitalopram Oxalate (Lexapro) 10 mg DAILY ORAL 07/15/17 09:00 08/14/17 08:59 Fluconazole/ Sodium Chloride 200 ml @ 100 mls/hr Q24H IV 4/11/18 18:00 07/27/17 17:59 07/22/17 16:58 Heparin Sodium (Porcine) (Heparin 5000 units/ml) 5,000 units EVERY 12 HOURS SUBQ 07/15/17 21:00 08/14/17 20:59 07/22/17 20:05 Hydromorphone HCl (Dilaudid) 2 mg Q3H PRN IVP Severe Pain (Pain Scale 7-10) 07/22/17 02:45 07/29/17 02:44 07/23/17 09:19 Levofloxacin (Levaquin) 500 mg DAILY ORAL 07/18/17 09:00 07/25/17 08:59 07/23/17 09:24 Metronidazole (Flagyl) 500 mg Q8HR ORAL 07/20/17 22:00 07/27/17 21:59 07/23/17 06:00 Minocycline HCl (Minocin) 200 mg Q12HR ORAL 07/22/17 21:00 07/29/17 20:59 07/23/17 09:24 Ondansetron HCl (Zofran) 4 mg Q4H PRN IVP Nausea & Vomiting 07/17/17 09:30 08/16/17 09:29 07/22/17 22:58 Pantoprazole (Protonix) 40 mg DAILY@0600 ORAL 07/15/17 06:00 08/14/17 05:59 07/23/17 06:00 LUANN MICHEL Jul 23, 2017 11:01
[2017-07-23 12:00] VITALS: BP 111/60
--- NOTE | 2017-07-23 12:15 | General Progress Note ---
Assessment/Plan Problem List: (1) Chronic osteomyelitis of hip ICD Codes: M86.68 - Other chronic osteomyelitis, other site SNOMED: 862831361 (2) Pressure ulcer ICD Codes: L89.90 - Decubitus ulcer SNOMED: 292749313 (3) Abscess ICD Codes: L02.91 - Abscess SNOMED: 471197553 Status: stable Assessment/Plan abx per iD wound care plastics eval noted- no surgical intervention recommended- wounds are clear per plastics and can be treated at the wound care center ivf as neded monitor hr antiemetics and pain rx tap effusion prn check labs Subjective ROS Limited/Unobtainable: No Constitutional: Reports: malaise, weakness HEENT: Reports: no symptoms Cardiovascular: Reports: palpitations Respiratory: Reports: no symptoms Gastrointestinal/Abdominal: Reports: nausea Genitourinary: Reports: no symptoms 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: Reports: pre-existing deficit Endocrine: Reports: no symptoms Hematologic/Lymphatic: Reports: no symptoms Allergies: Coded Allergies: CEFTRIAXONE (Verified Allergy, Intermediate, SOB, HR-140bpm, face swollen , pt became red, 10/24/15) CODEINE (Verified Allergy, Intermediate, SWELLING, 01/03/11) LATEX (Verified Allergy, Intermediate, SWELLING, 01/03/11) PIPERACILLIN (Verified Allergy, Intermediate, Itching, 08/29/15) 08/29/15 tolerates Ceftaroline TAZOBACTAM (Verified Allergy, Intermediate, Itching, 01/29/15) POLYMYXIN B (Verified Allergy, Mild, Rash, 04/08/16) Suspected allergy reported by VANCOMYCIN (Verified Allergy, Mild, 07/15/14) ASPARAGINASE (Verified Allergy, Unknown, 01/28/14) CEFUROXIME (Unverified Allergy, Unknown, 04/19/16) IRON (Verified Allergy, Unknown, 01/28/14) LATEX, NATURAL RUBBER (Unverified Allergy, Unknown, 06/18/16) All Systems: reviewed and negative except above Subjective transferred for tachycardia and low bp. currently c/o pain. no fever or chills. bolused ivf x 2. still with tachycardia. no distress. Objective Last 24 Hour Vital Signs Date Time Temp Pulse Resp B/P (MAP) Pulse Ox O2 Delivery O2 Flow Rate FiO2 07/23/17 09:49 98.8 07/23/17 09:19 98.8 07/23/17 08:00 112 07/23/17 08:00 98.8 113 22 119/54 94 Room Air 98.8 07/23/17 07:10 109 18 93 Room Air 21 07/23/17 07:07 109 18 93 Room Air 21 07/23/17 07:02 109 18 Room Air 21 07/23/17 04:00 99.5 110 20 111/62 92 Room Air 99.5 07/23/17 03:48 113 07/23/17 01:20 109 07/23/17 00:00 98.2 116 18 98/56 94 Room Air 98.2 07/22/17 22:50 99.3 07/22/17 22:28 101 20 94 Room Air 21 07/22/17 22:25 101 20 95 Room Air 21 07/22/17 22:25 101 20 Room Air 21 07/22/17 20:02 99.3 100 20 102/59 90 Room Air 99.3 07/22/17 20:01 97.8 07/22/17 15:27 97.8 95 20 112/62 100 97.8 Intake and Output 07/22/17 07/23/17 19:00 07:00 Intake Total 600 ml 250 ml Balance 600 ml 250 ml Intake Oral 600 ml 250 ml # Voids 2 2 # Bowel Movements 1 1 Height (Feet): 5 Height (Inches): 5.00 Weight (Pounds): 200 Objective General Appearance: WD/WN Neck: supple Cardiovascular: normal rate Respiratory/Chest: chest wall non-tender, lungs clear Abdomen: normal bowel sounds, non tender, soft, no organomegaly Edema: no edema noted Arm (L), no edema noted Arm (R), no edema noted Leg (L), no edema noted Leg (R), no edema noted Pedal (L), no edema noted Pedal (R), no edema noted Generalized BONG BRUNNER Jul 23, 2017 12:15
[2017-07-23] MEDS: NS IV SCH (12:23)
[2017-07-23] MEDS: DAPTOMYCIN IV SCH (12:23)
--- NOTE | 2017-07-23 13:36 | General Progress Note ---
Assessment/Plan Assessment/Plan Assessment - Anemia - prior negative EGD and Colonoscopy - malnutrition, low albumin - Spine osteo - paraspinous abscess - (R) hydro - abnormal LFT - ? passed a stone - resolved - Hepatosplenomegally, ? early portal HTN - (+) GB stones/sludge - Chronic wounds - leukocytosis Recommendations - Push po / protein supplements - follow labs - wound care - ID f/u - monitor intake - Ensure TID PO Subjective ROS Limited/Unobtainable: No Allergies: Coded Allergies: CEFTRIAXONE (Verified Allergy, Intermediate, SOB, HR-140bpm, face swollen , pt became red, 10/24/15) CODEINE (Verified Allergy, Intermediate, SWELLING, 01/03/11) LATEX (Verified Allergy, Intermediate, SWELLING, 01/03/11) PIPERACILLIN (Verified Allergy, Intermediate, Itching, 08/29/15) 08/29/15 tolerates Ceftaroline TAZOBACTAM (Verified Allergy, Intermediate, Itching, 01/29/15) POLYMYXIN B (Verified Allergy, Mild, Rash, 04/08/16) Suspected allergy reported by VANCOMYCIN (Verified Allergy, Mild, 07/15/14) ASPARAGINASE (Verified Allergy, Unknown, 01/28/14) CEFUROXIME (Unverified Allergy, Unknown, 04/19/16) IRON (Verified Allergy, Unknown, 01/28/14) LATEX, NATURAL RUBBER (Unverified Allergy, Unknown, 06/18/16) Objective Last 24 Hour Vital Signs Date Time Temp Pulse Resp B/P (MAP) Pulse Ox O2 Delivery O2 Flow Rate FiO2 07/23/17 12:23 98.8 07/23/17 12:00 116 07/23/17 09:49 98.8 07/23/17 09:19 98.8 07/23/17 08:00 112 07/23/17 08:00 98.8 113 22 119/54 94 Room Air 98.8 07/23/17 07:10 109 18 93 Room Air 21 07/23/17 07:07 109 18 93 Room Air 21 07/23/17 07:02 109 18 Room Air 21 07/23/17 04:00 99.5 110 20 111/62 92 Room Air 99.5 07/23/17 03:48 113 07/23/17 01:20 109 07/23/17 00:00 98.2 116 18 98/56 94 Room Air 98.2 07/22/17 22:50 99.3 07/22/17 22:28 101 20 94 Room Air 21 07/22/17 22:25 101 20 95 Room Air 21 07/22/17 22:25 101 20 Room Air 21 07/22/17 20:02 99.3 100 20 102/59 90 Room Air 99.3 07/22/17 20:01 97.8 07/22/17 15:27 97.8 95 20 112/62 100 97.8 Intake and Output 07/22/17 07/23/17 19:00 07:00 Intake Total 600 ml 250 ml Balance 600 ml 250 ml Intake Oral 600 ml 250 ml # Voids 2 2 # Bowel Movements 1 1 Height (Feet): 5 Height (Inches): 5.00 Weight (Pounds): 200 General Appearance: no apparent distress EENT: normal ENT inspection Neck: supple Cardiovascular: normal rate Respiratory/Chest: decreased breath sounds Abdomen: normal bowel sounds, non tender, soft Extremities: non-tender ARCHIE OSRIANO Jul 23, 2017 13:36
[2017-07-23 14:45] LABS: BASOPHILS % (AUTO) 0.5 % (0.0-2.0); EOSINOPHILS % (AUTO) 2.8 % (0.0-3.0); HEMATOCRIT 27.1 % (37.0-47.0); HEMOGLOBIN 8.7 G/DL (12.0-16.0); LYMPHOCYTES % (AUTO) 21.6 % (20.0-45.0); MEAN CORPUSCULAR VOLUME 82 FL (80-99); MONOCYTES % (AUTO) 7.2 % (1.0-10.0); NEUTROPHILS % (AUTO) 67.9 % (45.0-75.0); PLATELET COUNT 424 K/UL (150-450); RED BLOOD COUNT 3.29 M/UL (4.20-5.40); RED CELL DISTRIBUTION WIDTH 16.9 % (11.6-14.8); WHITE BLOOD COUNT 8.2 K/UL (4.8-10.8)
[2017-07-23 14:59] LABS: ALANINE AMINOTRANSFERASE < 6 U/L (12-78); ALBUMIN 1.3 G/DL (3.4-5.0); ALBUMIN/GLOBULIN RATIO 0.2 (1.0-2.7); ALKALINE PHOSPHATASE 88 U/L (46-116); ANION GAP 6 mmol/L (5-15); ASPARTATE AMINO TRANSFERASE 12 U/L (15-37); BILIRUBIN,TOTAL 0.3 MG/DL (0.2-1.0); BLOOD UREA NITROGEN 9 mg/dL (7-18); CARBON DIOXIDE 31 MMOL/L (21-32); CHLORIDE 101 MMOL/L (98-107); CREATININE 0.8 MG/DL (0.55-1.30); POTASSIUM 4.1 MMOL/L (3.5-5.1); SODIUM 138 MMOL/L (136-145)
[2017-07-23 16:00] VITALS: BP 97/55
[2017-07-23] MEDS ORDERED: Cyclobenzaprine 10mg Tab ORAL PRN (18:00)
[2017-07-23] MEDS: Dyna-Hex 2% Top Sol 2oz TOPIC SCH (19:56)
[2017-07-23 20:00] VITALS: BP 105/56
[2017-07-24] VITALS: BP 104/59
[2017-07-24 04:00] VITALS: BP 110/49
[2017-07-24] MEDS: metroNIDAZOLE 500mg tab ORAL SCH ×3 (06:00→22:33)
[2017-07-24 06:01] LABS: BASOPHILS % (AUTO) 0.6 % (0.0-2.0); EOSINOPHILS % (AUTO) 3.9 % (0.0-3.0); HEMATOCRIT 26.1 % (37.0-47.0); HEMOGLOBIN 8.4 G/DL (12.0-16.0); LYMPHOCYTES % (AUTO) 21.4 % (20.0-45.0); MEAN CORPUSCULAR VOLUME 82 FL (80-99); MONOCYTES % (AUTO) 8.8 % (1.0-10.0); NEUTROPHILS % (AUTO) 65.3 % (45.0-75.0); PLATELET COUNT 428 K/UL (150-450); RED BLOOD COUNT 3.19 M/UL (4.20-5.40); RED CELL DISTRIBUTION WIDTH 17.1 % (11.6-14.8); WHITE BLOOD COUNT 8.5 K/UL (4.8-10.8)
[2017-07-24 06:31] LABS: ALANINE AMINOTRANSFERASE < 6 U/L (12-78); ALBUMIN 1.3 G/DL (3.4-5.0); ALBUMIN/GLOBULIN RATIO 0.2 (1.0-2.7); ALKALINE PHOSPHATASE 83 U/L (46-116); ANION GAP 5 mmol/L (5-15); ASPARTATE AMINO TRANSFERASE 13 U/L (15-37); BILIRUBIN,TOTAL 0.3 MG/DL (0.2-1.0); BLOOD UREA NITROGEN 9 mg/dL (7-18); CALCIUM 8.2 MG/DL (8.5-10.1); CARBON DIOXIDE 31 MMOL/L (21-32); CHLORIDE 101 MMOL/L (98-107); CREATININE 0.8 MG/DL (0.55-1.30); POTASSIUM 4.2 MMOL/L (3.5-5.1); SODIUM 137 MMOL/L (136-145)
--- NOTE | 2017-07-24 06:43 | Pulmonology Progress Note ---
Assessment/Plan Assessment/Plan pleural effusions pulmonary infiltrates multiple abceesses paraplegia paraspinous abcess s/p tap sinus tachy PLAN care noted IV antibiotics noted follow up fluid cultures ID noted and reviewed- need disposition for outpatient antibiotics if possible wound care ongoing tele monitoring until heart rate improved monitor clinically and provide benzo as needed monitor oxygen needs; currently stable impression, plan, and exam edited and reviewed in detail care discussed with RN Subjective Allergies: Coded Allergies: CEFTRIAXONE (Verified Allergy, Intermediate, SOB, HR-140bpm, face swollen , pt became red, 10/24/15) CODEINE (Verified Allergy, Intermediate, SWELLING, 01/03/11) LATEX (Verified Allergy, Intermediate, SWELLING, 01/03/11) PIPERACILLIN (Verified Allergy, Intermediate, Itching, 08/29/15) 08/29/15 tolerates Ceftaroline TAZOBACTAM (Verified Allergy, Intermediate, Itching, 01/29/15) POLYMYXIN B (Verified Allergy, Mild, Rash, 04/08/16) Suspected allergy reported by MD VANCOMYCIN (Verified Allergy, Mild, 07/15/14) ASPARAGINASE (Verified Allergy, Unknown, 01/28/14) CEFUROXIME (Unverified Allergy, Unknown, 04/19/16) IRON (Verified Allergy, Unknown, 01/28/14) LATEX, NATURAL RUBBER (Unverified Allergy, Unknown, 06/18/16) Subjective care noted and reviewed with nursing persistent tachycardia Objective Last 24 Hour Vital Signs Date Time Temp Pulse Resp B/P (MAP) Pulse Ox O2 Delivery O2 Flow Rate FiO2 07/24/17 04:00 109 07/24/17 04:00 98.4 117 16 110/49 92 98.4 07/24/17 00:00 116 07/24/17 00:00 99.3 114 20 104/59 96 99.3 07/23/17 20:00 98.8 110 20 105/56 93 98.8 07/23/17 20:00 121 07/23/17 19:05 104 20 95 Room Air 21 07/23/17 19:04 104 20 Room Air 21 07/23/17 16:56 98.8 07/23/17 16:26 98.8 07/23/17 16:00 104 07/23/17 16:00 99.2 110 20 97/55 95 Room Air 99.2 07/23/17 12:23 98.8 07/23/17 12:00 116 07/23/17 12:00 99.2 114 22 111/60 94 Room Air 99.2 07/23/17 09:19 98.8 07/23/17 08:00 112 07/23/17 08:00 98.8 113 22 119/54 94 Room Air 98.8 07/23/17 07:10 109 18 93 Room Air 21 07/23/17 07:07 109 18 93 Room Air 21 07/23/17 07:02 109 18 Room Air 21 Intake and Output 07/23/17 07/24/17 19:00 07:00 Intake Total 226 ml 200 ml Balance 226 ml 200 ml Intake Oral 116 ml IV Total 110 ml 200 ml # Bowel Movements 1 Objective WDWN NAD reduced breath sounds bilaterally with some improvement [id number] tachy without MRG NABS nontender no HSM no CCE paraplegic Laboratory Tests 07/23/17 14:20: White Blood Count 8.2, Red Blood Count 3.29L, Hemoglobin 8.7L, Hematocrit 27.1L , Mean Corpuscular Volume 82, Mean Corpuscular Hemoglobin 26.3L, Mean Corpuscular Hemoglobin Concent 32.1, Red Cell Distribution Width 16.9H, Platelet Count 424, Mean Platelet Volume 6.5, Neutrophils (%) (Auto) 67.9, Lymphocytes (%) (Auto) 21.6, Monocytes (%) (Auto) 7.2, Eosinophils (%) (Auto) 2.8, Basophils (%) (Auto) 0.5, Sodium Level 138, Potassium Level 4.1, Chloride Level 101, Carbon Dioxide Level 31, Anion Gap 6, Blood Urea Nitrogen 9, Creatinine 0.8, Estimat Glomerular Filtration Rate > 60, Glucose Level 126H, Calcium Level 8.0L, Total Bilirubin 0.3, Aspartate Amino Transf (AST/SGOT) 12L, Alanine Aminotransferase (ALT/SGPT) < 6L, Alkaline Phosphatase 88, Total Protein 6.5, Albumin 1.3L, Globulin 5.2, Albumin/Globulin Ratio 0.2L 07/24/17 05:30: White Blood Count 8.5, Red Blood Count 3.19L, Hemoglobin 8.4L, Hematocrit 26.1L , Mean Corpuscular Volume 82, Mean Corpuscular Hemoglobin 26.5L, Mean Corpuscular Hemoglobin Concent 32.4, Red Cell Distribution Width 17.1H, Platelet Count 428, Mean Platelet Volume 6.7, Neutrophils (%) (Auto) 65.3, Lymphocytes (%) (Auto) 21.4, Monocytes (%) (Auto) 8.8, Eosinophils (%) (Auto) 3.9H, Basophils (%) (Auto) 0.6, Sodium Level 137, Potassium Level 4.2, Chloride Level 101, Carbon Dioxide Level 31, Anion Gap 5, Blood Urea Nitrogen 9, Creatinine 0.8, Estimat Glomerular Filtration Rate > 60, Glucose Level 87, Calcium Level 8.2L, Total Bilirubin 0.3, Aspartate Amino Transf (AST/SGOT) 13L, Alanine Aminotransferase (ALT/SGPT) < 6L, Alkaline Phosphatase 83, Total Protein 6.7, Albumin 1.3L, Globulin 5.4, Albumin/Globulin Ratio 0.2L Current Medications Medications (Trade) Dose Ordered Sig/Pineda Route PRN Reason Start Time Stop Time Status Last Admin Dose Admin Acetaminophen (Tylenol) 650 mg Q6H PRN ORAL Mild Pain/Temp > 100.5 07/23/17 17:00 08/13/17 16:59 Albuterol Sulfate (Proventil MDI) 2 puff Q4H PRN INH Shortness of Breath 07/23/17 17:00 08/13/17 16:59 Chlorhexidine Gluconate (Nereida-Hex 2%) 1 applic DAILY@2000 TOPIC 07/23/17 20:00 08/15/17 19:59 07/23/17 19:56 Cyclobenzaprine HCl (Flexeril) 10 mg THREE TIMES A DAY ORAL 07/23/17 18:00 08/13/17 22:44 Cyclobenzaprine HCl (Flexeril) 10 mg THREE TIMES A DAY PRN ORAL Muscle Spasm 07/23/17 18:00 08/13/17 22:59 Daptomycin 600 mg/ Sodium Chloride 110 ml @ 220 mls/hr Q24H IV 07/24/17 11:30 07/28/17 11:29 Escitalopram Oxalate (Lexapro) 10 mg DAILY ORAL 07/24/17 09:00 08/14/17 08:59 Fluconazole/ Sodium Chloride 200 ml @ 100 mls/hr Q24H IV 4/14/18 18:00 07/27/17 17:59 07/23/17 18:10 Heparin Sodium (Porcine) (Heparin 5000 units/ml) 5,000 units EVERY 12 HOURS SUBQ 07/23/17 21:00 08/14/17 20:59 07/23/17 21:16 Hydromorphone HCl (Dilaudid) 2 mg Q3H PRN IVP Severe Pain (Pain Scale 7-10) 07/23/17 17:45 07/29/17 02:44 07/24/17 05:05 Levofloxacin (Levaquin) 500 mg DAILY ORAL 07/24/17 09:00 07/25/17 08:59 Metronidazole (Flagyl) 500 mg Q8HR ORAL 07/23/17 22:00 07/27/17 21:59 Minocycline HCl (Minocin) 200 mg Q12HR ORAL 07/23/17 21:00 07/29/17 20:59 07/23/17 21:14 Ondansetron HCl (Zofran) 4 mg Q4H PRN IVP Nausea & Vomiting 07/23/17 17:30 08/16/17 09:29 Pantoprazole (Protonix) 40 mg DAILY@0600 ORAL 07/24/17 06:00 08/14/17 05:59 07/24/17 06:34 LUANN MICHEL Jul 24, 2017 06:43
[2017-07-24 08:00] VITALS: BP 98/79
--- NOTE | 2017-07-24 08:17 | General Progress Note ---
Assessment/Plan Assessment/Plan Assessment - Anemia - prior negative EGD and Colonoscopy - malnutrition, low albumin - Spine osteo - paraspinous abscess - (R) hydro - abnormal LFT - ? passed a stone - resolved - Hepatosplenomegally, ? early portal HTN - (+) GB stones/sludge - Chronic wounds - leukocytosis Recommendations - Push po / protein supplements - follow labs - wound care - ID f/u - monitor intake - Ensure TID PO Subjective ROS Limited/Unobtainable: Yes Allergies: Coded Allergies: CEFTRIAXONE (Verified Allergy, Intermediate, SOB, HR-140bpm, face swollen , pt became red, 10/24/15) CODEINE (Verified Allergy, Intermediate, SWELLING, 01/03/11) LATEX (Verified Allergy, Intermediate, SWELLING, 01/03/11) PIPERACILLIN (Verified Allergy, Intermediate, Itching, 08/29/15) 08/29/15 tolerates Ceftaroline TAZOBACTAM (Verified Allergy, Intermediate, Itching, 01/29/15) POLYMYXIN B (Verified Allergy, Mild, Rash, 04/08/16) Suspected allergy reported by VANCOMYCIN (Verified Allergy, Mild, 07/15/14) ASPARAGINASE (Verified Allergy, Unknown, 01/28/14) CEFUROXIME (Unverified Allergy, Unknown, 04/19/16) IRON (Verified Allergy, Unknown, 01/28/14) LATEX, NATURAL RUBBER (Unverified Allergy, Unknown, 06/18/16) Subjective no event Objective Last 24 Hour Vital Signs Date Time Temp Pulse Resp B/P (MAP) Pulse Ox O2 Delivery O2 Flow Rate FiO2 07/24/17 08:11 99 20 Room Air 21 07/24/17 04:00 109 07/24/17 04:00 98.4 117 16 110/49 92 98.4 07/24/17 00:00 116 07/24/17 00:00 99.3 114 20 104/59 96 99.3 07/23/17 20:00 98.8 110 20 105/56 93 98.8 07/23/17 20:00 121 07/23/17 19:05 104 20 95 Room Air 21 07/23/17 19:04 104 20 Room Air 21 07/23/17 16:56 98.8 07/23/17 16:26 98.8 07/23/17 16:00 104 07/23/17 16:00 99.2 110 20 97/55 95 Room Air 99.2 07/23/17 12:23 98.8 07/23/17 12:00 116 07/23/17 12:00 99.2 114 22 111/60 94 Room Air 99.2 07/23/17 09:19 98.8 Intake and Output 07/23/17 07/24/17 19:00 07:00 Intake Total 226 ml 440 ml Balance 226 ml 440 ml Intake Oral 116 ml 240 ml IV Total 110 ml 200 ml # Voids 1 # Bowel Movements 2 Laboratory Tests 07/23/17 14:20: White Blood Count 8.2, Red Blood Count 3.29L, Hemoglobin 8.7L, Hematocrit 27.1L , Mean Corpuscular Volume 82, Mean Corpuscular Hemoglobin 26.3L, Mean Corpuscular Hemoglobin Concent 32.1, Red Cell Distribution Width 16.9H, Platelet Count 424, Mean Platelet Volume 6.5, Neutrophils (%) (Auto) 67.9, Lymphocytes (%) (Auto) 21.6, Monocytes (%) (Auto) 7.2, Eosinophils (%) (Auto) 2.8, Basophils (%) (Auto) 0.5, Sodium Level 138, Potassium Level 4.1, Chloride Level 101, Carbon Dioxide Level 31, Anion Gap 6, Blood Urea Nitrogen 9, Creatinine 0.8, Estimat Glomerular Filtration Rate > 60, Glucose Level 126H, Calcium Level 8.0L, Total Bilirubin 0.3, Aspartate Amino Transf (AST/SGOT) 12L, Alanine Aminotransferase (ALT/SGPT) < 6L, Alkaline Phosphatase 88, Total Protein 6.5, Albumin 1.3L, Globulin 5.2, Albumin/Globulin Ratio 0.2L 07/24/17 05:30: White Blood Count 8.5, Red Blood Count 3.19L, Hemoglobin 8.4L, Hematocrit 26.1L , Mean Corpuscular Volume 82, Mean Corpuscular Hemoglobin 26.5L, Mean Corpuscular Hemoglobin Concent 32.4, Red Cell Distribution Width 17.1H, Platelet Count 428, Mean Platelet Volume 6.7, Neutrophils (%) (Auto) 65.3, Lymphocytes (%) (Auto) 21.4, Monocytes (%) (Auto) 8.8, Eosinophils (%) (Auto) 3.9H, Basophils (%) (Auto) 0.6, Sodium Level 137, Potassium Level 4.2, Chloride Level 101, Carbon Dioxide Level 31, Anion Gap 5, Blood Urea Nitrogen 9, Creatinine 0.8, Estimat Glomerular Filtration Rate > 60, Glucose Level 87, Calcium Level 8.2L, Total Bilirubin 0.3, Aspartate Amino Transf (AST/SGOT) 13L, Alanine Aminotransferase (ALT/SGPT) < 6L, Alkaline Phosphatase 83, Total Protein 6.7, Albumin 1.3L, Globulin 5.4, Albumin/Globulin Ratio 0.2L Height (Feet): 5 Height (Inches): 5.00 Weight (Pounds): 193 General Appearance: no apparent distress EENT: normal ENT inspection Neck: supple Cardiovascular: normal rate Respiratory/Chest: decreased breath sounds Abdomen: normal bowel sounds, non tender, soft, other - post Extremities: non-tender ARCHIE SORIANO Jul 24, 2017 08:17
[2017-07-24] MEDS: Minocycline HCl 50mg cap ORAL SCH ×2 (08:51→20:43)
[2017-07-24] MEDS ORDERED: Levofloxacin 500mg tab ORAL SCH (09:00)
[2017-07-24] MEDS: Cyclobenzaprine 10mg Tab ORAL SCH ×3 (09:00→17:52)
[2017-07-24] MEDS: Heparin 5000 units/ml inj SUBQ SCH ×2 (09:00→20:45)
--- NOTE | 2017-07-24 09:24 | General Progress Note ---
Assessment/Plan Problem List: (1) Chronic osteomyelitis of hip ICD Codes: M86.68 - Other chronic osteomyelitis, other site SNOMED: 327901863 (2) Pressure ulcer ICD Codes: L89.90 - Decubitus ulcer SNOMED: 487716147 (3) Abscess ICD Codes: L02.91 - Abscess SNOMED: 320116261 Status: stable, progressing Assessment/Plan abx per iD wound care plastics eval noted- no surgical intervention recommended- wounds are clear per plastics and can be treated at the wound care center ivf as neded monitor hr antiemetics and pain rx tap effusion prn check labs dc planning ? Subjective ROS Limited/Unobtainable: No Constitutional: Reports: malaise, weakness HEENT: Reports: no symptoms Cardiovascular: Reports: no symptoms Respiratory: Reports: no symptoms Gastrointestinal/Abdominal: Reports: nausea, vomiting Genitourinary: Reports: no symptoms 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: Reports: no symptoms Endocrine: Reports: no symptoms Hematologic/Lymphatic: Reports: no symptoms Allergies: Coded Allergies: CEFTRIAXONE (Verified Allergy, Intermediate, SOB, HR-140bpm, face swollen , pt became red, 10/24/15) CODEINE (Verified Allergy, Intermediate, SWELLING, 01/03/11) LATEX (Verified Allergy, Intermediate, SWELLING, 01/03/11) PIPERACILLIN (Verified Allergy, Intermediate, Itching, 08/29/15) 08/29/15 tolerates Ceftaroline TAZOBACTAM (Verified Allergy, Intermediate, Itching, 01/29/15) POLYMYXIN B (Verified Allergy, Mild, Rash, 04/08/16) Suspected allergy reported by VANCOMYCIN (Verified Allergy, Mild, 07/15/14) ASPARAGINASE (Verified Allergy, Unknown, 01/28/14) CEFUROXIME (Unverified Allergy, Unknown, 04/19/16) IRON (Verified Allergy, Unknown, 01/28/14) LATEX, NATURAL RUBBER (Unverified Allergy, Unknown, 06/18/16) All Systems: reviewed and negative except above Subjective still tachy. concerned about pain control. some intermittent vomiting. +output from colostomy. Objective Last 24 Hour Vital Signs Date Time Temp Pulse Resp B/P (MAP) Pulse Ox O2 Delivery O2 Flow Rate FiO2 07/24/17 08:51 98.4 07/24/17 08:11 99 20 Room Air 21 07/24/17 04:00 109 07/24/17 04:00 98.4 117 16 110/49 92 98.4 07/24/17 00:00 116 07/24/17 00:00 99.3 114 20 104/59 96 99.3 07/23/17 20:00 98.8 110 20 105/56 93 98.8 07/23/17 20:00 121 07/23/17 19:05 104 20 95 Room Air 21 07/23/17 19:04 104 20 Room Air 21 07/23/17 16:56 98.8 07/23/17 16:26 98.8 07/23/17 16:00 104 07/23/17 16:00 99.2 110 20 97/55 95 Room Air 99.2 07/23/17 12:23 98.8 07/23/17 12:00 116 07/23/17 12:00 99.2 114 22 111/60 94 Room Air 99.2 Intake and Output 07/23/17 07/24/17 19:00 07:00 Intake Total 226 ml 440 ml Balance 226 ml 440 ml Intake Oral 116 ml 240 ml IV Total 110 ml 200 ml # Voids 1 # Bowel Movements 2 Laboratory Tests 07/23/17 14:20: White Blood Count 8.2, Red Blood Count 3.29L, Hemoglobin 8.7L, Hematocrit 27.1L , Mean Corpuscular Volume 82, Mean Corpuscular Hemoglobin 26.3L, Mean Corpuscular Hemoglobin Concent 32.1, Red Cell Distribution Width 16.9H, Platelet Count 424, Mean Platelet Volume 6.5, Neutrophils (%) (Auto) 67.9, Lymphocytes (%) (Auto) 21.6, Monocytes (%) (Auto) 7.2, Eosinophils (%) (Auto) 2.8, Basophils (%) (Auto) 0.5, Sodium Level 138, Potassium Level 4.1, Chloride Level 101, Carbon Dioxide Level 31, Anion Gap 6, Blood Urea Nitrogen 9, Creatinine 0.8, Estimat Glomerular Filtration Rate > 60, Glucose Level 126H, Calcium Level 8.0L, Total Bilirubin 0.3, Aspartate Amino Transf (AST/SGOT) 12L, Alanine Aminotransferase (ALT/SGPT) < 6L, Alkaline Phosphatase 88, Total Protein 6.5, Albumin 1.3L, Globulin 5.2, Albumin/Globulin Ratio 0.2L 07/24/17 05:30: White Blood Count 8.5, Red Blood Count 3.19L, Hemoglobin 8.4L, Hematocrit 26.1L , Mean Corpuscular Volume 82, Mean Corpuscular Hemoglobin 26.5L, Mean Corpuscular Hemoglobin Concent 32.4, Red Cell Distribution Width 17.1H, Platelet Count 428, Mean Platelet Volume 6.7, Neutrophils (%) (Auto) 65.3, Lymphocytes (%) (Auto) 21.4, Monocytes (%) (Auto) 8.8, Eosinophils (%) (Auto) 3.9H, Basophils (%) (Auto) 0.6, Sodium Level 137, Potassium Level 4.2, Chloride Level 101, Carbon Dioxide Level 31, Anion Gap 5, Blood Urea Nitrogen 9, Creatinine 0.8, Estimat Glomerular Filtration Rate > 60, Glucose Level 87, Calcium Level 8.2L, Total Bilirubin 0.3, Aspartate Amino Transf (AST/SGOT) 13L, Alanine Aminotransferase (ALT/SGPT) < 6L, Alkaline Phosphatase 83, Total Protein 6.7, Albumin 1.3L, Globulin 5.4, Albumin/Globulin Ratio 0.2L Height (Feet): 5 Height (Inches): 5.00 Weight (Pounds): 193 Objective General Appearance: WD/WN Neck: supple Cardiovascular: normal rate Respiratory/Chest: chest wall non-tender, lungs clear Abdomen: normal bowel sounds, non tender, soft, no organomegaly Edema: no edema noted Arm (L), no edema noted Arm (R), no edema noted Leg (L), no edema noted Leg (R), no edema noted Pedal (L), no edema noted Pedal (R), no edema noted Generalized BONG BRUNNER Jul 24, 2017 09:24
[2017-07-24] MEDS: Albuterol 90mcg Inhaler 8gm INH PRN (10:59)
[2017-07-24] MEDS: DAPTOMYCIN IV SCH (12:09)
[2017-07-24] MEDS: NS IV SCH (12:09)
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
[2017-07-24 16:00] VITALS: BP 103/79
[2017-07-24] MEDS: Dyna-Hex 2% Top Sol 2oz TOPIC SCH (19:53)
[2017-07-24 20:00] VITALS: BP 102/56
[2017-07-24] MEDS ORDERED: NS 275ml ONE ×2 (22:44→22:45)
[2017-07-24] MEDS ORDERED: Tubing IV Secondary IV ONE (22:44)
[2017-07-24] MEDS ORDERED: NS 500ML ONE (22:45)
[2017-07-24 23:52] VITALS: BP 104/63
[2017-07-25 04:00] VITALS: BP 115/59
[2017-07-25] MEDS: metroNIDAZOLE 500mg tab ORAL SCH ×3 (05:35→21:26)
[2017-07-25] MEDS: Albuterol 90mcg Inhaler 8gm INH PRN ×2 (05:37→14:45)
[2017-07-25 08:00] VITALS: BP 115/58
[2017-07-25 08:27] LABS: BASOPHILS % (AUTO) 0.5 % (0.0-2.0); EOSINOPHILS % (AUTO) 2.9 % (0.0-3.0); HEMATOCRIT 26.8 % (37.0-47.0); HEMOGLOBIN 8.7 G/DL (12.0-16.0); LYMPHOCYTES % (AUTO) 16.7 % (20.0-45.0); MEAN CORPUSCULAR VOLUME 82 FL (80-99); MONOCYTES % (AUTO) 6.9 % (1.0-10.0); PLATELET COUNT 427 K/UL (150-450); RED BLOOD COUNT 3.29 M/UL (4.20-5.40); RED CELL DISTRIBUTION WIDTH 17.1 % (11.6-14.8); WHITE BLOOD COUNT 10.3 K/UL (4.8-10.8)
--- NOTE | 2017-07-25 08:40 | General Progress Note ---
Assessment/Plan Problem List: (1) Chronic osteomyelitis of hip ICD Codes: M86.68 - Other chronic osteomyelitis, other site SNOMED: 446784623 (2) Pressure ulcer ICD Codes: L89.90 - Decubitus ulcer SNOMED: 108972379 (3) Abscess ICD Codes: L02.91 - Abscess SNOMED: 098279741 Status: stable Assessment/Plan abx per iD wound care plastics eval noted- no surgical intervention recommended- wounds are clear per plastics and can be treated at the wound care center ivf as needed monitor hr- trending down antiemetics and pain rx tap effusion prn check labs dc planning ? Subjective ROS Limited/Unobtainable: No Constitutional: Reports: malaise, weakness HEENT: Reports: no symptoms Cardiovascular: Reports: no symptoms Respiratory: Reports: no symptoms Gastrointestinal/Abdominal: Reports: nausea, vomiting Genitourinary: Reports: no symptoms 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: Reports: pre-existing deficit Endocrine: Reports: no symptoms Hematologic/Lymphatic: Reports: anemia Allergies: Coded Allergies: CEFTRIAXONE (Verified Allergy, Intermediate, SOB, HR-140bpm, face swollen , pt became red, 10/24/15) CODEINE (Verified Allergy, Intermediate, SWELLING, 01/03/11) LATEX (Verified Allergy, Intermediate, SWELLING, 01/03/11) PIPERACILLIN (Verified Allergy, Intermediate, Itching, 08/29/15) 08/29/15 tolerates Ceftaroline TAZOBACTAM (Verified Allergy, Intermediate, Itching, 01/29/15) POLYMYXIN B (Verified Allergy, Mild, Rash, 04/08/16) Suspected allergy reported by VANCOMYCIN (Verified Allergy, Mild, 07/15/14) ASPARAGINASE (Verified Allergy, Unknown, 01/28/14) CEFUROXIME (Unverified Allergy, Unknown, 04/19/16) IRON (Verified Allergy, Unknown, 01/28/14) LATEX, NATURAL RUBBER (Unverified Allergy, Unknown, 06/18/16) All Systems: reviewed and negative except above Subjective less tachycardic. concerned about pain control. some intermittent vomiting. + output from colostomy. Objective Last 24 Hour Vital Signs Date Time Temp Pulse Resp B/P (MAP) Pulse Ox O2 Delivery O2 Flow Rate FiO2 07/25/17 05:38 107 18 95 Room Air 21 07/25/17 05:37 101 18 94 Room Air 21 07/25/17 04:00 105 07/25/17 04:00 98.0 100 20 115/59 94 Room Air 98.0 07/25/17 00:00 103 07/24/17 23:52 98.8 100 20 104/63 97 Room Air 98.8 07/24/17 20:01 98 20 Room Air 21 07/24/17 20:00 99.5 112 20 102/56 100 Room Air 99.5 07/24/17 20:00 106 07/24/17 16:06 98.4 07/24/17 16:00 97.6 111 17 103/79 100 97.6 07/24/17 16:00 106 07/24/17 15:29 98.4 07/24/17 12:20 98.4 07/24/17 12:00 114 07/24/17 11:00 101 18 94 Room Air 21 07/24/17 10:59 99 18 95 Room Air 21 07/24/17 08:51 98.4 Intake and Output 07/24/17 07/25/17 19:00 07:00 Intake Total 116 ml 556 ml Balance 116 ml 556 ml Intake Oral 116 ml 356 ml IV Total 200 ml # Voids 1 # Bowel Movements 1 Laboratory Tests 07/25/17 08:12: White Blood Count 10.3, Red Blood Count 3.29L, Hemoglobin 8.7L, Hematocrit 26.8L , Mean Corpuscular Volume 82, Mean Corpuscular Hemoglobin 26.3L, Mean Corpuscular Hemoglobin Concent 32.3, Red Cell Distribution Width 17.1H, Platelet Count 427, Mean Platelet Volume 6.8, Neutrophils (%) (Auto) 73.0, Lymphocytes (%) (Auto) 16.7L, Monocytes (%) (Auto) 6.9, Eosinophils (%) (Auto) 2.9, Basophils (%) (Auto) 0.5, Sodium Level [Pending], Potassium Level [Pending] , Chloride Level [Pending], Carbon Dioxide Level [Pending], Blood Urea Nitrogen [Pending], Creatinine [Pending], Estimat Glomerular Filtration Rate [Pending], Glucose Level [Pending], Calcium Level [Pending] Height (Feet): 5 Height (Inches): 5.00 Weight (Pounds): 193 Objective General Appearance: WD/WN Neck: supple Cardiovascular: normal rate Respiratory/Chest: chest wall non-tender, lungs clear Abdomen: normal bowel sounds, non tender, soft, no organomegaly Edema: no edema noted Arm (L), no edema noted Arm (R), no edema noted Leg (L), no edema noted Leg (R), no edema noted Pedal (L), no edema noted Pedal (R), no edema noted Generalized BONG BRUNNER Jul 25, 2017 08:40
[2017-07-25] MEDS: Heparin 5000 units/ml inj SUBQ SCH ×2 (09:00→20:34)
[2017-07-25] MEDS: Cyclobenzaprine 10mg Tab ORAL SCH ×3 (09:00→17:43)
[2017-07-25 09:13] LABS: ANION GAP 4 mmol/L (5-15); BLOOD UREA NITROGEN 7 mg/dL (7-18); CALCIUM 8.1 MG/DL (8.5-10.1); CARBON DIOXIDE 30 MMOL/L (21-32); CHLORIDE 101 MMOL/L (98-107); CREATININE 0.7 MG/DL (0.55-1.30); POTASSIUM 4.3 MMOL/L (3.5-5.1); SODIUM 135 MMOL/L (136-145)
[2017-07-25] MEDS: Minocycline HCl 50mg cap ORAL SCH ×2 (09:24→20:32)
[2017-07-25 09:51] LABS: CREATINE KINASE 14 U/L (26-308)
[2017-07-25 12:00] VITALS: BP 106/63
--- NOTE | 2017-07-25 13:26 | Pulmonology Progress Note ---
Assessment/Plan Assessment/Plan pleural effusions pulmonary infiltrates multiple abceesses paraplegia paraspinous abcess s/p tap sinus tachy, improved PLAN care noted IV antibiotics noted follow up fluid cultures ID noted and reviewed- need disposition for outpatient antibiotics if possible wound care ongoing tele monitoring until heart rate improved monitor clinically and provide benzo as needed monitor oxygen needs; currently stable impression, plan, and exam edited and reviewed in detail care discussed with RN Subjective Allergies: Coded Allergies: CEFTRIAXONE (Verified Allergy, Intermediate, SOB, HR-140bpm, face swollen , pt became red, 10/24/15) CODEINE (Verified Allergy, Intermediate, SWELLING, 01/03/11) LATEX (Verified Allergy, Intermediate, SWELLING, 01/03/11) PIPERACILLIN (Verified Allergy, Intermediate, Itching, 08/29/15) 08/29/15 tolerates Ceftaroline TAZOBACTAM (Verified Allergy, Intermediate, Itching, 01/29/15) POLYMYXIN B (Verified Allergy, Mild, Rash, 04/08/16) Suspected allergy reported by MD VANCOMYCIN (Verified Allergy, Mild, 07/15/14) ASPARAGINASE (Verified Allergy, Unknown, 01/28/14) CEFUROXIME (Unverified Allergy, Unknown, 04/19/16) IRON (Verified Allergy, Unknown, 01/28/14) LATEX, NATURAL RUBBER (Unverified Allergy, Unknown, 06/18/16) Subjective care noted and reviewed with nursing improved heart rate Objective Last 24 Hour Vital Signs Date Time Temp Pulse Resp B/P (MAP) Pulse Ox O2 Delivery O2 Flow Rate FiO2 07/25/17 09:53 94 18 Room Air 21 07/25/17 09:25 98.0 07/25/17 08:00 96.6 107 20 115/58 94 Room Air 96.6 07/25/17 05:38 107 18 95 Room Air 21 07/25/17 05:37 101 18 94 Room Air 21 07/25/17 04:00 105 07/25/17 04:00 98.0 100 20 115/59 94 Room Air 98.0 07/25/17 00:00 103 07/24/17 23:52 98.8 100 20 104/63 97 Room Air 98.8 07/24/17 20:01 98 20 Room Air 21 07/24/17 20:00 99.5 112 20 102/56 100 Room Air 99.5 07/24/17 20:00 106 07/24/17 16:06 98.4 07/24/17 16:00 97.6 111 17 103/79 100 97.6 07/24/17 16:00 106 07/24/17 15:29 98.4 Intake and Output 07/24/17 07/25/17 19:00 07:00 Intake Total 116 ml 556 ml Balance 116 ml 556 ml Intake Oral 116 ml 356 ml IV Total 200 ml # Voids 1 # Bowel Movements 1 Objective WDWN NAD reduced breath sounds bilaterally with some improvement [id number] without MRG NABS nontender no HSM no CCE paraplegic Laboratory Tests 07/25/17 08:12: White Blood Count 10.3, Red Blood Count 3.29L, Hemoglobin 8.7L, Hematocrit 26.8L , Mean Corpuscular Volume 82, Mean Corpuscular Hemoglobin 26.3L, Mean Corpuscular Hemoglobin Concent 32.3, Red Cell Distribution Width 17.1H, Platelet Count 427, Mean Platelet Volume 6.8, Neutrophils (%) (Auto) 73.0, Lymphocytes (%) (Auto) 16.7L, Monocytes (%) (Auto) 6.9, Eosinophils (%) (Auto) 2.9, Basophils (%) (Auto) 0.5, Erythrocyte Sedimentation Rate 121H, Sodium Level 135L, Potassium Level 4.3, Chloride Level 101, Carbon Dioxide Level 30, Anion Gap 4L, Blood Urea Nitrogen 7, Creatinine 0.7, Estimat Glomerular Filtration Rate > 60, Glucose Level 86, Calcium Level 8.1L, Total Creatine Kinase 14L Current Medications Medications (Trade) Dose Ordered Sig/Pineda Route PRN Reason Start Time Stop Time Status Last Admin Dose Admin Acetaminophen (Tylenol) 650 mg Q6H PRN ORAL Mild Pain/Temp > 100.5 07/23/17 17:00 08/13/17 16:59 Albuterol Sulfate (Proventil MDI) 2 puff Q4H PRN INH Shortness of Breath 07/23/17 17:00 08/13/17 16:59 07/25/17 05:37 Chlorhexidine Gluconate (Nereida-Hex 2%) 1 applic DAILY@1999 TOPIC 07/23/17 20:00 08/15/17 19:59 07/24/17 19:53 Cyclobenzaprine HCl (Flexeril) 10 mg THREE TIMES A DAY ORAL 07/23/17 18:00 08/13/17 22:44 Cyclobenzaprine HCl (Flexeril) 10 mg THREE TIMES A DAY PRN ORAL Muscle Spasm 07/23/17 18:00 08/13/17 22:59 Daptomycin 600 mg/ Sodium Chloride 110 ml @ 220 mls/hr Q24H IV 07/24/17 11:30 07/28/17 11:29 07/24/17 12:09 Escitalopram Oxalate (Lexapro) 10 mg DAILY ORAL 07/24/17 09:00 08/14/17 08:59 Fluconazole/ Sodium Chloride 200 ml @ 100 mls/hr Q24H IV 07/23/17 18:00 07/27/17 17:59 07/24/17 18:26 Heparin Sodium (Porcine) (Heparin 5000 units/ml) 5,000 units EVERY 12 HOURS SUBQ 07/23/17 21:00 08/14/17 20:59 07/24/17 20:45 Hydromorphone HCl (Dilaudid) 2 mg Q3H PRN IVP Severe Pain (Pain Scale 7-10) 07/23/17 17:45 07/29/17 02:44 07/25/17 09:25 Metronidazole (Flagyl) 500 mg Q8HR ORAL 07/23/17 22:00 07/27/17 21:59 07/25/17 05:35 Minocycline HCl (Minocin) 200 mg Q12HR ORAL 07/23/17 21:00 07/29/17 20:59 07/25/17 09:24 Ondansetron HCl (Zofran) 4 mg Q4H PRN IVP Nausea & Vomiting 07/23/17 17:30 08/16/17 09:29 07/25/17 05:45 Pantoprazole (Protonix) 40 mg DAILY@0600 ORAL 07/24/17 06:00 08/14/17 05:59 07/25/17 05:35 LUANN MICHEL Jul 25, 2017 13:26
[2017-07-25] MEDS: DAPTOMYCIN IV SCH (14:28)
[2017-07-25] MEDS: NS IV SCH (14:28)
[2017-07-25 16:00] VITALS: BP 101/58
[2017-07-25 20:00] VITALS: BP 106/56
[2017-07-25] MEDS: Dyna-Hex 2% Top Sol 2oz TOPIC SCH (20:12)
--- NOTE | 2017-07-25 22:15 | General Progress Note ---
Assessment/Plan Assessment/Plan Assessment - Anemia - prior negative EGD and Colonoscopy - malnutrition, low albumin - Spine osteo - paraspinous abscess - (R) hydro - abnormal LFT - ? passed a stone - resolved - Hepatosplenomegally, ? early portal HTN - (+) GB stones/sludge - Chronic wounds - leukocytosis Recommendations - Push po / protein supplements - follow labs - wound care - Remeron trial - ID f/u - monitor intake - Ensure TID PO Subjective Allergies: Coded Allergies: CEFTRIAXONE (Verified Allergy, Intermediate, SOB, HR-140bpm, face swollen , pt became red, 10/24/15) CODEINE (Verified Allergy, Intermediate, SWELLING, 01/03/11) LATEX (Verified Allergy, Intermediate, SWELLING, 01/03/11) PIPERACILLIN (Verified Allergy, Intermediate, Itching, 08/29/15) 08/29/15 tolerates Ceftaroline TAZOBACTAM (Verified Allergy, Intermediate, Itching, 01/29/15) POLYMYXIN B (Verified Allergy, Mild, Rash, 04/08/16) Suspected allergy reported by VANCOMYCIN (Verified Allergy, Mild, 07/15/14) ASPARAGINASE (Verified Allergy, Unknown, 01/28/14) CEFUROXIME (Unverified Allergy, Unknown, 04/19/16) IRON (Verified Allergy, Unknown, 01/28/14) LATEX, NATURAL RUBBER (Unverified Allergy, Unknown, 06/18/16) Subjective Feels OK no new complaints less appetite this weekend Objective Last 24 Hour Vital Signs Date Time Temp Pulse Resp B/P (MAP) Pulse Ox O2 Delivery O2 Flow Rate FiO2 07/25/17 20:00 98.6 119 20 106/56 95 Room Air 98.6 07/25/17 20:00 108 07/25/17 17:48 98.4 07/25/17 16:00 101 07/25/17 16:00 98.4 113 18 101/58 95 Room Air 98.4 07/25/17 14:49 98 20 95 Room Air 21 07/25/17 14:45 98 20 95 Room Air 21 07/25/17 12:00 106 07/25/17 12:00 99.9 107 16 106/63 95 Room Air 99.9 07/25/17 09:55 98.0 07/25/17 09:53 94 18 Room Air 21 07/25/17 09:25 98.0 07/25/17 08:00 105 07/25/17 08:00 96.6 107 20 115/58 94 Room Air 96.6 07/25/17 05:38 107 18 95 Room Air 21 07/25/17 05:37 101 18 94 Room Air 21 07/25/17 04:00 105 07/25/17 04:00 98.0 100 20 115/59 94 Room Air 98.0 07/25/17 00:00 103 07/24/17 23:52 98.8 100 20 104/63 97 Room Air 98.8 Intake and Output 07/24/17 07/25/17 19:00 07:00 Intake Total 116 ml 556 ml Balance 116 ml 556 ml Intake Oral 116 ml 356 ml IV Total 200 ml # Voids 1 # Bowel Movements 1 Laboratory Tests 07/25/17 08:12: White Blood Count 10.3, Red Blood Count 3.29L, Hemoglobin 8.7L, Hematocrit 26.8L , Mean Corpuscular Volume 82, Mean Corpuscular Hemoglobin 26.3L, Mean Corpuscular Hemoglobin Concent 32.3, Red Cell Distribution Width 17.1H, Platelet Count 427, Mean Platelet Volume 6.8, Neutrophils (%) (Auto) 73.0, Lymphocytes (%) (Auto) 16.7L, Monocytes (%) (Auto) 6.9, Eosinophils (%) (Auto) 2.9, Basophils (%) (Auto) 0.5, Erythrocyte Sedimentation Rate 121H, Sodium Level 135L, Potassium Level 4.3, Chloride Level 101, Carbon Dioxide Level 30, Anion Gap 4L, Blood Urea Nitrogen 7, Creatinine 0.7, Estimat Glomerular Filtration Rate > 60, Glucose Level 86, Calcium Level 8.1L, Total Creatine Kinase 14L Height (Feet): 5 Height (Inches): 5.00 Weight (Pounds): 192 Objective WDWN NCAT supple CTA RRR abd soft, (+) LLQ ostomy (+) paraplegia wounds noted PITER DEAN Jul 25, 2017 22:15
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
[2017-07-26] VITALS (7 sets, daily range): BP systolic 94–119; BP diastolic 57–71
[2017-07-26] MEDS: metroNIDAZOLE 500mg tab ORAL SCH ×4 (06:00→21:21)
[2017-07-26] MEDS ORDERED: metroNIDAZOLE 500mg tab ORAL SCH (06:00)
[2017-07-26 08:13] LABS: BASOPHILS % (AUTO) 0.4 % (0.0-2.0); EOSINOPHILS % (AUTO) 3.3 % (0.0-3.0); HEMATOCRIT 25.7 % (37.0-47.0); HEMOGLOBIN 8.4 G/DL (12.0-16.0); LYMPHOCYTES % (AUTO) 19.4 % (20.0-45.0); MEAN CORPUSCULAR VOLUME 82 FL (80-99); MONOCYTES % (AUTO) 6.1 % (1.0-10.0); NEUTROPHILS % (AUTO) 70.8 % (45.0-75.0); PLATELET COUNT 384 K/UL (150-450); RED BLOOD COUNT 3.12 M/UL (4.20-5.40); RED CELL DISTRIBUTION WIDTH 17.3 % (11.6-14.8); WHITE BLOOD COUNT 11.1 K/UL (4.8-10.8)
[2017-07-26 08:32] LABS: ALANINE AMINOTRANSFERASE < 6 U/L (12-78); ALBUMIN 1.2 G/DL (3.4-5.0); ALBUMIN/GLOBULIN RATIO 0.2 (1.0-2.7); ALKALINE PHOSPHATASE 106 U/L (46-116); ANION GAP 2 mmol/L (5-15); ASPARTATE AMINO TRANSFERASE 12 U/L (15-37); BILIRUBIN,TOTAL 0.3 MG/DL (0.2-1.0); BLOOD UREA NITROGEN 8 mg/dL (7-18); CALCIUM 8.1 MG/DL (8.5-10.1); CARBON DIOXIDE 30 MMOL/L (21-32); CHLORIDE 100 MMOL/L (98-107); CREATININE 0.8 MG/DL (0.55-1.30); POTASSIUM 4.3 MMOL/L (3.5-5.1); SODIUM 132 MMOL/L (136-145)
[2017-07-26] MEDS ORDERED: NS 275ml ONE (08:54)
[2017-07-26] MEDS: Heparin 5000 units/ml inj SUBQ SCH ×2 (09:00→21:36)
[2017-07-26] MEDS ORDERED: Cyclobenzaprine 10mg Tab ORAL PRN (09:00)
[2017-07-26] MEDS: Cyclobenzaprine 10mg Tab ORAL SCH ×3 (09:00→17:40)
[2017-07-26] MEDS ORDERED: Levofloxacin 500mg tab ORAL SCH (09:00)
[2017-07-26] MEDS: Minocycline HCl 50mg cap ORAL SCH ×2 (10:03→21:20)
[2017-07-26] MEDS: Levofloxacin 500mg tab ORAL SCH (10:03)
[2017-07-26] MEDS ORDERED: DiphenhydrAMINE 50mg/ml Inj IVP PRN (10:30)
[2017-07-26] MEDS: DAPTOMYCIN IV SCH (12:35)
[2017-07-26] MEDS: NS IV SCH (12:35)
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
[2017-07-26] MEDS: Albuterol 90mcg Inhaler 8gm INH PRN (16:00)
--- NOTE | 2017-07-26 16:23 | General Progress Note ---
Assessment/Plan Problem List: (1) Chronic osteomyelitis of hip ICD Codes: M86.68 - Other chronic osteomyelitis, other site SNOMED: 586145778 (2) Pressure ulcer ICD Codes: L89.90 - Decubitus ulcer SNOMED: 385100791 (3) Abscess ICD Codes: L02.91 - Abscess SNOMED: 211469508 Status: stable Assessment/Plan abx per iD wound care plastics eval noted- no surgical intervention recommended- wounds are clear per plastics and can be treated at the wound care center ivf as needed monitor hr- trending down antiemetics and pain rx tap effusion prn check labs review ct will d/w consultants Subjective ROS Limited/Unobtainable: No Constitutional: Reports: malaise, weakness HEENT: Reports: no symptoms Cardiovascular: Reports: no symptoms Respiratory: Reports: no symptoms Gastrointestinal/Abdominal: Reports: nausea, vomiting Genitourinary: Reports: no symptoms 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: Reports: pre-existing deficit Endocrine: Reports: no symptoms Hematologic/Lymphatic: Reports: no symptoms Allergies: Coded Allergies: CEFTRIAXONE (Verified Allergy, Intermediate, SOB, HR-140bpm, face swollen , pt became red, 10/24/15) CODEINE (Verified Allergy, Intermediate, SWELLING, 01/03/11) LATEX (Verified Allergy, Intermediate, SWELLING, 01/03/11) PIPERACILLIN (Verified Allergy, Intermediate, Itching, 08/29/15) 08/29/15 tolerates Ceftaroline TAZOBACTAM (Verified Allergy, Intermediate, Itching, 01/29/15) POLYMYXIN B (Verified Allergy, Mild, Rash, 04/08/16) Suspected allergy reported by VANCOMYCIN (Verified Allergy, Mild, 07/15/14) ASPARAGINASE (Verified Allergy, Unknown, 01/28/14) CEFUROXIME (Unverified Allergy, Unknown, 04/19/16) IRON (Verified Allergy, Unknown, 01/28/14) LATEX, NATURAL RUBBER (Unverified Allergy, Unknown, 06/18/16) All Systems: reviewed and negative except above Subjective less tachycardic. concerned about pain control. some intermittent vomiting. + output from colostomy. ct noted Objective Last 24 Hour Vital Signs Date Time Temp Pulse Resp B/P (MAP) Pulse Ox O2 Delivery O2 Flow Rate FiO2 07/26/17 16:03 102 16 100 Room Air 21 07/26/17 16:00 102 16 99 Room Air 21 07/26/17 12:00 98.2 102 20 112/64 100 98.2 07/26/17 08:00 98.6 100 20 119/71 100 98.6 07/26/17 04:00 97.7 81 20 100/57 93 Room Air 97.7 07/26/17 00:39 98.2 98 20 107/58 92 Room Air 98.2 100 07/25/17 20:00 98.6 119 20 106/56 95 Room Air 98.6 07/25/17 20:00 108 07/25/17 17:48 98.4 Intake and Output 07/25/17 07/26/17 19:00 07:00 Intake Total 250 ml Balance 250 ml Intake Oral 250 ml # Voids 1 1 # Bowel Movements 1 Laboratory Tests 07/26/17 06:10: White Blood Count 11.1H, Red Blood Count 3.12L, Hemoglobin 8.4L, Hematocrit 25.7L, Mean Corpuscular Volume 82, Mean Corpuscular Hemoglobin 26.9L, Mean Corpuscular Hemoglobin Concent 32.7, Red Cell Distribution Width 17.3H, Platelet Count 384, Mean Platelet Volume 6.6, Neutrophils (%) (Auto) 70.8, Lymphocytes (%) (Auto) 19.4L, Monocytes (%) (Auto) 6.1, Eosinophils (%) (Auto) 3.3H, Basophils (%) (Auto) 0.4, Sodium Level 132L, Potassium Level 4.3, Chloride Level 100, Carbon Dioxide Level 30, Anion Gap 2L, Blood Urea Nitrogen 8 , Creatinine 0.8, Estimat Glomerular Filtration Rate > 60, Glucose Level 83, Calcium Level 8.1L, Total Bilirubin 0.3, Aspartate Amino Transf (AST/SGOT) 12L, Alanine Aminotransferase (ALT/SGPT) < 6L, Alkaline Phosphatase 106, Total Protein 6.8, Albumin 1.2L, Globulin 5.6, Albumin/Globulin Ratio 0.2L Height (Feet): 5 Height (Inches): 5.00 Weight (Pounds): 192 Objective General Appearance: WD/WN Neck: supple Cardiovascular: normal rate Respiratory/Chest: chest wall non-tender, lungs clear Abdomen: normal bowel sounds, non tender, soft, no organomegaly Edema: no edema noted Arm (L), no edema noted Arm (R), no edema noted Leg (L), no edema noted Leg (R), no edema noted Pedal (L), no edema noted Pedal (R), no edema noted Generalized BONG BRUNNER Jul 26, 2017 16:23
--- NOTE | 2017-07-26 19:14 | General Progress Note ---
Assessment/Plan Assessment/Plan Assessment - Anemia - prior negative EGD and Colonoscopy - malnutrition, low albumin - Spine osteo - paraspinous abscess - Hepatosplenomegaly, ? early portal HTN - (+) GB stones/sludge - Chronic wounds Recommendations - Push po / protein supplements - follow labs - wound care - Remeron trial - ID f/u - monitor intake - Ensure TID PO Subjective Allergies: Coded Allergies: CEFTRIAXONE (Verified Allergy, Intermediate, SOB, HR-140bpm, face swollen , pt became red, 10/24/15) CODEINE (Verified Allergy, Intermediate, SWELLING, 01/03/11) LATEX (Verified Allergy, Intermediate, SWELLING, 01/03/11) PIPERACILLIN (Verified Allergy, Intermediate, Itching, 08/29/15) 08/29/15 tolerates Ceftaroline TAZOBACTAM (Verified Allergy, Intermediate, Itching, 01/29/15) POLYMYXIN B (Verified Allergy, Mild, Rash, 04/08/16) Suspected allergy reported by MD VANCOMYCIN (Verified Allergy, Mild, 07/15/14) ASPARAGINASE (Verified Allergy, Unknown, 01/28/14) CEFUROXIME (Unverified Allergy, Unknown, 04/19/16) IRON (Verified Allergy, Unknown, 01/28/14) LATEX, NATURAL RUBBER (Unverified Allergy, Unknown, 06/18/16) Subjective Feels OK no new complaints started on Remeron albumin 1.2 Objective Last 24 Hour Vital Signs Date Time Temp Pulse Resp B/P (MAP) Pulse Ox O2 Delivery O2 Flow Rate FiO2 07/26/17 18:20 97.4 99 20 107/66 95 97.4 07/26/17 16:03 102 16 100 Room Air 21 07/26/17 16:00 97.2 100 20 94/60 95 97.2 07/26/17 16:00 102 16 99 Room Air 21 07/26/17 12:00 98.2 102 20 112/64 100 98.2 07/26/17 08:00 98.6 100 20 119/71 100 98.6 07/26/17 04:00 97.7 81 20 100/57 93 Room Air 97.7 07/26/17 00:39 98.2 98 20 107/58 92 Room Air 98.2 100 07/25/17 20:00 98.6 119 20 106/56 95 Room Air 98.6 07/25/17 20:00 108 Intake and Output 07/25/17 07/26/17 19:00 07:00 Intake Total 250 ml Balance 250 ml Intake Oral 250 ml # Voids 1 1 # Bowel Movements 1 Laboratory Tests 07/26/17 06:10: White Blood Count 11.1H, Red Blood Count 3.12L, Hemoglobin 8.4L, Hematocrit 25.7L, Mean Corpuscular Volume 82, Mean Corpuscular Hemoglobin 26.9L, Mean Corpuscular Hemoglobin Concent 32.7, Red Cell Distribution Width 17.3H, Platelet Count 384, Mean Platelet Volume 6.6, Neutrophils (%) (Auto) 70.8, Lymphocytes (%) (Auto) 19.4L, Monocytes (%) (Auto) 6.1, Eosinophils (%) (Auto) 3.3H, Basophils (%) (Auto) 0.4, Sodium Level 132L, Potassium Level 4.3, Chloride Level 100, Carbon Dioxide Level 30, Anion Gap 2L, Blood Urea Nitrogen 8 , Creatinine 0.8, Estimat Glomerular Filtration Rate > 60, Glucose Level 83, Calcium Level 8.1L, Total Bilirubin 0.3, Aspartate Amino Transf (AST/SGOT) 12L, Alanine Aminotransferase (ALT/SGPT) < 6L, Alkaline Phosphatase 106, Total Protein 6.8, Albumin 1.2L, Globulin 5.6, Albumin/Globulin Ratio 0.2L Height (Feet): 5 Height (Inches): 5.00 Weight (Pounds): 192 Objective WDWN NCAT supple CTA RRR abd soft, (+) LLQ ostomy (+) paraplegia wounds noted PITER DEAN Jul 26, 2017 19:14
[2017-07-26] MEDS: Dyna-Hex 2% Top Sol 2oz TOPIC SCH (20:00)
--- NOTE | 2017-07-26 21:29 | Pulmonology Progress Note ---
Assessment/Plan Assessment/Plan Pulmonary Progress Note Assessment/Plan Pleural effusions Pulmonary infiltrates Multiple abcesses Paraplegia Paraspinous abcess s/p thoracentesis - CXR no pneumothorax sinus tachy, improved PLAN care noted IV antibiotics per ID follow up fluid cultures ID noted and reviewed- need disposition for outpatient antibiotics if possible wound care ongoing tele monitoring until heart rate improved monitor clinically and provide benzo as needed monitor oxygen needs; currently stable impression, plan, and exam edited and reviewed in detail care discussed with RN Subjective Allergies: Coded Allergies: CEFTRIAXONE (Verified Allergy, Intermediate, SOB, HR-140bpm, face swollen , pt became red, 10/24/15) CODEINE (Verified Allergy, Intermediate, SWELLING, 01/03/11) LATEX (Verified Allergy, Intermediate, SWELLING, 01/03/11) PIPERACILLIN (Verified Allergy, Intermediate, Itching, 08/29/15) 08/29/15 tolerates Ceftaroline TAZOBACTAM (Verified Allergy, Intermediate, Itching, 01/29/15) POLYMYXIN B (Verified Allergy, Mild, Rash, 04/08/16) Suspected allergy reported by MD VANCOMYCIN (Verified Allergy, Mild, 07/15/14) ASPARAGINASE (Verified Allergy, Unknown, 01/28/14) CEFUROXIME (Unverified Allergy, Unknown, 04/19/16) IRON (Verified Allergy, Unknown, 01/28/14) LATEX, NATURAL RUBBER (Unverified Allergy, Unknown, 06/18/16) Subjective care noted and reviewed with nursing improved heart rate Objective Last 24 Hour Vital Signs VSS stable Intake and Output 07/24/17 07/25/17 19:00 07:00 Intake Total 116 ml 556 ml Balance 116 ml 556 ml Intake Oral 116 ml 356 ml IV Total 200 ml # Voids 1 # Bowel Movements 1 Objective WDWN NAD reduced breath sounds bilaterally with some improvement [id number] without MRG NABS nontender no HSM no CCE paraplegic Laboratory Tests noted White Blood Count 10.3, Red Blood Count 3.29L, Hemoglobin 8.7L, Hematocrit 26.8L , Mean Corpuscular Volume 82, Mean Corpuscular Hemoglobin 26.3L, Mean Corpuscular Hemoglobin Concent 32.3, Red Cell Distribution Width 17.1H, Platelet Count 427, Mean Platelet Volume 6.8, Neutrophils (%) (Auto) 73.0, Lymphocytes (%) (Auto) 16.7L, Monocytes (%) (Auto) 6.9, Eosinophils (%) (Auto) 2.9, Basophils (%) (Auto) 0.5, Erythrocyte Sedimentation Rate 121H, Sodium Level 135L, Potassium Level 4.3, Chloride Level 101, Carbon Dioxide Level 30, Anion Gap 4L, Blood Urea Nitrogen 7, Creatinine 0.7, Estimat Glomerular Filtration Rate > 60, Glucose Level 86, Calcium Level 8.1L, Total Creatine Kinase 14L Current Medications Medications (Trade) Dose Ordered Sig/Pineda Route PRN Reason Start Time Stop Time Status Last Admin Dose Admin Acetaminophen (Tylenol) 650 mg Q6H PRN ORAL Mild Pain/Temp > 100.5 07/23/17 17:00 08/13/17 16:59 Albuterol Sulfate (Proventil MDI) 2 puff Q4H PRN INH Shortness of Breath 07/23/17 17:00 08/13/17 16:59 07/25/17 05:37 Chlorhexidine Gluconate (Nereida-Hex 2%) 1 applic DAILY@2000 TOPIC 07/23/17 20:00 08/15/17 19:59 07/24/17 19:53 Cyclobenzaprine HCl (Flexeril) 10 mg THREE TIMES A DAY ORAL 07/23/17 18:00 08/13/17 22:44 Cyclobenzaprine HCl (Flexeril) 10 mg THREE TIMES A DAY PRN ORAL Muscle Spasm 07/23/17 18:00 08/13/17 22:59 Daptomycin 600 mg/ Sodium Chloride 110 ml @ 220 mls/hr Q24H IV 07/24/17 11:30 07/28/17 11:29 07/24/17 12:09 Escitalopram Oxalate (Lexapro) 10 mg DAILY ORAL 07/24/17 09:00 08/14/17 08:59 Fluconazole/ Sodium Chloride 200 ml @ 100 mls/hr Q24H IV 07/23/17 18:00 07/27/17 17:59 07/24/17 18:26 Heparin Sodium (Porcine) (Heparin 5000 units/ml) 5,000 units EVERY 12 HOURS SUBQ 07/23/17 21:00 08/14/17 20:59 07/24/17 20:45 Hydromorphone HCl (Dilaudid) 2 mg Q3H PRN IVP Severe Pain (Pain Scale 7-10) 07/23/17 17:45 07/29/17 02:44 07/25/17 09:25 Metronidazole (Flagyl) 500 mg Q8HR ORAL 07/23/17 22:00 07/27/17 21:59 07/25/17 05:35 Minocycline HCl (Minocin) 200 mg Q12HR ORAL 07/23/17 21:00 07/29/17 20:59 07/25/17 09:24 Ondansetron HCl (Zofran) 4 mg Q4H PRN IVP Nausea & Vomiting 07/23/17 17:30 08/16/17 09:29 07/25/17 05:45 Pantoprazole (Protonix) 40 mg DAILY@0600 ORAL 07/24/17 06:00 08/14/17 05:59 07/25/17 05:35 Subjective ROS Limited/Unobtainable: Yes Allergies: Coded Allergies: CEFTRIAXONE (Verified Allergy, Intermediate, SOB, HR-140bpm, face swollen , pt became red, 10/24/15) CODEINE (Verified Allergy, Intermediate, SWELLING, 01/03/11) LATEX (Verified Allergy, Intermediate, SWELLING, 01/03/11) PIPERACILLIN (Verified Allergy, Intermediate, Itching, 08/29/15) 08/29/15 tolerates Ceftaroline TAZOBACTAM (Verified Allergy, Intermediate, Itching, 01/29/15) POLYMYXIN B (Verified Allergy, Mild, Rash, 04/08/16) Suspected allergy reported by VANCOMYCIN (Verified Allergy, Mild, 07/15/14) ASPARAGINASE (Verified Allergy, Unknown, 01/28/14) CEFUROXIME (Unverified Allergy, Unknown, 04/19/16) IRON (Verified Allergy, Unknown, 01/28/14) LATEX, NATURAL RUBBER (Unverified Allergy, Unknown, 06/18/16) Objective Last 24 Hour Vital Signs Date Time Temp Pulse Resp B/P (MAP) Pulse Ox O2 Delivery O2 Flow Rate FiO2 07/26/17 20:00 97.0 107 21 103/61 97.0 07/26/17 19:00 89 20 Room Air 21 07/26/17 18:20 97.4 99 20 107/66 95 97.4 07/26/17 16:03 102 16 100 Room Air 21 07/26/17 16:00 97.2 100 20 94/60 95 97.2 07/26/17 16:00 102 16 99 Room Air 21 07/26/17 12:00 98.2 102 20 112/64 100 98.2 07/26/17 08:00 98.6 100 20 119/71 100 98.6 07/26/17 04:00 97.7 81 20 100/57 93 Room Air 97.7 07/26/17 00:39 98.2 98 20 107/58 92 Room Air 98.2 100 Intake and Output 07/25/17 07/26/17 19:00 07:00 Intake Total 250 ml Balance 250 ml Intake Oral 250 ml # Voids 1 1 # Bowel Movements 1 Laboratory Tests 07/26/17 06:10: White Blood Count 11.1H, Red Blood Count 3.12L, Hemoglobin 8.4L, Hematocrit 25.7L, Mean Corpuscular Volume 82, Mean Corpuscular Hemoglobin 26.9L, Mean Corpuscular Hemoglobin Concent 32.7, Red Cell Distribution Width 17.3H, Platelet Count 384, Mean Platelet Volume 6.6, Neutrophils (%) (Auto) 70.8, Lymphocytes (%) (Auto) 19.4L, Monocytes (%) (Auto) 6.1, Eosinophils (%) (Auto) 3.3H, Basophils (%) (Auto) 0.4, Sodium Level 132L, Potassium Level 4.3, Chloride Level 100, Carbon Dioxide Level 30, Anion Gap 2L, Blood Urea Nitrogen 8 , Creatinine 0.8, Estimat Glomerular Filtration Rate > 60, Glucose Level 83, Calcium Level 8.1L, Total Bilirubin 0.3, Aspartate Amino Transf (AST/SGOT) 12L, Alanine Aminotransferase (ALT/SGPT) < 6L, Alkaline Phosphatase 106, Total Protein 6.8, Albumin 1.2L, Globulin 5.6, Albumin/Globulin Ratio 0.2L Current Medications Medications (Trade) Dose Ordered Sig/Pineda Route PRN Reason Start Time Stop Time Status Last Admin Dose Admin Acetaminophen (Tylenol) 650 mg Q6H PRN ORAL Mild Pain/Temp > 100.5 07/26/17 05:00 08/13/17 16:59 Albuterol Sulfate (Proventil MDI) 2 puff Q4H PRN INH Shortness of Breath 07/26/17 01:00 08/13/17 16:59 07/26/17 16:00 Chlorhexidine Gluconate (Nereida-Hex 2%) 1 applic DAILY@2000 TOPIC 07/26/17 20:00 08/15/17 19:59 Cyclobenzaprine HCl (Flexeril) 10 mg THREE TIMES A DAY ORAL 07/26/17 09:00 08/13/17 22:44 07/26/17 10:03 Cyclobenzaprine HCl (Flexeril) 10 mg THREE TIMES A DAY PRN ORAL Muscle Spasm 07/26/17 09:00 08/13/17 22:59 Daptomycin 600 mg/ Sodium Chloride 110 ml @ 220 mls/hr Q24H IV 07/26/17 11:30 08/02/17 11:29 07/26/17 12:35 Diphenhydramine HCl (Benadryl) 50 mg Q6H PRN IVP Itching 07/26/17 10:30 08/25/17 10:29 07/26/17 10:52 Escitalopram Oxalate (Lexapro) 10 mg DAILY ORAL 07/26/17 09:00 08/14/17 08:59 07/26/17 10:04 Heparin Sodium (Porcine) (Heparin 5000 units/ml) 5,000 units EVERY 12 HOURS SUBQ 07/26/17 09:00 08/14/17 20:59 Hydromorphone HCl (Dilaudid) 2 mg Q3H PRN IVP Severe Pain (Pain Scale 7-10) 07/25/17 23:45 07/29/17 02:44 07/26/17 18:20 Levofloxacin (Levaquin) 500 mg DAILY ORAL 07/26/17 09:00 08/02/17 08:59 07/26/17 10:03 Metronidazole (Flagyl) 500 mg Q8HR ORAL 07/26/17 06:00 07/30/17 05:59 07/26/17 14:11 Minocycline HCl (Minocin) 200 mg Q12HR ORAL 07/26/17 09:00 07/29/17 20:59 07/26/17 10:03 Mirtazapine (Remeron) 15 mg BEDTIME ORAL 07/26/17 21:00 08/24/17 22:59 Ondansetron HCl (Zofran) 4 mg Q4H PRN IVP Nausea & Vomiting 07/26/17 01:30 08/16/17 09:29 07/26/17 14:11 Pantoprazole (Protonix) 40 mg DAILY@0600 ORAL 07/26/17 06:00 08/14/17 05:59 Karthik Devine M.D. Jul 26, 2017 21:29
[2017-07-27] VITALS: BP 103/64
[2017-07-27 04:00] VITALS: BP 98/61
[2017-07-27] MEDS: metroNIDAZOLE 500mg tab ORAL SCH ×3 (06:11→21:43)
[2017-07-27] MEDS: Albuterol 90mcg Inhaler 8gm INH PRN ×2 (07:44→18:48)
[2017-07-27 08:00] VITALS: BP 115/63
--- NOTE | 2017-07-27 08:25 | Pulmonology Progress Note ---
Assessment/Plan Assessment/Plan pleural effusions pulmonary infiltrates multiple abceesses paraplegia paraspinous abcess s/p tap sinus tachy, improved PLAN care noted IV antibiotics noted follow up fluid cultures ID noted and reviewed- recommendations noted wound care ongoing after discharge monitor clinically and provide benzo as needed monitor oxygen needs; currently stable impression, plan, and exam edited and reviewed in detail care discussed with RN Subjective Allergies: Coded Allergies: CEFTRIAXONE (Verified Allergy, Intermediate, SOB, HR-140bpm, face swollen , pt became red, 10/24/15) CODEINE (Verified Allergy, Intermediate, SWELLING, 01/03/11) LATEX (Verified Allergy, Intermediate, SWELLING, 01/03/11) PIPERACILLIN (Verified Allergy, Intermediate, Itching, 08/29/15) 08/29/15 tolerates Ceftaroline TAZOBACTAM (Verified Allergy, Intermediate, Itching, 01/29/15) POLYMYXIN B (Verified Allergy, Mild, Rash, 04/08/16) Suspected allergy reported by MD VANCOMYCIN (Verified Allergy, Mild, 07/15/14) ASPARAGINASE (Verified Allergy, Unknown, 01/28/14) CEFUROXIME (Unverified Allergy, Unknown, 04/19/16) IRON (Verified Allergy, Unknown, 01/28/14) LATEX, NATURAL RUBBER (Unverified Allergy, Unknown, 06/18/16) Subjective care noted and reviewed with nursing improved and would like to go home refusing promise Objective Last 24 Hour Vital Signs Date Time Temp Pulse Resp B/P (MAP) Pulse Ox O2 Delivery O2 Flow Rate FiO2 07/27/17 04:00 99.9 100 21 98/61 94 99.9 07/27/17 00:00 99.8 109 21 103/64 99 99.8 07/26/17 20:00 97.0 107 21 103/61 97.0 07/26/17 19:00 89 20 Room Air 21 07/26/17 18:20 97.4 99 20 107/66 95 97.4 07/26/17 16:03 102 16 100 Room Air 21 07/26/17 16:00 97.2 100 20 94/60 95 97.2 07/26/17 16:00 102 16 99 Room Air 21 07/26/17 12:00 98.2 102 20 112/64 100 98.2 Intake and Output 07/26/17 07/27/17 19:00 07:00 Intake Total 370 ml Balance 370 ml Intake Oral 260 ml IV Total 110 ml # Voids 4 4 # Bowel Movements 1 Objective WDWN NAD reduced breath sounds bilaterally with some improvement [id number] without MRG NABS nontender no HSM no CCE paraplegic Current Medications Medications (Trade) Dose Ordered Sig/Pineda Route PRN Reason Start Time Stop Time Status Last Admin Dose Admin Acetaminophen (Tylenol) 650 mg Q6H PRN ORAL Mild Pain/Temp > 100.5 07/26/17 05:00 08/13/17 16:59 Albuterol Sulfate (Proventil MDI) 2 puff Q4H PRN INH Shortness of Breath 07/26/17 01:00 08/13/17 16:59 07/27/17 07:44 Chlorhexidine Gluconate (Nereida-Hex 2%) 1 applic DAILY@1999 TOPIC 07/26/17 20:00 08/15/17 19:59 Cyclobenzaprine HCl (Flexeril) 10 mg THREE TIMES A DAY ORAL 07/26/17 09:00 08/13/17 22:44 07/26/17 10:03 Cyclobenzaprine HCl (Flexeril) 10 mg THREE TIMES A DAY PRN ORAL Muscle Spasm 07/26/17 09:00 08/13/17 22:59 Daptomycin 600 mg/ Sodium Chloride 110 ml @ 220 mls/hr Q24H IV 07/26/17 11:30 08/02/17 11:29 07/26/17 12:35 Diphenhydramine HCl (Benadryl) 50 mg Q6H PRN IVP Itching 07/26/17 10:30 08/25/17 10:29 07/26/17 10:52 Escitalopram Oxalate (Lexapro) 10 mg DAILY ORAL 07/26/17 09:00 08/14/17 08:59 07/26/17 10:04 Heparin Sodium (Porcine) (Heparin 5000 units/ml) 5,000 units EVERY 12 HOURS SUBQ 07/26/17 09:00 08/14/17 20:59 07/26/17 21:36 Hydromorphone HCl (Dilaudid) 2 mg Q3H PRN IVP Severe Pain (Pain Scale 7-10) 07/25/17 23:45 07/29/17 02:44 07/27/17 06:12 Levofloxacin (Levaquin) 500 mg DAILY ORAL 07/26/17 09:00 08/02/17 08:59 07/26/17 10:03 Metronidazole (Flagyl) 500 mg Q8HR ORAL 07/26/17 06:00 07/30/17 05:59 07/27/17 06:11 Minocycline HCl (Minocin) 200 mg Q12HR ORAL 07/26/17 09:00 07/29/17 20:59 07/26/17 21:20 Mirtazapine (Remeron) 15 mg BEDTIME ORAL 07/26/17 21:00 08/24/17 22:59 07/26/17 21:21 Ondansetron HCl (Zofran) 4 mg Q4H PRN IVP Nausea & Vomiting 07/26/17 01:30 08/16/17 09:29 07/26/17 14:11 Pantoprazole (Protonix) 40 mg DAILY@0600 ORAL 07/26/17 06:00 08/14/17 05:59 07/27/17 06:11 LUANN MICHEL Jul 27, 2017 08:25
--- NOTE | 2017-07-27 08:29 | General Progress Note ---
Assessment/Plan Problem List: (1) Chronic osteomyelitis of hip ICD Codes: M86.68 - Other chronic osteomyelitis, other site SNOMED: 585589753 (2) Pressure ulcer ICD Codes: L89.90 - Decubitus ulcer SNOMED: 051193315 (3) Abscess ICD Codes: L02.91 - Abscess SNOMED: 385205712 Status: stable, progressing Assessment/Plan abx per iD wound care plastics eval noted- no surgical intervention recommended- wounds are clear per plastics and can be treated at the wound care center ivf as needed monitor hr- trending down antiemetics and pain rx tap effusion prn check labs will review ct with radiology dc planning home with iv abx- refusing ltac will d/w consultants Subjective ROS Limited/Unobtainable: No Constitutional: Reports: malaise, weakness HEENT: Reports: no symptoms Cardiovascular: Reports: no symptoms Respiratory: Reports: no symptoms Gastrointestinal/Abdominal: Reports: nausea, vomiting Genitourinary: Reports: no symptoms 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: Reports: pre-existing deficit Endocrine: Reports: no symptoms Hematologic/Lymphatic: Reports: no symptoms Allergies: Coded Allergies: CEFTRIAXONE (Verified Allergy, Intermediate, SOB, HR-140bpm, face swollen , pt became red, 10/24/15) CODEINE (Verified Allergy, Intermediate, SWELLING, 01/03/11) LATEX (Verified Allergy, Intermediate, SWELLING, 01/03/11) PIPERACILLIN (Verified Allergy, Intermediate, Itching, 08/29/15) 08/29/15 tolerates Ceftaroline TAZOBACTAM (Verified Allergy, Intermediate, Itching, 01/29/15) POLYMYXIN B (Verified Allergy, Mild, Rash, 04/08/16) Suspected allergy reported by VANCOMYCIN (Verified Allergy, Mild, 07/15/14) ASPARAGINASE (Verified Allergy, Unknown, 01/28/14) CEFUROXIME (Unverified Allergy, Unknown, 04/19/16) IRON (Verified Allergy, Unknown, 01/28/14) LATEX, NATURAL RUBBER (Unverified Allergy, Unknown, 06/18/16) All Systems: reviewed and negative except above Subjective no new complaints. refusing ltac. mild nausea with intermittent vomiting,. Objective Last 24 Hour Vital Signs Date Time Temp Pulse Resp B/P (MAP) Pulse Ox O2 Delivery O2 Flow Rate FiO2 07/27/17 04:00 99.9 100 21 98/61 94 99.9 07/27/17 00:00 99.8 109 21 103/64 99 99.8 07/26/17 20:00 97.0 107 21 103/61 97.0 07/26/17 19:00 89 20 Room Air 21 07/26/17 18:20 97.4 99 20 107/66 95 97.4 07/26/17 16:03 102 16 100 Room Air 21 07/26/17 16:00 97.2 100 20 94/60 95 97.2 07/26/17 16:00 102 16 99 Room Air 21 07/26/17 12:00 98.2 102 20 112/64 100 98.2 Intake and Output 07/26/17 07/27/17 19:00 07:00 Intake Total 370 ml Balance 370 ml Intake Oral 260 ml IV Total 110 ml # Voids 4 4 # Bowel Movements 1 Height (Feet): 5 Height (Inches): 5.00 Weight (Pounds): 192 Objective General Appearance: WD/WN Neck: supple Cardiovascular: normal rate Respiratory/Chest: chest wall non-tender, lungs clear Abdomen: normal bowel sounds, non tender, soft, no organomegaly Edema: no edema noted Arm (L), no edema noted Arm (R), no edema noted Leg (L), no edema noted Leg (R), no edema noted Pedal (L), no edema noted Pedal (R), no edema noted Generalized BONG BRUNNER Jul 27, 2017 08:29
[2017-07-27] MEDS: Heparin 5000 units/ml inj SUBQ SCH ×2 (09:00→21:46)
[2017-07-27] MEDS: Cyclobenzaprine 10mg Tab ORAL SCH ×3 (09:00→17:47)
[2017-07-27] MEDS: Levofloxacin 500mg tab ORAL SCH (09:39)
[2017-07-27] MEDS: Minocycline HCl 50mg cap ORAL SCH ×2 (09:39→21:43)
[2017-07-27 12:00] VITALS: BP 106/99
[2017-07-27] MEDS: NS IV SCH (12:26)
[2017-07-27] MEDS: DAPTOMYCIN IV SCH (12:26)
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
--- NOTE | 2017-07-27 13:45 | Physician Query ---
--------- THIS DOCUMENT IS A PERMANENT PART OF THE MEDICAL RECORD --------- PLEASE COMPLETE DOCUMENT BEFORE SIGNING Dear BONG Carranza Date: 07/27/17 Stock Handler/CDS Name: Mirela Sorensen Stock Handler/CDS Phone No.: [phone] Exercise your independent professional judgment when responding to the query. Questions asked do not imply a particular answer is desired or expected. We greatly appreciate your clarification on this issue. CLINICAL DOCUMENTATION STATES: Progress Note: Dr. Ly (07/23/17) "Malnutrition, low albumin" "Chronic wounds, pressure ulcers" " Chronic Osteomyelitis of left hip" CLINICAL FINDINGS SHOW: Albumin 1.2 Please select the most appropriate option: [] Mild [] Moderate [] Protein/Calorie Malnutrition [x] Protein Malnutrition >Serum albumin 2.8 to 3.4 g/dL or Pre-albumin 5 to 7 mg/dl (3) >Inadequate nutritional intake (1, 2, 3, 4) >NPO > 5 days >Weight loss: 5% in 1 month or 7.5% in 3 months or 10% in 6 months (1,3,4) >BMI 16 to 18.4 or Weight <90 of ideal body weight (1,2,3,4) [] Serum Malnutrition (Protein/Calorie) [x] Severe Protein Malnutrition >Serum Albumin < 2.8 g/dL (1,2) >Lymphocytes < 1500/uL (2) >Inadequate nutritional intake3 , high stress e.g. major trauma, sepsis, pancreatitis, victoria etc. >Decubitus ulcers (1,2) , skin breakdown(2), easy hair pluckability >Weight <80% standard for height (2) >Triceps skin fold <3 mm2 >Mid-arm muscle circumference <25 cm2 >Creatinine-height index <60% standard (2) _ [] Kwashiorkor (rare in [place]) [] Marasmus [] Other [] Unable to determine [] Not Applicable Condition Present on Admission: [x] Yes [] No [ ] Unable to determine Please also document in your Progress Notes and/or Discharge Summary and indicate if the condition was present on admission. Dr. BONG BRUNNER Date/Time MTDD
[2017-07-27 20:00] VITALS: BP 101/62
--- NOTE | 2017-07-27 21:39 | General Progress Note ---
Assessment/Plan Assessment/Plan Assessment - Anemia - prior negative EGD and Colonoscopy - malnutrition, low albumin - Spine osteo - paraspinous abscess - Hepatosplenomegaly, ? early portal HTN - (+) GB stones/sludge - Chronic wounds Recommendations - Push po / protein supplements - follow labs - wound care - Remeron trial - ID f/u - monitor intake - Ensure TID PO Subjective Allergies: Coded Allergies: CEFTRIAXONE (Verified Allergy, Intermediate, SOB, HR-140bpm, face swollen , pt became red, 10/24/15) CODEINE (Verified Allergy, Intermediate, SWELLING, 01/03/11) LATEX (Verified Allergy, Intermediate, SWELLING, 01/03/11) PIPERACILLIN (Verified Allergy, Intermediate, Itching, 08/29/15) 08/29/15 tolerates Ceftaroline TAZOBACTAM (Verified Allergy, Intermediate, Itching, 01/29/15) POLYMYXIN B (Verified Allergy, Mild, Rash, 04/08/16) Suspected allergy reported by MD VANCOMYCIN (Verified Allergy, Mild, 07/15/14) ASPARAGINASE (Verified Allergy, Unknown, 01/28/14) CEFUROXIME (Unverified Allergy, Unknown, 04/19/16) IRON (Verified Allergy, Unknown, 01/28/14) LATEX, NATURAL RUBBER (Unverified Allergy, Unknown, 06/18/16) Subjective Feels OK no new complaints on Remeron trial Objective Last 24 Hour Vital Signs Date Time Temp Pulse Resp B/P (MAP) Pulse Ox O2 Delivery O2 Flow Rate FiO2 07/27/17 18:49 110 16 94 Room Air 21 07/27/17 18:48 110 16 Room Air 21 07/27/17 18:48 110 16 94 Room Air 21 07/27/17 12:00 98.7 101 16 106/99 96 98.7 07/27/17 08:00 99.1 99 16 115/63 96 99.1 07/27/17 07:45 113 16 93 Room Air 21 07/27/17 07:44 113 16 93 Room Air 21 07/27/17 07:44 113 20 Room Air 21 07/27/17 04:00 99.9 100 21 98/61 94 99.9 07/27/17 00:00 99.8 109 21 103/64 99 99.8 Intake and Output 07/26/17 07/27/17 19:00 07:00 Intake Total 370 ml Balance 370 ml Intake Oral 260 ml IV Total 110 ml # Voids 4 4 # Bowel Movements 1 Height (Feet): 5 Height (Inches): 5.00 Weight (Pounds): 192 Objective WDWN NCAT supple CTA RRR abd soft, (+) LLQ ostomy (+) paraplegia wounds noted PITER DEAN Jul 27, 2017 21:39
[2017-07-27] MEDS: Dyna-Hex 2% Top Sol 2oz TOPIC SCH (21:43)
[2017-07-28] VITALS: BP 110/67
[2017-07-28 04:00] VITALS: BP 113/71
[2017-07-28] MEDS: metroNIDAZOLE 500mg tab ORAL SCH ×3 (06:08→21:29)
[2017-07-28 07:18] LABS: BASOPHILS % (AUTO) 0.5 % (0.0-2.0); EOSINOPHILS % (AUTO) 2.1 % (0.0-3.0); HEMATOCRIT 27.1 % (37.0-47.0); HEMOGLOBIN 8.9 G/DL (12.0-16.0); LYMPHOCYTES % (AUTO) 17.3 % (20.0-45.0); MEAN CORPUSCULAR VOLUME 80 FL (80-99); MONOCYTES % (AUTO) 5.9 % (1.0-10.0); NEUTROPHILS % (AUTO) 74.2 % (45.0-75.0); PLATELET COUNT 380 K/UL (150-450); RED BLOOD COUNT 3.38 M/UL (4.20-5.40); RED CELL DISTRIBUTION WIDTH 16.8 % (11.6-14.8); WHITE BLOOD COUNT 12.8 K/UL (4.8-10.8)
[2017-07-28 07:24] LABS: ANION GAP 6 mmol/L (5-15); BLOOD UREA NITROGEN 10 mg/dL (7-18); CALCIUM 8.2 MG/DL (8.5-10.1); CARBON DIOXIDE 29 MMOL/L (21-32); CHLORIDE 100 MMOL/L (98-107); CREATININE 0.7 MG/DL (0.55-1.30); POTASSIUM 4.4 MMOL/L (3.5-5.1); SODIUM 135 MMOL/L (136-145)
--- NOTE | 2017-07-28 07:24 | General Progress Note ---
Assessment/Plan Problem List: (1) Chronic osteomyelitis of hip ICD Codes: M86.68 - Other chronic osteomyelitis, other site SNOMED: 309739687 (2) Pressure ulcer ICD Codes: L89.90 - Decubitus ulcer SNOMED: 186755036 (3) Abscess ICD Codes: L02.91 - Abscess SNOMED: 275063676 Assessment/Plan abx per iD wound care plastics eval noted- no surgical intervention recommended- wounds are clear per plastics and can be treated at the wound care center ivf as needed monitor hr- trending down antiemetics and pain rx tap effusion prn check labs will review ct with radiology will need to arrrange for dapto iv at home dc planning home with iv abx- refusing ltac will d/w consultants Subjective ROS Limited/Unobtainable: No Constitutional: Reports: malaise, weakness HEENT: Reports: no symptoms Cardiovascular: Reports: no symptoms Respiratory: Reports: no symptoms Gastrointestinal/Abdominal: Reports: vomiting Genitourinary: Reports: no symptoms 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: Reports: no symptoms Endocrine: Reports: no symptoms Hematologic/Lymphatic: Reports: no symptoms Allergies: Coded Allergies: CEFTRIAXONE (Verified Allergy, Intermediate, SOB, HR-140bpm, face swollen , pt became red, 10/24/15) CODEINE (Verified Allergy, Intermediate, SWELLING, 01/03/11) LATEX (Verified Allergy, Intermediate, SWELLING, 01/03/11) PIPERACILLIN (Verified Allergy, Intermediate, Itching, 08/29/15) 08/29/15 tolerates Ceftaroline TAZOBACTAM (Verified Allergy, Intermediate, Itching, 01/29/15) POLYMYXIN B (Verified Allergy, Mild, Rash, 04/08/16) Suspected allergy reported by VANCOMYCIN (Verified Allergy, Mild, 07/15/14) ASPARAGINASE (Verified Allergy, Unknown, 01/28/14) CEFUROXIME (Unverified Allergy, Unknown, 04/19/16) IRON (Verified Allergy, Unknown, 01/28/14) LATEX, NATURAL RUBBER (Unverified Allergy, Unknown, 06/18/16) All Systems: reviewed and negative except above Subjective no new complaints. refusing ltac. mild nausea with intermittent vomiting, ID noted. 6 weeks total abx needed. 30 days already completed. Objective Last 24 Hour Vital Signs Date Time Temp Pulse Resp B/P (MAP) Pulse Ox O2 Delivery O2 Flow Rate FiO2 07/28/17 04:00 98.9 101 20 113/71 95 98.9 07/28/17 00:00 99.2 100 20 110/67 96 99.2 07/27/17 20:00 99.7 72 20 101/62 97 99.7 07/27/17 18:49 110 16 94 Room Air 21 07/27/17 18:48 110 16 Room Air 21 07/27/17 18:48 110 16 94 Room Air 21 07/27/17 12:00 98.7 101 16 106/99 96 98.7 07/27/17 08:00 99.1 99 16 115/63 96 99.1 07/27/17 07:45 113 16 93 Room Air 21 07/27/17 07:44 113 16 93 Room Air 21 07/27/17 07:44 113 20 Room Air 21 Intake and Output 07/27/17 07/28/17 19:00 07:00 Intake Total 340 ml 0 ml Balance 340 ml 0 ml Intake Oral 340 ml 0 ml # Voids 2 Laboratory Tests 07/28/17 06:15: White Blood Count 12.8H, Red Blood Count 3.38L, Hemoglobin 8.9L, Hematocrit 27.1L, Mean Corpuscular Volume 80, Mean Corpuscular Hemoglobin 26.5L, Mean Corpuscular Hemoglobin Concent 33.0, Red Cell Distribution Width 16.8H, Platelet Count 380, Mean Platelet Volume 6.9, Neutrophils (%) (Auto) 74.2, Lymphocytes (%) (Auto) 17.3L, Monocytes (%) (Auto) 5.9, Eosinophils (%) (Auto) 2.1, Basophils (%) (Auto) 0.5, Sodium Level [Pending], Potassium Level [Pending] , Chloride Level [Pending], Carbon Dioxide Level [Pending], Blood Urea Nitrogen [Pending], Creatinine [Pending], Estimat Glomerular Filtration Rate [Pending], Glucose Level [Pending], Calcium Level [Pending] Height (Feet): 5 Height (Inches): 5.00 Weight (Pounds): 212 Objective General Appearance: WD/WN Neck: supple Cardiovascular: normal rate Respiratory/Chest: chest wall non-tender, lungs clear Abdomen: normal bowel sounds, non tender, soft, no organomegaly Edema: no edema noted Arm (L), no edema noted Arm (R), no edema noted Leg (L), no edema noted Leg (R), no edema noted Pedal (L), no edema noted Pedal (R), no edema noted Generalized BONG BRUNNER Jul 28, 2017 07:24
[2017-07-28 08:00] VITALS: BP 100/59
[2017-07-28] MEDS: Cyclobenzaprine 10mg Tab ORAL SCH ×3 (09:00→17:15)
[2017-07-28] MEDS: Heparin 5000 units/ml inj SUBQ SCH ×2 (09:00→20:27)
[2017-07-28] MEDS: Levofloxacin 500mg tab ORAL SCH (09:18)
[2017-07-28] MEDS: Minocycline HCl 50mg cap ORAL SCH ×2 (09:18→20:24)
[2017-07-28] MEDS ORDERED: Aspirin Baby 81mg ONE (10:07)
[2017-07-28] MEDS: NS IV SCH (11:05)
[2017-07-28] MEDS: DAPTOMYCIN IV SCH (11:05)
--- NOTE | 2017-07-28 11:53 | General Progress Note ---
Assessment/Plan Assessment/Plan Assessment - Anemia - prior negative EGD and Colonoscopy - malnutrition, low albumin - Spine osteo - paraspinous abscess - Hepatosplenomegaly, ? early portal HTN - (+) GB stones/sludge - Chronic wounds Recommendations - Push po / protein supplements - follow labs - wound care - Remeron trial - ID f/u - monitor intake - Ensure TID PO Subjective Allergies: Coded Allergies: CEFTRIAXONE (Verified Allergy, Intermediate, SOB, HR-140bpm, face swollen , pt became red, 10/24/15) CODEINE (Verified Allergy, Intermediate, SWELLING, 01/03/11) LATEX (Verified Allergy, Intermediate, SWELLING, 01/03/11) PIPERACILLIN (Verified Allergy, Intermediate, Itching, 08/29/15) 08/29/15 tolerates Ceftaroline TAZOBACTAM (Verified Allergy, Intermediate, Itching, 01/29/15) POLYMYXIN B (Verified Allergy, Mild, Rash, 04/08/16) Suspected allergy reported by MD VANCOMYCIN (Verified Allergy, Mild, 07/15/14) ASPARAGINASE (Verified Allergy, Unknown, 01/28/14) CEFUROXIME (Unverified Allergy, Unknown, 04/19/16) IRON (Verified Allergy, Unknown, 01/28/14) LATEX, NATURAL RUBBER (Unverified Allergy, Unknown, 06/18/16) Subjective Feels OK no new complaints on Remeron trial trying to eat last albumin 1.2 Objective Last 24 Hour Vital Signs Date Time Temp Pulse Resp B/P (MAP) Pulse Ox O2 Delivery O2 Flow Rate FiO2 07/28/17 08:25 103 16 Room Air 21 07/28/17 08:00 98.6 106 21 100/59 96 Room Air 98.6 07/28/17 04:00 98.9 101 20 113/71 95 98.9 07/28/17 00:00 99.2 100 20 110/67 96 99.2 07/27/17 20:00 99.7 72 20 101/62 97 99.7 07/27/17 18:49 110 16 94 Room Air 21 07/27/17 18:48 110 16 Room Air 21 07/27/17 18:48 110 16 94 Room Air 21 07/27/17 12:00 98.7 101 16 106/99 96 98.7 Intake and Output 07/27/17 07/28/17 19:00 07:00 Intake Total 340 ml 0 ml Balance 340 ml 0 ml Intake Oral 340 ml 0 ml # Voids 2 Laboratory Tests 07/28/17 06:15: White Blood Count 12.8H, Red Blood Count 3.38L, Hemoglobin 8.9L, Hematocrit 27.1L, Mean Corpuscular Volume 80, Mean Corpuscular Hemoglobin 26.5L, Mean Corpuscular Hemoglobin Concent 33.0, Red Cell Distribution Width 16.8H, Platelet Count 380, Mean Platelet Volume 6.9, Neutrophils (%) (Auto) 74.2, Lymphocytes (%) (Auto) 17.3L, Monocytes (%) (Auto) 5.9, Eosinophils (%) (Auto) 2.1, Basophils (%) (Auto) 0.5, Sodium Level 135L, Potassium Level 4.4, Chloride Level 100, Carbon Dioxide Level 29, Anion Gap 6, Blood Urea Nitrogen 10, Creatinine 0.7, Estimat Glomerular Filtration Rate > 60, Glucose Level 89, Calcium Level 8.2L Height (Feet): 5 Height (Inches): 5.00 Weight (Pounds): 212 Objective WDWN NCAT supple CTA RRR abd soft, (+) LLQ ostomy (+) paraplegia wounds noted PITER DEAN Jul 28, 2017 11:53
[2017-07-28 11:59] VITALS: BP 108/66
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
[2017-07-28 16:00] VITALS: BP 100/64
--- NOTE | 2017-07-28 16:44 | Pulmonology Progress Note ---
Assessment/Plan Assessment/Plan pleural effusions pulmonary infiltrates multiple abcesses paraplegia paraspinous abcess s/p tap sinus tachycardia PLAN care noted IV antibiotics noted follow up fluid cultures ID noted and reviewed- recommendations noted monitor fluid status monitor oxygen needs; currently stable impression, plan, and exam edited and reviewed in detail care discussed with RN Subjective Allergies: Coded Allergies: CEFTRIAXONE (Verified Allergy, Intermediate, SOB, HR-140bpm, face swollen , pt became red, 10/24/15) CODEINE (Verified Allergy, Intermediate, SWELLING, 01/03/11) LATEX (Verified Allergy, Intermediate, SWELLING, 01/03/11) PIPERACILLIN (Verified Allergy, Intermediate, Itching, 08/29/15) 08/29/15 tolerates Ceftaroline TAZOBACTAM (Verified Allergy, Intermediate, Itching, 01/29/15) POLYMYXIN B (Verified Allergy, Mild, Rash, 04/08/16) Suspected allergy reported by VANCOMYCIN (Verified Allergy, Mild, 07/15/14) ASPARAGINASE (Verified Allergy, Unknown, 01/28/14) CEFUROXIME (Unverified Allergy, Unknown, 04/19/16) IRON (Verified Allergy, Unknown, 01/28/14) LATEX, NATURAL RUBBER (Unverified Allergy, Unknown, 06/18/16) Subjective care noted and reviewed with nursing dc planning Objective Last 24 Hour Vital Signs Date Time Temp Pulse Resp B/P (MAP) Pulse Ox O2 Delivery O2 Flow Rate FiO2 07/28/17 16:00 97.9 102 20 100/64 97 Room Air 97.9 07/28/17 11:59 99.1 107 20 108/66 100 Room Air 99.1 07/28/17 08:25 103 16 Room Air 21 07/28/17 08:00 98.6 106 21 100/59 96 Room Air 98.6 07/28/17 04:00 98.9 101 20 113/71 95 98.9 07/28/17 00:00 99.2 100 20 110/67 96 99.2 07/27/17 20:00 99.7 72 20 101/62 97 99.7 07/27/17 18:49 110 16 94 Room Air 21 07/27/17 18:48 110 16 Room Air 21 07/27/17 18:48 110 16 94 Room Air 21 Intake and Output 07/27/17 07/28/17 19:00 07:00 Intake Total 340 ml 0 ml Balance 340 ml 0 ml Intake Oral 340 ml 0 ml # Voids 2 Objective WDWN NAD reduced breath sounds bilaterally with some improvement [id number] without MRG NABS nontender no HSM no CCE paraplegic Laboratory Tests 07/28/17 06:15: White Blood Count 12.8H, Red Blood Count 3.38L, Hemoglobin 8.9L, Hematocrit 27.1L, Mean Corpuscular Volume 80, Mean Corpuscular Hemoglobin 26.5L, Mean Corpuscular Hemoglobin Concent 33.0, Red Cell Distribution Width 16.8H, Platelet Count 380, Mean Platelet Volume 6.9, Neutrophils (%) (Auto) 74.2, Lymphocytes (%) (Auto) 17.3L, Monocytes (%) (Auto) 5.9, Eosinophils (%) (Auto) 2.1, Basophils (%) (Auto) 0.5, Sodium Level 135L, Potassium Level 4.4, Chloride Level 100, Carbon Dioxide Level 29, Anion Gap 6, Blood Urea Nitrogen 10, Creatinine 0.7, Estimat Glomerular Filtration Rate > 60, Glucose Level 89, Calcium Level 8.2L Current Medications Medications (Trade) Dose Ordered Sig/Pineda Route PRN Reason Start Time Stop Time Status Last Admin Dose Admin Acetaminophen (Tylenol) 650 mg Q6H PRN ORAL Mild Pain/Temp > 100.5 07/26/17 05:00 08/13/17 16:59 Albuterol Sulfate (Proventil MDI) 2 puff Q4H PRN INH Shortness of Breath 07/26/17 01:00 08/13/17 16:59 07/27/17 18:48 Chlorhexidine Gluconate (Nereida-Hex 2%) 1 applic DAILY@2000 TOPIC 07/26/17 20:00 08/15/17 19:59 07/27/17 21:43 Cyclobenzaprine HCl (Flexeril) 10 mg THREE TIMES A DAY ORAL 07/26/17 09:00 08/13/17 22:44 07/26/17 10:03 Cyclobenzaprine HCl (Flexeril) 10 mg THREE TIMES A DAY PRN ORAL Muscle Spasm 07/26/17 09:00 08/13/17 22:59 Daptomycin 600 mg/ Sodium Chloride 110 ml @ 220 mls/hr Q24H IV 07/26/17 11:30 08/02/17 11:29 07/28/17 11:05 Diphenhydramine HCl (Benadryl) 50 mg Q6H PRN IVP Itching 07/26/17 10:30 08/25/17 10:29 07/26/17 10:52 Escitalopram Oxalate (Lexapro) 10 mg DAILY ORAL 07/26/17 09:00 08/14/17 08:59 07/26/17 10:04 Heparin Sodium (Porcine) (Heparin 5000 units/ml) 5,000 units EVERY 12 HOURS SUBQ 07/26/17 09:00 08/14/17 20:59 07/27/17 21:46 Hydromorphone HCl (Dilaudid) 2 mg Q3H PRN IVP Severe Pain (Pain Scale 7-10) 07/25/17 23:45 07/29/17 02:44 07/28/17 13:43 Levofloxacin (Levaquin) 500 mg DAILY ORAL 07/26/17 09:00 08/02/17 08:59 07/28/17 09:18 Metronidazole (Flagyl) 500 mg Q8HR ORAL 07/28/17 22:00 08/01/17 21:59 Micafungin Sodium 100 mg/Sodium Chloride 100 ml @ 100 mls/hr Q24H IVPB 07/28/17 16:00 08/04/17 15:59 Minocycline HCl (Minocin) 200 mg Q12HR ORAL 07/27/17 21:00 07/31/17 08:59 07/28/17 09:18 Mirtazapine (Remeron) 15 mg BEDTIME ORAL 07/26/17 21:00 08/24/17 22:59 07/26/17 21:21 Ondansetron HCl (Zofran) 4 mg Q4H PRN IVP Nausea & Vomiting 07/26/17 01:30 08/16/17 09:29 07/26/17 14:11 Pantoprazole (Protonix) 40 mg DAILY@0600 ORAL 07/26/17 06:00 08/14/17 05:59 07/28/17 06:08 LUANN MICHEL Jul 28, 2017 16:44
[2017-07-28] MEDS ORDERED: NS 275ml ONE (18:11)
[2017-07-28 20:00] VITALS: BP 125/83
[2017-07-28] MEDS: Dyna-Hex 2% Top Sol 2oz TOPIC SCH (20:27)
[2017-07-28] MEDS: Albuterol 90mcg Inhaler 8gm INH PRN (21:11)
[2017-07-29 04:00] VITALS: BP 123/72
[2017-07-29] MEDS: metroNIDAZOLE 500mg tab ORAL SCH ×3 (05:38→21:01)
--- NOTE | 2017-07-29 07:30 | General Progress Note ---
Assessment/Plan Problem List: (1) Chronic osteomyelitis of hip ICD Codes: M86.68 - Other chronic osteomyelitis, other site SNOMED: 211858550 (2) Pressure ulcer ICD Codes: L89.90 - Decubitus ulcer SNOMED: 903212033 (3) Abscess ICD Codes: L02.91 - Abscess SNOMED: 206355214 Status: stable, not improved Assessment/Plan abx per [facility] wound care plastics eval noted- no surgical intervention recommended- wounds are clear per plastics and can be treated at the wound care center ivf as needed monitor hr- high again antiemetics and pain rx tap effusion prn check labs will reasses for dc needs oral and 2 iv abx at home dc planning home with iv abx- refusing ltac will d/w consultants Subjective ROS Limited/Unobtainable: No Constitutional: Reports: malaise, weakness HEENT: Reports: no symptoms Cardiovascular: Reports: no symptoms Respiratory: Reports: no symptoms Gastrointestinal/Abdominal: Reports: nausea, vomiting Genitourinary: Reports: no symptoms 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: Reports: pre-existing deficit Endocrine: Reports: no symptoms Hematologic/Lymphatic: Reports: no symptoms Allergies: Coded Allergies: CEFTRIAXONE (Verified Allergy, Intermediate, SOB, HR-140bpm, face swollen , pt became red, 10/24/15) CODEINE (Verified Allergy, Intermediate, SWELLING, 01/03/11) LATEX (Verified Allergy, Intermediate, SWELLING, 01/03/11) PIPERACILLIN (Verified Allergy, Intermediate, Itching, 08/29/15) 08/29/15 tolerates Ceftaroline TAZOBACTAM (Verified Allergy, Intermediate, Itching, 01/29/15) POLYMYXIN B (Verified Allergy, Mild, Rash, 04/08/16) Suspected allergy reported by VANCOMYCIN (Verified Allergy, Mild, 07/15/14) ASPARAGINASE (Verified Allergy, Unknown, 01/28/14) CEFUROXIME (Unverified Allergy, Unknown, 04/19/16) IRON (Verified Allergy, Unknown, 01/28/14) LATEX, NATURAL RUBBER (Unverified Allergy, Unknown, 06/18/16) All Systems: reviewed and negative except above Subjective no new complaints. refusing ltac. mild nausea with intermittent vomiting, ID noted. add micafungin added. HR elevated again Objective Last 24 Hour Vital Signs Date Time Temp Pulse Resp B/P (MAP) Pulse Ox O2 Delivery O2 Flow Rate FiO2 07/29/17 06:45 98 16 Room Air 21 07/29/17 04:00 98.7 117 19 123/72 96 Room Air 98.7 07/28/17 21:12 107 16 96 Room Air 21 07/28/17 20:03 100 16 Room Air 21 07/28/17 20:00 98.4 111 19 125/83 97 Room Air 98.4 07/28/17 16:00 97.9 102 20 100/64 97 Room Air 97.9 07/28/17 11:59 99.1 107 20 108/66 100 Room Air 99.1 07/28/17 08:25 103 16 Room Air 21 07/28/17 08:00 98.6 106 21 100/59 96 Room Air 98.6 Intake and Output 07/28/17 07/29/17 19:00 07:00 Intake Total 960 ml 350 ml Balance 960 ml 350 ml Intake Oral 960 ml 350 ml # Voids 3 2 Height (Feet): 5 Height (Inches): 5.00 Weight (Pounds): 212 Objective General Appearance: WD/WN Neck: supple Cardiovascular: normal rate Respiratory/Chest: chest wall non-tender, lungs clear Abdomen: normal bowel sounds, non tender, soft, no organomegaly Edema: no edema noted Arm (L), no edema noted Arm (R), no edema noted Leg (L), no edema noted Leg (R), no edema noted Pedal (L), no edema noted Pedal (R), no edema noted Generalized BONG BRUNNER Jul 29, 2017 07:30
[2017-07-29 08:41] VITALS: BP 101/67
[2017-07-29] MEDS: Heparin 5000 units/ml inj SUBQ SCH ×2 (09:00→21:10)
[2017-07-29] MEDS: Cyclobenzaprine 10mg Tab ORAL SCH ×3 (09:00→18:00)
[2017-07-29] MEDS: Levofloxacin 500mg tab ORAL SCH (09:25)
[2017-07-29] MEDS: Minocycline HCl 50mg cap ORAL SCH ×2 (09:25→21:02)
[2017-07-29 10:55] LABS: ALANINE AMINOTRANSFERASE < 6 U/L (12-78); ALBUMIN 1.5 G/DL (3.4-5.0); ALKALINE PHOSPHATASE 92 U/L (46-116); ASPARTATE AMINO TRANSFERASE 12 U/L (15-37); BILIRUBIN,DIRECT 0.1 MG/DL (0.0-0.3); BILIRUBIN,TOTAL 0.3 MG/DL (0.2-1.0)
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
[2017-07-29] MEDS: NS IV SCH (11:40)
[2017-07-29] MEDS: DAPTOMYCIN IV SCH (11:40)
[2017-07-29 12:00] VITALS: BP 105/72
[2017-07-29] MEDS ORDERED: Fluconazole 100mg tab ORAL SCH (15:00)
--- NOTE | 2017-07-29 15:06 | Pulmonology Progress Note ---
Assessment/Plan Assessment/Plan pleural effusions pulmonary infiltrates multiple abcesses paraplegia paraspinous abcess s/p tap sinus tachycardia PLAN care noted and working on discharge IV antibiotics noted follow up fluid cultures ID noted and reviewed- recommendations noted monitor fluid status monitor oxygen needs; currently stable impression, plan, and exam edited and reviewed in detail care discussed with RN Subjective Allergies: Coded Allergies: CEFTRIAXONE (Verified Allergy, Intermediate, SOB, HR-140bpm, face swollen , pt became red, 10/24/15) CODEINE (Verified Allergy, Intermediate, SWELLING, 01/03/11) LATEX (Verified Allergy, Intermediate, SWELLING, 01/03/11) PIPERACILLIN (Verified Allergy, Intermediate, Itching, 08/29/15) 08/29/15 tolerates Ceftaroline TAZOBACTAM (Verified Allergy, Intermediate, Itching, 01/29/15) POLYMYXIN B (Verified Allergy, Mild, Rash, 04/08/16) Suspected allergy reported by MD VANCOMYCIN (Verified Allergy, Mild, 07/15/14) ASPARAGINASE (Verified Allergy, Unknown, 01/28/14) CEFUROXIME (Unverified Allergy, Unknown, 04/19/16) IRON (Verified Allergy, Unknown, 01/28/14) LATEX, NATURAL RUBBER (Unverified Allergy, Unknown, 06/18/16) Subjective care noted and reviewed with nursing dc planning noted Objective Last 24 Hour Vital Signs Date Time Temp Pulse Resp B/P (MAP) Pulse Ox O2 Delivery O2 Flow Rate FiO2 07/29/17 13:14 98.3 07/29/17 12:44 98.3 07/29/17 12:00 98.7 107 18 105/72 95 98.7 07/29/17 09:25 98.3 07/29/17 08:41 98.3 99 18 101/67 96 Room Air 98.3 07/29/17 06:45 98 16 Room Air 21 07/29/17 04:00 98.7 117 19 123/72 96 Room Air 98.7 07/28/17 21:12 107 16 96 Room Air 21 07/28/17 20:03 100 16 Room Air 21 07/28/17 20:00 98.4 111 19 125/83 97 Room Air 98.4 07/28/17 16:00 97.9 102 20 100/64 97 Room Air 97.9 Intake and Output 07/28/17 07/29/17 19:00 07:00 Intake Total 960 ml 350 ml Balance 960 ml 350 ml Intake Oral 960 ml 350 ml # Voids 3 2 Objective WDWN NAD reduced breath sounds bilaterally with some improvement [id number] without MRG NABS nontender no HSM no CCE paraplegic Microbiology Date/Time Source Procedure Growth Status 07/28/17 17:00 Stool Clostridium difficile Toxin Assay - Final Complete Laboratory Tests 07/29/17 10:15: Total Bilirubin 0.3, Direct Bilirubin 0.1, Aspartate Amino Transf (AST/SGOT) 12L , Alanine Aminotransferase (ALT/SGPT) < 6L, Alkaline Phosphatase 92, Total Protein 8.0, Albumin 1.5L Current Medications Medications (Trade) Dose Ordered Sig/Pineda Route PRN Reason Start Time Stop Time Status Last Admin Dose Admin Acetaminophen (Tylenol) 650 mg Q6H PRN ORAL Mild Pain/Temp > 100.5 07/26/17 05:00 08/13/17 16:59 Albuterol Sulfate (Proventil MDI) 2 puff Q4H PRN INH Shortness of Breath 07/26/17 01:00 08/13/17 16:59 07/28/17 21:11 Chlorhexidine Gluconate (Nereida-Hex 2%) 1 applic DAILY@2000 TOPIC 07/26/17 20:00 08/15/17 19:59 07/28/17 20:27 Cyclobenzaprine HCl (Flexeril) 10 mg THREE TIMES A DAY ORAL 07/26/17 09:00 08/13/17 22:44 07/26/17 10:03 Cyclobenzaprine HCl (Flexeril) 10 mg THREE TIMES A DAY PRN ORAL Muscle Spasm 07/26/17 09:00 08/13/17 22:59 Daptomycin 600 mg/ Sodium Chloride 110 ml @ 220 mls/hr Q24H IV 07/26/17 11:30 08/02/17 11:29 07/29/17 11:40 Diphenhydramine HCl (Benadryl) 50 mg Q6H PRN IVP Itching 07/26/17 10:30 08/25/17 10:29 07/26/17 10:52 Escitalopram Oxalate (Lexapro) 10 mg DAILY ORAL 07/26/17 09:00 08/14/17 08:59 07/26/17 10:04 Heparin Sodium (Porcine) (Heparin 5000 units/ml) 5,000 units EVERY 12 HOURS SUBQ 07/26/17 09:00 08/14/17 20:59 07/28/17 20:27 Hydromorphone HCl (Dilaudid) 2 mg Q3H PRN IVP Severe Pain (Pain Scale 7-10) 07/29/17 03:15 08/05/17 03:14 07/29/17 12:44 Levofloxacin (Levaquin) 500 mg DAILY ORAL 07/26/17 09:00 08/02/17 08:59 07/29/17 09:25 Metronidazole (Flagyl) 500 mg Q8HR ORAL 07/28/17 22:00 08/01/17 21:59 07/29/17 13:49 Micafungin Sodium 100 mg/Sodium Chloride 100 ml @ 100 mls/hr Q24H IVPB 07/28/17 16:00 08/04/17 15:59 07/28/17 17:05 Minocycline HCl (Minocin) 200 mg Q12HR ORAL 07/29/17 21:00 08/02/17 08:59 Mirtazapine (Remeron) 15 mg BEDTIME ORAL 07/26/17 21:00 08/24/17 22:59 07/28/17 20:24 Ondansetron HCl (Zofran) 4 mg Q4H PRN IVP Nausea & Vomiting 07/26/17 01:30 08/16/17 09:29 07/26/17 14:11 Pantoprazole (Protonix) 40 mg DAILY@0600 ORAL 07/26/17 06:00 08/14/17 05:59 07/29/17 05:38 LUANN MICHEL Jul 29, 2017 15:06
[2017-07-29 16:00] VITALS: BP 110/68
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
[2017-07-29] MEDS: Albuterol 90mcg Inhaler 8gm INH PRN (19:28)
[2017-07-29 20:00] VITALS: BP 104/64
[2017-07-29] MEDS: Dyna-Hex 2% Top Sol 2oz TOPIC SCH (21:01)
--- NOTE | 2017-07-29 21:49 | General Progress Note ---
Assessment/Plan Assessment/Plan Assessment - Anemia - prior negative EGD and Colonoscopy - malnutrition, low albumin - Spine osteo - paraspinous abscess - Hepatosplenomegaly, ? early portal HTN - (+) GB stones/sludge - Chronic wounds Recommendations - Push po / protein supplements - follow labs - wound care - Remeron trial - ID f/u - monitor intake - Ensure TID PO Subjective Allergies: Coded Allergies: CEFTRIAXONE (Verified Allergy, Intermediate, SOB, HR-140bpm, face swollen , pt became red, 10/24/15) CODEINE (Verified Allergy, Intermediate, SWELLING, 01/03/11) LATEX (Verified Allergy, Intermediate, SWELLING, 01/03/11) PIPERACILLIN (Verified Allergy, Intermediate, Itching, 08/29/15) 08/29/15 tolerates Ceftaroline TAZOBACTAM (Verified Allergy, Intermediate, Itching, 01/29/15) POLYMYXIN B (Verified Allergy, Mild, Rash, 04/08/16) Suspected allergy reported by MD VANCOMYCIN (Verified Allergy, Mild, 07/15/14) ASPARAGINASE (Verified Allergy, Unknown, 01/28/14) CEFUROXIME (Unverified Allergy, Unknown, 04/19/16) IRON (Verified Allergy, Unknown, 01/28/14) LATEX, NATURAL RUBBER (Unverified Allergy, Unknown, 06/18/16) Subjective Feels OK no new complaints on Remeron trial trying to eat last albumin higher at 1.5 Objective Last 24 Hour Vital Signs Date Time Temp Pulse Resp B/P (MAP) Pulse Ox O2 Delivery O2 Flow Rate FiO2 07/29/17 20:18 98.3 07/29/17 20:00 99.0 109 20 104/64 96 Room Air 99.0 07/29/17 19:48 98.3 07/29/17 19:30 107 20 95 Room Air 21 07/29/17 19:29 105 20 93 Room Air 21 07/29/17 19:28 105 16 Room Air 21 07/29/17 16:03 98.3 07/29/17 16:01 Room Air 07/29/17 16:00 99.2 116 19 110/68 97 99.2 07/29/17 12:44 98.3 07/29/17 12:01 Room Air 07/29/17 12:00 98.7 107 18 105/72 95 98.7 07/29/17 09:25 98.3 07/29/17 08:41 98.3 99 18 101/67 96 Room Air 98.3 07/29/17 06:45 98 16 Room Air 21 07/29/17 04:00 98.7 117 19 123/72 96 Room Air 98.7 Intake and Output 07/28/17 07/29/17 19:00 07:00 Intake Total 960 ml 350 ml Balance 960 ml 350 ml Intake Oral 960 ml 350 ml # Voids 3 2 Laboratory Tests 07/29/17 10:15: Total Bilirubin 0.3, Direct Bilirubin 0.1, Aspartate Amino Transf (AST/SGOT) 12L , Alanine Aminotransferase (ALT/SGPT) < 6L, Alkaline Phosphatase 92, Total Protein 8.0, Albumin 1.5L Height (Feet): 5 Height (Inches): 5.00 Weight (Pounds): 198 Objective WDWN NCAT supple CTA RRR abd soft, (+) LLQ ostomy (+) paraplegia wounds noted PITER DEAN Jul 29, 2017 21:49
[2017-07-30 04:00] VITALS: BP 104/69
[2017-07-30] MEDS: metroNIDAZOLE 500mg tab ORAL SCH ×3 (05:04→22:18)
--- NOTE | 2017-07-30 07:45 | General Progress Note ---
Assessment/Plan Problem List: (1) Chronic osteomyelitis of hip ICD Codes: M86.68 - Other chronic osteomyelitis, other site SNOMED: 290881267 (2) Pressure ulcer ICD Codes: L89.90 - Decubitus ulcer SNOMED: 109734389 (3) Abscess ICD Codes: L02.91 - Abscess SNOMED: 630232581 Assessment/Plan abx per iD wound care plastics eval noted- no surgical intervention recommended- wounds are clear per plastics and can be treated at the wound care center ivf as needed monitor hr- improved antiemetics and pain rx tap effusion prn check labs will reasses for dc needs oral and 2 iv abx at home cannot go home till tuesday(caregiver not available till tuesday) dc planning home with iv abx- refusing ltac will d/w consultants Subjective ROS Limited/Unobtainable: No Constitutional: Reports: malaise, weakness HEENT: Reports: no symptoms Cardiovascular: Reports: no symptoms Respiratory: Reports: no symptoms Gastrointestinal/Abdominal: Reports: nausea, vomiting Genitourinary: Reports: no symptoms 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: Reports: pre-existing deficit Endocrine: Reports: no symptoms Hematologic/Lymphatic: Reports: anemia Allergies: Coded Allergies: CEFTRIAXONE (Verified Allergy, Intermediate, SOB, HR-140bpm, face swollen , pt became red, 10/24/15) CODEINE (Verified Allergy, Intermediate, SWELLING, 01/03/11) LATEX (Verified Allergy, Intermediate, SWELLING, 01/03/11) PIPERACILLIN (Verified Allergy, Intermediate, Itching, 08/29/15) 08/29/15 tolerates Ceftaroline TAZOBACTAM (Verified Allergy, Intermediate, Itching, 01/29/15) POLYMYXIN B (Verified Allergy, Mild, Rash, 04/08/16) Suspected allergy reported by VANCOMYCIN (Verified Allergy, Mild, 07/15/14) ASPARAGINASE (Verified Allergy, Unknown, 01/28/14) CEFUROXIME (Unverified Allergy, Unknown, 04/19/16) IRON (Verified Allergy, Unknown, 01/28/14) LATEX, NATURAL RUBBER (Unverified Allergy, Unknown, 06/18/16) All Systems: reviewed and negative except above Subjective no new complaints. refusing ltac. mild nausea with intermittent vomiting, ID noted. on multiple abx. appears nontoxic. Objective Last 24 Hour Vital Signs Date Time Temp Pulse Resp B/P (MAP) Pulse Ox O2 Delivery O2 Flow Rate FiO2 07/30/17 05:35 98.3 07/30/17 05:05 98.3 07/30/17 04:00 98.2 99 19 104/69 96 Room Air 98.2 07/30/17 02:02 98.3 07/30/17 00:00 Room Air 07/29/17 20:00 99.0 109 20 104/64 96 Room Air 99.0 07/29/17 19:48 98.3 07/29/17 19:30 107 20 95 Room Air 21 07/29/17 19:29 105 20 93 Room Air 21 07/29/17 19:28 105 16 Room Air 21 07/29/17 16:03 98.3 07/29/17 16:01 Room Air 07/29/17 16:00 99.2 116 19 110/68 97 99.2 07/29/17 12:44 98.3 07/29/17 12:01 Room Air 07/29/17 12:00 98.7 107 18 105/72 95 98.7 07/29/17 09:25 98.3 07/29/17 08:41 98.3 99 18 101/67 96 Room Air 98.3 Intake and Output 07/29/17 07/30/17 19:00 07:00 Intake Total 600 ml 250 ml Balance 600 ml 250 ml Intake Oral 600 ml 250 ml # Voids 1 3 Laboratory Tests 07/29/17 10:15: Total Bilirubin 0.3, Direct Bilirubin 0.1, Aspartate Amino Transf (AST/SGOT) 12L , Alanine Aminotransferase (ALT/SGPT) < 6L, Alkaline Phosphatase 92, Total Protein 8.0, Albumin 1.5L Height (Feet): 5 Height (Inches): 5.00 Weight (Pounds): 198 Objective General Appearance: WD/WN Neck: supple Cardiovascular: normal rate Respiratory/Chest: chest wall non-tender, lungs clear Abdomen: normal bowel sounds, non tender, soft, no organomegaly Edema: no edema noted Arm (L), no edema noted Arm (R), no edema noted Leg (L), no edema noted Leg (R), no edema noted Pedal (L), no edema noted Pedal (R), no edema noted Generalized UOMOTO,BONG Jul 30, 2017 07:45
[2017-07-30 08:00] VITALS: BP 106/69
[2017-07-30] MEDS: Minocycline HCl 50mg cap ORAL SCH ×2 (08:17→20:26)
[2017-07-30] MEDS: Cyclobenzaprine 10mg Tab ORAL SCH ×3 (08:17→17:25)
[2017-07-30] MEDS: Levofloxacin 500mg tab ORAL SCH (08:18)
[2017-07-30 08:27] LABS: BASOPHILS % (AUTO) 0.5 % (0.0-2.0); EOSINOPHILS % (AUTO) 2.1 % (0.0-3.0); HEMATOCRIT 28.8 % (37.0-47.0); HEMOGLOBIN 9.7 G/DL (12.0-16.0); LYMPHOCYTES % (AUTO) 17.3 % (20.0-45.0); MEAN CORPUSCULAR VOLUME 81 FL (80-99); MONOCYTES % (AUTO) 5.5 % (1.0-10.0); NEUTROPHILS % (AUTO) 74.7 % (45.0-75.0); PLATELET COUNT 361 K/UL (150-450); RED BLOOD COUNT 3.54 M/UL (4.20-5.40); RED CELL DISTRIBUTION WIDTH 16.8 % (11.6-14.8); WHITE BLOOD COUNT 11.9 K/UL (4.8-10.8)
[2017-07-30] MEDS ORDERED: Cathflo Alteplase 2mg Inj INJ ONE (08:30)
[2017-07-30 09:00] LABS: ANION GAP 8 mmol/L (5-15); BLOOD UREA NITROGEN 15 mg/dL (7-18); CALCIUM 8.7 MG/DL (8.5-10.1); CARBON DIOXIDE 26 MMOL/L (21-32); CHLORIDE 100 MMOL/L (98-107); CREATININE 0.7 MG/DL (0.55-1.30); SODIUM 134 MMOL/L (136-145)
[2017-07-30] MEDS: Heparin 5000 units/ml inj SUBQ SCH ×2 (09:00→20:29)
--- NOTE | 2017-07-30 09:10 | Pulmonology Progress Note ---
Assessment/Plan Assessment/Plan pleural effusions pulmonary infiltrates multiple abcesses paraplegia paraspinous abcess s/p tap sinus tachycardia PLAN care noted and working on discharge IV antibiotics noted follow up fluid cultures ID noted and reviewed- recommendations noted monitor fluid status monitor oxygen needs; currently stable with management impression, plan, and exam edited and reviewed in detail care discussed with RN Subjective Allergies: Coded Allergies: CEFTRIAXONE (Verified Allergy, Intermediate, SOB, HR-140bpm, face swollen , pt became red, 10/24/15) CODEINE (Verified Allergy, Intermediate, SWELLING, 01/03/11) LATEX (Verified Allergy, Intermediate, SWELLING, 01/03/11) PIPERACILLIN (Verified Allergy, Intermediate, Itching, 08/29/15) 08/29/15 tolerates Ceftaroline TAZOBACTAM (Verified Allergy, Intermediate, Itching, 01/29/15) POLYMYXIN B (Verified Allergy, Mild, Rash, 04/08/16) Suspected allergy reported by MD VANCOMYCIN (Verified Allergy, Mild, 07/15/14) ASPARAGINASE (Verified Allergy, Unknown, 01/28/14) CEFUROXIME (Unverified Allergy, Unknown, 04/19/16) IRON (Verified Allergy, Unknown, 01/28/14) LATEX, NATURAL RUBBER (Unverified Allergy, Unknown, 06/18/16) Subjective care noted and reviewed with nursing dc planning noted Objective Last 24 Hour Vital Signs Date Time Temp Pulse Resp B/P (MAP) Pulse Ox O2 Delivery O2 Flow Rate FiO2 07/30/17 08:00 97.2 100 20 106/69 96 97.2 07/30/17 05:35 98.3 07/30/17 05:05 98.3 07/30/17 04:00 98.2 99 19 104/69 96 Room Air 98.2 07/30/17 02:02 98.3 07/30/17 00:00 Room Air 07/29/17 20:00 99.0 109 20 104/64 96 Room Air 99.0 07/29/17 19:48 98.3 07/29/17 19:30 107 20 95 Room Air 21 07/29/17 19:29 105 20 93 Room Air 21 07/29/17 19:28 105 16 Room Air 21 07/29/17 16:03 98.3 07/29/17 16:01 Room Air 07/29/17 16:00 99.2 116 19 110/68 97 99.2 07/29/17 12:44 98.3 07/29/17 12:01 Room Air 07/29/17 12:00 98.7 107 18 105/72 95 98.7 07/29/17 09:25 98.3 Intake and Output 07/29/17 07/30/17 19:00 07:00 Intake Total 600 ml 250 ml Balance 600 ml 250 ml Intake Oral 600 ml 250 ml # Voids 1 3 Objective WDWN NAD reduced breath sounds bilaterally without rhonchi or wheeze [id number] without MRG NABS nontender no HSM no CCE paraplegic Microbiology Date/Time Source Procedure Growth Status 07/28/17 17:00 Stool Clostridium difficile Toxin Assay - Final Complete Laboratory Tests 07/29/17 10:15: Total Bilirubin 0.3, Direct Bilirubin 0.1, Aspartate Amino Transf (AST/SGOT) 12L , Alanine Aminotransferase (ALT/SGPT) < 6L, Alkaline Phosphatase 92, Total Protein 8.0, Albumin 1.5L 07/30/17 07:35: Sodium Level 134L, Potassium Level 5.0, Chloride Level 100, Carbon Dioxide Level 26, Anion Gap 8, Blood Urea Nitrogen 15, Creatinine 0.7, Estimat Glomerular Filtration Rate > 60, Glucose Level 98, Calcium Level 8.7 Current Medications Medications (Trade) Dose Ordered Sig/Pineda Route PRN Reason Start Time Stop Time Status Last Admin Dose Admin Acetaminophen (Tylenol) 650 mg Q6H PRN ORAL Mild Pain/Temp > 100.5 07/26/17 05:00 08/13/17 16:59 Albuterol Sulfate (Proventil MDI) 2 puff Q4H PRN INH Shortness of Breath 07/26/17 01:00 08/13/17 16:59 07/29/17 19:28 Chlorhexidine Gluconate (Nereida-Hex 2%) 1 applic DAILY@1999 TOPIC 07/26/17 20:00 08/15/17 19:59 07/29/17 21:01 Cyclobenzaprine HCl (Flexeril) 10 mg THREE TIMES A DAY ORAL 07/26/17 09:00 08/13/17 22:44 07/26/17 10:03 Cyclobenzaprine HCl (Flexeril) 10 mg THREE TIMES A DAY PRN ORAL Muscle Spasm 07/26/17 09:00 08/13/17 22:59 Daptomycin 600 mg/ Sodium Chloride 110 ml @ 220 mls/hr Q24H IV 07/26/17 11:30 08/02/17 11:29 07/29/17 11:40 Diphenhydramine HCl (Benadryl) 50 mg Q6H PRN IVP Itching 07/26/17 10:30 08/25/17 10:29 07/26/17 10:52 Escitalopram Oxalate (Lexapro) 10 mg DAILY ORAL 07/26/17 09:00 08/14/17 08:59 07/26/17 10:04 Heparin Sodium (Porcine) (Heparin 5000 units/ml) 5,000 units EVERY 12 HOURS SUBQ 07/26/17 09:00 08/14/17 20:59 07/29/17 21:10 Hydromorphone HCl (Dilaudid) 2 mg Q3H PRN IVP Severe Pain (Pain Scale 7-10) 07/29/17 03:15 08/05/17 03:14 07/30/17 08:17 Levofloxacin (Levaquin) 500 mg DAILY ORAL 07/26/17 09:00 08/02/17 08:59 07/30/17 08:18 Metronidazole (Flagyl) 500 mg Q8HR ORAL 07/28/17 22:00 08/01/17 21:59 07/30/17 05:04 Micafungin Sodium 100 mg/Sodium Chloride 100 ml @ 100 mls/hr Q24H IVPB 07/28/17 16:00 08/04/17 15:59 07/29/17 16:03 Minocycline HCl (Minocin) 200 mg Q12HR ORAL 07/29/17 21:00 08/02/17 08:59 07/30/17 08:17 Mirtazapine (Remeron) 15 mg BEDTIME ORAL 07/26/17 21:00 08/24/17 22:59 07/28/17 20:24 Ondansetron HCl (Zofran) 4 mg Q4H PRN IVP Nausea & Vomiting 07/26/17 01:30 08/16/17 09:29 07/26/17 14:11 Pantoprazole (Protonix) 40 mg DAILY@0600 ORAL 07/26/17 06:00 08/14/17 05:59 07/30/17 05:05 LUANN MICHEL Jul 30, 2017 09:10
[2017-07-30 12:00] VITALS: BP 94/67
[2017-07-30] MEDS: DAPTOMYCIN IV SCH (12:29)
[2017-07-30] MEDS: NS IV SCH (12:29)
--- NOTE | 2017-07-30 14:11 | General Progress Note ---
Assessment/Plan Assessment/Plan Assessment - Anemia - prior negative EGD and Colonoscopy - malnutrition, low albumin - Spine osteo - paraspinous abscess - Hepatosplenomegaly, ? early portal HTN - (+) GB stones/sludge - Chronic wounds Recommendations - Push po / protein supplements - follow labs - wound care - Remeron trial - ID f/u - monitor intake - Ensure TID PO Subjective Allergies: Coded Allergies: CEFTRIAXONE (Verified Allergy, Intermediate, SOB, HR-140bpm, face swollen , pt became red, 10/24/15) CODEINE (Verified Allergy, Intermediate, SWELLING, 01/03/11) LATEX (Verified Allergy, Intermediate, SWELLING, 01/03/11) PIPERACILLIN (Verified Allergy, Intermediate, Itching, 08/29/15) 08/29/15 tolerates Ceftaroline TAZOBACTAM (Verified Allergy, Intermediate, Itching, 01/29/15) POLYMYXIN B (Verified Allergy, Mild, Rash, 04/08/16) Suspected allergy reported by MD VANCOMYCIN (Verified Allergy, Mild, 07/15/14) ASPARAGINASE (Verified Allergy, Unknown, 01/28/14) CEFUROXIME (Unverified Allergy, Unknown, 04/19/16) IRON (Verified Allergy, Unknown, 01/28/14) LATEX, NATURAL RUBBER (Unverified Allergy, Unknown, 06/18/16) Subjective Feels OK no new complaints on Remeron trial trying to eat last albumin higher at 1.5 Objective Last 24 Hour Vital Signs Date Time Temp Pulse Resp B/P (MAP) Pulse Ox O2 Delivery O2 Flow Rate FiO2 07/30/17 08:00 97.2 100 20 106/69 96 97.2 07/30/17 05:35 98.3 07/30/17 05:05 98.3 07/30/17 04:00 98.2 99 19 104/69 96 Room Air 98.2 07/30/17 02:02 98.3 07/30/17 00:00 Room Air 07/29/17 20:00 99.0 109 20 104/64 96 Room Air 99.0 07/29/17 19:48 98.3 07/29/17 19:30 107 20 95 Room Air 21 07/29/17 19:29 105 20 93 Room Air 21 07/29/17 19:28 105 16 Room Air 21 07/29/17 16:03 98.3 07/29/17 16:01 Room Air 07/29/17 16:00 99.2 116 19 110/68 97 99.2 Intake and Output 07/29/17 07/30/17 19:00 07:00 Intake Total 600 ml 250 ml Balance 600 ml 250 ml Intake Oral 600 ml 250 ml # Voids 1 3 Laboratory Tests 07/30/17 07:35: White Blood Count 11.9H, Red Blood Count 3.54L, Hemoglobin 9.7L, Hematocrit 28.8L, Mean Corpuscular Volume 81, Mean Corpuscular Hemoglobin 27.5, Mean Corpuscular Hemoglobin Concent 33.8, Red Cell Distribution Width 16.8H, Platelet Count 361, Mean Platelet Volume 7.0, Neutrophils (%) (Auto) 74.7, Lymphocytes (%) (Auto) 17.3L, Monocytes (%) (Auto) 5.5, Eosinophils (%) (Auto) 2.1, Basophils (%) (Auto) 0.5, Sodium Level 134L, Potassium Level 5.0, Chloride Level 100, Carbon Dioxide Level 26, Anion Gap 8, Blood Urea Nitrogen 15, Creatinine 0.7, Estimat Glomerular Filtration Rate > 60, Glucose Level 98, Calcium Level 8.7 Height (Feet): 5 Height (Inches): 5.00 Weight (Pounds): 198 Objective WDWN NCAT supple CTA RRR abd soft, (+) LLQ ostomy (+) paraplegia wounds noted PITER DEAN Jul 30, 2017 14:11
[2017-07-30 16:00] VITALS: BP 106/67
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
[2017-07-30] MEDS: Albuterol 90mcg Inhaler 8gm INH PRN (18:25)
[2017-07-30 20:00] VITALS: BP 113/71
[2017-07-30] MEDS: Dyna-Hex 2% Top Sol 2oz TOPIC SCH (20:25)
[2017-07-31] MEDS: metroNIDAZOLE 500mg tab ORAL SCH ×3 (05:32→22:36)
[2017-07-31] MEDS: Cyclobenzaprine 10mg Tab ORAL SCH ×3 (05:50→18:00)
[2017-07-31] MEDS: Albuterol 90mcg Inhaler 8gm INH PRN ×2 (06:52→23:20)
[2017-07-31 08:00] VITALS: BP 111/80
[2017-07-31] MEDS: Levofloxacin 500mg tab ORAL SCH (08:40)
[2017-07-31] MEDS: Minocycline HCl 50mg cap ORAL SCH (08:41)
--- NOTE | 2017-07-31 08:51 | General Progress Note ---
Assessment/Plan Problem List: (1) Chronic osteomyelitis of hip ICD Codes: M86.68 - Other chronic osteomyelitis, other site SNOMED: 146698130 (2) Pressure ulcer ICD Codes: L89.90 - Decubitus ulcer SNOMED: 138182331 (3) Abscess ICD Codes: L02.91 - Abscess SNOMED: 671001676 Assessment/Plan ekg abx per iD wound care check ekg and trop check cxr v/q scan transfer tele if tachycardia persistes needs oral and 2 iv abx at home cannot go home till tuesday(caregiver not available till tuesday) dc planning home with iv abx- refusing ltac will d/w consultants Subjective ROS Limited/Unobtainable: No Constitutional: Reports: malaise, weakness HEENT: Reports: no symptoms Cardiovascular: Reports: chest pain Respiratory: Reports: no symptoms Gastrointestinal/Abdominal: Reports: no symptoms Genitourinary: Reports: no symptoms 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: Reports: pre-existing deficit Endocrine: Reports: no symptoms Hematologic/Lymphatic: Reports: no symptoms Allergies: Coded Allergies: CEFTRIAXONE (Verified Allergy, Intermediate, SOB, HR-140bpm, face swollen , pt became red, 10/24/15) CODEINE (Verified Allergy, Intermediate, SWELLING, 01/03/11) LATEX (Verified Allergy, Intermediate, SWELLING, 01/03/11) PIPERACILLIN (Verified Allergy, Intermediate, Itching, 08/29/15) 08/29/15 tolerates Ceftaroline TAZOBACTAM (Verified Allergy, Intermediate, Itching, 01/29/15) POLYMYXIN B (Verified Allergy, Mild, Rash, 04/08/16) Suspected allergy reported by VANCOMYCIN (Verified Allergy, Mild, 07/15/14) ASPARAGINASE (Verified Allergy, Unknown, 01/28/14) CEFUROXIME (Unverified Allergy, Unknown, 04/19/16) IRON (Verified Allergy, Unknown, 01/28/14) LATEX, NATURAL RUBBER (Unverified Allergy, Unknown, 06/18/16) All Systems: reviewed and negative except above Subjective c/o chest pain with breathing. tachycardic. denies sob. Objective Last 24 Hour Vital Signs Date Time Temp Pulse Resp B/P (MAP) Pulse Ox O2 Delivery O2 Flow Rate FiO2 07/31/17 08:39 98.7 07/31/17 08:00 98.7 130 19 111/80 94 Room Air 98.7 07/31/17 06:55 131 16 Room Air 21 07/31/17 06:54 131 16 Room Air 21 07/31/17 06:54 131 16 92 Room Air 21 07/31/17 06:49 98.5 07/31/17 06:02 98.5 07/31/17 05:50 98.5 07/31/17 05:32 98.5 07/31/17 02:22 98.5 07/30/17 23:19 98.5 07/30/17 20:26 98.5 07/30/17 20:21 98 16 Room Air 21 07/30/17 20:00 98.5 117 21 113/71 96 98.5 07/30/17 16:00 97.3 120 20 106/67 94 97.3 07/30/17 14:20 105 20 Room Air 21 07/30/17 12:00 97.7 100 20 94/67 94 97.7 Intake and Output 07/30/17 07/31/17 19:00 07:00 Intake Total 300 ml Balance 300 ml Intake Oral 300 ml # Voids 4 Height (Feet): 5 Height (Inches): 5.00 Weight (Pounds): 198 Objective General Appearance: WD/WN Neck: supple Cardiovascular: normal rate Respiratory/Chest: chest wall non-tender, lungs clear Abdomen: normal bowel sounds, non tender, soft, no organomegaly Edema: no edema noted Arm (L), no edema noted Arm (R), no edema noted Leg (L), no edema noted Leg (R), no edema noted Pedal (L), no edema noted Pedal (R), no edema noted Generalized BONG BRUNNER Jul 31, 2017 08:51
[2017-07-31] MEDS: Heparin 5000 units/ml inj SUBQ SCH (09:00)
[2017-07-31] MEDS: DAPTOMYCIN IV SCH (11:32)
[2017-07-31] MEDS: NS IV SCH (11:32)
--- NOTE | 2017-07-31 11:58 | Pulmonology Progress Note ---
Assessment/Plan Assessment/Plan pleural effusions pulmonary infiltrates multiple abcesses paraplegia paraspinous abcess s/p tap sinus tachycardia PLAN care noted and working on discharge and events noted IV antibiotics noted follow up fluid cultures ID noted and reviewed- recommendations noted for discharge rx written monitor fluid status monitor oxygen needs; currently stable with management impression, plan, and exam edited and reviewed in detail care discussed with RN Subjective Allergies: Coded Allergies: CEFTRIAXONE (Verified Allergy, Intermediate, SOB, HR-140bpm, face swollen , pt became red, 10/24/15) CODEINE (Verified Allergy, Intermediate, SWELLING, 01/03/11) LATEX (Verified Allergy, Intermediate, SWELLING, 01/03/11) PIPERACILLIN (Verified Allergy, Intermediate, Itching, 08/29/15) 08/29/15 tolerates Ceftaroline TAZOBACTAM (Verified Allergy, Intermediate, Itching, 01/29/15) POLYMYXIN B (Verified Allergy, Mild, Rash, 04/08/16) Suspected allergy reported by MD VANCOMYCIN (Verified Allergy, Mild, 07/15/14) ASPARAGINASE (Verified Allergy, Unknown, 01/28/14) CEFUROXIME (Unverified Allergy, Unknown, 04/19/16) IRON (Verified Allergy, Unknown, 01/28/14) LATEX, NATURAL RUBBER (Unverified Allergy, Unknown, 06/18/16) Subjective care noted and reviewed with nursing dc planning noted and ongoing Objective Last 24 Hour Vital Signs Date Time Temp Pulse Resp B/P (MAP) Pulse Ox O2 Delivery O2 Flow Rate FiO2 07/31/17 08:55 95 07/31/17 08:39 98.7 07/31/17 08:00 98.7 130 19 111/80 94 Room Air 98.7 07/31/17 06:55 131 16 Room Air 21 07/31/17 06:54 131 16 Room Air 21 07/31/17 06:54 131 16 92 Room Air 21 07/31/17 06:49 98.5 07/31/17 06:02 98.5 07/31/17 05:50 98.5 07/31/17 05:32 98.5 07/31/17 02:22 98.5 07/30/17 23:19 98.5 07/30/17 20:26 98.5 07/30/17 20:21 98 16 Room Air 21 07/30/17 20:00 98.5 117 21 113/71 96 98.5 07/30/17 16:00 97.3 120 20 106/67 94 97.3 07/30/17 14:20 105 20 Room Air 21 07/30/17 12:00 97.7 100 20 94/67 94 97.7 Intake and Output 07/30/17 07/31/17 19:00 07:00 Intake Total 300 ml Balance 300 ml Intake Oral 300 ml # Voids 4 Objective WDWN NAD reduced breath sounds bilaterally without rhonchi or wheeze [id number] without MRG NABS nontender no HSM no CCE paraplegic Microbiology Date/Time Source Procedure Growth Status 07/29/17 10:15 Blood Blood Culture - Preliminary NO GROWTH AFTER 24 HOURS Resulted 07/29/17 10:00 Blood Blood Culture - Preliminary NO GROWTH AFTER 24 HOURS Resulted 07/28/17 17:00 Stool Clostridium difficile Toxin Assay - Final Complete Laboratory Tests 07/31/17 11:25: Troponin I [Pending] Current Medications Medications (Trade) Dose Ordered Sig/Pineda Route PRN Reason Start Time Stop Time Status Last Admin Dose Admin Acetaminophen (Tylenol) 650 mg Q6H PRN ORAL Mild Pain/Temp > 100.5 07/26/17 05:00 08/13/17 16:59 Albuterol Sulfate (Proventil MDI) 2 puff Q4H PRN INH Shortness of Breath 07/26/17 01:00 08/13/17 16:59 07/31/17 06:52 Chlorhexidine Gluconate (Nereida-Hex 2%) 1 applic DAILY@2000 TOPIC 07/26/17 20:00 08/15/17 19:59 07/30/17 20:25 Cyclobenzaprine HCl (Flexeril) 10 mg THREE TIMES A DAY ORAL 07/26/17 09:00 08/13/17 22:44 07/31/17 05:50 Cyclobenzaprine HCl (Flexeril) 10 mg THREE TIMES A DAY PRN ORAL Muscle Spasm 07/26/17 09:00 08/13/17 22:59 Daptomycin 600 mg/ Sodium Chloride 110 ml @ 220 mls/hr Q24H IV 07/26/17 11:30 08/02/17 11:29 07/31/17 11:32 Diphenhydramine HCl (Benadryl) 50 mg Q6H PRN IVP Itching 07/26/17 10:30 08/25/17 10:29 07/26/17 10:52 Escitalopram Oxalate (Lexapro) 10 mg DAILY ORAL 07/26/17 09:00 08/14/17 08:59 07/26/17 10:04 Heparin Sodium (Porcine) (Heparin 5000 units/ml) 5,000 units EVERY 12 HOURS SUBQ 07/26/17 09:00 08/14/17 20:59 07/30/17 20:29 Hydromorphone HCl (Dilaudid) 2 mg Q3H PRN IVP Severe Pain (Pain Scale 7-10) 07/29/17 03:15 08/05/17 03:14 07/31/17 11:33 Levofloxacin (Levaquin) 500 mg DAILY ORAL 07/26/17 09:00 08/02/17 08:59 07/31/17 08:40 Metronidazole (Flagyl) 500 mg Q8HR ORAL 07/30/17 22:00 08/03/17 21:59 07/31/17 05:32 Micafungin Sodium 100 mg/Sodium Chloride 100 ml @ 100 mls/hr Q24H IVPB 07/28/17 16:00 08/04/17 15:59 07/30/17 16:46 Minocycline HCl (Minocin) 200 mg Q12HR ORAL 07/29/17 21:00 08/02/17 08:59 07/31/17 08:41 Mirtazapine (Remeron) 15 mg BEDTIME ORAL 07/26/17 21:00 08/24/17 22:59 07/28/17 20:24 Ondansetron HCl (Zofran) 4 mg Q4H PRN IVP Nausea & Vomiting 07/26/17 01:30 08/16/17 09:29 07/26/17 14:11 Pantoprazole (Protonix) 40 mg DAILY@0600 ORAL 07/26/17 06:00 08/14/17 05:59 07/31/17 05:32 LUANN MICHEL Jul 31, 2017 11:58
[2017-07-31 12:00] VITALS: BP 99/74
[2017-07-31 13:31] VITALS: BP 107/73
--- NOTE | 2017-07-31 14:19 | General Progress Note ---
Assessment/Plan Assessment/Plan Assessment - Anemia - prior negative EGD and Colonoscopy - malnutrition, low albumin - Spine osteo - paraspinous abscess - Hepatosplenomegaly, ? early portal HTN - (+) GB stones/sludge - Chronic wounds Recommendations - Push po / protein supplements - follow labs - wound care - Remeron trial - ID f/u - monitor intake - Ensure TID PO Subjective Allergies: Coded Allergies: CEFTRIAXONE (Verified Allergy, Intermediate, SOB, HR-140bpm, face swollen , pt became red, 10/24/15) CODEINE (Verified Allergy, Intermediate, SWELLING, 01/03/11) LATEX (Verified Allergy, Intermediate, SWELLING, 01/03/11) PIPERACILLIN (Verified Allergy, Intermediate, Itching, 08/29/15) 08/29/15 tolerates Ceftaroline TAZOBACTAM (Verified Allergy, Intermediate, Itching, 01/29/15) POLYMYXIN B (Verified Allergy, Mild, Rash, 04/08/16) Suspected allergy reported by MD VANCOMYCIN (Verified Allergy, Mild, 07/15/14) ASPARAGINASE (Verified Allergy, Unknown, 01/28/14) CEFUROXIME (Unverified Allergy, Unknown, 04/19/16) IRON (Verified Allergy, Unknown, 01/28/14) LATEX, NATURAL RUBBER (Unverified Allergy, Unknown, 06/18/16) Subjective Feels OK no new complaints on Remeron trial trying to eat d/c plans noted Objective Last 24 Hour Vital Signs Date Time Temp Pulse Resp B/P (MAP) Pulse Ox O2 Delivery O2 Flow Rate FiO2 07/31/17 13:31 74 107/73 07/31/17 12:00 98.8 131 19 99/74 95 Room Air 98.8 07/31/17 08:55 95 07/31/17 08:39 98.7 07/31/17 08:00 98.7 130 19 111/80 94 Room Air 98.7 07/31/17 06:55 131 16 Room Air 21 07/31/17 06:54 131 16 Room Air 21 07/31/17 06:54 131 16 92 Room Air 21 07/31/17 06:49 98.5 07/31/17 06:02 98.5 07/31/17 05:50 98.5 07/31/17 05:32 98.5 4/22/18 02:22 98.5 07/30/17 23:19 98.5 07/30/17 20:26 98.5 07/30/17 20:21 98 16 Room Air 21 07/30/17 20:00 98.5 117 21 113/71 96 98.5 07/30/17 16:00 97.3 120 20 106/67 94 97.3 07/30/17 14:20 105 20 Room Air 21 Intake and Output 07/30/17 07/31/17 19:00 07:00 Intake Total 300 ml Balance 300 ml Intake Oral 300 ml # Voids 4 Laboratory Tests 07/31/17 11:25: Troponin I 0.000 Height (Feet): 5 Height (Inches): 5.00 Weight (Pounds): 198 Objective WDWN NCAT supple CTA RRR abd soft, (+) LLQ ostomy (+) paraplegia wounds noted PITER DEAN Jul 31, 2017 14:18
[2017-07-31] MEDS ORDERED: Sodium Chloride 500ML 500 ML IV ONE (14:30)
[2017-07-31 16:00] VITALS: BP 111/75
[2017-07-31 18:30] VITALS: BP 103/68
[2017-07-31 20:00] VITALS: BP 109/67
[2017-07-31] MEDS ORDERED: Heparin 5000 units/ml inj SUBQ SCH (22:00)
[2017-07-31] MEDS ORDERED: Dyna-Hex 2% Top Sol 2oz TOPIC SCH (22:00)
[2017-07-31] MEDS ORDERED: Minocycline HCl 50mg cap ORAL SCH (22:30)
[2017-07-31] MEDS: DiphenhydrAMINE 50mg/ml Inj IVP PRN (22:35)
[2017-08-01] VITALS: BP 101/59
[2017-08-01 04:00] VITALS: BP 104/62
[2017-08-01] MEDS: metroNIDAZOLE 500mg tab ORAL SCH ×3 (06:00→22:31)
[2017-08-01] MEDS: DiphenhydrAMINE 50mg/ml Inj IVP PRN (07:09)
--- NOTE | 2017-08-01 07:33 | General Progress Note ---
Assessment/Plan Problem List: (1) Chronic osteomyelitis of hip ICD Codes: M86.68 - Other chronic osteomyelitis, other site SNOMED: 289797290 (2) Pressure ulcer ICD Codes: L89.90 - Decubitus ulcer SNOMED: 727454679 (3) Abscess ICD Codes: L02.91 - Abscess SNOMED: 800148956 Status: stable Assessment/Plan abx per iD wound care check echo check cxr v/q scan tele monitoring cards eval dc planning on hold needs oral and 2 iv abx at home dc planning home with iv abx- refusing ltac will d/w consultants Subjective ROS Limited/Unobtainable: No Constitutional: Reports: malaise, weakness HEENT: Reports: no symptoms Cardiovascular: Reports: chest pain Respiratory: Reports: shortness of breath Gastrointestinal/Abdominal: Reports: no symptoms 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: Reports: pre-existing deficit Endocrine: Reports: no symptoms Hematologic/Lymphatic: Reports: no symptoms Allergies: Coded Allergies: CEFTRIAXONE (Verified Allergy, Intermediate, SOB, HR-140bpm, face swollen , pt became red, 10/24/15) CODEINE (Verified Allergy, Intermediate, SWELLING, 01/03/11) LATEX (Verified Allergy, Intermediate, SWELLING, 01/03/11) PIPERACILLIN (Verified Allergy, Intermediate, Itching, 08/29/15) 08/29/15 tolerates Ceftaroline TAZOBACTAM (Verified Allergy, Intermediate, Itching, 01/29/15) POLYMYXIN B (Verified Allergy, Mild, Rash, 04/08/16) Suspected allergy reported by MD VANCOMYCIN (Verified Allergy, Mild, 07/15/14) ASPARAGINASE (Verified Allergy, Unknown, 01/28/14) CEFUROXIME (Unverified Allergy, Unknown, 04/19/16) IRON (Verified Allergy, Unknown, 01/28/14) LATEX, NATURAL RUBBER (Unverified Allergy, Unknown, 06/18/16) All Systems: reviewed and negative except above Subjective transferred to tele for tachycardia and chest pain c/o pleuritic chest pain + sob. vq ordered yesterday but could not be done trop negative. still tachy 130s. Objective Last 24 Hour Vital Signs Date Time Temp Pulse Resp B/P (MAP) Pulse Ox O2 Delivery O2 Flow Rate FiO2 08/01/17 04:00 98.2 85 20 104/62 97 Room Air 98.2 08/01/17 04:00 122 08/01/17 00:00 97.2 108 19 101/59 93 Room Air 97.2 08/01/17 00:00 115 07/31/17 23:22 121 16 Room Air 21 07/31/17 23:20 121 16 95 Room Air 21 07/31/17 20:27 128 18 Room Air 21 07/31/17 20:00 97.9 138 21 109/67 94 Room Air 97.9 07/31/17 20:00 132 07/31/17 18:34 98.8 07/31/17 18:30 137 103/68 07/31/17 16:00 98.8 126 19 111/75 95 Room Air 98.8 07/31/17 13:31 74 107/73 07/31/17 12:00 98.8 131 19 99/74 95 Room Air 98.8 07/31/17 08:55 95 07/31/17 08:39 98.7 07/31/17 08:00 98.7 130 19 111/80 94 Room Air 98.7 Intake and Output 07/31/17 08/01/17 19:00 07:00 Intake Total 710 ml Balance 710 ml Intake Oral 500 ml IV Total 210 ml # Voids 2 Laboratory Tests 07/31/17 11:25: Troponin I 0.000 Height (Feet): 5 Height (Inches): 5.00 Weight (Pounds): 198 Objective General Appearance: WD/WN Neck: supple Cardiovascular: normal rate Respiratory/Chest: chest wall non-tender, lungs clear Abdomen: normal bowel sounds, non tender, soft, no organomegaly Edema: no edema noted Arm (L), no edema noted Arm (R), no edema noted Leg (L), no edema noted Leg (R), no edema noted Pedal (L), no edema noted Pedal (R), no edema noted Generalized BONG BRUNNER Aug 01, 2017 07:33
--- NOTE | 2017-08-01 07:57 | Pulmonology Progress Note ---
Assessment/Plan Assessment/Plan pleural effusions pulmonary infiltrates multiple abcesses paraplegia paraspinous abcess s/p tap sinus tachycardia PLAN care noted and working on discharge and events noted IV antibiotics noted follow up fluid cultures ID noted and reviewed- recommendations noted for discharge rx written monitor fluid status monitor oxygen needs; currently stable with management impression, plan, and exam edited and reviewed in detail care discussed with RN Subjective Allergies: Coded Allergies: CEFTRIAXONE (Verified Allergy, Intermediate, SOB, HR-140bpm, face swollen , pt became red, 10/24/15) CODEINE (Verified Allergy, Intermediate, SWELLING, 01/03/11) LATEX (Verified Allergy, Intermediate, SWELLING, 01/03/11) PIPERACILLIN (Verified Allergy, Intermediate, Itching, 08/29/15) 08/29/15 tolerates Ceftaroline TAZOBACTAM (Verified Allergy, Intermediate, Itching, 01/29/15) POLYMYXIN B (Verified Allergy, Mild, Rash, 04/08/16) Suspected allergy reported by MD VANCOMYCIN (Verified Allergy, Mild, 07/15/14) ASPARAGINASE (Verified Allergy, Unknown, 01/28/14) CEFUROXIME (Unverified Allergy, Unknown, 04/19/16) IRON (Verified Allergy, Unknown, 01/28/14) LATEX, NATURAL RUBBER (Unverified Allergy, Unknown, 06/18/16) Subjective care noted and reviewed with nursing dc planning noted and ongoing Objective Last 24 Hour Vital Signs Date Time Temp Pulse Resp B/P (MAP) Pulse Ox O2 Delivery O2 Flow Rate FiO2 08/01/17 04:00 98.2 85 20 104/62 97 Room Air 98.2 08/01/17 04:00 122 08/01/17 00:00 97.2 108 19 101/59 93 Room Air 97.2 08/01/17 00:00 115 07/31/17 23:22 121 16 Room Air 21 07/31/17 23:20 121 16 95 Room Air 21 07/31/17 20:27 128 18 Room Air 21 07/31/17 20:00 97.9 138 21 109/67 94 Room Air 97.9 07/31/17 20:00 132 07/31/17 18:34 98.8 07/31/17 18:30 137 103/68 07/31/17 16:00 98.8 126 19 111/75 95 Room Air 98.8 07/31/17 13:31 74 107/73 07/31/17 12:00 98.8 131 19 99/74 95 Room Air 98.8 07/31/17 08:55 95 07/31/17 08:39 98.7 07/31/17 08:00 98.7 130 19 111/80 94 Room Air 98.7 Intake and Output 07/31/17 08/01/17 19:00 07:00 Intake Total 710 ml Balance 710 ml Intake Oral 500 ml IV Total 210 ml # Voids 2 2 Objective WDWN NAD reduced breath sounds bilaterally without rhonchi or wheeze [id number] without MRG NABS nontender no HSM no CCE paraplegic Microbiology Date/Time Source Procedure Growth Status 07/29/17 10:15 Blood Blood Culture - Preliminary NO GROWTH AFTER 48 HOURS Resulted 07/29/17 10:00 Blood Blood Culture - Preliminary NO GROWTH AFTER 48 HOURS Resulted Laboratory Tests 07/31/17 11:25: Troponin I 0.000 Current Medications Medications (Trade) Dose Ordered Sig/Pineda Route PRN Reason Start Time Stop Time Status Last Admin Dose Admin Acetaminophen (Tylenol) 650 mg Q6H PRN ORAL Mild Pain/Temp > 100.5 07/31/17 21:32 08/13/17 21:31 Albuterol Sulfate (Proventil MDI) 2 puff Q4H PRN INH Shortness of Breath 08/01/17 01:00 08/13/17 16:59 07/31/17 23:20 Chlorhexidine Gluconate (Nereida-Hex 2%) 1 applic DAILY@2000 TOPIC 08/01/17 20:00 08/15/17 19:59 Cyclobenzaprine HCl (Flexeril) 10 mg THREE TIMES A DAY ORAL 08/01/17 09:00 08/13/17 22:44 Cyclobenzaprine HCl (Flexeril) 10 mg THREE TIMES A DAY PRN ORAL Muscle Spasm 07/31/17 21:36 08/30/17 21:35 Daptomycin 600 mg/ Sodium Chloride 110 ml @ 220 mls/hr Q24H IV 08/01/17 11:30 08/02/17 11:29 Diphenhydramine HCl (Benadryl) 50 mg Q6H PRN IVP Itching 07/31/17 21:32 08/25/17 21:31 08/01/17 07:09 Escitalopram Oxalate (Lexapro) 10 mg DAILY ORAL 08/01/17 09:00 08/14/17 08:59 Heparin Sodium (Porcine) (Heparin 5000 units/ml) 5,000 units EVERY 12 HOURS SUBQ 08/01/17 09:00 08/14/17 20:59 Hydromorphone HCl (Dilaudid) 2 mg Q3H PRN IVP Severe Pain (Pain Scale 7-10) 07/31/17 21:33 08/07/17 21:32 08/01/17 07:09 Levofloxacin (Levaquin) 500 mg DAILY ORAL 08/01/17 09:00 08/02/17 08:59 Metronidazole (Flagyl) 500 mg Q8HR ORAL 07/31/17 22:00 08/03/17 21:59 08/01/17 06:00 Micafungin Sodium 100 mg/Sodium Chloride 100 ml @ 100 mls/hr Q24H IVPB 08/01/17 16:00 08/04/17 15:59 Minocycline HCl (Minocin) 200 mg Q12HR ORAL 08/01/17 09:00 08/02/17 08:59 Mirtazapine (Remeron) 15 mg BEDTIME ORAL 08/01/17 21:00 08/24/17 22:59 Ondansetron HCl (Zofran) 4 mg Q4H PRN IVP Nausea & Vomiting 07/31/17 21:33 08/16/17 21:32 07/31/17 22:46 Pantoprazole (Protonix) 40 mg DAILY@0600 ORAL 08/01/17 06:00 08/14/17 05:59 08/01/17 06:00 LUANN MICHEL Aug 01, 2017 07:57
[2017-08-01 08:00] VITALS: BP 112/72
[2017-08-01] MEDS ORDERED: Levofloxacin 500mg tab ORAL SCH (09:00)
[2017-08-01] MEDS: Heparin 5000 units/ml inj SUBQ SCH ×2 (09:00→20:20)
[2017-08-01] MEDS ORDERED: Minocycline HCl 50mg cap ORAL SCH (09:00)
[2017-08-01] MEDS: Cyclobenzaprine 10mg Tab ORAL SCH ×3 (09:00→17:35)
[2017-08-01 10:15] LABS: BASOPHILS % (AUTO) 0.5 % (0.0-2.0); EOSINOPHILS % (AUTO) 1.1 % (0.0-3.0); HEMATOCRIT 28.8 % (37.0-47.0); HEMOGLOBIN 9.5 G/DL (12.0-16.0); LYMPHOCYTES % (AUTO) 18.1 % (20.0-45.0); MEAN CORPUSCULAR VOLUME 81 FL (80-99); MONOCYTES % (AUTO) 4.4 % (1.0-10.0); NEUTROPHILS % (AUTO) 75.9 % (45.0-75.0); PLATELET COUNT 402 K/UL (150-450); RED BLOOD COUNT 3.56 M/UL (4.20-5.40); RED CELL DISTRIBUTION WIDTH 16.8 % (11.6-14.8); WHITE BLOOD COUNT 14.9 K/UL (4.8-10.8)
[2017-08-01 10:40] LABS: ALANINE AMINOTRANSFERASE < 6 U/L (12-78); ALBUMIN 1.7 G/DL (3.4-5.0); ALBUMIN/GLOBULIN RATIO 0.3 (1.0-2.7); ALKALINE PHOSPHATASE 71 U/L (46-116); ANION GAP 7 mmol/L (5-15); ASPARTATE AMINO TRANSFERASE 11 U/L (15-37); BILIRUBIN,TOTAL 0.4 MG/DL (0.2-1.0); BLOOD UREA NITROGEN 15 mg/dL (7-18); CALCIUM 9.1 MG/DL (8.5-10.1); CARBON DIOXIDE 27 MMOL/L (21-32); CHLORIDE 97 MMOL/L (98-107); CREATININE 0.7 MG/DL (0.55-1.30); POTASSIUM 5.2 MMOL/L (3.5-5.1); SODIUM 131 MMOL/L (136-145)
[2017-08-01 11:15] LABS: ALBUMIN 1.8 G/DL (3.4-5.0)
[2017-08-01] MEDS: Cyclobenzaprine 10mg Tab ORAL PRN (11:20)
[2017-08-01] MEDS ORDERED: NS IV SCH (11:30)
[2017-08-01] MEDS ORDERED: DAPTOMYCIN IV SCH (11:30)
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
--- NOTE | 2017-08-01 12:45 | Diagnostic Imaging Report ---
Indications: Shortness of breath and chest pain Technique: IV administration 5.1 mCi 99m technetium macroaggregated albumin. Images obtained over the lungs in multiple projections. Previously, patient inhaled 42 mCi aerosolized 99M technetium DTPA. Images obtained over the lungs in multiple projections Comparison: Chest radiograph taken the same day Findings: There is slight heterogeneity to tracer distribution on the perfusion images, particularly on the left related to large pleural effusion. However, findings are similar on the perfusion images and the aerosol images. No focal segmental or subsegmental perfusion defects and no area of perfusion/aerosol mismatch demonstrated Impression: Findings deemed low probability for pulmonary embolus
[2017-08-01 13:00] VITALS: BP 113/73
[2017-08-01 16:00] VITALS: BP 114/72
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
[2017-08-01 20:00] VITALS: BP 105/72
[2017-08-01] MEDS: Minocycline HCl 50mg cap ORAL SCH (20:17)
[2017-08-01] MEDS: Dyna-Hex 2% Top Sol 2oz TOPIC SCH (20:17)
--- NOTE | 2017-08-01 21:12 | General Progress Note ---
Assessment/Plan Assessment/Plan Assessment - Anemia - prior negative EGD and Colonoscopy - malnutrition, low albumin - Spine osteo - paraspinous abscess - Hepatosplenomegaly, ? early portal HTN - (+) GB stones/sludge - Chronic wounds Recommendations - Push po / protein supplements - follow labs - wound care - d/c Remeron trial since patient declining medication - ID f/u - monitor intake - Ensure TID PO Subjective Allergies: Coded Allergies: CEFTRIAXONE (Verified Allergy, Intermediate, SOB, HR-140bpm, face swollen , pt became red, 10/24/15) CODEINE (Verified Allergy, Intermediate, SWELLING, 01/03/11) LATEX (Verified Allergy, Intermediate, SWELLING, 01/03/11) PIPERACILLIN (Verified Allergy, Intermediate, Itching, 08/29/15) 08/29/15 tolerates Ceftaroline TAZOBACTAM (Verified Allergy, Intermediate, Itching, 01/29/15) POLYMYXIN B (Verified Allergy, Mild, Rash, 04/08/16) Suspected allergy reported by MD VANCOMYCIN (Verified Allergy, Mild, 07/15/14) ASPARAGINASE (Verified Allergy, Unknown, 01/28/14) CEFUROXIME (Unverified Allergy, Unknown, 04/19/16) IRON (Verified Allergy, Unknown, 01/28/14) LATEX, NATURAL RUBBER (Unverified Allergy, Unknown, 06/18/16) Subjective Feels OK no new complaints patient declining remeron trying to eat d/c plans noted Objective Last 24 Hour Vital Signs Date Time Temp Pulse Resp B/P (MAP) Pulse Ox O2 Delivery O2 Flow Rate FiO2 08/01/17 16:00 136 08/01/17 16:00 98.1 115 18 114/72 94 Room Air 98.1 08/01/17 13:00 97.7 123 19 113/73 96 Room Air 97.7 08/01/17 12:00 122 08/01/17 09:42 101 18 Room Air 21 08/01/17 08:00 125 08/01/17 08:00 97.5 117 20 112/72 97 Room Air 97.5 08/01/17 04:00 98.2 85 20 104/62 97 Room Air 98.2 08/01/17 04:00 122 08/01/17 00:00 97.2 108 19 101/59 93 Room Air 97.2 08/01/17 00:00 115 07/31/17 23:22 121 16 Room Air 21 07/31/17 23:20 121 16 95 Room Air 21 Intake and Output 07/31/17 08/01/17 19:00 07:00 Intake Total 710 ml Balance 710 ml Intake Oral 500 ml IV Total 210 ml # Voids 2 2 Laboratory Tests 08/01/17 06:46: White Blood Count 14.9H, Red Blood Count 3.56L, Hemoglobin 9.5L, Hematocrit 28.8L, Mean Corpuscular Volume 81, Mean Corpuscular Hemoglobin 26.8L, Mean Corpuscular Hemoglobin Concent 33.1, Red Cell Distribution Width 16.8H, Platelet Count 402, Mean Platelet Volume 7.2, Neutrophils (%) (Auto) 75.9H, Lymphocytes (%) (Auto) 18.1L, Monocytes (%) (Auto) 4.4, Eosinophils (%) (Auto) 1.1, Basophils (%) (Auto) 0.5, Sodium Level 131L, Potassium Level 5.2H, Chloride Level 97L, Carbon Dioxide Level 27, Anion Gap 7, Blood Urea Nitrogen 15 , Creatinine 0.7, Estimat Glomerular Filtration Rate > 60, Glucose Level 91, Calcium Level 9.1, Total Bilirubin 0.4, Aspartate Amino Transf (AST/SGOT) 11L, Alanine Aminotransferase (ALT/SGPT) < 6L, Alkaline Phosphatase 71, Total Protein 8.3H, Albumin 1.7L, Globulin 6.6, Albumin/Globulin Ratio 0.3L, Thyroid Stimulating Hormone (TSH) 5.094H Height (Feet): 5 Height (Inches): 5.00 Weight (Pounds): 198 Objective WDWN NCAT supple CTA RRR abd soft, (+) LLQ ostomy (+) paraplegia wounds noted PITER DEAN Aug 01, 2017 21:12
[2017-08-02] VITALS (7 sets, daily range): BP systolic 108–123; BP diastolic 62–73
[2017-08-02] MEDS: Cyclobenzaprine 10mg Tab ORAL PRN (01:50)
--- NOTE | 2017-08-02 05:53 | General Progress Note ---
Assessment/Plan Problem List: (1) Chronic osteomyelitis of hip ICD Codes: M86.68 - Other chronic osteomyelitis, other site SNOMED: 149675223 (2) Pressure ulcer ICD Codes: L89.90 - Decubitus ulcer SNOMED: 318106563 (3) Abscess ICD Codes: L02.91 - Abscess SNOMED: 195498577 Status: stable, progressing Assessment/Plan cont iv abx monitor hr pain control ivf antiemetics tap left effusion Subjective ROS Limited/Unobtainable: No Constitutional: Reports: malaise, weakness HEENT: Reports: no symptoms Cardiovascular: Reports: chest pain Respiratory: Reports: shortness of breath Gastrointestinal/Abdominal: Reports: nausea Genitourinary: Reports: no symptoms 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: Reports: pre-existing deficit Endocrine: Reports: no symptoms Hematologic/Lymphatic: Reports: no symptoms Allergies: Coded Allergies: CEFTRIAXONE (Verified Allergy, Intermediate, SOB, HR-140bpm, face swollen , pt became red, 10/24/15) CODEINE (Verified Allergy, Intermediate, SWELLING, 01/03/11) LATEX (Verified Allergy, Intermediate, SWELLING, 01/03/11) PIPERACILLIN (Verified Allergy, Intermediate, Itching, 08/29/15) 08/29/15 tolerates Ceftaroline TAZOBACTAM (Verified Allergy, Intermediate, Itching, 01/29/15) POLYMYXIN B (Verified Allergy, Mild, Rash, 04/08/16) Suspected allergy reported by VANCOMYCIN (Verified Allergy, Mild, 07/15/14) ASPARAGINASE (Verified Allergy, Unknown, 01/28/14) CEFUROXIME (Unverified Allergy, Unknown, 04/19/16) IRON (Verified Allergy, Unknown, 01/28/14) LATEX, NATURAL RUBBER (Unverified Allergy, Unknown, 06/18/16) All Systems: reviewed and negative except above Subjective v/q low prob. still with pleuritic CP. cxr with left sided effusion. HR remains elevated 110-120s. Objective Last 24 Hour Vital Signs Date Time Temp Pulse Resp B/P (MAP) Pulse Ox O2 Delivery O2 Flow Rate FiO2 08/02/17 03:47 118 08/02/17 03:33 97.6 112 19 109/71 96 Room Air 97.6 08/02/17 00:00 97.2 116 18 111/68 95 Room Air 97.2 08/01/17 23:40 116 08/01/17 20:00 97.9 122 18 105/72 95 Room Air 97.9 08/01/17 19:40 119 08/01/17 16:00 136 08/01/17 16:00 98.1 115 18 114/72 94 Room Air 98.1 08/01/17 13:00 97.7 123 19 113/73 96 Room Air 97.7 08/01/17 12:00 122 08/01/17 09:42 101 18 Room Air 21 08/01/17 08:00 125 08/01/17 08:00 97.5 117 20 112/72 97 Room Air 97.5 Intake and Output 08/01/17 08/02/17 19:00 07:00 Intake Total 2009 ml Balance 2009 ml Intake Oral 1500 ml IV Total 510 ml # Voids 2 Laboratory Tests 08/01/17 06:46: White Blood Count 14.9H, Red Blood Count 3.56L, Hemoglobin 9.5L, Hematocrit 28.8L, Mean Corpuscular Volume 81, Mean Corpuscular Hemoglobin 26.8L, Mean Corpuscular Hemoglobin Concent 33.1, Red Cell Distribution Width 16.8H, Platelet Count 402, Mean Platelet Volume 7.2, Neutrophils (%) (Auto) 75.9H, Lymphocytes (%) (Auto) 18.1L, Monocytes (%) (Auto) 4.4, Eosinophils (%) (Auto) 1.1, Basophils (%) (Auto) 0.5, Sodium Level 131L, Potassium Level 5.2H, Chloride Level 97L, Carbon Dioxide Level 27, Anion Gap 7, Blood Urea Nitrogen 15 , Creatinine 0.7, Estimat Glomerular Filtration Rate > 60, Glucose Level 91, Calcium Level 9.1, Total Bilirubin 0.4, Aspartate Amino Transf (AST/SGOT) 11L, Alanine Aminotransferase (ALT/SGPT) < 6L, Alkaline Phosphatase 71, Total Protein 8.3H, Albumin 1.7L, Globulin 6.6, Albumin/Globulin Ratio 0.3L, Thyroid Stimulating Hormone (TSH) 5.094H Height (Feet): 5 Height (Inches): 5.00 Weight (Pounds): 198 Objective General Appearance: WD/WN Neck: supple Cardiovascular: normal rate Respiratory/Chest: chest wall non-tender, lungs clear Abdomen: normal bowel sounds, non tender, soft, no organomegaly Edema: no edema noted Arm (L), no edema noted Arm (R), no edema noted Leg (L), no edema noted Leg (R), no edema noted Pedal (L), no edema noted Pedal (R), no edema noted Generalized BONG BRUNNER Aug 02, 2017 05:53
[2017-08-02] MEDS: metroNIDAZOLE 500mg tab ORAL SCH ×3 (06:08→21:23)
--- NOTE | 2017-08-02 08:01 | Pulmonology Progress Note ---
Assessment/Plan Assessment/Plan pleural effusions pulmonary infiltrates multiple abcesses paraplegia paraspinous abcess s/p tap sinus tachycardia PLAN thoracentesis IV antibiotics noted follow up fluid cultures ID noted and reviewed awaiting disposition monitor fluid status monitor oxygen needs; currently stable with management impression, plan, and exam edited and reviewed in detail care discussed with RN Subjective Allergies: Coded Allergies: CEFTRIAXONE (Verified Allergy, Intermediate, SOB, HR-140bpm, face swollen , pt became red, 10/24/15) CODEINE (Verified Allergy, Intermediate, SWELLING, 01/03/11) LATEX (Verified Allergy, Intermediate, SWELLING, 01/03/11) PIPERACILLIN (Verified Allergy, Intermediate, Itching, 08/29/15) 08/29/15 tolerates Ceftaroline TAZOBACTAM (Verified Allergy, Intermediate, Itching, 01/29/15) POLYMYXIN B (Verified Allergy, Mild, Rash, 04/08/16) Suspected allergy reported by VANCOMYCIN (Verified Allergy, Mild, 07/15/14) ASPARAGINASE (Verified Allergy, Unknown, 01/28/14) CEFUROXIME (Unverified Allergy, Unknown, 04/19/16) IRON (Verified Allergy, Unknown, 01/28/14) LATEX, NATURAL RUBBER (Unverified Allergy, Unknown, 06/18/16) Subjective care noted and reviewed with nursing underwent VQ plan for tap noted Objective Last 24 Hour Vital Signs Date Time Temp Pulse Resp B/P (MAP) Pulse Ox O2 Delivery O2 Flow Rate FiO2 08/02/17 03:47 118 08/02/17 03:33 97.6 112 19 109/71 96 Room Air 97.6 08/02/17 00:00 97.2 116 18 111/68 95 Room Air 97.2 08/01/17 23:40 116 08/01/17 20:00 97.9 122 18 105/72 95 Room Air 97.9 08/01/17 19:40 119 08/01/17 16:00 136 08/01/17 16:00 98.1 115 18 114/72 94 Room Air 98.1 08/01/17 13:00 97.7 123 19 113/73 96 Room Air 97.7 08/01/17 12:00 122 08/01/17 09:42 101 18 Room Air 21 08/01/17 08:00 125 08/01/17 08:00 97.5 117 20 112/72 97 Room Air 97.5 Intake and Output 08/01/17 08/02/17 19:00 07:00 Intake Total 2009 ml Balance 2009 ml Intake Oral 1500 ml IV Total 510 ml # Voids 2 1 Objective WDWN NAD reduced breath sounds L>R without rhonchi or wheeze [id number] without MRG NABS nontender no HSM no CCE paraplegic Current Medications Medications (Trade) Dose Ordered Sig/Pineda Route PRN Reason Start Time Stop Time Status Last Admin Dose Admin Acetaminophen (Tylenol) 650 mg Q6H PRN ORAL Mild Pain/Temp > 100.5 07/31/17 21:32 08/13/17 21:31 Albuterol Sulfate (Proventil MDI) 2 puff Q4H PRN INH Shortness of Breath 08/01/17 01:00 08/13/17 16:59 07/31/17 23:20 Chlorhexidine Gluconate (Nereida-Hex 2%) 1 applic DAILY@2000 TOPIC 08/01/17 20:00 08/15/17 19:59 08/01/17 20:17 Cyclobenzaprine HCl (Flexeril) 10 mg THREE TIMES A DAY ORAL 08/01/17 09:00 08/13/17 22:44 08/01/17 17:35 Cyclobenzaprine HCl (Flexeril) 10 mg THREE TIMES A DAY PRN ORAL Muscle Spasm 07/31/17 21:36 08/30/17 21:35 08/02/17 01:50 Daptomycin 600 mg/ Sodium Chloride 110 ml @ 220 mls/hr Q24H IV 08/02/17 11:30 08/03/17 23:59 Diphenhydramine HCl (Benadryl) 50 mg Q6H PRN IVP Itching 07/31/17 21:32 08/25/17 21:31 08/01/17 07:09 Escitalopram Oxalate (Lexapro) 10 mg DAILY ORAL 08/01/17 09:00 08/14/17 08:59 Heparin Sodium (Porcine) (Heparin 5000 units/ml) 5,000 units EVERY 12 HOURS SUBQ 08/01/17 09:00 08/14/17 20:59 08/01/17 20:20 Hydromorphone HCl (Dilaudid) 2 mg Q3H PRN IVP Severe Pain (Pain Scale 7-10) 07/31/17 21:33 08/07/17 21:32 08/02/17 06:08 Levofloxacin (Levaquin) 500 mg DAILY ORAL 08/02/17 09:00 08/03/17 23:59 Metronidazole (Flagyl) 500 mg Q8HR ORAL 08/01/17 22:00 08/04/17 23:59 08/02/17 06:08 Micafungin Sodium 100 mg/Sodium Chloride 100 ml @ 100 mls/hr Q24H IVPB 08/01/17 16:00 08/04/17 15:59 08/01/17 16:46 Minocycline HCl (Minocin) 200 mg Q12HR ORAL 08/01/17 21:00 08/02/17 23:59 08/01/17 20:17 Ondansetron HCl (Zofran) 4 mg Q4H PRN IVP Nausea & Vomiting 07/31/17 21:33 08/16/17 21:32 07/31/17 22:46 Pantoprazole (Protonix) 40 mg DAILY@0600 ORAL 08/01/17 06:00 08/14/17 05:59 08/02/17 06:07 Sodium Chloride 1,000 ml @ 75 mls/hr [id number] IV 08/01/17 14:30 08/31/17 14:29 08/02/17 04:14 LUANN MICHEL Aug 02, 2017 08:00
[2017-08-02] MEDS: Heparin 5000 units/ml inj SUBQ SCH ×2 (08:05→21:00)
[2017-08-02] MEDS: Levofloxacin 500mg tab ORAL SCH (09:53)
[2017-08-02] MEDS: Minocycline HCl 50mg cap ORAL SCH ×2 (09:54→21:23)
[2017-08-02] MEDS: Cyclobenzaprine 10mg Tab ORAL SCH ×3 (09:54→17:43)
[2017-08-02 10:18] LABS: BASOPHILS % (AUTO) 0.6 % (0.0-2.0); EOSINOPHILS % (AUTO) 1.2 % (0.0-3.0); HEMATOCRIT 28.1 % (37.0-47.0); HEMOGLOBIN 8.9 G/DL (12.0-16.0); LYMPHOCYTES % (AUTO) 16.4 % (20.0-45.0); MEAN CORPUSCULAR VOLUME 81 FL (80-99); MONOCYTES % (AUTO) 5.4 % (1.0-10.0); NEUTROPHILS % (AUTO) 76.5 % (45.0-75.0); PLATELET COUNT 375 K/UL (150-450); RED BLOOD COUNT 3.44 M/UL (4.20-5.40); RED CELL DISTRIBUTION WIDTH 17.3 % (11.6-14.8); WHITE BLOOD COUNT 12.4 K/UL (4.8-10.8)
[2017-08-02 10:29] LABS: INR 1.2 (0.9-1.1)
[2017-08-02] MEDS ORDERED: LORazepam Inj 2mg/ml 1ml IV ONE ×2 (10:30→13:45)
[2017-08-02 10:31] LABS: ANION GAP 6 mmol/L (5-15); BLOOD UREA NITROGEN 14 mg/dL (7-18); CALCIUM 8.6 MG/DL (8.5-10.1); CARBON DIOXIDE 25 MMOL/L (21-32); CHLORIDE 99 MMOL/L (98-107); CREATININE 0.8 MG/DL (0.55-1.30); POTASSIUM 4.8 MMOL/L (3.5-5.1); SODIUM 130 MMOL/L (136-145)
[2017-08-02] MEDS: Albuterol 90mcg Inhaler 8gm INH PRN (10:49)
[2017-08-02] MEDS: DAPTOMYCIN IV SCH (13:34)
[2017-08-02] MEDS: NS IV SCH (13:34)
--- NOTE | 2017-08-02 15:10 | Pre-Procedure Note/Attestation ---
Pre-Procedure Note/Attestation Complete Prior to Procedure Planned Procedure: left Procedure Narrative: US guided thoracentesis Indications for Procedure Pre-Operative Diagnosis: pleural effusion Attestation I attest that I discussed the nature of the procedure; its benefits; risks and complications; and alternatives (and the risks and benefits of such alternatives ), prior to the procedure, with the patient (or the patient's legal insurance service representative). I attest that, if there was a reasonable possibility of needing a blood transfusion, the patient (or the patient's legal insurance service representative) was given the [facility] standardized written summary, pursuant to the Wally Tami Blood Safety Act ([place] Health and Safety Code # 1645, as amended). I attest that I re-evaluated the patient just prior to the surgery and that there has been no change in the patient's H&P, except as documented below: XANDER NOLAN M.D. Aug 02, 2017 15:10
--- NOTE | 2017-08-02 15:11 | Brief Operative Note ---
Immediate Post Operative Note Operative Note Chief Complaint: SOB Pre-op Diagnosis: pleural effusion Procedure: Thoracentesis Post-op Diagnosis: pleural effusion Post-op Diagnosis: same as pre-op Findings: consistent w/pre-op dx studies Surgeon: Lourdes NOLAN Anesthesia: local Specimen: yes - pleural fluid Complications: none Condition: stable Fluids: none Estimated Blood Loss: none Drains: none Implant(s) used?: No XANDER NOLAN M.D. Aug 02, 2017 15:11
--- NOTE | 2017-08-02 15:20 | Diagnostic Imaging Report ---
Indication: Status post thoracentesis Technique: One view of the chest Comparison: 08/01/2017 Findings: Left-sided pleural effusion is largely resolved, status post thoracentesis. No pneumothorax demonstrated. Inspiration is suboptimal, with crowding of bronchovascular markings. No definite infiltrates. Slight blunting of right costophrenic sulcus could indicate a small amount of pleural fluid on the right side. Left arm PICC again demonstrated Impression: Resolved left pleural effusion, status post thoracentesis. No radiographically evident complication Possible trace right pleural effusion Hypoventilatory exam
--- NOTE | 2017-08-02 15:21 | Diagnostic Imaging Report ---
Indications: Pleural effusion Technique: Ultrasound used to localize optimal puncture site. Sterile prepping and draping left chest. Local anesthesia with 1% lidocaine. Under real-time ultrasound guidance, puncture pleural space using thoracentesis needle. Stylet removed. Catheter placed to vacuum bottle suction. Total 600 milliliters of fluid aspirated. Patient tolerated procedure well, without immediate complication. Findings: Followup sonography demonstrates complete resolution of pleural fluid. Impression: Successful ultrasound-guided thoracentesis, yielding 600 milliliters of fluid
[2017-08-02] MEDS ORDERED: Tubing IV Secondary IV ONE (17:36)
--- NOTE | 2017-08-02 19:00 | General Progress Note ---
Assessment/Plan Assessment/Plan Assessment - Anemia - prior negative EGD and Colonoscopy - malnutrition, low albumin - Spine osteo - paraspinous abscess - Hepatosplenomegaly, ? early portal HTN - (+) GB stones/sludge - Chronic wounds Recommendations - Push po / protein supplements - follow labs - wound care - d/c Remeron trial since patient declining medication - ID f/u - monitor intake - Ensure TID PO Subjective Allergies: Coded Allergies: CEFTRIAXONE (Verified Allergy, Intermediate, SOB, HR-140bpm, face swollen , pt became red, 10/24/15) CODEINE (Verified Allergy, Intermediate, SWELLING, 01/03/11) LATEX (Verified Allergy, Intermediate, SWELLING, 01/03/11) PIPERACILLIN (Verified Allergy, Intermediate, Itching, 08/29/15) 08/29/15 tolerates Ceftaroline TAZOBACTAM (Verified Allergy, Intermediate, Itching, 01/29/15) POLYMYXIN B (Verified Allergy, Mild, Rash, 04/08/16) Suspected allergy reported by MD VANCOMYCIN (Verified Allergy, Mild, 07/15/14) ASPARAGINASE (Verified Allergy, Unknown, 01/28/14) CEFUROXIME (Unverified Allergy, Unknown, 04/19/16) IRON (Verified Allergy, Unknown, 01/28/14) LATEX, NATURAL RUBBER (Unverified Allergy, Unknown, 06/18/16) Subjective Feels OK no new complaints albumin now 1.7-1.8 range d/c plans noted Objective Last 24 Hour Vital Signs Date Time Temp Pulse Resp B/P (MAP) Pulse Ox O2 Delivery O2 Flow Rate FiO2 08/02/17 18:50 97.7 08/02/17 17:43 97.7 08/02/17 16:51 97.7 08/02/17 16:21 97.7 08/02/17 16:00 97.7 120 18 108/70 95 Room Air 97.7 08/02/17 16:00 139 08/02/17 13:34 97.7 08/02/17 13:22 97.7 08/02/17 12:00 112 08/02/17 12:00 98.1 109 18 110/69 95 Room Air 98.1 08/02/17 10:15 123 20 Room Air 21 08/02/17 08:00 97.7 110 17 120/73 95 Room Air 97.7 08/02/17 08:00 113 08/02/17 03:47 118 08/02/17 03:33 97.6 112 19 109/71 96 Room Air 97.6 08/02/17 00:00 97.2 116 18 111/68 95 Room Air 97.2 08/01/17 23:40 116 08/01/17 20:00 97.9 122 18 105/72 95 Room Air 97.9 08/01/17 19:40 119 Intake and Output 08/01/17 08/02/17 19:00 07:00 Intake Total 2009 ml 75 ml Balance 2009 ml 75 ml Intake Oral 1500 ml IV Total 510 ml 75 ml # Voids 2 1 Laboratory Tests 08/02/17 09:50: White Blood Count 12.4H, Red Blood Count 3.44L, Hemoglobin 8.9L, Hematocrit 28.1L, Mean Corpuscular Volume 81, Mean Corpuscular Hemoglobin 25.9L, Mean Corpuscular Hemoglobin Concent 31.8L, Red Cell Distribution Width 17.3H, Platelet Count 375, Mean Platelet Volume 7.4, Neutrophils (%) (Auto) 76.5H, Lymphocytes (%) (Auto) 16.4L, Monocytes (%) (Auto) 5.4, Eosinophils (%) (Auto) 1.2, Basophils (%) (Auto) 0.6, Prothrombin Time 12.6H, Prothromb Time International Ratio 1.2H, Activated Partial Thromboplast Time 41H, Sodium Level 130L, Potassium Level 4.8, Chloride Level 99, Carbon Dioxide Level 25, Anion Gap 6, Blood Urea Nitrogen 14, Creatinine 0.8, Estimat Glomerular Filtration Rate > 60, Glucose Level 105, Calcium Level 8.6 Height (Feet): 5 Height (Inches): 5.00 Weight (Pounds): 198 Objective WDWN NCAT supple CTA RRR abd soft, (+) LLQ ostomy (+) paraplegia wounds noted PITER DEAN Aug 02, 2017 19:00
[2017-08-02] MEDS: Dyna-Hex 2% Top Sol 2oz TOPIC SCH (20:16)
[2017-08-03 04:00] VITALS: BP 121/77
[2017-08-03] MEDS: metroNIDAZOLE 500mg tab ORAL SCH ×3 (06:31→21:50)
--- NOTE | 2017-08-03 07:41 | General Progress Note ---
Assessment/Plan Problem List: (1) Chronic osteomyelitis of hip ICD Codes: M86.68 - Other chronic osteomyelitis, other site SNOMED: 683090932 (2) Pressure ulcer ICD Codes: L89.90 - Decubitus ulcer SNOMED: 750407683 (3) Abscess ICD Codes: L02.91 - Abscess SNOMED: 964938836 Status: stable, progressing Assessment/Plan cont iv abx monitor hr pain control ivf follow up echo antiemetics Subjective ROS Limited/Unobtainable: No Constitutional: Reports: malaise, weakness HEENT: Reports: no symptoms Cardiovascular: Reports: palpitations Respiratory: Reports: no symptoms Gastrointestinal/Abdominal: Reports: nausea Genitourinary: Reports: no symptoms 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: Reports: pre-existing deficit Endocrine: Reports: no symptoms Hematologic/Lymphatic: Reports: no symptoms Allergies: Coded Allergies: CEFTRIAXONE (Verified Allergy, Intermediate, SOB, HR-140bpm, face swollen , pt became red, 10/24/15) CODEINE (Verified Allergy, Intermediate, SWELLING, 01/03/11) LATEX (Verified Allergy, Intermediate, SWELLING, 01/03/11) PIPERACILLIN (Verified Allergy, Intermediate, Itching, 08/29/15) 08/29/15 tolerates Ceftaroline TAZOBACTAM (Verified Allergy, Intermediate, Itching, 01/29/15) POLYMYXIN B (Verified Allergy, Mild, Rash, 04/08/16) Suspected allergy reported by VANCOMYCIN (Verified Allergy, Mild, 07/15/14) ASPARAGINASE (Verified Allergy, Unknown, 01/28/14) CEFUROXIME (Unverified Allergy, Unknown, 04/19/16) IRON (Verified Allergy, Unknown, 01/28/14) LATEX, NATURAL RUBBER (Unverified Allergy, Unknown, 06/18/16) All Systems: reviewed and negative except above Subjective s/p 600 cc left sided thoracentesis still with severe pain. tearful. HR remains 120s. echo ordered- not done yet? Objective Last 24 Hour Vital Signs Date Time Temp Pulse Resp B/P (MAP) Pulse Ox O2 Delivery O2 Flow Rate FiO2 08/03/17 04:42 97.0 08/03/17 04:12 97.0 08/03/17 04:00 98.3 113 20 121/77 92 98.3 08/03/17 04:00 109 08/03/17 00:00 118 08/02/17 23:38 97.0 119 20 108/62 96 Room Air 97.0 08/02/17 22:58 97.0 08/02/17 20:00 132 08/02/17 20:00 97.0 128 18 123/67 95 Room Air 97.0 08/02/17 19:49 97.7 08/02/17 19:07 111 22 Room Air 21 08/02/17 18:50 97.7 08/02/17 17:43 97.7 08/02/17 16:21 97.7 08/02/17 16:00 97.7 120 18 108/70 95 Room Air 97.7 08/02/17 16:00 139 08/02/17 13:34 97.7 08/02/17 13:22 97.7 08/02/17 12:00 112 08/02/17 12:00 98.1 109 18 110/69 95 Room Air 98.1 08/02/17 10:15 123 20 Room Air 21 08/02/17 08:00 97.7 110 17 120/73 95 Room Air 97.7 08/02/17 08:00 113 Intake and Output 08/02/17 08/03/17 19:00 07:00 Intake Total 1835 ml 240 ml Balance 1835 ml 240 ml Intake Oral 240 ml IV Total 635 ml Other 1200 ml # Voids 2 2 Laboratory Tests 08/02/17 09:50: White Blood Count 12.4H, Red Blood Count 3.44L, Hemoglobin 8.9L, Hematocrit 28.1L, Mean Corpuscular Volume 81, Mean Corpuscular Hemoglobin 25.9L, Mean Corpuscular Hemoglobin Concent 31.8L, Red Cell Distribution Width 17.3H, Platelet Count 375, Mean Platelet Volume 7.4, Neutrophils (%) (Auto) 76.5H, Lymphocytes (%) (Auto) 16.4L, Monocytes (%) (Auto) 5.4, Eosinophils (%) (Auto) 1.2, Basophils (%) (Auto) 0.6, Prothrombin Time 12.6H, Prothromb Time International Ratio 1.2H, Activated Partial Thromboplast Time 41H, Sodium Level 130L, Potassium Level 4.8, Chloride Level 99, Carbon Dioxide Level 25, Anion Gap 6, Blood Urea Nitrogen 14, Creatinine 0.8, Estimat Glomerular Filtration Rate > 60, Glucose Level 105, Calcium Level 8.6 Height (Feet): 5 Height (Inches): 5.00 Weight (Pounds): 198 Objective General Appearance: WD/WN Neck: supple Cardiovascular: normal rate Respiratory/Chest: chest wall non-tender, lungs clear Abdomen: normal bowel sounds, non tender, soft, no organomegaly Edema: no edema noted Arm (L), no edema noted Arm (R), no edema noted Leg (L), no edema noted Leg (R), no edema noted Pedal (L), no edema noted Pedal (R), no edema noted Generalized BONG BRUNNER Aug 03, 2017 07:41
[2017-08-03 08:00] VITALS: BP 113/67
--- NOTE | 2017-08-03 08:03 | Pulmonology Progress Note ---
Assessment/Plan Assessment/Plan pleural effusions s/p tap pulmonary infiltrates multiple abcesses paraplegia paraspinous abcess s/p tap sinus tachycardia PLAN thoracentesis completed check fluid cultures IV antibiotics noted follow up fluid cultures ID noted and reviewed awaiting disposition per CM monitor fluid status monitor oxygen needs; currently stable with management impression, plan, and exam edited and reviewed in detail care discussed with RN Subjective Allergies: Coded Allergies: CEFTRIAXONE (Verified Allergy, Intermediate, SOB, HR-140bpm, face swollen , pt became red, 10/24/15) CODEINE (Verified Allergy, Intermediate, SWELLING, 01/03/11) LATEX (Verified Allergy, Intermediate, SWELLING, 01/03/11) PIPERACILLIN (Verified Allergy, Intermediate, Itching, 08/29/15) 08/29/15 tolerates Ceftaroline TAZOBACTAM (Verified Allergy, Intermediate, Itching, 01/29/15) POLYMYXIN B (Verified Allergy, Mild, Rash, 04/08/16) Suspected allergy reported by MD VANCOMYCIN (Verified Allergy, Mild, 07/15/14) ASPARAGINASE (Verified Allergy, Unknown, 01/28/14) CEFUROXIME (Unverified Allergy, Unknown, 04/19/16) IRON (Verified Allergy, Unknown, 01/28/14) LATEX, NATURAL RUBBER (Unverified Allergy, Unknown, 06/18/16) Subjective care noted and reviewed with nursing s/p tap no sob Objective Last 24 Hour Vital Signs Date Time Temp Pulse Resp B/P (MAP) Pulse Ox O2 Delivery O2 Flow Rate FiO2 08/03/17 04:42 97.0 08/03/17 04:12 97.0 08/03/17 04:00 98.3 113 20 121/77 92 98.3 08/03/17 04:00 109 08/03/17 00:00 118 08/02/17 23:38 97.0 119 20 108/62 96 Room Air 97.0 08/02/17 22:58 97.0 08/02/17 20:00 132 08/02/17 20:00 97.0 128 18 123/67 95 Room Air 97.0 08/02/17 19:49 97.7 08/02/17 19:07 111 22 Room Air 21 08/02/17 18:50 97.7 08/02/17 17:43 97.7 08/02/17 16:21 97.7 08/02/17 16:00 97.7 120 18 108/70 95 Room Air 97.7 08/02/17 16:00 139 08/02/17 13:34 97.7 08/02/17 13:22 97.7 08/02/17 12:00 112 08/02/17 12:00 98.1 109 18 110/69 95 Room Air 98.1 08/02/17 10:15 123 20 Room Air 21 Intake and Output 08/02/17 08/03/17 19:00 07:00 Intake Total 1835 ml 240 ml Balance 1835 ml 240 ml Intake Oral 240 ml IV Total 635 ml Other 1200 ml # Voids 2 2 Objective WDWN NAD symmetric breath sounds without rhonchi or wheeze [id number] without MRG NABS nontender no HSM no CCE paraplegic Laboratory Tests 08/02/17 09:50: White Blood Count 12.4H, Red Blood Count 3.44L, Hemoglobin 8.9L, Hematocrit 28.1L, Mean Corpuscular Volume 81, Mean Corpuscular Hemoglobin 25.9L, Mean Corpuscular Hemoglobin Concent 31.8L, Red Cell Distribution Width 17.3H, Platelet Count 375, Mean Platelet Volume 7.4, Neutrophils (%) (Auto) 76.5H, Lymphocytes (%) (Auto) 16.4L, Monocytes (%) (Auto) 5.4, Eosinophils (%) (Auto) 1.2, Basophils (%) (Auto) 0.6, Prothrombin Time 12.6H, Prothromb Time International Ratio 1.2H, Activated Partial Thromboplast Time 41H, Sodium Level 130L, Potassium Level 4.8, Chloride Level 99, Carbon Dioxide Level 25, Anion Gap 6, Blood Urea Nitrogen 14, Creatinine 0.8, Estimat Glomerular Filtration Rate > 60, Glucose Level 105, Calcium Level 8.6 Current Medications Medications (Trade) Dose Ordered Sig/Pineda Route PRN Reason Start Time Stop Time Status Last Admin Dose Admin Acetaminophen (Tylenol) 650 mg Q6H PRN ORAL Mild Pain/Temp > 100.5 07/31/17 21:32 08/13/17 21:31 Albuterol Sulfate (Proventil MDI) 2 puff Q4H PRN INH Shortness of Breath 4/23/18 01:00 08/13/17 16:59 08/02/17 10:49 Chlorhexidine Gluconate (Nereida-Hex 2%) 1 applic DAILY@2000 TOPIC 08/01/17 20:00 08/15/17 19:59 08/02/17 20:16 Cyclobenzaprine HCl (Flexeril) 10 mg THREE TIMES A DAY ORAL 08/01/17 09:00 08/13/17 22:44 08/02/17 17:43 Cyclobenzaprine HCl (Flexeril) 10 mg THREE TIMES A DAY PRN ORAL Muscle Spasm 07/31/17 21:36 08/30/17 21:35 08/02/17 01:50 Daptomycin 600 mg/ Sodium Chloride 110 ml @ 220 mls/hr Q24H IV 08/02/17 11:30 08/07/17 11:29 08/02/17 13:34 Diphenhydramine HCl (Benadryl) 50 mg Q6H PRN IVP Itching 07/31/17 21:32 08/25/17 21:31 08/01/17 07:09 Escitalopram Oxalate (Lexapro) 10 mg DAILY ORAL 08/01/17 09:00 08/14/17 08:59 Heparin Sodium (Porcine) (Heparin 5000 units/ml) 5,000 units EVERY 12 HOURS SUBQ 08/01/17 09:00 08/14/17 20:59 08/01/17 20:20 Hydromorphone HCl (Dilaudid) 2 mg Q3H PRN IVP Severe Pain (Pain Scale 7-10) 07/31/17 21:33 08/07/17 21:32 08/03/17 07:45 Levofloxacin (Levaquin) 500 mg DAILY ORAL 08/02/17 09:00 08/07/17 08:59 08/02/17 09:53 Metronidazole (Flagyl) 500 mg Q8HR ORAL 08/01/17 22:00 08/07/17 21:59 08/03/17 06:31 Micafungin Sodium 100 mg/Sodium Chloride 100 ml @ 100 mls/hr Q24H IVPB 08/01/17 16:00 08/07/17 15:59 08/02/17 16:20 Minocycline HCl (Minocin) 200 mg Q12HR ORAL 08/01/17 21:00 08/07/17 20:59 08/02/17 21:23 Ondansetron HCl (Zofran) 4 mg Q4H PRN IVP Nausea & Vomiting 07/31/17 21:33 08/16/17 21:32 07/31/17 22:46 Pantoprazole (Protonix) 40 mg DAILY@0600 ORAL 08/01/17 06:00 08/14/17 05:59 08/03/17 06:31 Sodium Chloride 1,000 ml @ 75 mls/hr [id number] IV 08/01/17 14:30 08/31/17 14:29 08/03/17 06:32 LUANN MICHEL Aug 03, 2017 08:03
[2017-08-03] MEDS: Cyclobenzaprine 10mg Tab ORAL SCH ×5 (08:59→21:50)
[2017-08-03] MEDS: Levofloxacin 500mg tab ORAL SCH (08:59)
[2017-08-03] MEDS: Heparin 5000 units/ml inj SUBQ SCH ×2 (09:00→20:42)
[2017-08-03] MEDS: Minocycline HCl 50mg cap ORAL SCH ×2 (09:00→20:40)
[2017-08-03 12:00] VITALS: BP 125/83
[2017-08-03] MEDS: DAPTOMYCIN IV SCH (12:50)
[2017-08-03] MEDS: NS IV SCH (12:50)
[2017-08-03 16:00] VITALS: BP 113/64
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
[2017-08-03 20:00] VITALS: BP 109/71
[2017-08-03] MEDS: Dyna-Hex 2% Top Sol 2oz TOPIC SCH (20:19)
--- NOTE | 2017-08-03 20:37 | General Progress Note ---
Assessment/Plan Assessment/Plan Assessment - Anemia - prior negative EGD and Colonoscopy - malnutrition, low albumin - Spine osteo - paraspinous abscess - Hepatosplenomegaly, ? early portal HTN - (+) GB stones/sludge - Chronic wounds Recommendations - Push po / protein supplements - follow labs - wound care - ID f/u - monitor intake - Ensure TID PO Subjective Allergies: Coded Allergies: CEFTRIAXONE (Verified Allergy, Intermediate, SOB, HR-140bpm, face swollen , pt became red, 10/24/15) CODEINE (Verified Allergy, Intermediate, SWELLING, 01/03/11) LATEX (Verified Allergy, Intermediate, SWELLING, 01/03/11) PIPERACILLIN (Verified Allergy, Intermediate, Itching, 08/29/15) 08/29/15 tolerates Ceftaroline TAZOBACTAM (Verified Allergy, Intermediate, Itching, 01/29/15) POLYMYXIN B (Verified Allergy, Mild, Rash, 04/08/16) Suspected allergy reported by MD VANCOMYCIN (Verified Allergy, Mild, 07/15/14) ASPARAGINASE (Verified Allergy, Unknown, 01/28/14) CEFUROXIME (Unverified Allergy, Unknown, 04/19/16) IRON (Verified Allergy, Unknown, 01/28/14) LATEX, NATURAL RUBBER (Unverified Allergy, Unknown, 06/18/16) Subjective Feels OK no new complaints eating better Objective Last 24 Hour Vital Signs Date Time Temp Pulse Resp B/P (MAP) Pulse Ox O2 Delivery O2 Flow Rate FiO2 08/03/17 19:51 111 20 Room Air 21 08/03/17 16:00 117 08/03/17 16:00 97.7 111 21 113/64 96 97.7 08/03/17 12:00 117 08/03/17 12:00 97.5 122 20 125/83 97 97.5 08/03/17 08:00 120 08/03/17 08:00 97.2 115 21 113/67 97 97.2 08/03/17 07:55 108 22 Room Air 21 08/03/17 04:42 97.0 08/03/17 04:12 97.0 08/03/17 04:00 98.3 113 20 121/77 92 98.3 08/03/17 04:00 109 08/03/17 00:00 118 08/02/17 23:38 97.0 119 20 108/62 96 Room Air 97.0 08/02/17 22:58 97.0 Intake and Output 08/02/17 08/03/17 19:00 07:00 Intake Total 1835 ml 240 ml Balance 1835 ml 240 ml Intake Oral 240 ml IV Total 635 ml Other 1200 ml # Voids 2 2 Height (Feet): 5 Height (Inches): 5.00 Weight (Pounds): 198 Objective WDWN NCAT supple CTA RRR abd soft, (+) LLQ ostomy (+) paraplegia wounds noted PITER DEAN Aug 03, 2017 20:37
[2017-08-03] MEDS: DiphenhydrAMINE 50mg/ml Inj IVP PRN (20:52)
[2017-08-03] MEDS: Albuterol 90mcg Inhaler 8gm INH PRN (21:04)
[2017-08-04] VITALS: BP 111/63
[2017-08-04 04:00] VITALS: BP 110/71
[2017-08-04] MEDS: metroNIDAZOLE 500mg tab ORAL SCH ×3 (05:46→21:22)
[2017-08-04] MEDS: Cyclobenzaprine 10mg Tab ORAL SCH ×3 (05:47→21:21)
--- NOTE | 2017-08-04 07:09 | Pulmonology Progress Note ---
Assessment/Plan Assessment/Plan pleural effusions s/p tap pulmonary infiltrates multiple abcesses paraplegia paraspinous abcess s/p tap sinus tachycardia PLAN check fluid cultures monitor imaging IV antibiotics noted follow up fluid cultures ID noted and reviewed awaiting disposition per for home iv antibiotics monitor fluid status monitor oxygen needs; currently stable with management impression, plan, and exam edited and reviewed in detail care discussed with RN Subjective Allergies: Coded Allergies: CEFTRIAXONE (Verified Allergy, Intermediate, SOB, HR-140bpm, face swollen , pt became red, 10/24/15) CODEINE (Verified Allergy, Intermediate, SWELLING, 01/03/11) LATEX (Verified Allergy, Intermediate, SWELLING, 01/03/11) PIPERACILLIN (Verified Allergy, Intermediate, Itching, 08/29/15) 08/29/15 tolerates Ceftaroline TAZOBACTAM (Verified Allergy, Intermediate, Itching, 01/29/15) POLYMYXIN B (Verified Allergy, Mild, Rash, 04/08/16) Suspected allergy reported by MD VANCOMYCIN (Verified Allergy, Mild, 07/15/14) ASPARAGINASE (Verified Allergy, Unknown, 01/28/14) CEFUROXIME (Unverified Allergy, Unknown, 04/19/16) IRON (Verified Allergy, Unknown, 01/28/14) LATEX, NATURAL RUBBER (Unverified Allergy, Unknown, 06/18/16) Subjective care noted and reviewed with nursing s/p tap no sob no change overall tele noted Objective Last 24 Hour Vital Signs Date Time Temp Pulse Resp B/P (MAP) Pulse Ox O2 Delivery O2 Flow Rate FiO2 08/04/17 04:00 98.5 120 20 110/71 98 Room Air 98.5 08/04/17 04:00 115 08/04/17 00:00 97.9 122 20 111/63 96 Room Air 97.9 08/04/17 00:00 128 08/03/17 21:05 123 18 95 Room Air 21 08/03/17 21:04 123 18 93 Room Air 21 08/03/17 20:00 130 08/03/17 20:00 98.7 119 20 109/71 97 Room Air 98.7 08/03/17 19:51 111 20 Room Air 21 08/03/17 16:00 117 08/03/17 16:00 97.7 111 21 113/64 96 97.7 08/03/17 12:00 117 08/03/17 12:00 97.5 122 20 125/83 97 97.5 08/03/17 08:00 120 08/03/17 08:00 97.2 115 21 113/67 97 97.2 08/03/17 07:55 108 22 Room Air 21 Intake and Output 08/03/17 08/04/17 19:00 07:00 Intake Total 500 ml 966 ml Balance 500 ml 966 ml Intake Oral 500 ml 240 ml IV Total 726 ml # Voids 2 2 Objective WDWN NAD symmetric breath sounds without rhonchi or wheeze [id number] without MRG NABS nontender no HSM no CCE paraplegic Current Medications Medications (Trade) Dose Ordered Sig/Pineda Route PRN Reason Start Time Stop Time Status Last Admin Dose Admin Acetaminophen (Tylenol) 650 mg Q6H PRN ORAL Mild Pain/Temp > 100.5 07/31/17 21:32 08/13/17 21:31 Albuterol Sulfate (Proventil MDI) 2 puff Q4H PRN INH Shortness of Breath 08/01/17 01:00 08/13/17 16:59 08/03/17 21:04 Chlorhexidine Gluconate (Nereida-Hex 2%) 1 applic DAILY@2000 TOPIC 08/01/17 20:00 08/15/17 19:59 08/03/17 20:19 Cyclobenzaprine HCl (Flexeril) 10 mg Q8HR ORAL 08/03/17 22:00 09/02/17 21:59 08/04/17 05:47 Cyclobenzaprine HCl (Flexeril) 10 mg THREE TIMES A DAY PRN ORAL Muscle Spasm 07/31/17 21:36 08/30/17 21:35 08/02/17 01:50 Daptomycin 600 mg/ Sodium Chloride 110 ml @ 220 mls/hr Q24H IV 08/02/17 11:30 08/07/17 11:29 08/03/17 12:50 Diphenhydramine HCl (Benadryl) 50 mg Q6H PRN IVP Itching 07/31/17 21:32 08/25/17 21:31 08/03/17 20:52 Escitalopram Oxalate (Lexapro) 10 mg DAILY ORAL 08/01/17 09:00 08/14/17 08:59 Heparin Sodium (Porcine) (Heparin 5000 units/ml) 5,000 units EVERY 12 HOURS SUBQ 08/01/17 09:00 08/14/17 20:59 08/03/17 20:42 Hydromorphone HCl (Dilaudid) 2 mg Q3H PRN IVP Severe Pain (Pain Scale 7-10) 07/31/17 21:33 08/07/17 21:32 08/04/17 05:38 Levofloxacin (Levaquin) 500 mg DAILY ORAL 08/02/17 09:00 08/07/17 08:59 08/03/17 08:59 Metronidazole (Flagyl) 500 mg Q8HR ORAL 08/01/17 22:00 08/07/17 21:59 08/04/17 05:46 Micafungin Sodium 100 mg/Sodium Chloride 100 ml @ 100 mls/hr Q24H IVPB 08/01/17 16:00 08/07/17 15:59 08/03/17 17:41 Minocycline HCl (Minocin) 200 mg Q12HR ORAL 08/01/17 21:00 08/07/17 20:59 08/03/17 20:40 Ondansetron HCl (Zofran) 4 mg Q4H PRN IVP Nausea & Vomiting 07/31/17 21:33 08/16/17 21:32 07/31/17 22:46 Pantoprazole (Protonix) 40 mg DAILY@0600 ORAL 08/01/17 06:00 08/14/17 05:59 08/04/17 05:46 Sodium Chloride 1,000 ml @ 75 mls/hr [id number] IV 08/01/17 14:30 08/31/17 14:29 08/03/17 20:19 LUANN MICHEL Aug 04, 2017 07:09
--- NOTE | 2017-08-04 07:56 | General Progress Note ---
Assessment/Plan Problem List: (1) Chronic osteomyelitis of hip ICD Codes: M86.68 - Other chronic osteomyelitis, other site SNOMED: 982280287 (2) Pressure ulcer ICD Codes: L89.90 - Decubitus ulcer SNOMED: 691736976 (3) Abscess ICD Codes: L02.91 - Abscess SNOMED: 569580214 Status: stable, not improved, unchanged Assessment/Plan cont iv abx monitor hr consider adding b-bob if bp better. pain control ivf follow up echo antiemetics try lidoderm patch Subjective ROS Limited/Unobtainable: No Constitutional: Reports: malaise, weakness HEENT: Reports: no symptoms Cardiovascular: Reports: chest pain Respiratory: Reports: shortness of breath Gastrointestinal/Abdominal: Reports: no symptoms Genitourinary: Reports: no symptoms 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: Reports: pre-existing deficit Endocrine: Reports: no symptoms Hematologic/Lymphatic: Reports: anemia Allergies: Coded Allergies: CEFTRIAXONE (Verified Allergy, Intermediate, SOB, HR-140bpm, face swollen , pt became red, 10/24/15) CODEINE (Verified Allergy, Intermediate, SWELLING, 01/03/11) LATEX (Verified Allergy, Intermediate, SWELLING, 01/03/11) PIPERACILLIN (Verified Allergy, Intermediate, Itching, 08/29/15) 08/29/15 tolerates Ceftaroline TAZOBACTAM (Verified Allergy, Intermediate, Itching, 01/29/15) POLYMYXIN B (Verified Allergy, Mild, Rash, 04/08/16) Suspected allergy reported by VANCOMYCIN (Verified Allergy, Mild, 07/15/14) ASPARAGINASE (Verified Allergy, Unknown, 01/28/14) CEFUROXIME (Unverified Allergy, Unknown, 04/19/16) IRON (Verified Allergy, Unknown, 01/28/14) LATEX, NATURAL RUBBER (Unverified Allergy, Unknown, 06/18/16) Subjective no events. remains tachycardic 120s. c/o chest pain with inspiration on the left side/abd Objective Last 24 Hour Vital Signs Date Time Temp Pulse Resp B/P (MAP) Pulse Ox O2 Delivery O2 Flow Rate FiO2 08/04/17 04:00 98.5 120 20 110/71 98 Room Air 98.5 08/04/17 04:00 115 08/04/17 00:00 97.9 122 20 111/63 96 Room Air 97.9 4/26/18 00:00 128 08/03/17 21:05 123 18 95 Room Air 21 08/03/17 21:04 123 18 93 Room Air 21 08/03/17 20:00 130 08/03/17 20:00 98.7 119 20 109/71 97 Room Air 98.7 08/03/17 19:51 111 20 Room Air 21 08/03/17 16:00 117 08/03/17 16:00 97.7 111 21 113/64 96 97.7 08/03/17 12:00 117 08/03/17 12:00 97.5 122 20 125/83 97 97.5 08/03/17 08:00 120 08/03/17 08:00 97.2 115 21 113/67 97 97.2 08/03/17 07:55 108 22 Room Air 21 Intake and Output 08/03/17 08/04/17 19:00 07:00 Intake Total 500 ml 1041 ml Balance 500 ml 1041 ml Intake Oral 500 ml 240 ml IV Total 801 ml # Voids 2 2 Height (Feet): 5 Height (Inches): 5.00 Weight (Pounds): 198 Objective General Appearance: WD/WN Neck: supple Cardiovascular: normal rate Respiratory/Chest: chest wall non-tender, lungs clear Abdomen: normal bowel sounds, non tender, soft, no organomegaly Edema: no edema noted Arm (L), no edema noted Arm (R), no edema noted Leg (L), no edema noted Leg (R), no edema noted Pedal (L), no edema noted Pedal (R), no edema noted Generalized BONG BRUNNER Aug 04, 2017 07:56
[2017-08-04 08:00] VITALS: BP 115/69
[2017-08-04] MEDS: Levofloxacin 500mg tab ORAL SCH (08:55)
[2017-08-04] MEDS: DiphenhydrAMINE 50mg/ml Inj IVP PRN (08:56)
[2017-08-04] MEDS: Minocycline HCl 50mg cap ORAL SCH ×2 (08:56→21:20)
[2017-08-04] MEDS: Heparin 5000 units/ml inj SUBQ SCH ×2 (08:58→21:24)
[2017-08-04 09:05] LABS: BASOPHILS % (AUTO) 0.5 % (0.0-2.0); EOSINOPHILS % (AUTO) 1.3 % (0.0-3.0); HEMATOCRIT 28.1 % (37.0-47.0); HEMOGLOBIN 9.1 G/DL (12.0-16.0); LYMPHOCYTES % (AUTO) 16.2 % (20.0-45.0); MEAN CORPUSCULAR VOLUME 82 FL (80-99); MONOCYTES % (AUTO) 5.5 % (1.0-10.0); NEUTROPHILS % (AUTO) 76.5 % (45.0-75.0); PLATELET COUNT 375 K/UL (150-450); RED BLOOD COUNT 3.44 M/UL (4.20-5.40); RED CELL DISTRIBUTION WIDTH 17.8 % (11.6-14.8); WHITE BLOOD COUNT 11.9 K/UL (4.8-10.8)
[2017-08-04 09:26] LABS: ALANINE AMINOTRANSFERASE < 6 U/L (12-78); ALBUMIN 1.7 G/DL (3.4-5.0); ALBUMIN/GLOBULIN RATIO 0.3 (1.0-2.7); ALKALINE PHOSPHATASE 74 U/L (46-116); ANION GAP 9 mmol/L (5-15); ASPARTATE AMINO TRANSFERASE 8 U/L (15-37); BILIRUBIN,TOTAL 0.3 MG/DL (0.2-1.0); BLOOD UREA NITROGEN 17 mg/dL (7-18); CALCIUM 8.5 MG/DL (8.5-10.1); CARBON DIOXIDE 23 MMOL/L (21-32); CHLORIDE 101 MMOL/L (98-107); CREATININE 0.7 MG/DL (0.55-1.30); POTASSIUM 4.5 MMOL/L (3.5-5.1); SODIUM 133 MMOL/L (136-145)
[2017-08-04] MEDS: NS IV SCH (11:49)
[2017-08-04] MEDS: DAPTOMYCIN IV SCH (11:49)
[2017-08-04 12:00] VITALS: BP 96/59
[2017-08-04 16:00] VITALS: BP 114/65
[2017-08-04 20:00] VITALS: BP 121/74
[2017-08-04] MEDS: Albuterol 90mcg Inhaler 8gm INH PRN (20:01)
[2017-08-04] MEDS: Dyna-Hex 2% Top Sol 2oz TOPIC SCH (21:22)
--- NOTE | 2017-08-04 22:50 | General Progress Note ---
Assessment/Plan Assessment/Plan Assessment - Anemia - prior negative EGD and Colonoscopy - malnutrition, low albumin - Spine osteo - paraspinous abscess - Hepatosplenomegaly, ? early portal HTN - (+) GB stones/sludge - Chronic wounds Recommendations - Push po / protein supplements - follow labs - wound care - ID f/u - monitor intake - Ensure TID PO Subjective Allergies: Coded Allergies: CEFTRIAXONE (Verified Allergy, Intermediate, SOB, HR-140bpm, face swollen , pt became red, 10/24/15) CODEINE (Verified Allergy, Intermediate, SWELLING, 01/03/11) LATEX (Verified Allergy, Intermediate, SWELLING, 01/03/11) PIPERACILLIN (Verified Allergy, Intermediate, Itching, 08/29/15) 08/29/15 tolerates Ceftaroline TAZOBACTAM (Verified Allergy, Intermediate, Itching, 01/29/15) POLYMYXIN B (Verified Allergy, Mild, Rash, 04/08/16) Suspected allergy reported by MD VANCOMYCIN (Verified Allergy, Mild, 07/15/14) ASPARAGINASE (Verified Allergy, Unknown, 01/28/14) CEFUROXIME (Unverified Allergy, Unknown, 04/19/16) IRON (Verified Allergy, Unknown, 01/28/14) LATEX, NATURAL RUBBER (Unverified Allergy, Unknown, 06/18/16) Subjective Feels OK no new complaints eating better d/w RN Objective Last 24 Hour Vital Signs Date Time Temp Pulse Resp B/P (MAP) Pulse Ox O2 Delivery O2 Flow Rate FiO2 08/04/17 20:08 131 22 Room Air 21 08/04/17 20:06 131 22 93 Room Air 21 08/04/17 20:05 131 22 93 Room Air 21 08/04/17 16:29 98.0 08/04/17 16:00 126 08/04/17 16:00 97.9 121 20 114/65 95 Room Air 97.9 08/04/17 15:59 98.0 08/04/17 13:10 98.0 08/04/17 13:00 98.0 08/04/17 12:40 98.0 08/04/17 12:00 98.0 86 20 96/59 99 Room Air 98.0 08/04/17 12:00 87 08/04/17 08:57 98.5 08/04/17 08:00 97.3 121 20 115/69 97 Room Air 97.3 08/04/17 08:00 85 08/04/17 07:30 97 20 Room Air 21 08/04/17 04:00 98.5 120 20 110/71 98 Room Air 98.5 08/04/17 04:00 115 08/04/17 00:00 97.9 122 20 111/63 96 Room Air 97.9 08/04/17 00:00 128 Intake and Output 08/03/17 08/04/17 19:00 07:00 Intake Total 500 ml 1041 ml Balance 500 ml 1041 ml Intake Oral 500 ml 240 ml IV Total 801 ml # Voids 2 2 Laboratory Tests 08/04/17 08:53: White Blood Count 11.9H, Red Blood Count 3.44L, Hemoglobin 9.1L, Hematocrit 28.1L, Mean Corpuscular Volume 82, Mean Corpuscular Hemoglobin 26.3L, Mean Corpuscular Hemoglobin Concent 32.2, Red Cell Distribution Width 17.8H, Platelet Count 375, Mean Platelet Volume 7.2, Neutrophils (%) (Auto) 76.5H, Lymphocytes (%) (Auto) 16.2L, Monocytes (%) (Auto) 5.5, Eosinophils (%) (Auto) 1.3, Basophils (%) (Auto) 0.5, Sodium Level 133L, Potassium Level 4.5, Chloride Level 101, Carbon Dioxide Level 23, Anion Gap 9, Blood Urea Nitrogen 17, Creatinine 0.7, Estimat Glomerular Filtration Rate > 60, Glucose Level 116H, Calcium Level 8.5, Total Bilirubin 0.3, Aspartate Amino Transf (AST/SGOT) 8L, Alanine Aminotransferase (ALT/SGPT) < 6L, Alkaline Phosphatase 74, Total Protein 7.9, Albumin 1.7L, Globulin 6.2, Albumin/Globulin Ratio 0.3L Height (Feet): 5 Height (Inches): 5.00 Weight (Pounds): 198 Objective WDWN NCAT supple CTA RRR abd soft, (+) LLQ ostomy (+) paraplegia wounds noted PITER DEAN Aug 04, 2017 22:50
[2017-08-05] VITALS: BP 120/73
[2017-08-05] MEDS: DiphenhydrAMINE 50mg/ml Inj IVP PRN ×2 (02:22→08:43)
[2017-08-05] MEDS: metroNIDAZOLE 500mg tab ORAL SCH ×3 (06:22→21:44)
[2017-08-05] MEDS: Cyclobenzaprine 10mg Tab ORAL SCH ×3 (06:24→21:45)
[2017-08-05 08:00] VITALS: BP 111/73
--- NOTE | 2017-08-05 08:02 | Pulmonology Progress Note ---
Assessment/Plan Assessment/Plan pleural effusions s/p tap pulmonary infiltrates multiple abcesses paraplegia paraspinous abcess s/p tap sinus tachycardia PLAN follow up on fluid cultures monitor imaging for change IV antibiotics noted ID noted and reviewed awaiting disposition per for home iv antibiotics care reviewed monitor oxygen needs; currently stable with management impression, plan, and exam edited and reviewed in detail care discussed with RN Subjective Allergies: Coded Allergies: CEFTRIAXONE (Verified Allergy, Intermediate, SOB, HR-140bpm, face swollen , pt became red, 10/24/15) CODEINE (Verified Allergy, Intermediate, SWELLING, 01/03/11) LATEX (Verified Allergy, Intermediate, SWELLING, 01/03/11) PIPERACILLIN (Verified Allergy, Intermediate, Itching, 08/29/15) 08/29/15 tolerates Ceftaroline TAZOBACTAM (Verified Allergy, Intermediate, Itching, 01/29/15) POLYMYXIN B (Verified Allergy, Mild, Rash, 04/08/16) Suspected allergy reported by MD VANCOMYCIN (Verified Allergy, Mild, 07/15/14) ASPARAGINASE (Verified Allergy, Unknown, 01/28/14) CEFUROXIME (Unverified Allergy, Unknown, 04/19/16) IRON (Verified Allergy, Unknown, 01/28/14) LATEX, NATURAL RUBBER (Unverified Allergy, Unknown, 06/18/16) Subjective care noted and reviewed with nursing no sob no change overall tele noted Objective Last 24 Hour Vital Signs Date Time Temp Pulse Resp B/P (MAP) Pulse Ox O2 Delivery O2 Flow Rate FiO2 08/05/17 06:25 98.0 08/05/17 04:00 124 08/05/17 00:00 132 08/04/17 20:08 131 22 Room Air 21 08/04/17 20:06 131 22 93 Room Air 21 08/04/17 20:05 131 22 93 Room Air 21 08/04/17 20:00 129 08/04/17 16:29 98.0 08/04/17 16:00 126 08/04/17 16:00 97.9 121 20 114/65 95 Room Air 97.9 08/04/17 15:59 98.0 08/04/17 13:10 98.0 08/04/17 13:00 98.0 08/04/17 12:40 98.0 4/26/18 12:00 98.0 86 20 96/59 99 Room Air 98.0 08/04/17 12:00 87 08/04/17 08:57 98.5 Intake and Output 08/04/17 08/05/17 19:00 07:00 Intake Total 900 ml Balance 900 ml IV Total 900 ml # Voids 2 Objective WDWN NAD symmetric breath sounds without rhonchi or wheeze [id number] without MRG NABS nontender no HSM no CCE paraplegic Laboratory Tests 08/04/17 08:53: White Blood Count 11.9H, Red Blood Count 3.44L, Hemoglobin 9.1L, Hematocrit 28.1L, Mean Corpuscular Volume 82, Mean Corpuscular Hemoglobin 26.3L, Mean Corpuscular Hemoglobin Concent 32.2, Red Cell Distribution Width 17.8H, Platelet Count 375, Mean Platelet Volume 7.2, Neutrophils (%) (Auto) 76.5H, Lymphocytes (%) (Auto) 16.2L, Monocytes (%) (Auto) 5.5, Eosinophils (%) (Auto) 1.3, Basophils (%) (Auto) 0.5, Sodium Level 133L, Potassium Level 4.5, Chloride Level 101, Carbon Dioxide Level 23, Anion Gap 9, Blood Urea Nitrogen 17, Creatinine 0.7, Estimat Glomerular Filtration Rate > 60, Glucose Level 116H, Calcium Level 8.5, Total Bilirubin 0.3, Aspartate Amino Transf (AST/SGOT) 8L, Alanine Aminotransferase (ALT/SGPT) < 6L, Alkaline Phosphatase 74, Total Protein 7.9, Albumin 1.7L, Globulin 6.2, Albumin/Globulin Ratio 0.3L Current Medications Medications (Trade) Dose Ordered Sig/Pineda Route PRN Reason Start Time Stop Time Status Last Admin Dose Admin Acetaminophen (Tylenol) 650 mg Q6H PRN ORAL Mild Pain/Temp > 100.5 07/31/17 21:32 08/13/17 21:31 Albuterol Sulfate (Proventil MDI) 2 puff Q4H PRN INH Shortness of Breath 08/01/17 01:00 08/13/17 16:59 08/04/17 20:01 Chlorhexidine Gluconate (Nereida-Hex 2%) 1 applic DAILY@1999 TOPIC 08/01/17 20:00 08/15/17 19:59 08/04/17 21:22 Cyclobenzaprine HCl (Flexeril) 10 mg Q8HR ORAL 08/03/17 22:00 09/02/17 21:59 08/05/17 06:24 Cyclobenzaprine HCl (Flexeril) 10 mg THREE TIMES A DAY PRN ORAL Muscle Spasm 07/31/17 21:36 08/30/17 21:35 08/02/17 01:50 Daptomycin 600 mg/ Sodium Chloride 110 ml @ 220 mls/hr Q24H IV 08/02/17 11:30 08/07/17 11:29 08/04/17 11:49 Diphenhydramine HCl (Benadryl) 50 mg Q6H PRN IVP Itching 07/31/17 21:32 08/25/17 21:31 08/05/17 02:22 Escitalopram Oxalate (Lexapro) 10 mg DAILY ORAL 08/01/17 09:00 08/14/17 08:59 Heparin Sodium (Porcine) (Heparin 5000 units/ml) 5,000 units EVERY 12 HOURS SUBQ 08/01/17 09:00 08/14/17 20:59 08/04/17 21:24 Hydromorphone HCl (Dilaudid) 2 mg Q3H PRN IVP Severe Pain (Pain Scale 7-10) 07/31/17 21:33 08/07/17 21:32 08/05/17 06:25 Levofloxacin (Levaquin) 500 mg DAILY ORAL 08/02/17 09:00 08/07/17 08:59 08/04/17 08:55 Lidocaine (Lidoderm 5% PATCH) 1 patch DAILY TDERMAL 08/04/17 09:00 09/03/17 08:59 08/04/17 09:15 Metronidazole (Flagyl) 500 mg Q8HR ORAL 08/01/17 22:00 08/07/17 21:59 08/05/17 06:22 Micafungin Sodium 100 mg/Sodium Chloride 100 ml @ 100 mls/hr Q24H IVPB 08/01/17 16:00 08/07/17 15:59 08/04/17 16:00 Minocycline HCl (Minocin) 200 mg Q12HR ORAL 08/01/17 21:00 08/07/17 20:59 08/04/17 21:20 Ondansetron HCl (Zofran) 4 mg Q4H PRN IVP Nausea & Vomiting 07/31/17 21:33 08/16/17 21:32 08/04/17 15:59 Pantoprazole (Protonix) 40 mg DAILY@0600 ORAL 08/01/17 06:00 08/14/17 05:59 08/05/17 06:22 Sodium Chloride 1,000 ml @ 75 mls/hr [id number] IV 08/01/17 14:30 08/31/17 14:29 08/05/17 04:54 LUANN MICHEL Aug 05, 2017 08:02
[2017-08-05] MEDS: Heparin 5000 units/ml inj SUBQ SCH ×3 (09:00→21:00)
--- NOTE | 2017-08-05 09:11 | General Progress Note ---
Assessment/Plan Problem List: (1) Chronic osteomyelitis of hip ICD Codes: M86.68 - Other chronic osteomyelitis, other site SNOMED: 615088905 (2) Pressure ulcer ICD Codes: L89.90 - Decubitus ulcer SNOMED: 835129169 (3) Abscess ICD Codes: L02.91 - Abscess SNOMED: 178280400 Status: stable, progressing Assessment/Plan cont iv abx monitor hr add metoprolol pain control ivf follow up echo antiemetics try lidoderm patch Subjective ROS Limited/Unobtainable: No Constitutional: Reports: malaise, weakness HEENT: Reports: no symptoms Cardiovascular: Reports: no symptoms Respiratory: Reports: cough Gastrointestinal/Abdominal: Reports: nausea Genitourinary: Reports: no symptoms 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: Reports: pre-existing deficit Endocrine: Reports: no symptoms Hematologic/Lymphatic: Reports: no symptoms Allergies: Coded Allergies: CEFTRIAXONE (Verified Allergy, Intermediate, SOB, HR-140bpm, face swollen , pt became red, 10/24/15) CODEINE (Verified Allergy, Intermediate, SWELLING, 01/03/11) LATEX (Verified Allergy, Intermediate, SWELLING, 01/03/11) PIPERACILLIN (Verified Allergy, Intermediate, Itching, 08/29/15) 08/29/15 tolerates Ceftaroline TAZOBACTAM (Verified Allergy, Intermediate, Itching, 01/29/15) POLYMYXIN B (Verified Allergy, Mild, Rash, 04/08/16) Suspected allergy reported by VANCOMYCIN (Verified Allergy, Mild, 07/15/14) ASPARAGINASE (Verified Allergy, Unknown, 01/28/14) CEFUROXIME (Unverified Allergy, Unknown, 04/19/16) IRON (Verified Allergy, Unknown, 01/28/14) LATEX, NATURAL RUBBER (Unverified Allergy, Unknown, 06/18/16) All Systems: reviewed and negative except above Subjective no events. remains tachycardic 120s. still c/o chest pain . Objective Last 24 Hour Vital Signs Date Time Temp Pulse Resp B/P (MAP) Pulse Ox O2 Delivery O2 Flow Rate FiO2 08/05/17 06:25 98.0 08/05/17 04:00 124 08/05/17 00:00 98.1 134 23 120/73 97 Room Air 98.1 08/05/17 00:00 132 08/04/17 20:08 131 22 Room Air 21 08/04/17 20:06 131 22 93 Room Air 21 08/04/17 20:05 131 22 93 Room Air 21 08/04/17 20:00 98.1 131 18 121/74 94 Room Air 98.1 08/04/17 20:00 129 08/04/17 16:29 98.0 08/04/17 16:00 126 08/04/17 16:00 97.9 121 20 114/65 95 Room Air 97.9 08/04/17 15:59 98.0 08/04/17 13:10 98.0 08/04/17 13:00 98.0 08/04/17 12:40 98.0 08/04/17 12:00 98.0 86 20 96/59 99 Room Air 98.0 08/04/17 12:00 87 Intake and Output 08/04/17 08/05/17 19:00 07:00 Intake Total 900 ml 480 ml Balance 900 ml 480 ml Intake Oral 480 ml IV Total 900 ml # Voids 2 2 Height (Feet): 5 Height (Inches): 5.00 Weight (Pounds): 198 Objective General Appearance: WD/WN Neck: supple Cardiovascular: normal rate Respiratory/Chest: chest wall non-tender, lungs clear Abdomen: normal bowel sounds, non tender, soft, no organomegaly Edema: no edema noted Arm (L), no edema noted Arm (R), no edema noted Leg (L), no edema noted Leg (R), no edema noted Pedal (L), no edema noted Pedal (R), no edema noted Generalized BONG BRUNNER Aug 05, 2017 09:11
[2017-08-05] MEDS: Levofloxacin 500mg tab ORAL SCH (09:29)
[2017-08-05] MEDS: Minocycline HCl 50mg cap ORAL SCH ×2 (09:30→21:43)
[2017-08-05] MEDS: Metoprolol Tartrate 12.5mg TAB ORAL SCH ×2 (09:37→21:00)
[2017-08-05] MEDS ORDERED: Tubing IV Secondary IV ONE (11:04)
[2017-08-05] MEDS: DAPTOMYCIN IV SCH (11:25)
[2017-08-05] MEDS: NS IV SCH (11:25)
[2017-08-05 12:00] VITALS: BP 106/69
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
[2017-08-05 16:00] VITALS: BP 116/75
--- NOTE | 2017-08-05 18:25 | General Progress Note ---
Assessment/Plan Assessment/Plan Assessment - Anemia - prior negative EGD and Colonoscopy - malnutrition, low albumin - Spine osteo - paraspinous abscess - Hepatosplenomegaly, ? early portal HTN - (+) GB stones/sludge - Chronic wounds Recommendations - Push po / protein supplements - follow labs - wound care - ID f/u - monitor intake - Ensure TID PO Subjective Allergies: Coded Allergies: CEFTRIAXONE (Verified Allergy, Intermediate, SOB, HR-140bpm, face swollen , pt became red, 10/24/15) CODEINE (Verified Allergy, Intermediate, SWELLING, 01/03/11) LATEX (Verified Allergy, Intermediate, SWELLING, 01/03/11) PIPERACILLIN (Verified Allergy, Intermediate, Itching, 08/29/15) 08/29/15 tolerates Ceftaroline TAZOBACTAM (Verified Allergy, Intermediate, Itching, 01/29/15) POLYMYXIN B (Verified Allergy, Mild, Rash, 04/08/16) Suspected allergy reported by MD VANCOMYCIN (Verified Allergy, Mild, 07/15/14) ASPARAGINASE (Verified Allergy, Unknown, 01/28/14) CEFUROXIME (Unverified Allergy, Unknown, 04/19/16) IRON (Verified Allergy, Unknown, 01/28/14) LATEX, NATURAL RUBBER (Unverified Allergy, Unknown, 06/18/16) Subjective Feels OK no new complaints sleepy d/w RN Objective Last 24 Hour Vital Signs Date Time Temp Pulse Resp B/P (MAP) Pulse Ox O2 Delivery O2 Flow Rate FiO2 08/05/17 16:00 98.0 115 18 116/75 95 Room Air 98.0 08/05/17 16:00 116 08/05/17 13:20 98.1 08/05/17 12:00 98.5 112 18 106/69 95 Room Air 98.5 08/05/17 12:00 111 08/05/17 09:37 118 111/73 08/05/17 08:32 115 20 Room Air 21 08/05/17 08:00 119 08/05/17 08:00 98.1 118 18 111/73 95 Room Air 98.1 08/05/17 06:25 98.0 08/05/17 04:00 124 08/05/17 00:00 98.1 134 23 120/73 97 Room Air 98.1 08/05/17 00:00 132 08/04/17 20:08 131 22 Room Air 21 08/04/17 20:06 131 22 93 Room Air 21 08/04/17 20:05 131 22 93 Room Air 21 08/04/17 20:00 98.1 131 18 121/74 94 Room Air 98.1 08/04/17 20:00 129 Intake and Output 08/04/17 08/05/17 19:00 07:00 Intake Total 900 ml 480 ml Balance 900 ml 480 ml Intake Oral 480 ml IV Total 900 ml # Voids 2 2 Height (Feet): 5 Height (Inches): 5.00 Weight (Pounds): 198 Objective WDWN NCAT supple CTA RRR abd soft, (+) LLQ ostomy (+) paraplegia wounds noted PITER DEAN Aug 05, 2017 18:25
[2017-08-05 20:00] VITALS: BP 115/74
[2017-08-05] MEDS: Dyna-Hex 2% Top Sol 2oz TOPIC SCH (22:17)
[2017-08-06] VITALS: BP 114/69
[2017-08-06 04:00] VITALS: BP 119/79
[2017-08-06] MEDS: metroNIDAZOLE 500mg tab ORAL SCH ×3 (06:36→21:37)
[2017-08-06] MEDS: Cyclobenzaprine 10mg Tab ORAL SCH ×3 (06:37→21:37)
[2017-08-06 08:00] VITALS: BP 126/76
[2017-08-06 08:10] LABS: BASOPHILS % (AUTO) 0.5 % (0.0-2.0); EOSINOPHILS % (AUTO) 1.1 % (0.0-3.0); HEMATOCRIT 26.9 % (37.0-47.0); HEMOGLOBIN 8.8 G/DL (12.0-16.0); LYMPHOCYTES % (AUTO) 15.3 % (20.0-45.0); MEAN CORPUSCULAR VOLUME 83 FL (80-99); MONOCYTES % (AUTO) 5.7 % (1.0-10.0); NEUTROPHILS % (AUTO) 77.5 % (45.0-75.0); PLATELET COUNT 360 K/UL (150-450); RED BLOOD COUNT 3.24 M/UL (4.20-5.40); RED CELL DISTRIBUTION WIDTH 17.5 % (11.6-14.8); WHITE BLOOD COUNT 12.1 K/UL (4.8-10.8)
[2017-08-06 08:33] LABS: ALANINE AMINOTRANSFERASE < 6 U/L (12-78); ALBUMIN 1.7 G/DL (3.4-5.0); ALBUMIN/GLOBULIN RATIO 0.3 (1.0-2.7); ALKALINE PHOSPHATASE 79 U/L (46-116); ANION GAP 8 mmol/L (5-15); ASPARTATE AMINO TRANSFERASE 7 U/L (15-37); BILIRUBIN,TOTAL 0.3 MG/DL (0.2-1.0); BLOOD UREA NITROGEN 15 mg/dL (7-18); CALCIUM 8.7 MG/DL (8.5-10.1); CARBON DIOXIDE 25 MMOL/L (21-32); CHLORIDE 99 MMOL/L (98-107); CREATININE 0.8 MG/DL (0.55-1.30); SODIUM 132 MMOL/L (136-145)
[2017-08-06 08:35] LABS: CREATINE KINASE 10 U/L (26-308)
[2017-08-06] MEDS: Heparin 5000 units/ml inj SUBQ SCH ×2 (09:00→21:22)
[2017-08-06] MEDS: Levofloxacin 500mg tab ORAL SCH (09:23)
[2017-08-06] MEDS: Minocycline HCl 50mg cap ORAL SCH ×2 (09:23→21:16)
[2017-08-06] MEDS: Metoprolol Tartrate 12.5mg TAB ORAL SCH ×2 (09:24→21:17)
--- NOTE | 2017-08-06 10:11 | Pulmonology Progress Note ---
Assessment/Plan Assessment/Plan pleural effusions s/p tap pulmonary infiltrates multiple abcesses paraplegia paraspinous abcess s/p tap sinus tachycardia PLAN follow up on fluid cultures- thus far negative monitor imaging for change IV antibiotics noted and reviewed ID noted and reviewed awaiting disposition per for home iv antibiotics supportive care tap prn monitor oxygen needs; currently stable with management impression, plan, and exam edited and reviewed in detail care discussed with RN Subjective Allergies: Coded Allergies: CEFTRIAXONE (Verified Allergy, Intermediate, SOB, HR-140bpm, face swollen , pt became red, 10/24/15) CODEINE (Verified Allergy, Intermediate, SWELLING, 01/03/11) LATEX (Verified Allergy, Intermediate, SWELLING, 01/03/11) PIPERACILLIN (Verified Allergy, Intermediate, Itching, 08/29/15) 08/29/15 tolerates Ceftaroline TAZOBACTAM (Verified Allergy, Intermediate, Itching, 01/29/15) POLYMYXIN B (Verified Allergy, Mild, Rash, 04/08/16) Suspected allergy reported by MD VANCOMYCIN (Verified Allergy, Mild, 07/15/14) ASPARAGINASE (Verified Allergy, Unknown, 01/28/14) CEFUROXIME (Unverified Allergy, Unknown, 04/19/16) IRON (Verified Allergy, Unknown, 01/28/14) LATEX, NATURAL RUBBER (Unverified Allergy, Unknown, 06/18/16) Subjective care noted and reviewed with nursing no sob or cp MD notes reviewed tele noted Objective Last 24 Hour Vital Signs Date Time Temp Pulse Resp B/P (MAP) Pulse Ox O2 Delivery O2 Flow Rate FiO2 08/06/17 09:24 97 126/76 08/06/17 09:24 98.2 08/06/17 07:42 122 20 Room Air 21 08/06/17 04:51 98.2 08/06/17 04:00 123 08/06/17 04:00 98.2 119 20 119/79 97 Room Air 98.2 08/06/17 00:00 97.5 116 20 114/69 97 Room Air 97.5 08/06/17 00:00 119 08/05/17 21:00 116 115/74 08/05/17 20:00 98.2 116 20 115/74 96 Room Air 98.2 08/05/17 20:00 124 08/05/17 19:10 102 22 Room Air 21 08/05/17 16:00 98.0 115 18 116/75 95 Room Air 98.0 08/05/17 16:00 116 08/05/17 12:00 98.5 112 18 106/69 95 Room Air 98.5 08/05/17 12:00 111 Intake and Output 08/05/17 08/06/17 19:00 07:00 Intake Total 240 ml 1440 ml Balance 240 ml 1440 ml Intake Oral 240 ml 240 ml Other 1200 ml # Voids 3 3 # Bowel Movements 1 Objective WDWN NAD symmetric breath sounds without rhonchi or wheeze [id number] without MRG NABS nontender no HSM no CCE paraplegic Laboratory Tests 08/06/17 07:37: White Blood Count 12.1H, Red Blood Count 3.24L, Hemoglobin 8.8L, Hematocrit 26.9L, Mean Corpuscular Volume 83, Mean Corpuscular Hemoglobin 27.1, Mean Corpuscular Hemoglobin Concent 32.7, Red Cell Distribution Width 17.5H, Platelet Count 360, Mean Platelet Volume 7.2, Neutrophils (%) (Auto) 77.5H, Lymphocytes (%) (Auto) 15.3L, Monocytes (%) (Auto) 5.7, Eosinophils (%) (Auto) 1.1, Basophils (%) (Auto) 0.5, Sodium Level 132L, Potassium Level 4.0, Chloride Level 99, Carbon Dioxide Level 25, Anion Gap 8, Blood Urea Nitrogen 15, Creatinine 0.8, Estimat Glomerular Filtration Rate > 60, Glucose Level 161H, Calcium Level 8.7, Total Bilirubin 0.3, Aspartate Amino Transf (AST/SGOT) 7L, Alanine Aminotransferase (ALT/SGPT) < 6L, Alkaline Phosphatase 79, Total Creatine Kinase 10L, Total Protein 7.9, Albumin 1.7L, Globulin 6.2, Albumin/ Globulin Ratio 0.3L Current Medications Medications (Trade) Dose Ordered Sig/Pineda Route PRN Reason Start Time Stop Time Status Last Admin Dose Admin Acetaminophen (Tylenol) 650 mg Q6H PRN ORAL Mild Pain/Temp > 100.5 07/31/17 21:32 08/13/17 21:31 Albuterol Sulfate (Proventil MDI) 2 puff Q4H PRN INH Shortness of Breath 08/01/17 01:00 08/13/17 16:59 08/04/17 20:01 Chlorhexidine Gluconate (Nereida-Hex 2%) 1 applic DAILY@2000 TOPIC 08/01/17 20:00 08/15/17 19:59 08/05/17 22:17 Cyclobenzaprine HCl (Flexeril) 10 mg Q8HR ORAL 08/03/17 22:00 09/02/17 21:59 08/06/17 06:37 Cyclobenzaprine HCl (Flexeril) 10 mg THREE TIMES A DAY PRN ORAL Muscle Spasm 07/31/17 21:36 08/30/17 21:35 08/02/17 01:50 Daptomycin 600 mg/ Sodium Chloride 110 ml @ 220 mls/hr Q24H IV 08/06/17 18:00 08/13/17 17:59 Diphenhydramine HCl (Benadryl) 50 mg Q6H PRN IVP Itching 07/31/17 21:32 08/25/17 21:31 08/05/17 08:43 Escitalopram Oxalate (Lexapro) 10 mg DAILY ORAL 08/01/17 09:00 08/14/17 08:59 08/05/17 09:29 Heparin Sodium (Porcine) (Heparin 5000 units/ml) 5,000 units EVERY 12 HOURS SUBQ 08/01/17 09:00 08/14/17 20:59 08/04/17 21:24 Hydromorphone HCl (Dilaudid) 2 mg Q3H PRN IVP Severe Pain (Pain Scale 7-10) 07/31/17 21:33 08/07/17 21:32 08/06/17 09:24 Levofloxacin (Levaquin) 500 mg DAILY ORAL 08/02/17 09:00 08/07/17 08:59 08/06/17 09:23 Lidocaine (Lidoderm 5% PATCH) 1 patch DAILY TDERMAL 08/04/17 09:00 09/03/17 08:59 08/05/17 09:30 Metoprolol Tartrate (Lopressor) 12.5 mg Q12HR ORAL 08/05/17 09:15 09/04/17 09:14 08/06/17 09:24 Metronidazole (Flagyl) 500 mg Q8HR ORAL 08/01/17 22:00 08/07/17 21:59 08/06/17 06:36 Micafungin Sodium 100 mg/Sodium Chloride 100 ml @ 100 mls/hr Q24H IVPB 08/01/17 16:00 08/07/17 15:59 08/05/17 15:22 Minocycline HCl (Minocin) 200 mg Q12HR ORAL 08/01/17 21:00 08/07/17 20:59 08/06/17 09:23 Ondansetron HCl (Zofran) 4 mg Q4H PRN IVP Nausea & Vomiting 07/31/17 21:33 08/16/17 21:32 08/04/17 15:59 Pantoprazole (Protonix) 40 mg DAILY@0600 ORAL 08/01/17 06:00 08/14/17 05:59 08/06/17 06:37 Sodium Chloride 1,000 ml @ 75 mls/hr [id number] IV 08/01/17 14:30 08/31/17 14:29 08/05/17 21:55 LUANN MICHEL Aug 06, 2017 10:11
[2017-08-06 12:00] VITALS: BP 129/84
--- NOTE | 2017-08-06 12:22 | General Progress Note ---
Assessment/Plan Problem List: (1) Chronic osteomyelitis of hip ICD Codes: M86.68 - Other chronic osteomyelitis, other site SNOMED: 381286227 (2) Pressure ulcer ICD Codes: L89.90 - Decubitus ulcer SNOMED: 003830263 (3) Abscess ICD Codes: L02.91 - Abscess SNOMED: 203422829 Status: progressing Assessment/Plan cont iv abx monitor hr metoprolol- titrate pain control ivf follow up echo antiemetics try lidoderm patch Subjective ROS Limited/Unobtainable: No Constitutional: Reports: malaise, weakness HEENT: Reports: no symptoms Cardiovascular: Reports: chest pain Respiratory: Reports: cough, shortness of breath Gastrointestinal/Abdominal: Reports: no symptoms Genitourinary: Reports: no symptoms 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: Reports: pre-existing deficit Endocrine: Reports: no symptoms Hematologic/Lymphatic: Reports: no symptoms Allergies: Coded Allergies: CEFTRIAXONE (Verified Allergy, Intermediate, SOB, HR-140bpm, face swollen , pt became red, 10/24/15) CODEINE (Verified Allergy, Intermediate, SWELLING, 01/03/11) LATEX (Verified Allergy, Intermediate, SWELLING, 01/03/11) PIPERACILLIN (Verified Allergy, Intermediate, Itching, 08/29/15) 08/29/15 tolerates Ceftaroline TAZOBACTAM (Verified Allergy, Intermediate, Itching, 01/29/15) POLYMYXIN B (Verified Allergy, Mild, Rash, 04/08/16) Suspected allergy reported by VANCOMYCIN (Verified Allergy, Mild, 07/15/14) ASPARAGINASE (Verified Allergy, Unknown, 01/28/14) CEFUROXIME (Unverified Allergy, Unknown, 04/19/16) IRON (Verified Allergy, Unknown, 01/28/14) LATEX, NATURAL RUBBER (Unverified Allergy, Unknown, 06/18/16) Subjective no events. remains tachycardic 120s overnight. high 90s this am. still c/o chest pain . Objective Last 24 Hour Vital Signs Date Time Temp Pulse Resp B/P (MAP) Pulse Ox O2 Delivery O2 Flow Rate FiO2 08/06/17 09:54 98.2 08/06/17 09:24 97 126/76 08/06/17 09:24 98.2 08/06/17 08:00 98.2 97 20 126/76 97 Room Air 21 98.2 4/28/18 08:00 122 08/06/17 07:42 122 20 Room Air 21 08/06/17 04:00 123 08/06/17 04:00 98.2 119 20 119/79 97 Room Air 98.2 08/06/17 00:00 97.5 116 20 114/69 97 Room Air 97.5 08/06/17 00:00 119 08/05/17 21:00 116 115/74 08/05/17 20:00 98.2 116 20 115/74 96 Room Air 98.2 08/05/17 20:00 124 08/05/17 19:10 102 22 Room Air 21 08/05/17 16:00 98.0 115 18 116/75 95 Room Air 98.0 08/05/17 16:00 116 Intake and Output 08/05/17 08/06/17 19:00 07:00 Intake Total 240 ml 1440 ml Balance 240 ml 1440 ml Intake Oral 240 ml 240 ml Other 1200 ml # Voids 3 3 # Bowel Movements 1 Laboratory Tests 08/06/17 07:37: White Blood Count 12.1H, Red Blood Count 3.24L, Hemoglobin 8.8L, Hematocrit 26.9L, Mean Corpuscular Volume 83, Mean Corpuscular Hemoglobin 27.1, Mean Corpuscular Hemoglobin Concent 32.7, Red Cell Distribution Width 17.5H, Platelet Count 360, Mean Platelet Volume 7.2, Neutrophils (%) (Auto) 77.5H, Lymphocytes (%) (Auto) 15.3L, Monocytes (%) (Auto) 5.7, Eosinophils (%) (Auto) 1.1, Basophils (%) (Auto) 0.5, Sodium Level 132L, Potassium Level 4.0, Chloride Level 99, Carbon Dioxide Level 25, Anion Gap 8, Blood Urea Nitrogen 15, Creatinine 0.8, Estimat Glomerular Filtration Rate > 60, Glucose Level 161H, Calcium Level 8.7, Total Bilirubin 0.3, Aspartate Amino Transf (AST/SGOT) 7L, Alanine Aminotransferase (ALT/SGPT) < 6L, Alkaline Phosphatase 79, Total Creatine Kinase 10L, Total Protein 7.9, Albumin 1.7L, Globulin 6.2, Albumin/ Globulin Ratio 0.3L Height (Feet): 5 Height (Inches): 5.00 Weight (Pounds): 198 Objective General Appearance: WD/WN Neck: supple Cardiovascular: normal rate Respiratory/Chest: chest wall non-tender, lungs clear Abdomen: normal bowel sounds, non tender, soft, no organomegaly Edema: no edema noted Arm (L), no edema noted Arm (R), no edema noted Leg (L), no edema noted Leg (R), no edema noted Pedal (L), no edema noted Pedal (R), no edema noted Generalized BONG BRUNNER Aug 06, 2017 12:22
[2017-08-06] MEDS: DiphenhydrAMINE 50mg/ml Inj IVP PRN (15:16)
[2017-08-06 16:00] VITALS: BP 118/85
[2017-08-06] MEDS: Albuterol 90mcg Inhaler 8gm INH PRN (17:38)
[2017-08-06] MEDS ORDERED: DAPTOMYCIN IV SCH (18:00)
[2017-08-06] MEDS ORDERED: NS IV SCH (18:00)
[2017-08-06 20:00] VITALS: BP 102/70
[2017-08-06] MEDS: Dyna-Hex 2% Top Sol 2oz TOPIC SCH (20:00)
[2017-08-07] VITALS: BP 114/75
[2017-08-07 04:00] VITALS: BP 109/73
[2017-08-07] MEDS: metroNIDAZOLE 500mg tab ORAL SCH ×2 (05:43→13:46)
[2017-08-07] MEDS: Cyclobenzaprine 10mg Tab ORAL SCH ×3 (05:44→21:46)
--- NOTE | 2017-08-07 07:21 | Pulmonology Progress Note ---
Assessment/Plan Assessment/Plan pleural effusions s/p tap pulmonary infiltrates multiple abcesses paraplegia paraspinous abcess s/p tap sinus tachycardia PLAN pain control monitor imaging for change monitor oxygen needs IV antibiotics noted and reviewed ID noted and reviewed awaiting disposition per for home iv antibiotics supportive care meds noted tap prn monitor oxygen needs; currently stable with management impression, plan, and exam edited and reviewed in detail care discussed with RN Subjective Allergies: Coded Allergies: CEFTRIAXONE (Verified Allergy, Intermediate, SOB, HR-140bpm, face swollen , pt became red, 10/24/15) CODEINE (Verified Allergy, Intermediate, SWELLING, 01/03/11) LATEX (Verified Allergy, Intermediate, SWELLING, 01/03/11) PIPERACILLIN (Verified Allergy, Intermediate, Itching, 08/29/15) 08/29/15 tolerates Ceftaroline TAZOBACTAM (Verified Allergy, Intermediate, Itching, 01/29/15) POLYMYXIN B (Verified Allergy, Mild, Rash, 04/08/16) Suspected allergy reported by MD VANCOMYCIN (Verified Allergy, Mild, 07/15/14) ASPARAGINASE (Verified Allergy, Unknown, 01/28/14) CEFUROXIME (Unverified Allergy, Unknown, 04/19/16) IRON (Verified Allergy, Unknown, 01/28/14) LATEX, NATURAL RUBBER (Unverified Allergy, Unknown, 06/18/16) Subjective care noted and reviewed with nursing no sob or cp still with chronic pain MD notes reviewed tele noted Objective Last 24 Hour Vital Signs Date Time Temp Pulse Resp B/P (MAP) Pulse Ox O2 Delivery O2 Flow Rate FiO2 08/07/17 04:00 98.5 110 17 109/73 95 Room Air 21 98.5 110 08/07/17 04:00 106 08/07/17 00:00 118 08/07/17 00:00 97.9 114 16 114/75 96 Room Air 21 97.9 08/06/17 21:17 112 102/70 08/06/17 20:00 98.4 110 16 102/70 98 Room Air 21 98.4 112 08/06/17 20:00 118 08/06/17 19:32 98.2 08/06/17 19:20 108 22 Room Air 21 08/06/17 19:02 98.2 08/06/17 17:39 110 20 96 Room Air 21 08/06/17 17:36 110 21 96 Room Air 21 08/06/17 16:01 98.2 08/06/17 16:00 115 08/06/17 16:00 97.6 110 20 118/85 97 Room Air 21 97.6 08/06/17 15:15 98.2 08/06/17 13:06 98.2 08/06/17 12:36 98.2 08/06/17 12:00 113 08/06/17 12:00 98.2 110 20 129/84 97 Room Air 21 98.2 08/06/17 09:24 97 126/76 08/06/17 09:24 98.2 08/06/17 08:00 98.2 97 20 126/76 97 Room Air 21 98.2 08/06/17 08:00 122 08/06/17 07:42 122 20 Room Air 21 Intake and Output 08/06/17 08/07/17 19:00 07:00 Intake Total 1185 ml 825 ml Balance 1185 ml 825 ml Intake Oral 960 ml IV Total 225 ml 825 ml # Voids 5 1 Objective WDWN NAD symmetric breath sounds without rhonchi or wheeze [id number] without MRG NABS nontender no HSM no CCE paraplegic Laboratory Tests 08/06/17 07:37: White Blood Count 12.1H, Red Blood Count 3.24L, Hemoglobin 8.8L, Hematocrit 26.9L, Mean Corpuscular Volume 83, Mean Corpuscular Hemoglobin 27.1, Mean Corpuscular Hemoglobin Concent 32.7, Red Cell Distribution Width 17.5H, Platelet Count 360, Mean Platelet Volume 7.2, Neutrophils (%) (Auto) 77.5H, Lymphocytes (%) (Auto) 15.3L, Monocytes (%) (Auto) 5.7, Eosinophils (%) (Auto) 1.1, Basophils (%) (Auto) 0.5, Sodium Level 132L, Potassium Level 4.0, Chloride Level 99, Carbon Dioxide Level 25, Anion Gap 8, Blood Urea Nitrogen 15, Creatinine 0.8, Estimat Glomerular Filtration Rate > 60, Glucose Level 161H, Calcium Level 8.7, Total Bilirubin 0.3, Aspartate Amino Transf (AST/SGOT) 7L, Alanine Aminotransferase (ALT/SGPT) < 6L, Alkaline Phosphatase 79, Total Creatine Kinase 10L, Total Protein 7.9, Albumin 1.7L, Globulin 6.2, Albumin/ Globulin Ratio 0.3L Current Medications Medications (Trade) Dose Ordered Sig/Pineda Route PRN Reason Start Time Stop Time Status Last Admin Dose Admin Acetaminophen (Tylenol) 650 mg Q6H PRN ORAL Mild Pain/Temp > 100.5 07/31/17 21:32 08/13/17 21:31 Albuterol Sulfate (Proventil MDI) 2 puff Q4H PRN INH Shortness of Breath 08/01/17 01:00 08/13/17 16:59 08/06/17 17:38 Chlorhexidine Gluconate (Nereida-Hex 2%) 1 applic DAILY@1999 TOPIC 08/01/17 20:00 08/15/17 19:59 08/06/17 20:00 Cyclobenzaprine HCl (Flexeril) 10 mg Q8HR ORAL 08/03/17 22:00 09/02/17 21:59 08/07/17 05:44 Cyclobenzaprine HCl (Flexeril) 10 mg THREE TIMES A DAY PRN ORAL Muscle Spasm 07/31/17 21:36 08/30/17 21:35 08/02/17 01:50 Daptomycin 600 mg/ Sodium Chloride 110 ml @ 220 mls/hr Q24H IV 08/06/17 18:00 08/13/17 17:59 08/06/17 18:33 Diphenhydramine HCl (Benadryl) 50 mg Q6H PRN IVP Itching 07/31/17 21:32 08/25/17 21:31 08/06/17 15:16 Escitalopram Oxalate (Lexapro) 10 mg DAILY ORAL 08/01/17 09:00 08/14/17 08:59 08/05/17 09:29 Heparin Sodium (Porcine) (Heparin 5000 units/ml) 5,000 units EVERY 12 HOURS SUBQ 08/01/17 09:00 08/14/17 20:59 08/06/17 21:22 Hydromorphone HCl (Dilaudid) 2 mg Q3H PRN IVP Severe Pain (Pain Scale 7-10) 07/31/17 21:33 08/07/17 21:32 08/07/17 06:21 Levofloxacin (Levaquin) 500 mg DAILY ORAL 08/02/17 09:00 08/07/17 08:59 08/06/17 09:23 Lidocaine (Lidoderm 5% PATCH) 1 patch DAILY TDERMAL 08/04/17 09:00 09/03/17 08:59 08/05/17 09:30 Metoprolol Tartrate (Lopressor) 12.5 mg Q12HR ORAL 08/05/17 09:15 09/04/17 09:14 08/06/17 21:17 Metronidazole (Flagyl) 500 mg Q8HR ORAL 08/01/17 22:00 08/07/17 21:59 08/07/17 05:43 Micafungin Sodium 100 mg/Sodium Chloride 100 ml @ 100 mls/hr Q24H IVPB 08/01/17 16:00 08/07/17 15:59 08/06/17 16:16 Minocycline HCl (Minocin) 200 mg Q12HR ORAL 08/01/17 21:00 08/07/17 20:59 08/06/17 21:16 Ondansetron HCl (Zofran) 4 mg Q4H PRN IVP Nausea & Vomiting 07/31/17 21:33 08/16/17 21:32 08/04/17 15:59 Pantoprazole (Protonix) 40 mg DAILY@0600 ORAL 08/01/17 06:00 08/14/17 05:59 08/07/17 05:44 Sodium Chloride 1,000 ml @ 75 mls/hr [id number] IV 08/01/17 14:30 08/31/17 14:29 08/06/17 15:16 LUANN MICHEL Aug 07, 2017 07:21
[2017-08-07 08:00] VITALS: BP 118/76
[2017-08-07] MEDS: Minocycline HCl 50mg cap ORAL SCH (08:50)
[2017-08-07] MEDS: Metoprolol Tartrate 12.5mg TAB ORAL SCH (08:51)
[2017-08-07] MEDS: Heparin 5000 units/ml inj SUBQ SCH ×2 (08:52→20:31)
--- NOTE | 2017-08-07 11:05 | General Progress Note ---
Assessment/Plan Problem List: (1) Chronic osteomyelitis of hip ICD Codes: M86.68 - Other chronic osteomyelitis, other site SNOMED: 255091006 (2) Pressure ulcer ICD Codes: L89.90 - Decubitus ulcer SNOMED: 179556437 (3) Abscess ICD Codes: L02.91 - Abscess SNOMED: 830237765 Status: not improved, unchanged Assessment/Plan cont iv abx monitor hr metoprolol- titrate up pain control ivf follow up echo antiemetics try lidoderm patch Subjective ROS Limited/Unobtainable: No Constitutional: Reports: malaise, weakness HEENT: Reports: no symptoms Cardiovascular: Reports: chest pain Respiratory: Reports: shortness of breath Gastrointestinal/Abdominal: Reports: nausea Genitourinary: Reports: no symptoms 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: Reports: pre-existing deficit Endocrine: Reports: no symptoms Hematologic/Lymphatic: Reports: no symptoms Allergies: Coded Allergies: CEFTRIAXONE (Verified Allergy, Intermediate, SOB, HR-140bpm, face swollen , pt became red, 10/24/15) CODEINE (Verified Allergy, Intermediate, SWELLING, 01/03/11) LATEX (Verified Allergy, Intermediate, SWELLING, 01/03/11) PIPERACILLIN (Verified Allergy, Intermediate, Itching, 08/29/15) 08/29/15 tolerates Ceftaroline TAZOBACTAM (Verified Allergy, Intermediate, Itching, 01/29/15) POLYMYXIN B (Verified Allergy, Mild, Rash, 04/08/16) Suspected allergy reported by VANCOMYCIN (Verified Allergy, Mild, 07/15/14) ASPARAGINASE (Verified Allergy, Unknown, 01/28/14) CEFUROXIME (Unverified Allergy, Unknown, 04/19/16) IRON (Verified Allergy, Unknown, 01/28/14) LATEX, NATURAL RUBBER (Unverified Allergy, Unknown, 06/18/16) All Systems: reviewed and negative except above Subjective slightly less tachycardic. left sided pleuritic chest pain on iv abx. no fevers. Objective Last 24 Hour Vital Signs Date Time Temp Pulse Resp B/P (MAP) Pulse Ox O2 Delivery O2 Flow Rate FiO2 08/07/17 08:51 117 118/76 08/07/17 08:00 98.2 16 118/76 95 Room Air 98.2 08/07/17 08:00 114 08/07/17 04:00 98.5 110 17 109/73 95 Room Air 21 98.5 110 08/07/17 04:00 106 08/07/17 00:00 118 08/07/17 00:00 97.9 114 16 114/75 96 Room Air 21 97.9 08/06/17 21:17 112 102/70 08/06/17 20:00 98.4 110 16 102/70 98 Room Air 21 98.4 112 08/06/17 20:00 118 08/06/17 19:32 98.2 08/06/17 19:20 108 22 Room Air 21 08/06/17 19:02 98.2 08/06/17 17:39 110 20 96 Room Air 21 08/06/17 17:36 110 21 96 Room Air 21 08/06/17 16:01 98.2 08/06/17 16:00 115 08/06/17 16:00 97.6 110 20 118/85 97 Room Air 21 97.6 08/06/17 15:15 98.2 08/06/17 13:06 98.2 08/06/17 12:36 98.2 08/06/17 12:00 113 08/06/17 12:00 98.2 110 20 129/84 97 Room Air 21 98.2 Intake and Output 08/06/17 08/07/17 19:00 07:00 Intake Total 1185 ml 825 ml Balance 1185 ml 825 ml Intake Oral 960 ml IV Total 225 ml 825 ml # Voids 5 1 Height (Feet): 5 Height (Inches): 5.00 Weight (Pounds): 198 Objective General Appearance: WD/WN Neck: supple Cardiovascular: normal rate Respiratory/Chest: chest wall non-tender, lungs clear Abdomen: normal bowel sounds, non tender, soft, no organomegaly Edema: no edema noted Arm (L), no edema noted Arm (R), no edema noted Leg (L), no edema noted Leg (R), no edema noted Pedal (L), no edema noted Pedal (R), no edema noted Generalized BONG BRUNNER Aug 07, 2017 11:05
[2017-08-07 12:00] VITALS: BP 110/70
[2017-08-07 16:00] VITALS: BP 124/80
--- NOTE | 2017-08-07 17:32 | Cardiology Report ---
APPROVED REPORT EKG Measurement Heart [id number] [id number] Sinus tachycardia Left posterior fascicular block T wave abnormality, consider inferior ischemia Abnormal ECG
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
[2017-08-07 20:00] VITALS: BP 117/65
[2017-08-07] MEDS: Dyna-Hex 2% Top Sol 2oz TOPIC SCH (20:12)
[2017-08-07] MEDS: DiphenhydrAMINE 50mg/ml Inj IVP PRN (20:12)
[2017-08-07] MEDS: DAPTOMYCIN IV SCH (20:12)
[2017-08-07] MEDS: NS IV SCH (20:12)
[2017-08-07] MEDS: Metoprolol 25mg tab ORAL SCH (20:30)
[2017-08-08] VITALS: BP 106/67
[2017-08-08 04:00] VITALS: BP 116/68
[2017-08-08] MEDS: DiphenhydrAMINE 50mg/ml Inj IVP PRN ×2 (05:23→20:33)
[2017-08-08] MEDS: Cyclobenzaprine 10mg Tab ORAL SCH ×3 (05:59→22:13)
[2017-08-08 08:00] VITALS: BP 124/78
--- NOTE | 2017-08-08 08:04 | General Progress Note ---
Assessment/Plan Problem List: (1) Chronic osteomyelitis of hip ICD Codes: M86.68 - Other chronic osteomyelitis, other site SNOMED: 491660035 (2) Pressure ulcer ICD Codes: L89.90 - Decubitus ulcer SNOMED: 829434105 (3) Abscess ICD Codes: L02.91 - Abscess SNOMED: 906201943 Status: stable, progressing Assessment/Plan cont iv abx can dc on 2 weeks dapto followed by 4 weeks doxy po monitor hr metoprolol- titrate up pain control ivf follow up echo antiemetics try lidoderm patch Subjective ROS Limited/Unobtainable: No Constitutional: Reports: malaise, weakness HEENT: Reports: no symptoms Cardiovascular: Reports: chest pain Respiratory: Reports: no symptoms Gastrointestinal/Abdominal: Reports: nausea Genitourinary: Reports: no symptoms 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: Reports: no symptoms Endocrine: Reports: no symptoms Hematologic/Lymphatic: Reports: anemia Allergies: Coded Allergies: CEFTRIAXONE (Verified Allergy, Intermediate, SOB, HR-140bpm, face swollen , pt became red, 10/24/15) CODEINE (Verified Allergy, Intermediate, SWELLING, 01/03/11) LATEX (Verified Allergy, Intermediate, SWELLING, 01/03/11) PIPERACILLIN (Verified Allergy, Intermediate, Itching, 08/29/15) 08/29/15 tolerates Ceftaroline TAZOBACTAM (Verified Allergy, Intermediate, Itching, 01/29/15) POLYMYXIN B (Verified Allergy, Mild, Rash, 04/08/16) Suspected allergy reported by VANCOMYCIN (Verified Allergy, Mild, 07/15/14) ASPARAGINASE (Verified Allergy, Unknown, 01/28/14) CEFUROXIME (Unverified Allergy, Unknown, 04/19/16) IRON (Verified Allergy, Unknown, 01/28/14) LATEX, NATURAL RUBBER (Unverified Allergy, Unknown, 06/18/16) All Systems: reviewed and negative except above Subjective slightly less tachycardic. left sided pleuritic chest pain on iv abx. no fevers. no new complaints. labs pending. Objective Last 24 Hour Vital Signs Date Time Temp Pulse Resp B/P (MAP) Pulse Ox O2 Delivery O2 Flow Rate FiO2 08/08/17 04:00 110 08/08/17 04:00 98.0 113 22 116/68 95 Room Air 98.0 08/08/17 00:00 115 08/08/17 00:00 98.1 113 21 106/67 95 Room Air 98.1 08/07/17 20:30 118 117/65 08/07/17 20:00 97.7 118 20 117/65 97 Room Air 97.7 08/07/17 20:00 122 08/07/17 19:31 112 20 Room Air 21 08/07/17 16:00 98.3 113 17 124/80 95 Room Air 98.3 08/07/17 16:00 110 08/07/17 12:25 115 20 Room Air 21 08/07/17 12:00 98.4 76 18 110/70 99 Room Air 98.4 08/07/17 12:00 118 08/07/17 08:51 117 118/76 Intake and Output 08/07/17 08/08/17 19:00 07:00 Intake Total 1400 ml 450 ml Balance 1400 ml 450 ml IV Total 600 ml 450 ml Other 800 ml # Voids 2 2 # Bowel Movements 1 Height (Feet): 5 Height (Inches): 5.00 Weight (Pounds): 198 Objective General Appearance: WD/WN Neck: supple Cardiovascular: normal rate Respiratory/Chest: chest wall non-tender, lungs clear Abdomen: normal bowel sounds, non tender, soft, no organomegaly Edema: no edema noted Arm (L), no edema noted Arm (R), no edema noted Leg (L), no edema noted Leg (R), no edema noted Pedal (L), no edema noted Pedal (R), no edema noted Generalized BONG BRUNNER Aug 08, 2017 08:04
--- NOTE | 2017-08-08 08:27 | Pulmonology Progress Note ---
Assessment/Plan Assessment/Plan pleural effusions s/p tap pulmonary infiltrates multiple abcesses paraplegia paraspinous abcess s/p tap sinus tachycardia, transient PLAN pain control adequate monitor imaging for change monitor oxygen needs IV antibiotics as is ID noted and reviewed awaiting disposition per for home iv antibiotics supportive care meds noted MD notes reviewed monitor oxygen needs; currently stable with management impression, plan, and exam edited and reviewed in detail care discussed with RN Subjective Allergies: Coded Allergies: CEFTRIAXONE (Verified Allergy, Intermediate, SOB, HR-140bpm, face swollen , pt became red, 10/24/15) CODEINE (Verified Allergy, Intermediate, SWELLING, 01/03/11) LATEX (Verified Allergy, Intermediate, SWELLING, 01/03/11) PIPERACILLIN (Verified Allergy, Intermediate, Itching, 08/29/15) 08/29/15 tolerates Ceftaroline TAZOBACTAM (Verified Allergy, Intermediate, Itching, 01/29/15) POLYMYXIN B (Verified Allergy, Mild, Rash, 04/08/16) Suspected allergy reported by MD VANCOMYCIN (Verified Allergy, Mild, 07/15/14) ASPARAGINASE (Verified Allergy, Unknown, 01/28/14) CEFUROXIME (Unverified Allergy, Unknown, 04/19/16) IRON (Verified Allergy, Unknown, 01/28/14) LATEX, NATURAL RUBBER (Unverified Allergy, Unknown, 06/18/16) Subjective care noted and reviewed no sob or cp still with chronic pain MD notes reviewed overnight events noted Objective Last 24 Hour Vital Signs Date Time Temp Pulse Resp B/P (MAP) Pulse Ox O2 Delivery O2 Flow Rate FiO2 08/08/17 04:00 110 08/08/17 04:00 98.0 113 22 116/68 95 Room Air 98.0 08/08/17 00:00 115 08/08/17 00:00 98.1 113 21 106/67 95 Room Air 98.1 08/07/17 20:30 118 117/65 08/07/17 20:00 97.7 118 20 117/65 97 Room Air 97.7 08/07/17 20:00 122 08/07/17 19:31 112 20 Room Air 21 08/07/17 16:00 98.3 113 17 124/80 95 Room Air 98.3 08/07/17 16:00 110 08/07/17 12:25 115 20 Room Air 21 08/07/17 12:00 98.4 76 18 110/70 99 Room Air 98.4 08/07/17 12:00 118 08/07/17 08:51 117 118/76 Intake and Output 08/07/17 08/08/17 19:00 07:00 Intake Total 1400 ml 450 ml Balance 1400 ml 450 ml IV Total 600 ml 450 ml Other 800 ml # Voids 2 2 # Bowel Movements 1 Objective WDWN NAD symmetric breath sounds without rhonchi or wheeze [id number] without MRG NABS nontender no HSM no CCE paraplegic Current Medications Medications (Trade) Dose Ordered Sig/Pineda Route PRN Reason Start Time Stop Time Status Last Admin Dose Admin Acetaminophen (Tylenol) 650 mg Q6H PRN ORAL Mild Pain/Temp > 100.5 07/31/17 21:32 08/13/17 21:31 Albuterol Sulfate (Proventil MDI) 2 puff Q4H PRN INH Shortness of Breath 08/01/17 01:00 08/13/17 16:59 08/06/17 17:38 Chlorhexidine Gluconate (Nereida-Hex 2%) 1 applic DAILY@2000 TOPIC 08/01/17 20:00 08/15/17 19:59 08/07/17 20:12 Cyclobenzaprine HCl (Flexeril) 10 mg Q8HR ORAL 08/03/17 22:00 09/02/17 21:59 08/08/17 05:59 Cyclobenzaprine HCl (Flexeril) 10 mg THREE TIMES A DAY PRN ORAL Muscle Spasm 07/31/17 21:36 08/30/17 21:35 08/02/17 01:50 Daptomycin 600 mg/ Sodium Chloride 110 ml @ 220 mls/hr Q24H IV 08/07/17 20:00 08/14/17 19:59 08/07/17 20:12 Diphenhydramine HCl (Benadryl) 50 mg Q6H PRN IVP Itching 07/31/17 21:32 08/25/17 21:31 08/08/17 05:23 Escitalopram Oxalate (Lexapro) 10 mg DAILY ORAL 08/01/17 09:00 08/14/17 08:59 08/05/17 09:29 Heparin Sodium (Porcine) (Heparin 5000 units/ml) 5,000 units EVERY 12 HOURS SUBQ 08/01/17 09:00 08/14/17 20:59 08/07/17 20:31 Hydromorphone HCl (Dilaudid) 2 mg Q3H PRN IVP Severe Pain 08/07/17 23:00 08/14/17 22:59 08/08/17 05:23 Lidocaine (Lidoderm 5% PATCH) 1 patch DAILY TDERMAL 08/04/17 09:00 09/03/17 08:59 08/05/17 09:30 Metoprolol Tartrate (Lopressor) 25 mg Q12HR ORAL 08/07/17 21:00 09/06/17 20:59 08/07/17 20:30 Ondansetron HCl (Zofran) 4 mg Q4H PRN IVP Nausea & Vomiting 07/31/17 21:33 08/16/17 21:32 08/04/17 15:59 Pantoprazole (Protonix) 40 mg DAILY@0600 ORAL 08/01/17 06:00 08/14/17 05:59 08/08/17 05:58 Sodium Chloride 1,000 ml @ 75 mls/hr [id number] IV 08/01/17 14:30 08/31/17 14:29 08/08/17 02:00 LUANN MICHEL Aug 08, 2017 08:27
[2017-08-08 08:57] LABS: BASOPHILS % (AUTO) 0.4 % (0.0-2.0); HEMOGLOBIN 9.2 G/DL (12.0-16.0); LYMPHOCYTES % (AUTO) 21.1 % (20.0-45.0); MEAN CORPUSCULAR VOLUME 82 FL (80-99); MONOCYTES % (AUTO) 5.3 % (1.0-10.0); NEUTROPHILS % (AUTO) 71.1 % (45.0-75.0); PLATELET COUNT 395 K/UL (150-450); RED CELL DISTRIBUTION WIDTH 17.7 % (11.6-14.8); WHITE BLOOD COUNT 10.1 K/UL (4.8-10.8)
[2017-08-08] MEDS: Metoprolol 25mg tab ORAL SCH ×2 (09:00→20:32)
[2017-08-08] MEDS: Heparin 5000 units/ml inj SUBQ SCH ×2 (09:00→20:35)
[2017-08-08 09:43] LABS: ALANINE AMINOTRANSFERASE < 6 U/L (12-78); ALBUMIN 1.8 G/DL (3.4-5.0); ALBUMIN/GLOBULIN RATIO 0.3 (1.0-2.7); ALKALINE PHOSPHATASE 76 U/L (46-116); ANION GAP 8 mmol/L (5-15); ASPARTATE AMINO TRANSFERASE 8 U/L (15-37); BILIRUBIN,TOTAL 0.3 MG/DL (0.2-1.0); BLOOD UREA NITROGEN 13 mg/dL (7-18); CALCIUM 8.7 MG/DL (8.5-10.1); CARBON DIOXIDE 26 MMOL/L (21-32); CHLORIDE 99 MMOL/L (98-107); CREATININE 0.6 MG/DL (0.55-1.30); POTASSIUM 4.2 MMOL/L (3.5-5.1); SODIUM 133 MMOL/L (136-145)
--- NOTE | 2017-08-08 10:42 | Cardiology Report ---
APPROVED REPORT EXAM: Two-dimensional and M-mode echocardiogram with Doppler and color Doppler. INDICATION Tachycardia M-Mode DIMENSIONS IVSd1.2 (0.7-1.1cm)Left Atrium (MM)3.7 (1.6-4.0cm) LVDd4.4 (3.5-5.6cm)Aortic Root2.8 (2.0-3.7cm) PWd1.1 (0.7-1.1cm)Aortic Cusp Exc.1.9 (1.5-2.0cm) IVSs1.6 cm LVDs3.1 (2.5-4.0cm) PWs1.6 cm Technically difficult study due to pts sensitivity to scan probe. Normal left ventricular chamber size. Distal septal and anterior hypokinesis to extent visualized. Left ventricular ejection fraction estimated to be 50-55 %. Study quality precludes accurate assessment of regional wall motion. Mild left ventricular hypertrophy by 2-D. No evidence of pericardial effusion. All other cardiac chamber sizes are within normal limits. Focal aortic valve sclerosis with adequate cusp excursion. Thickened mitral valve leaflets with normal excursion. Mitral annulus and aortic root calcification. Pulmonic valve not well visualized. Normal tricuspid valve structure. IVC at normal size with physiologic collapse. A color flow and spectral Doppler study was performed and revealed: Trace mitral regurgitation. Mitral inflow indicates normal left ventricular diastolic function. Trace tricuspid regurgitation. Tricuspid systolic velocities suggests peak right ventricular systolic pressure of 17 mmHg.
--- NOTE | 2017-08-08 10:52 | General Progress Note ---
Assessment/Plan Assessment/Plan Assessment - Anemia - prior negative EGD and Colonoscopy - malnutrition, low albumin - currently about 1.8 - Spine osteo - paraspinous abscess - Hepatosplenomegaly, ? early portal HTN - (+) GB stones/sludge - Chronic wounds Recommendations - Push po / protein supplements - follow labs - wound care - ID f/u - monitor intake - Ensure TID PO - d/c planning Subjective Allergies: Coded Allergies: CEFTRIAXONE (Verified Allergy, Intermediate, SOB, HR-140bpm, face swollen , pt became red, 10/24/15) CODEINE (Verified Allergy, Intermediate, SWELLING, 01/03/11) LATEX (Verified Allergy, Intermediate, SWELLING, 01/03/11) PIPERACILLIN (Verified Allergy, Intermediate, Itching, 08/29/15) 08/29/15 tolerates Ceftaroline TAZOBACTAM (Verified Allergy, Intermediate, Itching, 01/29/15) POLYMYXIN B (Verified Allergy, Mild, Rash, 04/08/16) Suspected allergy reported by MD VANCOMYCIN (Verified Allergy, Mild, 07/15/14) ASPARAGINASE (Verified Allergy, Unknown, 01/28/14) CEFUROXIME (Unverified Allergy, Unknown, 04/19/16) IRON (Verified Allergy, Unknown, 01/28/14) LATEX, NATURAL RUBBER (Unverified Allergy, Unknown, 06/18/16) Subjective Feels OK no abdominal complaints d/c planned noted Objective Last 24 Hour Vital Signs Date Time Temp Pulse Resp B/P (MAP) Pulse Ox O2 Delivery O2 Flow Rate FiO2 08/08/17 07:36 114 18 Room Air 21 08/08/17 04:00 110 08/08/17 04:00 98.0 113 22 116/68 95 Room Air 98.0 08/08/17 00:00 115 08/08/17 00:00 98.1 113 21 106/67 95 Room Air 98.1 08/07/17 20:30 118 117/65 08/07/17 20:00 97.7 118 20 117/65 97 Room Air 97.7 08/07/17 20:00 122 08/07/17 19:31 112 20 Room Air 21 08/07/17 16:00 98.3 113 17 124/80 95 Room Air 98.3 08/07/17 16:00 110 4/29/18 12:25 115 20 Room Air 21 08/07/17 12:00 98.4 76 18 110/70 99 Room Air 98.4 08/07/17 12:00 118 Intake and Output 08/07/17 08/08/17 19:00 07:00 Intake Total 1400 ml 450 ml Balance 1400 ml 450 ml IV Total 600 ml 450 ml Other 800 ml # Voids 2 2 # Bowel Movements 1 Laboratory Tests 08/08/17 08:20: White Blood Count 10.1, Red Blood Count 3.40L, Hemoglobin 9.2L, Hematocrit 28.0L , Mean Corpuscular Volume 82, Mean Corpuscular Hemoglobin 27.1, Mean Corpuscular Hemoglobin Concent 33.0, Red Cell Distribution Width 17.7H, Platelet Count 395, Mean Platelet Volume 6.7, Neutrophils (%) (Auto) 71.1, Lymphocytes (%) (Auto) 21.1, Monocytes (%) (Auto) 5.3, Eosinophils (%) (Auto) 2.0, Basophils (%) (Auto) 0.4, Erythrocyte Sedimentation Rate 111H, Sodium Level 133L, Potassium Level 4.2, Chloride Level 99, Carbon Dioxide Level 26, Anion Gap 8, Blood Urea Nitrogen 13, Creatinine 0.6, Estimat Glomerular Filtration Rate > 60, Glucose Level 132H, Calcium Level 8.7, Total Bilirubin 0.3 , Aspartate Amino Transf (AST/SGOT) 8L, Alanine Aminotransferase (ALT/SGPT) < 6L , Alkaline Phosphatase 76, Total Protein 8.0, Albumin 1.8L, Globulin 6.2, Albumin/Globulin Ratio 0.3L Height (Feet): 5 Height (Inches): 5.00 Weight (Pounds): 198 Objective WDWN NCAT supple CTA RRR abd soft, (+) LLQ ostomy (+) paraplegia wounds noted PITER DEAN Aug 08, 2017 10:52
[2017-08-08 12:00] VITALS: BP 124/88
--- NOTE | 2017-08-08 14:00 | History and Physical Report ---
DATE OF ADMISSION: 07/14/2017 CHIEF COMPLAINT: Multiple abscesses, paraplegia, multiple sacral wounds. HISTORY OF PRESENT ILLNESS: The patient is an unfortunate female. She was transferred from [facility] after she went for evaluation for a diskitis and perispinal abscess. She was seen by Neurosurgery. No intervention was recommended, was recommended to continue antibiotics. She was transferred here back to [facility] for regular care. Other than chronic pain, she has been stable. PAST MEDICAL HISTORY: Significant for history of paraplegia and history of multiple decubitus ulcers. PAST SURGICAL HISTORY: None. CURRENT MEDICATIONS: Reconciled and reviewed. ALLERGIES: None. FAMILY HISTORY: None. SOCIAL HISTORY: Negative for tobacco, ethanol, or drugs. REVIEW OF SYSTEMS: GENERAL: No fever or chills. HEENT: No headaches or visual changes. CARDIOPULMONARY: No chest pain or shortness of breath. GASTROINTESTINAL: No nausea or vomiting. GENITOURINARY: No urgency or frequency. MUSCULOSKELETAL: No joint pain or swelling. NEUROLOGIC: No evidence of seizures. PHYSICAL EXAMINATION: VITAL SIGNS: Temperature 98 degrees, blood pressure 136/74, pulse 80, respirations 20. GENERAL: The patient is a well-developed, chronically ill female, in no apparent distress. HEART: Regular rate and rhythm. LUNGS: Clear. ABDOMEN: Soft. EXTREMITIES: No clubbing or cyanosis. The patient is paraplegic. SKIN: She has multiple sacral wounds. LABORATORY DATA: Labs were reviewed. ASSESSMENT: This is an unfortunate female admitted with multiple decubitus ulcers, paraplegia. She has bilateral paraspinal abscesses, status post drainage of 1 side. PLAN: Intravenous antibiotics per ID. Consider repeat CAT scan. Consider repeat drainage. The patient so far has refused repeat drainage. The patient's overall prognosis is poor. Consider transfer today to a long-term acute care for wound care. The patient so far has refused and agreed to go home when stable . Jacques Chanel M.D. DR: KAYLEE JOB#: [id number] CC:
[2017-08-08 16:00] VITALS: BP 117/80
[2017-08-08 20:00] VITALS: BP 116/76
[2017-08-08] MEDS: Dyna-Hex 2% Top Sol 2oz TOPIC SCH (20:31)
[2017-08-08] MEDS: NS IV SCH (20:32)
[2017-08-08] MEDS: DAPTOMYCIN IV SCH (20:32)
[2017-08-09] VITALS: BP 111/74
[2017-08-09 04:00] VITALS: BP 105/70
[2017-08-09] MEDS: DiphenhydrAMINE 50mg/ml Inj IVP PRN ×2 (05:13→13:37)
[2017-08-09] MEDS: Cyclobenzaprine 10mg Tab ORAL SCH ×3 (05:56→22:16)
[2017-08-09 08:00] VITALS: BP 126/74
--- NOTE | 2017-08-09 08:37 | General Progress Note ---
Assessment/Plan Problem List: (1) Chronic osteomyelitis of hip ICD Codes: M86.68 - Other chronic osteomyelitis, other site SNOMED: 446969728 (2) Pressure ulcer ICD Codes: L89.90 - Decubitus ulcer SNOMED: 123653433 (3) Abscess ICD Codes: L02.91 - Abscess SNOMED: 385542746 Status: stable Assessment/Plan cont iv abx can dc on 2 weeks dapto followed by 4 weeks doxy po monitor hr metoprolol pain control ivf follow up echo antiemetics Subjective ROS Limited/Unobtainable: No Constitutional: Reports: malaise, weakness HEENT: Reports: no symptoms Cardiovascular: Reports: chest pain, palpitations Respiratory: Reports: no symptoms Gastrointestinal/Abdominal: Reports: nausea Genitourinary: Reports: no symptoms 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: Reports: pre-existing deficit Endocrine: Reports: no symptoms Hematologic/Lymphatic: Reports: anemia Allergies: Coded Allergies: CEFTRIAXONE (Verified Allergy, Intermediate, SOB, HR-140bpm, face swollen , pt became red, 10/24/15) CODEINE (Verified Allergy, Intermediate, SWELLING, 01/03/11) LATEX (Verified Allergy, Intermediate, SWELLING, 01/03/11) PIPERACILLIN (Verified Allergy, Intermediate, Itching, 08/29/15) 08/29/15 tolerates Ceftaroline TAZOBACTAM (Verified Allergy, Intermediate, Itching, 01/29/15) POLYMYXIN B (Verified Allergy, Mild, Rash, 04/08/16) Suspected allergy reported by VANCOMYCIN (Verified Allergy, Mild, 07/15/14) ASPARAGINASE (Verified Allergy, Unknown, 01/28/14) CEFUROXIME (Unverified Allergy, Unknown, 04/19/16) IRON (Verified Allergy, Unknown, 01/28/14) LATEX, NATURAL RUBBER (Unverified Allergy, Unknown, 06/18/16) All Systems: reviewed and negative except above Subjective slightly less tachycardic. low 110s while sleeping. as high as 130s when awake. left sided pleuritic chest pain on iv abx. no fevers. no new complaints. Objective Last 24 Hour Vital Signs Date Time Temp Pulse Resp B/P (MAP) Pulse Ox O2 Delivery O2 Flow Rate FiO2 08/09/17 04:00 114 08/09/17 04:00 97.8 113 20 105/70 96 Room Air 97.8 08/09/17 00:00 113 08/09/17 00:00 98.7 114 18 111/74 96 Room Air 98.7 08/08/17 20:32 112 116/76 08/08/17 20:05 136 20 Room Air 21 08/08/17 20:00 129 08/08/17 20:00 98.7 112 17 116/76 96 Room Air 98.7 08/08/17 16:00 98.6 112 20 117/80 96 Room Air 98.6 08/08/17 16:00 133 08/08/17 12:00 114 08/08/17 12:00 97.4 119 18 124/88 95 Room Air 97.4 Intake and Output 08/08/17 08/09/17 19:00 07:00 Intake Total 360 ml 935 ml Balance 360 ml 935 ml Intake Oral 360 ml IV Total 935 ml # Voids 3 1 # Bowel Movements 1 1 Height (Feet): 5 Height (Inches): 5.00 Weight (Pounds): 198 Objective General Appearance: WD/WN Neck: supple Cardiovascular: normal rate Respiratory/Chest: chest wall non-tender, lungs clear Abdomen: normal bowel sounds, non tender, soft, no organomegaly Edema: no edema noted Arm (L), no edema noted Arm (R), no edema noted Leg (L), no edema noted Leg (R), no edema noted Pedal (L), no edema noted Pedal (R), no edema noted Generalized BONG BRUNNER August 09, 2017 08:37
[2017-08-09] MEDS: Heparin 5000 units/ml inj SUBQ SCH ×2 (09:00→21:00)
[2017-08-09] MEDS: Metoprolol 25mg tab ORAL SCH (09:19)
[2017-08-09 12:00] VITALS: BP 111/67
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
[2017-08-09 16:00] VITALS: BP 103/71
--- NOTE | 2017-08-09 18:32 | Pulmonology Progress Note ---
Assessment/Plan Assessment/Plan pleural effusions s/p tap pulmonary infiltrates multiple abcesses paraplegia paraspinous abcess s/p tap sinus tachycardia, transient PLAN pain meds renewed monitor imaging for change monitor oxygen needs IV antibiotics noted ID noted and reviewed awaiting disposition per for home iv antibiotics supportive care reviewed meds noted MD notes reviewed monitor oxygen needs; currently stable with management impression, plan, and exam edited and reviewed in detail care discussed with RN Subjective Allergies: Coded Allergies: CEFTRIAXONE (Verified Allergy, Intermediate, SOB, HR-140bpm, face swollen , pt became red, 10/24/15) CODEINE (Verified Allergy, Intermediate, SWELLING, 01/03/11) LATEX (Verified Allergy, Intermediate, SWELLING, 01/03/11) PIPERACILLIN (Verified Allergy, Intermediate, Itching, 08/29/15) 08/29/15 tolerates Ceftaroline TAZOBACTAM (Verified Allergy, Intermediate, Itching, 01/29/15) POLYMYXIN B (Verified Allergy, Mild, Rash, 04/08/16) Suspected allergy reported by MD VANCOMYCIN (Verified Allergy, Mild, 07/15/14) ASPARAGINASE (Verified Allergy, Unknown, 01/28/14) CEFUROXIME (Unverified Allergy, Unknown, 04/19/16) IRON (Verified Allergy, Unknown, 01/28/14) LATEX, NATURAL RUBBER (Unverified Allergy, Unknown, 06/18/16) Subjective care noted and reviewed no sob or cp MD notes reviewed overnight events noted Objective Last 24 Hour Vital Signs Date Time Temp Pulse Resp B/P (MAP) Pulse Ox O2 Delivery O2 Flow Rate FiO2 08/09/17 16:00 103 08/09/17 16:00 97.6 102 18 103/71 96 Room Air 97.6 08/09/17 14:07 98.0 08/09/17 12:00 103 08/09/17 12:00 98.0 103 18 111/67 99 Room Air 98.0 08/09/17 09:19 110 126/74 08/09/17 08:55 110 20 Room Air 21 08/09/17 08:00 107 08/09/17 08:00 97.5 108 20 126/74 98 Room Air 97.5 08/09/17 04:00 114 08/09/17 04:00 97.8 113 20 105/70 96 Room Air 97.8 08/09/17 00:00 113 08/09/17 00:00 98.7 114 18 111/74 96 Room Air 98.7 08/08/17 20:32 112 116/76 08/08/17 20:05 136 20 Room Air 21 08/08/17 20:00 129 08/08/17 20:00 98.7 112 17 116/76 96 Room Air 98.7 Intake and Output 08/08/17 08/09/17 19:00 07:00 Intake Total 360 ml 1010 ml Balance 360 ml 1010 ml Intake Oral 360 ml IV Total 1010 ml # Voids 3 1 # Bowel Movements 1 1 Objective WDWN NAD symmetric breath sounds without rhonchi or wheeze [id number] without MRG NABS nontender no HSM no CCE paraplegic Current Medications Medications (Trade) Dose Ordered Sig/Pineda Route PRN Reason Start Time Stop Time Status Last Admin Dose Admin Acetaminophen (Tylenol) 650 mg Q6H PRN ORAL Mild Pain/Temp > 100.5 07/31/17 21:32 08/13/17 21:31 Albuterol Sulfate (Proventil MDI) 2 puff Q4H PRN INH Shortness of Breath 08/01/17 01:00 08/13/17 16:59 08/06/17 17:38 Chlorhexidine Gluconate (Nereida-Hex 2%) 1 applic DAILY@2000 TOPIC 08/01/17 20:00 08/15/17 19:59 08/08/17 20:31 Cyclobenzaprine HCl (Flexeril) 10 mg Q8HR ORAL 08/03/17 22:00 09/02/17 21:59 08/09/17 13:40 Daptomycin 600 mg/ Sodium Chloride 110 ml @ 220 mls/hr Q24H IV 08/07/17 20:00 08/14/17 19:59 08/08/17 20:32 Diphenhydramine HCl (Benadryl) 50 mg Q6H PRN IVP Itching 07/31/17 21:32 08/25/17 21:31 08/09/17 13:37 Escitalopram Oxalate (Lexapro) 10 mg DAILY ORAL 08/01/17 09:00 08/14/17 08:59 08/09/17 09:18 Heparin Sodium (Porcine) (Heparin 5000 units/ml) 5,000 units EVERY 12 HOURS SUBQ 08/01/17 09:00 08/14/17 20:59 08/08/17 20:35 Hydromorphone HCl (Dilaudid) 2 mg Q3H PRN IVP Severe Pain 08/07/17 23:00 08/14/17 22:59 08/09/17 17:49 Lidocaine (Lidoderm 5% PATCH) 1 patch DAILY TDERMAL 08/04/17 09:00 09/03/17 08:59 08/05/17 09:30 Metoprolol Tartrate (Lopressor) 50 mg Q12HR ORAL 08/09/17 21:00 09/08/17 20:59 Ondansetron HCl (Zofran) 4 mg Q4H PRN IVP Nausea & Vomiting 07/31/17 21:33 08/16/17 21:32 08/04/17 15:59 Pantoprazole (Protonix) 40 mg DAILY@0600 ORAL 08/01/17 06:00 08/14/17 05:59 08/09/17 05:56 Sodium Chloride 1,000 ml @ 75 mls/hr [id number] IV 08/01/17 14:30 08/31/17 14:29 08/09/17 05:12 LUANN MICHEL August 09, 2017 18:32
--- NOTE | 2017-08-09 19:52 | General Progress Note ---
Assessment/Plan Assessment/Plan Assessment - Anemia - prior negative EGD and Colonoscopy - malnutrition, low albumin - currently about 1.8 - Spine osteo - paraspinous abscess - Hepatosplenomegaly, ? early portal HTN - (+) GB stones/sludge - Chronic wounds Recommendations - Push po / protein supplements - follow labs - wound care - ID f/u - monitor intake - Ensure TID PO - d/c planning Subjective Allergies: Coded Allergies: CEFTRIAXONE (Verified Allergy, Intermediate, SOB, HR-140bpm, face swollen , pt became red, 10/24/15) CODEINE (Verified Allergy, Intermediate, SWELLING, 01/03/11) LATEX (Verified Allergy, Intermediate, SWELLING, 01/03/11) PIPERACILLIN (Verified Allergy, Intermediate, Itching, 08/29/15) 08/29/15 tolerates Ceftaroline TAZOBACTAM (Verified Allergy, Intermediate, Itching, 01/29/15) POLYMYXIN B (Verified Allergy, Mild, Rash, 04/08/16) Suspected allergy reported by MD VANCOMYCIN (Verified Allergy, Mild, 07/15/14) ASPARAGINASE (Verified Allergy, Unknown, 01/28/14) CEFUROXIME (Unverified Allergy, Unknown, 04/19/16) IRON (Verified Allergy, Unknown, 01/28/14) LATEX, NATURAL RUBBER (Unverified Allergy, Unknown, 06/18/16) Subjective Feels same resting comfortably no abdominal complaints d/c planned noted Objective Last 24 Hour Vital Signs Date Time Temp Pulse Resp B/P (MAP) Pulse Ox O2 Delivery O2 Flow Rate FiO2 08/09/17 16:00 103 08/09/17 16:00 97.6 102 18 103/71 96 Room Air 97.6 08/09/17 14:07 98.0 08/09/17 12:00 103 08/09/17 12:00 98.0 103 18 111/67 99 Room Air 98.0 08/09/17 09:19 110 126/74 08/09/17 08:55 110 20 Room Air 21 08/09/17 08:00 107 08/09/17 08:00 97.5 108 20 126/74 98 Room Air 97.5 08/09/17 04:00 114 08/09/17 04:00 97.8 113 20 105/70 96 Room Air 97.8 08/09/17 00:00 113 08/09/17 00:00 98.7 114 18 111/74 96 Room Air 98.7 08/08/17 20:32 112 116/76 08/08/17 20:05 136 20 Room Air 21 08/08/17 20:00 129 08/08/17 20:00 98.7 112 17 116/76 96 Room Air 98.7 Intake and Output 08/08/17 08/09/17 19:00 07:00 Intake Total 360 ml 1010 ml Balance 360 ml 1010 ml Intake Oral 360 ml IV Total 1010 ml # Voids 3 1 # Bowel Movements 1 1 Height (Feet): 5 Height (Inches): 5.00 Weight (Pounds): 198 Objective WDWN NCAT supple CTA RRR abd soft, (+) LLQ ostomy (+) paraplegia wounds noted PITER DEAN August 09, 2017 19:52
[2017-08-09 20:00] VITALS: BP 121/76
[2017-08-09] MEDS: Dyna-Hex 2% Top Sol 2oz TOPIC SCH (20:54)
[2017-08-09] MEDS: Metoprolol Tartrate 50mg tab ORAL SCH (20:54)
[2017-08-09] MEDS: DAPTOMYCIN IV SCH (22:15)
[2017-08-09] MEDS: NS IV SCH (22:15)
[2017-08-10] VITALS: BP 121/77
[2017-08-10 04:00] VITALS: BP 109/70
[2017-08-10] MEDS: DiphenhydrAMINE 50mg/ml Inj IVP PRN ×3 (04:04→20:37)
[2017-08-10] MEDS: Cyclobenzaprine 10mg Tab ORAL SCH ×3 (05:51→21:40)
[2017-08-10 08:00] VITALS: BP 117/69
[2017-08-10 08:13] LABS: BASOPHILS % (AUTO) 0.8 % (0.0-2.0); EOSINOPHILS % (AUTO) 3.2 % (0.0-3.0); HEMATOCRIT 27.4 % (37.0-47.0); LYMPHOCYTES % (AUTO) 22.7 % (20.0-45.0); MEAN CORPUSCULAR VOLUME 83 FL (80-99); MONOCYTES % (AUTO) 6.1 % (1.0-10.0); NEUTROPHILS % (AUTO) 67.3 % (45.0-75.0); PLATELET COUNT 349 K/UL (150-450); RED BLOOD COUNT 3.29 M/UL (4.20-5.40); WHITE BLOOD COUNT 8.4 K/UL (4.8-10.8)
[2017-08-10 08:30] LABS: ALANINE AMINOTRANSFERASE 6 U/L (12-78); ALBUMIN 1.8 G/DL (3.4-5.0); ALBUMIN/GLOBULIN RATIO 0.3 (1.0-2.7); ALKALINE PHOSPHATASE 93 U/L (46-116); ANION GAP 9 mmol/L (5-15); ASPARTATE AMINO TRANSFERASE 11 U/L (15-37); BILIRUBIN,TOTAL 0.3 MG/DL (0.2-1.0); BLOOD UREA NITROGEN 13 mg/dL (7-18); CALCIUM 8.5 MG/DL (8.5-10.1); CARBON DIOXIDE 24 MMOL/L (21-32); CHLORIDE 101 MMOL/L (98-107); CREATININE 0.8 MG/DL (0.55-1.30); POTASSIUM 3.9 MMOL/L (3.5-5.1); SODIUM 134 MMOL/L (136-145)
[2017-08-10] MEDS: Metoprolol Tartrate 50mg tab ORAL SCH ×2 (08:39→20:37)
[2017-08-10] MEDS: Heparin 5000 units/ml inj SUBQ SCH ×2 (08:40→20:39)
--- NOTE | 2017-08-10 10:31 | Pulmonology Progress Note ---
Assessment/Plan Assessment/Plan pleural effusions s/p tap pulmonary infiltrates multiple abcesses paraplegia paraspinous abcess s/p tap sinus tachycardia, transient PLAN pain meds noted monitor imaging for change as needed monitor oxygen needs monitor vitals IV antibiotics noted ID noted and reviewed awaiting disposition per for home iv antibiotics supportive care reviewed meds noted MD notes reviewed monitor oxygen needs; currently stable with management impression, plan, and exam edited and reviewed in detail care discussed with RN Subjective Allergies: Coded Allergies: CEFTRIAXONE (Verified Allergy, Intermediate, SOB, HR-140bpm, face swollen , pt became red, 10/24/15) CODEINE (Verified Allergy, Intermediate, SWELLING, 01/03/11) LATEX (Verified Allergy, Intermediate, SWELLING, 01/03/11) PIPERACILLIN (Verified Allergy, Intermediate, Itching, 08/29/15) 08/29/15 tolerates Ceftaroline TAZOBACTAM (Verified Allergy, Intermediate, Itching, 01/29/15) POLYMYXIN B (Verified Allergy, Mild, Rash, 04/08/16) Suspected allergy reported by MD VANCOMYCIN (Verified Allergy, Mild, 07/15/14) ASPARAGINASE (Verified Allergy, Unknown, 01/28/14) CEFUROXIME (Unverified Allergy, Unknown, 04/19/16) IRON (Verified Allergy, Unknown, 01/28/14) LATEX, NATURAL RUBBER (Unverified Allergy, Unknown, 06/18/16) Subjective care noted and reviewed no sob or cp MD notes reviewed ID reviewed and antibiotics noted overnight events noted Objective Last 24 Hour Vital Signs Date Time Temp Pulse Resp B/P (MAP) Pulse Ox O2 Delivery O2 Flow Rate FiO2 08/10/17 08:39 106 117/69 08/10/17 08:00 98.6 106 20 117/69 99 Room Air 98.6 08/10/17 07:55 107 20 Room Air 21 08/10/17 07:16 98.2 08/10/17 06:50 98.2 08/10/17 06:50 98.2 08/10/17 05:51 98.2 08/10/17 04:00 113 08/10/17 04:00 98.6 109 20 109/70 96 Room Air 98.6 08/10/17 03:54 98.2 08/10/17 00:00 117 08/10/17 00:00 98.6 112 20 121/77 94 Room Air 98.6 08/09/17 23:56 98.2 08/09/17 22:16 98.2 08/09/17 20:55 98.2 08/09/17 20:54 109 121/76 08/09/17 20:00 113 08/09/17 20:00 98.2 109 20 121/76 95 Room Air 98.2 08/09/17 19:30 104 20 Room Air 21 08/09/17 16:00 103 08/09/17 16:00 97.6 102 18 103/71 96 Room Air 97.6 08/09/17 12:00 103 08/09/17 12:00 98.0 103 18 111/67 99 Room Air 98.0 Intake and Output 08/09/17 08/10/17 19:00 07:00 Intake Total 1275 ml Balance 1275 ml Intake Oral 600 ml IV Total 675 ml # Voids 3 5 Objective WDWN NAD symmetric breath sounds without rhonchi or wheeze [id number] without MRG NABS nontender no HSM no CCE paraplegic Laboratory Tests 08/10/17 07:00: White Blood Count 8.4, Red Blood Count 3.29L, Hemoglobin 9.0L, Hematocrit 27.4L , Mean Corpuscular Volume 83, Mean Corpuscular Hemoglobin 27.3, Mean Corpuscular Hemoglobin Concent 32.8, Red Cell Distribution Width 18.0H, Platelet Count 349, Mean Platelet Volume 6.7, Neutrophils (%) (Auto) 67.3, Lymphocytes (%) (Auto) 22.7, Monocytes (%) (Auto) 6.1, Eosinophils (%) (Auto) 3.2H, Basophils (%) (Auto) 0.8, Sodium Level 134L, Potassium Level 3.9, Chloride Level 101, Carbon Dioxide Level 24, Anion Gap 9, Blood Urea Nitrogen 13 , Creatinine 0.8, Estimat Glomerular Filtration Rate > 60, Glucose Level 139H, Calcium Level 8.5, Total Bilirubin 0.3, Aspartate Amino Transf (AST/SGOT) 11L, Alanine Aminotransferase (ALT/SGPT) 6L, Alkaline Phosphatase 93, Total Protein 7.8, Albumin 1.8L, Globulin 6.0, Albumin/Globulin Ratio 0.3L Current Medications Medications (Trade) Dose Ordered Sig/Pineda Route PRN Reason Start Time Stop Time Status Last Admin Dose Admin Acetaminophen (Tylenol) 650 mg Q6H PRN ORAL Mild Pain/Temp > 100.5 07/31/17 21:32 08/13/17 21:31 Albuterol Sulfate (Proventil MDI) 2 puff Q4H PRN INH Shortness of Breath 08/01/17 01:00 08/13/17 16:59 08/06/17 17:38 Chlorhexidine Gluconate (Nereida-Hex 2%) 1 applic DAILY@2000 TOPIC 08/01/17 20:00 08/15/17 19:59 08/09/17 20:54 Cyclobenzaprine HCl (Flexeril) 10 mg Q8HR ORAL 08/03/17 22:00 09/02/17 21:59 08/10/17 05:51 Daptomycin 600 mg/ Sodium Chloride 110 ml @ 220 mls/hr Q24H IV 08/07/17 20:00 08/14/17 19:59 08/09/17 22:15 Diphenhydramine HCl (Benadryl) 50 mg Q6H PRN IVP Itching 07/31/17 21:32 08/25/17 21:31 08/10/17 04:04 Escitalopram Oxalate (Lexapro) 10 mg DAILY ORAL 08/01/17 09:00 08/14/17 08:59 08/09/17 09:18 Heparin Sodium (Porcine) (Heparin 5000 units/ml) 5,000 units EVERY 12 HOURS SUBQ 08/01/17 09:00 08/14/17 20:59 08/08/17 20:35 Hydromorphone HCl (Dilaudid) 2 mg Q3H PRN IVP Severe Pain 08/07/17 23:00 08/14/17 22:59 08/10/17 10:16 Lidocaine (Lidoderm 5% PATCH) 1 patch DAILY TDERMAL 08/04/17 09:00 09/03/17 08:59 08/05/17 09:30 Metoprolol Tartrate (Lopressor) 50 mg Q12HR ORAL 08/09/17 21:00 09/08/17 20:59 08/10/17 08:39 Ondansetron HCl (Zofran) 4 mg Q4H PRN IVP Nausea & Vomiting 07/31/17 21:33 08/16/17 21:32 08/04/17 15:59 Pantoprazole (Protonix) 40 mg DAILY@0600 ORAL 08/01/17 06:00 08/14/17 05:59 08/10/17 05:51 Sodium Chloride 1,000 ml @ 75 mls/hr [id number] IV 08/01/17 14:30 08/31/17 14:29 08/09/17 22:18 LUANN MICHEL August 10, 2017 10:31
[2017-08-10 12:00] VITALS: BP 106/69
[2017-08-10 16:00] VITALS: BP 124/76
--- NOTE | 2017-08-10 19:00 | Discharge Summary ---
DATE OF ADMISSION: 07/14/2017 DATE OF DISCHARGE: 08/10/2017 ADMISSION DIAGNOSES: 1. Paraspinal abscess. 2. Multiple sacral wounds. 3. Hip abscess. 4. Paraplegia. 5. Sinus tachycardia. 6. Asthma. 7. Fibromyalgia. 8. Chronic pain. DISCHARGE DIAGNOSES: 1. Paraspinal abscess. 2. Multiple sacral wounds. 3. Hip abscess. 4. Paraplegia. 5. Sinus tachycardia. 6. Asthma. 7. Fibromyalgia. 8. Chronic pain. HOSPITAL COURSE: The patient is an unfortunate female. She was initially transferred to an outside hospital for evaluation of paraspinal abscesses. No surgical intervention was recommended. The patient was transferred back to [facility] for continued antibiotic therapy. Her hospital course was complicated by tachycardia. She was ruled out for myocardial infarction EKG. She had a venous duplex that showed no DVT and a VQ scan was low probability. Tachycardia improved with beta-blockade and on discharge, the patient was stable and she was offered again repeated attempt at draining the paraspinal abscess, but the patient refused. She was aware of the concern that these abscesses will not heal with antibiotic therapy, but she adamantly refused any surgical interventions. The patient will be discharged home to complete two weeks of daptomycin and then 6 weeks of doxycycline. She has been asked to return for any worsening fevers, chills, or pain. DISCHARGE MEDICATIONS: Please see discharge medication list for discharge medications. DIET: Regular diet. ACTIVITY: Ad-casper. FOLLOWUP: The patient will be followed up by her medical anthropology director in one to two weeks. Jacques Chanel M.D. DR: DEISI JOB#: [id number] CC:
[2017-08-10 20:00] VITALS: BP 123/62
[2017-08-10] MEDS: NS IV SCH (20:35)
[2017-08-10] MEDS: DAPTOMYCIN IV SCH (20:35)
[2017-08-10] MEDS: Dyna-Hex 2% Top Sol 2oz TOPIC SCH (20:36)
--- NOTE | 2017-08-10 21:39 | General Progress Note ---
Assessment/Plan Assessment/Plan Assessment - Anemia - prior negative EGD and Colonoscopy - malnutrition, low albumin - currently about 1.8 - Spine osteo - paraspinous abscess - Hepatosplenomegaly, ? early portal HTN - (+) GB stones/sludge - Chronic wounds Recommendations - Push po / protein supplements - follow labs - wound care - ID f/u - monitor intake - Ensure TID PO - d/c planning Subjective Allergies: Coded Allergies: CEFTRIAXONE (Verified Allergy, Intermediate, SOB, HR-140bpm, face swollen , pt became red, 10/24/15) CODEINE (Verified Allergy, Intermediate, SWELLING, 01/03/11) LATEX (Verified Allergy, Intermediate, SWELLING, 01/03/11) PIPERACILLIN (Verified Allergy, Intermediate, Itching, 08/29/15) 08/29/15 tolerates Ceftaroline TAZOBACTAM (Verified Allergy, Intermediate, Itching, 01/29/15) POLYMYXIN B (Verified Allergy, Mild, Rash, 04/08/16) Suspected allergy reported by MD VANCOMYCIN (Verified Allergy, Mild, 07/15/14) ASPARAGINASE (Verified Allergy, Unknown, 01/28/14) CEFUROXIME (Unverified Allergy, Unknown, 04/19/16) IRON (Verified Allergy, Unknown, 01/28/14) LATEX, NATURAL RUBBER (Unverified Allergy, Unknown, 06/18/16) Subjective Feels same resting comfortably eating OK Objective Last 24 Hour Vital Signs Date Time Temp Pulse Resp B/P (MAP) Pulse Ox O2 Delivery O2 Flow Rate FiO2 08/10/17 21:08 97.2 08/10/17 20:38 97.2 08/10/17 20:37 110 125/72 08/10/17 20:00 98.4 106 18 123/62 96 Room Air 98.4 08/10/17 19:54 110 20 Room Air 21 08/10/17 16:00 97.2 98 20 124/76 95 Room Air 97.2 08/10/17 16:00 99 08/10/17 14:00 98.6 08/10/17 12:00 97.7 93 20 106/69 98 Room Air 97.7 08/10/17 12:00 96 08/10/17 08:39 106 117/69 08/10/17 08:00 98.6 106 20 117/69 99 Room Air 98.6 08/10/17 08:00 105 08/10/17 07:55 107 20 Room Air 21 08/10/17 07:16 98.2 08/10/17 06:50 98.2 08/10/17 05:51 98.2 08/10/17 04:00 113 08/10/17 04:00 98.6 109 20 109/70 96 Room Air 98.6 08/10/17 03:54 98.2 08/10/17 00:00 117 08/10/17 00:00 98.6 112 20 121/77 94 Room Air 98.6 08/09/17 23:56 98.2 08/09/17 22:16 98.2 Intake and Output 08/09/17 08/10/17 19:00 07:00 Intake Total 1275 ml Balance 1275 ml Intake Oral 600 ml IV Total 675 ml # Voids 3 5 Laboratory Tests 08/10/17 07:00: White Blood Count 8.4, Red Blood Count 3.29L, Hemoglobin 9.0L, Hematocrit 27.4L , Mean Corpuscular Volume 83, Mean Corpuscular Hemoglobin 27.3, Mean Corpuscular Hemoglobin Concent 32.8, Red Cell Distribution Width 18.0H, Platelet Count 349, Mean Platelet Volume 6.7, Neutrophils (%) (Auto) 67.3, Lymphocytes (%) (Auto) 22.7, Monocytes (%) (Auto) 6.1, Eosinophils (%) (Auto) 3.2H, Basophils (%) (Auto) 0.8, Sodium Level 134L, Potassium Level 3.9, Chloride Level 101, Carbon Dioxide Level 24, Anion Gap 9, Blood Urea Nitrogen 13 , Creatinine 0.8, Estimat Glomerular Filtration Rate > 60, Glucose Level 139H, Calcium Level 8.5, Total Bilirubin 0.3, Aspartate Amino Transf (AST/SGOT) 11L, Alanine Aminotransferase (ALT/SGPT) 6L, Alkaline Phosphatase 93, Total Protein 7.8, Albumin 1.8L, Globulin 6.0, Albumin/Globulin Ratio 0.3L Height (Feet): 5 Height (Inches): 5.00 Weight (Pounds): 198 Objective WDWN NCAT supple CTA RRR abd soft, (+) LLQ ostomy (+) paraplegia wounds noted PITER DEAN 2, 2018 21:39
[2017-08-11] VITALS: BP 115/74
[2017-08-11 04:00] VITALS: BP 100/55
[2017-08-11] MEDS: Cyclobenzaprine 10mg Tab ORAL SCH ×2 (05:19→14:00)
[2017-08-11] MEDS: DiphenhydrAMINE 50mg/ml Inj IVP PRN ×2 (05:28→12:42)
[2017-08-11 08:00] VITALS: BP 116/69
--- NOTE | 2017-08-11 08:00 | General Progress Note ---
Assessment/Plan Problem List: (1) Chronic osteomyelitis of hip ICD Codes: M86.68 - Other chronic osteomyelitis, other site SNOMED: 753545426 (2) Pressure ulcer ICD Codes: L89.90 - Decubitus ulcer SNOMED: 715884975 (3) Abscess ICD Codes: L02.91 - Abscess SNOMED: 972820113 Assessment/Plan cont iv abx can dc on 2 weeks dapto followed by 4 weeks doxy po monitor hr metoprolol pain control antiemetics dc planning for today Subjective ROS Limited/Unobtainable: No Constitutional: Reports: malaise, weakness HEENT: Reports: no symptoms Cardiovascular: Reports: no symptoms Respiratory: Reports: no symptoms Gastrointestinal/Abdominal: Reports: nausea Genitourinary: Reports: no symptoms 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: Reports: pre-existing deficit Endocrine: Reports: no symptoms Hematologic/Lymphatic: Reports: anemia Allergies: Coded Allergies: CEFTRIAXONE (Verified Allergy, Intermediate, SOB, HR-140bpm, face swollen , pt became red, 10/24/15) CODEINE (Verified Allergy, Intermediate, SWELLING, 01/03/11) LATEX (Verified Allergy, Intermediate, SWELLING, 01/03/11) PIPERACILLIN (Verified Allergy, Intermediate, Itching, 08/29/15) 08/29/15 tolerates Ceftaroline TAZOBACTAM (Verified Allergy, Intermediate, Itching, 01/29/15) POLYMYXIN B (Verified Allergy, Mild, Rash, 04/08/16) Suspected allergy reported by VANCOMYCIN (Verified Allergy, Mild, 07/15/14) ASPARAGINASE (Verified Allergy, Unknown, 01/28/14) CEFUROXIME (Unverified Allergy, Unknown, 04/19/16) IRON (Verified Allergy, Unknown, 01/28/14) LATEX, NATURAL RUBBER (Unverified Allergy, Unknown, 06/18/16) Subjective no events. w/o complaints. no fever or chills. no chest pain no sob. HD better controlled. dc held yesterday due to transportation problems Objective Last 24 Hour Vital Signs Date Time Temp Pulse Resp B/P (MAP) Pulse Ox O2 Delivery O2 Flow Rate FiO2 08/11/17 06:18 97.7 08/11/17 06:18 97.7 08/11/17 05:56 97.7 08/11/17 05:19 97.7 08/11/17 04:00 97.7 97 18 100/55 96 Room Air 97.7 08/11/17 04:00 97 08/11/17 02:56 97.9 08/11/17 00:00 106 08/11/17 00:00 97.9 104 20 115/74 96 Room Air 97.9 08/10/17 23:41 97.2 08/10/17 21:40 97.2 08/10/17 20:38 97.2 08/10/17 20:37 110 125/72 08/10/17 20:00 106 08/10/17 20:00 98.4 106 18 123/62 96 Room Air 98.4 08/10/17 19:54 110 20 Room Air 21 08/10/17 16:00 97.2 98 20 124/76 95 Room Air 97.2 08/10/17 16:00 99 08/10/17 14:00 98.6 08/10/17 12:00 97.7 93 20 106/69 98 Room Air 97.7 08/10/17 12:00 96 08/10/17 08:39 106 117/69 08/10/17 08:00 98.6 106 20 117/69 99 Room Air 98.6 08/10/17 08:00 105 Intake and Output 08/10/17 08/11/17 19:00 07:00 Intake Total 200 ml 600 ml Balance 200 ml 600 ml Intake Oral 200 ml 600 ml # Voids 1 3 Height (Feet): 5 Height (Inches): 5.00 Weight (Pounds): 198 Objective General Appearance: WD/WN Neck: supple Cardiovascular: normal rate Respiratory/Chest: chest wall non-tender, lungs clear Abdomen: normal bowel sounds, non tender, soft, no organomegaly Edema: no edema noted Arm (L), no edema noted Arm (R), no edema noted Leg (L), no edema noted Leg (R), no edema noted Pedal (L), no edema noted Pedal (R), no edema noted Generalized BONG BRUNNER August 11, 2017 08:00
--- NOTE | 2017-08-11 08:38 | Pulmonology Progress Note ---
Assessment/Plan Assessment/Plan pleural effusions s/p tap pulmonary infiltrates multiple abcesses paraplegia paraspinous abcess s/p tap sinus tachycardia, transient PLAN care noted monitor imaging for change as needed monitor oxygen needs for change IV antibiotics noted ID noted and reviewed awaiting disposition per for home iv antibiotics supportive care reviewed MD notes discussed monitor oxygen needs; currently stable with management impression, plan, and exam edited and reviewed in detail care discussed with RN Subjective Allergies: Coded Allergies: CEFTRIAXONE (Verified Allergy, Intermediate, SOB, HR-140bpm, face swollen , pt became red, 10/24/15) CODEINE (Verified Allergy, Intermediate, SWELLING, 01/03/11) LATEX (Verified Allergy, Intermediate, SWELLING, 01/03/11) PIPERACILLIN (Verified Allergy, Intermediate, Itching, 08/29/15) 08/29/15 tolerates Ceftaroline TAZOBACTAM (Verified Allergy, Intermediate, Itching, 01/29/15) POLYMYXIN B (Verified Allergy, Mild, Rash, 04/08/16) Suspected allergy reported by MD VANCOMYCIN (Verified Allergy, Mild, 07/15/14) ASPARAGINASE (Verified Allergy, Unknown, 01/28/14) CEFUROXIME (Unverified Allergy, Unknown, 04/19/16) IRON (Verified Allergy, Unknown, 01/28/14) LATEX, NATURAL RUBBER (Unverified Allergy, Unknown, 06/18/16) Subjective care noted and reviewed no sob or cp MD notes reviewed overnight events noted Objective Last 24 Hour Vital Signs Date Time Temp Pulse Resp B/P (MAP) Pulse Ox O2 Delivery O2 Flow Rate FiO2 08/11/17 08:00 98.2 96 20 116/69 96 Room Air 98.2 08/11/17 06:18 97.7 08/11/17 06:18 97.7 08/11/17 05:56 97.7 08/11/17 05:19 97.7 08/11/17 04:00 97.7 97 18 100/55 96 Room Air 97.7 08/11/17 04:00 97 08/11/17 02:56 97.9 08/11/17 00:00 106 08/11/17 00:00 97.9 104 20 115/74 96 Room Air 97.9 08/10/17 23:41 97.2 08/10/17 21:40 97.2 08/10/17 20:38 97.2 08/10/17 20:37 110 125/72 08/10/17 20:00 106 08/10/17 20:00 98.4 106 18 123/62 96 Room Air 98.4 08/10/17 19:54 110 20 Room Air 21 08/10/17 16:00 97.2 98 20 124/76 95 Room Air 97.2 08/10/17 16:00 99 08/10/17 14:00 98.6 08/10/17 12:00 97.7 93 20 106/69 98 Room Air 97.7 08/10/17 12:00 96 08/10/17 08:39 106 117/69 Intake and Output 08/10/17 08/11/17 19:00 07:00 Intake Total 200 ml 600 ml Balance 200 ml 600 ml Intake Oral 200 ml 600 ml # Voids 1 3 Objective WDWN NAD symmetric breath sounds without rhonchi or wheeze [id number] without MRG NABS nontender no HSM no CCE paraplegic Current Medications Medications (Trade) Dose Ordered Sig/Pineda Route PRN Reason Start Time Stop Time Status Last Admin Dose Admin Acetaminophen (Tylenol) 650 mg Q6H PRN ORAL Mild Pain/Temp > 100.5 07/31/17 21:32 08/13/17 21:31 Albuterol Sulfate (Proventil MDI) 2 puff Q4H PRN INH Shortness of Breath 08/01/17 01:00 08/13/17 16:59 08/06/17 17:38 Chlorhexidine Gluconate (Nereida-Hex 2%) 1 applic DAILY@2000 TOPIC 08/01/17 20:00 08/15/17 19:59 08/10/17 20:36 Cyclobenzaprine HCl (Flexeril) 10 mg Q8HR ORAL 08/03/17 22:00 09/02/17 21:59 08/11/17 05:19 Daptomycin 600 mg/ Sodium Chloride 110 ml @ 220 mls/hr Q24H IV 08/07/17 20:00 08/14/17 19:59 08/10/17 20:35 Diphenhydramine HCl (Benadryl) 50 mg Q6H PRN IVP Itching 07/31/17 21:32 08/25/17 21:31 08/11/17 05:28 Escitalopram Oxalate (Lexapro) 10 mg DAILY ORAL 08/01/17 09:00 08/14/17 08:59 08/09/17 09:18 Heparin Sodium (Porcine) (Heparin 5000 units/ml) 5,000 units EVERY 12 HOURS SUBQ 08/01/17 09:00 08/14/17 20:59 08/10/17 20:39 Hydromorphone HCl (Dilaudid) 2 mg Q3H PRN IVP Severe Pain 08/07/17 23:00 08/14/17 22:59 08/11/17 05:56 Lidocaine (Lidoderm 5% PATCH) 1 patch DAILY TDERMAL 08/04/17 09:00 09/03/17 08:59 08/05/17 09:30 Metoprolol Tartrate (Lopressor) 50 mg Q12HR ORAL 08/09/17 21:00 09/08/17 20:59 08/10/17 20:37 Ondansetron HCl (Zofran) 4 mg Q4H PRN IVP Nausea & Vomiting 07/31/17 21:33 08/16/17 21:32 08/04/17 15:59 Pantoprazole (Protonix) 40 mg DAILY@0600 ORAL 08/01/17 06:00 08/14/17 05:59 08/11/17 05:20 Sodium Chloride 1,000 ml @ 75 mls/hr [id number] IV 08/01/17 14:30 08/31/17 14:29 08/11/17 01:30 LUANN MICHEL August 11, 2017 08:38
[2017-08-11] MEDS: Heparin 5000 units/ml inj SUBQ SCH (09:00)
[2017-08-11] MEDS: Metoprolol Tartrate 50mg tab ORAL SCH (09:01)
[2017-08-11 12:00] VITALS: BP 119/76
--- NOTE | 2017-08-11 20:12 | General Progress Note ---
Assessment/Plan Assessment/Plan Assessment - Anemia - prior negative EGD and Colonoscopy - malnutrition, low albumin - currently about 1.8 - Spine osteo - paraspinous abscess - Hepatosplenomegaly, ? early portal HTN - (+) GB stones/sludge - Chronic wounds Recommendations - Push po / protein supplements - follow labs - wound care - ID f/u - monitor intake - Ensure TID PO - d/c planning Subjective Allergies: Coded Allergies: CEFTRIAXONE (Verified Allergy, Intermediate, SOB, HR-140bpm, face swollen , pt became red, 10/24/15) CODEINE (Verified Allergy, Intermediate, SWELLING, 01/03/11) LATEX (Verified Allergy, Intermediate, SWELLING, 01/03/11) PIPERACILLIN (Verified Allergy, Intermediate, Itching, 08/29/15) 08/29/15 tolerates Ceftaroline TAZOBACTAM (Verified Allergy, Intermediate, Itching, 01/29/15) POLYMYXIN B (Verified Allergy, Mild, Rash, 04/08/16) Suspected allergy reported by MD VANCOMYCIN (Verified Allergy, Mild, 07/15/14) ASPARAGINASE (Verified Allergy, Unknown, 01/28/14) CEFUROXIME (Unverified Allergy, Unknown, 04/19/16) IRON (Verified Allergy, Unknown, 01/28/14) LATEX, NATURAL RUBBER (Unverified Allergy, Unknown, 06/18/16) Subjective Feels same resting comfortably eating OK for discharge today Objective Last 24 Hour Vital Signs Date Time Temp Pulse Resp B/P (MAP) Pulse Ox O2 Delivery O2 Flow Rate FiO2 08/11/17 12:00 101 08/11/17 12:00 98.3 100 21 119/76 96 Room Air 98.3 08/11/17 09:01 96 116/69 08/11/17 08:00 98.2 96 20 116/69 96 Room Air 98.2 08/11/17 08:00 102 08/11/17 06:18 97.7 08/11/17 06:18 97.7 08/11/17 05:56 97.7 08/11/17 05:19 97.7 08/11/17 04:00 97.7 97 18 100/55 96 Room Air 97.7 08/11/17 04:00 97 08/11/17 02:56 97.9 08/11/17 00:00 106 08/11/17 00:00 97.9 104 20 115/74 96 Room Air 97.9 08/10/17 23:41 97.2 08/10/17 21:40 97.2 08/10/17 20:38 97.2 08/10/17 20:37 110 125/72 Intake and Output 08/10/17 08/11/17 19:00 07:00 Intake Total 200 ml 600 ml Balance 200 ml 600 ml Intake Oral 200 ml 600 ml # Voids 1 3 Height (Feet): 5 Height (Inches): 5.00 Weight (Pounds): 198 Objective WDWN NCAT supple CTA RRR abd soft, (+) LLQ ostomy (+) paraplegia wounds noted PITER DEAN August 11, 2017 20:12
== END 2017-08-11 15:35 | disposition home health service (06) | DRG 94 ==
LOC: 4W 20:36 → 2W 07-23 01:15 → 2E 07-23 16:58 → 4E 07-25 23:20 → 2E 07-31 21:29
PROC: 0W993ZZ Drainage of Right Pleural Cavity, Percutaneous Approach (ICD-10-PCS; 2017-07-21)
PROC: 0W9B3ZZ Drainage of Left Pleural Cavity, Percutaneous Approach (ICD-10-PCS; principal; 2017-08-02)
DX: G06.1 Intraspinal abscess and granuloma (principal); E43 Unspecified severe protein-calorie malnutrition; G82.20 Paraplegia, unspecified; J90 Pleural effusion, not elsewhere classified; M86.68 Other chronic osteomyelitis, other site; D64.9 Anemia, unspecified; L89.209 Pressure ulcer of unspecified hip, unspecified stage; L89.159 Pressure ulcer of sacral region, unspecified stage; Z88.6 Allergy status to analgesic agent; Z88.1 Allergy status to other antibiotic agents; Z88.8 Allergy status to other drugs, medicaments and biological substances; M46.46 Discitis, unspecified, lumbar region; R00.0 Tachycardia, unspecified; J45.909 Unspecified asthma, uncomplicated; M79.7 Fibromyalgia; G89.29 Other chronic pain; L89.890 Pressure ulcer of other site, unstageable
CPT/HCPCS: 36415; 71045; 74177; 76942; 78579; 78580; 80048; 80053; 80076; 82040; 82550; 82553; 84443; 84484; 85025; 85610; 85651; 85730; 87040; 87324; 93005; 93306; 94640; 94664; A9503; J2405; J8499

== ENCOUNTER 2017-08-11 22:33 | Inpatient (IN) | payer MEDICARE, OTHER ==
[~2017-08-11] VITALS: Ht 162.6 cm; Wt 89.4 kg
[2017-08-12 02:00] VITALS: BP 114/77
[2017-08-12 04:00] VITALS: BP 156/82
[2017-08-12] MEDS ORDERED: NS IV ONE (05:00)
[2017-08-12] MEDS ORDERED: DAPTOMYCIN IV ONE (05:00)
[2017-08-12] MEDS ORDERED: Albuterol 90mcg Inhaler 8gm INH PRN (07:30)
[2017-08-12 08:00] VITALS: BP 126/81
[2017-08-12] MEDS ORDERED: Heparin 1000 units/ml 1ml Vial INJ SCH (09:00)
[2017-08-12] MEDS: Heparin 5000 units/ml inj INJ SCH ×3 (09:00→21:00)
[2017-08-12] MEDS: Metoprolol Tartrate 50mg tab ORAL SCH ×2 (09:10→22:29)
[2017-08-12] MEDS ORDERED: DAPTOmycin 350 MG in NS 55 ML IV SCH (10:30)
[2017-08-12] MEDS ORDERED: LORazepam Inj 2mg/ml 1ml IV PRN (10:30)
[2017-08-12] MEDS ORDERED: Lidocaine 1% MPF 10mg/ml 5ml INJ PRN (11:00)
[2017-08-12] MEDS: Morphine Sulfate 4mg/ml Inj IVP PRN ×3 (11:30→22:29)
[2017-08-12 11:56] LABS: BASOPHILS % (AUTO) 0.4 % (0.0-2.0); EOSINOPHILS % (AUTO) 1.3 % (0.0-3.0); HEMATOCRIT 29.9 % (37.0-47.0); HEMOGLOBIN 9.6 G/DL (12.0-16.0); LYMPHOCYTES % (AUTO) 21.5 % (20.0-45.0); MEAN CORPUSCULAR VOLUME 83 FL (80-99); MONOCYTES % (AUTO) 4.7 % (1.0-10.0); NEUTROPHILS % (AUTO) 72.2 % (45.0-75.0); PLATELET COUNT 391 K/UL (150-450); RED BLOOD COUNT 3.62 M/UL (4.20-5.40); RED CELL DISTRIBUTION WIDTH 17.3 % (11.6-14.8)
[2017-08-12 12:00] VITALS: BP 117/70
[2017-08-12] MEDS ORDERED: NS IV SCH ×2 (12:00→15:00)
[2017-08-12] MEDS ORDERED: DAPTOMYCIN IV SCH ×2 (12:00→15:00)
[2017-08-12 12:06] LABS: INR 1.1 (0.9-1.1)
[2017-08-12 12:14] LABS: ALANINE AMINOTRANSFERASE 7 U/L (12-78); ALBUMIN/GLOBULIN RATIO 0.3 (1.0-2.7); ALKALINE PHOSPHATASE 168 U/L (46-116); ANION GAP 9 mmol/L (5-15); ASPARTATE AMINO TRANSFERASE 13 U/L (15-37); BILIRUBIN,TOTAL 0.4 MG/DL (0.2-1.0); BLOOD UREA NITROGEN 13 mg/dL (7-18); CALCIUM 8.9 MG/DL (8.5-10.1); CARBON DIOXIDE 25 MMOL/L (21-32); CHLORIDE 99 MMOL/L (98-107); CREATININE 0.6 MG/DL (0.55-1.30); PHOSPHORUS 4.5 MG/DL (2.5-4.9); POTASSIUM 4.3 MMOL/L (3.5-5.1); SODIUM 133 MMOL/L (136-145)
[2017-08-12] MEDS: NS IV SCH (14:05)
[2017-08-12] MEDS: DAPTOMYCIN IV SCH (14:05)
[2017-08-12 16:00] VITALS: BP 93/56
--- NOTE | 2017-08-12 17:10 | Diagnostic Imaging Report ---
Indication: Cough, pleural effusion Technique: XRAY Chest 1v Comparison: 07/29/2013 Findings: Heart size and mediastinal contours are stable. Left arm PICC line unchanged. There is a small left pleural effusion and left basilar atelectasis/consolidation. Question trace right pleural effusion. No definite pneumothorax. No acute osseous abnormality. Unchanged radiodensity projecting over the lower thoracic spine. Impression: Small left and trace right pleural effusions. Left basilar likely compressive atelectasis. Follow-up exam recommended.
[2017-08-12] MEDS: Cyclobenzaprine 10mg Tab ORAL PRN (17:21)
--- NOTE | 2017-08-12 17:28 | Pulmonolgy Critical Care Note ---
Critical Care - Asmt/Plan Assessment/Plan: Patient is a direct admit from [place]. [facility] sacral wound. Patient was previously discharged on 08/11 and is now re admitted, via gurney accompanied by RN and two senior communications specialist. Patient alert and responsive, oriented x4 and able to verbalize needs. Assessment/Plan pleural effusions s/p tap pulmonary infiltrates multiple abcesses paraplegia paraspinous abcess s/p tap sinus tachycardia, transient PLAN care noted monitor imaging for change as needed monitor oxygen needs for change IV antibiotics noted ID noted and reviewed awaiting disposition per for home iv antibiotics supportive care reviewed MD notes discussed monitor oxygen needs; currently stable with management impression, plan, and exam edited and reviewed in detail care discussed with RN Subjective Allergies: Coded Allergies: CEFTRIAXONE (Verified Allergy, Intermediate, SOB, HR-140bpm, face swollen , pt became red, 10/24/15) CODEINE (Verified Allergy, Intermediate, SWELLING, 01/03/11) LATEX (Verified Allergy, Intermediate, SWELLING, 01/03/11) PIPERACILLIN (Verified Allergy, Intermediate, Itching, 08/29/15) 08/29/15 tolerates Ceftaroline TAZOBACTAM (Verified Allergy, Intermediate, Itching, 01/29/15) POLYMYXIN B (Verified Allergy, Mild, Rash, 04/08/16) Suspected allergy reported by MD VANCOMYCIN (Verified Allergy, Mild, 07/15/14) ASPARAGINASE (Verified Allergy, Unknown, 01/28/14) CEFUROXIME (Unverified Allergy, Unknown, 04/19/16) IRON (Verified Allergy, Unknown, 01/28/14) LATEX, NATURAL RUBBER (Unverified Allergy, Unknown, 06/18/16) Subjective care noted and reviewed no sob or cp MD notes reviewed overnight events noted Objective Last 24 Hour Vital Signs Date Time Temp Pulse Resp B/P (MAP) Pulse Ox O2 Delivery O2 Flow Rate FiO2 08/11/17 08:00 98.2 96 20 116/69 96 Room Air 98.2 08/11/17 06:18 97.7 08/11/17 06:18 97.7 08/11/17 05:56 97.7 08/11/17 05:19 97.7 08/11/17 04:00 97.7 97 18 100/55 96 Room Air 97.7 08/11/17 04:00 97 08/11/17 02:56 97.9 08/11/17 00:00 106 08/11/17 00:00 97.9 104 20 115/74 96 Room Air 97.9 08/10/17 23:41 97.2 08/10/17 21:40 97.2 08/10/17 20:38 97.2 08/10/17 20:37 110 125/72 08/10/17 20:00 106 08/10/17 20:00 98.4 106 18 123/62 96 Room Air 98.4 08/10/17 19:54 110 20 Room Air 21 08/10/17 16:00 97.2 98 20 124/76 95 Room Air 97.2 08/10/17 16:00 99 08/10/17 14:00 98.6 08/10/17 12:00 97.7 93 20 106/69 98 Room Air 97.7 08/10/17 12:00 96 08/10/17 08:39 106 117/69 Intake and Output 08/10/17 08/11/17 19:00 07:00 Intake Total 200 ml 600 ml Balance 200 ml 600 ml Intake Oral 200 ml 600 ml # Voids 1 3 Objective WDWN NAD symmetric breath sounds without rhonchi or wheeze [id number] without MRG NABS nontender no HSM no CCE paraplegic Critical Care - Objective Last 24 Hour Vital Signs Date Time Temp Pulse Resp B/P (MAP) Pulse Ox O2 Delivery O2 Flow Rate FiO2 08/12/17 17:21 96.3 08/12/17 16:22 96.3 08/12/17 16:00 103 08/12/17 16:00 96.3 77 16 93/56 98 Room Air 96.3 08/12/17 15:52 98.0 08/12/17 12:00 117 08/12/17 12:00 97.8 107 18 117/70 96 Room Air 97.8 08/12/17 11:30 98.0 08/12/17 09:10 102 126/81 08/12/17 08:00 98.0 102 20 126/81 96 Room Air 98.0 08/12/17 04:00 97.0 124 20 156/82 96 Room Air 97.0 08/12/17 02:00 97.0 125 23 114/77 97 Room Air 97.0 Critical Care - Subjective ROS Limited/Unobtainable: Yes Condition: stable EKG Rhythm: Sinus Rhythm I&O: Intake and Output 08/11/17 08/12/17 19:00 07:00 Intake Total 75 ml Output Total 0 ml Balance 75 ml IV Total 75 ml Output Urine Total 0 ml # Bowel Movements 1 Karthik Devine M.D. August 12, 2017 17:28
[2017-08-12 20:00] VITALS: BP 135/87
[2017-08-12] MEDS: Dyna-Hex 2% Top Sol 2oz TOPIC SCH (22:28)
[2017-08-12] MEDS: DiphenhydrAMINE 50mg/ml Inj IVP PRN (22:28)
[2017-08-13] MEDS: Morphine Sulfate 4mg/ml Inj IVP PRN ×7 (03:35→23:35)
[2017-08-13 08:00] VITALS: BP 126/81
[2017-08-13] MEDS: Metoprolol Tartrate 50mg tab ORAL SCH ×2 (08:09→20:24)
[2017-08-13] MEDS: Cyclobenzaprine 10mg Tab ORAL PRN ×2 (08:16→18:43)
[2017-08-13] MEDS: Heparin 5000 units/ml inj INJ SCH ×2 (08:17→20:27)
[2017-08-13 12:00] VITALS: BP 142/85
[2017-08-13] MEDS: NS IV SCH (14:03)
[2017-08-13] MEDS: DAPTOMYCIN IV SCH (14:03)
[2017-08-13 16:00] VITALS: BP 133/86
--- NOTE | 2017-08-13 16:59 | Pulmonolgy Critical Care Note ---
Critical Care - Asmt/Plan Assessment/Plan: Patient is a direct admit from [place]. [facility] sacral wound. Patient was previously discharged on 08/11 and is now re admitted, Patient alert and responsive, oriented x4 and able to verbalize needs. Pain controlled Assessment/Plan pleural effusions s/p tap pulmonary infiltrates multiple abcesses paraplegia paraspinous abcess s/p tap sinus tachycardia, transient PLAN care noted monitor imaging for change as needed monitor oxygen needs for change IV antibiotics noted ID noted and reviewed awaiting disposition per for home iv antibiotics supportive care reviewed MD notes discussed monitor oxygen needs; currently stable with management impression, plan, and exam edited and reviewed in detail care discussed with RN Subjective Allergies: Coded Allergies: CEFTRIAXONE (Verified Allergy, Intermediate, SOB, HR-140bpm, face swollen , pt became red, 10/24/15) CODEINE (Verified Allergy, Intermediate, SWELLING, 01/03/11) LATEX (Verified Allergy, Intermediate, SWELLING, 01/03/11) PIPERACILLIN (Verified Allergy, Intermediate, Itching, 08/29/15) 08/29/15 tolerates Ceftaroline TAZOBACTAM (Verified Allergy, Intermediate, Itching, 01/29/15) POLYMYXIN B (Verified Allergy, Mild, Rash, 04/08/16) Suspected allergy reported by MD VANCOMYCIN (Verified Allergy, Mild, 07/15/14) ASPARAGINASE (Verified Allergy, Unknown, 01/28/14) CEFUROXIME (Unverified Allergy, Unknown, 04/19/16) IRON (Verified Allergy, Unknown, 01/28/14) LATEX, NATURAL RUBBER (Unverified Allergy, Unknown, 06/18/16) Subjective care noted and reviewed no sob or cp MD notes reviewed overnight events noted Objective Last 24 Hour Vital Signs Date Time Temp Pulse Resp B/P (MAP) Pulse Ox O2 Delivery O2 Flow Rate FiO2 08/11/17 08:00 98.2 96 20 116/69 96 Room Air 98.2 08/11/17 06:18 97.7 08/11/17 06:18 97.7 08/11/17 05:56 97.7 08/11/17 05:19 97.7 08/11/17 04:00 97.7 97 18 100/55 96 Room Air 97.7 08/11/17 04:00 97 08/11/17 02:56 97.9 08/11/17 00:00 106 08/11/17 00:00 97.9 104 20 115/74 96 Room Air 97.9 08/10/17 23:41 97.2 08/10/17 21:40 97.2 08/10/17 20:38 97.2 08/10/17 20:37 110 125/72 08/10/17 20:00 106 08/10/17 20:00 98.4 106 18 123/62 96 Room Air 98.4 08/10/17 19:54 110 20 Room Air 21 08/10/17 16:00 97.2 98 20 124/76 95 Room Air 97.2 08/10/17 16:00 99 08/10/17 14:00 98.6 08/10/17 12:00 97.7 93 20 106/69 98 Room Air 97.7 08/10/17 12:00 96 08/10/17 08:39 106 117/69 Intake and Output 08/10/17 08/11/17 19:00 07:00 Intake Total 200 ml 600 ml Balance 200 ml 600 ml Intake Oral 200 ml 600 ml # Voids 1 3 Objective WDWN NAD symmetric breath sounds without rhonchi or wheeze [id number] without MRG NABS nontender no HSM no CCE paraplegic Critical Care - Objective Last 24 Hour Vital Signs Date Time Temp Pulse Resp B/P (MAP) Pulse Ox O2 Delivery O2 Flow Rate FiO2 08/13/17 12:00 97.7 99 18 142/85 99 97.7 08/13/17 08:09 114 126/81 08/13/17 08:00 97.0 121 18 126/81 99 97.0 08/13/17 08:00 115 08/13/17 04:00 114 08/13/17 00:00 109 08/12/17 22:29 100 135/87 08/12/17 20:00 107 08/12/17 20:00 97.9 100 20 135/87 99 97.9 08/12/17 18:20 96.3 08/12/17 17:21 96.3 Critical Care - Subjective ROS Limited/Unobtainable: No Condition: improving EKG Rhythm: Sinus Rhythm I&O: Intake and Output 08/12/17 08/13/17 19:00 07:00 Intake Total 1062 ml Output Total 300 ml Balance 1062 ml -300 ml Intake Oral 240 ml IV Total 822 ml Output Urine Total 300 ml # Bowel Movements 2 Karthik Devine M.D. August 13, 2017 16:59
[2017-08-13 18:47] LABS: BILIRUBIN, URINE NEGATIVE (NEGATIVE); COLOR,URINE PALE YELLOW; GLUCOSE, URINE (UA) NEGATIVE (NEGATIVE); KETONES,URINE NEGATIVE (NEGATIVE); LEUKOCYTE ESTERASE ,URINE 2+ (NEGATIVE); NITRITE,URINE NEGATIVE (NEGATIVE); PH,URINE 6 (4.5-8.0); PROTEIN,URINE 1+ (NEGATIVE); UROBILINOGEN,URINE NORMAL MG/DL (0.0-1.0)
[2017-08-13 18:48] LABS: APPEARANCE,URINE SLIGHTLY CLOUDY
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
[2017-08-13 20:00] VITALS: BP 118/72
[2017-08-13] MEDS: Dyna-Hex 2% Top Sol 2oz TOPIC SCH (20:24)
[2017-08-13] MEDS: DiphenhydrAMINE 50mg/ml Inj IVP PRN (20:25)
[2017-08-14] VITALS: BP 115/68
[2017-08-14] MEDS: Morphine Sulfate 4mg/ml Inj IVP PRN ×7 (02:39→23:59)
[2017-08-14] MEDS: DiphenhydrAMINE 50mg/ml Inj IVP PRN ×2 (02:39→20:04)
[2017-08-14 04:00] VITALS: BP 109/71
[2017-08-14 08:03] VITALS: BP 113/70
--- NOTE | 2017-08-14 08:16 | General Progress Note ---
Assessment/Plan Problem List: (1) Paraplegia ICD Codes: G82.20 - Paraplegia SNOMED: 12665024 (2) Anemia ICD Codes: D64.9 - Anemia, unspecified SNOMED: 194128323 (3) Generalized weakness ICD Codes: R53.1 - Weakness SNOMED: 25969309 (4) Pressure ulcer ICD Codes: L89.90 - Decubitus ulcer SNOMED: 176538057 (5) Paraspinal abscess ICD Codes: M46.20 - Osteomyelitis of vertebra, site unspecified SNOMED: 35880308541745288 (6) Sacral decubitus ulcer, stage IV ICD Codes: L89.154 - Pressure ulcer of sacral region, stage 4 SNOMED: 267174011, 631703517 Status: stable Assessment/Plan pain control b-blockade colostomy and wound care dc planning tomorrow if stable Subjective ROS Limited/Unobtainable: No Constitutional: Reports: malaise, weakness HEENT: Reports: no symptoms Cardiovascular: Reports: chest pain Respiratory: Reports: shortness of breath Gastrointestinal/Abdominal: Reports: no symptoms Genitourinary: Reports: no symptoms 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: Reports: pre-existing deficit Endocrine: Reports: no symptoms Hematologic/Lymphatic: Reports: no symptoms Allergies: Coded Allergies: CEFTRIAXONE (Verified Allergy, Intermediate, SOB, HR-140bpm, face swollen , pt became red, 10/24/15) CODEINE (Verified Allergy, Intermediate, SWELLING, 01/03/11) LATEX (Verified Allergy, Intermediate, SWELLING, 01/03/11) PIPERACILLIN (Verified Allergy, Intermediate, Itching, 08/29/15) 08/29/15 tolerates Ceftaroline TAZOBACTAM (Verified Allergy, Intermediate, Itching, 01/29/15) POLYMYXIN B (Verified Allergy, Mild, Rash, 04/08/16) Suspected allergy reported by VANCOMYCIN (Verified Allergy, Mild, 07/15/14) ASPARAGINASE (Verified Allergy, Unknown, 01/28/14) CEFUROXIME (Unverified Allergy, Unknown, 04/19/16) IRON (Verified Allergy, Unknown, 01/28/14) LATEX, NATURAL RUBBER (Unverified Allergy, Unknown, 06/18/16) All Systems: reviewed and negative except above Subjective c/o pain. currently controlled. stable cp/sob. whole body hurts Objective Last 24 Hour Vital Signs Date Time Temp Pulse Resp B/P (MAP) Pulse Ox O2 Delivery O2 Flow Rate FiO2 08/14/17 08:03 97.7 102 20 113/70 96 Room Air 97.7 08/14/17 07:24 101 16 Room Air 21 08/14/17 04:00 97.5 98 20 109/71 96 97.5 08/14/17 04:00 93 08/14/17 00:00 97.2 93 20 115/68 98 97.2 08/14/17 00:00 99 08/13/17 21:06 96 18 Room Air 21 08/13/17 20:24 109 118/72 08/13/17 20:00 97.9 109 20 118/72 98 97.9 08/13/17 20:00 107 08/13/17 16:00 99 08/13/17 16:00 97.5 103 18 133/86 98 97.5 08/13/17 12:00 97.7 99 18 142/85 99 97.7 08/13/17 12:00 107 Intake and Output 08/13/17 08/14/17 19:00 07:00 Intake Total 120 ml Balance 120 ml Intake Oral 120 ml # Voids 6 Laboratory Tests 08/13/17 17:55: Urine Color Pale yellow, Urine Appearance Slightly cloudy, Urine pH 6, Urine Specific [place] 1.010, Urine Protein 1+H, Urine Glucose (UA) Negative, Urine Ketones Negative, Urine Occult Blood Negative, Urine Nitrite Negative, Urine Bilirubin Negative, Urine Urobilinogen Normal, Urine Leukocyte Esterase 2+H, Urine RBC 0-2, Urine WBC 5-10H, Urine Squamous Epithelial Cells Few, Urine Bacteria Few 08/14/17 06:00: Magnesium Level 1.8 Height (Feet): 5 Height (Inches): 4.00 Weight (Pounds): 197 General Appearance: WD/WN, alert Neck: supple Cardiovascular: normal rate, regular rhythm Respiratory/Chest: chest wall non-tender, lungs clear, normal breath sounds, no respiratory distress Abdomen: normal bowel sounds, non tender, soft, no organomegaly Neurologic: motor weakness BONG BRUNNER August 14, 2017 08:16
[2017-08-14] MEDS: Heparin 5000 units/ml inj INJ SCH ×2 (08:54→20:11)
[2017-08-14] MEDS: Metoprolol Tartrate 50mg tab ORAL SCH ×2 (09:00→20:05)
[2017-08-14 12:00] VITALS: BP 121/75
[2017-08-14] MEDS: NS IV SCH (15:41)
[2017-08-14] MEDS: DAPTOMYCIN IV SCH (15:41)
[2017-08-14 16:00] VITALS: BP 129/83
--- NOTE | 2017-08-14 17:12 | Pulmonolgy Critical Care Note ---
Critical Care - Asmt/Plan Assessment/Plan: Patient is a direct admit from [place]. [facility] sacral wound. Patient was previously discharged on 08/11 and is now re admitted, Patient alert and responsive, oriented x4 and able to verbalize needs. Pain controlled Assessment/Plan pleural effusions s/p tap pulmonary infiltrates multiple abcesses Stage 4 Decubitus Ulcer Colostomy paraplegia paraspinous abcess s/p tap sinus tachycardia, transient PLAN care noted monitor imaging for change as needed monitor oxygen needs for change IV antibiotics noted ID noted and reviewed awaiting disposition per for home iv antibiotics supportive care reviewed MD notes discussed monitor oxygen needs; currently stable with management impression, plan, and exam edited and reviewed in detail care discussed with RN DC planning Subjective Allergies: Coded Allergies: CEFTRIAXONE (Verified Allergy, Intermediate, SOB, HR-140bpm, face swollen , pt became red, 10/24/15) CODEINE (Verified Allergy, Intermediate, SWELLING, 01/03/11) LATEX (Verified Allergy, Intermediate, SWELLING, 01/03/11) PIPERACILLIN (Verified Allergy, Intermediate, Itching, 08/29/15) 08/29/15 tolerates Ceftaroline TAZOBACTAM (Verified Allergy, Intermediate, Itching, 01/29/15) POLYMYXIN B (Verified Allergy, Mild, Rash, 04/08/16) Suspected allergy reported by MD VANCOMYCIN (Verified Allergy, Mild, 07/15/14) ASPARAGINASE (Verified Allergy, Unknown, 01/28/14) CEFUROXIME (Unverified Allergy, Unknown, 04/19/16) IRON (Verified Allergy, Unknown, 01/28/14) LATEX, NATURAL RUBBER (Unverified Allergy, Unknown, 06/18/16) Subjective care noted and reviewed no sob or cp MD notes reviewed overnight events noted Objective Last 24 Hour Vital Signs Date Time Temp Pulse Resp B/P (MAP) Pulse Ox O2 Delivery O2 Flow Rate FiO2 08/11/17 08:00 98.2 96 20 116/69 96 Room Air 98.2 08/11/17 06:18 97.7 08/11/17 06:18 97.7 08/11/17 05:56 97.7 08/11/17 05:19 97.7 08/11/17 04:00 97.7 97 18 100/55 96 Room Air 97.7 08/11/17 04:00 97 08/11/17 02:56 97.9 08/11/17 00:00 106 08/11/17 00:00 97.9 104 20 115/74 96 Room Air 97.9 08/10/17 23:41 97.2 08/10/17 21:40 97.2 08/10/17 20:38 97.2 08/10/17 20:37 110 125/72 08/10/17 20:00 106 08/10/17 20:00 98.4 106 18 123/62 96 Room Air 98.4 08/10/17 19:54 110 20 Room Air 21 08/10/17 16:00 97.2 98 20 124/76 95 Room Air 97.2 08/10/17 16:00 99 08/10/17 14:00 98.6 08/10/17 12:00 97.7 93 20 106/69 98 Room Air 97.7 08/10/17 12:00 96 08/10/17 08:39 106 117/69 Intake and Output 08/10/17 08/11/17 19:00 07:00 Intake Total 200 ml 600 ml Balance 200 ml 600 ml Intake Oral 200 ml 600 ml # Voids 1 3 Objective WDWN NAD symmetric breath sounds without rhonchi or wheeze [id number] without MRG NABS nontender no HSM no CCE paraplegic Critical Care - Objective Last 24 Hour Vital Signs Date Time Temp Pulse Resp B/P (MAP) Pulse Ox O2 Delivery O2 Flow Rate FiO2 08/14/17 16:16 97.7 08/14/17 16:00 98.1 107 18 129/83 99 Room Air 98.1 08/14/17 16:00 105 08/14/17 15:40 97.7 08/14/17 12:05 97.7 08/14/17 12:00 104 08/14/17 12:00 97.5 100 18 121/75 98 Room Air 97.5 08/14/17 09:00 102 108/70 08/14/17 08:52 97.7 08/14/17 08:03 97.7 102 20 113/70 96 Room Air 97.7 08/14/17 08:00 99 08/14/17 07:24 101 16 Room Air 21 08/14/17 04:00 97.5 98 20 109/71 96 97.5 08/14/17 04:00 93 08/14/17 00:00 97.2 93 20 115/68 98 97.2 08/14/17 00:00 99 08/13/17 21:06 96 18 Room Air 21 08/13/17 20:24 109 118/72 08/13/17 20:00 97.9 109 20 118/72 98 97.9 08/13/17 20:00 107 Critical Care - Subjective ROS Limited/Unobtainable: No Condition: improving IV Access: peripheral EKG Rhythm: Sinus Rhythm FI02: 21 Sputum Amount: None I&O: Intake and Output 08/13/17 08/14/17 19:00 07:00 Intake Total 480 ml 75 ml Balance 480 ml 75 ml Intake Oral 480 ml IV Total 75 ml # Voids 2 6 Karthik Devine M.D. August 14, 2017 17:12
[2017-08-14 20:00] VITALS: BP 117/75
[2017-08-14] MEDS: Dyna-Hex 2% Top Sol 2oz TOPIC SCH (20:16)
[2017-08-15] VITALS: BP 128/76
[2017-08-15] MEDS: Morphine Sulfate 4mg/ml Inj IVP PRN ×6 (03:17→21:22)
[2017-08-15] MEDS: DiphenhydrAMINE 50mg/ml Inj IVP PRN ×3 (03:17→18:02)
[2017-08-15 04:00] VITALS: BP 126/77
[2017-08-15] MEDS ORDERED: CUBICIN1 MG IV (07:57)
[2017-08-15 08:00] VITALS: BP 129/78
[2017-08-15] MEDS: Heparin 5000 units/ml inj INJ SCH ×2 (09:00→21:27)
[2017-08-15] MEDS: Metoprolol Tartrate 50mg tab ORAL SCH ×2 (09:13→21:22)
[2017-08-15 12:00] VITALS: BP 131/85
[2017-08-15] MEDS: DAPTOMYCIN IV SCH (14:14)
[2017-08-15] MEDS: NS IV SCH (14:14)
--- NOTE | 2017-08-15 15:44 | Diagnostic Imaging Report ---
Indication: Line placement Comparison: None A single view chest radiograph was obtained. Findings: The PICC line was placed. Tip is projected over the left innominate vein unchanged. The lungs are essentially clear. There may be some minimal left basal atelectasis. Heart size is normal. IMPRESSION: No new line. No change compared to the prior study.
[2017-08-15 16:00] VITALS: BP 130/80
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
[2017-08-15] MEDS ORDERED: Cyclobenzaprine 10mg Tab ORAL PRN (19:00)
[2017-08-15] MEDS ORDERED: LORazepam Inj 2mg/ml 1ml IV PRN (19:00)
[2017-08-15] MEDS ORDERED: Albuterol 90mcg Inhaler 8gm INH PRN (19:30)
[2017-08-15 20:00] VITALS: BP 123/84
[2017-08-15] MEDS ORDERED: Dyna-Hex 2% Top Sol 2oz TOPIC SCH (20:00)
--- NOTE | 2017-08-15 23:17 | Pulmonolgy Critical Care Note ---
Critical Care - Asmt/Plan Assessment/Plan: Patient is a direct admit from [place]. [facility] sacral wound. Patient was previously discharged on 08/11 and is now re admitted, Patient alert and responsive, oriented x4 and able to verbalize needs. Pain controlled Assessment/Plan pleural effusions s/p tap pulmonary infiltrates multiple abcesses Stage 4 Decubitus Ulcer Colostomy paraplegia paraspinous abcess s/p tap sinus tachycardia, transient PLAN care noted monitor imaging for change as needed monitor oxygen needs for change IV antibiotics noted ID noted and reviewed awaiting disposition per for home iv antibiotics supportive care reviewed MD notes discussed monitor oxygen needs; currently stable with management impression, plan, and exam edited and reviewed in detail care discussed with RN DC planning for tomorrow Subjective Allergies: Coded Allergies: CEFTRIAXONE (Verified Allergy, Intermediate, SOB, HR-140bpm, face swollen , pt became red, 10/24/15) CODEINE (Verified Allergy, Intermediate, SWELLING, 01/03/11) LATEX (Verified Allergy, Intermediate, SWELLING, 01/03/11) PIPERACILLIN (Verified Allergy, Intermediate, Itching, 08/29/15) 08/29/15 tolerates Ceftaroline TAZOBACTAM (Verified Allergy, Intermediate, Itching, 01/29/15) POLYMYXIN B (Verified Allergy, Mild, Rash, 04/08/16) Suspected allergy reported by MD VANCOMYCIN (Verified Allergy, Mild, 07/15/14) ASPARAGINASE (Verified Allergy, Unknown, 01/28/14) CEFUROXIME (Unverified Allergy, Unknown, 04/19/16) IRON (Verified Allergy, Unknown, 01/28/14) LATEX, NATURAL RUBBER (Unverified Allergy, Unknown, 06/18/16) Subjective care noted and reviewed no sob or cp MD notes reviewed overnight events noted Objective Last 24 Hour Vital Signs Date Time Temp Pulse Resp B/P (MAP) Pulse Ox O2 Delivery O2 Flow Rate FiO2 08/11/17 08:00 98.2 96 20 116/69 96 Room Air 98.2 08/11/17 06:18 97.7 08/11/17 06:18 97.7 08/11/17 05:56 97.7 08/11/17 05:19 97.7 08/11/17 04:00 97.7 97 18 100/55 96 Room Air 97.7 08/11/17 04:00 97 08/11/17 02:56 97.9 08/11/17 00:00 106 08/11/17 00:00 97.9 104 20 115/74 96 Room Air 97.9 08/10/17 23:41 97.2 08/10/17 21:40 97.2 08/10/17 20:38 97.2 08/10/17 20:37 110 125/72 08/10/17 20:00 106 08/10/17 20:00 98.4 106 18 123/62 96 Room Air 98.4 08/10/17 19:54 110 20 Room Air 21 08/10/17 16:00 97.2 98 20 124/76 95 Room Air 97.2 08/10/17 16:00 99 08/10/17 14:00 98.6 08/10/17 12:00 97.7 93 20 106/69 98 Room Air 97.7 08/10/17 12:00 96 08/10/17 08:39 106 117/69 Intake and Output 08/10/17 08/11/17 19:00 07:00 Intake Total 200 ml 600 ml Balance 200 ml 600 ml Intake Oral 200 ml 600 ml # Voids 1 3 Objective WDWN NAD symmetric breath sounds without rhonchi or wheeze [id number] without MRG NABS nontender no HSM no CCE paraplegic Critical Care - Objective Last 24 Hour Vital Signs Date Time Temp Pulse Resp B/P (MAP) Pulse Ox O2 Delivery O2 Flow Rate FiO2 08/15/17 21:22 92 123/84 08/15/17 20:30 92 18 Room Air 21 08/15/17 20:00 98.1 108 20 123/84 96 98.1 08/15/17 16:00 97.9 88 18 130/80 98 Room Air 97.9 08/15/17 16:00 91 08/15/17 14:45 98.0 08/15/17 14:15 98.0 08/15/17 12:00 87 08/15/17 12:00 98.0 82 18 131/85 98 Room Air 98.0 08/15/17 09:13 89 129/78 08/15/17 08:55 94 18 Room Air 21 08/15/17 08:00 85 08/15/17 08:00 98.0 89 20 129/78 97 Room Air 98.0 08/15/17 04:00 97.5 84 21 126/77 100 Room Air 97.5 08/15/17 04:00 86 08/15/17 00:00 98.6 80 20 128/76 98 Room Air 98.6 08/15/17 00:00 96 Critical Care - Subjective ROS Limited/Unobtainable: No Condition: stable IV Access: peripheral EKG Rhythm: Sinus Rhythm FI02: 21 Sputum Amount: None I&O: Intake and Output 08/14/17 08/15/17 19:00 07:00 Intake Total 975 ml 75 ml Output Total 1400 ml Balance 975 ml -1325 ml Intake Oral 600 ml IV Total 375 ml 75 ml Output Urine Total 1400 ml # Voids 2 Karthik Devine M.D. August 15, 2017 23:17
[2017-08-16 00:15] VITALS: BP 121/84
[2017-08-16] MEDS: Morphine Sulfate 4mg/ml Inj IVP PRN ×3 (01:54→11:02)
[2017-08-16] MEDS: DiphenhydrAMINE 50mg/ml Inj IVP PRN ×2 (01:54→08:05)
[2017-08-16 04:00] VITALS: BP 126/88
--- NOTE | 2017-08-16 07:37 | General Progress Note ---
Assessment/Plan Problem List: (1) Paraplegia ICD Codes: G82.20 - Paraplegia SNOMED: 37236505 (2) Anemia ICD Codes: D64.9 - Anemia, unspecified SNOMED: 308372552 (3) Generalized weakness ICD Codes: R53.1 - Weakness SNOMED: 01502295 (4) Pressure ulcer ICD Codes: L89.90 - Decubitus ulcer SNOMED: 741031677 (5) Paraspinal abscess ICD Codes: M46.20 - Osteomyelitis of vertebra, site unspecified SNOMED: 68492130309514761 (6) Sacral decubitus ulcer, stage IV ICD Codes: L89.154 - Pressure ulcer of sacral region, stage 4 SNOMED: 261018008, 573090138 Status: stable, progressing Assessment/Plan pain control b-blockade colostomy and wound care dc planning tomorrow if stable Subjective ROS Limited/Unobtainable: No Constitutional: Reports: malaise, weakness HEENT: Reports: no symptoms Cardiovascular: Reports: no symptoms Respiratory: Reports: no symptoms Gastrointestinal/Abdominal: Reports: no symptoms Genitourinary: Reports: no symptoms 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: Reports: pre-existing deficit Endocrine: Reports: no symptoms Hematologic/Lymphatic: Reports: no symptoms Allergies: Coded Allergies: CEFTRIAXONE (Verified Allergy, Intermediate, SOB, HR-140bpm, face swollen , pt became red, 10/24/15) CODEINE (Verified Allergy, Intermediate, SWELLING, 01/03/11) LATEX (Verified Allergy, Intermediate, SWELLING, 01/03/11) PIPERACILLIN (Verified Allergy, Intermediate, Itching, 08/29/15) 08/29/15 tolerates Ceftaroline TAZOBACTAM (Verified Allergy, Intermediate, Itching, 01/29/15) POLYMYXIN B (Verified Allergy, Mild, Rash, 04/08/16) Suspected allergy reported by VANCOMYCIN (Verified Allergy, Mild, 07/15/14) ASPARAGINASE (Verified Allergy, Unknown, 01/28/14) CEFUROXIME (Unverified Allergy, Unknown, 04/19/16) IRON (Verified Allergy, Unknown, 01/28/14) LATEX, NATURAL RUBBER (Unverified Allergy, Unknown, 06/18/16) All Systems: reviewed and negative except above Subjective could not be discharged yesterday due to transportation problem. no new complaints. pain controlled. no fever or chills. Objective Last 24 Hour Vital Signs Date Time Temp Pulse Resp B/P (MAP) Pulse Ox O2 Delivery O2 Flow Rate FiO2 08/16/17 04:00 98.3 89 20 126/88 96 98.3 08/16/17 00:15 97.6 98 20 121/84 97 97.6 08/15/17 21:22 92 123/84 08/15/17 20:30 92 18 Room Air 21 08/15/17 20:00 98.1 108 20 123/84 96 98.1 08/15/17 16:00 97.9 88 18 130/80 98 Room Air 97.9 08/15/17 16:00 91 08/15/17 14:45 98.0 08/15/17 14:15 98.0 08/15/17 12:00 87 08/15/17 12:00 98.0 82 18 131/85 98 Room Air 98.0 08/15/17 09:13 89 129/78 08/15/17 08:55 94 18 Room Air 21 08/15/17 08:00 85 08/15/17 08:00 98.0 89 20 129/78 97 Room Air 98.0 Intake and Output 08/15/17 08/16/17 19:00 07:00 Intake Total 1816.25 ml 375 ml Output Total 1200 ml 1100 ml Balance 616.25 ml -725 ml Intake Oral 1000 ml IV Total 816.25 ml 375 ml Output Urine Total 1200 ml 1100 ml Height (Feet): 5 Height (Inches): 4.00 Weight (Pounds): 197 Objective General Appearance: WD/WN, alert. no distress. nontoxic. Neck: supple Cardiovascular: normal rate, regular rhythm Respiratory/Chest: chest wall non-tender, lungs clear, normal breath sounds, no respiratory distress Abdomen: normal bowel sounds, non tender, soft, no organomegaly Neurologic: motor weakness Skin: multiple wounds BONG BRUNNER August 16, 2017 07:37
[2017-08-16 08:07] VITALS: BP 126/88
[2017-08-16] MEDS: Metoprolol Tartrate 50mg tab ORAL SCH (08:07)
[2017-08-16] MEDS: Heparin 5000 units/ml inj INJ SCH (08:16)
[2017-08-16] MEDS ORDERED: DAPTOMYCIN IV SCH (14:00)
[2017-08-16] MEDS ORDERED: NS IV SCH (14:00)
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
== END 2017-08-16 14:31 | disposition home health service (06) | DRG 555 ==
LOC: 2E 08-12 00:35 → 4E 08-15 18:41
DX: M79.605 Pain in left leg (principal); L89.154 Pressure ulcer of sacral region, stage 4; G06.1 Intraspinal abscess and granuloma; R53.2 Functional quadriplegia; L02.212 Cutaneous abscess of back [any part, except buttock and flank]; G82.20 Paraplegia, unspecified; M79.604 Pain in right leg; D64.9 Anemia, unspecified; V03.99XA Pedestrian with other conveyance injured in collision with car, pick-up truck or van, unspecified whether traffic or nontraffic accident, initial encounter; Z99.3 Dependence on wheelchair; Z88.6 Allergy status to analgesic agent; Z88.1 Allergy status to other antibiotic agents; Z88.8 Allergy status to other drugs, medicaments and biological substances; Z88.0 Allergy status to penicillin; R00.0 Tachycardia, unspecified; J45.909 Unspecified asthma, uncomplicated; G89.29 Other chronic pain
CPT/HCPCS: 36415; 71045; 80053; 81001; 83735; 84100; 85025; 85610; 85730; 94664; J2405

== ENCOUNTER 2017-08-29 10:45 | Outpatient (RCR) | payer MEDICARE, OTHER ==
[~2017-08-29 10:45] MED LIST changes: +CUBICIN1 MG IV
== END 2017-09-08 | disposition home or self-care (01) ==
LOC: WCC 10:45
DX: L98.492 Non-pressure chronic ulcer of skin of other sites with fat layer exposed (principal); L97.122 Non-pressure chronic ulcer of left thigh with fat layer exposed; L97.112 Non-pressure chronic ulcer of right thigh with fat layer exposed; L89.154 Pressure ulcer of sacral region, stage 4; L89.323 Pressure ulcer of left buttock, stage 3; E11.9 Type 2 diabetes mellitus without complications; Z88.6 Allergy status to analgesic agent
CPT/HCPCS: 11042; 11044; 11047

== ENCOUNTER 2017-09-12 09:52 | Outpatient (RCR) | payer MEDICARE, OTHER | END 2017-10-08 | disposition home or self-care (01) | LOC: WCC 09:52 | DX: L98.492 Non-pressure chronic ulcer of skin of other sites with fat layer exposed (principal); L97.122 Non-pressure chronic ulcer of left thigh with fat layer exposed; L97.112 Non-pressure chronic ulcer of right thigh with fat layer exposed; L89.154 Pressure ulcer of sacral region, stage 4; L89.323 Pressure ulcer of left buttock, stage 3; Z88.6 Allergy status to analgesic agent; Z88.8 Allergy status to other drugs, medicaments and biological substances; E11.9 Type 2 diabetes mellitus without complications; G83.9 Paralytic syndrome, unspecified | CPT/HCPCS: 11042; 11043; 11044; 11045; 11046; 11047 ==

== ENCOUNTER 2017-10-10 08:38 | Outpatient (RCR) | payer MEDICARE, OTHER | END 2017-11-08 | disposition home or self-care (01) | LOC: WCC 08:38 | DX: L98.492 Non-pressure chronic ulcer of skin of other sites with fat layer exposed (principal); L97.122 Non-pressure chronic ulcer of left thigh with fat layer exposed; L97.112 Non-pressure chronic ulcer of right thigh with fat layer exposed; L89.154 Pressure ulcer of sacral region, stage 4; L89.323 Pressure ulcer of left buttock, stage 3; Z88.6 Allergy status to analgesic agent; Z88.8 Allergy status to other drugs, medicaments and biological substances; E11.9 Type 2 diabetes mellitus without complications; G83.9 Paralytic syndrome, unspecified | CPT/HCPCS: 11042; 11043; 11044; 11045; 11046; 11047; 97605 ==

== ENCOUNTER 2017-11-14 10:37 | Outpatient (RCR) | payer MEDICARE, OTHER ==
[2017-11-21] MEDS ORDERED: FAMOTIDINE20 MG ORAL (14:14)
[2017-11-21] MEDS ORDERED: EPIPEN 2-P0.3 MG/0.3 IM (14:14)
[2017-11-21] MEDS ORDERED: BENADRYL25 M3 PO (14:14)
[2017-11-21] MEDS ORDERED: PREDNISONE50 MG ORAL (14:16)
== END 2017-12-09 | disposition home or self-care (01) ==
LOC: WCC 10:37
DX: L98.492 Non-pressure chronic ulcer of skin of other sites with fat layer exposed (principal); L97.122 Non-pressure chronic ulcer of left thigh with fat layer exposed; L97.112 Non-pressure chronic ulcer of right thigh with fat layer exposed; L89.154 Pressure ulcer of sacral region, stage 4; L89.323 Pressure ulcer of left buttock, stage 3; Z88.6 Allergy status to analgesic agent; Z88.8 Allergy status to other drugs, medicaments and biological substances; E11.9 Type 2 diabetes mellitus without complications; G83.9 Paralytic syndrome, unspecified
CPT/HCPCS: 11042; 11043; 11044; 11045; 11046; 11047; 97605

== ENCOUNTER 2017-11-21 12:30 | Outpatient (CLI) | payer MEDICARE, OTHER ==
[2017-11-21] MEDS ORDERED: BENADRYL25 M3 PO (14:14)
[2017-11-21] MEDS ORDERED: FAMOTIDINE20 MG ORAL (14:14)
[2017-11-21] MEDS ORDERED: EPIPEN 2-P0.3 MG/0.3 IM (14:14)
[2017-11-21] MEDS ORDERED: PREDNISONE50 MG ORAL (14:16)
--- NOTE | 2017-11-21 14:36 | Diagnostic Imaging Report ---
Indication: Chronic back pain, history of spondylitis Technique: IV administration nonionic contrast Spiral acquisitions obtained through the for spine Multiplanar reconstructions were generated. Total dose length product 1026.84 mGycm. CTDIvol(s) 18.4 mGy. Radiation dose was minimized using automated exposure control Comparison: Abdomen pelvis CT dated 07/26/2017 Findings: Again demonstrated is essentially complete destruction of the L1 and L2 vertebral bodies, with essentially complete replacement of the vertebral bodies with soft tissue attenuation material. A rim of bone surrounds the space previously occupied by the vertebral bodies, presumably a combination of bone about negative bone and heterotopic ossification. There is acute kyphotic abnormality. There is some heterotopic new bone resulting in some ankylosis of the posterior elements. The extent of the osseous destruction and alignment abnormality is unchanged from the previous CT abdomen and pelvis. There is also slight degree of destruction of the superior endplate of L3 and of the inferior endplate of T12. On the previous and multiple earlier exams, there was a large collection surrounding the L1 and L2 vertebral bodies and extending cephalad beyond them. This collection has nearly resolved, with a much thinner rim of what now appears to be soft tissue surrounding the destroyed segments. The highest cuts demonstrate what appears to be a trace amount of fluid to the left of the T11 vertebral body. There is trace pleural fluid on the right. The previously demonstrated psoas fluid collections have also resolved. At the L3 and L4 level, heterotopic new bone is seen along the posterior elements in the midline and to the left. This is unchanged from the previous study. Anterior osteophytes are seen bridging L4 and L5. As previously, there is widening of and osseous irregularity of the articular surfaces on both sides of the left sacroiliac joint. This appearance is unchanged. The right sacroiliac joint is unremarkable. The lower thoracic spine also appears unchanged. No new osseous destructive changes are evident. As previously, there is some infiltration of the subcutaneous fat posterior to the upper and mid lumbar spine, although this appears less severe than on the previous exam. Retrosacral decubitus changes and destruction of the coccyx are again demonstrated. However, the previously demonstrated decubitus ulcer now appears to have filled in with what is presumably granulation tissue. As there is no attenuation differences between the spinal canal and the surrounding inflammatory tissue at T12-L1 and L1-2, and L2-3, the status of the spinal canal in these locations is indeterminate. At the remaining disc levels, no definite significant disc bulge or protrusion, spinal stenosis, or neural foraminal stenosis is demonstrated. No new fluid collections are evident. The included abdominal and pelvic viscera are remarkable for the presence of gallstones, also previously demonstrated. Impression: Previously demonstrated advanced destructive changes of the L1 and L2 vertebral bodies and adjacent T12 and L3 endplates are again demonstrated and unchanged. However, the previously demonstrated large paraspinal fluid collection has nearly completely resolved, with only trace residual fluid seen adjacent to T11 and T12 on the left. Previously demonstrated bilateral psoas and iliacus abscesses likewise appear to have resolved without significant residual. Chronic appearing destructive changes of the left sacroiliac joint are unchanged from previous exam No new osseous destruction demonstrated Previously demonstrated sacral decubitus ulcer appears to have filled in with what is presumably granulation tissue Other stable osseous changes, as described, including chronic appearing destruction of the coccyx, considerable heterotopic new bone surrounding the posterior elements of the lumbar spine. Incidental finding of cholelithiasis The CT scanner at [facility] is accredited by the [employer] and the scans are performed using protocols designed to limit radiation exposure to as low as reasonably achievable to attain images of sufficient resolution adequate for diagnostic evaluation.
--- NOTE | 2017-11-21 15:11 | Diagnostic Imaging Report ---
Indication: Chronic back pain, history of multiple pelvic abscesses Technique: Patient given oral contrast. IV administration nonionic contrast. Spiral acquisitions obtained through the pelvis. Multiplanar reconstructions generated. Total dose length product 1026 mGycm. CTDIvol(s) 18 mGy. Dose reduction achieved using automated exposure control Comparison: 07/26/2017 Findings: Previously demonstrated psoas and iliacus fluid collections are no longer evident. Widening of the sacroiliac joint and irregularity of the surfaces of both sides of the joint space are unchanged. The right sacroiliac joint is unremarkable. Again demonstrated is destructive change of the distal sacrum and coccyx, appearance of which is unchanged. Previously demonstrated retrosacral decubitus ulcer is no longer evident, however. This appears to be filled in with soft tissue attenuation material, presumably granulation tissue. The previously demonstrated subcutaneous gas bubbles are no longer evident Advanced destructive changes of the right hip, with essentially complete destruction of the femoral head, marked deformity and destructive change of the right acetabulum, and extensive heterotopic new bone are again demonstrated. In the right hip joint region, there is a fluid collection which measures approximately 4.6 cm AP by 4.5 cm transverse, equivocally slightly larger than on the prior exam. A single tiny gas bubble is seen within the collection, but the amount of gas within the collection is markedly decreased from the prior study. There is a small fluid collection posteromedial to the proximal femoral shaft which measures 2.2 x 2.2 cm, is slightly larger and more distinct than previously. Previously demonstrated inflammatory changes lateral to the proximal femur appear markedly improved. There is evidence of chronic scarring in this area, but no acute appearing fluid collections are evident. Other more ill-defined fluid collections anterior and medial to the proximal femur are again demonstrated, and probably unchanged. Advanced destructive changes of the left hip, with essentially complete destruction of the femoral head, marked destructive change of the acetabulum are again noted. Again demonstrated is a fluid collection anterior and superior to the proximal femoral shaft which measures 3.4 x 3.6 cm, also evident previously, somewhat more well demarcated on the current study. Unlike previously, no gas is seen within this collection. Considerable abnormal soft tissue attenuation material is seen surrounding the hips and there are numerous osseous fragments and fragments of heterotopic new bone. The large fluid collection previously seen lateral to the left hip within the subcutaneous fat is no longer evident, and only areas of scarring in this region are demonstrated. A smaller collection located more superiorly, lateral to the iliac bone and its associated air bubbles, is no longer evident There is some ulceration of the perineum which appears likely unchanged from the prior exam allowing for slight differences in positioning and projection. Prominent bilateral pelvic lymph nodes measuring up to 2 cm long axis dimension are again demonstrated and appear unchanged. The uterus and ovaries are unchanged, right ovary demonstrating some somewhat prominent follicles. Again demonstrated is a large left lateral ventral hernia containing several small bowel loops. No evidence of obstruction or strangulation is evident. There is marked improvement of previously demonstrated edema of the subcutaneous fat. Gallstones are incidentally noted. Impression: Since prior study of 07/26/2017, interim resolution of previously demonstrated psoas and iliacus presumed abscesses Advanced destructive changes of both hips, as described above and previously. Fluid collections are again demonstrated occupying the space previously occupied by the femoral heads and necks. These are grossly unchanged in size. Note that the gas within the collection on the left has resolved since the prior exam, and gas within the right collection has markedly decreased. The more superficial lateral collections, also presumably abscesses, seen in the bilateral hips on the prior study have resolved, with only residual scar tissue now present in these areas. A superior collection on the left and associated air bubbles is also resolved Advanced destructive changes of the distal sacrum and coccyx are stable. There is been interim marked improvement of the previously reported decubitus ulceration seen in this area. Persistent ulceration in the perineal region Borderline pelvic lymphadenopathy, unchanged, most likely reactive Large ventral hernia containing small bowel loops, also previously reported. No evidence of obstruction or strangulation Since 07/26/2017, interim marked improvement of previously demonstrated subcutaneous fat edema Cholelithiasis, also previously reported The CT scanner at [facility] is accredited by the [employer] and the scans are performed using protocols designed to limit radiation exposure to as low as reasonably achievable to attain images of sufficient resolution adequate for diagnostic evaluation.
== END 2017-11-21 14:30 | disposition home or self-care (01) ==
LOC: CAT 12:30
DX: L98.499 Non-pressure chronic ulcer of skin of other sites with unspecified severity (principal); K43.9 Ventral hernia without obstruction or gangrene; K80.20 Calculus of gallbladder without cholecystitis without obstruction; G89.29 Other chronic pain; M54.9 Dorsalgia, unspecified; J90 Pleural effusion, not elsewhere classified
CPT/HCPCS: 72132; 72193; Q9967

== ENCOUNTER 2017-11-21 13:36 | Emergency (ER) | payer MEDICARE, OTHER ==
[~2017-11-21] VITALS: Ht 165.1 cm; Wt 81.6 kg
[2017-11-21] MEDS ORDERED: DiphenhydrAMINE 50mg/ml Inj IVP ONE (13:45)
[2017-11-21] MEDS ORDERED: Solu-MEDROL 125mg Inj IVP ONE (13:45)
[2017-11-21 14:00] VITALS: BP 112/73
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
[2017-11-21] MEDS ORDERED: BENADRYL25 M3 PO (14:14)
[2017-11-21] MEDS ORDERED: FAMOTIDINE20 MG ORAL (14:14)
[2017-11-21] MEDS ORDERED: EPIPEN 2-P0.3 MG/0.3 IM (14:14)
[2017-11-21] MEDS ORDERED: PREDNISONE50 MG ORAL (14:16)
[2017-11-21 14:20] VITALS: BP 112/73
== END 2017-11-21 14:21 | disposition left against medical advice (07) ==
LOC: EMR 14:05
DX: Y92.538 Other ambulatory health services establishments as the place of occurrence of the external cause (principal); J45.909 Unspecified asthma, uncomplicated; Z91.041 Radiographic dye allergy status; G83.89 Other specified paralytic syndromes
CPT/HCPCS: 96374; 96375; 99284; J1200; J2405; J2930; S0028

== ENCOUNTER 2017-12-12 12:02 | Emergency (ER) | payer MEDICARE, OTHER ==
[~2017-12-12] VITALS: Ht 165.1 cm; Wt 86.2 kg
[~2017-12-12 12:02] MED LIST changes: +BENADRYL25 M3 PO; +EPIPEN 2-P0.3 MG/0.3 IM; +FAMOTIDINE20 MG ORAL; +PREDNISONE50 MG ORAL
[2017-12-12 12:17] VITALS: BP 115/70
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
[2017-12-12] MEDS ORDERED: Morphine Sulfate 2mg/ml Inj IM ONE (12:30)
[2017-12-12] MEDS ORDERED: Methocarbamol 750mg tab ORAL ONE (12:30)
[2017-12-12] MEDS ORDERED: ROBAXIN-750750 MG PO ×2 (13:36→14:06)
[2017-12-12 13:38] VITALS: BP 115/70
== END 2017-12-12 13:40 | disposition home or self-care (01) ==
LOC: EDBD 12:02 → EMR 12:37
DX: S39.012A Strain of muscle, fascia and tendon of lower back, initial encounter (principal); V43.52XA Car driver injured in collision with other type car in traffic accident, initial encounter; Y92.410 Unspecified street and highway as the place of occurrence of the external cause; J45.909 Unspecified asthma, uncomplicated; Z88.8 Allergy status to other drugs, medicaments and biological substances
CPT/HCPCS: 96372; 99283; J2270

== ENCOUNTER 2017-12-26 14:55 | Outpatient (RCR) | payer MEDICARE, OTHER ==
[~2017-12-26 14:55] MED LIST changes: +ROBAXIN-750750 MG PO
== END 2018-01-08 | disposition home or self-care (01) ==
LOC: WCC 14:55
DX: L98.492 Non-pressure chronic ulcer of skin of other sites with fat layer exposed (principal); L97.122 Non-pressure chronic ulcer of left thigh with fat layer exposed; L97.112 Non-pressure chronic ulcer of right thigh with fat layer exposed; L89.154 Pressure ulcer of sacral region, stage 4; L89.323 Pressure ulcer of left buttock, stage 3; Z88.6 Allergy status to analgesic agent; E11.9 Type 2 diabetes mellitus without complications
CPT/HCPCS: 11042; 11043; 11046

== ENCOUNTER 2018-01-09 09:28 | Outpatient (RCR) | payer MEDICARE, OTHER | END 2018-02-08 | disposition home or self-care (01) | LOC: WCC 09:28 | DX: L98.492 Non-pressure chronic ulcer of skin of other sites with fat layer exposed (principal); L97.122 Non-pressure chronic ulcer of left thigh with fat layer exposed; L97.112 Non-pressure chronic ulcer of right thigh with fat layer exposed; L89.154 Pressure ulcer of sacral region, stage 4; L89.323 Pressure ulcer of left buttock, stage 3; E11.9 Type 2 diabetes mellitus without complications; G83.9 Paralytic syndrome, unspecified | CPT/HCPCS: 11042; 11043; 11044 ==

== ENCOUNTER 2018-02-09 13:44 | Outpatient (RCR) | payer MEDICARE, OTHER | END 2018-03-10 | disposition home or self-care (01) | LOC: WCC 13:44 | DX: L98.492 Non-pressure chronic ulcer of skin of other sites with fat layer exposed (principal); L97.122 Non-pressure chronic ulcer of left thigh with fat layer exposed; L97.112 Non-pressure chronic ulcer of right thigh with fat layer exposed; L89.154 Pressure ulcer of sacral region, stage 4; L89.323 Pressure ulcer of left buttock, stage 3; L89.313 Pressure ulcer of right buttock, stage 3; E11.9 Type 2 diabetes mellitus without complications; G83.9 Paralytic syndrome, unspecified; Z88.6 Allergy status to analgesic agent; Z88.8 Allergy status to other drugs, medicaments and biological substances | CPT/HCPCS: 11042; 11043; 11044 ==

== ENCOUNTER 2018-03-13 10:30 | Outpatient (RCR) | payer MEDICARE, OTHER | END 2018-04-10 | disposition home or self-care (01) | LOC: WCC 10:30 | DX: L98.492 Non-pressure chronic ulcer of skin of other sites with fat layer exposed (principal); L97.122 Non-pressure chronic ulcer of left thigh with fat layer exposed; L97.112 Non-pressure chronic ulcer of right thigh with fat layer exposed; L89.154 Pressure ulcer of sacral region, stage 4; L89.323 Pressure ulcer of left buttock, stage 3; L89.313 Pressure ulcer of right buttock, stage 3; E11.9 Type 2 diabetes mellitus without complications; Z88.8 Allergy status to other drugs, medicaments and biological substances; Z88.6 Allergy status to analgesic agent; G82.20 Paraplegia, unspecified | CPT/HCPCS: 11042; 11043 ==

== ENCOUNTER 2018-04-17 10:53 | Outpatient (RCR) | payer MEDICARE, OTHER | END 2018-05-11 | disposition home or self-care (01) | LOC: WCC 10:53 | DX: L98.492 Non-pressure chronic ulcer of skin of other sites with fat layer exposed (principal); L97.122 Non-pressure chronic ulcer of left thigh with fat layer exposed; L97.112 Non-pressure chronic ulcer of right thigh with fat layer exposed; L89.154 Pressure ulcer of sacral region, stage 4; L89.323 Pressure ulcer of left buttock, stage 3; L89.313 Pressure ulcer of right buttock, stage 3; Z88.6 Allergy status to analgesic agent; Z88.8 Allergy status to other drugs, medicaments and biological substances | CPT/HCPCS: 11042; 11043; 11044 ==

== ENCOUNTER 2018-05-22 10:31 | Outpatient (RCR) | payer MEDICARE, OTHER | END 2018-06-08 | disposition home or self-care (01) | LOC: WCC 10:31 | DX: L98.492 Non-pressure chronic ulcer of skin of other sites with fat layer exposed (principal); L97.122 Non-pressure chronic ulcer of left thigh with fat layer exposed; L97.112 Non-pressure chronic ulcer of right thigh with fat layer exposed; L89.154 Pressure ulcer of sacral region, stage 4; L89.323 Pressure ulcer of left buttock, stage 3; L89.313 Pressure ulcer of right buttock, stage 3; E11.9 Type 2 diabetes mellitus without complications; G83.9 Paralytic syndrome, unspecified; Z87.891 Personal history of nicotine dependence; Z88.6 Allergy status to analgesic agent | CPT/HCPCS: 11042; 11044 ==

== ENCOUNTER 2018-06-12 10:15 | Outpatient (RCR) | payer MEDICARE, OTHER | END 2018-07-09 | disposition home or self-care (01) | LOC: WCC 10:15 | DX: L98.492 Non-pressure chronic ulcer of skin of other sites with fat layer exposed (principal); L97.122 Non-pressure chronic ulcer of left thigh with fat layer exposed; L97.112 Non-pressure chronic ulcer of right thigh with fat layer exposed; L89.154 Pressure ulcer of sacral region, stage 4; L89.323 Pressure ulcer of left buttock, stage 3; L89.313 Pressure ulcer of right buttock, stage 3; Z88.6 Allergy status to analgesic agent; Z87.891 Personal history of nicotine dependence; E11.9 Type 2 diabetes mellitus without complications | CPT/HCPCS: 11042; 11043 ==

== ENCOUNTER 2018-07-10 08:13 | Outpatient (RCR) | payer MEDICARE, OTHER | END 2018-08-08 | disposition home or self-care (01) | LOC: WCC 08:13 | DX: L98.492 Non-pressure chronic ulcer of skin of other sites with fat layer exposed (principal); L97.122 Non-pressure chronic ulcer of left thigh with fat layer exposed; L97.112 Non-pressure chronic ulcer of right thigh with fat layer exposed; L89.154 Pressure ulcer of sacral region, stage 4; L89.323 Pressure ulcer of left buttock, stage 3; L89.313 Pressure ulcer of right buttock, stage 3; G82.20 Paraplegia, unspecified; Z88.6 Allergy status to analgesic agent; Z88.8 Allergy status to other drugs, medicaments and biological substances | CPT/HCPCS: 11042; 11043 ==

== ENCOUNTER 2018-08-14 10:38 | Outpatient (RCR) | payer MEDICARE, OTHER | END 2018-09-08 | disposition home or self-care (01) | LOC: WCC 10:38 | DX: L98.492 Non-pressure chronic ulcer of skin of other sites with fat layer exposed (principal); L97.122 Non-pressure chronic ulcer of left thigh with fat layer exposed; L97.112 Non-pressure chronic ulcer of right thigh with fat layer exposed; L89.154 Pressure ulcer of sacral region, stage 4; L89.323 Pressure ulcer of left buttock, stage 3; L89.313 Pressure ulcer of right buttock, stage 3; Z88.6 Allergy status to analgesic agent; Z88.8 Allergy status to other drugs, medicaments and biological substances; E11.9 Type 2 diabetes mellitus without complications; G83.9 Paralytic syndrome, unspecified | CPT/HCPCS: 11042; 11043 ==

== ENCOUNTER 2018-09-11 08:52 | Outpatient (RCR) | payer MEDICARE, OTHER | END 2018-10-08 | disposition home or self-care (01) | LOC: WCC 08:52 | DX: L98.492 Non-pressure chronic ulcer of skin of other sites with fat layer exposed (principal); L97.122 Non-pressure chronic ulcer of left thigh with fat layer exposed; L97.112 Non-pressure chronic ulcer of right thigh with fat layer exposed; L89.154 Pressure ulcer of sacral region, stage 4; L89.323 Pressure ulcer of left buttock, stage 3; L89.313 Pressure ulcer of right buttock, stage 3; Z88.6 Allergy status to analgesic agent; Z88.8 Allergy status to other drugs, medicaments and biological substances; Z87.891 Personal history of nicotine dependence | CPT/HCPCS: 11042; 11043 ==

== ENCOUNTER 2018-10-09 10:17 | Outpatient (RCR) | payer MEDICARE, OTHER | END 2018-11-08 | disposition home or self-care (01) | LOC: WCC 10:17 | DX: L98.492 Non-pressure chronic ulcer of skin of other sites with fat layer exposed (principal); L97.122 Non-pressure chronic ulcer of left thigh with fat layer exposed; L97.112 Non-pressure chronic ulcer of right thigh with fat layer exposed; L89.154 Pressure ulcer of sacral region, stage 4; L89.323 Pressure ulcer of left buttock, stage 3; L89.313 Pressure ulcer of right buttock, stage 3; Z88.6 Allergy status to analgesic agent; Z88.8 Allergy status to other drugs, medicaments and biological substances | CPT/HCPCS: 11042; 11043 ==

== ENCOUNTER 2018-11-20 10:15 | Outpatient (RCR) | payer MEDICARE, OTHER | END 2018-12-09 | disposition home or self-care (01) | LOC: WCC 10:15 | DX: L98.492 Non-pressure chronic ulcer of skin of other sites with fat layer exposed (principal); L97.122 Non-pressure chronic ulcer of left thigh with fat layer exposed; L97.112 Non-pressure chronic ulcer of right thigh with fat layer exposed; L89.154 Pressure ulcer of sacral region, stage 4; L89.323 Pressure ulcer of left buttock, stage 3; L89.313 Pressure ulcer of right buttock, stage 3; Z88.6 Allergy status to analgesic agent; Z88.8 Allergy status to other drugs, medicaments and biological substances; G83.9 Paralytic syndrome, unspecified | CPT/HCPCS: 11042; 11043 ==

== ENCOUNTER 2018-12-18 10:52 | Outpatient (RCR) | payer MEDICARE, OTHER | END 2019-01-08 | disposition home or self-care (01) | LOC: WCC 10:52 | DX: L98.492 Non-pressure chronic ulcer of skin of other sites with fat layer exposed (principal); L97.122 Non-pressure chronic ulcer of left thigh with fat layer exposed; L97.112 Non-pressure chronic ulcer of right thigh with fat layer exposed; L89.154 Pressure ulcer of sacral region, stage 4; L89.323 Pressure ulcer of left buttock, stage 3; L89.313 Pressure ulcer of right buttock, stage 3; Z88.6 Allergy status to analgesic agent; L03.116 Cellulitis of left lower limb; E11.9 Type 2 diabetes mellitus without complications; G82.20 Paraplegia, unspecified; Z88.8 Allergy status to other drugs, medicaments and biological substances; Z91.040 Latex allergy status | CPT/HCPCS: 11042; 11043 ==

== ENCOUNTER 2019-01-15 10:43 | Outpatient (RCR) | payer MEDICARE, OTHER | END 2019-02-08 | disposition home or self-care (01) | LOC: WCC 10:43 | DX: L97.122 Non-pressure chronic ulcer of left thigh with fat layer exposed (principal); L89.154 Pressure ulcer of sacral region, stage 4; L89.313 Pressure ulcer of right buttock, stage 3; L03.116 Cellulitis of left lower limb; E11.9 Type 2 diabetes mellitus without complications; G82.20 Paraplegia, unspecified; Z87.891 Personal history of nicotine dependence; Z88.8 Allergy status to other drugs, medicaments and biological substances; Z88.6 Allergy status to analgesic agent | CPT/HCPCS: 11042; 11043 ==

== ENCOUNTER 2019-02-12 10:30 | Outpatient (RCR) | payer MEDICARE, OTHER | END 2019-03-10 | disposition home or self-care (01) | LOC: WCC 10:30 | DX: L97.122 Non-pressure chronic ulcer of left thigh with fat layer exposed (principal); L89.154 Pressure ulcer of sacral region, stage 4; L89.313 Pressure ulcer of right buttock, stage 3; L03.116 Cellulitis of left lower limb; E11.9 Type 2 diabetes mellitus without complications; G82.20 Paraplegia, unspecified | CPT/HCPCS: 11042; 11043 ==

== ENCOUNTER 2019-04-16 11:15 | Outpatient (RCR) | payer MEDICARE, OTHER | END 2019-05-11 | disposition home or self-care (01) | LOC: WCC 11:15 | DX: L97.122 Non-pressure chronic ulcer of left thigh with fat layer exposed (principal); L89.154 Pressure ulcer of sacral region, stage 4; L89.313 Pressure ulcer of right buttock, stage 3; L03.116 Cellulitis of left lower limb; E11.9 Type 2 diabetes mellitus without complications; Z88.6 Allergy status to analgesic agent; Z88.8 Allergy status to other drugs, medicaments and biological substances | CPT/HCPCS: 11042; 11043; 11046 ==

== ENCOUNTER 2019-05-14 09:07 | Outpatient (RCR) | payer MEDICARE, OTHER | END 2019-06-09 | disposition home or self-care (01) | LOC: WCC 09:07 | DX: L97.122 Non-pressure chronic ulcer of left thigh with fat layer exposed (principal); L89.154 Pressure ulcer of sacral region, stage 4; L89.313 Pressure ulcer of right buttock, stage 3; L03.116 Cellulitis of left lower limb; L97.125 Non-pressure chronic ulcer of left thigh with muscle involvement without evidence of necrosis; G83.9 Paralytic syndrome, unspecified; E11.9 Type 2 diabetes mellitus without complications | CPT/HCPCS: 11042; 11043; 11046; 97605; 99282 ==

== ENCOUNTER 2019-05-28 10:18 | Emergency (ER) | payer MEDICARE, OTHER ==
[~2019-05-28] VITALS: Ht 165.1 cm; Wt 99.8 kg
--- NOTE | 2019-05-28 10:33 | NUR ---
ED Nurse Note: Pt arrived to ed on her electronical wheel chair. pt reports that her colostomy bag is full and needs to change it. pt states that she wishes to do it herself. colostomy bag and clip given. pt shows no NAD.
--- NOTE | 2019-05-28 10:34 | NUR ---
ED Nurse Note: colostomy bag successfully changed. pt tolerated well. pt has no pain. no distress. pt waiting on dc papers.
[2019-05-28 10:40] VITALS: BP 140/76
--- NOTE | 2019-05-28 10:41 | NUR ---
ER DISCHARGE NOTE: Patient is cleared to be discharged per ERMD, pt is aox4, on room air, with stable vital signs. pt was given dc instructions, pt was able to verbalize understanding, pt id band removed. pt is able to ambulate with steady gait. pt took all belongings.
[2019-05-28 10:42] VITALS: BP 137/74
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
== END 2019-05-28 10:43 | disposition home or self-care (01) ==
LOC: EMR 10:40
DX: Z46.89 Encounter for fitting and adjustment of other specified devices (principal); Z99.3 Dependence on wheelchair; Z88.6 Allergy status to analgesic agent; Z91.040 Latex allergy status; Z88.8 Allergy status to other drugs, medicaments and biological substances; G82.20 Paraplegia, unspecified
CPT/HCPCS: 99282

== ENCOUNTER 2019-06-11 09:39 | Outpatient (RCR) | payer MEDICARE, OTHER | END 2019-07-10 | disposition home or self-care (01) | LOC: WCC 09:39 | DX: L89.154 Pressure ulcer of sacral region, stage 4 (principal); L89.313 Pressure ulcer of right buttock, stage 3; L03.116 Cellulitis of left lower limb; L97.125 Non-pressure chronic ulcer of left thigh with muscle involvement without evidence of necrosis; E11.9 Type 2 diabetes mellitus without complications; G83.9 Paralytic syndrome, unspecified; Z87.891 Personal history of nicotine dependence; Z88.8 Allergy status to other drugs, medicaments and biological substances; Z88.6 Allergy status to analgesic agent | CPT/HCPCS: 11042; 11043; 11046; 97605 ==

== ENCOUNTER 2019-07-20 12:10 | Outpatient (RCR) | payer MEDICARE, OTHER | END 2019-08-09 | disposition home or self-care (01) | LOC: WCC 12:10 | DX: L89.154 Pressure ulcer of sacral region, stage 4 (principal); L89.313 Pressure ulcer of right buttock, stage 3; L03.116 Cellulitis of left lower limb; Z87.891 Personal history of nicotine dependence; Z88.6 Allergy status to analgesic agent; Z88.8 Allergy status to other drugs, medicaments and biological substances; L02.416 Cutaneous abscess of left lower limb; L89.893 Pressure ulcer of other site, stage 3 | CPT/HCPCS: 11042; 11043; 11046; 87070; 87181; 87205 ==

== ENCOUNTER 2019-07-27 15:50 | Inpatient (IN) | payer MEDICARE, OTHER ==
[~2019-07-27] VITALS: Ht 165.1 cm; Wt 92.7 kg
--- NOTE | 2019-07-28 12:30 | NUR ---
NURSE NOTES: patient admitted directly from Home via electric w/c under DR. Terry care. A&Ox4. verbally responsive. no respiratory distress noted. pain on lower back 01/18. refused belongings check, skin assessment at this time d/t pain. left knee absess dressing intact. changed by Dr. lin outside. refused nurse to assess. colostomy bag on left lower quadrant. brown liquied stool noted. notifed dr. terry for admission orderes.
[2019-07-28] MEDS ORDERED: Gadavist 7.5mMol/7.5ml vial IV PRN (13:30)
--- NOTE | 2019-07-28 13:30 | NUR ---
NURSE NOTES: received admission orders from Dr. Glover. order noted and carried out.
[2019-07-28 16:00] VITALS: BP 110/73
--- NOTE | 2019-07-28 16:21 | NUR ---
NURSE NOTES: patient developed fever 100.00 now. HR 139. patient said that her usual hr is 110-115. no c/o palpitation. alert. verbally responsive. patient also wants IV benadryl not PO. notified dr. terry and is aware.
[2019-07-28] MEDS ORDERED: Tigecycline 100 MG in NS 110 ML IVPB ONE (16:30)
--- NOTE | 2019-07-28 16:54 | NUR ---
NURSE NOTES: received order from Dr. Glover. dc previous bebadryl po prn. start benadryl 50mg IVP q4hrs prn for itching. order noted and carried out.
[2019-07-28 17:31] LABS: HEMATOCRIT 27.7 % (37.0-47.0); HEMOGLOBIN 8.6 G/DL (12.0-16.0); MEAN CORPUSCULAR VOLUME 84 FL (80-99); PLATELET COUNT 324 K/UL (150-450); RED BLOOD COUNT 3.31 M/UL (4.20-5.40); RED CELL DISTRIBUTION WIDTH 15.5 % (11.6-14.8); WHITE BLOOD COUNT 17.1 K/UL (4.8-10.8)
--- NOTE | 2019-07-28 18:00 | NUR ---
NURSE NOTES: checked the belongings with patient and obtained sign. refused wound assessment and taking picture at this time.
[2019-07-28 18:03] LABS: ANION GAP 15 mmol/L (5-15); BLOOD UREA NITROGEN 26 mg/dL (7-18); CALCIUM 10.2 MG/DL (8.5-10.1); CARBON DIOXIDE 21 MMOL/L (21-32); CHLORIDE 92 MMOL/L (98-107); CREATININE 1.5 MG/DL (0.55-1.30); POTASSIUM 3.9 MMOL/L (3.5-5.1); SODIUM 128 MMOL/L (136-145)
--- NOTE | 2019-07-28 18:37 | NUR ---
NURSE NOTES: sodium 128. refusing meals. notified Dr. Glover and received order BMP tomorrow morning.
--- NOTE | 2019-07-28 19:35 | NUR ---
HAND-OFF: Report given to ANISA Church.
[2019-07-28 20:00] VITALS: BP 96/51
--- NOTE | 2019-07-28 20:00 | NUR ---
NURSE NOTES: Patient received in bed,asleep, drowsy but arousable. AOx4, IV is intact and patent on KVO. No complaints at this time. Colostomy bag intact. Noted left thigh/knee dressing, and per patient has sacral wound but refused to be assessed at this time. Will re-attempt at a later time.
[2019-07-28] MEDS: DiphenhydrAMINE 50mg/ml Inj IVP PRN (20:51)
[2019-07-28] MEDS: Heparin 5000 units/ml inj SUBQ SCH (20:58)
[2019-07-29] VITALS: BP 93/59
[2019-07-29 04:00] VITALS: BP 107/59
[2019-07-29] MEDS: DiphenhydrAMINE 50mg/ml Inj IVP PRN ×3 (04:47→18:17)
--- NOTE | 2019-07-29 05:40 | NUR ---
NURSE NOTES: Patient was changed. Pictures were taken of wounds on LLE and sacrum/buttocks. Tolerated well. Patient refused to have any cream or ointment on her wounds. Wounds were cleansed with saline and covered with gauze and optifoam.
--- NOTE | 2019-07-29 07:18 | NUR ---
HAND-OFF: Report given to Ely LANGE.
--- NOTE | 2019-07-29 07:25 | NUR ---
NURSE NOTES: Received report from ANISA Church. Patient A&Ox4. On room air, no signs of distress or labored breathing. IV intact, patent, and running TKO. Colostomy with drainage bag in LLQ, stoma bright red. Left knee dressing intact and stained. Bed in lowest position with call light in reach. Will continue with plan of care.
[2019-07-29 08:00] VITALS: BP 97/59
[2019-07-29 09:23] LABS: ANION GAP 13 mmol/L (5-15); BLOOD UREA NITROGEN 45 mg/dL (7-18); CALCIUM 9.6 MG/DL (8.5-10.1); CARBON DIOXIDE 22 MMOL/L (21-32); CHLORIDE 94 MMOL/L (98-107); CREATININE 2.2 MG/DL (0.55-1.30); POTASSIUM 4.5 MMOL/L (3.5-5.1); SODIUM 129 MMOL/L (136-145)
[2019-07-29] MEDS: Heparin 5000 units/ml inj SUBQ SCH ×2 (10:10→23:10)
[2019-07-29] MEDS: Tigecycline 50 MG in NS 110 ML IVPB SCH ×2 (11:16→23:10)
--- NOTE | 2019-07-29 11:44 | NUR ---
NURSE NOTES: Notified Dr. Reyes of patient's blood culture results: gram pos cocci clusters in 1 bottle. Charge nurse aware.
[2019-07-29 12:07] VITALS: BP 101/56
[2019-07-29 16:07] VITALS: BP 112/63
[2019-07-29] MEDS: NovoLOG Insulin Flexpen SUBQ SCH ×2 (16:30→21:00)
--- NOTE | 2019-07-29 17:50 | NUR ---
NURSE NOTES: Patient refused insulin. Patient states her blood sugar is high when she is sick. RN explained risk and benefits but patient continued to refuse.
--- NOTE | 2019-07-29 18:02 | NUR ---
NURSE NOTES: Left message for Dr. Juárez per pharmacy request concerning Tygacil frequency. Pharmacy only verifies Q24 Tygacil without ID MD order but primary MD ordered for q12. Awaiting call back. Charge nurse aware. Addendum: 07/29/19 at 1810 by Ely Issa RN NURSE NOTES: Relayed this message to pharmacy. Addendum: 07/30/19 at 0015 by SUJATA LAGUNAS RN RN NURSE NOTES: Received order from Dr. Juárez
--- NOTE | 2019-07-29 18:24 | NUR ---
NURSE NOTES: Notified Dr. Glover of patient's 129 sodium. Awaiting response.
--- NOTE | 2019-07-29 19:35 | NUR ---
NURSE NOTES: Received report from ANISA Graves. Patient A&Ox4,on room air, no labored breathing. IV intact and patent. Colostomy with drainage bag in LLQ. Left knee dressing intact. Bed locked, lowest position, alarm on, side rails up, call light within reach. Will continue with plan of care.
--- NOTE | 2019-07-29 19:35 | NUR ---
HAND-OFF: Report given to ANISA Lemus. Rounds done.
[2019-07-29 20:00] VITALS: BP 100/54
[2019-07-30] VITALS: BP 103/54
--- NOTE | 2019-07-30 02:15 | Consultation ---
DATE OF CONSULTATION: 07/29/2019 INFECTIOUS DISEASES CONSULTATION This consult is for coverage of Dr. Reyes. CONSULTING PHYSICIAN: Vaughn Juárez MD. PRIMARY ATTENDING PHYSICIAN: Thanh Glover MD. REASON FOR CONSULT: Bacteremia, left knee wound infection. HISTORY OF PRESENT ILLNESS: A 44-year-old female, admitted yesterday after they visited to the office of the primary doctor. The patient has history of chronic wounds and did go to Wound Clinic at the hospital. The patient has developed a new wound in the left knee area about 2 weeks ago. The culture from the wound grew MRSA. The patient also had a positive blood culture today and at the time of admission, had tachycardia and leukocytosis. PAST MEDICAL HISTORY: Significant for paraplegia for 30 years, history of cholecystectomy, obesity, chronic pain, anemia. ALLERGIES: The patient has multiple drug allergies including ceftriaxone, cephalexin, codeine, iron, latex, Plastics, Zosyn, polymyxin, tazobactam, vancomycin, and asparaginase. SOCIAL HISTORY: Lives at home, wheelchair-bound. Smokes, he is single. Denies drug abuse. Denies alcohol abuse. REVIEW OF SYSTEMS: Pain. No fever. No chills. No coughing. No shortness of breath. PHYSICAL EXAMINATION: VITAL SIGNS: Temperature 98.6, T-max is 100 at the time of admission, pulse 88, blood pressure is 101/56. GENERAL APPEARANCE: Seems obese. HEAD AND NECK: [place] conjunctiva. HEART: Normal rate. LUNGS: Clear. ABDOMEN: Soft, nontender. EXTREMITIES: No edema. SKIN: Ulceration in the left Knee have a healing ulcer in the other places including sacral decubitus ulcer that almost completely healed. NEUROLOGIC: Awake, alert, oriented x3. LABORATORY AND DIAGNOSTIC DATA: WBC 17.1, hemoglobin is 8.6, hematocrit 27.7, platelets 324. ESR elevated at 85. Sodium is 129, potassium 4.9, chloride 94, bicarbonate 22, BUN 45, creatinine 2.2, glucose at the time of admission 408, currently 329. Blood culture, gram-positive cocci. IMPRESSION: Sepsis with tachycardia, leukocytosis, and low-grade fever. Has bacteremia with gram-positive cocci, have infected left knee wound, has acute renal failure, diabetes mellitus with hyperglycemia, paraplegia, anemia and multiple antibiotic allergy. RECOMMENDATION: 1. Continue Tygacil. We will follow up the cultures. We will fo;;ow left knee MRI 2. Treatment for diabetes and good control of blood sugar. At the end of my exam, I thank, Dr. Glover, for involving me in the care of this patient. Vaughn Juárez M.D. DR: MANDA JOB#: [id number] CC: MADI
[2019-07-30 04:00] VITALS: BP 106/59
[2019-07-30] MEDS: DiphenhydrAMINE 50mg/ml Inj IVP PRN ×4 (05:11→22:30)
--- NOTE | 2019-07-30 06:00 | NUR ---
NURSE NOTES: Pt refused blood sugar check and insulin. Refused to change dressing on the L knee. Education given but still refused x 3.
[2019-07-30] MEDS: NovoLOG Insulin Flexpen SUBQ SCH ×4 (06:30→20:40)
--- NOTE | 2019-07-30 07:00 | NUR ---
NURSE NOTES: pt asleep easily arousable , pt drowsy. call light within reach. verbal, no distress. pt refused to have dressing changed
--- NOTE | 2019-07-30 07:32 | NUR ---
HAND-OFF: Report given to ANISA Lemon.
[2019-07-30 08:00] VITALS: BP 113/63
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
[2019-07-30] MEDS: Heparin 5000 units/ml inj SUBQ SCH ×2 (08:50→20:39)
--- NOTE | 2019-07-30 08:50 | General Progress Note ---
Assessment/Plan Problem List: (1) Dehydration ICD Codes: E86.0 - Dehydration SNOMED: 35339958 (2) Opiate dependence ICD Codes: F11.20 - Opioid dependence, uncomplicated SNOMED: 53449979 (3) Colostomy care ICD Codes: Z43.3 - Encounter for attention to colostomy SNOMED: 246715315 (4) Pain ICD Codes: R52 - Pain, unspecified SNOMED: 64878058 (5) Sepsis ICD Codes: A41.9 - Sepsis SNOMED: 59655893 (6) Infection of left knee ICD Codes: M00.9 - Pyogenic arthritis, unspecified SNOMED: 31182524, 987408819 (7) right hip wound infecion/ulcer/osteo (8) Paraplegia ICD Codes: G82.20 - Paraplegia SNOMED: 75360672 (9) Cellulitis ICD Codes: L03.90 - Cellulitis, unspecified SNOMED: 065978872 Status: stable Assessment/Plan: cont current rx iv abx follow up cultures adjust abx based on cultures mri left knee. pain rx colostomy care monitor Na level turn q2 wound care eval Subjective Constitutional: Reports: malaise, weakness HEENT: Reports: no symptoms Cardiovascular: Reports: no symptoms Respiratory: Reports: no symptoms Gastrointestinal/Abdominal: Reports: no symptoms, other - COLOSTOMY 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: Reports: pre-existing deficit Endocrine: Reports: no symptoms Hematologic/Lymphatic: Reports: anemia Allergies: Coded Allergies: CEFTRIAXONE (Verified Allergy, Intermediate, SOB, HR-140bpm, face swollen , pt became red, 10/24/15) CODEINE (Verified Allergy, Intermediate, SWELLING, 01/03/11) LATEX (Verified Allergy, Intermediate, SWELLING, 01/03/11) PIPERACILLIN (Verified Allergy, Intermediate, Itching, 08/29/15) 08/29/15 tolerates Ceftaroline TAZOBACTAM (Verified Allergy, Intermediate, Itching, 01/29/15) POLYMYXIN B (Verified Allergy, Mild, Rash, 04/08/16) Suspected allergy reported by VANCOMYCIN (Verified Allergy, Mild, 07/15/14) ASPARAGINASE (Verified Allergy, Unknown, 01/28/14) CEFUROXIME (Unverified Allergy, Unknown, 04/19/16) IRON (Verified Allergy, Unknown, 01/28/14) LATEX, NATURAL RUBBER (Unverified Allergy, Unknown, 06/18/16) All Systems: reviewed and negative except above Subjective no new complaints. stable. pain controlled. cultures with s.aureus. no fever or chills. no sob. MRI of left knee pending. Objective Last 24 Hour Vital Signs Date Time Temp Pulse Resp B/P (MAP) Pulse Ox O2 Delivery O2 Flow Rate FiO2 07/30/19 04:00 98.3 94 18 106/59 (75) 96 07/30/19 00:00 98.1 93 18 103/54 (70) 96 07/29/19 21:00 Room Air 07/29/19 20:00 98.1 98 18 100/54 (69) 94 07/29/19 16:07 98.0 87 17 112/63 (79) 98 07/29/19 12:07 98.6 88 18 101/56 (71) 97 07/29/19 09:00 Room Air Intake and Output 07/29/19 07/30/19 19:00 07:00 Intake Total 1600 ml 240 ml Output Total 150 ml Balance 1600 ml 90 ml Other 1600 ml 240 ml Output Urine Total 150 ml # Voids 2 # Bowel Movements 1 Height (Feet): 5 Height (Inches): 5.00 Weight (Pounds): 204 General Appearance: WD/WN, alert, overweight, obese EENT: normal ENT inspection Neck: non-tender, normal alignment, supple, normal inspection Cardiovascular: normal rate, regular rhythm Respiratory/Chest: chest wall non-tender, lungs clear, normal breath sounds, no respiratory distress, no accessory muscle use Abdomen: normal bowel sounds, non tender, soft, no organomegaly, no mass Edema: no edema noted Arm (L), no edema noted Arm (R), no edema noted Leg (L), no edema noted Leg (R), no edema noted Pedal (L), no edema noted Pedal (R), no edema noted Generalized Skin: normal pigmentation Objective left knee swelling Jacques Chanel MD Jul 30, 2019 08:50
[2019-07-30] MEDS ORDERED: Tigecycline 50 MG in NS 110 ML IVPB SCH (09:00)
--- NOTE | 2019-07-30 09:00 | NUR ---
NURSE NOTES: pt asleep easily arousable , pt drowsy. call light within reach. verbal, no distress. pt refused to have dressing changed
--- NOTE | 2019-07-30 11:11 | Infectious Diseases Prog Note ---
Assessment/Plan Assessment/Plan antibiotics : tygacil A 1. staph aureus sepsis 2. left knee wound infection 3. paraplegia 4. leucocytosis P 1. d/c tygacil 2. start linezolid 3. [address] left knee 5. will follow up cultures Subjective ROS Limited/Unobtainable: Yes Allergies: Coded Allergies: CEFTRIAXONE (Verified Allergy, Intermediate, SOB, HR-140bpm, face swollen , pt became red, 10/24/15) CODEINE (Verified Allergy, Intermediate, SWELLING, 01/03/11) LATEX (Verified Allergy, Intermediate, SWELLING, 01/03/11) PIPERACILLIN (Verified Allergy, Intermediate, Itching, 08/29/15) 08/29/15 tolerates Ceftaroline TAZOBACTAM (Verified Allergy, Intermediate, Itching, 01/29/15) POLYMYXIN B (Verified Allergy, Mild, Rash, 04/08/16) Suspected allergy reported by VANCOMYCIN (Verified Allergy, Mild, 07/15/14) ASPARAGINASE (Verified Allergy, Unknown, 01/28/14) CEFUROXIME (Unverified Allergy, Unknown, 04/19/16) IRON (Verified Allergy, Unknown, 01/28/14) LATEX, NATURAL RUBBER (Unverified Allergy, Unknown, 06/18/16) Objective Vital Signs Last 24 Hour Vital Signs Date Time Temp Pulse Resp B/P (MAP) Pulse Ox O2 Delivery O2 Flow Rate FiO2 07/30/19 09:28 98.3 07/30/19 09:00 Room Air 07/30/19 08:00 98.3 92 18 113/63 (80) 96 07/30/19 04:00 98.3 94 18 106/59 (75) 96 07/30/19 00:00 98.1 93 18 103/54 (70) 96 07/29/19 21:00 Room Air 07/29/19 20:00 98.1 98 18 100/54 (69) 94 07/29/19 16:07 98.0 87 17 112/63 (79) 98 07/29/19 12:07 98.6 88 18 101/56 (71) 97 Height (Feet): 5 Height (Inches): 5.00 Weight (Pounds): 204 Microbiology Date/Time Source Procedure Growth Status 07/28/19 17:15 Blood Blood Culture - Preliminary Staphylococcus Aureus Resulted 07/28/19 17:00 Blood Blood Culture - Preliminary Staphylococcus Aureus Resulted Current Medications Medications (Trade) Dose Ordered Sig/Pineda Route PRN Reason Start Time Stop Time Status Last Admin Dose Admin Acetaminophen (Tylenol) 650 mg Q4H PRN ORAL Mild Pain/fever 07/28/19 13:30 08/27/19 13:29 Al Hydroxide/Mg Hydroxide (Mylanta) 30 ml Q4HR PRN ORAL To Patient Comfort 07/28/19 13:30 08/27/19 13:29 Dextrose (Dextrose 50%) 25 ml Q30M PRN IV Hypoglycemia 07/29/19 15:30 10/27/19 15:29 Dextrose (Dextrose 50%) 50 ml Q30M PRN IV Hypoglycemia 07/29/19 15:30 10/27/19 15:29 Diphenhydramine HCl (Benadryl) 50 mg Q4HR PRN IVP Itching 07/28/19 17:00 08/27/19 16:59 07/30/19 08:57 Gadobutrol (Gadavist) 7.5 mmol NOW PRN IV Radiology Procedure 07/28/19 13:30 08/01/19 13:26 Heparin Sodium (Porcine) (Heparin 5000 units/ml) 5,000 units EVERY 12 HOURS SUBQ 07/28/19 21:00 09/11/19 20:59 07/29/19 23:10 Hydromorphone HCl (Dilaudid) 1 mg Q3HR PRN IVP Moderate Pain (Pain Scale 4-6) 07/28/19 13:30 08/04/19 13:29 Hydromorphone HCl (Dilaudid) 2 mg Q3H PRN IVP Severe Pain (Pain Scale 7-10) 07/28/19 13:30 08/04/19 13:29 07/30/19 08:58 Insulin Aspart (NovoLOG) BEFORE MEALS AND HS SUBQ 07/29/19 16:30 10/27/19 16:29 Pantoprazole (Protonix) 40 mg DAILY ORAL 07/29/19 09:00 08/28/19 08:59 07/30/19 08:50 Tigecycline 50 mg/ Sodium Chloride 110 ml @ 220 mls/hr EVERY 12 HOURS IVPB 07/30/19 09:00 08/06/19 08:59 07/30/19 08:50 Deng Reyes MD Jul 30, 2019 11:11
--- NOTE | 2019-07-30 11:29 | History and Physical Report ---
DATE OF ADMISSION: 07/28/2019 CHIEF COMPLAINT: Left knee abscess and cellulitis. HISTORY OF PRESENT ILLNESS: The patient is an unfortunate 44-year-old female. She has a history of paraplegia and history of chronic pressure wounds. She presented from home with complaints of draining and erythema, fevers, and chills, from a left knee wound. According to the patient, several days prior to admission, she developed an induration and swelling along the left knee, it began to drain purulent pus and she is now admitted for further evaluation and care. PAST MEDICAL HISTORY: Significant for history of multiple sacral pressure wounds, history of paraplegia, history of colostomy. CURRENT MEDICATIONS: Reconciled and reviewed. ALLERGIES: Include Rocephin, cefuroxime, codeine, iron, latex, asparaginase, rubber. FAMILY HISTORY: Noncontributory. SOCIAL HISTORY: Negative for alcohol or drugs. REVIEW OF SYSTEMS: GENERAL: Positive fevers and chills, but no night sweats. HEENT: No headaches or visual changes. CARDIOPULMONARY: No chest pain or shortness of breath. GASTROINTESTINAL: No nausea or vomiting. Positive history of colostomy. GENITOURINARY: No urgency or frequency. MUSCULOSKELETAL: No joint pain or swelling. Positive induration and swelling along the left knee. NEUROLOGIC: No history of seizures. Positive history of paraplegia. PHYSICAL EXAMINATION: VITAL SIGNS: Temperature 98 degrees, pulse 88, respirations 18, and blood pressure 105/56. GENERAL: The patient is a well-developed, no apparent distress. HEART: Regular rate and rhythm. No murmurs, rubs, or gallops. LUNGS: Clear. ABDOMEN: Soft, nontender, nondistended. Colostomy has brown stool. EXTREMITIES: Without clubbing or cyanosis. There is a small wound over the left knee currently without any drainage. There is a large sacral wound noted as well as a wound on the back of her left thigh. NEUROLOGIC: The patient is paraplegic. LABORATORY DATA: White count 17, hemoglobin 8.6, hematocrit 27, platelet count of 324. Sodium 128, potassium 3.9, BUN 26, creatinine 1.5. C-reactive protein . ASSESSMENT: This is an unfortunate 44-year-old female with history of paraplegia, chronic sacral wounds, colostomy, asthma, hypertension, admitted with a left lower extremity abscess. PLAN: IV antibiotics. Follow up cultures. Consider imaging of the left knee. Consider Orthopedic evaluation. Colostomy care. Pain medications as needed. Monitor sodium level. Pulmonary and ID consultation has been obtained. Jacques Chanel M.D. DR: SHINE JOB#: [id number] CC:
[2019-07-30] MEDS ORDERED: Omnipaque-300 100ml vial INJ SCH (11:30)
[2019-07-30 12:00] VITALS: BP 119/69
--- NOTE | 2019-07-30 12:00 | NUR ---
NURSE NOTES: pt asleep easily arousable , pt drowsy. call light within reach. verbal, no distress. pt refused to have dressing changed
--- NOTE | 2019-07-30 12:38 | NUR ---
*-* CASE MANAGEMENT NOTES *-* PATIENT IS ON SERVICE WITH: [facility] P: Work
--- NOTE | 2019-07-30 13:07 | Consultation ---
History of Present Illness General Date patient seen: Jul 30, 2019 Time patient seen: 11:00 Reason for Consultation: Multiple ulcers. Present Illness HPI Patient known to me from wound care center where she has been treated for sacral , right ischial, LLE ulcer and most recently distal left anterior distal thigh ulcer. She was admitted to [facility] with bactermia and had fever, tachycardia. She had blood culture + for staph. She had MRSA in her new knee ulcer that was being treated with oral antibiotics. She has been feeling lethargic with nausea in the last few days. Allergies: Coded Allergies: CEFTRIAXONE (Verified Allergy, Intermediate, SOB, HR-140bpm, face swollen , pt became red, 10/24/15) CODEINE (Verified Allergy, Intermediate, SWELLING, 01/03/11) LATEX (Verified Allergy, Intermediate, SWELLING, 01/03/11) PIPERACILLIN (Verified Allergy, Intermediate, Itching, 08/29/15) 08/29/15 tolerates Ceftaroline TAZOBACTAM (Verified Allergy, Intermediate, Itching, 01/29/15) POLYMYXIN B (Verified Allergy, Mild, Rash, 04/08/16) Suspected allergy reported by VANCOMYCIN (Verified Allergy, Mild, 07/15/14) ASPARAGINASE (Verified Allergy, Unknown, 01/28/14) CEFUROXIME (Unverified Allergy, Unknown, 04/19/16) IRON (Verified Allergy, Unknown, 01/28/14) LATEX, NATURAL RUBBER (Unverified Allergy, Unknown, 06/18/16) Medication History Scheduled Cubicin (Cubicin), 1 MG IV DAILY Diphenhydramine HCl (Benadryl), 25 MG PO TID Epinephrine (Epipen 2-Vinicio), 0.3 MG IM ONCE Escitalopram Oxalate* (Lexapro*), 10 MG ORAL DAILY, (Reported) Famotidine* (Pepcid 20mg tablet*), 20 MG ORAL TWICE A DAY Methocarbamol* (Robaxin-750*), 750 MG PO TID Methocarbamol* (Robaxin-750*), 750 MG PO TID Pantoprazole* (Protonix*), 40 MG ORAL DAILY, (Reported) Prednisone* (Prednisone*), 50 MG ORAL DAILY Scheduled PRN Acetaminophen (Acetaminophen), 650 MG ORAL Q4HR PRN for Fever/Headache/Mild Pain , (Reported) Al Hydroxide/mg Hydroxide (Mag-Al Plus Suspension), 30 ML ORAL Q4HR PRN for dyspepsia, (Reported) Albuterol Sulfate* (Albuterol Sulfate Mdi*), 2 PUFF INH Q4H PRN for Constipation , (Reported) Magnesium Hydroxide* (Milk Of Magnesia*), 30 ML ORAL HS PRN for Constipation, ( Reported) Zolpidem Tartrate* (Ambien*), 5 MG ORAL BEDTIME PRN for insomnia, (Reported) Patient History Limited by: medical condition History Provided By: Patient, Medical Record Healthcare decision maker N Resuscitation status Full Code Advanced Directive on File Past Medical/Surgical History Past Medical/Surgical History: (1) Acute renal failure (2) Osteomyelitis (3) Anemia Review of Systems Constitutional: Reports: malaise, weakness Eye: Reports: no symptoms ENT: Reports: no symptoms Respiratory: Reports: no symptoms Cardiovascular: Reports: no symptoms Gastrointestinal: Reports: nausea Genitourinary: Reports: incontinence Skin: Reports: see HPI Psychiatric: Reports: no symptoms Hematologic/Lymphatic: Reports: anemia Physical Exam General Appearance: lethargic Lines, tubes and drains: peripheral Skin Exam: other - LLE ulcer with granular base. Left knee ulcer with no purulent drainage. Sacral ulcer with some fibrotic debris at the base. Right ischial ulcer with granualr base. No erythema or warmth in the periskin of any of the ulcers. Last 24 Hour Vital Signs Date Time Temp Pulse Resp B/P (MAP) Pulse Ox O2 Delivery O2 Flow Rate FiO2 07/30/19 09:28 98.3 07/30/19 09:00 Room Air 07/30/19 08:00 98.3 92 18 113/63 (80) 96 07/30/19 04:00 98.3 94 18 106/59 (75) 96 07/30/19 00:00 98.1 93 18 103/54 (70) 96 07/29/19 21:00 Room Air 07/29/19 20:00 98.1 98 18 100/54 (69) 94 07/29/19 16:07 98.0 87 17 112/63 (79) 98 Intake and Output 07/29/19 07/30/19 19:00 07:00 Intake Total 1600 ml 240 ml Output Total 150 ml Balance 1600 ml 90 ml Other 1600 ml 240 ml Output Urine Total 150 ml # Voids 2 # Bowel Movements 1 Height (Feet): 5 Height (Inches): 5.00 Weight (Pounds): 204 Medications Current Medications Medications (Trade) Dose Ordered Sig/Pineda Route PRN Reason Start Time Stop Time Status Last Admin Dose Admin Acetaminophen (Tylenol) 650 mg Q4H PRN ORAL Mild Pain/fever 07/28/19 13:30 08/27/19 13:29 Al Hydroxide/Mg Hydroxide (Mylanta) 30 ml Q4HR PRN ORAL To Patient Comfort 07/28/19 13:30 08/27/19 13:29 Dextrose (Dextrose 50%) 25 ml Q30M PRN IV Hypoglycemia 07/29/19 15:30 10/27/19 15:29 Dextrose (Dextrose 50%) 50 ml Q30M PRN IV Hypoglycemia 07/29/19 15:30 10/27/19 15:29 Diphenhydramine HCl (Benadryl) 50 mg Q4HR PRN IVP Itching 07/28/19 17:00 08/27/19 16:59 07/30/19 08:57 Gadobutrol (Gadavist) 7.5 mmol NOW PRN IV Radiology Procedure 07/28/19 13:30 08/01/19 13:26 Heparin Sodium (Porcine) (Heparin 5000 units/ml) 5,000 units EVERY 12 HOURS SUBQ 07/28/19 21:00 09/11/19 20:59 07/29/19 23:10 Hydromorphone HCl (Dilaudid) 1 mg Q3HR PRN IVP Moderate Pain (Pain Scale 4-6) 07/28/19 13:30 08/04/19 13:29 Hydromorphone HCl (Dilaudid) 2 mg Q3H PRN IVP Severe Pain (Pain Scale 7-10) 07/28/19 13:30 08/04/19 13:29 07/30/19 12:27 Insulin Aspart (NovoLOG) BEFORE MEALS AND HS SUBQ 07/29/19 16:30 10/27/19 16:29 Iohexol (OMNIPAQUE-300 100ml) 100 ml ONCE INJ 07/30/19 11:30 07/30/19 13:30 Linezolid 300 ml @ 300 mls/hr Q12HR IVPB 07/30/19 13:00 08/06/19 12:59 Pantoprazole (Protonix) 40 mg DAILY ORAL 07/29/19 09:00 08/28/19 08:59 07/30/19 08:50 Assessment/Plan Status: stable Assessment/Plan: Patient with bacteremia in the face of multiple wounds. Her wounds do not appear to be the source of her WBC of 17k. Agree with the scan of her left knee to look for deeper infection source. Continue IV abx. Wound orders placed. No surgical intervention needed at this time. Keegan Cristobal MD Jul 30, 2019 13:07
--- NOTE | 2019-07-30 14:00 | NUR ---
NURSE NOTES: pt asleep easily arousable , pt drowsy. call light within reach. verbal, no distress. pt refused to have dressing changed
--- NOTE | 2019-07-30 15:05 | NUR ---
CASE MANAGEMENT: REVIEW 44 YEAR OLD FEMALE PRESENTED TO ED FROM HOME HX PARAPLEGIA CC: DRAINING AND ERYTHEMA LEFT KNEE . FEVER . CHILLS SI: STAPH AUREUS SEPSIS . LEFT KNEE WOUND INFECTION T 100.0 HR 139 RR 28 BP 93/59 SAT 96% ROOM AIR WBC 17.1 H/H 8.6/27.7 NA 128 BUN 26 CR 1.5 GLUCOSE 408 IS: TYGACIL IV X1 BENADRYL PO X1 WOUND CARE CONSULT PATIENT ADMITTED TO MED/SURG UNIT 07/28/2019 DCP: PATIENT IS FROM HOME
--- NOTE | 2019-07-30 15:16 | Diagnostic Imaging Report ---
Indication: Staph aureus sepsis, left knee wound infection, leukocytosis Technique: No IV contrast, reason not stated Spiral acquisitions obtained through the left knee Multiplanar reconstructions were generated. Total dose length product 124 mGycm. CTDIvol(s) 3 mGy. Radiation dose was minimized using automated exposure control Comparison: none Findings: There is a soft tissue defect in the anteromedial knee region just cephalad to the joint space. There is dense material within this defect. There are a few gas bubbles within this tissue space immediately medial to the proximal tibia. Soft tissue attenuation material is seen within the suprapatellar bursa, and surrounding the knee joint, distal femur, proximal tibia, and the patella. There is marked irregularity of the joint surfaces of the femur, tibia, and patella. There is marked chronic appearing deformity of these bones. There is marked lateral subluxation of the patella. No acute fractures. The bones appear osteoporotic. There is ankylosis of the proximal fibula and proximal tibia. There is a chronic appearing soft tissue defect of the lateral thigh above the knee joint. This probably reflects chronic scarring. There is edema of the subcutaneous fat, predominantly of the proximal leg but also of the distal thigh. Impression: Soft tissue attenuation material seen occupying the expected synovial space. This most likely represents chronic synovial proliferation/scar tissue rather than fluid, related to chronic immobility and denervation. Soft tissue defect in the anteromedial soft tissues, likely representing an ulcer. There is unusual finding of dense material within this. This may represent packing material or chronic heterotopic ossification Other gas bubbles lateral to the tibial within the suspected synovial proliferation tissue. This may represent gas tracking inward from the above-mentioned ulcer or could represent active infection with a gas forming organism Extensive irregularity of the joint surfaces. This appears to most likely all be chronic related to patient's immobility and innervation. However, the possibility of osteomyelitis and/or septic arthritis cannot be excluded with any confidence, particularly in view of the inherent insensitivity of CT for osteomyelitis. Consider MRI or nuclear medicine bone scan for more sensitive and specific characterization Chronic lateral subluxation of the patella Osteoporotic change. Soft tissue edema. Nonspecific, could indicate cellulitis or edema of hemodynamic origin Findings discussed by phone with Dr. Glover at the time of interpretation The CT scanner at [facility] is accredited by the [employer] and the scans are performed using protocols designed to limit radiation exposure to as low as reasonably achievable to attain images of sufficient resolution adequate for diagnostic evaluation.
[2019-07-30 16:00] VITALS: BP 112/63
--- NOTE | 2019-07-30 16:00 | NUR ---
NURSE NOTES: pt asleep easily arousable , pt drowsy. call light within reach. verbal, no distress. pt refused to have dressing changed
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
--- NOTE | 2019-07-30 19:00 | NUR ---
NURSE NOTES: pt asleep easily arousable , pt drowsy. call light within reach. verbal, no distress. pt refused to have dressing changed
[2019-07-30 20:00] VITALS: BP 97/55
[2019-07-30] MEDS ORDERED: guaiFENesin 100mg/5ml Liq ud ORAL PRN (22:00)
[2019-07-30] MEDS: guaiFENesin 100mg/5ml Liq ud ORAL PRN (22:30)
[2019-07-31] VITALS: BP 114/58
[2019-07-31 04:00] VITALS: BP 104/67
[2019-07-31] MEDS: DiphenhydrAMINE 50mg/ml Inj IVP PRN ×2 (04:10→19:28)
--- NOTE | 2019-07-31 04:52 | NUR ---
NURSE NOTES: Wound care provided and changed dressing as ordered but pt refused to change dressing on L knee at this time.
[2019-07-31] MEDS: NovoLOG Insulin Flexpen SUBQ SCH ×4 (06:30→21:00)
--- NOTE | 2019-07-31 06:43 | NUR ---
NURSE NOTES: Pt refused blood sugar check and insulin. Wound care provided but refused to change dressing on the L knee. Education given but still refused x 3.
--- NOTE | 2019-07-31 07:35 | NUR ---
HAND-OFF: Report given to ANISA Woods.
[2019-07-31 08:00] VITALS: BP 90/50
[2019-07-31] MEDS: Heparin 5000 units/ml inj SUBQ SCH ×2 (10:22→21:00)
--- NOTE | 2019-07-31 11:28 | Infectious Diseases Prog Note ---
"Assessment/Plan Assessment/Plan antibiotics : linezolid A 1. MRSA sepsis 2. left knee possible septic arthritis | osteomyelitis 3. paraplegia 4. leucocytosis P 1. continue linezolid 2. 2 d echo pending 3. will follow up cultures 4. plan per surgery Subjective ROS Limited/Unobtainable: Yes Allergies: Coded Allergies: CEFTRIAXONE (Verified Allergy, Intermediate, SOB, HR-140bpm, face swollen , pt became red, 10/24/15) CODEINE (Verified Allergy, Intermediate, SWELLING, 01/03/11) LATEX (Verified Allergy, Intermediate, SWELLING, 01/03/11) PIPERACILLIN (Verified Allergy, Intermediate, Itching, 08/29/15) 08/29/15 tolerates Ceftaroline TAZOBACTAM (Verified Allergy, Intermediate, Itching, 01/29/15) POLYMYXIN B (Verified Allergy, Mild, Rash, 04/08/16) Suspected allergy reported by VANCOMYCIN (Verified Allergy, Mild, 07/15/14) ASPARAGINASE (Verified Allergy, Unknown, 01/28/14) CEFUROXIME (Unverified Allergy, Unknown, 04/19/16) IRON (Verified Allergy, Unknown, 01/28/14) LATEX, NATURAL RUBBER (Unverified Allergy, Unknown, 06/18/16) Objective Vital Signs Last 24 Hour Vital Signs Date Time Temp Pulse Resp B/P (MAP) Pulse Ox O2 Delivery O2 Flow Rate FiO2 07/31/19 04:00 97.0 58 19 104/67 (79) 94 07/31/19 00:00 98.4 90 19 114/58 (76) 99 07/30/19 21:00 Room Air 07/30/19 20:00 98.3 87 19 97/55 (69) 99 07/30/19 16:00 98.3 80 18 112/63 (79) 96 07/30/19 12:57 98.3 07/30/19 12:00 98.3 89 18 119/69 (86) 96 Height (Feet): 5 Height (Inches): 5.00 Weight (Pounds): 204 Respiratory/Chest: lungs clear Cardiovascular: normal rate, regular rhythm, no gallop/murmur Abdomen: soft, non tender Extremities: no edema, other - left knee wound Microbiology Date/Time Source Procedure Growth Status 07/28/19 17:15 Blood Blood Culture - Final Staphylococcus Aureus - Mrsa Complete 07/28/19 17:00 Blood Blood Culture - Final Staphylococcus Aureus - Mrsa Complete Current Medications Medications (Trade) Dose Ordered Sig/Pineda Route PRN Reason Start Time Stop Time Status Last Admin Dose Admin Acetaminophen (Tylenol) 650 mg Q4H PRN ORAL Mild Pain/fever 07/28/19 13:30 08/27/19 13:29 Al Hydroxide/Mg Hydroxide (Mylanta) 30 ml Q4HR PRN ORAL To Patient Comfort 07/28/19 13:30 08/27/19 13:29 Dextrose (Dextrose 50%) 25 ml Q30M PRN IV Hypoglycemia 07/29/19 15:30 10/27/19 15:29 Dextrose (Dextrose 50%) 50 ml Q30M PRN IV Hypoglycemia 07/29/19 15:30 10/27/19 15:29 Diphenhydramine HCl (Benadryl) 50 mg Q4HR PRN IVP Itching 07/28/19 17:00 08/27/19 16:59 07/31/19 04:10 Gadobutrol (Gadavist) 7.5 mmol NOW PRN IV Radiology Procedure 07/28/19 13:30 08/01/19 13:26 Guaifenesin (Robitussin) 200 mg Q4H PRN ORAL For Cough 07/30/19 23:00 10/28/19 22:59 07/30/19 22:30 Heparin Sodium (Porcine) (Heparin 5000 units/ml) 5,000 units EVERY 12 HOURS SUBQ 07/28/19 21:00 09/11/19 20:59 07/31/19 10:22 Hydromorphone HCl (Dilaudid) 1 mg Q3HR PRN IVP Moderate Pain (Pain Scale 4-6) 07/28/19 13:30 08/04/19 13:29 Hydromorphone HCl (Dilaudid) 2 mg Q3H PRN IVP Severe Pain (Pain Scale 7-10) 07/28/19 13:30 08/04/19 13:29 07/31/19 04:10 Insulin Aspart (NovoLOG) BEFORE MEALS AND HS SUBQ 07/29/19 16:30 10/27/19 16:29 Linezolid 300 ml @ 300 mls/hr Q12HR IVPB 07/30/19 13:00 08/06/19 12:59 07/31/19 10:20 Pantoprazole (Protonix) 40 mg DAILY ORAL 07/29/19 09:00 08/28/19 08:59 07/31/19 10:22 Deng Reyes MD Jul 31, 2019 11:28"
--- NOTE | 2019-07-31 11:30 | General Progress Note ---
Assessment/Plan Problem List: (1) Dehydration ICD Codes: E86.0 - Dehydration SNOMED: 05868548 (2) Opiate dependence ICD Codes: F11.20 - Opioid dependence, uncomplicated SNOMED: 90093565 (3) Colostomy care ICD Codes: Z43.3 - Encounter for attention to colostomy SNOMED: 998840457 (4) Pain ICD Codes: R52 - Pain, unspecified SNOMED: 00064513 (5) Sepsis ICD Codes: A41.9 - Sepsis SNOMED: 21833381 (6) Infection of left knee ICD Codes: M00.9 - Pyogenic arthritis, unspecified SNOMED: 16367899, 032395868 (7) right hip wound infecion/ulcer/osteo (8) Paraplegia ICD Codes: G82.20 - Paraplegia SNOMED: 28164062 (9) Cellulitis ICD Codes: L03.90 - Cellulitis, unspecified SNOMED: 591081512 Status: stable Assessment/Plan: cont current rx iv abx follow up cultures adjust abx based on cultures mri left knee consider ortho eval pain rx colostomy care monitor Na level turn q2 wound care eval Subjective ROS Limited/Unobtainable: No Constitutional: Reports: malaise, weakness HEENT: Reports: no symptoms Cardiovascular: Reports: no symptoms Respiratory: Reports: cough Gastrointestinal/Abdominal: Reports: no symptoms Genitourinary: Reports: no symptoms 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: Reports: pre-existing deficit Endocrine: Reports: no symptoms Hematologic/Lymphatic: Reports: anemia Allergies: Coded Allergies: CEFTRIAXONE (Verified Allergy, Intermediate, SOB, HR-140bpm, face swollen , pt became red, 10/24/15) CODEINE (Verified Allergy, Intermediate, SWELLING, 01/03/11) LATEX (Verified Allergy, Intermediate, SWELLING, 01/03/11) PIPERACILLIN (Verified Allergy, Intermediate, Itching, 08/29/15) 08/29/15 tolerates Ceftaroline TAZOBACTAM (Verified Allergy, Intermediate, Itching, 01/29/15) POLYMYXIN B (Verified Allergy, Mild, Rash, 04/08/16) Suspected allergy reported by VANCOMYCIN (Verified Allergy, Mild, 07/15/14) ASPARAGINASE (Verified Allergy, Unknown, 01/28/14) CEFUROXIME (Unverified Allergy, Unknown, 04/19/16) IRON (Verified Allergy, Unknown, 01/28/14) LATEX, NATURAL RUBBER (Unverified Allergy, Unknown, 06/18/16) All Systems: reviewed and negative except above Subjective no new complaints. stable. pain controlled. cultures with s.aureus. no fever or chills. no sob. ct noted. cannot r/o osteo Objective Last 24 Hour Vital Signs Date Time Temp Pulse Resp B/P (MAP) Pulse Ox O2 Delivery O2 Flow Rate FiO2 07/31/19 04:00 97.0 58 19 104/67 (79) 94 07/31/19 00:00 98.4 90 19 114/58 (76) 99 07/30/19 21:00 Room Air 07/30/19 20:00 98.3 87 19 97/55 (69) 99 07/30/19 16:00 98.3 80 18 112/63 (79) 96 07/30/19 12:57 98.3 07/30/19 12:00 98.3 89 18 119/69 (86) 96 Intake and Output 07/30/19 07/31/19 19:00 07:00 Output Total 300 ml 300 ml Balance -300 ml -300 ml Stool Total 300 ml 300 ml Height (Feet): 5 Height (Inches): 5.00 Weight (Pounds): 204 General Appearance: WD/WN, alert EENT: normal ENT inspection Neck: non-tender, normal alignment, supple, normal inspection Cardiovascular: normal peripheral pulses, normal rate, regular rhythm Respiratory/Chest: chest wall non-tender, lungs clear, normal breath sounds, no respiratory distress, no accessory muscle use Abdomen: normal bowel sounds, non tender, soft, no organomegaly Edema: no edema noted Arm (L), no edema noted Arm (R), no edema noted Leg (L), no edema noted Leg (R), no edema noted Pedal (L), no edema noted Pedal (R), no edema noted Generalized Neurologic: alert, oriented x 3, responsive, motor weakness Skin: other - multiple wounds buttocks Objective left knee swelling Jacques Chanel MD Jul 31, 2019 11:30
[2019-07-31 12:00] VITALS: BP 108/58
--- NOTE | 2019-07-31 14:08 | NUR ---
CASE MANAGEMENT: REVIEW SI: STAPH AUREUS SEPSIS . LEFT KNEE WOUND INFECTION T 97.0 HR 58 RR 18 BP 90/50 SAT 94% ROOM AIR CT RIGHT KNEE -- SOFT TISSUE EDEMA, COULD INDICATE CELLULITIS OR EDEMA IS: ZYVOX IV Q12HR PROTONIX PO QD WOUND CARE MED/SURG STATUS DCP: PATIENT IS FROM HOME
--- NOTE | 2019-07-31 14:43 | Pulmonology Progress Note ---
Assessment/Plan Assessment/Plan IMPRESSION: Concern for joint infection, concern for osteomyelitis, asthma, shortness of breath clinically stable, leukocytosis, possible sepsis with now positive blood cultures for Staphylococcus aureus, paraplegia, diabetes poorly controlled, noncompliance, severe pain. PLAN care noted antibiotics surgical follow up respiratory as is oxygen prn monitor imaging incentive spirometry impression, plan, and exam edited and reviewed in detail care discussed with RN Subjective ROS Limited/Unobtainable: No Allergies: Coded Allergies: CEFTRIAXONE (Verified Allergy, Intermediate, SOB, HR-140bpm, face swollen , pt became red, 10/24/15) CODEINE (Verified Allergy, Intermediate, SWELLING, 01/03/11) LATEX (Verified Allergy, Intermediate, SWELLING, 01/03/11) PIPERACILLIN (Verified Allergy, Intermediate, Itching, 08/29/15) 08/29/15 tolerates Ceftaroline TAZOBACTAM (Verified Allergy, Intermediate, Itching, 01/29/15) POLYMYXIN B (Verified Allergy, Mild, Rash, 04/08/16) Suspected allergy reported by VANCOMYCIN (Verified Allergy, Mild, 07/15/14) ASPARAGINASE (Verified Allergy, Unknown, 01/28/14) CEFUROXIME (Unverified Allergy, Unknown, 04/19/16) IRON (Verified Allergy, Unknown, 01/28/14) LATEX, NATURAL RUBBER (Unverified Allergy, Unknown, 06/18/16) All Systems: reviewed and negative except above Subjective reviewed care has pain abnormal CT surgery following Objective Last 24 Hour Vital Signs Date Time Temp Pulse Resp B/P (MAP) Pulse Ox O2 Delivery O2 Flow Rate FiO2 07/31/19 12:00 97.0 62 18 108/58 (75) 95 07/31/19 09:00 Room Air 07/31/19 08:00 97.6 63 18 90/50 (63) 94 07/31/19 04:00 97.0 58 19 104/67 (79) 94 07/31/19 00:00 98.4 90 19 114/58 (76) 99 07/30/19 21:00 Room Air 07/30/19 20:00 98.3 87 19 97/55 (69) 99 07/30/19 16:00 98.3 80 18 112/63 (79) 96 Intake and Output 07/30/19 07/31/19 19:00 07:00 Output Total 300 ml 300 ml Balance -300 ml -300 ml Stool Total 300 ml 300 ml Objective GENERAL: An ill-appearing female. HEENT: Negative. Extraocular movements are grossly intact. NECK: Supple. LUNGS: Moderate breath sounds. No rhonchi or wheezes. CARDIAC: S1, S2. Regular rate and rhythm without murmurs, rubs, or gallops. ABDOMEN: Soft, nontender, nondistended. EXTREMITIES: No cyanosis or clubbing. Drainage noted. Dressings noted. The patient is paraplegic. Abdomen: soft, non tender Extremities: no edema, other - left knee wound Microbiology Date/Time Source Procedure Growth Status 07/28/19 17:15 Blood Blood Culture - Final Staphylococcus Aureus - Mrsa Complete 07/28/19 17:00 Blood Blood Culture - Final Staphylococcus Aureus - Mrsa Complete Current Medications Medications (Trade) Dose Ordered Sig/Pineda Route PRN Reason Start Time Stop Time Status Last Admin Dose Admin Acetaminophen (Tylenol) 650 mg Q4H PRN ORAL Mild Pain/fever 07/28/19 13:30 08/27/19 13:29 Al Hydroxide/Mg Hydroxide (Mylanta) 30 ml Q4HR PRN ORAL To Patient Comfort 07/28/19 13:30 08/27/19 13:29 Dextrose (Dextrose 50%) 25 ml Q30M PRN IV Hypoglycemia 07/29/19 15:30 10/27/19 15:29 Dextrose (Dextrose 50%) 50 ml Q30M PRN IV Hypoglycemia 07/29/19 15:30 10/27/19 15:29 Diphenhydramine HCl (Benadryl) 50 mg Q4HR PRN IVP Itching 07/28/19 17:00 08/27/19 16:59 07/31/19 04:10 Gadobutrol (Gadavist) 7.5 mmol NOW PRN IV Radiology Procedure 07/28/19 13:30 08/01/19 13:26 Guaifenesin (Robitussin) 200 mg Q4H PRN ORAL For Cough 07/30/19 23:00 10/28/19 22:59 07/30/19 22:30 Heparin Sodium (Porcine) (Heparin 5000 units/ml) 5,000 units EVERY 12 HOURS SUBQ 07/28/19 21:00 09/11/19 20:59 07/31/19 10:22 Hydromorphone HCl (Dilaudid) 1 mg Q3HR PRN IVP Moderate Pain (Pain Scale 4-6) 07/28/19 13:30 08/04/19 13:29 Hydromorphone HCl (Dilaudid) 2 mg Q3H PRN IVP Severe Pain (Pain Scale 7-10) 07/28/19 13:30 08/04/19 13:29 07/31/19 04:10 Insulin Aspart (NovoLOG) BEFORE MEALS AND HS SUBQ 07/29/19 16:30 10/27/19 16:29 Linezolid 300 ml @ 300 mls/hr Q12HR IVPB 07/30/19 13:00 08/06/19 12:59 07/31/19 10:20 Pantoprazole (Protonix) 40 mg DAILY ORAL 07/29/19 09:00 08/28/19 08:59 07/31/19 10:22 Thanh Glover MD Jul 31, 2019 14:43
[2019-07-31 16:00] VITALS: BP 100/56
--- NOTE | 2019-07-31 19:59 | NUR ---
HAND-OFF: Report given to Ms. Ness RN.
[2019-07-31 20:00] VITALS: BP 102/63
[2019-08-01] MEDS: guaiFENesin 100mg/5ml Liq ud ORAL PRN (00:33)
[2019-08-01 04:00] VITALS: BP 113/65
--- NOTE | 2019-08-01 04:04 | NUR ---
NURSE NOTES: Offered patient daily wound care, patient refused stating "after breakfast".
[2019-08-01] MEDS: NovoLOG Insulin Flexpen SUBQ SCH ×4 (05:50→21:00)
[2019-08-01] MEDS: HYDROmorphone 1mg/ml Carpuject IVP PRN ×3 (06:17→15:53)
[2019-08-01] MEDS: DiphenhydrAMINE 50mg/ml Inj IVP PRN ×4 (06:18→21:09)
--- NOTE | 2019-08-01 07:20 | NUR ---
HAND-OFF: Report given to ANISA Yarbrough.
[2019-08-01 08:00] VITALS: BP 123/74
--- NOTE | 2019-08-01 08:04 | NUR ---
NURSE NOTES: received report from ANISA rossi. patient in be. sleeping. no respiratory distress on room air. no facial grimacing. IV on left hand. saline lock. intact. contact isolation. PPE at all times. bed bound. colostomy on LLQ intact. draining. p200 mattress for wound management. turn and reposition. bed in the lowest position and locked. call light within reach. will continue to provide plan of care.
[2019-08-01] MEDS: Heparin 5000 units/ml inj SUBQ SCH ×3 (08:18→21:00)
--- NOTE | 2019-08-01 08:26 | NUR ---
NURSE NOTES: refused heparin sq injection. explained risks and benefits. will continue to monitor patient's condition.
--- NOTE | 2019-08-01 09:46 | NUR ---
RD ASSESSMENT & RECOMMENDATIONS SEE CARE ACTIVITY FOR COMPLETE ASSESSMENT DAILY ESTIMATED NEEDS: Needs based on Wound + paraplegia, 66 kg abw 28-30 kcals/kg 3198-8908 total kcals 1.25-2 g protein/kg 83-132 g total protein 25-30 mL/kg 2345-6193 total fluid mLs NUTRITION DIAGNOSIS: (1) Increased KCAL, protein, and micronutrient needs r/t wound healing as evidenced pt w/ multiple pressure ulcers at LLE ulcer, sacrum, right ischium, and lt knee. (2) Altered nutrition related lab values R/T diabetes as evidenced by elev BGs ([phone]), elev POC glu (265-287), A1C of 8.4. CURRENT DIET:REGULAR PO DIET RECOMMENDATIONS: CCHO MED + High Prot snacks BID ADDITIONAL RECOMMENDATIONS: * Recalibrated bedscale wt for accurate CBW * WOUND CARE: MVI w/ min x1+VIT C 500mg BID ZnSO4 220mg QD x 10 days Luiz 1pkt BID (QD for now per pt request- added to tray) * Monitor BGs- elevated, h/o DM, pt refusing NISS and carb controlled diet * Glucerna TID w/ poor PO (refusing many meals at this time) .
--- NOTE | 2019-08-01 10:09 | Pulmonology Progress Note ---
Assessment/Plan Assessment/Plan IMPRESSION: Concern for joint infection, concern for osteomyelitis, asthma, shortness of breath clinically stable, leukocytosis, possible sepsis with now positive blood cultures for Staphylococcus aureus, paraplegia, diabetes poorly controlled, noncompliance, severe pain. PLAN care noted antibiotics as per ID surgical follow up respiratory as is oxygen prn monitor imaging for change incentive spirometry repeat labs impression, plan, and exam edited and reviewed in detail care discussed with RN Subjective ROS Limited/Unobtainable: No Allergies: Coded Allergies: CEFTRIAXONE (Verified Allergy, Intermediate, SOB, HR-140bpm, face swollen , pt became red, 10/24/15) CODEINE (Verified Allergy, Intermediate, SWELLING, 01/03/11) LATEX (Verified Allergy, Intermediate, SWELLING, 01/03/11) PIPERACILLIN (Verified Allergy, Intermediate, Itching, 08/29/15) 08/29/15 tolerates Ceftaroline TAZOBACTAM (Verified Allergy, Intermediate, Itching, 01/29/15) POLYMYXIN B (Verified Allergy, Mild, Rash, 04/08/16) Suspected allergy reported by VANCOMYCIN (Verified Allergy, Mild, 07/15/14) ASPARAGINASE (Verified Allergy, Unknown, 01/28/14) CEFUROXIME (Unverified Allergy, Unknown, 04/19/16) IRON (Verified Allergy, Unknown, 01/28/14) LATEX, NATURAL RUBBER (Unverified Allergy, Unknown, 06/18/16) All Systems: reviewed and negative except above Subjective reviewed care has pain abnormal CT surgery following slight improvement Objective Last 24 Hour Vital Signs Date Time Temp Pulse Resp B/P (MAP) Pulse Ox O2 Delivery O2 Flow Rate FiO2 08/01/19 06:47 97.9 08/01/19 04:00 97.9 90 20 113/65 (81) 95 07/31/19 22:30 Room Air 07/31/19 20:00 98.6 91 18 102/63 (76) 95 07/31/19 19:58 97.8 07/31/19 16:00 97.8 90 18 100/56 (71) 95 07/31/19 12:00 97.0 62 18 108/58 (75) 95 Intake and Output 07/31/19 08/01/19 19:00 07:00 Intake Total 1080 ml 300 ml Output Total 175 ml Balance 1080 ml 125 ml Intake Oral 1080 ml 300 ml Stool Total 175 ml # Voids 1 Objective GENERAL: An ill-appearing female. HEENT: Negative. Extraocular movements are grossly intact. NECK: Supple. LUNGS: Moderate breath sounds. No rhonchi or wheezes. CARDIAC: S1, S2. Regular rate and rhythm without murmurs, rubs, or gallops. ABDOMEN: Soft, nontender, nondistended. EXTREMITIES: No cyanosis or clubbing. Drainage noted. Dressings noted. The patient is paraplegic. Abdomen: soft, non tender Extremities: no edema, other - left knee wound Current Medications Medications (Trade) Dose Ordered Sig/Pineda Route PRN Reason Start Time Stop Time Status Last Admin Dose Admin Acetaminophen (Tylenol) 650 mg Q4H PRN ORAL Mild Pain/fever 07/28/19 13:30 08/27/19 13:29 Al Hydroxide/Mg Hydroxide (Mylanta) 30 ml Q4HR PRN ORAL To Patient Comfort 07/28/19 13:30 08/27/19 13:29 Dextrose (Dextrose 50%) 25 ml Q30M PRN IV Hypoglycemia 07/29/19 15:30 10/27/19 15:29 Dextrose (Dextrose 50%) 50 ml Q30M PRN IV Hypoglycemia 07/29/19 15:30 10/27/19 15:29 Diphenhydramine HCl (Benadryl) 50 mg Q4HR PRN IVP Itching 07/28/19 17:00 08/27/19 16:59 08/01/19 06:18 Gadobutrol (Gadavist) 7.5 mmol NOW PRN IV Radiology Procedure 07/28/19 13:30 08/01/19 13:26 Guaifenesin (Robitussin) 200 mg Q4H PRN ORAL For Cough 07/30/19 23:00 10/28/19 22:59 08/01/19 00:33 Heparin Sodium (Porcine) (Heparin 5000 units/ml) 5,000 units EVERY 12 HOURS SUBQ 07/28/19 21:00 09/11/19 20:59 07/31/19 10:22 Hydromorphone HCl (Dilaudid) 1 mg Q3HR PRN IVP Moderate Pain (Pain Scale 4-6) 07/28/19 13:30 08/04/19 13:29 08/01/19 06:17 Hydromorphone HCl (Dilaudid) 2 mg Q3H PRN IVP Severe Pain (Pain Scale 7-10) 07/28/19 13:30 08/04/19 13:29 07/31/19 19:28 Insulin Aspart (NovoLOG) BEFORE MEALS AND HS SUBQ 07/29/19 16:30 10/27/19 16:29 Linezolid 300 ml @ 300 mls/hr Q12HR IVPB 07/30/19 13:00 08/06/19 12:59 08/01/19 08:17 Pantoprazole (Protonix) 40 mg DAILY ORAL 07/29/19 09:00 08/28/19 08:59 08/01/19 08:16 Thanh Glover MD Aug 01, 2019 10:09
--- NOTE | 2019-08-01 10:36 | Infectious Diseases Prog Note ---
"Assessment/Plan Assessment/Plan antibiotics : linezolid A 1. MRSA sepsis 2. left knee possible septic arthritis | osteomyelitis 3. paraplegia 4. leucocytosis 5. renal failure P 1. continue linezolid 2. 2 d echo pending 3. will follow up cultures 4. plan per surgery Subjective Constitutional: Denies: fever, chills Respiratory: Denies: shortness of breath, dry cough Gastrointestinal/Abdominal: Denies: nausea, vomiting, diarrhea Musculoskeletal: Reports: pain Allergies: Coded Allergies: CEFTRIAXONE (Verified Allergy, Intermediate, SOB, HR-140bpm, face swollen , pt became red, 10/24/15) CODEINE (Verified Allergy, Intermediate, SWELLING, 01/03/11) LATEX (Verified Allergy, Intermediate, SWELLING, 01/03/11) PIPERACILLIN (Verified Allergy, Intermediate, Itching, 08/29/15) 08/29/15 tolerates Ceftaroline TAZOBACTAM (Verified Allergy, Intermediate, Itching, 01/29/15) POLYMYXIN B (Verified Allergy, Mild, Rash, 04/08/16) Suspected allergy reported by VANCOMYCIN (Verified Allergy, Mild, 07/15/14) ASPARAGINASE (Verified Allergy, Unknown, 01/28/14) CEFUROXIME (Unverified Allergy, Unknown, 04/19/16) IRON (Verified Allergy, Unknown, 01/28/14) LATEX, NATURAL RUBBER (Unverified Allergy, Unknown, 06/18/16) Objective Vital Signs Last 24 Hour Vital Signs Date Time Temp Pulse Resp B/P (MAP) Pulse Ox O2 Delivery O2 Flow Rate FiO2 08/01/19 06:47 97.9 08/01/19 04:00 97.9 90 20 113/65 (81) 95 07/31/19 22:30 Room Air 07/31/19 20:00 98.6 91 18 102/63 (76) 95 07/31/19 19:58 97.8 07/31/19 16:00 97.8 90 18 100/56 (71) 95 07/31/19 12:00 97.0 62 18 108/58 (75) 95 Height (Feet): 5 Height (Inches): 5.00 Weight (Pounds): 202 Respiratory/Chest: lungs clear Cardiovascular: normal rate, regular rhythm, no gallop/murmur Abdomen: soft, non tender Extremities: no edema, other - left knee wound Current Medications Medications (Trade) Dose Ordered Sig/Pineda Route PRN Reason Start Time Stop Time Status Last Admin Dose Admin Acetaminophen (Tylenol) 650 mg Q4H PRN ORAL Mild Pain/fever 07/28/19 13:30 08/27/19 13:29 Al Hydroxide/Mg Hydroxide (Mylanta) 30 ml Q4HR PRN ORAL To Patient Comfort 07/28/19 13:30 08/27/19 13:29 Dextrose (Dextrose 50%) 25 ml Q30M PRN IV Hypoglycemia 07/29/19 15:30 10/27/19 15:29 Dextrose (Dextrose 50%) 50 ml Q30M PRN IV Hypoglycemia 07/29/19 15:30 10/27/19 15:29 Diphenhydramine HCl (Benadryl) 50 mg Q4HR PRN IVP Itching 07/28/19 17:00 08/27/19 16:59 08/01/19 06:18 Gadobutrol (Gadavist) 7.5 mmol NOW PRN IV Radiology Procedure 07/28/19 13:30 08/01/19 13:26 Guaifenesin (Robitussin) 200 mg Q4H PRN ORAL For Cough 07/30/19 23:00 10/28/19 22:59 08/01/19 00:33 Heparin Sodium (Porcine) (Heparin 5000 units/ml) 5,000 units EVERY 12 HOURS SUBQ 07/28/19 21:00 09/11/19 20:59 07/31/19 10:22 Hydromorphone HCl (Dilaudid) 1 mg Q3HR PRN IVP Moderate Pain (Pain Scale 4-6) 07/28/19 13:30 08/04/19 13:29 08/01/19 06:17 Hydromorphone HCl (Dilaudid) 2 mg Q3H PRN IVP Severe Pain (Pain Scale 7-10) 07/28/19 13:30 08/04/19 13:29 07/31/19 19:28 Insulin Aspart (NovoLOG) BEFORE MEALS AND HS SUBQ 07/29/19 16:30 10/27/19 16:29 Linezolid 300 ml @ 300 mls/hr Q12HR IVPB 07/30/19 13:00 08/06/19 12:59 08/01/19 08:17 Pantoprazole (Protonix) 40 mg DAILY ORAL 07/29/19 09:00 08/28/19 08:59 08/01/19 08:16 Deng Reyes MD Aug 01, 2019 10:36"
[2019-08-01 10:51] LABS: HEMATOCRIT 24.9 % (37.0-47.0); HEMOGLOBIN 8.1 G/DL (12.0-16.0); MEAN CORPUSCULAR VOLUME 80 FL (80-99); PLATELET COUNT 413 K/UL (150-450); RED BLOOD COUNT 3.09 M/UL (4.20-5.40); RED CELL DISTRIBUTION WIDTH 13.9 % (11.6-14.8); WHITE BLOOD COUNT 17.6 K/UL (4.8-10.8)
[2019-08-01 10:53] LABS: ANION GAP 9 mmol/L (5-15); BLOOD UREA NITROGEN 53 mg/dL (7-18); CALCIUM 9.2 MG/DL (8.5-10.1); CARBON DIOXIDE 24 MMOL/L (21-32); CHLORIDE 94 MMOL/L (98-107); POTASSIUM 3.9 MMOL/L (3.5-5.1); SODIUM 127 MMOL/L (136-145)
[2019-08-01 12:00] VITALS: BP 128/80
--- NOTE | 2019-08-01 15:10 | General Progress Note ---
Assessment/Plan Problem List: (1) Dehydration ICD Codes: E86.0 - Dehydration SNOMED: 68325713 (2) Opiate dependence ICD Codes: F11.20 - Opioid dependence, uncomplicated SNOMED: 80494019 (3) Colostomy care ICD Codes: Z43.3 - Encounter for attention to colostomy SNOMED: 168721159 (4) Pain ICD Codes: R52 - Pain, unspecified SNOMED: 98724326 (5) Sepsis ICD Codes: A41.9 - Sepsis SNOMED: 54032091 (6) Infection of left knee ICD Codes: M00.9 - Pyogenic arthritis, unspecified SNOMED: 30261600, 496622347 (7) right hip wound infecion/ulcer/osteo (8) Paraplegia ICD Codes: G82.20 - Paraplegia SNOMED: 26528602 (9) Cellulitis ICD Codes: L03.90 - Cellulitis, unspecified SNOMED: 637494602 (10) Asthma ICD Codes: J45.909 - Unspecified asthma, uncomplicated SNOMED: 318433004 Status: stable Assessment/Plan: cont current rx iv abx follow up cultures adjust abx based on cultures mri left knee consider ortho eval pain rx colostomy care monitor Na level turn q2 wound care eval Subjective ROS Limited/Unobtainable: No Constitutional: Reports: malaise, weakness HEENT: Reports: no symptoms Cardiovascular: Reports: no symptoms Respiratory: Reports: cough Gastrointestinal/Abdominal: Reports: no symptoms Genitourinary: Reports: no symptoms 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: Reports: pre-existing deficit Endocrine: Reports: no symptoms Hematologic/Lymphatic: Reports: no symptoms Allergies: Coded Allergies: CEFTRIAXONE (Verified Allergy, Intermediate, SOB, HR-140bpm, face swollen , pt became red, 10/24/15) CODEINE (Verified Allergy, Intermediate, SWELLING, 01/03/11) LATEX (Verified Allergy, Intermediate, SWELLING, 01/03/11) PIPERACILLIN (Verified Allergy, Intermediate, Itching, 08/29/15) 08/29/15 tolerates Ceftaroline TAZOBACTAM (Verified Allergy, Intermediate, Itching, 01/29/15) POLYMYXIN B (Verified Allergy, Mild, Rash, 04/08/16) Suspected allergy reported by VANCOMYCIN (Verified Allergy, Mild, 07/15/14) ASPARAGINASE (Verified Allergy, Unknown, 01/28/14) CEFUROXIME (Unverified Allergy, Unknown, 04/19/16) IRON (Verified Allergy, Unknown, 01/28/14) LATEX, NATURAL RUBBER (Unverified Allergy, Unknown, 06/18/16) All Systems: reviewed and negative except above Subjective no new complaints. stable. pain controlled. cultures with s.aureus. no fever or chills. no sob. ct noted. cannot r/o osteo cooperative with wound care. Objective Last 24 Hour Vital Signs Date Time Temp Pulse Resp B/P (MAP) Pulse Ox O2 Delivery O2 Flow Rate FiO2 08/01/19 12:00 98.2 87 20 128/80 (96) 98 08/01/19 09:00 Room Air 08/01/19 08:00 98.1 94 18 123/74 (90) 99 08/01/19 06:47 97.9 08/01/19 04:00 97.9 90 20 113/65 (81) 95 07/31/19 22:30 Room Air 07/31/19 20:00 98.6 91 18 102/63 (76) 95 07/31/19 19:58 97.8 07/31/19 16:00 97.8 90 18 100/56 (71) 95 Intake and Output 07/31/19 08/01/19 19:00 07:00 Intake Total 1080 ml 300 ml Output Total 175 ml Balance 1080 ml 125 ml Intake Oral 1080 ml 300 ml Stool Total 175 ml # Voids 1 Laboratory Tests 08/01/19 10:35: White Blood Count 17.6H, Red Blood Count 3.09L, Hemoglobin 8.1L, Hematocrit 24.9L, Mean Corpuscular Volume 80, Mean Corpuscular Hemoglobin 26.1L, Mean Corpuscular Hemoglobin Concent 32.4, Red Cell Distribution Width 13.9, Platelet Count 413, Mean Platelet Volume 7.8, Neutrophils (%) (Auto) , Lymphocytes (%) ( Auto) , Monocytes (%) (Auto) , Eosinophils (%) (Auto) , Basophils (%) (Auto) , Differential Total Cells Counted 100, Neutrophils % (Manual) 82H, Lymphocytes % (Manual) 14L, Monocytes % (Manual) 3, Eosinophils % (Manual) 1, Basophils % ( Manual) 0, Band Neutrophils 0, Platelet Estimate Adequate, Platelet Morphology Normal, Sodium Level 127L, Potassium Level 3.9, Chloride Level 94L, Carbon Dioxide Level 24, Anion Gap 9, Blood Urea Nitrogen 53H, Creatinine 1.0, Estimat Glomerular Filtration Rate > 60, Glucose Level 276H, Calcium Level 9.2 Height (Feet): 5 Height (Inches): 5.00 Weight (Pounds): 202 General Appearance: WD/WN, alert EENT: normal ENT inspection Neck: non-tender, normal alignment, supple, normal inspection Cardiovascular: normal peripheral pulses, normal rate, regular rhythm Respiratory/Chest: chest wall non-tender, lungs clear, normal breath sounds, no respiratory distress Abdomen: normal bowel sounds, non tender, soft, no organomegaly Edema: no edema noted Arm (L), no edema noted Arm (R), no edema noted Leg (L), no edema noted Leg (R), no edema noted Pedal (L), no edema noted Pedal (R), no edema noted Generalized Edema: trace edema Neurologic: motor weakness Skin: normal pigmentation Objective left knee swelling Jacques Chanel MD Aug 01, 2019 15:10
[2019-08-01 16:00] VITALS: BP 121/73
--- NOTE | 2019-08-01 16:26 | NUR ---
NURSE NOTES:WOUND CARE NOTES:Pt declined to be seen by Wound Nurse. Primary Nurse Zenon informed Pt did not wish to be seen.
--- NOTE | 2019-08-01 17:38 | NUR ---
CASE MANAGEMENT: REVIEW SI: STAPH AUREUS SEPSIS . LEFT KNEE WOUND INFECTION T 97.9 HR 90 RR 20 BP 113/65 SAT 95% ROOM AIR WBC 17.6 H/H 8.1/24.9 NA 127 BUN 53 GLUCOSE 276 IS: ZYVOX IV Q12HR PROTONIX PO QD WOUND CARE MED/SURG STATUS DCP: PATIENT IS FROM HOME
--- NOTE | 2019-08-01 19:25 | NUR ---
HAND-OFF: Report given to ANISA Vazquez.
--- NOTE | 2019-08-01 19:30 | NUR ---
NURSE NOTES: RECEIVED PATIENT FROM ANISA BOSTON. PATIENT IS AWAKE, AAOX4, ON ROOM AIR, C/O 10/10 BACK PAIN. WILL FOLLOW UP WITH PRN PAIN MEDS. COLOSTOMY BAG PRESENT, DRAINING WELL. P200 MATTRESS [address]. WOUND DRESSINGS INTACT AND DRY. IV IS INTACT AND PATENT. BED IS LOCKED AND LOW, BED ALARMS NOTED, SIDE RAILS UPX2 AND CALL LIGHT IS WITHIN REACH. WILL CONTINUE TO MONITOR.
[2019-08-01 20:00] VITALS: BP 104/51
[2019-08-02] VITALS: BP 94/54
[2019-08-02 04:00] VITALS: BP 130/64
[2019-08-02] MEDS: HYDROmorphone 1mg/ml Carpuject IVP PRN (05:59)
[2019-08-02] MEDS: NovoLOG Insulin Flexpen SUBQ SCH ×4 (06:30→20:55)
--- NOTE | 2019-08-02 07:34 | NUR ---
NURSE NOTES: received report from Taylor,RN. patient in bed. A&Ox4, verbally responsive. no respiratory distress noted on room air. no pain at this time. colostomy on LLQ intact. p200 mattress for wound management. IV on RFA saline intact. contact isolation. PPE at all times. call light within reach. alarm on. will continue to provide plan of care.
--- NOTE | 2019-08-02 07:57 | NUR ---
HAND-OFF: Report given to ANISA BOSTON.
[2019-08-02 08:00] VITALS: BP 90/52
[2019-08-02] MEDS: Heparin 5000 units/ml inj SUBQ SCH ×2 (09:00→20:55)
--- NOTE | 2019-08-02 09:06 | Pulmonology Progress Note ---
Assessment/Plan Assessment/Plan IMPRESSION: Concern for joint infection, concern for osteomyelitis, asthma, shortness of breath clinically stable, leukocytosis, possible sepsis with now positive blood cultures for Staphylococcus aureus, paraplegia, diabetes poorly controlled, noncompliance, severe pain. PLAN care noted antibiotics as per ID surgical follow up - Dr. Cristobal respiratory as is oxygen prn monitor imaging incentive spirometry repeat labs reviewed care with other consultants impression, plan, and exam edited and reviewed in detail care discussed with RN Subjective ROS Limited/Unobtainable: No Constitutional: Denies: fever, chills Gastrointestinal/Abdominal: Denies: nausea, vomiting, diarrhea Musculoskeletal: Reports: pain Allergies: Coded Allergies: CEFTRIAXONE (Verified Allergy, Intermediate, SOB, HR-140bpm, face swollen , pt became red, 10/24/15) CODEINE (Verified Allergy, Intermediate, SWELLING, 01/03/11) LATEX (Verified Allergy, Intermediate, SWELLING, 01/03/11) PIPERACILLIN (Verified Allergy, Intermediate, Itching, 08/29/15) 08/29/15 tolerates Ceftaroline TAZOBACTAM (Verified Allergy, Intermediate, Itching, 01/29/15) POLYMYXIN B (Verified Allergy, Mild, Rash, 04/08/16) Suspected allergy reported by VANCOMYCIN (Verified Allergy, Mild, 07/15/14) ASPARAGINASE (Verified Allergy, Unknown, 01/28/14) CEFUROXIME (Unverified Allergy, Unknown, 04/19/16) IRON (Verified Allergy, Unknown, 01/28/14) LATEX, NATURAL RUBBER (Unverified Allergy, Unknown, 06/18/16) All Systems: reviewed and negative except above Subjective reviewed care has pain and very weak abnormal CT surgery following Objective Last 24 Hour Vital Signs Date Time Temp Pulse Resp B/P (MAP) Pulse Ox O2 Delivery O2 Flow Rate FiO2 08/02/19 04:00 96.1 97 20 130/64 (86) 99 08/02/19 00:00 99.3 103 20 94/54 (67) 96 08/01/19 21:00 Room Air 08/01/19 20:00 97.7 102 20 104/51 (68) 98 08/01/19 16:00 98.7 82 19 121/73 (89) 97 08/01/19 12:00 98.2 87 20 128/80 (96) 98 Intake and Output 08/01/19 08/02/19 19:00 07:00 Intake Total 500 ml 300 ml Output Total 350 ml Balance 500 ml -50 ml Intake Oral 500 ml IV Total 300 ml Stool Total 350 ml # Voids 2 Objective GENERAL: An ill-appearing female. HEENT: Negative. Extraocular movements are grossly intact. NECK: Supple. LUNGS: Moderate breath sounds. No rhonchi or wheezes. CARDIAC: S1, S2. Regular rate and rhythm without murmurs, rubs, or gallops. ABDOMEN: Soft, nontender, nondistended. EXTREMITIES: No cyanosis or clubbing. Drainage noted. Dressings noted. The patient is paraplegic. Abdomen: soft, non tender Extremities: no edema, other - left knee wound Laboratory Tests 08/01/19 10:35: White Blood Count 17.6H, Red Blood Count 3.09L, Hemoglobin 8.1L, Hematocrit 24.9L, Mean Corpuscular Volume 80, Mean Corpuscular Hemoglobin 26.1L, Mean Corpuscular Hemoglobin Concent 32.4, Red Cell Distribution Width 13.9, Platelet Count 413, Mean Platelet Volume 7.8, Neutrophils (%) (Auto) , Lymphocytes (%) ( Auto) , Monocytes (%) (Auto) , Eosinophils (%) (Auto) , Basophils (%) (Auto) , Differential Total Cells Counted 100, Neutrophils % (Manual) 82H, Lymphocytes % (Manual) 14L, Monocytes % (Manual) 3, Eosinophils % (Manual) 1, Basophils % ( Manual) 0, Band Neutrophils 0, Platelet Estimate Adequate, Platelet Morphology Normal, Sodium Level 127L, Potassium Level 3.9, Chloride Level 94L, Carbon Dioxide Level 24, Anion Gap 9, Blood Urea Nitrogen 53H, Creatinine 1.0, Estimat Glomerular Filtration Rate > 60, Glucose Level 276H, Calcium Level 9.2 Current Medications Medications (Trade) Dose Ordered Sig/Pineda Route PRN Reason Start Time Stop Time Status Last Admin Dose Admin Acetaminophen (Tylenol) 650 mg Q4H PRN ORAL Mild Pain/fever 07/28/19 13:30 08/27/19 13:29 Al Hydroxide/Mg Hydroxide (Mylanta) 30 ml Q4HR PRN ORAL To Patient Comfort 07/28/19 13:30 08/27/19 13:29 Dextrose (Dextrose 50%) 25 ml Q30M PRN IV Hypoglycemia 07/29/19 15:30 10/27/19 15:29 Dextrose (Dextrose 50%) 50 ml Q30M PRN IV Hypoglycemia 07/29/19 15:30 10/27/19 15:29 Diphenhydramine HCl (Benadryl) 50 mg Q4HR PRN IVP Itching 07/28/19 17:00 08/27/19 16:59 08/01/19 21:09 Guaifenesin (Robitussin) 200 mg Q4H PRN ORAL For Cough 07/30/19 23:00 10/28/19 22:59 08/01/19 00:33 Heparin Sodium (Porcine) (Heparin 5000 units/ml) 5,000 units EVERY 12 HOURS SUBQ 07/28/19 21:00 09/11/19 20:59 07/31/19 10:22 Hydromorphone HCl (Dilaudid) 1 mg Q3HR PRN IVP Moderate Pain (Pain Scale 4-6) 07/28/19 13:30 08/04/19 13:29 08/02/19 05:59 Hydromorphone HCl (Dilaudid) 2 mg Q3H PRN IVP Severe Pain (Pain Scale 7-10) 07/28/19 13:30 08/04/19 13:29 08/01/19 21:10 Insulin Aspart (NovoLOG) BEFORE MEALS AND HS SUBQ 07/29/19 16:30 10/27/19 16:29 Linezolid 300 ml @ 300 mls/hr Q12HR IVPB 07/30/19 13:00 08/06/19 12:59 08/01/19 21:08 Pantoprazole (Protonix) 40 mg DAILY ORAL 07/29/19 09:00 08/28/19 08:59 08/01/19 08:16 Thanh Glover MD Aug 02, 2019 09:06
[2019-08-02] MEDS: DiphenhydrAMINE 50mg/ml Inj IVP PRN ×3 (10:54→21:05)
--- NOTE | 2019-08-02 11:11 | General Progress Note ---
Assessment/Plan Problem List: (1) Dehydration ICD Codes: E86.0 - Dehydration SNOMED: 92783902 (2) Opiate dependence ICD Codes: F11.20 - Opioid dependence, uncomplicated SNOMED: 08901774 (3) Colostomy care ICD Codes: Z43.3 - Encounter for attention to colostomy SNOMED: 530015112 (4) Pain ICD Codes: R52 - Pain, unspecified SNOMED: 50928284 (5) Sepsis ICD Codes: A41.9 - Sepsis SNOMED: 35481647 (6) Infection of left knee ICD Codes: M00.9 - Pyogenic arthritis, unspecified SNOMED: 63144445, 415633213 (7) right hip wound infecion/ulcer/osteo (8) Paraplegia ICD Codes: G82.20 - Paraplegia SNOMED: 32037318 (9) Cellulitis ICD Codes: L03.90 - Cellulitis, unspecified SNOMED: 595200364 (10) Asthma ICD Codes: J45.909 - Unspecified asthma, uncomplicated SNOMED: 265095250 Status: stable Assessment/Plan: cont current rx iv abx follow up cultures adjust abx based on cultures mri left knee consider ortho eval pain rx colostomy care monitor Na level turn q2 wound care eval Subjective ROS Limited/Unobtainable: No Constitutional: Reports: malaise, weakness HEENT: Reports: no symptoms Cardiovascular: Reports: no symptoms Respiratory: Reports: no symptoms Gastrointestinal/Abdominal: Reports: abdominal pain Genitourinary: Reports: no symptoms 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: Reports: pre-existing deficit Endocrine: Reports: no symptoms Hematologic/Lymphatic: Reports: anemia Allergies: Coded Allergies: CEFTRIAXONE (Verified Allergy, Intermediate, SOB, HR-140bpm, face swollen , pt became red, 10/24/15) CODEINE (Verified Allergy, Intermediate, SWELLING, 01/03/11) LATEX (Verified Allergy, Intermediate, SWELLING, 01/03/11) PIPERACILLIN (Verified Allergy, Intermediate, Itching, 08/29/15) 08/29/15 tolerates Ceftaroline TAZOBACTAM (Verified Allergy, Intermediate, Itching, 01/29/15) POLYMYXIN B (Verified Allergy, Mild, Rash, 04/08/16) Suspected allergy reported by VANCOMYCIN (Verified Allergy, Mild, 07/15/14) ASPARAGINASE (Verified Allergy, Unknown, 01/28/14) CEFUROXIME (Unverified Allergy, Unknown, 04/19/16) IRON (Verified Allergy, Unknown, 01/28/14) LATEX, NATURAL RUBBER (Unverified Allergy, Unknown, 06/18/16) All Systems: reviewed and negative except above Subjective no new complaints. stable. pain controlled. cultures with s.aureus. no fever or chills. no sob. ct noted. cannot r/o osteo cooperative with wound care. Objective Last 24 Hour Vital Signs Date Time Temp Pulse Resp B/P (MAP) Pulse Ox O2 Delivery O2 Flow Rate FiO2 08/02/19 04:00 96.1 97 20 130/64 (86) 99 08/02/19 00:00 99.3 103 20 94/54 (67) 96 08/01/19 21:00 Room Air 08/01/19 20:00 97.7 102 20 104/51 (68) 98 08/01/19 16:00 98.7 82 19 121/73 (89) 97 08/01/19 12:00 98.2 87 20 128/80 (96) 98 Intake and Output 08/01/19 08/02/19 19:00 07:00 Intake Total 500 ml 300 ml Output Total 350 ml Balance 500 ml -50 ml Intake Oral 500 ml IV Total 300 ml Stool Total 350 ml # Voids 2 Height (Feet): 5 Height (Inches): 5.00 Weight (Pounds): 202 General Appearance: WD/WN, alert EENT: normal ENT inspection Neck: non-tender, normal alignment, supple Cardiovascular: normal peripheral pulses, normal rate, regular rhythm Respiratory/Chest: chest wall non-tender, lungs clear, normal breath sounds, no respiratory distress Abdomen: normal bowel sounds, non tender, soft, no organomegaly, no mass Edema: no edema noted Arm (L), no edema noted Arm (R), no edema noted Leg (L), no edema noted Leg (R), no edema noted Pedal (L), no edema noted Pedal (R), no edema noted Generalized Edema: trace edema Neurologic: no motor/sensory deficits, alert, motor weakness Objective left knee swelling Jacques Chanel MD Aug 02, 2019 11:11
[2019-08-02 12:00] VITALS: BP 116/62
--- NOTE | 2019-08-02 12:56 | General Progress Note ---
Assessment/Plan Status: stable Assessment/Plan: Patient with bacteremia in the face of multiple wounds. The air/gas seen on the CT is most likely present due to the break in the skin. The density seen on the scan was the iodofrom packing strip. Clinically there is no indication of a gas forming organism in the region of the knee. Her knee looks exactly the same as it did 3 days ago in that there i still no erythema, warmth, or swelling, all things that would be present if there was a worsening infectious picture in her knee and thigh. Her WBC elevation can be explained from her MRSA bacteremia, but also would not rule out a urinary source.there is absolutely no indication for surgical intervention at this time. Her wounds will be managed the same and may need to focus on adding coverage for UTI. ID is following. Subjective Date patient seen: Aug 02, 2019 Time patient seen: 12:44 Constitutional: Reports: malaise Allergies: Coded Allergies: CEFTRIAXONE (Verified Allergy, Intermediate, SOB, HR-140bpm, face swollen , pt became red, 10/24/15) CODEINE (Verified Allergy, Intermediate, SWELLING, 01/03/11) LATEX (Verified Allergy, Intermediate, SWELLING, 01/03/11) PIPERACILLIN (Verified Allergy, Intermediate, Itching, 08/29/15) 08/29/15 tolerates Ceftaroline TAZOBACTAM (Verified Allergy, Intermediate, Itching, 01/29/15) POLYMYXIN B (Verified Allergy, Mild, Rash, 04/08/16) Suspected allergy reported by MD VANCOMYCIN (Verified Allergy, Mild, 07/15/14) ASPARAGINASE (Verified Allergy, Unknown, 01/28/14) CEFUROXIME (Unverified Allergy, Unknown, 04/19/16) IRON (Verified Allergy, Unknown, 01/28/14) LATEX, NATURAL RUBBER (Unverified Allergy, Unknown, 06/18/16) Subjective F/u evaluation on patient with multiple wounds of the trunk and LLE. She had CT scan performed and this was reviewed by me. Pertinent positive on scan was air/ gas in the area of the distal thigh ulcer with some tracking toward the tibia. She has no fevers but still with low appetite and intermittent nausea WBC is 17.6 (17.1 5 days ago). Her creatinine is improved to 1. Objective Last 24 Hour Vital Signs Date Time Temp Pulse Resp B/P (MAP) Pulse Ox O2 Delivery O2 Flow Rate FiO2 08/02/19 12:00 97.9 97 18 116/62 (80) 96 08/02/19 09:00 Room Air 08/02/19 08:00 96.3 97 20 90/52 (65) 96 08/02/19 04:00 96.1 97 20 130/64 (86) 99 08/02/19 00:00 99.3 103 20 94/54 (67) 96 08/01/19 21:00 Room Air 08/01/19 20:00 97.7 102 20 104/51 (68) 98 08/01/19 16:00 98.7 82 19 121/73 (89) 97 Intake and Output 08/01/19 08/02/19 19:00 07:00 Intake Total 500 ml 300 ml Output Total 350 ml Balance 500 ml -50 ml Intake Oral 500 ml IV Total 300 ml Stool Total 350 ml # Voids 2 Height (Feet): 5 Height (Inches): 5.00 Weight (Pounds): 202 General Appearance: no apparent distress, alert, obese Respiratory/Chest: no respiratory distress Skin: other - All wounds inspected: Left distal thigh packing removed and wound probed. there is undermining circumferentially. Irrigated with 30cc saline and no purulent drainage expressable. Effluent was clear. The nkee, calf and distal thigh with NO erythema, warmth, or swelling. No bullae and no crepitus. Left posterior thigh wound is full thickness through the skin into subcutaneous tissue. Base of the wound with no slough. Predominantly granular base with some fibrotic debris centrally. Right ischial ulcer 100% granular base. Sacral ulcer with some fibrotic debris but no slough and no necrotic tissue. Periskin macerated from moisture. No erythema or warmth in the periskin of right ischial or sacral ulcers. Keegan Cristobal MD Aug 02, 2019 12:56
--- NOTE | 2019-08-02 13:39 | Infectious Diseases Prog Note ---
"Assessment/Plan Assessment/Plan A 1. MRSA sepsis 2. left knee possible septic arthritis | osteomyelitis 3. paraplegia 4. leucocytosis 5. renal failure improving 6. Hyponatremia P 1. continue linezolid 2. 2 d echo pending 3. will follow up cultures 4. plan per surgery 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 Respiratory: Reports: no symptoms Gastrointestinal/Abdominal: Reports: no symptoms Genitourinary: Reports: no symptoms Musculoskeletal: Reports: no symptoms Allergies: Coded Allergies: CEFTRIAXONE (Verified Allergy, Intermediate, SOB, HR-140bpm, face swollen , pt became red, 10/24/15) CODEINE (Verified Allergy, Intermediate, SWELLING, 01/03/11) LATEX (Verified Allergy, Intermediate, SWELLING, 01/03/11) PIPERACILLIN (Verified Allergy, Intermediate, Itching, 08/29/15) 08/29/15 tolerates Ceftaroline TAZOBACTAM (Verified Allergy, Intermediate, Itching, 01/29/15) POLYMYXIN B (Verified Allergy, Mild, Rash, 04/08/16) Suspected allergy reported by VANCOMYCIN (Verified Allergy, Mild, 07/15/14) ASPARAGINASE (Verified Allergy, Unknown, 01/28/14) CEFUROXIME (Unverified Allergy, Unknown, 04/19/16) IRON (Verified Allergy, Unknown, 01/28/14) LATEX, NATURAL RUBBER (Unverified Allergy, Unknown, 06/18/16) Objective Vital Signs Last 24 Hour Vital Signs Date Time Temp Pulse Resp B/P (MAP) Pulse Ox O2 Delivery O2 Flow Rate FiO2 08/02/19 12:00 97.9 97 18 116/62 (80) 96 08/02/19 09:00 Room Air 08/02/19 08:00 96.3 97 20 90/52 (65) 96 08/02/19 04:00 96.1 97 20 130/64 (86) 99 08/02/19 00:00 99.3 103 20 94/54 (67) 96 08/01/19 21:00 Room Air 08/01/19 20:00 97.7 102 20 104/51 (68) 98 08/01/19 16:00 98.7 82 19 121/73 (89) 97 Height (Feet): 5 Height (Inches): 5.00 Weight (Pounds): 202 General Appearance: no acute distress HEENT: mucous membranes moist Respiratory/Chest: lungs clear Cardiovascular: normal rate Abdomen: soft, non tender, other - obese Extremities: other - dependent edema Skin: ulcers, other 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: alert, oriented x 3, responsive, other - paraplegia Current Medications Medications (Trade) Dose Ordered Sig/Pineda Route PRN Reason Start Time Stop Time Status Last Admin Dose Admin Acetaminophen (Tylenol) 650 mg Q4H PRN ORAL Mild Pain/fever 07/28/19 13:30 08/27/19 13:29 Al Hydroxide/Mg Hydroxide (Mylanta) 30 ml Q4HR PRN ORAL To Patient Comfort 07/28/19 13:30 08/27/19 13:29 Dextrose (Dextrose 50%) 25 ml Q30M PRN IV Hypoglycemia 07/29/19 15:30 10/27/19 15:29 Dextrose (Dextrose 50%) 50 ml Q30M PRN IV Hypoglycemia 07/29/19 15:30 10/27/19 15:29 Diphenhydramine HCl (Benadryl) 50 mg Q4HR PRN IVP Itching 07/28/19 17:00 08/27/19 16:59 08/02/19 10:54 Guaifenesin (Robitussin) 200 mg Q4H PRN ORAL For Cough 07/30/19 23:00 10/28/19 22:59 08/01/19 00:33 Heparin Sodium (Porcine) (Heparin 5000 units/ml) 5,000 units EVERY 12 HOURS SUBQ 07/28/19 21:00 09/11/19 20:59 07/31/19 10:22 Hydromorphone HCl (Dilaudid) 1 mg Q3HR PRN IVP Moderate Pain (Pain Scale 4-6) 07/28/19 13:30 08/04/19 13:29 08/02/19 05:59 Hydromorphone HCl (Dilaudid) 2 mg Q3H PRN IVP Severe Pain (Pain Scale 7-10) 07/28/19 13:30 08/04/19 13:29 08/02/19 10:54 Insulin Aspart (NovoLOG) BEFORE MEALS AND HS SUBQ 07/29/19 16:30 10/27/19 16:29 Linezolid 300 ml @ 300 mls/hr Q12HR IVPB 07/30/19 13:00 08/06/19 12:59 08/02/19 09:31 Pantoprazole (Protonix) 40 mg DAILY ORAL 07/29/19 09:00 08/28/19 08:59 08/02/19 09:31 Vaughn Juárez MD Aug 02, 2019 13:39"
[2019-08-02 16:00] VITALS: BP 107/80
--- NOTE | 2019-08-02 16:30 | NUR ---
NURSE NOTES: Patient refused Blood sugar check. refused wound care. explained risks and benefits.
--- NOTE | 2019-08-02 19:20 | NUR ---
HAND-OFF: Report given to ANISA Lui.
--- NOTE | 2019-08-02 19:45 | NUR ---
NURSE NOTES: Received patient in bed, awake, alert, oriented x4, able to make her needs known. Patient is on p 200 mattress, has colostomy on left lower quadrant, looks clean dry and intact. IV site is clean dry and intact. Call light is within reach, bed is lowered, locked, alarm is on, will continue to monitor for comfort and safety.
[2019-08-02 20:00] VITALS: BP 117/77
--- NOTE | 2019-08-02 20:57 | NUR ---
NURSE NOTES: patient refused accu check to be done and heparin injection, educated on importance to stay compliant with medication regimen, patient verbalized understanding but refused anyway.
[2019-08-03] VITALS: BP 106/71
[2019-08-03] MEDS: DiphenhydrAMINE 50mg/ml Inj IVP PRN ×4 (02:08→22:46)
[2019-08-03] MEDS ORDERED: LORazepam 1mg tab ORAL PRN (03:00)
[2019-08-03 04:00] VITALS: BP 135/69
[2019-08-03] MEDS: NovoLOG Insulin Flexpen SUBQ SCH ×4 (06:30→21:00)
--- NOTE | 2019-08-03 07:14 | NUR ---
HAND-OFF: Report given to Ely LANGE.
--- NOTE | 2019-08-03 07:18 | NUR ---
NURSE NOTES: Received report from ANISA Rawls (Rita). Patient drowsy. On room air, no signs of distress or labored breathing. IV intact, patent, and saline locked. LLQ Colostomy dry and intact. Bed in lowest position with call light in reach. Will continue with plan of care.
[2019-08-03 08:00] VITALS: BP 100/53
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
--- NOTE | 2019-08-03 08:49 | Pulmonology Progress Note ---
Assessment/Plan Assessment/Plan IMPRESSION: Concern for joint infection, concern for osteomyelitis, asthma, shortness of breath clinically stable, leukocytosis, possible sepsis with now positive blood cultures for Staphylococcus aureus, paraplegia, diabetes poorly controlled, noncompliance, severe pain. tachycardia PLAN care noted cardiology ECG ativan PRN antibiotics as per ID surgical follow up - Dr. Cristobal respiratory as is oxygen prn monitor imaging incentive spirometry repeat labs reviewed care with other consultants impression, plan, and exam edited and reviewed in detail care discussed with RN 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 Gastrointestinal/Abdominal: Reports: no symptoms Musculoskeletal: Reports: no symptoms Allergies: Coded Allergies: CEFTRIAXONE (Verified Allergy, Intermediate, SOB, HR-140bpm, face swollen , pt became red, 10/24/15) CODEINE (Verified Allergy, Intermediate, SWELLING, 01/03/11) LATEX (Verified Allergy, Intermediate, SWELLING, 01/03/11) PIPERACILLIN (Verified Allergy, Intermediate, Itching, 08/29/15) 08/29/15 tolerates Ceftaroline TAZOBACTAM (Verified Allergy, Intermediate, Itching, 01/29/15) POLYMYXIN B (Verified Allergy, Mild, Rash, 04/08/16) Suspected allergy reported by VANCOMYCIN (Verified Allergy, Mild, 07/15/14) ASPARAGINASE (Verified Allergy, Unknown, 01/28/14) CEFUROXIME (Unverified Allergy, Unknown, 04/19/16) IRON (Verified Allergy, Unknown, 01/28/14) LATEX, NATURAL RUBBER (Unverified Allergy, Unknown, 06/18/16) All Systems: reviewed and negative except above Subjective reviewed care has pain and very weak tachycardic and anxious Objective Last 24 Hour Vital Signs Date Time Temp Pulse Resp B/P (MAP) Pulse Ox O2 Delivery O2 Flow Rate FiO2 08/03/19 04:00 98.8 127 22 135/69 (91) 96 08/03/19 02:46 97.0 08/03/19 00:00 97.0 147 24 106/71 (83) 96 08/02/19 21:33 Room Air 08/02/19 20:00 98.8 100 20 117/77 (90) 97 08/02/19 16:00 97.5 95 20 107/80 (89) 96 08/02/19 12:00 97.9 97 18 116/62 (80) 96 08/02/19 09:00 Room Air Intake and Output 08/02/19 08/03/19 19:00 07:00 # Voids 2 Objective GENERAL: An ill-appearing female. HEENT: Negative. Extraocular movements are grossly intact. NECK: Supple. LUNGS: Moderate breath sounds. No rhonchi or wheezes. CARDIAC: S1, S2. Regular rhythm without murmurs, rubs, or gallops. tachy ABDOMEN: Soft, nontender, nondistended. EXTREMITIES: No cyanosis or clubbing. Drainage noted. Dressings noted. The patient is paraplegic. General Appearance: no acute distress HEENT: mucous membranes moist Abdomen: soft, non tender, other - obese Extremities: other - dependent edema Skin: ulcers, other 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: alert, oriented x 3, responsive, other - paraplegia Current Medications Medications (Trade) Dose Ordered Sig/Pineda Route PRN Reason Start Time Stop Time Status Last Admin Dose Admin Acetaminophen (Tylenol) 650 mg Q4H PRN ORAL Mild Pain/fever 07/28/19 13:30 08/27/19 13:29 Al Hydroxide/Mg Hydroxide (Mylanta) 30 ml Q4HR PRN ORAL To Patient Comfort 07/28/19 13:30 08/27/19 13:29 Dextrose (Dextrose 50%) 25 ml Q30M PRN IV Hypoglycemia 07/29/19 15:30 10/27/19 15:29 Dextrose (Dextrose 50%) 50 ml Q30M PRN IV Hypoglycemia 07/29/19 15:30 10/27/19 15:29 Diphenhydramine HCl (Benadryl) 50 mg Q4HR PRN IVP Itching 07/28/19 17:00 08/27/19 16:59 08/03/19 02:08 Guaifenesin (Robitussin) 200 mg Q4H PRN ORAL For Cough 07/30/19 23:00 10/28/19 22:59 08/01/19 00:33 Heparin Sodium (Porcine) (Heparin 5000 units/ml) 5,000 units EVERY 12 HOURS SUBQ 07/28/19 21:00 09/11/19 20:59 07/31/19 10:22 Hydromorphone HCl (Dilaudid) 1 mg Q3HR PRN IVP Moderate Pain (Pain Scale 4-6) 07/28/19 13:30 08/04/19 13:29 08/02/19 05:59 Hydromorphone HCl (Dilaudid) 2 mg Q3H PRN IVP Severe Pain (Pain Scale 7-10) 07/28/19 13:30 08/04/19 13:29 08/03/19 02:08 Insulin Aspart (NovoLOG) BEFORE MEALS AND HS SUBQ 07/29/19 16:30 10/27/19 16:29 Linezolid 300 ml @ 300 mls/hr Q12HR IVPB 07/30/19 13:00 08/06/19 12:59 08/02/19 21:05 Lorazepam (Ativan) 1 mg Q4H PRN ORAL For Anxiety 08/03/19 03:00 08/10/19 02:59 Pantoprazole (Protonix) 40 mg DAILY ORAL 07/29/19 09:00 08/28/19 08:59 08/02/19 09:31 Thanh Glover MD Aug 03, 2019 08:49
[2019-08-03] MEDS: Heparin 5000 units/ml inj SUBQ SCH ×2 (09:00→21:00)
--- NOTE | 2019-08-03 11:23 | Infectious Diseases Prog Note ---
"Assessment/Plan Assessment/Plan antibiotics : linezolid A 1. MRSA sepsis 2. left knee possible septic arthritis | osteomyelitis 3. paraplegia 4. leucocytosis 5. renal failure improving P 1. continue linezolid 2. 2 d echo pending 3. will follow up cultures Subjective Constitutional: Denies: fever, chills Respiratory: Denies: shortness of breath, dry cough Gastrointestinal/Abdominal: Denies: nausea, vomiting, diarrhea Musculoskeletal: Reports: pain Allergies: Coded Allergies: CEFTRIAXONE (Verified Allergy, Intermediate, SOB, HR-140bpm, face swollen , pt became red, 10/24/15) CODEINE (Verified Allergy, Intermediate, SWELLING, 01/03/11) LATEX (Verified Allergy, Intermediate, SWELLING, 01/03/11) PIPERACILLIN (Verified Allergy, Intermediate, Itching, 08/29/15) 08/29/15 tolerates Ceftaroline TAZOBACTAM (Verified Allergy, Intermediate, Itching, 01/29/15) POLYMYXIN B (Verified Allergy, Mild, Rash, 04/08/16) Suspected allergy reported by VANCOMYCIN (Verified Allergy, Mild, 07/15/14) ASPARAGINASE (Verified Allergy, Unknown, 01/28/14) CEFUROXIME (Unverified Allergy, Unknown, 04/19/16) IRON (Verified Allergy, Unknown, 01/28/14) LATEX, NATURAL RUBBER (Unverified Allergy, Unknown, 06/18/16) Objective Vital Signs Last 24 Hour Vital Signs Date Time Temp Pulse Resp B/P (MAP) Pulse Ox O2 Delivery O2 Flow Rate FiO2 08/03/19 04:00 98.8 127 22 135/69 (91) 96 08/03/19 02:46 97.0 08/03/19 00:00 97.0 147 24 106/71 (83) 96 08/02/19 21:33 Room Air 08/02/19 20:00 98.8 100 20 117/77 (90) 97 08/02/19 16:00 97.5 95 20 107/80 (89) 96 08/02/19 12:00 97.9 97 18 116/62 (80) 96 Height (Feet): 5 Height (Inches): 5.00 Weight (Pounds): 202 Respiratory/Chest: lungs clear Cardiovascular: normal rate, regular rhythm, no gallop/murmur Abdomen: soft, non tender Extremities: other - left knee wound clean Current Medications Medications (Trade) Dose Ordered Sig/Pineda Route PRN Reason Start Time Stop Time Status Last Admin Dose Admin Acetaminophen (Tylenol) 650 mg Q4H PRN ORAL Mild Pain/fever 07/28/19 13:30 08/27/19 13:29 Al Hydroxide/Mg Hydroxide (Mylanta) 30 ml Q4HR PRN ORAL To Patient Comfort 07/28/19 13:30 08/27/19 13:29 Dextrose (Dextrose 50%) 25 ml Q30M PRN IV Hypoglycemia 07/29/19 15:30 10/27/19 15:29 Dextrose (Dextrose 50%) 50 ml Q30M PRN IV Hypoglycemia 07/29/19 15:30 10/27/19 15:29 Diphenhydramine HCl (Benadryl) 50 mg Q4HR PRN IVP Itching 07/28/19 17:00 08/27/19 16:59 08/03/19 09:07 Guaifenesin (Robitussin) 200 mg Q4H PRN ORAL For Cough 07/30/19 23:00 10/28/19 22:59 08/01/19 00:33 Heparin Sodium (Porcine) (Heparin 5000 units/ml) 5,000 units EVERY 12 HOURS SUBQ 07/28/19 21:00 09/11/19 20:59 07/31/19 10:22 Hydromorphone HCl (Dilaudid) 1 mg Q3HR PRN IVP Moderate Pain (Pain Scale 4-6) 07/28/19 13:30 08/04/19 13:29 08/02/19 05:59 Hydromorphone HCl (Dilaudid) 2 mg Q3H PRN IVP Severe Pain (Pain Scale 7-10) 07/28/19 13:30 08/04/19 13:29 08/03/19 09:07 Insulin Aspart (NovoLOG) BEFORE MEALS AND HS SUBQ 07/29/19 16:30 10/27/19 16:29 Linezolid 300 ml @ 300 mls/hr Q12HR IVPB 07/30/19 13:00 08/06/19 12:59 08/03/19 09:06 Lorazepam (Ativan) 1 mg Q4H PRN ORAL For Anxiety 08/03/19 03:00 08/10/19 02:59 Pantoprazole (Protonix) 40 mg DAILY ORAL 07/29/19 09:00 08/28/19 08:59 08/03/19 09:05 Deng Reyes MD Aug 03, 2019 11:23"
[2019-08-03 12:00] VITALS: BP 93/65
--- NOTE | 2019-08-03 13:00 | NUR ---
*-* CASE MANAGEMENT NOTES *-* PATIENT IS ON SERVICE WITH: [facility] P: Work
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
[2019-08-03 16:00] VITALS: BP 112/62
--- NOTE | 2019-08-03 20:13 | NUR ---
HAND-OFF: Report given to ANISA Silverio (Rita).
[2019-08-03 20:23] VITALS: BP 124/74
--- NOTE | 2019-08-03 20:29 | NUR ---
NURSE NOTES: Received patient in bed, awake, alert, oriented, gets confused at times, patient is known to be non compliant, few IV have been started, and got pulled out, contacted MD to switch from IV to PO meds, patient is able to swallow. Call light is within reach, bed is lowered, locked alarm is on, will continue to monitor for comfort and safety.
[2019-08-04] VITALS: BP 124/78
[2019-08-04 04:00] VITALS: BP 118/74
[2019-08-04] MEDS: NovoLOG Insulin Flexpen SUBQ SCH ×4 (06:05→21:00)
[2019-08-04] MEDS: DiphenhydrAMINE 50mg/ml Inj IVP PRN ×2 (06:27→06:28)
--- NOTE | 2019-08-04 07:19 | NUR ---
NURSE NOTES: Received report from ANISA Rawls (Rita). Patient drowsy. On room air, no signs of distress. IV intact, patent, and saline locked. Colostomy bag dry and intact with red stoma. Bed in lowest position with side rails up x3 and call light in reach. Will continue with plan of care.
[2019-08-04 08:00] VITALS: BP 129/83
[2019-08-04] MEDS: Heparin 5000 units/ml inj SUBQ SCH ×2 (09:00→21:00)
--- NOTE | 2019-08-04 09:00 | NUR ---
NURSE NOTES: IV access compromised. Will attempt to reestablish.
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
[2019-08-04 12:00] VITALS: BP 114/81
--- NOTE | 2019-08-04 14:00 | NUR ---
NURSE NOTES: Patient stated that colostomy bag needed to be changed. RN brought supplies ready to change colostomy and patient then declined stating "we can do it later, just bring me tape to tape it for now." RN explained that applying tape was not best practice but patient insisted. RN brought tape and patient then stated "I'll put the tape on later." Will attempt to change colostomy bag later in shift.
[2019-08-04 16:00] VITALS: BP 103/58
--- NOTE | 2019-08-04 17:00 | NUR ---
NURSE NOTES: IV access established. Right forearm, 24 gauge.
--- NOTE | 2019-08-04 17:17 | Pulmonology Progress Note ---
Assessment/Plan Assessment/Plan IMPRESSION: Concern for joint infection, concern for osteomyelitis, asthma, shortness of breath clinically stable, leukocytosis, possible sepsis with now positive blood cultures for Staphylococcus aureus, paraplegia, diabetes poorly controlled, noncompliance, severe pain. tachycardia PLAN care noted cardiology to assist ECG noted ativan PRN antibiotics as per ID surgical follow up - Dr. Cristobal respiratory as is oxygen prn monitor imaging incentive spirometry repeat labs remains ill reviewed care with other consultants impression, plan, and exam edited and reviewed in detail care discussed with RN Subjective ROS Limited/Unobtainable: No Constitutional: Denies: fever, chills Gastrointestinal/Abdominal: Denies: nausea, vomiting, diarrhea Musculoskeletal: Reports: pain Allergies: Coded Allergies: CEFTRIAXONE (Verified Allergy, Intermediate, SOB, HR-140bpm, face swollen , pt became red, 10/24/15) CODEINE (Verified Allergy, Intermediate, SWELLING, 01/03/11) LATEX (Verified Allergy, Intermediate, SWELLING, 01/03/11) PIPERACILLIN (Verified Allergy, Intermediate, Itching, 08/29/15) 08/29/15 tolerates Ceftaroline TAZOBACTAM (Verified Allergy, Intermediate, Itching, 01/29/15) POLYMYXIN B (Verified Allergy, Mild, Rash, 04/08/16) Suspected allergy reported by VANCOMYCIN (Verified Allergy, Mild, 07/15/14) ASPARAGINASE (Verified Allergy, Unknown, 01/28/14) CEFUROXIME (Unverified Allergy, Unknown, 04/19/16) IRON (Verified Allergy, Unknown, 01/28/14) LATEX, NATURAL RUBBER (Unverified Allergy, Unknown, 06/18/16) All Systems: reviewed and negative except above Subjective reviewed care has pain and very weak tachycardic and anxious bcx + poor IV access Objective Last 24 Hour Vital Signs Date Time Temp Pulse Resp B/P (MAP) Pulse Ox O2 Delivery O2 Flow Rate FiO2 08/04/19 12:00 98.6 118 20 114/81 (92) 97 08/04/19 09:00 Room Air 08/04/19 08:00 98.4 119 20 129/83 (98) 97 08/04/19 07:19 98.7 08/04/19 04:00 98.7 115 20 118/74 (89) 94 08/04/19 00:00 98.7 115 22 124/78 (93) 98 08/03/19 21:33 Room Air 08/03/19 20:23 98.7 115 22 124/74 (91) 97 Intake and Output 08/03/19 08/04/19 19:00 07:00 # Voids 1 Objective GENERAL: An ill-appearing female. HEENT: Negative. Extraocular movements are grossly intact. NECK: Supple. LUNGS: Moderate breath sounds. No rhonchi or wheezes. CARDIAC: S1, S2. Regular rhythm without murmurs, rubs, or gallops. tachy ABDOMEN: Soft, nontender, nondistended. EXTREMITIES: No cyanosis or clubbing. Drainage noted. Dressings noted. The patient is paraplegic. General Appearance: no acute distress HEENT: mucous membranes moist Abdomen: soft, non tender Extremities: other - left knee wound clean Skin: ulcers, other 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: alert, oriented x 3, responsive, other - paraplegia Microbiology Date/Time Source Procedure Growth Status 08/02/19 17:35 Blood Blood Culture - Preliminary Staphylococcus Aureus Resulted 08/02/19 17:25 Blood Blood Culture - Preliminary NO GROWTH AFTER 24 HOURS Resulted Current Medications Medications (Trade) Dose Ordered Sig/Pineda Route PRN Reason Start Time Stop Time Status Last Admin Dose Admin Acetaminophen (Tylenol) 650 mg Q4H PRN ORAL Mild Pain/fever 07/28/19 13:30 08/27/19 13:29 Al Hydroxide/Mg Hydroxide (Mylanta) 30 ml Q4HR PRN ORAL To Patient Comfort 07/28/19 13:30 08/27/19 13:29 Dextrose (Dextrose 50%) 25 ml Q30M PRN IV Hypoglycemia 07/29/19 15:30 10/27/19 15:29 Dextrose (Dextrose 50%) 50 ml Q30M PRN IV Hypoglycemia 07/29/19 15:30 10/27/19 15:29 Diphenhydramine HCl (Benadryl) 50 mg Q4HR PRN IVP Itching 07/28/19 17:00 08/27/19 16:59 08/04/19 06:28 Guaifenesin (Robitussin) 200 mg Q4H PRN ORAL For Cough 07/30/19 23:00 10/28/19 22:59 08/01/19 00:33 Heparin Sodium (Porcine) (Heparin 5000 units/ml) 5,000 units EVERY 12 HOURS SUBQ 07/28/19 21:00 09/11/19 20:59 07/31/19 10:22 Insulin Aspart (NovoLOG) BEFORE MEALS AND HS SUBQ 07/29/19 16:30 10/27/19 16:29 Linezolid (Zyvox) 600 mg Q12HR ORAL 08/04/19 15:00 08/09/19 14:59 08/04/19 15:39 Lorazepam (Ativan) 1 mg Q4H PRN ORAL For Anxiety 08/03/19 03:00 08/10/19 02:59 Pantoprazole (Protonix) 40 mg DAILY ORAL 07/29/19 09:00 08/28/19 08:59 08/03/19 09:05 Thanh Glover MD Aug 04, 2019 17:17
--- NOTE | 2019-08-04 17:30 | NUR ---
NURSE NOTES: Patient still refusing colostomy bag change. RN will endorse to the next shift.
--- NOTE | 2019-08-04 18:05 | NUR ---
NURSE NOTES: IV access compromised. Patient claims she did not compromise IV access. IV access unable to be reestablished at this time. Charge nurse aware.
--- NOTE | 2019-08-04 18:55 | NUR ---
NURSE NOTES: Notified primary MD of no IV access.
--- NOTE | 2019-08-04 18:56 | NUR ---
NURSE NOTES: Notified Dr. Reyes of pharmacy switching Zyvox from IV to PO.
--- NOTE | 2019-08-04 19:41 | NUR ---
HAND-OFF: Report given to ANISA Vazquez.
[2019-08-04 20:00] VITALS: BP 112/60
--- NOTE | 2019-08-04 20:27 | NUR ---
NURSE NOTES: RECEIVED PATIENT FROM ANISA GARDUNO. PATIENT IS AWAKE, AAOX4, ON ROOM AIR, C/O 10/10 BACK PAIN. NO IV ACCESS, DR. MICHEL AWARE. WILL ATTEMPT TO INSERT NEW IV AND FOLLOW UP WITH PRN PAIN MEDS. COLOSTOMY BAG PRESENT, DRAINING WELL. P[address] WOUND DRESSINGS INTACT AND DRY. BED IS LOCKED AND LOW, BED ALARMS NOTED, SIDE RAILS UPX2 AND CALL LIGHT IS WITHIN REACH. WILL CONTINUE TO MONITOR.
--- NOTE | 2019-08-04 22:30 | NUR ---
NURSE NOTES: MULTIPLE UNSUCCESSFUL ATTEMPTS TO REINSERT NEW IV ACCESS. AWARE.
[2019-08-05] VITALS: BP 117/101
[2019-08-05 04:00] VITALS: BP 105/60
[2019-08-05] MEDS: NovoLOG Insulin Flexpen SUBQ SCH ×4 (06:30→21:00)
--- NOTE | 2019-08-05 07:54 | NUR ---
HAND-OFF: Report given to ANISA Garber. Endorsed plan of care.
--- NOTE | 2019-08-05 07:55 | NUR ---
NURSE NOTES: PERFORMED WOUND CARE. PICTURES TAKEN AND UPLOADED.
--- NOTE | 2019-08-05 07:56 | NUR ---
NURSE NOTES: Patient sleepy; on room air, no sign of distress and shortness of breath; no sign of chest pain; NO IV access, per report from PM nurse, Taylor, MD Glover aware; Colostomy bag in place at Left Lower Quadrant; wound dressings dry and intact; patient's own wheelchair at the bed side; side rails up x2, breaks engaged, bed at lowest position, bed alarm on; call light within reach; will carry out the plan of care as ordered;
[2019-08-05 08:00] VITALS: BP 103/63
[2019-08-05] MEDS: Heparin 5000 units/ml inj SUBQ SCH ×2 (09:00→21:00)
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
--- NOTE | 2019-08-05 10:20 | Pulmonology Progress Note ---
Assessment/Plan Assessment/Plan IMPRESSION: Concern for joint infection, concern for osteomyelitis, asthma, shortness of breath clinically stable, leukocytosis, possible sepsis with now positive blood cultures for Staphylococcus aureus, paraplegia, diabetes poorly controlled, noncompliance, severe pain. tachycardia PLAN care noted cardiology to assist ECHO pending ativan PRN antibiotics as per ID surgical follow up - Dr. Cristobal; medical management for now respiratory as is oxygen prn monitor imaging for clearing incentive spirometry repeat labs remains ill on PO linezolid reviewed care with other consultants impression, plan, and exam edited and reviewed in detail care discussed with RN Subjective ROS Limited/Unobtainable: No Constitutional: Denies: fever, chills Gastrointestinal/Abdominal: Denies: nausea, vomiting, diarrhea Musculoskeletal: Reports: pain Allergies: Coded Allergies: CEFTRIAXONE (Verified Allergy, Intermediate, SOB, HR-140bpm, face swollen , pt became red, 10/24/15) CODEINE (Verified Allergy, Intermediate, SWELLING, 01/03/11) LATEX (Verified Allergy, Intermediate, SWELLING, 01/03/11) PIPERACILLIN (Verified Allergy, Intermediate, Itching, 08/29/15) 08/29/15 tolerates Ceftaroline TAZOBACTAM (Verified Allergy, Intermediate, Itching, 01/29/15) POLYMYXIN B (Verified Allergy, Mild, Rash, 04/08/16) Suspected allergy reported by VANCOMYCIN (Verified Allergy, Mild, 07/15/14) ASPARAGINASE (Verified Allergy, Unknown, 01/28/14) CEFUROXIME (Unverified Allergy, Unknown, 04/19/16) IRON (Verified Allergy, Unknown, 01/28/14) LATEX, NATURAL RUBBER (Unverified Allergy, Unknown, 06/18/16) All Systems: reviewed and negative except above Subjective reviewed care has pain and very weak still anxious bcx + poor IV access Objective Last 24 Hour Vital Signs Date Time Temp Pulse Resp B/P (MAP) Pulse Ox O2 Delivery O2 Flow Rate FiO2 08/05/19 09:00 Room Air 08/05/19 08:00 98.0 82 17 103/63 (76) 98 08/05/19 04:00 94.5 104 20 105/60 (75) 96 08/05/19 00:00 100.0 110 24 117/101 (106) 96 08/04/19 21:00 Room Air 4/25/20 20:00 97.9 107 20 112/60 (77) 97 08/04/19 16:00 98.1 110 18 103/58 (73) 96 08/04/19 12:00 98.6 118 20 114/81 (92) 97 Intake and Output 08/04/19 08/05/19 19:00 07:00 Intake Total 480 ml 360 ml Balance 480 ml 360 ml Intake Oral 480 ml Other 360 ml # Voids 2 Objective GENERAL: An ill-appearing female. HEENT: Negative. Extraocular movements are grossly intact. NECK: Supple. LUNGS: Moderate breath sounds. No rhonchi or wheezes. CARDIAC: S1, S2. Regular rhythm without murmurs, rubs, or gallops. tachy ABDOMEN: Soft, nontender, nondistended. EXTREMITIES: No cyanosis or clubbing. Drainage noted. Dressings noted. The patient is paraplegic. General Appearance: no acute distress HEENT: mucous membranes moist Abdomen: soft, non tender Extremities: other - left knee wound clean Skin: ulcers, other 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: alert, oriented x 3, responsive, other - paraplegia Microbiology Date/Time Source Procedure Growth Status 08/02/19 17:35 Blood Blood Culture - Final Staphylococcus Aureus - Mrsa Complete 08/02/19 17:25 Blood Blood Culture - Preliminary NO GROWTH AFTER 48 HOURS Resulted Current Medications Medications (Trade) Dose Ordered Sig/Pineda Route PRN Reason Start Time Stop Time Status Last Admin Dose Admin Acetaminophen (Tylenol) 650 mg Q4H PRN ORAL Mild Pain/fever 07/28/19 13:30 08/27/19 13:29 Al Hydroxide/Mg Hydroxide (Mylanta) 30 ml Q4HR PRN ORAL To Patient Comfort 07/28/19 13:30 08/27/19 13:29 Dextrose (Dextrose 50%) 25 ml Q30M PRN IV Hypoglycemia 07/29/19 15:30 10/27/19 15:29 Dextrose (Dextrose 50%) 50 ml Q30M PRN IV Hypoglycemia 07/29/19 15:30 10/27/19 15:29 Diphenhydramine HCl (Benadryl) 50 mg Q4HR PRN IVP Itching 07/28/19 17:00 08/27/19 16:59 08/04/19 06:28 Guaifenesin (Robitussin) 200 mg Q4H PRN ORAL For Cough 07/30/19 23:00 10/28/19 22:59 08/01/19 00:33 Heparin Sodium (Porcine) (Heparin 5000 units/ml) 5,000 units EVERY 12 HOURS SUBQ 07/28/19 21:00 09/11/19 20:59 07/31/19 10:22 Insulin Aspart (NovoLOG) BEFORE MEALS AND HS SUBQ 07/29/19 16:30 10/27/19 16:29 Linezolid (Zyvox) 600 mg Q12HR ORAL 08/04/19 15:00 08/09/19 14:59 08/05/19 09:02 Lorazepam (Ativan) 1 mg Q4H PRN ORAL For Anxiety 08/03/19 03:00 08/10/19 02:59 Pantoprazole (Protonix) 40 mg DAILY ORAL 07/29/19 09:00 08/28/19 08:59 08/05/19 09:02 Thanh Glover MD Aug 05, 2019 10:20
--- NOTE | 2019-08-05 11:35 | NUR ---
NURSE NOTES: Patient is asking to get Dilaudid 2 mg for sever pain; I communicated MD Glover regarding patient's request; waiting for order.
[2019-08-05 12:00] VITALS: BP 128/60
--- NOTE | 2019-08-05 13:20 | Infectious Diseases Prog Note ---
"Assessment/Plan Assessment/Plan A 1. MRSA sepsis 2. left knee possible septic arthritis | osteomyelitis 3. paraplegia 4. leucocytosis 5. renal failure improving 6. Hyponatremia 7. Persistent bacteremia P 1. continue linezolid 2. 2 d echo pending 3. will follow up cultures 4. plan per surgery Subjective ROS Limited/Unobtainable: Yes Constitutional: Reports: fever, other - [id number] Allergies: Coded Allergies: CEFTRIAXONE (Verified Allergy, Intermediate, SOB, HR-140bpm, face swollen , pt became red, 10/24/15) CODEINE (Verified Allergy, Intermediate, SWELLING, 01/03/11) LATEX (Verified Allergy, Intermediate, SWELLING, 01/03/11) PIPERACILLIN (Verified Allergy, Intermediate, Itching, 08/29/15) 08/29/15 tolerates Ceftaroline TAZOBACTAM (Verified Allergy, Intermediate, Itching, 01/29/15) POLYMYXIN B (Verified Allergy, Mild, Rash, 04/08/16) Suspected allergy reported by MD VANCOMYCIN (Verified Allergy, Mild, 07/15/14) ASPARAGINASE (Verified Allergy, Unknown, 01/28/14) CEFUROXIME (Unverified Allergy, Unknown, 04/19/16) IRON (Verified Allergy, Unknown, 01/28/14) LATEX, NATURAL RUBBER (Unverified Allergy, Unknown, 06/18/16) Objective Vital Signs Last 24 Hour Vital Signs Date Time Temp Pulse Resp B/P (MAP) Pulse Ox O2 Delivery O2 Flow Rate FiO2 08/05/19 12:26 97.5 08/05/19 12:00 97.5 87 18 128/60 (82) 97 08/05/19 09:00 Room Air 08/05/19 08:00 98.0 82 17 103/63 (76) 98 08/05/19 04:00 94.5 104 20 105/60 (75) 96 08/05/19 00:00 100.0 110 24 117/101 (106) 96 08/04/19 21:00 Room Air 08/04/19 20:00 97.9 107 20 112/60 (77) 97 08/04/19 16:00 98.1 110 18 103/58 (73) 96 Height (Feet): 5 Height (Inches): 5.00 Weight (Pounds): 202 General Appearance: no acute distress, other - obese Respiratory/Chest: lungs clear Cardiovascular: normal rate Abdomen: soft, non tender Extremities: no edema 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: other - sleeping Microbiology Date/Time Source Procedure Growth Status 08/02/19 17:35 Blood Blood Culture - Final Staphylococcus Aureus - Mrsa Complete 08/02/19 17:25 Blood Blood Culture - Preliminary NO GROWTH AFTER 48 HOURS Resulted Current Medications Medications (Trade) Dose Ordered Sig/Pineda Route PRN Reason Start Time Stop Time Status Last Admin Dose Admin Acetaminophen (Tylenol) 650 mg Q4H PRN ORAL Mild Pain/fever 07/28/19 13:30 08/27/19 13:29 Al Hydroxide/Mg Hydroxide (Mylanta) 30 ml Q4HR PRN ORAL To Patient Comfort 07/28/19 13:30 08/27/19 13:29 Dextrose (Dextrose 50%) 25 ml Q30M PRN IV Hypoglycemia 07/29/19 15:30 10/27/19 15:29 Dextrose (Dextrose 50%) 50 ml Q30M PRN IV Hypoglycemia 07/29/19 15:30 10/27/19 15:29 Diphenhydramine HCl (Benadryl) 50 mg Q4HR PRN IVP Itching 07/28/19 17:00 08/27/19 16:59 08/04/19 06:28 Guaifenesin (Robitussin) 200 mg Q4H PRN ORAL For Cough 07/30/19 23:00 10/28/19 22:59 08/01/19 00:33 Heparin Sodium (Porcine) (Heparin 5000 units/ml) 5,000 units EVERY 12 HOURS SUBQ 07/28/19 21:00 09/11/19 20:59 07/31/19 10:22 Hydromorphone HCl (Dilaudid) 2 mg Q3H PRN IVP Severe Pain (Pain Scale 7-10) 08/05/19 11:45 08/12/19 11:44 08/05/19 11:56 Insulin Aspart (NovoLOG) BEFORE MEALS AND HS SUBQ 07/29/19 16:30 10/27/19 16:29 Linezolid (Zyvox) 600 mg Q12HR ORAL 08/04/19 15:00 08/09/19 14:59 08/05/19 09:02 Lorazepam (Ativan) 1 mg Q4H PRN ORAL For Anxiety 08/03/19 03:00 08/10/19 02:59 Pantoprazole (Protonix) 40 mg DAILY ORAL 07/29/19 09:00 08/28/19 08:59 08/05/19 09:02 Vaughn Juárez MD Aug 05, 2019 13:20"
[2019-08-05 16:00] VITALS: BP 109/70
[2019-08-05] MEDS: DiphenhydrAMINE 50mg/ml Inj IVP PRN (18:36)
--- NOTE | 2019-08-05 19:21 | NUR ---
HAND-OFF: Report given to ANISA Davila.
--- NOTE | 2019-08-05 19:25 | NUR ---
NURSE NOTES: RECEIVED PATIENT FROM ANISA VELAZCO. PATIENT IS ASLEEP, ON ROOM AIR, NO ACUTE DISTRESS NOTED. COLOSTOMY BAG PRESENT, DRAINING WELL. P200 [address]. WOUND DRESSINGS INTACT AND DRY. IV IS INTACT AND PATENT. BED IS LOCKED AND LOW, BED ALARMS NOTED, SIDE RAILS UPX2 AND CALL LIGHT IS WITHIN REACH. WILL CONTINUE TO MONITOR.
[2019-08-05 20:00] VITALS: BP 105/61
[2019-08-06] VITALS: BP 108/66
[2019-08-06 04:00] VITALS: BP 122/70
[2019-08-06] MEDS: DiphenhydrAMINE 50mg/ml Inj IVP PRN ×3 (04:42→21:26)
--- NOTE | 2019-08-06 06:00 | NUR ---
NURSE NOTES: PATIENT REFUSED HEPARIN, BLOOD SUGAR CHECK AND NOVOLOG.
[2019-08-06] MEDS: NovoLOG Insulin Flexpen SUBQ SCH ×5 (06:30→21:00)
--- NOTE | 2019-08-06 07:37 | NUR ---
NURSE NOTES: CHANGED COLOSTOMY BAG.
[2019-08-06 08:00] VITALS: BP 103/68
--- NOTE | 2019-08-06 08:00 | NUR ---
NURSE NOTES: Received report from Lola RN, pt a/a/ox4 laying in bed with no signs of distress or other issues at this time. pt is a bed victor patient with multiple wounds, per report dressing were changed last night. pt has a colostomy bag draining well. pt is incontinent for urine due to paraplegia. pt has IV on the left FA gauge #24 heplock. call light within reach, hospital bed in lowest position. side rales up x4. I will f/u as needed.
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
[2019-08-06] MEDS: Heparin 5000 units/ml inj SUBQ SCH ×2 (10:00→21:00)
--- NOTE | 2019-08-06 11:08 | Pulmonology Progress Note ---
Assessment/Plan Assessment/Plan IMPRESSION: Concern for joint infection, concern for osteomyelitis, asthma, shortness of breath clinically stable, leukocytosis, possible sepsis with now positive blood cultures for Staphylococcus aureus, paraplegia, diabetes poorly controlled, noncompliance, severe pain. tachycardia PLAN care noted pulse rate improved ativan PRN antibiotics as per ID surgical follow up - Dr. Cristobal; medical management for now respiratory as is oxygen prn monitor imaging for clearing incentive spirometry PT to see repeat labs remains ill on PO linezolid; poor IV access reviewed care with other consultants impression, plan, and exam edited and reviewed in detail care discussed with RN Subjective ROS Limited/Unobtainable: No Constitutional: Reports: fever, other - Zc=160 Gastrointestinal/Abdominal: Denies: nausea, vomiting, diarrhea Musculoskeletal: Reports: pain Allergies: Coded Allergies: CEFTRIAXONE (Verified Allergy, Intermediate, SOB, HR-140bpm, face swollen , pt became red, 10/24/15) CODEINE (Verified Allergy, Intermediate, SWELLING, 01/03/11) LATEX (Verified Allergy, Intermediate, SWELLING, 01/03/11) PIPERACILLIN (Verified Allergy, Intermediate, Itching, 08/29/15) 08/29/15 tolerates Ceftaroline TAZOBACTAM (Verified Allergy, Intermediate, Itching, 01/29/15) POLYMYXIN B (Verified Allergy, Mild, Rash, 04/08/16) Suspected allergy reported by VANCOMYCIN (Verified Allergy, Mild, 07/15/14) ASPARAGINASE (Verified Allergy, Unknown, 01/28/14) CEFUROXIME (Unverified Allergy, Unknown, 04/19/16) IRON (Verified Allergy, Unknown, 01/28/14) LATEX, NATURAL RUBBER (Unverified Allergy, Unknown, 06/18/16) All Systems: reviewed and negative except above Subjective reviewed care has pain and very weak still anxious bcx + poor IV access wants out of bed and PT Objective Last 24 Hour Vital Signs Date Time Temp Pulse Resp B/P (MAP) Pulse Ox O2 Delivery O2 Flow Rate FiO2 08/06/19 08:00 98.7 108 18 103/68 (80) 98 08/06/19 04:00 98.4 106 22 122/70 (87) 96 08/06/19 00:00 98.4 113 20 108/66 (80) 96 08/05/19 21:00 Room Air 08/05/19 20:00 99.0 111 20 105/61 (76) 96 08/05/19 18:59 97.5 08/05/19 16:00 97.5 81 17 109/70 (83) 96 08/05/19 12:00 97.5 87 18 128/60 (82) 97 Intake and Output 08/05/19 08/06/19 19:00 07:00 Intake Total 1600 ml 300 ml Balance 1600 ml 300 ml Other 1600 ml 300 ml # Voids 1 Objective GENERAL: An ill-appearing female. HEENT: Negative. Extraocular movements are grossly intact. NECK: Supple. LUNGS: Moderate breath sounds. No rhonchi or wheezes. CARDIAC: S1, S2. Regular rhythm without murmurs, rubs, or gallops. tachy ABDOMEN: Soft, nontender, nondistended. EXTREMITIES: No cyanosis or clubbing. Drainage noted. Dressings noted. The patient is paraplegic. General Appearance: no acute distress, other - obese HEENT: mucous membranes moist Abdomen: soft, non tender Extremities: no edema Skin: ulcers, other 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: other - sleeping Current Medications Medications (Trade) Dose Ordered Sig/Pineda Route PRN Reason Start Time Stop Time Status Last Admin Dose Admin Acetaminophen (Tylenol) 650 mg Q4H PRN ORAL Mild Pain/fever 07/28/19 13:30 08/27/19 13:29 Al Hydroxide/Mg Hydroxide (Mylanta) 30 ml Q4HR PRN ORAL To Patient Comfort 07/28/19 13:30 08/27/19 13:29 Dextrose (Dextrose 50%) 25 ml Q30M PRN IV Hypoglycemia 07/29/19 15:30 10/27/19 15:29 Dextrose (Dextrose 50%) 50 ml Q30M PRN IV Hypoglycemia 07/29/19 15:30 10/27/19 15:29 Diphenhydramine HCl (Benadryl) 50 mg Q4HR PRN IVP Itching 07/28/19 17:00 08/27/19 16:59 08/06/19 10:16 Guaifenesin (Robitussin) 200 mg Q4H PRN ORAL For Cough 07/30/19 23:00 10/28/19 22:59 08/01/19 00:33 Heparin Sodium (Porcine) (Heparin 5000 units/ml) 5,000 units EVERY 12 HOURS SUBQ 07/28/19 21:00 09/11/19 20:59 08/06/19 10:00 Hydromorphone HCl (Dilaudid) 2 mg Q3H PRN IVP Severe Pain (Pain Scale 7-10) 08/05/19 11:45 08/12/19 11:44 08/06/19 10:16 Insulin Aspart (NovoLOG) BEFORE MEALS AND HS SUBQ 07/29/19 16:30 10/27/19 16:29 Linezolid (Zyvox) 600 mg Q12HR ORAL 08/04/19 15:00 08/09/19 14:59 08/06/19 10:00 Lorazepam (Ativan) 1 mg Q4H PRN ORAL For Anxiety 08/03/19 03:00 08/10/19 02:59 Pantoprazole (Protonix) 40 mg DAILY ORAL 07/29/19 09:00 08/28/19 08:59 08/06/19 10:00 Thanh Glover MD Aug 06, 2019 11:08
--- NOTE | 2019-08-06 11:17 | Infectious Diseases Prog Note ---
"Assessment/Plan Assessment/Plan antibiotics : linezolid A 1. MRSA sepsis 2. left knee possible septic arthritis | osteomyelitis 3. paraplegia 4. leucocytosis 5. renal failure improving P 1. continue linezolid 37 more days 2. blood culture 3. will follow up cultures Subjective Constitutional: Denies: fever, chills Respiratory: Denies: shortness of breath, dry cough Gastrointestinal/Abdominal: Denies: nausea, vomiting, diarrhea Musculoskeletal: Reports: pain Allergies: Coded Allergies: CEFTRIAXONE (Verified Allergy, Intermediate, SOB, HR-140bpm, face swollen , pt became red, 10/24/15) CODEINE (Verified Allergy, Intermediate, SWELLING, 01/03/11) LATEX (Verified Allergy, Intermediate, SWELLING, 01/03/11) PIPERACILLIN (Verified Allergy, Intermediate, Itching, 08/29/15) 08/29/15 tolerates Ceftaroline TAZOBACTAM (Verified Allergy, Intermediate, Itching, 01/29/15) POLYMYXIN B (Verified Allergy, Mild, Rash, 04/08/16) Suspected allergy reported by VANCOMYCIN (Verified Allergy, Mild, 07/15/14) ASPARAGINASE (Verified Allergy, Unknown, 01/28/14) CEFUROXIME (Unverified Allergy, Unknown, 04/19/16) IRON (Verified Allergy, Unknown, 01/28/14) LATEX, NATURAL RUBBER (Unverified Allergy, Unknown, 06/18/16) Objective Vital Signs Last 24 Hour Vital Signs Date Time Temp Pulse Resp B/P (MAP) Pulse Ox O2 Delivery O2 Flow Rate FiO2 08/06/19 08:00 98.7 108 18 103/68 (80) 98 08/06/19 04:00 98.4 106 22 122/70 (87) 96 08/06/19 00:00 98.4 113 20 108/66 (80) 96 08/05/19 21:00 Room Air 08/05/19 20:00 99.0 111 20 105/61 (76) 96 08/05/19 18:59 97.5 08/05/19 16:00 97.5 81 17 109/70 (83) 96 08/05/19 12:00 97.5 87 18 128/60 (82) 97 Height (Feet): 5 Height (Inches): 5.00 Weight (Pounds): 202 Respiratory/Chest: lungs clear Cardiovascular: normal rate, regular rhythm, no gallop/murmur Abdomen: soft, non tender Extremities: no edema, other - left knee in dressings Current Medications Medications (Trade) Dose Ordered Sig/Pineda Route PRN Reason Start Time Stop Time Status Last Admin Dose Admin Acetaminophen (Tylenol) 650 mg Q4H PRN ORAL Mild Pain/fever 07/28/19 13:30 08/27/19 13:29 Al Hydroxide/Mg Hydroxide (Mylanta) 30 ml Q4HR PRN ORAL To Patient Comfort 07/28/19 13:30 08/27/19 13:29 Dextrose (Dextrose 50%) 25 ml Q30M PRN IV Hypoglycemia 07/29/19 15:30 10/27/19 15:29 Dextrose (Dextrose 50%) 50 ml Q30M PRN IV Hypoglycemia 07/29/19 15:30 10/27/19 15:29 Diphenhydramine HCl (Benadryl) 50 mg Q4HR PRN IVP Itching 07/28/19 17:00 08/27/19 16:59 08/06/19 10:16 Guaifenesin (Robitussin) 200 mg Q4H PRN ORAL For Cough 07/30/19 23:00 10/28/19 22:59 08/01/19 00:33 Heparin Sodium (Porcine) (Heparin 5000 units/ml) 5,000 units EVERY 12 HOURS SUBQ 07/28/19 21:00 09/11/19 20:59 08/06/19 10:00 Hydromorphone HCl (Dilaudid) 2 mg Q3H PRN IVP Severe Pain (Pain Scale 7-10) 08/05/19 11:45 08/12/19 11:44 08/06/19 10:16 Insulin Aspart (NovoLOG) BEFORE MEALS AND HS SUBQ 07/29/19 16:30 10/27/19 16:29 Linezolid (Zyvox) 600 mg Q12HR ORAL 08/04/19 15:00 08/09/19 14:59 08/06/19 10:00 Lorazepam (Ativan) 1 mg Q4H PRN ORAL For Anxiety 08/03/19 03:00 08/10/19 02:59 Pantoprazole (Protonix) 40 mg DAILY ORAL 07/29/19 09:00 08/28/19 08:59 08/06/19 10:00 Deng Reyes MD Aug 06, 2019 11:17"
[2019-08-06 12:00] VITALS: BP 112/69
[2019-08-06 16:00] VITALS: BP 108/69
--- NOTE | 2019-08-06 16:21 | NUR ---
CASE MANAGEMENT:REVIEW SI;RENAL FAILURE. MRSA SEPSIS. CELLULITIS. PERSISTENT BACTEREMIA RT HIP WOUND INFECTION/ULCER/OSTEO. 99.0 113 22 103/68 96% ON RA IS;ZYVOX PO Q12 HRS DILAUDID IV Q3 HRS PRN PROTONIX PO QD HEPARIN SUBQ Q12 HRS MED SURG STATUS DCP;PATIENT IS FROM HOME
--- NOTE | 2019-08-06 19:11 | NUR ---
HAND-OFF: Report given to Adina LANGE, pt in stable condition.
--- NOTE | 2019-08-06 19:15 | NUR ---
NURSE NOTES: Patient alert, oriented x4. No s/s distress. Bedbound, paraplegic patient with several wounds. Bed in low position, locked, side rails up x4, call light within reach. Will continue to monitor.
--- NOTE | 2019-08-06 19:15 | NUR ---
NURSE NOTES: Received report from ANISA Lopez. Rounds done. Patient alert, no distress noted.
--- NOTE | 2019-08-06 19:52 | NUR ---
NURSE NOTES: Received report from ANISA Lopez. Rounds done. Addendum: 08/06/19 at 1952 by Adina Haas RN Disregard above
[2019-08-06 20:00] VITALS: BP 109/58
--- NOTE | 2019-08-06 23:39 | NUR ---
NURSE NOTES: Patient sleeping quietly
[2019-08-07] VITALS: BP 98/58
[2019-08-07 04:00] VITALS: BP 95/52
[2019-08-07] MEDS: DiphenhydrAMINE 50mg/ml Inj IVP PRN ×3 (04:05→17:39)
[2019-08-07] MEDS: NovoLOG Insulin Flexpen SUBQ SCH ×4 (06:30→21:00)
--- NOTE | 2019-08-07 07:45 | NUR ---
HAND-OFF: Report given to ANISA Rankin.
[2019-08-07 08:00] VITALS: BP 127/69
--- NOTE | 2019-08-07 08:00 | NUR ---
NURSE NOTES: Patient awake and alert and oriented,respirations unlabored.Dressing to sacral changed by the night RN,dressing to right and left leg and thigh intact.Call light within reach.Bed alarm on.
[2019-08-07] MEDS: Heparin 5000 units/ml inj SUBQ SCH ×2 (09:00→21:00)
--- NOTE | 2019-08-07 09:10 | Pulmonology Progress Note ---
Assessment/Plan Assessment/Plan IMPRESSION: Concern for joint infection, concern for osteomyelitis, asthma, shortness of breath clinically stable, leukocytosis, possible sepsis with now positive blood cultures for Staphylococcus aureus, paraplegia, diabetes poorly controlled, noncompliance, severe pain. tachycardia PLAN care noted pulse rate improving ativan PRN antibiotics as per ID- not yet cleared surgical follow up - Dr. Cristobal; medical management for now respiratory as is oxygen prn monitor imaging for change incentive spirometry PT follow up repeat labs remains ill on PO linezolid; poor IV access reviewed care with other consultants impression, plan, and exam edited and reviewed in detail care discussed with RN Subjective ROS Limited/Unobtainable: No Constitutional: Denies: fever, chills Gastrointestinal/Abdominal: Denies: nausea, vomiting, diarrhea Musculoskeletal: Reports: pain Allergies: Coded Allergies: CEFTRIAXONE (Verified Allergy, Intermediate, SOB, HR-140bpm, face swollen , pt became red, 10/24/15) CODEINE (Verified Allergy, Intermediate, SWELLING, 01/03/11) LATEX (Verified Allergy, Intermediate, SWELLING, 01/03/11) PIPERACILLIN (Verified Allergy, Intermediate, Itching, 08/29/15) 08/29/15 tolerates Ceftaroline TAZOBACTAM (Verified Allergy, Intermediate, Itching, 01/29/15) POLYMYXIN B (Verified Allergy, Mild, Rash, 04/08/16) Suspected allergy reported by VANCOMYCIN (Verified Allergy, Mild, 07/15/14) ASPARAGINASE (Verified Allergy, Unknown, 01/28/14) CEFUROXIME (Unverified Allergy, Unknown, 04/19/16) IRON (Verified Allergy, Unknown, 01/28/14) LATEX, NATURAL RUBBER (Unverified Allergy, Unknown, 06/18/16) All Systems: reviewed and negative except above Subjective reviewed care has pain and remains weak still anxious bcx + with repeat checks poor IV access wants out of bed Objective Last 24 Hour Vital Signs Date Time Temp Pulse Resp B/P (MAP) Pulse Ox O2 Delivery O2 Flow Rate FiO2 08/07/19 04:00 98.9 102 20 95/52 (66) 99 08/07/19 00:00 99.2 106 19 98/58 (71) 99 08/06/19 21:00 Room Air 08/06/19 20:00 98.7 111 19 109/58 (75) 98 08/06/19 16:00 98.6 102 18 108/69 (82) 97 08/06/19 14:34 98.7 08/06/19 12:00 98.7 109 19 112/69 (83) 98 Intake and Output 08/06/19 08/07/19 19:00 07:00 Intake Total 440 ml Output Total 250 ml Balance 190 ml Intake Oral 440 ml Stool Total 250 ml # Voids 2 Objective GENERAL: An ill-appearing female. HEENT: Negative. Extraocular movements are grossly intact. NECK: Supple. LUNGS: Moderate breath sounds. No rhonchi or wheezes. CARDIAC: S1, S2. Regular rhythm without murmurs, rubs, or gallops. tachy ABDOMEN: Soft, nontender, nondistended. EXTREMITIES: No cyanosis or clubbing. Drainage noted. Dressings noted. The patient is paraplegic. General Appearance: no acute distress, other - obese HEENT: mucous membranes moist Abdomen: soft, non tender Extremities: no edema, other - left knee in dressings Skin: ulcers, other 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: other - sleeping Current Medications Medications (Trade) Dose Ordered Sig/Pineda Route PRN Reason Start Time Stop Time Status Last Admin Dose Admin Acetaminophen (Tylenol) 650 mg Q4H PRN ORAL Mild Pain/fever 07/28/19 13:30 08/27/19 13:29 Al Hydroxide/Mg Hydroxide (Mylanta) 30 ml Q4HR PRN ORAL To Patient Comfort 07/28/19 13:30 08/27/19 13:29 Dextrose (Dextrose 50%) 25 ml Q30M PRN IV Hypoglycemia 07/29/19 15:30 10/27/19 15:29 Dextrose (Dextrose 50%) 50 ml Q30M PRN IV Hypoglycemia 07/29/19 15:30 10/27/19 15:29 Diphenhydramine HCl (Benadryl) 50 mg Q4HR PRN IVP Itching 07/28/19 17:00 08/27/19 16:59 08/07/19 04:05 Guaifenesin (Robitussin) 200 mg Q4H PRN ORAL For Cough 07/30/19 23:00 10/28/19 22:59 08/01/19 00:33 Heparin Sodium (Porcine) (Heparin 5000 units/ml) 5,000 units EVERY 12 HOURS SUBQ 07/28/19 21:00 09/11/19 20:59 08/06/19 10:00 Hydromorphone HCl (Dilaudid) 2 mg Q3H PRN IVP Severe Pain (Pain Scale 7-10) 08/05/19 11:45 08/12/19 11:44 08/07/19 04:06 Insulin Aspart (NovoLOG) BEFORE MEALS AND HS SUBQ 07/29/19 16:30 10/27/19 16:29 Linezolid (Zyvox) 600 mg Q12HR ORAL 08/04/19 15:00 09/12/19 23:59 08/06/19 21:06 Lorazepam (Ativan) 1 mg Q4H PRN ORAL For Anxiety 08/03/19 03:00 08/10/19 02:59 Pantoprazole (Protonix) 40 mg DAILY ORAL 07/29/19 09:00 08/28/19 08:59 08/06/19 10:00 Thanh Glover MD Aug 07, 2019 09:10
--- NOTE | 2019-08-07 09:35 | NUR ---
RD ASSESSMENT & RECOMMENDATIONS SEE CARE ACTIVITY FOR COMPLETE ASSESSMENT DAILY ESTIMATED NEEDS: Needs based on Wound + paraplegia, 66 kg abw 28-30 kcals/kg 7009-7080 total kcals 1.25-2 g protein/kg 83-132 g total protein 25-30 mL/kg 9790-8811 total fluid mLs NUTRITION DIAGNOSIS: (1) Increased KCAL, protein, and micronutrient needs r/t wound healing as evidenced pt w/ multiple pressure ulcers at LLE ulcer, sacrum, right ischium, and lt knee. (2) Altered nutrition related lab values R/T diabetes as evidenced by elev BGs (329 408), elev POC glu (265-287-> now 126 140), A1C of 8.4. (CURRENT DIET: REGULAR) PO DIET RECOMMENDATIONS: CCHO MED + High Prot snacks BID ADDITIONAL RECOMMENDATIONS: * Recalibrated bedscale wt for accurate CBW-> monitor weekly wts * WOUND CARE: MVI w/ min x1+VIT C 500mg BID ZnSO4 220mg QD x 10 days Luiz 1pkt BID (QD for now per pt request- added to tray) * Monitor BGs- elevated, h/o DM, pt refusing NISS and carb controlled diet * Glucerna TID w/ poor PO (refusing many meals at this time) .
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
--- NOTE | 2019-08-07 10:52 | Infectious Diseases Prog Note ---
"Assessment/Plan Assessment/Plan antibiotics : linezolid A 1. MRSA sepsis 2. left knee possible septic arthritis | osteomyelitis 3. paraplegia 4. leucocytosis 5. renal failure improving P 1. continue linezolid 36 more days 2. will follow up cultures Subjective Constitutional: Denies: fever, chills Respiratory: Denies: shortness of breath, dry cough Gastrointestinal/Abdominal: Reports: nausea, vomiting; Denies: diarrhea Musculoskeletal: Reports: pain Allergies: Coded Allergies: CEFTRIAXONE (Verified Allergy, Intermediate, SOB, HR-140bpm, face swollen , pt became red, 10/24/15) CODEINE (Verified Allergy, Intermediate, SWELLING, 01/03/11) LATEX (Verified Allergy, Intermediate, SWELLING, 01/03/11) PIPERACILLIN (Verified Allergy, Intermediate, Itching, 08/29/15) 08/29/15 tolerates Ceftaroline TAZOBACTAM (Verified Allergy, Intermediate, Itching, 01/29/15) POLYMYXIN B (Verified Allergy, Mild, Rash, 04/08/16) Suspected allergy reported by VANCOMYCIN (Verified Allergy, Mild, 07/15/14) ASPARAGINASE (Verified Allergy, Unknown, 01/28/14) CEFUROXIME (Unverified Allergy, Unknown, 04/19/16) IRON (Verified Allergy, Unknown, 01/28/14) LATEX, NATURAL RUBBER (Unverified Allergy, Unknown, 06/18/16) Objective Vital Signs Last 24 Hour Vital Signs Date Time Temp Pulse Resp B/P (MAP) Pulse Ox O2 Delivery O2 Flow Rate FiO2 08/07/19 04:00 98.9 102 20 95/52 (66) 99 08/07/19 00:00 99.2 106 19 98/58 (71) 99 08/06/19 21:00 Room Air 08/06/19 20:00 98.7 111 19 109/58 (75) 98 08/06/19 16:00 98.6 102 18 108/69 (82) 97 08/06/19 14:34 98.7 08/06/19 12:00 98.7 109 19 112/69 (83) 98 Height (Feet): 5 Height (Inches): 5.00 Weight (Pounds): 202 Respiratory/Chest: lungs clear Cardiovascular: normal rate, regular rhythm, no gallop/murmur Abdomen: soft, non tender Extremities: no edema, other - left knee wound Current Medications Medications (Trade) Dose Ordered Sig/Pineda Route PRN Reason Start Time Stop Time Status Last Admin Dose Admin Acetaminophen (Tylenol) 650 mg Q4H PRN ORAL Mild Pain/fever 07/28/19 13:30 08/27/19 13:29 Al Hydroxide/Mg Hydroxide (Mylanta) 30 ml Q4HR PRN ORAL To Patient Comfort 07/28/19 13:30 08/27/19 13:29 Dextrose (Dextrose 50%) 25 ml Q30M PRN IV Hypoglycemia 07/29/19 15:30 10/27/19 15:29 Dextrose (Dextrose 50%) 50 ml Q30M PRN IV Hypoglycemia 07/29/19 15:30 10/27/19 15:29 Diphenhydramine HCl (Benadryl) 50 mg Q4HR PRN IVP Itching 07/28/19 17:00 08/27/19 16:59 08/07/19 10:13 Guaifenesin (Robitussin) 200 mg Q4H PRN ORAL For Cough 07/30/19 23:00 10/28/19 22:59 08/01/19 00:33 Heparin Sodium (Porcine) (Heparin 5000 units/ml) 5,000 units EVERY 12 HOURS SUBQ 07/28/19 21:00 09/11/19 20:59 08/06/19 10:00 Hydromorphone HCl (Dilaudid) 2 mg Q3H PRN IVP Severe Pain (Pain Scale 7-10) 08/05/19 11:45 08/12/19 11:44 08/07/19 10:17 Insulin Aspart (NovoLOG) BEFORE MEALS AND HS SUBQ 07/29/19 16:30 10/27/19 16:29 Linezolid (Zyvox) 600 mg Q12HR ORAL 08/04/19 15:00 09/12/19 23:59 08/06/19 21:06 Lorazepam (Ativan) 1 mg Q4H PRN ORAL For Anxiety 08/03/19 03:00 08/10/19 02:59 Ondansetron HCl (Zofran) 4 mg Q4H PRN IVP Nausea & Vomiting 08/07/19 10:15 09/06/19 10:14 Pantoprazole (Protonix) 40 mg DAILY ORAL 07/29/19 09:00 08/28/19 08:59 08/06/19 10:00 Deng Reyes MD Aug 07, 2019 10:52"
--- NOTE | 2019-08-07 11:03 | NUR ---
*-* CASE MANAGEMENT NOTES *-* PATIENT IS ON SERVICE WITH: [facility] P: Work
[2019-08-07 11:44] LABS: HEMATOCRIT 22.6 % (37.0-47.0); HEMOGLOBIN 7.2 G/DL (12.0-16.0); MEAN CORPUSCULAR VOLUME 80 FL (80-99); PLATELET COUNT 364 K/UL (150-450); RED BLOOD COUNT 2.83 M/UL (4.20-5.40); RED CELL DISTRIBUTION WIDTH 14.2 % (11.6-14.8); WHITE BLOOD COUNT 18.8 K/UL (4.8-10.8)
[2019-08-07 11:53] LABS: ANION GAP 14 mmol/L (5-15); BLOOD UREA NITROGEN 22 mg/dL (7-18); CARBON DIOXIDE 22 MMOL/L (21-32); CHLORIDE 98 MMOL/L (98-107); POTASSIUM 3.9 MMOL/L (3.5-5.1); SODIUM 134 MMOL/L (136-145)
--- NOTE | 2019-08-07 11:54 | Diagnostic Imaging Report ---
Indication: Shortness of breath Technique: One view of the chest Comparison: 08/15/2017 Findings: Lungs and pleural spaces are clear. The heart size is normal. Previously demonstrated PICC is no longer evident. Previously demonstrated basilar atelectatic changes are no longer evident Impression: Negative
[2019-08-07 12:00] VITALS: BP 105/61
--- NOTE | 2019-08-07 14:53 | NUR ---
CHARGE NURSE NOTE: H@H 7.2/22.6, WBC 18.8. notified, message left.
[2019-08-07] MEDS ORDERED: Heparin1,000 units/500ml Premix(Conc:2 units/ml) IV PRN (15:15)
[2019-08-07] MEDS ORDERED: Lidocaine 1% Plain 30 ml INJ PRN (15:15)
[2019-08-07 16:00] VITALS: BP 109/47
--- NOTE | 2019-08-07 17:34 | NUR ---
PT Note PT rubina completed; patient has paraplegia with c/o back pain, requiring assist in bed mobility; unable to transfer bed<>WC. Patient need PT services to increase UE strength and balance to improve her functional mobility. Addendum: 08/07/19 at 1735 by NIEVES RODRIGUEZ PT Amended: Links added.
--- NOTE | 2019-08-07 18:42 | NUR ---
NURSE NOTES: Patient resting,offer change dressing,patient state will have done later,patient has order for blood transfusion,patient wanted to think about earlier but agree to have blood transfusion,patient ask can blood transfusion be started later. Call light within reach.
--- NOTE | 2019-08-07 19:45 | NUR ---
HAND-OFF: Report given to Mariah LANGE.
[2019-08-07 20:00] VITALS: BP 94/58
[2019-08-07] MEDS: Dyna-Hex 2% Top Sol 2oz TOPIC SCH (20:00)
--- NOTE | 2019-08-07 20:07 | NUR ---
NURSE NOTES: Received report from ANISA Rankin. Patient A&Ox4,on room air, no labored breathing. IV 22g intact and patent. Colostomy with drainage bag in LLQ. Left knee dressing intact. Blood transfusion needs to be started but pt refused to sign the consent form and said leave me alone, let me think about it. PICC line scheduled on 08/07. Bed locked, lowest position, alarm on, side rails up, call light within reach. Will continue with plan of care.
--- NOTE | 2019-08-07 22:20 | NUR ---
NURSE NOTES: IV out noted. New IV 22G on RFA inserted. Offered blood transfusion but pt said "later". Charge nurse aware
[2019-08-08] VITALS: BP 97/59
[2019-08-08 04:00] VITALS: BP 139/61
--- NOTE | 2019-08-08 06:00 | NUR ---
NURSE NOTES: Provided incontinent care and changed wound dressing on sacral. Refused to change dressing on L leg.
[2019-08-08] MEDS: NovoLOG Insulin Flexpen SUBQ SCH ×4 (06:24→20:27)
--- NOTE | 2019-08-08 06:30 | NUR ---
NURSE NOTES: Refused blood sugar check and insulin. Education given but still refused x 3
--- NOTE | 2019-08-08 06:35 | NUR ---
NURSE NOTES: Received consent sign for blood transfusion and picc line but pt still said "blood transfusion later" Addendum: 08/08/19 at 0727 by SUJATA LAGUNAS RN RN NURSE NOTES: Left message Dr. Glover. Awaiting for call back
--- NOTE | 2019-08-08 07:30 | NUR ---
HAND-OFF: Report given to ANISA Rankin.
[2019-08-08 08:00] VITALS: BP 122/69
--- NOTE | 2019-08-08 08:25 | NUR ---
NURSE NOTES: Patient alert and oriented,respirations unlabored.patient to have Picc Line inserted today.Will follow up regarding blood Transfusion.Call light within reach.
[2019-08-08] MEDS: Heparin 5000 units/ml inj SUBQ SCH ×2 (09:00→20:27)
--- NOTE | 2019-08-08 10:31 | Infectious Diseases Prog Note ---
"Assessment/Plan Assessment/Plan antibiotics : linezolid A 1. MRSA sepsis 2. left knee possible septic arthritis | osteomyelitis 3. paraplegia 4. leucocytosis 5. renal failure improving P 1. continue linezolid 35 more days 2. will follow up cultures Subjective Constitutional: Denies: fever, chills Respiratory: Denies: shortness of breath, dry cough Gastrointestinal/Abdominal: Reports: nausea, vomiting; Denies: diarrhea Musculoskeletal: Reports: pain Allergies: Coded Allergies: CEFTRIAXONE (Verified Allergy, Intermediate, SOB, HR-140bpm, face swollen , pt became red, 10/24/15) CODEINE (Verified Allergy, Intermediate, SWELLING, 01/03/11) LATEX (Verified Allergy, Intermediate, SWELLING, 01/03/11) PIPERACILLIN (Verified Allergy, Intermediate, Itching, 08/29/15) 08/29/15 tolerates Ceftaroline TAZOBACTAM (Verified Allergy, Intermediate, Itching, 01/29/15) POLYMYXIN B (Verified Allergy, Mild, Rash, 04/08/16) Suspected allergy reported by VANCOMYCIN (Verified Allergy, Mild, 07/15/14) ASPARAGINASE (Verified Allergy, Unknown, 01/28/14) CEFUROXIME (Unverified Allergy, Unknown, 04/19/16) IRON (Verified Allergy, Unknown, 01/28/14) LATEX, NATURAL RUBBER (Unverified Allergy, Unknown, 06/18/16) Objective Vital Signs Last 24 Hour Vital Signs Date Time Temp Pulse Resp B/P (MAP) Pulse Ox O2 Delivery O2 Flow Rate FiO2 08/08/19 10:16 Room Air 08/08/19 10:07 Room Air 08/08/19 08:00 98.8 112 19 122/69 (86) 96 08/08/19 04:00 98.8 70 19 139/61 (87) 98 08/08/19 00:00 98.8 110 19 97/59 (72) 96 08/07/19 21:00 Room Air 08/07/19 20:00 98.5 106 19 94/58 (70) 96 08/07/19 16:00 98.5 90 18 109/47 (67) 94 08/07/19 12:00 98.7 100 19 105/61 (76) 94 Height (Feet): 5 Height (Inches): 5.00 Weight (Pounds): 204 Respiratory/Chest: lungs clear Cardiovascular: normal rate, regular rhythm, no gallop/murmur Abdomen: soft, non tender Extremities: no edema, other - left knee wound clean Laboratory Tests Test 08/07/19 11:00 White Blood Count 18.8 K/UL (4.8-10.8) H Red Blood Count 2.83 M/UL (4.20-5.40) L Hemoglobin 7.2 G/DL (12.0-16.0) L Hematocrit 22.6 % (37.0-47.0) L Mean Corpuscular Volume 80 FL (80-99) Mean Corpuscular Hemoglobin 25.5 PG (27.0-31.0) L Mean Corpuscular Hemoglobin Concent 31.9 G/DL (32.0-36.0) L Red Cell Distribution Width 14.2 % (11.6-14.8) Platelet Count 364 K/UL (150-450) Mean Platelet Volume 6.2 FL (6.5-10.1) L Neutrophils (%) (Auto) % (45.0-75.0) Lymphocytes (%) (Auto) % (20.0-45.0) Monocytes (%) (Auto) % (1.0-10.0) Eosinophils (%) (Auto) % (0.0-3.0) Basophils (%) (Auto) % (0.0-2.0) Differential Total Cells Counted 100 Neutrophils % (Manual) 81 % (45-75) H Lymphocytes % (Manual) 12 % (20-45) L Monocytes % (Manual) 7 % (1-10) Eosinophils % (Manual) 0 % (0-3) Basophils % (Manual) 0 % (0-2) Band Neutrophils 0 % (0-8) Platelet Estimate Adequate Platelet Morphology Normal Hypochromasia 3+ Anisocytosis 1+ Sodium Level 134 MMOL/L (136-145) L Potassium Level 3.9 MMOL/L (3.5-5.1) Chloride Level 98 MMOL/L (98-107) Carbon Dioxide Level 22 MMOL/L (21-32) Anion Gap 14 mmol/L (5-15) Blood Urea Nitrogen 22 mg/dL (7-18) H Creatinine 1.0 MG/DL (0.55-1.30) Estimat Glomerular Filtration Rate > 60 mL/min (>60) Glucose Level 182 MG/DL (74-106) H Calcium Level 9.0 MG/DL (8.5-10.1) Current Medications Medications (Trade) Dose Ordered Sig/Pineda Route PRN Reason Start Time Stop Time Status Last Admin Dose Admin Acetaminophen (Tylenol) 650 mg Q4H PRN ORAL Mild Pain/fever 07/28/19 13:30 08/27/19 13:29 Al Hydroxide/Mg Hydroxide (Mylanta) 30 ml Q4HR PRN ORAL To Patient Comfort 07/28/19 13:30 08/27/19 13:29 Chlorhexidine Gluconate (Nereida-Hex 2%) 1 applic DAILY@1999 TOPIC 08/07/19 20:00 11/05/19 19:59 Dextrose (Dextrose 50%) 25 ml Q30M PRN IV Hypoglycemia 07/29/19 15:30 10/27/19 15:29 Dextrose (Dextrose 50%) 50 ml Q30M PRN IV Hypoglycemia 07/29/19 15:30 10/27/19 15:29 Diphenhydramine HCl (Benadryl) 50 mg Q4HR PRN IVP Itching 07/28/19 17:00 08/27/19 16:59 08/07/19 17:39 Guaifenesin (Robitussin) 200 mg Q4H PRN ORAL For Cough 07/30/19 23:00 10/28/19 22:59 08/01/19 00:33 Heparin Sodium (Porcine) (Heparin 5000 units/ml) 5,000 units EVERY 12 HOURS SUBQ 07/28/19 21:00 09/11/19 20:59 08/06/19 10:00 Hydromorphone HCl (Dilaudid) 2 mg Q3H PRN IVP Severe Pain (Pain Scale 7-10) 08/05/19 11:45 08/12/19 11:44 08/08/19 06:19 Insulin Aspart (NovoLOG) BEFORE MEALS AND HS SUBQ 07/29/19 16:30 10/27/19 16:29 Linezolid (Zyvox) 600 mg Q12HR ORAL 08/04/19 15:00 09/12/19 23:59 08/07/19 21:18 Lorazepam (Ativan) 1 mg Q4H PRN ORAL For Anxiety 08/03/19 03:00 5/1/20 02:59 Ondansetron HCl (Zofran) 4 mg Q4H PRN IVP Nausea & Vomiting 08/07/19 10:15 09/06/19 10:14 08/07/19 11:13 Pantoprazole (Protonix) 40 mg DAILY ORAL 07/29/19 09:00 08/28/19 08:59 08/06/19 10:00 Deng Reyes MD Aug 08, 2019 10:31"
--- NOTE | 2019-08-08 10:39 | Pulmonology Progress Note ---
Assessment/Plan Assessment/Plan IMPRESSION: Concern for joint infection, concern for osteomyelitis, asthma, shortness of breath clinically stable, leukocytosis, possible sepsis with now positive blood cultures for Staphylococcus aureus, paraplegia, diabetes poorly controlled, noncompliance, severe pain. tachycardia PLAN care noted pulse rate improving ativan PRN antibiotics as per ID- not yet cleared surgical follow up - Dr. Cristobal; medical management for now respiratory as is transfusion incentive spirometry PT follow up repeat labs remains ill on PO linezolid; poor IV access reviewed care with other consultants impression, plan, and exam edited and reviewed in detail care discussed with RN Subjective ROS Limited/Unobtainable: No Constitutional: Denies: fever, chills Gastrointestinal/Abdominal: Reports: nausea, vomiting; Denies: diarrhea Musculoskeletal: Reports: pain Allergies: Coded Allergies: CEFTRIAXONE (Verified Allergy, Intermediate, SOB, HR-140bpm, face swollen , pt became red, 10/24/15) CODEINE (Verified Allergy, Intermediate, SWELLING, 01/03/11) LATEX (Verified Allergy, Intermediate, SWELLING, 01/03/11) PIPERACILLIN (Verified Allergy, Intermediate, Itching, 08/29/15) 08/29/15 tolerates Ceftaroline TAZOBACTAM (Verified Allergy, Intermediate, Itching, 01/29/15) POLYMYXIN B (Verified Allergy, Mild, Rash, 04/08/16) Suspected allergy reported by VANCOMYCIN (Verified Allergy, Mild, 07/15/14) ASPARAGINASE (Verified Allergy, Unknown, 01/28/14) CEFUROXIME (Unverified Allergy, Unknown, 04/19/16) IRON (Verified Allergy, Unknown, 01/28/14) LATEX, NATURAL RUBBER (Unverified Allergy, Unknown, 06/18/16) All Systems: reviewed and negative except above Subjective reviewed care has pain and remains weak still anxious and tired bcx + with repeat checks poor IV access transfusion delayed Objective Last 24 Hour Vital Signs Date Time Temp Pulse Resp B/P (MAP) Pulse Ox O2 Delivery O2 Flow Rate FiO2 08/08/19 10:16 Room Air 08/08/19 10:07 Room Air 08/08/19 08:00 98.8 112 19 122/69 (86) 96 08/08/19 04:00 98.8 70 19 139/61 (87) 98 4/29/20 00:00 98.8 110 19 97/59 (72) 96 08/07/19 21:00 Room Air 08/07/19 20:00 98.5 106 19 94/58 (70) 96 08/07/19 16:00 98.5 90 18 109/47 (67) 94 08/07/19 12:00 98.7 100 19 105/61 (76) 94 Intake and Output 08/07/19 08/08/19 19:00 07:00 Output Total 350 ml Balance -350 ml Stool Total 350 ml # Voids 2 Objective GENERAL: An ill-appearing female. HEENT: Negative. Extraocular movements are grossly intact. NECK: Supple. LUNGS: Moderate breath sounds. No rhonchi or wheezes. CARDIAC: S1, S2. Regular rhythm without murmurs, rubs, or gallops. tachy ABDOMEN: Soft, nontender, nondistended. EXTREMITIES: No cyanosis or clubbing. Drainage noted. Dressings noted. The patient is paraplegic. General Appearance: no acute distress, other - obese HEENT: mucous membranes moist Abdomen: soft, non tender Extremities: no edema, other - left knee wound clean Skin: ulcers, other 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: other - sleeping Laboratory Tests 08/07/19 11:00: White Blood Count 18.8H, Red Blood Count 2.83L, Hemoglobin 7.2L, Hematocrit 22.6L, Mean Corpuscular Volume 80, Mean Corpuscular Hemoglobin 25.5L, Mean Corpuscular Hemoglobin Concent 31.9L, Red Cell Distribution Width 14.2, Platelet Count 364, Mean Platelet Volume 6.2L, Neutrophils (%) (Auto) , Lymphocytes (%) (Auto) , Monocytes (%) (Auto) , Eosinophils (%) (Auto) , Basophils (%) (Auto) , Differential Total Cells Counted 100, Neutrophils % ( Manual) 81H, Lymphocytes % (Manual) 12L, Monocytes % (Manual) 7, Eosinophils % ( Manual) 0, Basophils % (Manual) 0, Band Neutrophils 0, Platelet Estimate Adequate, Platelet Morphology Normal, Hypochromasia 3+, Anisocytosis 1+, Sodium Level 134L, Potassium Level 3.9, Chloride Level 98, Carbon Dioxide Level 22, Anion Gap 14, Blood Urea Nitrogen 22H, Creatinine 1.0, Estimat Glomerular Filtration Rate > 60, Glucose Level 182H, Calcium Level 9.0 Current Medications Medications (Trade) Dose Ordered Sig/Pineda Route PRN Reason Start Time Stop Time Status Last Admin Dose Admin Acetaminophen (Tylenol) 650 mg Q4H PRN ORAL Mild Pain/fever 07/28/19 13:30 08/27/19 13:29 Al Hydroxide/Mg Hydroxide (Mylanta) 30 ml Q4HR PRN ORAL To Patient Comfort 07/28/19 13:30 08/27/19 13:29 Chlorhexidine Gluconate (Nereida-Hex 2%) 1 applic DAILY@2000 TOPIC 08/07/19 20:00 11/05/19 19:59 Dextrose (Dextrose 50%) 25 ml Q30M PRN IV Hypoglycemia 07/29/19 15:30 10/27/19 15:29 Dextrose (Dextrose 50%) 50 ml Q30M PRN IV Hypoglycemia 07/29/19 15:30 10/27/19 15:29 Diphenhydramine HCl (Benadryl) 50 mg Q4HR PRN IVP Itching 07/28/19 17:00 08/27/19 16:59 08/07/19 17:39 Guaifenesin (Robitussin) 200 mg Q4H PRN ORAL For Cough 07/30/19 23:00 10/28/19 22:59 08/01/19 00:33 Heparin Sodium (Porcine) (Heparin 5000 units/ml) 5,000 units EVERY 12 HOURS SUBQ 07/28/19 21:00 09/11/19 20:59 08/06/19 10:00 Hydromorphone HCl (Dilaudid) 2 mg Q3H PRN IVP Severe Pain (Pain Scale 7-10) 08/05/19 11:45 08/12/19 11:44 08/08/19 06:19 Insulin Aspart (NovoLOG) BEFORE MEALS AND HS SUBQ 07/29/19 16:30 10/27/19 16:29 Linezolid (Zyvox) 600 mg Q12HR ORAL 08/04/19 15:00 09/12/19 23:59 08/07/19 21:18 Lorazepam (Ativan) 1 mg Q4H PRN ORAL For Anxiety 08/03/19 03:00 08/10/19 02:59 Ondansetron HCl (Zofran) 4 mg Q4H PRN IVP Nausea & Vomiting 08/07/19 10:15 09/06/19 10:14 08/07/19 11:13 Pantoprazole (Protonix) 40 mg DAILY ORAL 07/29/19 09:00 08/28/19 08:59 08/06/19 10:00 Thanh Glover MD Aug 08, 2019 10:39
[2019-08-08] MEDS: DiphenhydrAMINE 50mg/ml Inj IVP PRN ×2 (11:38→17:35)
[2019-08-08 12:00] VITALS: BP 100/60
[2019-08-08 16:00] VITALS: BP 119/60
--- NOTE | 2019-08-08 16:36 | NUR ---
CASE MANAGEMENT:REVIEW SI;RENAL FAILURE. MRSA SEPSIS. CELLULITIS. PERSISTENT BACTEREMIA RT HIP WOUND INFECTION/ULCER/OSTEO. 98.8 119 20 97/59 96% ON RA WBC 18/8 H/H 7.2/22.6 NA 134 BUN 22 BG 182 IS;ZYVOX PO Q12 HRS PROTONIX PO QD SYLVIA-HEX TOP QD DILAUDID IV Q3 HRS PRN PICC LINE INSERTION MED SURG STATUS DCP;FROM HOME PLAN;REQUIRES TRANSFUSION
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
--- NOTE | 2019-08-08 16:54 | NUR ---
RADIOLOGY NOTE: LEFT UPPER EXTREMITY PICC PLACED BY DR. AVILA. FA
--- NOTE | 2019-08-08 16:57 | Pre-Procedure Note/Attestation ---
Pre-Procedure Note/Attestation Complete Prior to Procedure Planned Procedure: left Procedure Narrative: PICC line placement Indications for Procedure Pre-Operative Diagnosis: need IV access Attestation I attest that I discussed the nature of the procedure; its benefits; risks and complications; and alternatives (and the risks and benefits of such alternatives ), prior to the procedure, with the patient (or the patient's legal business center representative). I attest that I re-evaluated the patient just prior to the surgery and that there has been no change in the patient's H&P, except as documented below: Shamar Chen M.D. Aug 08, 2019 16:57
--- NOTE | 2019-08-08 17:07 | Diagnostic Imaging Report ---
Indications: Needs long-term IV access Technique: Ultrasound confirms patent compressible small left basilic vein. Total sterile technique, including sterile probe cover and sterile gel, hat, mask,, sterile gown, large sterile drape, and preparation with 2% chlorhexidine utilized. Local anesthesia with 1% lidocaine. Under real-time ultrasound guidance, puncture episode vein using 21-gauge needle, documented and archived, passage 0.018 guidewire under direct fluoroscopy, which was used to determine appropriate catheter length, exchange for 5 [place] peel-away sheath. There was difficulty advancing the PICC line therefore a 5 [place] Kumpe catheter was advanced and exchange for 0.035 Bentson wire. Angioplasty was then performed in the region of the axillary vein (where the catheter would not pass) with a 4 mm diameter balloon. The image possibly was removed. Bentson wire was exchanged through the Kumpe catheter for the 0.018 wire. New 5 [place] peel-away sheath was placed and the 5 [place] PICC line (cut to appropriate length of 48 cm) advanced over the wire through the peel-away sheath. Peel-away sheath and guidewire removed. Catheter fixed to the skin. Both catheter ports aspirated and flushed. Patient tolerated procedure well, without immediate complication. Digital radiograph documents satisfactory catheter tip position, at the cavoatrial junction. Total fluoroscopy time 234.8 seconds. Total fluoroscopy dose 24.13 mGy. Total procedure time 15 minutes. Patient monitored throughout the procedure by a trained independent observer. Impression: Successful placement of 5 [place] double-lumen PICC line as detailed above. Catheter cleared for immediate use.
--- NOTE | 2019-08-08 18:15 | NUR ---
NURSE NOTES: Patient receiving blood transfusion 1st unit of blood as ordered,respirations unlabored .Call light within reach.
[2019-08-08 20:00] VITALS: BP 123/65
--- NOTE | 2019-08-08 20:10 | NUR ---
HAND-OFF: Report given to NANDO LANGE. fall risk precaution.
[2019-08-08] MEDS: Dyna-Hex 2% Top Sol 2oz TOPIC SCH (20:27)
[2019-08-09] VITALS: BP 115/68
[2019-08-09 04:20] VITALS: BP 129/74
[2019-08-09] MEDS: NovoLOG Insulin Flexpen SUBQ SCH ×4 (05:47→20:20)
--- NOTE | 2019-08-09 07:32 | NUR ---
HAND-OFF: Report given to Estevan Wyman RN.
--- NOTE | 2019-08-09 07:49 | NUR ---
NURSE NOTES: made am rounds, pt is in the bed asleep. respiration is even and unlabored on room air. no facial grimacing for pain and discomfort noted at this time. call light is within reach, will follow plan of care.
[2019-08-09 08:00] VITALS: BP 119/65
--- NOTE | 2019-08-09 08:44 | Pulmonology Progress Note ---
Assessment/Plan Assessment/Plan IMPRESSION: Concern for joint infection, concern for osteomyelitis, asthma, shortness of breath clinically stable, leukocytosis, possible sepsis with now positive blood cultures for Staphylococcus aureus, paraplegia, diabetes poorly controlled, noncompliance, severe pain. 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 Cristobal; medical management for now respiratory as is transfusion incentive spirometry PT follow up repeat labs remains ill needs repeat cbc does not want diabetic meds on PO linezolid; poor IV access reviewed care with other consultants impression, plan, and exam edited and reviewed in detail care discussed with RN Subjective ROS Limited/Unobtainable: No Constitutional: Denies: fever, chills Gastrointestinal/Abdominal: Reports: nausea, vomiting; Denies: diarrhea Musculoskeletal: Reports: pain Allergies: Coded Allergies: CEFTRIAXONE (Verified Allergy, Intermediate, SOB, HR-140bpm, face swollen , pt became red, 10/24/15) CODEINE (Verified Allergy, Intermediate, SWELLING, 01/03/11) LATEX (Verified Allergy, Intermediate, SWELLING, 01/03/11) PIPERACILLIN (Verified Allergy, Intermediate, Itching, 08/29/15) 08/29/15 tolerates Ceftaroline TAZOBACTAM (Verified Allergy, Intermediate, Itching, 01/29/15) POLYMYXIN B (Verified Allergy, Mild, Rash, 04/08/16) Suspected allergy reported by VANCOMYCIN (Verified Allergy, Mild, 07/15/14) ASPARAGINASE (Verified Allergy, Unknown, 01/28/14) CEFUROXIME (Unverified Allergy, Unknown, 04/19/16) IRON (Verified Allergy, Unknown, 01/28/14) LATEX, NATURAL RUBBER (Unverified Allergy, Unknown, 06/18/16) All Systems: reviewed and negative except above Subjective reviewed care has pain weak bcx + poor IV access transfusion Objective Last 24 Hour Vital Signs Date Time Temp Pulse Resp B/P (MAP) Pulse Ox O2 Delivery O2 Flow Rate FiO2 08/09/19 07:30 98.2 08/09/19 04:20 98.2 101 20 129/74 (92) 98 08/09/19 00:00 98.4 104 20 115/68 (84) 98 08/08/19 21:09 Room Air 08/08/19 20:00 98.4 110 20 123/65 (84) 96 08/08/19 16:00 97.1 118 20 119/60 (79) 96 08/08/19 12:00 98.2 119 20 100/60 (73) 96 08/08/19 10:16 Room Air 08/08/19 10:07 Room Air Intake and Output 08/08/19 08/09/19 19:00 07:00 Intake Total 600 ml 500 ml Balance 600 ml 500 ml Intake Oral 600 ml Blood Product 500 ml # Voids 2 1 Objective GENERAL: An ill-appearing female. HEENT: Negative. Extraocular movements are grossly intact. NECK: Supple. LUNGS: Moderate breath sounds. No rhonchi or wheezes. CARDIAC: S1, S2. Regular rhythm without murmurs, rubs, or gallops. tachy ABDOMEN: Soft, nontender, nondistended. EXTREMITIES: No cyanosis or clubbing. Drainage noted. Dressings noted. The patient is paraplegic. General Appearance: no acute distress, other - obese HEENT: mucous membranes moist Abdomen: soft, non tender Extremities: no edema, other - left knee wound clean Skin: ulcers, other 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: other - sleeping Microbiology Date/Time Source Procedure Growth Status 08/07/19 11:00 Blood Blood Culture - Preliminary NO GROWTH AFTER 24 HOURS Resulted Current Medications Medications (Trade) Dose Ordered Sig/Pineda Route PRN Reason Start Time Stop Time Status Last Admin Dose Admin Acetaminophen (Tylenol) 650 mg Q4H PRN ORAL Mild Pain/fever 07/28/19 13:30 08/27/19 13:29 Al Hydroxide/Mg Hydroxide (Mylanta) 30 ml Q4HR PRN ORAL To Patient Comfort 07/28/19 13:30 08/27/19 13:29 Chlorhexidine Gluconate (Nereida-Hex 2%) 1 applic DAILY@1999 TOPIC 08/07/19 20:00 11/05/19 19:59 08/08/19 20:27 Dextrose (Dextrose 50%) 25 ml Q30M PRN IV Hypoglycemia 07/29/19 15:30 10/27/19 15:29 Dextrose (Dextrose 50%) 50 ml Q30M PRN IV Hypoglycemia 07/29/19 15:30 10/27/19 15:29 Diphenhydramine HCl (Benadryl) 50 mg Q4HR PRN IVP Itching 07/28/19 17:00 08/27/19 16:59 08/08/19 17:35 Guaifenesin (Robitussin) 200 mg Q4H PRN ORAL For Cough 07/30/19 23:00 10/28/19 22:59 08/01/19 00:33 Heparin Sodium (Porcine) (Heparin 5000 units/ml) 5,000 units EVERY 12 HOURS SUBQ 07/28/19 21:00 09/11/19 20:59 08/06/19 10:00 Hydromorphone HCl (Dilaudid) 2 mg Q3H PRN IVP Severe Pain (Pain Scale 7-10) 08/05/19 11:45 08/12/19 11:44 08/09/19 06:51 Insulin Aspart (NovoLOG) BEFORE MEALS AND HS SUBQ 07/29/19 16:30 10/27/19 16:29 Linezolid (Zyvox) 600 mg Q12HR ORAL 08/04/19 15:00 09/12/19 23:59 08/08/19 20:27 Lorazepam (Ativan) 1 mg Q4H PRN ORAL For Anxiety 08/03/19 03:00 08/10/19 02:59 Ondansetron HCl (Zofran) 4 mg Q4H PRN IVP Nausea & Vomiting 08/07/19 10:15 09/06/19 10:14 08/07/19 11:13 Pantoprazole (Protonix) 40 mg DAILY ORAL 07/29/19 09:00 08/28/19 08:59 08/06/19 10:00 Thanh Glover MD Aug 09, 2019 08:44
[2019-08-09] MEDS: Heparin 5000 units/ml inj SUBQ SCH ×2 (08:47→20:12)
--- NOTE | 2019-08-09 08:47 | NUR ---
NURSE NOTES: pt. refuses heparin, states "I'm good". explains the benefit of medication.
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
[2019-08-09] MEDS: DiphenhydrAMINE 50mg/ml Inj IVP PRN ×2 (10:48→20:09)
[2019-08-09 10:51] LABS: HEMATOCRIT 26.5 % (37.0-47.0); HEMOGLOBIN 8.8 G/DL (12.0-16.0); MEAN CORPUSCULAR VOLUME 81 FL (80-99); PLATELET COUNT 330 K/UL (150-450); RED BLOOD COUNT 3.27 M/UL (4.20-5.40); RED CELL DISTRIBUTION WIDTH 13.8 % (11.6-14.8); WHITE BLOOD COUNT 18.8 K/UL (4.8-10.8)
--- NOTE | 2019-08-09 11:39 | NUR ---
[employer] NOTE MESSAGE SENT TO DR MICHEL IN RE TO POC. AWAITING CALL BACK. Addendum: 08/09/19 at 1159 by ANTHONY LUNSFORD LVN LVN REPLY BACK RECEIVED FROM DR MICHEL. STATES [facility] TOMORROW AM. POSSIBLE DISCHARGE TOMORROW.
[2019-08-09 12:00] VITALS: BP 107/57
--- NOTE | 2019-08-09 12:20 | NUR ---
NURSE NOTES: pt refuses accucheck, states "i don't need it, i haven't been eating". nurse explains benefit of accucheck
--- NOTE | 2019-08-09 12:44 | NUR ---
PT Notes: still with other discipline; will follow up later if time permits.
--- NOTE | 2019-08-09 13:02 | Infectious Diseases Prog Note ---
"Assessment/Plan Assessment/Plan A 1. MRSA sepsis 2. left knee possible septic arthritis | osteomyelitis 3. paraplegia 4. leucocytosis 5. renal failure improving 6. Hyponatremia P 1. continue linezolid X 34days 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 Respiratory: Reports: no symptoms Gastrointestinal/Abdominal: Reports: no symptoms Genitourinary: Reports: no symptoms Musculoskeletal: Reports: pain Allergies: Coded Allergies: CEFTRIAXONE (Verified Allergy, Intermediate, SOB, HR-140bpm, face swollen , pt became red, 10/24/15) CODEINE (Verified Allergy, Intermediate, SWELLING, 01/03/11) LATEX (Verified Allergy, Intermediate, SWELLING, 01/03/11) PIPERACILLIN (Verified Allergy, Intermediate, Itching, 08/29/15) 08/29/15 tolerates Ceftaroline TAZOBACTAM (Verified Allergy, Intermediate, Itching, 01/29/15) POLYMYXIN B (Verified Allergy, Mild, Rash, 04/08/16) Suspected allergy reported by VANCOMYCIN (Verified Allergy, Mild, 07/15/14) ASPARAGINASE (Verified Allergy, Unknown, 01/28/14) CEFUROXIME (Unverified Allergy, Unknown, 04/19/16) IRON (Verified Allergy, Unknown, 01/28/14) LATEX, NATURAL RUBBER (Unverified Allergy, Unknown, 06/18/16) Objective Vital Signs Last 24 Hour Vital Signs Date Time Temp Pulse Resp B/P (MAP) Pulse Ox O2 Delivery O2 Flow Rate FiO2 08/09/19 09:00 Room Air 08/09/19 08:00 98.2 99 18 119/65 (83) 98 08/09/19 07:30 98.2 08/09/19 04:20 98.2 101 20 129/74 (92) 98 08/09/19 00:00 98.4 104 20 115/68 (84) 98 08/08/19 21:09 Room Air 08/08/19 20:00 98.4 110 20 123/65 (84) 96 08/08/19 16:00 97.1 118 20 119/60 (79) 96 Height (Feet): 5 Height (Inches): 5.00 Weight (Pounds): 204 General Appearance: no acute distress, other - obese Respiratory/Chest: lungs clear Cardiovascular: normal rate Abdomen: soft, non tender Extremities: no edema Skin: ulcers, other - left knee 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: alert, oriented x 3, responsive Microbiology Date/Time Source Procedure Growth Status 08/07/19 11:00 Blood Blood Culture - Preliminary NO GROWTH AFTER 24 HOURS Resulted Laboratory Tests Test 08/09/19 10:40 White Blood Count 18.8 K/UL (4.8-10.8) H Red Blood Count 3.27 M/UL (4.20-5.40) L Hemoglobin 8.8 G/DL (12.0-16.0) L Hematocrit 26.5 % (37.0-47.0) L Mean Corpuscular Volume 81 FL (80-99) Mean Corpuscular Hemoglobin 27.0 PG (27.0-31.0) Mean Corpuscular Hemoglobin Concent 33.4 G/DL (32.0-36.0) Red Cell Distribution Width 13.8 % (11.6-14.8) Platelet Count 330 K/UL (150-450) Mean Platelet Volume 6.3 FL (6.5-10.1) L Neutrophils (%) (Auto) % (45.0-75.0) Lymphocytes (%) (Auto) % (20.0-45.0) Monocytes (%) (Auto) % (1.0-10.0) Eosinophils (%) (Auto) % (0.0-3.0) Basophils (%) (Auto) % (0.0-2.0) Differential Total Cells Counted 100 Neutrophils % (Manual) 80 % (45-75) H Lymphocytes % (Manual) 17 % (20-45) L Monocytes % (Manual) 3 % (1-10) Eosinophils % (Manual) 0 % (0-3) Basophils % (Manual) 0 % (0-2) Band Neutrophils 0 % (0-8) Platelet Estimate Adequate Platelet Morphology Normal Hypochromasia 2+ Anisocytosis 1+ Spherocytes 1+ Current Medications Medications (Trade) Dose Ordered Sig/Pineda Route PRN Reason Start Time Stop Time Status Last Admin Dose Admin Acetaminophen (Tylenol) 650 mg Q4H PRN ORAL Mild Pain/fever 07/28/19 13:30 08/27/19 13:29 Al Hydroxide/Mg Hydroxide (Mylanta) 30 ml Q4HR PRN ORAL To Patient Comfort 07/28/19 13:30 08/27/19 13:29 Chlorhexidine Gluconate (Nereida-Hex 2%) 1 applic DAILY@2000 TOPIC 08/07/19 20:00 11/05/19 19:59 08/08/19 20:27 Dextrose (Dextrose 50%) 25 ml Q30M PRN IV Hypoglycemia 07/29/19 15:30 10/27/19 15:29 Dextrose (Dextrose 50%) 50 ml Q30M PRN IV Hypoglycemia 07/29/19 15:30 10/27/19 15:29 Diphenhydramine HCl (Benadryl) 50 mg Q4HR PRN IVP Itching 07/28/19 17:00 08/27/19 16:59 08/09/19 10:48 Guaifenesin (Robitussin) 200 mg Q4H PRN ORAL For Cough 07/30/19 23:00 10/28/19 22:59 08/01/19 00:33 Heparin Sodium (Porcine) (Heparin 5000 units/ml) 5,000 units EVERY 12 HOURS SUBQ 07/28/19 21:00 09/11/19 20:59 08/06/19 10:00 Hydromorphone HCl (Dilaudid) 2 mg Q3H PRN IVP Severe Pain (Pain Scale 7-10) 08/05/19 11:45 08/12/19 11:44 08/09/19 10:48 Insulin Aspart (NovoLOG) BEFORE MEALS AND HS SUBQ 07/29/19 16:30 10/27/19 16:29 Linezolid (Zyvox) 600 mg Q12HR ORAL 08/04/19 15:00 09/12/19 23:59 08/09/19 08:38 Lorazepam (Ativan) 1 mg Q4H PRN ORAL For Anxiety 08/03/19 03:00 08/10/19 02:59 Ondansetron HCl (Zofran) 4 mg Q4H PRN IVP Nausea & Vomiting 08/07/19 10:15 09/06/19 10:14 08/07/19 11:13 Pantoprazole (Protonix) 40 mg DAILY ORAL 07/29/19 09:00 08/28/19 08:59 08/09/19 08:39 Vaughn Juárez MD Aug 09, 2019 13:02"
[2019-08-09 16:00] VITALS: BP 110/61
--- NOTE | 2019-08-09 19:30 | NUR ---
NURSE NOTES: RECEIVED PATIENT FROM ANISA MOSS. PATIENT IS AWAKE, AAOX4, ON ROOM AIR, C/O 8/10 BACK PAIN. WILL FOLLOW UP WITH PRN PAIN MEDS. COLOSTOMY BAG PRESENT, DRAINING WELL. P200 [address]. WOUND DRESSINGS INTACT AND DRY. PICC IS INTACT AND PATENT. BED IS LOCKED AND LOW, BED ALARMS NOTED, SIDE RAILS UPX2 AND CALL LIGHT IS WITHIN REACH. WILL CONTINUE TO MONITOR.
--- NOTE | 2019-08-09 19:43 | NUR ---
HAND-OFF: Report given to MILLS.
[2019-08-09 20:00] VITALS: BP 124/62
[2019-08-09] MEDS: Dyna-Hex 2% Top Sol 2oz TOPIC SCH (20:11)
[2019-08-10] VITALS (7 sets, daily range): BP systolic 100–133; BP diastolic 47–78
[2019-08-10] MEDS: NovoLOG Insulin Flexpen SUBQ SCH ×4 (06:30→20:29)
--- NOTE | 2019-08-10 07:00 | NUR ---
NURSE NOTES: PERFORMED WOUND CARE AND DRESSING CHANGE.
[2019-08-10] MEDS: DiphenhydrAMINE 50mg/ml Inj IVP PRN ×3 (07:52→20:22)
--- NOTE | 2019-08-10 08:05 | General Progress Note ---
Assessment/Plan Problem List: (1) Dehydration ICD Codes: E86.0 - Dehydration SNOMED: 61959426 (2) Opiate dependence ICD Codes: F11.20 - Opioid dependence, uncomplicated SNOMED: 66852991 (3) Colostomy care ICD Codes: Z43.3 - Encounter for attention to colostomy SNOMED: 315204434 (4) Pain ICD Codes: R52 - Pain, unspecified SNOMED: 25489634 (5) Sepsis ICD Codes: A41.9 - Sepsis SNOMED: 37776886 (6) Infection of left knee ICD Codes: M00.9 - Pyogenic arthritis, unspecified SNOMED: 44061386, 340682085 (7) right hip wound infecion/ulcer/osteo (8) Paraplegia ICD Codes: G82.20 - Paraplegia SNOMED: 97735457 (9) Cellulitis ICD Codes: L03.90 - Cellulitis, unspecified SNOMED: 636666773 (10) Asthma ICD Codes: J45.909 - Unspecified asthma, uncomplicated SNOMED: 710107243 Status: stable Assessment/Plan: cont current rx abx per id picc line 33 more days iv abx echo negative pain rx colostomy care monitor Na level turn q2 wound care per Dr.davdand butler when cleared by ID Subjective ROS Limited/Unobtainable: No Constitutional: Reports: malaise, weakness HEENT: Reports: no symptoms Cardiovascular: Reports: no symptoms Respiratory: Reports: cough Gastrointestinal/Abdominal: Reports: no symptoms Genitourinary: Reports: no symptoms 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: Reports: anxiety, depressed Endocrine: Reports: no symptoms Hematologic/Lymphatic: Reports: no symptoms Allergies: Coded Allergies: CEFTRIAXONE (Verified Allergy, Intermediate, SOB, HR-140bpm, face swollen , pt became red, 10/24/15) CODEINE (Verified Allergy, Intermediate, SWELLING, 01/03/11) LATEX (Verified Allergy, Intermediate, SWELLING, 01/03/11) PIPERACILLIN (Verified Allergy, Intermediate, Itching, 08/29/15) 08/29/15 tolerates Ceftaroline TAZOBACTAM (Verified Allergy, Intermediate, Itching, 01/29/15) POLYMYXIN B (Verified Allergy, Mild, Rash, 04/08/16) Suspected allergy reported by VANCOMYCIN (Verified Allergy, Mild, 4/6/15) ASPARAGINASE (Verified Allergy, Unknown, 01/28/14) CEFUROXIME (Unverified Allergy, Unknown, 04/19/16) IRON (Verified Allergy, Unknown, 01/28/14) LATEX, NATURAL RUBBER (Unverified Allergy, Unknown, 06/18/16) All Systems: reviewed and negative except above Subjective no new complaints. stable. pain controlled. cultures with s.aureus. no fever or chills. no sob. ct noted. not cooperative with wound care. better after transfusion. remains on iv abx. Objective Last 24 Hour Vital Signs Date Time Temp Pulse Resp B/P (MAP) Pulse Ox O2 Delivery O2 Flow Rate FiO2 08/10/19 04:00 97.9 96 18 133/78 (96) 96 08/10/19 00:00 97.2 101 16 108/59 (75) 96 08/09/19 21:00 Room Air 08/09/19 20:00 98.4 100 18 124/62 (82) 96 08/09/19 16:00 98.2 103 20 110/61 (77) 100 08/09/19 12:00 97.0 100 19 107/57 (74) 98 08/09/19 09:00 Room Air Intake and Output 08/09/19 08/10/19 19:00 07:00 Intake Total 1240 ml 360 ml Balance 1240 ml 360 ml Intake Oral 1240 ml Other 360 ml # Voids 1 # Bowel Movements 1 Laboratory Tests 08/09/19 10:40: White Blood Count 18.8H, Red Blood Count 3.27L, Hemoglobin 8.8L, Hematocrit 26.5L, Mean Corpuscular Volume 81, Mean Corpuscular Hemoglobin 27.0, Mean Corpuscular Hemoglobin Concent 33.4, Red Cell Distribution Width 13.8, Platelet Count 330, Mean Platelet Volume 6.3L, Neutrophils (%) (Auto) , Lymphocytes (%) ( Auto) , Monocytes (%) (Auto) , Eosinophils (%) (Auto) , Basophils (%) (Auto) , Differential Total Cells Counted 100, Neutrophils % (Manual) 80H, Lymphocytes % (Manual) 17L, Monocytes % (Manual) 3, Eosinophils % (Manual) 0, Basophils % ( Manual) 0, Band Neutrophils 0, Platelet Estimate Adequate, Platelet Morphology Normal, Hypochromasia 2+, Anisocytosis 1+, Spherocytes 1+ Height (Feet): 5 Height (Inches): 5.00 Weight (Pounds): 204 Objective left knee swelling General Appearance: WD/WN, alert EENT: normal ENT inspection Neck: non-tender, normal alignment, supple Cardiovascular: normal peripheral pulses, normal rate, regular rhythm Respiratory/Chest: chest wall non-tender, lungs clear, normal breath sounds, no respiratory distress Abdomen: normal bowel sounds, non tender, soft, no organomegaly, no mass Edema: no edema noted Arm (L), no edema noted Arm (R), no edema noted Leg (L), no edema noted Leg (R), no edema noted Pedal (L), no edema noted Pedal (R), no edema noted Generalized Edema: trace edema Neurologic: no motor/sensory deficits, alert, motor weakness Objective left knee swelling Jacques Chanel MD August 10, 2019 08:05
--- NOTE | 2019-08-10 08:15 | Pulmonology Progress Note ---
Assessment/Plan Assessment/Plan IMPRESSION: Concern for joint infection, concern for osteomyelitis, asthma, shortness of breath clinically stable, leukocytosis, possible sepsis with now positive blood cultures for Staphylococcus aureus, paraplegia, diabetes poorly controlled, noncompliance, severe pain. tachycardia PLAN care noted pulse rate improving ativan PRN antibiotics as per ID - fpc linezolid surgical follow up - Dr. Cristobal; medical management for now respiratory as is transfusion incentive spirometry PT follow up repeat labs remains ill needs repeat cbc does not want diabetic meds on PO linezolid for the next 32 days; poor IV access reviewed care with other consultants impression, plan, and exam edited and reviewed in detail care discussed with RN 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 Gastrointestinal/Abdominal: Reports: no symptoms Musculoskeletal: Reports: pain Allergies: Coded Allergies: CEFTRIAXONE (Verified Allergy, Intermediate, SOB, HR-140bpm, face swollen , pt became red, 10/24/15) CODEINE (Verified Allergy, Intermediate, SWELLING, 01/03/11) LATEX (Verified Allergy, Intermediate, SWELLING, 01/03/11) PIPERACILLIN (Verified Allergy, Intermediate, Itching, 08/29/15) 08/29/15 tolerates Ceftaroline TAZOBACTAM (Verified Allergy, Intermediate, Itching, 01/29/15) POLYMYXIN B (Verified Allergy, Mild, Rash, 04/08/16) Suspected allergy reported by VANCOMYCIN (Verified Allergy, Mild, 07/15/14) ASPARAGINASE (Verified Allergy, Unknown, 01/28/14) CEFUROXIME (Unverified Allergy, Unknown, 04/19/16) IRON (Verified Allergy, Unknown, 01/28/14) LATEX, NATURAL RUBBER (Unverified Allergy, Unknown, 06/18/16) All Systems: reviewed and negative except above Subjective reviewed care with ID has pain weak bcx + poor IV access transfusion completed Objective Last 24 Hour Vital Signs Date Time Temp Pulse Resp B/P (MAP) Pulse Ox O2 Delivery O2 Flow Rate FiO2 08/10/19 04:00 97.9 96 18 133/78 (96) 96 08/10/19 00:00 97.2 101 16 108/59 (75) 96 08/09/19 21:00 Room Air 08/09/19 20:00 98.4 100 18 124/62 (82) 96 08/09/19 16:00 98.2 103 20 110/61 (77) 100 08/09/19 12:00 97.0 100 19 107/57 (74) 98 08/09/19 09:00 Room Air Intake and Output 08/09/19 08/10/19 19:00 07:00 Intake Total 1240 ml 360 ml Balance 1240 ml 360 ml Intake Oral 1240 ml Other 360 ml # Voids 1 # Bowel Movements 1 Objective GENERAL: An ill-appearing female. HEENT: Negative. Extraocular movements are grossly intact. NECK: Supple. LUNGS: Moderate breath sounds. No rhonchi or wheezes. CARDIAC: S1, S2. Regular rhythm without murmurs, rubs, or gallops. tachy ABDOMEN: Soft, nontender, nondistended. EXTREMITIES: No cyanosis or clubbing. Drainage noted. Dressings noted. The patient is paraplegic. General Appearance: no acute distress, other - obese HEENT: mucous membranes moist Abdomen: soft, non tender Extremities: no edema Skin: ulcers, other - left knee 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: alert, oriented x 3, responsive Microbiology Date/Time Source Procedure Growth Status 08/07/19 11:00 Blood Blood Culture - Preliminary NO GROWTH AFTER 48 HOURS Resulted Laboratory Tests 08/09/19 10:40: White Blood Count 18.8H, Red Blood Count 3.27L, Hemoglobin 8.8L, Hematocrit 26.5L, Mean Corpuscular Volume 81, Mean Corpuscular Hemoglobin 27.0, Mean Corpuscular Hemoglobin Concent 33.4, Red Cell Distribution Width 13.8, Platelet Count 330, Mean Platelet Volume 6.3L, Neutrophils (%) (Auto) , Lymphocytes (%) ( Auto) , Monocytes (%) (Auto) , Eosinophils (%) (Auto) , Basophils (%) (Auto) , Differential Total Cells Counted 100, Neutrophils % (Manual) 80H, Lymphocytes % (Manual) 17L, Monocytes % (Manual) 3, Eosinophils % (Manual) 0, Basophils % ( Manual) 0, Band Neutrophils 0, Platelet Estimate Adequate, Platelet Morphology Normal, Hypochromasia 2+, Anisocytosis 1+, Spherocytes 1+ Current Medications Medications (Trade) Dose Ordered Sig/Pineda Route PRN Reason Start Time Stop Time Status Last Admin Dose Admin Acetaminophen (Tylenol) 650 mg Q4H PRN ORAL Mild Pain/fever 07/28/19 13:30 08/27/19 13:29 Al Hydroxide/Mg Hydroxide (Mylanta) 30 ml Q4HR PRN ORAL To Patient Comfort 07/28/19 13:30 08/27/19 13:29 Chlorhexidine Gluconate (Nereida-Hex 2%) 1 applic DAILY@2000 TOPIC 08/07/19 20:00 11/05/19 19:59 08/09/19 20:11 Dextrose (Dextrose 50%) 25 ml Q30M PRN IV Hypoglycemia 07/29/19 15:30 10/27/19 15:29 Dextrose (Dextrose 50%) 50 ml Q30M PRN IV Hypoglycemia 07/29/19 15:30 10/27/19 15:29 Diphenhydramine HCl (Benadryl) 50 mg Q4HR PRN IVP Itching 07/28/19 17:00 08/27/19 16:59 08/10/19 07:52 Guaifenesin (Robitussin) 200 mg Q4H PRN ORAL For Cough 07/30/19 23:00 10/28/19 22:59 08/01/19 00:33 Heparin Sodium (Porcine) (Heparin 5000 units/ml) 5,000 units EVERY 12 HOURS SUBQ 07/28/19 21:00 09/11/19 20:59 08/06/19 10:00 Hydromorphone HCl (Dilaudid) 2 mg Q3H PRN IVP Severe Pain (Pain Scale 7-10) 08/05/19 11:45 08/12/19 11:44 08/10/19 07:52 Insulin Aspart (NovoLOG) BEFORE MEALS AND HS SUBQ 07/29/19 16:30 10/27/19 16:29 Linezolid (Zyvox) 600 mg Q12HR ORAL 08/04/19 15:00 09/12/19 23:59 08/09/19 20:11 Ondansetron HCl (Zofran) 4 mg Q4H PRN IVP Nausea & Vomiting 08/07/19 10:15 09/06/19 10:14 08/07/19 11:13 Pantoprazole (Protonix) 40 mg DAILY ORAL 07/29/19 09:00 08/28/19 08:59 08/09/19 08:39 Thanh Glover MD August 10, 2019 08:15
--- NOTE | 2019-08-10 08:18 | NUR ---
HAND-OFF: Report given to ANISA Garber. Endorsed plan of care.
[2019-08-10 08:38] LABS: BASOPHILS % (AUTO) 0.2 % (0.0-2.0); EOSINOPHILS % (AUTO) 0.6 % (0.0-3.0); HEMATOCRIT 26.2 % (37.0-47.0); HEMOGLOBIN 8.9 G/DL (12.0-16.0); MEAN CORPUSCULAR VOLUME 80 FL (80-99); NEUTROPHILS % (AUTO) 84.1 % (45.0-75.0); PLATELET COUNT 345 K/UL (150-450); RED BLOOD COUNT 3.28 M/UL (4.20-5.40); RED CELL DISTRIBUTION WIDTH 13.8 % (11.6-14.8); WHITE BLOOD COUNT 17.5 K/UL (4.8-10.8)
[2019-08-10] MEDS: Heparin 5000 units/ml inj SUBQ SCH ×2 (09:00→20:29)
--- NOTE | 2019-08-10 10:53 | Infectious Diseases Prog Note ---
"Assessment/Plan Assessment/Plan antibiotics : linezolid A 1. MRSA sepsis 2. left knee possible septic arthritis | osteomyelitis 3. paraplegia 4. leucocytosis improving 5. renal failure improving P 1. continue linezolid 33 more days 2. cbc, bmp, lft q weekly 3. will follow up cultures Subjective ROS Limited/Unobtainable: Yes Allergies: Coded Allergies: CEFTRIAXONE (Verified Allergy, Intermediate, SOB, HR-140bpm, face swollen , pt became red, 10/24/15) CODEINE (Verified Allergy, Intermediate, SWELLING, 01/03/11) LATEX (Verified Allergy, Intermediate, SWELLING, 01/03/11) PIPERACILLIN (Verified Allergy, Intermediate, Itching, 08/29/15) 08/29/15 tolerates Ceftaroline TAZOBACTAM (Verified Allergy, Intermediate, Itching, 01/29/15) POLYMYXIN B (Verified Allergy, Mild, Rash, 04/08/16) Suspected allergy reported by VANCOMYCIN (Verified Allergy, Mild, 07/15/14) ASPARAGINASE (Verified Allergy, Unknown, 01/28/14) CEFUROXIME (Unverified Allergy, Unknown, 04/19/16) IRON (Verified Allergy, Unknown, 01/28/14) LATEX, NATURAL RUBBER (Unverified Allergy, Unknown, 06/18/16) Objective Vital Signs Last 24 Hour Vital Signs Date Time Temp Pulse Resp B/P (MAP) Pulse Ox O2 Delivery O2 Flow Rate FiO2 08/10/19 09:00 Room Air 08/10/19 08:22 97.9 08/10/19 08:00 97.8 100 20 104/59 (74) 97 08/10/19 04:00 97.9 96 18 133/78 (96) 96 08/10/19 00:00 97.2 101 16 108/59 (75) 96 08/09/19 21:00 Room Air 08/09/19 20:00 98.4 100 18 124/62 (82) 96 08/09/19 16:00 98.2 103 20 110/61 (77) 100 08/09/19 12:00 97.0 100 19 107/57 (74) 98 Height (Feet): 5 Height (Inches): 5.00 Weight (Pounds): 204 Respiratory/Chest: lungs clear Cardiovascular: normal rate, regular rhythm, no gallop/murmur Abdomen: soft, non tender Extremities: no edema, other - left knee wound, left arm PICC Microbiology Date/Time Source Procedure Growth Status 08/07/19 11:00 Blood Blood Culture - Preliminary NO GROWTH AFTER 48 HOURS Resulted Laboratory Tests Test 08/10/19 05:20 White Blood Count 17.5 K/UL (4.8-10.8) H Red Blood Count 3.28 M/UL (4.20-5.40) L Hemoglobin 8.9 G/DL (12.0-16.0) L Hematocrit 26.2 % (37.0-47.0) L Mean Corpuscular Volume 80 FL (80-99) Mean Corpuscular Hemoglobin 27.3 PG (27.0-31.0) Mean Corpuscular Hemoglobin Concent 34.0 G/DL (32.0-36.0) Red Cell Distribution Width 13.8 % (11.6-14.8) Platelet Count 345 K/UL (150-450) Mean Platelet Volume 6.1 FL (6.5-10.1) L Neutrophils (%) (Auto) 84.1 % (45.0-75.0) H Lymphocytes (%) (Auto) 12.0 % (20.0-45.0) L Monocytes (%) (Auto) 3.0 % (1.0-10.0) Eosinophils (%) (Auto) 0.6 % (0.0-3.0) Basophils (%) (Auto) 0.2 % (0.0-2.0) Current Medications Medications (Trade) Dose Ordered Sig/Pineda Route PRN Reason Start Time Stop Time Status Last Admin Dose Admin Acetaminophen (Tylenol) 650 mg Q4H PRN ORAL Mild Pain/fever 07/28/19 13:30 08/27/19 13:29 Al Hydroxide/Mg Hydroxide (Mylanta) 30 ml Q4HR PRN ORAL To Patient Comfort 07/28/19 13:30 08/27/19 13:29 Chlorhexidine Gluconate (Nereida-Hex 2%) 1 applic DAILY@1999 TOPIC 08/07/19 20:00 11/05/19 19:59 08/09/19 20:11 Dextrose (Dextrose 50%) 25 ml Q30M PRN IV Hypoglycemia 07/29/19 15:30 10/27/19 15:29 Dextrose (Dextrose 50%) 50 ml Q30M PRN IV Hypoglycemia 07/29/19 15:30 10/27/19 15:29 Diphenhydramine HCl (Benadryl) 50 mg Q4HR PRN IVP Itching 07/28/19 17:00 08/27/19 16:59 08/10/19 07:52 Guaifenesin (Robitussin) 200 mg Q4H PRN ORAL For Cough 07/30/19 23:00 10/28/19 22:59 08/01/19 00:33 Heparin Sodium (Porcine) (Heparin 5000 units/ml) 5,000 units EVERY 12 HOURS SUBQ 07/28/19 21:00 09/11/19 20:59 08/06/19 10:00 Hydromorphone HCl (Dilaudid) 2 mg Q3H PRN IVP Severe Pain (Pain Scale 7-10) 08/05/19 11:45 08/12/19 11:44 08/10/19 07:52 Insulin Aspart (NovoLOG) BEFORE MEALS AND HS SUBQ 07/29/19 16:30 10/27/19 16:29 Linezolid (Zyvox) 600 mg Q12HR ORAL 08/04/19 15:00 09/12/19 23:59 08/10/19 09:07 Ondansetron HCl (Zofran) 4 mg Q4H PRN IVP Nausea & Vomiting 08/07/19 10:15 09/06/19 10:14 08/07/19 11:13 Pantoprazole (Protonix) 40 mg DAILY ORAL 07/29/19 09:00 08/28/19 08:59 08/10/19 09:07 Deng Reyes MD August 10, 2019 10:53"
--- NOTE | 2019-08-10 11:17 | NUR ---
RD ASSESSMENT & RECOMMENDATIONS SEE CARE ACTIVITY FOR COMPLETE ASSESSMENT DAILY ESTIMATED NEEDS: Needs based on Wound + paraplegia, 66 kg abw 28-30 kcals/kg 6401-1108 total kcals 1.25-2 g protein/kg 83-132 g total protein 25-30 mL/kg 7910-8826 total fluid mLs NUTRITION DIAGNOSIS: (1) Increased KCAL, protein, and micronutrient needs r/t wound healing as evidenced pt w/ multiple pressure ulcers at LLE ulcer, sacrum, right ischium, and lt knee. (2) Altered nutrition related lab values R/T diabetes as evidenced by elev BGs (329 408), elev POC glu (265-287-> now 126 140), A1C of 8.4. CURRENT DIET:REGULAR PO DIET RECOMMENDATIONS: CCHO MED + High Prot snacks BID ENTERAL NUTRITION RECOMMENDATIONS: to provide ADDITIONAL RECOMMENDATIONS: * Recalibrated bedscale wt for accurate CBW-> monitor weekly wts * WOUND CARE: MVI w/ min x1+VIT C 500mg BID ZnSO4 220mg QD x 10 days Luiz 1pkt BID (QD for now per pt request- added to tray) * Monitor BGs- elevated, h/o DM, pt refusing NISS and carb controlled diet * Glucerna TID w/ poor PO (refusing many meals at this time) .
--- NOTE | 2019-08-10 12:36 | NUR ---
NURSE NOTES: Patient stated that she couldn't find her reading glasses since she was cleared this morning before shift exchange by PM shift; patient suspected that her glass might be taken with the dirty linens; I called and ask Mariposa at [facility] if there is a way to look through the lines and find the glass; Marcia said the [employer] already took the dirty linens for laundry and Marcia is gonna call the company to let us know if there is any glass they find; Marcia said if they find the glass, she will let us know; Marcia said it usually taken 2-3 days;
--- NOTE | 2019-08-10 13:02 | NUR ---
PT notes: patient declined treatment despite multiple attempts today; stated that she's too upset to participate with therapy because she lost her eye glasses today; patient requested to just come back tomorrow; RN made aware of the refusal; will follow up next treatment schedule.
--- NOTE | 2019-08-10 13:03 | NUR ---
NURSE NOTES: Charbel, Physical Therapist mentioned that patient refused to work with PT; I went to the room and explain the order that MD Glover gave this morning; patient stated that she is a little bit upset that she couldn't find her glass and she will work with PT tomorrow.
--- NOTE | 2019-08-10 13:26 | NUR ---
CASE MANAGEMENT:REVIEW SI;SEPSIS. LT KNEE SEPTIC ARTHRITIS. RT HIP ULCER. 98.4 101 20 104/59 96% ON RA WBC 17.5 H/H 8.9/26.2 NA 134 BUN 22 BG 182 IS;ZYVOX PO Q12 HRS DILAUDID IV Q3 HRS PRN SYLVIA-HEX TOP QD MED SURG STATUS DCP;FROM HOME PLAN;SHELTER ZYVOX SURGICAL FOLLOW UP REPEAT LABS
--- NOTE | 2019-08-10 19:51 | NUR ---
HAND-OFF: Report given to AINSA Beck.
[2019-08-10] MEDS: Dyna-Hex 2% Top Sol 2oz TOPIC SCH (20:00)
--- NOTE | 2019-08-10 20:00 | NUR ---
NURSE NOTES: Patient received in bed, awake and alert. C/o pain, will medicate as prescribed. PICC line intact and patent. Call light in reach. Will continue to monitor.
[2019-08-11 04:00] VITALS: BP 117/59
[2019-08-11] MEDS: DiphenhydrAMINE 50mg/ml Inj IVP PRN ×4 (05:13→19:48)
[2019-08-11] MEDS: NovoLOG Insulin Flexpen SUBQ SCH ×4 (05:43→20:48)
--- NOTE | 2019-08-11 06:50 | NUR ---
NURSE NOTES: Dressing changed on all wounds: sacrum, ischium, bilateral thighs and left knee. Tolerated well. Patient was able to turn by herself on the bed with assist on positioning her legs over each other.
--- NOTE | 2019-08-11 07:19 | NUR ---
HAND-OFF: Report given to Massiel LANGE.
[2019-08-11 08:00] VITALS: BP 119/82
--- NOTE | 2019-08-11 08:19 | NUR ---
NURSE NOTES: Patient awake and alert and oriented ,respiration unlabored.Patient has colostomy bag in place with liquid brownish stool Picc line intact to the upper left arm.Patient breakfast at bedside,patient will eat breakfast.Call light within reach.
[2019-08-11] MEDS: Heparin 5000 units/ml inj SUBQ SCH ×2 (09:00→20:48)
--- NOTE | 2019-08-11 10:39 | General Progress Note ---
Assessment/Plan Problem List: (1) Dehydration ICD Codes: E86.0 - Dehydration SNOMED: 31898923 (2) Opiate dependence ICD Codes: F11.20 - Opioid dependence, uncomplicated SNOMED: 62471489 (3) Colostomy care ICD Codes: Z43.3 - Encounter for attention to colostomy SNOMED: 741496720 (4) Pain ICD Codes: R52 - Pain, unspecified SNOMED: 96585189 (5) Sepsis ICD Codes: A41.9 - Sepsis SNOMED: 84586750 (6) Infection of left knee ICD Codes: M00.9 - Pyogenic arthritis, unspecified SNOMED: 07970400, 174056773 (7) right hip wound infecion/ulcer/osteo (8) Paraplegia ICD Codes: G82.20 - Paraplegia SNOMED: 47130380 (9) Cellulitis ICD Codes: L03.90 - Cellulitis, unspecified SNOMED: 726751910 (10) Asthma ICD Codes: J45.909 - Unspecified asthma, uncomplicated SNOMED: 257339193 Status: stable Assessment/Plan: cont current rx abx per id picc line 32 more days iv abx echo negative pain rx colostomy care monitor Na level turn q2 wound care per Dr.davdand butler when cleared by ID Subjective ROS Limited/Unobtainable: No Constitutional: Reports: malaise, weakness HEENT: Reports: no symptoms Cardiovascular: Reports: no symptoms Respiratory: Reports: no symptoms Gastrointestinal/Abdominal: Reports: no symptoms Genitourinary: Reports: no symptoms 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: Reports: no symptoms Endocrine: Reports: no symptoms Hematologic/Lymphatic: Reports: no symptoms Allergies: Coded Allergies: CEFTRIAXONE (Verified Allergy, Intermediate, SOB, HR-140bpm, face swollen , pt became red, 10/24/15) CODEINE (Verified Allergy, Intermediate, SWELLING, 01/03/11) LATEX (Verified Allergy, Intermediate, SWELLING, 01/03/11) PIPERACILLIN (Verified Allergy, Intermediate, Itching, 08/29/15) 08/29/15 tolerates Ceftaroline TAZOBACTAM (Verified Allergy, Intermediate, Itching, 01/29/15) POLYMYXIN B (Verified Allergy, Mild, Rash, 04/08/16) Suspected allergy reported by VANCOMYCIN (Verified Allergy, Mild, 4/6/15) ASPARAGINASE (Verified Allergy, Unknown, 01/28/14) CEFUROXIME (Unverified Allergy, Unknown, 04/19/16) IRON (Verified Allergy, Unknown, 01/28/14) LATEX, NATURAL RUBBER (Unverified Allergy, Unknown, 06/18/16) All Systems: reviewed and negative except above Subjective no new complaints. stable. pain controlled. cultures with s.aureus. no fever or chills. no sob. ct noted. not cooperative with wound care at times. wbc still high but trending down Objective Last 24 Hour Vital Signs Date Time Temp Pulse Resp B/P (MAP) Pulse Ox O2 Delivery O2 Flow Rate FiO2 08/11/19 04:00 98.2 102 20 117/59 (78) 96 08/10/19 23:58 98.6 107 24 131/69 (89) 97 08/10/19 21:00 Room Air 08/10/19 20:00 98.1 107 20 100/47 (64) 97 08/10/19 16:49 97.9 08/10/19 16:00 98.6 108 20 118/70 (86) 98 08/10/19 12:00 98.2 99 19 107/59 (75) 98 Intake and Output 08/10/19 08/11/19 19:00 07:00 Intake Total 1200 ml 360 ml Output Total 300 ml Balance 1200 ml 60 ml Intake Oral 1200 ml Other 360 ml Stool Total 300 ml # Voids 1 Height (Feet): 5 Height (Inches): 5.00 Weight (Pounds): 204 Objective left knee swelling General Appearance: WD/WN, alert EENT: normal ENT inspection Neck: non-tender, normal alignment, supple Cardiovascular: normal peripheral pulses, normal rate, regular rhythm Respiratory/Chest: chest wall non-tender, lungs clear, normal breath sounds, no respiratory distress Abdomen: normal bowel sounds, non tender, soft, no organomegaly, no mass Edema: no edema noted Arm (L), no edema noted Arm (R), no edema noted Leg (L), no edema noted Leg (R), no edema noted Pedal (L), no edema noted Pedal (R), no edema noted Generalized Edema: trace edema Neurologic: no motor/sensory deficits, alert, motor weakness Objective left knee swelling Jacques Chanel MD August 11, 2019 10:39
[2019-08-11 12:00] VITALS: BP 99/59
--- NOTE | 2019-08-11 19:25 | NUR ---
HAND-OFF: Report given to Ranjit LANGE.
--- NOTE | 2019-08-11 19:30 | NUR ---
NURSE NOTES: Resting,report given,will medicate patient for complaint of pain.will endorse to reassess pain .Call light within reach.
[2019-08-11 20:00] VITALS: BP 103/51
--- NOTE | 2019-08-11 20:00 | NUR ---
NURSE NOTES: Patient received in bed , aox4, no acute distress at this time. Needs attended. Call light in reach. Will continue to monitor.
[2019-08-11] MEDS: Dyna-Hex 2% Top Sol 2oz TOPIC SCH (20:47)
--- NOTE | 2019-08-11 22:55 | Pulmonology Progress Note ---
Assessment/Plan Assessment/Plan Pulmonary Progress Note Assessment/Plan IMPRESSION: Concern for joint infection, concern for osteomyelitis, asthma, shortness of breath clinically stable, leukocytosis, possible sepsis with now positive blood cultures for Staphylococcus aureus, paraplegia, diabetes poorly controlled, noncompliance, severe pain. tachycardia PLAN care noted pulse rate improving ativan PRN antibiotics as per ID - custodial linezolid surgical follow up - Dr. Cristobal; medical management for now respiratory as is transfusion incentive spirometry PT follow up repeat labs remains ill needs repeat cbc does not want diabetic meds on PO linezolid for the next 32 days; poor IV access reviewed care with other consultants impression, plan, and exam edited and reviewed in detail care discussed with RN 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 Gastrointestinal/Abdominal: Reports: no symptoms Musculoskeletal: Reports: pain Allergies: Coded Allergies: CEFTRIAXONE (Verified Allergy, Intermediate, SOB, HR-140bpm, face swollen , pt became red, 10/24/15) CODEINE (Verified Allergy, Intermediate, SWELLING, 01/03/11) LATEX (Verified Allergy, Intermediate, SWELLING, 01/03/11) PIPERACILLIN (Verified Allergy, Intermediate, Itching, 08/29/15) 08/29/15 tolerates Ceftaroline TAZOBACTAM (Verified Allergy, Intermediate, Itching, 01/29/15) POLYMYXIN B (Verified Allergy, Mild, Rash, 04/08/16) Suspected allergy reported by VANCOMYCIN (Verified Allergy, Mild, 07/15/14) ASPARAGINASE (Verified Allergy, Unknown, 01/28/14) CEFUROXIME (Unverified Allergy, Unknown, 04/19/16) IRON (Verified Allergy, Unknown, 01/28/14) LATEX, NATURAL RUBBER (Unverified Allergy, Unknown, 06/18/16) All Systems: reviewed and negative except above Subjective reviewed care with ID has pain weak bcx + ID following poor IV access transfusion completed Objective Vital Signs Noted Objective GENERAL: An ill-appearing female. HEENT: Negative. Extraocular movements are grossly intact. NECK: Supple. LUNGS: Moderate breath sounds. No rhonchi or wheezes. CARDIAC: S1, S2. Regular rhythm without murmurs, rubs, or gallops. tachy ABDOMEN: Soft, nontender, nondistended. EXTREMITIES: No cyanosis or clubbing. Drainage noted. Dressings noted. The patient is paraplegic. General Appearance: no acute distress, other - obese HEENT: mucous membranes moist Abdomen: soft, non tender Extremities: no edema Skin: ulcers, other - left knee 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: alert, oriented x 3, responsive Microbiology Date/Time Source Procedure Growth Status 08/07/19 11:00 Blood Blood Culture - Preliminary NO GROWTH AFTER 48 HOURS Resulted Laboratory Tests 08/09/19 10:40: White Blood Count 18.8H, Red Blood Count 3.27L, Hemoglobin 8.8L, Hematocrit 26.5L, Mean Corpuscular Volume 81, Mean Corpuscular Hemoglobin 27.0, Mean Corpuscular Hemoglobin Concent 33.4, Red Cell Distribution Width 13.8, Platelet Count 330, Mean Platelet Volume 6.3L, Neutrophils (%) (Auto) , Lymphocytes (%) ( Auto) , Monocytes (%) (Auto) , Eosinophils (%) (Auto) , Basophils (%) (Auto) , Differential Total Cells Counted 100, Neutrophils % (Manual) 80H, Lymphocytes % (Manual) 17L, Monocytes % (Manual) 3, Eosinophils % (Manual) 0, Basophils % ( Manual) 0, Band Neutrophils 0, Platelet Estimate Adequate, Platelet Morphology Normal, Hypochromasia 2+, Anisocytosis 1+, Spherocytes 1+ Current Medications Medications (Trade) Dose Ordered Sig/Pineda Route PRN Reason Start Time Stop Time Status Last Admin Dose Admin Acetaminophen (Tylenol) 650 mg Q4H PRN ORAL Mild Pain/fever 07/28/19 13:30 08/27/19 13:29 Al Hydroxide/Mg Hydroxide (Mylanta) 30 ml Q4HR PRN ORAL To Patient Comfort 07/28/19 13:30 08/27/19 13:29 Chlorhexidine Gluconate (Nereida-Hex 2%) 1 applic DAILY@1999 TOPIC 08/07/19 20:00 11/05/19 19:59 08/09/19 20:11 Dextrose (Dextrose 50%) 25 ml Q30M PRN IV Hypoglycemia 07/29/19 15:30 10/27/19 15:29 Dextrose (Dextrose 50%) 50 ml Q30M PRN IV Hypoglycemia 07/29/19 15:30 10/27/19 15:29 Diphenhydramine HCl (Benadryl) 50 mg Q4HR PRN IVP Itching 4/18/20 17:00 08/27/19 16:59 08/10/19 07:52 Guaifenesin (Robitussin) 200 mg Q4H PRN ORAL For Cough 07/30/19 23:00 10/28/19 22:59 08/01/19 00:33 Heparin Sodium (Porcine) (Heparin 5000 units/ml) 5,000 units EVERY 12 HOURS SUBQ 07/28/19 21:00 09/11/19 20:59 08/06/19 10:00 Hydromorphone HCl (Dilaudid) 2 mg Q3H PRN IVP Severe Pain (Pain Scale 7-10) 08/05/19 11:45 08/12/19 11:44 08/10/19 07:52 Insulin Aspart (NovoLOG) BEFORE MEALS AND HS SUBQ 07/29/19 16:30 10/27/19 16:29 Linezolid (Zyvox) 600 mg Q12HR ORAL 08/04/19 15:00 09/12/19 23:59 08/09/19 20:11 Ondansetron HCl (Zofran) 4 mg Q4H PRN IVP Nausea & Vomiting 08/07/19 10:15 09/06/19 10:14 08/07/19 11:13 Pantoprazole (Protonix) 40 mg DAILY ORAL 07/29/19 09:00 08/28/19 08:59 08/09/19 08:39 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 Gastrointestinal/Abdominal: Reports: no symptoms Musculoskeletal: Reports: pain Allergies: Coded Allergies: CEFTRIAXONE (Verified Allergy, Intermediate, SOB, HR-140bpm, face swollen , pt became red, 10/24/15) CODEINE (Verified Allergy, Intermediate, SWELLING, 01/03/11) LATEX (Verified Allergy, Intermediate, SWELLING, 01/03/11) PIPERACILLIN (Verified Allergy, Intermediate, Itching, 08/29/15) 08/29/15 tolerates Ceftaroline TAZOBACTAM (Verified Allergy, Intermediate, Itching, 01/29/15) POLYMYXIN B (Verified Allergy, Mild, Rash, 04/08/16) Suspected allergy reported by VANCOMYCIN (Verified Allergy, Mild, 07/15/14) ASPARAGINASE (Verified Allergy, Unknown, 01/28/14) CEFUROXIME (Unverified Allergy, Unknown, 04/19/16) IRON (Verified Allergy, Unknown, 01/28/14) LATEX, NATURAL RUBBER (Unverified Allergy, Unknown, 06/18/16) All Systems: reviewed and negative except above Objective Last 24 Hour Vital Signs Date Time Temp Pulse Resp B/P (MAP) Pulse Ox O2 Delivery O2 Flow Rate FiO2 08/11/19 21:00 Room Air 08/11/19 20:00 96.2 102 22 103/51 (68) 93 08/11/19 12:00 98.2 105 18 99/59 (72) 98 08/11/19 09:00 Room Air 08/11/19 08:00 98.8 115 20 119/82 (94) 96 08/11/19 04:00 98.2 102 20 117/59 (78) 96 08/10/19 23:58 98.6 107 24 131/69 (89) 97 Intake and Output 08/10/19 08/11/19 19:00 07:00 Intake Total 1200 ml 360 ml Output Total 300 ml Balance 1200 ml 60 ml Intake Oral 1200 ml Other 360 ml Stool Total 300 ml # Voids 1 General Appearance: no acute distress, other - obese HEENT: mucous membranes moist Abdomen: soft, non tender Extremities: no edema, other - left knee wound, left arm PICC Skin: ulcers, other - left knee 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: alert, oriented x 3, responsive Current Medications Medications (Trade) Dose Ordered Sig/Pineda Route PRN Reason Start Time Stop Time Status Last Admin Dose Admin Acetaminophen (Tylenol) 650 mg Q4H PRN ORAL Mild Pain/fever 07/28/19 13:30 08/27/19 13:29 Al Hydroxide/Mg Hydroxide (Mylanta) 30 ml Q4HR PRN ORAL To Patient Comfort 07/28/19 13:30 08/27/19 13:29 Chlorhexidine Gluconate (Nereida-Hex 2%) 1 applic DAILY@1999 TOPIC 08/07/19 20:00 11/05/19 19:59 08/11/19 20:47 Dextrose (Dextrose 50%) 25 ml Q30M PRN IV Hypoglycemia 07/29/19 15:30 10/27/19 15:29 Dextrose (Dextrose 50%) 50 ml Q30M PRN IV Hypoglycemia 07/29/19 15:30 10/27/19 15:29 Diphenhydramine HCl (Benadryl) 50 mg Q4HR PRN IVP Itching 07/28/19 17:00 08/27/19 16:59 08/11/19 19:48 Guaifenesin (Robitussin) 200 mg Q4H PRN ORAL For Cough 07/30/19 23:00 10/28/19 22:59 08/01/19 00:33 Heparin Sodium (Porcine) (Heparin 5000 units/ml) 5,000 units EVERY 12 HOURS SUBQ 07/28/19 21:00 09/11/19 20:59 08/06/19 10:00 Hydromorphone HCl (Dilaudid) 2 mg Q3H PRN IVP Severe Pain (Pain Scale 7-10) 08/11/19 14:50 08/18/19 14:49 08/11/19 19:57 Insulin Aspart (NovoLOG) BEFORE MEALS AND HS SUBQ 07/29/19 16:30 10/27/19 16:29 Linezolid (Zyvox) 600 mg Q12HR ORAL 08/04/19 15:00 09/12/19 23:59 08/11/19 20:46 Ondansetron HCl (Zofran) 4 mg Q4H PRN IVP Nausea & Vomiting 08/07/19 10:15 09/06/19 10:14 08/11/19 09:56 Pantoprazole (Protonix) 40 mg DAILY ORAL 07/29/19 09:00 08/28/19 08:59 08/10/19 09:07 Karthik Devine MD August 11, 2019 22:55
[2019-08-12] VITALS: BP 105/67
[2019-08-12 04:00] VITALS: BP 126/68
[2019-08-12] MEDS: DiphenhydrAMINE 50mg/ml Inj IVP PRN ×4 (05:27→23:44)
[2019-08-12] MEDS: NovoLOG Insulin Flexpen SUBQ SCH ×4 (05:29→20:35)
--- NOTE | 2019-08-12 06:40 | NUR ---
NURSE NOTES: Dressing changed on all wounds, pictures taken and uploaded. Patient remains to need minimal assistance in turning. Patient able to turn upper body and assist only on crossing legs when turning.
--- NOTE | 2019-08-12 07:17 | NUR ---
HAND-OFF: Report given to Marin Samano RN.
[2019-08-12 08:00] VITALS: BP 96/59
--- NOTE | 2019-08-12 08:32 | General Progress Note ---
Assessment/Plan Problem List: (1) Dehydration ICD Codes: E86.0 - Dehydration SNOMED: 26979757 (2) Opiate dependence ICD Codes: F11.20 - Opioid dependence, uncomplicated SNOMED: 59938383 (3) Colostomy care ICD Codes: Z43.3 - Encounter for attention to colostomy SNOMED: 162552516 (4) Pain ICD Codes: R52 - Pain, unspecified SNOMED: 81584873 (5) Sepsis ICD Codes: A41.9 - Sepsis SNOMED: 77081508 (6) Infection of left knee ICD Codes: M00.9 - Pyogenic arthritis, unspecified SNOMED: 37395231, 827124485 (7) right hip wound infecion/ulcer/osteo (8) Paraplegia ICD Codes: G82.20 - Paraplegia SNOMED: 12573156 (9) Cellulitis ICD Codes: L03.90 - Cellulitis, unspecified SNOMED: 423650407 (10) Asthma ICD Codes: J45.909 - Unspecified asthma, uncomplicated SNOMED: 043066887 Status: stable Assessment/Plan: cont current rx abx per id picc line 31 more days iv abx echo negative pain rx colostomy care monitor Na level and labs turn q2 wound care per Dr.davdand butler when cleared by ID Subjective ROS Limited/Unobtainable: No Constitutional: Reports: malaise, weakness HEENT: Reports: no symptoms Cardiovascular: Reports: no symptoms Respiratory: Reports: no symptoms Gastrointestinal/Abdominal: Reports: no symptoms Genitourinary: Reports: no symptoms 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: Reports: numbness, pre-existing deficit, weakness Endocrine: Reports: no symptoms Hematologic/Lymphatic: Reports: no symptoms Allergies: Coded Allergies: CEFTRIAXONE (Verified Allergy, Intermediate, SOB, HR-140bpm, face swollen , pt became red, 10/24/15) CODEINE (Verified Allergy, Intermediate, SWELLING, 01/03/11) LATEX (Verified Allergy, Intermediate, SWELLING, 01/03/11) PIPERACILLIN (Verified Allergy, Intermediate, Itching, 08/29/15) 08/29/15 tolerates Ceftaroline TAZOBACTAM (Verified Allergy, Intermediate, Itching, 01/29/15) POLYMYXIN B (Verified Allergy, Mild, Rash, 04/08/16) Suspected allergy reported by VANCOMYCIN (Verified Allergy, Mild, 07/15/14) ASPARAGINASE (Verified Allergy, Unknown, 01/28/14) CEFUROXIME (Unverified Allergy, Unknown, 04/19/16) IRON (Verified Allergy, Unknown, 01/28/14) LATEX, NATURAL RUBBER (Unverified Allergy, Unknown, 06/18/16) All Systems: reviewed and negative except above Subjective no new complaints. stable. pain controlled. cultures with s.aureus. no fever or chills. no sob. ct noted. not cooperative with wound care at times. wbc still high but trending down. d/w night rn Objective Last 24 Hour Vital Signs Date Time Temp Pulse Resp B/P (MAP) Pulse Ox O2 Delivery O2 Flow Rate FiO2 08/12/19 05:58 98.1 08/12/19 04:00 98.1 103 24 126/68 (87) 98 08/12/19 00:00 98.6 109 24 105/67 (80) 96 08/11/19 21:00 Room Air 08/11/19 20:00 96.2 102 22 103/51 (68) 93 08/11/19 12:00 98.2 105 18 99/59 (72) 98 08/11/19 09:00 Room Air Intake and Output 08/11/19 08/12/19 19:00 07:00 Intake Total 1420 ml 360 ml Output Total 200 ml Balance 1420 ml 160 ml Intake Oral 1420 ml Other 360 ml Stool Total 200 ml # Voids 2 Height (Feet): 5 Height (Inches): 5.00 Weight (Pounds): 204 Objective left knee swelling General Appearance: WD/WN, alert EENT: normal ENT inspection Neck: non-tender, normal alignment, supple Cardiovascular: normal peripheral pulses, normal rate, regular rhythm Respiratory/Chest: chest wall non-tender, lungs clear, normal breath sounds, no respiratory distress Abdomen: normal bowel sounds, non tender, soft, no organomegaly, no mass Edema: no edema noted Arm (L), no edema noted Arm (R), no edema noted Leg (L), no edema noted Leg (R), no edema noted Pedal (L), no edema noted Pedal (R), no edema noted Generalized Edema: trace edema Neurologic: no motor/sensory deficits, alert, motor weakness Objective left knee swelling Jacques Chanel MD August 12, 2019 08:32
[2019-08-12] MEDS: Heparin 5000 units/ml inj SUBQ SCH ×2 (09:00→20:35)
--- NOTE | 2019-08-12 11:00 | NUR ---
NURSE NOTES: PT AXOX4, CALM, RESTING IN BED. PT EDUCATED ON PRN SCHEDULE OF DILAUDID. PT VERBALIZED UNDERSTANDING. IN NO APPARENT DISTRESS AT THIS TIME. BED IN LOWEST POSITION WITH BEDSIDE RAILS X3 RAISED. CALL LIGHT WITHIN REACH. WILL CONTINUE TO MONITOR.
[2019-08-12 12:00] VITALS: BP 99/62
--- NOTE | 2019-08-12 13:07 | Infectious Diseases Prog Note ---
"Assessment/Plan Assessment/Plan A 1. MRSA sepsis 2. left knee possible septic arthritis | osteomyelitis 3. paraplegia 4. leucocytosis 5. renal failure improving 6. Hyponatremia P 1. continue linezolid X 31 days Subjective ROS Limited/Unobtainable: Yes Allergies: Coded Allergies: CEFTRIAXONE (Verified Allergy, Intermediate, SOB, HR-140bpm, face swollen , pt became red, 10/24/15) CODEINE (Verified Allergy, Intermediate, SWELLING, 01/03/11) LATEX (Verified Allergy, Intermediate, SWELLING, 01/03/11) PIPERACILLIN (Verified Allergy, Intermediate, Itching, 08/29/15) 08/29/15 tolerates Ceftaroline TAZOBACTAM (Verified Allergy, Intermediate, Itching, 01/29/15) POLYMYXIN B (Verified Allergy, Mild, Rash, 04/08/16) Suspected allergy reported by VANCOMYCIN (Verified Allergy, Mild, 07/15/14) ASPARAGINASE (Verified Allergy, Unknown, 01/28/14) CEFUROXIME (Unverified Allergy, Unknown, 04/19/16) IRON (Verified Allergy, Unknown, 01/28/14) LATEX, NATURAL RUBBER (Unverified Allergy, Unknown, 06/18/16) Objective Vital Signs Last 24 Hour Vital Signs Date Time Temp Pulse Resp B/P (MAP) Pulse Ox O2 Delivery O2 Flow Rate FiO2 08/12/19 12:00 98.6 98 19 99/62 (74) 97 08/12/19 09:00 Room Air 08/12/19 08:00 98.4 109 20 96/59 (71) 98 08/12/19 05:58 98.1 08/12/19 04:00 98.1 103 24 126/68 (87) 98 08/12/19 00:00 98.6 109 24 105/67 (80) 96 08/11/19 21:00 Room Air 08/11/19 20:00 96.2 102 22 103/51 (68) 93 Height (Feet): 5 Height (Inches): 5.00 Weight (Pounds): 204 General Appearance: no acute distress HEENT: mucous membranes moist Respiratory/Chest: lungs clear Cardiovascular: tachycardia Abdomen: soft, non tender Extremities: other - legs edema Skin: ulcers, other - left knee 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: other - sleeping Current Medications Medications (Trade) Dose Ordered Sig/Pineda Route PRN Reason Start Time Stop Time Status Last Admin Dose Admin Acetaminophen (Tylenol) 650 mg Q4H PRN ORAL Mild Pain/fever 07/28/19 13:30 08/27/19 13:29 Al Hydroxide/Mg Hydroxide (Mylanta) 30 ml Q4HR PRN ORAL To Patient Comfort 07/28/19 13:30 08/27/19 13:29 Chlorhexidine Gluconate (Nereida-Hex 2%) 1 applic DAILY@2000 TOPIC 08/07/19 20:00 11/05/19 19:59 08/11/19 20:47 Dextrose (Dextrose 50%) 25 ml Q30M PRN IV Hypoglycemia 07/29/19 15:30 10/27/19 15:29 Dextrose (Dextrose 50%) 50 ml Q30M PRN IV Hypoglycemia 07/29/19 15:30 10/27/19 15:29 Diphenhydramine HCl (Benadryl) 50 mg Q4HR PRN IVP Itching 07/28/19 17:00 08/27/19 16:59 08/12/19 11:56 Guaifenesin (Robitussin) 200 mg Q4H PRN ORAL For Cough 07/30/19 23:00 10/28/19 22:59 08/01/19 00:33 Heparin Sodium (Porcine) (Heparin 5000 units/ml) 5,000 units EVERY 12 HOURS SUBQ 07/28/19 21:00 09/11/19 20:59 08/06/19 10:00 Hydromorphone HCl (Dilaudid) 2 mg Q3H PRN IVP Severe Pain (Pain Scale 7-10) 08/11/19 14:50 08/18/19 14:49 08/12/19 11:56 Insulin Aspart (NovoLOG) BEFORE MEALS AND HS SUBQ 07/29/19 16:30 10/27/19 16:29 Linezolid (Zyvox) 600 mg Q12HR ORAL 08/04/19 15:00 09/12/19 23:59 08/12/19 08:57 Ondansetron HCl (Zofran) 4 mg Q4H PRN IVP Nausea & Vomiting 08/07/19 10:15 09/06/19 10:14 08/12/19 08:56 Pantoprazole (Protonix) 40 mg DAILY ORAL 07/29/19 09:00 08/28/19 08:59 08/12/19 08:57 Vaughn Juárez MD August 12, 2019 13:07"
[2019-08-12 16:00] VITALS: BP 107/63
--- NOTE | 2019-08-12 18:12 | Pulmonology Progress Note ---
Assessment/Plan Assessment/Plan Pulmonary Progress Note Assessment/Plan IMPRESSION: Concern for joint infection, concern for osteomyelitis, asthma, shortness of breath clinically stable, leukocytosis, possible sepsis with now positive blood cultures for Staphylococcus aureus, paraplegia, diabetes poorly controlled, noncompliance, severe pain. tachycardia No new complaints PLAN care noted pulse rate improving ativan PRN antibiotics as per ID - fpc linezolid surgical follow up - Dr. Cristobal; medical management for now respiratory as is transfusion incentive spirometry PT follow up repeat labs remains ill needs repeat cbc does not want diabetic meds on PO linezolid for the next 32 days; poor IV access reviewed care with other consultants impression, plan, and exam edited and reviewed in detail care discussed with RN 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 Gastrointestinal/Abdominal: Reports: no symptoms Musculoskeletal: Reports: pain Allergies: Coded Allergies: CEFTRIAXONE (Verified Allergy, Intermediate, SOB, HR-140bpm, face swollen , pt became red, 10/24/15) CODEINE (Verified Allergy, Intermediate, SWELLING, 01/03/11) LATEX (Verified Allergy, Intermediate, SWELLING, 01/03/11) PIPERACILLIN (Verified Allergy, Intermediate, Itching, 08/29/15) 08/29/15 tolerates Ceftaroline TAZOBACTAM (Verified Allergy, Intermediate, Itching, 01/29/15) POLYMYXIN B (Verified Allergy, Mild, Rash, 04/08/16) Suspected allergy reported by VANCOMYCIN (Verified Allergy, Mild, 07/15/14) ASPARAGINASE (Verified Allergy, Unknown, 01/28/14) CEFUROXIME (Unverified Allergy, Unknown, 04/19/16) IRON (Verified Allergy, Unknown, 01/28/14) LATEX, NATURAL RUBBER (Unverified Allergy, Unknown, 06/18/16) All Systems: reviewed and negative except above Subjective reviewed care with ID has pain weak bcx + ID following poor IV access transfusion completed Objective Vital Signs Noted Objective GENERAL: An ill-appearing female. HEENT: Negative. Extraocular movements are grossly intact. NECK: Supple. LUNGS: Moderate breath sounds. No rhonchi or wheezes. CARDIAC: S1, S2. Regular rhythm without murmurs, rubs, or gallops. tachy ABDOMEN: Soft, nontender, nondistended. EXTREMITIES: No cyanosis or clubbing. Drainage noted. Dressings noted. The patient is paraplegic. General Appearance: no acute distress, other - obese HEENT: mucous membranes moist Abdomen: soft, non tender Extremities: no edema Skin: ulcers, other - left knee 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: alert, oriented x 3, responsive Microbiology Date/Time Source Procedure Growth Status 08/07/19 11:00 Blood Blood Culture - Preliminary NO GROWTH AFTER 48 HOURS Resulted Laboratory Tests Noted 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 Gastrointestinal/Abdominal: Reports: no symptoms Musculoskeletal: Reports: pain Allergies: Coded Allergies: CEFTRIAXONE (Verified Allergy, Intermediate, SOB, HR-140bpm, face swollen , pt became red, 10/24/15) CODEINE (Verified Allergy, Intermediate, SWELLING, 01/03/11) LATEX (Verified Allergy, Intermediate, SWELLING, 01/03/11) PIPERACILLIN (Verified Allergy, Intermediate, Itching, 08/29/15) 08/29/15 tolerates Ceftaroline TAZOBACTAM (Verified Allergy, Intermediate, Itching, 01/29/15) POLYMYXIN B (Verified Allergy, Mild, Rash, 04/08/16) Suspected allergy reported by VANCOMYCIN (Verified Allergy, Mild, 07/15/14) ASPARAGINASE (Verified Allergy, Unknown, 01/28/14) CEFUROXIME (Unverified Allergy, Unknown, 04/19/16) IRON (Verified Allergy, Unknown, 01/28/14) LATEX, NATURAL RUBBER (Unverified Allergy, Unknown, 06/18/16) All Systems: reviewed and negative except above Objective Last 24 Hour Vital Signs Date Time Temp Pulse Resp B/P (MAP) Pulse Ox O2 Delivery O2 Flow Rate FiO2 08/12/19 16:00 98.6 73 17 107/63 (78) 97 08/12/19 12:00 98.6 98 19 99/62 (74) 97 08/12/19 09:00 Room Air 08/12/19 08:00 98.4 109 20 96/59 (71) 98 08/12/19 05:58 98.1 08/12/19 04:00 98.1 103 24 126/68 (87) 98 08/12/19 00:00 98.6 109 24 105/67 (80) 96 08/11/19 21:00 Room Air 5/2/20 20:00 96.2 102 22 103/51 (68) 93 Intake and Output 08/11/19 08/12/19 19:00 07:00 Intake Total 1420 ml 360 ml Output Total 200 ml Balance 1420 ml 160 ml Intake Oral 1420 ml Other 360 ml Stool Total 200 ml # Voids 2 General Appearance: no acute distress HEENT: mucous membranes moist Abdomen: soft, non tender Extremities: other - legs edema Skin: ulcers, other - left knee 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: other - sleeping Current Medications Medications (Trade) Dose Ordered Sig/Pineda Route PRN Reason Start Time Stop Time Status Last Admin Dose Admin Acetaminophen (Tylenol) 650 mg Q4H PRN ORAL Mild Pain/fever 07/28/19 13:30 08/27/19 13:29 Al Hydroxide/Mg Hydroxide (Mylanta) 30 ml Q4HR PRN ORAL To Patient Comfort 07/28/19 13:30 08/27/19 13:29 Chlorhexidine Gluconate (Nereida-Hex 2%) 1 applic DAILY@2000 TOPIC 08/07/19 20:00 11/05/19 19:59 08/11/19 20:47 Dextrose (Dextrose 50%) 25 ml Q30M PRN IV Hypoglycemia 07/29/19 15:30 10/27/19 15:29 Dextrose (Dextrose 50%) 50 ml Q30M PRN IV Hypoglycemia 07/29/19 15:30 10/27/19 15:29 Diphenhydramine HCl (Benadryl) 50 mg Q4HR PRN IVP Itching 07/28/19 17:00 08/27/19 16:59 08/12/19 16:36 Guaifenesin (Robitussin) 200 mg Q4H PRN ORAL For Cough 07/30/19 23:00 10/28/19 22:59 08/01/19 00:33 Heparin Sodium (Porcine) (Heparin 5000 units/ml) 5,000 units EVERY 12 HOURS SUBQ 07/28/19 21:00 09/11/19 20:59 08/06/19 10:00 Hydromorphone HCl (Dilaudid) 2 mg Q3H PRN IVP Severe Pain (Pain Scale 7-10) 08/11/19 14:50 08/18/19 14:49 08/12/19 16:37 Insulin Aspart (NovoLOG) BEFORE MEALS AND HS SUBQ 07/29/19 16:30 10/27/19 16:29 Linezolid (Zyvox) 600 mg Q12HR ORAL 08/04/19 15:00 09/12/19 23:59 08/12/19 08:57 Ondansetron HCl (Zofran) 4 mg Q4H PRN IVP Nausea & Vomiting 08/07/19 10:15 09/06/19 10:14 08/12/19 16:36 Pantoprazole (Protonix) 40 mg DAILY ORAL 07/29/19 09:00 08/28/19 08:59 08/12/19 08:57 Karthik Devine MD August 12, 2019 18:11
--- NOTE | 2019-08-12 19:18 | NUR ---
HAND-OFF: Report given to Krystal MORALES RN.
--- NOTE | 2019-08-12 19:20 | NUR ---
NURSE NOTES: Pt. received from ANISA Funes. Pt. AAOx4, on room air, breathing even and unlabored, complaints of back pain and will follow with pain interventions as ordered. PICC CHRISTIN noted, dressing clean dry and intact; hep locked. Bed is low and locked, side rails x2 up, bed alarm active, and call light is in reach. Will continue with plan of care.
[2019-08-12 20:00] VITALS: BP 109/55
[2019-08-12] MEDS: Dyna-Hex 2% Top Sol 2oz TOPIC SCH (20:30)
[2019-08-13] VITALS: BP 122/60
[2019-08-13 04:00] VITALS: BP 97/60
[2019-08-13 04:24] LABS: BASOPHILS % (AUTO) 0.3 % (0.0-2.0); EOSINOPHILS % (AUTO) 1.1 % (0.0-3.0); HEMATOCRIT 24.6 % (37.0-47.0); LYMPHOCYTES % (AUTO) 12.6 % (20.0-45.0); MEAN CORPUSCULAR VOLUME 82 FL (80-99); MONOCYTES % (AUTO) 3.9 % (1.0-10.0); NEUTROPHILS % (AUTO) 82.1 % (45.0-75.0); PLATELET COUNT 315 K/UL (150-450); RED CELL DISTRIBUTION WIDTH 14.5 % (11.6-14.8); WHITE BLOOD COUNT 15.2 K/UL (4.8-10.8)
[2019-08-13 04:43] LABS: ALANINE AMINOTRANSFERASE 7 U/L (12-78); ALBUMIN 1.4 G/DL (3.4-5.0); ALBUMIN/GLOBULIN RATIO 0.2 (1.0-2.7); ALKALINE PHOSPHATASE 133 U/L (46-116); ANION GAP 8 mmol/L (5-15); ASPARTATE AMINO TRANSFERASE 16 U/L (15-37); BILIRUBIN,TOTAL 0.5 MG/DL (0.2-1.0); BLOOD UREA NITROGEN 28 mg/dL (7-18); CALCIUM 8.8 MG/DL (8.5-10.1); CARBON DIOXIDE 23 MMOL/L (21-32); CHLORIDE 98 MMOL/L (98-107); CREATININE 0.9 MG/DL (0.55-1.30); POTASSIUM 4.6 MMOL/L (3.5-5.1); SODIUM 129 MMOL/L (136-145)
[2019-08-13] MEDS: NovoLOG Insulin Flexpen SUBQ SCH ×4 (06:30→20:38)
--- NOTE | 2019-08-13 06:30 | NUR ---
NURSE NOTES: pt. wound dressings changed, pt. tolerated well.
--- NOTE | 2019-08-13 07:30 | NUR ---
NURSE NOTES: Received patient in bed. Awake, A/O x4. Patient denies pain at this time. On room air. PICC line in the Left upper arm, dressing dry and intact. Sitting in semi-fowlers, bed low and locked, call light within reach.
--- NOTE | 2019-08-13 07:30 | NUR ---
HAND-OFF: Report given to ANISA Yu.
[2019-08-13 08:00] VITALS: BP 103/58
[2019-08-13] MEDS: DiphenhydrAMINE 50mg/ml Inj IVP PRN ×4 (08:09→20:37)
--- NOTE | 2019-08-13 08:50 | Pulmonology Progress Note ---
Assessment/Plan Assessment/Plan IMPRESSION: Concern for joint infection, concern for osteomyelitis, asthma, shortness of breath clinically stable, leukocytosis, possible sepsis with now positive blood cultures for Staphylococcus aureus, paraplegia, diabetes poorly controlled, noncompliance, severe pain. tachycardia - better hyponatremia PLAN care noted antibiotics as per ID - intermediate teacher linezolid- 30 days remaining surgical follow up - Dr. Cristobal; medical management for now respiratory as is monitor HH incentive spirometry PT follow up repeat labs does not want diabetic meds dc planning to home with outpatient monitoring of labs reviewed care with other consultants impression, plan, and exam edited and reviewed in detail care discussed with RN 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 Gastrointestinal/Abdominal: Reports: no symptoms Musculoskeletal: Reports: pain Allergies: Coded Allergies: CEFTRIAXONE (Verified Allergy, Intermediate, SOB, HR-140bpm, face swollen , pt became red, 10/24/15) CODEINE (Verified Allergy, Intermediate, SWELLING, 01/03/11) LATEX (Verified Allergy, Intermediate, SWELLING, 01/03/11) PIPERACILLIN (Verified Allergy, Intermediate, Itching, 08/29/15) 08/29/15 tolerates Ceftaroline TAZOBACTAM (Verified Allergy, Intermediate, Itching, 01/29/15) POLYMYXIN B (Verified Allergy, Mild, Rash, 04/08/16) Suspected allergy reported by VANCOMYCIN (Verified Allergy, Mild, 07/15/14) ASPARAGINASE (Verified Allergy, Unknown, 01/28/14) CEFUROXIME (Unverified Allergy, Unknown, 04/19/16) IRON (Verified Allergy, Unknown, 01/28/14) LATEX, NATURAL RUBBER (Unverified Allergy, Unknown, 06/18/16) All Systems: reviewed and negative except above Subjective reviewed care over the weekend has pain weak bcx + (none new) echo negative poor IV access Objective Last 24 Hour Vital Signs Date Time Temp Pulse Resp B/P (MAP) Pulse Ox O2 Delivery O2 Flow Rate FiO2 08/13/19 04:35 99.0 08/13/19 04:00 99.0 97 17 97/60 (72) 95 08/13/19 00:00 98.1 93 18 122/60 (80) 94 08/12/19 21:00 Room Air 08/12/19 20:00 98.2 98 17 109/55 (73) 93 08/12/19 16:00 98.6 73 17 107/63 (78) 97 08/12/19 12:00 98.6 98 19 99/62 (74) 97 08/12/19 09:00 Room Air Intake and Output 08/12/19 08/13/19 19:00 07:00 Intake Total 1500 ml 1000 ml Output Total 400 ml Balance 1500 ml 600 ml Intake Oral 1500 ml 1000 ml Stool Total 400 ml # Voids 1 # Bowel Movements 1 Objective GENERAL: An ill-appearing female. HEENT: Negative. Extraocular movements are grossly intact. NECK: Supple. LUNGS: Moderate breath sounds. No rhonchi or wheezes. CARDIAC: S1, S2. Regular rhythm without murmurs, rubs, or gallops. tachy ABDOMEN: Soft, nontender, nondistended. EXTREMITIES: No cyanosis or clubbing. Drainage noted. Dressings noted. The patient is paraplegic. General Appearance: no acute distress HEENT: mucous membranes moist Abdomen: soft, non tender Extremities: other - legs edema Skin: ulcers, other - left knee 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: other - sleeping Laboratory Tests 08/13/19 04:00: White Blood Count 15.2H, Red Blood Count 3.00L, Hemoglobin 8.0L, Hematocrit 24.6L, Mean Corpuscular Volume 82, Mean Corpuscular Hemoglobin 26.7L, Mean Corpuscular Hemoglobin Concent 32.6, Red Cell Distribution Width 14.5, Platelet Count 315, Mean Platelet Volume 6.1L, Neutrophils (%) (Auto) 82.1H, Lymphocytes (%) (Auto) 12.6L, Monocytes (%) (Auto) 3.9, Eosinophils (%) (Auto) 1.1, Basophils (%) (Auto) 0.3, Sodium Level 129L, Potassium Level 4.6, Chloride Level 98, Carbon Dioxide Level 23, Anion Gap 8, Blood Urea Nitrogen 28H, Creatinine 0.9, Estimat Glomerular Filtration Rate > 60, Glucose Level 142H, Calcium Level 8.8, Total Bilirubin 0.5, Aspartate Amino Transf (AST/SGOT) 16, Alanine Aminotransferase (ALT/SGPT) 7L, Alkaline Phosphatase 133H, Total Protein 7.7, Albumin 1.4L, Globulin 6.3, Albumin/Globulin Ratio 0.2L Current Medications Medications (Trade) Dose Ordered Sig/Pineda Route PRN Reason Start Time Stop Time Status Last Admin Dose Admin Acetaminophen (Tylenol) 650 mg Q4H PRN ORAL Mild Pain/fever 07/28/19 13:30 08/27/19 13:29 Al Hydroxide/Mg Hydroxide (Mylanta) 30 ml Q4HR PRN ORAL To Patient Comfort 07/28/19 13:30 08/27/19 13:29 Chlorhexidine Gluconate (Nereida-Hex 2%) 1 applic DAILY@1999 TOPIC 08/07/19 20:00 11/05/19 19:59 08/12/19 20:30 Dextrose (Dextrose 50%) 25 ml Q30M PRN IV Hypoglycemia 07/29/19 15:30 10/27/19 15:29 Dextrose (Dextrose 50%) 50 ml Q30M PRN IV Hypoglycemia 07/29/19 15:30 10/27/19 15:29 Diphenhydramine HCl (Benadryl) 50 mg Q4HR PRN IVP Itching 07/28/19 17:00 08/27/19 16:59 08/13/19 08:09 Guaifenesin (Robitussin) 200 mg Q4H PRN ORAL For Cough 07/30/19 23:00 10/28/19 22:59 08/01/19 00:33 Heparin Sodium (Porcine) (Heparin 5000 units/ml) 5,000 units EVERY 12 HOURS SUBQ 07/28/19 21:00 09/11/19 20:59 08/06/19 10:00 Hydromorphone HCl (Dilaudid) 2 mg Q3H PRN IVP Severe Pain (Pain Scale 7-10) 08/11/19 14:50 08/18/19 14:49 08/13/19 08:09 Insulin Aspart (NovoLOG) BEFORE MEALS AND HS SUBQ 07/29/19 16:30 10/27/19 16:29 Linezolid (Zyvox) 600 mg Q12HR ORAL 08/04/19 15:00 09/12/19 23:59 08/13/19 08:09 Ondansetron HCl (Zofran) 4 mg Q4H PRN IVP Nausea & Vomiting 08/07/19 10:15 09/06/19 10:14 08/13/19 08:09 Pantoprazole (Protonix) 40 mg DAILY ORAL 07/29/19 09:00 08/28/19 08:59 08/13/19 08:09 Thanh Glover MD August 13, 2019 08:50
[2019-08-13] MEDS: Heparin 5000 units/ml inj SUBQ SCH ×2 (09:00→20:38)
--- NOTE | 2019-08-13 09:00 | NUR ---
NURSE NOTES: Patient refused heparin injection. Patient re-educated on use, risks and benefits of medication. Refused x3.
--- NOTE | 2019-08-13 11:06 | Infectious Diseases Prog Note ---
"Assessment/Plan Assessment/Plan antibiotics : linezolid A 1. MRSA sepsis 2. left knee possible septic arthritis | osteomyelitis 3. paraplegia 4. leucocytosis improving 5. renal failure improving P 1. continue linezolid 30 more days 2. cbc, bmp, lft q weekly 3. will follow up cultures Subjective Constitutional: Denies: fever, chills Respiratory: Denies: shortness of breath, dry cough Gastrointestinal/Abdominal: Reports: nausea, vomiting; Denies: diarrhea Musculoskeletal: Reports: pain - decreased in abdomen Allergies: Coded Allergies: CEFTRIAXONE (Verified Allergy, Intermediate, SOB, HR-140bpm, face swollen , pt became red, 10/24/15) CODEINE (Verified Allergy, Intermediate, SWELLING, 01/03/11) LATEX (Verified Allergy, Intermediate, SWELLING, 01/03/11) PIPERACILLIN (Verified Allergy, Intermediate, Itching, 08/29/15) 08/29/15 tolerates Ceftaroline TAZOBACTAM (Verified Allergy, Intermediate, Itching, 01/29/15) POLYMYXIN B (Verified Allergy, Mild, Rash, 04/08/16) Suspected allergy reported by VANCOMYCIN (Verified Allergy, Mild, 07/15/14) ASPARAGINASE (Verified Allergy, Unknown, 01/28/14) CEFUROXIME (Unverified Allergy, Unknown, 04/19/16) IRON (Verified Allergy, Unknown, 01/28/14) LATEX, NATURAL RUBBER (Unverified Allergy, Unknown, 06/18/16) Objective Vital Signs Last 24 Hour Vital Signs Date Time Temp Pulse Resp B/P (MAP) Pulse Ox O2 Delivery O2 Flow Rate FiO2 08/13/19 09:00 Room Air 08/13/19 08:00 97.3 104 16 103/58 (73) 97 08/13/19 04:35 99.0 08/13/19 04:00 99.0 97 17 97/60 (72) 95 08/13/19 00:00 98.1 93 18 122/60 (80) 94 08/12/19 21:00 Room Air 08/12/19 20:00 98.2 98 17 109/55 (73) 93 08/12/19 16:00 98.6 73 17 107/63 (78) 97 08/12/19 12:00 98.6 98 19 99/62 (74) 97 Height (Feet): 5 Height (Inches): 5.00 Weight (Pounds): 204 Respiratory/Chest: lungs clear Cardiovascular: normal rate, regular rhythm, no gallop/murmur Abdomen: soft, non tender Extremities: no edema, other - left knee wound clean, left arm PICC Laboratory Tests Test 08/13/19 04:00 White Blood Count 15.2 K/UL (4.8-10.8) H Red Blood Count 3.00 M/UL (4.20-5.40) L Hemoglobin 8.0 G/DL (12.0-16.0) L Hematocrit 24.6 % (37.0-47.0) L Mean Corpuscular Volume 82 FL (80-99) Mean Corpuscular Hemoglobin 26.7 PG (27.0-31.0) L Mean Corpuscular Hemoglobin Concent 32.6 G/DL (32.0-36.0) Red Cell Distribution Width 14.5 % (11.6-14.8) Platelet Count 315 K/UL (150-450) Mean Platelet Volume 6.1 FL (6.5-10.1) L Neutrophils (%) (Auto) 82.1 % (45.0-75.0) H Lymphocytes (%) (Auto) 12.6 % (20.0-45.0) L Monocytes (%) (Auto) 3.9 % (1.0-10.0) Eosinophils (%) (Auto) 1.1 % (0.0-3.0) Basophils (%) (Auto) 0.3 % (0.0-2.0) Sodium Level 129 MMOL/L (136-145) L Potassium Level 4.6 MMOL/L (3.5-5.1) Chloride Level 98 MMOL/L (98-107) Carbon Dioxide Level 23 MMOL/L (21-32) Anion Gap 8 mmol/L (5-15) Blood Urea Nitrogen 28 mg/dL (7-18) H Creatinine 0.9 MG/DL (0.55-1.30) Estimat Glomerular Filtration Rate > 60 mL/min (>60) Glucose Level 142 MG/DL (74-106) H Calcium Level 8.8 MG/DL (8.5-10.1) Total Bilirubin 0.5 MG/DL (0.2-1.0) Aspartate Amino Transf (AST/SGOT) 16 U/L (15-37) Alanine Aminotransferase (ALT/SGPT) 7 U/L (12-78) L Alkaline Phosphatase 133 U/L (46-116) H Total Protein 7.7 G/DL (6.4-8.2) Albumin 1.4 G/DL (3.4-5.0) L Globulin 6.3 g/dL Albumin/Globulin Ratio 0.2 (1.0-2.7) L Current Medications Medications (Trade) Dose Ordered Sig/Pineda Route PRN Reason Start Time Stop Time Status Last Admin Dose Admin Acetaminophen (Tylenol) 650 mg Q4H PRN ORAL Mild Pain/fever 07/28/19 13:30 08/27/19 13:29 Al Hydroxide/Mg Hydroxide (Mylanta) 30 ml Q4HR PRN ORAL To Patient Comfort 07/28/19 13:30 08/27/19 13:29 Chlorhexidine Gluconate (Nereida-Hex 2%) 1 applic DAILY@2000 TOPIC 08/07/19 20:00 11/05/19 19:59 08/12/19 20:30 Dextrose (Dextrose 50%) 25 ml Q30M PRN IV Hypoglycemia 07/29/19 15:30 10/27/19 15:29 Dextrose (Dextrose 50%) 50 ml Q30M PRN IV Hypoglycemia 07/29/19 15:30 10/27/19 15:29 Diphenhydramine HCl (Benadryl) 50 mg Q4HR PRN IVP Itching 07/28/19 17:00 08/27/19 16:59 08/13/19 08:09 Guaifenesin (Robitussin) 200 mg Q4H PRN ORAL For Cough 07/30/19 23:00 10/28/19 22:59 08/01/19 00:33 Heparin Sodium (Porcine) (Heparin 5000 units/ml) 5,000 units EVERY 12 HOURS SUBQ 07/28/19 21:00 09/11/19 20:59 08/06/19 10:00 Hydromorphone HCl (Dilaudid) 2 mg Q3H PRN IVP Severe Pain (Pain Scale 7-10) 08/11/19 14:50 08/18/19 14:49 08/13/19 08:09 Insulin Aspart (NovoLOG) BEFORE MEALS AND HS SUBQ 07/29/19 16:30 10/27/19 16:29 Linezolid (Zyvox) 600 mg Q12HR ORAL 08/04/19 15:00 09/12/19 23:59 08/13/19 08:09 Ondansetron HCl (Zofran) 4 mg Q4H PRN IVP Nausea & Vomiting 08/07/19 10:15 09/06/19 10:14 08/13/19 08:09 Pantoprazole (Protonix) 40 mg DAILY ORAL 07/29/19 09:00 08/28/19 08:59 08/13/19 08:09 Deng Reyes MD August 13, 2019 11:06"
[2019-08-13 12:00] VITALS: BP 102/56
--- NOTE | 2019-08-13 13:49 | NUR ---
CASE MANAGEMENT:REVIEW SI;RENAL FAILURE. MRSA SEPSIS. CELLULITIS. PERSISTENT BACTEREMIA. RT HIP WOUND INFECTION/ULCER/OSTEO. 99.0 104 18 97/60 94% ON RA WBC 15.2 H/H 8.0/24.6 NA 129 BUN 28 ALK PHOS 133 ALB 1.4 IS;ZYVOX PO A12 HRS DILAUDID IV Q3 HRS PRN PROTONIX PO QD SYLVIA-HEX TOP QD MED SRUG STATUS DCP;FROM HOME PLAN;DC PLANNING HOME WITH W/OPT LABS MONITORING
--- NOTE | 2019-08-13 15:56 | General Progress Note ---
Assessment/Plan Problem List: (1) Dehydration ICD Codes: E86.0 - Dehydration SNOMED: 65992511 (2) Opiate dependence ICD Codes: F11.20 - Opioid dependence, uncomplicated SNOMED: 25730426 (3) Colostomy care ICD Codes: Z43.3 - Encounter for attention to colostomy SNOMED: 607471530 (4) Pain ICD Codes: R52 - Pain, unspecified SNOMED: 52240097 (5) Sepsis ICD Codes: A41.9 - Sepsis SNOMED: 87653945 (6) Infection of left knee ICD Codes: M00.9 - Pyogenic arthritis, unspecified SNOMED: 41945952, 872893408 (7) right hip wound infecion/ulcer/osteo (8) Paraplegia ICD Codes: G82.20 - Paraplegia SNOMED: 44431431 (9) Cellulitis ICD Codes: L03.90 - Cellulitis, unspecified SNOMED: 367429765 (10) Asthma ICD Codes: J45.909 - Unspecified asthma, uncomplicated SNOMED: 539070486 Status: stable Assessment/Plan: cont current rx abx per id picc line 30 more days iv abx echo negative pain rx colostomy care monitor Na level and labs turn q2 wound care per Dr.davdand butler planning in process Subjective ROS Limited/Unobtainable: No Constitutional: Reports: malaise, weakness HEENT: Reports: no symptoms Cardiovascular: Reports: no symptoms Respiratory: Reports: no symptoms Gastrointestinal/Abdominal: Reports: no symptoms Genitourinary: Reports: no symptoms 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: Reports: pre-existing deficit Endocrine: Reports: no symptoms Hematologic/Lymphatic: Reports: anemia Allergies: Coded Allergies: CEFTRIAXONE (Verified Allergy, Intermediate, SOB, HR-140bpm, face swollen , pt became red, 10/24/15) CODEINE (Verified Allergy, Intermediate, SWELLING, 01/03/11) LATEX (Verified Allergy, Intermediate, SWELLING, 01/03/11) PIPERACILLIN (Verified Allergy, Intermediate, Itching, 08/29/15) 08/29/15 tolerates Ceftaroline TAZOBACTAM (Verified Allergy, Intermediate, Itching, 01/29/15) POLYMYXIN B (Verified Allergy, Mild, Rash, 04/08/16) Suspected allergy reported by VANCOMYCIN (Verified Allergy, Mild, 07/15/14) ASPARAGINASE (Verified Allergy, Unknown, 01/28/14) CEFUROXIME (Unverified Allergy, Unknown, 04/19/16) IRON (Verified Allergy, Unknown, 01/28/14) LATEX, NATURAL RUBBER (Unverified Allergy, Unknown, 06/18/16) All Systems: reviewed and negative except above Subjective no new complaints. stable. pain controlled. cultures with s.aureus. no fever or chills. no sob. ct noted. not cooperative with wound care at times. wbc still high but trending down. d/w night rn asking to go home Objective Last 24 Hour Vital Signs Date Time Temp Pulse Resp B/P (MAP) Pulse Ox O2 Delivery O2 Flow Rate FiO2 08/13/19 12:00 97.3 102 19 102/56 (71) 97 08/13/19 09:00 Room Air 08/13/19 08:00 97.3 104 16 103/58 (73) 97 08/13/19 04:35 99.0 08/13/19 04:00 99.0 97 17 97/60 (72) 95 08/13/19 00:00 98.1 93 18 122/60 (80) 94 08/12/19 21:00 Room Air 08/12/19 20:00 98.2 98 17 109/55 (73) 93 08/12/19 16:00 98.6 73 17 107/63 (78) 97 Intake and Output 08/12/19 08/13/19 19:00 07:00 Intake Total 1500 ml 1000 ml Output Total 400 ml Balance 1500 ml 600 ml Intake Oral 1500 ml 1000 ml Stool Total 400 ml # Voids 1 # Bowel Movements 1 Laboratory Tests 08/13/19 04:00: White Blood Count 15.2H, Red Blood Count 3.00L, Hemoglobin 8.0L, Hematocrit 24.6L, Mean Corpuscular Volume 82, Mean Corpuscular Hemoglobin 26.7L, Mean Corpuscular Hemoglobin Concent 32.6, Red Cell Distribution Width 14.5, Platelet Count 315, Mean Platelet Volume 6.1L, Neutrophils (%) (Auto) 82.1H, Lymphocytes (%) (Auto) 12.6L, Monocytes (%) (Auto) 3.9, Eosinophils (%) (Auto) 1.1, Basophils (%) (Auto) 0.3, Sodium Level 129L, Potassium Level 4.6, Chloride Level 98, Carbon Dioxide Level 23, Anion Gap 8, Blood Urea Nitrogen 28H, Creatinine 0.9, Estimat Glomerular Filtration Rate > 60, Glucose Level 142H, Calcium Level 8.8, Total Bilirubin 0.5, Aspartate Amino Transf (AST/SGOT) 16, Alanine Aminotransferase (ALT/SGPT) 7L, Alkaline Phosphatase 133H, Total Protein 7.7, Albumin 1.4L, Globulin 6.3, Albumin/Globulin Ratio 0.2L Height (Feet): 5 Height (Inches): 5.00 Weight (Pounds): 204 Objective left knee swelling General Appearance: WD/WN, alert EENT: normal ENT inspection Neck: non-tender, normal alignment, supple Cardiovascular: normal peripheral pulses, normal rate, regular rhythm Respiratory/Chest: chest wall non-tender, lungs clear, normal breath sounds, no respiratory distress Abdomen: normal bowel sounds, non tender, soft, no organomegaly, no mass Edema: no edema noted Arm (L), no edema noted Arm (R), no edema noted Leg (L), no edema noted Leg (R), no edema noted Pedal (L), no edema noted Pedal (R), no edema noted Generalized Edema: trace edema Neurologic: no motor/sensory deficits, alert, motor weakness Objective left knee swelling Jacques Chanel MD August 13, 2019 15:56
[2019-08-13 16:00] VITALS: BP 135/65
--- NOTE | 2019-08-13 16:02 | Plastic Surgery Progress Note ---
Plastic Surgery-Progress Note Subjective Symptoms: improved Additional Comments F/u evaluation on patient with left knee abscess and left posterior thigh wound. She is feeling better. Nausea improved. WBC still high but is trending lower. Her energy levels are improved. Objective Last 24 Hour Vital Signs Date Time Temp Pulse Resp B/P (MAP) Pulse Ox O2 Delivery O2 Flow Rate FiO2 08/13/19 12:00 97.3 102 19 102/56 (71) 97 08/13/19 09:00 Room Air 08/13/19 08:00 97.3 104 16 103/58 (73) 97 08/13/19 04:35 99.0 08/13/19 04:00 99.0 97 17 97/60 (72) 95 08/13/19 00:00 98.1 93 18 122/60 (80) 94 08/12/19 21:00 Room Air 08/12/19 20:00 98.2 98 17 109/55 (73) 93 08/12/19 16:00 98.6 73 17 107/63 (78) 97 I&O Intake and Output 08/12/19 08/13/19 19:00 07:00 Intake Total 1500 ml 1000 ml Output Total 400 ml Balance 1500 ml 600 ml Intake Oral 1500 ml 1000 ml Stool Total 400 ml # Voids 1 # Bowel Movements 1 Dressing: dry Wound: clean, dry, other - Left knee wound with no purulent drainage. Undermining stable. No erythema or warmth in the periskin. Posterior thigh wound with clean granular base and less depth than previous exam. Laboratory Tests Test 08/13/19 04:00 White Blood Count 15.2 K/UL (4.8-10.8) H Red Blood Count 3.00 M/UL (4.20-5.40) L Hemoglobin 8.0 G/DL (12.0-16.0) L Hematocrit 24.6 % (37.0-47.0) L Mean Corpuscular Volume 82 FL (80-99) Mean Corpuscular Hemoglobin 26.7 PG (27.0-31.0) L Mean Corpuscular Hemoglobin Concent 32.6 G/DL (32.0-36.0) Red Cell Distribution Width 14.5 % (11.6-14.8) Platelet Count 315 K/UL (150-450) Mean Platelet Volume 6.1 FL (6.5-10.1) L Neutrophils (%) (Auto) 82.1 % (45.0-75.0) H Lymphocytes (%) (Auto) 12.6 % (20.0-45.0) L Monocytes (%) (Auto) 3.9 % (1.0-10.0) Eosinophils (%) (Auto) 1.1 % (0.0-3.0) Basophils (%) (Auto) 0.3 % (0.0-2.0) Sodium Level 129 MMOL/L (136-145) L Potassium Level 4.6 MMOL/L (3.5-5.1) Chloride Level 98 MMOL/L (98-107) Carbon Dioxide Level 23 MMOL/L (21-32) Anion Gap 8 mmol/L (5-15) Blood Urea Nitrogen 28 mg/dL (7-18) H Creatinine 0.9 MG/DL (0.55-1.30) Estimat Glomerular Filtration Rate > 60 mL/min (>60) Glucose Level 142 MG/DL (74-106) H Calcium Level 8.8 MG/DL (8.5-10.1) Total Bilirubin 0.5 MG/DL (0.2-1.0) Aspartate Amino Transf (AST/SGOT) 16 U/L (15-37) Alanine Aminotransferase (ALT/SGPT) 7 U/L (12-78) L Alkaline Phosphatase 133 U/L (46-116) H Total Protein 7.7 G/DL (6.4-8.2) Albumin 1.4 G/DL (3.4-5.0) L Globulin 6.3 g/dL Albumin/Globulin Ratio 0.2 (1.0-2.7) L Assessment Additional Comments Overall showing improvement. Anticipate discharge tomorrow. Will contact [facility] to resume at home dressing changes on tuesday and orders will be sent. Will arrange for her to come to the wound center next tuesday for continuing her wound care. Keegan Cristobal MD August 13, 2019 16:02
--- NOTE | 2019-08-13 19:24 | NUR ---
HAND-OFF: Report given to Dilip LANGE.
--- NOTE | 2019-08-13 19:30 | NUR ---
NURSE NOTES: Pt. received from ANISA Liang. Pt. AAOx4, on room air, no indications of SOB, complaints of pain, will follow with pain interventions. PICC CHRISTIN noted, dressing clean dry and intact. Bed is low and locked, side rails x2 up, bed alarm active, and call light is in reach. Will continue to monitor.
[2019-08-13 20:00] VITALS: BP 90/50
[2019-08-13] MEDS: Dyna-Hex 2% Top Sol 2oz TOPIC SCH (20:37)
[2019-08-14] VITALS: BP 101/50
[2019-08-14] MEDS: DiphenhydrAMINE 50mg/ml Inj IVP PRN ×3 (01:09→12:50)
[2019-08-14 04:00] VITALS: BP 95/51
--- NOTE | 2019-08-14 06:05 | NUR ---
NURSE NOTES: Attempted to perform wound dressing changes, pt. refused, stating "come back later." Returned in 15 minutes and pt. continued to refused. Charge nurse aware. Will endorse to next shift.
[2019-08-14] MEDS: NovoLOG Insulin Flexpen SUBQ SCH ×2 (06:30→11:30)
--- NOTE | 2019-08-14 07:20 | NUR ---
HAND-OFF: Report given to ANISA Liang.
--- NOTE | 2019-08-14 07:25 | NUR ---
NURSE NOTES: Received patient in bed. Awake, A/O x4. On room air. PICC line in the Left upper arm, with dry dressing in place. Bed at the lowest position, bed locked, call light within reach.
[2019-08-14 08:00] VITALS: BP 126/74
[2019-08-14] MEDS: Heparin 5000 units/ml inj SUBQ SCH (09:00)
--- NOTE | 2019-08-14 09:01 | Pulmonology Progress Note ---
Assessment/Plan Assessment/Plan IMPRESSION: Concern for joint infection, concern for osteomyelitis, asthma, shortness of breath clinically stable, leukocytosis, possible sepsis with now positive blood cultures for Staphylococcus aureus, paraplegia, diabetes poorly controlled, noncompliance, severe pain. tachycardia - better hyponatremia PLAN care noted linezolid- 30 days remaining d/w surgery respiratory as is monitor HH incentive spirometry dc home with HH reviewed care with other consultants impression, plan, and exam edited and reviewed in detail care discussed with RN Subjective ROS Limited/Unobtainable: No Constitutional: Denies: fever, chills Gastrointestinal/Abdominal: Reports: nausea, vomiting; Denies: diarrhea Musculoskeletal: Reports: pain - decreased in abdomen Allergies: Coded Allergies: CEFTRIAXONE (Verified Allergy, Intermediate, SOB, HR-140bpm, face swollen , pt became red, 10/24/15) CODEINE (Verified Allergy, Intermediate, SWELLING, 01/03/11) LATEX (Verified Allergy, Intermediate, SWELLING, 01/03/11) PIPERACILLIN (Verified Allergy, Intermediate, Itching, 08/29/15) 08/29/15 tolerates Ceftaroline TAZOBACTAM (Verified Allergy, Intermediate, Itching, 01/29/15) POLYMYXIN B (Verified Allergy, Mild, Rash, 04/08/16) Suspected allergy reported by MD VANCOMYCIN (Verified Allergy, Mild, 07/15/14) ASPARAGINASE (Verified Allergy, Unknown, 01/28/14) CEFUROXIME (Unverified Allergy, Unknown, 04/19/16) IRON (Verified Allergy, Unknown, 01/28/14) LATEX, NATURAL RUBBER (Unverified Allergy, Unknown, 06/18/16) All Systems: reviewed and negative except above Subjective reviewed care with patient ready for dc PICC in place Objective Last 24 Hour Vital Signs Date Time Temp Pulse Resp B/P (MAP) Pulse Ox O2 Delivery O2 Flow Rate FiO2 08/14/19 04:00 97.9 92 20 95/51 (66) 95 08/14/19 00:00 98.2 94 22 101/50 (67) 97 08/13/19 21:07 98.8 08/13/19 21:00 Room Air 08/13/19 20:00 98.8 99 20 90/50 (63) 99 08/13/19 16:00 97.8 93 17 135/65 (88) 98 08/13/19 12:00 97.3 102 19 102/56 (71) 97 Intake and Output 08/13/19 08/14/19 19:00 07:00 Intake Total 800 ml 360 ml Output Total 200 ml Balance 800 ml 160 ml Intake Oral 800 ml Other 360 ml Stool Total 200 ml # Voids 1 Objective GENERAL: An ill-appearing female. HEENT: Negative. Extraocular movements are grossly intact. NECK: Supple. LUNGS: Moderate breath sounds. No rhonchi or wheezes. CARDIAC: S1, S2. Regular rhythm without murmurs, rubs, or gallops. tachy ABDOMEN: Soft, nontender, nondistended. EXTREMITIES: No cyanosis or clubbing. Drainage noted. Dressings noted. The patient is paraplegic. General Appearance: no acute distress HEENT: mucous membranes moist Abdomen: soft, non tender Extremities: no edema, other - left knee wound clean, left arm PICC Skin: ulcers, other - left knee 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: other - sleeping Current Medications Medications (Trade) Dose Ordered Sig/Pineda Route PRN Reason Start Time Stop Time Status Last Admin Dose Admin Acetaminophen (Tylenol) 650 mg Q4H PRN ORAL Mild Pain/fever 07/28/19 13:30 08/27/19 13:29 Al Hydroxide/Mg Hydroxide (Mylanta) 30 ml Q4HR PRN ORAL To Patient Comfort 07/28/19 13:30 08/27/19 13:29 Chlorhexidine Gluconate (Nereida-Hex 2%) 1 applic DAILY@2000 TOPIC 08/07/19 20:00 11/05/19 19:59 08/13/19 20:37 Dextrose (Dextrose 50%) 25 ml Q30M PRN IV Hypoglycemia 07/29/19 15:30 10/27/19 15:29 Dextrose (Dextrose 50%) 50 ml Q30M PRN IV Hypoglycemia 07/29/19 15:30 10/27/19 15:29 Diphenhydramine HCl (Benadryl) 50 mg Q4HR PRN IVP Itching 07/28/19 17:00 08/27/19 16:59 08/14/19 06:29 Guaifenesin (Robitussin) 200 mg Q4H PRN ORAL For Cough 07/30/19 23:00 10/28/19 22:59 08/01/19 00:33 Heparin Sodium (Porcine) (Heparin 5000 units/ml) 5,000 units EVERY 12 HOURS SUBQ 07/28/19 21:00 09/11/19 20:59 08/06/19 10:00 Hydromorphone HCl (Dilaudid) 2 mg Q3H PRN IVP Severe Pain (Pain Scale 7-10) 08/11/19 14:50 08/18/19 14:49 08/14/19 06:29 Insulin Aspart (NovoLOG) BEFORE MEALS AND HS SUBQ 07/29/19 16:30 10/27/19 16:29 Linezolid (Zyvox) 600 mg Q12HR ORAL 08/04/19 15:00 09/12/19 23:59 08/13/19 20:37 Ondansetron HCl (Zofran) 4 mg Q4H PRN IVP Nausea & Vomiting 08/07/19 10:15 09/06/19 10:14 08/14/19 06:29 Pantoprazole (Protonix) 40 mg DAILY ORAL 07/29/19 09:00 08/28/19 08:59 08/13/19 08:09 Thanh Glover MD August 14, 2019 09:01
--- NOTE | 2019-08-14 09:33 | NUR ---
NURSE NOTES: Received order from Dr. Glover for IV iron. Doctor informed the patient has allergies to iron. Dr. Glover stated to not complete the order d/t allergy. Addendum: 08/14/19 at 0935 by Garth Armando RN Patient stated she swells like a chipmunk when taking PO iron.
--- NOTE | 2019-08-14 09:45 | NUR ---
NURSE NOTES: Patient refused subcut heparin injection. Patient refused x3. Re-educated on use, risks and benefits.
--- NOTE | 2019-08-14 10:09 | NUR ---
DISCHARGE PLANNING DC ORDER TO HOME WITH HOME HEALTH RECEIVED. ANISA MCCARTHY CONFIRMED WITH PATIENT THAT SHE IS ON SERVICE WITH [facility] P: [phone] F: [phone] S/W SUSANNAH AT [facility]. CONFIRMED PATIENT IS CURRENTLY ON SERVICE WITH THIS AGENCY. CM IS [place]. SUSANNAH WILL HAVE CM CALL [facility] CM AFTER RECEIPT OF PATIENTS CLINICALS. PER ANISA MCCARTHY, PATIENT ARRANGED TRANSPORTATION TO HOME VIA ACCESS WITH REGULATORY INTERNSHIP TIME FROM [facility] AT 1355 PM.
--- NOTE | 2019-08-14 10:22 | NUR ---
DISCHARGE PLANNING PATIENT HAS BEEN REFERRED TO [facility] P: [phone] F: [phone]
--- NOTE | 2019-08-14 10:43 | Infectious Diseases Prog Note ---
"Assessment/Plan Assessment/Plan antibiotics : linezolid A 1. MRSA sepsis 2. left knee possible septic arthritis | osteomyelitis 3. paraplegia 4. leucocytosis improving 5. renal failure improving P 1. continue linezolid 29 more days 2. cbc, bmp, lft q weekly 3. will follow up cultures Subjective Constitutional: Denies: fever, chills Respiratory: Denies: shortness of breath, dry cough Gastrointestinal/Abdominal: Reports: nausea - decreased; Denies: vomiting, diarrhea Musculoskeletal: Reports: pain - decreased Allergies: Coded Allergies: CEFTRIAXONE (Verified Allergy, Intermediate, SOB, HR-140bpm, face swollen , pt became red, 10/24/15) CODEINE (Verified Allergy, Intermediate, SWELLING, 01/03/11) LATEX (Verified Allergy, Intermediate, SWELLING, 01/03/11) PIPERACILLIN (Verified Allergy, Intermediate, Itching, 08/29/15) 08/29/15 tolerates Ceftaroline TAZOBACTAM (Verified Allergy, Intermediate, Itching, 01/29/15) POLYMYXIN B (Verified Allergy, Mild, Rash, 04/08/16) Suspected allergy reported by VANCOMYCIN (Verified Allergy, Mild, 07/15/14) ASPARAGINASE (Verified Allergy, Unknown, 01/28/14) CEFUROXIME (Unverified Allergy, Unknown, 04/19/16) IRON (Verified Allergy, Unknown, 01/28/14) LATEX, NATURAL RUBBER (Unverified Allergy, Unknown, 06/18/16) Objective Vital Signs Last 24 Hour Vital Signs Date Time Temp Pulse Resp B/P (MAP) Pulse Ox O2 Delivery O2 Flow Rate FiO2 08/14/19 08:00 97.6 88 18 126/74 (91) 96 08/14/19 04:00 97.9 92 20 95/51 (66) 95 08/14/19 00:00 98.2 94 22 101/50 (67) 97 08/13/19 21:07 98.8 08/13/19 21:00 Room Air 08/13/19 20:00 98.8 99 20 90/50 (63) 99 08/13/19 16:00 97.8 93 17 135/65 (88) 98 08/13/19 12:00 97.3 102 19 102/56 (71) 97 Height (Feet): 5 Height (Inches): 5.00 Weight (Pounds): 204 Respiratory/Chest: lungs clear Cardiovascular: normal rate, regular rhythm, no gallop/murmur Abdomen: soft, non tender Extremities: no edema, other - left knee wound clean Current Medications Medications (Trade) Dose Ordered Sig/Pineda Route PRN Reason Start Time Stop Time Status Last Admin Dose Admin Acetaminophen (Tylenol) 650 mg Q4H PRN ORAL Mild Pain/fever 07/28/19 13:30 08/27/19 13:29 Al Hydroxide/Mg Hydroxide (Mylanta) 30 ml Q4HR PRN ORAL To Patient Comfort 07/28/19 13:30 08/27/19 13:29 Chlorhexidine Gluconate (Nereida-Hex 2%) 1 applic DAILY@1999 TOPIC 08/07/19 20:00 11/05/19 19:59 08/13/19 20:37 Dextrose (Dextrose 50%) 25 ml Q30M PRN IV Hypoglycemia 07/29/19 15:30 10/27/19 15:29 Dextrose (Dextrose 50%) 50 ml Q30M PRN IV Hypoglycemia 07/29/19 15:30 10/27/19 15:29 Diphenhydramine HCl (Benadryl) 50 mg Q4HR PRN IVP Itching 07/28/19 17:00 08/27/19 16:59 08/14/19 06:29 Guaifenesin (Robitussin) 200 mg Q4H PRN ORAL For Cough 07/30/19 23:00 10/28/19 22:59 08/01/19 00:33 Heparin Sodium (Porcine) (Heparin 5000 units/ml) 5,000 units EVERY 12 HOURS SUBQ 07/28/19 21:00 09/11/19 20:59 08/06/19 10:00 Hydromorphone HCl (Dilaudid) 2 mg Q3H PRN IVP Severe Pain (Pain Scale 7-10) 08/11/19 14:50 08/18/19 14:49 08/14/19 09:40 Insulin Aspart (NovoLOG) BEFORE MEALS AND HS SUBQ 07/29/19 16:30 10/27/19 16:29 Linezolid (Zyvox) 600 mg Q12HR ORAL 08/04/19 15:00 09/12/19 23:59 08/14/19 09:39 Ondansetron HCl (Zofran) 4 mg Q4H PRN IVP Nausea & Vomiting 08/07/19 10:15 09/06/19 10:14 08/14/19 06:29 Pantoprazole (Protonix) 40 mg DAILY ORAL 07/29/19 09:00 08/28/19 08:59 08/14/19 09:39 Deng Reyes MD August 14, 2019 10:43"
--- NOTE | 2019-08-14 11:46 | NUR ---
NURSE NOTES: Patient refused wound pictures at discharge. Patient states she is going home, there is no need for pictures, and that her wounds are fine. CN made aware and Wound care nurse made aware. Wounds last changed 08/13/2019.
--- NOTE | 2019-08-14 14:20 | NUR ---
NURSE NOTES: Patient stated she had $250 when she came in and now it is missing. Explained to patient no you was recorded on Patient's Belonging's Inventory on admission. Patient stated it should have been recorded. Belongings list signed by patient.
--- NOTE | 2019-08-14 14:20 | NUR ---
NURSE NOTES: Patient d/c via electric wheelchair with Access transportation. ID band removed. PICC line removed. Belongings list verified.
--- NOTE | 2019-08-14 16:06 | General Progress Note ---
Assessment/Plan Problem List: (1) Dehydration ICD Codes: E86.0 - Dehydration SNOMED: 17060692 (2) Opiate dependence ICD Codes: F11.20 - Opioid dependence, uncomplicated SNOMED: 24040676 (3) Colostomy care ICD Codes: Z43.3 - Encounter for attention to colostomy SNOMED: 042106338 (4) Pain ICD Codes: R52 - Pain, unspecified SNOMED: 36180096 (5) Sepsis ICD Codes: A41.9 - Sepsis SNOMED: 58744687 (6) Infection of left knee ICD Codes: M00.9 - Pyogenic arthritis, unspecified SNOMED: 01546128, 978690381 (7) right hip wound infecion/ulcer/osteo (8) Paraplegia ICD Codes: G82.20 - Paraplegia SNOMED: 49054289 (9) Cellulitis ICD Codes: L03.90 - Cellulitis, unspecified SNOMED: 530839257 (10) Asthma ICD Codes: J45.909 - Unspecified asthma, uncomplicated SNOMED: 970889315 Status: stable Assessment/Plan: cont current rx abx per id picc line for lab draws at home 29 more days linezolid echo negative pain rx colostomy care dc planning in process Subjective ROS Limited/Unobtainable: No Constitutional: Reports: malaise, weakness HEENT: Reports: no symptoms Cardiovascular: Reports: no symptoms Respiratory: Reports: no symptoms Gastrointestinal/Abdominal: Reports: no symptoms Genitourinary: Reports: no symptoms 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: Reports: pre-existing deficit Endocrine: Reports: no symptoms Hematologic/Lymphatic: Reports: anemia Allergies: Coded Allergies: CEFTRIAXONE (Verified Allergy, Intermediate, SOB, HR-140bpm, face swollen , pt became red, 10/24/15) CODEINE (Verified Allergy, Intermediate, SWELLING, 01/03/11) LATEX (Verified Allergy, Intermediate, SWELLING, 01/03/11) PIPERACILLIN (Verified Allergy, Intermediate, Itching, 08/29/15) 08/29/15 tolerates Ceftaroline TAZOBACTAM (Verified Allergy, Intermediate, Itching, 01/29/15) POLYMYXIN B (Verified Allergy, Mild, Rash, 04/08/16) Suspected allergy reported by VANCOMYCIN (Verified Allergy, Mild, 07/15/14) ASPARAGINASE (Verified Allergy, Unknown, 01/28/14) CEFUROXIME (Unverified Allergy, Unknown, 04/19/16) IRON (Verified Allergy, Unknown, 01/28/14) LATEX, NATURAL RUBBER (Unverified Allergy, Unknown, 06/18/16) All Systems: reviewed and negative except above Subjective no new complaints. stable. pain controlled. cultures with s.aureus. no fever or chills. no sob. ID noted. needs 29 more days linezolid. Objective Last 24 Hour Vital Signs Date Time Temp Pulse Resp B/P (MAP) Pulse Ox O2 Delivery O2 Flow Rate FiO2 08/14/19 09:00 Room Air 08/14/19 08:00 97.6 88 18 126/74 (91) 96 08/14/19 04:00 97.9 92 20 95/51 (66) 95 08/14/19 00:00 98.2 94 22 101/50 (67) 97 08/13/19 21:07 98.8 08/13/19 21:00 Room Air 08/13/19 20:00 98.8 99 20 90/50 (63) 99 Intake and Output 08/13/19 08/14/19 19:00 07:00 Intake Total 800 ml 360 ml Output Total 200 ml Balance 800 ml 160 ml Intake Oral 800 ml Other 360 ml Stool Total 200 ml # Voids 1 Height (Feet): 5 Height (Inches): 5.00 Weight (Pounds): 204 Objective left knee swelling General Appearance: WD/WN, alert EENT: normal ENT inspection Neck: non-tender, normal alignment, supple Cardiovascular: normal peripheral pulses, normal rate, regular rhythm Respiratory/Chest: chest wall non-tender, lungs clear, normal breath sounds, no respiratory distress Abdomen: normal bowel sounds, non tender, soft, no organomegaly, no mass Edema: no edema noted Arm (L), no edema noted Arm (R), no edema noted Leg (L), no edema noted Leg (R), no edema noted Pedal (L), no edema noted Pedal (R), no edema noted Generalized Edema: trace edema Neurologic: no motor/sensory deficits, alert, motor weakness Objective left knee swelling Jacques Chanel MD August 14, 2019 16:06
--- NOTE | 2019-08-16 11:20 | Discharge Summary ---
Discharge Summary Discharge Summary _ DATE OF ADMISSION: 07/28/2019 DATE OF DISCHARGE: 08/14/2019 DISCHARGED BY: Dr Chanel REASON FOR ADMISSION: 44 years old female with history of paraplegia, colostomy, multiply pressure wounds, presented with complaint of draining left knee wound with associated fever, chills and redness. Several days prior to admission she developed swelling along the left knee, which began to drain purulent pus. Patient was admitted for further management CONSULTANTS: pulmonary Dr. Glover ID specialist Dr. Reyes plastic surgeon HOSPITAL COURSE: Patient admitted to medical surgical floor. Patient started on empiric antibiotic as per ID specialist recommendation. CT scan of the left knee revealed findings , most likely representing chronic synovial proliferation\scar tissue related to chronic immobility and denervation. Soft tissue defect in anteromedial soft tissue , likely representing an ulcer. Extensive irregularity of the joint surfaces. It appeared to most likely be chronic related to patient immobility and innervation. However the possibility of osteomyelitis and/or septic arthritis could not be excluded; given insensitivity ofCT scan to it. Blood culture revealed MRSA. Repeated blood culture on 08/01 still revealed MRSA. Echocardiogram demonstrated preserved ejection fraction of 60%. No evidence of vegetation. No evidence of pericardial effusion. Right ventricular systolic pressure of 11. Patient received PICC line for long-term IV hydration. Blood culture on the 08/06 revealed no evidence of growth. Patient will need to continue linezolid for additional duration of treatment as outpatient as specified by infectious disease specialist. Linezolid will be continued via oral route. PICC line was discontinued prior to discharge. Leukocytosis trending down fevers resolved. Plastic surgeon seen and evaluated patient for Left knee abscess and Left posterior thigh wound. Wound care provided as per surgeon recommendation. Continue wound care per home health nursing. Follow-up with the wound center for continuation of care management. Pain management was judiciously addressed as needed. Upon admission patient demonstrated evidence of renal failure with creatinine of 1.5 which raised to 2.2 . Renal parameters and electrolytes were closely monitored. Patient was hydrated. Nephrotoxic were avoided. Prior to discharge creatinine down to 0.9. Acute renal failure resolved. Supplemental oxygen provided and titrated to keep pulse oximetry above 92%. Nebulizing treatment provided as needed. Pulse oximetry remained stable on room air. No evidence of asthma exacerbation. Colostomy care provided. Supportive care provided. Patient clinically stabilized and was ready for discharge home with home health services. FINAL DIAGNOSES: MRSA sepsis Left knee possible septic arthritis/osteomyelitis Left knee abscess Left posterior thigh wound Paraplegia Leukocytosis Asthma Renal failure- resolved Colostomy status Opiate dependency Dehydration DISCHARGE MEDICATIONS: List of medication was provided to patient. DISCHARGE INSTRUCTIONS: Patient was discharged home with home health services. Patient to follow-up with the wound clinic as arranged. I have been assigned to dictate discharge summary for this account. I was not involved in the patient's management. Ngozi Yoo NP August 16, 2019 11:20
== END 2019-08-14 14:20 | disposition home or self-care (01) | DRG 872 ==
LOC: 4E 07-28 12:03
PROC: 30233N1 Transfusion of Nonautologous Red Blood Cells into Peripheral Vein, Percutaneous Approach (ICD-10-PCS; principal; 2019-08-08)
PROC: 02HV33Z Insertion of Infusion Device into Superior Vena Cava, Percutaneous Approach (ICD-10-PCS; 2019-08-08)
DX: A41.02 Sepsis due to Methicillin resistant Staphylococcus aureus (principal); N17.9 Acute kidney failure, unspecified; G82.20 Paraplegia, unspecified; F11.20 Opioid dependence, uncomplicated; L02.416 Cutaneous abscess of left lower limb; L03.116 Cellulitis of left lower limb; M00.862 Arthritis due to other bacteria, left knee; E87.1 Hypo-osmolality and hyponatremia; M86.8X6 Other osteomyelitis, lower leg; L89.159 Pressure ulcer of sacral region, unspecified stage; Z88.8 Allergy status to other drugs, medicaments and biological substances; Z88.6 Allergy status to analgesic agent; Z88.1 Allergy status to other antibiotic agents; Z91.040 Latex allergy status; E11.65 Type 2 diabetes mellitus with hyperglycemia; D64.9 Anemia, unspecified; E86.0 Dehydration; J45.909 Unspecified asthma, uncomplicated; Z91.19 Patient's noncompliance with other medical treatment and regimen; L89.319 Pressure ulcer of right buttock, unspecified stage; L89.899 Pressure ulcer of other site, unspecified stage; Z93.3 Colostomy status
CPT/HCPCS: 36415; 36569; 36902; 71045; 76937; 80048; 80053; 82962; 83036; 85007; 85025; 85651; 86140; 86850; 86900; 86901; 86920; 87040; 87181; 93005; 93306; J1815; J2405

== ENCOUNTER 2019-08-17 12:11 | Inpatient (IN) | payer MEDICARE, OTHER ==
[~2019-08-17] VITALS: Ht 165.1 cm; Wt 100.7 kg
[2019-08-17 12:19] VITALS: BP 121/91
--- NOTE | 2019-08-17 12:25 | NUR ---
ED Nurse Note: patient brought herself into ED from home c/o back pain due to "lump on the back" for more than 1week. patient is alert awake x4 breathing unlabored and even, speaking in full sentences. patient brought into ED by her electric wheelchair. patient reports she got bathed and her wound dressings changed today.
--- NOTE | 2019-08-17 12:26 | NUR ---
ED Nurse Note: patient moved to bed from wheelchair by [address] Bradley at bedside assessing patient.
--- NOTE | 2019-08-17 12:46 | NUR ---
ED Nurse Note: called lab for lab draw
--- NOTE | 2019-08-17 12:50 | NUR ---
ED Nurse Note: patient taken to CT scan.
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
[2019-08-17 13:38] LABS: BASOPHILS % (AUTO) 0.6 % (0.0-2.0); EOSINOPHILS % (AUTO) 0.5 % (0.0-3.0); HEMATOCRIT 27.5 % (37.0-47.0); HEMOGLOBIN 8.9 G/DL (12.0-16.0); LYMPHOCYTES % (AUTO) 13.9 % (20.0-45.0); MEAN CORPUSCULAR VOLUME 81 FL (80-99); MONOCYTES % (AUTO) 3.5 % (1.0-10.0); NEUTROPHILS % (AUTO) 81.5 % (45.0-75.0); PLATELET COUNT 554 K/UL (150-450); RED BLOOD COUNT 3.37 M/UL (4.20-5.40); RED CELL DISTRIBUTION WIDTH 14.7 % (11.6-14.8); WHITE BLOOD COUNT 14.4 K/UL (4.8-10.8)
[2019-08-17 13:50] LABS: ANION GAP 12 mmol/L (5-15); BLOOD UREA NITROGEN 28 mg/dL (7-18); CALCIUM 9.9 MG/DL (8.5-10.1); CARBON DIOXIDE 20 MMOL/L (21-32); CHLORIDE 95 MMOL/L (98-107); CREATININE 1.2 MG/DL (0.55-1.30); POTASSIUM 5.5 MMOL/L (3.5-5.1); SODIUM 127 MMOL/L (136-145)
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
[2019-08-17] MEDS ORDERED: NORCO 10-325 T1 EACH ORAL (14:47)
--- NOTE | 2019-08-17 14:47 | NUR ---
ED Nurse Note: Edward radiology at bedside for U/S guided IV insertion.
[2019-08-17] MEDS ORDERED: HYDROmorphone 1mg/ml Carpuject IVP ONE ×2 (16:15→20:15)
--- NOTE | 2019-08-17 18:52 | NUR ---
ED Nurse Note: p
--- NOTE | 2019-08-17 18:52 | NUR ---
ED Nurse Note: patient declined for VRE/CRE swab stating "I don't want to be turned now." patient decliend to get wound checked/wound swab/wound picture, "I want to get this done when I go upstairs to my room. I don't want to do it here now."
--- NOTE | 2019-08-17 19:09 | NUR ---
HAND-OFF: Report given to Bekah LANGE. Spoke with Dominik at pharmacy to verify order.
[2019-08-17 19:15] VITALS: BP 97/67
--- NOTE | 2019-08-17 19:15 | NUR ---
ED Nurse Note: Report received from ANISA Bolaños. Pt is resting in bed. NAD. Will continue to monitor. VSS.
[2019-08-17] MEDS ORDERED: NaCl 3% 500ml 250 ML IV ONE (19:30)
--- NOTE | 2019-08-17 19:40 | NUR ---
ED Nurse Note: Pt is c/o severe back pain, ERMD aware.
--- NOTE | 2019-08-17 21:55 | NUR ---
ED Nurse Note: ANISA munguia called Dr. Glover for admitting orders and left voicemail.
[2019-08-17 22:00] VITALS: BP 115/75
--- NOTE | 2019-08-17 22:00 | NUR ---
ED Nurse Note: Pt is resting in bed with eyes closed. NAD. Will continue to monitor.
--- NOTE | 2019-08-17 23:20 | NUR ---
ED Nurse Note: Pt moved to ron bed and repositioned. Pt is resting comfortably.
--- NOTE | 2019-08-17 23:59 | History and Physical Report ---
DATE OF ADMISSION: 08/17/2019 PULMONARY EVALUATION ADMITTING PHYSICIAN: Thanh Glover MD. REASON FOR ADMISSION: Multiple abscesses. Respiratory insufficiency. HISTORY OF PRESENT ILLNESS: This is a 44-year-old female, well known to me. Patient recently discharged for underlying infection. Patient now re-presents with significant pain, difficulty managing. Patient with leukocytosis, anemia. Patient also has significant hyponatremia, hyperkalemia. Patient also with shortness of breath and cough. Patient did undergo a CT of the spine showing multiple abscesses at this time. Patient has been having worsening pain, difficult to manage at home. Patient has multiple medical problems. She does have underlying history of paraplegia, nonhealing surgical wounds, history of osteomyelitis, history of prior abscess, history of chronic opiate dependence, history of osteomyelitis, prior history of wound VAC, paraspinal abscess in the past, sacral decubitus. MEDICATIONS: Reviewed. ALLERGIES: Reviewed. SOCIAL HISTORY: Patient lives at home with caregivers. Patient is dependent to some extent, but she is fully alert, oriented. PHYSICAL EXAMINATION: GENERAL: Patient is an ill-appearing female. VITAL SIGNS: Reviewed. Blood pressure 112/91, pulse 98, respirations 20, saturation 98%, temperature 98.1. HEENT: Negative. NECK: Supple. LUNGS: Good air entry. CARDIAC: S1, S2. Regular rate and rhythm. ABDOMEN: Soft, nontender. EXTREMITIES: With significant atrophy. LABORATORY DATA: Otherwise reviewed. IMPRESSION: Multiple abscesses, hyponatremia, hyperkalemia, acute renal failure, shortness of breath, dyspnea, leukocytosis, anemia, thrombocytosis. RECOMMENDATIONS: Supportive care. Infectious Disease evaluation to follow. Incentive spirometry. Monitor oxygen needs. Pain control. We will follow clinically for further changes and interventions and ongoing recommendations. Patient is guarded at present and will require acute care and acute management for now and we will obtain renal evaluation to assist with this patient's care and electrolyte imbalances. Thanh Glover M.D. DR: ELENA JOB#: [id number] CC: MADI
[2019-08-18] VITALS (7 sets, daily range): BP systolic 95–128; BP diastolic 53–70
--- NOTE | 2019-08-18 00:30 | NUR ---
ED Nurse Note: Pt c/o pain to IV site on L arm. Pt states she wants IV line removed immediately. Edema, redness and tenderness noted to IV site on L upper arm. JOHN bedside. Pt is refusing new IV access to be established and notes that she wants to wait fo PICC line placement in the morning. JOHN Yomtubian is aware of pt current IV medications, will hold on gaining IV access. IV fluid discontinued.
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
--- NOTE | 2019-08-18 03:00 | NUR ---
ED Nurse Note: Pt is sleeping in bed at this time. No signs of distress noted. Safety measures in place. Will continue to monitor. Breathing is normal, even and unlabored.
--- NOTE | 2019-08-18 05:10 | NUR ---
ED Nurse Note: Attempted to call Dr. Glover for admitting orders with no answer, left voicemail for physician to call RN back with return phone number and request for orders.
--- NOTE | 2019-08-18 05:45 | NUR ---
ED Nurse Note: Pt is resting in bed, will wake up and respond to questions, [id number]. NAD. See vitals flow sheet. Pt has no complaint at this time. Safety measures in place.
--- NOTE | 2019-08-18 05:45 | NUR ---
ED Nurse Note: Pt states she is not able to provide urine sample, she also refuses straight cath which pt states "I have issues with my urethra".
--- NOTE | 2019-08-18 07:15 | NUR ---
HAND-OFF: Report given to ANISA Asencio and endorsed plan of care.
--- NOTE | 2019-08-18 07:27 | NUR ---
ED Nurse Note: Dr Arce paged for inpatient orders.
--- NOTE | 2019-08-18 07:40 | NUR ---
ED Nurse Note: Spoke to Dr Glover regarding inpatient orders. Dr Arce notified that patient refusing to striaght cath for urine sample, is refusing lab draws and IV placement until PICC line is placed and notified that no PICC line placement nurse available on weekends. Inpatient orders input via telephone. states to draw labs once PICC is placed.
[2019-08-18] MEDS ORDERED: HYDROcodone/Acetamin 10/325 tab ORAL PRN ×2 (07:45)
[2019-08-18] MEDS ORDERED: Lidocaine 1% Plain 30 ml INJ SCH (09:45)
[2019-08-18] MEDS ORDERED: Heparin1,000 units/500ml Premix(Conc:2 units/ml) IV SCH (09:45)
--- NOTE | 2019-08-18 10:18 | Pulmonology Progress Note ---
Subjective Allergies: Coded Allergies: CEFTRIAXONE (Verified Allergy, Intermediate, SOB, HR-140bpm, face swollen , pt became red, 10/24/15) CODEINE (Verified Allergy, Intermediate, SWELLING, 01/03/11) LATEX (Verified Allergy, Intermediate, SWELLING, 01/03/11) PIPERACILLIN (Verified Allergy, Intermediate, Itching, 08/29/15) 08/29/15 tolerates Ceftaroline TAZOBACTAM (Verified Allergy, Intermediate, Itching, 01/29/15) POLYMYXIN B (Verified Allergy, Mild, Rash, 04/08/16) Suspected allergy reported by VANCOMYCIN (Verified Allergy, Mild, 07/15/14) ASPARAGINASE (Verified Allergy, Unknown, 01/28/14) CEFUROXIME (Unverified Allergy, Unknown, 04/19/16) IRON (Verified Allergy, Unknown, 01/28/14) LATEX, NATURAL RUBBER (Unverified Allergy, Unknown, 06/18/16) Subjective refusing care wants PICC refusing peripheral IV Objective Last 24 Hour Vital Signs Date Time Temp Pulse Resp B/P (MAP) Pulse Ox O2 Delivery O2 Flow Rate FiO2 08/18/19 08:15 98.8 97 17 101/57 98 Room Air 08/18/19 05:45 98.8 100 16 95/53 99 Room Air 08/18/19 03:00 98.1 98 14 106/66 99 Room Air 08/17/19 22:00 98.1 95 18 115/75 99 Room Air 08/17/19 20:44 98.1 08/17/19 19:15 98.1 100 17 97/67 100 Room Air 08/17/19 19:15 100 17 Room Air 08/17/19 16:42 98.1 08/17/19 13:04 98.1 08/17/19 12:19 98.1 98 20 121/91 98 Room Air 08/17/19 12:19 98.1 98 20 121/91 (101) 98 Room Air Intake and Output 08/17/19 08/18/19 19:00 07:00 Output Total 0 ml Balance 0 ml Output Urine Total 0 ml Objective GENERAL: Patient is an ill-appearing female. in pain HEENT: Negative. NECK: Supple. LUNGS: Good air entry. CARDIAC: S1, S2. Regular rate and rhythm. ABDOMEN: Soft, nontender. EXTREMITIES: With significant atrophy. Laboratory Tests 08/17/19 13:20: White Blood Count 14.4H, Red Blood Count 3.37L, Hemoglobin 8.9L, Hematocrit 27.5L, Mean Corpuscular Volume 81, Mean Corpuscular Hemoglobin 26.5L, Mean Corpuscular Hemoglobin Concent 32.5, Red Cell Distribution Width 14.7, Platelet Count 554H, Mean Platelet Volume 5.9L, Neutrophils (%) (Auto) 81.5H, Lymphocytes (%) (Auto) 13.9L, Monocytes (%) (Auto) 3.5, Eosinophils (%) (Auto) 0.5, Basophils (%) (Auto) 0.6, Sodium Level 127L, Potassium Level 5.5H, Chloride Level 95L, Carbon Dioxide Level 20L, Anion Gap 12, Blood Urea Nitrogen 28H, Creatinine 1.2, Estimat Glomerular Filtration Rate 58.7, Glucose Level 309H , Calcium Level 9.9 Current Medications Medications (Trade) Dose Ordered Sig/Pineda Route PRN Reason Start Time Stop Time Status Last Admin Dose Admin Acetaminophen/ Hydrocodone Bitart ([place] 10/325) 1 tab Q4HR PRN ORAL Mild Pain (Pain Scale 1-3) 08/18/19 07:45 08/25/19 07:44 Acetaminophen/ Hydrocodone Bitart ([place] 10/325) 2 tab Q4HR PRN ORAL Moderate Pain (Pain Scale 4-6) 08/18/19 07:45 08/25/19 07:44 Chlorhexidine Gluconate (Nereida-Hex 2%) 1 applic DAILY@1999 TOPIC 08/18/19 20:00 11/16/19 19:59 Heparin Sodium/ Sodium Chloride (Heparin 1000 units/500ml Premix) 1,000 unit ONCE IV 08/18/19 09:45 08/18/19 12:30 Hydromorphone HCl (Dilaudid) 2 mg Q4HR PRN IM Severe Pain (Pain Scale 7-10) 08/18/19 07:45 08/25/19 07:44 Lidocaine HCl (Xylocaine 1% 30ml) 30 ml ONCE INJ 08/18/19 09:45 08/18/19 12:30 Linezolid (Zyvox) 600 mg EVERY 12 HOURS ORAL 08/18/19 09:45 08/23/19 09:44 08/18/19 09:46 Assessment/Plan Assessment/Plan IMPRESSION: Multiple abscesses, hyponatremia, hyperkalemia, acute renal failure, shortness of breath, dyspnea, leukocytosis, anemia, thrombocytosis. PLAN PICC oxygen as needed repeat labs when patient agrees linezolid check cultures hydrate monitor HH may need repeat transfusion impression, plan, and exam edited and reviewed in detail care discussed with Thanh Garcia MD August 18, 2019 10:18
--- NOTE | 2019-08-18 10:30 | NUR ---
ED Nurse Note: Pics taken of coccyc wounds and input in computer. Pt cleaned, and new dressings applied to coccyx. Pt refuses to have picture taken of bilater foot and leg wounds and wants to leave dressings on. Colostomy bag emptied 30 cc.
--- NOTE | 2019-08-18 11:39 | Infectious Diseases Prog Note ---
Assessment/Plan Assessment/Plan antibiotics : linezolid A 1. lumbar abscess 2. staph aureus sepsis 3. left knee septic arthritis 4. paraplegia P 1. continue linezolid 2. will follow up cultures 3. suggest spine surgery evaluation Subjective Constitutional: Denies: fever, chills Respiratory: Denies: shortness of breath, dry cough Gastrointestinal/Abdominal: Reports: nausea, vomiting - decreased Musculoskeletal: Reports: pain Allergies: Coded Allergies: CEFTRIAXONE (Verified Allergy, Intermediate, SOB, HR-140bpm, face swollen , pt became red, 10/24/15) CODEINE (Verified Allergy, Intermediate, SWELLING, 01/03/11) LATEX (Verified Allergy, Intermediate, SWELLING, 01/03/11) PIPERACILLIN (Verified Allergy, Intermediate, Itching, 08/29/15) 08/29/15 tolerates Ceftaroline TAZOBACTAM (Verified Allergy, Intermediate, Itching, 01/29/15) POLYMYXIN B (Verified Allergy, Mild, Rash, 04/08/16) Suspected allergy reported by VANCOMYCIN (Verified Allergy, Mild, 07/15/14) ASPARAGINASE (Verified Allergy, Unknown, 01/28/14) CEFUROXIME (Unverified Allergy, Unknown, 04/19/16) IRON (Verified Allergy, Unknown, 01/28/14) LATEX, NATURAL RUBBER (Unverified Allergy, Unknown, 06/18/16) Objective Vital Signs Last 24 Hour Vital Signs Date Time Temp Pulse Resp B/P (MAP) Pulse Ox O2 Delivery O2 Flow Rate FiO2 08/18/19 11:26 98.8 97 16 105/63 99 Room Air 91 08/18/19 08:15 98.8 97 17 101/57 98 Room Air 08/18/19 05:45 98.8 100 16 95/53 99 Room Air 08/18/19 03:00 98.1 98 14 106/66 99 Room Air 08/17/19 22:00 98.1 95 18 115/75 99 Room Air 08/17/19 20:44 98.1 08/17/19 19:15 98.1 100 17 97/67 100 Room Air 08/17/19 19:15 100 17 Room Air 08/17/19 16:42 98.1 08/17/19 13:04 98.1 08/17/19 12:19 98.1 98 20 121/91 98 Room Air 08/17/19 12:19 98.1 98 20 121/91 (101) 98 Room Air Height (Feet): 5 Height (Inches): 5.00 Weight (Pounds): 220 Respiratory/Chest: lungs clear Cardiovascular: normal rate, regular rhythm, no gallop/murmur Abdomen: soft, non tender Extremities: no edema Microbiology Date/Time Source Procedure Growth Status 08/18/19 10:20 Rectum Received Laboratory Tests Test 08/17/19 13:20 White Blood Count 14.4 K/UL (4.8-10.8) H Red Blood Count 3.37 M/UL (4.20-5.40) L Hemoglobin 8.9 G/DL (12.0-16.0) L Hematocrit 27.5 % (37.0-47.0) L Mean Corpuscular Volume 81 FL (80-99) Mean Corpuscular Hemoglobin 26.5 PG (27.0-31.0) L Mean Corpuscular Hemoglobin Concent 32.5 G/DL (32.0-36.0) Red Cell Distribution Width 14.7 % (11.6-14.8) Platelet Count 554 K/UL (150-450) H Mean Platelet Volume 5.9 FL (6.5-10.1) L Neutrophils (%) (Auto) 81.5 % (45.0-75.0) H Lymphocytes (%) (Auto) 13.9 % (20.0-45.0) L Monocytes (%) (Auto) 3.5 % (1.0-10.0) Eosinophils (%) (Auto) 0.5 % (0.0-3.0) Basophils (%) (Auto) 0.6 % (0.0-2.0) Sodium Level 127 MMOL/L (136-145) L Potassium Level 5.5 MMOL/L (3.5-5.1) H Chloride Level 95 MMOL/L (98-107) L Carbon Dioxide Level 20 MMOL/L (21-32) L Anion Gap 12 mmol/L (5-15) Blood Urea Nitrogen 28 mg/dL (7-18) H Creatinine 1.2 MG/DL (0.55-1.30) Estimat Glomerular Filtration Rate 58.7 mL/min (>60) Glucose Level 309 MG/DL (74-106) H Calcium Level 9.9 MG/DL (8.5-10.1) Current Medications Medications (Trade) Dose Ordered Sig/Pineda Route PRN Reason Start Time Stop Time Status Last Admin Dose Admin Acetaminophen/ Hydrocodone Bitart ([place] 10/325) 1 tab Q4HR PRN ORAL Mild Pain (Pain Scale 1-3) 08/18/19 07:45 08/25/19 07:44 Acetaminophen/ Hydrocodone Bitart ([place] 10/325) 2 tab Q4HR PRN ORAL Moderate Pain (Pain Scale 4-6) 08/18/19 07:45 08/25/19 07:44 Chlorhexidine Gluconate (Nereida-Hex 2%) 1 applic DAILY@1999 TOPIC 08/18/19 20:00 11/16/19 19:59 Heparin Sodium/ Sodium Chloride (Heparin 1000 units/500ml Premix) 1,000 unit ONCE IV 08/18/19 09:45 08/18/19 12:30 Hydromorphone HCl (Dilaudid) 2 mg Q4HR PRN IM Severe Pain (Pain Scale 7-10) 08/18/19 07:45 08/25/19 07:44 Lidocaine HCl (Xylocaine 1% 30ml) 30 ml ONCE INJ 08/18/19 09:45 08/18/19 12:30 Linezolid (Zyvox) 600 mg EVERY 12 HOURS ORAL 08/18/19 09:45 08/23/19 09:44 08/18/19 09:46 Deng Reyes MD August 18, 2019 11:39
--- NOTE | 2019-08-18 12:35 | NUR ---
ED Nurse Note: Report given to Ion LANGE MS floor.
[2019-08-18] MEDS: Levofloxacin 500mg tab ORAL SCH ×2 (16:54→16:59)
--- NOTE | 2019-08-18 18:16 | NUR ---
NURSE NOTES: pt awake alert, no distress. no c/o pain. iv on lfa 24g intact patent, per ok to have dilaudid prn via iv or im Addendum: 08/18/19 at 1818 by OREN MEDINA RN call light within reach. bed in lowest position, locked. Addendum: 08/18/19 at 1923 by OREN MEDINA RN is aware of labs today. no new orders, pt refused for lab redraw to recheck labs
--- NOTE | 2019-08-18 19:27 | NUR ---
NURSE NOTES: Received patient on bed, awake and verbally responsive. room air. no sob. with complaints of pain on the back. with iv line on the left hand saline lock. per jaja " the potassium is 5.5, md is aware. patient refused for re-draw of blood. reiterated to call or ask for assistance. call light and light button within easy reach. will continue plan of care. Addendum: 08/18/19 at 2331 by Annamarie Beck RN [facility]" SHE did all the interventions and assessments".
[2019-08-18] MEDS: Dyna-Hex 2% Top Sol 2oz TOPIC SCH (20:00)
[2019-08-18] MEDS ORDERED: Tubing IV Secondary IV ONE (21:25)
[2019-08-18] MEDS ORDERED: NS 275ml ONE (21:25)
[2019-08-18] MEDS: metroNIDAZOLE 500mg tab ORAL SCH (21:58)
[2019-08-19] VITALS: BP 106/55
[2019-08-19 04:00] VITALS: BP 124/60
[2019-08-19] MEDS: metroNIDAZOLE 500mg tab ORAL SCH ×3 (06:00→22:00)
[2019-08-19 08:00] VITALS: BP 120/56
--- NOTE | 2019-08-19 08:00 | NUR ---
NURSE NOTES: Patient is in bed awake and able to verbalize needs. Stable. Denies SOB, c/o pain in her back, pain medication administration schedule discussed with patient. Patient instructed to use call light for assistance, verbalized understanding. Patient is in bed in locked and lowest position with call light within reach. All needs met at this time. Will continue to monitor.
--- NOTE | 2019-08-19 08:04 | Pulmonology Progress Note ---
Subjective Constitutional: Denies: fever, chills Gastrointestinal/Abdominal: Reports: nausea, vomiting - decreased Musculoskeletal: Reports: pain Allergies: Coded Allergies: CEFTRIAXONE (Verified Allergy, Intermediate, SOB, HR-140bpm, face swollen , pt became red, 10/24/15) CODEINE (Verified Allergy, Intermediate, SWELLING, 01/03/11) LATEX (Verified Allergy, Intermediate, SWELLING, 01/03/11) PIPERACILLIN (Verified Allergy, Intermediate, Itching, 08/29/15) 08/29/15 tolerates Ceftaroline TAZOBACTAM (Verified Allergy, Intermediate, Itching, 01/29/15) POLYMYXIN B (Verified Allergy, Mild, Rash, 04/08/16) Suspected allergy reported by VANCOMYCIN (Verified Allergy, Mild, 07/15/14) ASPARAGINASE (Verified Allergy, Unknown, 01/28/14) CEFUROXIME (Unverified Allergy, Unknown, 04/19/16) IRON (Verified Allergy, Unknown, 01/28/14) LATEX, NATURAL RUBBER (Unverified Allergy, Unknown, 06/18/16) Subjective refusing care has peripheral IV Objective Last 24 Hour Vital Signs Date Time Temp Pulse Resp B/P (MAP) Pulse Ox O2 Delivery O2 Flow Rate FiO2 08/19/19 06:03 98.0 08/19/19 04:00 98.0 100 19 124/60 (81) 97 08/19/19 00:00 98.8 110 18 106/55 (72) 98 08/18/19 21:00 Room Air 08/18/19 20:00 98.2 109 18 110/60 (77) 98 08/18/19 16:54 98.2 117 18 121/59 (79) 98 08/18/19 15:57 98.2 08/18/19 13:03 Room Air 08/18/19 12:55 98.2 107 18 128/70 (89) 98 08/18/19 12:40 98.7 82 18 107/87 99 Room Air 08/18/19 11:26 98.8 97 16 105/63 99 Room Air 91 08/18/19 08:15 98.8 97 17 101/57 98 Room Air Intake and Output 08/18/19 08/19/19 19:00 07:00 Intake Total 480 ml 850 ml Output Total 230 ml Balance 250 ml 850 ml Intake Oral 480 ml 850 ml Stool Total 230 ml # Voids 2 2 Objective GENERAL: Patient is an ill-appearing female. in pain HEENT: Negative. NECK: Supple. LUNGS: Good air entry. CARDIAC: S1, S2. Regular rate and rhythm. ABDOMEN: Soft, nontender. EXTREMITIES: With significant atrophy. Abdomen: soft, non tender Extremities: no edema Microbiology Date/Time Source Procedure Growth Status 08/17/19 12:30 Nasal Nares MRSA Culture - Final NO METHICILLIN RESISTANT STAPH AUREUS... Complete 08/18/19 10:20 Rectum Received Current Medications Medications (Trade) Dose Ordered Sig/Pineda Route PRN Reason Start Time Stop Time Status Last Admin Dose Admin Acetaminophen/ Hydrocodone Bitart ([place] 10/325) 1 tab Q4HR PRN ORAL Mild Pain (Pain Scale 1-3) 08/18/19 07:45 08/25/19 07:44 Acetaminophen/ Hydrocodone Bitart ([place] 10/325) 2 tab Q4HR PRN ORAL Moderate Pain (Pain Scale 4-6) 08/18/19 07:45 08/25/19 07:44 Chlorhexidine Gluconate (Nereida-Hex 2%) 1 applic DAILY@1999 TOPIC 08/18/19 20:00 11/16/19 19:59 Hydromorphone HCl (Dilaudid) 2 mg Q4H PRN IM Severe Pain (Pain Scale 7-10) 08/18/19 19:30 08/25/19 19:29 08/19/19 05:33 Levofloxacin (Levaquin) 500 mg Q24H ORAL 08/18/19 17:00 08/25/19 16:59 Linezolid (Zyvox) 600 mg EVERY 12 HOURS ORAL 08/18/19 09:45 08/23/19 09:44 08/18/19 21:58 Metronidazole (Flagyl) 500 mg Q8H ORAL 08/18/19 22:00 08/25/19 21:59 08/18/19 21:58 Assessment/Plan Assessment/Plan IMPRESSION: Multiple abscesses, hyponatremia, hyperkalemia, acute renal failure, shortness of breath, dyspnea, leukocytosis, anemia, thrombocytosis. PLAN PICC when able oxygen as needed repeat labs when patient agrees linezolid and added antibiotics await cultures hydrate monitor HH transfuse as needed impression, plan, and exam edited and reviewed in detail care discussed with Thanh Garcia MD August 19, 2019 08:04
--- NOTE | 2019-08-19 10:50 | General Progress Note ---
Assessment/Plan Problem List: (1) Pain ICD Codes: R52 - Pain, unspecified SNOMED: 16834501 (2) Osteomyelitis ICD Codes: M86.9 - Osteomyelitis, unspecified SNOMED: 83780924 (3) Abscess ICD Codes: L02.91 - Abscess SNOMED: 455531785 (4) Paraplegia ICD Codes: G82.20 - Paraplegia SNOMED: 80419046 (5) Asthma ICD Codes: J45.909 - Unspecified asthma, uncomplicated SNOMED: 459755696 (6) Anemia ICD Codes: D64.9 - Anemia, unspecified SNOMED: 237769684 (7) Acute renal failure ICD Codes: N17.9 - Acute kidney failure, unspecified SNOMED: 14354753 (8) right hip wound infecion/ulcer/osteo (9) Sepsis ICD Codes: A41.9 - Sepsis SNOMED: 53827101 (10) Cellulitis ICD Codes: L03.90 - Cellulitis, unspecified SNOMED: 991881711 (11) Abdominal pain ICD Codes: R10.9 - Unspecified abdominal pain SNOMED: 92222740 (12) Dehydration ICD Codes: E86.0 - Dehydration SNOMED: 22719263 Status: stable Assessment/Plan: iv abx surgery eval follow up cultures pain rx colosotmy care wound care Subjective ROS Limited/Unobtainable: No Constitutional: Reports: malaise, weakness HEENT: Reports: no symptoms Cardiovascular: Reports: no symptoms Respiratory: Reports: no symptoms Gastrointestinal/Abdominal: Reports: no symptoms Genitourinary: Reports: no symptoms 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: Reports: no symptoms Endocrine: Reports: no symptoms Hematologic/Lymphatic: Reports: no symptoms Allergies: Coded Allergies: CEFTRIAXONE (Verified Allergy, Intermediate, SOB, HR-140bpm, face swollen , pt became red, 10/24/15) CODEINE (Verified Allergy, Intermediate, SWELLING, 01/03/11) LATEX (Verified Allergy, Intermediate, SWELLING, 01/03/11) PIPERACILLIN (Verified Allergy, Intermediate, Itching, 08/29/15) 08/29/15 tolerates Ceftaroline TAZOBACTAM (Verified Allergy, Intermediate, Itching, 01/29/15) POLYMYXIN B (Verified Allergy, Mild, Rash, 04/08/16) Suspected allergy reported by VANCOMYCIN (Verified Allergy, Mild, 07/15/14) ASPARAGINASE (Verified Allergy, Unknown, 01/28/14) CEFUROXIME (Unverified Allergy, Unknown, 04/19/16) IRON (Verified Allergy, Unknown, 01/28/14) LATEX, NATURAL RUBBER (Unverified Allergy, Unknown, 06/18/16) All Systems: reviewed and negative except above Subjective c/o pain. no fevers. Ct noted. ID and pulm noted. Objective Last 24 Hour Vital Signs Date Time Temp Pulse Resp B/P (MAP) Pulse Ox O2 Delivery O2 Flow Rate FiO2 08/19/19 09:00 Room Air 08/19/19 08:00 Room Air 08/19/19 08:00 98.6 112 18 120/56 (77) 98 08/19/19 06:03 98.0 08/19/19 04:00 98.0 100 19 124/60 (81) 97 08/19/19 00:00 98.8 110 18 106/55 (72) 98 08/18/19 21:00 Room Air 08/18/19 20:00 98.2 109 18 110/60 (77) 98 08/18/19 16:54 98.2 117 18 121/59 (79) 98 08/18/19 15:57 98.2 08/18/19 13:03 Room Air 08/18/19 12:55 98.2 107 18 128/70 (89) 98 08/18/19 12:40 98.7 82 18 107/87 99 Room Air 08/18/19 11:26 98.8 97 16 105/63 99 Room Air 91 Intake and Output 08/18/19 08/19/19 19:00 07:00 Intake Total 480 ml 850 ml Output Total 230 ml Balance 250 ml 850 ml Intake Oral 480 ml 850 ml Stool Total 230 ml # Voids 2 2 Height (Feet): 5 Height (Inches): 5.00 Weight (Pounds): 220 General Appearance: WD/WN, alert Neck: supple Cardiovascular: normal peripheral pulses, normal rate, regular rhythm Respiratory/Chest: chest wall non-tender, lungs clear, normal breath sounds, no respiratory distress Abdomen: normal bowel sounds, non tender, soft, no organomegaly, no mass Edema: no edema noted Arm (L), no edema noted Arm (R), no edema noted Leg (L), no edema noted Leg (R), no edema noted Pedal (L), no edema noted Pedal (R), no edema noted Generalized Neurologic: utility locator II-XII grossly normal, alert, motor weakness, sensory deficit Jacques Chanel MD August 19, 2019 10:50
[2019-08-19 12:00] VITALS: BP 127/63
--- NOTE | 2019-08-19 12:56 | NUR ---
NURSE NOTES: Spoke to Diego from [employer] regarding pressure relieving mattress order but mattress is not expected to arrive today. Will endorse to oncoming nurse.
--- NOTE | 2019-08-19 14:00 | NUR ---
NURSE NOTES: Fluid restrictions in place. Patient has 500cc soda at bedside. Patient wants to continue drinking fluids.
--- NOTE | 2019-08-19 14:30 | NUR ---
NURSE NOTES: Patient refused UA. Patient stated, "I'm incontinent, you cant get urine from me". Patient made aware of different methods to collect urine, patient continued to refuse.
--- NOTE | 2019-08-19 15:57 | NUR ---
NURSE NOTES: Pressure relief mattress in place.
[2019-08-19 16:00] VITALS: BP 125/61
[2019-08-19] MEDS: NovoLOG Insulin Flexpen SUBQ SCH ×2 (16:30→21:00)
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
[2019-08-19] MEDS: Levofloxacin 500mg tab ORAL SCH (17:00)
[2019-08-19 18:50] LABS: HEMATOCRIT 24.6 % (37.0-47.0); HEMOGLOBIN 7.4 G/DL (12.0-16.0); MEAN CORPUSCULAR VOLUME 86 FL (80-99); PLATELET COUNT 522 K/UL (150-450); RED BLOOD COUNT 2.85 M/UL (4.20-5.40); RED CELL DISTRIBUTION WIDTH 17.1 % (11.6-14.8); WHITE BLOOD COUNT 13.9 K/UL (4.8-10.8)
[2019-08-19 19:05] LABS: ALANINE AMINOTRANSFERASE 9 U/L (12-78); ALBUMIN 1.3 G/DL (3.4-5.0); ANION GAP 13 mmol/L (5-15); ASPARTATE AMINO TRANSFERASE 10 U/L (15-37); BILIRUBIN,TOTAL 0.3 MG/DL (0.2-1.0); BLOOD UREA NITROGEN 29 mg/dL (7-18); CARBON DIOXIDE 22 MMOL/L (21-32); CHLORIDE 98 MMOL/L (98-107); POTASSIUM 4.7 MMOL/L (3.5-5.1); SODIUM 132 MMOL/L (136-145)
[2019-08-19 19:06] LABS: ALBUMIN/GLOBULIN RATIO 0.2 (1.0-2.7); ALKALINE PHOSPHATASE 100 U/L (46-116)
[2019-08-19 20:00] VITALS: BP 121/63
[2019-08-19] MEDS: Dyna-Hex 2% Top Sol 2oz TOPIC SCH (20:00)
--- NOTE | 2019-08-19 20:00 | NUR ---
NURSE NOTES: RECEIVED PATIENT LYING IN BED, AWAKE, ALERT/ORIENTED X4, VITALS OBTAINED, AFEBRILE. IV INTACT TO LEFT HAND/GAUGE 24, NO REDNESS/SWELLING NOTED, SCHEDULED FOR PICC PLACEMENT Tuesday08/20/19, PATIENT AWARE. NO SIGNS AND SYMPTOMS OF ACUTE CARDIO RESPIRATORY DISTRESS/SHORTNESS OF BREATH, DENIES CHEST PAIN. ABDOMEN SOFT/NON TENDER, COLOSTOMY LEFT LOWER QUADRANT, NOTED WITH SOFT/BROWN STOOL. SIDE RAILS UP X3/BED IN LOWEST POSITION FOR SAFETY, ENCOURAGED PATIENT TO UTILIZE CALL LIGHT FOR ASSISTANCE, VERBALIZED UNDERSTANDING. CONTINUE WITH CURRENT PLAN OF CARE. NAD.
--- NOTE | 2019-08-19 20:09 | NUR ---
HAND-OFF: Report given to Christel LANGE. Patient is stable.
--- NOTE | 2019-08-19 21:16 | NUR ---
NURSE NOTES: PATIENT NOTED WITH EMESIS X1, CLEAR WITH YELLOW SUBSTANCE; NO PRN AVAILABLE, LEFT MESSAGE FOR MD REQUESTING ZOFRAN/MYLANTA, WILL AWAIT RETURN CALL, PATIENT AWARE. PATIENT RESTING COMFORTABLY. NAD.
--- NOTE | 2019-08-19 21:50 | NUR ---
NURSE NOTES: REFUSED PM MEDICATION/ACCU CHEK-
[2019-08-20] VITALS (19 sets, daily range): BP systolic 82–127; BP diastolic 50–68
--- NOTE | 2019-08-20 02:04 | NUR ---
NURSE NOTES: EYES CLOSED ON ROUNDS, NAD.
[2019-08-20] MEDS: metroNIDAZOLE 500mg tab ORAL SCH ×3 (06:00→21:41)
[2019-08-20] MEDS: NovoLOG Insulin Flexpen SUBQ SCH ×4 (06:20→21:41)
--- NOTE | 2019-08-20 06:30 | NUR ---
NURSE NOTES: SLEPT WELL THROUGHOUT THE NIGHT. SAFETY MAINTAINED. NAD. CONTINUE TO REFUSE BLOOD SUGAR MONITORING AND MEDICATIONS, AWARE.
--- NOTE | 2019-08-20 07:19 | NUR ---
HAND-OFF: Report given to ANISA LION.
[2019-08-20 08:09] LABS: ANION GAP 12 mmol/L (5-15); BLOOD UREA NITROGEN 28 mg/dL (7-18); CALCIUM 8.6 MG/DL (8.5-10.1); CARBON DIOXIDE 21 MMOL/L (21-32); CHLORIDE 98 MMOL/L (98-107); CREATININE 0.8 MG/DL (0.55-1.30); POTASSIUM 4.8 MMOL/L (3.5-5.1); SODIUM 131 MMOL/L (136-145)
--- NOTE | 2019-08-20 08:51 | Pulmonology Progress Note ---
Subjective ROS Limited/Unobtainable: No Constitutional: Denies: fever, chills Gastrointestinal/Abdominal: Reports: nausea, vomiting - decreased Musculoskeletal: Reports: pain Allergies: Coded Allergies: CEFTRIAXONE (Verified Allergy, Intermediate, SOB, HR-140bpm, face swollen , pt became red, 10/24/15) CODEINE (Verified Allergy, Intermediate, SWELLING, 01/03/11) LATEX (Verified Allergy, Intermediate, SWELLING, 01/03/11) PIPERACILLIN (Verified Allergy, Intermediate, Itching, 08/29/15) 08/29/15 tolerates Ceftaroline TAZOBACTAM (Verified Allergy, Intermediate, Itching, 01/29/15) POLYMYXIN B (Verified Allergy, Mild, Rash, 04/08/16) Suspected allergy reported by VANCOMYCIN (Verified Allergy, Mild, 07/15/14) ASPARAGINASE (Verified Allergy, Unknown, 01/28/14) CEFUROXIME (Unverified Allergy, Unknown, 04/19/16) IRON (Verified Allergy, Unknown, 01/28/14) LATEX, NATURAL RUBBER (Unverified Allergy, Unknown, 06/18/16) All Systems: reviewed and negative except above Subjective improved pain poor surgical candidate Objective Last 24 Hour Vital Signs Date Time Temp Pulse Resp B/P (MAP) Pulse Ox O2 Delivery O2 Flow Rate FiO2 08/20/19 04:00 98.1 105 22 104/57 (73) 96 08/20/19 00:00 99.0 117 22 105/64 (78) 98 08/19/19 21:00 Room Air 08/19/19 20:00 100.0 115 22 121/63 (82) 97 08/19/19 16:00 98.5 101 17 125/61 (82) 98 08/19/19 12:00 98.4 111 18 127/63 (84) 99 08/19/19 09:00 Room Air Intake and Output 08/19/19 08/20/19 19:00 07:00 Intake Total 500 ml 360 ml Balance 500 ml 360 ml Intake Oral 500 ml 360 ml Objective GENERAL: Patient is an ill-appearing female. in pain HEENT: Negative. NECK: Supple. LUNGS: Good air entry. CARDIAC: S1, S2. Regular rate and rhythm. ABDOMEN: Soft, nontender. EXTREMITIES: With significant atrophy. Abdomen: soft, non tender Extremities: no edema Microbiology Date/Time Source Procedure Growth Status 08/17/19 12:30 Nasal Nares MRSA Culture - Final NO METHICILLIN RESISTANT STAPH AUREUS... Complete 08/18/19 10:20 Rectum VRE Culture - Final Enterococcus Faecalis - Vre Complete Laboratory Tests 08/19/19 17:40: White Blood Count 13.9H, Red Blood Count 2.85L, Hemoglobin 7.4L, Hematocrit 24.6L, Mean Corpuscular Volume 86, Mean Corpuscular Hemoglobin 26.0L, Mean Corpuscular Hemoglobin Concent 30.2L, Red Cell Distribution Width 17.1H, Platelet Count 522H, Mean Platelet Volume 7.2, Neutrophils (%) (Auto) , Lymphocytes (%) (Auto) , Monocytes (%) (Auto) , Eosinophils (%) (Auto) , Basophils (%) (Auto) , Differential Total Cells Counted 100, Neutrophils % ( Manual) 72, Lymphocytes % (Manual) 15L, Monocytes % (Manual) 3, Eosinophils % ( Manual) 3, Basophils % (Manual) 0, Band Neutrophils 7, Platelet Estimate IncreasedH, Platelet Morphology Normal, Hypochromasia 2+, Anisocytosis 2+, Sodium Level 132L, Potassium Level 4.7, Chloride Level 98, Carbon Dioxide Level 22, Anion Gap 13, Blood Urea Nitrogen 29H, Creatinine 1.0, Estimat Glomerular Filtration Rate > 60, Glucose Level 230H, Osmolality 286L, Calcium Level 9.0, Total Bilirubin 0.3, Aspartate Amino Transf (AST/SGOT) 10L, Alanine Aminotransferase (ALT/SGPT) 9L, Alkaline Phosphatase 100, Total Protein 7.3, Albumin 1.3L, Globulin 6.0, Albumin/Globulin Ratio 0.2L, Thyroid Stimulating Hormone (TSH) 4.016H 08/20/19 05:37: Sodium Level 131L, Potassium Level 4.8, Chloride Level 98, Carbon Dioxide Level 21, Anion Gap 12, Blood Urea Nitrogen 28H, Creatinine 0.8, Estimat Glomerular Filtration Rate > 60, Glucose Level 182H, Calcium Level 8.6, Cortisol AM Sample [Pending] Current Medications Medications (Trade) Dose Ordered Sig/Pineda Route PRN Reason Start Time Stop Time Status Last Admin Dose Admin Acetaminophen/ Hydrocodone Bitart ([place] 10/325) 1 tab Q4HR PRN ORAL Mild Pain (Pain Scale 1-3) 08/18/19 07:45 08/25/19 07:44 Acetaminophen/ Hydrocodone Bitart ([place] 10/325) 2 tab Q4HR PRN ORAL Moderate Pain (Pain Scale 4-6) 08/18/19 07:45 08/25/19 07:44 Chlorhexidine Gluconate ([place]-Hex 2%) 1 applic DAILY@2000 TOPIC 08/18/19 20:00 11/16/19 19:59 Dextrose (Dextrose 50%) 25 ml Q30M PRN IV Hypoglycemia 08/19/19 13:15 11/17/19 13:14 Dextrose (Dextrose 50%) 50 ml Q30M PRN IV Hypoglycemia 08/19/19 13:15 11/17/19 13:14 Hydromorphone HCl (Dilaudid) 2 mg Q4H PRN IM Severe Pain (Pain Scale 7-10) 08/18/19 19:30 08/25/19 19:29 08/20/19 08:40 Insulin Aspart (NovoLOG) BEFORE MEALS AND HS SUBQ 08/19/19 16:30 11/17/19 16:29 Levofloxacin (Levaquin) 500 mg Q24H ORAL 08/18/19 17:00 08/25/19 16:59 08/19/19 17:00 Linezolid (Zyvox) 600 mg EVERY 12 HOURS ORAL 08/18/19 09:45 08/23/19 09:44 08/19/19 09:15 Metronidazole (Flagyl) 500 mg Q8H ORAL 08/18/19 22:00 08/25/19 21:59 08/19/19 14:04 Assessment/Plan Assessment/Plan IMPRESSION: Multiple abscesses, hyponatremia, hyperkalemia, acute renal failure, shortness of breath, dyspnea, leukocytosis, anemia, thrombocytosis. PLAN PICC oxygen as needed repeat transfusion if patient agrees linezolid per ID await cultures hydrate monitor HH discuss transfer impression, plan, and exam edited and reviewed in detail care discussed with Thanh Garcia MD August 20, 2019 08:51
--- NOTE | 2019-08-20 10:55 | Consultation ---
History of Present Illness General Date patient seen: August 20, 2019 Time patient seen: 10:49 Chief Complaint: Skin Rash/Abscess Present Illness HPI Patient well known to me. Was discharged on 08/14/19 after inpatient stay for left knee infection and bacteremia. was home for 48 hours but developed lower back pain. Went to ER on 08/17/[address] showed paraspinal abscess. Was admitted and started on IV abx. 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 ID following. Her pain is controlled with pain medication. No fevers. WBC is lower than admission. Allergies: Coded Allergies: CEFTRIAXONE (Verified Allergy, Intermediate, SOB, HR-140bpm, face swollen , pt became red, 10/24/15) CODEINE (Verified Allergy, Intermediate, SWELLING, 01/03/11) LATEX (Verified Allergy, Intermediate, SWELLING, 01/03/11) PIPERACILLIN (Verified Allergy, Intermediate, Itching, 08/29/15) 08/29/15 tolerates Ceftaroline TAZOBACTAM (Verified Allergy, Intermediate, Itching, 01/29/15) POLYMYXIN B (Verified Allergy, Mild, Rash, 04/08/16) Suspected allergy reported by VANCOMYCIN (Verified Allergy, Mild, 07/15/14) ASPARAGINASE (Verified Allergy, Unknown, 01/28/14) CEFUROXIME (Unverified Allergy, Unknown, 04/19/16) IRON (Verified Allergy, Unknown, 01/28/14) LATEX, NATURAL RUBBER (Unverified Allergy, Unknown, 06/18/16) Medication History Scheduled Cubicin (Cubicin), 1 MG IV DAILY Diphenhydramine HCl (Benadryl), 25 MG PO TID Epinephrine (Epipen 2-Vinicio), 0.3 MG IM ONCE Escitalopram Oxalate* (Lexapro*), 10 MG ORAL DAILY, (Reported) Famotidine* (Pepcid 20mg tablet*), 20 MG ORAL TWICE A DAY Methocarbamol* (Robaxin-750*), 750 MG PO TID Methocarbamol* (Robaxin-750*), 750 MG PO TID Pantoprazole* (Protonix*), 40 MG ORAL DAILY, (Reported) Prednisone* (Prednisone*), 50 MG ORAL DAILY Scheduled PRN Acetaminophen (Acetaminophen), 650 MG ORAL Q4HR PRN for Fever/Headache/Mild Pain , (Reported) Al Hydroxide/mg Hydroxide (Mag-Al Plus Suspension), 30 ML ORAL Q4HR PRN for dyspepsia, (Reported) Albuterol Sulfate* (Albuterol Sulfate Mdi*), 2 PUFF INH Q4H PRN for Constipation , (Reported) Hydrocodone Bit/Acetaminophen 10-325* ([place] 10-325*), 1 TAB ORAL Q6H PRN for For Pain, (Reported) Magnesium Hydroxide* (Milk Of Magnesia*), 30 ML ORAL HS PRN for Constipation, ( Reported) Zolpidem Tartrate* (Ambien*), 5 MG ORAL BEDTIME PRN for insomnia, (Reported) Patient History History Provided By: Patient Healthcare decision maker Resuscitation status Advanced Directive on File Review of Systems Constitutional: Reports: no symptoms Respiratory: Reports: no symptoms Musculoskeletal: Reports: no symptoms, see HPI, back pain - lower back pain, gout, joint pain, joint swelling, muscle pain, muscle stiffness, other Hematologic/Lymphatic: Reports: anemia Physical Exam General Appearance: no apparent distress, alert Lines, tubes and drains: peripheral Respiratory/Chest: no respiratory distress Abdomen: soft Skin Exam: other - Lower back with tenderness to palpation. No flucutance or crepitus palpable or visible. Last 24 Hour Vital Signs Date Time Temp Pulse Resp B/P (MAP) Pulse Ox O2 Delivery O2 Flow Rate FiO2 08/20/19 08:00 98.2 101 18 127/62 (83) 98 08/20/19 04:00 98.1 105 22 104/57 (73) 96 08/20/19 00:00 99.0 117 22 105/64 (78) 98 08/19/19 21:00 Room Air 08/19/19 20:00 100.0 115 22 121/63 (82) 97 08/19/19 16:00 98.5 101 17 125/61 (82) 98 08/19/19 12:00 98.4 111 18 127/63 (84) 99 Intake and Output 08/19/19 08/20/19 19:00 07:00 Intake Total 500 ml 360 ml Balance 500 ml 360 ml Intake Oral 500 ml 360 ml Laboratory Tests Test 08/19/19 17:40 08/20/19 05:37 White Blood Count 13.9 K/UL (4.8-10.8) H Red Blood Count 2.85 M/UL (4.20-5.40) L Hemoglobin 7.4 G/DL (12.0-16.0) L Hematocrit 24.6 % (37.0-47.0) L Mean Corpuscular Volume 86 FL (80-99) Mean Corpuscular Hemoglobin 26.0 PG (27.0-31.0) L Mean Corpuscular Hemoglobin Concent 30.2 G/DL (32.0-36.0) L Red Cell Distribution Width 17.1 % (11.6-14.8) H Platelet Count 522 K/UL (150-450) H Mean Platelet Volume 7.2 FL (6.5-10.1) Neutrophils (%) (Auto) % (45.0-75.0) Lymphocytes (%) (Auto) % (20.0-45.0) Monocytes (%) (Auto) % (1.0-10.0) Eosinophils (%) (Auto) % (0.0-3.0) Basophils (%) (Auto) % (0.0-2.0) Differential Total Cells Counted 100 Neutrophils % (Manual) 72 % (45-75) Lymphocytes % (Manual) 15 % (20-45) L Monocytes % (Manual) 3 % (1-10) Eosinophils % (Manual) 3 % (0-3) Basophils % (Manual) 0 % (0-2) Band Neutrophils 7 % (0-8) Platelet Estimate Increased H Platelet Morphology Normal Hypochromasia 2+ Anisocytosis 2+ Sodium Level 132 MMOL/L (136-145) L 131 MMOL/L (136-145) L Potassium Level 4.7 MMOL/L (3.5-5.1) 4.8 MMOL/L (3.5-5.1) Chloride Level 98 MMOL/L (98-107) 98 MMOL/L (98-107) Carbon Dioxide Level 22 MMOL/L (21-32) 21 MMOL/L (21-32) Anion Gap 13 mmol/L (5-15) 12 mmol/L (5-15) Blood Urea Nitrogen 29 mg/dL (7-18) H 28 mg/dL (7-18) H Creatinine 1.0 MG/DL (0.55-1.30) 0.8 MG/DL (0.55-1.30) Estimat Glomerular Filtration Rate > 60 mL/min (>60) > 60 mL/min (>60) Glucose Level 230 MG/DL (74-106) H 182 MG/DL (74-106) H Osmolality 286 mOsm/kg (297-317) L Calcium Level 9.0 MG/DL (8.5-10.1) 8.6 MG/DL (8.5-10.1) Total Bilirubin 0.3 MG/DL (0.2-1.0) Aspartate Amino Transf (AST/SGOT) 10 U/L (15-37) L Alanine Aminotransferase (ALT/SGPT) 9 U/L (12-78) L Alkaline Phosphatase 100 U/L (46-116) Total Protein 7.3 G/DL (6.4-8.2) Albumin 1.3 G/DL (3.4-5.0) L Globulin 6.0 g/dL Albumin/Globulin Ratio 0.2 (1.0-2.7) L Thyroid Stimulating Hormone (TSH) 4.016 uiU/mL (0.358-3.740) Cortisol AM Sample Pending Height (Feet): 5 Height (Inches): 5.00 Weight (Pounds): 220 Medications Current Medications Medications (Trade) Dose Ordered Sig/Pineda Route PRN Reason Start Time Stop Time Status Last Admin Dose Admin Acetaminophen (Tylenol) 650 mg Q4H PRN ORAL Mild Pain (Pain Scale 1-3) 08/20/19 10:15 09/19/19 10:14 Acetaminophen/ Hydrocodone Bitart ([place] 10/325) 1 tab Q4HR PRN ORAL Mild Pain (Pain Scale 1-3) 08/18/19 07:45 08/25/19 07:44 Acetaminophen/ Hydrocodone Bitart ([place] 10/325) 2 tab Q4HR PRN ORAL Moderate Pain (Pain Scale 4-6) 08/18/19 07:45 08/25/19 07:44 Al Hydroxide/Mg Hydroxide (Mylanta) 30 ml Q4H PRN ORAL INDIGESTION 08/20/19 10:15 09/19/19 10:14 Chlorhexidine Gluconate (Nereida-Hex 2%) 1 applic DAILY@2000 TOPIC 08/18/19 20:00 11/16/19 19:59 Dextrose (Dextrose 50%) 25 ml Q30M PRN IV Hypoglycemia 08/19/19 13:15 11/17/19 13:14 Dextrose (Dextrose 50%) 50 ml Q30M PRN IV Hypoglycemia 08/19/19 13:15 11/17/19 13:14 Hydromorphone HCl (Dilaudid) 2 mg Q4H PRN IM Severe Pain (Pain Scale 7-10) 08/18/19 19:30 08/25/19 19:29 08/20/19 08:40 Insulin Aspart (NovoLOG) BEFORE MEALS AND HS SUBQ 08/19/19 16:30 11/17/19 16:29 Levofloxacin (Levaquin) 500 mg Q24H ORAL 08/18/19 17:00 08/25/19 16:59 08/19/19 17:00 Linezolid (Zyvox) 600 mg EVERY 12 HOURS ORAL 08/18/19 09:45 08/23/19 09:44 08/19/19 09:15 Metronidazole (Flagyl) 500 mg Q8H ORAL 08/18/19 22:00 08/25/19 21:59 08/19/19 14:04 Ondansetron HCl (Zofran) 4 mg Q6H PRN IVP Nausea & Vomiting 08/20/19 10:15 09/19/19 10:14 Pantoprazole (Protonix) 40 mg DAILY ORAL 08/20/19 10:18 09/19/19 10:17 Assessment/Plan Status: stable Assessment/Plan: Patient with paraspinal abscess that extends into psoas muscles. This is not amenable to bedside drainage and will schedule for CT Guided drainage today. Order placed. Will continue IV abx and ID will make adjustments based on culture results. Discussed the case with radiologist. Keegan Cristobal MD August 20, 2019 10:55
[2019-08-20] MEDS ORDERED: Lidocaine 1% Plain 30 ml INJ PRN ×2 (11:00→12:57)
--- NOTE | 2019-08-20 11:39 | Infectious Diseases Prog Note ---
Assessment/Plan Assessment/Plan antibiotics : linezolid, levoquin, flagyl A 1. lumbar abscess 2. staph aureus sepsis 3. left knee septic arthritis 4. paraplegia P 1. continue linezolid, levoquin, flagyl 2. will follow up cultures 3. suggest spine surgery evaluation Subjective Constitutional: Denies: fever, chills Respiratory: Denies: shortness of breath, dry cough Gastrointestinal/Abdominal: Reports: nausea, vomiting - yesterday Musculoskeletal: Reports: pain - in back Allergies: Coded Allergies: CEFTRIAXONE (Verified Allergy, Intermediate, SOB, HR-140bpm, face swollen , pt became red, 10/24/15) CODEINE (Verified Allergy, Intermediate, SWELLING, 01/03/11) LATEX (Verified Allergy, Intermediate, SWELLING, 01/03/11) PIPERACILLIN (Verified Allergy, Intermediate, Itching, 08/29/15) 08/29/15 tolerates Ceftaroline TAZOBACTAM (Verified Allergy, Intermediate, Itching, 01/29/15) POLYMYXIN B (Verified Allergy, Mild, Rash, 04/08/16) Suspected allergy reported by VANCOMYCIN (Verified Allergy, Mild, 07/15/14) ASPARAGINASE (Verified Allergy, Unknown, 01/28/14) CEFUROXIME (Unverified Allergy, Unknown, 04/19/16) IRON (Verified Allergy, Unknown, 01/28/14) LATEX, NATURAL RUBBER (Unverified Allergy, Unknown, 06/18/16) Objective Vital Signs Last 24 Hour Vital Signs Date Time Temp Pulse Resp B/P (MAP) Pulse Ox O2 Delivery O2 Flow Rate FiO2 08/20/19 08:00 98.2 101 18 127/62 (83) 98 08/20/19 04:00 98.1 105 22 104/57 (73) 96 08/20/19 00:00 99.0 117 22 105/64 (78) 98 08/19/19 21:00 Room Air 08/19/19 20:00 100.0 115 22 121/63 (82) 97 08/19/19 16:00 98.5 101 17 125/61 (82) 98 08/19/19 12:00 98.4 111 18 127/63 (84) 99 Height (Feet): 5 Height (Inches): 5.00 Weight (Pounds): 220 Microbiology Date/Time Source Procedure Growth Status 08/17/19 12:30 Nasal Nares MRSA Culture - Final NO METHICILLIN RESISTANT STAPH AUREUS... Complete 08/18/19 10:20 Rectum VRE Culture - Final Enterococcus Faecalis - Vre Complete Laboratory Tests Test 08/19/19 17:40 08/20/19 05:37 White Blood Count 13.9 K/UL (4.8-10.8) H Red Blood Count 2.85 M/UL (4.20-5.40) L Hemoglobin 7.4 G/DL (12.0-16.0) L Hematocrit 24.6 % (37.0-47.0) L Mean Corpuscular Volume 86 FL (80-99) Mean Corpuscular Hemoglobin 26.0 PG (27.0-31.0) L Mean Corpuscular Hemoglobin Concent 30.2 G/DL (32.0-36.0) L Red Cell Distribution Width 17.1 % (11.6-14.8) H Platelet Count 522 K/UL (150-450) H Mean Platelet Volume 7.2 FL (6.5-10.1) Neutrophils (%) (Auto) % (45.0-75.0) Lymphocytes (%) (Auto) % (20.0-45.0) Monocytes (%) (Auto) % (1.0-10.0) Eosinophils (%) (Auto) % (0.0-3.0) Basophils (%) (Auto) % (0.0-2.0) Differential Total Cells Counted 100 Neutrophils % (Manual) 72 % (45-75) Lymphocytes % (Manual) 15 % (20-45) L Monocytes % (Manual) 3 % (1-10) Eosinophils % (Manual) 3 % (0-3) Basophils % (Manual) 0 % (0-2) Band Neutrophils 7 % (0-8) Platelet Estimate Increased H Platelet Morphology Normal Hypochromasia 2+ Anisocytosis 2+ Sodium Level 132 MMOL/L (136-145) L 131 MMOL/L (136-145) L Potassium Level 4.7 MMOL/L (3.5-5.1) 4.8 MMOL/L (3.5-5.1) Chloride Level 98 MMOL/L (98-107) 98 MMOL/L (98-107) Carbon Dioxide Level 22 MMOL/L (21-32) 21 MMOL/L (21-32) Anion Gap 13 mmol/L (5-15) 12 mmol/L (5-15) Blood Urea Nitrogen 29 mg/dL (7-18) H 28 mg/dL (7-18) H Creatinine 1.0 MG/DL (0.55-1.30) 0.8 MG/DL (0.55-1.30) Estimat Glomerular Filtration Rate > 60 mL/min (>60) > 60 mL/min (>60) Glucose Level 230 MG/DL (74-106) H 182 MG/DL (74-106) H Osmolality 286 mOsm/kg (297-317) L Calcium Level 9.0 MG/DL (8.5-10.1) 8.6 MG/DL (8.5-10.1) Total Bilirubin 0.3 MG/DL (0.2-1.0) Aspartate Amino Transf (AST/SGOT) 10 U/L (15-37) L Alanine Aminotransferase (ALT/SGPT) 9 U/L (12-78) L Alkaline Phosphatase 100 U/L (46-116) Total Protein 7.3 G/DL (6.4-8.2) Albumin 1.3 G/DL (3.4-5.0) L Globulin 6.0 g/dL Albumin/Globulin Ratio 0.2 (1.0-2.7) L Thyroid Stimulating Hormone (TSH) 4.016 uiU/mL (0.358-3.740) Cortisol AM Sample Pending Current Medications Medications (Trade) Dose Ordered Sig/Pineda Route PRN Reason Start Time Stop Time Status Last Admin Dose Admin Acetaminophen (Tylenol) 650 mg Q4H PRN ORAL Mild Pain (Pain Scale 1-3) 08/20/19 10:15 09/19/19 10:14 Acetaminophen/ Hydrocodone Bitart ([place] 10/325) 1 tab Q4HR PRN ORAL Mild Pain (Pain Scale 1-3) 08/18/19 07:45 08/25/19 07:44 Acetaminophen/ Hydrocodone Bitart ([place] 10/325) 2 tab Q4HR PRN ORAL Moderate Pain (Pain Scale 4-6) 08/18/19 07:45 08/25/19 07:44 Al Hydroxide/Mg Hydroxide (Mylanta) 30 ml Q4H PRN ORAL INDIGESTION 08/20/19 10:15 09/19/19 10:14 Chlorhexidine Gluconate (Nereida-Hex 2%) 1 applic DAILY@1999 TOPIC 08/18/19 20:00 11/16/19 19:59 Dextrose (Dextrose 50%) 25 ml Q30M PRN IV Hypoglycemia 08/19/19 13:15 11/17/19 13:14 Dextrose (Dextrose 50%) 50 ml Q30M PRN IV Hypoglycemia 08/19/19 13:15 11/17/19 13:14 Hydromorphone HCl (Dilaudid) 2 mg Q4H PRN IM Severe Pain (Pain Scale 7-10) 08/18/19 19:30 08/25/19 19:29 08/20/19 08:40 Insulin Aspart (NovoLOG) BEFORE MEALS AND HS SUBQ 08/19/19 16:30 11/17/19 16:29 Levofloxacin (Levaquin) 500 mg Q24H ORAL 08/18/19 17:00 08/25/19 16:59 08/19/19 17:00 Lidocaine HCl (Xylocaine 1% 30ml) 30 ml ONCE PRN INJ CATH 08/20/19 11:00 08/20/19 23:59 Linezolid (Zyvox) 600 mg EVERY 12 HOURS ORAL 08/18/19 09:45 08/23/19 09:44 08/19/19 09:15 Metronidazole (Flagyl) 500 mg Q8H ORAL 08/18/19 22:00 08/25/19 21:59 08/19/19 14:04 Ondansetron HCl (Zofran) 4 mg Q6H PRN IVP Nausea & Vomiting 08/20/19 10:15 09/19/19 10:14 Pantoprazole (Protonix) 40 mg DAILY ORAL 08/20/19 10:18 09/19/19 10:17 Deng Reyes MD August 20, 2019 11:38
[2019-08-20] MEDS ORDERED: Omnipaque-300 100ml vial INJ PRN (12:57)
[2019-08-20] MEDS ORDERED: Heparin1,000 units/500ml Premix(Conc:2 units/ml) INJ PRN (13:00)
[2019-08-20 13:08] LABS: INR 1.2 (0.9-1.1)
--- NOTE | 2019-08-20 13:38 | NUR ---
NURSE NOTES: patient is being transported to for PICC placement, and also will do CT guided drain placement catheter, informed transporter to endorse it needs to be collected aerobic and anaerobic fluid. Prior to transportation patient was cleaned and dressing changed on L knee and L buttock and sacral. Patient refused nurse to place a 4th large optifoam at the right side of the wound. Placed a large suresite over the optifoam on sacral to help adherence of the dressing to skin but nurse was unable to take off the blue plastic over and patient didn't allow her to spend more time trying to remove it. Patient also refused to let nurse to empty colostomy bag, which is half full, saying it was only air, and she herself removed the air. Moreover, patient refused am meds, even though nurse explained the need to take them and possible consequences of not taking them.
[2019-08-20] MEDS ORDERED: fentaNYL 100 mcg/2 mL IV ONE (14:17)
[2019-08-20] MEDS ORDERED: Lidocaine 1% Plain 30 ml INJ ONE (14:17)
[2019-08-20] MEDS ORDERED: Midazolam 2mg/2ml Inj ONE (14:18)
--- NOTE | 2019-08-20 14:58 | Brief Operative Note ---
Immediate Post Operative Note Operative Note Pre-op Diagnosis: needs terminal carman IV access Procedure: PICC L arm Post-op Diagnosis: same Post-op Diagnosis: same as pre-op Surgeon: Lourdes Reynoso Anesthesia: local Specimen: none Complications: none Fluids: none Implant(s) used?: No David Reynoso MD August 20, 2019 14:58
--- NOTE | 2019-08-20 15:07 | Moderate Sedation - Procedural ---
Moderate Sedation HPI Home Medication Active Scripts Methocarbamol* (ROBAXIN-750*) 750 Mg Tablet, 750 MG PO TID, #21 TAB 0 Refills Prov:James Bradley DO 12/12/17 Methocarbamol* (ROBAXIN-750*) 750 Mg Tablet, 750 MG PO TID, #21 TAB 0 Refills Prov:James Bradley DO 12/12/17 Prednisone* (PREDNISONE*) 50 Mg Tablet, 50 MG ORAL DAILY for 3 Days, #3 TAB 0 Refills Prov:Alina Herzog MD 11/21/17 Famotidine* (Pepcid 20mg tablet*) 20 Mg Tablet, 20 MG ORAL TWICE A DAY for 3 Days, #606 TAB 0 Refills Prov:Alina Herzog MD 11/21/17 Diphenhydramine HCl (Benadryl) 25 Mg Capsule, 25 MG PO TID for 3 Days, #9 CAP Prov:Alina Herzog MD 11/21/17 Epinephrine (Epipen 2-Vinicio) 0.3 Mg/0.3 Ml Auto.injct, 0.3 MG IM ONCE for severe allergic reaction, #1 EA Prov:Alina Herzog MD 11/21/17 Cubicin (Cubicin) 500 Mg Vial, 1 MG IV DAILY for 28 Days, VIAL Prov:Jacques Chanel MD 08/15/17 Reported Medications Hydrocodone Bit/Acetaminophen 10-325* ([place] 10-325*) 1 Each Tablet, 1 TAB ORAL Q6H PRN for For Pain, #10 TAB 0 Refills PRN PAIN 08/17/19 Escitalopram Oxalate* (LEXAPRO*) 10 Mg Tablet, 10 MG ORAL DAILY, TAB 07/10/17 Albuterol Sulfate* (ALBUTEROL SULFATE MDI*) 8.5 Gm Hfa.aer.ad, 2 PUFF INH Q4H PRN for Constipation, #1 INH 0 Refills 07/10/17 Acetaminophen (Acetaminophen) 650 Mg/20.3 Ml Solution, 650 MG ORAL Q4HR PRN for Fever/Headache/Mild Pain, ML 0 Refills 05/07/16 Zolpidem Tartrate* (AMBIEN*) 5 Mg Tablet, 5 MG ORAL BEDTIME PRN for insomnia, TAB 05/07/16 Pantoprazole* (PROTONIX*) 40 Mg Tablet.dr, 40 MG ORAL DAILY, TAB 05/07/16 Magnesium Hydroxide* (MILK OF MAGNESIA*) 400 Mg/5 Ml Oral.susp, 30 ML ORAL HS PRN for Constipation, ML 05/07/16 Al Hydroxide/mg Hydroxide (Mag-Al Plus Suspension) 30 Ml Oral.susp, 30 ML ORAL Q4HR PRN for dyspepsia, ML 05/07/16 Patient History Allergies: Coded Allergies: CEFTRIAXONE (Verified Allergy, Intermediate, SOB, HR-140bpm, face swollen , pt became red, 10/24/15) CODEINE (Verified Allergy, Intermediate, SWELLING, 01/03/11) LATEX (Verified Allergy, Intermediate, SWELLING, 01/03/11) PIPERACILLIN (Verified Allergy, Intermediate, Itching, 08/29/15) 08/29/15 tolerates Ceftaroline TAZOBACTAM (Verified Allergy, Intermediate, Itching, 01/29/15) POLYMYXIN B (Verified Allergy, Mild, Rash, 04/08/16) Suspected allergy reported by MD VANCOMYCIN (Verified Allergy, Mild, 07/15/14) ASPARAGINASE (Verified Allergy, Unknown, 01/28/14) CEFUROXIME (Unverified Allergy, Unknown, 04/19/16) IRON (Verified Allergy, Unknown, 01/28/14) LATEX, NATURAL RUBBER (Unverified Allergy, Unknown, 06/18/16) Pre-Procedural Mod Sedation Date: August 20, 2019 Pre-Assessment Time: 15:15 Pre-Sedation Assessment: Eval. Immed. Prior to Sed Airway Assessment (Malampati): III Evaluation Hx of untoward rxns to mod sed: No Procedures/Plans: Radiology Plan for Moderate Sedation: Fentanyl ASA Score: II Informed Consent The nature of the procedure/sedation; its benefits; risks and complications; and alternatives (and the risks and benefits of such alternatives) were discussed with the patient (or their legal outreach representative), prior to the procedure. All questions were answered to the patient's (or their legal outreach representative's) satisfaction and the patient (or their legal outreach representative) gave informed consent to the procedure. I attest that I re-evaluated the patient just prior to the surgery and that there has been no change in the patient's H&P, except as documented below: Post Procedure Assessment Post Procedure TIme: 17:00 Communication: No Apparent Limitation Mental Status: Awake Respiration: Unlabored Skin Condition: WNL Adomen: WNL Nausea: NO Vomiting: NO David Whittington MD August 20, 2019 15:07
--- NOTE | 2019-08-20 15:08 | Pre-Procedure Note/Attestation ---
Pre-Procedure Note/Attestation Complete Prior to Procedure Planned Procedure: not applicable Procedure Narrative: lumbar abscess drainage under CT Indications for Procedure Pre-Operative Diagnosis: Lumbar abscess Attestation I attest that I discussed the nature of the procedure; its benefits; risks and complications; and alternatives (and the risks and benefits of such alternatives ), prior to the procedure, with the patient (or the patient's legal product representative). I attest that, if there was a reasonable possibility of needing a blood transfusion, the patient (or the patient's legal product representative) was given the [facility] standardized written summary, pursuant to the Wally Tami Blood Safety Act ([place] Health and Safety Code # 1645, as amended). I attest that I re-evaluated the patient just prior to the surgery and that there has been no change in the patient's H&P, except as documented below: David Whittington MD August 20, 2019 15:08
--- NOTE | 2019-08-20 17:05 | Brief Operative Note ---
Immediate Post Operative Note Operative Note Pre-op Diagnosis: Lumbar abscess Procedure: placement of two drainage catheters in the lumbar region Post-op Diagnosis: same Post-op Diagnosis: same as pre-op Surgeon: Lourdes Reynoso Anesthesia: moderate sedation Specimen: yes - Pus from both collections sent to lab Complications: none Condition: stable Fluids: none Drains: other - 8F and 8.5 F pigtails Implant(s) used?: No David Reynoso MD August 20, 2019 17:05
--- NOTE | 2019-08-20 17:42 | Diagnostic Imaging Report ---
Indications: Needs long-term IV access Technique: Ultrasound confirms patent compressible left basilic vein. Total sterile technique, including sterile probe cover and sterile gel, hat, mask, sterile gown, large sterile drape, and preparation with 2% chlorhexidine utilized. Local anesthesia with 1% lidocaine. Under real-time ultrasound guidance, puncture of the vein using 21-gauge needle, documented and archived, passage 0.018 guidewire under direct fluoroscopy, which would not pass beyond the axilla. A limited venogram was performed. A hydrophilic steerable guidewire was introduced, was successfully manipulated into the central veins. 4 Malay peel-away sheath was inserted, followed by introduction of a Kumpe catheter. The hydrophilic wire was exchanged for the PICC wire, used to measure the appropriate catheter length. 4 Malay Bard dual-lumen power PICC cut to 45 cm. It was inserted through the peel-away sheath. Peel-away sheath and guidewire removed. Catheter could not be inserted the entire way, but was left with the tip at the innominate venous confluence. Catheter fixed to the skin. Both catheter ports aspirated and flushed. Patient tolerated procedure well, without immediate complication. Digital radiograph documents satisfactory catheter tip position, at the cavoatrial junction. Note that an attempt was originally made at accessing the right arm, unsuccessful due to inability to pass a guidewire into a limited distention centrally Total fluoroscopy time 273 seconds. Total dose area product [id number] mGym2 Total number of images: 3 Impression: Successful placement of left arm PICC under sonographic and fluoroscopic guidance, as described above.
--- NOTE | 2019-08-20 17:47 | Diagnostic Imaging Report ---
Indication: Lumbar abscess demonstrated on recent lumbar CT scan Technique: With the patient prone, IV contrast was injected. Spiral acquisitions obtained through the lumbar spine region with markers in place. Intended puncture sites sterilely prepped and draped. Local anesthesia with 1% lidocaine. Initially, the superficial central posterior abscess was accessed with a Yueh needle. 60 mL of pus forcibly aspirated. The right side of the paraspinous abscess was then accessed using a 21-gauge [place] stick needle under CT supervision. Return of pus was documented. Passage 0.018 guidewire, insertion 6 Gu[place]an introducer, exchanged for quadrant 3 5 guidewire, passage of a 9 Guinean dilator, followed by insertion of an 8.5 Guinean pigtail catheter. Manipulations were done under with intermittent CT imaging. Finally, given lack of complete evacuation of the superficial midline abscess, this was accessed with a 8 Guinean Dominguez-Crockett catheter using trocar technique. The patient tolerated the procedure well, without immediate complication. Total dose length product 2946 mGycm. CTDIvol(s) 15, 13 x 4, 7 x 6 mGy. Radiation dose was minimized using automated exposure control Comparison: 08/17/2019 Findings: Initial images with contrast document large complex spinous/paraspinous abscess as well as central posterior midline superficial abscess. Final images demonstrated good position of both drainage catheters. Impression: Successful aspiration and drainage of superficial and deep paraspinous abscesses, as described, under CT guidance The CT scanner at [facility] is accredited by the [place] [employer] and the scans are performed using protocols designed to limit radiation exposure to as low as reasonably achievable to attain images of sufficient resolution adequate for diagnostic evaluation.
[2019-08-20] MEDS: Levofloxacin 500mg tab ORAL SCH (18:35)
--- NOTE | 2019-08-20 19:52 | NUR ---
HAND-OFF: Report given to ANISA Trevino.
--- NOTE | 2019-08-20 19:55 | NUR ---
NURSE NOTES: Pt. received from ANISA Dillon. Pt. AAOx4, on room, breathing even and unlabored, no complaints of pain at this time. PICC CHRISTIN intact and patent, dressings clean dry and intact. x2 Uresil drainage bags draining, secured. Colostomy bag draining well. Bed is low and locked, side rails x2 up, bed alarm active, and call light in reach. Will continue to monitor.
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
[2019-08-20] MEDS: Dyna-Hex 2% Top Sol 2oz TOPIC SCH (21:41)
--- NOTE | 2019-08-20 23:40 | NUR ---
NURSE NOTES: Sacral wound dressings changed, pt. tolerated well.
[2019-08-21] VITALS: BP 94/54
[2019-08-21 04:00] VITALS: BP 96/50
[2019-08-21] MEDS: metroNIDAZOLE 500mg tab ORAL SCH (05:23)
[2019-08-21] MEDS: NovoLOG Insulin Flexpen SUBQ SCH ×4 (06:30→21:00)
--- NOTE | 2019-08-21 07:30 | NUR ---
HAND-OFF: Report given to ANISA Bello and ANISA Mosquera.
--- NOTE | 2019-08-21 07:32 | NUR ---
NURSE NOTES: Received patient in bed,awake, not in respiratory distress. Breathing is even and unlabored. PICC lined on left upper arm intact with intact dressing. Urasil on left and right intact draining well, no blood. Call light within reach, bed is in lowest position and locked. Will continue to monitor.
[2019-08-21 07:57] LABS: ANION GAP 11 mmol/L (5-15); BLOOD UREA NITROGEN 23 mg/dL (7-18); CALCIUM 8.6 MG/DL (8.5-10.1); CARBON DIOXIDE 24 MMOL/L (21-32); CHLORIDE 101 MMOL/L (98-107); CREATININE 0.8 MG/DL (0.55-1.30); POTASSIUM 4.1 MMOL/L (3.5-5.1); SODIUM 136 MMOL/L (136-145)
[2019-08-21 08:00] VITALS: BP 94/46
--- NOTE | 2019-08-21 08:54 | Pulmonology Progress Note ---
Subjective ROS Limited/Unobtainable: No Constitutional: Denies: fever, chills Gastrointestinal/Abdominal: Reports: nausea, vomiting - yesterday Musculoskeletal: Reports: pain - in back Allergies: Coded Allergies: CEFTRIAXONE (Verified Allergy, Intermediate, SOB, HR-140bpm, face swollen , pt became red, 10/24/15) CODEINE (Verified Allergy, Intermediate, SWELLING, 01/03/11) LATEX (Verified Allergy, Intermediate, SWELLING, 01/03/11) PIPERACILLIN (Verified Allergy, Intermediate, Itching, 08/29/15) 08/29/15 tolerates Ceftaroline TAZOBACTAM (Verified Allergy, Intermediate, Itching, 01/29/15) POLYMYXIN B (Verified Allergy, Mild, Rash, 04/08/16) Suspected allergy reported by VANCOMYCIN (Verified Allergy, Mild, 07/15/14) ASPARAGINASE (Verified Allergy, Unknown, 01/28/14) CEFUROXIME (Unverified Allergy, Unknown, 04/19/16) IRON (Verified Allergy, Unknown, 01/28/14) LATEX, NATURAL RUBBER (Unverified Allergy, Unknown, 06/18/16) All Systems: reviewed and negative except above Subjective improved pain poor surgical candidate s/p aspiration by CT Objective Last 24 Hour Vital Signs Date Time Temp Pulse Resp B/P (MAP) Pulse Ox O2 Delivery O2 Flow Rate FiO2 08/21/19 04:00 97.9 103 24 96/50 (65) 97 08/21/19 00:00 98.1 115 22 94/54 (67) 98 08/20/19 21:00 Room Air 08/20/19 20:00 98.1 100 24 91/55 (67) 96 08/20/19 17:10 115 18 90/60 100 Nasal Cannula 4 08/20/19 17:05 115 18 91/60 100 Nasal Cannula 4 08/20/19 16:55 117 18 98/64 100 Nasal Cannula 4 08/20/19 16:50 118 18 96/60 100 Nasal Cannula 4 08/20/19 16:45 118 18 91/62 100 Nasal Cannula 4 08/20/19 16:41 122 18 108/68 100 Nasal Cannula 4 08/20/19 16:35 115 18 82/65 100 Nasal Cannula 4 08/20/19 16:31 118 18 95/60 100 Nasal Cannula 4 08/20/19 16:26 114 18 88/62 100 Nasal Cannula 4 08/20/19 16:21 115 18 97/62 100 Nasal Cannula 4 08/20/19 16:17 98.7 115 18 100 Nasal Cannula 4.0 121 100 08/20/19 16:16 108 18 90/59 98 Nasal Cannula 4 08/20/19 16:06 111 18 93/58 100 Nasal Cannula 4 08/20/19 15:33 98.7 121 18 102/50 100 Nasal Cannula 4 08/20/19 15:32 98.7 121 18 102/50 (67) 100 08/20/19 09:10 98.1 08/20/19 09:00 Room Air Intake and Output 08/20/19 08/21/19 19:00 07:00 Intake Total 636 ml Output Total 700 ml Balance 636 ml -700 ml Intake Oral 236 ml IV Total 400 ml Stool Total 700 ml # Voids 1 # Bowel Movements 1 Objective GENERAL: Patient is an ill-appearing female. in pain HEENT: Negative. NECK: Supple. LUNGS: Good air entry. CARDIAC: S1, S2. Regular rate and rhythm. ABDOMEN: Soft, nontender. EXTREMITIES: With significant atrophy. Abdomen: soft, non tender Extremities: no edema Microbiology Date/Time Source Procedure Growth Status 08/18/19 10:20 Rectum - Final NO CARBAPENEM-RESISTANT ENTEROBACTERI... Complete 08/18/19 10:20 Rectum VRE Culture - Final Enterococcus Faecalis - Vre Complete Laboratory Tests 08/20/19 12:35: Prothrombin Time 12.9H, Prothromb Time International Ratio 1.2H, Activated Partial Thromboplast Time 40H 08/21/19 06:15: Sodium Level 136, Potassium Level 4.1, Chloride Level 101, Carbon Dioxide Level 24, Anion Gap 11, Blood Urea Nitrogen 23H, Creatinine 0.8, Estimat Glomerular Filtration Rate > 60, Glucose Level 190H, Calcium Level 8.6 Current Medications Medications (Trade) Dose Ordered Sig/Pineda Route PRN Reason Start Time Stop Time Status Last Admin Dose Admin Acetaminophen (Tylenol) 650 mg Q4H PRN ORAL Mild Pain (Pain Scale 1-3) 08/20/19 10:15 09/19/19 10:14 Acetaminophen/ Hydrocodone Bitart ([place] 10/325) 1 tab Q4HR PRN ORAL Mild Pain (Pain Scale 1-3) 08/18/19 07:45 08/25/19 07:44 Acetaminophen/ Hydrocodone Bitart ([place] 10/325) 2 tab Q4HR PRN ORAL Moderate Pain (Pain Scale 4-6) 08/18/19 07:45 08/25/19 07:44 Al Hydroxide/Mg Hydroxide (Mylanta) 30 ml Q4H PRN ORAL INDIGESTION 08/20/19 10:15 09/19/19 10:14 Chlorhexidine Gluconate (Nereida-Hex 2%) 1 applic DAILY@2000 TOPIC 08/18/19 20:00 11/16/19 19:59 08/20/19 21:41 Dextrose (Dextrose 50%) 25 ml Q30M PRN IV Hypoglycemia 08/19/19 13:15 11/17/19 13:14 Dextrose (Dextrose 50%) 50 ml Q30M PRN IV Hypoglycemia 08/19/19 13:15 11/17/19 13:14 Hydromorphone HCl (Dilaudid) 2 mg Q4H PRN IM Severe Pain (Pain Scale 7-10) 08/18/19 19:30 08/25/19 19:29 08/21/19 05:24 Insulin Aspart (NovoLOG) BEFORE MEALS AND HS SUBQ 08/19/19 16:30 11/17/19 16:29 Levofloxacin (Levaquin) 500 mg Q24H ORAL 08/18/19 17:00 08/25/19 16:59 08/20/19 18:35 Linezolid (Zyvox) 600 mg EVERY 12 HOURS ORAL 08/18/19 09:45 08/23/19 09:44 08/20/19 21:41 Metronidazole (Flagyl) 500 mg Q8H ORAL 08/18/19 22:00 08/25/19 21:59 08/21/19 05:23 Ondansetron HCl (Zofran) 4 mg Q6H PRN IVP Nausea & Vomiting 08/20/19 10:15 09/19/19 10:14 Pantoprazole (Protonix) 40 mg DAILY ORAL 08/20/19 10:18 09/19/19 10:17 Assessment/Plan Assessment/Plan IMPRESSION: Multiple abscesses s/p aspiration, hyponatremia, hyperkalemia, acute renal failure, shortness of breath, dyspnea, leukocytosis, anemia, thrombocytosis. PLAN PICC oxygen as needed repeat transfusion if patient agrees linezolid per ID await cultures from aspiration hydrate as needed monitor HH discuss transfer if not improved poor surgical candidate impression, plan, and exam edited and reviewed in detail care discussed with Thanh Garcia MD August 21, 2019 08:54
--- NOTE | 2019-08-21 09:30 | NUR ---
NURSE NOTES: Patient requested Dilaudid for pain and patient's SBP is 94 and offered IM but patient refused IM but IV stating " IM is not working. I want IV." RN explained that pain medication might lower down the blood pressure and patient said " I need IV, no IM." Dr. Chanel made aware. Will continue to monitor.
--- NOTE | 2019-08-21 10:30 | NUR ---
NURSE NOTES: BP is stable.
--- NOTE | 2019-08-21 10:52 | Infectious Diseases Prog Note ---
Assessment/Plan Assessment/Plan antibiotics : linezolid, levoquin, flagyl A 1. lumbar abscess s/p drainage 2. MRSA sepsis 3. left knee septic arthritis 4. paraplegia P 1. continue linezolid, levoquin, change to iv patient has been refusing antibiotics, but now agrees to iv antibiotics 2. will follow up cultures 3. d/c flagyl Subjective Constitutional: Denies: fever, chills Respiratory: Denies: shortness of breath, dry cough Gastrointestinal/Abdominal: Reports: nausea, vomiting Musculoskeletal: Reports: pain - decreased Allergies: Coded Allergies: CEFTRIAXONE (Verified Allergy, Intermediate, SOB, HR-140bpm, face swollen , pt became red, 10/24/15) CODEINE (Verified Allergy, Intermediate, SWELLING, 01/03/11) LATEX (Verified Allergy, Intermediate, SWELLING, 01/03/11) PIPERACILLIN (Verified Allergy, Intermediate, Itching, 08/29/15) 08/29/15 tolerates Ceftaroline TAZOBACTAM (Verified Allergy, Intermediate, Itching, 01/29/15) POLYMYXIN B (Verified Allergy, Mild, Rash, 04/08/16) Suspected allergy reported by VANCOMYCIN (Verified Allergy, Mild, 07/15/14) ASPARAGINASE (Verified Allergy, Unknown, 01/28/14) CEFUROXIME (Unverified Allergy, Unknown, 04/19/16) IRON (Verified Allergy, Unknown, 01/28/14) LATEX, NATURAL RUBBER (Unverified Allergy, Unknown, 06/18/16) Objective Vital Signs Last 24 Hour Vital Signs Date Time Temp Pulse Resp B/P (MAP) Pulse Ox O2 Delivery O2 Flow Rate FiO2 08/21/19 04:00 97.9 103 24 96/50 (65) 97 08/21/19 00:00 98.1 115 22 94/54 (67) 98 08/20/19 21:00 Room Air 08/20/19 20:00 98.1 100 24 91/55 (67) 96 08/20/19 17:10 115 18 90/60 100 Nasal Cannula 4 08/20/19 17:05 115 18 91/60 100 Nasal Cannula 4 08/20/19 16:55 117 18 98/64 100 Nasal Cannula 4 08/20/19 16:50 118 18 96/60 100 Nasal Cannula 4 08/20/19 16:45 118 18 91/62 100 Nasal Cannula 4 08/20/19 16:41 122 18 108/68 100 Nasal Cannula 4 08/20/19 16:35 115 18 82/65 100 Nasal Cannula 4 08/20/19 16:31 118 18 95/60 100 Nasal Cannula 4 08/20/19 16:26 114 18 88/62 100 Nasal Cannula 4 08/20/19 16:21 115 18 97/62 100 Nasal Cannula 4 08/20/19 16:17 98.7 115 18 100 Nasal Cannula 4.0 121 100 08/20/19 16:16 108 18 90/59 98 Nasal Cannula 4 08/20/19 16:06 111 18 93/58 100 Nasal Cannula 4 08/20/19 15:33 98.7 121 18 102/50 100 Nasal Cannula 4 08/20/19 15:32 98.7 121 18 102/50 (67) 100 Height (Feet): 5 Height (Inches): 5.00 Weight (Pounds): 220 Respiratory/Chest: lungs clear Cardiovascular: normal rate, regular rhythm, no gallop/murmur Abdomen: soft, non tender Extremities: no edema, other - left arm PICC Musculoskeletal: other - back 2 drains Laboratory Tests Test 08/20/19 12:35 08/21/19 06:15 Prothrombin Time 12.9 SEC (9.30-11.50) H Prothromb Time International Ratio 1.2 (0.9-1.1) H Activated Partial Thromboplast Time 40 SEC (23-33) H Sodium Level 136 MMOL/L (136-145) Potassium Level 4.1 MMOL/L (3.5-5.1) Chloride Level 101 MMOL/L (98-107) Carbon Dioxide Level 24 MMOL/L (21-32) Anion Gap 11 mmol/L (5-15) Blood Urea Nitrogen 23 mg/dL (7-18) H Creatinine 0.8 MG/DL (0.55-1.30) Estimat Glomerular Filtration Rate > 60 mL/min (>60) Glucose Level 190 MG/DL (74-106) H Calcium Level 8.6 MG/DL (8.5-10.1) Current Medications Medications (Trade) Dose Ordered Sig/Pineda Route PRN Reason Start Time Stop Time Status Last Admin Dose Admin Acetaminophen (Tylenol) 650 mg Q4H PRN ORAL Mild Pain (Pain Scale 1-3) 5/11/20 10:15 09/19/19 10:14 Acetaminophen/ Hydrocodone Bitart ([place] 10/325) 1 tab Q4HR PRN ORAL Mild Pain (Pain Scale 1-3) 08/18/19 07:45 08/25/19 07:44 Acetaminophen/ Hydrocodone Bitart ([place] 10/325) 2 tab Q4HR PRN ORAL Moderate Pain (Pain Scale 4-6) 08/18/19 07:45 08/25/19 07:44 Al Hydroxide/Mg Hydroxide (Mylanta) 30 ml Q4H PRN ORAL INDIGESTION 08/20/19 10:15 09/19/19 10:14 Chlorhexidine Gluconate (Nereida-Hex 2%) 1 applic DAILY@1999 TOPIC 08/18/19 20:00 11/16/19 19:59 08/20/19 21:41 Dextrose (Dextrose 50%) 25 ml Q30M PRN IV Hypoglycemia 08/19/19 13:15 11/17/19 13:14 Dextrose (Dextrose 50%) 50 ml Q30M PRN IV Hypoglycemia 08/19/19 13:15 11/17/19 13:14 Diphenhydramine HCl (Benadryl) 25 mg Q6H PRN IVP Itching 08/21/19 10:30 09/20/19 10:29 Hydromorphone HCl (Dilaudid) 2 mg Q4H PRN IM Severe Pain (Pain Scale 7-10) 08/18/19 19:30 08/25/19 19:29 08/21/19 09:30 Insulin Aspart (NovoLOG) BEFORE MEALS AND HS SUBQ 08/19/19 16:30 11/17/19 16:29 Levofloxacin (Levaquin) 500 mg Q24H ORAL 08/18/19 17:00 08/25/19 16:59 08/20/19 18:35 Linezolid (Zyvox) 600 mg EVERY 12 HOURS ORAL 08/18/19 09:45 08/23/19 09:44 08/21/19 09:00 Metronidazole (Flagyl) 500 mg Q8H ORAL 08/18/19 22:00 08/25/19 21:59 08/21/19 05:23 Ondansetron HCl (Zofran) 4 mg Q6H PRN IVP Nausea & Vomiting 08/20/19 10:15 09/19/19 10:14 Pantoprazole (Protonix) 40 mg DAILY ORAL 08/20/19 10:18 09/19/19 10:17 08/21/19 09:31 Deng Reyes MD August 21, 2019 10:52
--- NOTE | 2019-08-21 11:30 | NUR ---
NURSE NOTES: Proper skin care done and assessed by wound care nurse.
--- NOTE | 2019-08-21 11:30 | NUR ---
NURSE NOTES: Patient refused blood sugar check and RN explained the risks and benefits.
[2019-08-21 12:00] VITALS: BP 97/55
--- NOTE | 2019-08-21 12:00 | NUR ---
NURSE NOTES: Patient refused pillow on her side for repositioning. RN explained the risks and benefits.
--- NOTE | 2019-08-21 12:34 | NUR ---
CASE MANAGEMENT:REVIEW 08/20/19 SI;LUMBAR ABSCESS S/P DRAINAGE. MRSA SEPSIS. LEFT KNEE SEPTIC ARTHRITIS. 98.7 121 18 90/59 98% 4L NC NA 131 BUN 28 BG 182 IS;LEVAQUIN PO Q24 HRS ZYVOX PO Q12 HRS FLAGYL PO Q8 HRS DILAUDID IM Q4 HRS PRN INSULIN NOVOLOG PROTONIX PO QD MED SURG STATUS DCP;FROM HOME
[2019-08-21] MEDS ORDERED: Lidocaine 1% Plain 30 ml INJ ONE (13:45)
[2019-08-21] MEDS ORDERED: Midazolam 2mg/2ml Inj IVP ONE (13:45)
[2019-08-21] MEDS ORDERED: fentaNYL 100 mcg/2 mL IV ONE (13:45)
[2019-08-21] MEDS ORDERED: ceFAZolin sod 1 GM in D5W 55 ML IVPB ONE (14:00)
--- NOTE | 2019-08-21 14:30 | General Progress Note ---
Assessment/Plan Problem List: (1) Pain ICD Codes: R52 - Pain, unspecified SNOMED: 16809511 (2) Osteomyelitis ICD Codes: M86.9 - Osteomyelitis, unspecified SNOMED: 28165027 (3) Abscess ICD Codes: L02.91 - Abscess SNOMED: 898057793 (4) Paraplegia ICD Codes: G82.20 - Paraplegia SNOMED: 85020469 (5) Asthma ICD Codes: J45.909 - Unspecified asthma, uncomplicated SNOMED: 980613362 (6) Anemia ICD Codes: D64.9 - Anemia, unspecified SNOMED: 177581015 (7) Acute renal failure ICD Codes: N17.9 - Acute kidney failure, unspecified SNOMED: 73908647 (8) right hip wound infecion/ulcer/osteo (9) Sepsis ICD Codes: A41.9 - Sepsis SNOMED: 75199743 (10) Cellulitis ICD Codes: L03.90 - Cellulitis, unspecified SNOMED: 451607190 (11) Abdominal pain ICD Codes: R10.9 - Unspecified abdominal pain SNOMED: 45328232 (12) Dehydration ICD Codes: E86.0 - Dehydration SNOMED: 50255008 Status: stable Assessment/Plan: cont iv abx per id follow up cultures cont drain monitor output added benadryl for itching pain rx antiemetics ivf as needed dvt/stress ulcer prophylaxis Subjective ROS Limited/Unobtainable: No Constitutional: Reports: weakness HEENT: Reports: no symptoms Cardiovascular: Reports: no symptoms Respiratory: Reports: no symptoms Gastrointestinal/Abdominal: Reports: no symptoms Genitourinary: Reports: no symptoms 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: Reports: pre-existing deficit Endocrine: Reports: no symptoms Hematologic/Lymphatic: Reports: anemia Allergies: Coded Allergies: CEFTRIAXONE (Verified Allergy, Intermediate, SOB, HR-140bpm, face swollen , pt became red, 10/24/15) CODEINE (Verified Allergy, Intermediate, SWELLING, 01/03/11) LATEX (Verified Allergy, Intermediate, SWELLING, 01/03/11) PIPERACILLIN (Verified Allergy, Intermediate, Itching, 08/29/15) 08/29/15 tolerates Ceftaroline TAZOBACTAM (Verified Allergy, Intermediate, Itching, 01/29/15) POLYMYXIN B (Verified Allergy, Mild, Rash, 04/08/16) Suspected allergy reported by VANCOMYCIN (Verified Allergy, Mild, 07/15/14) ASPARAGINASE (Verified Allergy, Unknown, 01/28/14) CEFUROXIME (Unverified Allergy, Unknown, 04/19/16) IRON (Verified Allergy, Unknown, 01/28/14) LATEX, NATURAL RUBBER (Unverified Allergy, Unknown, 06/18/16) All Systems: reviewed and negative except above Subjective c/o pain. no fevers. c/o itching. s/p ct guided drainage of back abscess. >300 purulent drainage. no cp/sob. Objective Last 24 Hour Vital Signs Date Time Temp Pulse Resp B/P (MAP) Pulse Ox O2 Delivery O2 Flow Rate FiO2 08/21/19 12:00 97.5 110 20 97/55 (69) 97 08/21/19 09:00 Room Air 08/21/19 08:00 97.7 99 18 94/46 (62) 96 08/21/19 04:00 97.9 103 24 96/50 (65) 97 08/21/19 00:00 98.1 115 22 94/54 (67) 98 08/20/19 21:00 Room Air 08/20/19 20:00 98.1 100 24 91/55 (67) 96 08/20/19 17:10 115 18 90/60 100 Nasal Cannula 4 08/20/19 17:05 115 18 91/60 100 Nasal Cannula 4 08/20/19 16:55 117 18 98/64 100 Nasal Cannula 4 08/20/19 16:50 118 18 96/60 100 Nasal Cannula 4 08/20/19 16:45 118 18 91/62 100 Nasal Cannula 4 08/20/19 16:41 122 18 108/68 100 Nasal Cannula 4 08/20/19 16:35 115 18 82/65 100 Nasal Cannula 4 08/20/19 16:31 118 18 95/60 100 Nasal Cannula 4 08/20/19 16:26 114 18 88/62 100 Nasal Cannula 4 08/20/19 16:21 115 18 97/62 100 Nasal Cannula 4 08/20/19 16:17 98.7 115 18 100 Nasal Cannula 4.0 121 100 08/20/19 16:16 108 18 90/59 98 Nasal Cannula 4 08/20/19 16:06 111 18 93/58 100 Nasal Cannula 4 08/20/19 15:33 98.7 121 18 102/50 100 Nasal Cannula 4 08/20/19 15:32 98.7 121 18 102/50 (67) 100 Intake and Output 08/20/19 08/21/19 19:00 07:00 Intake Total 636 ml Output Total 700 ml Balance 636 ml -700 ml Intake Oral 236 ml IV Total 400 ml Stool Total 700 ml # Voids 1 # Bowel Movements 1 Laboratory Tests 08/21/19 06:15: Sodium Level 136, Potassium Level 4.1, Chloride Level 101, Carbon Dioxide Level 24, Anion Gap 11, Blood Urea Nitrogen 23H, Creatinine 0.8, Estimat Glomerular Filtration Rate > 60, Glucose Level 190H, Calcium Level 8.6 Height (Feet): 5 Height (Inches): 5.00 Weight (Pounds): 220 General Appearance: WD/WN, alert, obese EENT: PERRL/EOMI, normal ENT inspection Neck: non-tender, normal alignment, supple, normal inspection Cardiovascular: normal peripheral pulses, normal rate, regular rhythm Respiratory/Chest: chest wall non-tender, lungs clear, normal breath sounds, no respiratory distress, no accessory muscle use Abdomen: normal bowel sounds, non tender, soft, no organomegaly, no mass Edema: no edema noted Arm (L), no edema noted Arm (R), no edema noted Leg (L), no edema noted Leg (R), no edema noted Pedal (L), no edema noted Pedal (R), no edema noted Generalized Neurologic: no motor/sensory deficits, motor weakness Skin: normal pigmentation Lymphatic: normal anterior cervical (L), normal anterior cervical (R), normal posterior cervical (L), normal posterior cervical (R), normal submandibular (L) , normal submandibular (R), normal supraclavicular (L), normal supraclavicular ( R), normal axillary (L), normal axillary (R), normal inguinal (L), normal inguinal (R), normal other Jacques Chanel MD August 21, 2019 14:30
[2019-08-21 16:00] VITALS: BP 96/53
--- NOTE | 2019-08-21 16:30 | NUR ---
NURSE NOTES: Patient refused blood sugar check and RN explained the risks and benefits.
--- NOTE | 2019-08-21 16:35 | NUR ---
NURSE NOTES:WOUND CARE NOTES:Pt presented on admission with keloid scars and multiple pressure injuries. Pt dictates manner in which Tx is done and can be hostile to staff. R hip noted to be erythematous,shiny and taut skin. full thickness sacral pressure injury (L)6.5cm x (W)3.5cm x (D)1.6cm.mixed pink granulation with scattered slough at base of wound. Hyperpigmentation periwound. No odor or exudate noted. DTPI noted to upper R gluteal cheek(L)1.4cm x (W)3cm. Base of injury is indurated, purple with maroon borders. Full thickness pressure injury lower R buttocks(L)1cm x (W)1.6cm x (D)1.5cm. [place] granulation with scattered slough at base of wound. Edges are macerated. Full thickness pressure injury L ischium.(L)1cmx (W)7.8cm x (D)0.3cm. [id number] slough with pink granulation. Edges are macerated. Full thickness wound posterior R knee. [place] granulation at base of wound. Small amt non-odorous serous exudate noted. Unstageable wound distal/lateral R tibia(L)5cm x (W)1.5cm. Stable dry eschar noted. Edges adherent to base of wound. No erythema or fluctuance periwound. Full thickness wound lateral R tibia,inferior to above eschar(L)3.3cm x (W)2.5cm. Base of wound is pink and granular. No odor or exudate noted. Pt noted to have wound scar L knee with Iodoform packing which pt declined to have removed. Pt stated wound was packed by mold shifter nurse and requested only Optifoam drsg be replaced. Pt's request acknowledged and Optifoam drsg changed. Full thickness wound posterior L leg . Wound is granular with epithelial borders. No odor or exudate noted..Skin is otherwise dry and scaly and with pt's permission both lower ext moisturized with Phytoplex Moisturizing Lotion. Pt has tow drains to R and L of Spine. Optifoam applied toboth areas of spine at risks for pressure from drain tubings. Pt was informed of placements of Optifoam drsgs to prevent pressure injuries. Tx.Plan: Wound Care orders as per Surgeon. Reposition at least every 2hours or as tolerated. Off-load heels with Pillow. APM/MARICARMEN Mattress overlay.
--- NOTE | 2019-08-21 19:00 | NUR ---
NURSE NOTES: UA was ordered and RN explained to the patient of UA and possible in and out cath. Patient stated that " In and out cath doesn't work for me, you are not gonna get anything. you can check previous document." Will inform doctor.
--- NOTE | 2019-08-21 19:01 | NUR ---
NURSE NOTES: output of left urasil: 300 and right :150
--- NOTE | 2019-08-21 19:50 | NUR ---
HAND-OFF: Report given to Mohit and endorsed paln of care.
[2019-08-21 20:00] VITALS: BP 108/54
--- NOTE | 2019-08-21 20:28 | NUR ---
NURSE NOTES: Pt is in bed,awake and alert. No acute distress noted. Vitals stable. Pt has 2 uracil drains connected to the lower back, draining cloudy output. Pain medication will be given as ordered PRN. Pt has PICC line. Pt is bed bound with multiple wounds, pt will repositioned frequently. Wound care will be performed. Fall precaution in place. Bed locked low in position, side rails up and call light within reach. Pt will be monitored.
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
[2019-08-21] MEDS: DiphenhydrAMINE 50mg/ml Inj IVP PRN (21:19)
[2019-08-21] MEDS: Dyna-Hex 2% Top Sol 2oz TOPIC SCH (21:19)
[2019-08-22] VITALS: BP 92/48
--- NOTE | 2019-08-22 02:00 | NUR ---
NURSE NOTES: Pt is turned and cleaned. Wound care dressing reinforced. Uracil drain on the left 100ml purulent output, on the right 35ml purulent output.Pain medication given.
[2019-08-22 04:00] VITALS: BP 132/55
[2019-08-22] MEDS: DiphenhydrAMINE 50mg/ml Inj IVP PRN ×2 (05:40→21:33)
[2019-08-22] MEDS: NovoLOG Insulin Flexpen SUBQ SCH ×4 (06:30→21:00)
--- NOTE | 2019-08-22 06:33 | NUR ---
NURSE NOTES: Pt refuses blood sugar check and NovoLog insulin per sliding scale despite education and encouragement.
[2019-08-22 06:46] LABS: ANION GAP 10 mmol/L (5-15); BLOOD UREA NITROGEN 20 mg/dL (7-18); CALCIUM 8.1 MG/DL (8.5-10.1); CARBON DIOXIDE 24 MMOL/L (21-32); CHLORIDE 100 MMOL/L (98-107); CREATININE 0.9 MG/DL (0.55-1.30); POTASSIUM 4.2 MMOL/L (3.5-5.1); SODIUM 134 MMOL/L (136-145)
--- NOTE | 2019-08-22 07:15 | NUR ---
HAND-OFF: Report given to ANISA Bello/ANISA Mosquera.
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
[2019-08-22 08:00] VITALS: BP 107/50
--- NOTE | 2019-08-22 08:50 | General Progress Note ---
Assessment/Plan Problem List: (1) Pain ICD Codes: R52 - Pain, unspecified SNOMED: 36269525 (2) Osteomyelitis ICD Codes: M86.9 - Osteomyelitis, unspecified SNOMED: 08726610 (3) Abscess ICD Codes: L02.91 - Abscess SNOMED: 278375182 (4) Paraplegia ICD Codes: G82.20 - Paraplegia SNOMED: 50562619 (5) Asthma ICD Codes: J45.909 - Unspecified asthma, uncomplicated SNOMED: 740488544 (6) Anemia ICD Codes: D64.9 - Anemia, unspecified SNOMED: 417678446 (7) Acute renal failure ICD Codes: N17.9 - Acute kidney failure, unspecified SNOMED: 98775282 (8) right hip wound infecion/ulcer/osteo (9) Sepsis ICD Codes: A41.9 - Sepsis SNOMED: 74056667 (10) Cellulitis ICD Codes: L03.90 - Cellulitis, unspecified SNOMED: 383323982 (11) Abdominal pain ICD Codes: R10.9 - Unspecified abdominal pain SNOMED: 56159987 (12) Dehydration ICD Codes: E86.0 - Dehydration SNOMED: 59213332 Status: stable Assessment/Plan: cont iv abx per id follow up cultures cont drain monitor output added benadryl for itching pain rx antiemetics ivf as needed dvt/stress ulcer prophylaxis Subjective ROS Limited/Unobtainable: No Constitutional: Reports: malaise, weakness HEENT: Reports: no symptoms Cardiovascular: Reports: no symptoms Allergies: Coded Allergies: CEFTRIAXONE (Verified Allergy, Intermediate, SOB, HR-140bpm, face swollen , pt became red, 10/24/15) CODEINE (Verified Allergy, Intermediate, SWELLING, 01/03/11) LATEX (Verified Allergy, Intermediate, SWELLING, 01/03/11) PIPERACILLIN (Verified Allergy, Intermediate, Itching, 08/29/15) 08/29/15 tolerates Ceftaroline TAZOBACTAM (Verified Allergy, Intermediate, Itching, 01/29/15) POLYMYXIN B (Verified Allergy, Mild, Rash, 04/08/16) Suspected allergy reported by VANCOMYCIN (Verified Allergy, Mild, 07/15/14) ASPARAGINASE (Verified Allergy, Unknown, 01/28/14) CEFUROXIME (Unverified Allergy, Unknown, 04/19/16) IRON (Verified Allergy, Unknown, 01/28/14) LATEX, NATURAL RUBBER (Unverified Allergy, Unknown, 06/18/16) All Systems: reviewed and negative except above Subjective c/o pain. no fevers. c/o itching. s/p ct guided drainage of back abscess. >300 purulent drainage. no cp/sob. Objective Last 24 Hour Vital Signs Date Time Temp Pulse Resp B/P (MAP) Pulse Ox O2 Delivery O2 Flow Rate FiO2 08/22/19 04:00 98.2 99 20 132/55 (80) 98 08/22/19 00:00 98.1 98 20 92/48 (63) 95 08/21/19 21:00 Room Air 08/21/19 20:00 98.2 101 22 108/54 (72) 94 08/21/19 16:00 97.4 101 18 96/53 (67) 97 08/21/19 12:00 97.5 110 20 97/55 (69) 97 08/21/19 09:00 Room Air Intake and Output 08/21/19 08/22/19 19:00 07:00 Intake Total 840 ml 820 ml Output Total 750 ml 250 ml Balance 90 ml 570 ml Intake Oral 840 ml 420 ml IV Total 400 ml Stool Total 300 ml 100 ml Other 450 ml 150 ml # Voids 3 1 # Bowel Movements 1 Laboratory Tests 08/22/19 05:20: Sodium Level 134L, Potassium Level 4.2, Chloride Level 100, Carbon Dioxide Level 24, Anion Gap 10, Blood Urea Nitrogen 20H, Creatinine 0.9, Estimat Glomerular Filtration Rate > 60, Glucose Level 168H, Calcium Level 8.1L Height (Feet): 5 Height (Inches): 5.00 Weight (Pounds): 219 General Appearance: WD/WN, alert EENT: normal ENT inspection Neck: non-tender, normal alignment, supple Cardiovascular: normal peripheral pulses, normal rate, regular rhythm Respiratory/Chest: chest wall non-tender, lungs clear, normal breath sounds, no respiratory distress Abdomen: normal bowel sounds, non tender, soft, no organomegaly Edema: no edema noted Arm (L), no edema noted Arm (R), no edema noted Leg (L), no edema noted Leg (R), no edema noted Pedal (L), no edema noted Pedal (R), no edema noted Generalized Neurologic: motor weakness, sensory deficit Skin: normal pigmentation Lymphatic: normal anterior cervical (L), normal anterior cervical (R) Jacques Chanel MD August 22, 2019 08:50
--- NOTE | 2019-08-22 09:29 | Pulmonology Progress Note ---
Subjective ROS Limited/Unobtainable: No Constitutional: Denies: fever, chills Gastrointestinal/Abdominal: Reports: nausea, vomiting Musculoskeletal: Reports: pain - decreased Allergies: Coded Allergies: CEFTRIAXONE (Verified Allergy, Intermediate, SOB, HR-140bpm, face swollen , pt became red, 10/24/15) CODEINE (Verified Allergy, Intermediate, SWELLING, 01/03/11) LATEX (Verified Allergy, Intermediate, SWELLING, 01/03/11) PIPERACILLIN (Verified Allergy, Intermediate, Itching, 08/29/15) 08/29/15 tolerates Ceftaroline TAZOBACTAM (Verified Allergy, Intermediate, Itching, 01/29/15) POLYMYXIN B (Verified Allergy, Mild, Rash, 04/08/16) Suspected allergy reported by VANCOMYCIN (Verified Allergy, Mild, 07/15/14) ASPARAGINASE (Verified Allergy, Unknown, 01/28/14) CEFUROXIME (Unverified Allergy, Unknown, 04/19/16) IRON (Verified Allergy, Unknown, 01/28/14) LATEX, NATURAL RUBBER (Unverified Allergy, Unknown, 06/18/16) All Systems: reviewed and negative except above Subjective improved pain poor surgical candidate s/p aspiration by CT no fevers agrees to management Objective Last 24 Hour Vital Signs Date Time Temp Pulse Resp B/P (MAP) Pulse Ox O2 Delivery O2 Flow Rate FiO2 08/22/19 04:00 98.2 99 20 132/55 (80) 98 08/22/19 00:00 98.1 98 20 92/48 (63) 95 08/21/19 21:00 Room Air 08/21/19 20:00 98.2 101 22 108/54 (72) 94 08/21/19 16:00 97.4 101 18 96/53 (67) 97 08/21/19 12:00 97.5 110 20 97/55 (69) 97 Intake and Output 08/21/19 08/22/19 19:00 07:00 Intake Total 840 ml 820 ml Output Total 750 ml 250 ml Balance 90 ml 570 ml Intake Oral 840 ml 420 ml IV Total 400 ml Stool Total 300 ml 100 ml Other 450 ml 150 ml # Voids 3 1 # Bowel Movements 1 Objective GENERAL: Patient is an ill-appearing female. in pain HEENT: Negative. NECK: Supple. LUNGS: Good air entry. CARDIAC: S1, S2. Regular rate and rhythm. ABDOMEN: Soft, nontender. EXTREMITIES: With significant atrophy. Abdomen: soft, non tender Extremities: no edema, other - left arm PICC Musculoskeletal: other - back 2 drains Microbiology Date/Time Source Procedure Growth Status 08/20/19 18:00 Back Gram Stain - Final Resulted 08/20/19 18:00 Wound Culture - Preliminary Staphylococcus Aureus Resulted 08/20/19 18:00 Back Anaerobic Culture - Preliminary Resulted 08/20/19 16:25 Back Gram Stain - Final Resulted 08/20/19 16:25 Wound Culture - Preliminary Staphylococcus Aureus Resulted Laboratory Tests 08/22/19 05:20: Sodium Level 134L, Potassium Level 4.2, Chloride Level 100, Carbon Dioxide Level 24, Anion Gap 10, Blood Urea Nitrogen 20H, Creatinine 0.9, Estimat Glomerular Filtration Rate > 60, Glucose Level 168H, Calcium Level 8.1L Current Medications Medications (Trade) Dose Ordered Sig/Pineda Route PRN Reason Start Time Stop Time Status Last Admin Dose Admin Acetaminophen (Tylenol) 650 mg Q4H PRN ORAL Mild Pain (Pain Scale 1-3) 08/20/19 10:15 09/19/19 10:14 Acetaminophen/ Hydrocodone Bitart ([place] 10/325) 1 tab Q4HR PRN ORAL Mild Pain (Pain Scale 1-3) 08/18/19 07:45 08/25/19 07:44 Acetaminophen/ Hydrocodone Bitart ([place] 10/325) 2 tab Q4HR PRN ORAL Moderate Pain (Pain Scale 4-6) 08/18/19 07:45 08/25/19 07:44 Al Hydroxide/Mg Hydroxide (Mylanta) 30 ml Q4H PRN ORAL INDIGESTION 08/20/19 10:15 09/19/19 10:14 Chlorhexidine Gluconate (Nereida-Hex 2%) 1 applic DAILY@1999 TOPIC 08/18/19 20:00 11/16/19 19:59 08/21/19 21:19 Dextrose (Dextrose 50%) 25 ml Q30M PRN IV Hypoglycemia 08/19/19 13:15 11/17/19 13:14 Dextrose (Dextrose 50%) 50 ml Q30M PRN IV Hypoglycemia 08/19/19 13:15 11/17/19 13:14 Diphenhydramine HCl (Benadryl) 25 mg Q6H PRN IVP Itching 08/21/19 10:30 09/20/19 10:29 08/22/19 05:40 Hydromorphone HCl (Dilaudid) 2 mg Q4H PRN IM Severe Pain (Pain Scale 7-10) 08/21/19 23:45 08/28/19 23:44 Hydromorphone HCl (Dilaudid) 2 mg Q4H PRN IVP Severe Pain (Pain Scale 7-10) 08/21/19 23:30 08/25/19 19:29 08/22/19 05:41 Insulin Aspart (NovoLOG) BEFORE MEALS AND HS SUBQ 08/19/19 16:30 11/17/19 16:29 Levofloxacin 100 ml @ 100 mls/hr Q24H IVPB 08/21/19 17:00 08/28/19 16:59 08/21/19 18:01 Linezolid 300 ml @ 300 mls/hr Q12HR IVPB 08/21/19 21:00 08/28/19 20:59 08/22/19 08:17 Ondansetron HCl (Zofran) 4 mg Q6H PRN IVP Nausea & Vomiting 08/20/19 10:15 09/19/19 10:14 08/22/19 05:40 Pantoprazole (Protonix) 40 mg DAILY ORAL 08/20/19 10:18 09/19/19 10:17 08/22/19 08:16 Assessment/Plan Assessment/Plan IMPRESSION: Multiple abscesses s/p aspiration, hyponatremia, hyperkalemia, acute renal failure, shortness of breath, dyspnea, leukocytosis, anemia, thrombocytosis. PLAN PICC oxygen as needed await repeat labs linezolid and levaquin IV reviewed cultures from aspiration hydrate as needed monitor HH pain control poor surgical candidate impression, plan, and exam edited and reviewed in detail care discussed with Thanh Garcia MD August 22, 2019 09:29
--- NOTE | 2019-08-22 10:37 | Infectious Diseases Prog Note ---
Assessment/Plan Assessment/Plan antibiotics : linezolid, levoquin A 1. lumbar abscess s/p drainage with staph aureus bilaterally 2. MRSA sepsis 3. left knee septic arthritis 4. paraplegia P 1. continue linezolid iv 2. d/c levoquin 3. will follow up cultures Subjective Constitutional: Denies: fever, chills Respiratory: Denies: shortness of breath, dry cough Gastrointestinal/Abdominal: Reports: nausea, vomiting; Denies: diarrhea Musculoskeletal: Reports: pain Allergies: Coded Allergies: CEFTRIAXONE (Verified Allergy, Intermediate, SOB, HR-140bpm, face swollen , pt became red, 10/24/15) CODEINE (Verified Allergy, Intermediate, SWELLING, 01/03/11) LATEX (Verified Allergy, Intermediate, SWELLING, 01/03/11) PIPERACILLIN (Verified Allergy, Intermediate, Itching, 08/29/15) 08/29/15 tolerates Ceftaroline TAZOBACTAM (Verified Allergy, Intermediate, Itching, 01/29/15) POLYMYXIN B (Verified Allergy, Mild, Rash, 04/08/16) Suspected allergy reported by VANCOMYCIN (Verified Allergy, Mild, 07/15/14) ASPARAGINASE (Verified Allergy, Unknown, 01/28/14) CEFUROXIME (Unverified Allergy, Unknown, 04/19/16) IRON (Verified Allergy, Unknown, 01/28/14) LATEX, NATURAL RUBBER (Unverified Allergy, Unknown, 06/18/16) Objective Vital Signs Last 24 Hour Vital Signs Date Time Temp Pulse Resp B/P (MAP) Pulse Ox O2 Delivery O2 Flow Rate FiO2 08/22/19 04:00 98.2 99 20 132/55 (80) 98 08/22/19 00:00 98.1 98 20 92/48 (63) 95 08/21/19 21:00 Room Air 08/21/19 20:00 98.2 101 22 108/54 (72) 94 08/21/19 16:00 97.4 101 18 96/53 (67) 97 08/21/19 12:00 97.5 110 20 97/55 (69) 97 Height (Feet): 5 Height (Inches): 5.00 Weight (Pounds): 219 Respiratory/Chest: lungs clear Cardiovascular: normal rate, regular rhythm, no gallop/murmur Abdomen: soft, non tender Extremities: no edema, other - left arm PICC Musculoskeletal: other - back drains with pus bilaterally Microbiology Date/Time Source Procedure Growth Status 08/20/19 18:00 Back Anaerobic Culture - Preliminary Resulted 08/20/19 18:00 Back Gram Stain - Final Resulted 08/20/19 18:00 Wound Culture - Preliminary Staphylococcus Aureus Resulted 08/20/19 18:00 Back Anaerobic Culture - Preliminary Resulted 08/20/19 16:25 Back Gram Stain - Final Resulted 08/20/19 16:25 Wound Culture - Preliminary Staphylococcus Aureus Resulted Laboratory Tests Test 08/22/19 05:20 Sodium Level 134 MMOL/L (136-145) L Potassium Level 4.2 MMOL/L (3.5-5.1) Chloride Level 100 MMOL/L (98-107) Carbon Dioxide Level 24 MMOL/L (21-32) Anion Gap 10 mmol/L (5-15) Blood Urea Nitrogen 20 mg/dL (7-18) H Creatinine 0.9 MG/DL (0.55-1.30) Estimat Glomerular Filtration Rate > 60 mL/min (>60) Glucose Level 168 MG/DL (74-106) H Calcium Level 8.1 MG/DL (8.5-10.1) L Current Medications Medications (Trade) Dose Ordered Sig/Pineda Route PRN Reason Start Time Stop Time Status Last Admin Dose Admin Acetaminophen (Tylenol) 650 mg Q4H PRN ORAL Mild Pain (Pain Scale 1-3) 08/20/19 10:15 09/19/19 10:14 Acetaminophen/ Hydrocodone Bitart ([place] 10/325) 1 tab Q4HR PRN ORAL Mild Pain (Pain Scale 1-3) 08/18/19 07:45 08/25/19 07:44 Acetaminophen/ Hydrocodone Bitart ([place] 10/325) 2 tab Q4HR PRN ORAL Moderate Pain (Pain Scale 4-6) 08/18/19 07:45 08/25/19 07:44 Al Hydroxide/Mg Hydroxide (Mylanta) 30 ml Q4H PRN ORAL INDIGESTION 08/20/19 10:15 09/19/19 10:14 Chlorhexidine Gluconate (Nereida-Hex 2%) 1 applic DAILY@2000 TOPIC 08/18/19 20:00 11/16/19 19:59 08/21/19 21:19 Dextrose (Dextrose 50%) 25 ml Q30M PRN IV Hypoglycemia 08/19/19 13:15 11/17/19 13:14 Dextrose (Dextrose 50%) 50 ml Q30M PRN IV Hypoglycemia 08/19/19 13:15 11/17/19 13:14 Diphenhydramine HCl (Benadryl) 25 mg Q6H PRN IVP Itching 08/21/19 10:30 09/20/19 10:29 08/22/19 05:40 Hydromorphone HCl (Dilaudid) 2 mg Q4H PRN IM Severe Pain (Pain Scale 7-10) 08/21/19 23:45 08/28/19 23:44 08/22/19 09:40 Hydromorphone HCl (Dilaudid) 2 mg Q4H PRN IVP Severe Pain (Pain Scale 7-10) 08/21/19 23:30 08/25/19 19:29 08/22/19 05:41 Insulin Aspart (NovoLOG) BEFORE MEALS AND HS SUBQ 08/19/19 16:30 11/17/19 16:29 Levofloxacin 100 ml @ 100 mls/hr Q24H IVPB 08/21/19 17:00 08/28/19 16:59 08/21/19 18:01 Linezolid 300 ml @ 300 mls/hr Q12HR IVPB 08/21/19 21:00 08/28/19 20:59 08/22/19 08:17 Ondansetron HCl (Zofran) 4 mg Q6H PRN IVP Nausea & Vomiting 08/20/19 10:15 09/19/19 10:14 08/22/19 05:40 Pantoprazole (Protonix) 40 mg DAILY ORAL 08/20/19 10:18 09/19/19 10:17 08/22/19 08:16 Deng Reyes MD August 22, 2019 10:37
--- NOTE | 2019-08-22 11:00 | NUR ---
NURSE NOTES: Attempted to draw blood for CBC ordered via PICC line. Both lumen of PICC line able to be flushed but unable to get blood back. Notified MD. Received order for alteplase for PICC line de-clotting.
[2019-08-22 12:00] VITALS: BP 97/54
[2019-08-22] MEDS ORDERED: Cathflo Alteplase 2mg Inj INJ SCH (13:00)
--- NOTE | 2019-08-22 13:49 | NUR ---
GANG SUPERVISOR NOTE MESSAGE SENT TO DR MICHEL IN RE TO PLAN OF CARE. AWAITING CALL BACK AT THIS TIME. Addendum: 08/22/19 at 1717 by ANTHONY LUNSFORD LVN LVN LATE ENTRY: PER DR MICHEL, PATIENT IS NOT READY FOR DISCHARGE.
--- NOTE | 2019-08-22 16:00 | NUR ---
NURSE NOTES: Venous duplex done for screening for SCD's
[2019-08-22 16:20] LABS: HEMATOCRIT 25.1 % (37.0-47.0); HEMOGLOBIN 7.7 G/DL (12.0-16.0); MEAN CORPUSCULAR VOLUME 86 FL (80-99); PLATELET COUNT 483 K/UL (150-450); RED BLOOD COUNT 2.93 M/UL (4.20-5.40); RED CELL DISTRIBUTION WIDTH 17.2 % (11.6-14.8); WHITE BLOOD COUNT 12.5 K/UL (4.8-10.8)
[2019-08-22 16:22] LABS: BASOPHILS % (AUTO) 0.3 % (0.0-2.0); LYMPHOCYTES % (AUTO) 11.4 % (20.0-45.0); MONOCYTES % (AUTO) 3.6 % (1.0-10.0); NEUTROPHILS % (AUTO) 82.8 % (45.0-75.0)
--- NOTE | 2019-08-22 16:40 | NUR ---
NURSE NOTES: Received alteplase from pharmacy. Administered as ordered via PICC line. Reassessed both lumen of PICC line after 30 minutes per protocol to no avail. Still unable to withdraw blood at this time. Waited another 60 minutes per protocol. Upon attempt, no blood was able to be drawn. notified re PICC line issue as well as recent lab results of Hgb 7.7 and Hct 25.1. New orders received for 2 units PRBC transfusion.
--- NOTE | 2019-08-22 17:13 | NUR ---
CASE MANAGEMENT:REVIEW SI;LUMBAR ABSCESS S/P DRAINAGE. MRSA SEPSIS. LEFT KNEE SEPTIC ARTHRITIS. PARAPLEGIA. 98.1 99 20 97/54 95% ON RA WBC 12.5 H/H 7.7/25.1 NA 134 BUN 20 BG 168 IS;LEVAQUIN PO Q24 HRS ZYVOX PO Q12 HRS FLAGYL PO Q8 HRS DILAUDID IM Q4 HRS PRN INSULIN NOVOLOG PROTONIX PO QD CATHFLO INJ ONCE MED SURG STATUS DCP;FROM HOME
--- NOTE | 2019-08-22 17:27 | NUR ---
NURSE NOTES: Notified lab to draw blood for Type and Cross for patient's ordered PRBC x 2 transfusion.
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
--- NOTE | 2019-08-22 19:26 | NUR ---
HAND-OFF: Report given to Mohit RN and ANISA Falk. Endorsed POC.
[2019-08-22 20:00] VITALS: BP 97/52
[2019-08-22] MEDS: Dyna-Hex 2% Top Sol 2oz TOPIC SCH (20:00)
--- NOTE | 2019-08-22 20:00 | NUR ---
NURSE NOTES: Pt is in bed, awake and alert. No acute distress noted. No SOB. Pt is uncooperative with blood draw required for type and cross at this time. There is in order to transfuse 2 units however unable to do it now because pt refuse sto have blood drawn. PICC line is not drawing blood. Will try again. Pt will be repositioned , wounds will be attended and pt will be cleaned. Fall precaution in place. Bed locked low in position,side rails up and call light within reach.
--- NOTE | 2019-08-22 20:41 | Diagnostic Imaging Report ---
Indication:Leg pain and swelling Technique: Grayscale and duplex Doppler imaging of the veins in both lower extremities performed in real time utilizing compression and augmentation. Comparison: None Findings: Duplex Doppler interrogation of the veins in both lower extremity is performed from the common femoral vein to the popliteal vein. Normal venous compressibility demonstrated throughout. No thrombus identified. Waveform analysis shows good respiratory phasicity and augmentation. Popliteal veins are poorly visualized bilaterally due to patient body habitus. IMPRESSION: Popliteal veins poorly visualized bilaterally due to patient body habitus. No evidence of deep venous thrombosis involving visualized veins of the bilateral lower extremities.
[2019-08-23] VITALS: BP 109/53
--- NOTE | 2019-08-23 01:02 | NUR ---
NURSE NOTES: 1st of 2 units of PRBC transfusion started after consent and type/ cross. Pt is tolerating well, no adverse signs or symptoms noted. Pt will be monitored.
[2019-08-23 04:00] VITALS: BP 104/53
--- NOTE | 2019-08-23 04:00 | NUR ---
NURSE NOTES: 2nd unit of PRBC transfusion started. No adverse reactions noted.
--- NOTE | 2019-08-23 05:30 | NUR ---
NURSE NOTES: total 2 units of PRBC transfused during this shift, no adverse effects noted. Uracil drain left 50ml purulent output, right 100ml purulent output. Pt was cleaned and wound care performed.
[2019-08-23] MEDS: NovoLOG Insulin Flexpen SUBQ SCH ×4 (06:30→20:40)
--- NOTE | 2019-08-23 07:00 | NUR ---
NURSE NOTES: Unable to draw blood for AM labs because PICC line not drawing blood. Laboratory called to come do a peripheral draw later, spoke to Cony.
[2019-08-23] MEDS: DiphenhydrAMINE 50mg/ml Inj IVP PRN ×3 (07:06→22:46)
--- NOTE | 2019-08-23 07:15 | NUR ---
HAND-OFF: Report given to ANISA Rosales. Endorsed to follow up with lab draw with Progressive Care Nurse.
[2019-08-23 08:00] VITALS: BP 112/56
--- NOTE | 2019-08-23 08:00 | NUR ---
NURSE NOTES: Patient sitting in Semi-Arrington's position, awake and alert, pain treated with dilaudid, patient now covering head with blanket for a morning nap, side rails up x 2, bed in lowest position, call light within reach.
--- NOTE | 2019-08-23 09:08 | Pulmonology Progress Note ---
Subjective ROS Limited/Unobtainable: No Constitutional: Denies: fever, chills Gastrointestinal/Abdominal: Reports: nausea, vomiting; Denies: diarrhea Musculoskeletal: Reports: pain Allergies: Coded Allergies: CEFTRIAXONE (Verified Allergy, Intermediate, SOB, HR-140bpm, face swollen , pt became red, 10/24/15) CODEINE (Verified Allergy, Intermediate, SWELLING, 01/03/11) LATEX (Verified Allergy, Intermediate, SWELLING, 01/03/11) PIPERACILLIN (Verified Allergy, Intermediate, Itching, 08/29/15) 08/29/15 tolerates Ceftaroline TAZOBACTAM (Verified Allergy, Intermediate, Itching, 01/29/15) POLYMYXIN B (Verified Allergy, Mild, Rash, 04/08/16) Suspected allergy reported by VANCOMYCIN (Verified Allergy, Mild, 07/15/14) ASPARAGINASE (Verified Allergy, Unknown, 01/28/14) CEFUROXIME (Unverified Allergy, Unknown, 04/19/16) IRON (Verified Allergy, Unknown, 01/28/14) LATEX, NATURAL RUBBER (Unverified Allergy, Unknown, 06/18/16) All Systems: reviewed and negative except above Subjective +pain poor surgical candidate s/p aspiration by CT no fevers PICC clogged agrees to management Objective Last 24 Hour Vital Signs Date Time Temp Pulse Resp B/P (MAP) Pulse Ox O2 Delivery O2 Flow Rate FiO2 08/23/19 07:37 98.4 08/23/19 04:00 98.4 108 22 104/53 (70) 98 08/23/19 00:00 99.1 111 22 109/53 (71) 98 08/22/19 21:00 Room Air 08/22/19 20:00 99.2 112 22 97/52 (67) 98 08/22/19 12:00 97.9 98 20 97/54 (68) 98 Intake and Output 08/22/19 08/23/19 19:00 07:00 Intake Total 960 ml Output Total 295 ml 550 ml Balance -295 ml 410 ml IV Total 300 ml Blood Product 300 ml Other 360 ml Stool Total 150 ml 400 ml Other 145 ml 150 ml # Voids 1 Objective GENERAL: Patient is an ill-appearing female. in pain HEENT: Negative. NECK: Supple. LUNGS: Good air entry. CARDIAC: S1, S2. Regular rate and rhythm. ABDOMEN: Soft, nontender. EXTREMITIES: With significant atrophy. Abdomen: soft, non tender Extremities: no edema, other - left arm PICC Musculoskeletal: other - back drains with pus bilaterally Microbiology Date/Time Source Procedure Growth Status 08/20/19 18:00 Back Anaerobic Culture - Preliminary Resulted 08/20/19 18:00 Back Gram Stain - Final Resulted 08/20/19 18:00 Wound Culture - Preliminary Staphylococcus Aureus Resulted 08/20/19 18:00 Back Anaerobic Culture - Preliminary Resulted 08/20/19 16:25 Back Gram Stain - Final Resulted 08/20/19 16:25 Wound Culture - Preliminary Staphylococcus Aureus Resulted Laboratory Tests 08/22/19 16:06: White Blood Count 12.5H, Red Blood Count 2.93L, Hemoglobin 7.7L, Hematocrit 25.1L, Mean Corpuscular Volume 86, Mean Corpuscular Hemoglobin 26.2L, Mean Corpuscular Hemoglobin Concent 30.6L, Red Cell Distribution Width 17.2H, Platelet Count 483H, Mean Platelet Volume 6.9, Neutrophils (%) (Auto) 82.8H, Lymphocytes (%) (Auto) 11.4L, Monocytes (%) (Auto) 3.6, Eosinophils (%) (Auto) 2.0, Basophils (%) (Auto) 0.3 Current Medications Medications (Trade) Dose Ordered Sig/Pineda Route PRN Reason Start Time Stop Time Status Last Admin Dose Admin Acetaminophen (Tylenol) 650 mg Q4H PRN ORAL Mild Pain (Pain Scale 1-3) 08/20/19 10:15 09/19/19 10:14 Acetaminophen/ Hydrocodone Bitart (Irene 10/325) 1 tab Q4HR PRN ORAL Mild Pain (Pain Scale 1-3) 08/18/19 07:45 08/25/19 07:44 Acetaminophen/ Hydrocodone Bitart (Irene 10/325) 2 tab Q4HR PRN ORAL Moderate Pain (Pain Scale 4-6) 08/18/19 07:45 08/25/19 07:44 Al Hydroxide/Mg Hydroxide (Mylanta) 30 ml Q4H PRN ORAL INDIGESTION 08/20/19 10:15 09/19/19 10:14 Alteplase, Recombinant (Cathflo) 4 mg ONCE ONCE INJ 08/23/19 09:15 08/23/19 09:16 UNV Chlorhexidine Gluconate (Nereida-Hex 2%) 1 applic DAILY@2000 TOPIC 08/18/19 20:00 11/16/19 19:59 08/22/19 20:00 Dextrose (Dextrose 50%) 25 ml Q30M PRN IV Hypoglycemia 08/19/19 13:15 11/17/19 13:14 Dextrose (Dextrose 50%) 50 ml Q30M PRN IV Hypoglycemia 08/19/19 13:15 11/17/19 13:14 Diphenhydramine HCl (Benadryl) 25 mg Q6H PRN IVP Itching 08/21/19 10:30 09/20/19 10:29 08/23/19 07:06 Hydromorphone HCl (Dilaudid) 2 mg Q4H PRN IM Severe Pain (Pain Scale 7-10) 08/21/19 23:45 08/28/19 23:44 08/22/19 16:39 Hydromorphone HCl (Dilaudid) 2 mg Q4H PRN IVP Severe Pain (Pain Scale 7-10) 08/21/19 23:30 08/25/19 19:29 08/23/19 07:07 Insulin Aspart (NovoLOG) BEFORE MEALS AND HS SUBQ 08/19/19 16:30 11/17/19 16:29 Linezolid 300 ml @ 300 mls/hr Q12HR IVPB 08/21/19 21:00 08/28/19 20:59 08/23/19 08:38 Ondansetron HCl (Zofran) 4 mg Q6H PRN IVP Nausea & Vomiting 08/20/19 10:15 09/19/19 10:14 08/22/19 13:24 Pantoprazole (Protonix) 40 mg DAILY ORAL 08/20/19 10:18 09/19/19 10:17 08/23/19 08:37 Assessment/Plan Assessment/Plan IMPRESSION: Multiple abscesses s/p aspiration, hyponatremia, hyperkalemia, acute renal failure, shortness of breath, dyspnea, leukocytosis, anemia, thrombocytosis. PLAN PICC - declot oxygen as needed needs transfusion linezolid and levaquin IV reviewed cultures from aspiration hydrate as needed monitor HH pain control poor surgical candidate defer dc to ID impression, plan, and exam edited and reviewed in detail care discussed with RN Ishaaya,Thanh M MD August 23, 2019 09:08
[2019-08-23 10:52] LABS: ANION GAP 11 mmol/L (5-15); BLOOD UREA NITROGEN 15 mg/dL (7-18); CALCIUM 7.9 MG/DL (8.5-10.1); CARBON DIOXIDE 21 MMOL/L (21-32); CHLORIDE 102 MMOL/L (98-107); CREATININE 0.8 MG/DL (0.55-1.30); POTASSIUM 3.9 MMOL/L (3.5-5.1); SODIUM 134 MMOL/L (136-145)
[2019-08-23 10:57] LABS: PHOSPHORUS 4.5 MG/DL (2.5-4.9)
[2019-08-23] MEDS ORDERED: Cathflo Alteplase 2mg Inj INJ SCH ×2 (11:00→12:30)
[2019-08-23 12:00] VITALS: BP 98/56
--- NOTE | 2019-08-23 13:20 | Infectious Diseases Prog Note ---
Assessment/Plan Assessment/Plan A 1. lumbar abscess s/p drainage with staph aureus bilaterally 2. MRSA sepsis 3. left knee septic arthritis 4. paraplegia P 1. continue linezolid iv Subjective ROS Limited/Unobtainable: Yes Allergies: Coded Allergies: CEFTRIAXONE (Verified Allergy, Intermediate, SOB, HR-140bpm, face swollen , pt became red, 10/24/15) CODEINE (Verified Allergy, Intermediate, SWELLING, 01/03/11) LATEX (Verified Allergy, Intermediate, SWELLING, 01/03/11) PIPERACILLIN (Verified Allergy, Intermediate, Itching, 08/29/15) 08/29/15 tolerates Ceftaroline TAZOBACTAM (Verified Allergy, Intermediate, Itching, 01/29/15) POLYMYXIN B (Verified Allergy, Mild, Rash, 04/08/16) Suspected allergy reported by VANCOMYCIN (Verified Allergy, Mild, 07/15/14) ASPARAGINASE (Verified Allergy, Unknown, 01/28/14) CEFUROXIME (Unverified Allergy, Unknown, 04/19/16) IRON (Verified Allergy, Unknown, 01/28/14) LATEX, NATURAL RUBBER (Unverified Allergy, Unknown, 06/18/16) Objective Vital Signs Last 24 Hour Vital Signs Date Time Temp Pulse Resp B/P (MAP) Pulse Ox O2 Delivery O2 Flow Rate FiO2 08/23/19 12:00 98.2 100 19 98/56 (70) 100 08/23/19 09:00 Room Air 08/23/19 08:00 97.3 80 19 112/56 (74) 93 08/23/19 07:37 98.4 08/23/19 04:00 98.4 108 22 104/53 (70) 98 08/23/19 00:00 99.1 111 22 109/53 (71) 98 08/22/19 21:00 Room Air 08/22/19 20:00 99.2 112 22 97/52 (67) 98 Height (Feet): 5 Height (Inches): 5.00 Weight (Pounds): 219 General Appearance: no acute distress HEENT: mucous membranes moist Respiratory/Chest: lungs clear Cardiovascular: tachycardia, other - left arm PICC line Abdomen: soft, non tender Extremities: other - dependent edema Skin: other - sleeping Microbiology Date/Time Source Procedure Growth Status 08/20/19 18:00 Back Anaerobic Culture - Final NO ANAEROBES ISOLATED Complete 08/20/19 18:00 Back Gram Stain - Final Resulted 08/20/19 18:00 Wound Culture - Final Staphylococcus Aureus - Mrsa Resulted 08/20/19 18:00 Back Anaerobic Culture - Preliminary Resulted 08/20/19 16:25 Back Anaerobic Culture - Final NO ANAEROBES ISOLATED Complete 08/20/19 16:25 Back Gram Stain - Final Complete 08/20/19 16:25 Wound Culture - Final Staphylococcus Aureus - Mrsa Complete Laboratory Tests Test 08/22/19 16:06 08/23/19 10:00 White Blood Count 12.5 K/UL (4.8-10.8) H Red Blood Count 2.93 M/UL (4.20-5.40) L Hemoglobin 7.7 G/DL (12.0-16.0) L Hematocrit 25.1 % (37.0-47.0) L Mean Corpuscular Volume 86 FL (80-99) Mean Corpuscular Hemoglobin 26.2 PG (27.0-31.0) L Mean Corpuscular Hemoglobin Concent 30.6 G/DL (32.0-36.0) L Red Cell Distribution Width 17.2 % (11.6-14.8) H Platelet Count 483 K/UL (150-450) H Mean Platelet Volume 6.9 FL (6.5-10.1) Neutrophils (%) (Auto) 82.8 % (45.0-75.0) H Lymphocytes (%) (Auto) 11.4 % (20.0-45.0) L Monocytes (%) (Auto) 3.6 % (1.0-10.0) Eosinophils (%) (Auto) 2.0 % (0.0-3.0) Basophils (%) (Auto) 0.3 % (0.0-2.0) Sodium Level 134 MMOL/L (136-145) L Potassium Level 3.9 MMOL/L (3.5-5.1) Chloride Level 102 MMOL/L (98-107) Carbon Dioxide Level 21 MMOL/L (21-32) Anion Gap 11 mmol/L (5-15) Blood Urea Nitrogen 15 mg/dL (7-18) Creatinine 0.8 MG/DL (0.55-1.30) Estimat Glomerular Filtration Rate > 60 mL/min (>60) Glucose Level 161 MG/DL (74-106) H Calcium Level 7.9 MG/DL (8.5-10.1) L Phosphorus Level 4.5 MG/DL (2.5-4.9) Magnesium Level 1.0 MG/DL (1.8-2.4) L Current Medications Medications (Trade) Dose Ordered Sig/Pineda Route PRN Reason Start Time Stop Time Status Last Admin Dose Admin Acetaminophen (Tylenol) 650 mg Q4H PRN ORAL Mild Pain (Pain Scale 1-3) 08/20/19 10:15 09/19/19 10:14 Acetaminophen/ Hydrocodone Bitart (Hudson 10/325) 1 tab Q4HR PRN ORAL Mild Pain (Pain Scale 1-3) 08/18/19 07:45 08/25/19 07:44 Acetaminophen/ Hydrocodone Bitart ([place]udson 10/325) 2 tab Q4HR PRN ORAL Moderate Pain (Pain Scale 4-6) 08/18/19 07:45 08/25/19 07:44 Al Hydroxide/Mg Hydroxide (Mylanta) 30 ml Q4H PRN ORAL INDIGESTION 08/20/19 10:15 09/19/19 10:14 Alteplase, Recombinant (Cathflo) 4 mg ONCE INJ 08/23/19 12:30 08/23/19 13:30 08/23/19 13:04 Chlorhexidine Gluconate (Nereida-Hex 2%) 1 applic DAILY@2000 TOPIC 08/18/19 20:00 11/16/19 19:59 08/22/19 20:00 Dextrose (Dextrose 50%) 25 ml Q30M PRN IV Hypoglycemia 08/19/19 13:15 11/17/19 13:14 Dextrose (Dextrose 50%) 50 ml Q30M PRN IV Hypoglycemia 08/19/19 13:15 11/17/19 13:14 Diphenhydramine HCl (Benadryl) 25 mg Q6H PRN IVP Itching 08/21/19 10:30 09/20/19 10:29 08/23/19 07:06 Hydromorphone HCl (Dilaudid) 2 mg Q4H PRN IM Severe Pain (Pain Scale 7-10) 08/21/19 23:45 08/28/19 23:44 08/22/19 16:39 Hydromorphone HCl (Dilaudid) 2 mg Q4H PRN IVP Severe Pain (Pain Scale 7-10) 08/21/19 23:30 08/25/19 19:29 08/23/19 07:07 Insulin Aspart (NovoLOG) BEFORE MEALS AND HS SUBQ 08/19/19 16:30 11/17/19 16:29 Linezolid 300 ml @ 300 mls/hr Q12HR IVPB 08/21/19 21:00 08/28/19 20:59 08/23/19 08:38 Ondansetron HCl (Zofran) 4 mg Q6H PRN IVP Nausea & Vomiting 08/20/19 10:15 09/19/19 10:14 08/22/19 13:24 Pantoprazole (Protonix) 40 mg DAILY ORAL 08/20/19 10:18 09/19/19 10:17 08/23/19 08:37 Vaughn Juárez MD August 23, 2019 13:20
[2019-08-23 16:00] VITALS: BP 98/50
--- NOTE | 2019-08-23 19:11 | NUR ---
HAND-OFF: Report given to Britt Rossi RN. Patient sitting HOB at 30 degrees, awake and alert, watching television, and talking on telephone, bed in lowest position, call light within reach, on room air, in no apparent distress, PICC in place in left upper arm and patent, urisol x [address], colostomy bag in place.
--- NOTE | 2019-08-23 19:30 | NUR ---
NURSE NOTES: Patient is in bed, awake and alert x4. On room air with no signs of distress or SOB. CHRISTIN PICC line in place and flushes well. Bed locked and in lowest position. Call light in easy reach. Will continue to monitor the patient.
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
[2019-08-23 20:00] VITALS: BP 101/57
[2019-08-23] MEDS: Magnesium Oxide 400mg tab ORAL SCH (20:02)
[2019-08-23] MEDS: Dyna-Hex 2% Top Sol 2oz TOPIC SCH (20:06)
--- NOTE | 2019-08-23 20:19 | General Progress Note ---
Assessment/Plan Problem List: (1) Pain ICD Codes: R52 - Pain, unspecified SNOMED: 56779714 (2) Osteomyelitis ICD Codes: M86.9 - Osteomyelitis, unspecified SNOMED: 87738626 (3) Abscess ICD Codes: L02.91 - Abscess SNOMED: 008773756 (4) Paraplegia ICD Codes: G82.20 - Paraplegia SNOMED: 18156956 (5) Asthma ICD Codes: J45.909 - Unspecified asthma, uncomplicated SNOMED: 894082928 (6) Anemia ICD Codes: D64.9 - Anemia, unspecified SNOMED: 956427583 (7) Acute renal failure ICD Codes: N17.9 - Acute kidney failure, unspecified SNOMED: 38458639 (8) right hip wound infecion/ulcer/osteo (9) Sepsis ICD Codes: A41.9 - Sepsis SNOMED: 62160506 (10) Cellulitis ICD Codes: L03.90 - Cellulitis, unspecified SNOMED: 341809046 (11) Abdominal pain ICD Codes: R10.9 - Unspecified abdominal pain SNOMED: 15143051 (12) Dehydration ICD Codes: E86.0 - Dehydration SNOMED: 16867702 Status: stable Assessment/Plan: cont iv abx per id follow up cultures cont drain monitor output benadryl for itching pain rx antiemetics ivf as needed dvt/stress ulcer prophylaxis Subjective ROS Limited/Unobtainable: No Constitutional: Reports: malaise, weakness HEENT: Reports: no symptoms Cardiovascular: Reports: no symptoms Respiratory: Reports: no symptoms Gastrointestinal/Abdominal: Reports: no symptoms Genitourinary: Reports: no symptoms 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: Reports: paresthesia, pre-existing deficit, weakness Endocrine: Reports: no symptoms Hematologic/Lymphatic: Reports: anemia Allergies: Coded Allergies: CEFTRIAXONE (Verified Allergy, Intermediate, SOB, HR-140bpm, face swollen , pt became red, 10/24/15) CODEINE (Verified Allergy, Intermediate, SWELLING, 01/03/11) LATEX (Verified Allergy, Intermediate, SWELLING, 01/03/11) PIPERACILLIN (Verified Allergy, Intermediate, Itching, 08/29/15) 08/29/15 tolerates Ceftaroline TAZOBACTAM (Verified Allergy, Intermediate, Itching, 01/29/15) POLYMYXIN B (Verified Allergy, Mild, Rash, 04/08/16) Suspected allergy reported by VANCOMYCIN (Verified Allergy, Mild, 07/15/14) ASPARAGINASE (Verified Allergy, Unknown, 01/28/14) CEFUROXIME (Unverified Allergy, Unknown, 04/19/16) IRON (Verified Allergy, Unknown, 01/28/14) LATEX, NATURAL RUBBER (Unverified Allergy, Unknown, 06/18/16) All Systems: reviewed and negative except above Subjective no new complaints. no fever or chills. labs noted. h/h lower. low mg. c/o pain- controlled with current rx. overall feels "weaker." Objective Last 24 Hour Vital Signs Date Time Temp Pulse Resp B/P (MAP) Pulse Ox O2 Delivery O2 Flow Rate FiO2 08/23/19 19:00 99.5 08/23/19 16:00 99.5 104 18 98/50 (66) 95 08/23/19 12:00 98.2 100 19 98/56 (70) 100 08/23/19 09:00 Room Air 08/23/19 08:00 97.3 80 19 112/56 (74) 93 08/23/19 04:00 98.4 108 22 104/53 (70) 98 08/23/19 00:00 99.1 111 22 109/53 (71) 98 08/22/19 21:00 Room Air Intake and Output 08/22/19 08/23/19 19:00 07:00 Intake Total 960 ml Output Total 295 ml 550 ml Balance -295 ml 410 ml IV Total 300 ml Blood Product 300 ml Other 360 ml Stool Total 150 ml 400 ml Other 145 ml 150 ml # Voids 1 Laboratory Tests 08/23/19 10:00: Sodium Level 134L, Potassium Level 3.9, Chloride Level 102, Carbon Dioxide Level 21, Anion Gap 11, Blood Urea Nitrogen 15, Creatinine 0.8, Estimat Glomerular Filtration Rate > 60, Glucose Level 161H, Calcium Level 7.9L, Phosphorus Level 4.5, Magnesium Level 1.0L Height (Feet): 5 Height (Inches): 5.00 Weight (Pounds): 219 Objective General Appearance: WD/WN, alert EENT: normal ENT inspection Neck: non-tender, normal alignment, supple Cardiovascular: normal peripheral pulses, normal rate, regular rhythm Respiratory/Chest: chest wall non-tender, lungs clear, normal breath sounds, no respiratory distress Abdomen: normal bowel sounds, non tender, soft, no organomegaly Edema: no edema noted Arm (L), no edema noted Arm (R), no edema noted Leg (L), no edema noted Leg (R), no edema noted Pedal (L), no edema noted Pedal (R), no edema noted Generalized Neurologic: motor weakness, sensory deficit Skin: normal pigmentation Lymphatic: normal anterior cervical (L), normal anterior cervical (R) Jacques Chanel MD August 23, 2019 20:19
[2019-08-24] VITALS: BP 108/55
[2019-08-24 04:00] VITALS: BP 100/55
--- NOTE | 2019-08-24 05:23 | NUR ---
NURSE NOTES: Patient noted to have new wound opening on the left upper thigh, draining milky colored fluid. Some redness noted at the site. Left message for Dr. Cristobal. Awaiting callback. Provided wound care.
[2019-08-24] MEDS: NovoLOG Insulin Flexpen SUBQ SCH ×4 (05:55→21:00)
--- NOTE | 2019-08-24 06:16 | NUR ---
NURSE NOTES: Patient refused AM changing, stating she would like to be changed later. Offered to empty colostomy bag; patient refused.
[2019-08-24] MEDS: DiphenhydrAMINE 50mg/ml Inj IVP PRN ×2 (06:40→16:40)
[2019-08-24 06:54] LABS: ANION GAP 10 mmol/L (5-15); BLOOD UREA NITROGEN 13 mg/dL (7-18); CARBON DIOXIDE 24 MMOL/L (21-32); CHLORIDE 100 MMOL/L (98-107); CREATININE 0.8 MG/DL (0.55-1.30); POTASSIUM 3.7 MMOL/L (3.5-5.1); SODIUM 134 MMOL/L (136-145)
--- NOTE | 2019-08-24 06:57 | General Progress Note ---
Assessment/Plan Problem List: (1) Pain ICD Codes: R52 - Pain, unspecified SNOMED: 16730663 (2) Osteomyelitis ICD Codes: M86.9 - Osteomyelitis, unspecified SNOMED: 75659532 (3) Abscess ICD Codes: L02.91 - Abscess SNOMED: 938638951 (4) Paraplegia ICD Codes: G82.20 - Paraplegia SNOMED: 48200332 (5) Asthma ICD Codes: J45.909 - Unspecified asthma, uncomplicated SNOMED: 259220143 (6) Anemia ICD Codes: D64.9 - Anemia, unspecified SNOMED: 478712383 (7) Acute renal failure ICD Codes: N17.9 - Acute kidney failure, unspecified SNOMED: 53818237 (8) right hip wound infecion/ulcer/osteo (9) Sepsis ICD Codes: A41.9 - Sepsis SNOMED: 35824638 (10) Cellulitis ICD Codes: L03.90 - Cellulitis, unspecified SNOMED: 573162669 (11) Abdominal pain ICD Codes: R10.9 - Unspecified abdominal pain SNOMED: 59329423 (12) Dehydration ICD Codes: E86.0 - Dehydration SNOMED: 96613383 Status: stable Assessment/Plan: cont iv abx per id follow up cultures cont drain monitor output plastics follow up regarding new draining wound benadryl for itching pain rx antiemetics ivf as needed dvt/stress ulcer prophylaxis Subjective ROS Limited/Unobtainable: No Constitutional: Reports: malaise, weakness HEENT: Reports: no symptoms Cardiovascular: Reports: no symptoms Respiratory: Reports: no symptoms Gastrointestinal/Abdominal: Reports: no symptoms Genitourinary: Reports: no symptoms 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: Reports: pre-existing deficit Endocrine: Reports: no symptoms Hematologic/Lymphatic: Reports: no symptoms Allergies: Coded Allergies: CEFTRIAXONE (Verified Allergy, Intermediate, SOB, HR-140bpm, face swollen , pt became red, 10/24/15) CODEINE (Verified Allergy, Intermediate, SWELLING, 01/03/11) LATEX (Verified Allergy, Intermediate, SWELLING, 01/03/11) PIPERACILLIN (Verified Allergy, Intermediate, Itching, 08/29/15) 08/29/15 tolerates Ceftaroline TAZOBACTAM (Verified Allergy, Intermediate, Itching, 01/29/15) POLYMYXIN B (Verified Allergy, Mild, Rash, 04/08/16) Suspected allergy reported by VANCOMYCIN (Verified Allergy, Mild, 07/15/14) ASPARAGINASE (Verified Allergy, Unknown, 01/28/14) CEFUROXIME (Unverified Allergy, Unknown, 04/19/16) IRON (Verified Allergy, Unknown, 01/28/14) LATEX, NATURAL RUBBER (Unverified Allergy, Unknown, 06/18/16) All Systems: reviewed and negative except above Subjective 200cc output from drain, has new draining wound left upper thigh. no fever or chills. +pain. +colostomy Objective Last 24 Hour Vital Signs Date Time Temp Pulse Resp B/P (MAP) Pulse Ox O2 Delivery O2 Flow Rate FiO2 08/24/19 04:00 98.7 80 20 100/55 (70) 97 08/24/19 00:00 98.7 98 22 108/55 (72) 97 08/23/19 21:00 Room Air 08/23/19 20:00 99.1 81 20 101/57 (72) 95 08/23/19 19:00 99.5 08/23/19 16:00 99.5 104 18 98/50 (66) 95 08/23/19 12:00 98.2 100 19 98/56 (70) 100 08/23/19 09:00 Room Air 08/23/19 08:00 97.3 80 19 112/56 (74) 93 Intake and Output 08/23/19 08/24/19 19:00 07:00 Intake Total 900 ml 480 ml Output Total 325 ml Balance 900 ml 155 ml Intake Oral 600 ml 480 ml IV Total 300 ml Stool Total 100 ml Other 225 ml # Voids 1 Laboratory Tests 08/23/19 10:00: Sodium Level 134L, Potassium Level 3.9, Chloride Level 102, Carbon Dioxide Level 21, Anion Gap 11, Blood Urea Nitrogen 15, Creatinine 0.8, Estimat Glomerular Filtration Rate > 60, Glucose Level 161H, Calcium Level 7.9L, Phosphorus Level 4.5, Magnesium Level 1.0L 08/24/19 05:00: Sodium Level 134L, Potassium Level 3.7, Chloride Level 100, Carbon Dioxide Level 24, Anion Gap 10, Blood Urea Nitrogen 13, Creatinine 0.8, Estimat Glomerular Filtration Rate > 60, Glucose Level 192H, Calcium Level 8.0L, Magnesium Level 1.9 Height (Feet): 5 Height (Inches): 5.00 Weight (Pounds): 219 Objective General Appearance: WD/WN, alert EENT: normal ENT inspection Neck: non-tender, normal alignment, supple Cardiovascular: normal peripheral pulses, normal rate, regular rhythm Respiratory/Chest: chest wall non-tender, lungs clear, normal breath sounds, no respiratory distress Abdomen: normal bowel sounds, non tender, soft, no organomegaly Edema: no edema noted Arm (L), no edema noted Arm (R), no edema noted Leg (L), no edema noted Leg (R), no edema noted Pedal (L), no edema noted Pedal (R), no edema noted Generalized Neurologic: motor weakness, sensory deficit Skin: normal pigmentation Lymphatic: normal anterior cervical (L), normal anterior cervical (R) Jacques Chanel MD August 24, 2019 06:57
--- NOTE | 2019-08-24 07:01 | NUR ---
NURSE NOTES: Spoke with Dr. Chanel; made him aware of patient's wound drainage.
--- NOTE | 2019-08-24 07:31 | NUR ---
HAND-OFF: Report given to ANISA Barreto.
[2019-08-24 08:00] VITALS: BP 99/56
--- NOTE | 2019-08-24 08:00 | NUR ---
pt is in the bed alert and awake. no SOB noted. Denies any pain at this time. no acute distress noted. call light placed within reach, will continue to follow plan of care.
[2019-08-24] MEDS: Magnesium Oxide 400mg tab ORAL SCH ×3 (08:20→18:00)
--- NOTE | 2019-08-24 08:34 | Pulmonology Progress Note ---
Subjective ROS Limited/Unobtainable: No Constitutional: Denies: fever, chills Gastrointestinal/Abdominal: Reports: nausea, vomiting; Denies: diarrhea Musculoskeletal: Reports: pain Allergies: Coded Allergies: CEFTRIAXONE (Verified Allergy, Intermediate, SOB, HR-140bpm, face swollen , pt became red, 10/24/15) CODEINE (Verified Allergy, Intermediate, SWELLING, 01/03/11) LATEX (Verified Allergy, Intermediate, SWELLING, 01/03/11) PIPERACILLIN (Verified Allergy, Intermediate, Itching, 08/29/15) 08/29/15 tolerates Ceftaroline TAZOBACTAM (Verified Allergy, Intermediate, Itching, 01/29/15) POLYMYXIN B (Verified Allergy, Mild, Rash, 04/08/16) Suspected allergy reported by VANCOMYCIN (Verified Allergy, Mild, 07/15/14) ASPARAGINASE (Verified Allergy, Unknown, 01/28/14) CEFUROXIME (Unverified Allergy, Unknown, 04/19/16) IRON (Verified Allergy, Unknown, 01/28/14) LATEX, NATURAL RUBBER (Unverified Allergy, Unknown, 06/18/16) All Systems: reviewed and negative except above Subjective +pain poor surgical candidate s/p aspiration by CT no fevers PICC clogged agrees to management Objective Last 24 Hour Vital Signs Date Time Temp Pulse Resp B/P (MAP) Pulse Ox O2 Delivery O2 Flow Rate FiO2 08/24/19 04:00 98.7 80 20 100/55 (70) 97 08/24/19 00:00 98.7 98 22 108/55 (72) 97 08/23/19 21:00 Room Air 08/23/19 20:00 99.1 81 20 101/57 (72) 95 08/23/19 19:00 99.5 08/23/19 16:00 99.5 104 18 98/50 (66) 95 08/23/19 12:00 98.2 100 19 98/56 (70) 100 08/23/19 09:00 Room Air Intake and Output 08/23/19 08/24/19 19:00 07:00 Intake Total 900 ml 480 ml Output Total 325 ml Balance 900 ml 155 ml Intake Oral 600 ml 480 ml IV Total 300 ml Stool Total 100 ml Other 225 ml # Voids 1 Objective GENERAL: Patient is an ill-appearing female. in pain HEENT: Negative. NECK: Supple. LUNGS: Good air entry. CARDIAC: S1, S2. Regular rate and rhythm. ABDOMEN: Soft, nontender. EXTREMITIES: With significant atrophy. General Appearance: no acute distress HEENT: mucous membranes moist Abdomen: soft, non tender Extremities: other - dependent edema Skin: other - sleeping Musculoskeletal: other - back drains with pus bilaterally Laboratory Tests 08/23/19 10:00: Sodium Level 134L, Potassium Level 3.9, Chloride Level 102, Carbon Dioxide Level 21, Anion Gap 11, Blood Urea Nitrogen 15, Creatinine 0.8, Estimat Glomerular Filtration Rate > 60, Glucose Level 161H, Calcium Level 7.9L, Phosphorus Level 4.5, Magnesium Level 1.0L 08/24/19 05:00: Sodium Level 134L, Potassium Level 3.7, Chloride Level 100, Carbon Dioxide Level 24, Anion Gap 10, Blood Urea Nitrogen 13, Creatinine 0.8, Estimat Glomerular Filtration Rate > 60, Glucose Level 192H, Calcium Level 8.0L, Magnesium Level 1.9 Current Medications Medications (Trade) Dose Ordered Sig/Pineda Route PRN Reason Start Time Stop Time Status Last Admin Dose Admin Acetaminophen (Tylenol) 650 mg Q4H PRN ORAL Mild Pain (Pain Scale 1-3) 08/20/19 10:15 09/19/19 10:14 Acetaminophen/ Hydrocodone Bitart ([place] 10/325) 1 tab Q4HR PRN ORAL Mild Pain (Pain Scale 1-3) 08/18/19 07:45 08/25/19 07:44 Acetaminophen/ Hydrocodone Bitart ([place] 10/325) 2 tab Q4HR PRN ORAL Moderate Pain (Pain Scale 4-6) 08/18/19 07:45 08/25/19 07:44 Al Hydroxide/Mg Hydroxide (Mylanta) 30 ml Q4H PRN ORAL INDIGESTION 08/20/19 10:15 09/19/19 10:14 Chlorhexidine Gluconate (Nereida-Hex 2%) 1 applic DAILY@2000 TOPIC 08/18/19 20:00 11/16/19 19:59 08/23/19 20:06 Dextrose (Dextrose 50%) 25 ml Q30M PRN IV Hypoglycemia 08/19/19 13:15 11/17/19 13:14 Dextrose (Dextrose 50%) 50 ml Q30M PRN IV Hypoglycemia 08/19/19 13:15 11/17/19 13:14 Diphenhydramine HCl (Benadryl) 25 mg Q6H PRN IVP Itching 08/21/19 10:30 09/20/19 10:29 08/24/19 06:40 Hydromorphone HCl (Dilaudid) 2 mg Q4H PRN IM Severe Pain (Pain Scale 7-10) 08/21/19 23:45 08/28/19 23:44 08/22/19 16:39 Hydromorphone HCl (Dilaudid) 2 mg Q4H PRN IVP Severe Pain (Pain Scale 7-10) 08/21/19 23:30 08/25/19 19:29 08/24/19 06:41 Insulin Aspart (NovoLOG) BEFORE MEALS AND HS SUBQ 08/19/19 16:30 11/17/19 16:29 Linezolid 300 ml @ 300 mls/hr Q12HR IVPB 08/21/19 21:00 08/28/19 20:59 08/24/19 08:20 Magnesium Oxide (Mag-Ox 400mg) 400 mg THREE TIMES A DAY ORAL 08/23/19 19:45 09/22/19 19:44 08/24/19 08:20 Ondansetron HCl (Zofran) 4 mg Q6H PRN IVP Nausea & Vomiting 08/20/19 10:15 09/19/19 10:14 08/22/19 13:24 Pantoprazole (Protonix) 40 mg DAILY ORAL 08/20/19 10:18 09/19/19 10:17 08/24/19 08:20 Assessment/Plan Assessment/Plan IMPRESSION: Multiple abscesses s/p aspiration, hyponatremia, hyperkalemia, acute renal failure, shortness of breath, dyspnea, leukocytosis, anemia, thrombocytosis. PLAN PICC - care oxygen as needed needs transfusion to keep HH >8 linezolid and levaquin IV ID to recommend on disposition hydrate as needed monitor HH pain control poor surgical candidate defer dc to ID impression, plan, and exam edited and reviewed in detail care discussed with Thanh Garcia MD August 24, 2019 08:34
--- NOTE | 2019-08-24 11:50 | Infectious Diseases Prog Note ---
Assessment/Plan Assessment/Plan antibiotics : linezolid A 1. lumbar abscess s/p drainage with MRSA 2. MRSA sepsis 3. left knee septic arthritis 4. paraplegia P 1. continue linezolid iv 2. will follow up cultures Subjective ROS Limited/Unobtainable: Yes Allergies: Coded Allergies: CEFTRIAXONE (Verified Allergy, Intermediate, SOB, HR-140bpm, face swollen , pt became red, 10/24/15) CODEINE (Verified Allergy, Intermediate, SWELLING, 01/03/11) LATEX (Verified Allergy, Intermediate, SWELLING, 01/03/11) PIPERACILLIN (Verified Allergy, Intermediate, Itching, 08/29/15) 08/29/15 tolerates Ceftaroline TAZOBACTAM (Verified Allergy, Intermediate, Itching, 01/29/15) POLYMYXIN B (Verified Allergy, Mild, Rash, 04/08/16) Suspected allergy reported by VANCOMYCIN (Verified Allergy, Mild, 07/15/14) ASPARAGINASE (Verified Allergy, Unknown, 01/28/14) CEFUROXIME (Unverified Allergy, Unknown, 04/19/16) IRON (Verified Allergy, Unknown, 01/28/14) LATEX, NATURAL RUBBER (Unverified Allergy, Unknown, 06/18/16) Objective Vital Signs Last 24 Hour Vital Signs Date Time Temp Pulse Resp B/P (MAP) Pulse Ox O2 Delivery O2 Flow Rate FiO2 08/24/19 09:00 Room Air 08/24/19 08:00 98.1 105 18 99/56 (70) 94 08/24/19 04:00 98.7 80 20 100/55 (70) 97 08/24/19 00:00 98.7 98 22 108/55 (72) 97 08/23/19 21:00 Room Air 08/23/19 20:00 99.1 81 20 101/57 (72) 95 08/23/19 19:00 99.5 08/23/19 16:00 99.5 104 18 98/50 (66) 95 08/23/19 12:00 98.2 100 19 98/56 (70) 100 Height (Feet): 5 Height (Inches): 5.00 Weight (Pounds): 219 Respiratory/Chest: lungs clear Cardiovascular: normal rate, regular rhythm, no gallop/murmur Abdomen: soft, non tender Extremities: no edema Musculoskeletal: other - back drains with brown drainage Laboratory Tests Test 08/24/19 05:00 Sodium Level 134 MMOL/L (136-145) L Potassium Level 3.7 MMOL/L (3.5-5.1) Chloride Level 100 MMOL/L (98-107) Carbon Dioxide Level 24 MMOL/L (21-32) Anion Gap 10 mmol/L (5-15) Blood Urea Nitrogen 13 mg/dL (7-18) Creatinine 0.8 MG/DL (0.55-1.30) Estimat Glomerular Filtration Rate > 60 mL/min (>60) Glucose Level 192 MG/DL (74-106) H Calcium Level 8.0 MG/DL (8.5-10.1) L Magnesium Level 1.9 MG/DL (1.8-2.4) Current Medications Medications (Trade) Dose Ordered Sig/Pineda Route PRN Reason Start Time Stop Time Status Last Admin Dose Admin Acetaminophen (Tylenol) 650 mg Q4H PRN ORAL Mild Pain (Pain Scale 1-3) 08/20/19 10:15 09/19/19 10:14 Acetaminophen/ Hydrocodone Bitart ([place] 10/325) 1 tab Q4HR PRN ORAL Mild Pain (Pain Scale 1-3) 08/18/19 07:45 08/25/19 07:44 Acetaminophen/ Hydrocodone Bitart ([place] 10/325) 2 tab Q4HR PRN ORAL Moderate Pain (Pain Scale 4-6) 08/18/19 07:45 08/25/19 07:44 Al Hydroxide/Mg Hydroxide (Mylanta) 30 ml Q4H PRN ORAL INDIGESTION 08/20/19 10:15 09/19/19 10:14 Chlorhexidine Gluconate (Nereida-Hex 2%) 1 applic DAILY@1999 TOPIC 08/18/19 20:00 11/16/19 19:59 08/23/19 20:06 Dextrose (Dextrose 50%) 25 ml Q30M PRN IV Hypoglycemia 08/19/19 13:15 11/17/19 13:14 Dextrose (Dextrose 50%) 50 ml Q30M PRN IV Hypoglycemia 08/19/19 13:15 11/17/19 13:14 Diphenhydramine HCl (Benadryl) 25 mg Q6H PRN IVP Itching 08/21/19 10:30 09/20/19 10:29 08/24/19 06:40 Hydromorphone HCl (Dilaudid) 2 mg Q4H PRN IM Severe Pain (Pain Scale 7-10) 08/21/19 23:45 08/28/19 23:44 08/22/19 16:39 Hydromorphone HCl (Dilaudid) 2 mg Q4H PRN IVP Severe Pain (Pain Scale 7-10) 08/21/19 23:30 08/25/19 19:29 08/24/19 06:41 Insulin Aspart (NovoLOG) BEFORE MEALS AND HS SUBQ 08/19/19 16:30 11/17/19 16:29 Linezolid 300 ml @ 300 mls/hr Q12HR IVPB 08/21/19 21:00 08/28/19 20:59 08/24/19 08:20 Magnesium Oxide (Mag-Ox 400mg) 400 mg THREE TIMES A DAY ORAL 08/23/19 19:45 09/22/19 19:44 08/24/19 08:20 Ondansetron HCl (Zofran) 4 mg Q6H PRN IVP Nausea & Vomiting 08/20/19 10:15 09/19/19 10:14 08/22/19 13:24 Pantoprazole (Protonix) 40 mg DAILY ORAL 08/20/19 10:18 09/19/19 10:17 08/24/19 08:20 Deng Reyes MD August 24, 2019 11:49
[2019-08-24 12:00] VITALS: BP 102/52
--- NOTE | 2019-08-24 14:37 | General Progress Note ---
Assessment/Plan Status: stable Assessment/Plan: Patient with new abscess location. Culture taken by me. Debrided sharply to the level of bone to remove slough and loculations disrupted both manually and with scalpel for better drainage and easier packing. 600cc saline irrigated into the wound until effluent returned clear. Left posterior thigh ulcer with some fibrotic debris and this was debrided to level of subcutaneous tissue. Dressings replaced to the knee, left posterior thigh, and new hip ulcer. Await culture results to see if there is any change to antibiotic management. Orders placed. Subjective Date patient seen: August 24, 2019 Time patient seen: 14:17 Constitutional: Reports: no symptoms Gastrointestinal/Abdominal: Reports: poor appetite Hematologic/Lymphatic: Reports: anemia Allergies: Coded Allergies: CEFTRIAXONE (Verified Allergy, Intermediate, SOB, HR-140bpm, face swollen , pt became red, 10/24/15) CODEINE (Verified Allergy, Intermediate, SWELLING, 01/03/11) LATEX (Verified Allergy, Intermediate, SWELLING, 01/03/11) PIPERACILLIN (Verified Allergy, Intermediate, Itching, 08/29/15) 08/29/15 tolerates Ceftaroline TAZOBACTAM (Verified Allergy, Intermediate, Itching, 01/29/15) POLYMYXIN B (Verified Allergy, Mild, Rash, 04/08/16) Suspected allergy reported by MD VANCOMYCIN (Verified Allergy, Mild, 07/15/14) ASPARAGINASE (Verified Allergy, Unknown, 01/28/14) CEFUROXIME (Unverified Allergy, Unknown, 04/19/16) IRON (Verified Allergy, Unknown, 01/28/14) LATEX, NATURAL RUBBER (Unverified Allergy, Unknown, 06/18/16) Subjective F/u evaluation on patient well known to me. She underwent CT guided drainage of back abscess several days ago and has drains left in place. Cultures + for MRSA. She now has a new complaint of drainage from her left lateral thigh at the level of her greater trochanter which began last night. No sxs of fevers or chills. Currently on linezolid per ID. Objective Last 24 Hour Vital Signs Date Time Temp Pulse Resp B/P (MAP) Pulse Ox O2 Delivery O2 Flow Rate FiO2 08/24/19 12:00 98.1 102 18 102/52 (69) 98 08/24/19 09:00 Room Air 08/24/19 08:00 98.1 105 18 99/56 (70) 94 08/24/19 04:00 98.7 80 20 100/55 (70) 97 08/24/19 00:00 98.7 98 22 108/55 (72) 97 08/23/19 21:00 Room Air 08/23/19 20:00 99.1 81 20 101/57 (72) 95 08/23/19 19:00 99.5 08/23/19 16:00 99.5 104 18 98/50 (66) 95 Intake and Output 08/23/19 08/24/19 19:00 07:00 Intake Total 900 ml 480 ml Output Total 325 ml Balance 900 ml 155 ml Intake Oral 600 ml 480 ml IV Total 300 ml Stool Total 100 ml Other 225 ml # Voids 1 Laboratory Tests 08/24/19 05:00: Sodium Level 134L, Potassium Level 3.7, Chloride Level 100, Carbon Dioxide Level 24, Anion Gap 10, Blood Urea Nitrogen 13, Creatinine 0.8, Estimat Glomerular Filtration Rate > 60, Glucose Level 192H, Calcium Level 8.0L, Magnesium Level 1.9 Height (Feet): 5 Height (Inches): 5.00 Weight (Pounds): 219 General Appearance: no apparent distress, alert Respiratory/Chest: no respiratory distress Abdomen: non tender Neurologic: alert Skin: other - Left hip with skin opening and purulent drainage. Slough present and wound probes down to bone with significant undermining circumferentially. Keegan Cristobal MD August 24, 2019 14:37
--- NOTE | 2019-08-24 16:11 | NUR ---
CASE MANAGEMENT: REVIEW 08/24/2019 SI:INTRACTABLE PAIN. right hip wound infecion/ulcer/osteo. VS: T 98.1 HR 102 RR 18 B/P 102/52 SATS 98% ON RA LABS: Sodium Level 134L, Potassium Level 3.7, Chloride Level 100, Carbon Dioxide Level 24, Anion Gap 10, Blood Urea Nitrogen 13, Creatinine 0.8, Estimat Glomerular Filtration Rate > 60, Glucose Level 192H, Calcium Level 8.0L, Magnesium Level 1.9 IS:INSULIN ASPART SUBQ AC/HS LINEZOLID IV Q12H MAG OX PO TID MED/SURG PLAN OF CARE: Debrided sharply to the level of bone to remove slough and loculations
--- NOTE | 2019-08-24 17:55 | NUR ---
Patient refuses to be cleaned. states "leave my room". RN made attempt to educate pt the benefit of being cleaned and dried. Patient continues to be noncompliant.
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
--- NOTE | 2019-08-24 19:30 | NUR ---
HAND-OFF: Report given to Brian.
--- NOTE | 2019-08-24 19:31 | NUR ---
NURSE NOTES: Receive pt on the bed awake,A&o x4. No distress and shortness of breath, no pain, no fever and no cough. pt is Bed bound. Bed is in the lower position, alarm on and locked. call light within reach; will keep monitoring.
[2019-08-24 20:00] VITALS: BP 106/53
[2019-08-24] MEDS: Dyna-Hex 2% Top Sol 2oz TOPIC SCH (21:36)
[2019-08-25] VITALS: BP 108/60
[2019-08-25] MEDS: DiphenhydrAMINE 50mg/ml Inj IVP PRN ×3 (05:28→20:26)
--- NOTE | 2019-08-25 06:18 | NUR ---
RD ASSESSMENT & RECOMMENDATIONS SEE CARE ACTIVITY FOR COMPLETE ASSESSMENT DAILY ESTIMATED NEEDS: Needs based on Wound + paraplegia, 65 kg abw 28-30 kcals/kg 2664-9710 total kcals 1.25-2 g protein/kg 81-130 g total protein 25-30 mL/kg 9798-1895 total fluid mLs NUTRITION DIAGNOSIS: (1) Increased KCAL, protein, and micronutrient needs r/t wound healing as evidenced pt w/ multiple full thickness wounds @ sacrum, R buttock, L ischium, R knee, poasterior L leg, lateral R tibia, unstageable wound @ distal/lateral R tibia, and DTPI @ R gluteal cheek, admitted w/ new paraspinal abscess as well. (2) Altered nutrition related values R/T diabetes as evidenced by elev BGs (192, 161), A1C of 8.4 (07/29/19). CURRENT DIET:REGULAR PO DIET RECOMMENDATIONS: CCHO MED + High Prot snacks BID ADDITIONAL RECOMMENDATIONS: * Recalibrated bedscale wt for accurate CBW-> monitor weekly wts * WOUND CARE: MVI w/ min x1+VIT C 500mg BID ZnSO4 220mg QD x 10 days Luiz BID recommended but pt w/ h/o refusal * Monitor BGs- elevated, A1C >8.0,pt refusing NISS and carb controlled diet * Add Glucenra 1 marine daily w/ variable PO (220kcal/10g prot) .
[2019-08-25] MEDS: NovoLOG Insulin Flexpen SUBQ SCH ×4 (06:26→20:18)
[2019-08-25 07:13] LABS: ANION GAP 9 mmol/L (5-15); BLOOD UREA NITROGEN 14 mg/dL (7-18); CALCIUM 7.8 MG/DL (8.5-10.1); CARBON DIOXIDE 24 MMOL/L (21-32); CHLORIDE 102 MMOL/L (98-107); CREATININE 0.9 MG/DL (0.55-1.30); PHOSPHORUS 3.8 MG/DL (2.5-4.9); POTASSIUM 3.5 MMOL/L (3.5-5.1); SODIUM 135 MMOL/L (136-145)
--- NOTE | 2019-08-25 07:36 | NUR ---
HAND-OFF: Report given to ANISA Mann.
[2019-08-25 08:00] VITALS: BP 98/46
--- NOTE | 2019-08-25 08:08 | NUR ---
NURSE NOTES: Report received from Sharad LANGE. Patient seen on rounds asleep, not in distress, comfortable and tolerating room air. Nurse reports that patient has refused accuchecks and some wound care. Will offer again today. PICC line on CHRISTIN patent and intact. Colostomy bag on and draining well. Wound dressings intact. Bed low and locked, siderails up x2, zone alarm on 1, call light within reach and instructed to call nurse for assistance. Will continue to monitor.
[2019-08-25] MEDS: Magnesium Oxide 400mg tab ORAL SCH ×3 (09:00→17:50)
--- NOTE | 2019-08-25 09:36 | General Progress Note ---
Assessment/Plan Problem List: (1) Pain ICD Codes: R52 - Pain, unspecified SNOMED: 85882061 (2) Osteomyelitis ICD Codes: M86.9 - Osteomyelitis, unspecified SNOMED: 92516224 (3) Abscess ICD Codes: L02.91 - Abscess SNOMED: 990499624 (4) Paraplegia ICD Codes: G82.20 - Paraplegia SNOMED: 72831956 (5) Asthma ICD Codes: J45.909 - Unspecified asthma, uncomplicated SNOMED: 487784427 (6) Anemia ICD Codes: D64.9 - Anemia, unspecified SNOMED: 729499485 (7) Acute renal failure ICD Codes: N17.9 - Acute kidney failure, unspecified SNOMED: 46820317 (8) right hip wound infecion/ulcer/osteo (9) Sepsis ICD Codes: A41.9 - Sepsis SNOMED: 93904729 (10) Cellulitis ICD Codes: L03.90 - Cellulitis, unspecified SNOMED: 391557320 (11) Abdominal pain ICD Codes: R10.9 - Unspecified abdominal pain SNOMED: 63151754 (12) Dehydration ICD Codes: E86.0 - Dehydration SNOMED: 48714049 Status: stable Assessment/Plan: cont iv abx per id follow up cultures cont drain/wound care per plastics monitor output benadryl for itching pain rx antiemetics ivf as needed dvt/stress ulcer prophylaxis replace k Subjective ROS Limited/Unobtainable: No Constitutional: Reports: malaise, weakness HEENT: Reports: no symptoms Cardiovascular: Reports: no symptoms Respiratory: Reports: no symptoms Gastrointestinal/Abdominal: Reports: no symptoms Genitourinary: Reports: no symptoms 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: Reports: numbness, paresthesia, pre-existing deficit, weakness Endocrine: Reports: no symptoms Hematologic/Lymphatic: Reports: anemia Allergies: Coded Allergies: CEFTRIAXONE (Verified Allergy, Intermediate, SOB, HR-140bpm, face swollen , pt became red, 10/24/15) CODEINE (Verified Allergy, Intermediate, SWELLING, 01/03/11) LATEX (Verified Allergy, Intermediate, SWELLING, 01/03/11) PIPERACILLIN (Verified Allergy, Intermediate, Itching, 08/29/15) 08/29/15 tolerates Ceftaroline TAZOBACTAM (Verified Allergy, Intermediate, Itching, 01/29/15) POLYMYXIN B (Verified Allergy, Mild, Rash, 04/08/16) Suspected allergy reported by VANCOMYCIN (Verified Allergy, Mild, 07/15/14) ASPARAGINASE (Verified Allergy, Unknown, 01/28/14) CEFUROXIME (Unverified Allergy, Unknown, 04/19/16) IRON (Verified Allergy, Unknown, 01/28/14) LATEX, NATURAL RUBBER (Unverified Allergy, Unknown, 06/18/16) All Systems: reviewed and negative except above Subjective s/p i and d new abscess by plastics. no new complaints. pain controlled. no fevers or chills. low k noted. Objective Last 24 Hour Vital Signs Date Time Temp Pulse Resp B/P (MAP) Pulse Ox O2 Delivery O2 Flow Rate FiO2 08/25/19 08:00 97.9 90 98/46 (63) 08/25/19 00:00 97.0 81 23 108/60 (76) 96 08/24/19 21:00 Room Air 08/24/19 20:00 98.8 100 18 106/53 (70) 95 08/24/19 12:00 98.1 102 18 102/52 (69) 98 Intake and Output 08/24/19 08/25/19 19:00 07:00 Intake Total 400 ml 300 ml Output Total 325 ml Balance 75 ml 300 ml Intake Oral 400 ml IV Total 300 ml Stool Total 100 ml Other 225 ml # Voids 1 Laboratory Tests 08/25/19 05:10: Sodium Level 135L, Potassium Level 3.5, Chloride Level 102, Carbon Dioxide Level 24, Anion Gap 9, Blood Urea Nitrogen 14, Creatinine 0.9, Estimat Glomerular Filtration Rate > 60, Glucose Level 175H, Calcium Level 7.8L, Phosphorus Level 3.8, Magnesium Level 1.5L Height (Feet): 5 Height (Inches): 5.00 Weight (Pounds): 219 Objective General Appearance: WD/WN, alert EENT: normal ENT inspection Neck: non-tender, normal alignment, supple Cardiovascular: normal peripheral pulses, normal rate, regular rhythm Respiratory/Chest: chest wall non-tender, lungs clear, normal breath sounds, no respiratory distress Abdomen: normal bowel sounds, non tender, soft, no organomegaly Edema: no edema noted Arm (L), no edema noted Arm (R), no edema noted Leg (L), no edema noted Leg (R), no edema noted Pedal (L), no edema noted Pedal (R), no edema noted Generalized Neurologic: motor weakness, sensory deficit Skin: normal pigmentation Lymphatic: normal anterior cervical (L), normal anterior cervical (R) Jacques Chanel MD August 25, 2019 09:36
--- NOTE | 2019-08-25 10:17 | Pulmonology Progress Note ---
Subjective ROS Limited/Unobtainable: No Constitutional: Denies: fever, chills Gastrointestinal/Abdominal: Reports: nausea, vomiting; Denies: diarrhea Musculoskeletal: Reports: pain Allergies: Coded Allergies: CEFTRIAXONE (Verified Allergy, Intermediate, SOB, HR-140bpm, face swollen , pt became red, 10/24/15) CODEINE (Verified Allergy, Intermediate, SWELLING, 01/03/11) LATEX (Verified Allergy, Intermediate, SWELLING, 01/03/11) PIPERACILLIN (Verified Allergy, Intermediate, Itching, 08/29/15) 08/29/15 tolerates Ceftaroline TAZOBACTAM (Verified Allergy, Intermediate, Itching, 01/29/15) POLYMYXIN B (Verified Allergy, Mild, Rash, 04/08/16) Suspected allergy reported by VANCOMYCIN (Verified Allergy, Mild, 07/15/14) ASPARAGINASE (Verified Allergy, Unknown, 01/28/14) CEFUROXIME (Unverified Allergy, Unknown, 04/19/16) IRON (Verified Allergy, Unknown, 01/28/14) LATEX, NATURAL RUBBER (Unverified Allergy, Unknown, 06/18/16) All Systems: reviewed and negative except above Subjective +pain poor surgical candidate s/p aspiration by surgery no fevers agrees to plan Objective Last 24 Hour Vital Signs Date Time Temp Pulse Resp B/P (MAP) Pulse Ox O2 Delivery O2 Flow Rate FiO2 08/25/19 08:00 97.9 90 98/46 (63) 08/25/19 00:00 97.0 81 23 108/60 (76) 96 08/24/19 21:00 Room Air 08/24/19 20:00 98.8 100 18 106/53 (70) 95 08/24/19 12:00 98.1 102 18 102/52 (69) 98 Intake and Output 08/24/19 08/25/19 18:59 06:59 Intake Total 400 ml 300 ml Output Total 325 ml Balance 75 ml 300 ml Intake Oral 400 ml IV Total 300 ml Stool Total 100 ml Other 225 ml # Voids 1 Objective GENERAL: Patient is an ill-appearing female. in pain HEENT: Negative. NECK: Supple. LUNGS: Good air entry. CARDIAC: S1, S2. Regular rate and rhythm. ABDOMEN: Soft, nontender. EXTREMITIES: With significant atrophy. Microbiology Date/Time Source Procedure Growth Status 08/24/19 14:15 Wound Gram Stain - Final Resulted 08/24/19 14:15 Wound Wound Culture Pending Resulted Laboratory Tests 08/25/19 05:10: Sodium Level 135L, Potassium Level 3.5, Chloride Level 102, Carbon Dioxide Level 24, Anion Gap 9, Blood Urea Nitrogen 14, Creatinine 0.9, Estimat Glomerular Filtration Rate > 60, Glucose Level 175H, Calcium Level 7.8L, Phosphorus Level 3.8, Magnesium Level 1.5L Current Medications Medications (Trade) Dose Ordered Sig/Pineda Route PRN Reason Start Time Stop Time Status Last Admin Dose Admin Acetaminophen (Tylenol) 650 mg Q4H PRN ORAL Mild Pain (Pain Scale 1-3) 08/20/19 10:15 09/19/19 10:14 Al Hydroxide/Mg Hydroxide (Mylanta) 30 ml Q4H PRN ORAL INDIGESTION 08/20/19 10:15 09/19/19 10:14 Chlorhexidine Gluconate (Nereida-Hex 2%) 1 applic DAILY@2000 TOPIC 08/18/19 20:00 11/16/19 19:59 08/24/19 21:36 Dextrose (Dextrose 50%) 25 ml Q30M PRN IV Hypoglycemia 08/19/19 13:15 11/17/19 13:14 Dextrose (Dextrose 50%) 50 ml Q30M PRN IV Hypoglycemia 08/19/19 13:15 11/17/19 13:14 Diphenhydramine HCl (Benadryl) 25 mg Q6H PRN IVP Itching 08/21/19 10:30 09/20/19 10:29 08/25/19 05:28 Hydromorphone HCl (Dilaudid) 2 mg Q4H PRN IM Severe Pain (Pain Scale 7-10) 08/21/19 23:45 08/28/19 23:44 08/24/19 21:37 Hydromorphone HCl (Dilaudid) 2 mg Q4H PRN IVP Severe Pain (Pain Scale 7-10) 08/21/19 23:30 08/25/19 19:29 08/25/19 09:37 Insulin Aspart (NovoLOG) BEFORE MEALS AND HS SUBQ 08/19/19 16:30 11/17/19 16:29 Linezolid 300 ml @ 300 mls/hr Q12HR IVPB 08/21/19 21:00 08/28/19 20:59 08/25/19 09:00 Magnesium Oxide (Mag-Ox 400mg) 400 mg THREE TIMES A DAY ORAL 08/23/19 19:45 09/22/19 19:44 08/25/19 09:00 Ondansetron HCl (Zofran) 4 mg Q6H PRN IVP Nausea & Vomiting 08/20/19 10:15 09/19/19 10:14 08/24/19 21:37 Pantoprazole (Protonix) 40 mg DAILY ORAL 08/20/19 10:18 09/19/19 10:17 08/25/19 09:00 Potassium Chloride (K-Dur) 40 meq ONCE ORAL 08/25/19 09:40 08/25/19 12:00 Assessment/Plan Assessment/Plan IMPRESSION: Multiple abscesses s/p aspiration, hyponatremia, hyperkalemia, acute renal failure, shortness of breath, dyspnea, leukocytosis, anemia, thrombocytosis. PLAN PICC - care oxygen as needed needs transfusion to keep HH >8; repeat cbc linezolid and levaquin IV ID to recommend on disposition hydrate as needed monitor HH pain control poor surgical candidate defer dc to ID and surgery impression, plan, and exam edited and reviewed in detail care discussed with Thanh Garcia MD August 25, 2019 10:17
--- NOTE | 2019-08-25 11:26 | Infectious Diseases Prog Note ---
Assessment/Plan Assessment/Plan antibiotics : linezolid A 1. lumbar abscess s/p drainage with MRSA 2. MRSA sepsis 3. left knee septic arthritis 4. paraplegia P 1. continue linezolid 36 more days 2. will follow up cultures Subjective Constitutional: Denies: fever, chills Respiratory: Denies: shortness of breath, dry cough Gastrointestinal/Abdominal: Reports: nausea; Denies: vomiting, diarrhea Musculoskeletal: Reports: pain - decreased Allergies: Coded Allergies: CEFTRIAXONE (Verified Allergy, Intermediate, SOB, HR-140bpm, face swollen , pt became red, 10/24/15) CODEINE (Verified Allergy, Intermediate, SWELLING, 01/03/11) LATEX (Verified Allergy, Intermediate, SWELLING, 01/03/11) PIPERACILLIN (Verified Allergy, Intermediate, Itching, 08/29/15) 08/29/15 tolerates Ceftaroline TAZOBACTAM (Verified Allergy, Intermediate, Itching, 01/29/15) POLYMYXIN B (Verified Allergy, Mild, Rash, 04/08/16) Suspected allergy reported by VANCOMYCIN (Verified Allergy, Mild, 07/15/14) ASPARAGINASE (Verified Allergy, Unknown, 01/28/14) CEFUROXIME (Unverified Allergy, Unknown, 04/19/16) IRON (Verified Allergy, Unknown, 01/28/14) LATEX, NATURAL RUBBER (Unverified Allergy, Unknown, 06/18/16) Objective Vital Signs Last 24 Hour Vital Signs Date Time Temp Pulse Resp B/P (MAP) Pulse Ox O2 Delivery O2 Flow Rate FiO2 08/25/19 09:00 Room Air 08/25/19 08:00 97.9 90 98/46 (63) 08/25/19 00:00 97.0 81 23 108/60 (76) 96 08/24/19 21:00 Room Air 08/24/19 20:00 98.8 100 18 106/53 (70) 95 08/24/19 12:00 98.1 102 18 102/52 (69) 98 Height (Feet): 5 Height (Inches): 5.00 Weight (Pounds): 219 Respiratory/Chest: lungs clear Cardiovascular: normal rate, regular rhythm, no gallop/murmur Abdomen: soft, non tender Extremities: no edema Musculoskeletal: other - back with drains bilaterally with pus Microbiology Date/Time Source Procedure Growth Status 08/24/19 14:15 Wound Gram Stain - Final Resulted 08/24/19 14:15 Wound Wound Culture Pending Resulted Laboratory Tests Test 08/25/19 05:10 08/25/19 11:15 Sodium Level 135 MMOL/L (136-145) L Potassium Level 3.5 MMOL/L (3.5-5.1) Chloride Level 102 MMOL/L (98-107) Carbon Dioxide Level 24 MMOL/L (21-32) Anion Gap 9 mmol/L (5-15) Blood Urea Nitrogen 14 mg/dL (7-18) Creatinine 0.9 MG/DL (0.55-1.30) Estimat Glomerular Filtration Rate > 60 mL/min (>60) Glucose Level 175 MG/DL (74-106) H Calcium Level 7.8 MG/DL (8.5-10.1) L Phosphorus Level 3.8 MG/DL (2.5-4.9) Magnesium Level 1.5 MG/DL (1.8-2.4) L White Blood Count Pending Red Blood Count Pending Hemoglobin Pending Hematocrit Pending Mean Corpuscular Volume Pending Mean Corpuscular Hemoglobin Pending Mean Corpuscular Hemoglobin Concent Pending Red Cell Distribution Width Pending Platelet Count Pending Mean Platelet Volume Pending Neutrophils (%) (Auto) Pending Lymphocytes (%) (Auto) Pending Monocytes (%) (Auto) Pending Eosinophils (%) (Auto) Pending Basophils (%) (Auto) Pending Current Medications Medications (Trade) Dose Ordered Sig/Pineda Route PRN Reason Start Time Stop Time Status Last Admin Dose Admin Acetaminophen (Tylenol) 650 mg Q4H PRN ORAL Mild Pain (Pain Scale 1-3) 08/20/19 10:15 09/19/19 10:14 Al Hydroxide/Mg Hydroxide (Mylanta) 30 ml Q4H PRN ORAL INDIGESTION 08/20/19 10:15 09/19/19 10:14 Chlorhexidine Gluconate (Nereida-Hex 2%) 1 applic DAILY@2000 TOPIC 08/18/19 20:00 11/16/19 19:59 08/24/19 21:36 Dextrose (Dextrose 50%) 25 ml Q30M PRN IV Hypoglycemia 08/19/19 13:15 11/17/19 13:14 Dextrose (Dextrose 50%) 50 ml Q30M PRN IV Hypoglycemia 08/19/19 13:15 11/17/19 13:14 Diphenhydramine HCl (Benadryl) 25 mg Q6H PRN IVP Itching 08/21/19 10:30 09/20/19 10:29 08/25/19 05:28 Hydromorphone HCl (Dilaudid) 2 mg Q4H PRN IM Severe Pain (Pain Scale 7-10) 08/21/19 23:45 08/28/19 23:44 08/24/19 21:37 Hydromorphone HCl (Dilaudid) 2 mg Q4H PRN IVP Severe Pain (Pain Scale 7-10) 08/21/19 23:30 08/25/19 19:29 08/25/19 09:37 Insulin Aspart (NovoLOG) BEFORE MEALS AND HS SUBQ 08/19/19 16:30 11/17/19 16:29 Linezolid 300 ml @ 300 mls/hr Q12HR IVPB 08/21/19 21:00 08/28/19 20:59 08/25/19 09:00 Magnesium Oxide (Mag-Ox 400mg) 400 mg THREE TIMES A DAY ORAL 08/23/19 19:45 09/22/19 19:44 08/25/19 09:00 Ondansetron HCl (Zofran) 4 mg Q6H PRN IVP Nausea & Vomiting 08/20/19 10:15 09/19/19 10:14 08/24/19 21:37 Pantoprazole (Protonix) 40 mg DAILY ORAL 08/20/19 10:18 09/19/19 10:17 08/25/19 09:00 Potassium Chloride (K-Dur) 40 meq ONCE ORAL 08/25/19 09:40 08/25/19 12:00 08/25/19 09:40 Deng Reyes MD August 25, 2019 11:26
[2019-08-25 11:35] LABS: BASOPHILS % (AUTO) 0.5 % (0.0-2.0); EOSINOPHILS % (AUTO) 2.3 % (0.0-3.0); HEMATOCRIT 24.5 % (37.0-47.0); HEMOGLOBIN 8.2 G/DL (12.0-16.0); LYMPHOCYTES % (AUTO) 18.1 % (20.0-45.0); MEAN CORPUSCULAR VOLUME 82 FL (80-99); MONOCYTES % (AUTO) 4.5 % (1.0-10.0); NEUTROPHILS % (AUTO) 74.6 % (45.0-75.0); PLATELET COUNT 331 K/UL (150-450); RED BLOOD COUNT 2.98 M/UL (4.20-5.40); RED CELL DISTRIBUTION WIDTH 14.9 % (11.6-14.8); WHITE BLOOD COUNT 10.3 K/UL (4.8-10.8)
[2019-08-25 12:00] VITALS: BP 102/50
[2019-08-25 16:00] VITALS: BP 94/49
--- NOTE | 2019-08-25 19:33 | NUR ---
HAND-OFF: Report given to Pedrou RN.
--- NOTE | 2019-08-25 19:35 | NUR ---
NURSE NOTES: Patient a/a/o x 4, breathing unlabored on room air without distress. Verbalized constant pain that is managed with prescribed pain medication. Otherwise, patient denies discomfort. Double lumen PICC line noted on left upper arm with intact but soiled dressing. Asked permission from patient to change the dressing, but patient refused. Patient said due to her allergies, patient would like to keep the dressing and not "mess" with it at this time. Informed the risk of not changing the PICC line dressing in timely manner or as needed basis, but patient continues to refuse. Otherwise, PICC line is patent and flushed well without resistance. Patient on P200 mattress. Bed placed at the lowest with alarm, brake, and siderails up for safety. Call light placed within reach. Encouraged patient to use the call light. Will continue to monitor.
[2019-08-25 20:00] VITALS: BP 105/59
[2019-08-25] MEDS: Dyna-Hex 2% Top Sol 2oz TOPIC SCH (20:00)
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
--- NOTE | 2019-08-25 20:19 | NUR ---
NURSE NOTES: Patient refused CHG bath saying that patient received CHG bath during previous shift. Patient also refused blood sugar check saying patient is not diabetic and does not need her sugar to be checked. Attempted and explained risk and benefit x3. Patient continues to refuse. Cannot administer insulin without blood sugar check. Will continue to monitor.
--- NOTE | 2019-08-25 20:35 | NUR ---
NURSE NOTES: Informed patient about the blood glucose level according to her morning lab results. Patient repeated that she knows about her body and she does not need her blood sugar to be checked. will continue to monitor and provide care as ordered.
[2019-08-26] VITALS: BP 101/51
[2019-08-26 04:00] VITALS: BP 99/53
[2019-08-26] MEDS: NovoLOG Insulin Flexpen SUBQ SCH ×4 (06:08→20:14)
--- NOTE | 2019-08-26 06:30 | NUR ---
NURSE NOTES: patient refused incontinence care, dressing change, and colostomy emptying during the entire shift. Patient said she will coordinate and call the call light to get the care when she needs it.
--- NOTE | 2019-08-26 07:08 | NUR ---
HAND-OFF: Report given to ANISA Reno. Plan of care endorsed. Patient in stable condition. Informed that patient refused incontinence care, dressing change, and colostomy emptying during the public information director.
--- NOTE | 2019-08-26 07:20 | NUR ---
NURSE NOTES: Report received from Minsu RN. Patient seen on rounds asleep, not in distress, comfortable and tolerating room air. Nurse reports that patient has refused accuchecks, colostomy care, and PICC dressing change overnight. Patient is AxOx4. PICC line on CHRISTIN patent and intact. Colostomy bag on and draining well. Wound dressings intact. Noted left and right surgical drain collecting to Urasil bag. Bed low and locked, siderails up x2, zone alarm on 1, call light within reach and instructed to call nurse for assistance. Will continue to monitor and implement plan of care.
[2019-08-26 08:00] VITALS: BP 114/63
[2019-08-26] MEDS: DiphenhydrAMINE 50mg/ml Inj IVP PRN ×3 (08:38→20:04)
[2019-08-26] MEDS: Magnesium Oxide 400mg tab ORAL SCH ×3 (09:28→18:04)
--- NOTE | 2019-08-26 10:22 | General Progress Note ---
Assessment/Plan Problem List: (1) Pain ICD Codes: R52 - Pain, unspecified SNOMED: 41091265 (2) Osteomyelitis ICD Codes: M86.9 - Osteomyelitis, unspecified SNOMED: 14030389 (3) Abscess ICD Codes: L02.91 - Abscess SNOMED: 067998358 (4) Paraplegia ICD Codes: G82.20 - Paraplegia SNOMED: 78885699 (5) Asthma ICD Codes: J45.909 - Unspecified asthma, uncomplicated SNOMED: 592417403 (6) Anemia ICD Codes: D64.9 - Anemia, unspecified SNOMED: 490560147 (7) Acute renal failure ICD Codes: N17.9 - Acute kidney failure, unspecified SNOMED: 34194296 (8) right hip wound infecion/ulcer/osteo (9) Sepsis ICD Codes: A41.9 - Sepsis SNOMED: 71878608 (10) Cellulitis ICD Codes: L03.90 - Cellulitis, unspecified SNOMED: 228363613 (11) Abdominal pain ICD Codes: R10.9 - Unspecified abdominal pain SNOMED: 36766715 (12) Dehydration ICD Codes: E86.0 - Dehydration SNOMED: 43876779 Status: stable Assessment/Plan: cont iv abx per id follow up cultures cont drain/wound care per plastics monitor output benadryl for itching pain rx antiemetics ivf as needed dvt/stress ulcer prophylaxis Subjective ROS Limited/Unobtainable: No Constitutional: Reports: malaise, weakness HEENT: Reports: no symptoms Cardiovascular: Reports: no symptoms Respiratory: Reports: no symptoms Gastrointestinal/Abdominal: Reports: abdominal pain Genitourinary: Reports: no symptoms 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: Reports: numbness, paresthesia, pre-existing deficit, weakness Endocrine: Reports: no symptoms Hematologic/Lymphatic: Reports: anemia Allergies: Coded Allergies: CEFTRIAXONE (Verified Allergy, Intermediate, SOB, HR-140bpm, face swollen , pt became red, 10/24/15) CODEINE (Verified Allergy, Intermediate, SWELLING, 01/03/11) LATEX (Verified Allergy, Intermediate, SWELLING, 01/03/11) PIPERACILLIN (Verified Allergy, Intermediate, Itching, 08/29/15) 08/29/15 tolerates Ceftaroline TAZOBACTAM (Verified Allergy, Intermediate, Itching, 01/29/15) POLYMYXIN B (Verified Allergy, Mild, Rash, 04/08/16) Suspected allergy reported by VANCOMYCIN (Verified Allergy, Mild, 07/15/14) ASPARAGINASE (Verified Allergy, Unknown, 01/28/14) CEFUROXIME (Unverified Allergy, Unknown, 04/19/16) IRON (Verified Allergy, Unknown, 01/28/14) LATEX, NATURAL RUBBER (Unverified Allergy, Unknown, 06/18/16) All Systems: reviewed and negative except above Subjective no events. stable. pain controlled. no labs.getting wound care.no fever or chills. +colostomy and drain. Objective Last 24 Hour Vital Signs Date Time Temp Pulse Resp B/P (MAP) Pulse Ox O2 Delivery O2 Flow Rate FiO2 08/26/19 09:00 Room Air 08/26/19 08:00 98.2 93 18 114/63 (80) 92 08/26/19 04:00 99.1 94 18 99/53 (68) 95 08/26/19 00:00 99.0 99 18 101/51 (68) 95 08/25/19 21:00 Room Air 08/25/19 20:00 99.0 101 18 105/59 (74) 96 08/25/19 16:00 97.0 100 18 94/49 (64) 99 08/25/19 12:00 97.5 99 18 102/50 (67) 97 Intake and Output 08/25/19 08/26/19 19:00 07:00 Intake Total 900 ml 300 ml Output Total 190 ml 300 ml Balance 710 ml 0 ml Intake Oral 400 ml IV Total 500 ml 300 ml Other 190 ml 300 ml # Voids 1 Laboratory Tests 08/25/19 11:15: White Blood Count 10.3, Red Blood Count 2.98L, Hemoglobin 8.2L, Hematocrit 24.5L , Mean Corpuscular Volume 82, Mean Corpuscular Hemoglobin 27.5, Mean Corpuscular Hemoglobin Concent 33.4, Red Cell Distribution Width 14.9H, Platelet Count 331, Mean Platelet Volume 5.7L, Neutrophils (%) (Auto) 74.6, Lymphocytes (%) (Auto) 18.1L, Monocytes (%) (Auto) 4.5, Eosinophils (%) (Auto) 2.3, Basophils (%) (Auto) 0.5 Height (Feet): 5 Height (Inches): 5.00 Weight (Pounds): 219 General Appearance: overweight Objective General Appearance: WD/WN, alert EENT: normal ENT inspection Neck: non-tender, normal alignment, supple Cardiovascular: normal peripheral pulses, normal rate, regular rhythm Respiratory/Chest: chest wall non-tender, lungs clear, normal breath sounds, no respiratory distress Abdomen: normal bowel sounds, non tender, soft, no organomegaly Edema: no edema noted Arm (L), no edema noted Arm (R), no edema noted Leg (L), no edema noted Leg (R), no edema noted Pedal (L), no edema noted Pedal (R), no edema noted Generalized Neurologic: motor weakness, sensory deficit Skin: normal pigmentation Lymphatic: normal anterior cervical (L), normal anterior cervical (R) Jacques Chanel MD August 26, 2019 10:22
[2019-08-26 12:00] VITALS: BP 108/57
--- NOTE | 2019-08-26 14:28 | Pulmonology Progress Note ---
Subjective ROS Limited/Unobtainable: No Constitutional: Denies: fever, chills Gastrointestinal/Abdominal: Reports: nausea; Denies: vomiting, diarrhea Musculoskeletal: Reports: pain - decreased Allergies: Coded Allergies: CEFTRIAXONE (Verified Allergy, Intermediate, SOB, HR-140bpm, face swollen , pt became red, 10/24/15) CODEINE (Verified Allergy, Intermediate, SWELLING, 01/03/11) LATEX (Verified Allergy, Intermediate, SWELLING, 01/03/11) PIPERACILLIN (Verified Allergy, Intermediate, Itching, 08/29/15) 08/29/15 tolerates Ceftaroline TAZOBACTAM (Verified Allergy, Intermediate, Itching, 01/29/15) POLYMYXIN B (Verified Allergy, Mild, Rash, 04/08/16) Suspected allergy reported by VANCOMYCIN (Verified Allergy, Mild, 07/15/14) ASPARAGINASE (Verified Allergy, Unknown, 01/28/14) CEFUROXIME (Unverified Allergy, Unknown, 04/19/16) IRON (Verified Allergy, Unknown, 01/28/14) LATEX, NATURAL RUBBER (Unverified Allergy, Unknown, 06/18/16) All Systems: reviewed and negative except above Subjective +pain poor surgical candidate s/p aspiration by surgery no fevers agrees to plan Objective Last 24 Hour Vital Signs Date Time Temp Pulse Resp B/P (MAP) Pulse Ox O2 Delivery O2 Flow Rate FiO2 08/26/19 12:00 97.9 92 18 108/57 (74) 100 08/26/19 09:00 Room Air 08/26/19 08:00 98.2 93 18 114/63 (80) 92 08/26/19 04:00 99.1 94 18 99/53 (68) 95 08/26/19 00:00 99.0 99 18 101/51 (68) 95 08/25/19 21:00 Room Air 08/25/19 20:00 99.0 101 18 105/59 (74) 96 08/25/19 16:00 97.0 100 18 94/49 (64) 99 Intake and Output 08/25/19 08/26/19 19:00 07:00 Intake Total 900 ml 300 ml Output Total 190 ml 300 ml Balance 710 ml 0 ml Intake Oral 400 ml IV Total 500 ml 300 ml Other 190 ml 300 ml # Voids 1 Objective GENERAL: Patient is an ill-appearing female. in pain HEENT: Negative. NECK: Supple. LUNGS: Good air entry. CARDIAC: S1, S2. Regular rate and rhythm. ABDOMEN: Soft, nontender. EXTREMITIES: With significant atrophy. Microbiology Date/Time Source Procedure Growth Status 08/24/19 14:15 Wound Gram Stain - Final Resulted 08/24/19 14:15 Wound Culture - Preliminary Staphylococcus Aureus Resulted Current Medications Medications (Trade) Dose Ordered Sig/Pineda Route PRN Reason Start Time Stop Time Status Last Admin Dose Admin Acetaminophen (Tylenol) 650 mg Q4H PRN ORAL Mild Pain (Pain Scale 1-3) 08/20/19 10:15 09/19/19 10:14 Al Hydroxide/Mg Hydroxide (Mylanta) 30 ml Q4H PRN ORAL INDIGESTION 08/20/19 10:15 09/19/19 10:14 Chlorhexidine Gluconate (Nereida-Hex 2%) 1 applic DAILY@2000 TOPIC 08/18/19 20:00 11/16/19 19:59 08/24/19 21:36 Dextrose (Dextrose 50%) 25 ml Q30M PRN IV Hypoglycemia 08/19/19 13:15 11/17/19 13:14 Dextrose (Dextrose 50%) 50 ml Q30M PRN IV Hypoglycemia 08/19/19 13:15 11/17/19 13:14 Diphenhydramine HCl (Benadryl) 25 mg Q6H PRN IVP Itching 08/21/19 10:30 09/20/19 10:29 08/26/19 14:06 Hydromorphone HCl (Dilaudid) 2 mg Q4H PRN IM Severe Pain (Pain Scale 7-10) 08/21/19 23:45 08/28/19 23:44 08/26/19 14:05 Insulin Aspart (NovoLOG) BEFORE MEALS AND HS SUBQ 08/19/19 16:30 11/17/19 16:29 Linezolid 300 ml @ 300 mls/hr Q12HR IVPB 08/21/19 21:00 08/28/19 20:59 08/26/19 08:36 Magnesium Oxide (Mag-Ox 400mg) 400 mg THREE TIMES A DAY ORAL 08/23/19 19:45 09/22/19 19:44 08/26/19 14:04 Ondansetron HCl (Zofran) 4 mg Q6H PRN IVP Nausea & Vomiting 08/20/19 10:15 09/19/19 10:14 08/26/19 13:04 Pantoprazole (Protonix) 40 mg DAILY ORAL 08/20/19 10:18 09/19/19 10:17 08/26/19 09:28 Assessment/Plan Assessment/Plan IMPRESSION: Multiple abscesses s/p aspiration, hyponatremia, hyperkalemia, acute renal failure, shortness of breath, dyspnea, leukocytosis, anemia, thrombocytosis. PLAN PICC - care oxygen as needed iron therapy linezolid IV pain control poor surgical candidate dc planning with home HH and IV impression, plan, and exam edited and reviewed in detail care discussed with Thanh Garcia MD August 26, 2019 14:28
--- NOTE | 2019-08-26 14:37 | Infectious Diseases Prog Note ---
Assessment/Plan Assessment/Plan A 1. lumbar abscess s/p drainage with staph aureus bilaterally 2. MRSA sepsis 3. left knee septic arthritis 4. paraplegia P 1. continue linezolid X 35 days 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 Respiratory: Reports: no symptoms Cardiovascular: Reports: no symptoms Gastrointestinal/Abdominal: Reports: no symptoms Musculoskeletal: Reports: pain, other - mild back pain Allergies: Coded Allergies: CEFTRIAXONE (Verified Allergy, Intermediate, SOB, HR-140bpm, face swollen , pt became red, 10/24/15) CODEINE (Verified Allergy, Intermediate, SWELLING, 01/03/11) LATEX (Verified Allergy, Intermediate, SWELLING, 01/03/11) PIPERACILLIN (Verified Allergy, Intermediate, Itching, 08/29/15) 08/29/15 tolerates Ceftaroline TAZOBACTAM (Verified Allergy, Intermediate, Itching, 01/29/15) POLYMYXIN B (Verified Allergy, Mild, Rash, 04/08/16) Suspected allergy reported by VANCOMYCIN (Verified Allergy, Mild, 07/15/14) ASPARAGINASE (Verified Allergy, Unknown, 01/28/14) CEFUROXIME (Unverified Allergy, Unknown, 04/19/16) IRON (Verified Allergy, Unknown, 01/28/14) LATEX, NATURAL RUBBER (Unverified Allergy, Unknown, 06/18/16) Objective Vital Signs Last 24 Hour Vital Signs Date Time Temp Pulse Resp B/P (MAP) Pulse Ox O2 Delivery O2 Flow Rate FiO2 08/26/19 12:00 97.9 92 18 108/57 (74) 100 08/26/19 09:00 Room Air 08/26/19 08:00 98.2 93 18 114/63 (80) 92 08/26/19 04:00 99.1 94 18 99/53 (68) 95 08/26/19 00:00 99.0 99 18 101/51 (68) 95 08/25/19 21:00 Room Air 08/25/19 20:00 99.0 101 18 105/59 (74) 96 08/25/19 16:00 97.0 100 18 94/49 (64) 99 Height (Feet): 5 Height (Inches): 5.00 Weight (Pounds): 219 General Appearance: no acute distress HEENT: mucous membranes moist Respiratory/Chest: lungs clear Cardiovascular: normal rate, other - PICC line Abdomen: soft, non tender 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: alert, responsive, other - Paraplegic Musculoskeletal: other - bilteral back drains Microbiology Date/Time Source Procedure Growth Status 08/24/19 14:15 Wound Gram Stain - Final Resulted 08/24/19 14:15 Wound Culture - Preliminary Staphylococcus Aureus Resulted Current Medications Medications (Trade) Dose Ordered Sig/Pineda Route PRN Reason Start Time Stop Time Status Last Admin Dose Admin Acetaminophen (Tylenol) 650 mg Q4H PRN ORAL Mild Pain (Pain Scale 1-3) 08/20/19 10:15 09/19/19 10:14 Al Hydroxide/Mg Hydroxide (Mylanta) 30 ml Q4H PRN ORAL INDIGESTION 08/20/19 10:15 09/19/19 10:14 Chlorhexidine Gluconate (Nereida-Hex 2%) 1 applic DAILY@2000 TOPIC 08/18/19 20:00 11/16/19 19:59 08/24/19 21:36 Dextrose (Dextrose 50%) 25 ml Q30M PRN IV Hypoglycemia 08/19/19 13:15 11/17/19 13:14 Dextrose (Dextrose 50%) 50 ml Q30M PRN IV Hypoglycemia 08/19/19 13:15 11/17/19 13:14 Diphenhydramine HCl (Benadryl) 25 mg Q6H PRN IVP Itching 08/21/19 10:30 09/20/19 10:29 08/26/19 14:06 Hydromorphone HCl (Dilaudid) 2 mg Q4H PRN IM Severe Pain (Pain Scale 7-10) 08/21/19 23:45 08/28/19 23:44 08/26/19 14:05 Insulin Aspart (NovoLOG) BEFORE MEALS AND HS SUBQ 08/19/19 16:30 11/17/19 16:29 Linezolid 300 ml @ 300 mls/hr Q12HR IVPB 08/21/19 21:00 08/28/19 20:59 08/26/19 08:36 Magnesium Oxide (Mag-Ox 400mg) 400 mg THREE TIMES A DAY ORAL 08/23/19 19:45 09/22/19 19:44 08/26/19 14:04 Ondansetron HCl (Zofran) 4 mg Q6H PRN IVP Nausea & Vomiting 08/20/19 10:15 09/19/19 10:14 08/26/19 13:04 Pantoprazole (Protonix) 40 mg DAILY ORAL 08/20/19 10:18 09/19/19 10:17 08/26/19 09:28 Vaughn Juárez MD August 26, 2019 14:37
[2019-08-26] MEDS ORDERED: Tubing IV Secondary IV ONE (15:59)
[2019-08-26 16:00] VITALS: BP 117/66
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
--- NOTE | 2019-08-26 19:26 | NUR ---
HAND-OFF: Report given to Urmila LANGE.
--- NOTE | 2019-08-26 19:30 | NUR ---
NURSE NOTES: Patient in bed, alert and oriented x4, on room air, no SOB noted. With colostomy bag intact. With PICC line on left upper arm, double lumen cath. Back has 2 pigtails connected to Uresil bag. Instructed to use call light for assistance. Bed in lowest, lock engaged and alarm on. Will continue to monitor.
[2019-08-26 20:00] VITALS: BP 106/61
[2019-08-26] MEDS: Dyna-Hex 2% Top Sol 2oz TOPIC SCH (20:04)
[2019-08-27] VITALS: BP 114/52
[2019-08-27] MEDS: DiphenhydrAMINE 50mg/ml Inj IVP PRN ×4 (01:59→23:51)
[2019-08-27] MEDS: NovoLOG Insulin Flexpen SUBQ SCH ×4 (05:33→20:19)
--- NOTE | 2019-08-27 06:23 | NUR ---
NURSE NOTES: Patient refused to be change at this time.
--- NOTE | 2019-08-27 07:02 | NUR ---
HAND-OFF: Report given to ANISA Reno.
--- NOTE | 2019-08-27 07:21 | NUR ---
NURSE NOTES: Report received from Urmila LANGE. Patient seen on rounds, AxOx4, not in distress, comfortable and tolerating room air. Nurse reports that patient has refused accuchecks, colostomy care, and wound dressing change overnight. PICC line on CHRISTIN patent and intact. Colostomy bag on and draining well. Wound dressings intact. Noted left and right surgical pigtail drain collecting to Urasil bag. Bed low and locked, siderails up x2, zone alarm on 1, call light within reach and instructed to call nurse for assistance. Will continue to monitor and implement plan of care.
[2019-08-27 07:24] LABS: ANION GAP 9 mmol/L (5-15); BLOOD UREA NITROGEN 11 mg/dL (7-18); CALCIUM 7.6 MG/DL (8.5-10.1); CARBON DIOXIDE 25 MMOL/L (21-32); CHLORIDE 103 MMOL/L (98-107); POTASSIUM 3.9 MMOL/L (3.5-5.1); SODIUM 137 MMOL/L (136-145)
[2019-08-27 08:00] VITALS: BP 106/52
[2019-08-27] MEDS: Magnesium Oxide 400mg tab ORAL SCH ×3 (08:23→17:51)
--- NOTE | 2019-08-27 09:43 | General Progress Note ---
Assessment/Plan Problem List: (1) Pain ICD Codes: R52 - Pain, unspecified SNOMED: 66956101 (2) Osteomyelitis ICD Codes: M86.9 - Osteomyelitis, unspecified SNOMED: 31316046 (3) Abscess ICD Codes: L02.91 - Abscess SNOMED: 450944093 (4) Paraplegia ICD Codes: G82.20 - Paraplegia SNOMED: 01915569 (5) Asthma ICD Codes: J45.909 - Unspecified asthma, uncomplicated SNOMED: 197452067 (6) Anemia ICD Codes: D64.9 - Anemia, unspecified SNOMED: 419111087 (7) Acute renal failure ICD Codes: N17.9 - Acute kidney failure, unspecified SNOMED: 79112420 (8) right hip wound infecion/ulcer/osteo (9) Sepsis ICD Codes: A41.9 - Sepsis SNOMED: 90660099 (10) Cellulitis ICD Codes: L03.90 - Cellulitis, unspecified SNOMED: 709004314 (11) Abdominal pain ICD Codes: R10.9 - Unspecified abdominal pain SNOMED: 81441891 (12) Dehydration ICD Codes: E86.0 - Dehydration SNOMED: 46363729 Status: stable Assessment/Plan: cont iv abx per id follow up cultures cont drain/wound care per plastics monitor output benadryl for itching pain rx antiemetics ivf as needed dvt/stress ulcer prophylaxis Subjective Constitutional: Reports: malaise, weakness HEENT: Reports: no symptoms Cardiovascular: Reports: no symptoms Respiratory: Reports: no symptoms Gastrointestinal/Abdominal: Reports: no symptoms Genitourinary: Reports: no symptoms 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: Reports: paresthesia, pre-existing deficit, tingling, weakness Endocrine: Reports: no symptoms Hematologic/Lymphatic: Reports: anemia Allergies: Coded Allergies: CEFTRIAXONE (Verified Allergy, Intermediate, SOB, HR-140bpm, face swollen , pt became red, 10/24/15) CODEINE (Verified Allergy, Intermediate, SWELLING, 01/03/11) LATEX (Verified Allergy, Intermediate, SWELLING, 01/03/11) PIPERACILLIN (Verified Allergy, Intermediate, Itching, 08/29/15) 08/29/15 tolerates Ceftaroline TAZOBACTAM (Verified Allergy, Intermediate, Itching, 01/29/15) POLYMYXIN B (Verified Allergy, Mild, Rash, 04/08/16) Suspected allergy reported by VANCOMYCIN (Verified Allergy, Mild, 07/15/14) ASPARAGINASE (Verified Allergy, Unknown, 01/28/14) CEFUROXIME (Unverified Allergy, Unknown, 04/19/16) IRON (Verified Allergy, Unknown, 01/28/14) LATEX, NATURAL RUBBER (Unverified Allergy, Unknown, 06/18/16) All Systems: reviewed and negative except above Subjective no events. stable. pain controlled. no labs.getting wound care.no fever or chills. +colostomy and drain. Objective Last 24 Hour Vital Signs Date Time Temp Pulse Resp B/P (MAP) Pulse Ox O2 Delivery O2 Flow Rate FiO2 08/27/19 00:00 99.6 97 18 114/52 (72) 97 08/26/19 21:00 Room Air 08/26/19 20:00 98.2 98 18 106/61 (76) 95 08/26/19 16:00 97.0 101 19 117/66 (83) 100 08/26/19 12:00 97.9 92 18 108/57 (74) 100 Intake and Output 08/26/19 08/27/19 19:00 07:00 Intake Total 536 ml 400 ml Output Total 175 ml Balance 536 ml 225 ml Intake Oral 536 ml 100 ml IV Total 300 ml Other 175 ml # Voids 1 Laboratory Tests 08/27/19 05:00: Sodium Level 137, Potassium Level 3.9, Chloride Level 103, Carbon Dioxide Level 25, Anion Gap 9, Blood Urea Nitrogen 11, Creatinine 1.0, Estimat Glomerular Filtration Rate > 60, Glucose Level 145H, Calcium Level 7.6L, Magnesium Level 1.4L Height (Feet): 5 Height (Inches): 5.00 Weight (Pounds): 219 Objective General Appearance: WD/WN, alert EENT: normal ENT inspection Neck: non-tender, normal alignment, supple Cardiovascular: normal peripheral pulses, normal rate, regular rhythm Respiratory/Chest: chest wall non-tender, lungs clear, normal breath sounds, no respiratory distress Abdomen: normal bowel sounds, non tender, soft, no organomegaly Edema: no edema noted Arm (L), no edema noted Arm (R), no edema noted Leg (L), no edema noted Leg (R), no edema noted Pedal (L), no edema noted Pedal (R), no edema noted Generalized Neurologic: motor weakness, sensory deficit Skin: normal pigmentation Lymphatic: normal anterior cervical (L), normal anterior cervical (R) Jacques Chanel MD August 27, 2019 09:43
--- NOTE | 2019-08-27 10:55 | Pulmonology Progress Note ---
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 Gastrointestinal/Abdominal: Reports: no symptoms Musculoskeletal: Reports: pain, other - mild back pain Allergies: Coded Allergies: CEFTRIAXONE (Verified Allergy, Intermediate, SOB, HR-140bpm, face swollen , pt became red, 10/24/15) CODEINE (Verified Allergy, Intermediate, SWELLING, 01/03/11) LATEX (Verified Allergy, Intermediate, SWELLING, 01/03/11) PIPERACILLIN (Verified Allergy, Intermediate, Itching, 08/29/15) 08/29/15 tolerates Ceftaroline TAZOBACTAM (Verified Allergy, Intermediate, Itching, 01/29/15) POLYMYXIN B (Verified Allergy, Mild, Rash, 04/08/16) Suspected allergy reported by VANCOMYCIN (Verified Allergy, Mild, 07/15/14) ASPARAGINASE (Verified Allergy, Unknown, 01/28/14) CEFUROXIME (Unverified Allergy, Unknown, 04/19/16) IRON (Verified Allergy, Unknown, 01/28/14) LATEX, NATURAL RUBBER (Unverified Allergy, Unknown, 06/18/16) All Systems: reviewed and negative except above Subjective +pain BETTER poor surgical candidate s/p aspiration by surgery no fevers noted and labs better agrees to plan Objective Last 24 Hour Vital Signs Date Time Temp Pulse Resp B/P (MAP) Pulse Ox O2 Delivery O2 Flow Rate FiO2 08/27/19 09:00 Room Air 08/27/19 08:00 98.2 98 18 106/52 (70) 100 08/27/19 00:00 99.6 97 18 114/52 (72) 97 08/26/19 21:00 Room Air 08/26/19 20:00 98.2 98 18 106/61 (76) 95 08/26/19 16:00 97.0 101 19 117/66 (83) 100 08/26/19 12:00 97.9 92 18 108/57 (74) 100 Intake and Output 08/26/19 08/27/19 19:00 07:00 Intake Total 536 ml 400 ml Output Total 175 ml Balance 536 ml 225 ml Intake Oral 536 ml 100 ml IV Total 300 ml Other 175 ml # Voids 1 Objective GENERAL: Patient is an ill-appearing female. in pain HEENT: Negative. NECK: Supple. LUNGS: Good air entry. CARDIAC: S1, S2. Regular rate and rhythm. ABDOMEN: Soft, nontender. EXTREMITIES: With significant atrophy. Microbiology Date/Time Source Procedure Growth Status 08/24/19 14:15 Wound Gram Stain - Final Resulted 08/24/19 14:15 Wound Culture - Preliminary Staphylococcus Aureus - Mrsa Pseudomonas Aeruginosa - Mdr Resulted Laboratory Tests 08/27/19 05:00: Sodium Level 137, Potassium Level 3.9, Chloride Level 103, Carbon Dioxide Level 25, Anion Gap 9, Blood Urea Nitrogen 11, Creatinine 1.0, Estimat Glomerular Filtration Rate > 60, Glucose Level 145H, Calcium Level 7.6L, Magnesium Level 1.4L Current Medications Medications (Trade) Dose Ordered Sig/Pineda Route PRN Reason Start Time Stop Time Status Last Admin Dose Admin Acetaminophen (Tylenol) 650 mg Q4H PRN ORAL Mild Pain (Pain Scale 1-3) 08/20/19 10:15 09/19/19 10:14 Al Hydroxide/Mg Hydroxide (Mylanta) 30 ml Q4H PRN ORAL INDIGESTION 08/20/19 10:15 09/19/19 10:14 Chlorhexidine Gluconate (Nereida-Hex 2%) 1 applic DAILY@2000 TOPIC 08/18/19 20:00 11/16/19 19:59 08/26/19 20:04 Dextrose (Dextrose 50%) 25 ml Q30M PRN IV Hypoglycemia 08/19/19 13:15 11/17/19 13:14 Dextrose (Dextrose 50%) 50 ml Q30M PRN IV Hypoglycemia 08/19/19 13:15 11/17/19 13:14 Diphenhydramine HCl (Benadryl) 25 mg Q6H PRN IVP Itching 08/21/19 10:30 09/20/19 10:29 08/27/19 08:23 Hydromorphone HCl (Dilaudid) 2 mg Q4H PRN IM Severe Pain (Pain Scale 7-10) 08/21/19 23:45 08/28/19 23:44 08/27/19 10:39 Insulin Aspart (NovoLOG) BEFORE MEALS AND HS SUBQ 08/19/19 16:30 11/17/19 16:29 Linezolid 300 ml @ 300 mls/hr Q12HR IVPB 08/21/19 21:00 08/28/19 20:59 08/27/19 08:24 Magnesium Oxide (Mag-Ox 400mg) 400 mg THREE TIMES A DAY ORAL 08/23/19 19:45 09/22/19 19:44 08/27/19 08:23 Ondansetron HCl (Zofran) 4 mg Q6H PRN IVP Nausea & Vomiting 08/20/19 10:15 09/19/19 10:14 08/26/19 13:04 Pantoprazole (Protonix) 40 mg DAILY ORAL 08/20/19 10:18 09/19/19 10:17 08/27/19 08:23 Assessment/Plan Assessment/Plan IMPRESSION: Multiple abscesses s/p aspiration, hyponatremia, hyperkalemia, acute renal failure, shortness of breath, dyspnea, leukocytosis, anemia, thrombocytosis. PLAN PICC - care oxygen not needed linezolid IV pain control poor surgical candidate dc planning with home HH and IV if able impression, plan, and exam edited and reviewed in detail care discussed with Thanh Garcia MD August 27, 2019 10:55
--- NOTE | 2019-08-27 11:32 | NUR ---
NURSE NOTES: Patient refused accucheck. Explained risks and benefits x3, pt still refused and verbalized understanding. Unable to administer insulin without blood sugars.
--- NOTE | 2019-08-27 11:33 | Infectious Diseases Prog Note ---
"Assessment/Plan Assessment/Plan antibiotics : linezolid A 1. lumbar abscess s/p drainage with MRSA | pseudomonas 2. MRSA sepsis 3. left knee septic arthritis 4. paraplegia P 1. continue linezolid 34 more days 2. start cefepime 3. will follow up cultures Subjective Constitutional: Denies: fever, chills Respiratory: Denies: shortness of breath, dry cough Gastrointestinal/Abdominal: Reports: nausea; Denies: vomiting, diarrhea Musculoskeletal: Reports: pain - decreased Allergies: Coded Allergies: CEFTRIAXONE (Verified Allergy, Intermediate, SOB, HR-140bpm, face swollen , pt became red, 10/24/15) CODEINE (Verified Allergy, Intermediate, SWELLING, 01/03/11) LATEX (Verified Allergy, Intermediate, SWELLING, 01/03/11) PIPERACILLIN (Verified Allergy, Intermediate, Itching, 08/29/15) 08/29/15 tolerates Ceftaroline TAZOBACTAM (Verified Allergy, Intermediate, Itching, 01/29/15) POLYMYXIN B (Verified Allergy, Mild, Rash, 04/08/16) Suspected allergy reported by MD VANCOMYCIN (Verified Allergy, Mild, 07/15/14) ASPARAGINASE (Verified Allergy, Unknown, 01/28/14) CEFUROXIME (Unverified Allergy, Unknown, 04/19/16) IRON (Verified Allergy, Unknown, 01/28/14) LATEX, NATURAL RUBBER (Unverified Allergy, Unknown, 06/18/16) Objective Vital Signs Last 24 Hour Vital Signs Date Time Temp Pulse Resp B/P (MAP) Pulse Ox O2 Delivery O2 Flow Rate FiO2 08/27/19 09:00 Room Air 08/27/19 08:00 98.2 98 18 106/52 (70) 100 08/27/19 00:00 99.6 97 18 114/52 (72) 97 08/26/19 21:00 Room Air 08/26/19 20:00 98.2 98 18 106/61 (76) 95 08/26/19 16:00 97.0 101 19 117/66 (83) 100 08/26/19 12:00 97.9 92 18 108/57 (74) 100 Height (Feet): 5 Height (Inches): 5.00 Weight (Pounds): 219 Respiratory/Chest: lungs clear Cardiovascular: normal rate, regular rhythm, no gallop/murmur Abdomen: soft, non tender, other - back with drains bilaterally Extremities: no edema, other - left arm PICC Microbiology Date/Time Source Procedure Growth Status 08/24/19 14:15 Wound Gram Stain - Final Resulted 08/24/19 14:15 Wound Culture - Preliminary Staphylococcus Aureus - Mrsa Pseudomonas Aeruginosa - Mdr Resulted Laboratory Tests Test 08/27/19 05:00 Sodium Level 137 MMOL/L (136-145) Potassium Level 3.9 MMOL/L (3.5-5.1) Chloride Level 103 MMOL/L (98-107) Carbon Dioxide Level 25 MMOL/L (21-32) Anion Gap 9 mmol/L (5-15) Blood Urea Nitrogen 11 mg/dL (7-18) Creatinine 1.0 MG/DL (0.55-1.30) Estimat Glomerular Filtration Rate > 60 mL/min (>60) Glucose Level 145 MG/DL (74-106) H Calcium Level 7.6 MG/DL (8.5-10.1) L Magnesium Level 1.4 MG/DL (1.8-2.4) L Current Medications Medications (Trade) Dose Ordered Sig/Pineda Route PRN Reason Start Time Stop Time Status Last Admin Dose Admin Acetaminophen (Tylenol) 650 mg Q4H PRN ORAL Mild Pain (Pain Scale 1-3) 08/20/19 10:15 09/19/19 10:14 Al Hydroxide/Mg Hydroxide (Mylanta) 30 ml Q4H PRN ORAL INDIGESTION 08/20/19 10:15 09/19/19 10:14 Chlorhexidine Gluconate (Nereida-Hex 2%) 1 applic DAILY@2000 TOPIC 08/18/19 20:00 11/16/19 19:59 08/26/19 20:04 Dextrose (Dextrose 50%) 25 ml Q30M PRN IV Hypoglycemia 08/19/19 13:15 11/17/19 13:14 Dextrose (Dextrose 50%) 50 ml Q30M PRN IV Hypoglycemia 08/19/19 13:15 11/17/19 13:14 Diphenhydramine HCl (Benadryl) 25 mg Q6H PRN IVP Itching 08/21/19 10:30 09/20/19 10:29 08/27/19 08:23 Hydromorphone HCl (Dilaudid) 2 mg Q4H PRN IM Severe Pain (Pain Scale 7-10) 08/21/19 23:45 08/28/19 23:44 08/27/19 10:39 Insulin Aspart (NovoLOG) BEFORE MEALS AND HS SUBQ 08/19/19 16:30 11/17/19 16:29 Linezolid 300 ml @ 300 mls/hr Q12HR IVPB 08/21/19 21:00 08/28/19 20:59 08/27/19 08:24 Magnesium Oxide (Mag-Ox 400mg) 400 mg THREE TIMES A DAY ORAL 08/23/19 19:45 09/22/19 19:44 08/27/19 08:23 Ondansetron HCl (Zofran) 4 mg Q6H PRN IVP Nausea & Vomiting 08/20/19 10:15 09/19/19 10:14 08/26/19 13:04 Pantoprazole (Protonix) 40 mg DAILY ORAL 08/20/19 10:18 09/19/19 10:17 08/27/19 08:23 Deng Reyes MD August 27, 2019 11:33"
[2019-08-27] MEDS ORDERED: Cefepime HCl 2 GM in D5W 55 ML IVPB SCH (11:45)
[2019-08-27 12:00] VITALS: BP 108/56
--- NOTE | 2019-08-27 12:01 | NUR ---
NURSE NOTES: Received call from Yamil from pharmacy notifying me that patient was ordered Colistin which is in same antibiotic family as Polymyxin B, which pt had documented reaction to. Advised to monitor patient during administration for any adverse side effects or reactions.
--- NOTE | 2019-08-27 12:54 | General Progress Note ---
Assessment/Plan Status: stable, progressing Assessment/Plan: Patient showing improvement and is feeling better. Debrided left hip wound sharply to the level of muscle to remove slough. Continue packing of the left hip for another 7-10 days. If discharged, will plan to continue f/u in wound center. Once infection is under control, this wound will be a good candidate for wound vac dressing. All questions answered. Subjective Date patient seen: August 27, 2019 Time patient seen: 12:49 Allergies: Coded Allergies: CEFTRIAXONE (Verified Allergy, Intermediate, SOB, HR-140bpm, face swollen , pt became red, 10/24/15) CODEINE (Verified Allergy, Intermediate, SWELLING, 01/03/11) LATEX (Verified Allergy, Intermediate, SWELLING, 01/03/11) PIPERACILLIN (Verified Allergy, Intermediate, Itching, 08/29/15) 08/29/15 tolerates Ceftaroline TAZOBACTAM (Verified Allergy, Intermediate, Itching, 01/29/15) POLYMYXIN B (Verified Allergy, Mild, Rash, 04/08/16) Suspected allergy reported by MD VANCOMYCIN (Verified Allergy, Mild, 07/15/14) ASPARAGINASE (Verified Allergy, Unknown, 01/28/14) CEFUROXIME (Unverified Allergy, Unknown, 04/19/16) IRON (Verified Allergy, Unknown, 01/28/14) LATEX, NATURAL RUBBER (Unverified Allergy, Unknown, 06/18/16) Subjective F/u evaluation on patient well known to me. Underwent I&D of loculated left hip abscess and cultures + for MRSA and MDR Pseudomonas. No sxs of fevers or chills. Currently on linezolid per ID. WBC normal today at 10. Objective Last 24 Hour Vital Signs Date Time Temp Pulse Resp B/P (MAP) Pulse Ox O2 Delivery O2 Flow Rate FiO2 08/27/19 12:00 97.9 90 19 108/56 (73) 100 08/27/19 09:00 Room Air 08/27/19 08:00 98.2 98 18 106/52 (70) 100 08/27/19 00:00 99.6 97 18 114/52 (72) 97 08/26/19 21:00 Room Air 08/26/19 20:00 98.2 98 18 106/61 (76) 95 08/26/19 16:00 97.0 101 19 117/66 (83) 100 Intake and Output 08/26/19 08/27/19 19:00 07:00 Intake Total 536 ml 400 ml Output Total 175 ml Balance 536 ml 225 ml Intake Oral 536 ml 100 ml IV Total 300 ml Other 175 ml # Voids 1 Laboratory Tests 08/27/19 05:00: Sodium Level 137, Potassium Level 3.9, Chloride Level 103, Carbon Dioxide Level 25, Anion Gap 9, Blood Urea Nitrogen 11, Creatinine 1.0, Estimat Glomerular Filtration Rate > 60, Glucose Level 145H, Calcium Level 7.6L, Magnesium Level 1.4L Height (Feet): 5 Height (Inches): 5.00 Weight (Pounds): 219 Respiratory/Chest: no respiratory distress Skin: other - Left hip wound with no purulent drainage. Some slough at the base but less than before. No erythema or warmth. Keegan Cristobal MD August 27, 2019 12:54
[2019-08-27] MEDS: Colistin 150mg vial IVP SCH ×2 (13:44→20:19)
--- NOTE | 2019-08-27 14:14 | NUR ---
*-* DISCHARGE PLANNING *-* PATIENT HAS BEEN REFERRED TO: [facility] P: [phone] F: [phone] MARIA T RICHARDSON P; [phone] F; [phone]
[2019-08-27 16:00] VITALS: BP 102/61
--- NOTE | 2019-08-27 16:34 | NUR ---
DISCHARGE PLANNING FOLLOW UP WITH MARIA T RICHARDSON. S/W JOHN. CONFIRMED IV ABX COVERED UNDER PATIENTS INSURANCE AND THEY ARE ABLE TO START SERVICE UPON DISCHARGE. THIS CM WILL NOTIFY MARIA T RICHARDSON WITH DC DATE. DR MICHEL INFORMED IV ABX HAVE BEEN COORDINATED. INFORMED CM TO ANTICIPATE DC HOME TOMORROW 08/28/19
--- NOTE | 2019-08-27 16:36 | NUR ---
NURSE NOTES: TISH drain on patient back came out as patient was being cleaned. MD Glover notified. Stated to cover with gauze and leave other drain in/ RN made made aware.
--- NOTE | 2019-08-27 17:05 | NUR ---
NURSE NOTES: While cleaning patient and changing wound dressings, noted right surgical drain came off and dressings soaked. Charge nurse notified Dr. Glover and received orders to cover with gauze dressing. Also notified Dr. Glover that other surgical drain on left side still intact however leaking noted at puncture site and clear dressing soaked. Awaiting response.
--- NOTE | 2019-08-27 17:29 | NUR ---
CASE MANAGEMENT:REVIEW SI;LUMBAR MRSA ABCESS S/P DRAINAGE. LEFT KNEE SEPTIC ARTHRITIS. MRSA SEPSIS. 99.6 98 19 105/52 97% ON RA BG 145 CA 706 MG 1.4 IS;COLISTIN IV Q12 HRS MAG-OX PO TID LINEZOLID IV Q12 HRS PROTONIX PO QD MED SURG STATUS DCP;FROM HOME PATIENT TO DC HOME WITH [facility] CONTINUE IV ABX FOR 28 DAYS
--- NOTE | 2019-08-27 17:47 | NUR ---
NURSE NOTES: Charge nurse Karthik spoke with Dr. Belen whiteside drainage from surgical sites on spine. ordered to place colostomy bag over right surgical site and reinforce dressings with abdominal pad for now and he will see patient in AM.
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
[2019-08-27] MEDS: Dyna-Hex 2% Top Sol 2oz TOPIC SCH (19:42)
--- NOTE | 2019-08-27 19:59 | NUR ---
HAND-OFF: Report given to Leeann LANGE. Endorsed status of surgical drain and to reinforce dressing if soiled till Dr. Glover is able to see patient.
--- NOTE | 2019-08-27 20:00 | NUR ---
NURSE NOTES: received patient awake, alert, verbal, complained of generalized body pain, subsequently given prn medication for pain.
[2019-08-28 00:22] VITALS: BP 105/60
[2019-08-28 04:16] VITALS: BP 99/53
[2019-08-28] MEDS: NovoLOG Insulin Flexpen SUBQ SCH ×4 (06:02→21:00)
--- NOTE | 2019-08-28 07:24 | NUR ---
HAND-OFF: Report given to Linda Nath RN.
--- NOTE | 2019-08-28 07:25 | NUR ---
NURSE NOTES: Received patient in bed asleep. No SOB or acute distress. PICC line on CHRISTIN intact and patent. Wound dressings intact. HOB elevated. Bed locked in lowest position. Call light within reach. Will continue plan of care.
[2019-08-28 08:00] VITALS: BP 103/59
[2019-08-28] MEDS: Magnesium Oxide 400mg tab ORAL SCH ×3 (08:09→17:53)
[2019-08-28] MEDS: Colistin 150mg vial IVP SCH ×2 (08:09→20:47)
[2019-08-28] MEDS: DiphenhydrAMINE 50mg/ml Inj IVP PRN ×2 (08:10→16:42)
--- NOTE | 2019-08-28 08:21 | Pulmonology Progress Note ---
Subjective ROS Limited/Unobtainable: No Constitutional: Denies: fever, chills Gastrointestinal/Abdominal: Reports: nausea; Denies: vomiting, diarrhea Musculoskeletal: Reports: pain - decreased Allergies: Coded Allergies: CEFTRIAXONE (Verified Allergy, Intermediate, SOB, HR-140bpm, face swollen , pt became red, 10/24/15) CODEINE (Verified Allergy, Intermediate, SWELLING, 01/03/11) LATEX (Verified Allergy, Intermediate, SWELLING, 01/03/11) PIPERACILLIN (Verified Allergy, Intermediate, Itching, 08/29/15) 08/29/15 tolerates Ceftaroline TAZOBACTAM (Verified Allergy, Intermediate, Itching, 01/29/15) POLYMYXIN B (Verified Allergy, Mild, Rash, 04/08/16) Suspected allergy reported by VANCOMYCIN (Verified Allergy, Mild, 07/15/14) ASPARAGINASE (Verified Allergy, Unknown, 01/28/14) CEFUROXIME (Unverified Allergy, Unknown, 04/19/16) IRON (Verified Allergy, Unknown, 01/28/14) LATEX, NATURAL RUBBER (Unverified Allergy, Unknown, 06/18/16) All Systems: reviewed and negative except above Subjective +pain drain fell out with some drainage no fevers noted and labs better agrees to plan Objective Last 24 Hour Vital Signs Date Time Temp Pulse Resp B/P (MAP) Pulse Ox O2 Delivery O2 Flow Rate FiO2 08/28/19 04:39 98.4 08/28/19 04:16 98.4 102 22 99/53 (68) 99 08/28/19 00:22 99.1 104 20 105/60 (75) 95 08/27/19 21:42 Room Air 08/27/19 16:00 98.0 101 19 102/61 (75) 100 08/27/19 12:00 97.9 90 19 108/56 (73) 100 08/27/19 09:00 Room Air Intake and Output 08/27/19 08/28/19 19:00 07:00 Intake Total 300 ml 960 ml Balance 300 ml 960 ml Intake Oral 300 ml IV Total 600 ml Other 360 ml # Voids 1 Objective GENERAL: Patient is an ill-appearing female. in pain HEENT: Negative. NECK: Supple. LUNGS: Good air entry. CARDIAC: S1, S2. Regular rate and rhythm. ABDOMEN: Soft, nontender. EXTREMITIES: With significant atrophy. Current Medications Medications (Trade) Dose Ordered Sig/Pineda Route PRN Reason Start Time Stop Time Status Last Admin Dose Admin Acetaminophen (Tylenol) 650 mg Q4H PRN ORAL Mild Pain (Pain Scale 1-3) 08/20/19 10:15 09/19/19 10:14 Al Hydroxide/Mg Hydroxide (Mylanta) 30 ml Q4H PRN ORAL INDIGESTION 08/20/19 10:15 09/19/19 10:14 Chlorhexidine Gluconate (Nereida-Hex 2%) 1 applic DAILY@2000 TOPIC 08/18/19 20:00 11/16/19 19:59 08/27/19 19:42 Colistimethate Sodium (Colistin) 150 mg EVERY 12 HOURS IVP 08/27/19 13:00 09/03/19 12:59 08/28/19 08:09 Dextrose (Dextrose 50%) 25 ml Q30M PRN IV Hypoglycemia 08/19/19 13:15 11/17/19 13:14 Dextrose (Dextrose 50%) 50 ml Q30M PRN IV Hypoglycemia 08/19/19 13:15 11/17/19 13:14 Diphenhydramine HCl (Benadryl) 25 mg Q6H PRN IVP Itching 08/21/19 10:30 09/20/19 10:29 08/28/19 08:10 Hydromorphone HCl (Dilaudid) 2 mg Q4H PRN IM Severe Pain (Pain Scale 7-10) 08/21/19 23:45 08/28/19 23:44 08/28/19 08:12 Insulin Aspart (NovoLOG) BEFORE MEALS AND HS SUBQ 08/19/19 16:30 11/17/19 16:29 Linezolid 300 ml @ 300 mls/hr Q12HR IVPB 08/21/19 21:00 09/30/19 23:59 08/28/19 08:09 Magnesium Oxide (Mag-Ox 400mg) 400 mg THREE TIMES A DAY ORAL 08/23/19 19:45 09/22/19 19:44 08/28/19 08:09 Ondansetron HCl (Zofran) 4 mg Q6H PRN IVP Nausea & Vomiting 08/20/19 10:15 09/19/19 10:14 08/27/19 13:44 Pantoprazole (Protonix) 40 mg DAILY ORAL 08/20/19 10:18 09/19/19 10:17 08/28/19 08:09 Assessment/Plan Assessment/Plan IMPRESSION: Multiple abscesses s/p aspiration, hyponatremia, hyperkalemia, acute renal failure, shortness of breath, dyspnea, leukocytosis, anemia, thrombocytosis. PLAN PICC - care linezolid IV pain control poor surgical candidate dc planning with home HH and IV if able today and wound cleared by surgery impression, plan, and exam edited and reviewed in detail care discussed with Thanh Garcia MD August 28, 2019 08:21
--- NOTE | 2019-08-28 09:35 | NUR ---
NURSE NOTES: For CT guided drain placement catheter as ordered, to secure consent.
[2019-08-28] MEDS ORDERED: Lidocaine 1% Plain 30 ml INJ SCH (09:45)
--- NOTE | 2019-08-28 11:05 | NUR ---
NURSE NOTES: Patient refused accucheck, explained risks, verbalized understanding. Consent for procedure secured, placed in chart.
--- NOTE | 2019-08-28 11:42 | Infectious Diseases Prog Note ---
"Assessment/Plan Assessment/Plan antibiotics : linezolid colistin 5.18.20 A 1. lumbar abscess s/p drainage with MRSA | pseudomonas 2. MRSA sepsis 3. left knee septic arthritis 4. paraplegia P 1. continue linezolid 33 more days 2. continue colistin 8 more days 3. will follow up cultures Subjective ROS Limited/Unobtainable: Yes Allergies: Coded Allergies: CEFTRIAXONE (Verified Allergy, Intermediate, SOB, HR-140bpm, face swollen , pt became red, 10/24/15) CODEINE (Verified Allergy, Intermediate, SWELLING, 01/03/11) LATEX (Verified Allergy, Intermediate, SWELLING, 01/03/11) PIPERACILLIN (Verified Allergy, Intermediate, Itching, 08/29/15) 08/29/15 tolerates Ceftaroline TAZOBACTAM (Verified Allergy, Intermediate, Itching, 01/29/15) POLYMYXIN B (Verified Allergy, Mild, Rash, 04/08/16) Suspected allergy reported by MD VANCOMYCIN (Verified Allergy, Mild, 07/15/14) ASPARAGINASE (Verified Allergy, Unknown, 01/28/14) CEFUROXIME (Unverified Allergy, Unknown, 04/19/16) IRON (Verified Allergy, Unknown, 01/28/14) LATEX, NATURAL RUBBER (Unverified Allergy, Unknown, 06/18/16) Objective Vital Signs Last 24 Hour Vital Signs Date Time Temp Pulse Resp B/P (MAP) Pulse Ox O2 Delivery O2 Flow Rate FiO2 08/28/19 09:00 Room Air 08/28/19 08:00 97.7 105 18 103/59 (74) 97 08/28/19 04:39 98.4 08/28/19 04:16 98.4 102 22 99/53 (68) 99 08/28/19 00:22 99.1 104 20 105/60 (75) 95 08/27/19 21:42 Room Air 08/27/19 16:00 98.0 101 19 102/61 (75) 100 08/27/19 12:00 97.9 90 19 108/56 (73) 100 Height (Feet): 5 Height (Inches): 5.00 Weight (Pounds): 219 Respiratory/Chest: lungs clear Cardiovascular: normal rate, regular rhythm, no gallop/murmur Abdomen: soft, non tender, other - back Bilateral drains with drainage Extremities: no edema, other - left arm PICC Current Medications Medications (Trade) Dose Ordered Sig/Pineda Route PRN Reason Start Time Stop Time Status Last Admin Dose Admin Acetaminophen (Tylenol) 650 mg Q4H PRN ORAL Mild Pain (Pain Scale 1-3) 08/20/19 10:15 09/19/19 10:14 Al Hydroxide/Mg Hydroxide (Mylanta) 30 ml Q4H PRN ORAL INDIGESTION 08/20/19 10:15 09/19/19 10:14 Chlorhexidine Gluconate (Nereida-Hex 2%) 1 applic DAILY@2000 TOPIC 08/18/19 20:00 11/16/19 19:59 08/27/19 19:42 Colistimethate Sodium (Colistin) 150 mg EVERY 12 HOURS IVP 08/27/19 13:00 09/03/19 12:59 08/28/19 08:09 Dextrose (Dextrose 50%) 25 ml Q30M PRN IV Hypoglycemia 08/19/19 13:15 11/17/19 13:14 Dextrose (Dextrose 50%) 50 ml Q30M PRN IV Hypoglycemia 08/19/19 13:15 11/17/19 13:14 Diphenhydramine HCl (Benadryl) 25 mg Q6H PRN IVP Itching 08/21/19 10:30 09/20/19 10:29 08/28/19 08:10 Hydromorphone HCl (Dilaudid) 2 mg Q4H PRN IM Severe Pain (Pain Scale 7-10) 08/21/19 23:45 08/28/19 23:44 08/28/19 08:12 Insulin Aspart (NovoLOG) BEFORE MEALS AND HS SUBQ 08/19/19 16:30 11/17/19 16:29 Lidocaine HCl (Xylocaine 1% 30ml) 30 ml ONCE INJ 08/28/19 09:45 08/28/19 12:45 Linezolid 300 ml @ 300 mls/hr Q12HR IVPB 08/21/19 21:00 09/30/19 23:59 08/28/19 08:09 Magnesium Oxide (Mag-Ox 400mg) 400 mg THREE TIMES A DAY ORAL 08/23/19 19:45 09/22/19 19:44 08/28/19 08:09 Ondansetron HCl (Zofran) 4 mg Q6H PRN IVP Nausea & Vomiting 08/20/19 10:15 09/19/19 10:14 08/27/19 13:44 Pantoprazole (Protonix) 40 mg DAILY ORAL 08/20/19 10:18 09/19/19 10:17 08/28/19 08:09 Deng Reyes MD August 28, 2019 11:42"
[2019-08-28 12:00] VITALS: BP 110/56
--- NOTE | 2019-08-28 14:46 | General Progress Note ---
Assessment/Plan Problem List: (1) Pain ICD Codes: R52 - Pain, unspecified SNOMED: 54084308 (2) Osteomyelitis ICD Codes: M86.9 - Osteomyelitis, unspecified SNOMED: 42701048 (3) Abscess ICD Codes: L02.91 - Abscess SNOMED: 449822190 (4) Paraplegia ICD Codes: G82.20 - Paraplegia SNOMED: 16540850 (5) Asthma ICD Codes: J45.909 - Unspecified asthma, uncomplicated SNOMED: 380247618 (6) Anemia ICD Codes: D64.9 - Anemia, unspecified SNOMED: 859986315 (7) Acute renal failure ICD Codes: N17.9 - Acute kidney failure, unspecified SNOMED: 92011515 (8) right hip wound infecion/ulcer/osteo (9) Sepsis ICD Codes: A41.9 - Sepsis SNOMED: 01092494 (10) Cellulitis ICD Codes: L03.90 - Cellulitis, unspecified SNOMED: 219456361 (11) Abdominal pain ICD Codes: R10.9 - Unspecified abdominal pain SNOMED: 15223869 (12) Dehydration ICD Codes: E86.0 - Dehydration SNOMED: 98958392 Status: stable, progressing Assessment/Plan: cont iv abx per id follow up cultures drain to be replaced today by IR monitor output benadryl for itching pain rx antiemetics ivf as needed dvt/stress ulcer prophylaxis Subjective ROS Limited/Unobtainable: No Constitutional: Reports: malaise, weakness HEENT: Reports: no symptoms Cardiovascular: Reports: no symptoms Respiratory: Reports: no symptoms Gastrointestinal/Abdominal: Reports: no symptoms Genitourinary: Reports: no symptoms 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: Reports: paresthesia, pre-existing deficit, tingling, weakness Endocrine: Reports: no symptoms Hematologic/Lymphatic: Reports: anemia Allergies: Coded Allergies: CEFTRIAXONE (Verified Allergy, Intermediate, SOB, HR-140bpm, face swollen , pt became red, 10/24/15) CODEINE (Verified Allergy, Intermediate, SWELLING, 01/03/11) LATEX (Verified Allergy, Intermediate, SWELLING, 01/03/11) PIPERACILLIN (Verified Allergy, Intermediate, Itching, 08/29/15) 08/29/15 tolerates Ceftaroline TAZOBACTAM (Verified Allergy, Intermediate, Itching, 01/29/15) POLYMYXIN B (Verified Allergy, Mild, Rash, 04/08/16) Suspected allergy reported by VANCOMYCIN (Verified Allergy, Mild, 07/15/14) ASPARAGINASE (Verified Allergy, Unknown, 01/28/14) CEFUROXIME (Unverified Allergy, Unknown, 04/19/16) IRON (Verified Allergy, Unknown, 01/28/14) LATEX, NATURAL RUBBER (Unverified Allergy, Unknown, 06/18/16) All Systems: reviewed and negative except above Subjective no events. drain fell out. no new complaints. pain controlled. no fevers. stooll output from colostomy. ID [email or web address] Objective Last 24 Hour Vital Signs Date Time Temp Pulse Resp B/P (MAP) Pulse Ox O2 Delivery O2 Flow Rate FiO2 08/28/19 12:00 98.3 94 18 110/56 (74) 97 08/28/19 09:00 Room Air 08/28/19 08:00 97.7 105 18 103/59 (74) 97 08/28/19 04:39 98.4 08/28/19 04:16 98.4 102 22 99/53 (68) 99 08/28/19 00:22 99.1 104 20 105/60 (75) 95 08/27/19 21:42 Room Air 08/27/19 16:00 98.0 101 19 102/61 (75) 100 Intake and Output 08/27/19 08/28/19 19:00 07:00 Intake Total 300 ml 960 ml Balance 300 ml 960 ml Intake Oral 300 ml IV Total 600 ml Other 360 ml # Voids 1 Height (Feet): 5 Height (Inches): 5.00 Weight (Pounds): 219 Objective General Appearance: WD/WN, alert EENT: normal ENT inspection Neck: non-tender, normal alignment, supple Cardiovascular: normal peripheral pulses, normal rate, regular rhythm Respiratory/Chest: chest wall non-tender, lungs clear, normal breath sounds, no respiratory distress Abdomen: normal bowel sounds, non tender, soft, no organomegaly Edema: no edema noted Arm (L), no edema noted Arm (R), no edema noted Leg (L), no edema noted Leg (R), no edema noted Pedal (L), no edema noted Pedal (R), no edema noted Generalized Neurologic: motor weakness, sensory deficit Skin: normal pigmentation Lymphatic: normal anterior cervical (L), normal anterior cervical (R) Jacques Chanel MD August 28, 2019 14:46
[2019-08-28] MEDS ORDERED: Albuterol 90mcg Inhaler 8gm INH PRN (15:45)
[2019-08-28 16:00] VITALS: BP 129/53
[2019-08-28] MEDS ORDERED: Albuterol ud Inhalation HHN PRN (16:00)
--- NOTE | 2019-08-28 19:24 | NUR ---
HAND-OFF: Report given to Leeann LANGE.
--- NOTE | 2019-08-28 19:48 | NUR ---
NURSE NOTES: Received patient awake, alert, verbal, eating dinner, without any complaints.
[2019-08-28 20:28] VITALS: BP 124/54
[2019-08-28] MEDS: Dyna-Hex 2% Top Sol 2oz TOPIC SCH (20:47)
[2019-08-29] VITALS (10 sets, daily range): BP systolic 84–148; BP diastolic 50–79
[2019-08-29] MEDS: DiphenhydrAMINE 50mg/ml Inj IVP PRN ×3 (04:22→17:11)
[2019-08-29] MEDS: NovoLOG Insulin Flexpen SUBQ SCH ×4 (06:06→21:00)
--- NOTE | 2019-08-29 07:13 | NUR ---
HAND-OFF: Report given to Linda Leon RN.
--- NOTE | 2019-08-29 07:13 | NUR ---
NURSE NOTES: Received patient in bed asleep. No SOB or acute distress. PICC line intact. For CT guided drain placement catheter today, consent in chart. HOB elevated. Bed locked in lowest position. Call light within reach. Will continue plan of care.
--- NOTE | 2019-08-29 08:00 | NUR ---
NURSE NOTES: For PT, PTT, INR, sent to lab.
[2019-08-29] MEDS: Magnesium Oxide 400mg tab ORAL SCH ×3 (08:12→18:14)
[2019-08-29] MEDS: Colistin 150mg vial IVP SCH ×2 (08:13→21:14)
[2019-08-29 08:15] LABS: ANION GAP 11 mmol/L (5-15); BLOOD UREA NITROGEN 12 mg/dL (7-18); CALCIUM 7.4 MG/DL (8.5-10.1); CARBON DIOXIDE 23 MMOL/L (21-32); CHLORIDE 99 MMOL/L (98-107); CREATININE 0.9 MG/DL (0.55-1.30); POTASSIUM 4.4 MMOL/L (3.5-5.1); SODIUM 133 MMOL/L (136-145)
[2019-08-29 08:19] LABS: INR 1.2 (0.9-1.1)
--- NOTE | 2019-08-29 09:15 | Pulmonology Progress Note ---
Subjective ROS Limited/Unobtainable: No Constitutional: Denies: fever, chills Gastrointestinal/Abdominal: Reports: nausea; Denies: vomiting, diarrhea Musculoskeletal: Reports: pain - decreased Allergies: Coded Allergies: CEFTRIAXONE (Verified Allergy, Intermediate, SOB, HR-140bpm, face swollen , pt became red, 10/24/15) CODEINE (Verified Allergy, Intermediate, SWELLING, 01/03/11) LATEX (Verified Allergy, Intermediate, SWELLING, 01/03/11) PIPERACILLIN (Verified Allergy, Intermediate, Itching, 08/29/15) 08/29/15 tolerates Ceftaroline TAZOBACTAM (Verified Allergy, Intermediate, Itching, 01/29/15) POLYMYXIN B (Verified Allergy, Mild, Rash, 04/08/16) Suspected allergy reported by VANCOMYCIN (Verified Allergy, Mild, 07/15/14) ASPARAGINASE (Verified Allergy, Unknown, 01/28/14) CEFUROXIME (Unverified Allergy, Unknown, 04/19/16) IRON (Verified Allergy, Unknown, 01/28/14) LATEX, NATURAL RUBBER (Unverified Allergy, Unknown, 06/18/16) All Systems: reviewed and negative except above Subjective +pain drain out with some drainage no fevers noted and labs better agrees to plan and dispo Objective Last 24 Hour Vital Signs Date Time Temp Pulse Resp B/P (MAP) Pulse Ox O2 Delivery O2 Flow Rate FiO2 08/29/19 08:00 98.1 106 20 148/79 (102) 100 08/29/19 04:16 97.7 103 24 98/56 (70) 97 08/29/19 00:07 98.6 99 24 110/51 (70) 96 08/28/19 21:18 99.0 08/28/19 20:28 99.0 110 20 124/54 (77) 98 08/28/19 20:21 Room Air 08/28/19 16:00 98.1 101 20 129/53 (78) 96 08/28/19 12:00 98.3 94 18 110/56 (74) 97 Intake and Output 08/28/19 08/29/19 19:00 07:00 Intake Total 720 ml 660 ml Balance 720 ml 660 ml Intake Oral 720 ml IV Total 300 ml Other 360 ml # Voids 3 1 Objective GENERAL: Patient is an ill-appearing female. in pain HEENT: Negative. NECK: Supple. LUNGS: Good air entry. CARDIAC: S1, S2. Regular rate and rhythm. ABDOMEN: Soft, nontender. EXTREMITIES: With significant atrophy. Laboratory Tests 08/29/19 04:30: Sodium Level 133L, Potassium Level 4.4, Chloride Level 99, Carbon Dioxide Level 23, Anion Gap 11, Blood Urea Nitrogen 12, Creatinine 0.9, Estimat Glomerular Filtration Rate > 60, Glucose Level 105, Calcium Level 7.4L, Magnesium Level 1.3L 08/29/19 08:00: Prothrombin Time 13.1H, Prothromb Time International Ratio 1.2H, Activated Partial Thromboplast Time 38H Current Medications Medications (Trade) Dose Ordered Sig/Pineda Route PRN Reason Start Time Stop Time Status Last Admin Dose Admin Acetaminophen (Tylenol) 650 mg Q4H PRN ORAL Mild Pain (Pain Scale 1-3) 08/20/19 10:15 09/19/19 10:14 Al Hydroxide/Mg Hydroxide (Mylanta) 30 ml Q4H PRN ORAL INDIGESTION 08/20/19 10:15 09/19/19 10:14 Albuterol Sulfate (Proventil) 2.5 mg Q4H PRN HHN Shortness of Breath 08/28/19 16:00 09/02/19 15:59 Chlorhexidine Gluconate (Nereida-Hex 2%) 1 applic DAILY@2000 TOPIC 08/18/19 20:00 11/16/19 19:59 08/28/19 20:47 Colistimethate Sodium (Colistin) 150 mg EVERY 12 HOURS IVP 08/27/19 13:00 09/06/19 23:59 08/29/19 08:13 Dextrose (Dextrose 50%) 25 ml Q30M PRN IV Hypoglycemia 08/19/19 13:15 11/17/19 13:14 Dextrose (Dextrose 50%) 50 ml Q30M PRN IV Hypoglycemia 08/19/19 13:15 11/17/19 13:14 Diphenhydramine HCl (Benadryl) 25 mg Q6H PRN IVP Itching 08/21/19 10:30 09/20/19 10:29 08/29/19 04:22 Hydromorphone HCl (Dilaudid) 2 mg Q4H PRN IVP Severe Pain (Pain Scale 7-10) 08/29/19 06:15 09/05/19 06:14 08/29/19 07:55 Insulin Aspart (NovoLOG) BEFORE MEALS AND HS SUBQ 08/19/19 16:30 11/17/19 16:29 Linezolid 300 ml @ 300 mls/hr Q12HR IVPB 08/21/19 21:00 09/30/19 23:59 08/29/19 08:12 Magnesium Oxide (Mag-Ox 400mg) 400 mg THREE TIMES A DAY ORAL 08/23/19 19:45 09/22/19 19:44 08/29/19 08:12 Ondansetron HCl (Zofran) 4 mg Q6H PRN IVP Nausea & Vomiting 08/20/19 10:15 09/19/19 10:14 08/28/19 12:16 Pantoprazole (Protonix) 40 mg DAILY ORAL 08/20/19 10:18 09/19/19 10:17 08/29/19 08:13 Assessment/Plan Assessment/Plan IMPRESSION: Multiple abscesses s/p aspiration, hyponatremia, hyperkalemia, acute renal failure, shortness of breath, dyspnea, leukocytosis, anemia, thrombocytosis. PLAN PICC - care linezolid IV pain control poor surgical candidate dc planning with home HH and IV if able today and will need drain care on dc impression, plan, and exam edited and reviewed in detail care discussed with Thanh Garcia MD August 29, 2019 09:15
--- NOTE | 2019-08-29 10:30 | NUR ---
RD ASSESSMENT & RECOMMENDATIONS SEE CARE ACTIVITY FOR COMPLETE ASSESSMENT DAILY ESTIMATED NEEDS: Needs based on Wound + paraplegia, 65 kg abw 28-30 kcals/kg 0631-9709 total kcals 1.25-2 g protein/kg 81-130 g total protein 1L Fluid restriction per MD mL/kg . total fluid mLs NUTRITION DIAGNOSIS: (1) Increased KCAL, protein, and micronutrient needs r/t wound healing as evidenced pt w/ multiple full thickness wounds @ sacrum, R buttock, L ischium, R knee, poasterior L leg, lateral R tibia, unstageable wound @ distal/lateral R tibia, and DTPI @ R gluteal cheek, admitted w/ new paraspinal abscess as well. (2) Altered nutrition related values R/T diabetes as evidenced by elev BGs (192, 161-> now improved 105, 145), A1C of 8.4 (07/29/19). CURRENT DIET:REGULAR + 1L fluid restriction PO DIET RECOMMENDATIONS: CCHO MED + High Prot snacks BID (Fluid restriction per MD) ADDITIONAL RECOMMENDATIONS: * Recalibrated bedscale wt for accurate CBW-> monitor weekly wts * WOUND CARE: MVI w/ min x1+VIT C 500mg BID ZnSO4 220mg QD x 10 days Luiz BID recommended but pt w/ h/o refusal * Monitor BGs- elevated, A1C >8.0,pt refusing NISS and carb controlled diet * Monitor PO intake -> now improved * Monitor lytes, replete as needed (low mag)
--- NOTE | 2019-08-29 10:43 | Infectious Diseases Prog Note ---
"Assessment/Plan Assessment/Plan antibiotics : linezolid colistin 5.18.20 A 1. lumbar abscess s/p drainage with MRSA | pseudomonas 2. MRSA sepsis 3. left knee septic arthritis 4. paraplegia P 1. continue linezolid 32 more days 2. continue colistin 7 more days 3. will follow up cultures Subjective Constitutional: Denies: fever, chills Respiratory: Denies: shortness of breath, dry cough Gastrointestinal/Abdominal: Reports: nausea; Denies: vomiting, diarrhea Musculoskeletal: Reports: pain Allergies: Coded Allergies: CEFTRIAXONE (Verified Allergy, Intermediate, SOB, HR-140bpm, face swollen , pt became red, 10/24/15) CODEINE (Verified Allergy, Intermediate, SWELLING, 01/03/11) LATEX (Verified Allergy, Intermediate, SWELLING, 01/03/11) PIPERACILLIN (Verified Allergy, Intermediate, Itching, 08/29/15) 08/29/15 tolerates Ceftaroline TAZOBACTAM (Verified Allergy, Intermediate, Itching, 01/29/15) POLYMYXIN B (Verified Allergy, Mild, Rash, 04/08/16) Suspected allergy reported by VANCOMYCIN (Verified Allergy, Mild, 07/15/14) ASPARAGINASE (Verified Allergy, Unknown, 01/28/14) CEFUROXIME (Unverified Allergy, Unknown, 04/19/16) IRON (Verified Allergy, Unknown, 01/28/14) LATEX, NATURAL RUBBER (Unverified Allergy, Unknown, 06/18/16) Objective Vital Signs Last 24 Hour Vital Signs Date Time Temp Pulse Resp B/P (MAP) Pulse Ox O2 Delivery O2 Flow Rate FiO2 08/29/19 08:00 98.1 106 20 148/79 (102) 100 08/29/19 04:16 97.7 103 24 98/56 (70) 97 08/29/19 00:07 98.6 99 24 110/51 (70) 96 08/28/19 21:18 99.0 08/28/19 20:28 99.0 110 20 124/54 (77) 98 08/28/19 20:21 Room Air 08/28/19 16:00 98.1 101 20 129/53 (78) 96 08/28/19 12:00 98.3 94 18 110/56 (74) 97 Height (Feet): 5 Height (Inches): 5.00 Weight (Pounds): 224 Respiratory/Chest: lungs clear Cardiovascular: normal rate, regular rhythm, no gallop/murmur Abdomen: soft, non tender Extremities: no edema, other - left arm PICC Laboratory Tests Test 08/29/19 04:30 08/29/19 08:00 Sodium Level 133 MMOL/L (136-145) L Potassium Level 4.4 MMOL/L (3.5-5.1) Chloride Level 99 MMOL/L (98-107) Carbon Dioxide Level 23 MMOL/L (21-32) Anion Gap 11 mmol/L (5-15) Blood Urea Nitrogen 12 mg/dL (7-18) Creatinine 0.9 MG/DL (0.55-1.30) Estimat Glomerular Filtration Rate > 60 mL/min (>60) Glucose Level 105 MG/DL (74-106) Calcium Level 7.4 MG/DL (8.5-10.1) L Magnesium Level 1.3 MG/DL (1.8-2.4) L Prothrombin Time 13.1 SEC (9.30-11.50) H Prothromb Time International Ratio 1.2 (0.9-1.1) H Activated Partial Thromboplast Time 38 SEC (23-33) H Current Medications Medications (Trade) Dose Ordered Sig/Pineda Route PRN Reason Start Time Stop Time Status Last Admin Dose Admin Acetaminophen (Tylenol) 650 mg Q4H PRN ORAL Mild Pain (Pain Scale 1-3) 08/20/19 10:15 09/19/19 10:14 Al Hydroxide/Mg Hydroxide (Mylanta) 30 ml Q4H PRN ORAL INDIGESTION 08/20/19 10:15 09/19/19 10:14 Albuterol Sulfate (Proventil) 2.5 mg Q4H PRN HHN Shortness of Breath 08/28/19 16:00 09/02/19 15:59 Chlorhexidine Gluconate (Nereida-Hex 2%) 1 applic DAILY@1999 TOPIC 08/18/19 20:00 11/16/19 19:59 08/28/19 20:47 Colistimethate Sodium (Colistin) 150 mg EVERY 12 HOURS IVP 08/27/19 13:00 09/06/19 23:59 08/29/19 08:13 Dextrose (Dextrose 50%) 25 ml Q30M PRN IV Hypoglycemia 08/19/19 13:15 11/17/19 13:14 Dextrose (Dextrose 50%) 50 ml Q30M PRN IV Hypoglycemia 08/19/19 13:15 11/17/19 13:14 Diphenhydramine HCl (Benadryl) 25 mg Q6H PRN IVP Itching 08/21/19 10:30 09/20/19 10:29 08/29/19 04:22 Hydromorphone HCl (Dilaudid) 2 mg Q4H PRN IVP Severe Pain (Pain Scale 7-10) 08/29/19 06:15 09/05/19 06:14 08/29/19 07:55 Insulin Aspart (NovoLOG) BEFORE MEALS AND HS SUBQ 08/19/19 16:30 11/17/19 16:29 Linezolid 300 ml @ 300 mls/hr Q12HR IVPB 08/21/19 21:00 09/30/19 23:59 08/29/19 08:12 Magnesium Oxide (Mag-Ox 400mg) 400 mg THREE TIMES A DAY ORAL 08/23/19 19:45 09/22/19 19:44 08/29/19 08:12 Ondansetron HCl (Zofran) 4 mg Q6H PRN IVP Nausea & Vomiting 08/20/19 10:15 09/19/19 10:14 08/28/19 12:16 Pantoprazole (Protonix) 40 mg DAILY ORAL 08/20/19 10:18 09/19/19 10:17 08/29/19 08:13 Deng Reyes MD August 29, 2019 10:43"
--- NOTE | 2019-08-29 11:51 | NUR ---
DISCHARGE PLANNING CALL MADE TO [facility] @ [phone]. S/W PINKY RASCON AND INFORMED HER OF ANTICIPATED DC TODAY WITH IV ABX FOR 24 DAYS AND WILL REQUIRE TISH DRAIN CARE. ABIODUN CONFIRMED SERVICE OF CARE WILL RESUME UPON HOSPITAL DC AND RN WILL BE PROVIDED FOR TISH DRAINS AND IV. DR MICHEL INFORMED. UPDATED IV ABX ORDER FAXED TO [facility] @ F: [phone] ELLIOTT CARLOS
--- NOTE | 2019-08-29 13:10 | NUR ---
NURSE NOTES: Patient transported down for procedure.
[2019-08-29] MEDS ORDERED: Lidocaine 1% Plain 30 ml INJ PRN (13:15)
--- NOTE | 2019-08-29 14:16 | Pre-Procedure Note/Attestation ---
Pre-Procedure Note/Attestation Complete Prior to Procedure Planned Procedure: not applicable Procedure Narrative: CT guided drainage Indications for Procedure Pre-Operative Diagnosis: abscess/fluid collection Attestation procedure explained. patient awake and alert, expressed understanding and signed consent. Shamar Chen M.D. August 29, 2019 14:16
--- NOTE | 2019-08-29 14:50 | NUR ---
NURSE NOTES: Back to floor from procedure.
--- NOTE | 2019-08-29 15:06 | NUR ---
CHARGE NURSE NOTE: [employer] account development representative (Ger) wants to talk to the pt. Pt states that she is in pain, does not want to talk to anybody. Ger will call tomorrow.
--- NOTE | 2019-08-29 15:28 | NUR ---
CHARGE NURSE NOTE: BP dropped to 84/50 after drain placement procedure. Pt alert, oriented. notified.Bolus NS 1 liter order received.
--- NOTE | 2019-08-29 15:42 | General Progress Note ---
Assessment/Plan Problem List: (1) Pain ICD Codes: R52 - Pain, unspecified SNOMED: 15255898 (2) Osteomyelitis ICD Codes: M86.9 - Osteomyelitis, unspecified SNOMED: 47085845 (3) Abscess ICD Codes: L02.91 - Abscess SNOMED: 193140394 (4) Paraplegia ICD Codes: G82.20 - Paraplegia SNOMED: 34037487 (5) Asthma ICD Codes: J45.909 - Unspecified asthma, uncomplicated SNOMED: 742714291 (6) Anemia ICD Codes: D64.9 - Anemia, unspecified SNOMED: 967401291 (7) Acute renal failure ICD Codes: N17.9 - Acute kidney failure, unspecified SNOMED: 23132297 (8) right hip wound infecion/ulcer/osteo (9) Sepsis ICD Codes: A41.9 - Sepsis SNOMED: 75017312 (10) Cellulitis ICD Codes: L03.90 - Cellulitis, unspecified SNOMED: 274090463 (11) Abdominal pain ICD Codes: R10.9 - Unspecified abdominal pain SNOMED: 68803501 (12) Dehydration ICD Codes: E86.0 - Dehydration SNOMED: 06020343 Status: stable, progressing Assessment/Plan: cont iv abx per id monitor output from drains benadryl for itching pain rx antiemetics ivf as needed dvt/stress ulcer prophylaxis Subjective ROS Limited/Unobtainable: No Constitutional: Reports: malaise, weakness HEENT: Reports: no symptoms Cardiovascular: Reports: no symptoms Respiratory: Reports: no symptoms Gastrointestinal/Abdominal: Reports: no symptoms Genitourinary: Reports: no symptoms 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: Reports: depressed, numbness, paresthesia, pre- existing deficit, weakness Endocrine: Reports: no symptoms Hematologic/Lymphatic: Reports: anemia Allergies: Coded Allergies: CEFTRIAXONE (Verified Allergy, Intermediate, SOB, HR-140bpm, face swollen , pt became red, 10/24/15) CODEINE (Verified Allergy, Intermediate, SWELLING, 01/03/11) LATEX (Verified Allergy, Intermediate, SWELLING, 01/03/11) PIPERACILLIN (Verified Allergy, Intermediate, Itching, 08/29/15) 08/29/15 tolerates Ceftaroline TAZOBACTAM (Verified Allergy, Intermediate, Itching, 01/29/15) POLYMYXIN B (Verified Allergy, Mild, Rash, 04/08/16) Suspected allergy reported by VANCOMYCIN (Verified Allergy, Mild, 07/15/14) ASPARAGINASE (Verified Allergy, Unknown, 01/28/14) CEFUROXIME (Unverified Allergy, Unknown, 04/19/16) IRON (Verified Allergy, Unknown, 01/28/14) LATEX, NATURAL RUBBER (Unverified Allergy, Unknown, 06/18/16) All Systems: reviewed and negative except above Subjective no events. no new complaints. pain controlled. no fevers. stool output from colostomy. ID noted Objective Last 24 Hour Vital Signs Date Time Temp Pulse Resp B/P (MAP) Pulse Ox O2 Delivery O2 Flow Rate FiO2 08/29/19 14:10 97.7 116 14 110/60 (77) 99 08/29/19 13:52 116 14 110/60 (77) 99 08/29/19 13:41 112 14 97 08/29/19 13:37 115 16 08/29/19 13:32 97.7 115 16 101/69 (80) 99 08/29/19 12:00 97.7 105 20 104/64 (77) 100 08/29/19 09:00 Room Air 08/29/19 08:00 98.1 106 20 148/79 (102) 100 08/29/19 04:16 97.7 103 24 98/56 (70) 97 08/29/19 00:07 98.6 99 24 110/51 (70) 96 08/28/19 21:18 99.0 08/28/19 20:28 99.0 110 20 124/54 (77) 98 08/28/19 20:21 Room Air 08/28/19 16:00 98.1 101 20 129/53 (78) 96 Intake and Output 08/28/19 08/29/19 19:00 07:00 Intake Total 720 ml 660 ml Balance 720 ml 660 ml Intake Oral 720 ml IV Total 300 ml Other 360 ml # Voids 3 1 Laboratory Tests 08/29/19 04:30: Sodium Level 133L, Potassium Level 4.4, Chloride Level 99, Carbon Dioxide Level 23, Anion Gap 11, Blood Urea Nitrogen 12, Creatinine 0.9, Estimat Glomerular Filtration Rate > 60, Glucose Level 105, Calcium Level 7.4L, Magnesium Level 1.3L 08/29/19 08:00: Prothrombin Time 13.1H, Prothromb Time International Ratio 1.2H, Activated Partial Thromboplast Time 38H Height (Feet): 5 Height (Inches): 5.00 Weight (Pounds): 224 Objective General Appearance: WD/WN, alert EENT: normal ENT inspection Neck: non-tender, normal alignment, supple Cardiovascular: normal peripheral pulses, normal rate, regular rhythm Respiratory/Chest: chest wall non-tender, lungs clear, normal breath sounds, no respiratory distress Abdomen: normal bowel sounds, non tender, soft, no organomegaly Edema: no edema noted Arm (L), no edema noted Arm (R), no edema noted Leg (L), no edema noted Leg (R), no edema noted Pedal (L), no edema noted Pedal (R), no edema noted Generalized Neurologic: motor weakness, sensory deficit Skin: normal pigmentation Lymphatic: normal anterior cervical (L), normal anterior cervical (R) Jacques Chanel MD August 29, 2019 15:42
--- NOTE | 2019-08-29 15:57 | Diagnostic Imaging Report ---
Indication: Lumbar abscesses status post CT-guided drainage of 2 abscesses on 08/19/2021 veins have been inadvertently retracted with one drain being completely retracted and the other retracted in the soft tissues. Technique: Patient positioned prone. The back and external portions indwelling drainage catheter prepped and draped in usual sterile fashion. Of the indwelling catheter was cut and the catheter was removed. The entire catheter including the locking string was removed. Lidocaine was administered for local anesthesia. The midline fluid collection was accessed utilizing CT guidance and an 8.5 Somali drain utilizing trocar technique. The cope loop of the drain was formed and locked within the collection. Approximately 30 cc of serosanguineous fluid was aspirated. Catheter was fixed to the skin and connected to gravity drainage. Patient tolerated procedure well and left the department stable condition. Total dose length product 559.1 mGycm. CTDIvol(s) 43.2 mGy. Radiation dose was minimized using automated exposure control Comparison: 08/20/2019 Findings: Initial imaging demonstrates significant interval reduction in size of the right paraspinal collection with only a thin fluid collection remaining. This fluid collection measures less than 2 cm in thickness and therefore is not targeted for drainage. Additionally there is a fluid collection in the midline superficial to the spine which measures approximately 5.7 cm transverse by 2.3 cm AP. This patient with previously drained out of the catheter appears to been retracted now in the soft tissues superficial to the collection. Successful replacement of a drain within this collection with CT images demonstrated appropriate positioning of the cope loop within the target collection. Aspiration yielded additional 30 cc of serosanguineous fluid. Completion images demonstrate collapse of the fluid cavity around the drain. IMPRESSION: Successful aspiration and drainage of superficial paraspinal collection as detailed above. The CT scanner at [facility] is accredited by the [employer] and the scans are performed using protocols designed to limit radiation exposure to as low as reasonably achievable to attain images of sufficient resolution adequate for diagnostic evaluation.
--- NOTE | 2019-08-29 16:55 | NUR ---
CARPENTER'S ASSISTANT NOTE PER DR MICHEL, WILL NOT DC PATIENT TODAY DUE TO HYPOTENSION POST DRAIN PLACEMENT
--- NOTE | 2019-08-29 19:30 | NUR ---
HAND-OFF: Report given to Sharad LANGE.
--- NOTE | 2019-08-29 19:35 | NUR ---
NURSE NOTES: Report Patient in bed awake,verbal and a&o x4. no pain,sob, fever and cough. picc line on the left upper arm and asymptomatic. Bed is in the lower position,locked, and Call light within reach. We will monitor the pt.
[2019-08-29] MEDS: Dyna-Hex 2% Top Sol 2oz TOPIC SCH (20:00)
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
[2019-08-30] VITALS (7 sets, daily range): BP systolic 91–118; BP diastolic 50–64
[2019-08-30] MEDS: DiphenhydrAMINE 50mg/ml Inj IVP PRN ×3 (02:35→21:34)
[2019-08-30] MEDS: NovoLOG Insulin Flexpen SUBQ SCH ×4 (05:56→21:00)
--- NOTE | 2019-08-30 07:10 | NUR ---
HAND-OFF: Report given to ANISA Worley.
--- NOTE | 2019-08-30 08:03 | NUR ---
NURSE NOTES: Patient in supine position, awake and alert to name, watching television, pain treated with Dilaudid, bed in lowest position, call light within reach, in no apparent distress.
[2019-08-30] MEDS: Colistin 150mg vial IVP SCH ×2 (08:17→21:33)
[2019-08-30] MEDS: Magnesium Oxide 400mg tab ORAL SCH ×3 (08:17→17:24)
--- NOTE | 2019-08-30 08:54 | Pulmonology Progress Note ---
Subjective ROS Limited/Unobtainable: No Constitutional: Denies: fever, chills Gastrointestinal/Abdominal: Reports: nausea; Denies: vomiting, diarrhea Musculoskeletal: Reports: pain Allergies: Coded Allergies: CEFTRIAXONE (Verified Allergy, Intermediate, SOB, HR-140bpm, face swollen , pt became red, 10/24/15) CODEINE (Verified Allergy, Intermediate, SWELLING, 01/03/11) LATEX (Verified Allergy, Intermediate, SWELLING, 01/03/11) PIPERACILLIN (Verified Allergy, Intermediate, Itching, 08/29/15) 08/29/15 tolerates Ceftaroline TAZOBACTAM (Verified Allergy, Intermediate, Itching, 01/29/15) POLYMYXIN B (Verified Allergy, Mild, Rash, 04/08/16) Suspected allergy reported by VANCOMYCIN (Verified Allergy, Mild, 07/15/14) ASPARAGINASE (Verified Allergy, Unknown, 01/28/14) CEFUROXIME (Unverified Allergy, Unknown, 04/19/16) IRON (Verified Allergy, Unknown, 01/28/14) LATEX, NATURAL RUBBER (Unverified Allergy, Unknown, 06/18/16) All Systems: reviewed and negative except above Subjective drain replaced hypotensive post procedure and labs better agrees to plan and dispo Objective Last 24 Hour Vital Signs Date Time Temp Pulse Resp B/P (MAP) Pulse Ox O2 Delivery O2 Flow Rate FiO2 08/30/19 08:07 97.9 08/30/19 04:00 97.9 105 21 93/54 (67) 96 08/30/19 00:00 99.1 118 24 91/59 (70) 98 08/29/19 21:00 Room Air 08/29/19 20:00 98.2 106 24 93/54 (67) 98 08/29/19 16:00 97.9 110 20 84/50 (61) 99 08/29/19 14:10 97.7 116 14 110/60 (77) 99 08/29/19 13:52 116 14 110/60 (77) 99 08/29/19 13:41 112 14 97 08/29/19 13:37 115 16 08/29/19 13:32 97.7 115 16 101/69 (80) 99 08/29/19 12:00 97.7 105 20 104/64 (77) 100 08/29/19 09:00 Room Air Intake and Output 08/29/19 08/30/19 19:00 07:00 Intake Total 360 ml 600 ml Balance 360 ml 600 ml Intake Oral 360 ml Other 600 ml # Voids 2 2 Objective GENERAL: Patient is an ill-appearing female. in pain HEENT: Negative. NECK: Supple. LUNGS: Good air entry. CARDIAC: S1, S2. Regular rate and rhythm. ABDOMEN: Soft, nontender. EXTREMITIES: With significant atrophy. Current Medications Medications (Trade) Dose Ordered Sig/Pineda Route PRN Reason Start Time Stop Time Status Last Admin Dose Admin Acetaminophen (Tylenol) 650 mg Q4H PRN ORAL Mild Pain (Pain Scale 1-3) 08/20/19 10:15 09/19/19 10:14 Al Hydroxide/Mg Hydroxide (Mylanta) 30 ml Q4H PRN ORAL INDIGESTION 08/20/19 10:15 09/19/19 10:14 Albuterol Sulfate (Proventil) 2.5 mg Q4H PRN HHN Shortness of Breath 08/28/19 16:00 09/02/19 15:59 Chlorhexidine Gluconate (Nereida-Hex 2%) 1 applic DAILY@2000 TOPIC 08/18/19 20:00 11/16/19 19:59 08/29/19 20:00 Colistimethate Sodium (Colistin) 150 mg EVERY 12 HOURS IVP 08/27/19 13:00 09/06/19 23:59 08/30/19 08:17 Dextrose (Dextrose 50%) 25 ml Q30M PRN IV Hypoglycemia 08/19/19 13:15 11/17/19 13:14 Dextrose (Dextrose 50%) 50 ml Q30M PRN IV Hypoglycemia 08/19/19 13:15 11/17/19 13:14 Diphenhydramine HCl (Benadryl) 25 mg Q6H PRN IVP Itching 08/21/19 10:30 09/20/19 10:29 08/30/19 02:35 Hydromorphone HCl (Dilaudid) 2 mg Q4H PRN IVP Severe Pain (Pain Scale 7-10) 08/29/19 06:15 09/05/19 06:14 08/30/19 07:37 Insulin Aspart (NovoLOG) BEFORE MEALS AND HS SUBQ 08/19/19 16:30 11/17/19 16:29 Lidocaine HCl (Xylocaine 1% 30ml) 30 ml ONCE PRN INJ radiology procedure 08/29/19 13:15 08/31/19 13:14 Linezolid 300 ml @ 300 mls/hr Q12HR IVPB 08/21/19 21:00 09/30/19 23:59 08/30/19 08:20 Magnesium Oxide (Mag-Ox 400mg) 400 mg THREE TIMES A DAY ORAL 08/23/19 19:45 09/22/19 19:44 08/30/19 08:17 Ondansetron HCl (Zofran) 4 mg Q6H PRN IVP Nausea & Vomiting 08/20/19 10:15 09/19/19 10:14 08/29/19 12:08 Pantoprazole (Protonix) 40 mg DAILY ORAL 08/20/19 10:18 09/19/19 10:17 08/30/19 08:17 Assessment/Plan Assessment/Plan IMPRESSION: Multiple abscesses s/p aspiration, hyponatremia, hyperkalemia, acute renal failure, shortness of breath, dyspnea, leukocytosis, anemia, thrombocytosis. PLAN PICC - care linezolid IV pain control poor surgical candidate dc planning with home HH and IV and drain care confirmed monitor vitals and d/w cardiology impression, plan, and exam edited and reviewed in detail care discussed with Thanh Garcia MD August 30, 2019 08:54
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
--- NOTE | 2019-08-30 15:31 | Infectious Diseases Prog Note ---
Assessment/Plan Assessment/Plan A 1. lumbar abscess s/p drainage Wound cultures: MRSA & MDR Pseudomonas 2. MRSA sepsis 3. left knee septic arthritis 4. paraplegia 5. Anemia P 1. continue linezolid & Colistin Subjective ROS Limited/Unobtainable: Yes Constitutional: Reports: other - feels weak Gastrointestinal/Abdominal: Reports: no symptoms Allergies: Coded Allergies: CEFTRIAXONE (Verified Allergy, Intermediate, SOB, HR-140bpm, face swollen , pt became red, 10/24/15) CODEINE (Verified Allergy, Intermediate, SWELLING, 01/03/11) LATEX (Verified Allergy, Intermediate, SWELLING, 01/03/11) PIPERACILLIN (Verified Allergy, Intermediate, Itching, 08/29/15) 08/29/15 tolerates Ceftaroline TAZOBACTAM (Verified Allergy, Intermediate, Itching, 01/29/15) POLYMYXIN B (Verified Allergy, Mild, Rash, 04/08/16) Suspected allergy reported by VANCOMYCIN (Verified Allergy, Mild, 07/15/14) ASPARAGINASE (Verified Allergy, Unknown, 01/28/14) CEFUROXIME (Unverified Allergy, Unknown, 04/19/16) IRON (Verified Allergy, Unknown, 01/28/14) LATEX, NATURAL RUBBER (Unverified Allergy, Unknown, 06/18/16) Objective Vital Signs Last 24 Hour Vital Signs Date Time Temp Pulse Resp B/P (MAP) Pulse Ox O2 Delivery O2 Flow Rate FiO2 08/30/19 12:08 98.1 08/30/19 12:00 98.1 96 18 117/50 (72) 96 08/30/19 09:00 Room Air 08/30/19 08:00 97.5 100 20 91/58 (69) 98 08/30/19 04:00 97.9 105 21 93/54 (67) 96 08/30/19 00:00 99.1 118 24 91/59 (70) 98 08/29/19 21:00 Room Air 08/29/19 20:00 98.2 106 24 93/54 (67) 98 08/29/19 16:00 97.9 110 20 84/50 (61) 99 Height (Feet): 5 Height (Inches): 5.00 Weight (Pounds): 224 General Appearance: no acute distress, other - obese Respiratory/Chest: no respiratory distress Cardiovascular: normal rate Abdomen: soft, non tender Extremities: other - dependent edema 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: alert, oriented x 3, responsive Current Medications Medications (Trade) Dose Ordered Sig/Pineda Route PRN Reason Start Time Stop Time Status Last Admin Dose Admin Acetaminophen (Tylenol) 650 mg Q4H PRN ORAL Mild Pain (Pain Scale 1-3) 08/20/19 10:15 09/19/19 10:14 Al Hydroxide/Mg Hydroxide (Mylanta) 30 ml Q4H PRN ORAL INDIGESTION 08/20/19 10:15 09/19/19 10:14 Albuterol Sulfate (Proventil) 2.5 mg Q4H PRN HHN Shortness of Breath 08/28/19 16:00 09/02/19 15:59 Chlorhexidine Gluconate (Nereida-Hex 2%) 1 applic DAILY@2000 TOPIC 08/18/19 20:00 11/16/19 19:59 08/29/19 20:00 Colistimethate Sodium (Colistin) 150 mg EVERY 12 HOURS IVP 08/27/19 13:00 09/06/19 23:59 08/30/19 08:17 Dextrose (Dextrose 50%) 25 ml Q30M PRN IV Hypoglycemia 08/19/19 13:15 11/17/19 13:14 Dextrose (Dextrose 50%) 50 ml Q30M PRN IV Hypoglycemia 08/19/19 13:15 11/17/19 13:14 Diphenhydramine HCl (Benadryl) 25 mg Q6H PRN IVP Itching 08/21/19 10:30 09/20/19 10:29 08/30/19 11:51 Hydromorphone HCl (Dilaudid) 2 mg Q4H PRN IVP Severe Pain (Pain Scale 7-10) 08/29/19 06:15 09/05/19 06:14 08/30/19 11:38 Insulin Aspart (NovoLOG) BEFORE MEALS AND HS SUBQ 08/19/19 16:30 11/17/19 16:29 Lidocaine HCl (Xylocaine 1% 30ml) 30 ml ONCE PRN INJ radiology procedure 08/29/19 13:15 08/31/19 13:14 Linezolid 300 ml @ 300 mls/hr Q12HR IVPB 08/21/19 21:00 09/30/19 23:59 08/30/19 08:20 Magnesium Oxide (Mag-Ox 400mg) 400 mg THREE TIMES A DAY ORAL 08/23/19 19:45 09/22/19 19:44 08/30/19 13:26 Ondansetron HCl (Zofran) 4 mg Q6H PRN IVP Nausea & Vomiting 08/20/19 10:15 09/19/19 10:14 08/29/19 12:08 Pantoprazole (Protonix) 40 mg DAILY ORAL 08/20/19 10:18 09/19/19 10:17 08/30/19 08:17 Vaughn Juárez MD August 30, 2019 15:31
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
--- NOTE | 2019-08-30 19:27 | NUR ---
HAND-OFF: Report given to Leeann Martinez RN. Patient in supine position, watching television, bed in lowest position, call light within reach, left upper arm double lumen PICC line patent, wounds care completed, pain treated with Dilaudid, on room air saturating at 100%, in no apparnet distress.
--- NOTE | 2019-08-30 20:13 | NUR ---
NURSE NOTES: Received patient awake, alert, verbal, resting in bed comfortably without complaints.
[2019-08-30] MEDS: Dyna-Hex 2% Top Sol 2oz TOPIC SCH (21:33)
[2019-08-31 04:00] VITALS: BP 108/52
[2019-08-31] MEDS: DiphenhydrAMINE 50mg/ml Inj IVP PRN ×2 (05:24→13:37)
[2019-08-31] MEDS: NovoLOG Insulin Flexpen SUBQ SCH ×4 (05:55→21:00)
[2019-08-31 07:01] LABS: ANION GAP 10 mmol/L (5-15); BLOOD UREA NITROGEN 22 mg/dL (7-18); CALCIUM 7.2 MG/DL (8.5-10.1); CARBON DIOXIDE 21 MMOL/L (21-32); CHLORIDE 102 MMOL/L (98-107); CREATININE 2.1 MG/DL (0.55-1.30); PHOSPHORUS 5.1 MG/DL (2.5-4.9); POTASSIUM 4.1 MMOL/L (3.5-5.1); SODIUM 133 MMOL/L (136-145)
--- NOTE | 2019-08-31 07:21 | NUR ---
HAND-OFF: Report given to Zenon Shin RN/ ANISA Hinojosa.
[2019-08-31 08:00] VITALS: BP 105/45
--- NOTE | 2019-08-31 08:14 | NUR ---
NURSE NOTES: Report received from ANISA Bradshaw. Pt received in bed with no signs of cardiac or respiratory distress, denies any discomfort or pain at this time, alert and oriented x 4, verbal and able to make needs known, bed in lowest position with alarm on and breaks engaged, PICC line on KAREN patent and intact, will continue to monitor for changes and will proceed with plan of care, call light within reach at all times. Addendum: 08/31/19 at 1834 by Annika Frederick RN Correction of PICC line site: PICC line on CHRISTIN patent and intact.
[2019-08-31] MEDS: Colistin 150mg vial IVP SCH (09:24)
[2019-08-31] MEDS: Magnesium Oxide 400mg tab ORAL SCH ×3 (09:24→17:27)
--- NOTE | 2019-08-31 10:31 | NUR ---
NURSE NOTES: patient is getting IV ATB via PICC line. the pump has been keeping alarm when patient folded arm. Nurse fixed pump and guided patient trying to keep arm straight for medication. Patient got upset and said that there is nothing wrong with her arm position and refused guidance. will continue to monitor administering IV ATB medication.
--- NOTE | 2019-08-31 11:07 | Infectious Diseases Prog Note ---
"Assessment/Plan Assessment/Plan antibiotics : linezolid colistin 5..20 A 1. lumbar abscess s/p drainage with MRSA | pseudomonas 2. MRSA sepsis 3. left knee septic arthritis 4. paraplegia 5. renal failure P 1. continue linezolid 30 more days 2. d/c colistin 3. will follow up cultures Subjective Constitutional: Denies: fever, chills Gastrointestinal/Abdominal: Reports: nausea, vomiting - yesterday; Denies: diarrhea Musculoskeletal: Reports: pain - back pain Allergies: Coded Allergies: CEFTRIAXONE (Verified Allergy, Intermediate, SOB, HR-140bpm, face swollen , pt became red, 10/24/15) CODEINE (Verified Allergy, Intermediate, SWELLING, 01/03/11) LATEX (Verified Allergy, Intermediate, SWELLING, 01/03/11) PIPERACILLIN (Verified Allergy, Intermediate, Itching, 08/29/15) 08/29/15 tolerates Ceftaroline TAZOBACTAM (Verified Allergy, Intermediate, Itching, 01/29/15) POLYMYXIN B (Verified Allergy, Mild, Rash, 04/08/16) Suspected allergy reported by VANCOMYCIN (Verified Allergy, Mild, 07/15/14) ASPARAGINASE (Verified Allergy, Unknown, 01/28/14) CEFUROXIME (Unverified Allergy, Unknown, 04/19/16) IRON (Verified Allergy, Unknown, 01/28/14) LATEX, NATURAL RUBBER (Unverified Allergy, Unknown, 06/18/16) Objective Vital Signs Last 24 Hour Vital Signs Date Time Temp Pulse Resp B/P (MAP) Pulse Ox O2 Delivery O2 Flow Rate FiO2 08/31/19 09:00 Room Air 08/31/19 08:00 97.7 105 18 105/45 (65) 98 08/31/19 05:54 99.1 08/31/19 04:00 98.6 107 18 108/52 (70) 96 08/30/19 23:49 99.1 108 18 118/50 (72) 98 08/30/19 21:00 Room Air 08/30/19 20:34 98.4 114 18 105/58 (74) 99 08/30/19 16:00 98.0 107 20 109/64 (79) 95 08/30/19 12:00 98.1 96 18 117/50 (72) 96 Height (Feet): 5 Height (Inches): 5.00 Weight (Pounds): 224 Respiratory/Chest: lungs clear Cardiovascular: normal rate, regular rhythm, no gallop/murmur Abdomen: soft, non tender Extremities: no edema, other - left arm PICC Musculoskeletal: other - back with right drain Laboratory Tests Test 08/31/19 06:20 Sodium Level 133 MMOL/L (136-145) L Potassium Level 4.1 MMOL/L (3.5-5.1) Chloride Level 102 MMOL/L (98-107) Carbon Dioxide Level 21 MMOL/L (21-32) Anion Gap 10 mmol/L (5-15) Blood Urea Nitrogen 22 mg/dL (7-18) H Creatinine 2.1 MG/DL (0.55-1.30) H Estimat Glomerular Filtration Rate 30.8 mL/min (>60) Glucose Level 92 MG/DL (74-106) Calcium Level 7.2 MG/DL (8.5-10.1) L Phosphorus Level 5.1 MG/DL (2.5-4.9) H Magnesium Level 2.1 MG/DL (1.8-2.4) Current Medications Medications (Trade) Dose Ordered Sig/Pineda Route PRN Reason Start Time Stop Time Status Last Admin Dose Admin Acetaminophen (Tylenol) 650 mg Q4H PRN ORAL Mild Pain (Pain Scale 1-3) 08/20/19 10:15 09/19/19 10:14 Al Hydroxide/Mg Hydroxide (Mylanta) 30 ml Q4H PRN ORAL INDIGESTION 08/20/19 10:15 09/19/19 10:14 Albuterol Sulfate (Proventil) 2.5 mg Q4H PRN HHN Shortness of Breath 08/28/19 16:00 09/02/19 15:59 Cetylpyridinium Chloride (Cepacol) 1 lozg Q4H PRN MICHAEL sore throat 08/31/19 08:45 11/29/19 08:44 08/31/19 09:24 Chlorhexidine Gluconate (Nereida-Hex 2%) 1 applic DAILY@1999 TOPIC 08/18/19 20:00 11/16/19 19:59 08/30/19 21:33 Colistimethate Sodium (Colistin) 150 mg EVERY 12 HOURS IVP 08/27/19 13:00 09/06/19 23:59 08/31/19 09:24 Dextrose (Dextrose 50%) 25 ml Q30M PRN IV Hypoglycemia 08/19/19 13:15 11/17/19 13:14 Dextrose (Dextrose 50%) 50 ml Q30M PRN IV Hypoglycemia 08/19/19 13:15 11/17/19 13:14 Diphenhydramine HCl (Benadryl) 25 mg Q6H PRN IVP Itching 08/21/19 10:30 09/20/19 10:29 08/31/19 05:24 Hydromorphone HCl (Dilaudid) 2 mg Q4H PRN IVP Severe Pain (Pain Scale 7-10) 08/29/19 06:15 09/05/19 06:14 08/31/19 09:25 Insulin Aspart (NovoLOG) BEFORE MEALS AND HS SUBQ 08/19/19 16:30 11/17/19 16:29 Lidocaine HCl (Xylocaine 1% 30ml) 30 ml ONCE PRN INJ radiology procedure 08/29/19 13:15 08/31/19 13:14 Linezolid 300 ml @ 300 mls/hr Q12HR IVPB 08/21/19 21:00 09/30/19 23:59 08/31/19 09:26 Magnesium Oxide (Mag-Ox 400mg) 400 mg THREE TIMES A DAY ORAL 08/23/19 19:45 09/22/19 19:44 08/31/19 09:24 Ondansetron HCl (Zofran) 4 mg Q6H PRN IVP Nausea & Vomiting 08/20/19 10:15 09/19/19 10:14 08/29/19 12:08 Pantoprazole (Protonix) 40 mg DAILY ORAL 08/20/19 10:18 09/19/19 10:17 08/31/19 09:24 Deng Reyes MD August 31, 2019 11:07"
[2019-08-31 11:24] LABS: MEAN CORPUSCULAR VOLUME 82 FL (80-99); PLATELET COUNT 244 K/UL (150-450); RED BLOOD COUNT 2.55 M/UL (4.20-5.40); RED CELL DISTRIBUTION WIDTH 15.5 % (11.6-14.8); WHITE BLOOD COUNT 9.5 K/UL (4.8-10.8)
[2019-08-31 11:26] LABS: HEMOGLOBIN 6.9 G/DL (12.0-16.0)
--- NOTE | 2019-08-31 11:38 | NUR ---
NURSE NOTES: received call from LAB for critical LAB hgb 6.[address] Glover and received order of 2PRBC, hold discharge, CBC for tomorrow. order noted and carried out.
--- NOTE | 2019-08-31 11:54 | Pulmonology Progress Note ---
Subjective ROS Limited/Unobtainable: No Constitutional: Denies: fever, chills Gastrointestinal/Abdominal: Reports: nausea, vomiting - yesterday; Denies: diarrhea Musculoskeletal: Reports: pain - back pain Allergies: Coded Allergies: CEFTRIAXONE (Verified Allergy, Intermediate, SOB, HR-140bpm, face swollen , pt became red, 10/24/15) CODEINE (Verified Allergy, Intermediate, SWELLING, 01/03/11) LATEX (Verified Allergy, Intermediate, SWELLING, 01/03/11) PIPERACILLIN (Verified Allergy, Intermediate, Itching, 08/29/15) 08/29/15 tolerates Ceftaroline TAZOBACTAM (Verified Allergy, Intermediate, Itching, 01/29/15) POLYMYXIN B (Verified Allergy, Mild, Rash, 04/08/16) Suspected allergy reported by VANCOMYCIN (Verified Allergy, Mild, 07/15/14) ASPARAGINASE (Verified Allergy, Unknown, 01/28/14) CEFUROXIME (Unverified Allergy, Unknown, 04/19/16) IRON (Verified Allergy, Unknown, 01/28/14) LATEX, NATURAL RUBBER (Unverified Allergy, Unknown, 06/18/16) All Systems: reviewed and negative except above Subjective drain replaced and draining hypotensive post procedure and labs again with low HH agrees to plan and dispo Objective Last 24 Hour Vital Signs Date Time Temp Pulse Resp B/P (MAP) Pulse Ox O2 Delivery O2 Flow Rate FiO2 08/31/19 09:00 Room Air 08/31/19 08:00 97.7 105 18 105/45 (65) 98 08/31/19 05:54 99.1 08/31/19 04:00 98.6 107 18 108/52 (70) 96 08/30/19 23:49 99.1 108 18 118/50 (72) 98 08/30/19 21:00 Room Air 08/30/19 20:34 98.4 114 18 105/58 (74) 99 08/30/19 16:00 98.0 107 20 109/64 (79) 95 08/30/19 12:00 98.1 96 18 117/50 (72) 96 Intake and Output 08/30/19 08/31/19 19:00 07:00 Intake Total 1300 ml 300 ml Output Total 250 ml Balance 1050 ml 300 ml Intake Oral 1000 ml IV Total 300 ml 300 ml Other 250 ml # Voids 4 Objective GENERAL: Patient is an ill-appearing female. in pain HEENT: Negative. NECK: Supple. LUNGS: Good air entry. CARDIAC: S1, S2. Regular rate and rhythm. ABDOMEN: Soft, nontender. EXTREMITIES: With significant atrophy. Laboratory Tests 08/31/19 06:20: White Blood Count 9.5, Red Blood Count 2.55L, Hemoglobin 6.9*L, Hematocrit 21.0L , Mean Corpuscular Volume 82, Mean Corpuscular Hemoglobin 26.9L, Mean Corpuscular Hemoglobin Concent 32.6, Red Cell Distribution Width 15.5H, Platelet Count 244, Mean Platelet Volume 4.9L, Neutrophils (%) (Auto) , Lymphocytes (%) (Auto) , Monocytes (%) (Auto) , Eosinophils (%) (Auto) , Basophils (%) (Auto) , Differential Total Cells Counted 100, Neutrophils % ( Manual) 73, Lymphocytes % (Manual) 21, Monocytes % (Manual) 3, Eosinophils % ( Manual) 2, Basophils % (Manual) 0, Band Neutrophils 1, Platelet Estimate Adequate, Platelet Morphology Normal, Hypochromasia 4+, Anisocytosis 1+, Spherocytes 2+, Sodium Level 133L, Potassium Level 4.1, Chloride Level 102, Carbon Dioxide Level 21, Anion Gap 10, Blood Urea Nitrogen 22H, Creatinine 2.1H , Estimat Glomerular Filtration Rate 30.8, Glucose Level 92, Calcium Level 7.2L , Phosphorus Level 5.1H, Magnesium Level 2.1 Current Medications Medications (Trade) Dose Ordered Sig/Pineda Route PRN Reason Start Time Stop Time Status Last Admin Dose Admin Acetaminophen (Tylenol) 650 mg Q4H PRN ORAL Mild Pain (Pain Scale 1-3) 08/20/19 10:15 09/19/19 10:14 Al Hydroxide/Mg Hydroxide (Mylanta) 30 ml Q4H PRN ORAL INDIGESTION 08/20/19 10:15 09/19/19 10:14 Albuterol Sulfate (Proventil) 2.5 mg Q4H PRN HHN Shortness of Breath 08/28/19 16:00 09/02/19 15:59 Cetylpyridinium Chloride (Cepacol) 1 lozg Q4H PRN MICHAEL sore throat 08/31/19 08:45 11/29/19 08:44 08/31/19 09:24 Chlorhexidine Gluconate (Nereida-Hex 2%) 1 applic DAILY@2000 TOPIC 08/18/19 20:00 11/16/19 19:59 08/30/19 21:33 Dextrose (Dextrose 50%) 25 ml Q30M PRN IV Hypoglycemia 08/19/19 13:15 11/17/19 13:14 Dextrose (Dextrose 50%) 50 ml Q30M PRN IV Hypoglycemia 08/19/19 13:15 11/17/19 13:14 Diphenhydramine HCl (Benadryl) 25 mg Q6H PRN IVP Itching 08/21/19 10:30 09/20/19 10:29 08/31/19 05:24 Hydromorphone HCl (Dilaudid) 2 mg Q4H PRN IVP Severe Pain (Pain Scale 7-10) 08/29/19 06:15 09/05/19 06:14 08/31/19 09:25 Insulin Aspart (NovoLOG) BEFORE MEALS AND HS SUBQ 08/19/19 16:30 11/17/19 16:29 Lidocaine HCl (Xylocaine 1% 30ml) 30 ml ONCE PRN INJ radiology procedure 08/29/19 13:15 08/31/19 13:14 Linezolid 300 ml @ 300 mls/hr Q12HR IVPB 08/21/19 21:00 09/30/19 23:59 08/31/19 09:26 Magnesium Oxide (Mag-Ox 400mg) 400 mg THREE TIMES A DAY ORAL 08/23/19 19:45 09/22/19 19:44 08/31/19 09:24 Ondansetron HCl (Zofran) 4 mg Q6H PRN IVP Nausea & Vomiting 08/20/19 10:15 09/19/19 10:14 08/29/19 12:08 Pantoprazole (Protonix) 40 mg DAILY ORAL 08/20/19 10:18 09/19/19 10:17 08/31/19 09:24 Assessment/Plan Assessment/Plan IMPRESSION: Multiple abscesses s/p aspiration, hyponatremia, hyperkalemia, acute renal failure, shortness of breath, dyspnea, leukocytosis, anemia, thrombocytosis. PLAN PICC - care linezolid IV concern for gi bleeding transfuse; hold dc pain control poor surgical candidate dc planning with home HH and IV and drain care when stable monitor vitals impression, plan, and exam edited and reviewed in detail care discussed with Thanh Garcia MD August 31, 2019 11:54
[2019-08-31] MEDS ORDERED: NS 275ml ONE (12:45)
[2019-08-31] MEDS ORDERED: Tubing IV Secondary IV ONE (12:45)
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
--- NOTE | 2019-08-31 14:33 | General Progress Note ---
Assessment/Plan Problem List: (1) Pain ICD Codes: R52 - Pain, unspecified SNOMED: 42631173 (2) Osteomyelitis ICD Codes: M86.9 - Osteomyelitis, unspecified SNOMED: 93227410 (3) Abscess ICD Codes: L02.91 - Abscess SNOMED: 457938115 (4) Paraplegia ICD Codes: G82.20 - Paraplegia SNOMED: 51545502 (5) Asthma ICD Codes: J45.909 - Unspecified asthma, uncomplicated SNOMED: 737501653 (6) Anemia ICD Codes: D64.9 - Anemia, unspecified SNOMED: 959383974 (7) Acute renal failure ICD Codes: N17.9 - Acute kidney failure, unspecified SNOMED: 07909153 (8) right hip wound infecion/ulcer/osteo (9) Sepsis ICD Codes: A41.9 - Sepsis SNOMED: 95600186 (10) Cellulitis ICD Codes: L03.90 - Cellulitis, unspecified SNOMED: 420702304 (11) Abdominal pain ICD Codes: R10.9 - Unspecified abdominal pain SNOMED: 80312837 (12) Dehydration ICD Codes: E86.0 - Dehydration SNOMED: 98693795 Status: stable, progressing Assessment/Plan: cont iv abx per id monitor output from drains benadryl for itching pain rx antiemetics monitor h/h transfuse as needed check stool ob PPI monitor cr dvt/stress ulcer prophylaxis Subjective ROS Limited/Unobtainable: No Constitutional: Reports: malaise, weakness HEENT: Reports: no symptoms Cardiovascular: Reports: no symptoms Respiratory: Reports: cough Gastrointestinal/Abdominal: Reports: no symptoms Genitourinary: Reports: no symptoms 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: Reports: pre-existing deficit, weakness Endocrine: Reports: no symptoms Hematologic/Lymphatic: Reports: anemia Allergies: Coded Allergies: CEFTRIAXONE (Verified Allergy, Intermediate, SOB, HR-140bpm, face swollen , pt became red, 10/24/15) CODEINE (Verified Allergy, Intermediate, SWELLING, 01/03/11) LATEX (Verified Allergy, Intermediate, SWELLING, 01/03/11) PIPERACILLIN (Verified Allergy, Intermediate, Itching, 08/29/15) 08/29/15 tolerates Ceftaroline TAZOBACTAM (Verified Allergy, Intermediate, Itching, 01/29/15) POLYMYXIN B (Verified Allergy, Mild, Rash, 04/08/16) Suspected allergy reported by VANCOMYCIN (Verified Allergy, Mild, 07/15/14) ASPARAGINASE (Verified Allergy, Unknown, 01/28/14) CEFUROXIME (Unverified Allergy, Unknown, 04/19/16) IRON (Verified Allergy, Unknown, 01/28/14) LATEX, NATURAL RUBBER (Unverified Allergy, Unknown, 06/18/16) All Systems: reviewed and negative except above Subjective events noted. decreased h/h. no signs of bleeding. no melena or brbpr. no hematuria or hematemesis. Cr also up Objective Last 24 Hour Vital Signs Date Time Temp Pulse Resp B/P (MAP) Pulse Ox O2 Delivery O2 Flow Rate FiO2 08/31/19 09:00 Room Air 08/31/19 08:00 97.7 105 18 105/45 (65) 98 08/31/19 05:54 99.1 08/31/19 04:00 98.6 107 18 108/52 (70) 96 08/30/19 23:49 99.1 108 18 118/50 (72) 98 08/30/19 21:00 Room Air 08/30/19 20:34 98.4 114 18 105/58 (74) 99 08/30/19 16:00 98.0 107 20 109/64 (79) 95 Intake and Output 08/30/19 08/31/19 19:00 07:00 Intake Total 1300 ml 300 ml Output Total 250 ml Balance 1050 ml 300 ml Intake Oral 1000 ml IV Total 300 ml 300 ml Other 250 ml # Voids 4 Laboratory Tests 08/31/19 06:20: White Blood Count 9.5, Red Blood Count 2.55L, Hemoglobin 6.9*L, Hematocrit 21.0L , Mean Corpuscular Volume 82, Mean Corpuscular Hemoglobin 26.9L, Mean Corpuscular Hemoglobin Concent 32.6, Red Cell Distribution Width 15.5H, Platelet Count 244, Mean Platelet Volume 4.9L, Neutrophils (%) (Auto) , Lymphocytes (%) (Auto) , Monocytes (%) (Auto) , Eosinophils (%) (Auto) , Basophils (%) (Auto) , Differential Total Cells Counted 100, Neutrophils % ( Manual) 73, Lymphocytes % (Manual) 21, Monocytes % (Manual) 3, Eosinophils % ( Manual) 2, Basophils % (Manual) 0, Band Neutrophils 1, Platelet Estimate Adequate, Platelet Morphology Normal, Hypochromasia 4+, Anisocytosis 1+, Spherocytes 2+, Sodium Level 133L, Potassium Level 4.1, Chloride Level 102, Carbon Dioxide Level 21, Anion Gap 10, Blood Urea Nitrogen 22H, Creatinine 2.1H , Estimat Glomerular Filtration Rate 30.8, Glucose Level 92, Calcium Level 7.2L , Phosphorus Level 5.1H, Magnesium Level 2.1 Height (Feet): 5 Height (Inches): 5.00 Weight (Pounds): 224 Objective General Appearance: WD/WN, alert EENT: normal ENT inspection Neck: non-tender, normal alignment, supple Cardiovascular: normal peripheral pulses, normal rate, regular rhythm Respiratory/Chest: chest wall non-tender, lungs clear, normal breath sounds, no respiratory distress Abdomen: normal bowel sounds, non tender, soft, no organomegaly Edema: no edema noted Arm (L), no edema noted Arm (R), no edema noted Leg (L), no edema noted Leg (R), no edema noted Pedal (L), no edema noted Pedal (R), no edema noted Generalized Neurologic: motor weakness, sensory deficit Skin: normal pigmentation Lymphatic: normal anterior cervical (L), normal anterior cervical (R) Jacques Chanel MD August 31, 2019 14:33
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
[2019-08-31 16:00] VITALS: BP 101/55
--- NOTE | 2019-08-31 16:09 | NUR ---
CASE MANAGEMENT:REVIEW 08/29/19 SI:S/P DRAINAGE LUMBAR ABSCESS LUMBAR SPINE ABSCESS . LEFT KNEE SEPTIC ARTHRITIS. MRSA SEPSIS. VRE + CARRIER 99.1 118 24 91/59 98% ON RA PT/INR 13.1/1.2 PTT 38 NA+ 133 CA+ 7.4 MG 1.3 IS:IV MG SULFATE X2 BAGS IVF NS BOLUS X1 IV COLISTIN BID MAG-OX PO TID IV LINEZOLID BID HRS PROTONIX PO QD \:4E MED SURG STATUS DCP: HOME WHEN STABLE PATIENT TO DC HOME WITH [facility] CASE MANAGEMENT:REVIEW 08/31/19 SI:ANEMIA WITH ACTIVE GI BLEED S/P DRAINAGE LUMBAR ABSCESS LUMBAR SPINE ABSCESS . LEFT KNEE SEPTIC ARTHRITIS. MRSA SEPSIS. VRE + CARRIER . PARAPLEGIA 97.7 105 18 105/45 98% ON RA H/H 6.9/21.0 NA+ 133 BUN 22 CREAT 2.1 CA+ 7.2 PHOS 5.1 IS:IV COLISTIN BID MAG-OX PO TID IV LINEZOLID BID HRS PROTONIX PO QD IV DILAUDID Q4HR/PRN SYLVIA-HEX 2% TP QD \:4E MED SURG STATUS DCP: HOME WHEN STABLE PATIENT TO DC HOME WITH [facility] PLAN: TRANSFUSE IN PROCESS HOLD DC TODAY LABS IN AM POSSIBLE GI PROCEDURE OB STOOL -PENDING COLLECTION
[2019-08-31] MEDS: Docusate 100mg cap ORAL SCH (17:27)
--- NOTE | 2019-08-31 18:35 | NUR ---
NURSE NOTES: Patient refused accu checks for today's shift, offered x 3 and explained risk and benefits.
--- NOTE | 2019-08-31 19:13 | NUR ---
HAND-OFF: Report given to ANISA Cherry.
[2019-08-31] MEDS ORDERED: DiphenhydrAMINE 50mg/ml Inj IVP SCH ×2 (19:15→21:15)
--- NOTE | 2019-08-31 19:15 | NUR ---
NURSE NOTES: Pt. received from ANISA Yarbrough. Pt. AAOx4, on room air, breathing is even and unlabored, no complaints of pain at this time. PICC DEYSI currently running blood transfusion, pt. tolerating well. Uresil drainage bag to right bag noted, no output; previously with 300cc output during day shift. Bed is low and locked, side railsx2 up, bed alarm active, and call light in reach. Will continue to monitor.
[2019-08-31 20:00] VITALS: BP 110/59
[2019-08-31] MEDS: Miralax 17gm pkt ORAL SCH (21:00)
--- NOTE | 2019-08-31 21:10 | NUR ---
NURSE NOTES: Pt. with itching, reported to Dr. Glover and received orders for 25mg Benadryl. Will implement and continue to monitor.
[2019-08-31] MEDS: Dyna-Hex 2% Top Sol 2oz TOPIC SCH (21:34)
--- NOTE | 2019-08-31 22:30 | NUR ---
NURSE NOTES: Pt. completed blood transfusion, VSS stable.
[2019-08-31] MEDS: Pantoprazole Inj IVP SCH (22:40)
[2019-09-01] VITALS: BP 105/49
[2019-09-01 04:00] VITALS: BP 111/55
[2019-09-01] MEDS: DiphenhydrAMINE 50mg/ml Inj IVP PRN ×4 (04:20→22:33)
[2019-09-01 06:29] LABS: BASOPHILS % (AUTO) 0.4 % (0.0-2.0); EOSINOPHILS % (AUTO) 1.9 % (0.0-3.0); HEMATOCRIT 31.6 % (37.0-47.0); HEMOGLOBIN 10.7 G/DL (12.0-16.0); LYMPHOCYTES % (AUTO) 16.8 % (20.0-45.0); MEAN CORPUSCULAR VOLUME 83 FL (80-99); MONOCYTES % (AUTO) 2.5 % (1.0-10.0); NEUTROPHILS % (AUTO) 78.5 % (45.0-75.0); PLATELET COUNT 274 K/UL (150-450); RED BLOOD COUNT 3.82 M/UL (4.20-5.40); RED CELL DISTRIBUTION WIDTH 14.5 % (11.6-14.8); WHITE BLOOD COUNT 12.8 K/UL (4.8-10.8)
[2019-09-01] MEDS: NovoLOG Insulin Flexpen SUBQ SCH ×4 (06:30→21:00)
--- NOTE | 2019-09-01 06:49 | NUR ---
NURSE NOTES: Pt. noted to have drainage tube to back dislodged, attempted to remove device from skin but patient refused. Site was draining scant amount, dressed with 4x4 and tegaderm. Charge nurse aware.
--- NOTE | 2019-09-01 07:44 | NUR ---
HAND-OFF: Report given to ANISA Mosquera and ANISA Bello.
--- NOTE | 2019-09-01 07:45 | NUR ---
NURSE NOTES: Received patient in bed,awake, not in respiratory/cardiac distress. Resting in bed, PICC line on left arm is intact, dressing is intact, no bleeding. colostomy on left abdomen is intact and draining brownish stool.Call light within reach. Received endorsement from the cnc machinist 2nd shift that drainage cath was out. RN checked the back,no bleeding noted. Dr. Glover was informed by cnc machinist 2nd shift. Will continue plan of care.
[2019-09-01 08:00] VITALS: BP 104/56
[2019-09-01 08:06] LABS: ANION GAP 12 mmol/L (5-15); BLOOD UREA NITROGEN 27 mg/dL (7-18); CALCIUM 7.8 MG/DL (8.5-10.1); CARBON DIOXIDE 21 MMOL/L (21-32); CHLORIDE 98 MMOL/L (98-107); CREATININE 2.6 MG/DL (0.55-1.30); POTASSIUM 4.3 MMOL/L (3.5-5.1); SODIUM 131 MMOL/L (136-145)
[2019-09-01 08:12] LABS: CREATINE KINASE 13 U/L (26-308)
[2019-09-01] MEDS: Docusate 100mg cap ORAL SCH ×2 (08:58→18:00)
--- NOTE | 2019-09-01 09:05 | Pulmonology Progress Note ---
Subjective ROS Limited/Unobtainable: No Constitutional: Denies: fever, chills Gastrointestinal/Abdominal: Reports: nausea, vomiting - yesterday; Denies: diarrhea Musculoskeletal: Reports: pain - back pain Allergies: Coded Allergies: CEFTRIAXONE (Verified Allergy, Intermediate, SOB, HR-140bpm, face swollen , pt became red, 10/24/15) CODEINE (Verified Allergy, Intermediate, SWELLING, 01/03/11) LATEX (Verified Allergy, Intermediate, SWELLING, 01/03/11) PIPERACILLIN (Verified Allergy, Intermediate, Itching, 08/29/15) 08/29/15 tolerates Ceftaroline TAZOBACTAM (Verified Allergy, Intermediate, Itching, 01/29/15) POLYMYXIN B (Verified Allergy, Mild, Rash, 04/08/16) Suspected allergy reported by VANCOMYCIN (Verified Allergy, Mild, 07/15/14) ASPARAGINASE (Verified Allergy, Unknown, 01/28/14) CEFUROXIME (Unverified Allergy, Unknown, 04/19/16) IRON (Verified Allergy, Unknown, 01/28/14) LATEX, NATURAL RUBBER (Unverified Allergy, Unknown, 06/18/16) All Systems: reviewed and negative except above Subjective drain again dislodged hypotensive post procedure; better and labs again with low HH- transfused renal function worsening Objective Last 24 Hour Vital Signs Date Time Temp Pulse Resp B/P (MAP) Pulse Ox O2 Delivery O2 Flow Rate FiO2 09/01/19 04:00 97.4 105 18 111/55 (73) 96 09/01/19 00:00 97.9 109 18 105/49 (67) 97 08/31/19 21:00 Room Air 08/31/19 20:00 98.2 109 20 110/59 (76) 99 08/31/19 17:58 96.8 08/31/19 16:00 96.8 110 18 101/55 (70) 96 Intake and Output 08/31/19 09/01/19 19:00 07:00 Intake Total 600 ml 1133 ml Output Total 330 ml Balance 270 ml 1133 ml Intake Oral 300 ml 200 ml IV Total 300 ml 933 ml Other 330 ml # Voids 1 Objective GENERAL: Patient is an ill-appearing female. in pain HEENT: Negative. NECK: Supple. LUNGS: Good air entry. CARDIAC: S1, S2. Regular rate and rhythm. ABDOMEN: Soft, nontender. EXTREMITIES: With significant atrophy. Laboratory Tests 09/01/19 04:30: White Blood Count 12.8H, Red Blood Count 3.82L, Hemoglobin 10.7#L, Hematocrit 31.6#L, Mean Corpuscular Volume 83, Mean Corpuscular Hemoglobin 27.9, Mean Corpuscular Hemoglobin Concent 33.7, Red Cell Distribution Width 14.5, Platelet Count 274, Mean Platelet Volume 5.4L, Neutrophils (%) (Auto) 78.5H, Lymphocytes (%) (Auto) 16.8L, Monocytes (%) (Auto) 2.5, Eosinophils (%) (Auto) 1.9, Basophils (%) (Auto) 0.4, Sodium Level 131L, Potassium Level 4.3, Chloride Level 98, Carbon Dioxide Level 21, Anion Gap 12, Blood Urea Nitrogen 27H, Creatinine 2.6H, Estimat Glomerular Filtration Rate 24.0, Glucose Level 86, Uric Acid 9.2H, Calcium Level 7.8L, Total Creatine Kinase 13L Current Medications Medications (Trade) Dose Ordered Sig/Pineda Route PRN Reason Start Time Stop Time Status Last Admin Dose Admin Acetaminophen (Tylenol) 650 mg Q4H PRN ORAL Mild Pain (Pain Scale 1-3) 08/20/19 10:15 09/19/19 10:14 Al Hydroxide/Mg Hydroxide (Mylanta) 30 ml Q4H PRN ORAL INDIGESTION 08/20/19 10:15 09/19/19 10:14 Albuterol Sulfate (Proventil) 2.5 mg Q4H PRN HHN Shortness of Breath 08/28/19 16:00 09/02/19 15:59 Cetylpyridinium Chloride (Cepacol) 1 lozg Q4H PRN MICHAEL sore throat 08/31/19 08:45 11/29/19 08:44 08/31/19 16:43 Chlorhexidine Gluconate (Nereida-Hex 2%) 1 applic DAILY@2000 TOPIC 08/18/19 20:00 11/16/19 19:59 08/31/19 21:34 Dextrose (Dextrose 50%) 25 ml Q30M PRN IV Hypoglycemia 08/19/19 13:15 11/17/19 13:14 Dextrose (Dextrose 50%) 50 ml Q30M PRN IV Hypoglycemia 08/19/19 13:15 11/17/19 13:14 Diphenhydramine HCl (Benadryl) 25 mg Q6H PRN IVP Itching 08/21/19 10:30 09/20/19 10:29 09/01/19 04:20 Docusate Sodium (Colace) 100 mg TWICE A DAY ORAL 08/31/19 18:00 09/30/19 17:59 08/31/19 17:27 Hydromorphone HCl (Dilaudid) 2 mg Q4H PRN IVP Severe Pain (Pain Scale 7-10) 08/29/19 06:15 09/05/19 06:14 09/01/19 08:52 Insulin Aspart (NovoLOG) BEFORE MEALS AND HS SUBQ 08/19/19 16:30 11/17/19 16:29 Linezolid 300 ml @ 300 mls/hr Q12HR IVPB 08/21/19 21:00 09/30/19 23:59 08/31/19 22:39 Magnesium Oxide (Mag-Ox 400mg) 400 mg THREE TIMES A DAY ORAL 08/23/19 19:45 09/22/19 19:44 08/31/19 17:27 Ondansetron HCl (Zofran) 4 mg Q6H PRN IVP Nausea & Vomiting 08/20/19 10:15 09/19/19 10:14 08/29/19 12:08 Pantoprazole (Protonix) 40 mg EVERY 12 HOURS IVP 08/31/19 21:00 09/30/19 20:59 08/31/19 22:40 Polyethylene Glycol (Miralax) 17 gm BEDTIME ORAL 08/31/19 21:00 09/30/19 20:59 Potassium Chloride 30 meq/ Sodium Chloride 1,015 ml @ 100 mls/hr Q10H9M IV 08/31/19 16:00 09/30/19 15:59 09/01/19 04:06 Assessment/Plan Assessment/Plan IMPRESSION: Multiple abscesses s/p aspiration, hyponatremia, hyperkalemia, acute renal failure, shortness of breath, dyspnea, leukocytosis, anemia, thrombocytosis. ARF PLAN PICC - care linezolid IV concern for gi bleeding- gi called transfused pain control poor surgical candidate dc planning with home HH and IV and drain care when stable monitor vitals impression, plan, and exam edited and reviewed in detail care discussed with Thanh Garcia MD September 01, 2019 09:05
[2019-09-01] MEDS: Pantoprazole Inj IVP SCH ×2 (09:07→21:43)
[2019-09-01] MEDS: Magnesium Oxide 400mg tab ORAL SCH ×3 (09:08→18:28)
--- NOTE | 2019-09-01 09:30 | NUR ---
NURSE NOTES: Offered wound care but patient said " I am not ready. I will let you know when I'm ready." Will follow up.
--- NOTE | 2019-09-01 11:33 | General Progress Note ---
Assessment/Plan Problem List: (1) Pain ICD Codes: R52 - Pain, unspecified SNOMED: 30745529 (2) Osteomyelitis ICD Codes: M86.9 - Osteomyelitis, unspecified SNOMED: 65425537 (3) Abscess ICD Codes: L02.91 - Abscess SNOMED: 578474312 (4) Paraplegia ICD Codes: G82.20 - Paraplegia SNOMED: 68640508 (5) Asthma ICD Codes: J45.909 - Unspecified asthma, uncomplicated SNOMED: 240848959 (6) Anemia ICD Codes: D64.9 - Anemia, unspecified SNOMED: 099754334 (7) Acute renal failure ICD Codes: N17.9 - Acute kidney failure, unspecified SNOMED: 39404003 (8) right hip wound infecion/ulcer/osteo (9) Sepsis ICD Codes: A41.9 - Sepsis SNOMED: 21971735 (10) Cellulitis ICD Codes: L03.90 - Cellulitis, unspecified SNOMED: 644181106 (11) Abdominal pain ICD Codes: R10.9 - Unspecified abdominal pain SNOMED: 66112656 (12) Dehydration ICD Codes: E86.0 - Dehydration SNOMED: 50339112 Status: stable, progressing Assessment/Plan: cont iv abx per id monitor output from drains benadryl for itching pain rx antiemetics monitor h/h transfuse as needed check stool ob PPI monitor cr dvt/stress ulcer prophylaxis Subjective ROS Limited/Unobtainable: No Constitutional: Reports: malaise, weakness HEENT: Reports: no symptoms Cardiovascular: Reports: no symptoms Respiratory: Reports: no symptoms Gastrointestinal/Abdominal: Reports: abdominal pain Genitourinary: Reports: no symptoms 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: Reports: numbness, paresthesia, pre-existing deficit, tingling, weakness Endocrine: Reports: no symptoms Hematologic/Lymphatic: Reports: anemia Allergies: Coded Allergies: CEFTRIAXONE (Verified Allergy, Intermediate, SOB, HR-140bpm, face swollen , pt became red, 10/24/15) CODEINE (Verified Allergy, Intermediate, SWELLING, 01/03/11) LATEX (Verified Allergy, Intermediate, SWELLING, 01/03/11) PIPERACILLIN (Verified Allergy, Intermediate, Itching, 08/29/15) 08/29/15 tolerates Ceftaroline TAZOBACTAM (Verified Allergy, Intermediate, Itching, 01/29/15) POLYMYXIN B (Verified Allergy, Mild, Rash, 04/08/16) Suspected allergy reported by VANCOMYCIN (Verified Allergy, Mild, 07/15/14) ASPARAGINASE (Verified Allergy, Unknown, 01/28/14) CEFUROXIME (Unverified Allergy, Unknown, 04/19/16) IRON (Verified Allergy, Unknown, 01/28/14) LATEX, NATURAL RUBBER (Unverified Allergy, Unknown, 06/18/16) Subjective events noted. h/h better after transfusion. no signs of bleeding. no melena or brbpr. no hematuria or hematemesis. Objective Last 24 Hour Vital Signs Date Time Temp Pulse Resp B/P (MAP) Pulse Ox O2 Delivery O2 Flow Rate FiO2 09/01/19 08:00 97.5 100 20 104/56 (72) 100 09/01/19 04:00 97.4 105 18 111/55 (73) 96 09/01/19 00:00 97.9 109 18 105/49 (67) 97 08/31/19 21:00 Room Air 08/31/19 20:00 98.2 109 20 110/59 (76) 99 08/31/19 17:58 96.8 08/31/19 16:00 96.8 110 18 101/55 (70) 96 Intake and Output 08/31/19 09/01/19 18:59 06:59 Intake Total 600 ml 1033 ml Output Total 330 ml Balance 270 ml 1033 ml Intake Oral 300 ml 200 ml IV Total 300 ml 833 ml Other 330 ml # Voids 1 Laboratory Tests 09/01/19 04:30: White Blood Count 12.8H, Red Blood Count 3.82L, Hemoglobin 10.7#L, Hematocrit 31.6#L, Mean Corpuscular Volume 83, Mean Corpuscular Hemoglobin 27.9, Mean Corpuscular Hemoglobin Concent 33.7, Red Cell Distribution Width 14.5, Platelet Count 274, Mean Platelet Volume 5.4L, Neutrophils (%) (Auto) 78.5H, Lymphocytes (%) (Auto) 16.8L, Monocytes (%) (Auto) 2.5, Eosinophils (%) (Auto) 1.9, Basophils (%) (Auto) 0.4, Sodium Level 131L, Potassium Level 4.3, Chloride Level 98, Carbon Dioxide Level 21, Anion Gap 12, Blood Urea Nitrogen 27H, Creatinine 2.6H, Estimat Glomerular Filtration Rate 24.0, Glucose Level 86, Uric Acid 9.2H, Calcium Level 7.8L, Total Creatine Kinase 13L Height (Feet): 5 Height (Inches): 5.00 Weight (Pounds): 224 Objective General Appearance: WD/WN, alert EENT: normal ENT inspection Neck: non-tender, normal alignment, supple Cardiovascular: normal peripheral pulses, normal rate, regular rhythm Respiratory/Chest: chest wall non-tender, lungs clear, normal breath sounds, no respiratory distress Abdomen: normal bowel sounds, non tender, soft, no organomegaly Edema: no edema noted Arm (L), no edema noted Arm (R), no edema noted Leg (L), no edema noted Leg (R), no edema noted Pedal (L), no edema noted Pedal (R), no edema noted Generalized Neurologic: motor weakness, sensory deficit Skin: normal pigmentation Lymphatic: normal anterior cervical (L), normal anterior cervical (R) Jacques Chanel MD September 01, 2019 11:33
[2019-09-01 12:00] VITALS: BP 103/61
[2019-09-01] MEDS ORDERED: Morphine Sulfate 4mg/ml Inj (IV USE ONLY) IVP ONE (14:30)
--- NOTE | 2019-09-01 14:30 | NUR ---
NURSE NOTES: Bladder scan done with 121ml urine. RN instrument mechanics supervisor spoke to Dr. Tierney and received bya cath insertion order. RN explained about bay insertion and she said " I had bay catheter before and it was messed up,bay catheter did not stay in. I pee enough and drink enough."Will follow up with Dr. Tierney.
--- NOTE | 2019-09-01 15:17 | NUR ---
NURSE NOTES: RN spoke to Dr. Tierney and relayed patient refused bay cath insertion with new order to apply purewick and do bladder scan in am @9:00am. Will follow the order.
[2019-09-01 16:00] VITALS: BP 106/68
--- NOTE | 2019-09-01 16:30 | NUR ---
NURSE NOTES: Offered jovanna and explained plan of care but she stated that " It is not gonna stay. I don't want it." RN explained the risks and benefits. Wound care done and pictures obtained.
--- NOTE | 2019-09-01 18:00 | NUR ---
NURSE NOTES: RN followed up with Dr. Glover regarding drainage cath with new order to do CT guided drainage cath placement on Tuesday by IR.
--- NOTE | 2019-09-01 19:30 | NUR ---
HAND-OFF: Report given to Terrence LANGE and endorsed plan of care.
--- NOTE | 2019-09-01 19:36 | NUR ---
NURSE NOTES: Patient in bed, awake, alert and verbally responsive. Able to make needs known. Respiration is even and unlabored. Skin is warm and dry to touch, noted with multiple dressing. Picc line noted, iv fluid is infusing as ordered. Bed in low and locked position. Provided safe environment. Call light is at bedside. Will continue plan of care.
[2019-09-01 20:00] VITALS: BP 114/50
[2019-09-01] MEDS: Dyna-Hex 2% Top Sol 2oz TOPIC SCH (20:00)
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
[2019-09-01] MEDS: Miralax 17gm pkt ORAL SCH (21:00)
--- NOTE | 2019-09-01 22:00 | NUR ---
NURSE NOTES: Medications given, refused accu check and colace. Picc line dressing enforced. Refuses purewick to to collect urine. Will explain to patient regarding morning intervention of post void risidual. Call light is at bedside.
[2019-09-02] VITALS: BP 105/57
--- NOTE | 2019-09-02 02:59 | NUR ---
NURSE NOTES: Patient is awake, alert. Refused purewick. Changed chucks, refuse dressing change. Noted now dressing on Uresil, no drainage noted.
--- NOTE | 2019-09-02 03:01 | Diagnostic Imaging Report ---
EXAM: US Retroperitoneal Complete, Renal CLINICAL HISTORY: RENAL-A TECHNIQUE: Real-time complete ultrasound of the retroperitoneum with image documentation. COMPARISON: CT abdomen and pelvis 07/26/17 FINDINGS: Limitations: Study limited due to patient immobility. Right kidney: Unremarkable kidneys. Right kidney 11.5 cm No stones. No hydronephrosis. Left kidney: See above. Bladder: Decompressed urinary bladder, not able to be definitively imaged. Other findings: Hepatic steatosis, correlate to exclude steatohepatitis. Left 10.5 cm IMPRESSION: 1. Study limited due to patient immobility. 2. Decompressed urinary bladder, not able to be definitively imaged. 3. Unremarkable kidneys. 4. No acute abnormality definitively identified to account for patient presentation. 5. Hepatic steatosis, correlate to exclude steatohepatitis.
[2019-09-02] MEDS: DiphenhydrAMINE 50mg/ml Inj IVP PRN ×3 (04:38→17:18)
--- NOTE | 2019-09-02 04:56 | NUR ---
NURSE NOTES: Picc line flush done, unable to draw out blood. Will re-attempt. Call light is at bedside. Will continue plan of care.
[2019-09-02] MEDS: NovoLOG Insulin Flexpen SUBQ SCH ×4 (05:46→20:31)
--- NOTE | 2019-09-02 07:37 | NUR ---
HAND-OFF: Report given to ANISA Issa.
--- NOTE | 2019-09-02 07:40 | NUR ---
NURSE NOTES: Received report from ANISA Ocampo. Patient A&Ox4. On room air, no signs of distress or labored breathing. PICC dry, intact, and infusing fluids. Colostomy right lower quadrant intact. Uresil attached at patient's mid-right back, not draining. Bed in lowest position with call light in reach. Will continue with plan of care.
[2019-09-02 08:00] VITALS: BP 95/47
--- NOTE | 2019-09-02 08:05 | Pulmonology Progress Note ---
Subjective ROS Limited/Unobtainable: No Constitutional: Denies: fever, chills Gastrointestinal/Abdominal: Reports: nausea, vomiting - yesterday; Denies: diarrhea Musculoskeletal: Reports: pain - back pain Allergies: Coded Allergies: CEFTRIAXONE (Verified Allergy, Intermediate, SOB, HR-140bpm, face swollen , pt became red, 10/24/15) CODEINE (Verified Allergy, Intermediate, SWELLING, 01/03/11) LATEX (Verified Allergy, Intermediate, SWELLING, 01/03/11) PIPERACILLIN (Verified Allergy, Intermediate, Itching, 08/29/15) 08/29/15 tolerates Ceftaroline TAZOBACTAM (Verified Allergy, Intermediate, Itching, 01/29/15) POLYMYXIN B (Verified Allergy, Mild, Rash, 04/08/16) Suspected allergy reported by VANCOMYCIN (Verified Allergy, Mild, 07/15/14) ASPARAGINASE (Verified Allergy, Unknown, 01/28/14) CEFUROXIME (Unverified Allergy, Unknown, 04/19/16) IRON (Verified Allergy, Unknown, 01/28/14) LATEX, NATURAL RUBBER (Unverified Allergy, Unknown, 06/18/16) All Systems: reviewed and negative except above Subjective drain out low HH- improved renal function worsening- repeat pending CK pending Objective Last 24 Hour Vital Signs Date Time Temp Pulse Resp B/P (MAP) Pulse Ox O2 Delivery O2 Flow Rate FiO2 09/02/19 00:00 97.6 100 20 105/57 (73) 96 09/01/19 22:03 Room Air 09/01/19 20:00 97.0 103 22 114/50 (71) 95 09/01/19 18:58 98.2 09/01/19 16:00 98.2 104 20 106/68 (81) 98 09/01/19 12:00 97.7 95 18 103/61 (75) 99 09/01/19 09:00 Room Air Intake and Output 09/01/19 09/02/19 19:00 07:00 Intake Total 500 ml 1300 ml Output Total 321 ml Balance 179 ml 1300 ml Intake Oral 700 ml IV Total 500 ml 600 ml Post Void Residual 121 ml Stool Total 200 ml Bladder Scan Volume Amount 101-150 ml # Voids 2 Objective GENERAL: Patient is an ill-appearing female. in pain HEENT: Negative. NECK: Supple. LUNGS: Good air entry. CARDIAC: S1, S2. Regular rate and rhythm. ABDOMEN: Soft, nontender. EXTREMITIES: With significant atrophy. Current Medications Medications (Trade) Dose Ordered Sig/Pineda Route PRN Reason Start Time Stop Time Status Last Admin Dose Admin Acetaminophen (Tylenol) 650 mg Q4H PRN ORAL Mild Pain (Pain Scale 1-3) 08/20/19 10:15 09/19/19 10:14 Al Hydroxide/Mg Hydroxide (Mylanta) 30 ml Q4H PRN ORAL INDIGESTION 08/20/19 10:15 09/19/19 10:14 Albuterol Sulfate (Proventil) 2.5 mg Q4H PRN HHN Shortness of Breath 08/28/19 16:00 09/02/19 15:59 Allopurinol (Zyloprim) 100 mg DAILY ORAL 09/02/19 09:00 10/02/19 08:59 Cetylpyridinium Chloride (Cepacol) 1 lozg Q4H PRN MICHAEL sore throat 08/31/19 08:45 11/29/19 08:44 09/02/19 04:37 Chlorhexidine Gluconate (Nereida-Hex 2%) 1 applic DAILY@2000 TOPIC 08/18/19 20:00 11/16/19 19:59 08/31/19 21:34 Dextrose (Dextrose 50%) 25 ml Q30M PRN IV Hypoglycemia 08/19/19 13:15 11/17/19 13:14 Dextrose (Dextrose 50%) 50 ml Q30M PRN IV Hypoglycemia 08/19/19 13:15 11/17/19 13:14 Diphenhydramine HCl (Benadryl) 25 mg Q6H PRN IVP Itching 08/21/19 10:30 09/20/19 10:29 09/02/19 04:38 Docusate Sodium (Colace) 100 mg TWICE A DAY ORAL 08/31/19 18:00 09/30/19 17:59 08/31/19 17:27 Hydromorphone HCl (Dilaudid) 2 mg Q4H PRN IVP Severe Pain (Pain Scale 7-10) 08/29/19 06:15 09/05/19 06:14 09/02/19 04:38 Insulin Aspart (NovoLOG) BEFORE MEALS AND HS SUBQ 08/19/19 16:30 8/8/20 16:29 Linezolid 300 ml @ 300 mls/hr Q12HR IVPB 08/21/19 21:00 09/30/19 23:59 09/01/19 21:43 Magnesium Oxide (Mag-Ox 400mg) 400 mg THREE TIMES A DAY ORAL 08/23/19 19:45 09/22/19 19:44 09/01/19 18:28 Ondansetron HCl (Zofran) 4 mg Q6H PRN IVP Nausea & Vomiting 08/20/19 10:15 09/19/19 10:14 09/01/19 13:55 Pantoprazole (Protonix) 40 mg EVERY 12 HOURS IVP 08/31/19 21:00 09/30/19 20:59 09/01/19 21:43 Polyethylene Glycol (Miralax) 17 gm BEDTIME ORAL 08/31/19 21:00 09/30/19 20:59 Potassium Chloride 30 meq/ Sodium Chloride 1,015 ml @ 100 mls/hr Q10H9M IV 08/31/19 16:00 09/30/19 15:59 09/01/19 04:06 Assessment/Plan Assessment/Plan IMPRESSION: Multiple abscesses s/p aspiration, hyponatremia, hyperkalemia, acute renal failure, shortness of breath, dyspnea, leukocytosis, anemia, thrombocytosis. ARF PLAN PICC - care linezolid IV x28 days GI noted pain control poor surgical candidate dc planning - replace drain again monitor vitals impression, plan, and exam edited and reviewed in detail care discussed with Thanh Garcia MD September 02, 2019 08:05
--- NOTE | 2019-09-02 08:59 | General Progress Note ---
Assessment/Plan Problem List: (1) Pain ICD Codes: R52 - Pain, unspecified SNOMED: 79197884 (2) Osteomyelitis ICD Codes: M86.9 - Osteomyelitis, unspecified SNOMED: 47008200 (3) Abscess ICD Codes: L02.91 - Abscess SNOMED: 667721656 (4) Paraplegia ICD Codes: G82.20 - Paraplegia SNOMED: 50004480 (5) Asthma ICD Codes: J45.909 - Unspecified asthma, uncomplicated SNOMED: 377199000 (6) Anemia ICD Codes: D64.9 - Anemia, unspecified SNOMED: 573565552 (7) Acute renal failure ICD Codes: N17.9 - Acute kidney failure, unspecified SNOMED: 39978847 (8) right hip wound infecion/ulcer/osteo (9) Sepsis ICD Codes: A41.9 - Sepsis SNOMED: 57031333 (10) Cellulitis ICD Codes: L03.90 - Cellulitis, unspecified SNOMED: 194715321 (11) Abdominal pain ICD Codes: R10.9 - Unspecified abdominal pain SNOMED: 94638110 (12) Dehydration ICD Codes: E86.0 - Dehydration SNOMED: 28000952 Status: stable, progressing Assessment/Plan: cont iv abx per id monitor output from drains benadryl for itching pain rx antiemetics monitor h/h transfuse as needed check stool ob PPI monitor cr dvt/stress ulcer prophylaxis Subjective ROS Limited/Unobtainable: No Constitutional: Reports: malaise, weakness HEENT: Reports: no symptoms Cardiovascular: Reports: no symptoms Respiratory: Reports: no symptoms Gastrointestinal/Abdominal: Reports: no symptoms Genitourinary: Reports: no symptoms 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: Reports: pre-existing deficit Endocrine: Reports: no symptoms Hematologic/Lymphatic: Reports: anemia Allergies: Coded Allergies: CEFTRIAXONE (Verified Allergy, Intermediate, SOB, HR-140bpm, face swollen , pt became red, 10/24/15) CODEINE (Verified Allergy, Intermediate, SWELLING, 01/03/11) LATEX (Verified Allergy, Intermediate, SWELLING, 01/03/11) PIPERACILLIN (Verified Allergy, Intermediate, Itching, 08/29/15) 08/29/15 tolerates Ceftaroline TAZOBACTAM (Verified Allergy, Intermediate, Itching, 01/29/15) POLYMYXIN B (Verified Allergy, Mild, Rash, 04/08/16) Suspected allergy reported by VANCOMYCIN (Verified Allergy, Mild, 07/15/14) ASPARAGINASE (Verified Allergy, Unknown, 01/28/14) CEFUROXIME (Unverified Allergy, Unknown, 04/19/16) IRON (Verified Allergy, Unknown, 01/28/14) LATEX, NATURAL RUBBER (Unverified Allergy, Unknown, 06/18/16) All Systems: reviewed and negative except above Subjective events noted. h/h better after transfusion. no signs of bleeding. no melena or brbpr. no hematuria or hematemesis. Objective Last 24 Hour Vital Signs Date Time Temp Pulse Resp B/P (MAP) Pulse Ox O2 Delivery O2 Flow Rate FiO2 09/02/19 00:00 97.6 100 20 105/57 (73) 96 09/01/19 22:03 Room Air 09/01/19 20:00 97.0 103 22 114/50 (71) 95 09/01/19 18:58 98.2 09/01/19 16:00 98.2 104 20 106/68 (81) 98 09/01/19 12:00 97.7 95 18 103/61 (75) 99 09/01/19 09:00 Room Air Intake and Output 09/01/19 09/02/19 19:00 07:00 Intake Total 500 ml 1300 ml Output Total 321 ml Balance 179 ml 1300 ml Intake Oral 700 ml IV Total 500 ml 600 ml Post Void Residual 121 ml Stool Total 200 ml Bladder Scan Volume Amount 101-150 ml # Voids 2 Height (Feet): 5 Height (Inches): 5.00 Weight (Pounds): 224 Objective General Appearance: WD/WN, alert EENT: normal ENT inspection Neck: non-tender, normal alignment, supple Cardiovascular: normal peripheral pulses, normal rate, regular rhythm Respiratory/Chest: chest wall non-tender, lungs clear, normal breath sounds, no respiratory distress Abdomen: normal bowel sounds, non tender, soft, no organomegaly Edema: no edema noted Arm (L), no edema noted Arm (R), no edema noted Leg (L), no edema noted Leg (R), no edema noted Pedal (L), no edema noted Pedal (R), no edema noted Generalized Neurologic: motor weakness, sensory deficit Skin: normal pigmentation Lymphatic: normal anterior cervical (L), normal anterior cervical (R) Jacques Chanel MD September 02, 2019 08:59
[2019-09-02] MEDS: Docusate 100mg cap ORAL SCH ×2 (09:00→17:17)
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
[2019-09-02] MEDS: Pantoprazole Inj IVP SCH ×2 (09:53→20:30)
[2019-09-02] MEDS: Magnesium Oxide 400mg tab ORAL SCH ×3 (09:53→17:17)
[2019-09-02] MEDS: Allopurinol 100mg Tab ORAL SCH (09:54)
--- NOTE | 2019-09-02 10:27 | NUR ---
NURSE NOTES: Notified Dr. Tierney that bladder scan currently shows 230 ML of urine. No new orders given. Charge nurse aware.
[2019-09-02 11:19] LABS: ANION GAP 14 mmol/L (5-15); BLOOD UREA NITROGEN 27 mg/dL (7-18); CALCIUM 7.6 MG/DL (8.5-10.1); CARBON DIOXIDE 20 MMOL/L (21-32); CHLORIDE 101 MMOL/L (98-107); POTASSIUM 4.5 MMOL/L (3.5-5.1); SODIUM 135 MMOL/L (136-145)
[2019-09-02 11:47] LABS: CREATINE KINASE 15 U/L (26-308)
[2019-09-02 12:00] VITALS: BP 95/42
--- NOTE | 2019-09-02 14:57 | Infectious Diseases Prog Note ---
Assessment/Plan Assessment/Plan A 1. lumbar abscess s/p drainage Wound cultures: MRSA & MDR Pseudomonas 2. MRSA sepsis 3. left knee septic arthritis 4. paraplegia 5. Anemia P 1. continue linezolid X 28 days Subjective ROS Limited/Unobtainable: No Respiratory: Reports: no symptoms Gastrointestinal/Abdominal: Reports: no symptoms Genitourinary: Reports: no symptoms Musculoskeletal: Reports: pain Allergies: Coded Allergies: CEFTRIAXONE (Verified Allergy, Intermediate, SOB, HR-140bpm, face swollen , pt became red, 10/24/15) CODEINE (Verified Allergy, Intermediate, SWELLING, 01/03/11) LATEX (Verified Allergy, Intermediate, SWELLING, 01/03/11) PIPERACILLIN (Verified Allergy, Intermediate, Itching, 08/29/15) 08/29/15 tolerates Ceftaroline TAZOBACTAM (Verified Allergy, Intermediate, Itching, 01/29/15) POLYMYXIN B (Verified Allergy, Mild, Rash, 04/08/16) Suspected allergy reported by MD VANCOMYCIN (Verified Allergy, Mild, 07/15/14) ASPARAGINASE (Verified Allergy, Unknown, 01/28/14) CEFUROXIME (Unverified Allergy, Unknown, 04/19/16) IRON (Verified Allergy, Unknown, 01/28/14) LATEX, NATURAL RUBBER (Unverified Allergy, Unknown, 06/18/16) Objective Vital Signs Last 24 Hour Vital Signs Date Time Temp Pulse Resp B/P (MAP) Pulse Ox O2 Delivery O2 Flow Rate FiO2 09/02/19 12:00 97.7 100 20 95/42 (59) 98 09/02/19 09:00 Room Air 09/02/19 08:00 98.4 107 18 95/47 (63) 100 09/02/19 00:00 97.6 100 20 105/57 (73) 96 09/01/19 22:03 Room Air 09/01/19 20:00 97.0 103 22 114/50 (71) 95 09/01/19 18:58 98.2 09/01/19 16:00 98.2 104 20 106/68 (81) 98 Height (Feet): 5 Height (Inches): 5.00 Weight (Pounds): 224 General Appearance: no acute distress, other - obese HEENT: mucous membranes moist Cardiovascular: normal rate, other - PICC line Abdomen: soft, non tender Neurologic/Psychiatric: alert, oriented x 3, responsive, other - paraplegic Laboratory Tests Test 09/02/19 10:00 Sodium Level 135 MMOL/L (136-145) L Potassium Level 4.5 MMOL/L (3.5-5.1) Chloride Level 101 MMOL/L (98-107) Carbon Dioxide Level 20 MMOL/L (21-32) L Anion Gap 14 mmol/L (5-15) Blood Urea Nitrogen 27 mg/dL (7-18) H Creatinine 3.0 MG/DL (0.55-1.30) H Estimat Glomerular Filtration Rate 20.4 mL/min (>60) Glucose Level 59 MG/DL (74-106) L Calcium Level 7.6 MG/DL (8.5-10.1) L Total Creatine Kinase 15 U/L (26-308) L Current Medications Medications (Trade) Dose Ordered Sig/Pineda Route PRN Reason Start Time Stop Time Status Last Admin Dose Admin Acetaminophen (Tylenol) 650 mg Q4H PRN ORAL Mild Pain (Pain Scale 1-3) 08/20/19 10:15 09/19/19 10:14 Al Hydroxide/Mg Hydroxide (Mylanta) 30 ml Q4H PRN ORAL INDIGESTION 08/20/19 10:15 09/19/19 10:14 Albuterol Sulfate (Proventil) 2.5 mg Q4H PRN HHN Shortness of Breath 08/28/19 16:00 09/02/19 15:59 Allopurinol (Zyloprim) 100 mg DAILY ORAL 09/02/19 09:00 10/02/19 08:59 09/02/19 09:54 Cetylpyridinium Chloride (Cepacol) 1 lozg Q4H PRN MICHAEL sore throat 08/31/19 08:45 11/29/19 08:44 09/02/19 04:37 Chlorhexidine Gluconate (Nereida-Hex 2%) 1 applic DAILY@1999 TOPIC 08/18/19 20:00 11/16/19 19:59 08/31/19 21:34 Clotrimazole (Mycelex Elias) 10 mg FIVE TIMES A DAY MICHAEL 09/02/19 10:00 09/09/19 09:59 09/02/19 13:35 Dextrose (Dextrose 50%) 25 ml Q30M PRN IV Hypoglycemia 08/19/19 13:15 11/17/19 13:14 Dextrose (Dextrose 50%) 50 ml Q30M PRN IV Hypoglycemia 08/19/19 13:15 11/17/19 13:14 Diphenhydramine HCl (Benadryl) 25 mg Q6H PRN IVP Itching 08/21/19 10:30 09/20/19 10:29 09/02/19 10:59 Docusate Sodium (Colace) 100 mg TWICE A DAY ORAL 08/31/19 18:00 09/30/19 17:59 08/31/19 17:27 Hydromorphone HCl (Dilaudid) 2 mg Q4H PRN IVP Severe Pain (Pain Scale 7-10) 08/29/19 06:15 09/05/19 06:14 09/02/19 09:53 Insulin Aspart (NovoLOG) BEFORE MEALS AND HS SUBQ 08/19/19 16:30 11/17/19 16:29 Linezolid 300 ml @ 300 mls/hr Q12HR IVPB 08/21/19 21:00 09/30/19 23:59 09/02/19 09:53 Magnesium Oxide (Mag-Ox 400mg) 400 mg THREE TIMES A DAY ORAL 08/23/19 19:45 09/22/19 19:44 09/02/19 13:36 Ondansetron HCl (Zofran) 4 mg Q6H PRN IVP Nausea & Vomiting 08/20/19 10:15 09/19/19 10:14 09/02/19 09:53 Pantoprazole (Protonix) 40 mg EVERY 12 HOURS IVP 08/31/19 21:00 09/30/19 20:59 09/02/19 09:53 Polyethylene Glycol (Miralax) 17 gm BEDTIME ORAL 08/31/19 21:00 09/30/19 20:59 Potassium Chloride 30 meq/ Sodium Chloride 1,015 ml @ 125 mls/hr Q8H8M IV 09/02/19 16:00 10/02/19 15:59 Vaughn Juárez MD September 02, 2019 14:57
[2019-09-02 16:00] VITALS: BP 116/58
--- NOTE | 2019-09-02 19:28 | NUR ---
HAND-OFF: Report given to ANISA Whitehead (Jojo).
[2019-09-02 20:00] VITALS: BP 94/48
--- NOTE | 2019-09-02 20:00 | NUR ---
NURSE NOTES: Dr. Azul aware patient's uresil is dislodged. No new orders given.
--- NOTE | 2019-09-02 20:10 | NUR ---
NURSE NOTES: received patient comfortably sleeping without complaints.
[2019-09-02] MEDS: Dyna-Hex 2% Top Sol 2oz TOPIC SCH (20:30)
[2019-09-02] MEDS: Miralax 17gm pkt ORAL SCH (20:31)
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
[2019-09-03] VITALS (7 sets, daily range): BP systolic 101–132; BP diastolic 45–59
[2019-09-03] MEDS: NovoLOG Insulin Flexpen SUBQ SCH ×4 (06:30→21:00)
[2019-09-03 07:07] LABS: ANION GAP 13 mmol/L (5-15); BLOOD UREA NITROGEN 25 mg/dL (7-18); CALCIUM 7.2 MG/DL (8.5-10.1); CARBON DIOXIDE 21 MMOL/L (21-32); CHLORIDE 103 MMOL/L (98-107); POTASSIUM 4.4 MMOL/L (3.5-5.1); SODIUM 137 MMOL/L (136-145)
--- NOTE | 2019-09-03 07:50 | NUR ---
NURSE NOTES: Patient is in bed awake and able to verbalize needs. Stable. C/o pain, will administer pain medication as ordered. Patient instructed to use call light for assistance, verbalized understanding. Patient is in bed in locked and lowest position with call light within reach. All safety measures provided. WIll continue to monitor.
--- NOTE | 2019-09-03 08:38 | General Progress Note ---
Assessment/Plan Problem List: (1) Pain ICD Codes: R52 - Pain, unspecified SNOMED: 81900507 (2) Osteomyelitis ICD Codes: M86.9 - Osteomyelitis, unspecified SNOMED: 48637264 (3) Abscess ICD Codes: L02.91 - Abscess SNOMED: 376453447 (4) Paraplegia ICD Codes: G82.20 - Paraplegia SNOMED: 88281477 (5) Asthma ICD Codes: J45.909 - Unspecified asthma, uncomplicated SNOMED: 049158547 (6) Anemia ICD Codes: D64.9 - Anemia, unspecified SNOMED: 575042953 (7) Acute renal failure ICD Codes: N17.9 - Acute kidney failure, unspecified SNOMED: 67104317 (8) right hip wound infecion/ulcer/osteo (9) Sepsis ICD Codes: A41.9 - Sepsis SNOMED: 12135424 (10) Cellulitis ICD Codes: L03.90 - Cellulitis, unspecified SNOMED: 379702446 (11) Abdominal pain ICD Codes: R10.9 - Unspecified abdominal pain SNOMED: 49239434 (12) Dehydration ICD Codes: E86.0 - Dehydration SNOMED: 01894195 Status: stable, progressing Assessment/Plan: cont iv abx per id wound care benadryl for itching pain rx antiemetics monitor h/h transfuse as needed PPI monitor cr dvt/stress ulcer prophylaxis Subjective ROS Limited/Unobtainable: No Constitutional: Reports: malaise, weakness HEENT: Reports: no symptoms Cardiovascular: Reports: no symptoms Respiratory: Reports: no symptoms Gastrointestinal/Abdominal: Reports: no symptoms Genitourinary: Reports: no symptoms Neurologic/Psychiatric: Reports: pre-existing deficit Endocrine: Reports: no symptoms Hematologic/Lymphatic: Reports: anemia Allergies: Coded Allergies: CEFTRIAXONE (Verified Allergy, Intermediate, SOB, HR-140bpm, face swollen , pt became red, 10/24/15) CODEINE (Verified Allergy, Intermediate, SWELLING, 01/03/11) LATEX (Verified Allergy, Intermediate, SWELLING, 01/03/11) PIPERACILLIN (Verified Allergy, Intermediate, Itching, 08/29/15) 08/29/15 tolerates Ceftaroline TAZOBACTAM (Verified Allergy, Intermediate, Itching, 01/29/15) POLYMYXIN B (Verified Allergy, Mild, Rash, 04/08/16) Suspected allergy reported by VANCOMYCIN (Verified Allergy, Mild, 07/15/14) ASPARAGINASE (Verified Allergy, Unknown, 01/28/14) CEFUROXIME (Unverified Allergy, Unknown, 04/19/16) IRON (Verified Allergy, Unknown, 01/28/14) LATEX, NATURAL RUBBER (Unverified Allergy, Unknown, 06/18/16) All Systems: reviewed and negative except above Subjective events noted. h/h better after transfusion. no signs of bleeding. no melena or brbpr. no hematuria or hematemesis. Cr still high. renal US neg. chronic pain- controlled. Objective Last 24 Hour Vital Signs Date Time Temp Pulse Resp B/P (MAP) Pulse Ox O2 Delivery O2 Flow Rate FiO2 09/03/19 04:18 97.9 106 24 101/45 (63) 95 09/03/19 00:00 98.1 108 24 103/46 (65) 96 09/02/19 21:05 98.1 09/02/19 20:20 Room Air 09/02/19 20:00 97.9 100 24 94/48 (63) 94 09/02/19 16:00 98.1 102 18 116/58 (77) 99 09/02/19 12:00 97.7 100 20 95/42 (59) 98 09/02/19 09:00 Room Air Intake and Output 09/02/19 09/03/19 19:00 07:00 Intake Total 240 ml 1200 ml Balance 240 ml 1200 ml Intake Oral 240 ml IV Total 800 ml Other 400 ml Bladder Scan Volume Amount 201-300 ml # Voids 4 1 # Bowel Movements 1 Laboratory Tests 09/02/19 10:00: Sodium Level 135L, Potassium Level 4.5, Chloride Level 101, Carbon Dioxide Level 20L, Anion Gap 14, Blood Urea Nitrogen 27H, Creatinine 3.0H, Estimat Glomerular Filtration Rate 20.4, Glucose Level 59L, Calcium Level 7.6L, Total Creatine Kinase 15L 09/03/19 05:35: Sodium Level 137, Potassium Level 4.4, Chloride Level 103, Carbon Dioxide Level 21, Anion Gap 13, Blood Urea Nitrogen 25H, Creatinine 3.0H, Estimat Glomerular Filtration Rate 20.4, Glucose Level 49L, Calcium Level 7.2L, Magnesium Level 1.7L Height (Feet): 5 Height (Inches): 5.00 Weight (Pounds): 224 Objective General Appearance: WD/WN, alert EENT: normal ENT inspection Neck: non-tender, normal alignment, supple Cardiovascular: normal peripheral pulses, normal rate, regular rhythm Respiratory/Chest: chest wall non-tender, lungs clear, normal breath sounds, no respiratory distress Abdomen: normal bowel sounds, non tender, soft, no organomegaly Edema: no edema noted Arm (L), no edema noted Arm (R), no edema noted Leg (L), no edema noted Leg (R), no edema noted Pedal (L), no edema noted Pedal (R), no edema noted Generalized Neurologic: motor weakness, sensory deficit Skin: normal pigmentation Lymphatic: normal anterior cervical (L), normal anterior cervical (R) Jacques Chanel MD September 03, 2019 08:38
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
[2019-09-03] MEDS: Docusate 100mg cap ORAL SCH ×4 (09:00→17:39)
--- NOTE | 2019-09-03 09:06 | Pulmonology Progress Note ---
Subjective ROS Limited/Unobtainable: Yes Constitutional: Denies: fever, chills Gastrointestinal/Abdominal: Reports: no symptoms Musculoskeletal: Reports: pain Allergies: Coded Allergies: CEFTRIAXONE (Verified Allergy, Intermediate, SOB, HR-140bpm, face swollen , pt became red, 10/24/15) CODEINE (Verified Allergy, Intermediate, SWELLING, 01/03/11) LATEX (Verified Allergy, Intermediate, SWELLING, 01/03/11) PIPERACILLIN (Verified Allergy, Intermediate, Itching, 08/29/15) 08/29/15 tolerates Ceftaroline TAZOBACTAM (Verified Allergy, Intermediate, Itching, 01/29/15) POLYMYXIN B (Verified Allergy, Mild, Rash, 04/08/16) Suspected allergy reported by VANCOMYCIN (Verified Allergy, Mild, 07/15/14) ASPARAGINASE (Verified Allergy, Unknown, 01/28/14) CEFUROXIME (Unverified Allergy, Unknown, 04/19/16) IRON (Verified Allergy, Unknown, 01/28/14) LATEX, NATURAL RUBBER (Unverified Allergy, Unknown, 06/18/16) All Systems: reviewed and negative except above Subjective second drain out low HH- improved after transfusion renal function worsening- noted Objective Last 24 Hour Vital Signs Date Time Temp Pulse Resp B/P (MAP) Pulse Ox O2 Delivery O2 Flow Rate FiO2 09/03/19 04:18 97.9 106 24 101/45 (63) 95 09/03/19 00:00 98.1 108 24 103/46 (65) 96 09/02/19 21:05 98.1 09/02/19 20:20 Room Air 09/02/19 20:00 97.9 100 24 94/48 (63) 94 09/02/19 16:00 98.1 102 18 116/58 (77) 99 09/02/19 12:00 97.7 100 20 95/42 (59) 98 Intake and Output 09/02/19 09/03/19 19:00 07:00 Intake Total 240 ml 1200 ml Balance 240 ml 1200 ml Intake Oral 240 ml IV Total 800 ml Other 400 ml Bladder Scan Volume Amount 201-300 ml # Voids 4 1 # Bowel Movements 1 Objective GENERAL: Patient is an ill-appearing female. in pain HEENT: Negative. NECK: Supple. LUNGS: Good air entry. CARDIAC: S1, S2. Regular rate and rhythm. ABDOMEN: Soft, nontender. EXTREMITIES: With significant atrophy. Laboratory Tests 09/02/19 10:00: Sodium Level 135L, Potassium Level 4.5, Chloride Level 101, Carbon Dioxide Level 20L, Anion Gap 14, Blood Urea Nitrogen 27H, Creatinine 3.0H, Estimat Glomerular Filtration Rate 20.4, Glucose Level 59L, Calcium Level 7.6L, Total Creatine Kinase 15L 09/03/19 05:35: Sodium Level 137, Potassium Level 4.4, Chloride Level 103, Carbon Dioxide Level 21, Anion Gap 13, Blood Urea Nitrogen 25H, Creatinine 3.0H, Estimat Glomerular Filtration Rate 20.4, Glucose Level 49L, Calcium Level 7.2L, Magnesium Level 1.7L Current Medications Medications (Trade) Dose Ordered Sig/Pineda Route PRN Reason Start Time Stop Time Status Last Admin Dose Admin Acetaminophen (Tylenol) 650 mg Q4H PRN ORAL Mild Pain (Pain Scale 1-3) 08/20/19 10:15 09/19/19 10:14 Al Hydroxide/Mg Hydroxide (Mylanta) 30 ml Q4H PRN ORAL INDIGESTION 08/20/19 10:15 09/19/19 10:14 Allopurinol (Zyloprim) 100 mg DAILY ORAL 09/02/19 09:00 10/02/19 08:59 09/02/19 09:54 Cetylpyridinium Chloride (Cepacol) 1 lozg Q4H PRN MICHAEL sore throat 08/31/19 08:45 11/29/19 08:44 09/02/19 04:37 Chlorhexidine Gluconate (Nereida-Hex 2%) 1 applic DAILY@1999 TOPIC 08/18/19 20:00 11/16/19 19:59 09/02/19 20:30 Clotrimazole (Mycelex Elias) 10 mg FIVE TIMES A DAY MICHAEL 09/02/19 10:00 09/09/19 09:59 09/03/19 06:42 Dextrose (Dextrose 50%) 25 ml Q30M PRN IV Hypoglycemia 08/19/19 13:15 11/17/19 13:14 Dextrose (Dextrose 50%) 50 ml Q30M PRN IV Hypoglycemia 08/19/19 13:15 11/17/19 13:14 Diphenhydramine HCl (Benadryl) 25 mg Q6H PRN IVP Itching 08/21/19 10:30 09/20/19 10:29 09/02/19 17:18 Docusate Sodium (Colace) 100 mg TWICE A DAY ORAL 08/31/19 18:00 09/30/19 17:59 08/31/19 17:27 Hydromorphone HCl (Dilaudid) 2 mg Q4H PRN IVP Severe Pain (Pain Scale 7-10) 08/29/19 06:15 09/05/19 06:14 09/02/19 20:31 Insulin Aspart (NovoLOG) BEFORE MEALS AND HS SUBQ 08/19/19 16:30 11/17/19 16:29 Linezolid 300 ml @ 300 mls/hr Q12HR IVPB 08/21/19 21:00 09/30/19 23:59 09/02/19 20:30 Magnesium Oxide (Mag-Ox 400mg) 400 mg THREE TIMES A DAY ORAL 08/23/19 19:45 09/22/19 19:44 09/02/19 17:17 Ondansetron HCl (Zofran) 4 mg Q6H PRN IVP Nausea & Vomiting 08/20/19 10:15 09/19/19 10:14 09/02/19 17:18 Pantoprazole (Protonix) 40 mg EVERY 12 HOURS IVP 08/31/19 21:00 09/30/19 20:59 09/02/19 20:30 Potassium Chloride 30 meq/ Sodium Chloride 1,015 ml @ 125 mls/hr Q8H8M IV 09/02/19 16:00 10/02/19 15:59 09/02/19 16:23 Assessment/Plan Assessment/Plan IMPRESSION: Multiple abscesses s/p aspiration, hyponatremia, hyperkalemia, acute renal failure, shortness of breath, dyspnea, leukocytosis, anemia, thrombocytosis. ARF, possible GIB, low mag PLAN PICC - care linezolid IV x27 days GI noted- planned EGD pain control replace Mag poor surgical candidate replace drains per IR monitor renal function monitor vitals impression, plan, and exam edited and reviewed in detail care discussed with Thanh Garcia MD September 03, 2019 09:06
[2019-09-03] MEDS: Pantoprazole Inj IVP SCH ×2 (09:14→21:35)
[2019-09-03] MEDS: Magnesium Oxide 400mg tab ORAL SCH ×3 (09:14→17:34)
[2019-09-03] MEDS: Allopurinol 100mg Tab ORAL SCH (09:14)
[2019-09-03] MEDS: DiphenhydrAMINE 50mg/ml Inj IVP PRN ×2 (09:26→21:44)
--- NOTE | 2019-09-03 09:58 | Infectious Diseases Prog Note ---
"Assessment/Plan Assessment/Plan antibiotics : linezolid colistin 5..20 A 1. lumbar abscess s/p drainage with MRSA | pseudomonas 2. MRSA sepsis 3. left knee septic arthritis 4. paraplegia 5. renal failure P 1. continue linezolid 27 more days 2. will follow up cultures Subjective Constitutional: Denies: fever, chills Respiratory: Denies: shortness of breath, dry cough Gastrointestinal/Abdominal: Reports: nausea; Denies: vomiting, diarrhea Musculoskeletal: Reports: pain - decreased Allergies: Coded Allergies: CEFTRIAXONE (Verified Allergy, Intermediate, SOB, HR-140bpm, face swollen , pt became red, 10/24/15) CODEINE (Verified Allergy, Intermediate, SWELLING, 01/03/11) LATEX (Verified Allergy, Intermediate, SWELLING, 01/03/11) PIPERACILLIN (Verified Allergy, Intermediate, Itching, 08/29/15) 08/29/15 tolerates Ceftaroline TAZOBACTAM (Verified Allergy, Intermediate, Itching, 01/29/15) POLYMYXIN B (Verified Allergy, Mild, Rash, 04/08/16) Suspected allergy reported by VANCOMYCIN (Verified Allergy, Mild, 07/15/14) ASPARAGINASE (Verified Allergy, Unknown, 01/28/14) CEFUROXIME (Unverified Allergy, Unknown, 04/19/16) IRON (Verified Allergy, Unknown, 01/28/14) LATEX, NATURAL RUBBER (Unverified Allergy, Unknown, 06/18/16) Objective Vital Signs Last 24 Hour Vital Signs Date Time Temp Pulse Resp B/P (MAP) Pulse Ox O2 Delivery O2 Flow Rate FiO2 09/03/19 04:18 97.9 106 24 101/45 (63) 95 09/03/19 00:00 98.1 108 24 103/46 (65) 96 09/02/19 21:05 98.1 09/02/19 20:20 Room Air 09/02/19 20:00 97.9 100 24 94/48 (63) 94 09/02/19 16:00 98.1 102 18 116/58 (77) 99 09/02/19 12:00 97.7 100 20 95/42 (59) 98 Height (Feet): 5 Height (Inches): 5.00 Weight (Pounds): 224 Laboratory Tests Test 09/02/19 10:00 09/03/19 05:35 Sodium Level 135 MMOL/L (136-145) L 137 MMOL/L (136-145) Potassium Level 4.5 MMOL/L (3.5-5.1) 4.4 MMOL/L (3.5-5.1) Chloride Level 101 MMOL/L (98-107) 103 MMOL/L (98-107) Carbon Dioxide Level 20 MMOL/L (21-32) L 21 MMOL/L (21-32) Anion Gap 14 mmol/L (5-15) 13 mmol/L (5-15) Blood Urea Nitrogen 27 mg/dL (7-18) H 25 mg/dL (7-18) H Creatinine 3.0 MG/DL (0.55-1.30) H 3.0 MG/DL (0.55-1.30) H Estimat Glomerular Filtration Rate 20.4 mL/min (>60) 20.4 mL/min (>60) Glucose Level 59 MG/DL (74-106) L 49 MG/DL (74-106) L Calcium Level 7.6 MG/DL (8.5-10.1) L 7.2 MG/DL (8.5-10.1) L Total Creatine Kinase 15 U/L (26-308) L Magnesium Level 1.7 MG/DL (1.8-2.4) L Current Medications Medications (Trade) Dose Ordered Sig/Pineda Route PRN Reason Start Time Stop Time Status Last Admin Dose Admin Acetaminophen (Tylenol) 650 mg Q4H PRN ORAL Mild Pain (Pain Scale 1-3) 08/20/19 10:15 09/19/19 10:14 Al Hydroxide/Mg Hydroxide (Mylanta) 30 ml Q4H PRN ORAL INDIGESTION 08/20/19 10:15 09/19/19 10:14 Allopurinol (Zyloprim) 100 mg DAILY ORAL 09/02/19 09:00 10/02/19 08:59 09/03/19 09:14 Cetylpyridinium Chloride (Cepacol) 1 lozg Q4H PRN MICHAEL sore throat 08/31/19 08:45 11/29/19 08:44 09/02/19 04:37 Chlorhexidine Gluconate (Nereida-Hex 2%) 1 applic DAILY@1999 TOPIC 08/18/19 20:00 11/16/19 19:59 09/02/19 20:30 Clotrimazole (Mycelex Elias) 10 mg FIVE TIMES A DAY MICHAEL 09/02/19 10:00 09/09/19 09:59 09/03/19 06:42 Dextrose (Dextrose 50%) 25 ml Q30M PRN IV Hypoglycemia 08/19/19 13:15 11/17/19 13:14 Dextrose (Dextrose 50%) 50 ml Q30M PRN IV Hypoglycemia 08/19/19 13:15 11/17/19 13:14 Diphenhydramine HCl (Benadryl) 25 mg Q6H PRN IVP Itching 08/21/19 10:30 09/20/19 10:29 09/03/19 09:26 Docusate Sodium (Colace) 100 mg TWICE A DAY ORAL 08/31/19 18:00 09/30/19 17:59 09/03/19 09:14 Hydromorphone HCl (Dilaudid) 2 mg Q4H PRN IVP Severe Pain (Pain Scale 7-10) 08/29/19 06:15 09/05/19 06:14 09/03/19 09:14 Insulin Aspart (NovoLOG) BEFORE MEALS AND HS SUBQ 08/19/19 16:30 11/17/19 16:29 Linezolid 300 ml @ 300 mls/hr Q12HR IVPB 08/21/19 21:00 09/30/19 23:59 09/03/19 09:14 Magnesium Oxide (Mag-Ox 400mg) 400 mg THREE TIMES A DAY ORAL 08/23/19 19:45 09/22/19 19:44 09/03/19 09:14 Magnesium Sulfate 100 ml @ 100 mls/hr Q1H IVPB 09/03/19 09:15 09/03/19 11:14 09/03/19 09:26 Ondansetron HCl (Zofran) 4 mg Q6H PRN IVP Nausea & Vomiting 08/20/19 10:15 09/19/19 10:14 09/02/19 17:18 Pantoprazole (Protonix) 40 mg EVERY 12 HOURS IVP 08/31/19 21:00 09/30/19 20:59 09/03/19 09:14 Potassium Chloride 30 meq/ Sodium Chloride 1,015 ml @ 125 mls/hr Q8H8M IV 09/02/19 16:00 10/02/19 15:59 09/02/19 16:23 Deng Reyes MD September 03, 2019 09:58"
--- NOTE | 2019-09-03 11:23 | NUR ---
NURSE NOTES: Bladder scan done as ordered. 0mL noted.
--- NOTE | 2019-09-03 14:36 | NUR ---
NURSE NOTES: Bed bath given. All dressings changed as ordered.
--- NOTE | 2019-09-03 16:30 | NUR ---
NURSE NOTES: Colostomy supplies at bedside. Patient verbalized that she does not want RN to touch colostomy and she will change the bag herself.
--- NOTE | 2019-09-03 17:00 | NUR ---
NURSE NOTES: Patient needs constant reminders to keep left arm straight so PICC line will not occlude. IVF infusing as ordered.
--- NOTE | 2019-09-03 19:36 | NUR ---
HAND-OFF: Report given to Leeann LANGE. Patient is stable.
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
[2019-09-03] MEDS: Dyna-Hex 2% Top Sol 2oz TOPIC SCH (21:34)
[2019-09-04] VITALS (10 sets, daily range): BP systolic 92–109; BP diastolic 47–63
[2019-09-04] MEDS: NovoLOG Insulin Flexpen SUBQ SCH ×4 (06:30→21:00)
--- NOTE | 2019-09-04 07:25 | NUR ---
HAND-OFF: Report given to Ace Earl RN/ Demetri Heaton RN.
--- NOTE | 2019-09-04 07:40 | NUR ---
NURSE NOTES: Received patient lying in hospital on p200 mattress, AAO x 4, able to make needs known. Patient is paraplegic and on bedrest. Incontinent to bladder with colostomy bag in place. Patient has PICC to L upper arm double lumen flushing with no s/s of infection on site. Patient has c/o pain at 10/10 to lower back and itching. RN will administer PRN pain medication and Benadryl. Will continue POC. Pt is planned for EGD today.
--- NOTE | 2019-09-04 08:05 | Pulmonology Progress Note ---
Subjective ROS Limited/Unobtainable: Yes Constitutional: Denies: fever, chills Gastrointestinal/Abdominal: Reports: nausea; Denies: vomiting, diarrhea Musculoskeletal: Reports: pain - decreased Allergies: Coded Allergies: CEFTRIAXONE (Verified Allergy, Intermediate, SOB, HR-140bpm, face swollen , pt became red, 10/24/15) CODEINE (Verified Allergy, Intermediate, SWELLING, 01/03/11) LATEX (Verified Allergy, Intermediate, SWELLING, 01/03/11) PIPERACILLIN (Verified Allergy, Intermediate, Itching, 08/29/15) 08/29/15 tolerates Ceftaroline TAZOBACTAM (Verified Allergy, Intermediate, Itching, 01/29/15) POLYMYXIN B (Verified Allergy, Mild, Rash, 04/08/16) Suspected allergy reported by VANCOMYCIN (Verified Allergy, Mild, 07/15/14) ASPARAGINASE (Verified Allergy, Unknown, 01/28/14) CEFUROXIME (Unverified Allergy, Unknown, 04/19/16) IRON (Verified Allergy, Unknown, 01/28/14) LATEX, NATURAL RUBBER (Unverified Allergy, Unknown, 06/18/16) All Systems: reviewed and negative except above Subjective drains out for possible EGD renal function noted Objective Last 24 Hour Vital Signs Date Time Temp Pulse Resp B/P (MAP) Pulse Ox O2 Delivery O2 Flow Rate FiO2 09/04/19 04:15 96.9 09/04/19 04:10 96.9 105 24 105/57 (73) 99 09/03/19 23:54 97.8 109 24 109/59 (76) 93 09/03/19 21:00 Room Air 09/03/19 20:00 98.1 112 24 109/55 (73) 97 09/03/19 16:00 97.5 110 19 118/56 (76) 99 09/03/19 12:00 98.1 99 18 102/48 (66) 100 09/03/19 09:00 Room Air Intake and Output 09/03/19 09/04/19 19:00 07:00 Intake Total 660 ml Balance 660 ml IV Total 300 ml Other 360 ml Bladder Scan Volume Amount <10 ml # Voids 1 Objective GENERAL: Patient is an ill-appearing female. in pain HEENT: Negative. NECK: Supple. LUNGS: Good air entry. CARDIAC: S1, S2. Regular rate and rhythm. ABDOMEN: Soft, nontender. EXTREMITIES: With significant atrophy. Current Medications Medications (Trade) Dose Ordered Sig/Pineda Route PRN Reason Start Time Stop Time Status Last Admin Dose Admin Acetaminophen (Tylenol) 650 mg Q4H PRN ORAL Mild Pain (Pain Scale 1-3) 08/20/19 10:15 09/19/19 10:14 Al Hydroxide/Mg Hydroxide (Mylanta) 30 ml Q4H PRN ORAL INDIGESTION 08/20/19 10:15 09/19/19 10:14 Allopurinol (Zyloprim) 100 mg DAILY ORAL 09/02/19 09:00 10/02/19 08:59 09/03/19 09:14 Cetylpyridinium Chloride (Cepacol) 1 lozg Q4H PRN MICHAEL sore throat 08/31/19 08:45 11/29/19 08:44 09/02/19 04:37 Chlorhexidine Gluconate (Nereida-Hex 2%) 1 applic DAILY@2000 TOPIC 08/18/19 20:00 11/16/19 19:59 09/03/19 21:34 Clotrimazole (Mycelex Elias) 10 mg FIVE TIMES A DAY MICHAEL 09/02/19 10:00 09/09/19 09:59 09/03/19 17:34 Dextrose (Dextrose 50%) 25 ml Q30M PRN IV Hypoglycemia 08/19/19 13:15 11/17/19 13:14 Dextrose (Dextrose 50%) 50 ml Q30M PRN IV Hypoglycemia 08/19/19 13:15 11/17/19 13:14 Diphenhydramine HCl (Benadryl) 25 mg Q6H PRN IVP Itching 08/21/19 10:30 09/20/19 10:29 09/03/19 21:44 Docusate Sodium (Colace) 100 mg TWICE A DAY ORAL 08/31/19 18:00 09/30/19 17:59 08/31/19 17:27 Hydrocortisone (Hydrocortisone) 1 applic BID PRN TOPIC Itching topical 09/03/19 10:15 12/02/19 10:14 09/03/19 14:34 Hydromorphone HCl (Dilaudid) 2 mg Q4H PRN IVP Severe Pain (Pain Scale 7-10) 08/29/19 06:15 09/05/19 06:14 09/04/19 03:45 Insulin Aspart (NovoLOG) BEFORE MEALS AND HS SUBQ 08/19/19 16:30 11/17/19 16:29 Linezolid 300 ml @ 300 mls/hr Q12HR IVPB 08/21/19 21:00 09/30/19 23:59 09/03/19 21:35 Magnesium Oxide (Mag-Ox 400mg) 400 mg THREE TIMES A DAY ORAL 08/23/19 19:45 09/22/19 19:44 09/03/19 17:34 Ondansetron HCl (Zofran) 4 mg Q6H PRN IVP Nausea & Vomiting 08/20/19 10:15 09/19/19 10:14 09/03/19 14:18 Pantoprazole (Protonix) 40 mg EVERY 12 HOURS IVP 08/31/19 21:00 09/30/19 20:59 09/03/19 21:35 Potassium Chloride 30 meq/ Sodium Chloride 1,015 ml @ 125 mls/hr Q8H8M IV 09/02/19 16:00 10/02/19 15:59 09/02/19 16:23 Assessment/Plan Assessment/Plan IMPRESSION: Multiple abscesses s/p aspiration, hyponatremia, hyperkalemia, acute renal failure, shortness of breath, dyspnea, leukocytosis, anemia, thrombocytosis. ARF, possible GIB, low mag PLAN PICC - care linezolid IV x26 days GI noted- planned EGD ? in am pain control poor surgical candidate replace drains per IR ordered monitor renal function monitor vitals impression, plan, and exam edited and reviewed in detail care discussed with Thanh Garcia MD September 04, 2019 08:05
[2019-09-04] MEDS: DiphenhydrAMINE 50mg/ml Inj IVP PRN ×3 (08:09→22:56)
--- NOTE | 2019-09-04 08:48 | General Progress Note ---
Assessment/Plan Problem List: (1) Pain ICD Codes: R52 - Pain, unspecified SNOMED: 13904867 (2) Osteomyelitis ICD Codes: M86.9 - Osteomyelitis, unspecified SNOMED: 93675086 (3) Abscess ICD Codes: L02.91 - Abscess SNOMED: 474725849 (4) Paraplegia ICD Codes: G82.20 - Paraplegia SNOMED: 77055010 (5) Asthma ICD Codes: J45.909 - Unspecified asthma, uncomplicated SNOMED: 014449535 (6) Anemia ICD Codes: D64.9 - Anemia, unspecified SNOMED: 313315997 (7) Acute renal failure ICD Codes: N17.9 - Acute kidney failure, unspecified SNOMED: 93735716 (8) right hip wound infecion/ulcer/osteo (9) Sepsis ICD Codes: A41.9 - Sepsis SNOMED: 62311945 (10) Cellulitis ICD Codes: L03.90 - Cellulitis, unspecified SNOMED: 184064963 (11) Abdominal pain ICD Codes: R10.9 - Unspecified abdominal pain SNOMED: 92661190 (12) Dehydration ICD Codes: E86.0 - Dehydration SNOMED: 95076493 Status: stable, progressing Assessment/Plan: cont iv abx per id wound care benadryl for itching pain rx as needed antiemetics monitor h/h- labs ordered for today transfuse as needed PPI monitor cr dvt/stress ulcer prophylaxis Subjective Constitutional: Reports: malaise, weakness HEENT: Reports: no symptoms Cardiovascular: Reports: no symptoms Respiratory: Reports: cough Gastrointestinal/Abdominal: Reports: no symptoms Genitourinary: Reports: no symptoms Neurologic/Psychiatric: Reports: numbness, pre-existing deficit, tingling, weakness Endocrine: Reports: no symptoms Hematologic/Lymphatic: Reports: anemia Allergies: Coded Allergies: CEFTRIAXONE (Verified Allergy, Intermediate, SOB, HR-140bpm, face swollen , pt became red, 10/24/15) CODEINE (Verified Allergy, Intermediate, SWELLING, 01/03/11) LATEX (Verified Allergy, Intermediate, SWELLING, 01/03/11) PIPERACILLIN (Verified Allergy, Intermediate, Itching, 08/29/15) 08/29/15 tolerates Ceftaroline TAZOBACTAM (Verified Allergy, Intermediate, Itching, 01/29/15) POLYMYXIN B (Verified Allergy, Mild, Rash, 04/08/16) Suspected allergy reported by VANCOMYCIN (Verified Allergy, Mild, 07/15/14) ASPARAGINASE (Verified Allergy, Unknown, 01/28/14) CEFUROXIME (Unverified Allergy, Unknown, 04/19/16) IRON (Verified Allergy, Unknown, 01/28/14) LATEX, NATURAL RUBBER (Unverified Allergy, Unknown, 06/18/16) All Systems: reviewed and negative except above Subjective no events.c/o pain. on pain. no fevers. labs pending for today. no reports of bleeding. on wound care Objective Last 24 Hour Vital Signs Date Time Temp Pulse Resp B/P (MAP) Pulse Ox O2 Delivery O2 Flow Rate FiO2 09/04/19 04:15 96.9 09/04/19 04:10 96.9 105 24 105/57 (73) 99 09/03/19 23:54 97.8 109 24 109/59 (76) 93 09/03/19 21:00 Room Air 09/03/19 20:00 98.1 112 24 109/55 (73) 97 09/03/19 16:00 97.5 110 19 118/56 (76) 99 09/03/19 12:00 98.1 99 18 102/48 (66) 100 09/03/19 09:00 Room Air Intake and Output 09/03/19 09/04/19 18:59 06:59 Intake Total 660 ml Balance 660 ml IV Total 300 ml Other 360 ml Bladder Scan Volume Amount <10 ml # Voids 1 Height (Feet): 5 Height (Inches): 5.00 Weight (Pounds): 224 Objective General Appearance: WD/WN, alert EENT: normal ENT inspection Neck: non-tender, normal alignment, supple Cardiovascular: normal peripheral pulses, normal rate, regular rhythm Respiratory/Chest: chest wall non-tender, lungs clear, normal breath sounds, no respiratory distress Abdomen: normal bowel sounds, non tender, soft, no organomegaly Edema: no edema noted Arm (L), no edema noted Arm (R), no edema noted Leg (L), no edema noted Leg (R), no edema noted Pedal (L), no edema noted Pedal (R), no edema noted Generalized Neurologic: motor weakness, sensory deficit Skin: normal pigmentation Lymphatic: normal anterior cervical (L), normal anterior cervical (R) Jacques Chanel MD September 04, 2019 08:48
[2019-09-04] MEDS: Docusate 100mg cap ORAL SCH ×2 (09:00→17:03)
[2019-09-04] MEDS: Allopurinol 100mg Tab ORAL SCH (09:00)
[2019-09-04] MEDS: Magnesium Oxide 400mg tab ORAL SCH ×3 (09:00→17:47)
[2019-09-04 09:05] LABS: BASOPHILS % (AUTO) 0.4 % (0.0-2.0); EOSINOPHILS % (AUTO) 1.5 % (0.0-3.0); HEMATOCRIT 33.6 % (37.0-47.0); HEMOGLOBIN 11.1 G/DL (12.0-16.0); LYMPHOCYTES % (AUTO) 19.9 % (20.0-45.0); MEAN CORPUSCULAR VOLUME 84 FL (80-99); MONOCYTES % (AUTO) 1.4 % (1.0-10.0); NEUTROPHILS % (AUTO) 76.8 % (45.0-75.0); PLATELET COUNT 214 K/UL (150-450); RED BLOOD COUNT 4.01 M/UL (4.20-5.40); RED CELL DISTRIBUTION WIDTH 14.9 % (11.6-14.8); WHITE BLOOD COUNT 15.9 K/UL (4.8-10.8)
[2019-09-04 09:15] LABS: ANION GAP 12 mmol/L (5-15); BLOOD UREA NITROGEN 26 mg/dL (7-18); CALCIUM 7.4 MG/DL (8.5-10.1); CARBON DIOXIDE 23 MMOL/L (21-32); CHLORIDE 102 MMOL/L (98-107); CREATININE 3.2 MG/DL (0.55-1.30); POTASSIUM 4.5 MMOL/L (3.5-5.1); SODIUM 137 MMOL/L (136-145)
[2019-09-04] MEDS: Pantoprazole Inj IVP SCH ×2 (09:55→21:24)
--- NOTE | 2019-09-04 10:10 | NUR ---
NURSE NOTES: Morning nursing care done.RN changed wound dressing, no new skin issue. Still noted with drainage from the back,changed dressing, no bleeding. Patient is scheduled for CT guided drain placement cath on 09/05/19. Patient did not want to drain BM from colostomy bag @ this time. Unable to collect stool for OB. Will follow up.
--- NOTE | 2019-09-04 10:54 | Infectious Diseases Prog Note ---
"Assessment/Plan Assessment/Plan antibiotics : linezolid colistin 5.18.20 A 1. lumbar abscess s/p drainage with MRSA | pseudomonas 2. MRSA sepsis 3. left knee septic arthritis 4. paraplegia 5. renal failure P 1. continue linezolid 26 more days 2. will follow up cultures Subjective Constitutional: Denies: fever, chills Respiratory: Denies: shortness of breath, dry cough Gastrointestinal/Abdominal: Reports: nausea - yesterday; Denies: vomiting, diarrhea Musculoskeletal: Reports: pain Allergies: Coded Allergies: CEFTRIAXONE (Verified Allergy, Intermediate, SOB, HR-140bpm, face swollen , pt became red, 10/24/15) CODEINE (Verified Allergy, Intermediate, SWELLING, 01/03/11) LATEX (Verified Allergy, Intermediate, SWELLING, 01/03/11) PIPERACILLIN (Verified Allergy, Intermediate, Itching, 08/29/15) 08/29/15 tolerates Ceftaroline TAZOBACTAM (Verified Allergy, Intermediate, Itching, 01/29/15) POLYMYXIN B (Verified Allergy, Mild, Rash, 04/08/16) Suspected allergy reported by VANCOMYCIN (Verified Allergy, Mild, 07/15/14) ASPARAGINASE (Verified Allergy, Unknown, 01/28/14) CEFUROXIME (Unverified Allergy, Unknown, 04/19/16) IRON (Verified Allergy, Unknown, 01/28/14) LATEX, NATURAL RUBBER (Unverified Allergy, Unknown, 06/18/16) Objective Vital Signs Last 24 Hour Vital Signs Date Time Temp Pulse Resp B/P (MAP) Pulse Ox O2 Delivery O2 Flow Rate FiO2 09/04/19 08:53 98.2 105 18 104/47 (66) 97 09/04/19 08:39 98.2 09/04/19 04:10 96.9 105 24 105/57 (73) 99 09/03/19 23:54 97.8 109 24 109/59 (76) 93 09/03/19 21:00 Room Air 09/03/19 20:00 98.1 112 24 109/55 (73) 97 09/03/19 16:00 97.5 110 19 118/56 (76) 99 09/03/19 12:00 98.1 99 18 102/48 (66) 100 Height (Feet): 5 Height (Inches): 5.00 Weight (Pounds): 224 Respiratory/Chest: lungs clear Cardiovascular: normal rate, regular rhythm, no gallop/murmur Abdomen: soft, non tender Extremities: no edema, other - left arm PICC Laboratory Tests Test 09/04/19 08:25 White Blood Count 15.9 K/UL (4.8-10.8) H Red Blood Count 4.01 M/UL (4.20-5.40) L Hemoglobin 11.1 G/DL (12.0-16.0) L Hematocrit 33.6 % (37.0-47.0) L Mean Corpuscular Volume 84 FL (80-99) Mean Corpuscular Hemoglobin 27.8 PG (27.0-31.0) Mean Corpuscular Hemoglobin Concent 33.1 G/DL (32.0-36.0) Red Cell Distribution Width 14.9 % (11.6-14.8) H Platelet Count 214 K/UL (150-450) Mean Platelet Volume 5.5 FL (6.5-10.1) L Neutrophils (%) (Auto) 76.8 % (45.0-75.0) H Lymphocytes (%) (Auto) 19.9 % (20.0-45.0) L Monocytes (%) (Auto) 1.4 % (1.0-10.0) Eosinophils (%) (Auto) 1.5 % (0.0-3.0) Basophils (%) (Auto) 0.4 % (0.0-2.0) Sodium Level 137 MMOL/L (136-145) Potassium Level 4.5 MMOL/L (3.5-5.1) Chloride Level 102 MMOL/L (98-107) Carbon Dioxide Level 23 MMOL/L (21-32) Anion Gap 12 mmol/L (5-15) Blood Urea Nitrogen 26 mg/dL (7-18) H Creatinine 3.2 MG/DL (0.55-1.30) H Estimat Glomerular Filtration Rate 18.9 mL/min (>60) Glucose Level 62 MG/DL (74-106) L Calcium Level 7.4 MG/DL (8.5-10.1) L Current Medications Medications (Trade) Dose Ordered Sig/Pineda Route PRN Reason Start Time Stop Time Status Last Admin Dose Admin Acetaminophen (Tylenol) 650 mg Q4H PRN ORAL Mild Pain (Pain Scale 1-3) 08/20/19 10:15 09/19/19 10:14 Al Hydroxide/Mg Hydroxide (Mylanta) 30 ml Q4H PRN ORAL INDIGESTION 08/20/19 10:15 09/19/19 10:14 Allopurinol (Zyloprim) 100 mg DAILY ORAL 09/02/19 09:00 10/02/19 08:59 09/03/19 09:14 Cetylpyridinium Chloride (Cepacol) 1 lozg Q4H PRN MICHAEL sore throat 08/31/19 08:45 11/29/19 08:44 09/02/19 04:37 Chlorhexidine Gluconate (Nereida-Hex 2%) 1 applic DAILY@2000 TOPIC 08/18/19 20:00 11/16/19 19:59 09/03/19 21:34 Clotrimazole (Mycelex Elias) 10 mg FIVE TIMES A DAY MICHAEL 09/02/19 10:00 09/09/19 09:59 09/03/19 17:34 Dextrose (Dextrose 50%) 25 ml Q30M PRN IV Hypoglycemia 08/19/19 13:15 11/17/19 13:14 Dextrose (Dextrose 50%) 50 ml Q30M PRN IV Hypoglycemia 08/19/19 13:15 11/17/19 13:14 Diphenhydramine HCl (Benadryl) 25 mg Q6H PRN IVP Itching 08/21/19 10:30 09/20/19 10:29 09/04/19 08:09 Docusate Sodium (Colace) 100 mg TWICE A DAY ORAL 08/31/19 18:00 09/30/19 17:59 08/31/19 17:27 Hydrocortisone (Hydrocortisone) 1 applic BID PRN TOPIC Itching topical 09/03/19 10:15 12/02/19 10:14 09/03/19 14:34 Hydromorphone HCl (Dilaudid) 2 mg Q4H PRN IVP Severe Pain (Pain Scale 7-10) 08/29/19 06:15 09/05/19 06:14 09/04/19 08:09 Insulin Aspart (NovoLOG) BEFORE MEALS AND HS SUBQ 08/19/19 16:30 11/17/19 16:29 Linezolid 300 ml @ 300 mls/hr Q12HR IVPB 08/21/19 21:00 09/30/19 23:59 09/04/19 09:58 Magnesium Oxide (Mag-Ox 400mg) 400 mg THREE TIMES A DAY ORAL 08/23/19 19:45 09/22/19 19:44 09/03/19 17:34 Ondansetron HCl (Zofran) 4 mg Q6H PRN IVP Nausea & Vomiting 08/20/19 10:15 09/19/19 10:14 09/03/19 14:18 Pantoprazole (Protonix) 40 mg EVERY 12 HOURS IVP 08/31/19 21:00 09/30/19 20:59 09/04/19 09:55 Potassium Chloride 30 meq/ Sodium Chloride 1,015 ml @ 125 mls/hr Q8H8M IV 09/02/19 16:00 10/02/19 15:59 09/04/19 09:55 Deng Reyes MD September 04, 2019 10:54"
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
--- NOTE | 2019-09-04 11:44 | Pre-Procedure Note/Attestation ---
Pre-Procedure Note/Attestation Complete Prior to Procedure Planned Procedure: not applicable Procedure Narrative: egd Indications for Procedure Pre-Operative Diagnosis: GIB Attestation I attest that I discussed the nature of the procedure; its benefits; risks and complications; and alternatives (and the risks and benefits of such alternatives ), prior to the procedure, with the patient (or the patient's legal financial service representative). I attest that, if there was a reasonable possibility of needing a blood transfusion, the patient (or the patient's legal financial service representative) was given the [facility] standardized written summary, pursuant to the Wally Tami Blood Safety Act ([place] Health and Safety Code # 1645, as amended). I attest that I re-evaluated the patient just prior to the surgery and that there has been no change in the patient's H&P, except as documented below: Johnie Ly MD September 04, 2019 11:44
[2019-09-04] MEDS ORDERED: fentaNYL 100 mcg/2 mL IV ONE (11:45)
--- NOTE | 2019-09-04 11:45 | NUR ---
NURSE NOTES: Patient is off the unit for EGD in stable condition. Flushed PICC line. Room door remains closed.
[2019-09-04] MEDS ORDERED: NS 500ML IVPB ONE (12:00)
--- NOTE | 2019-09-04 12:26 | Immediate Post-Op Evaluation ---
Immediate Post-Op Evalulation Immediate Post-Op Evalulation Procedure: EGD with Bx Date of Evaluation: September 04, 2019 Time of Evaluation: 12:25 IV Fluids: 200 Blood Products: none Estimated Blood Loss: none Urinary Output: none Blood Pressure Systolic: 102 Blood Pressure Diastolic: 56 Pulse Rate: 98 Respiratory Rate: 20 O2 Sat by Pulse Oximetry: 99 Temperature (Fahrenheit): 97.6 Pain Score (1-10): 1 Nausea: No Vomiting: No Complications none Patient Status: awake, patent, none Hydration Status: adequate Jordan Og MD September 04, 2019 12:26
--- NOTE | 2019-09-04 13:01 | NUR ---
RD ASSESSMENT & RECOMMENDATIONS SEE CARE ACTIVITY FOR COMPLETE ASSESSMENT DAILY ESTIMATED NEEDS: Needs based on Wound + paraplegia, 65 kg abw 28-30 kcals/kg 4566-4954 total kcals 1.25-2 g protein/kg 81-130 g total protein 1L Fluid restriction per MD NUTRITION DIAGNOSIS: (1) Increased KCAL, protein, and micronutrient needs r/t wound healing as evidenced pt w/ multiple full thickness wounds @ sacrum, R buttock, L ischium, R knee, poasterior L leg, lateral R tibia, unstageable wound @ distal/lateral R tibia, and DTPI @ R gluteal cheek, admitted w/ new paraspinal abscess as well. (2) Altered nutrition related values R/T diabetes as evidenced by elev BGs (192, 161-> now improved 105, 145), A1C of 8.4 (07/29/19). CURRENT DIET:NPO EGD PO DIET RECOMMENDATIONS: CCHO MED + High Prot snacks BID (Fluid restriction per MD) ADDITIONAL RECOMMENDATIONS: * Recalibrated bedscale wt for accurate CBW-> monitor weekly wts * WOUND CARE: MVI w/ min x1+VIT C 500mg BID ZnSO4 220mg QD x 10 days Luiz BID recommended but pt w/ h/o refusal * Monitor BGs- now low (62 49 59), A1C >8.0, pt refusing NISS and checks * Monitor PO intake -> now improved * Monitor lytes, replete as needed; Rec D5 for hypoglycemia
--- NOTE | 2019-09-04 13:15 | NUR ---
NURSE NOTES: Patient came back from recovery after EGD in stable condition. V/S stable. Patient does not want to eat @ this time and refused 13:00pm scheduled medications. Will continue to monitor.Denies pain in her throat, no s/s of bleeding.
[2019-09-04] MEDS ORDERED: Polyethylene Glycol 238gm bottle ORAL ONE (13:30)
--- NOTE | 2019-09-04 13:58 | NUR ---
NURSE NOTES: RN offered Miralax bowel prep for colonoscopy tomorrow. Patient stated that " I can not drink it. let me take a nap first and I will let you know later." RN educated on med and importance of following plan of care. Will follow up.
--- NOTE | 2019-09-04 17:13 | NUR ---
CASE MANAGEMENT:REVIEW 09/03/19 SI;AC RENAL FAILURE. LEUKOCYTOSIS. THROMBOCYTOSIS. ANEMIA. 98.1 112 24 118/56 93% ON RA WBC 15.9 BUN 25 CR 3.0 BG 49 CA 7.2 MG 1.7 IS;KCL IV ALLOPURINOL PO QD CLOTRIMAZOLE 5X DAY PROTONIX IV BID MAG-OX PO TID ZYVOX IV Q12 HRS MED SURG STATUS DCP;FROM HOME
--- NOTE | 2019-09-04 18:00 | NUR ---
NURSE NOTES: offered Miralax several times but patient wants to drink it later when she is ready. Will follow up.
--- NOTE | 2019-09-04 19:30 | NUR ---
NURSE NOTES: Patient said she will start taking miralax later. RN explained again about the importance of following plan of care and bowel pre. RN contacted Dr. Ly and made him aware. Endorsed to the next shift.
--- NOTE | 2019-09-04 19:30 | NUR ---
HAND-OFF: Report given to ANISA Ocampo. POC endorsed.
[2019-09-04] MEDS: Dyna-Hex 2% Top Sol 2oz TOPIC SCH (20:00)
--- NOTE | 2019-09-04 20:00 | Procedure Note ---
DATE OF PROCEDURE: 09/04/2019 SURGEON: Johnie Ly MD. PROCEDURE: Upper endoscopy with biopsy. ANESTHESIA: Per Dr. Og. INSTRUMENT: Olympus adult flexible upper endoscope. REASON FOR PROCEDURE: The procedure, risks, benefits, and possible consequences, including hemorrhage, aspiration, perforation and infection, and alternative treatments, were explained to the patient/legal guardian by Dr. Johnie Ly and the patient/legal guardian understood and accepted these risks. INDICATION: GI bleeding, stool OB positive. DESCRIPTION OF PROCEDURE: After informed consent was obtained and patient was adequately sedated, Olympus upper endoscope was advanced from mouth in to the second portion of the duodenum and retroflexion was performed in the stomach. Patient has diffuse gastritis. Random biopsies from antrum was obtained to rule out H. pylori infection. Otherwise, the rest of the upper endoscopic examination grossly within normal limits. At this time, the upper endoscope was retrieved and procedure was terminated. SUMMARY OF FINDINGS: Gastritis, otherwise normal upper endoscopic examination. RECOMMENDATIONS: Follow up biopsy results and treat accordingly. Given multiple blood transfusion requirement and given the stool OB positive, we will recommend colonoscopy. We will plan for tomorrow. I want to thank Dr. Thanh Glover for this kind referral. Johnie Ly M.D. DR: ARLEN JOB#: [id number] CC: Thanh Glover M.D.; Fax#: [phone]
--- NOTE | 2019-09-04 20:01 | NUR ---
NURSE NOTES:Patient in bed, awake, alert and verbally responsive. Able to make needs known. Respiration is even and unlabored. Picc line noted, IV fluid is infusing as ordered. Dressing noted on left hip, sacral no dressing noted, patient is aware. Patient agreed to drink the miralax. Started 1999. Informed the patient regarding NPO midnight and collecting stool. changed patient, cleaned. Bed in low and locked position. Provided safe environment. Call light is at bedside.
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
--- NOTE | 2019-09-04 21:00 | NUR ---
NURSE NOTES: Patient noted with redness and itching on the upper arms, patient says she's ok. Will give PRN medication as ordered.
--- NOTE | 2019-09-04 23:14 | NUR ---
NURSE NOTES: Patient complained of pain 10/10, given PRN pain medication and Benadryl. Call light is at bedside. Will continue plan of care.
--- NOTE | 2019-09-04 23:35 | NUR ---
NURSE NOTES: Patient only finished one bottle of gatorade, patient is aware that patient has to finish it.
[2019-09-05] VITALS (12 sets, daily range): BP systolic 19–134; BP diastolic 50–67
--- NOTE | 2019-09-05 00:30 | NUR ---
HAND-OFF: Report given to Jade Lozada.
[2019-09-05] MEDS: DiphenhydrAMINE 50mg/ml Inj IVP PRN ×3 (04:59→20:10)
--- NOTE | 2019-09-05 05:21 | NUR ---
NURSE NOTE: Pt refuses blood glucose check. Pt has been NPO since midnight in anticipation of colonoscopy today.Pt drank the bowel prep. Pt is also scheduled for CT guided drain placement. Consents signed. Patient requires pain medication around the clock. Pt's absorbant pad and bed linen changed. Pt refused wound care.
[2019-09-05] MEDS: NovoLOG Insulin Flexpen SUBQ SCH ×4 (06:19→20:10)
--- NOTE | 2019-09-05 06:20 | NUR ---
NURSE NOTE: unable to collect stool OB; no BM. Unable to collect urine, pt is incontinent and noncompliant.
--- NOTE | 2019-09-05 06:45 | NUR ---
NURSE NOTES: 550ml stool drained from colostomy bag.
[2019-09-05 07:06] LABS: BASOPHILS % (AUTO) 0.5 % (0.0-2.0); EOSINOPHILS % (AUTO) 1.4 % (0.0-3.0); HEMATOCRIT 32.7 % (37.0-47.0); HEMOGLOBIN 10.8 G/DL (12.0-16.0); LYMPHOCYTES % (AUTO) 15.4 % (20.0-45.0); MEAN CORPUSCULAR VOLUME 84 FL (80-99); MONOCYTES % (AUTO) 1.7 % (1.0-10.0); PLATELET COUNT 176 K/UL (150-450); RED BLOOD COUNT 3.89 M/UL (4.20-5.40); RED CELL DISTRIBUTION WIDTH 15.1 % (11.6-14.8); WHITE BLOOD COUNT 12.2 K/UL (4.8-10.8)
[2019-09-05 07:10] LABS: ANION GAP 13 mmol/L (5-15); BLOOD UREA NITROGEN 27 mg/dL (7-18); CALCIUM 7.2 MG/DL (8.5-10.1); CARBON DIOXIDE 23 MMOL/L (21-32); CHLORIDE 105 MMOL/L (98-107); POTASSIUM 4.6 MMOL/L (3.5-5.1); SODIUM 140 MMOL/L (136-145)
--- NOTE | 2019-09-05 07:30 | NUR ---
HAND-OFF: Report given to ANISA Yarbrough.
--- NOTE | 2019-09-05 07:36 | NUR ---
NURSE NOTES: Report received from ANISA Rueda. Pt received in bed with no signs of cardiac or respiratory distress, denies any discomfort or pain at this time, alert and oriented x 4, verbal and able to make needs known, bed in lowest position with alarm on and breaks engaged, colostomy bag in place, on NPO diet for CT guided drain placement catheter and Colonoscopy, PICC line on CHRISTIN patent and intact, will continue to monitor for changes and will proceed with plan of care, call light within reach at all times.
[2019-09-05] MEDS ORDERED: fentaNYL 100 mcg/2 mL IV ONE (08:53)
[2019-09-05] MEDS: Docusate 100mg cap ORAL SCH ×2 (09:00→17:49)
[2019-09-05] MEDS: Allopurinol 100mg Tab ORAL SCH (09:00)
[2019-09-05] MEDS: Magnesium Oxide 400mg tab ORAL SCH ×3 (09:00→17:49)
[2019-09-05] MEDS: Pantoprazole Inj IVP SCH ×2 (09:00→20:10)
--- NOTE | 2019-09-05 09:00 | NUR ---
NURSE NOTES: patient left unit for colonoscopy. NPO. Picc line on left upper arm intact. signed consent.
--- NOTE | 2019-09-05 09:15 | Pre-Procedure Note/Attestation ---
Pre-Procedure Note/Attestation Complete Prior to Procedure Planned Procedure: not applicable Procedure Narrative: colonoscopy Indications for Procedure Pre-Operative Diagnosis: GIB Attestation I attest that I discussed the nature of the procedure; its benefits; risks and complications; and alternatives (and the risks and benefits of such alternatives ), prior to the procedure, with the patient (or the patient's legal small business sales representative). I attest that, if there was a reasonable possibility of needing a blood transfusion, the patient (or the patient's legal small business sales representative) was given the [facility] standardized written summary, pursuant to the Wally Tami Blood Safety Act ([place] Health and Safety Code # 1645, as amended). I attest that I re-evaluated the patient just prior to the surgery and that there has been no change in the patient's H&P, except as documented below: Johnie Ly MD September 05, 2019 09:15
--- NOTE | 2019-09-05 09:17 | General Progress Note ---
Assessment/Plan Problem List: (1) Pain ICD Codes: R52 - Pain, unspecified SNOMED: 41435781 (2) Osteomyelitis ICD Codes: M86.9 - Osteomyelitis, unspecified SNOMED: 73902847 (3) Abscess ICD Codes: L02.91 - Abscess SNOMED: 070914052 (4) Paraplegia ICD Codes: G82.20 - Paraplegia SNOMED: 73579649 (5) Asthma ICD Codes: J45.909 - Unspecified asthma, uncomplicated SNOMED: 509703280 (6) Anemia ICD Codes: D64.9 - Anemia, unspecified SNOMED: 465548969 (7) Acute renal failure ICD Codes: N17.9 - Acute kidney failure, unspecified SNOMED: 44671923 (8) right hip wound infecion/ulcer/osteo (9) Sepsis ICD Codes: A41.9 - Sepsis SNOMED: 30123287 (10) Cellulitis ICD Codes: L03.90 - Cellulitis, unspecified SNOMED: 946357339 (11) Abdominal pain ICD Codes: R10.9 - Unspecified abdominal pain SNOMED: 38885703 (12) Dehydration ICD Codes: E86.0 - Dehydration SNOMED: 52493455 Status: stable, progressing Assessment/Plan: cont iv abx per id wound care pain rx as needed antiemetics monitor h/h transfuse as needed PPI monitor cr dvt/stress ulcer prophylaxis Subjective ROS Limited/Unobtainable: No Constitutional: Reports: weakness HEENT: Reports: no symptoms Cardiovascular: Reports: no symptoms Respiratory: Reports: no symptoms Gastrointestinal/Abdominal: Reports: no symptoms Genitourinary: Reports: no symptoms Neurologic/Psychiatric: Reports: numbness, pre-existing deficit, tingling, weakness Endocrine: Reports: no symptoms Hematologic/Lymphatic: Reports: anemia Allergies: Coded Allergies: CEFTRIAXONE (Verified Allergy, Intermediate, SOB, HR-140bpm, face swollen , pt became red, 10/24/15) CODEINE (Verified Allergy, Intermediate, SWELLING, 01/03/11) LATEX (Verified Allergy, Intermediate, SWELLING, 01/03/11) PIPERACILLIN (Verified Allergy, Intermediate, Itching, 08/29/15) 08/29/15 tolerates Ceftaroline TAZOBACTAM (Verified Allergy, Intermediate, Itching, 01/29/15) POLYMYXIN B (Verified Allergy, Mild, Rash, 04/08/16) Suspected allergy reported by VANCOMYCIN (Verified Allergy, Mild, 07/15/14) ASPARAGINASE (Verified Allergy, Unknown, 01/28/14) CEFUROXIME (Unverified Allergy, Unknown, 04/19/16) IRON (Verified Allergy, Unknown, 01/28/14) LATEX, NATURAL RUBBER (Unverified Allergy, Unknown, 06/18/16) All Systems: reviewed and negative except above Subjective no events.c/o pain. on pain. no fevers. egd yesterday with gastritis. no reports of bleeding. cr still high at 3. hgb stable Objective Last 24 Hour Vital Signs Date Time Temp Pulse Resp B/P (MAP) Pulse Ox O2 Delivery O2 Flow Rate FiO2 09/05/19 08:00 97.9 105 18 121/52 (75) 97 09/05/19 04:00 97.2 101 19 106/67 (80) 97 09/05/19 00:00 97.9 62 19 134/60 (84) 97 09/04/19 21:00 Room Air 09/04/19 20:00 98.2 106 20 100/56 (71) 95 09/04/19 16:00 97.9 107 18 107/58 (74) 97 09/04/19 12:57 97.8 105 19 109/62 100 Nasal Cannula 3 09/04/19 12:50 104 19 104/63 100 Nasal Cannula 3 09/04/19 12:38 104 20 108/51 100 Nasal Cannula 3 09/04/19 12:28 102 16 104/58 100 Nasal Cannula 3 09/04/19 12:26 98 20 99 09/04/19 12:23 104 15 95/60 100 Nasal Cannula 3 09/04/19 12:18 97.8 102 20 92/56 100 Nasal Cannula 3 Intake and Output 09/04/19 09/05/19 19:00 07:00 Intake Total 1075 ml 675 ml Output Total 0 ml Balance 1075 ml 675 ml IV Total 1075 ml 675 ml Output Urine Total 0 ml # Voids 2 Laboratory Tests 09/05/19 06:00: White Blood Count 12.2H, Red Blood Count 3.89L, Hemoglobin 10.8L, Hematocrit 32.7L, Mean Corpuscular Volume 84, Mean Corpuscular Hemoglobin 27.7, Mean Corpuscular Hemoglobin Concent 32.9, Red Cell Distribution Width 15.1H, Platelet Count 176, Mean Platelet Volume 5.5L, Neutrophils (%) (Auto) 81.0H, Lymphocytes (%) (Auto) 15.4L, Monocytes (%) (Auto) 1.7, Eosinophils (%) (Auto) 1.4, Basophils (%) (Auto) 0.5, Sodium Level 140, Potassium Level 4.6, Chloride Level 105, Carbon Dioxide Level 23, Anion Gap 13, Blood Urea Nitrogen 27H, Creatinine 3.0H, Estimat Glomerular Filtration Rate 20.4, Glucose Level 68L, Calcium Level 7.2L, Phosphorus Level 7.0H, Magnesium Level 2.0 Height (Feet): 5 Height (Inches): 5.00 Weight (Pounds): 222 Objective General Appearance: WD/WN, alert EENT: normal ENT inspection Neck: non-tender, normal alignment, supple Cardiovascular: normal peripheral pulses, normal rate, regular rhythm Respiratory/Chest: chest wall non-tender, lungs clear, normal breath sounds, no respiratory distress Abdomen: normal bowel sounds, non tender, soft, no organomegaly Edema: no edema noted Arm (L), no edema noted Arm (R), no edema noted Leg (L), no edema noted Leg (R), no edema noted Pedal (L), no edema noted Pedal (R), no edema noted Generalized Neurologic: motor weakness, sensory deficit Skin: normal pigmentation Lymphatic: normal anterior cervical (L), normal anterior cervical (R) Jacques Chanel MD September 05, 2019 09:17
[2019-09-05] MEDS ORDERED: NS 500ML IVPB ONE (09:20)
--- NOTE | 2019-09-05 09:27 | Pulmonology Progress Note ---
Subjective ROS Limited/Unobtainable: No Constitutional: Denies: fever, chills Gastrointestinal/Abdominal: Reports: nausea - yesterday; Denies: vomiting, diarrhea Musculoskeletal: Reports: pain Allergies: Coded Allergies: CEFTRIAXONE (Verified Allergy, Intermediate, SOB, HR-140bpm, face swollen , pt became red, 10/24/15) CODEINE (Verified Allergy, Intermediate, SWELLING, 01/03/11) LATEX (Verified Allergy, Intermediate, SWELLING, 01/03/11) PIPERACILLIN (Verified Allergy, Intermediate, Itching, 08/29/15) 08/29/15 tolerates Ceftaroline TAZOBACTAM (Verified Allergy, Intermediate, Itching, 01/29/15) POLYMYXIN B (Verified Allergy, Mild, Rash, 04/08/16) Suspected allergy reported by VANCOMYCIN (Verified Allergy, Mild, 07/15/14) ASPARAGINASE (Verified Allergy, Unknown, 01/28/14) CEFUROXIME (Unverified Allergy, Unknown, 04/19/16) IRON (Verified Allergy, Unknown, 01/28/14) LATEX, NATURAL RUBBER (Unverified Allergy, Unknown, 06/18/16) All Systems: reviewed and negative except above Subjective drains out awaiting EGD and replacement of drains renal function repeat labs pending Objective Last 24 Hour Vital Signs Date Time Temp Pulse Resp B/P (MAP) Pulse Ox O2 Delivery O2 Flow Rate FiO2 09/05/19 08:00 97.9 105 18 121/52 (75) 97 09/05/19 04:00 97.2 101 19 106/67 (80) 97 09/05/19 00:00 97.9 62 19 134/60 (84) 97 09/04/19 21:00 Room Air 09/04/19 20:00 98.2 106 20 100/56 (71) 95 09/04/19 16:00 97.9 107 18 107/58 (74) 97 09/04/19 12:57 97.8 105 19 109/62 100 Nasal Cannula 3 09/04/19 12:50 104 19 104/63 100 Nasal Cannula 3 09/04/19 12:38 104 20 108/51 100 Nasal Cannula 3 09/04/19 12:28 102 16 104/58 100 Nasal Cannula 3 09/04/19 12:26 98 20 99 5/26/20 12:23 104 15 95/60 100 Nasal Cannula 3 09/04/19 12:18 97.8 102 20 92/56 100 Nasal Cannula 3 Intake and Output 09/04/19 09/05/19 19:00 07:00 Intake Total 1075 ml 675 ml Output Total 0 ml Balance 1075 ml 675 ml IV Total 1075 ml 675 ml Output Urine Total 0 ml # Voids 2 Objective GENERAL: Patient is an ill-appearing female. in pain HEENT: Negative. NECK: Supple. LUNGS: Good air entry. CARDIAC: S1, S2. Regular rate and rhythm. ABDOMEN: Soft, nontender. EXTREMITIES: With significant atrophy. Laboratory Tests 09/05/19 06:00: White Blood Count 12.2H, Red Blood Count 3.89L, Hemoglobin 10.8L, Hematocrit 32.7L, Mean Corpuscular Volume 84, Mean Corpuscular Hemoglobin 27.7, Mean Corpuscular Hemoglobin Concent 32.9, Red Cell Distribution Width 15.1H, Platelet Count 176, Mean Platelet Volume 5.5L, Neutrophils (%) (Auto) 81.0H, Lymphocytes (%) (Auto) 15.4L, Monocytes (%) (Auto) 1.7, Eosinophils (%) (Auto) 1.4, Basophils (%) (Auto) 0.5, Sodium Level 140, Potassium Level 4.6, Chloride Level 105, Carbon Dioxide Level 23, Anion Gap 13, Blood Urea Nitrogen 27H, Creatinine 3.0H, Estimat Glomerular Filtration Rate 20.4, Glucose Level 68L, Calcium Level 7.2L, Phosphorus Level 7.0H, Magnesium Level 2.0 Current Medications Medications (Trade) Dose Ordered Sig/Pineda Route PRN Reason Start Time Stop Time Status Last Admin Dose Admin Acetaminophen (Tylenol) 650 mg Q4H PRN ORAL Mild Pain (Pain Scale 1-3) 08/20/19 10:15 09/19/19 10:14 Al Hydroxide/Mg Hydroxide (Mylanta) 30 ml Q4H PRN ORAL INDIGESTION 08/20/19 10:15 09/19/19 10:14 Allopurinol (Zyloprim) 100 mg DAILY ORAL 09/02/19 09:00 10/02/19 08:59 09/03/19 09:14 Cetylpyridinium Chloride (Cepacol) 1 lozg Q4H PRN MICHAEL sore throat 08/31/19 08:45 11/29/19 08:44 09/02/19 04:37 Chlorhexidine Gluconate (Nereida-Hex 2%) 1 applic DAILY@1999 TOPIC 08/18/19 20:00 11/16/19 19:59 09/03/19 21:34 Clotrimazole (Mycelex Elias) 10 mg FIVE TIMES A DAY MICHAEL 09/02/19 10:00 09/09/19 09:59 09/05/19 04:56 Dextrose (Dextrose 50%) 25 ml Q30M PRN IV Hypoglycemia 08/19/19 13:15 11/17/19 13:14 Dextrose (Dextrose 50%) 50 ml Q30M PRN IV Hypoglycemia 08/19/19 13:15 11/17/19 13:14 Diphenhydramine HCl (Benadryl) 25 mg Q6H PRN IVP Itching 08/21/19 10:30 09/20/19 10:29 09/05/19 04:59 Docusate Sodium (Colace) 100 mg TWICE A DAY ORAL 08/31/19 18:00 09/30/19 17:59 08/31/19 17:27 Hydrocortisone (Hydrocortisone) 1 applic BID PRN TOPIC Itching topical 09/03/19 10:15 12/02/19 10:14 09/04/19 21:05 Insulin Aspart (NovoLOG) BEFORE MEALS AND HS SUBQ 08/19/19 16:30 11/17/19 16:29 Linezolid 300 ml @ 300 mls/hr Q12HR IVPB 08/21/19 21:00 09/30/19 23:59 09/04/19 21:24 Magnesium Oxide (Mag-Ox 400mg) 400 mg THREE TIMES A DAY ORAL 08/23/19 19:45 09/22/19 19:44 09/04/19 17:47 Ondansetron HCl (Zofran) 4 mg Q6H PRN IVP Nausea & Vomiting 08/20/19 10:15 09/19/19 10:14 09/03/19 14:18 Pantoprazole (Protonix) 40 mg EVERY 12 HOURS IVP 08/31/19 21:00 09/30/19 20:59 09/04/19 21:24 Potassium Chloride 30 meq/ Sodium Chloride 1,015 ml @ 125 mls/hr Q8H8M IV 09/04/19 23:00 10/04/19 22:59 09/04/19 22:58 Assessment/Plan Assessment/Plan IMPRESSION: Multiple abscesses s/p aspiration, hyponatremia, hyperkalemia, acute renal failure, shortness of breath, dyspnea, leukocytosis, anemia, thrombocytosis. ARF, possible GIB, low mag PLAN PICC - care linezolid IV x25 days for EGD pain control poor surgical candidate replace drains per IR ordered- hope today monitor renal function monitor vitals pain control as is impression, plan, and exam edited and reviewed in detail care discussed with Thanh Garcia MD September 05, 2019 09:27
--- NOTE | 2019-09-05 09:49 | Immediate Post-Op Evaluation ---
Immediate Post-Op Evalulation Immediate Post-Op Evalulation Procedure: Colonoscopy Date of Evaluation: September 05, 2019 Time of Evaluation: 09:48 IV Fluids: 200 Blood Products: none Estimated Blood Loss: none Urinary Output: none Blood Pressure Systolic: 102 Blood Pressure Diastolic: 56 Pulse Rate: 98 Respiratory Rate: 20 O2 Sat by Pulse Oximetry: 99 Temperature (Fahrenheit): 97.6 Pain Score (1-10): 1 Nausea: No Vomiting: No Complications none Patient Status: awake, patent, none Hydration Status: adequate Jordan Og MD September 05, 2019 09:49
--- NOTE | 2019-09-05 10:36 | 48 Hour Post Anesthesia Eval ---
Post Anesthesia Evaluation Procedure: Colonoscopy Date of Evaluation: September 05, 2019 Time of Evaluation: 10:35 Blood Pressure Systolic: 104 0: 56 Pulse Rate: 98 Respiratory Rate: 22 Temperature (Fahrenheit): 97.4 O2 Sat by Pulse Oximetry: 99 Airway: patent Nausea: No Vomiting: No Pain Intensity: 3 Hydration Status: adequate Cardiopulmonary Status: stable Mental Status/LOC: patient returned to baseline Post-Anesthesia Complications: n/a Follow-up care needed: N/A Jordan Og MD September 05, 2019 10:36
--- NOTE | 2019-09-05 10:47 | Infectious Diseases Prog Note ---
"Assessment/Plan Assessment/Plan antibiotics : linezolid colistin 5.18.20 A 1. lumbar abscess s/p drainage with MRSA | pseudomonas 2. MRSA sepsis 3. left knee septic arthritis 4. paraplegia 5. renal failure P 1. continue linezolid 25 more days 2. will follow up cultures Subjective Constitutional: Denies: fever, chills Respiratory: Denies: shortness of breath, dry cough Gastrointestinal/Abdominal: Denies: nausea, vomiting, diarrhea Musculoskeletal: Reports: pain Allergies: Coded Allergies: CEFTRIAXONE (Verified Allergy, Intermediate, SOB, HR-140bpm, face swollen , pt became red, 10/24/15) CODEINE (Verified Allergy, Intermediate, SWELLING, 01/03/11) LATEX (Verified Allergy, Intermediate, SWELLING, 01/03/11) PIPERACILLIN (Verified Allergy, Intermediate, Itching, 08/29/15) 08/29/15 tolerates Ceftaroline TAZOBACTAM (Verified Allergy, Intermediate, Itching, 01/29/15) POLYMYXIN B (Verified Allergy, Mild, Rash, 04/08/16) Suspected allergy reported by MD VANCOMYCIN (Verified Allergy, Mild, 07/15/14) ASPARAGINASE (Verified Allergy, Unknown, 01/28/14) CEFUROXIME (Unverified Allergy, Unknown, 04/19/16) IRON (Verified Allergy, Unknown, 01/28/14) LATEX, NATURAL RUBBER (Unverified Allergy, Unknown, 06/18/16) Objective Vital Signs Last 24 Hour Vital Signs Date Time Temp Pulse Resp B/P (MAP) Pulse Ox O2 Delivery O2 Flow Rate FiO2 09/05/19 10:36 100 18 19/59 100 Nasal Cannula 2 09/05/19 10:36 98 22 99 09/05/19 10:30 97.8 100 15 115/61 100 Nasal Cannula 2 09/05/19 10:15 98 17 107/57 100 Nasal Cannula 2 09/05/19 10:00 100 13 110/60 100 Nasal Cannula 2 09/05/19 09:55 100 12 107/58 100 Nasal Cannula 2 09/05/19 09:50 97.0 100 13 94/64 100 Nasal Cannula 3 09/05/19 09:49 98 20 99 09/05/19 09:00 Room Air 09/05/19 08:00 97.9 105 18 121/52 (75) 97 09/05/19 04:00 97.2 101 19 106/67 (80) 97 09/05/19 00:00 97.9 62 19 134/60 (84) 97 09/04/19 21:00 Room Air 09/04/19 20:00 98.2 106 20 100/56 (71) 95 09/04/19 16:00 97.9 107 18 107/58 (74) 97 09/04/19 12:57 97.8 105 19 109/62 100 Nasal Cannula 3 09/04/19 12:50 104 19 104/63 100 Nasal Cannula 3 09/04/19 12:38 104 20 108/51 100 Nasal Cannula 3 09/04/19 12:28 102 16 104/58 100 Nasal Cannula 3 09/04/19 12:26 98 20 99 09/04/19 12:23 104 15 95/60 100 Nasal Cannula 3 09/04/19 12:18 97.8 102 20 92/56 100 Nasal Cannula 3 Height (Feet): 5 Height (Inches): 5.00 Weight (Pounds): 222 Respiratory/Chest: lungs clear Cardiovascular: normal rate, regular rhythm, no gallop/murmur Abdomen: soft, non tender Extremities: no edema, other - left arm PICC Laboratory Tests Test 09/05/19 06:00 White Blood Count 12.2 K/UL (4.8-10.8) H Red Blood Count 3.89 M/UL (4.20-5.40) L Hemoglobin 10.8 G/DL (12.0-16.0) L Hematocrit 32.7 % (37.0-47.0) L Mean Corpuscular Volume 84 FL (80-99) Mean Corpuscular Hemoglobin 27.7 PG (27.0-31.0) Mean Corpuscular Hemoglobin Concent 32.9 G/DL (32.0-36.0) Red Cell Distribution Width 15.1 % (11.6-14.8) H Platelet Count 176 K/UL (150-450) Mean Platelet Volume 5.5 FL (6.5-10.1) L Neutrophils (%) (Auto) 81.0 % (45.0-75.0) H Lymphocytes (%) (Auto) 15.4 % (20.0-45.0) L Monocytes (%) (Auto) 1.7 % (1.0-10.0) Eosinophils (%) (Auto) 1.4 % (0.0-3.0) Basophils (%) (Auto) 0.5 % (0.0-2.0) Sodium Level 140 MMOL/L (136-145) Potassium Level 4.6 MMOL/L (3.5-5.1) Chloride Level 105 MMOL/L (98-107) Carbon Dioxide Level 23 MMOL/L (21-32) Anion Gap 13 mmol/L (5-15) Blood Urea Nitrogen 27 mg/dL (7-18) H Creatinine 3.0 MG/DL (0.55-1.30) H Estimat Glomerular Filtration Rate 20.4 mL/min (>60) Glucose Level 68 MG/DL (74-106) L Calcium Level 7.2 MG/DL (8.5-10.1) L Phosphorus Level 7.0 MG/DL (2.5-4.9) H Magnesium Level 2.0 MG/DL (1.8-2.4) Current Medications Medications (Trade) Dose Ordered Sig/Pineda Route PRN Reason Start Time Stop Time Status Last Admin Dose Admin Acetaminophen (Tylenol) 650 mg Q4H PRN ORAL Mild Pain (Pain Scale 1-3) 08/20/19 10:15 09/19/19 10:14 Al Hydroxide/Mg Hydroxide (Mylanta) 30 ml Q4H PRN ORAL INDIGESTION 08/20/19 10:15 09/19/19 10:14 Allopurinol (Zyloprim) 100 mg DAILY ORAL 09/02/19 09:00 10/02/19 08:59 09/03/19 09:14 Cetylpyridinium Chloride (Cepacol) 1 lozg Q4H PRN MICHAEL sore throat 08/31/19 08:45 11/29/19 08:44 09/02/19 04:37 Chlorhexidine Gluconate (Nereida-Hex 2%) 1 applic DAILY@1999 TOPIC 08/18/19 20:00 11/16/19 19:59 09/03/19 21:34 Clotrimazole (Mycelex Elias) 10 mg FIVE TIMES A DAY MICHAEL 09/02/19 10:00 09/09/19 09:59 09/05/19 04:56 Dextrose (Dextrose 50%) 25 ml Q30M PRN IV Hypoglycemia 08/19/19 13:15 11/17/19 13:14 Dextrose (Dextrose 50%) 50 ml Q30M PRN IV Hypoglycemia 08/19/19 13:15 11/17/19 13:14 Diphenhydramine HCl (Benadryl) 25 mg Q6H PRN IVP Itching 08/21/19 10:30 09/20/19 10:29 09/05/19 04:59 Docusate Sodium (Colace) 100 mg TWICE A DAY ORAL 08/31/19 18:00 09/30/19 17:59 08/31/19 17:27 Hydrocortisone (Hydrocortisone) 1 applic BID PRN TOPIC Itching topical 09/03/19 10:15 12/02/19 10:14 09/04/19 21:05 Hydromorphone HCl (Dilaudid) 2 mg Q4H PRN IVP Severe Pain (Pain Scale 7-10) 09/05/19 10:45 09/12/19 10:44 UNV Insulin Aspart (NovoLOG) BEFORE MEALS AND HS SUBQ 08/19/19 16:30 11/17/19 16:29 Linezolid 300 ml @ 300 mls/hr Q12HR IVPB 08/21/19 21:00 09/30/19 23:59 09/04/19 21:24 Magnesium Oxide (Mag-Ox 400mg) 400 mg THREE TIMES A DAY ORAL 08/23/19 19:45 09/22/19 19:44 09/04/19 17:47 Ondansetron HCl (Zofran) 4 mg Q6H PRN IVP Nausea & Vomiting 08/20/19 10:15 09/19/19 10:14 09/03/19 14:18 Pantoprazole (Protonix) 40 mg EVERY 12 HOURS IVP 08/31/19 21:00 09/30/19 20:59 09/04/19 21:24 Potassium Chloride 30 meq/ Sodium Chloride 1,015 ml @ 125 mls/hr Q8H8M IV 09/04/19 23:00 10/04/19 22:59 09/04/19 22:58 Deng Reyes MD September 05, 2019 10:47"
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
[2019-09-05] MEDS ORDERED: Omnipaque-300 100ml vial INJ PRN (13:15)
--- NOTE | 2019-09-05 13:28 | NUR ---
NURSE NOTES: patient left unit for CT scan w/contrast. singed on consent.
--- NOTE | 2019-09-05 15:26 | NUR ---
CASE MANAGEMENT:REVIEW SI;LUMBAR SPINE OSTEOMYELITIS. AC RENAL FAILURE. ANEMIA. HYPONATREMIA. MRSA SEPSIS. LEFT KNEE SEPTIC ARTHRITIS. 97.9 106 22 92/58 99% 2L NC WBC 12.2 BUN 27 CR 3.0 BG 68 CA 7.2 PHOS 7.0 IS;COLONOSCOPY CT SCAN W/CONTRAST KCL IV DILAUDID IV Q4 HRS PRN CLOTRIMAZOLE MICHAEL 5X DAY PROTONIX IV BID MAG-OX PO TID ZYVOX IV Q12 HRS BENADRYL IV Q6 H RS PRN ALLOPURINOL PO QD MED SURG STATUS DCP;FROM HOME
--- NOTE | 2019-09-05 17:13 | Diagnostic Imaging Report ---
Indication: Abdominal pain Technique: Spiral acquisitions obtained through the abdomen and pelvis. No oral contrast utilized, not necessary. No IV contrast utilized, due to renal insufficiency. Multiplanar reconstructions were generated. Total dose length product 698 mGycm. CTDIvol(s) 11.9 13.8 mGy. Dose reduction achieved using automated exposure control Comparison: 29/11/[address], 07/26/[address] Findings: Assessment for fluid collections is limited due to the lack of IV contrast. However, the previously demonstrated large paraspinous fluid collection surrounding T12 and L1 appears markedly diminished in size, with only perhaps a small residual 2 x 2 cm collection to the left of T12. The bilateral psoas collections have completely resolved. The previously demonstrated superficial collection appears markedly diminished in size, currently measuring 5.4 cm transverse by 1.4 cm in thickness. This was recently drained on 08/29/2011 yielding only serous fluid. The space previously occupied by the T12 vertebral body still demonstrates fluid collection evaluation, but this appearance appears to be baseline for the patient. The gas bubbles within the collection is demonstrated on prior lumbar spine CT are no longer evident. Extensive abnormality of the T12, L1, and L2 segments has been described previously. Lack of IV contrast limits assessment of the solid organs. There is diffuse hepatic low-attenuation, consistent with fatty change. The gallbladder contains gallstones. No biliary ductal dilatation. Pancreas is unremarkable. The spleen is upper limits of normal in size. The adrenals and kidneys are unremarkable. No retroperitoneal or mesenteric mass or adenopathy. No pelvic mass or adenopathy. There are fairly extensive retrococcygeal decubitus changes noted. Previous study demonstrated a large open wound. Currently, there are gas bubbles within the areas of scar tissue. Gas bubbles are also seen in the soft tissues of the bilateral hips, including within what remains of the right hip joint. No discrete fluid collections are evident. There are extensive chronic erosive changes of the bilateral hips as well as extensive chronic deformity. Again demonstrated is a large ventral hernia. This contains the distal transverse colon. No evidence of obstruction or strangulation. This appears unchanged from the prior study. The appendix is normal. No free or loculated intraperitoneal gas or fluid is evident. Included lung bases are clear except for some posterior dependent atelectatic changes. Impression: Limited exam, as described, due to lack of IV contrast administration. Since previous study of 08/17/2019, apparent interim near complete drainage of previously demonstrated spinous/paraspinous abscess. The posterior collection also appears to be nearly completely drained. There is still fluid attenuation material occupying the space previously occupied by the T12 and L1 vertebral bodies, but suspect that this is baseline for this patient. Extensive changes of both hips, with multiple areas of gas. Infection with gas-forming organism in these areas possible. No fluid collections to suggest abscess demonstrated, however. Extensive retrococcygeal decubitus changes Fatty liver Cholelithiasis Large ventral hernia containing the distal transverse colon, also previously described and unchanged Extensive chronic changes of the pelvis, as described previously Findings discussed by phone with at the time of interpretation The CT scanner at [facility] is accredited by the [employer] and the scans are performed using protocols designed to limit radiation exposure to as low as reasonably achievable to attain images of sufficient resolution adequate for diagnostic evaluation.
--- NOTE | 2019-09-05 17:45 | Procedure Note ---
DATE OF PROCEDURE: 09/05/2019 SURGEON: Johnie Ly MD PROCEDURE: Colonoscopy. ANESTHESIA: Per Dr. Og. INSTRUMENT: Olympus pediatric colonoscope. INDICATION: GI bleeding. REASON FOR PROCEDURE: The procedure, risks, benefits, and possible consequences, including hemorrhage, aspiration, perforation and infection, and alternative treatments, were explained to the patient/legal guardian by Dr. Johnie Ly and the patient/legal guardian understood and accepted these risks. DESCRIPTION OF PROCEDURE: After informed consent was obtained and the patient was adequately sedated, pediatric colonoscope was introduced through the colostomy bag into the colon. It seems that the colostomy bag in the mid transverse colon. There was some retained stool material in the colon which makes the study limited. We were able to pass the scope all the way into the cecum. There was no evidence of active bleeding at this time. No obvious diverticulosis, no mass, no obvious polyp was seen. This colon was very short as I mentioned it was in mid transverse colon. The prep was I would say so-so. SUMMARY OF FINDINGS: No evidence of any obvious lower GI bleeding in this limited colonoscopy examination. RECOMMENDATIONS: Resume diet. Followup labs. Monitor hemoglobin and hematocrit, transfuse as needed. Consider doing repeat colonoscopy if the patient shows signs and symptoms of lower GI bleeding. I want to thank, Dr. Glover for this kind referral. Johnie Ly M.D. DR: Alistair JOB#: [id number] CC: Thanh Glover M.D.; Fax#: [phone]
--- NOTE | 2019-09-05 18:59 | NUR ---
NURSE NOTES: Patient slept most of the day, offered wound dressing and cleaning but pt only asked for pain medication, endorsed to oncoming shift.
--- NOTE | 2019-09-05 19:13 | NUR ---
HAND-OFF: Report given to ANISA Cherry.
--- NOTE | 2019-09-05 19:20 | NUR ---
NURSE NOTES: Pt. received from ANISA Yarbrough. Pt. AAOx4, on room air, breathing even and unlabored, complaints of pain and will follow up with pain interventions as ordered. Left UA PICC noted, dressing clean dry and intact. Pt. flushed noted to be itching, pt does not complain of distress. Colostomy noted, intact. Bed is low and locked, side rails x2 up, bed alarm active, and call light in reach.
[2019-09-05] MEDS: Dyna-Hex 2% Top Sol 2oz TOPIC SCH (20:09)
[2019-09-06 04:00] VITALS: BP 124/59
[2019-09-06] MEDS: DiphenhydrAMINE 50mg/ml Inj IVP PRN ×3 (04:05→18:20)
--- NOTE | 2019-09-06 05:02 | NUR ---
NURSE NOTES: Wound dressings changed on sacrum, and posterior right and left thighs. Pt. requested dressings on left hip and left anterior thigh to be changed later.
[2019-09-06] MEDS: NovoLOG Insulin Flexpen SUBQ SCH ×4 (05:53→21:00)
[2019-09-06 06:53] LABS: ANION GAP 11 mmol/L (5-15); BLOOD UREA NITROGEN 23 mg/dL (7-18); CALCIUM 6.9 MG/DL (8.5-10.1); CARBON DIOXIDE 23 MMOL/L (21-32); CHLORIDE 104 MMOL/L (98-107); POTASSIUM 4.4 MMOL/L (3.5-5.1); SODIUM 138 MMOL/L (136-145)
--- NOTE | 2019-09-06 07:14 | NUR ---
HAND-OFF: Report given to Bobby RN and ANISA Roblero.
[2019-09-06 08:00] VITALS: BP 111/53
--- NOTE | 2019-09-06 08:21 | NUR ---
NURSE NOTES: Report received from ANISA Cherry. Pt received in bed with no signs of cardiac or respiratory distress, denies any discomfort or pain at this time, alert and oriented x 4, verbal and able to make needs known, bed in lowest position with alarm on and breaks engaged, colostomy bag in place, PICC line on CHRISTIN patent and intact, will continue to monitor for changes and will proceed with plan of care, call light within reach at all times.
--- NOTE | 2019-09-06 08:22 | General Progress Note ---
Assessment/Plan Problem List: (1) Pain ICD Codes: R52 - Pain, unspecified SNOMED: 89124721 (2) Osteomyelitis ICD Codes: M86.9 - Osteomyelitis, unspecified SNOMED: 94668770 (3) Abscess ICD Codes: L02.91 - Abscess SNOMED: 567577868 (4) Paraplegia ICD Codes: G82.20 - Paraplegia SNOMED: 13321517 (5) Asthma ICD Codes: J45.909 - Unspecified asthma, uncomplicated SNOMED: 149686638 (6) Anemia ICD Codes: D64.9 - Anemia, unspecified SNOMED: 526918378 (7) Acute renal failure ICD Codes: N17.9 - Acute kidney failure, unspecified SNOMED: 08871122 (8) right hip wound infecion/ulcer/osteo (9) Sepsis ICD Codes: A41.9 - Sepsis SNOMED: 54518640 (10) Cellulitis ICD Codes: L03.90 - Cellulitis, unspecified SNOMED: 236457969 (11) Abdominal pain ICD Codes: R10.9 - Unspecified abdominal pain SNOMED: 69052225 (12) Dehydration ICD Codes: E86.0 - Dehydration SNOMED: 66388034 Status: stable, progressing Assessment/Plan: cont iv abx per id wound care daily pain rx as needed monitor h/h transfuse as needed monitor for bleeding colostomy care PPI monitor cr dvt/stress ulcer prophylaxis Subjective ROS Limited/Unobtainable: No Constitutional: Reports: malaise, weakness HEENT: Reports: no symptoms Cardiovascular: Reports: no symptoms Respiratory: Reports: cough Gastrointestinal/Abdominal: Reports: no symptoms Genitourinary: Reports: no symptoms Neurologic/Psychiatric: Reports: numbness, pre-existing deficit, weakness Endocrine: Reports: no symptoms Hematologic/Lymphatic: Reports: anemia Allergies: Coded Allergies: CEFTRIAXONE (Verified Allergy, Intermediate, SOB, HR-140bpm, face swollen , pt became red, 10/24/15) CODEINE (Verified Allergy, Intermediate, SWELLING, 01/03/11) LATEX (Verified Allergy, Intermediate, SWELLING, 01/03/11) PIPERACILLIN (Verified Allergy, Intermediate, Itching, 08/29/15) 08/29/15 tolerates Ceftaroline TAZOBACTAM (Verified Allergy, Intermediate, Itching, 01/29/15) POLYMYXIN B (Verified Allergy, Mild, Rash, 04/08/16) Suspected allergy reported by VANCOMYCIN (Verified Allergy, Mild, 07/15/14) ASPARAGINASE (Verified Allergy, Unknown, 01/28/14) CEFUROXIME (Unverified Allergy, Unknown, 04/19/16) IRON (Verified Allergy, Unknown, 01/28/14) LATEX, NATURAL RUBBER (Unverified Allergy, Unknown, 06/18/16) All Systems: reviewed and negative except above Subjective no events. w/o complaints. pain controlled. Cr not any better. still 3. no fever or chills. no cp/sob. Objective Last 24 Hour Vital Signs Date Time Temp Pulse Resp B/P (MAP) Pulse Ox O2 Delivery O2 Flow Rate FiO2 09/06/19 04:00 98.2 98 18 124/59 (80) 96 09/05/19 21:00 Room Air 09/05/19 20:00 98.4 114 18 107/50 (69) 95 09/05/19 18:25 98.2 09/05/19 16:00 98.2 110 17 112/65 (81) 99 09/05/19 12:00 97.9 106 18 92/58 (69) 100 09/05/19 12:00 97.9 106 18 92/58 (69) 100 09/05/19 10:36 100 18 19/59 100 Nasal Cannula 2 09/05/19 10:36 98 22 99 09/05/19 10:30 97.8 100 15 115/61 100 Nasal Cannula 2 09/05/19 10:15 98 17 107/57 100 Nasal Cannula 2 09/05/19 10:00 100 13 110/60 100 Nasal Cannula 2 09/05/19 09:55 100 12 107/58 100 Nasal Cannula 2 09/05/19 09:50 97.0 100 13 94/64 100 Nasal Cannula 3 09/05/19 09:49 98 20 99 09/05/19 09:00 Room Air Intake and Output 09/05/19 09/06/19 19:00 07:00 Intake Total 200 ml 1625 ml Balance 200 ml 1625 ml Intake Oral 500 ml IV Total 1125 ml Other 200 ml # Voids 2 1 Laboratory Tests 09/06/19 05:22: Sodium Level 138, Potassium Level 4.4, Chloride Level 104, Carbon Dioxide Level 23, Anion Gap 11, Blood Urea Nitrogen 23H, Creatinine 3.0H, Estimat Glomerular Filtration Rate 20.4, Glucose Level 64L, Calcium Level 6.9L Height (Feet): 5 Height (Inches): 5.00 Weight (Pounds): 222 Objective General Appearance: WD/WN, alert EENT: normal ENT inspection Neck: non-tender, normal alignment, supple Cardiovascular: normal peripheral pulses, normal rate, regular rhythm Respiratory/Chest: chest wall non-tender, lungs clear, normal breath sounds, no respiratory distress Abdomen: normal bowel sounds, non tender, soft, no organomegaly Edema: no edema noted Arm (L), no edema noted Arm (R), no edema noted Leg (L), no edema noted Leg (R), no edema noted Pedal (L), no edema noted Pedal (R), no edema noted Generalized Neurologic: motor weakness, sensory deficit Skin: normal pigmentation Lymphatic: normal anterior cervical (L), normal anterior cervical (R) Jacques Chanel MD September 06, 2019 08:22
[2019-09-06] MEDS: Docusate 100mg cap ORAL SCH ×2 (09:00→18:00)
--- NOTE | 2019-09-06 09:01 | Pulmonology Progress Note ---
Subjective ROS Limited/Unobtainable: No Constitutional: Denies: fever, chills Gastrointestinal/Abdominal: Denies: nausea, vomiting, diarrhea Musculoskeletal: Reports: pain Allergies: Coded Allergies: CEFTRIAXONE (Verified Allergy, Intermediate, SOB, HR-140bpm, face swollen , pt became red, 10/24/15) CODEINE (Verified Allergy, Intermediate, SWELLING, 01/03/11) LATEX (Verified Allergy, Intermediate, SWELLING, 01/03/11) PIPERACILLIN (Verified Allergy, Intermediate, Itching, 08/29/15) 08/29/15 tolerates Ceftaroline TAZOBACTAM (Verified Allergy, Intermediate, Itching, 01/29/15) POLYMYXIN B (Verified Allergy, Mild, Rash, 04/08/16) Suspected allergy reported by VANCOMYCIN (Verified Allergy, Mild, 07/15/14) ASPARAGINASE (Verified Allergy, Unknown, 01/28/14) CEFUROXIME (Unverified Allergy, Unknown, 04/19/16) IRON (Verified Allergy, Unknown, 01/28/14) LATEX, NATURAL RUBBER (Unverified Allergy, Unknown, 06/18/16) All Systems: reviewed and negative except above Subjective d/w radiology no need for drain gas noted on CT Objective Last 24 Hour Vital Signs Date Time Temp Pulse Resp B/P (MAP) Pulse Ox O2 Delivery O2 Flow Rate FiO2 09/06/19 08:00 97.7 100 18 111/53 (72) 94 09/06/19 04:00 98.2 98 18 124/59 (80) 96 09/05/19 21:00 Room Air 09/05/19 20:00 98.4 114 18 107/50 (69) 95 09/05/19 18:25 98.2 09/05/19 16:00 98.2 110 17 112/65 (81) 99 09/05/19 12:00 97.9 106 18 92/58 (69) 100 09/05/19 12:00 97.9 106 18 92/58 (69) 100 09/05/19 10:36 100 18 19/59 100 Nasal Cannula 2 09/05/19 10:36 98 22 99 09/05/19 10:30 97.8 100 15 115/61 100 Nasal Cannula 2 09/05/19 10:15 98 17 107/57 100 Nasal Cannula 2 09/05/19 10:00 100 13 110/60 100 Nasal Cannula 2 09/05/19 09:55 100 12 107/58 100 Nasal Cannula 2 09/05/19 09:50 97.0 100 13 94/64 100 Nasal Cannula 3 09/05/19 09:49 98 20 99 09/05/19 09:00 Room Air Intake and Output 09/05/19 09/06/19 19:00 07:00 Intake Total 200 ml 1625 ml Balance 200 ml 1625 ml Intake Oral 500 ml IV Total 1125 ml Other 200 ml # Voids 2 1 Objective GENERAL: Patient is an ill-appearing female. in pain HEENT: Negative. NECK: Supple. LUNGS: Good air entry. CARDIAC: S1, S2. Regular rate and rhythm. ABDOMEN: Soft, nontender. EXTREMITIES: With significant atrophy. Laboratory Tests 09/06/19 05:22: Sodium Level 138, Potassium Level 4.4, Chloride Level 104, Carbon Dioxide Level 23, Anion Gap 11, Blood Urea Nitrogen 23H, Creatinine 3.0H, Estimat Glomerular Filtration Rate 20.4, Glucose Level 64L, Calcium Level 6.9L Current Medications Medications (Trade) Dose Ordered Sig/Pineda Route PRN Reason Start Time Stop Time Status Last Admin Dose Admin Acetaminophen (Tylenol) 650 mg Q4H PRN ORAL Mild Pain (Pain Scale 1-3) 08/20/19 10:15 09/19/19 10:14 Al Hydroxide/Mg Hydroxide (Mylanta) 30 ml Q4H PRN ORAL INDIGESTION 08/20/19 10:15 09/19/19 10:14 Allopurinol (Zyloprim) 100 mg DAILY ORAL 09/02/19 09:00 10/02/19 08:59 09/03/19 09:14 Barium Sulfate (Readi-Cat 2) 450 ml NOW PRN ORAL Radiology Procedure 09/05/19 13:15 09/07/19 13:12 Cetylpyridinium Chloride (Cepacol) 1 lozg Q4H PRN MICHAEL sore throat 08/31/19 08:45 11/29/19 08:44 09/02/19 04:37 Chlorhexidine Gluconate (Nereida-Hex 2%) 1 applic DAILY@2000 TOPIC 08/18/19 20:00 11/16/19 19:59 09/05/19 20:09 Clotrimazole (Mycelex Elias) 10 mg FIVE TIMES A DAY MICHAEL 09/02/19 10:00 09/09/19 09:59 09/05/19 19:11 Dextrose (Dextrose 50%) 25 ml Q30M PRN IV Hypoglycemia 08/19/19 13:15 11/17/19 13:14 Dextrose (Dextrose 50%) 50 ml Q30M PRN IV Hypoglycemia 08/19/19 13:15 11/17/19 13:14 Diphenhydramine HCl (Benadryl) 25 mg Q6H PRN IVP Itching 08/21/19 10:30 09/20/19 10:29 09/06/19 04:05 Docusate Sodium (Colace) 100 mg TWICE A DAY ORAL 08/31/19 18:00 09/30/19 17:59 08/31/19 17:27 Hydrocortisone (Hydrocortisone) 1 applic BID PRN TOPIC Itching topical 09/03/19 10:15 12/02/19 10:14 09/04/19 21:05 Hydromorphone HCl (Dilaudid) 2 mg Q4H PRN IVP Severe Pain (Pain Scale 7-10) 09/05/19 10:47 09/12/19 10:46 09/06/19 04:06 Insulin Aspart (NovoLOG) BEFORE MEALS AND HS SUBQ 08/19/19 16:30 11/17/19 16:29 Iohexol (OMNIPAQUE-300 100ml) 100 ml NOW PRN INJ Radiology Procedure 09/05/19 13:15 09/07/19 13:12 Linezolid 300 ml @ 300 mls/hr Q12HR IVPB 08/21/19 21:00 09/30/19 23:59 09/05/19 20:10 Magnesium Oxide (Mag-Ox 400mg) 400 mg THREE TIMES A DAY ORAL 08/23/19 19:45 09/22/19 19:44 09/05/19 17:49 Ondansetron HCl (Zofran) 4 mg Q6H PRN IVP Nausea & Vomiting 08/20/19 10:15 09/19/19 10:14 09/03/19 14:18 Pantoprazole (Protonix) 40 mg EVERY 12 HOURS IVP 08/31/19 21:00 09/30/19 20:59 09/05/19 20:10 Potassium Chloride 30 meq/ Sodium Chloride 1,015 ml @ 75 mls/hr [id number] IV 09/05/19 13:00 10/05/19 12:59 09/05/19 12:42 Assessment/Plan Assessment/Plan IMPRESSION: Multiple abscesses s/p aspiration, hyponatremia, hyperkalemia, acute renal failure, shortness of breath, dyspnea, leukocytosis, anemia, thrombocytosis. ARF, possible GIB, low mag PLAN PICC - care linezolid IV x24 days for EGD possibly pain control poor surgical candidate surgery to comment on CT findings monitor renal function monitor vitals pain control as is impression, plan, and exam edited and reviewed in detail care discussed with Thanh Garcia MD September 06, 2019 09:01
[2019-09-06] MEDS: Pantoprazole Inj IVP SCH ×2 (09:44→21:12)
[2019-09-06] MEDS: Allopurinol 100mg Tab ORAL SCH (09:44)
[2019-09-06] MEDS: Magnesium Oxide 400mg tab ORAL SCH ×3 (09:44→18:19)
--- NOTE | 2019-09-06 10:01 | NUR ---
RD ASSESSMENT & RECOMMENDATIONS SEE CARE ACTIVITY FOR COMPLETE ASSESSMENT DAILY ESTIMATED NEEDS: Needs based on Wound + paraplegia, 65 kg abw 28-30 kcals/kg 5377-3427 total kcals 1.25-2 g protein/kg 81-130 g total protein 1L Fluid restriction per MD NUTRITION DIAGNOSIS: (1) Increased KCAL, protein, and micronutrient needs r/t wound healing as evidenced pt w/ multiple full thickness wounds @ sacrum, R buttock, L ischium, R knee, posterior L leg, lateral R tibia, unstageable wound @ distal/lateral R tibia, and DTPI @ R gluteal cheek, admitted w/ new paraspinal abscess as well. (2) Altered nutrition related values R/T diabetes as evidenced by elev BGs (192, 161-> now improved 105, 145), A1C of 8.4 (07/29/19). CURRENT DIET: Regular PO DIET RECOMMENDATIONS--->>CCHO MED/ LOW PHOS DIET (Fluid restriction per MD) ADDITIONAL RECOMMENDATIONS: * Recalibrated bedscale wt for accurate CBW-> monitor weekly wts * WOUND CARE: MVI w/ min x1+VIT C 500mg BID ZnSO4 220mg QD x 10 days Luiz BID recommended but pt w/ h/o refusal * Monitor BGs- now low (62 49 59), A1C >8.0, pt refusing NISS and checks -> rec HS D5 infusion * Monitor lytes, replete as needed; Rec D5 for hypoglycemia
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
[2019-09-06 12:00] VITALS: BP 101/51
--- NOTE | 2019-09-06 13:05 | Infectious Diseases Prog Note ---
Assessment/Plan Assessment/Plan A 1. lumbar abscess s/p drainage Wound cultures: MRSA & MDR Pseudomonas 2. MRSA sepsis 3. left knee septic arthritis 4. paraplegia 5. Anemia 6. Rash P 1. continue linezolid X 24 days 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 Respiratory: Reports: no symptoms Cardiovascular: Reports: no symptoms Gastrointestinal/Abdominal: Reports: no symptoms Skin: Reports: rash Musculoskeletal: Reports: pain Allergies: Coded Allergies: CEFTRIAXONE (Verified Allergy, Intermediate, SOB, HR-140bpm, face swollen , pt became red, 10/24/15) CODEINE (Verified Allergy, Intermediate, SWELLING, 01/03/11) LATEX (Verified Allergy, Intermediate, SWELLING, 01/03/11) PIPERACILLIN (Verified Allergy, Intermediate, Itching, 08/29/15) 08/29/15 tolerates Ceftaroline TAZOBACTAM (Verified Allergy, Intermediate, Itching, 01/29/15) POLYMYXIN B (Verified Allergy, Mild, Rash, 04/08/16) Suspected allergy reported by VANCOMYCIN (Verified Allergy, Mild, 07/15/14) ASPARAGINASE (Verified Allergy, Unknown, 01/28/14) CEFUROXIME (Unverified Allergy, Unknown, 04/19/16) IRON (Verified Allergy, Unknown, 01/28/14) LATEX, NATURAL RUBBER (Unverified Allergy, Unknown, 06/18/16) Objective Vital Signs Last 24 Hour Vital Signs Date Time Temp Pulse Resp B/P (MAP) Pulse Ox O2 Delivery O2 Flow Rate FiO2 09/06/19 12:00 97.5 102 18 101/51 (68) 96 09/06/19 10:48 97.7 09/06/19 08:00 97.7 100 18 111/53 (72) 94 09/06/19 04:00 98.2 98 18 124/59 (80) 96 09/05/19 21:00 Room Air 09/05/19 20:00 98.4 114 18 107/50 (69) 95 09/05/19 16:00 98.2 110 17 112/65 (81) 99 Height (Feet): 5 Height (Inches): 5.00 Weight (Pounds): 222 General Appearance: no acute distress HEENT: mucous membranes moist Respiratory/Chest: lungs clear Cardiovascular: tachycardia, other - PICC line Abdomen: soft, non tender Extremities: other - dependenrt edema Neurologic/Psychiatric: alert, oriented x 3, responsive, other - paraplegia Laboratory Tests Test 09/06/19 05:22 Sodium Level 138 MMOL/L (136-145) Potassium Level 4.4 MMOL/L (3.5-5.1) Chloride Level 104 MMOL/L (98-107) Carbon Dioxide Level 23 MMOL/L (21-32) Anion Gap 11 mmol/L (5-15) Blood Urea Nitrogen 23 mg/dL (7-18) H Creatinine 3.0 MG/DL (0.55-1.30) H Estimat Glomerular Filtration Rate 20.4 mL/min (>60) Glucose Level 64 MG/DL (74-106) L Calcium Level 6.9 MG/DL (8.5-10.1) L Current Medications Medications (Trade) Dose Ordered Sig/Pineda Route PRN Reason Start Time Stop Time Status Last Admin Dose Admin Acetaminophen (Tylenol) 650 mg Q4H PRN ORAL Mild Pain (Pain Scale 1-3) 08/20/19 10:15 09/19/19 10:14 Al Hydroxide/Mg Hydroxide (Mylanta) 30 ml Q4H PRN ORAL INDIGESTION 08/20/19 10:15 09/19/19 10:14 Allopurinol (Zyloprim) 100 mg DAILY ORAL 09/02/19 09:00 10/02/19 08:59 09/06/19 09:44 Barium Sulfate (Readi-Cat 2) 450 ml NOW PRN ORAL Radiology Procedure 09/05/19 13:15 09/07/19 13:12 Cetylpyridinium Chloride (Cepacol) 1 lozg Q4H PRN MICHAEL sore throat 08/31/19 08:45 11/29/19 08:44 09/02/19 04:37 Chlorhexidine Gluconate (Nereida-Hex 2%) 1 applic DAILY@1999 TOPIC 08/18/19 20:00 11/16/19 19:59 09/05/19 20:09 Clotrimazole (Mycelex Elias) 10 mg FIVE TIMES A DAY MICHAEL 09/02/19 10:00 09/09/19 09:59 09/06/19 09:47 Dextrose (Dextrose 50%) 25 ml Q30M PRN IV Hypoglycemia 08/19/19 13:15 11/17/19 13:14 Dextrose (Dextrose 50%) 50 ml Q30M PRN IV Hypoglycemia 08/19/19 13:15 11/17/19 13:14 Diphenhydramine HCl (Benadryl) 25 mg Q6H PRN IVP Itching 08/21/19 10:30 09/20/19 10:29 09/06/19 10:17 Docusate Sodium (Colace) 100 mg TWICE A DAY ORAL 08/31/19 18:00 09/30/19 17:59 08/31/19 17:27 Hydrocortisone (Hydrocortisone) 1 applic BID PRN TOPIC Itching topical 09/03/19 10:15 12/02/19 10:14 09/04/19 21:05 Hydromorphone HCl (Dilaudid) 2 mg Q4H PRN IVP Severe Pain (Pain Scale 7-10) 09/05/19 10:47 09/12/19 10:46 09/06/19 10:18 Insulin Aspart (NovoLOG) BEFORE MEALS AND HS SUBQ 08/19/19 16:30 11/17/19 16:29 Iohexol (OMNIPAQUE-300 100ml) 100 ml NOW PRN INJ Radiology Procedure 09/05/19 13:15 09/07/19 13:12 Linezolid 300 ml @ 300 mls/hr Q12HR IVPB 08/21/19 21:00 09/30/19 23:59 09/06/19 09:45 Magnesium Oxide (Mag-Ox 400mg) 400 mg THREE TIMES A DAY ORAL 08/23/19 19:45 09/22/19 19:44 09/06/19 09:44 Ondansetron HCl (Zofran) 4 mg Q6H PRN IVP Nausea & Vomiting 08/20/19 10:15 09/19/19 10:14 09/03/19 14:18 Pantoprazole (Protonix) 40 mg EVERY 12 HOURS IVP 08/31/19 21:00 09/30/19 20:59 09/06/19 09:44 Potassium Chloride 30 meq/ Sodium Chloride 1,015 ml @ 75 mls/hr [id number] IV 09/05/19 13:00 10/05/19 12:59 09/05/19 12:42 Vaughn Juárez MD September 06, 2019 13:05
[2019-09-06 16:00] VITALS: BP 117/59
--- NOTE | 2019-09-06 19:04 | General Progress Note ---
Assessment/Plan Status: stable, progressing Assessment/Plan: LLE ulcers not the source of her WBC elevation and CT reviewed which looks improved over the prior scan. Will defer to ID for abx management but no surgical intervention is indicated based on clinical evaluation. Recommend continuing the dressing changes to the hip, sacrum and ischial ulcers as well as left posterior thigh ulcer. Can stop packing the left knee ulcer. As for the gas seen on the ct scan this is likely explained by her prior drains being in place and the fact that she has multiple deep chronic ulcers in the vicinity as opposed to gas forming bacteria. Again do not see need for surgical intervention. If clinical course changes will re-evaluate. Subjective Date patient seen: September 06, 2019 Time patient seen: 18:55 Constitutional: Reports: weakness HEENT: Reports: no symptoms Allergies: Coded Allergies: CEFTRIAXONE (Verified Allergy, Intermediate, SOB, HR-140bpm, face swollen , pt became red, 10/24/15) CODEINE (Verified Allergy, Intermediate, SWELLING, 01/03/11) LATEX (Verified Allergy, Intermediate, SWELLING, 01/03/11) PIPERACILLIN (Verified Allergy, Intermediate, Itching, 08/29/15) 08/29/15 tolerates Ceftaroline TAZOBACTAM (Verified Allergy, Intermediate, Itching, 01/29/15) POLYMYXIN B (Verified Allergy, Mild, Rash, 04/08/16) Suspected allergy reported by VANCOMYCIN (Verified Allergy, Mild, 07/15/14) ASPARAGINASE (Verified Allergy, Unknown, 01/28/14) CEFUROXIME (Unverified Allergy, Unknown, 04/19/16) IRON (Verified Allergy, Unknown, 01/28/14) LATEX, NATURAL RUBBER (Unverified Allergy, Unknown, 06/18/16) Subjective F/u evaluation on patient well known to me. Underwent I&D of loculated left hip abscess and cultures + for MRSA and MDR Pseudomonas. Over the last week she developed decreased Hb and increased creatinine as well a WBC. She underwent EGD and c-scope that were - for source of gi bleed. She has developed a macular rash on her upper body and UEs. Her creatinine is at 3 and is being followed by nephrology. She underwent repeat CT scan showing significant resolution of her fluid collections in her back. Her back pain has resolved. She has low appetite. Is on Zyvox and being followed by ID. Objective Last 24 Hour Vital Signs Date Time Temp Pulse Resp B/P (MAP) Pulse Ox O2 Delivery O2 Flow Rate FiO2 09/06/19 16:00 97.9 104 19 117/59 (78) 97 09/06/19 14:53 97.5 09/06/19 12:00 97.5 102 18 101/51 (68) 96 09/06/19 09:00 Room Air 09/06/19 08:00 97.7 100 18 111/53 (72) 94 09/06/19 04:00 98.2 98 18 124/59 (80) 96 09/05/19 21:00 Room Air 09/05/19 20:00 98.4 114 18 107/50 (69) 95 Intake and Output 09/05/19 09/06/19 19:00 07:00 Intake Total 200 ml 1700 ml Balance 200 ml 1700 ml Intake Oral 500 ml IV Total 1200 ml Other 200 ml # Voids 2 1 Laboratory Tests 09/06/19 05:22: Sodium Level 138, Potassium Level 4.4, Chloride Level 104, Carbon Dioxide Level 23, Anion Gap 11, Blood Urea Nitrogen 23H, Creatinine 3.0H, Estimat Glomerular Filtration Rate 20.4, Glucose Level 64L, Calcium Level 6.9L Height (Feet): 5 Height (Inches): 5.00 Weight (Pounds): 222 General Appearance: no apparent distress, alert Skin: other - LLE ulcer by the knee with no tunneling and no drainage. Left hip ulcer with no purulent drainage expressable. Serous drainage on dressings with some fat liquefaction. Periskin with no erythema or warmth. Ulcer is large on the inside with signifacnt undermining but not more so than last week. Keegan Cristobal MD September 06, 2019 19:04
--- NOTE | 2019-09-06 19:21 | NUR ---
HAND-OFF: Report given to ANISA Cherry.
--- NOTE | 2019-09-06 19:45 | NUR ---
HAND-OFF: Report given to Dilip Trevino RN. Patient awake and alert, watching television, colostomy bag in place, double lumen PICC in left upper arm patent and running IV fluids, bed in lowest position, call light within reach, side rails up x 3, pain treated with Dilaudid, Nausea treated with Zofran, wound care done by Dr. Keegan Cristobal.
--- NOTE | 2019-09-06 19:50 | NUR ---
NURSE NOTES: Pt. received from ANISA Rosales and ANISA Roblero. Pt. AAOx4, on room air, breathing even and unlabored, no complaints of pain an no nausea at this time. PICC left upper arm intact, patent. Colostomy noted, secured, and intact. Bed is low and locked, side rails x2 up, bed alarm active, and call light in reach.
[2019-09-06 20:00] VITALS: BP 114/69
[2019-09-06] MEDS: Dyna-Hex 2% Top Sol 2oz TOPIC SCH (21:12)
[2019-09-07] VITALS: BP 116/61
[2019-09-07 04:00] VITALS: BP 128/65
[2019-09-07] MEDS: NovoLOG Insulin Flexpen SUBQ SCH ×4 (06:08→20:28)
[2019-09-07] MEDS: DiphenhydrAMINE 50mg/ml Inj IVP PRN ×3 (06:21→23:31)
--- NOTE | 2019-09-07 07:32 | NUR ---
NURSE NOTES: Received report from ANISA Cherry. Patient in bed, sleeping. On room air, no signs of distress or labored breathing. PICC line infusing IV fluids. Bed in lwoest position with call light in reach. Will continue with plan of care.
--- NOTE | 2019-09-07 07:46 | NUR ---
HAND-OFF: Report given to ANISA Graves.
[2019-09-07 08:00] VITALS: BP 114/63
--- NOTE | 2019-09-07 08:49 | Pulmonology Progress Note ---
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 Gastrointestinal/Abdominal: Reports: no symptoms Skin: Reports: rash Musculoskeletal: Reports: pain Allergies: Coded Allergies: CEFTRIAXONE (Verified Allergy, Intermediate, SOB, HR-140bpm, face swollen , pt became red, 10/24/15) CODEINE (Verified Allergy, Intermediate, SWELLING, 01/03/11) LATEX (Verified Allergy, Intermediate, SWELLING, 01/03/11) PIPERACILLIN (Verified Allergy, Intermediate, Itching, 08/29/15) 08/29/15 tolerates Ceftaroline TAZOBACTAM (Verified Allergy, Intermediate, Itching, 01/29/15) POLYMYXIN B (Verified Allergy, Mild, Rash, 04/08/16) Suspected allergy reported by VANCOMYCIN (Verified Allergy, Mild, 07/15/14) ASPARAGINASE (Verified Allergy, Unknown, 01/28/14) CEFUROXIME (Unverified Allergy, Unknown, 04/19/16) IRON (Verified Allergy, Unknown, 01/28/14) LATEX, NATURAL RUBBER (Unverified Allergy, Unknown, 06/18/16) All Systems: reviewed and negative except above Subjective d/w radiology no need for drain gas noted on CT ID and surgery aware Objective Last 24 Hour Vital Signs Date Time Temp Pulse Resp B/P (MAP) Pulse Ox O2 Delivery O2 Flow Rate FiO2 09/07/19 04:00 97.7 106 22 128/65 (86) 98 09/07/19 00:00 97.9 108 22 116/61 (79) 98 09/06/19 21:00 Room Air 09/06/19 20:00 97.0 111 22 114/69 (84) 96 09/06/19 18:50 97.9 09/06/19 16:00 97.9 104 19 117/59 (78) 97 09/06/19 12:00 97.5 102 18 101/51 (68) 96 09/06/19 09:00 Room Air Intake and Output 09/06/19 09/07/19 19:00 07:00 Intake Total 2650.00 ml 660 ml Balance 2650.00 ml 660 ml Intake Oral 1600 ml IV Total 1050.00 ml 300 ml Other 360 ml # Voids 1 Objective GENERAL: Patient is an ill-appearing female. in pain HEENT: Negative. NECK: Supple. LUNGS: Good air entry. CARDIAC: S1, S2. Regular rate and rhythm. ABDOMEN: Soft, nontender. EXTREMITIES: With significant atrophy. Laboratory Tests 09/07/19 08:25: Sodium Level [Pending], Potassium Level [Pending], Chloride Level [Pending], Carbon Dioxide Level [Pending], Blood Urea Nitrogen [Pending], Creatinine [ Pending], Estimat Glomerular Filtration Rate [Pending], Glucose Level [Pending] , Calcium Level [Pending], Magnesium Level [Pending] Current Medications Medications (Trade) Dose Ordered Sig/Pineda Route PRN Reason Start Time Stop Time Status Last Admin Dose Admin Acetaminophen (Tylenol) 650 mg Q4H PRN ORAL Mild Pain (Pain Scale 1-3) 08/20/19 10:15 09/19/19 10:14 Al Hydroxide/Mg Hydroxide (Mylanta) 30 ml Q4H PRN ORAL INDIGESTION 08/20/19 10:15 09/19/19 10:14 Allopurinol (Zyloprim) 100 mg DAILY ORAL 09/02/19 09:00 10/02/19 08:59 09/06/19 09:44 Barium Sulfate (Readi-Cat 2) 450 ml NOW PRN ORAL Radiology Procedure 09/05/19 13:15 09/07/19 13:12 Cetylpyridinium Chloride (Cepacol) 1 lozg Q4H PRN MICHAEL sore throat 08/31/19 08:45 11/29/19 08:44 09/06/19 22:32 Chlorhexidine Gluconate (Nereida-Hex 2%) 1 applic DAILY@2000 TOPIC 08/18/19 20:00 11/16/19 19:59 09/06/19 21:12 Clotrimazole (Mycelex Elias) 10 mg FIVE TIMES A DAY MICHAEL 09/02/19 10:00 09/09/19 09:59 09/06/19 18:19 Dextrose (Dextrose 50%) 25 ml Q30M PRN IV Hypoglycemia 08/19/19 13:15 11/17/19 13:14 Dextrose (Dextrose 50%) 50 ml Q30M PRN IV Hypoglycemia 08/19/19 13:15 11/17/19 13:14 Diphenhydramine HCl (Benadryl) 25 mg Q6H PRN IVP Itching 08/21/19 10:30 09/20/19 10:29 09/07/19 06:21 Docusate Sodium (Colace) 100 mg TWICE A DAY ORAL 08/31/19 18:00 09/30/19 17:59 08/31/19 17:27 Hydrocortisone (Hydrocortisone) 1 applic BID PRN TOPIC Itching topical 09/03/19 10:15 12/02/19 10:14 09/04/19 21:05 Hydromorphone HCl (Dilaudid) 2 mg Q4H PRN IVP Severe Pain (Pain Scale 7-10) 09/05/19 10:47 09/12/19 10:46 09/07/19 06:21 Insulin Aspart (NovoLOG) BEFORE MEALS AND HS SUBQ 08/19/19 16:30 11/17/19 16:29 Iohexol (OMNIPAQUE-300 100ml) 100 ml NOW PRN INJ Radiology Procedure 09/05/19 13:15 09/07/19 13:12 Linezolid 300 ml @ 300 mls/hr Q12HR IVPB 08/21/19 21:00 09/30/19 23:59 09/06/19 21:12 Magnesium Oxide (Mag-Ox 400mg) 400 mg THREE TIMES A DAY ORAL 08/23/19 19:45 09/22/19 19:44 09/06/19 18:19 Ondansetron HCl (Zofran) 4 mg Q6H PRN IVP Nausea & Vomiting 08/20/19 10:15 09/19/19 10:14 09/06/19 18:19 Pantoprazole (Protonix) 40 mg EVERY 12 HOURS IVP 08/31/19 21:00 09/30/19 20:59 09/06/19 21:12 Potassium Chloride 30 meq/ Sodium Chloride 1,015 ml @ 75 mls/hr [id number] IV 09/05/19 13:00 10/05/19 12:59 09/07/19 06:21 Assessment/Plan Assessment/Plan IMPRESSION: Multiple abscesses s/p aspiration, hyponatremia, hyperkalemia, acute renal failure, shortness of breath, dyspnea, leukocytosis, anemia, thrombocytosis. ARF, possible GIB, low mag PLAN PICC - care linezolid IV x23 days pain control poor surgical candidate surgery to comment on CT findings monitor renal function - not improved monitor vitals pain control as is ? dc planning if ok by all impression, plan, and exam edited and reviewed in detail care discussed with Thanh Garcia MD September 07, 2019 08:49
[2019-09-07 08:57] LABS: ANION GAP 11 mmol/L (5-15); BLOOD UREA NITROGEN 21 mg/dL (7-18); CARBON DIOXIDE 23 MMOL/L (21-32); CHLORIDE 103 MMOL/L (98-107); CREATININE 2.5 MG/DL (0.55-1.30); POTASSIUM 4.5 MMOL/L (3.5-5.1); SODIUM 137 MMOL/L (136-145)
[2019-09-07] MEDS: Docusate 100mg cap ORAL SCH ×2 (09:00→18:00)
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
[2019-09-07] MEDS: Allopurinol 100mg Tab ORAL SCH (09:53)
[2019-09-07] MEDS: Magnesium Oxide 400mg tab ORAL SCH ×3 (09:53→18:25)
[2019-09-07] MEDS: Pantoprazole Inj IVP SCH ×2 (09:53→20:27)
--- NOTE | 2019-09-07 11:13 | Infectious Diseases Prog Note ---
"Assessment/Plan Assessment/Plan antibiotics : linezolid colistin 5.18.20 A 1. lumbar abscess s/p drainage with MRSA | pseudomonas 2. MRSA sepsis 3. left knee septic arthritis 4. paraplegia 5. renal failure P 1. continue linezolid 23 more days 2. will follow up cultures Subjective ROS Limited/Unobtainable: Yes Allergies: Coded Allergies: CEFTRIAXONE (Verified Allergy, Intermediate, SOB, HR-140bpm, face swollen , pt became red, 10/24/15) CODEINE (Verified Allergy, Intermediate, SWELLING, 01/03/11) LATEX (Verified Allergy, Intermediate, SWELLING, 01/03/11) PIPERACILLIN (Verified Allergy, Intermediate, Itching, 08/29/15) 08/29/15 tolerates Ceftaroline TAZOBACTAM (Verified Allergy, Intermediate, Itching, 01/29/15) POLYMYXIN B (Verified Allergy, Mild, Rash, 04/08/16) Suspected allergy reported by MD VANCOMYCIN (Verified Allergy, Mild, 07/15/14) ASPARAGINASE (Verified Allergy, Unknown, 01/28/14) CEFUROXIME (Unverified Allergy, Unknown, 04/19/16) IRON (Verified Allergy, Unknown, 01/28/14) LATEX, NATURAL RUBBER (Unverified Allergy, Unknown, 06/18/16) Objective Vital Signs Last 24 Hour Vital Signs Date Time Temp Pulse Resp B/P (MAP) Pulse Ox O2 Delivery O2 Flow Rate FiO2 09/07/19 08:00 97.8 101 20 114/63 (80) 98 09/07/19 04:00 97.7 106 22 128/65 (86) 98 09/07/19 00:00 97.9 108 22 116/61 (79) 98 09/06/19 21:00 Room Air 09/06/19 20:00 97.0 111 22 114/69 (84) 96 09/06/19 18:50 97.9 09/06/19 16:00 97.9 104 19 117/59 (78) 97 09/06/19 12:00 97.5 102 18 101/51 (68) 96 Height (Feet): 5 Height (Inches): 5.00 Weight (Pounds): 222 Respiratory/Chest: lungs clear Cardiovascular: normal rate, regular rhythm, no gallop/murmur Abdomen: soft, non tender Extremities: no edema, other - left arm PICC Laboratory Tests Test 09/07/19 08:25 Sodium Level 137 MMOL/L (136-145) Potassium Level 4.5 MMOL/L (3.5-5.1) Chloride Level 103 MMOL/L (98-107) Carbon Dioxide Level 23 MMOL/L (21-32) Anion Gap 11 mmol/L (5-15) Blood Urea Nitrogen 21 mg/dL (7-18) H Creatinine 2.5 MG/DL (0.55-1.30) H Estimat Glomerular Filtration Rate 25.1 mL/min (>60) Glucose Level 71 MG/DL (74-106) L Calcium Level 7.0 MG/DL (8.5-10.1) L Magnesium Level 1.6 MG/DL (1.8-2.4) L Current Medications Medications (Trade) Dose Ordered Sig/Pineda Route PRN Reason Start Time Stop Time Status Last Admin Dose Admin Acetaminophen (Tylenol) 650 mg Q4H PRN ORAL Mild Pain (Pain Scale 1-3) 08/20/19 10:15 09/19/19 10:14 Al Hydroxide/Mg Hydroxide (Mylanta) 30 ml Q4H PRN ORAL INDIGESTION 08/20/19 10:15 09/19/19 10:14 Allopurinol (Zyloprim) 100 mg DAILY ORAL 09/02/19 09:00 10/02/19 08:59 09/07/19 09:53 Barium Sulfate (Readi-Cat 2) 450 ml NOW PRN ORAL Radiology Procedure 09/05/19 13:15 09/07/19 13:12 Cetylpyridinium Chloride (Cepacol) 1 lozg Q4H PRN MICHAEL sore throat 08/31/19 08:45 11/29/19 08:44 09/06/19 22:32 Chlorhexidine Gluconate (Nereida-Hex 2%) 1 applic DAILY@2000 TOPIC 08/18/19 20:00 11/16/19 19:59 09/06/19 21:12 Clotrimazole (Mycelex Elias) 10 mg FIVE TIMES A DAY MICHAEL 09/02/19 10:00 09/09/19 09:59 09/07/19 10:24 Dextrose (Dextrose 50%) 25 ml Q30M PRN IV Hypoglycemia 08/19/19 13:15 11/17/19 13:14 Dextrose (Dextrose 50%) 50 ml Q30M PRN IV Hypoglycemia 08/19/19 13:15 11/17/19 13:14 Diphenhydramine HCl (Benadryl) 25 mg Q6H PRN IVP Itching 08/21/19 10:30 09/20/19 10:29 09/07/19 06:21 Docusate Sodium (Colace) 100 mg TWICE A DAY ORAL 08/31/19 18:00 09/30/19 17:59 08/31/19 17:27 Hydrocortisone (Hydrocortisone) 1 applic BID PRN TOPIC Itching topical 09/03/19 10:15 12/02/19 10:14 09/04/19 21:05 Hydromorphone HCl (Dilaudid) 2 mg Q4H PRN IVP Severe Pain (Pain Scale 7-10) 09/05/19 10:47 09/12/19 10:46 09/07/19 11:07 Insulin Aspart (NovoLOG) BEFORE MEALS AND HS SUBQ 08/19/19 16:30 11/17/19 16:29 Iohexol (OMNIPAQUE-300 100ml) 100 ml NOW PRN INJ Radiology Procedure 09/05/19 13:15 09/07/19 13:12 Linezolid 300 ml @ 300 mls/hr Q12HR IVPB 08/21/19 21:00 09/30/19 23:59 09/07/19 09:53 Magnesium Oxide (Mag-Ox 400mg) 400 mg THREE TIMES A DAY ORAL 08/23/19 19:45 09/22/19 19:44 09/07/19 09:53 Ondansetron HCl (Zofran) 4 mg Q6H PRN IVP Nausea & Vomiting 08/20/19 10:15 09/19/19 10:14 09/06/19 18:19 Pantoprazole (Protonix) 40 mg EVERY 12 HOURS IVP 08/31/19 21:00 09/30/19 20:59 09/07/19 09:53 Potassium Chloride 30 meq/ Sodium Chloride 1,015 ml @ 75 mls/hr [id number] IV 09/05/19 13:00 10/05/19 12:59 09/07/19 06:21 Deng Reyes MD September 07, 2019 11:13"
[2019-09-07 12:00] VITALS: BP 102/69
--- NOTE | 2019-09-07 15:49 | General Progress Note ---
Assessment/Plan Problem List: (1) Pain ICD Codes: R52 - Pain, unspecified SNOMED: 98750074 (2) Osteomyelitis ICD Codes: M86.9 - Osteomyelitis, unspecified SNOMED: 05653946 (3) Abscess ICD Codes: L02.91 - Abscess SNOMED: 686975599 (4) Paraplegia ICD Codes: G82.20 - Paraplegia SNOMED: 96576231 (5) Asthma ICD Codes: J45.909 - Unspecified asthma, uncomplicated SNOMED: 026288661 (6) Anemia ICD Codes: D64.9 - Anemia, unspecified SNOMED: 812449140 (7) Acute renal failure ICD Codes: N17.9 - Acute kidney failure, unspecified SNOMED: 40156104 (8) right hip wound infecion/ulcer/osteo (9) Sepsis ICD Codes: A41.9 - Sepsis SNOMED: 30890568 (10) Cellulitis ICD Codes: L03.90 - Cellulitis, unspecified SNOMED: 687259327 (11) Abdominal pain ICD Codes: R10.9 - Unspecified abdominal pain SNOMED: 29956715 (12) Dehydration ICD Codes: E86.0 - Dehydration SNOMED: 21272046 Status: stable, progressing Assessment/Plan: cont iv abx per id wound care daily pain rx as needed monitor h/h transfuse as needed monitor for bleeding colostomy care PPI monitor cr dvt/stress ulcer prophylaxis Subjective Constitutional: Reports: malaise, weakness HEENT: Reports: no symptoms Cardiovascular: Reports: no symptoms Respiratory: Reports: cough Gastrointestinal/Abdominal: Reports: no symptoms Genitourinary: Reports: no symptoms Neurologic/Psychiatric: Reports: anxiety, depressed, emotional problems Endocrine: Reports: no symptoms Hematologic/Lymphatic: Reports: anemia Allergies: Coded Allergies: CEFTRIAXONE (Verified Allergy, Intermediate, SOB, HR-140bpm, face swollen , pt became red, 10/24/15) CODEINE (Verified Allergy, Intermediate, SWELLING, 01/03/11) LATEX (Verified Allergy, Intermediate, SWELLING, 01/03/11) PIPERACILLIN (Verified Allergy, Intermediate, Itching, 08/29/15) 08/29/15 tolerates Ceftaroline TAZOBACTAM (Verified Allergy, Intermediate, Itching, 01/29/15) POLYMYXIN B (Verified Allergy, Mild, Rash, 04/08/16) Suspected allergy reported by VANCOMYCIN (Verified Allergy, Mild, 07/15/14) ASPARAGINASE (Verified Allergy, Unknown, 01/28/14) CEFUROXIME (Unverified Allergy, Unknown, 04/19/16) IRON (Verified Allergy, Unknown, 01/28/14) LATEX, NATURAL RUBBER (Unverified Allergy, Unknown, 06/18/16) All Systems: reviewed and negative except above Subjective no events. resting. pain controlled. Cr not any better. still 3. no fever or chills. no cp/sob. CT noted Objective Last 24 Hour Vital Signs Date Time Temp Pulse Resp B/P (MAP) Pulse Ox O2 Delivery O2 Flow Rate FiO2 09/07/19 12:00 97.7 102 19 102/69 (80) 100 09/07/19 09:00 Room Air 09/07/19 08:00 97.8 101 20 114/63 (80) 98 09/07/19 04:00 97.7 106 22 128/65 (86) 98 09/07/19 00:00 97.9 108 22 116/61 (79) 98 09/06/19 21:00 Room Air 09/06/19 20:00 97.0 111 22 114/69 (84) 96 09/06/19 18:50 97.9 09/06/19 16:00 97.9 104 19 117/59 (78) 97 Intake and Output 09/06/19 09/07/19 19:00 07:00 Intake Total 2650.00 ml 660 ml Balance 2650.00 ml 660 ml Intake Oral 1600 ml IV Total 1050.00 ml 300 ml Other 360 ml # Voids 1 Laboratory Tests 09/07/19 08:25: Sodium Level 137, Potassium Level 4.5, Chloride Level 103, Carbon Dioxide Level 23, Anion Gap 11, Blood Urea Nitrogen 21H, Creatinine 2.5H, Estimat Glomerular Filtration Rate 25.1, Glucose Level 71L, Calcium Level 7.0L, Magnesium Level 1.6L Height (Feet): 5 Height (Inches): 5.00 Weight (Pounds): 222 Objective General Appearance: WD/WN, alert EENT: normal ENT inspection Neck: non-tender, normal alignment, supple Cardiovascular: normal peripheral pulses, normal rate, regular rhythm Respiratory/Chest: chest wall non-tender, lungs clear, normal breath sounds, no respiratory distress Abdomen: normal bowel sounds, non tender, soft, no organomegaly Edema: no edema noted Arm (L), no edema noted Arm (R), no edema noted Leg (L), no edema noted Leg (R), no edema noted Pedal (L), no edema noted Pedal (R), no edema noted Generalized Neurologic: motor weakness, sensory deficit Skin: normal pigmentation Lymphatic: normal anterior cervical (L), normal anterior cervical (R) Jacques Chanel MD September 07, 2019 15:49
[2019-09-07 16:00] VITALS: BP 116/68
[2019-09-07] MEDS ORDERED: ZYVOX600 MG ORAL (16:23)
--- NOTE | 2019-09-07 18:00 | NUR ---
NURSE NOTES: Patient said she will go home tomorrow since she will be able to arrange her own transportation via [facility] [employer] [facility] [employer]. MD aware and charge nurse aware.
--- NOTE | 2019-09-07 19:23 | NUR ---
HAND-OFF: Report given to Annamarie Zamora RN. Patient in stable condition.
--- NOTE | 2019-09-07 19:40 | NUR ---
NURSE NOTES: Received report from ildefonso gonzales. patient on bed, awake and verbally responsive. denies any pain or discomfort. no sob. with picc line on the left upper arm. with colostomy bag. per janet, patient is supposed to get discharge to day but still fixing the transportation, so the patient will get discharge tomorrow". bed locked and in lowest position.call light and light button within easy reach. will continue plan of care.
[2019-09-07 20:00] VITALS: BP 110/59
--- NOTE | 2019-09-07 20:03 | Nephrology Progress Note ---
Assessment/Plan Assessment 1) Paraplegia 2) RONALD due to colistine most likely recovering 3) Osteomyelitis of lumbar spine 4) Obesity 5) Generalized rash most likely allergic dermatitis Plan: Continue to watch kidney fx Subjective Subjective She has generalized rash, incontinent of urine, creat is down to 2.5 Objective Objective Last 24 Hour Vital Signs Date Time Temp Pulse Resp B/P (MAP) Pulse Ox O2 Delivery O2 Flow Rate FiO2 09/07/19 16:00 98.0 99 19 116/68 (84) 99 09/07/19 12:00 97.7 102 19 102/69 (80) 100 09/07/19 09:00 Room Air 09/07/19 08:00 97.8 101 20 114/63 (80) 98 09/07/19 04:00 97.7 106 22 128/65 (86) 98 09/07/19 00:00 97.9 108 22 116/61 (79) 98 09/06/19 21:00 Room Air 09/06/19 20:00 97.0 111 22 114/69 (84) 96 Intake and Output 09/06/19 09/07/19 19:00 07:00 Intake Total 2650.00 ml 660 ml Balance 2650.00 ml 660 ml Intake Oral 1600 ml IV Total 1050.00 ml 300 ml Other 360 ml # Voids 1 Laboratory Tests 09/07/19 08:25: Sodium Level 137, Potassium Level 4.5, Chloride Level 103, Carbon Dioxide Level 23, Anion Gap 11, Blood Urea Nitrogen 21H, Creatinine 2.5H, Estimat Glomerular Filtration Rate 25.1, Glucose Level 71L, Calcium Level 7.0L, Magnesium Level 1.6L Height (Feet): 5 Height (Inches): 5.00 Weight (Pounds): 222 General Appearance: WD/WN, no apparent distress EENT: PERRL/EOMI Neck: non-tender Cardiovascular: normal peripheral pulses, normal rate Respiratory/Chest: chest wall non-tender, lungs clear Abdomen: non tender Extremities: normal range of motion 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
[2019-09-07] MEDS: Dyna-Hex 2% Top Sol 2oz TOPIC SCH (20:27)
--- NOTE | 2019-09-07 21:00 | NUR ---
NURSE NOTES: Patient will be discharge tomorrow,. paged dr. silver regarding the PICC LINE status upon discharge. awaiting for call back. charge nurse made aware.
--- NOTE | 2019-09-07 21:30 | NUR ---
NURSE NOTES: called dr. silver again, went through voicemail. left a message.
[2019-09-08] VITALS: BP 118/62
[2019-09-08 04:00] VITALS: BP 135/75
[2019-09-08] MEDS: NovoLOG Insulin Flexpen SUBQ SCH ×2 (06:11→11:30)
--- NOTE | 2019-09-08 07:34 | NUR ---
NURSE NOTES: Report received from ANISA Zamora. Pt received in bed with no signs of cardiac or respiratory distress, denies any discomfort or pain at this time, alert and oriented x 4, verbal and able to make needs known, bed in lowest position with alarm on and breaks engaged, PICC line on CHRISTIN patent and intact, will continue to monitor for changes and will proceed with plan of care, call light within reach at all times.
--- NOTE | 2019-09-08 07:44 | NUR ---
HAND-OFF: Report given to ildefonso strauss.
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
[2019-09-08 08:00] VITALS: BP 115/66
[2019-09-08] MEDS: Allopurinol 100mg Tab ORAL SCH (08:14)
[2019-09-08] MEDS: Docusate 100mg cap ORAL SCH (08:15)
[2019-09-08] MEDS: Pantoprazole Inj IVP SCH (08:15)
[2019-09-08] MEDS: Magnesium Oxide 400mg tab ORAL SCH ×2 (08:15→13:00)
[2019-09-08] MEDS: DiphenhydrAMINE 50mg/ml Inj IVP PRN ×2 (08:25→14:33)
--- NOTE | 2019-09-08 08:46 | General Progress Note ---
Assessment/Plan Problem List: (1) Pain ICD Codes: R52 - Pain, unspecified SNOMED: 97112385 (2) Osteomyelitis ICD Codes: M86.9 - Osteomyelitis, unspecified SNOMED: 43781289 (3) Abscess ICD Codes: L02.91 - Abscess SNOMED: 303905205 (4) Paraplegia ICD Codes: G82.20 - Paraplegia SNOMED: 07093457 (5) Asthma ICD Codes: J45.909 - Unspecified asthma, uncomplicated SNOMED: 472799664 (6) Anemia ICD Codes: D64.9 - Anemia, unspecified SNOMED: 392993992 (7) Acute renal failure ICD Codes: N17.9 - Acute kidney failure, unspecified SNOMED: 46150810 (8) right hip wound infecion/ulcer/osteo (9) Sepsis ICD Codes: A41.9 - Sepsis SNOMED: 82916102 (10) Cellulitis ICD Codes: L03.90 - Cellulitis, unspecified SNOMED: 031936456 (11) Abdominal pain ICD Codes: R10.9 - Unspecified abdominal pain SNOMED: 30105150 (12) Dehydration ICD Codes: E86.0 - Dehydration SNOMED: 22086023 Status: stable, progressing Assessment/Plan: cont iv abx per id wound care daily pain rx as needed monitor h/h transfuse as needed monitor for bleeding colostomy care PPI monitor cr dvt/stress ulcer prophylaxis Subjective ROS Limited/Unobtainable: No Constitutional: Reports: malaise, weakness HEENT: Reports: no symptoms Cardiovascular: Reports: no symptoms Respiratory: Reports: no symptoms Gastrointestinal/Abdominal: Reports: no symptoms Genitourinary: Reports: no symptoms Neurologic/Psychiatric: Reports: numbness, pre-existing deficit, tingling, weakness Endocrine: Reports: no symptoms Hematologic/Lymphatic: Reports: anemia Allergies: Coded Allergies: CEFTRIAXONE (Verified Allergy, Intermediate, SOB, HR-140bpm, face swollen , pt became red, 10/24/15) CODEINE (Verified Allergy, Intermediate, SWELLING, 01/03/11) LATEX (Verified Allergy, Intermediate, SWELLING, 01/03/11) PIPERACILLIN (Verified Allergy, Intermediate, Itching, 08/29/15) 08/29/15 tolerates Ceftaroline TAZOBACTAM (Verified Allergy, Intermediate, Itching, 01/29/15) POLYMYXIN B (Verified Allergy, Mild, Rash, 04/08/16) Suspected allergy reported by VANCOMYCIN (Verified Allergy, Mild, 07/15/14) ASPARAGINASE (Verified Allergy, Unknown, 01/28/14) CEFUROXIME (Unverified Allergy, Unknown, 04/19/16) IRON (Verified Allergy, Unknown, 01/28/14) LATEX, NATURAL RUBBER (Unverified Allergy, Unknown, 06/18/16) All Systems: reviewed and negative except above Subjective no events. resting. pain controlled. Cr trending down. no fever or chills. no cp /sob. CT noted Objective Last 24 Hour Vital Signs Date Time Temp Pulse Resp B/P (MAP) Pulse Ox O2 Delivery O2 Flow Rate FiO2 09/08/19 04:00 98.1 99 22 135/75 (95) 97 09/08/19 00:00 98.1 100 19 118/62 (80) 97 09/07/19 21:16 98.0 09/07/19 21:00 Room Air 09/07/19 20:00 98.1 102 19 110/59 (76) 96 09/07/19 16:00 98.0 99 19 116/68 (84) 99 09/07/19 12:00 97.7 102 19 102/69 (80) 100 09/07/19 09:00 Room Air Intake and Output 09/07/19 09/08/19 19:00 07:00 Intake Total 1275 ml 650 ml Balance 1275 ml 650 ml Intake Oral 650 ml IV Total 1275 ml # Voids 2 2 Height (Feet): 5 Height (Inches): 5.00 Weight (Pounds): 222 Objective General Appearance: WD/WN, alert EENT: normal ENT inspection Neck: non-tender, normal alignment, supple Cardiovascular: normal peripheral pulses, normal rate, regular rhythm Respiratory/Chest: chest wall non-tender, lungs clear, normal breath sounds, no respiratory distress Abdomen: normal bowel sounds, non tender, soft, no organomegaly Edema: no edema noted Arm (L), no edema noted Arm (R), no edema noted Leg (L), no edema noted Leg (R), no edema noted Pedal (L), no edema noted Pedal (R), no edema noted Generalized Neurologic: motor weakness, sensory deficit Skin: normal pigmentation Lymphatic: normal anterior cervical (L), normal anterior cervical (R) Jacques Chanel MD September 08, 2019 08:46
--- NOTE | 2019-09-08 14:00 | NUR ---
NURSE NOTES: patient refused taking mg oxide supplement d/t episode of N/V this morning. received Dominique @[id number]. will continue to monitor patient condition.
--- NOTE | 2019-09-08 15:18 | Pulmonology Progress Note ---
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 Gastrointestinal/Abdominal: Reports: no symptoms Skin: Reports: rash Musculoskeletal: Reports: pain Allergies: Coded Allergies: CEFTRIAXONE (Verified Allergy, Intermediate, SOB, HR-140bpm, face swollen , pt became red, 10/24/15) CODEINE (Verified Allergy, Intermediate, SWELLING, 01/03/11) LATEX (Verified Allergy, Intermediate, SWELLING, 01/03/11) PIPERACILLIN (Verified Allergy, Intermediate, Itching, 08/29/15) 08/29/15 tolerates Ceftaroline TAZOBACTAM (Verified Allergy, Intermediate, Itching, 01/29/15) POLYMYXIN B (Verified Allergy, Mild, Rash, 04/08/16) Suspected allergy reported by VANCOMYCIN (Verified Allergy, Mild, 07/15/14) ASPARAGINASE (Verified Allergy, Unknown, 01/28/14) CEFUROXIME (Unverified Allergy, Unknown, 04/19/16) IRON (Verified Allergy, Unknown, 01/28/14) LATEX, NATURAL RUBBER (Unverified Allergy, Unknown, 06/18/16) All Systems: reviewed and negative except above Objective Last 24 Hour Vital Signs Date Time Temp Pulse Resp B/P (MAP) Pulse Ox O2 Delivery O2 Flow Rate FiO2 09/08/19 13:35 98.1 09/08/19 09:00 Room Air 09/08/19 08:00 97.3 109 20 115/66 (82) 98 09/08/19 04:00 98.1 99 22 135/75 (95) 97 09/08/19 00:00 98.1 100 19 118/62 (80) 97 09/07/19 21:00 Room Air 09/07/19 20:00 98.1 102 19 110/59 (76) 96 09/07/19 16:00 98.0 99 19 116/68 (84) 99 Intake and Output 09/07/19 09/08/19 19:00 07:00 Intake Total 1275 ml 650 ml Balance 1275 ml 650 ml Intake Oral 650 ml IV Total 1275 ml # Voids 2 2 Current Medications Medications (Trade) Dose Ordered Sig/Pineda Route PRN Reason Start Time Stop Time Status Last Admin Dose Admin Acetaminophen (Tylenol) 650 mg Q4H PRN ORAL Mild Pain (Pain Scale 1-3) 08/20/19 10:15 09/19/19 10:14 Al Hydroxide/Mg Hydroxide (Mylanta) 30 ml Q4H PRN ORAL INDIGESTION 08/20/19 10:15 09/19/19 10:14 Allopurinol (Zyloprim) 100 mg DAILY ORAL 09/02/19 09:00 10/02/19 08:59 09/08/19 08:14 Cetylpyridinium Chloride (Cepacol) 1 lozg Q4H PRN MICHAEL sore throat 08/31/19 08:45 11/29/19 08:44 09/06/19 22:32 Chlorhexidine Gluconate (Nereida-Hex 2%) 1 applic DAILY@2000 TOPIC 08/18/19 20:00 11/16/19 19:59 09/07/19 20:27 Clotrimazole (Mycelex Elias) 10 mg FIVE TIMES A DAY MICHAEL 09/02/19 10:00 09/09/19 09:59 09/08/19 13:00 Dextrose (Dextrose 50%) 25 ml Q30M PRN IV Hypoglycemia 08/19/19 13:15 11/17/19 13:14 Dextrose (Dextrose 50%) 50 ml Q30M PRN IV Hypoglycemia 08/19/19 13:15 11/17/19 13:14 Diphenhydramine HCl (Benadryl) 25 mg Q6H PRN IVP Itching 08/21/19 10:30 09/20/19 10:29 09/08/19 14:33 Docusate Sodium (Colace) 100 mg TWICE A DAY ORAL 08/31/19 18:00 09/30/19 17:59 08/31/19 17:27 Hydrocortisone (Hydrocortisone) 1 applic BID PRN TOPIC Itching topical 09/03/19 10:15 12/02/19 10:14 09/04/19 21:05 Hydromorphone HCl (Dilaudid) 2 mg Q4H PRN IVP Severe Pain (Pain Scale 7-10) 09/05/19 10:47 09/12/19 10:46 09/08/19 12:34 Insulin Aspart (NovoLOG) BEFORE MEALS AND HS SUBQ 08/19/19 16:30 11/17/19 16:29 Linezolid 300 ml @ 300 mls/hr Q12HR IVPB 08/21/19 21:00 09/30/19 23:59 09/08/19 08:14 Magnesium Oxide (Mag-Ox 400mg) 400 mg THREE TIMES A DAY ORAL 08/23/19 19:45 09/22/19 19:44 09/08/19 08:15 Ondansetron HCl (Zofran) 4 mg Q6H PRN IVP Nausea & Vomiting 08/20/19 10:15 09/19/19 10:14 09/08/19 12:33 Pantoprazole (Protonix) 40 mg EVERY 12 HOURS IVP 08/31/19 21:00 09/30/19 20:59 09/08/19 08:15 Potassium Chloride 30 meq/ Sodium Chloride 1,015 ml @ 75 mls/hr [id number] IV 09/05/19 13:00 10/05/19 12:59 09/08/19 08:54 Assessment/Plan Assessment/Plan Pulmonary Progress Note 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 Gastrointestinal/Abdominal: Reports: no symptoms Skin: Reports: rash Musculoskeletal: Reports: pain Allergies: Coded Allergies: CEFTRIAXONE (Verified Allergy, Intermediate, SOB, HR-140bpm, face swollen , pt became red, 10/24/15) CODEINE (Verified Allergy, Intermediate, SWELLING, 01/03/11) LATEX (Verified Allergy, Intermediate, SWELLING, 01/03/11) PIPERACILLIN (Verified Allergy, Intermediate, Itching, 08/29/15) 08/29/15 tolerates Ceftaroline TAZOBACTAM (Verified Allergy, Intermediate, Itching, 01/29/15) POLYMYXIN B (Verified Allergy, Mild, Rash, 04/08/16) Suspected allergy reported by VANCOMYCIN (Verified Allergy, Mild, 07/15/14) ASPARAGINASE (Verified Allergy, Unknown, 01/28/14) CEFUROXIME (Unverified Allergy, Unknown, 04/19/16) IRON (Verified Allergy, Unknown, 01/28/14) LATEX, NATURAL RUBBER (Unverified Allergy, Unknown, 06/18/16) All Systems: reviewed and negative except above Subjective d/w radiology no need for drain gas noted on CT ID and surgery aware Objective Vital Signs Noted Objective GENERAL: Patient is an ill-appearing female. in pain HEENT: Negative. NECK: Supple. LUNGS: Good air entry. CARDIAC: S1, S2. Regular rate and rhythm. ABDOMEN: Soft, nontender. EXTREMITIES: With significant atrophy. Laboratory Tests Noted 09/07/19 08:25: Sodium Level [Pending], Potassium Level [Pending], Chloride Level [Pending], Carbon Dioxide Level [Pending], Blood Urea Nitrogen [Pending], Creatinine [ Pending], Estimat Glomerular Filtration Rate [Pending], Glucose Level [Pending] , Calcium Level [Pending], Magnesium Level [Pending] Current Medications Medications (Trade) Dose Ordered Sig/Pineda Route PRN Reason Start Time Stop Time Status Last Admin Dose Admin Acetaminophen (Tylenol) 650 mg Q4H PRN ORAL Mild Pain (Pain Scale 1-3) 08/20/19 10:15 09/19/19 10:14 Al Hydroxide/Mg Hydroxide (Mylanta) 30 ml Q4H PRN ORAL INDIGESTION 08/20/19 10:15 09/19/19 10:14 Allopurinol (Zyloprim) 100 mg DAILY ORAL 09/02/19 09:00 10/02/19 08:59 09/06/19 09:44 Barium Sulfate (Readi-Cat 2) 450 ml NOW PRN ORAL Radiology Procedure 09/05/19 13:15 09/07/19 13:12 Cetylpyridinium Chloride (Cepacol) 1 lozg Q4H PRN MICHAEL sore throat 08/31/19 08:45 11/29/19 08:44 09/06/19 22:32 Chlorhexidine Gluconate (Nereida-Hex 2%) 1 applic DAILY@2000 TOPIC 08/18/19 20:00 11/16/19 19:59 09/06/19 21:12 Clotrimazole (Mycelex Elias) 10 mg FIVE TIMES A DAY MICHAEL 09/02/19 10:00 09/09/19 09:59 09/06/19 18:19 Dextrose (Dextrose 50%) 25 ml Q30M PRN IV Hypoglycemia 08/19/19 13:15 11/17/19 13:14 Dextrose (Dextrose 50%) 50 ml Q30M PRN IV Hypoglycemia 08/19/19 13:15 11/17/19 13:14 Diphenhydramine HCl (Benadryl) 25 mg Q6H PRN IVP Itching 08/21/19 10:30 09/20/19 10:29 09/07/19 06:21 Docusate Sodium (Colace) 100 mg TWICE A DAY ORAL 08/31/19 18:00 09/30/19 17:59 08/31/19 17:27 Hydrocortisone (Hydrocortisone) 1 applic BID PRN TOPIC Itching topical 09/03/19 10:15 12/02/19 10:14 09/04/19 21:05 Hydromorphone HCl (Dilaudid) 2 mg Q4H PRN IVP Severe Pain (Pain Scale 7-10) 09/05/19 10:47 09/12/19 10:46 09/07/19 06:21 Insulin Aspart (NovoLOG) BEFORE MEALS AND HS SUBQ 08/19/19 16:30 11/17/19 16:29 Iohexol (OMNIPAQUE-300 100ml) 100 ml NOW PRN INJ Radiology Procedure 09/05/19 13:15 09/07/19 13:12 Linezolid 300 ml @ 300 mls/hr Q12HR IVPB 08/21/19 21:00 09/30/19 23:59 09/06/19 21:12 Magnesium Oxide (Mag-Ox 400mg) 400 mg THREE TIMES A DAY ORAL 08/23/19 19:45 09/22/19 19:44 09/06/19 18:19 Ondansetron HCl (Zofran) 4 mg Q6H PRN IVP Nausea & Vomiting 08/20/19 10:15 09/19/19 10:14 09/06/19 18:19 Pantoprazole (Protonix) 40 mg EVERY 12 HOURS IVP 08/31/19 21:00 09/30/19 20:59 09/06/19 21:12 Potassium Chloride 30 meq/ Sodium Chloride 1,015 ml @ 75 mls/hr [id number] IV 09/05/19 13:00 10/05/19 12:59 09/07/19 06:21 Assessment/Plan IMPRESSION: Multiple abscesses s/p aspiration, hyponatremia, hyperkalemia, acute renal failure, shortness of breath, dyspnea, leukocytosis, anemia, thrombocytosis. ARF, possible GIB, low mag PLAN PICC - care linezolid IV x23 days pain control poor surgical candidate surgery following monitor renal function monitor vitals pain control as is dc planning if ok by all impression, plan, and exam edited and reviewed in detail care discussed with Karthik Bauer MD September 08, 2019 15:18
--- NOTE | 2019-09-08 16:05 | NUR ---
NURSE NOTES: patient was discharged to home with home health services via electronic w/c access van. A&Ox4, verbally responsive. no respiratory distress noted. d/c with picc line. provided wound care as ordered. wound pictures were taken and uploaded. provide dc packet. refused to checked belonging but signed on paper. given new prescription for ATB. removed ID band.
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
--- NOTE | 2019-09-18 08:22 | Endoscopy Procedure Note ---
Endoscopy Procedure Note General Indication for Procedure: gib Procedures Performed: EGD Operative Findings/Diagnosis: gastritis Specimen: yes Pt Tolerated Procedure Well: Yes Estimated Blood Loss: none Anesthesia Anesthesiologist: marce Anesthesia: MAC Inserted Devices Implant(s) used?: No GI Core Measures 50 yrs or older w/o bx or poly: Not Applicable 10yrs. F/U recommended: Not Applicable Johnie Ly MD Sep 18, 2019 08:22
== END 2019-09-08 15:59 | disposition home health service (06) | DRG 853 ==
LOC: EMR 12:38 → 4E 13:28 → EDBEDREQ 08-18 10:59
PROC: B518ZZA Fluoroscopy of Superior Vena Cava, Guidance (ICD-10-PCS; principal; 2019-08-20)
PROC: 0J9730Z Drainage of Back Subcutaneous Tissue and Fascia with Drainage Device, Percutaneous Approach (ICD-10-PCS; principal; 2019-08-20)
PROC: 02HV33Z Insertion of Infusion Device into Superior Vena Cava, Percutaneous Approach (ICD-10-PCS; principal; 2019-08-20)
PROC: 0QD70ZZ Extraction of Left Upper Femur, Open Approach (ICD-10-PCS; 2019-08-24)
PROC: 0JDM3ZZ Extraction of Left Upper Leg Subcutaneous Tissue and Fascia, Percutaneous Approach (ICD-10-PCS; 2019-08-24)
PROC: 0KDP0ZZ Extraction of Left Hip Muscle, Open Approach (ICD-10-PCS; 2019-08-27)
PROC: 0J9730Z Drainage of Back Subcutaneous Tissue and Fascia with Drainage Device, Percutaneous Approach (ICD-10-PCS; 2019-08-29)
PROC: 0DD78ZX Extraction of Stomach, Pylorus, Via Natural or Artificial Opening Endoscopic, Diagnostic (ICD-10-PCS; 2019-09-07)
PROC: 0DJD8ZZ Inspection of Lower Intestinal Tract, Via Natural or Artificial Opening Endoscopic (ICD-10-PCS; 2019-09-07)
DX: A41.02 Sepsis due to Methicillin resistant Staphylococcus aureus (principal); L89.154 Pressure ulcer of sacral region, stage 4; E87.1 Hypo-osmolality and hyponatremia; N17.9 Acute kidney failure, unspecified; M00.9 Pyogenic arthritis, unspecified; G82.20 Paraplegia, unspecified; L02.91 Cutaneous abscess, unspecified; M60.08 Infective myositis, other site; M46.26 Osteomyelitis of vertebra, lumbar region; F11.20 Opioid dependence, uncomplicated; K92.2 Gastrointestinal hemorrhage, unspecified; E87.5 Hyperkalemia; T36.8X5A Adverse effect of other systemic antibiotics, initial encounter; Y92.230 Patient room in hospital as the place of occurrence of the external cause; E83.42 Hypomagnesemia; L23.9 Allergic contact dermatitis, unspecified cause; D64.9 Anemia, unspecified; K29.70 Gastritis, unspecified, without bleeding
CPT/HCPCS: 36415; 36569; 72131; 74176; 75989; 76770; 76937; 80048; 80053; 82270; 82533; 82550; 82962; 83735; 83930; 84100; 84443; 84550; 85007; 85025; 85610; 85730; 86850; 86900; 86901; 86920; 87070; 87075; 87081; 87181; 87205; 93970; 94003; 94150; 96361; 96365; 96372; 96375; 96376; 99291; J1815; J2250; J2405; J7030; J8499

== ENCOUNTER 2019-09-14 19:02 | Inpatient (IN) | payer MEDICARE, OTHER ==
[~2019-09-14] VITALS: Ht 165.1 cm; Wt 90.7 kg
--- NOTE | 2019-09-14 19:28 | Emergency Room Report ---
History of Present Illness General Chief Complaint: General Complaint Source: Patient Present Illness HPI Patient is a 44-year-old female brought in by self for increased nausea and vomiting. Patient reports having multiple episodes of vomiting. Reports feeling somewhat dizzy. States she had recently discontinued antibiotics due to nausea and vomiting. States that she was able to tolerate some broth earlier in the day. Prior history of paraplegia as well as spinal osteomyelitis. Chronic nonhealing wounds. Patient had been recent hospitalization. Allergies: Coded Allergies: CEFTRIAXONE (Verified Allergy, Intermediate, SOB, HR-140bpm, face swollen , pt became red, 10/24/15) CODEINE (Verified Allergy, Intermediate, SWELLING, 01/03/11) LATEX (Verified Allergy, Intermediate, SWELLING, 01/03/11) PIPERACILLIN (Verified Allergy, Intermediate, Itching, 08/29/15) 08/29/15 tolerates Ceftaroline TAZOBACTAM (Verified Allergy, Intermediate, Itching, 01/29/15) POLYMYXIN B (Verified Allergy, Mild, Rash, 04/08/16) Suspected allergy reported by VANCOMYCIN (Verified Allergy, Mild, 07/15/14) ASPARAGINASE (Verified Allergy, Unknown, 01/28/14) CEFUROXIME (Unverified Allergy, Unknown, 04/19/16) IRON (Verified Allergy, Unknown, 01/28/14) LATEX, NATURAL RUBBER (Unverified Allergy, Unknown, 06/18/16) COVID-19 Screening Contact w/high risk pt: No Recent Travel to affected area: No Experienced COVID-19 symptoms?: No COVID-19 Testing performed FINANCIAL UNDERWRITER: No Patient History Now: No Nursing Documentation-[facility] Past Medical History: No History, Except For Hx Cardiac Problems: No Hx Hypertension: No Hx Pacemaker: No Hx Asthma: Yes Hx COPD: No Hx Diabetes: No Hx Cancer: No Hx Gastrointestinal Problems: Yes - colostomy Hx Neurological Problems: Yes Hx Cerebrovascular Accident: No Hx Seizures: No 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 Hx Weakness: Yes Hx Fatigue: Yes Physical Exam Vital Signs Date Time Temp Pulse Resp B/P (MAP) Pulse Ox O2 Delivery O2 Flow Rate FiO2 09/14/19 19:05 98.4 135 22 74/62 (66) 97 Room Air General Appearance: alert, GCS 15, Chronically Ill Head: normocephalic Eyes: bilateral eye PERRL ENT: hearing grossly normal Neck: limited range of motion Respiratory: lungs clear, normal breath sounds Cardiovascular #1: normal peripheral pulses, regular rate, rhythm Gastrointestinal: non tender Musculoskeletal: other - Decreased range of motion to the lower extremities Neurologic: alert, motor weakness Skin: other - Skin ulcer Medical Decision Making Diagnostic Impression: Primary Impression: Dehydration Additional Impressions: Leukocytosis Osteomyelitis ER Course Patient presented for nausea and vomiting after recent hospitalization. Differential diagnosis include was not limited to infection, anemia, abscess among others. Because of complexity of patient's case laboratory tests and imaging studies were ordered. Patient was noted to be initially tachycardic with initial heart rate approximately 140. Patient started on IV fluids with some improvement in her blood pressure and heart rate. Dr. Thanh Glover was contacted for inpatient management. Labs Test 09/14/19 19:30 White Blood Count 17.4 K/UL (4.8-10.8) Red Blood Count 3.26 M/UL (4.20-5.40) Hemoglobin 8.9 G/DL (12.0-16.0) Hematocrit 28.6 % (37.0-47.0) Mean Corpuscular Volume 88 FL (80-99) Mean Corpuscular Hemoglobin 27.5 PG (27.0-31.0) Mean Corpuscular Hemoglobin Concent 31.3 G/DL (32.0-36.0) Red Cell Distribution Width 15.4 % (11.6-14.8) Platelet Count 286 K/UL (150-450) Mean Platelet Volume 8.2 FL (6.5-10.1) Neutrophils (%) (Auto) 77.0 % (45.0-75.0) Lymphocytes (%) (Auto) 16.9 % (20.0-45.0) Monocytes (%) (Auto) 4.5 % (1.0-10.0) Eosinophils (%) (Auto) 1.0 % (0.0-3.0) Basophils (%) (Auto) 0.6 % (0.0-2.0) Prothrombin Time 12.6 SEC (9.30-11.50) Prothromb Time International Ratio 1.2 (0.9-1.1) Activated Partial Thromboplast Time 35 SEC (23-33) Sodium Level 128 MMOL/L (136-145) Potassium Level 3.1 MMOL/L (3.5-5.1) Chloride Level 90 MMOL/L (98-107) Carbon Dioxide Level 30 MMOL/L (21-32) Anion Gap 8 mmol/L (5-15) Blood Urea Nitrogen 12 mg/dL (7-18) Creatinine 1.3 MG/DL (0.55-1.30) Estimat Glomerular Filtration Rate 53.4 mL/min (>60) Glucose Level 132 MG/DL (74-106) Calcium Level 6.5 MG/DL (8.5-10.1) Total Bilirubin 0.4 MG/DL (0.2-1.0) Aspartate Amino Transf (AST/SGOT) 13 U/L (15-37) Alanine Aminotransferase (ALT/SGPT) 12 U/L (12-78) Alkaline Phosphatase 122 U/L (46-116) Total Protein 6.8 G/DL (6.4-8.2) Albumin 1.2 G/DL (3.4-5.0) Globulin 5.6 g/dL Albumin/Globulin Ratio 0.2 (1.0-2.7) Last Vital Signs Date Time Temp Pulse Resp B/P (MAP) Pulse Ox O2 Delivery O2 Flow Rate FiO2 09/14/19 19:05 98.4 135 22 74/62 (66) 97 Room Air Status: improved Disposition: ADMITTED INPATIENT Condition: Serious Walter Franklin MD Sep 14, 2019 19:28
[2019-09-14 19:39] VITALS: BP 74/62
[2019-09-14 20:45] LABS: ANION GAP 8 mmol/L (5-15); BLOOD UREA NITROGEN 12 mg/dL (7-18); CALCIUM 6.5 MG/DL (8.5-10.1); CARBON DIOXIDE 30 MMOL/L (21-32); CHLORIDE 90 MMOL/L (98-107); CREATININE 1.3 MG/DL (0.55-1.30); POTASSIUM 3.1 MMOL/L (3.5-5.1); SODIUM 128 MMOL/L (136-145)
[2019-09-14 20:48] LABS: INR 1.2 (0.9-1.1)
[2019-09-14 20:49] LABS: ALANINE AMINOTRANSFERASE 12 U/L (12-78); ALBUMIN 1.2 G/DL (3.4-5.0); ALBUMIN/GLOBULIN RATIO 0.2 (1.0-2.7); ALKALINE PHOSPHATASE 122 U/L (46-116); ASPARTATE AMINO TRANSFERASE 13 U/L (15-37); BILIRUBIN,TOTAL 0.4 MG/DL (0.2-1.0)
[2019-09-14 20:50] LABS: BASOPHILS % (AUTO) 0.6 % (0.0-2.0); HEMATOCRIT 28.6 % (37.0-47.0); HEMOGLOBIN 8.9 G/DL (12.0-16.0); LYMPHOCYTES % (AUTO) 16.9 % (20.0-45.0); MEAN CORPUSCULAR VOLUME 88 FL (80-99); MONOCYTES % (AUTO) 4.5 % (1.0-10.0); PLATELET COUNT 286 K/UL (150-450); RED BLOOD COUNT 3.26 M/UL (4.20-5.40); RED CELL DISTRIBUTION WIDTH 15.4 % (11.6-14.8); WHITE BLOOD COUNT 17.4 K/UL (4.8-10.8)
[2019-09-14 20:53] VITALS: BP 95/58
[2019-09-14] MEDS ORDERED: HYDROmorphone 1mg/ml Carpuject IVP ONE (21:00)
[2019-09-14] MEDS ORDERED: Morphine Sulfate 4mg/ml Inj (IV USE ONLY) IVP ONE (21:30)
[2019-09-15] VITALS (7 sets, daily range): BP systolic 87–106; BP diastolic 47–56
[2019-09-15] MEDS ORDERED: Lidocaine 2% Visc 15ml soln ORAL ONE (00:45)
[2019-09-15] MEDS ORDERED: Morphine Sulfate 2mg/ml Inj(IV/IM USE ONLY) IVP ONE (04:30)
[2019-09-15] MEDS ORDERED: Mylanta II UD 30ml ORAL PRN (04:45)
[2019-09-15] MEDS ORDERED: HYDROmorphone 1mg/ml Carpuject IVP PRN (04:45)
[2019-09-15 05:03] LABS: BASOPHILS % (AUTO) 0.4 % (0.0-2.0); EOSINOPHILS % (AUTO) 1.1 % (0.0-3.0); HEMATOCRIT 23.2 % (37.0-47.0); LYMPHOCYTES % (AUTO) 15.7 % (20.0-45.0); MEAN CORPUSCULAR VOLUME 80 FL (80-99); NEUTROPHILS % (AUTO) 77.7 % (45.0-75.0); PLATELET COUNT 290 K/UL (150-450); RED BLOOD COUNT 2.88 M/UL (4.20-5.40); RED CELL DISTRIBUTION WIDTH 13.8 % (11.6-14.8); WHITE BLOOD COUNT 15.6 K/UL (4.8-10.8)
[2019-09-15 05:12] LABS: ANION GAP 8 mmol/L (5-15); BLOOD UREA NITROGEN 11 mg/dL (7-18); CALCIUM 6.2 MG/DL (8.5-10.1); CARBON DIOXIDE 29 MMOL/L (21-32); CHLORIDE 93 MMOL/L (98-107); CREATININE 1.2 MG/DL (0.55-1.30); POTASSIUM 2.9 MMOL/L (3.5-5.1); SODIUM 129 MMOL/L (136-145)
[2019-09-15 09:23] LABS: ALANINE AMINOTRANSFERASE 9 U/L (12-78); ALBUMIN 1.1 G/DL (3.4-5.0); ALBUMIN/GLOBULIN RATIO 0.2 (1.0-2.7); ALKALINE PHOSPHATASE 108 U/L (46-116); ANION GAP 10 mmol/L (5-15); ASPARTATE AMINO TRANSFERASE 12 U/L (15-37); BILIRUBIN,TOTAL 0.3 MG/DL (0.2-1.0); BLOOD UREA NITROGEN 11 mg/dL (7-18); CARBON DIOXIDE 27 MMOL/L (21-32); CHLORIDE 94 MMOL/L (98-107); CREATININE 1.1 MG/DL (0.55-1.30); SODIUM 131 MMOL/L (136-145)
[2019-09-15] MEDS: Heparin 5000 units/ml inj SUBQ SCH ×2 (10:04→21:42)
[2019-09-15] MEDS ORDERED: Cathflo Alteplase 2mg Inj INJ SCH (13:15)
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
[2019-09-15] MEDS ORDERED: Albuterol 90mcg Inhaler 8gm INH PRN ×2 (18:00→19:00)
[2019-09-16] VITALS: BP 104/64
[2019-09-16 04:00] VITALS: BP 110/73
[2019-09-16 07:47] LABS: HEMOGLOBIN 7.6 G/DL (12.0-16.0); MEAN CORPUSCULAR VOLUME 81 FL (80-99); PLATELET COUNT 373 K/UL (150-450); RED BLOOD COUNT 2.71 M/UL (4.20-5.40); RED CELL DISTRIBUTION WIDTH 14.3 % (11.6-14.8); WHITE BLOOD COUNT 13.6 K/UL (4.8-10.8)
[2019-09-16 08:00] VITALS: BP_SYST 146; BP_SYST 95; BP_DIAS 45; BP_DIAS 66
--- NOTE | 2019-09-16 08:51 | Pulmonology Progress Note ---
Subjective Allergies: Coded Allergies: CEFTRIAXONE (Verified Allergy, Intermediate, SOB, HR-140bpm, face swollen , pt became red, 10/24/15) CODEINE (Verified Allergy, Intermediate, SWELLING, 01/03/11) LATEX (Verified Allergy, Intermediate, SWELLING, 01/03/11) PIPERACILLIN (Verified Allergy, Intermediate, Itching, 08/29/15) 08/29/15 tolerates Ceftaroline TAZOBACTAM (Verified Allergy, Intermediate, Itching, 01/29/15) POLYMYXIN B (Verified Allergy, Mild, Rash, 04/08/16) Suspected allergy reported by VANCOMYCIN (Verified Allergy, Mild, 07/15/14) ASPARAGINASE (Verified Allergy, Unknown, 01/28/14) CEFUROXIME (Unverified Allergy, Unknown, 04/19/16) IRON (Verified Allergy, Unknown, 01/28/14) LATEX, NATURAL RUBBER (Unverified Allergy, Unknown, 06/18/16) Subjective care noted PICC issues pain and weakness Objective Last 24 Hour Vital Signs Date Time Temp Pulse Resp B/P (MAP) Pulse Ox O2 Delivery O2 Flow Rate FiO2 09/16/19 04:00 108 09/16/19 04:00 97.4 82 18 110/73 (85) 97 09/16/19 00:00 100 09/16/19 00:00 97.7 77 20 104/64 (77) 98 09/15/19 21:00 Room Air 09/15/19 20:00 98 09/15/19 20:00 97.7 100 18 95/50 (65) 95 09/15/19 17:48 98.8 09/15/19 17:34 114 15 106/56 (73) 100 09/15/19 16:00 113 09/15/19 16:00 98.8 114 17 99/55 (70) 100 09/15/19 12:00 97.8 112 20 87/49 (62) 100 09/15/19 12:00 112 09/15/19 10:15 Room Air Intake and Output 09/15/19 09/16/19 19:00 07:00 Intake Total 1900 ml Output Total 250 ml Balance 1650 ml Intake Oral 900 ml IV Total 1000 ml Output Stool Total 250 ml Objective GENERAL: A well-developed female, currently remains weak HEENT: Otherwise negative. NECK: Supple. No adenopathy. LUNGS: With scattered rhonchi. Moderate air entry. CARDIAC: Tachycardic, otherwise regular without murmurs, rubs, or gallops. ABDOMEN: Soft, obese, and colostomy. EXTREMITIES: No cyanosis, clubbing, or edema. Significant atrophy of the lower limbs. NEUROLOGIC: Otherwise nonfocal with paraparesis. Microbiology Date/Time Source Procedure Growth Status 09/15/19 07:42 Sputum Gram Stain - Final Resulted 09/15/19 07:42 Sputum Sputum Culture Pending Resulted Laboratory Tests 09/16/19 07:00: White Blood Count 13.6H, Red Blood Count 2.71L, Hemoglobin 7.6L, Hematocrit 22.0L, Mean Corpuscular Volume 81, Mean Corpuscular Hemoglobin 28.0, Mean Corpuscular Hemoglobin Concent 34.4, Red Cell Distribution Width 14.3, Platelet Count 373, Mean Platelet Volume 5.5L, Neutrophils (%) (Auto) , Lymphocytes (%) ( Auto) , Monocytes (%) (Auto) , Eosinophils (%) (Auto) , Basophils (%) (Auto) , Neutrophils % (Manual) [Pending], Lymphocytes % (Manual) [Pending], Platelet Estimate [Pending], Platelet Morphology [Pending] Current Medications Medications (Trade) Dose Ordered Sig/Pineda Route PRN Reason Start Time Stop Time Status Last Admin Dose Admin Acetaminophen (Tylenol) 650 mg Q4H PRN ORAL Mild Pain (Pain Scale 1-3) 09/15/19 04:45 10/15/19 04:44 Al Hydroxide/Mg Hydroxide (Mylanta II) 30 ml Q6H PRN ORAL dyspepsia 09/15/19 04:45 10/15/19 04:44 Albuterol Sulfate (Proventil MDI) 2 puff Q4H PRN INH Shortness of Breath 09/15/19 19:00 12/14/19 18:59 Heparin Sodium (Porcine) (Heparin 5000 units/ml) 5,000 units EVERY 12 HOURS SUBQ 09/15/19 09:00 10/30/19 08:59 09/15/19 21:42 Hydromorphone HCl (Dilaudid) 1 mg Q3H PRN IVP Moderate Pain (Pain Scale 4-6) 09/15/19 04:45 09/22/19 04:44 09/15/19 17:18 Hydromorphone HCl (Dilaudid) 2 mg Q3H PRN IVP Severe Pain (Pain Scale 7-10) 09/15/19 04:45 09/22/19 04:44 Linezolid 300 ml @ 300 mls/hr Q12H IVPB 09/15/19 09:00 09/22/19 08:59 09/15/19 21:43 Pantoprazole (Protonix) 40 mg DAILY ORAL 09/15/19 09:00 10/15/19 08:59 09/15/19 10:03 Sodium Chloride 1,000 ml @ 100 mls/hr Q10H IVLG 09/15/19 05:31 10/15/19 05:30 09/15/19 06:07 Assessment/Plan Assessment/Plan IMPRESSION: 1. Chronic opioid dependence, possible some withdrawal associated tachycardia. 2. Hyponatremia. 3. Hypokalemia. 4. Severe protein-calorie malnutrition. 5. Mild coagulopathy. 6. Leukocytosis. 7. Anemia, possible sepsis. 8. Multiple antibiotic allergies. PLAN care noted no distress PICC care IV antibiotics ID and pain management needed impression, plan, and exam edited and reviewed in detail care discussed with Thanh Garcia MD Sep 16, 2019 08:51
[2019-09-16] MEDS: Heparin 5000 units/ml inj SUBQ SCH ×2 (09:15→21:27)
--- NOTE | 2019-09-16 09:50 | Consultation ---
History of Present Illness General Date patient seen: Sep 16, 2019 Time patient seen: 09:15 - am Chief Complaint: Generalized body pain Referring physician: Belen Reason for Consultation: Pain Management Present Illness HPI Patient was last seen in 2017 now admitted under the care of Dr. Glover due to N/V, was recently discharged from the hospital due to drainage of lumbar spinal abscess s/p drainage was discharged with [place] 10/325mg and antibiotics. Cures was reviewed showing she was prescribed [place] 10/325mg twice in the last 12 months. At this time she was started on Dilaudid 1-2mg IV Q3H PRN mod-severe pain. 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 We were consulted so patient will have adequate pain control while here in the hospital. Allergies: Coded Allergies: CEFTRIAXONE (Verified Allergy, Intermediate, SOB, HR-140bpm, face swollen , pt became red, 10/24/15) CODEINE (Verified Allergy, Intermediate, SWELLING, 01/03/11) LATEX (Verified Allergy, Intermediate, SWELLING, 01/03/11) PIPERACILLIN (Verified Allergy, Intermediate, Itching, 08/29/15) 08/29/15 tolerates Ceftaroline TAZOBACTAM (Verified Allergy, Intermediate, Itching, 01/29/15) POLYMYXIN B (Verified Allergy, Mild, Rash, 04/08/16) Suspected allergy reported by VANCOMYCIN (Verified Allergy, Mild, 07/15/14) ASPARAGINASE (Verified Allergy, Unknown, 01/28/14) CEFUROXIME (Unverified Allergy, Unknown, 04/19/16) IRON (Verified Allergy, Unknown, 01/28/14) LATEX, NATURAL RUBBER (Unverified Allergy, Unknown, 06/18/16) Medication History Scheduled Linezolid* (Zyvox*), 600 MG ORAL EVERY 12 HOURS, (Reported) Pantoprazole* (Protonix*), 40 MG ORAL DAILY, (Reported) Scheduled PRN Albuterol Sulfate* (Albuterol Sulfate Mdi*), 2 PUFF INH Q4H PRN for Constipation , (Reported) Discontinued Medications Acetaminophen (Acetaminophen), 650 MG ORAL Q4HR PRN for Fever/Headache/Mild Pain , (Reported) Discontinued Reason: Pt stopped taking med Al Hydroxide/mg Hydroxide (Mag-Al Plus Suspension), 30 ML ORAL Q4HR PRN for dyspepsia, (Reported) Discontinued Reason: Pt stopped taking med Cubicin (Cubicin), 1 MG IV DAILY Discontinued Reason: Pt stopped taking med Diphenhydramine HCl (Benadryl), 25 MG PO TID Discontinued Reason: Pt stopped taking med Epinephrine (Epipen 2-Vinicio), 0.3 MG IM ONCE Discontinued Reason: Pt stopped taking med Escitalopram Oxalate* (Lexapro*), 10 MG ORAL DAILY, (Reported) Discontinued Reason: Pt stopped taking med Famotidine* (Pepcid 20mg tablet*), 20 MG ORAL TWICE A DAY Discontinued Reason: Pt stopped taking med Hydrocodone Bit/Acetaminophen 10-325* ([place] 10-325*), 1 TAB ORAL Q6H PRN for For Pain, (Reported) Discontinued Reason: Pt stopped taking med Magnesium Hydroxide* (Milk Of Magnesia*), 30 ML ORAL HS PRN for Constipation, ( Reported) Discontinued Reason: Pt stopped taking med Methocarbamol* (Robaxin-750*), 750 MG PO TID Discontinued Reason: Pt stopped taking med Methocarbamol* (Robaxin-750*), 750 MG PO TID Discontinued Reason: Pt stopped taking med Prednisone* (Prednisone*), 50 MG ORAL DAILY Discontinued Reason: Pt stopped taking med Zolpidem Tartrate* (Ambien*), 5 MG ORAL BEDTIME PRN for insomnia, (Reported) Discontinued Reason: Pt stopped taking med Patient History Healthcare decision maker Resuscitation status Advanced Directive on File Past Medical/Surgical History Past Medical/Surgical History: (1) Hip osteomyelitis, right (2) Gastritis (3) Enteritis (4) Edema (5) Diarrhea (6) Dermatitis (7) Colitis (8) Abscess of hip, left (9) Abscess of hip, right (10) Bilateral edema of lower extremity (11) right hip wound (12) Pressure ulcer (13) Generalized weakness (14) Sacral decubitus ulcer, stage IV (15) Diarrhea (16) Colostomy care (17) Paraplegia (18) Dehydration (19) Acute renal failure (20) Abdominal pain (21) Asthma (22) Hypomagnesemia (23) Paraspinal abscess (24) Osteomyelitis Review of Systems Constitutional: Reports: weakness Eye: Reports: no symptoms ENT: Reports: no symptoms Respiratory: Reports: no symptoms Cardiovascular: Reports: no symptoms Gastrointestinal: Reports: no symptoms Genitourinary: Reports: no symptoms Musculoskeletal: Reports: back pain Skin: Reports: no symptoms Psychiatric: Reports: no symptoms Neurological: Reports: focal weakness Endocrine: Reports: no symptoms Hematologic/Lymphatic: Reports: no symptoms Physical Exam General Appearance: no apparent distress, alert HEENT: normocephalic, atraumatic, PERRL Neck: non-tender, normal alignment Respiratory/Chest: lungs clear, normal breath sounds Cardiovascular/Chest: normal rate, regular rhythm Abdomen: other - colostomy noted Extremities: inflammation, moderate edema Skin Exam: other - wounds noted Neurologic: alert, responsive Last 24 Hour Vital Signs Date Time Temp Pulse Resp B/P (MAP) Pulse Ox O2 Delivery O2 Flow Rate FiO2 09/16/19 08:00 97.9 80 17 146/66 (92) 93 09/16/19 08:00 118 09/16/19 04:00 108 09/16/19 04:00 97.4 82 18 110/73 (85) 97 09/16/19 00:00 100 09/16/19 00:00 97.7 77 20 104/64 (77) 98 09/15/19 21:00 Room Air 09/15/19 20:00 98 09/15/19 20:00 97.7 100 18 95/50 (65) 95 09/15/19 17:48 98.8 09/15/19 17:34 114 15 106/56 (73) 100 09/15/19 16:00 113 09/15/19 16:00 98.8 114 17 99/55 (70) 100 09/15/19 12:00 97.8 112 20 87/49 (62) 100 09/15/19 12:00 112 09/15/19 10:15 Room Air Intake and Output 09/15/19 09/16/19 19:00 07:00 Intake Total 1900 ml Output Total 250 ml Balance 1650 ml Intake Oral 900 ml IV Total 1000 ml Output Stool Total 250 ml Laboratory Tests Test 09/16/19 07:00 White Blood Count 13.6 K/UL (4.8-10.8) H Red Blood Count 2.71 M/UL (4.20-5.40) L Hemoglobin 7.6 G/DL (12.0-16.0) L Hematocrit 22.0 % (37.0-47.0) L Mean Corpuscular Volume 81 FL (80-99) Mean Corpuscular Hemoglobin 28.0 PG (27.0-31.0) Mean Corpuscular Hemoglobin Concent 34.4 G/DL (32.0-36.0) Red Cell Distribution Width 14.3 % (11.6-14.8) Platelet Count 373 K/UL (150-450) Mean Platelet Volume 5.5 FL (6.5-10.1) L Neutrophils (%) (Auto) % (45.0-75.0) Lymphocytes (%) (Auto) % (20.0-45.0) Monocytes (%) (Auto) % (1.0-10.0) Eosinophils (%) (Auto) % (0.0-3.0) Basophils (%) (Auto) % (0.0-2.0) Differential Total Cells Counted 100 Neutrophils % (Manual) 74 % (45-75) Lymphocytes % (Manual) 22 % (20-45) Monocytes % (Manual) 3 % (1-10) Eosinophils % (Manual) 1 % (0-3) Basophils % (Manual) 0 % (0-2) Band Neutrophils 0 % (0-8) Platelet Estimate Adequate Platelet Morphology Normal Hypochromasia 1+ Anisocytosis 1+ Height (Feet): 5 Height (Inches): 5.00 Weight (Pounds): 193 Medications Current Medications Medications (Trade) Dose Ordered Sig/Pineda Route PRN Reason Start Time Stop Time Status Last Admin Dose Admin Acetaminophen (Tylenol) 650 mg Q4H PRN ORAL Mild Pain (Pain Scale 1-3) 09/15/19 04:45 10/15/19 04:44 Al Hydroxide/Mg Hydroxide (Mylanta II) 30 ml Q6H PRN ORAL dyspepsia 09/15/19 04:45 10/15/19 04:44 Albuterol Sulfate (Proventil MDI) 2 puff Q4H PRN INH Shortness of Breath 09/15/19 19:00 12/14/19 18:59 Heparin Sodium (Porcine) (Heparin 5000 units/ml) 5,000 units EVERY 12 HOURS SUBQ 09/15/19 09:00 10/30/19 08:59 09/16/19 09:15 Hydromorphone HCl (Dilaudid) 1 mg Q3H PRN IVP Moderate Pain (Pain Scale 4-6) 09/15/19 04:45 09/22/19 04:44 09/15/19 17:18 Hydromorphone HCl (Dilaudid) 2 mg Q3H PRN IVP Severe Pain (Pain Scale 7-10) 09/15/19 04:45 09/22/19 04:44 Linezolid 300 ml @ 300 mls/hr Q12H IVPB 09/15/19 09:00 09/22/19 08:59 09/16/19 09:13 Pantoprazole (Protonix) 40 mg DAILY ORAL 09/15/19 09:00 10/15/19 08:59 09/16/19 09:15 Sodium Chloride 1,000 ml @ 100 mls/hr Q10H IVLG 09/15/19 05:31 10/15/19 05:30 09/15/19 06:07 Assessment/Plan Assessment/Plan: (1) Paraplegia (2) Spinal cord injury (3) Lumbar spine osteomyelitis discitis (4) Paraspinal abscess s/p drainage (5) Sacral decubitus ulcer (6) Intractable pain We will continue the Dilaudid 1mg IV and discontinue the Dilaudid 2mg IV. D/w Dr. Avina and he concurred. Mike Ellis Sep 16, 2019 09:50
[2019-09-16] MEDS ORDERED: HYDROmorphone 1mg/ml Carpuject IVP PRN (10:45)
[2019-09-16 12:00] VITALS: BP 104/55
[2019-09-16 15:59] VITALS: BP 95/52
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
[2019-09-16] MEDS: Ascorbic Acid 500mg tab ORAL SCH (17:48)
[2019-09-16 20:00] VITALS: BP 93/44
[2019-09-17] VITALS: BP 100/59
[2019-09-17 04:00] VITALS: BP 98/55
[2019-09-17 08:00] VITALS: BP 171/82
--- NOTE | 2019-09-17 08:09 | Pulmonology Progress Note ---
Subjective Allergies: Coded Allergies: CEFTRIAXONE (Verified Allergy, Intermediate, SOB, HR-140bpm, face swollen , pt became red, 10/24/15) CODEINE (Verified Allergy, Intermediate, SWELLING, 01/03/11) LATEX (Verified Allergy, Intermediate, SWELLING, 01/03/11) PIPERACILLIN (Verified Allergy, Intermediate, Itching, 08/29/15) 08/29/15 tolerates Ceftaroline TAZOBACTAM (Verified Allergy, Intermediate, Itching, 01/29/15) POLYMYXIN B (Verified Allergy, Mild, Rash, 04/08/16) Suspected allergy reported by VANCOMYCIN (Verified Allergy, Mild, 07/15/14) ASPARAGINASE (Verified Allergy, Unknown, 01/28/14) CEFUROXIME (Unverified Allergy, Unknown, 04/19/16) IRON (Verified Allergy, Unknown, 01/28/14) LATEX, NATURAL RUBBER (Unverified Allergy, Unknown, 06/18/16) Subjective care noted PICC issues and surgery called pain and weakness Objective Last 24 Hour Vital Signs Date Time Temp Pulse Resp B/P (MAP) Pulse Ox O2 Delivery O2 Flow Rate FiO2 09/17/19 04:00 98.6 133 15 98/55 (69) 98 09/17/19 04:00 126 09/17/19 00:00 98.6 135 17 100/59 (73) 100 09/17/19 00:00 129 09/16/19 21:00 Room Air 09/16/19 20:00 124 09/16/19 20:00 98.8 120 15 93/44 (60) 98 09/16/19 16:00 117 09/16/19 15:59 98.0 60 18 95/52 (66) 99 09/16/19 12:00 97.9 71 18 104/55 (71) 100 09/16/19 12:00 113 09/16/19 09:58 Room Air Intake and Output 09/16/19 09/17/19 18:59 06:59 Intake Total 910 ml 240 ml Output Total 3120 ml 760 ml Balance -2210 ml -520 ml Intake Oral 910 ml 240 ml Output Stool Total 3120 ml 760 ml # Voids 3 Objective GENERAL: A well-developed female, currently remains weak HEENT: Otherwise negative. NECK: Supple. No adenopathy. LUNGS: With scattered rhonchi. Moderate air entry. CARDIAC: Tachycardic, otherwise regular without murmurs, rubs, or gallops. ABDOMEN: Soft, obese, and colostomy. EXTREMITIES: No cyanosis, clubbing, or edema. Significant atrophy of the lower limbs. NEUROLOGIC: Otherwise nonfocal with paraparesis. Microbiology Date/Time Source Procedure Growth Status 09/15/19 04:50 Blood Blood Culture - Preliminary NO GROWTH AFTER 24 HOURS Resulted 09/15/19 04:35 Blood Blood Culture - Preliminary NO GROWTH AFTER 24 HOURS Resulted 09/15/19 07:42 Sputum Gram Stain - Final Resulted 09/15/19 07:42 Sputum Culture - Preliminary Gram Negative Bacillus 1 Gram Negative Bacillus 2 Natalya Albicans Resulted Current Medications Medications (Trade) Dose Ordered Sig/Pineda Route PRN Reason Start Time Stop Time Status Last Admin Dose Admin Acetaminophen (Tylenol) 650 mg Q4H PRN ORAL Mild Pain (Pain Scale 1-3) 09/15/19 04:45 10/15/19 04:44 Al Hydroxide/Mg Hydroxide (Mylanta II) 30 ml Q6H PRN ORAL dyspepsia 09/15/19 04:45 10/15/19 04:44 Albuterol Sulfate (Proventil MDI) 2 puff Q4H PRN INH Shortness of Breath 09/15/19 19:00 12/14/19 18:59 Ascorbic Acid (Vitamin C) 500 mg TWICE A DAY ORAL 09/16/19 18:00 10/16/19 17:59 09/16/19 17:48 Heparin Sodium (Porcine) (Heparin 5000 units/ml) 5,000 units EVERY 12 HOURS SUBQ 09/15/19 09:00 10/30/19 08:59 09/16/19 21:27 Hydromorphone HCl (Dilaudid) 1 mg Q3H PRN IVP severe pain 09/16/19 10:45 09/22/19 04:44 Linezolid 300 ml @ 300 mls/hr Q12H IVPB 09/15/19 09:00 09/22/19 08:59 09/16/19 09:13 Multivitamins (Multivitamins) 1 tab DAILY ORAL 09/17/19 09:00 10/17/19 08:59 Pantoprazole (Protonix) 40 mg DAILY ORAL 09/15/19 09:00 10/15/19 08:59 09/16/19 09:15 Sodium Chloride 1,000 ml @ 100 mls/hr Q10H IVLG 09/15/19 05:31 10/15/19 05:30 09/15/19 06:07 Zinc Sulfate (Zinc Sulfate) 220 mg DAILY ORAL 09/17/19 09:00 09/27/19 08:59 Assessment/Plan Assessment/Plan IMPRESSION: 1. Chronic opioid dependence, possible some withdrawal associated tachycardia. 2. Hyponatremia. 3. Hypokalemia. 4. Severe protein-calorie malnutrition. 5. Mild coagulopathy. 6. Leukocytosis. 7. Anemia, possible sepsis. 8. Multiple antibiotic allergies. 9. sinus tachycardia PLAN care noted no distress PICC care- and attention IV antibiotics per ID ID and pain management needed needs hydration and transfusion needs access pain management issues impression, plan, and exam edited and reviewed in detail care discussed with Thanh Garcia MD Sep 17, 2019 08:09
--- NOTE | 2019-09-17 09:09 | General Progress Note ---
Assessment/Plan Assessment/Plan: (1) Paraplegia (2) Spinal cord injury (3) Lumbar spine osteomyelitis discitis (4) Paraspinal abscess s/p drainage (5) Sacral decubitus ulcer (6) Intractable pain We will continue the Dilaudid D/w Dr. Avina and he concurred. Subjective Date patient seen: Sep 17, 2019 Time patient seen: 08:15 - am Constitutional: Reports: weakness HEENT: Reports: no symptoms Cardiovascular: Reports: no symptoms Respiratory: Reports: no symptoms Gastrointestinal/Abdominal: Reports: no symptoms Genitourinary: Reports: no symptoms Neurologic/Psychiatric: Reports: weakness Endocrine: Reports: no symptoms Hematologic/Lymphatic: Reports: no symptoms Allergies: Coded Allergies: CEFTRIAXONE (Verified Allergy, Intermediate, SOB, HR-140bpm, face swollen , pt became red, 10/24/15) CODEINE (Verified Allergy, Intermediate, SWELLING, 01/03/11) LATEX (Verified Allergy, Intermediate, SWELLING, 01/03/11) PIPERACILLIN (Verified Allergy, Intermediate, Itching, 08/29/15) 08/29/15 tolerates Ceftaroline TAZOBACTAM (Verified Allergy, Intermediate, Itching, 01/29/15) POLYMYXIN B (Verified Allergy, Mild, Rash, 04/08/16) Suspected allergy reported by VANCOMYCIN (Verified Allergy, Mild, 07/15/14) ASPARAGINASE (Verified Allergy, Unknown, 01/28/14) CEFUROXIME (Unverified Allergy, Unknown, 04/19/16) IRON (Verified Allergy, Unknown, 01/28/14) LATEX, NATURAL RUBBER (Unverified Allergy, Unknown, 06/18/16) Subjective Patient is in bed and tolerated the pain on the Dilaudid as needed No new complaints at this time. Objective Last 24 Hour Vital Signs Date Time Temp Pulse Resp B/P (MAP) Pulse Ox O2 Delivery O2 Flow Rate FiO2 09/17/19 08:00 98.1 102 20 171/82 (111) 98 09/17/19 04:00 98.6 133 15 98/55 (69) 98 09/17/19 04:00 126 09/17/19 00:00 98.6 135 17 100/59 (73) 100 09/17/19 00:00 129 09/16/19 21:00 Room Air 09/16/19 20:00 124 6/7/20 20:00 98.8 120 15 93/44 (60) 98 09/16/19 16:00 117 09/16/19 15:59 98.0 60 18 95/52 (66) 99 09/16/19 12:00 97.9 71 18 104/55 (71) 100 09/16/19 12:00 113 09/16/19 09:58 Room Air Intake and Output 09/16/19 09/17/19 19:00 07:00 Intake Total 910 ml 240 ml Output Total 3120 ml 760 ml Balance -2210 ml -520 ml Intake Oral 910 ml 240 ml Output Stool Total 3120 ml 760 ml # Voids 3 Height (Feet): 5 Height (Inches): 5.00 Weight (Pounds): 193 General Appearance: no apparent distress, alert EENT: PERRL/EOMI Neck: non-tender, normal alignment Cardiovascular: normal rate, regular rhythm Respiratory/Chest: decreased breath sounds Abdomen: non tender, soft Extremities: other - wounds noted on b/l LE Edema: mild edema Neurologic: alert, responsive Mike Ellis Sep 17, 2019 09:09
[2019-09-17] MEDS: Ascorbic Acid 500mg tab ORAL SCH ×2 (09:55→18:57)
[2019-09-17] MEDS: Zinc Sulfate 220mg ORAL SCH (09:55)
[2019-09-17] MEDS: Heparin 5000 units/ml inj SUBQ SCH ×2 (09:58→20:53)
[2019-09-17] MEDS ORDERED: Lidocaine 1% Plain 30 ml INJ PRN (11:00)
[2019-09-17] MEDS ORDERED: Heparin1,000 units/500ml Premix(Conc:2 units/ml) IV PRN (11:00)
[2019-09-17] MEDS ORDERED: Omnipaque-300 100ml vial INJ PRN ×2 (11:00→11:45)
[2019-09-17 12:00] VITALS: BP 149/63
[2019-09-17] MEDS ORDERED: Levofloxacin 500mg tab ORAL SCH (12:00)
--- NOTE | 2019-09-17 12:33 | Surgery Progress Note ---
Surgery Progress Note Subjective Additional Comments Patient seen and examined bedside. No acute events. She is resting comfortably has no complaints today. I discussion with her about her care planning and spoke to her plastic surgeon outpatient wound care team this morning. Recommendations being reviewed and sent over and will continue as prior. nutritional optimization Objective Last 24 Hour Vital Signs Date Time Temp Pulse Resp B/P (MAP) Pulse Ox O2 Delivery O2 Flow Rate FiO2 09/17/19 09:00 Room Air 09/17/19 08:00 98.1 102 20 171/82 (111) 98 09/17/19 08:00 112 09/17/19 04:00 98.6 133 15 98/55 (69) 98 09/17/19 04:00 126 09/17/19 00:00 98.6 135 17 100/59 (73) 100 09/17/19 00:00 129 09/16/19 21:00 Room Air 09/16/19 20:00 124 09/16/19 20:00 98.8 120 15 93/44 (60) 98 09/16/19 16:00 117 09/16/19 15:59 98.0 60 18 95/52 (66) 99 I&O Intake and Output 09/16/19 09/17/19 19:00 07:00 Intake Total 910 ml 240 ml Output Total 3120 ml 760 ml Balance -2210 ml -520 ml Intake Oral 910 ml 240 ml Output Stool Total 3120 ml 760 ml # Voids 3 Dressing: saturated, other Wound: other Drains: other Cardiovascular: RSR Respiratory: decreased breath sounds Abdomen: soft, non-tender, present bowel sounds Extremities: no tenderness, no cyanosis Plan Problems: (1) Pressure ulcer Assessment & Plan: Pt presented on admission with keloid scars and multiple pressure injuries. she knows her Tx plan well and is active in her care plan R hip noted to be erythematous,shiny and taut skin healing wounds full thickness stage 4 sacral pressure injury (L)6.5cm x (W)3.5cm x (D) 1.6cm.mixed pink granulation with scattered slough at base of wound. Hyperpigmentation periwound. No odor or exudate noted. DTPI noted to upper R gluteal cheek(L)1.4cm x (W)3cm. Base of injury is indurated, purple with maroon borders. Full thickness stage 4 pressure injury lower R buttocks(L)1cm x (W)1.6cm x (D) 1.5cm. [place] granulation with scattered slough at base of wound. Edges are macerated. Full thickness stage 4 pressure injury L ischium.(L)1cmx (W)7.8cm x (D)cm. [id number] slough with pink granulation. Edges are macerated. Full thickness stage 4 wound posterior R knee. [place] granulation at base of wound. Small amt non-odorous serous exudate noted. Unstageable wound distal/lateral R tibia(L)5cm x (W)1.5cm. Stable dry eschar noted. Edges adherent to base of wound. No erythema or fluctuance periwound. Full thickness stage 3 wound lateral R tibia,inferior to above eschar(L)3.3cm x (W)2.5cm. Base of wound is pink and granular. No odor or exudate noted. Full thickness wound posterior L leg . Wound is granular with epithelial borders. No odor or exudate noted..Skin is otherwise dry and scaly and with pt' s permission both lower ext moisturized with Phytoplex Moisturizing Lotion. posterior lower back . Tx.Plan: patient with extensive wound care plan. will obtain records from her plastic surgeon who is a colleague of robyn and stephen with care plan. dressings changed by myself at bedside today. cont with packing and dressings as demonstrated until tomorrow hen care plan will be obtained from surgeon for continuity of care Reposition at least every 2hours or as tolerated. Off-load heels with Pillow. APM/MARICARMEN Mattress overlay. (2) Osteomyelitis (3) Paraplegia (4) Leukocytosis Assessment & Plan: wounds chronic and osteo diagnosed prior on abx left arm line in place trend labs cont abx will follow with recs micro reviewed (5) Abdominal pain (6) Nausea & vomiting Assessment & Plan: DAILY ESTIMATED NEEDS: Needs based on Wound + paraplegia, 65 kg abw 28-30 kcals/kg 2525-7703 total kcals 1.25-2 g protein/kg 81-130 g total protein Fluid per MD NUTRITION DIAGNOSIS: Increased KCAL, protein, and micronutrient needs r/t wound healing as evidenced pt w/ multiple full thickness wounds @ sacrum, R buttock, L ischium, R knee, poasterior L leg, lateral R tibia, unstageable wound @ distal/lateral R tibia, and DTPI @ R gluteal cheek, w/ new paraspinal abscess as per prior recent adm. CURRENT DIET: Regular PO DIET RECOMMENDATIONS: [facility] MED DIET ADDITIONAL RECOMMENDATIONS: * Recalibrated bedscale wt for accurate CBW-> monitor weekly wts * WOUND CARE: MVI w/ min x1+VIT C 500mg BID ZnSO4 220mg QD x 10 days Luiz BID recommended but pt w/ h/o refusal * Monitor BGs, recent adm w/ hypoglycemic episodes Monitor for consistent po intake, need for HS D5 * Monitor lytes, replete as needed Jax Allison Sep 17, 2019 12:33
--- NOTE | 2019-09-17 13:28 | Diagnostic Imaging Report ---
Indication: Shortness of breath Technique: One view of the chest Comparison: For 29/11/2019 Findings: Inspiration is suboptimal, with crowding of the bronchovascular markings. No definite acute infiltrates, effusions, congestion. There is a PICC, tip of which projects at the level of the subclavian vein. This has withdrawn from the positioning was placed on 08/20/2019 Impression: Hypoventilatory exam. No definite acute process Note retraction of PICC, tip now in the subclavian vein. Patient is reportedly scheduled for replacement
[2019-09-17 16:00] VITALS: BP 89/50
--- NOTE | 2019-09-17 16:15 | Consultation ---
DATE OF CONSULTATION: 09/17/2019 INFECTIOUS DISEASES CONSULTATION CONSULTING PHYSICIAN: Deng Reyes MD. REFERRING PHYSICIAN: Thanh Glover MD. REASON FOR CONSULTATION: Back abscess. HISTORY OF PRESENTING ILLNESS: This is a 44-year-old lady with history of paraplegia, osteomyelitis, lumbar abscesses, diabetes, hypertension who came in with leukocytosis as well as vomiting. She was on linezolid as an outpatient and Infectious Diseases consultation has been obtained for antibiotics. PAST MEDICAL HISTORY: 1. History of lumbar abscesses. 2. Osteomyelitis. 3. Paraplegia. 4. Diabetes. 5. Hypertension. SOCIAL HISTORY: She does not smoke, drink, or use drugs. FAMILY HISTORY: Noncontributory. REVIEW OF SYSTEMS: RESPIRATORY: No fever, chills, cough, shortness of breath, or chest pain. CARDIAC: No chest pain. No palpitation. No dizziness. No syncope. GASTROINTESTINAL: She states her nausea and vomiting has improved. No abdominal pain or diarrhea. She complains of back pain. MEDICATIONS: As an inpatient, she is on chlorhexidine gluconate, lidocaine, subcutaneous heparin, multivitamin, zinc sulfate, ascorbic acid, Dilaudid, albuterol, Protonix, linezolid, Tylenol, Mylanta. ALLERGIES: 1. Asparaginase. 2. Ceftriaxone. 3. Cefuroxime. 4. Codeine. 5. Iron. 6. Latex. 7. Piperacillin. 8. Vancomycin. PHYSICAL EXAMINATION: VITAL SIGNS: Temperature of 98.1, T-max of 98.8, pulse of 102, respiratory rate 20, blood pressure 171/82, O2 saturation of 98%. HEENT: Pupils equally reactive to light and accommodation. Mouth appears clean without thrush. NECK: Supple. No adenopathy. No JVD. CARDIOVASCULAR: Regular rate and rhythm. No murmurs. LUNGS: Clear to auscultation bilaterally. No crackles. No wheezes. ABDOMEN: Soft. Colostomy noted. EXTREMITIES: No cyanosis, no clubbing, no edema. Left arm PICC line noted. LABORATORY AND DIAGNOSTIC DATA: White count 13.6, hemoglobin 7.6, hematocrit 22, MCV 81, platelet count of 373. Sodium 131, potassium 3, chloride 94, bicarb 27, BUN 11, creatinine 1.1, glucose 100, calcium of 6. Total bilirubin 0.3, AST 12, ALT 9, alkaline phosphatase 108. Total protein 6.1, albumin 1.1. Sputum culture showing gram-negative rods and Natalya albicans. 09/15/2019 blood cultures are negative. ASSESSMENT: This is a 44-year-old lady with history of paraplegia with osteomyelitis, who recently had lumbar abscess drainage with MRSA and developed nausea and vomiting likely from linezolid who now comes in with leukocytosis and is found to have: 1. Gram-negative pneumonia. 2. We would like to rule out persistent lumbar abscess. 3. Paraplegia. 4. Leukocytosis is improving. PLAN: 1. Continue IV linezolid. 2. We will start her on oral Levaquin. 3. We will order a CT of the abdomen and pelvis. 4. We will follow up cultures and adjust antibiotics accordingly. I would like to thank, Dr. Glover, for this consultation. Deng Reyes M.D. DR: JOHNATHON JOB#: [id number] CC: Thanh Glover M.D.; Fax#: [phone]
--- NOTE | 2019-09-17 16:45 | Brief Operative Note ---
Immediate Post Operative Note Operative Note Pre-op Diagnosis: malfunctioning PICC Procedure: PICC exchange Post-op Diagnosis: same as pre-op Surgeon: Lourdes WHITTINGTON Anesthesia: local Specimen: none Complications: none Condition: stable Fluids: none Implant(s) used?: No David Whittington MD Sep 17, 2019 16:45
--- NOTE | 2019-09-17 19:02 | Diagnostic Imaging Report ---
Indications: Malfunctioning assisting PICC; needs long-term IV access Technique: Total sterile technique, including sterile probe cover and sterile gel, hat, mask, sterile gown, large sterile drape, and preparation with 2% chlorhexidine utilized. Local anesthesia with 1% lidocaine. Passage 0.018 guidewire under direct fluoroscopy through pre-existing left arm PICC. Guidewire passed easily into the right atrium. It was used to determine appropriate catheter length, exchange for 4 Romansh peel-away sheath. 4 Romansh Bard dual-lumen power PICC cut to 43 cm. It was inserted through the peel-away sheath and passed easily to the cavoatrial junction.. Peel-away sheath and guidewire removed. Catheter fixed to the skin. Both catheter ports aspirated and flushed. Patient tolerated procedure well, without immediate complication. Digital radiograph documents satisfactory catheter tip position, at the cavoatrial junction. Total fluoroscopy time 45.4 seconds. Total dose area product [id number] [id number] Total number of images: 1 Impression: Successful replacement of malpositioned forearm PICC under sonographic and fluoroscopic guidance, as described above.
[2019-09-17 20:00] VITALS: BP 107/52
[2019-09-17] MEDS: Dyna-Hex 2% Top Sol 2oz TOPIC SCH (20:31)
[2019-09-18] VITALS: BP 94/57
[2019-09-18 04:00] VITALS: BP 105/63
[2019-09-18 08:00] VITALS: BP 113/55
--- NOTE | 2019-09-18 08:42 | Pulmonology Progress Note ---
Subjective Allergies: Coded Allergies: CEFTRIAXONE (Verified Allergy, Intermediate, SOB, HR-140bpm, face swollen , pt became red, 10/24/15) CODEINE (Verified Allergy, Intermediate, SWELLING, 01/03/11) LATEX (Verified Allergy, Intermediate, SWELLING, 01/03/11) PIPERACILLIN (Verified Allergy, Intermediate, Itching, 08/29/15) 08/29/15 tolerates Ceftaroline TAZOBACTAM (Verified Allergy, Intermediate, Itching, 01/29/15) POLYMYXIN B (Verified Allergy, Mild, Rash, 04/08/16) Suspected allergy reported by VANCOMYCIN (Verified Allergy, Mild, 07/15/14) ASPARAGINASE (Verified Allergy, Unknown, 01/28/14) CEFUROXIME (Unverified Allergy, Unknown, 04/19/16) IRON (Verified Allergy, Unknown, 01/28/14) LATEX, NATURAL RUBBER (Unverified Allergy, Unknown, 06/18/16) Subjective care noted IV functional still tachy pain and weakness Objective Last 24 Hour Vital Signs Date Time Temp Pulse Resp B/P (MAP) Pulse Ox O2 Delivery O2 Flow Rate FiO2 09/18/19 04:00 98.2 111 19 105/63 (77) 98 09/18/19 04:00 124 09/18/19 00:00 97.1 118 19 94/57 (69) 99 09/18/19 00:00 123 09/17/19 21:00 Room Air 09/17/19 20:00 98.8 110 18 107/52 (70) 100 09/17/19 20:00 125 09/17/19 16:00 96.7 80 20 89/50 (63) 97 09/17/19 16:00 127 09/17/19 12:00 123 09/17/19 12:00 96.5 63 20 149/63 (91) 97 09/17/19 09:00 Room Air Intake and Output 09/17/19 09/18/19 19:00 07:00 Intake Total 358 ml Output Total 300 ml Balance 58 ml Intake Oral 358 ml Output Stool Total 300 ml # Voids 1 Objective GENERAL: A well-developed female, currently remains weak HEENT: Otherwise negative. NECK: Supple. No adenopathy. LUNGS: With scattered rhonchi. Moderate air entry. CARDIAC: Tachycardic, otherwise regular without murmurs, rubs, or gallops. ABDOMEN: Soft, obese, and colostomy. EXTREMITIES: No cyanosis, clubbing, or edema. Significant atrophy of the lower limbs. NEUROLOGIC: Otherwise nonfocal with paraparesis. Current Medications Medications (Trade) Dose Ordered Sig/Pineda Route PRN Reason Start Time Stop Time Status Last Admin Dose Admin Acetaminophen (Tylenol) 650 mg Q4H PRN ORAL Mild Pain (Pain Scale 1-3) 09/15/19 04:45 10/15/19 04:44 Al Hydroxide/Mg Hydroxide (Mylanta II) 30 ml Q6H PRN ORAL dyspepsia 09/15/19 04:45 10/15/19 04:44 Albuterol Sulfate (Proventil MDI) 2 puff Q4H PRN INH Shortness of Breath 09/15/19 19:00 12/14/19 18:59 Ascorbic Acid (Vitamin C) 500 mg TWICE A DAY ORAL 09/16/19 18:00 10/16/19 17:59 09/17/19 18:57 Barium Sulfate (Readi-Cat 2) 450 ml NOW PRN ORAL Radiology Procedure 09/17/19 11:45 09/19/19 11:42 Chlorhexidine Gluconate (Nereida-Hex 2%) 1 applic DAILY@2000 TOPIC 09/17/19 20:00 12/16/19 19:59 09/17/19 20:31 Heparin Sodium (Porcine) (Heparin 5000 units/ml) 5,000 units EVERY 12 HOURS SUBQ 09/15/19 09:00 10/30/19 08:59 09/17/19 09:58 Hydromorphone HCl (Dilaudid) 1 mg Q3H PRN IVP severe pain 09/16/19 10:45 09/22/19 04:44 Iohexol (OMNIPAQUE-300 100ml) 100 ml NOW PRN INJ Radiology Procedure 09/17/19 11:45 09/19/19 11:42 Iohexol (OMNIPAQUE-300 100ml) 100 ml ONCE PRN INJ radiology procedure 09/17/19 11:00 09/18/19 23:59 Levofloxacin (Levaquin) 500 mg Q24H ORAL 09/17/19 12:00 09/24/19 11:59 Linezolid 300 ml @ 300 mls/hr Q12H IVPB 09/15/19 09:00 09/22/19 08:59 09/17/19 21:15 Multivitamins (Multivitamins) 1 tab DAILY ORAL 09/17/19 09:00 10/17/19 08:59 09/17/19 09:55 Pantoprazole (Protonix) 40 mg DAILY ORAL 09/15/19 09:00 10/15/19 08:59 09/17/19 09:54 Sodium Chloride 1,000 ml @ 100 mls/hr Q10H IVLG 09/15/19 05:31 10/15/19 05:30 09/18/19 04:26 Zinc Sulfate (Zinc Sulfate) 220 mg DAILY ORAL 09/17/19 09:00 09/27/19 08:59 09/17/19 09:55 Assessment/Plan Assessment/Plan IMPRESSION: 1. Chronic opioid dependence, possible some withdrawal associated tachycardia. 2. Hyponatremia. 3. Hypokalemia. 4. Severe protein-calorie malnutrition. 5. Mild coagulopathy. 6. Leukocytosis. 7. Anemia, possible sepsis. 8. Multiple antibiotic allergies. 9. sinus tachycardia PLAN care noted no distress PICC care- and wound care IV antibiotics per ID ID and pain management needed needs hydration and transfusion needs access pain management issues monitor tachycardia impression, plan, and exam edited and reviewed in detail care discussed with Thanh Garcia MD Sep 18, 2019 08:42
--- NOTE | 2019-09-18 08:45 | General Progress Note ---
Assessment/Plan Assessment/Plan: (1) Paraplegia (2) Spinal cord injury (3) Lumbar spine osteomyelitis discitis (4) Paraspinal abscess s/p drainage (5) Sacral decubitus ulcer (6) Intractable pain We will continue the Dilaudid reduced to 0.5mg IV Q3H PRN severe pain D/w Dr. Avina and he concurred. Subjective Date patient seen: Sep 18, 2019 Time patient seen: 08:15 - am Constitutional: Reports: weakness HEENT: Reports: no symptoms Cardiovascular: Reports: no symptoms Respiratory: Reports: no symptoms Gastrointestinal/Abdominal: Reports: no symptoms Genitourinary: Reports: no symptoms Neurologic/Psychiatric: Reports: weakness Endocrine: Reports: no symptoms Hematologic/Lymphatic: Reports: no symptoms Allergies: Coded Allergies: CEFTRIAXONE (Verified Allergy, Intermediate, SOB, HR-140bpm, face swollen , pt became red, 10/24/15) CODEINE (Verified Allergy, Intermediate, SWELLING, 01/03/11) LATEX (Verified Allergy, Intermediate, SWELLING, 01/03/11) PIPERACILLIN (Verified Allergy, Intermediate, Itching, 08/29/15) 08/29/15 tolerates Ceftaroline TAZOBACTAM (Verified Allergy, Intermediate, Itching, 01/29/15) POLYMYXIN B (Verified Allergy, Mild, Rash, 04/08/16) Suspected allergy reported by VANCOMYCIN (Verified Allergy, Mild, 07/15/14) ASPARAGINASE (Verified Allergy, Unknown, 01/28/14) CEFUROXIME (Unverified Allergy, Unknown, 04/19/16) IRON (Verified Allergy, Unknown, 01/28/14) LATEX, NATURAL RUBBER (Unverified Allergy, Unknown, 06/18/16) Subjective Patient is in bed reports that she is not in any pain at this time and continues to no request the Dilaudid IV. D/w her about reducing the strength and she seems to understand. Was seen by ID and CT ABD/PELVIS was ordered to asses abscess. Objective Last 24 Hour Vital Signs Date Time Temp Pulse Resp B/P (MAP) Pulse Ox O2 Delivery O2 Flow Rate FiO2 09/18/19 04:00 98.2 111 19 105/63 (77) 98 09/18/19 04:00 124 09/18/19 00:00 97.1 118 19 94/57 (69) 99 09/18/19 00:00 123 09/17/19 21:00 Room Air 09/17/19 20:00 98.8 110 18 107/52 (70) 100 09/17/19 20:00 125 09/17/19 16:00 96.7 80 20 89/50 (63) 97 09/17/19 16:00 127 09/17/19 12:00 123 09/17/19 12:00 96.5 63 20 149/63 (91) 97 09/17/19 09:00 Room Air Intake and Output 09/17/19 09/18/19 19:00 07:00 Intake Total 358 ml Output Total 300 ml Balance 58 ml Intake Oral 358 ml Output Stool Total 300 ml # Voids 1 Height (Feet): 5 Height (Inches): 5.00 Weight (Pounds): 193 General Appearance: no apparent distress, alert EENT: PERRL/EOMI, normal ENT inspection Neck: non-tender, normal alignment Cardiovascular: normal rate, regular rhythm Respiratory/Chest: decreased breath sounds Abdomen: other - colostomy Extremities: other - wounds noted Edema: mild edema Neurologic: alert, responsive Mike Ellis Sep 18, 2019 08:45
[2019-09-18] MEDS: Ascorbic Acid 500mg tab ORAL SCH ×2 (10:21→18:26)
[2019-09-18] MEDS: Heparin 5000 units/ml inj SUBQ SCH ×2 (10:21→20:35)
[2019-09-18] MEDS: Zinc Sulfate 220mg ORAL SCH (10:21)
--- NOTE | 2019-09-18 10:49 | Infectious Diseases Prog Note ---
"Assessment/Plan Assessment/Plan antibiotics : linezolid, levoquin A 1. pseudomonas | enterobacter pneumonia. 2. We would like to rule out persistent lumbar abscess. 3. Paraplegia. 4. Leukocytosis is improving. P 1. continue linezolid 2. d/c levoquin 3. start inhaled gentamicin 4. will follow up cultures 5. CT abdomen | pelvis without contrast as patient is refusing contrast Subjective Constitutional: Denies: fever, chills Respiratory: Denies: shortness of breath, dry cough Gastrointestinal/Abdominal: Denies: nausea, vomiting, diarrhea Musculoskeletal: Reports: pain - back decreased Allergies: Coded Allergies: CEFTRIAXONE (Verified Allergy, Intermediate, SOB, HR-140bpm, face swollen , pt became red, 10/24/15) CODEINE (Verified Allergy, Intermediate, SWELLING, 01/03/11) LATEX (Verified Allergy, Intermediate, SWELLING, 01/03/11) PIPERACILLIN (Verified Allergy, Intermediate, Itching, 08/29/15) 08/29/15 tolerates Ceftaroline TAZOBACTAM (Verified Allergy, Intermediate, Itching, 01/29/15) POLYMYXIN B (Verified Allergy, Mild, Rash, 04/08/16) Suspected allergy reported by VANCOMYCIN (Verified Allergy, Mild, 07/15/14) ASPARAGINASE (Verified Allergy, Unknown, 01/28/14) CEFUROXIME (Unverified Allergy, Unknown, 04/19/16) IRON (Verified Allergy, Unknown, 01/28/14) LATEX, NATURAL RUBBER (Unverified Allergy, Unknown, 06/18/16) Objective Vital Signs Last 24 Hour Vital Signs Date Time Temp Pulse Resp B/P (MAP) Pulse Ox O2 Delivery O2 Flow Rate FiO2 09/18/19 04:00 98.2 111 19 105/63 (77) 98 09/18/19 04:00 124 09/18/19 00:00 97.1 118 19 94/57 (69) 99 09/18/19 00:00 123 09/17/19 21:00 Room Air 09/17/19 20:00 98.8 110 18 107/52 (70) 100 09/17/19 20:00 125 09/17/19 16:00 96.7 80 20 89/50 (63) 97 09/17/19 16:00 127 09/17/19 12:00 123 09/17/19 12:00 96.5 63 20 149/63 (91) 97 Height (Feet): 5 Height (Inches): 5.00 Weight (Pounds): 193 Respiratory/Chest: lungs clear Cardiovascular: normal rate, regular rhythm, no gallop/murmur Abdomen: soft, non tender, other - ostomy Extremities: no edema, other - left arm PICC Current Medications Medications (Trade) Dose Ordered Sig/Pineda Route PRN Reason Start Time Stop Time Status Last Admin Dose Admin Acetaminophen (Tylenol) 650 mg Q4H PRN ORAL Mild Pain (Pain Scale 1-3) 09/15/19 04:45 10/15/19 04:44 Al Hydroxide/Mg Hydroxide (Mylanta II) 30 ml Q6H PRN ORAL dyspepsia 09/15/19 04:45 10/15/19 04:44 Albuterol Sulfate (Proventil MDI) 2 puff Q4H PRN INH Shortness of Breath 09/15/19 19:00 12/14/19 18:59 Ascorbic Acid (Vitamin C) 500 mg TWICE A DAY ORAL 09/16/19 18:00 10/16/19 17:59 09/18/19 10:21 Barium Sulfate (Readi-Cat 2) 450 ml NOW PRN ORAL Radiology Procedure 09/17/19 11:45 09/19/19 11:42 Chlorhexidine Gluconate (Nereida-Hex 2%) 1 applic DAILY@1999 TOPIC 09/17/19 20:00 12/16/19 19:59 09/17/19 20:31 Heparin Sodium (Porcine) (Heparin 5000 units/ml) 5,000 units EVERY 12 HOURS SUBQ 09/15/19 09:00 10/30/19 08:59 09/18/19 10:21 Hydromorphone HCl (Dilaudid) 0.5 mg Q3H PRN IVP severe pain 09/18/19 10:45 09/22/19 04:44 Iohexol (OMNIPAQUE-300 100ml) 100 ml NOW PRN INJ Radiology Procedure 09/17/19 11:45 09/19/19 11:42 Iohexol (OMNIPAQUE-300 100ml) 100 ml ONCE PRN INJ radiology procedure 09/17/19 11:00 09/18/19 23:59 Levofloxacin (Levaquin) 500 mg Q24H ORAL 09/17/19 12:00 09/24/19 11:59 Linezolid 300 ml @ 300 mls/hr Q12H IVPB 09/15/19 09:00 09/22/19 08:59 09/18/19 10:20 Multivitamins (Multivitamins) 1 tab DAILY ORAL 09/17/19 09:00 10/17/19 08:59 09/18/19 10:20 Pantoprazole (Protonix) 40 mg DAILY ORAL 09/15/19 09:00 10/15/19 08:59 09/18/19 10:21 Sodium Chloride 1,000 ml @ 100 mls/hr Q10H IVLG 09/15/19 05:31 10/15/19 05:30 09/18/19 04:26 Zinc Sulfate (Zinc Sulfate) 220 mg DAILY ORAL 09/17/19 09:00 09/27/19 08:59 09/18/19 10:21 Deng Reyes MD Sep 18, 2019 10:49"
[2019-09-18 12:00] VITALS: BP 104/49
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
[2019-09-18] MEDS: HYDROmorphone 1mg/ml Carpuject IVP PRN ×2 (15:52→20:26)
[2019-09-18 16:00] VITALS: BP 108/56
--- NOTE | 2019-09-18 16:46 | Surgery Progress Note ---
Surgery Progress Note Subjective Additional Comments no acute events comfortable stable discussed care with Dr. Cristobal and recs appreciated Objective Last 24 Hour Vital Signs Date Time Temp Pulse Resp B/P (MAP) Pulse Ox O2 Delivery O2 Flow Rate FiO2 09/18/19 04:00 98.2 111 19 105/63 (77) 98 09/18/19 04:00 124 09/18/19 00:00 97.1 118 19 94/57 (69) 99 09/18/19 00:00 123 09/17/19 21:00 Room Air 09/17/19 20:00 98.8 110 18 107/52 (70) 100 09/17/19 20:00 125 I&O Intake and Output 09/17/19 09/18/19 19:00 07:00 Intake Total 358 ml Output Total 300 ml Balance 58 ml Intake Oral 358 ml Output Stool Total 300 ml # Voids 1 Dressing: saturated Wound: other Drains: other Cardiovascular: RSR Respiratory: decreased breath sounds Abdomen: soft, present bowel sounds Extremities: no cyanosis, other Plan Problems: (1) Pressure ulcer Assessment & Plan: Pt presented on admission with keloid scars and multiple pressure injuries. she knows her Tx plan well and is active in her care plan R hip noted to be erythematous,shiny and taut skin healing wounds full thickness stage 4 sacral pressure injury (L)6.5cm x (W)3.5cm x (D) 1.6cm.mixed pink granulation with scattered slough at base of wound. Hyperpigmentation periwound. No odor or exudate noted. DTPI noted to upper R gluteal cheek(L)1.4cm x (W)3cm. Base of injury is indurated, purple with maroon borders. Full thickness stage 4 pressure injury lower R buttocks(L)1cm x (W)1.6cm x (D) 1.5cm. [place] granulation with scattered slough at base of wound. Edges are macerated. Full thickness stage 4 pressure injury L ischium.(L)1cmx (W)7.8cm x (D)cm. [id number] slough with pink granulation. Edges are macerated. Full thickness stage 4 wound posterior R knee. [place] granulation at base of wound. Small amt non-odorous serous exudate noted. Unstageable wound distal/lateral R tibia(L)5cm x (W)1.5cm. Stable dry eschar noted. Edges adherent to base of wound. No erythema or fluctuance periwound. Full thickness stage 3 wound lateral R tibia,inferior to above eschar(L)3.3cm x (W)2.5cm. Base of wound is pink and granular. No odor or exudate noted. Full thickness wound posterior L leg . Wound is granular with epithelial borders. No odor or exudate noted..Skin is otherwise dry and scaly and with pt' s permission both lower ext moisturized with Phytoplex Moisturizing Lotion. posterior lower back . Tx.Plan: patient with extensive wound care plan. will obtain records from her plastic surgeon who is a colleague of robyn and stephen with care plan. Discussed care with Dr. Cristobal Wash left knee with normal saline. Apply gauze packing and dressing to left knee wound daily and PRN saturation Right leg superficial granulated wounds apply Xeroform followed by gauze ABD change daily and PRN saturation Left hip deep wound apply Dakin's quarter percent packing and dressing twice daily and PRN saturation Back buttock apply OPTi foam after washing wounds daily and PRN saturation Monitor for incontinence change accordingly thank you will follow the recommendations Air mattress ordered Reposition at least every 2hours or as tolerated. Off-load heels with Pillow. APM/MARICARMEN Mattress overlay. (2) Osteomyelitis (3) Paraplegia (4) Leukocytosis Assessment & Plan: wounds chronic and osteo diagnosed prior on abx left arm line in place trend labs cont abx will follow with recs micro reviewed (5) Abdominal pain (6) Nausea & vomiting Assessment & Plan: DAILY ESTIMATED NEEDS: Needs based on Wound + paraplegia, 65 kg abw 28-30 kcals/kg 9209-2506 total kcals 1.25-2 g protein/kg 81-130 g total protein Fluid per MD NUTRITION DIAGNOSIS: Increased KCAL, protein, and micronutrient needs r/t wound healing as evidenced pt w/ multiple full thickness wounds @ sacrum, R buttock, L ischium, R knee, poasterior L leg, lateral R tibia, unstageable wound @ distal/lateral R tibia, and DTPI @ R gluteal cheek, w/ new paraspinal abscess as per prior recent adm. CURRENT DIET: Regular PO DIET RECOMMENDATIONS: [facility] MED DIET ADDITIONAL RECOMMENDATIONS: * Recalibrated bedscale wt for accurate CBW-> monitor weekly wts * WOUND CARE: MVI w/ min x1+VIT C 500mg BID ZnSO4 220mg QD x 10 days Luiz BID recommended but pt w/ h/o refusal * Monitor BGs, recent adm w/ hypoglycemic episodes Monitor for consistent po intake, need for HS D5 * Monitor lytes, replete as needed Jax Allison Sep 18, 2019 16:46
[2019-09-18 20:00] VITALS: BP 124/75
[2019-09-18 20:13] LABS: BASOPHILS % (AUTO) 0.5 % (0.0-2.0); EOSINOPHILS % (AUTO) 1.6 % (0.0-3.0); HEMATOCRIT 32.6 % (37.0-47.0); HEMOGLOBIN 9.9 G/DL (12.0-16.0); LYMPHOCYTES % (AUTO) 29.2 % (20.0-45.0); MEAN CORPUSCULAR VOLUME 93 FL (80-99); MONOCYTES % (AUTO) 4.6 % (1.0-10.0); NEUTROPHILS % (AUTO) 64.1 % (45.0-75.0); PLATELET COUNT 518 K/UL (150-450); RED BLOOD COUNT 3.53 M/UL (4.20-5.40); RED CELL DISTRIBUTION WIDTH 15.7 % (11.6-14.8); WHITE BLOOD COUNT 10.2 K/UL (4.8-10.8)
[2019-09-18] MEDS: Dyna-Hex 2% Top Sol 2oz TOPIC SCH (20:26)
[2019-09-18 20:44] LABS: ANION GAP 10 mmol/L (5-15); BLOOD UREA NITROGEN 12 mg/dL (7-18); CALCIUM 7.5 MG/DL (8.5-10.1); CARBON DIOXIDE 23 MMOL/L (21-32); CHLORIDE 102 MMOL/L (98-107); CREATININE 0.9 MG/DL (0.55-1.30); POTASSIUM 4.5 MMOL/L (3.5-5.1); SODIUM 135 MMOL/L (136-145)
[2019-09-18] MEDS: Gentamicin for inhalation INH SCH (22:00)
[2019-09-19] VITALS: BP 112/58
[2019-09-19] MEDS: HYDROmorphone 1mg/ml Carpuject IVP PRN ×4 (02:35→20:26)
[2019-09-19 04:00] VITALS: BP 115/62
[2019-09-19 08:00] VITALS: BP 106/54
[2019-09-19] MEDS: Zinc Sulfate 220mg ORAL SCH (08:15)
[2019-09-19] MEDS: Ascorbic Acid 500mg tab ORAL SCH ×2 (08:15→18:00)
[2019-09-19] MEDS: Heparin 5000 units/ml inj SUBQ SCH ×2 (08:16→20:26)
[2019-09-19] MEDS: Gentamicin for inhalation INH SCH ×2 (10:00→22:00)
[2019-09-19 12:00] VITALS: BP 118/69
[2019-09-19] MEDS: Dakin's 0.125% Soln (Quarter Strength) 16oz TOPIC SCH ×2 (12:00→18:00)
--- NOTE | 2019-09-19 14:05 | Surgery Progress Note ---
Surgery Progress Note Subjective Additional Comments no acute events labs noted micro reviewed exam stable no n/v/f/c Objective Last 24 Hour Vital Signs Date Time Temp Pulse Resp B/P (MAP) Pulse Ox O2 Delivery O2 Flow Rate FiO2 09/19/19 09:00 Room Air 09/19/19 08:00 97.7 115 20 106/54 (71) 98 09/19/19 04:00 97.2 111 20 115/62 (79) 96 09/19/19 04:00 122 09/19/19 03:05 98.6 09/19/19 00:02 120 09/19/19 00:00 121 09/19/19 00:00 97.5 118 19 112/58 (76) 97 09/18/19 21:00 Room Air 09/18/19 20:00 98.0 124 18 124/75 (91) 97 09/18/19 20:00 123 09/18/19 16:00 98.6 116 19 108/56 (73) 100 09/18/19 16:00 123 I&O Intake and Output 09/18/19 09/19/19 19:00 07:00 Intake Total 100 ml 1300 ml Balance 100 ml 1300 ml IV Total 100 ml 1300 ml Dressing: other Wound: other Drains: other Cardiovascular: RSR Respiratory: decreased breath sounds Abdomen: soft, non-tender, present bowel sounds Extremities: no tenderness, no cyanosis Laboratory Tests Test 09/18/19 15:30 White Blood Count 10.2 K/UL (4.8-10.8) Red Blood Count 3.53 M/UL (4.20-5.40) L Hemoglobin 9.9 G/DL (12.0-16.0) L Hematocrit 32.6 % (37.0-47.0) L Mean Corpuscular Volume 93 FL (80-99) Mean Corpuscular Hemoglobin 28.1 PG (27.0-31.0) Mean Corpuscular Hemoglobin Concent 30.4 G/DL (32.0-36.0) L Red Cell Distribution Width 15.7 % (11.6-14.8) H Platelet Count 518 K/UL (150-450) H Mean Platelet Volume 5.5 FL (6.5-10.1) L Neutrophils (%) (Auto) 64.1 % (45.0-75.0) Lymphocytes (%) (Auto) 29.2 % (20.0-45.0) Monocytes (%) (Auto) 4.6 % (1.0-10.0) Eosinophils (%) (Auto) 1.6 % (0.0-3.0) Basophils (%) (Auto) 0.5 % (0.0-2.0) Sodium Level 135 MMOL/L (136-145) L Potassium Level 4.5 MMOL/L (3.5-5.1) Chloride Level 102 MMOL/L (98-107) Carbon Dioxide Level 23 MMOL/L (21-32) Anion Gap 10 mmol/L (5-15) Blood Urea Nitrogen 12 mg/dL (7-18) Creatinine 0.9 MG/DL (0.55-1.30) Estimat Glomerular Filtration Rate > 60 mL/min (>60) Glucose Level 124 MG/DL (74-106) H Calcium Level 7.5 MG/DL (8.5-10.1) L Plan Problems: (1) Pressure ulcer Assessment & Plan: Pt presented on admission with keloid scars and multiple pressure injuries. she knows her Tx plan well and is active in her care plan R hip noted to be erythematous,shiny and taut skin healing wounds full thickness stage 4 sacral pressure injury (L)6.5cm x (W)3.5cm x (D) 1.6cm.mixed pink granulation with scattered slough at base of wound. Hyperpigmentation periwound. No odor or exudate noted. DTPI noted to upper R gluteal cheek(L)1.4cm x (W)3cm. Base of injury is indurated, purple with maroon borders. Full thickness stage 4 pressure injury lower R buttocks(L)1cm x (W)1.6cm x (D) 1.5cm. Bernie granulation with scattered slough at base of wound. Edges are macerated. Full thickness stage 4 pressure injury L ischium.(L)1cmx (W)7.8cm x (D)cm. [id number] slough with pink granulation. Edges are macerated. Full thickness stage 4 wound posterior R knee. [place] granulation at base of wound. Small amt non-odorous serous exudate noted. Unstageable wound distal/lateral R tibia(L)5cm x (W)1.5cm. Stable dry eschar noted. Edges adherent to base of wound. No erythema or fluctuance periwound. Full thickness stage 3 wound lateral R tibia,inferior to above eschar(L)3.3cm x (W)2.5cm. Base of wound is pink and granular. No odor or exudate noted. Full thickness wound posterior L leg . Wound is granular with epithelial borders. No odor or exudate noted..Skin is otherwise dry and scaly and with pt' s permission both lower ext moisturized with Phytoplex Moisturizing Lotion. posterior lower back . Tx.Plan: patient with extensive wound care plan. will obtain records from her plastic surgeon who is a colleague of robyn and stephen with care plan. Discussed care with Dr. Cristobal Wash left knee with normal saline. Apply gauze packing and dressing to left knee wound daily and PRN saturation Right leg superficial granulated wounds apply Xeroform followed by gauze ABD change daily and PRN saturation Left hip deep wound apply Dakin's quarter percent packing and dressing twice daily and PRN saturation Back buttock apply OPTi foam after washing wounds daily and PRN saturation Monitor for incontinence change accordingly thank you will follow the recommendations Air mattress ordered Reposition at least every 2hours or as tolerated. Off-load heels with Pillow. APM/MARICARMEN Mattress overlay. (2) Osteomyelitis (3) Paraplegia (4) Leukocytosis Assessment & Plan: wounds chronic and osteo diagnosed prior on abx left arm line in place trend labs cont abx will follow with recs micro reviewed (5) Abdominal pain (6) Nausea & vomiting Assessment & Plan: DAILY ESTIMATED NEEDS: Needs based on Wound + paraplegia, 65 kg abw 28-30 kcals/kg 4786-9845 total kcals 1.25-2 g protein/kg 81-130 g total protein Fluid per MD NUTRITION DIAGNOSIS: Increased KCAL, protein, and micronutrient needs r/t wound healing as evidenced pt w/ multiple full thickness wounds @ sacrum, R buttock, L ischium, R knee, poasterior L leg, lateral R tibia, unstageable wound @ distal/lateral R tibia, and DTPI @ R gluteal cheek, w/ new paraspinal abscess as per prior recent adm. CURRENT DIET: Regular PO DIET [facility] ADDITIONAL RECOMMENDATIONS: * Recalibrated bedscale wt for accurate CBW-> monitor weekly wts * WOUND CARE: MVI w/ min x1+VIT C 500mg BID ZnSO4 220mg QD x 10 days Luiz BID recommended but pt w/ h/o refusal * Monitor BGs, recent adm w/ hypoglycemic episodes Monitor for consistent po intake, need for HS D5 * Monitor lytes, replete as needed Jax Allison Sep 19, 2019 14:05
--- NOTE | 2019-09-19 15:13 | Infectious Diseases Prog Note ---
Assessment/Plan Assessment/Plan A 1. pseudomonas & Enterobacter pneumonia. 2. Psoas & lumbar abscess. 3. Paraplegia. 4. Leukocytosis is resolved 5. Anemia P 1. continue linezolid 2. Continue inhaled gentamicin 4. will follow up cultures 5. patient is refusing radiographic drainage of abscess 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 Respiratory: Reports: no symptoms Gastrointestinal/Abdominal: Reports: no symptoms Genitourinary: Reports: no symptoms Allergies: Coded Allergies: CEFTRIAXONE (Verified Allergy, Intermediate, SOB, HR-140bpm, face swollen , pt became red, 10/24/15) CODEINE (Verified Allergy, Intermediate, SWELLING, 01/03/11) LATEX (Verified Allergy, Intermediate, SWELLING, 01/03/11) PIPERACILLIN (Verified Allergy, Intermediate, Itching, 08/29/15) 08/29/15 tolerates Ceftaroline TAZOBACTAM (Verified Allergy, Intermediate, Itching, 01/29/15) POLYMYXIN B (Verified Allergy, Mild, Rash, 04/08/16) Suspected allergy reported by VANCOMYCIN (Verified Allergy, Mild, 07/15/14) ASPARAGINASE (Verified Allergy, Unknown, 01/28/14) CEFUROXIME (Unverified Allergy, Unknown, 04/19/16) IRON (Verified Allergy, Unknown, 01/28/14) LATEX, NATURAL RUBBER (Unverified Allergy, Unknown, 06/18/16) Objective Vital Signs Last 24 Hour Vital Signs Date Time Temp Pulse Resp B/P (MAP) Pulse Ox O2 Delivery O2 Flow Rate FiO2 09/19/19 12:00 114 09/19/19 12:00 96.8 118 19 118/69 (85) 98 09/19/19 09:00 Room Air 09/19/19 08:00 125 09/19/19 08:00 97.7 115 20 106/54 (71) 98 09/19/19 04:00 97.2 111 20 115/62 (79) 96 09/19/19 04:00 122 09/19/19 03:05 98.6 09/19/19 00:02 120 09/19/19 00:00 121 09/19/19 00:00 97.5 118 19 112/58 (76) 97 09/18/19 21:00 Room Air 6/9/20 20:00 98.0 124 18 124/75 (91) 97 09/18/19 20:00 123 09/18/19 16:00 98.6 116 19 108/56 (73) 100 09/18/19 16:00 123 Height (Feet): 5 Height (Inches): 5.00 Weight (Pounds): 201 General Appearance: no acute distress HEENT: mucous membranes moist Respiratory/Chest: lungs clear Cardiovascular: tachycardia, other - PICC line Abdomen: soft, non tender Skin: ulcers Neurologic/Psychiatric: alert, oriented x 3, responsive, other - Paraplegia Laboratory Tests Test 09/18/19 15:30 White Blood Count 10.2 K/UL (4.8-10.8) Red Blood Count 3.53 M/UL (4.20-5.40) L Hemoglobin 9.9 G/DL (12.0-16.0) L Hematocrit 32.6 % (37.0-47.0) L Mean Corpuscular Volume 93 FL (80-99) Mean Corpuscular Hemoglobin 28.1 PG (27.0-31.0) Mean Corpuscular Hemoglobin Concent 30.4 G/DL (32.0-36.0) L Red Cell Distribution Width 15.7 % (11.6-14.8) H Platelet Count 518 K/UL (150-450) H Mean Platelet Volume 5.5 FL (6.5-10.1) L Neutrophils (%) (Auto) 64.1 % (45.0-75.0) Lymphocytes (%) (Auto) 29.2 % (20.0-45.0) Monocytes (%) (Auto) 4.6 % (1.0-10.0) Eosinophils (%) (Auto) 1.6 % (0.0-3.0) Basophils (%) (Auto) 0.5 % (0.0-2.0) Sodium Level 135 MMOL/L (136-145) L Potassium Level 4.5 MMOL/L (3.5-5.1) Chloride Level 102 MMOL/L (98-107) Carbon Dioxide Level 23 MMOL/L (21-32) Anion Gap 10 mmol/L (5-15) Blood Urea Nitrogen 12 mg/dL (7-18) Creatinine 0.9 MG/DL (0.55-1.30) Estimat Glomerular Filtration Rate > 60 mL/min (>60) Glucose Level 124 MG/DL (74-106) H Calcium Level 7.5 MG/DL (8.5-10.1) L Current Medications Medications (Trade) Dose Ordered Sig/Pineda Route PRN Reason Start Time Stop Time Status Last Admin Dose Admin Acetaminophen (Tylenol) 650 mg Q4H PRN ORAL Mild Pain (Pain Scale 1-3) 09/15/19 04:45 10/15/19 04:44 Al Hydroxide/Mg Hydroxide (Mylanta II) 30 ml Q6H PRN ORAL dyspepsia 09/15/19 04:45 10/15/19 04:44 Albuterol Sulfate (Proventil MDI) 2 puff Q4H PRN INH Shortness of Breath 09/15/19 19:00 12/14/19 18:59 Ascorbic Acid (Vitamin C) 500 mg TWICE A DAY ORAL 09/16/19 18:00 10/16/19 17:59 09/19/19 08:15 Chlorhexidine Gluconate (Nereida-Hex 2%) 1 applic DAILY@2000 TOPIC 09/17/19 20:00 12/16/19 19:59 09/18/19 20:26 Gentamicin Sulfate (Gentamicin vial) 300 mg Q12HR@ INH 09/18/19 22:00 09/25/19 21:59 Heparin Sodium (Porcine) (Heparin 5000 units/ml) 5,000 units EVERY 12 HOURS SUBQ 09/15/19 09:00 10/30/19 08:59 09/19/19 08:16 Hydromorphone HCl (Dilaudid) 0.5 mg Q3H PRN IVP severe pain 09/18/19 10:45 09/22/19 04:44 09/19/19 12:34 Linezolid 300 ml @ 300 mls/hr Q12H IVPB 09/15/19 09:00 09/22/19 08:59 09/19/19 08:14 Multivitamins (Multivitamins) 1 tab DAILY ORAL 09/17/19 09:00 10/17/19 08:59 09/19/19 08:15 Pantoprazole (Protonix) 40 mg DAILY ORAL 09/15/19 09:00 10/15/19 08:59 09/19/19 08:15 Sodium Hypochlorite (Dakin's Quarter Strength) 1 applic BID TOPIC 09/19/19 12:00 10/19/19 11:59 09/19/19 12:00 Sodium Chloride 1,000 ml @ 100 mls/hr Q10H IVLG 09/15/19 05:31 10/15/19 05:30 09/19/19 02:36 Zinc Sulfate (Zinc Sulfate) 220 mg DAILY ORAL 09/17/19 09:00 09/27/19 08:59 09/19/19 08:15 Vaughn Juárez MD Sep 19, 2019 15:13
[2019-09-19 16:00] VITALS: BP 123/71
--- NOTE | 2019-09-19 17:18 | General Progress Note ---
Assessment/Plan Assessment/Plan: (1) Paraplegia (2) Spinal cord injury (3) Lumbar spine osteomyelitis discitis (4) Paraspinal abscess s/p drainage (5) Sacral decubitus ulcer (6) Intractable pain We will continue the Dilaudid D/w Dr. Avina and he concurred. Subjective Date patient seen: Sep 19, 2019 Time patient seen: 05:00 - pm Constitutional: Reports: weakness HEENT: Reports: no symptoms Cardiovascular: Reports: no symptoms Respiratory: Reports: no symptoms Gastrointestinal/Abdominal: Reports: no symptoms Genitourinary: Reports: no symptoms Neurologic/Psychiatric: Reports: weakness Endocrine: Reports: no symptoms Hematologic/Lymphatic: Reports: no symptoms Allergies: Coded Allergies: CEFTRIAXONE (Verified Allergy, Intermediate, SOB, HR-140bpm, face swollen , pt became red, 10/24/15) CODEINE (Verified Allergy, Intermediate, SWELLING, 01/03/11) LATEX (Verified Allergy, Intermediate, SWELLING, 01/03/11) PIPERACILLIN (Verified Allergy, Intermediate, Itching, 08/29/15) 08/29/15 tolerates Ceftaroline TAZOBACTAM (Verified Allergy, Intermediate, Itching, 01/29/15) POLYMYXIN B (Verified Allergy, Mild, Rash, 04/08/16) Suspected allergy reported by VANCOMYCIN (Verified Allergy, Mild, 07/15/14) ASPARAGINASE (Verified Allergy, Unknown, 01/28/14) CEFUROXIME (Unverified Allergy, Unknown, 04/19/16) IRON (Verified Allergy, Unknown, 01/28/14) LATEX, NATURAL RUBBER (Unverified Allergy, Unknown, 06/18/16) Subjective Patient reports that the pain was elevated and a 10/10 this morning has been reduced on the Dilaudid, she has no new complaints or signs of distress at this time. Objective Last 24 Hour Vital Signs Date Time Temp Pulse Resp B/P (MAP) Pulse Ox O2 Delivery O2 Flow Rate FiO2 09/19/19 12:00 114 09/19/19 12:00 96.8 118 19 118/69 (85) 98 09/19/19 09:00 Room Air 09/19/19 08:00 125 09/19/19 08:00 97.7 115 20 106/54 (71) 98 09/19/19 04:00 97.2 111 20 115/62 (79) 96 09/19/19 04:00 122 09/19/19 03:05 98.6 09/19/19 00:02 120 09/19/19 00:00 121 09/19/19 00:00 97.5 118 19 112/58 (76) 97 09/18/19 21:00 Room Air 09/18/19 20:00 98.0 124 18 124/75 (91) 97 09/18/19 20:00 123 Intake and Output 09/18/19 09/19/19 19:00 07:00 Intake Total 100 ml 1300 ml Balance 100 ml 1300 ml IV Total 100 ml 1300 ml Height (Feet): 5 Height (Inches): 5.00 Weight (Pounds): 201 Objective General Appearance: no apparent distress, alert EENT: PERRL/EOMI, normal ENT inspection Neck: non-tender, normal alignment Cardiovascular: normal rate, regular rhythm Respiratory/Chest: decreased breath sounds Abdomen: other - colostomy Extremities: other - wounds noted Edema: mild edema Neurologic: alert, responsive Mike Ellis Sep 19, 2019 17:18
[2019-09-19] MEDS: Dyna-Hex 2% Top Sol 2oz TOPIC SCH (20:25)
[2019-09-20] VITALS: BP 118/62
[2019-09-20 04:00] VITALS: BP 112/60
[2019-09-20] MEDS: HYDROmorphone 1mg/ml Carpuject IVP PRN ×5 (04:43→22:01)
[2019-09-20 08:00] VITALS: BP 112/56
--- NOTE | 2019-09-20 08:37 | Pulmonology Progress Note ---
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 Gastrointestinal/Abdominal: Reports: no symptoms Musculoskeletal: Reports: pain - back decreased Allergies: Coded Allergies: CEFTRIAXONE (Verified Allergy, Intermediate, SOB, HR-140bpm, face swollen , pt became red, 10/24/15) CODEINE (Verified Allergy, Intermediate, SWELLING, 01/03/11) LATEX (Verified Allergy, Intermediate, SWELLING, 01/03/11) PIPERACILLIN (Verified Allergy, Intermediate, Itching, 08/29/15) 08/29/15 tolerates Ceftaroline TAZOBACTAM (Verified Allergy, Intermediate, Itching, 01/29/15) POLYMYXIN B (Verified Allergy, Mild, Rash, 04/08/16) Suspected allergy reported by VANCOMYCIN (Verified Allergy, Mild, 07/15/14) ASPARAGINASE (Verified Allergy, Unknown, 01/28/14) CEFUROXIME (Unverified Allergy, Unknown, 04/19/16) IRON (Verified Allergy, Unknown, 01/28/14) LATEX, NATURAL RUBBER (Unverified Allergy, Unknown, 06/18/16) Subjective care noted CT noted- recurrence of abcesses still tachy pain and weakness Objective Last 24 Hour Vital Signs Date Time Temp Pulse Resp B/P (MAP) Pulse Ox O2 Delivery O2 Flow Rate FiO2 09/20/19 05:20 97.7 09/20/19 04:00 111 09/20/19 04:00 97.7 108 18 112/60 (77) 97 09/20/19 00:00 115 09/20/19 00:00 97.7 114 18 118/62 (80) 98 114 09/19/19 21:23 Room Air 09/19/19 20:00 130 09/19/19 16:00 98.1 103 18 123/71 (88) 71 09/19/19 16:00 121 09/19/19 12:00 114 09/19/19 12:00 96.8 118 19 118/69 (85) 98 09/19/19 09:00 Room Air Intake and Output 09/19/19 09/20/19 19:00 07:00 Intake Total 280 ml Output Total 400 ml Balance -120 ml Intake Oral 280 ml Output Stool Total 400 ml # Voids 2 Objective GENERAL: A well-developed female, currently remains weak HEENT: Otherwise negative. NECK: Supple. No adenopathy. LUNGS: With scattered rhonchi. Moderate air entry. CARDIAC: Tachycardic, otherwise regular without murmurs, rubs, or gallops. ABDOMEN: Soft, obese, and colostomy. EXTREMITIES: No cyanosis, clubbing, or edema. Significant atrophy of the lower limbs. NEUROLOGIC: Otherwise nonfocal with paraparesis. Current Medications Medications (Trade) Dose Ordered Sig/Pineda Route PRN Reason Start Time Stop Time Status Last Admin Dose Admin Acetaminophen (Tylenol) 650 mg Q4H PRN ORAL Mild Pain (Pain Scale 1-3) 09/15/19 04:45 10/15/19 04:44 Al Hydroxide/Mg Hydroxide (Mylanta II) 30 ml Q6H PRN ORAL dyspepsia 09/15/19 04:45 10/15/19 04:44 Albuterol Sulfate (Proventil MDI) 2 puff Q4H PRN INH Shortness of Breath 09/15/19 19:00 12/14/19 18:59 Ascorbic Acid (Vitamin C) 500 mg TWICE A DAY ORAL 09/16/19 18:00 10/16/19 17:59 09/19/19 18:00 Chlorhexidine Gluconate (Nereida-Hex 2%) 1 applic DAILY@2000 TOPIC 09/17/19 20:00 12/16/19 19:59 09/19/19 20:25 Gentamicin Sulfate (Gentamicin vial) 300 mg Q12HR@10,22 INH 09/18/19 22:00 09/25/19 21:59 Heparin Sodium (Porcine) (Heparin 5000 units/ml) 5,000 units EVERY 12 HOURS SUBQ 09/15/19 09:00 10/30/19 08:59 09/19/19 20:26 Hydromorphone HCl (Dilaudid) 0.5 mg Q3H PRN IVP severe pain 09/18/19 10:45 09/22/19 04:44 09/20/19 04:43 Linezolid 300 ml @ 300 mls/hr Q12H IVPB 09/15/19 09:00 09/22/19 08:59 09/19/19 20:35 Multivitamins (Multivitamins) 1 tab DAILY ORAL 09/17/19 09:00 10/17/19 08:59 09/19/19 08:15 Pantoprazole (Protonix) 40 mg DAILY ORAL 09/15/19 09:00 10/15/19 08:59 09/19/19 08:15 Sodium Hypochlorite (Dakin's Quarter Strength) 1 applic BID TOPIC 09/19/19 12:00 10/19/19 11:59 09/19/19 12:00 Sodium Chloride 1,000 ml @ 100 mls/hr Q10H IVLG 09/15/19 05:31 10/15/19 05:30 09/20/19 04:42 Zinc Sulfate (Zinc Sulfate) 220 mg DAILY ORAL 09/17/19 09:00 09/27/19 08:59 09/19/19 08:15 Assessment/Plan Assessment/Plan IMPRESSION: 1. Chronic opioid dependence, possible some withdrawal associated tachycardia. 2. Hyponatremia. 3. Hypokalemia. 4. Severe protein-calorie malnutrition. 5. Mild coagulopathy. 6. Leukocytosis. 7. Anemia, possible sepsis. 8. Multiple antibiotic allergies. 9. sinus tachycardia PLAN care noted no distress PICC care- and wound care IV antibiotics per ID ID and pain management / discuss repeat placement of drainage monitor need for hydration and transfusion maintain access pain management issues monitor tachycardia impression, plan, and exam edited and reviewed in detail care discussed with Thanh Garcia MD Sep 20, 2019 08:37
[2019-09-20] MEDS: Ascorbic Acid 500mg tab ORAL SCH ×2 (09:57→17:26)
[2019-09-20] MEDS: Zinc Sulfate 220mg ORAL SCH (09:57)
[2019-09-20] MEDS: Dakin's 0.125% Soln (Quarter Strength) 16oz TOPIC SCH ×2 (09:57→17:26)
[2019-09-20] MEDS: Heparin 5000 units/ml inj SUBQ SCH ×2 (09:58→21:00)
[2019-09-20] MEDS: Gentamicin for inhalation INH SCH ×3 (10:00→21:22)
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
[2019-09-20] MEDS ORDERED: Lidocaine 1% Plain 30 ml INJ SCH (11:30)
[2019-09-20 12:00] VITALS: BP 101/62
--- NOTE | 2019-09-20 13:19 | General Progress Note ---
Assessment/Plan Assessment/Plan: (1) Paraplegia (2) Spinal cord injury (3) Lumbar spine osteomyelitis discitis (4) Paraspinal abscess s/p drainage (5) Sacral decubitus ulcer (6) Intractable pain We will continue the Dilaudid D/w Dr. Avina and he concurred. Subjective Date patient seen: Sep 20, 2019 Time patient seen: 12:45 - pm Allergies: Coded Allergies: CEFTRIAXONE (Verified Allergy, Intermediate, SOB, HR-140bpm, face swollen , pt became red, 10/24/15) CODEINE (Verified Allergy, Intermediate, SWELLING, 01/03/11) LATEX (Verified Allergy, Intermediate, SWELLING, 01/03/11) PIPERACILLIN (Verified Allergy, Intermediate, Itching, 08/29/15) 08/29/15 tolerates Ceftaroline TAZOBACTAM (Verified Allergy, Intermediate, Itching, 01/29/15) POLYMYXIN B (Verified Allergy, Mild, Rash, 04/08/16) Suspected allergy reported by MD VANCOMYCIN (Verified Allergy, Mild, 07/15/14) ASPARAGINASE (Verified Allergy, Unknown, 01/28/14) CEFUROXIME (Unverified Allergy, Unknown, 04/19/16) IRON (Verified Allergy, Unknown, 01/28/14) LATEX, NATURAL RUBBER (Unverified Allergy, Unknown, 06/18/16) Subjective Constitutional: Reports: weakness HEENT: Reports: no symptoms Cardiovascular: Reports: no symptoms Respiratory: Reports: no symptoms Gastrointestinal/Abdominal: Reports: no symptoms Genitourinary: Reports: no symptoms Neurologic/Psychiatric: Reports: weakness Endocrine: Reports: no symptoms Hematologic/Lymphatic: Reports: no symptoms Subjective Patient has been in bed and reports that she has been scheduled for a CT guided abscess drainage. Her pain has been at a moderate level using 4 doses of the Dilaudid in the last 24hrs. No new complaints at this time. Objective Last 24 Hour Vital Signs Date Time Temp Pulse Resp B/P (MAP) Pulse Ox O2 Delivery O2 Flow Rate FiO2 09/20/19 12:00 98.8 101 18 101/62 (75) 96 09/20/19 11:54 106 09/20/19 09:00 Room Air 09/20/19 08:46 103 09/20/19 08:00 98.1 102 18 112/56 (74) 96 09/20/19 05:20 97.7 09/20/19 04:00 111 09/20/19 04:00 97.7 108 18 112/60 (77) 97 09/20/19 00:00 115 09/20/19 00:00 97.7 114 18 118/62 (80) 98 114 09/19/19 21:23 Room Air 09/19/19 20:00 130 09/19/19 16:00 98.1 103 18 123/71 (88) 71 09/19/19 16:00 121 Intake and Output 09/19/19 09/20/19 19:00 07:00 Intake Total 280 ml 100 ml Output Total 400 ml Balance -120 ml 100 ml Intake Oral 280 ml IV Total 100 ml Output Stool Total 400 ml # Voids 2 Height (Feet): 5 Height (Inches): 5.00 Weight (Pounds): 201 Objective General Appearance: no apparent distress, alert EENT: PERRL/EOMI, normal ENT inspection Neck: non-tender, normal alignment Cardiovascular: normal rate, regular rhythm Respiratory/Chest: decreased breath sounds Abdomen: other - colostomy Extremities: other - wounds noted Edema: mild edema Neurologic: alert, responsive Mike Ellis Sep 20, 2019 13:19
--- NOTE | 2019-09-20 15:05 | Infectious Diseases Prog Note ---
Assessment/Plan Assessment/Plan A 1. pseudomonas & Enterobacter pneumonia. 2. Psoas & lumbar abscess. 3. Paraplegia. 4. Leukocytosis is resolved 5. Anemia P 1. continue linezolid 2. Continue inhaled gentamicin 4. will follow up cultures 5. patient is agreed on radiographic drainage of abscess 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 Respiratory: Reports: no symptoms Cardiovascular: Reports: no symptoms Gastrointestinal/Abdominal: Reports: no symptoms Skin: Reports: other - itching Allergies: Coded Allergies: CEFTRIAXONE (Verified Allergy, Intermediate, SOB, HR-140bpm, face swollen , pt became red, 10/24/15) CODEINE (Verified Allergy, Intermediate, SWELLING, 01/03/11) LATEX (Verified Allergy, Intermediate, SWELLING, 01/03/11) PIPERACILLIN (Verified Allergy, Intermediate, Itching, 08/29/15) 08/29/15 tolerates Ceftaroline TAZOBACTAM (Verified Allergy, Intermediate, Itching, 01/29/15) POLYMYXIN B (Verified Allergy, Mild, Rash, 04/08/16) Suspected allergy reported by VANCOMYCIN (Verified Allergy, Mild, 07/15/14) ASPARAGINASE (Verified Allergy, Unknown, 01/28/14) CEFUROXIME (Unverified Allergy, Unknown, 04/19/16) IRON (Verified Allergy, Unknown, 01/28/14) LATEX, NATURAL RUBBER (Unverified Allergy, Unknown, 06/18/16) Objective Vital Signs Last 24 Hour Vital Signs Date Time Temp Pulse Resp B/P (MAP) Pulse Ox O2 Delivery O2 Flow Rate FiO2 09/20/19 12:00 98.8 101 18 101/62 (75) 96 09/20/19 11:54 106 09/20/19 09:00 Room Air 09/20/19 08:46 103 09/20/19 08:00 98.1 102 18 112/56 (74) 96 09/20/19 05:20 97.7 09/20/19 04:00 111 09/20/19 04:00 97.7 108 18 112/60 (77) 97 09/20/19 00:00 115 09/20/19 00:00 97.7 114 18 118/62 (80) 98 114 09/19/19 21:23 Room Air 09/19/19 20:00 130 09/19/19 16:00 98.1 103 18 123/71 (88) 71 09/19/19 16:00 121 Height (Feet): 5 Height (Inches): 5.00 Weight (Pounds): 201 General Appearance: no acute distress HEENT: mucous membranes moist Respiratory/Chest: lungs clear Cardiovascular: tachycardia Abdomen: soft, non tender Skin: other - skin scaling Neurologic/Psychiatric: alert, oriented x 3, responsive Current Medications Medications (Trade) Dose Ordered Sig/Pineda Route PRN Reason Start Time Stop Time Status Last Admin Dose Admin Acetaminophen (Tylenol) 650 mg Q4H PRN ORAL Mild Pain (Pain Scale 1-3) 09/15/19 04:45 10/15/19 04:44 Al Hydroxide/Mg Hydroxide (Mylanta II) 30 ml Q6H PRN ORAL dyspepsia 09/15/19 04:45 10/15/19 04:44 Albuterol Sulfate (Proventil MDI) 2 puff Q4H PRN INH Shortness of Breath 09/15/19 19:00 12/14/19 18:59 Ascorbic Acid (Vitamin C) 500 mg TWICE A DAY ORAL 09/16/19 18:00 10/16/19 17:59 09/20/19 09:57 Chlorhexidine Gluconate (Nereida-Hex 2%) 1 applic DAILY@2000 TOPIC 09/17/19 20:00 12/16/19 19:59 09/19/19 20:25 Gentamicin Sulfate (Gentamicin vial) 300 mg Q12HR@10,22 INH 09/18/19 22:00 09/25/19 21:59 Heparin Sodium (Porcine) (Heparin 5000 units/ml) 5,000 units EVERY 12 HOURS SUBQ 09/15/19 09:00 10/30/19 08:59 09/20/19 09:58 Hydromorphone HCl (Dilaudid) 0.5 mg Q3H PRN IVP severe pain 09/18/19 10:45 09/22/19 04:44 09/20/19 13:35 Linezolid 300 ml @ 300 mls/hr Q12H IVPB 09/15/19 09:00 09/22/19 08:59 09/20/19 10:12 Multivitamins (Multivitamins) 1 tab DAILY ORAL 09/17/19 09:00 10/17/19 08:59 09/20/19 09:57 Pantoprazole (Protonix) 40 mg DAILY ORAL 09/15/19 09:00 10/15/19 08:59 09/20/19 09:57 Sodium Hypochlorite (Dakin's Quarter Strength) 1 applic BID TOPIC 09/19/19 12:00 10/19/19 11:59 09/20/19 09:57 Sodium Chloride 1,000 ml @ 100 mls/hr Q10H IVLG 09/15/19 05:31 10/15/19 05:30 09/20/19 04:42 Zinc Sulfate (Zinc Sulfate) 220 mg DAILY ORAL 09/17/19 09:00 09/27/19 08:59 09/20/19 09:57 Vaughn Juárez MD Sep 20, 2019 15:04
[2019-09-20 16:00] VITALS: BP 100/48
[2019-09-20 20:00] VITALS: BP 102/65
[2019-09-20] MEDS: Dyna-Hex 2% Top Sol 2oz TOPIC SCH (20:00)
[2019-09-20] MEDS ORDERED: Mylanta II UD 30ml ORAL PRN (21:45)
[2019-09-20] MEDS ORDERED: Albuterol 90mcg Inhaler 8gm INH PRN (23:00)
[2019-09-21] VITALS (28 sets, daily range): BP systolic 108–138; BP diastolic 55–78
[2019-09-21] MEDS: HYDROmorphone 1mg/ml Carpuject IVP PRN ×6 (01:49→23:01)
[2019-09-21 07:32] LABS: ALANINE AMINOTRANSFERASE 14 U/L (12-78); ALBUMIN/GLOBULIN RATIO 0.2 (1.0-2.7); ALKALINE PHOSPHATASE 144 U/L (46-116); ANION GAP 10 mmol/L (5-15); ASPARTATE AMINO TRANSFERASE 17 U/L (15-37); BILIRUBIN,TOTAL 0.2 MG/DL (0.2-1.0); BLOOD UREA NITROGEN 14 mg/dL (7-18); CALCIUM 7.5 MG/DL (8.5-10.1); CARBON DIOXIDE 22 MMOL/L (21-32); CHLORIDE 105 MMOL/L (98-107); CREATININE 0.8 MG/DL (0.55-1.30); POTASSIUM 3.8 MMOL/L (3.5-5.1); SODIUM 137 MMOL/L (136-145)
[2019-09-21 07:34] LABS: BASOPHILS % (AUTO) 0.9 % (0.0-2.0); EOSINOPHILS % (AUTO) 5.3 % (0.0-3.0); HEMATOCRIT 27.1 % (37.0-47.0); HEMOGLOBIN 8.6 G/DL (12.0-16.0); MEAN CORPUSCULAR VOLUME 92 FL (80-99); MONOCYTES % (AUTO) 7.2 % (1.0-10.0); NEUTROPHILS % (AUTO) 54.7 % (45.0-75.0); PLATELET COUNT 405 K/UL (150-450); RED BLOOD COUNT 2.94 M/UL (4.20-5.40); RED CELL DISTRIBUTION WIDTH 14.2 % (11.6-14.8); WHITE BLOOD COUNT 7.6 K/UL (4.8-10.8)
[2019-09-21 07:37] LABS: INR 1.1 (0.9-1.1)
[2019-09-21] MEDS: Gentamicin for inhalation INH SCH (07:43)
--- NOTE | 2019-09-21 08:44 | Pulmonology Progress Note ---
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 Gastrointestinal/Abdominal: Reports: no symptoms Skin: Reports: other - itching Musculoskeletal: Reports: pain - back decreased Allergies: Coded Allergies: CEFTRIAXONE (Verified Allergy, Intermediate, SOB, HR-140bpm, face swollen , pt became red, 10/24/15) CODEINE (Verified Allergy, Intermediate, SWELLING, 01/03/11) LATEX (Verified Allergy, Intermediate, SWELLING, 01/03/11) PIPERACILLIN (Verified Allergy, Intermediate, Itching, 08/29/15) 08/29/15 tolerates Ceftaroline TAZOBACTAM (Verified Allergy, Intermediate, Itching, 01/29/15) POLYMYXIN B (Verified Allergy, Mild, Rash, 04/08/16) Suspected allergy reported by VANCOMYCIN (Verified Allergy, Mild, 07/15/14) ASPARAGINASE (Verified Allergy, Unknown, 01/28/14) CEFUROXIME (Unverified Allergy, Unknown, 04/19/16) IRON (Verified Allergy, Unknown, 01/28/14) LATEX, NATURAL RUBBER (Unverified Allergy, Unknown, 06/18/16) Subjective care noted CT noted- await drain still tachy pain and weakness low mag Objective Last 24 Hour Vital Signs Date Time Temp Pulse Resp B/P (MAP) Pulse Ox O2 Delivery O2 Flow Rate FiO2 09/21/19 07:44 96 Room Air 09/21/19 04:00 98.1 110 20 123/69 (87) 97 09/21/19 00:00 99.3 109 22 112/65 (81) 97 09/20/19 21:00 Room Air 09/20/19 20:24 97 Room Air 09/20/19 20:00 98.1 102 17 102/65 (77) 97 09/20/19 16:00 98.4 105 18 100/48 (65) 98 09/20/19 12:00 98.8 101 18 101/62 (75) 96 09/20/19 11:54 106 09/20/19 09:00 Room Air 09/20/19 08:46 103 Intake and Output 09/20/19 09/21/19 19:00 07:00 Intake Total 1200 ml 800 ml Output Total 300 ml Balance 1200 ml 500 ml IV Total 1200 ml 800 ml Output Stool Total 300 ml Objective GENERAL: A well-developed female, currently remains weak HEENT: Otherwise negative. NECK: Supple. No adenopathy. LUNGS: With scattered rhonchi. Moderate air entry. CARDIAC: Tachycardic, otherwise regular without murmurs, rubs, or gallops. ABDOMEN: Soft, obese, and colostomy. EXTREMITIES: No cyanosis, clubbing, or edema. Significant atrophy of the lower limbs. NEUROLOGIC: Otherwise nonfocal with paraparesis. Laboratory Tests 09/21/19 05:30: White Blood Count 7.6, Red Blood Count 2.94L, Hemoglobin 8.6L, Hematocrit 27.1L , Mean Corpuscular Volume 92, Mean Corpuscular Hemoglobin 29.2, Mean Corpuscular Hemoglobin Concent 31.6L, Red Cell Distribution Width 14.2, Platelet Count 405, Mean Platelet Volume 5.3L, Neutrophils (%) (Auto) 54.7, Lymphocytes (%) (Auto) 32.0, Monocytes (%) (Auto) 7.2, Eosinophils (%) (Auto) 5.3H, Basophils (%) (Auto) 0.9, Erythrocyte Sedimentation Rate [Pending], Prothrombin Time 11.8H, Prothromb Time International Ratio 1.1, Activated Partial Thromboplast Time 35H, Sodium Level 137, Potassium Level 3.8, Chloride Level 105, Carbon Dioxide Level 22, Anion Gap 10, Blood Urea Nitrogen 14, Creatinine 0.8, Estimat Glomerular Filtration Rate > 60, Glucose Level 97, Calcium Level 7.5L, Magnesium Level 1.1L, Total Bilirubin 0.2, Aspartate Amino Transf (AST/SGOT) 17, Alanine Aminotransferase (ALT/SGPT) 14, Alkaline Phosphatase 144H, C-Reactive Protein, Quantitative 12.6H, Pro-B-Type Natriuretic Peptide 400H, Total Protein 5.9L, Albumin 1.0L, Globulin 4.9, Albumin/Globulin Ratio 0.2L Current Medications Medications (Trade) Dose Ordered Sig/Pineda Route PRN Reason Start Time Stop Time Status Last Admin Dose Admin Acetaminophen (Tylenol) 650 mg Q4H PRN ORAL Mild Pain (Pain Scale 1-3) 09/20/19 21:45 10/20/19 21:44 Al Hydroxide/Mg Hydroxide (Mylanta II) 30 ml Q6H PRN ORAL dyspepsia 09/20/19 21:45 10/15/19 21:44 Albuterol Sulfate (Proventil MDI) 2 puff Q4H PRN INH Shortness of Breath 09/20/19 23:00 12/14/19 18:59 Ascorbic Acid (Vitamin C) 500 mg TWICE A DAY ORAL 09/21/19 09:00 10/16/19 17:59 Chlorhexidine Gluconate (Nereida-Hex 2%) 1 applic DAILY@1999 TOPIC 09/21/19 20:00 12/16/19 19:59 Gentamicin Sulfate (Gentamicin vial) 300 mg Q12HR@ INH 09/20/19 22:00 09/25/19 21:59 Heparin Sodium (Porcine) (Heparin 5000 units/ml) 5,000 units EVERY 12 HOURS SUBQ 09/21/19 09:00 10/30/19 08:59 Hydromorphone HCl (Dilaudid) 0.5 mg Q3H PRN IVP severe pain 09/20/19 21:45 09/22/19 21:44 09/21/19 05:48 Linezolid 300 ml @ 300 mls/hr Q12H IVPB 09/21/19 09:00 09/22/19 08:59 Multivitamins (Multivitamins) 1 tab DAILY ORAL 09/21/19 09:00 10/17/19 08:59 Pantoprazole (Protonix) 40 mg DAILY ORAL 09/21/19 09:00 10/15/19 08:59 Sodium Hypochlorite (Dakin's Quarter Strength) 1 applic BID TOPIC 09/21/19 09:00 10/19/19 11:59 Sodium Chloride 1,000 ml @ 100 mls/hr Q10H IVLG 09/20/19 21:15 10/15/19 05:30 09/20/19 22:00 Zinc Sulfate (Zinc Sulfate) 220 mg DAILY ORAL 09/21/19 09:00 10/01/19 08:59 Assessment/Plan Assessment/Plan IMPRESSION: 1. Chronic opioid dependence, possible some withdrawal associated tachycardia. 2. Hyponatremia. 3. Hypokalemia. 4. Severe protein-calorie malnutrition. 5. Mild coagulopathy. 6. Leukocytosis. 7. Anemia, possible sepsis. 8. Multiple antibiotic allergies. 9. sinus tachycardia PLAN care noted replace Mag IV antibiotics per ID drain today monitor need for hydration and transfusion maintain access pain management issues monitor tachycardia and cards follow up impression, plan, and exam edited and reviewed in detail care discussed with Thanh Garcia MD Sep 21, 2019 08:44
[2019-09-21] MEDS: Heparin 5000 units/ml inj SUBQ SCH ×2 (09:00→21:00)
[2019-09-21] MEDS ORDERED: Lidocaine 1% Plain 30 ml INJ PRN (09:00)
[2019-09-21] MEDS: Dakin's 0.125% Soln (Quarter Strength) 16oz TOPIC SCH ×2 (09:00→18:13)
--- NOTE | 2019-09-21 09:15 | Progress Note ---
DATE: 09/19/2019 CARDIOLOGY PROGRESS NOTE SUBJECTIVE: The patient has tachycardia. She still feels palpitations at times, shortness of breath and weakness as well as abdominal pain. CAT scan revealed recurring abscesses. OBJECTIVE: VITAL SIGNS: Blood pressure 106/54, pulse 115, respirations 20. Afebrile. Monitor, sinus tachycardia. LUNGS: Clear. CARDIAC: Regular rhythm, rapid rate. Normal S1, S2. No murmur. ABDOMEN: Slightly distended, but soft. EXTREMITIES: There is trace dependent edema. IMPRESSION: 1. Abdominal abscess recurring. 2. Sepsis 3. Leukocytosis. 4. Dehydration. 5. Hypovolemia 6. Secondary sinus tachycardia. PLAN: 1. Antimicrobials. 2. Hydration with IV fluids. 3. Cardiac monitoring. 4. No role for antiarrhythmics. 5. Drainage procedure anticipated. Karthik Parra M.D. DR: LAVONNE JOB#: [id number] CC:
[2019-09-21] MEDS: Ascorbic Acid 500mg tab ORAL SCH ×2 (09:16→18:13)
[2019-09-21] MEDS: Zinc Sulfate 220mg ORAL SCH (09:16)
--- NOTE | 2019-09-21 09:45 | Progress Note ---
DATE: 09/20/2019 CARDIOLOGY PROGRESS NOTE SUBJECTIVE: The patient feels better today, less palpitations and shortness of breath. Heart rate has slightly improved. PHYSICAL EXAMINATION: VITAL SIGNS: Blood pressure 112/60, pulse 108, respirations 18. Afebrile. LUNGS: Clear. CARDIAC: Regular rhythm, rapid rate. Normal S1, S2. ABDOMEN: Slightly distended, but soft. EXTREMITIES: There is trace dependent edema. IMPRESSION: 1. Abdominal abscess, recurring. 2. Sepsis. 3. Sinus tachycardia. 4. Decubitus. 5. Hypovolemia. 6. Dehydration. PLAN: Discontinue telemetry. Stable for drainage procedure with drain. Continue hydration, antimicrobials, DVT prophylaxis. Karthik Parra M.D. DR: LAVONNE JOB#: [id number] CC:
--- NOTE | 2019-09-21 11:15 | Infectious Diseases Prog Note ---
"Assessment/Plan Assessment/Plan antibiotics : linezolid, inhaled gentamicin A 1. pseudomonas | enterobacter pneumonia. 2. lumbar abscess. 3. Paraplegia. 4. Leukocytosis is improving. P 1. continue linezolid 2. d/c inhaled gentamicin, patient is refusing it 3. will follow up cultures 4. drainage pending Subjective Constitutional: Denies: fever, chills Respiratory: Denies: shortness of breath, dry cough Gastrointestinal/Abdominal: Denies: nausea, vomiting, diarrhea Musculoskeletal: Reports: pain - + back Allergies: Coded Allergies: CEFTRIAXONE (Verified Allergy, Intermediate, SOB, HR-140bpm, face swollen , pt became red, 10/24/15) CODEINE (Verified Allergy, Intermediate, SWELLING, 01/03/11) LATEX (Verified Allergy, Intermediate, SWELLING, 01/03/11) PIPERACILLIN (Verified Allergy, Intermediate, Itching, 08/29/15) 08/29/15 tolerates Ceftaroline TAZOBACTAM (Verified Allergy, Intermediate, Itching, 01/29/15) POLYMYXIN B (Verified Allergy, Mild, Rash, 04/08/16) Suspected allergy reported by VANCOMYCIN (Verified Allergy, Mild, 07/15/14) ASPARAGINASE (Verified Allergy, Unknown, 01/28/14) CEFUROXIME (Unverified Allergy, Unknown, 04/19/16) IRON (Verified Allergy, Unknown, 01/28/14) LATEX, NATURAL RUBBER (Unverified Allergy, Unknown, 06/18/16) Objective Vital Signs Last 24 Hour Vital Signs Date Time Temp Pulse Resp B/P (MAP) Pulse Ox O2 Delivery O2 Flow Rate FiO2 09/21/19 09:00 Room Air 09/21/19 07:44 96 Room Air 09/21/19 04:00 98.1 110 20 123/69 (87) 97 09/21/19 00:00 99.3 109 22 112/65 (81) 97 09/20/19 21:00 Room Air 09/20/19 20:24 97 Room Air 09/20/19 20:00 98.1 102 17 102/65 (77) 97 09/20/19 16:00 98.4 105 18 100/48 (65) 98 09/20/19 12:00 98.8 101 18 101/62 (75) 96 09/20/19 11:54 106 Height (Feet): 5 Height (Inches): 5.00 Weight (Pounds): 201 Laboratory Tests Test 09/21/19 05:30 White Blood Count 7.6 K/UL (4.8-10.8) Red Blood Count 2.94 M/UL (4.20-5.40) L Hemoglobin 8.6 G/DL (12.0-16.0) L Hematocrit 27.1 % (37.0-47.0) L Mean Corpuscular Volume 92 FL (80-99) Mean Corpuscular Hemoglobin 29.2 PG (27.0-31.0) Mean Corpuscular Hemoglobin Concent 31.6 G/DL (32.0-36.0) L Red Cell Distribution Width 14.2 % (11.6-14.8) Platelet Count 405 K/UL (150-450) Mean Platelet Volume 5.3 FL (6.5-10.1) L Neutrophils (%) (Auto) 54.7 % (45.0-75.0) Lymphocytes (%) (Auto) 32.0 % (20.0-45.0) Monocytes (%) (Auto) 7.2 % (1.0-10.0) Eosinophils (%) (Auto) 5.3 % (0.0-3.0) H Basophils (%) (Auto) 0.9 % (0.0-2.0) Erythrocyte Sedimentation Rate 128 MM/HR (0-20) H Prothrombin Time 11.8 SEC (9.30-11.50) H Prothromb Time International Ratio 1.1 (0.9-1.1) Activated Partial Thromboplast Time 35 SEC (23-33) H Sodium Level 137 MMOL/L (136-145) Potassium Level 3.8 MMOL/L (3.5-5.1) Chloride Level 105 MMOL/L (98-107) Carbon Dioxide Level 22 MMOL/L (21-32) Anion Gap 10 mmol/L (5-15) Blood Urea Nitrogen 14 mg/dL (7-18) Creatinine 0.8 MG/DL (0.55-1.30) Estimat Glomerular Filtration Rate > 60 mL/min (>60) Glucose Level 97 MG/DL (74-106) Calcium Level 7.5 MG/DL (8.5-10.1) L Magnesium Level 1.1 MG/DL (1.8-2.4) L Total Bilirubin 0.2 MG/DL (0.2-1.0) Aspartate Amino Transf (AST/SGOT) 17 U/L (15-37) Alanine Aminotransferase (ALT/SGPT) 14 U/L (12-78) Alkaline Phosphatase 144 U/L (46-116) H C-Reactive Protein, Quantitative 12.6 mg/dL (0.00-0.90) H Pro-B-Type Natriuretic Peptide 400 pg/mL (0-125) H Total Protein 5.9 G/DL (6.4-8.2) L Albumin 1.0 G/DL (3.4-5.0) L Globulin 4.9 g/dL Albumin/Globulin Ratio 0.2 (1.0-2.7) L Current Medications Medications (Trade) Dose Ordered Sig/Pineda Route PRN Reason Start Time Stop Time Status Last Admin Dose Admin Acetaminophen (Tylenol) 650 mg Q4H PRN ORAL Mild Pain (Pain Scale 1-3) 09/20/19 21:45 10/20/19 21:44 Al Hydroxide/Mg Hydroxide (Mylanta II) 30 ml Q6H PRN ORAL dyspepsia 09/20/19 21:45 10/15/19 21:44 Albuterol Sulfate (Proventil MDI) 2 puff Q4H PRN INH Shortness of Breath 09/20/19 23:00 12/14/19 18:59 Ascorbic Acid (Vitamin C) 500 mg TWICE A DAY ORAL 09/21/19 09:00 10/16/19 17:59 09/21/19 09:16 Chlorhexidine Gluconate (Nereida-Hex 2%) 1 applic DAILY@1999 TOPIC 09/21/19 20:00 12/16/19 19:59 Gentamicin Sulfate (Gentamicin vial) 300 mg Q12HR@ INH 09/20/19 22:00 09/25/19 21:59 Heparin Sodium (Porcine) (Heparin 5000 units/ml) 5,000 units EVERY 12 HOURS SUBQ 09/21/19 09:00 10/30/19 08:59 Hydromorphone HCl (Dilaudid) 0.5 mg Q3H PRN IVP severe pain 09/20/19 21:45 09/22/19 21:44 09/21/19 09:17 Lidocaine HCl (Xylocaine 1% 30ml) 30 ml ONCE PRN INJ RADIOLOGY PROCEDURE 09/21/19 09:00 09/23/19 08:59 Linezolid 300 ml @ 300 mls/hr Q12H IVPB 09/21/19 09:00 09/22/19 08:59 09/21/19 09:06 Multivitamins (Multivitamins) 1 tab DAILY ORAL 09/21/19 09:00 10/17/19 08:59 09/21/19 09:16 Pantoprazole (Protonix) 40 mg DAILY ORAL 09/21/19 09:00 10/15/19 08:59 09/21/19 09:16 Sodium Hypochlorite (Dakin's Quarter Strength) 1 applic BID TOPIC 09/21/19 09:00 10/19/19 11:59 Sodium Chloride 1,000 ml @ 100 mls/hr Q10H IVLG 09/20/19 21:15 10/15/19 05:30 09/20/19 22:00 Zinc Sulfate (Zinc Sulfate) 220 mg DAILY ORAL 09/21/19 09:00 10/01/19 08:59 09/21/19 09:16 Deng Reyes MD Sep 21, 2019 11:15"
--- NOTE | 2019-09-21 13:18 | General Progress Note ---
Assessment/Plan Assessment/Plan: (1) Paraplegia (2) Spinal cord injury (3) Lumbar spine osteomyelitis discitis (4) Paraspinal abscess s/p drainage (5) Sacral decubitus ulcer (6) Intractable pain We will continue the Dilaudid D/w Dr. Avina and he concurred. Subjective Date patient seen: Sep 21, 2019 Time patient seen: 01:00 - pm Allergies: Coded Allergies: CEFTRIAXONE (Verified Allergy, Intermediate, SOB, HR-140bpm, face swollen , pt became red, 10/24/15) CODEINE (Verified Allergy, Intermediate, SWELLING, 01/03/11) LATEX (Verified Allergy, Intermediate, SWELLING, 01/03/11) PIPERACILLIN (Verified Allergy, Intermediate, Itching, 08/29/15) 08/29/15 tolerates Ceftaroline TAZOBACTAM (Verified Allergy, Intermediate, Itching, 01/29/15) POLYMYXIN B (Verified Allergy, Mild, Rash, 04/08/16) Suspected allergy reported by MD VANCOMYCIN (Verified Allergy, Mild, 07/15/14) ASPARAGINASE (Verified Allergy, Unknown, 01/28/14) CEFUROXIME (Unverified Allergy, Unknown, 04/19/16) IRON (Verified Allergy, Unknown, 01/28/14) LATEX, NATURAL RUBBER (Unverified Allergy, Unknown, 06/18/16) Subjective Constitutional: Reports: weakness HEENT: Reports: no symptoms Cardiovascular: Reports: no symptoms Respiratory: Reports: no symptoms Gastrointestinal/Abdominal: Reports: no symptoms Genitourinary: Reports: no symptoms Neurologic/Psychiatric: Reports: weakness Endocrine: Reports: no symptoms Hematologic/Lymphatic: Reports: no symptoms Subjective Patient reports that his pain has been tolerated on the Dilaudid 4 doses in the last 24hrs. No new complaints at this time. Looking forward to procedure today barring no complications. Objective Last 24 Hour Vital Signs Date Time Temp Pulse Resp B/P (MAP) Pulse Ox O2 Delivery O2 Flow Rate FiO2 09/21/19 12:00 98.4 102 19 119/63 (81) 99 09/21/19 09:00 Room Air 09/21/19 07:44 96 Room Air 09/21/19 04:00 98.1 110 20 123/69 (87) 97 09/21/19 00:00 99.3 109 22 112/65 (81) 97 09/20/19 21:00 Room Air 09/20/19 20:24 97 Room Air 09/20/19 20:00 98.1 102 17 102/65 (77) 97 09/20/19 16:00 98.4 105 18 100/48 (65) 98 Intake and Output 09/20/19 09/21/19 18:59 06:59 Intake Total 1300 ml 800 ml Output Total 300 ml Balance 1300 ml 500 ml IV Total 1300 ml 800 ml Output Stool Total 300 ml Laboratory Tests 09/21/19 05:30: White Blood Count 7.6, Red Blood Count 2.94L, Hemoglobin 8.6L, Hematocrit 27.1L , Mean Corpuscular Volume 92, Mean Corpuscular Hemoglobin 29.2, Mean Corpuscular Hemoglobin Concent 31.6L, Red Cell Distribution Width 14.2, Platelet Count 405, Mean Platelet Volume 5.3L, Neutrophils (%) (Auto) 54.7, Lymphocytes (%) (Auto) 32.0, Monocytes (%) (Auto) 7.2, Eosinophils (%) (Auto) 5.3H, Basophils (%) (Auto) 0.9, Erythrocyte Sedimentation Rate 128H, Prothrombin Time 11.8H, Prothromb Time International Ratio 1.1, Activated Partial Thromboplast Time 35H, Sodium Level 137, Potassium Level 3.8, Chloride Level 105, Carbon Dioxide Level 22, Anion Gap 10, Blood Urea Nitrogen 14, Creatinine 0.8, Estimat Glomerular Filtration Rate > 60, Glucose Level 97, Calcium Level 7.5L, Magnesium Level 1.1L, Total Bilirubin 0.2, Aspartate Amino Transf (AST/SGOT) 17, Alanine Aminotransferase (ALT/SGPT) 14, Alkaline Phosphatase 144H, C-Reactive Protein, Quantitative 12.6H, Pro-B-Type Natriuretic Peptide 400H, Total Protein 5.9L, Albumin 1.0L, Globulin 4.9, Albumin/Globulin Ratio 0.2L Height (Feet): 5 Height (Inches): 5.00 Weight (Pounds): 201 Objective General Appearance: no apparent distress, alert EENT: PERRL/EOMI, normal ENT inspection Neck: non-tender, normal alignment Cardiovascular: normal rate, regular rhythm Respiratory/Chest: decreased breath sounds Abdomen: other - colostomy Extremities: other - wounds noted Edema: mild edema Neurologic: alert, responsive Zedner,Mike N. PA Sep 21, 2019 13:18
--- NOTE | 2019-09-21 13:41 | Pre-Procedure Note/Attestation ---
Pre-Procedure Note/Attestation Complete Prior to Procedure Planned Procedure: bilateral Procedure Narrative: Multiple percutaneous drain placements with CT guidance Indications for Procedure Pre-Operative Diagnosis: Multifocal abscess Attestation I attest that I discussed the nature of the procedure; its benefits; risks and complications; and alternatives (and the risks and benefits of such alternatives ), prior to the procedure, with the patient (or the patient's legal wire rope sales representative). I attest that, if there was a reasonable possibility of needing a blood transfusion, the patient (or the patient's legal wire rope sales representative) was given the [facility] standardized written summary, pursuant to the [place] Blood Safety Act ([place] Health and Safety Code # 1645, as amended). I attest that I re-evaluated the patient just prior to the surgery and that there has been no change in the patient's H&P, except as documented below: Dre Hernandez MD Sep 21, 2019 13:41
--- NOTE | 2019-09-21 13:59 | Moderate Sedation - Procedural ---
Moderate Sedation HPI Chief Complaint Abscesses HPI Multiple recurrent psoas and gluteal/paraspinal abscesses Home Medication Reported Medications Linezolid* (ZYVOX*) 600 Mg Tablet, 600 MG ORAL EVERY 12 HOURS for scheduled for 23 Days, TAB 09/07/19 Albuterol Sulfate* (ALBUTEROL SULFATE MDI*) 8.5 Gm Hfa.aer.ad, 2 PUFF INH Q4H PRN for Constipation, #1 INH 0 Refills 07/10/17 Pantoprazole* (PROTONIX*) 40 Mg Tablet.dr, 40 MG ORAL DAILY, TAB 05/07/16 Discontinued Reported Medications Hydrocodone Bit/Acetaminophen 10-325* (NORCO 10-325*) 1 Each Tablet, 1 TAB ORAL Q6H PRN for For Pain, #10 TAB 0 Refills PRN PAIN 08/17/19 Escitalopram Oxalate* (LEXAPRO*) 10 Mg Tablet, 10 MG ORAL DAILY, TAB 07/10/17 Acetaminophen (Acetaminophen) 650 Mg/20.3 Ml Solution, 650 MG ORAL Q4HR PRN for Fever/Headache/Mild Pain, ML 0 Refills 05/07/16 Zolpidem Tartrate* (AMBIEN*) 5 Mg Tablet, 5 MG ORAL BEDTIME PRN for insomnia, TAB 05/07/16 Magnesium Hydroxide* (MILK OF MAGNESIA*) 400 Mg/5 Ml Oral.susp, 30 ML ORAL HS PRN for Constipation, ML 05/07/16 Al Hydroxide/mg Hydroxide (Mag-Al Plus Suspension) 30 Ml Oral.susp, 30 ML ORAL Q4HR PRN for dyspepsia, ML 05/07/16 Discontinued Scripts Methocarbamol* (ROBAXIN-750*) 750 Mg Tablet, 750 MG PO TID, #21 TAB 0 Refills Prov:SatnamehdorAli DO 12/12/17 Methocarbamol* (ROBAXIN-750*) 750 Mg Tablet, 750 MG PO TID, #21 TAB 0 Refills Prov:SatnamehdorAli DO 12/12/17 Prednisone* (PREDNISONE*) 50 Mg Tablet, 50 MG ORAL DAILY for 3 Days, #3 TAB 0 Refills Prov:Alina Herzog MD 11/21/17 Famotidine* (Pepcid 20mg tablet*) 20 Mg Tablet, 20 MG ORAL TWICE A DAY for 3 Days, #606 TAB 0 Refills Prov:Alina Herzog MD 11/21/17 Diphenhydramine HCl (Benadryl) 25 Mg Capsule, 25 MG PO TID for 3 Days, #9 CAP Prov:Alina Herzog MD 11/21/17 Epinephrine (Epipen 2-Vinicio) 0.3 Mg/0.3 Ml Auto.injct, 0.3 MG IM ONCE for severe allergic reaction, #1 EA Prov:Alina Herzog MD 11/21/17 Cubicin (Cubicin) 500 Mg Vial, 1 MG IV DAILY for 28 Days, VIAL Prov:Jacques Chanel MD 08/15/17 Patient History Allergies: Coded Allergies: CEFTRIAXONE (Verified Allergy, Intermediate, SOB, HR-140bpm, face swollen , pt became red, 10/24/15) CODEINE (Verified Allergy, Intermediate, SWELLING, 01/03/11) LATEX (Verified Allergy, Intermediate, SWELLING, 01/03/11) PIPERACILLIN (Verified Allergy, Intermediate, Itching, 08/29/15) 08/29/15 tolerates Ceftaroline TAZOBACTAM (Verified Allergy, Intermediate, Itching, 01/29/15) POLYMYXIN B (Verified Allergy, Mild, Rash, 04/08/16) Suspected allergy reported by VANCOMYCIN (Verified Allergy, Mild, 07/15/14) ASPARAGINASE (Verified Allergy, Unknown, 01/28/14) CEFUROXIME (Unverified Allergy, Unknown, 04/19/16) IRON (Verified Allergy, Unknown, 01/28/14) LATEX, NATURAL RUBBER (Unverified Allergy, Unknown, 06/18/16) Pre-Procedural Mod Sedation Date: Sep 21, 2019 Pre-Assessment Time: 14:00 Vital Signs WNL Pre-Sedation Assessment: Eval. Immed. Prior to Sed Airway Assessment (Malampati): II Heart: normal Lungs: normal Abdomen: abnormal Extremities: normal Evaluation Hx of untoward rxns to mod sed: No ASA Score: III Informed Consent The nature of the procedure/sedation; its benefits; risks and complications; and alternatives (and the risks and benefits of such alternatives) were discussed with the patient (or their legal loan servicing representative), prior to the procedure. All questions were answered to the patient's (or their legal loan servicing representative's) satisfaction and the patient (or their legal loan servicing representative) gave informed consent to the procedure. I attest that I re-evaluated the patient just prior to the surgery and that there has been no change in the patient's H&P, except as documented below: Post Procedure Assessment Post Procedure TIme: 16:00 Communication: No Apparent Limitation Mental Status: Awake Respiration: Unlabored Skin Condition: WNL Adomen: WNL Nausea: NO Vomiting: NO Dre Hernandez MD Sep 21, 2019 13:59
[2019-09-21] MEDS ORDERED: Midazolam 2mg/2ml Inj IVP SCH (14:15)
[2019-09-21] MEDS ORDERED: fentaNYL 100 mcg/2 mL IV SCH (14:15)
[2019-09-21] MEDS ORDERED: Midazolam 2mg/2ml Inj ONE (14:19)
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
--- NOTE | 2019-09-21 16:07 | Brief Operative Note ---
Immediate Post Operative Note Operative Note Chief Complaint: Abscesses Pre-op Diagnosis: Multifocal abscess Procedure: CT guided placement of three percutaneous drainage catheters into right psoas muscle, posterior paraspinal, and left hip abscesses. Post-op Diagnosis: same as pre-op Findings: consistent w/pre-op dx studies Surgeon: Dre Hernandez MD, MA Anesthesia: moderate sedation Specimen: yes Complications: none Condition: stable Fluids: None Estimated Blood Loss: none Drains: other - 8Fr Cook DM paraspinal, 10Fr Cook DM right psoas anterior approach, 10Fr Cook DM left hip Implant(s) used?: No Dre Hernandez MD Sep 21, 2019 16:07
[2019-09-21] MEDS: Dyna-Hex 2% Top Sol 2oz TOPIC SCH (20:39)
[2019-09-22] VITALS: BP 140/72
[2019-09-22] MEDS: HYDROmorphone 1mg/ml Carpuject IVP PRN ×3 (02:02→12:42)
--- NOTE | 2019-09-22 02:30 | Progress Note ---
DATE: 09/18/2019 CARDIOLOGY PROGRESS NOTE Late Entry SUBJECTIVE: The patient still feels weak, nauseated, still with rapid heart rate, low range blood pressure readings and nausea, but no vomiting. PHYSICAL EXAMINATION: LUNGS: Diminished breath sounds. CARDIAC: Regular rhythm. Rapid rate. Normal S1 and S2. ABDOMEN: Softly distended and mildly tender. EXTREMITIES: No edema. Monitor sinus tachycardia. LABORATORY DATA: White count 10.2 and hemoglobin 9.9. Sodium 135, potassium 4.5, bicarb 23, BUN 12, and creatinine 0.9. IMPRESSION: 1. Sinus tachycardia. 2. Hypovolemia. 3. Dehydration. 4. Hyponatremia. 5. Probable abdominal sepsis. 6. Sacral wound. 7. Severe protein-calorie malnutrition. 8. Physiologic sinus tachycardia. PLAN: 1. Hydration. 2. Nutritional support with protein supplement. 3. Antimicrobial. 4. DVT prophylaxis. 5. ____ pain control. Karthik Parra M.D. DR: FAY JOB#: [id number] CC:
--- NOTE | 2019-09-22 03:15 | Progress Note ---
DATE: 09/21/2019 CARDIOLOGY PROGRESS NOTE SUBJECTIVE: The patient is status post multiple drain placements for abscesses. Pain control is addressed. OBJECTIVE: VITAL SIGNS: Blood pressure 121/67, heart rate 109, respiratory rate 19, temperature 99, and oxygen saturation 96% on 4 liters. LUNGS: Bilateral breath sounds. No wheezing. CARDIAC: Regular rhythm. Rapid rate. Normal S1 and S2. ABDOMEN: Slightly distended. EXTREMITIES: No edema. LABORATORY DATA: Magnesium 1.1 and potassium 3.8. Pro-natriuretic peptide 400. Albumin 1. IMPRESSION: 1. Decubiti with abscesses, now status post drainage catheter. 2. Sinus tachycardia. 3. Severe hypomagnesemia. 4. Severe protein calorie malnutrition. 5. Third spacing with acute diastolic congestive heart failure of mild severity. PLAN: 1. Antimicrobials. 2. Wound care. 3. Nutritional support. 4. IV magnesium replacement ordered. 5. No diuretic therapy for now. 6. DVT prophylaxis. Karthik Parra M.D. DR: FAY JOB#: [id number] CC:
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
[2019-09-22 04:00] VITALS: BP 138/70
[2019-09-22 08:00] VITALS: BP 109/58
[2019-09-22] MEDS: Heparin 5000 units/ml inj SUBQ SCH ×2 (09:00→21:00)
[2019-09-22] MEDS: Dakin's 0.125% Soln (Quarter Strength) 16oz TOPIC SCH ×2 (09:00→17:52)
[2019-09-22] MEDS: Ascorbic Acid 500mg tab ORAL SCH ×2 (09:00→17:52)
[2019-09-22] MEDS: Zinc Sulfate 220mg ORAL SCH (09:00)
[2019-09-22 12:00] VITALS: BP 123/72
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
[2019-09-22] MEDS: Hydromorphone 0.5mg/0.5ml inj IVP PRN ×2 (15:45→19:22)
[2019-09-22 16:00] VITALS: BP 120/69
--- NOTE | 2019-09-22 17:19 | Pulmonology Progress Note ---
Subjective ROS Limited/Unobtainable: No Constitutional: Denies: fever, chills Gastrointestinal/Abdominal: Denies: nausea, vomiting, diarrhea Skin: Reports: other - itching Musculoskeletal: Reports: pain - + back Allergies: Coded Allergies: CEFTRIAXONE (Verified Allergy, Intermediate, SOB, HR-140bpm, face swollen , pt became red, 10/24/15) CODEINE (Verified Allergy, Intermediate, SWELLING, 01/03/11) LATEX (Verified Allergy, Intermediate, SWELLING, 01/03/11) PIPERACILLIN (Verified Allergy, Intermediate, Itching, 08/29/15) 08/29/15 tolerates Ceftaroline TAZOBACTAM (Verified Allergy, Intermediate, Itching, 01/29/15) POLYMYXIN B (Verified Allergy, Mild, Rash, 04/08/16) Suspected allergy reported by VANCOMYCIN (Verified Allergy, Mild, 07/15/14) ASPARAGINASE (Verified Allergy, Unknown, 01/28/14) CEFUROXIME (Unverified Allergy, Unknown, 04/19/16) IRON (Verified Allergy, Unknown, 01/28/14) LATEX, NATURAL RUBBER (Unverified Allergy, Unknown, 06/18/16) Objective Last 24 Hour Vital Signs Date Time Temp Pulse Resp B/P (MAP) Pulse Ox O2 Delivery O2 Flow Rate FiO2 09/22/19 12:00 97.7 96 18 123/72 (89) 98 09/22/19 11:29 95 Room Air 21 09/22/19 09:00 Room Air 09/22/19 08:00 98.2 98 17 109/58 (75) 97 09/22/19 04:00 98.5 107 19 138/70 (92) 98 09/22/19 02:32 98.2 09/22/19 00:00 98.2 105 19 140/72 (94) 97 09/21/19 21:00 Room Air 09/21/19 20:11 96 Nasal Cannula 4.0 36 09/21/19 20:00 99.0 109 19 121/67 (85) 98 Intake and Output 09/21/19 09/22/19 19:00 07:00 Intake Total 100 ml Output Total 200 ml Balance -100 ml IV Total 100 ml Drainage Total 200 ml # Voids 1 1 Microbiology Date/Time Source Procedure Growth Status 09/21/19 15:00 Body Fluid Gram Stain - Final Resulted 09/21/19 15:00 Body Fluid Body Fluid Culture - Preliminary NO GROWTH Resulted 09/21/19 15:00 Body Fluid Anaerobic Culture - Preliminary Resulted 09/21/19 15:00 Body Fluid Gram Stain - Final Resulted 09/21/19 15:00 Body Fluid Body Fluid Culture - Preliminary NO GROWTH Resulted 09/21/19 15:00 Body Fluid Anaerobic Culture - Preliminary Resulted Current Medications Medications (Trade) Dose Ordered Sig/Pineda Route PRN Reason Start Time Stop Time Status Last Admin Dose Admin Acetaminophen (Tylenol) 650 mg Q4H PRN ORAL Mild Pain (Pain Scale 1-3) 09/20/19 21:45 10/20/19 21:44 Al Hydroxide/Mg Hydroxide (Mylanta II) 30 ml Q6H PRN ORAL dyspepsia 09/20/19 21:45 10/15/19 21:44 Albuterol Sulfate (Proventil MDI) 2 puff Q4H PRN INH Shortness of Breath 09/20/19 23:00 12/14/19 18:59 Ascorbic Acid (Vitamin C) 500 mg TWICE A DAY ORAL 09/21/19 09:00 10/16/19 17:59 09/22/19 09:00 Chlorhexidine Gluconate (Nereida-Hex 2%) 1 applic DAILY@2000 TOPIC 09/21/19 20:00 12/16/19 19:59 09/21/19 20:39 Heparin Sodium (Porcine) (Heparin 5000 units/ml) 5,000 units EVERY 12 HOURS SUBQ 09/21/19 09:00 10/30/19 08:59 Hydromorphone HCl (Dilaudid) 0.5 mg Q3H PRN IVP severe pain 09/22/19 13:30 09/22/19 21:44 09/22/19 15:45 Lidocaine HCl (Xylocaine 1% 30ml) 30 ml ONCE PRN INJ RADIOLOGY PROCEDURE 09/21/19 09:00 09/23/19 08:59 Linezolid 300 ml @ 300 mls/hr Q12H IVPB 09/21/19 09:00 09/27/19 08:59 09/22/19 09:32 Multivitamins (Multivitamins) 1 tab DAILY ORAL 09/21/19 09:00 10/17/19 08:59 09/22/19 09:00 Pantoprazole (Protonix) 40 mg DAILY ORAL 09/21/19 09:00 10/15/19 08:59 09/22/19 09:00 Sodium Hypochlorite (Dakin's Quarter Strength) 1 applic BID TOPIC 09/21/19 09:00 10/19/19 11:59 09/22/19 09:00 Sodium Chloride 1,000 ml @ 100 mls/hr Q10H IVLG 09/20/19 21:15 10/15/19 05:30 09/22/19 14:02 Zinc Sulfate (Zinc Sulfate) 220 mg DAILY ORAL 09/21/19 09:00 10/01/19 08:59 09/22/19 09:00 Assessment/Plan Assessment/Plan Pulmonary Progress Note 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 Gastrointestinal/Abdominal: Reports: no symptoms Skin: Reports: other - itching Musculoskeletal: Reports: pain - back decreased Allergies: Coded Allergies: CEFTRIAXONE (Verified Allergy, Intermediate, SOB, HR-140bpm, face swollen , pt became red, 10/24/15) CODEINE (Verified Allergy, Intermediate, SWELLING, 01/03/11) LATEX (Verified Allergy, Intermediate, SWELLING, 01/03/11) PIPERACILLIN (Verified Allergy, Intermediate, Itching, 08/29/15) 08/29/15 tolerates Ceftaroline TAZOBACTAM (Verified Allergy, Intermediate, Itching, 01/29/15) POLYMYXIN B (Verified Allergy, Mild, Rash, 04/08/16) Suspected allergy reported by VANCOMYCIN (Verified Allergy, Mild, 07/15/14) ASPARAGINASE (Verified Allergy, Unknown, 01/28/14) CEFUROXIME (Unverified Allergy, Unknown, 04/19/16) IRON (Verified Allergy, Unknown, 01/28/14) LATEX, NATURAL RUBBER (Unverified Allergy, Unknown, 06/18/16) Subjective care noted sp surgical drainage less pain Objective Vital Signs Noted Objective GENERAL: A well-developed female, currently remains weak HEENT: Otherwise negative. NECK: Supple. No adenopathy. LUNGS: With scattered rhonchi. Moderate air entry. CARDIAC: Tachycardic, otherwise regular without murmurs, rubs, or gallops. ABDOMEN: Soft, obese, and colostomy. EXTREMITIES: No cyanosis, clubbing, or edema. Significant atrophy of the lower limbs. NEUROLOGIC: Otherwise nonfocal with paraparesis. Laboratory Tests 09/21/19 05:30: White Blood Count 7.6, Red Blood Count 2.94L, Hemoglobin 8.6L, Hematocrit 27.1L , Mean Corpuscular Volume 92, Mean Corpuscular Hemoglobin 29.2, Mean Corpuscular Hemoglobin Concent 31.6L, Red Cell Distribution Width 14.2, Platelet Count 405, Mean Platelet Volume 5.3L, Neutrophils (%) (Auto) 54.7, Lymphocytes (%) (Auto) 32.0, Monocytes (%) (Auto) 7.2, Eosinophils (%) (Auto) 5.3H, Basophils (%) (Auto) 0.9, Erythrocyte Sedimentation Rate [Pending], Prothrombin Time 11.8H, Prothromb Time International Ratio 1.1, Activated Partial Thromboplast Time 35H, Sodium Level 137, Potassium Level 3.8, Chloride Level 105, Carbon Dioxide Level 22, Anion Gap 10, Blood Urea Nitrogen 14, Creatinine 0.8, Estimat Glomerular Filtration Rate > 60, Glucose Level 97, Calcium Level 7.5L, Magnesium Level 1.1L, Total Bilirubin 0.2, Aspartate Amino Transf (AST/SGOT) 17, Alanine Aminotransferase (ALT/SGPT) 14, Alkaline Phosphatase 144H, C-Reactive Protein, Quantitative 12.6H, Pro-B-Type Natriuretic Peptide 400H, Total Protein 5.9L, Albumin 1.0L, Globulin 4.9, Albumin/Globulin Ratio 0.2L Current Medications Medications (Trade) Dose Ordered Sig/Pineda Route PRN Reason Start Time Stop Time Status Last Admin Dose Admin Acetaminophen (Tylenol) 650 mg Q4H PRN ORAL Mild Pain (Pain Scale 1-3) 09/20/19 21:45 10/20/19 21:44 Al Hydroxide/Mg Hydroxide (Mylanta II) 30 ml Q6H PRN ORAL dyspepsia 09/20/19 21:45 10/15/19 21:44 Albuterol Sulfate (Proventil MDI) 2 puff Q4H PRN INH Shortness of Breath 09/20/19 23:00 12/14/19 18:59 Ascorbic Acid (Vitamin C) 500 mg TWICE A DAY ORAL 09/21/19 09:00 10/16/19 17:59 Chlorhexidine Gluconate (Nereida-Hex 2%) 1 applic DAILY@1999 TOPIC 09/21/19 20:00 12/16/19 19:59 Gentamicin Sulfate (Gentamicin vial) 300 mg Q12HR@10,22 INH 09/20/19 22:00 09/25/19 21:59 Heparin Sodium (Porcine) (Heparin 5000 units/ml) 5,000 units EVERY 12 HOURS SUBQ 09/21/19 09:00 10/30/19 08:59 Hydromorphone HCl (Dilaudid) 0.5 mg Q3H PRN IVP severe pain 09/20/19 21:45 09/22/19 21:44 09/21/19 05:48 Linezolid 300 ml @ 300 mls/hr Q12H IVPB 09/21/19 09:00 09/22/19 08:59 Multivitamins (Multivitamins) 1 tab DAILY ORAL 09/21/19 09:00 10/17/19 08:59 Pantoprazole (Protonix) 40 mg DAILY ORAL 09/21/19 09:00 10/15/19 08:59 Sodium Hypochlorite (Dakin's Quarter Strength) 1 applic BID TOPIC 09/21/19 09:00 10/19/19 11:59 Sodium Chloride 1,000 ml @ 100 mls/hr Q10H IVLG 09/20/19 21:15 10/15/19 05:30 09/20/19 22:00 Zinc Sulfate (Zinc Sulfate) 220 mg DAILY ORAL 09/21/19 09:00 10/01/19 08:59 Assessment/Plan Assessment/Plan IMPRESSION: 1. Chronic opioid dependence, possible some withdrawal associated tachycardia. 2. Hyponatremia. 3. Hypokalemia. 4. Severe protein-calorie malnutrition. 5. Mild coagulopathy. 6. Leukocytosis. 7. Anemia, possible sepsis. 8. Multiple antibiotic allergies. 9. sinus tachycardia PLAN care noted monitor labs IV antibiotics per ID drain today monitor need for hydration and transfusion maintain access pain management issues monitor tachycardia and cards follow up impression, plan, and exam edited and reviewed in detail care discussed with Karthik Bauer MD Sep 22, 2019 17:19
[2019-09-22 20:00] VITALS: BP 117/60
[2019-09-22] MEDS: Dyna-Hex 2% Top Sol 2oz TOPIC SCH (21:44)
[2019-09-23] VITALS: BP 109/18
[2019-09-23] MEDS: Hydromorphone 0.5mg/0.5ml inj IVP PRN ×7 (00:31→23:25)
--- NOTE | 2019-09-23 03:00 | Progress Note ---
DATE: 09/22/2019 CARDIOLOGY PROGRESS NOTE SUBJECTIVE: The patient has no new complaints. Denies nausea vomiting, or diarrhea. She has some itching and back pain. She is status post drain placement for abscesses of the muscles. OBJECTIVE: VITAL SIGNS: Blood pressure 122/72, pulse 96, respirations 18, and afebrile. LUNGS: Clear. CARDIAC: Regular. Normal S1, S2. ABDOMEN: Soft. EXTREMITIES: No edema. LABORATORY DATA: Culture is notable for Staph aureus. IMPRESSION: 1. Sepsis. 2. Abscesses, recurring. 3. Severe hypomagnesemia. 4. Chronic diastolic congestive heart failure. 5. Severe protein-calorie malnutrition. PLAN: 1. Antimicrobials. 2. Drainage. 3. Protein supplement. 4. DVT prophylaxis. 5. Magnesium replacement is ongoing. Karthik Parra M.D. DR: MAGNO JOB#: [id number] CC:
[2019-09-23 08:00] VITALS: BP 114/67
[2019-09-23] MEDS: Zinc Sulfate 220mg ORAL SCH (08:20)
[2019-09-23] MEDS: Ascorbic Acid 500mg tab ORAL SCH ×2 (08:20→17:18)
[2019-09-23] MEDS: Heparin 5000 units/ml inj SUBQ SCH ×2 (08:21→20:33)
[2019-09-23] MEDS: Dakin's 0.125% Soln (Quarter Strength) 16oz TOPIC SCH ×2 (08:22→18:00)
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
[2019-09-23 12:00] VITALS: BP 102/62
--- NOTE | 2019-09-23 14:08 | General Progress Note ---
Assessment/Plan Assessment/Plan: (1) Paraplegia (2) Spinal cord injury (3) Lumbar spine osteomyelitis discitis (4) Paraspinal abscess s/p CT guided placement of three percutaneous drainage catheters into right psoas muscle, posterior paraspinal, and left hip abscesses (5) Sacral decubitus ulcer (6) Intractable pain We will continue the Dilaudid D/w Dr. Avina and he concurred. Subjective Date patient seen: Sep 23, 2019 Time patient seen: 01:30 - pm Allergies: Coded Allergies: CEFTRIAXONE (Verified Allergy, Intermediate, SOB, HR-140bpm, face swollen , pt became red, 10/24/15) CODEINE (Verified Allergy, Intermediate, SWELLING, 01/03/11) LATEX (Verified Allergy, Intermediate, SWELLING, 01/03/11) PIPERACILLIN (Verified Allergy, Intermediate, Itching, 08/29/15) 08/29/15 tolerates Ceftaroline TAZOBACTAM (Verified Allergy, Intermediate, Itching, 01/29/15) POLYMYXIN B (Verified Allergy, Mild, Rash, 04/08/16) Suspected allergy reported by VANCOMYCIN (Verified Allergy, Mild, 07/15/14) ASPARAGINASE (Verified Allergy, Unknown, 01/28/14) CEFUROXIME (Unverified Allergy, Unknown, 04/19/16) IRON (Verified Allergy, Unknown, 01/28/14) LATEX, NATURAL RUBBER (Unverified Allergy, Unknown, 06/18/16) Subjective Constitutional: Reports: weakness HEENT: Reports: no symptoms Cardiovascular: Reports: no symptoms Respiratory: Reports: no symptoms Gastrointestinal/Abdominal: Reports: no symptoms Genitourinary: Reports: no symptoms Neurologic/Psychiatric: Reports: weakness Endocrine: Reports: no symptoms Hematologic/Lymphatic: Reports: no symptoms Subjective Patient is s/p CT guided placement of three percutaneous drainage catheters into right psoas muscle, posterior paraspinal, and left hip abscesses. Reports severe pain which has been tolerated on the Dilaudid 6 doses in the last 24hrs. No new complaints at this time. Objective Last 24 Hour Vital Signs Date Time Temp Pulse Resp B/P (MAP) Pulse Ox O2 Delivery O2 Flow Rate FiO2 09/23/19 12:00 97.8 101 18 102/62 (75) 98 09/23/19 09:00 Room Air 09/23/19 08:00 97.5 97 18 114/67 (83) 98 09/23/19 00:00 97.8 102 18 109/18 (48) 98 09/22/19 21:00 Room Air 09/22/19 20:00 98.0 101 18 117/60 (79) 97 09/22/19 19:33 95 Room Air 21 09/22/19 16:00 98.6 103 18 120/69 (86) 97 Intake and Output 09/22/19 09/23/19 19:00 07:00 Intake Total 3620 ml 360 ml Output Total 350 ml Balance 3620 ml 10 ml Intake Oral 720 ml 360 ml IV Total 2900 ml Output Stool Total 350 ml Laboratory Tests 09/23/19 11:23: Magnesium Level 1.8 Height (Feet): 5 Height (Inches): 5.00 Weight (Pounds): 201 Objective General Appearance: no apparent distress, alert EENT: PERRL/EOMI, normal ENT inspection Neck: non-tender, normal alignment Cardiovascular: normal rate, regular rhythm Respiratory/Chest: decreased breath sounds Abdomen: other - colostomy Extremities: other - wounds noted Edema: mild edema Neurologic: alert, responsive Mike Ellis Sep 23, 2019 14:08
--- NOTE | 2019-09-23 14:35 | Infectious Diseases Prog Note ---
Assessment/Plan Assessment/Plan A 1. pseudomonas & Enterobacter pneumonia. 2. Psoas, hip & lumbar abscess. 3. Paraplegia. 4. Leukocytosis is resolved 5. Anemia P 1. continue linezolid 2. will follow up cultures 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 Respiratory: Reports: no symptoms Gastrointestinal/Abdominal: Reports: no symptoms Musculoskeletal: Reports: pain, other - back pain Allergies: Coded Allergies: CEFTRIAXONE (Verified Allergy, Intermediate, SOB, HR-140bpm, face swollen , pt became red, 10/24/15) CODEINE (Verified Allergy, Intermediate, SWELLING, 01/03/11) LATEX (Verified Allergy, Intermediate, SWELLING, 01/03/11) PIPERACILLIN (Verified Allergy, Intermediate, Itching, 08/29/15) 08/29/15 tolerates Ceftaroline TAZOBACTAM (Verified Allergy, Intermediate, Itching, 01/29/15) POLYMYXIN B (Verified Allergy, Mild, Rash, 04/08/16) Suspected allergy reported by VANCOMYCIN (Verified Allergy, Mild, 07/15/14) ASPARAGINASE (Verified Allergy, Unknown, 01/28/14) CEFUROXIME (Unverified Allergy, Unknown, 04/19/16) IRON (Verified Allergy, Unknown, 01/28/14) LATEX, NATURAL RUBBER (Unverified Allergy, Unknown, 06/18/16) Objective Vital Signs Last 24 Hour Vital Signs Date Time Temp Pulse Resp B/P (MAP) Pulse Ox O2 Delivery O2 Flow Rate FiO2 09/23/19 12:00 97.8 101 18 102/62 (75) 98 09/23/19 09:00 Room Air 09/23/19 08:00 97.5 97 18 114/67 (83) 98 09/23/19 00:00 97.8 102 18 109/18 (48) 98 09/22/19 21:00 Room Air 09/22/19 20:00 98.0 101 18 117/60 (79) 97 09/22/19 19:33 95 Room Air 21 09/22/19 16:00 98.6 103 18 120/69 (86) 97 Height (Feet): 5 Height (Inches): 5.00 Weight (Pounds): 201 General Appearance: no acute distress HEENT: mucous membranes moist Respiratory/Chest: lungs clear Cardiovascular: tachycardia, other - PICC line Abdomen: soft, non tender, other - multiple drains Extremities: other - edema Skin: ulcers Neurologic/Psychiatric: alert, oriented x 3, responsive, other - paraplegic Microbiology Date/Time Source Procedure Growth Status 09/21/19 15:00 Body Fluid Gram Stain - Final Resulted 09/21/19 15:00 Body Fluid Culture - Preliminary Staphylococcus Aureus Resulted 09/21/19 15:00 Body Fluid Anaerobic Culture - Preliminary NO ANAEROBES ISOLATED Resulted 09/21/19 15:00 Body Fluid Gram Stain - Final Resulted 09/21/19 15:00 Body Fluid Culture - Preliminary Staphylococcus Aureus Resulted 09/21/19 15:00 Body Fluid Anaerobic Culture - Preliminary NO ANAEROBES ISOLATED Resulted Laboratory Tests Test 09/23/19 11:23 Magnesium Level 1.8 MG/DL (1.8-2.4) Current Medications Medications (Trade) Dose Ordered Sig/Pineda Route PRN Reason Start Time Stop Time Status Last Admin Dose Admin Acetaminophen (Tylenol) 650 mg Q4H PRN ORAL Mild Pain (Pain Scale 1-3) 09/20/19 21:45 10/20/19 21:44 Al Hydroxide/Mg Hydroxide (Mylanta II) 30 ml Q6H PRN ORAL dyspepsia 09/20/19 21:45 10/15/19 21:44 Albuterol Sulfate (Proventil MDI) 2 puff Q4H PRN INH Shortness of Breath 09/20/19 23:00 12/14/19 18:59 Ascorbic Acid (Vitamin C) 500 mg TWICE A DAY ORAL 09/21/19 09:00 10/16/19 17:59 09/23/19 08:20 Chlorhexidine Gluconate (Nereida-Hex 2%) 1 applic DAILY@2000 TOPIC 09/21/19 20:00 12/16/19 19:59 09/22/19 21:44 Heparin Sodium (Porcine) (Heparin 5000 units/ml) 5,000 units EVERY 12 HOURS SUBQ 09/21/19 09:00 10/30/19 08:59 Hydromorphone HCl (Dilaudid) 0.5 mg Q3HR PRN IVP Severe Pain (Pain Scale 7-10) 09/23/19 00:30 09/30/19 00:29 09/23/19 13:11 Linezolid 300 ml @ 300 mls/hr Q12H IVPB 09/21/19 09:00 09/27/19 08:59 09/23/19 08:21 Multivitamins (Multivitamins) 1 tab DAILY ORAL 09/21/19 09:00 10/17/19 08:59 09/23/19 08:20 Pantoprazole (Protonix) 40 mg DAILY ORAL 09/21/19 09:00 10/15/19 08:59 09/23/19 08:20 Sodium Hypochlorite (Dakin's Quarter Strength) 1 applic BID TOPIC 09/21/19 09:00 10/19/19 11:59 09/23/19 08:22 Sodium Chloride 1,000 ml @ 100 mls/hr Q10H IVLG 09/20/19 21:15 10/15/19 05:30 09/23/19 09:15 Zinc Sulfate (Zinc Sulfate) 220 mg DAILY ORAL 09/21/19 09:00 10/01/19 08:59 09/23/19 08:20 Vaughn Juárez MD Sep 23, 2019 14:35
[2019-09-23 16:00] VITALS: BP 124/60
--- NOTE | 2019-09-23 17:19 | Pulmonology Progress Note ---
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 Gastrointestinal/Abdominal: Reports: no symptoms Skin: Reports: other - itching Musculoskeletal: Reports: pain, other - back pain Allergies: Coded Allergies: CEFTRIAXONE (Verified Allergy, Intermediate, SOB, HR-140bpm, face swollen , pt became red, 10/24/15) CODEINE (Verified Allergy, Intermediate, SWELLING, 01/03/11) LATEX (Verified Allergy, Intermediate, SWELLING, 01/03/11) PIPERACILLIN (Verified Allergy, Intermediate, Itching, 08/29/15) 08/29/15 tolerates Ceftaroline TAZOBACTAM (Verified Allergy, Intermediate, Itching, 01/29/15) POLYMYXIN B (Verified Allergy, Mild, Rash, 04/08/16) Suspected allergy reported by VANCOMYCIN (Verified Allergy, Mild, 07/15/14) ASPARAGINASE (Verified Allergy, Unknown, 01/28/14) CEFUROXIME (Unverified Allergy, Unknown, 04/19/16) IRON (Verified Allergy, Unknown, 01/28/14) LATEX, NATURAL RUBBER (Unverified Allergy, Unknown, 06/18/16) Objective Last 24 Hour Vital Signs Date Time Temp Pulse Resp B/P (MAP) Pulse Ox O2 Delivery O2 Flow Rate FiO2 09/23/19 16:00 98.5 99 18 124/60 (81) 98 09/23/19 12:00 97.8 101 18 102/62 (75) 98 09/23/19 09:00 Room Air 09/23/19 08:00 97.5 97 18 114/67 (83) 98 09/23/19 00:00 97.8 102 18 109/18 (48) 98 09/22/19 21:00 Room Air 09/22/19 20:00 98.0 101 18 117/60 (79) 97 09/22/19 19:33 95 Room Air 21 Intake and Output 09/22/19 09/23/19 19:00 07:00 Intake Total 3620 ml 360 ml Output Total 350 ml Balance 3620 ml 10 ml Intake Oral 720 ml 360 ml IV Total 2900 ml Output Stool Total 350 ml Microbiology Date/Time Source Procedure Growth Status 09/21/19 15:00 Body Fluid Gram Stain - Final Resulted 09/21/19 15:00 Body Fluid Culture - Preliminary Staphylococcus Aureus Resulted 09/21/19 15:00 Body Fluid Anaerobic Culture - Preliminary NO ANAEROBES ISOLATED Resulted 09/21/19 15:00 Body Fluid Gram Stain - Final Resulted 09/21/19 15:00 Body Fluid Culture - Preliminary Staphylococcus Aureus Resulted 09/21/19 15:00 Body Fluid Anaerobic Culture - Preliminary NO ANAEROBES ISOLATED Resulted Laboratory Tests 09/23/19 11:23: Magnesium Level 1.8 Current Medications Medications (Trade) Dose Ordered Sig/Pineda Route PRN Reason Start Time Stop Time Status Last Admin Dose Admin Acetaminophen (Tylenol) 650 mg Q4H PRN ORAL Mild Pain (Pain Scale 1-3) 09/20/19 21:45 10/20/19 21:44 Al Hydroxide/Mg Hydroxide (Mylanta II) 30 ml Q6H PRN ORAL dyspepsia 09/20/19 21:45 10/15/19 21:44 Albuterol Sulfate (Proventil MDI) 2 puff Q4H PRN INH Shortness of Breath 09/20/19 23:00 12/14/19 18:59 Ascorbic Acid (Vitamin C) 500 mg TWICE A DAY ORAL 09/21/19 09:00 10/16/19 17:59 09/23/19 08:20 Chlorhexidine Gluconate (Nereida-Hex 2%) 1 applic DAILY@2000 TOPIC 09/21/19 20:00 12/16/19 19:59 09/22/19 21:44 Heparin Sodium (Porcine) (Heparin 5000 units/ml) 5,000 units EVERY 12 HOURS SUBQ 09/21/19 09:00 10/30/19 08:59 Hydromorphone HCl (Dilaudid) 0.5 mg Q3HR PRN IVP Severe Pain (Pain Scale 7-10) 09/23/19 00:30 09/30/19 00:29 09/23/19 13:11 Linezolid 300 ml @ 300 mls/hr Q12H IVPB 09/21/19 09:00 09/27/19 08:59 09/23/19 08:21 Multivitamins (Multivitamins) 1 tab DAILY ORAL 09/21/19 09:00 10/17/19 08:59 09/23/19 08:20 Pantoprazole (Protonix) 40 mg DAILY ORAL 09/21/19 09:00 10/15/19 08:59 09/23/19 08:20 Sodium Hypochlorite (Dakin's Quarter Strength) 1 applic BID TOPIC 09/21/19 09:00 10/19/19 11:59 09/23/19 08:22 Sodium Chloride 1,000 ml @ 100 mls/hr Q10H IVLG 09/20/19 21:15 10/15/19 05:30 09/23/19 09:15 Zinc Sulfate (Zinc Sulfate) 220 mg DAILY ORAL 09/21/19 09:00 10/01/19 08:59 09/23/19 08:20 Assessment/Plan Assessment/Plan Pulmonary Progress Note 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 Gastrointestinal/Abdominal: Reports: no symptoms Skin: Reports: other - itching Musculoskeletal: Reports: pain - back decreased Allergies: Coded Allergies: CEFTRIAXONE (Verified Allergy, Intermediate, SOB, HR-140bpm, face swollen , pt became red, 10/24/15) CODEINE (Verified Allergy, Intermediate, SWELLING, 01/03/11) LATEX (Verified Allergy, Intermediate, SWELLING, 01/03/11) PIPERACILLIN (Verified Allergy, Intermediate, Itching, 08/29/15) 08/29/15 tolerates Ceftaroline TAZOBACTAM (Verified Allergy, Intermediate, Itching, 01/29/15) POLYMYXIN B (Verified Allergy, Mild, Rash, 04/08/16) Suspected allergy reported by VANCOMYCIN (Verified Allergy, Mild, 07/15/14) ASPARAGINASE (Verified Allergy, Unknown, 01/28/14) CEFUROXIME (Unverified Allergy, Unknown, 04/19/16) IRON (Verified Allergy, Unknown, 01/28/14) LATEX, NATURAL RUBBER (Unverified Allergy, Unknown, 06/18/16) Subjective care noted sp surgical drainage denies pain Objective Vital Signs Noted Objective GENERAL: A well-developed female, currently remains weak HEENT: Otherwise negative. NECK: Supple. No adenopathy. LUNGS: With scattered rhonchi. Moderate air entry. CARDIAC: Tachycardic, otherwise regular without murmurs, rubs, or gallops. ABDOMEN: Soft, obese, and colostomy. EXTREMITIES: No cyanosis, clubbing, or edema. Significant atrophy of the lower limbs. NEUROLOGIC: Otherwise nonfocal with paraparesis. Laboratory Tests noted Assessment/Plan IMPRESSION: 1. Chronic opioid dependence, possible some withdrawal associated tachycardia. 2. Hyponatremia. 3. Hypokalemia. 4. Severe protein-calorie malnutrition. 5. Mild coagulopathy. 6. Leukocytosis. 7. Anemia, possible sepsis. 8. Multiple antibiotic allergies. 9. sinus tachycardia PLAN care noted monitor labs IV antibiotics per ID drain today monitor need for hydration and transfusion maintain access pain management issues monitor tachycardia and cards follow up impression, plan, and exam edited and reviewed in detail care discussed with Karthik Bauer MD Sep 23, 2019 17:19
[2019-09-23 20:00] VITALS: BP 115/58
[2019-09-23] MEDS: Dyna-Hex 2% Top Sol 2oz TOPIC SCH (20:32)
--- NOTE | 2019-09-23 21:15 | Progress Note ---
DATE: 09/15/2019 CARDIOLOGY PROGRESS NOTE Late entry for 09/15/2019. SUBJECTIVE: Patient was seen and evaluated. She is in significant distress. She has pain. She has palpitations and shortness of breath. She has been afebrile. PHYSICAL EXAMINATION: VITAL SIGNS: Blood pressure 98/56, heart rate 119, respiratory rate 17. LUNGS: Diminished breath sounds. Colostomy site clean. CARDIAC: Regular rhythm. Rapid rate. Normal S1, S2. Monitor, sinus tachycardia. EXTREMITIES: Trace edema. LABORATORY DATA: White count is 15.6, hemoglobin 8. Potassium 3, BUN 11, creatinine 1.1, sodium 131. IMPRESSION: 1. Probable sepsis. 2. Sinus tachycardia. 3. Hypokalemia. 4. Hypochloremia. 5. Hyponatremia. 6. Severe protein-calorie malnutrition. 7. Sepsis. PLAN: 1. Antimicrobials. 2. Saline hydration. 3. Replace potassium. 4. Recheck magnesium. 5. DVT prophylaxis. 6. Nutritional support. 7. Symptom-guided pain control. Karthik Parra M.D. DR: RAHAT JOB#: [id number] CC:
--- NOTE | 2019-09-23 22:15 | Progress Note ---
DATE: 09/16/2019 CARDIOLOGY PROGRESS NOTE SUBJECTIVE: The patient still has pain and weakness, palpitations noted. Monitored sinus and sinus tachycardia. No fever spikes. PHYSICAL EXAMINATION: VITAL SIGNS: Blood pressure 110/73, pulse 82 to 100, respirations 18, afebrile, oxygen saturation on room air 95% to 100%. HEENT: Dry mucous membranes. LUNGS: Diminished breath sounds. CARDIAC: Regular rhythm. Rapid rate. Normal S1, S2. ABDOMEN: Soft, slightly distended. Colostomy site with no bleeding. EXTREMITIES: Trace dependent edema. LABORATORY DATA: White count is 13.6, hemoglobin 7.6. IMPRESSION: 1. Anemia. 2. Sepsis. 3. Sinus tachycardia. 4. Hyponatremia. 5. Hypochloremia. 6. Hypovolemia. 7. Hypokalemia. 8. Severe protein-calorie malnutrition. PLAN: Antimicrobials, skin care, wound care. Saline hydration. Potassium repletion. Recheck magnesium. Protein supplement. Packed red blood cell transfusion. Iron replacement by IV route to follow. Karthik Parra M.D. DR: LISBETH JOB#: [id number] CC:
--- NOTE | 2019-09-23 22:15 | Progress Note ---
DATE: 09/17/2019 CARDIOLOGY PROGRESS NOTE SUBJECTIVE: The patient is status post PICC line exchange without complication. She continues to complain of weakness and pain. No shortness of breath. Still palpitations. OBJECTIVE: VITAL SIGNS: Blood pressure 98/55, pulse 133, respirations 15, afebrile. LUNGS: Diminished breath sounds. No rales. CARDIAC: Regular rhythm. Rapid rate. Normal S1, S2. ABDOMEN: Soft. Colostomy in place. EXTREMITIES: Trace edema. IMPRESSION: 1. Sepsis. 2. Multiple electrolyte abnormalities. 3. Hypovolemia. 4. Colostomy. 5. Sinus tachycardia. 6. Metabolic encephalopathy. PLAN: 1. Imaging studies per surgeon. 2. Antimicrobials per Infectious Disease. 3. Saline hydration. 4. Continue intravenous access with PICC line. 5. Follow up lab studies ordered. 6. No role for antiarrhythmics at this time. Karthik Parra M.D. DR: LISBETH JOB#: [id number] CC:
--- NOTE | 2019-09-23 22:15 | Progress Note ---
DATE: 09/23/2019 CARDIOLOGY PROGRESS NOTE SUBJECTIVE: The patient has back pain. No chest pain. Some itching. No shortness of breath. Monitored rhythm, sinus. Rare episodes of sinus tachycardia. Now, blood pressure parameters have stabilized. OBJECTIVE: VITAL SIGNS: Blood pressure 102 to 124 over 60 to 70, heart rate 97 to 102, respiratory rate 18. The patient is afebrile. Oxygen saturation is 98% on room air. SKIN: PICC line site clean and dry. Colostomy site with no blood. LUNGS: With clear breath sounds. CARDIAC: Regular rhythm and rate. Normal S1, S2 with no new murmur. ABDOMEN: Soft. EXTREMITIES: There is trace dependent edema. LABORATORY DATA: Magnesium is improved from 1.1 to 1.8. IMPRESSION: 1. Pseudomonas and Enterobacter pneumonia. 2. Multiple abscesses. 3. Paraplegia. 4. Colostomy. 5. Secondary sinus tachycardia. 6. Corrected electrolyte abnormalities. 7. Corrected hypomagnesemia. 8. Improved anemia following transfusion. PLAN: 1. Continue iron replacement, antimicrobials, skin care, and protein supplement. 2. Pain control as needed. 3. Recheck laboratory studies. 4. Central venous access. Karthik Parra M.D. DR: LISBETH JOB#: [id number] CC:
[2019-09-24] VITALS: BP 120/56
[2019-09-24 04:00] VITALS: BP 127/69
[2019-09-24] MEDS: Hydromorphone 0.5mg/0.5ml inj IVP PRN ×5 (05:54→20:57)
[2019-09-24 08:00] VITALS: BP 115/61
[2019-09-24] MEDS: Ascorbic Acid 500mg tab ORAL SCH ×2 (08:10→17:31)
[2019-09-24] MEDS: Zinc Sulfate 220mg ORAL SCH (08:10)
[2019-09-24] MEDS: Heparin 5000 units/ml inj SUBQ SCH ×2 (08:18→20:58)
[2019-09-24] MEDS: Dakin's 0.125% Soln (Quarter Strength) 16oz TOPIC SCH ×2 (08:19→17:32)
--- NOTE | 2019-09-24 08:33 | Pulmonology Progress Note ---
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 Gastrointestinal/Abdominal: Reports: no symptoms Skin: Reports: other - itching Musculoskeletal: Reports: pain, other - back pain Allergies: Coded Allergies: CEFTRIAXONE (Verified Allergy, Intermediate, SOB, HR-140bpm, face swollen , pt became red, 10/24/15) CODEINE (Verified Allergy, Intermediate, SWELLING, 01/03/11) LATEX (Verified Allergy, Intermediate, SWELLING, 01/03/11) PIPERACILLIN (Verified Allergy, Intermediate, Itching, 08/29/15) 08/29/15 tolerates Ceftaroline TAZOBACTAM (Verified Allergy, Intermediate, Itching, 01/29/15) POLYMYXIN B (Verified Allergy, Mild, Rash, 04/08/16) Suspected allergy reported by VANCOMYCIN (Verified Allergy, Mild, 07/15/14) ASPARAGINASE (Verified Allergy, Unknown, 01/28/14) CEFUROXIME (Unverified Allergy, Unknown, 04/19/16) IRON (Verified Allergy, Unknown, 01/28/14) LATEX, NATURAL RUBBER (Unverified Allergy, Unknown, 06/18/16) Subjective care noted CT noted- and 3 drains placed appears improved Objective Last 24 Hour Vital Signs Date Time Temp Pulse Resp B/P (MAP) Pulse Ox O2 Delivery O2 Flow Rate FiO2 09/24/19 04:00 98.4 100 18 127/69 (88) 97 09/24/19 00:00 99.0 104 18 120/56 (77) 97 09/23/19 21:00 Room Air 09/23/19 20:00 96 Room Air 21 09/23/19 20:00 99.2 103 18 115/58 (77) 97 09/23/19 16:00 98.5 99 18 124/60 (81) 98 09/23/19 12:00 97.8 101 18 102/62 (75) 98 09/23/19 09:00 Room Air Intake and Output 09/23/19 09/24/19 19:00 07:00 Intake Total 720 ml 1000 ml Output Total 1000 ml Balance -280 ml 1000 ml Intake Oral 720 ml IV Total 1000 ml Output Urine Total 1000 ml Objective GENERAL: A well-developed female, weak overall HEENT: Otherwise negative. NECK: Supple. No adenopathy. LUNGS: no rhonchi or wheeze Moderate air entry. CARDIAC: RRR, otherwise regular without murmurs, rubs, or gallops. ABDOMEN: Soft, obese, and colostomy. EXTREMITIES: No cyanosis, clubbing, or edema. Significant atrophy of the lower limbs. NEUROLOGIC: Otherwise nonfocal with paraparesis. Microbiology Date/Time Source Procedure Growth Status 09/21/19 15:00 Body Fluid Gram Stain - Final Resulted 09/21/19 15:00 Body Fluid Culture - Preliminary Staphylococcus Aureus Resulted 09/21/19 15:00 Body Fluid Anaerobic Culture - Preliminary NO ANAEROBES ISOLATED Resulted 09/21/19 15:00 Body Fluid Gram Stain - Final Resulted 09/21/19 15:00 Body Fluid Culture - Preliminary Staphylococcus Aureus Resulted 09/21/19 15:00 Body Fluid Anaerobic Culture - Preliminary NO ANAEROBES ISOLATED Resulted Laboratory Tests 09/23/19 11:23: Magnesium Level 1.8 Current Medications Medications (Trade) Dose Ordered Sig/Pineda Route PRN Reason Start Time Stop Time Status Last Admin Dose Admin Acetaminophen (Tylenol) 650 mg Q4H PRN ORAL Mild Pain (Pain Scale 1-3) 09/20/19 21:45 10/20/19 21:44 Al Hydroxide/Mg Hydroxide (Mylanta II) 30 ml Q6H PRN ORAL dyspepsia 09/20/19 21:45 10/15/19 21:44 Albuterol Sulfate (Proventil MDI) 2 puff Q4H PRN INH Shortness of Breath 09/20/19 23:00 12/14/19 18:59 Ascorbic Acid (Vitamin C) 500 mg TWICE A DAY ORAL 09/21/19 09:00 10/16/19 17:59 09/24/19 08:10 Chlorhexidine Gluconate (Nereida-Hex 2%) 1 applic DAILY@2000 TOPIC 09/21/19 20:00 12/16/19 19:59 09/23/19 20:32 Heparin Sodium (Porcine) (Heparin 5000 units/ml) 5,000 units EVERY 12 HOURS SUBQ 09/21/19 09:00 10/30/19 08:59 09/23/19 20:33 Hydromorphone HCl (Dilaudid) 0.5 mg Q3HR PRN IVP Severe Pain (Pain Scale 7-10) 09/23/19 00:30 09/30/19 00:29 09/24/19 05:54 Linezolid 300 ml @ 300 mls/hr Q12H IVPB 09/21/19 09:00 09/27/19 08:59 09/24/19 08:11 Multivitamins (Multivitamins) 1 tab DAILY ORAL 09/21/19 09:00 10/17/19 08:59 09/24/19 08:10 Pantoprazole (Protonix) 40 mg DAILY ORAL 09/21/19 09:00 10/15/19 08:59 09/24/19 08:10 Sodium Hypochlorite (Dakin's Quarter Strength) 1 applic BID TOPIC 09/21/19 09:00 10/19/19 11:59 09/24/19 08:19 Sodium Chloride 1,000 ml @ 100 mls/hr Q10H IVLG 09/20/19 21:15 10/15/19 05:30 09/24/19 05:15 Zinc Sulfate (Zinc Sulfate) 220 mg DAILY ORAL 09/21/19 09:00 10/01/19 08:59 09/24/19 08:10 Assessment/Plan Assessment/Plan IMPRESSION: 1. Chronic opioid dependence, possible some withdrawal associated tachycardia. 2. Hyponatremia. 3. Hypokalemia. 4. Severe protein-calorie malnutrition. 5. Mild coagulopathy. 6. Leukocytosis. 7. Anemia, possible sepsis. 8. Multiple antibiotic allergies. 9. sinus tachycardia PLAN care noted s/p drain placement IV antibiotics per ID may need PRBC soon maintain access pain management as is ID clearance noted impression, plan, and exam edited and reviewed in detail care discussed with Thanh Garcia MD Sep 24, 2019 08:33
--- NOTE | 2019-09-24 08:35 | General Progress Note ---
Assessment/Plan Assessment/Plan: (1) Paraplegia (2) Spinal cord injury (3) Lumbar spine osteomyelitis discitis (4) Paraspinal abscess s/p CT guided placement of three percutaneous drainage catheters into right psoas muscle, posterior paraspinal, and left hip abscesses (5) Sacral decubitus ulcer (6) Intractable pain We will continue the Dilaudid D/w Dr. Avina and he concurred. Subjective Date patient seen: Sep 24, 2019 Time patient seen: 08:00 - am Allergies: Coded Allergies: CEFTRIAXONE (Verified Allergy, Intermediate, SOB, HR-140bpm, face swollen , pt became red, 10/24/15) CODEINE (Verified Allergy, Intermediate, SWELLING, 01/03/11) LATEX (Verified Allergy, Intermediate, SWELLING, 01/03/11) PIPERACILLIN (Verified Allergy, Intermediate, Itching, 08/29/15) 08/29/15 tolerates Ceftaroline TAZOBACTAM (Verified Allergy, Intermediate, Itching, 01/29/15) POLYMYXIN B (Verified Allergy, Mild, Rash, 04/08/16) Suspected allergy reported by MD VANCOMYCIN (Verified Allergy, Mild, 07/15/14) ASPARAGINASE (Verified Allergy, Unknown, 01/28/14) CEFUROXIME (Unverified Allergy, Unknown, 04/19/16) IRON (Verified Allergy, Unknown, 01/28/14) LATEX, NATURAL RUBBER (Unverified Allergy, Unknown, 06/18/16) Subjective Constitutional: Reports: weakness HEENT: Reports: no symptoms Cardiovascular: Reports: no symptoms Respiratory: Reports: no symptoms Gastrointestinal/Abdominal: Reports: no symptoms Genitourinary: Reports: no symptoms Neurologic/Psychiatric: Reports: weakness Endocrine: Reports: no symptoms Hematologic/Lymphatic: Reports: no symptoms Subjective Patient is continues to c/o pain which has been tolerated on the Dilaudid using 6 doses in the last 24hrs. No new complaints at this time. Objective Last 24 Hour Vital Signs Date Time Temp Pulse Resp B/P (MAP) Pulse Ox O2 Delivery O2 Flow Rate FiO2 09/24/19 04:00 98.4 100 18 127/69 (88) 97 09/24/19 00:00 99.0 104 18 120/56 (77) 97 09/23/19 21:00 Room Air 09/23/19 20:00 96 Room Air 21 09/23/19 20:00 99.2 103 18 115/58 (77) 97 09/23/19 16:00 98.5 99 18 124/60 (81) 98 09/23/19 12:00 97.8 101 18 102/62 (75) 98 09/23/19 09:00 Room Air Intake and Output 09/23/19 09/24/19 19:00 07:00 Intake Total 720 ml 1000 ml Output Total 1000 ml Balance -280 ml 1000 ml Intake Oral 720 ml IV Total 1000 ml Output Urine Total 1000 ml Laboratory Tests 09/23/19 11:23: Magnesium Level 1.8 Height (Feet): 5 Height (Inches): 5.00 Weight (Pounds): 201 Objective General Appearance: no apparent distress, alert EENT: PERRL/EOMI, normal ENT inspection Neck: non-tender, normal alignment Cardiovascular: normal rate, regular rhythm Respiratory/Chest: decreased breath sounds Abdomen: other - colostomy Extremities: other - wounds noted Edema: mild edema Neurologic: alert, responsive Mike Ellis Sep 24, 2019 08:35
[2019-09-24 08:56] LABS: BASOPHILS % (AUTO) 0.8 % (0.0-2.0); EOSINOPHILS % (AUTO) 6.3 % (0.0-3.0); HEMATOCRIT 28.9 % (37.0-47.0); HEMOGLOBIN 8.8 G/DL (12.0-16.0); LYMPHOCYTES % (AUTO) 33.5 % (20.0-45.0); MEAN CORPUSCULAR VOLUME 96 FL (80-99); MONOCYTES % (AUTO) 3.8 % (1.0-10.0); NEUTROPHILS % (AUTO) 55.6 % (45.0-75.0); PLATELET COUNT 382 K/UL (150-450); RED BLOOD COUNT 3.03 M/UL (4.20-5.40); RED CELL DISTRIBUTION WIDTH 16.5 % (11.6-14.8); WHITE BLOOD COUNT 6.9 K/UL (4.8-10.8)
[2019-09-24 09:19] LABS: ALANINE AMINOTRANSFERASE 18 U/L (12-78); ALBUMIN 1.1 G/DL (3.4-5.0); ALBUMIN/GLOBULIN RATIO 0.2 (1.0-2.7); ALKALINE PHOSPHATASE 134 U/L (46-116); ANION GAP 11 mmol/L (5-15); ASPARTATE AMINO TRANSFERASE 12 U/L (15-37); BILIRUBIN,TOTAL 0.1 MG/DL (0.2-1.0); BLOOD UREA NITROGEN 11 mg/dL (7-18); CALCIUM 7.8 MG/DL (8.5-10.1); CARBON DIOXIDE 20 MMOL/L (21-32); CHLORIDE 108 MMOL/L (98-107); CREATININE 0.7 MG/DL (0.55-1.30); PHOSPHORUS 4.7 MG/DL (2.5-4.9); POTASSIUM 4.2 MMOL/L (3.5-5.1); SODIUM 139 MMOL/L (136-145)
--- NOTE | 2019-09-24 11:17 | Infectious Diseases Prog Note ---
"Assessment/Plan Assessment/Plan antibiotics : linezolid A 1. pseudomonas | enterobacter pneumonia. 2. lumbar abscess, hip abscess s/p drainage with staph aureus 3. Paraplegia. 4. Leukocytosis is improving. P 1. continue linezolid 2. will follow up cultures Subjective Constitutional: Denies: fever, chills Respiratory: Denies: shortness of breath, dry cough Gastrointestinal/Abdominal: Denies: nausea, vomiting, diarrhea Musculoskeletal: Reports: pain - decreased Allergies: Coded Allergies: CEFTRIAXONE (Verified Allergy, Intermediate, SOB, HR-140bpm, face swollen , pt became red, 10/24/15) CODEINE (Verified Allergy, Intermediate, SWELLING, 01/03/11) LATEX (Verified Allergy, Intermediate, SWELLING, 01/03/11) PIPERACILLIN (Verified Allergy, Intermediate, Itching, 08/29/15) 08/29/15 tolerates Ceftaroline TAZOBACTAM (Verified Allergy, Intermediate, Itching, 01/29/15) POLYMYXIN B (Verified Allergy, Mild, Rash, 04/08/16) Suspected allergy reported by VANCOMYCIN (Verified Allergy, Mild, 07/15/14) ASPARAGINASE (Verified Allergy, Unknown, 01/28/14) CEFUROXIME (Unverified Allergy, Unknown, 04/19/16) IRON (Verified Allergy, Unknown, 01/28/14) LATEX, NATURAL RUBBER (Unverified Allergy, Unknown, 06/18/16) Objective Vital Signs Last 24 Hour Vital Signs Date Time Temp Pulse Resp B/P (MAP) Pulse Ox O2 Delivery O2 Flow Rate FiO2 09/24/19 04:00 98.4 100 18 127/69 (88) 97 09/24/19 00:00 99.0 104 18 120/56 (77) 97 09/23/19 21:00 Room Air 09/23/19 20:00 96 Room Air 21 09/23/19 20:00 99.2 103 18 115/58 (77) 97 09/23/19 16:00 98.5 99 18 124/60 (81) 98 09/23/19 12:00 97.8 101 18 102/62 (75) 98 Height (Feet): 5 Height (Inches): 5.00 Weight (Pounds): 201 Respiratory/Chest: lungs clear Cardiovascular: normal rate, regular rhythm, no gallop/murmur Abdomen: soft, non tender, other - back 3 drains Extremities: no edema, other - left arm PICC Microbiology Date/Time Source Procedure Growth Status 09/21/19 15:00 Body Fluid Gram Stain - Final Resulted 09/21/19 15:00 Body Fluid Culture - Preliminary Staphylococcus Aureus Resulted 09/21/19 15:00 Body Fluid Anaerobic Culture - Preliminary NO ANAEROBES ISOLATED Resulted 09/21/19 15:00 Body Fluid Gram Stain - Final Resulted 09/21/19 15:00 Body Fluid Culture - Preliminary Staphylococcus Aureus Resulted 09/21/19 15:00 Body Fluid Anaerobic Culture - Preliminary NO ANAEROBES ISOLATED Resulted Laboratory Tests Test 09/23/19 11:23 09/24/19 07:35 Magnesium Level 1.8 MG/DL (1.8-2.4) 1.4 MG/DL (1.8-2.4) L White Blood Count 6.9 K/UL (4.8-10.8) Red Blood Count 3.03 M/UL (4.20-5.40) L Hemoglobin 8.8 G/DL (12.0-16.0) L Hematocrit 28.9 % (37.0-47.0) L Mean Corpuscular Volume 96 FL (80-99) Mean Corpuscular Hemoglobin 29.0 PG (27.0-31.0) Mean Corpuscular Hemoglobin Concent 30.3 G/DL (32.0-36.0) L Red Cell Distribution Width 16.5 % (11.6-14.8) H Platelet Count 382 K/UL (150-450) Mean Platelet Volume 5.0 FL (6.5-10.1) L Neutrophils (%) (Auto) 55.6 % (45.0-75.0) Lymphocytes (%) (Auto) 33.5 % (20.0-45.0) Monocytes (%) (Auto) 3.8 % (1.0-10.0) Eosinophils (%) (Auto) 6.3 % (0.0-3.0) H Basophils (%) (Auto) 0.8 % (0.0-2.0) Sodium Level 139 MMOL/L (136-145) Potassium Level 4.2 MMOL/L (3.5-5.1) Chloride Level 108 MMOL/L (98-107) H Carbon Dioxide Level 20 MMOL/L (21-32) L Anion Gap 11 mmol/L (5-15) Blood Urea Nitrogen 11 mg/dL (7-18) Creatinine 0.7 MG/DL (0.55-1.30) Estimat Glomerular Filtration Rate > 60 mL/min (>60) Glucose Level 102 MG/DL (74-106) Lactic Acid Level 1.20 mmol/L (0.4-2.0) Calcium Level 7.8 MG/DL (8.5-10.1) L Phosphorus Level 4.7 MG/DL (2.5-4.9) Total Bilirubin 0.1 MG/DL (0.2-1.0) L Aspartate Amino Transf (AST/SGOT) 12 U/L (15-37) L Alanine Aminotransferase (ALT/SGPT) 18 U/L (12-78) Alkaline Phosphatase 134 U/L (46-116) H Pro-B-Type Natriuretic Peptide 566 pg/mL (0-125) H Total Protein 6.1 G/DL (6.4-8.2) L Albumin 1.1 G/DL (3.4-5.0) L Globulin 5.0 g/dL Albumin/Globulin Ratio 0.2 (1.0-2.7) L Current Medications Medications (Trade) Dose Ordered Sig/Pineda Route PRN Reason Start Time Stop Time Status Last Admin Dose Admin Acetaminophen (Tylenol) 650 mg Q4H PRN ORAL Mild Pain (Pain Scale 1-3) 09/20/19 21:45 10/20/19 21:44 Al Hydroxide/Mg Hydroxide (Mylanta II) 30 ml Q6H PRN ORAL dyspepsia 09/20/19 21:45 10/15/19 21:44 Albuterol Sulfate (Proventil MDI) 2 puff Q4H PRN INH Shortness of Breath 09/20/19 23:00 12/14/19 18:59 Ascorbic Acid (Vitamin C) 500 mg TWICE A DAY ORAL 09/21/19 09:00 10/16/19 17:59 09/24/19 08:10 Chlorhexidine Gluconate (Nereida-Hex 2%) 1 applic DAILY@1999 TOPIC 09/21/19 20:00 12/16/19 19:59 09/23/19 20:32 Heparin Sodium (Porcine) (Heparin 5000 units/ml) 5,000 units EVERY 12 HOURS SUBQ 09/21/19 09:00 10/30/19 08:59 09/23/19 20:33 Hydromorphone HCl (Dilaudid) 0.5 mg Q3HR PRN IVP Severe Pain (Pain Scale 7-10) 09/23/19 00:30 09/30/19 00:29 09/24/19 09:34 Linezolid 300 ml @ 300 mls/hr Q12H IVPB 09/21/19 09:00 09/27/19 08:59 09/24/19 08:11 Multivitamins (Multivitamins) 1 tab DAILY ORAL 09/21/19 09:00 10/17/19 08:59 09/24/19 08:10 Pantoprazole (Protonix) 40 mg DAILY ORAL 09/21/19 09:00 10/15/19 08:59 09/24/19 08:10 Sodium Hypochlorite (Dakin's Quarter Strength) 1 applic BID TOPIC 09/21/19 09:00 10/19/19 11:59 09/24/19 08:19 Sodium Chloride 1,000 ml @ 100 mls/hr Q10H IVLG 09/20/19 21:15 10/15/19 05:30 09/24/19 05:15 Zinc Sulfate (Zinc Sulfate) 220 mg DAILY ORAL 09/21/19 09:00 10/01/19 08:59 09/24/19 08:10 Deng Reyes MD Sep 24, 2019 11:16"
[2019-09-24 12:00] VITALS: BP 115/77
--- NOTE | 2019-09-24 12:26 | Consultation ---
History of Present Illness General Date patient seen: Sep 24, 2019 Time patient seen: 08:00 Chief Complaint: General Complaint Referring physician: Belen Reason for Consultation: LE ulcers Present Illness HPI Patient well known to me from wound care center and prior hospitalizations. She has been in the hospital now for tachycardia, dehydration. Had wbc of 17k. Underwent CT which revealed recurrenc of paraspinal abscess as well as new RLQ collection. She underwent drainage by IR last week. Since she has been feeling better and her WBC is 7k. No N/V and no F/C. She has developed RLE ulcer likely due to pressure in addition to the sacral, left thigh, and left knee wounds. She has no issues currently. Allergies: Coded Allergies: CEFTRIAXONE (Verified Allergy, Intermediate, SOB, HR-140bpm, face swollen , pt became red, 10/24/15) CODEINE (Verified Allergy, Intermediate, SWELLING, 01/03/11) LATEX (Verified Allergy, Intermediate, SWELLING, 01/03/11) PIPERACILLIN (Verified Allergy, Intermediate, Itching, 08/29/15) 08/29/15 tolerates Ceftaroline TAZOBACTAM (Verified Allergy, Intermediate, Itching, 01/29/15) POLYMYXIN B (Verified Allergy, Mild, Rash, 04/08/16) Suspected allergy reported by MD VANCOMYCIN (Verified Allergy, Mild, 07/15/14) ASPARAGINASE (Verified Allergy, Unknown, 01/28/14) CEFUROXIME (Unverified Allergy, Unknown, 04/19/16) IRON (Verified Allergy, Unknown, 01/28/14) LATEX, NATURAL RUBBER (Unverified Allergy, Unknown, 06/18/16) Medication History Scheduled Linezolid* (Zyvox*), 600 MG ORAL EVERY 12 HOURS, (Reported) Pantoprazole* (Protonix*), 40 MG ORAL DAILY, (Reported) Scheduled PRN Albuterol Sulfate* (Albuterol Sulfate Mdi*), 2 PUFF INH Q4H PRN for Constipation , (Reported) Patient History Healthcare decision maker Resuscitation status Advanced Directive on File Review of Systems Skin: Reports: see HPI Physical Exam General Appearance: no apparent distress, alert Lines, tubes and drains: peripheral, other - suction drains from abscess drainages. Skin Exam: other - Left lateral hip ulcer with some drainage but no purulence. Left knee ulcer base is clean and dry. Right posterior thigh ulcer with granular base. Right posterior LE ulcer with loose eschar present. Right anterior LE ulcer with clean granular base. Last 24 Hour Vital Signs Date Time Temp Pulse Resp B/P (MAP) Pulse Ox O2 Delivery O2 Flow Rate FiO2 09/24/19 04:00 98.4 100 18 127/69 (88) 97 09/24/19 00:00 99.0 104 18 120/56 (77) 97 09/23/19 21:00 Room Air 09/23/19 20:00 96 Room Air 21 09/23/19 20:00 99.2 103 18 115/58 (77) 97 09/23/19 16:00 98.5 99 18 124/60 (81) 98 Intake and Output 09/23/19 09/24/19 19:00 07:00 Intake Total 720 ml 1000 ml Output Total 1000 ml Balance -280 ml 1000 ml Intake Oral 720 ml IV Total 1000 ml Output Urine Total 1000 ml Laboratory Tests Test 09/24/19 07:35 White Blood Count 6.9 K/UL (4.8-10.8) Red Blood Count 3.03 M/UL (4.20-5.40) L Hemoglobin 8.8 G/DL (12.0-16.0) L Hematocrit 28.9 % (37.0-47.0) L Mean Corpuscular Volume 96 FL (80-99) Mean Corpuscular Hemoglobin 29.0 PG (27.0-31.0) Mean Corpuscular Hemoglobin Concent 30.3 G/DL (32.0-36.0) L Red Cell Distribution Width 16.5 % (11.6-14.8) H Platelet Count 382 K/UL (150-450) Mean Platelet Volume 5.0 FL (6.5-10.1) L Neutrophils (%) (Auto) 55.6 % (45.0-75.0) Lymphocytes (%) (Auto) 33.5 % (20.0-45.0) Monocytes (%) (Auto) 3.8 % (1.0-10.0) Eosinophils (%) (Auto) 6.3 % (0.0-3.0) H Basophils (%) (Auto) 0.8 % (0.0-2.0) Sodium Level 139 MMOL/L (136-145) Potassium Level 4.2 MMOL/L (3.5-5.1) Chloride Level 108 MMOL/L (98-107) H Carbon Dioxide Level 20 MMOL/L (21-32) L Anion Gap 11 mmol/L (5-15) Blood Urea Nitrogen 11 mg/dL (7-18) Creatinine 0.7 MG/DL (0.55-1.30) Estimat Glomerular Filtration Rate > 60 mL/min (>60) Glucose Level 102 MG/DL (74-106) Lactic Acid Level 1.20 mmol/L (0.4-2.0) Calcium Level 7.8 MG/DL (8.5-10.1) L Phosphorus Level 4.7 MG/DL (2.5-4.9) Magnesium Level 1.4 MG/DL (1.8-2.4) L Total Bilirubin 0.1 MG/DL (0.2-1.0) L Aspartate Amino Transf (AST/SGOT) 12 U/L (15-37) L Alanine Aminotransferase (ALT/SGPT) 18 U/L (12-78) Alkaline Phosphatase 134 U/L (46-116) H Pro-B-Type Natriuretic Peptide 566 pg/mL (0-125) H Total Protein 6.1 G/DL (6.4-8.2) L Albumin 1.1 G/DL (3.4-5.0) L Globulin 5.0 g/dL Albumin/Globulin Ratio 0.2 (1.0-2.7) L Height (Feet): 5 Height (Inches): 5.00 Weight (Pounds): 201 Medications Current Medications Medications (Trade) Dose Ordered Sig/Pineda Route PRN Reason Start Time Stop Time Status Last Admin Dose Admin Acetaminophen (Tylenol) 650 mg Q4H PRN ORAL Mild Pain (Pain Scale 1-3) 09/20/19 21:45 10/20/19 21:44 Al Hydroxide/Mg Hydroxide (Mylanta II) 30 ml Q6H PRN ORAL dyspepsia 09/20/19 21:45 10/15/19 21:44 Albuterol Sulfate (Proventil MDI) 2 puff Q4H PRN INH Shortness of Breath 09/20/19 23:00 12/14/19 18:59 Ascorbic Acid (Vitamin C) 500 mg TWICE A DAY ORAL 09/21/19 09:00 7/7/20 17:59 09/24/19 08:10 Chlorhexidine Gluconate (Nereida-Hex 2%) 1 applic DAILY@2000 TOPIC 09/21/19 20:00 12/16/19 19:59 09/23/19 20:32 Heparin Sodium (Porcine) (Heparin 5000 units/ml) 5,000 units EVERY 12 HOURS SUBQ 09/21/19 09:00 10/30/19 08:59 09/23/19 20:33 Hydromorphone HCl (Dilaudid) 0.5 mg Q3HR PRN IVP Severe Pain (Pain Scale 7-10) 09/23/19 00:30 09/30/19 00:29 09/24/19 09:34 Linezolid 300 ml @ 300 mls/hr Q12H IVPB 09/21/19 09:00 09/27/19 08:59 09/24/19 08:11 Multivitamins (Multivitamins) 1 tab DAILY ORAL 09/21/19 09:00 10/17/19 08:59 09/24/19 08:10 Pantoprazole (Protonix) 40 mg DAILY ORAL 09/21/19 09:00 10/15/19 08:59 09/24/19 08:10 Sodium Hypochlorite (Dakin's Quarter Strength) 1 applic BID TOPIC 09/21/19 09:00 10/19/19 11:59 09/24/19 08:19 Sodium Chloride 1,000 ml @ 100 mls/hr Q10H IVLG 09/20/19 21:15 10/15/19 05:30 09/24/19 05:15 Zinc Sulfate (Zinc Sulfate) 220 mg DAILY ORAL 09/21/19 09:00 10/01/19 08:59 09/24/19 08:10 Assessment/Plan Status: stable, progressing Assessment/Plan: Patient showing significant improvement both subjectively and in her labwork. Wounds of the RLE are pressure related and need offloading. Will continue the same dressings. Once she is discharged, she will be resuming her f/u at the wound center where we will continue to treat her wounds. All questions answered. Keegan Cristobal MD Sep 24, 2019 12:26
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
[2019-09-24 16:00] VITALS: BP 108/70
[2019-09-24 20:00] VITALS: BP 143/76
[2019-09-24] MEDS: Dyna-Hex 2% Top Sol 2oz TOPIC SCH (20:32)
[2019-09-25] VITALS: BP 113/66
[2019-09-25] MEDS: Hydromorphone 0.5mg/0.5ml inj IVP PRN ×7 (00:13→20:39)
--- NOTE | 2019-09-25 03:45 | Progress Note ---
DATE: 09/24/2019 CARDIOLOGY PROGRESS NOTE SUBJECTIVE: The patient remains on IV antimicrobials. Drains in place. Still weak weak with pain. OBJECTIVE: VITAL SIGNS: Blood pressure 120/56, heart rate 104, respiratory rate 18, temperature max 99.2. LUNGS: Diminished breath sounds. Colostomy in place. CARDIAC: Regular rhythm and rate. Normal S1, S2 with no new murmur. EXTREMITIES: With no edema. LABORATORY AND DIAGNOSTIC DATA: White count 6.9, hemoglobin 8.8. Potassium 4.2, bicarb 20, lactic acid 1.2, BUN 11, creatinine 0.7. Magnesium 1.4. Pro-natriuretic peptide 566. Albumin 1.1. IMPRESSION: 1. Severe hypomagnesemia. 2. Multiple abscesses. 3. Sepsis. 4. Physiologic sinus tachycardia. 5. Acute diastolic congestive heart failure due to low colloid osmotic pressure. 6. Severe protein-calorie malnutrition. 7. Metabolic acidosis. PLAN: 1. Discontinue IV fluids. 2. Antimicrobials. 3. Wound care. 4. Additional IV magnesium replacement. 5. Remains high risk. Karthik Parra M.D. DR: MAGNO JOB#: [id number] CC:
[2019-09-25 04:00] VITALS: BP 120/63
[2019-09-25 08:00] VITALS: BP_SYST 110; BP_SYST 111; BP_DIAS 57; BP_DIAS 71
--- NOTE | 2019-09-25 08:52 | Pulmonology Progress Note ---
Subjective ROS Limited/Unobtainable: No Constitutional: Denies: fever, chills Gastrointestinal/Abdominal: Denies: nausea, vomiting, diarrhea Skin: Reports: other - itching Musculoskeletal: Reports: pain - decreased Allergies: Coded Allergies: CEFTRIAXONE (Verified Allergy, Intermediate, SOB, HR-140bpm, face swollen , pt became red, 10/24/15) CODEINE (Verified Allergy, Intermediate, SWELLING, 01/03/11) LATEX (Verified Allergy, Intermediate, SWELLING, 01/03/11) PIPERACILLIN (Verified Allergy, Intermediate, Itching, 08/29/15) 08/29/15 tolerates Ceftaroline TAZOBACTAM (Verified Allergy, Intermediate, Itching, 01/29/15) POLYMYXIN B (Verified Allergy, Mild, Rash, 04/08/16) Suspected allergy reported by VANCOMYCIN (Verified Allergy, Mild, 07/15/14) ASPARAGINASE (Verified Allergy, Unknown, 01/28/14) CEFUROXIME (Unverified Allergy, Unknown, 04/19/16) IRON (Verified Allergy, Unknown, 01/28/14) LATEX, NATURAL RUBBER (Unverified Allergy, Unknown, 06/18/16) Subjective care noted CT noted- and [address] improving Objective Last 24 Hour Vital Signs Date Time Temp Pulse Resp B/P (MAP) Pulse Ox O2 Delivery O2 Flow Rate FiO2 09/25/19 08:00 98.4 90 18 110/71 (84) 99 09/25/19 04:00 97.5 103 20 120/63 (82) 99 09/25/19 00:00 98.2 105 20 113/66 (82) 99 09/24/19 21:00 Room Air 09/24/19 20:00 98.4 115 20 143/76 (98) 98 09/24/19 16:00 99.1 104 18 108/70 (83) 95 09/24/19 12:00 97.9 87 18 115/77 (90) 94 09/24/19 10:04 98.4 09/24/19 09:00 Room Air Intake and Output 09/24/19 09/25/19 19:00 07:00 Intake Total 960 ml Balance 960 ml Intake Oral 960 ml # Voids 5 Objective GENERAL: A well-developed female, weak overall HEENT: Otherwise negative. NECK: Supple. No adenopathy. LUNGS: no rhonchi or wheeze Moderate air entry. CARDIAC: RRR, otherwise regular without murmurs, rubs, or gallops. ABDOMEN: Soft, obese, and colostomy. EXTREMITIES: No cyanosis, clubbing, or edema. Significant atrophy of the lower limbs. NEUROLOGIC: Otherwise nonfocal with paraparesis. Current Medications Medications (Trade) Dose Ordered Sig/Pineda Route PRN Reason Start Time Stop Time Status Last Admin Dose Admin Acetaminophen (Tylenol) 650 mg Q4H PRN ORAL Mild Pain (Pain Scale 1-3) 09/20/19 21:45 10/20/19 21:44 Al Hydroxide/Mg Hydroxide (Mylanta II) 30 ml Q6H PRN ORAL dyspepsia 09/20/19 21:45 10/15/19 21:44 Albuterol Sulfate (Proventil MDI) 2 puff Q4H PRN INH Shortness of Breath 09/20/19 23:00 12/14/19 18:59 Ascorbic Acid (Vitamin C) 500 mg TWICE A DAY ORAL 09/21/19 09:00 10/16/19 17:59 09/24/19 17:31 Chlorhexidine Gluconate (Nereida-Hex 2%) 1 applic DAILY@2000 TOPIC 09/21/19 20:00 12/16/19 19:59 09/24/19 20:32 Heparin Sodium (Porcine) (Heparin 5000 units/ml) 5,000 units EVERY 12 HOURS SUBQ 09/21/19 09:00 10/30/19 08:59 09/23/19 20:33 Hydromorphone HCl (Dilaudid) 0.5 mg Q3HR PRN IVP Severe Pain (Pain Scale 7-10) 09/23/19 00:30 09/30/19 00:29 09/25/19 07:02 Linezolid 300 ml @ 300 mls/hr Q12H IVPB 09/21/19 09:00 09/27/19 08:59 09/24/19 20:33 Multivitamins (Multivitamins) 1 tab DAILY ORAL 09/21/19 09:00 10/17/19 08:59 09/24/19 08:10 Pantoprazole (Protonix) 40 mg DAILY ORAL 09/21/19 09:00 10/15/19 08:59 09/24/19 08:10 Sodium Hypochlorite (Dakin's Quarter Strength) 1 applic BID TOPIC 09/21/19 09:00 10/19/19 11:59 09/24/19 17:32 Zinc Sulfate (Zinc Sulfate) 220 mg DAILY ORAL 09/21/19 09:00 10/01/19 08:59 09/24/19 08:10 Assessment/Plan Assessment/Plan IMPRESSION: 1. Chronic opioid dependence, possible some withdrawal associated tachycardia. 2. Hyponatremia. 3. Hypokalemia. 4. Severe protein-calorie malnutrition. 5. Mild coagulopathy. 6. Leukocytosis. 7. Anemia, possible sepsis. 8. Multiple antibiotic allergies. 9. sinus tachycardia PLAN care noted s/p drain placement with improvement subjectively IV antibiotics per ID may need PRBC soon if HH goes down again maintain access for now does not want SNF pain management as is ID clearance noted impression, plan, and exam edited and reviewed in detail care discussed with Thanh Garcia MD Sep 25, 2019 08:52
[2019-09-25] MEDS: Heparin 5000 units/ml inj SUBQ SCH ×2 (09:00→20:48)
[2019-09-25] MEDS: Zinc Sulfate 220mg ORAL SCH (09:19)
[2019-09-25] MEDS: Ascorbic Acid 500mg tab ORAL SCH ×2 (09:19→17:12)
[2019-09-25] MEDS: Dakin's 0.125% Soln (Quarter Strength) 16oz TOPIC SCH ×2 (09:21→17:12)
--- NOTE | 2019-09-25 11:02 | Infectious Diseases Prog Note ---
"Assessment/Plan Assessment/Plan antibiotics : linezolid A 1. pseudomonas | enterobacter pneumonia. patient refused treatment 2. lumbar abscess, hip abscess s/p drainage with MRSA 3. Paraplegia. 4. Leukocytosis is improving. P 1. continue linezolid 2. will follow up cultures Subjective Constitutional: Denies: fever, chills Respiratory: Denies: shortness of breath, dry cough Gastrointestinal/Abdominal: Denies: nausea, vomiting, diarrhea Musculoskeletal: Reports: pain - back Allergies: Coded Allergies: CEFTRIAXONE (Verified Allergy, Intermediate, SOB, HR-140bpm, face swollen , pt became red, 10/24/15) CODEINE (Verified Allergy, Intermediate, SWELLING, 01/03/11) LATEX (Verified Allergy, Intermediate, SWELLING, 01/03/11) PIPERACILLIN (Verified Allergy, Intermediate, Itching, 08/29/15) 08/29/15 tolerates Ceftaroline TAZOBACTAM (Verified Allergy, Intermediate, Itching, 01/29/15) POLYMYXIN B (Verified Allergy, Mild, Rash, 04/08/16) Suspected allergy reported by VANCOMYCIN (Verified Allergy, Mild, 07/15/14) ASPARAGINASE (Verified Allergy, Unknown, 01/28/14) CEFUROXIME (Unverified Allergy, Unknown, 04/19/16) IRON (Verified Allergy, Unknown, 01/28/14) LATEX, NATURAL RUBBER (Unverified Allergy, Unknown, 06/18/16) Objective Vital Signs Last 24 Hour Vital Signs Date Time Temp Pulse Resp B/P (MAP) Pulse Ox O2 Delivery O2 Flow Rate FiO2 09/25/19 09:00 Room Air 09/25/19 08:00 97.8 105 20 111/57 (75) 98 09/25/19 04:00 97.5 103 20 120/63 (82) 99 09/25/19 00:00 98.2 105 20 113/66 (82) 99 09/24/19 21:00 Room Air 09/24/19 20:00 98.4 115 20 143/76 (98) 98 09/24/19 16:00 99.1 104 18 108/70 (83) 95 09/24/19 12:00 97.9 87 18 115/77 (90) 94 Height (Feet): 5 Height (Inches): 5.00 Weight (Pounds): 201 Respiratory/Chest: lungs clear Cardiovascular: normal rate, regular rhythm, no gallop/murmur Abdomen: soft, non tender Extremities: no edema, other - left arm PICC Musculoskeletal: other - back 3 TISH drains Current Medications Medications (Trade) Dose Ordered Sig/Pineda Route PRN Reason Start Time Stop Time Status Last Admin Dose Admin Acetaminophen (Tylenol) 650 mg Q4H PRN ORAL Mild Pain (Pain Scale 1-3) 09/20/19 21:45 10/20/19 21:44 Al Hydroxide/Mg Hydroxide (Mylanta II) 30 ml Q6H PRN ORAL dyspepsia 09/20/19 21:45 10/15/19 21:44 Albuterol Sulfate (Proventil MDI) 2 puff Q4H PRN INH Shortness of Breath 09/20/19 23:00 12/14/19 18:59 Ascorbic Acid (Vitamin C) 500 mg TWICE A DAY ORAL 09/21/19 09:00 10/16/19 17:59 09/25/19 09:19 Chlorhexidine Gluconate (Nereida-Hex 2%) 1 applic DAILY@2000 TOPIC 09/21/19 20:00 12/16/19 19:59 09/24/19 20:32 Heparin Sodium (Porcine) (Heparin 5000 units/ml) 5,000 units EVERY 12 HOURS SUBQ 09/21/19 09:00 10/30/19 08:59 09/23/19 20:33 Hydromorphone HCl (Dilaudid) 0.5 mg Q3HR PRN IVP Severe Pain (Pain Scale 7-10) 09/23/19 00:30 09/30/19 00:29 09/25/19 10:12 Linezolid 300 ml @ 300 mls/hr Q12H IVPB 09/21/19 09:00 09/27/19 08:59 09/25/19 09:19 Multivitamins (Multivitamins) 1 tab DAILY ORAL 09/21/19 09:00 10/17/19 08:59 09/25/19 09:19 Pantoprazole (Protonix) 40 mg DAILY ORAL 09/21/19 09:00 10/15/19 08:59 09/25/19 09:19 Sodium Hypochlorite (Dakin's Quarter Strength) 1 applic BID TOPIC 09/21/19 09:00 10/19/19 11:59 09/25/19 09:21 Zinc Sulfate (Zinc Sulfate) 220 mg DAILY ORAL 09/21/19 09:00 10/01/19 08:59 09/25/19 09:19 Deng Reyes MD Sep 25, 2019 11:02"
[2019-09-25 12:00] VITALS: BP 112/67
--- NOTE | 2019-09-25 13:33 | General Progress Note ---
Assessment/Plan Assessment/Plan: (1) Paraplegia (2) Spinal cord injury (3) Lumbar spine osteomyelitis discitis (4) Paraspinal abscess s/p CT guided placement of three percutaneous drainage catheters into right psoas muscle, posterior paraspinal, and left hip abscesses (5) Sacral decubitus ulcer (6) Intractable pain We will continue the Dilaudid D/w Dr. Avina and he concurred. Subjective Date patient seen: Sep 25, 2019 Time patient seen: 01:00 - pm Allergies: Coded Allergies: CEFTRIAXONE (Verified Allergy, Intermediate, SOB, HR-140bpm, face swollen , pt became red, 10/24/15) CODEINE (Verified Allergy, Intermediate, SWELLING, 01/03/11) LATEX (Verified Allergy, Intermediate, SWELLING, 01/03/11) PIPERACILLIN (Verified Allergy, Intermediate, Itching, 08/29/15) 08/29/15 tolerates Ceftaroline TAZOBACTAM (Verified Allergy, Intermediate, Itching, 01/29/15) POLYMYXIN B (Verified Allergy, Mild, Rash, 04/08/16) Suspected allergy reported by MD VANCOMYCIN (Verified Allergy, Mild, 07/15/14) ASPARAGINASE (Verified Allergy, Unknown, 01/28/14) CEFUROXIME (Unverified Allergy, Unknown, 04/19/16) IRON (Verified Allergy, Unknown, 01/28/14) LATEX, NATURAL RUBBER (Unverified Allergy, Unknown, 06/18/16) Subjective Constitutional: Reports: weakness HEENT: Reports: no symptoms Cardiovascular: Reports: no symptoms Respiratory: Reports: no symptoms Gastrointestinal/Abdominal: Reports: no symptoms Genitourinary: Reports: no symptoms Neurologic/Psychiatric: Reports: weakness Endocrine: Reports: no symptoms Hematologic/Lymphatic: Reports: no symptoms Subjective Patient reports that the pain is at a moderate level tolerated on the Dilaudid 4 doses in the last 24hrs. No new complaints at this time. Objective Last 24 Hour Vital Signs Date Time Temp Pulse Resp B/P (MAP) Pulse Ox O2 Delivery O2 Flow Rate FiO2 09/25/19 12:00 97.7 91 20 112/67 (82) 100 09/25/19 10:42 97.8 09/25/19 09:00 Room Air 09/25/19 08:00 97.8 105 20 111/57 (75) 98 09/25/19 04:00 97.5 103 20 120/63 (82) 99 09/25/19 00:00 98.2 105 20 113/66 (82) 99 09/24/19 21:00 Room Air 09/24/19 20:00 98.4 115 20 143/76 (98) 98 09/24/19 16:00 99.1 104 18 108/70 (83) 95 Intake and Output 09/24/19 09/25/19 19:00 07:00 Intake Total 960 ml Balance 960 ml Intake Oral 960 ml # Voids 5 Height (Feet): 5 Height (Inches): 5.00 Weight (Pounds): 201 Objective General Appearance: no apparent distress, alert EENT: PERRL/EOMI, normal ENT inspection Neck: non-tender, normal alignment Cardiovascular: normal rate, regular rhythm Respiratory/Chest: decreased breath sounds Abdomen: other - colostomy Extremities: other - wounds noted Edema: mild edema Neurologic: alert, responsive Mike Ellis Sep 25, 2019 13:33
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
[2019-09-25 16:00] VITALS: BP 108/74
[2019-09-25] MEDS: Dyna-Hex 2% Top Sol 2oz TOPIC SCH (20:44)
[2019-09-26] VITALS: BP 117/65
[2019-09-26] MEDS: Hydromorphone 0.5mg/0.5ml inj IVP PRN ×7 (00:45→21:07)
[2019-09-26 06:34] LABS: BASOPHILS % (AUTO) 0.9 % (0.0-2.0); HEMATOCRIT 30.3 % (37.0-47.0); HEMOGLOBIN 9.2 G/DL (12.0-16.0); LYMPHOCYTES % (AUTO) 30.1 % (20.0-45.0); MEAN CORPUSCULAR VOLUME 95 FL (80-99); MONOCYTES % (AUTO) 4.4 % (1.0-10.0); NEUTROPHILS % (AUTO) 60.6 % (45.0-75.0); PLATELET COUNT 323 K/UL (150-450); RED CELL DISTRIBUTION WIDTH 16.2 % (11.6-14.8); WHITE BLOOD COUNT 7.4 K/UL (4.8-10.8)
[2019-09-26 08:00] VITALS: BP 121/71
[2019-09-26 08:02] LABS: ALANINE AMINOTRANSFERASE 27 U/L (12-78); ALBUMIN 1.3 G/DL (3.4-5.0); ALKALINE PHOSPHATASE 190 U/L (46-116); ANION GAP 11 mmol/L (5-15); BILIRUBIN,TOTAL 0.2 MG/DL (0.2-1.0); BLOOD UREA NITROGEN 14 mg/dL (7-18); CARBON DIOXIDE 21 MMOL/L (21-32); CHLORIDE 107 MMOL/L (98-107); CREATININE 0.9 MG/DL (0.55-1.30); POTASSIUM 5.1 MMOL/L (3.5-5.1); SODIUM 139 MMOL/L (136-145)
[2019-09-26 08:11] LABS: ASPARTATE AMINO TRANSFERASE 19 U/L (15-37)
[2019-09-26] MEDS: Ascorbic Acid 500mg tab ORAL SCH ×2 (08:33→17:35)
[2019-09-26] MEDS: Zinc Sulfate 220mg ORAL SCH (08:44)
[2019-09-26] MEDS: Heparin 5000 units/ml inj SUBQ SCH ×2 (08:44→21:00)
[2019-09-26] MEDS: Dakin's 0.125% Soln (Quarter Strength) 16oz TOPIC SCH ×2 (08:45→17:42)
--- NOTE | 2019-09-26 09:15 | Progress Note ---
DATE: 09/25/2019 CARDIOLOGY PROGRESS NOTE SUBJECTIVE: The patient remained with drainage catheters for recurring abscesses. She continue to feel weak and fatigued. OBJECTIVE: VITAL SIGNS: Blood pressure 110/71, heart rate 90 to 115, respiratory rate 18 to 20. She is afebrile. T-max 99.1. LUNGS: Clear. CARDIAC: Regular rhythm and rate. Normal S1, S2 with no murmur. ABDOMEN: Soft. Colostomy noted. Drains secured. EXTREMITIES: Trace edema. IMPRESSION: 1. Sepsis. 2. Polymicrobial wound infection with abscesses. 3. Dehydration. 4. Hyponatremia. 5. Metabolic acidosis. 6. Hypomagnesemia. 7. Acute diastolic congestive heart failure. 8. Secondary sinus tachycardia. PLAN: 1. Recheck lab studies. 2. Antimicrobials. 3. Wound care. 4. Protein supplement. 5. Expect mobilization of edema as colloid osmotic pressure improves. Karthik Parra M.D. DR: LAVONNE JOB#: [id number] CC:
--- NOTE | 2019-09-26 09:39 | Pulmonology Progress Note ---
Subjective ROS Limited/Unobtainable: No Constitutional: Denies: fever, chills Gastrointestinal/Abdominal: Denies: nausea, vomiting, diarrhea Skin: Reports: other - itching Musculoskeletal: Reports: pain - back Allergies: Coded Allergies: CEFTRIAXONE (Verified Allergy, Intermediate, SOB, HR-140bpm, face swollen , pt became red, 10/24/15) CODEINE (Verified Allergy, Intermediate, SWELLING, 01/03/11) LATEX (Verified Allergy, Intermediate, SWELLING, 01/03/11) PIPERACILLIN (Verified Allergy, Intermediate, Itching, 08/29/15) 08/29/15 tolerates Ceftaroline TAZOBACTAM (Verified Allergy, Intermediate, Itching, 01/29/15) POLYMYXIN B (Verified Allergy, Mild, Rash, 04/08/16) Suspected allergy reported by VANCOMYCIN (Verified Allergy, Mild, 07/15/14) ASPARAGINASE (Verified Allergy, Unknown, 01/28/14) CEFUROXIME (Unverified Allergy, Unknown, 04/19/16) IRON (Verified Allergy, Unknown, 01/28/14) LATEX, NATURAL RUBBER (Unverified Allergy, Unknown, 06/18/16) Subjective care noted drains remain in place improving Objective Last 24 Hour Vital Signs Date Time Temp Pulse Resp B/P (MAP) Pulse Ox O2 Delivery O2 Flow Rate FiO2 09/26/19 08:00 98.2 102 19 121/71 (88) 98 09/26/19 00:00 98.8 106 17 117/65 (82) 97 09/25/19 21:00 Room Air 09/25/19 20:18 95 Room Air 21 09/25/19 17:42 97.8 09/25/19 16:00 97.8 104 20 108/74 (85) 100 09/25/19 12:00 97.7 91 20 112/67 (82) 100 Intake and Output 09/25/19 09/26/19 19:00 07:00 Intake Total 660 ml 300 ml Balance 660 ml 300 ml Intake Oral 360 ml IV Total 300 ml 300 ml Objective GENERAL: A well-developed female, weak overall HEENT: Otherwise negative. NECK: Supple. No adenopathy. LUNGS: no rhonchi or wheeze Moderate air entry. CARDIAC: RRR, otherwise regular without murmurs, rubs, or gallops. ABDOMEN: Soft, obese, and colostomy. EXTREMITIES: No cyanosis, clubbing, or edema. Significant atrophy of the lower limbs. NEUROLOGIC: Otherwise nonfocal with paraparesis. Laboratory Tests 09/26/19 05:58: White Blood Count 7.4, Red Blood Count 3.20L, Hemoglobin 9.2L, Hematocrit 30.3L , Mean Corpuscular Volume 95, Mean Corpuscular Hemoglobin 28.7, Mean Corpuscular Hemoglobin Concent 30.3L, Red Cell Distribution Width 16.2H, Platelet Count 323, Mean Platelet Volume 5.7L, Neutrophils (%) (Auto) 60.6, Lymphocytes (%) (Auto) 30.1, Monocytes (%) (Auto) 4.4, Eosinophils (%) (Auto) 4.0H, Basophils (%) (Auto) 0.9, Sodium Level 139, Potassium Level 5.1, Chloride Level 107, Carbon Dioxide Level 21, Anion Gap 11, Blood Urea Nitrogen 14, Creatinine 0.9, Estimat Glomerular Filtration Rate > 60, Glucose Level 129H, Calcium Level 8.0L, Magnesium Level 1.5L, Total Bilirubin 0.2, Aspartate Amino Transf (AST/SGOT) 19, Alanine Aminotransferase (ALT/SGPT) 27, Alkaline Phosphatase 190H, Pro-B-Type Natriuretic Peptide 423H, Total Protein 6.9, Albumin 1.3L, Globulin 5.6 Current Medications Medications (Trade) Dose Ordered Sig/Pineda Route PRN Reason Start Time Stop Time Status Last Admin Dose Admin Acetaminophen (Tylenol) 650 mg Q4H PRN ORAL Mild Pain (Pain Scale 1-3) 09/20/19 21:45 10/20/19 21:44 Al Hydroxide/Mg Hydroxide (Mylanta II) 30 ml Q6H PRN ORAL dyspepsia 09/20/19 21:45 10/15/19 21:44 Albuterol Sulfate (Proventil MDI) 2 puff Q4H PRN INH Shortness of Breath 09/20/19 23:00 12/14/19 18:59 Ascorbic Acid (Vitamin C) 500 mg TWICE A DAY ORAL 09/21/19 09:00 10/16/19 17:59 09/26/19 08:33 Chlorhexidine Gluconate (Nereida-Hex 2%) 1 applic DAILY@1999 TOPIC 09/21/19 20:00 12/16/19 19:59 09/25/19 20:44 Heparin Sodium (Porcine) (Heparin 5000 units/ml) 5,000 units EVERY 12 HOURS SUBQ 09/21/19 09:00 10/30/19 08:59 09/25/19 20:48 Hydromorphone HCl (Dilaudid) 0.5 mg Q3HR PRN IVP Severe Pain (Pain Scale 7-10) 09/23/19 00:30 09/30/19 00:29 09/26/19 08:30 Linezolid 300 ml @ 300 mls/hr Q12H IVPB 09/21/19 09:00 09/30/19 23:59 09/26/19 08:44 Multivitamins (Multivitamins) 1 tab DAILY ORAL 09/21/19 09:00 10/17/19 08:59 09/26/19 08:33 Pantoprazole (Protonix) 40 mg DAILY ORAL 09/21/19 09:00 10/15/19 08:59 09/26/19 08:33 Sodium Hypochlorite (Dakin's Quarter Strength) 1 applic BID TOPIC 09/21/19 09:00 10/19/19 11:59 09/26/19 08:45 Zinc Sulfate (Zinc Sulfate) 220 mg DAILY ORAL 09/21/19 09:00 10/01/19 08:59 09/26/19 08:44 Assessment/Plan Assessment/Plan IMPRESSION: 1. Chronic opioid dependence, possible some withdrawal associated tachycardia. 2. Hyponatremia. 3. Hypokalemia. 4. Severe protein-calorie malnutrition. 5. Mild coagulopathy. 6. Leukocytosis. 7. Anemia, possible sepsis. 8. Multiple antibiotic allergies. 9. sinus tachycardia PLAN care noted monitor drain IV antibiotics per ID monitor for transfusion maintain access for now does not want SNF pain management as is ID clearance and case management to assist impression, plan, and exam edited and reviewed in detail care discussed with Thanh Garcia MD Sep 26, 2019 09:39
--- NOTE | 2019-09-26 09:49 | General Progress Note ---
Assessment/Plan Assessment/Plan: (1) Paraplegia (2) Spinal cord injury (3) Lumbar spine osteomyelitis discitis (4) Paraspinal abscess s/p CT guided placement of three percutaneous drainage catheters into right psoas muscle, posterior paraspinal, and left hip abscesses (5) Sacral decubitus ulcer (6) Intractable pain We will continue the Dilaudid D/w Dr. Avina and he concurred. Subjective Date patient seen: Sep 26, 2019 Time patient seen: 09:15 - pm Allergies: Coded Allergies: CEFTRIAXONE (Verified Allergy, Intermediate, SOB, HR-140bpm, face swollen , pt became red, 10/24/15) CODEINE (Verified Allergy, Intermediate, SWELLING, 01/03/11) LATEX (Verified Allergy, Intermediate, SWELLING, 01/03/11) PIPERACILLIN (Verified Allergy, Intermediate, Itching, 08/29/15) 08/29/15 tolerates Ceftaroline TAZOBACTAM (Verified Allergy, Intermediate, Itching, 01/29/15) POLYMYXIN B (Verified Allergy, Mild, Rash, 04/08/16) Suspected allergy reported by MD VANCOMYCIN (Verified Allergy, Mild, 07/15/14) ASPARAGINASE (Verified Allergy, Unknown, 01/28/14) CEFUROXIME (Unverified Allergy, Unknown, 04/19/16) IRON (Verified Allergy, Unknown, 01/28/14) LATEX, NATURAL RUBBER (Unverified Allergy, Unknown, 06/18/16) Subjective Constitutional: Reports: weakness HEENT: Reports: no symptoms Cardiovascular: Reports: no symptoms Respiratory: Reports: no symptoms Gastrointestinal/Abdominal: Reports: no symptoms Genitourinary: Reports: no symptoms Neurologic/Psychiatric: Reports: weakness Endocrine: Reports: no symptoms Hematologic/Lymphatic: Reports: no symptoms Subjective Patient is in bed and doing well tolerating the pain on the Dilaudid. No new complaints at this time. Objective Last 24 Hour Vital Signs Date Time Temp Pulse Resp B/P (MAP) Pulse Ox O2 Delivery O2 Flow Rate FiO2 09/26/19 08:00 98.2 102 19 121/71 (88) 98 09/26/19 00:00 98.8 106 17 117/65 (82) 97 09/25/19 21:00 Room Air 09/25/19 20:18 95 Room Air 21 09/25/19 17:42 97.8 09/25/19 16:00 97.8 104 20 108/74 (85) 100 09/25/19 12:00 97.7 91 20 112/67 (82) 100 Intake and Output 09/25/19 09/26/19 19:00 07:00 Intake Total 660 ml 300 ml Balance 660 ml 300 ml Intake Oral 360 ml IV Total 300 ml 300 ml Laboratory Tests 09/26/19 05:58: White Blood Count 7.4, Red Blood Count 3.20L, Hemoglobin 9.2L, Hematocrit 30.3L , Mean Corpuscular Volume 95, Mean Corpuscular Hemoglobin 28.7, Mean Corpuscular Hemoglobin Concent 30.3L, Red Cell Distribution Width 16.2H, Platelet Count 323, Mean Platelet Volume 5.7L, Neutrophils (%) (Auto) 60.6, Lymphocytes (%) (Auto) 30.1, Monocytes (%) (Auto) 4.4, Eosinophils (%) (Auto) 4.0H, Basophils (%) (Auto) 0.9, Sodium Level 139, Potassium Level 5.1, Chloride Level 107, Carbon Dioxide Level 21, Anion Gap 11, Blood Urea Nitrogen 14, Creatinine 0.9, Estimat Glomerular Filtration Rate > 60, Glucose Level 129H, Calcium Level 8.0L, Magnesium Level 1.5L, Total Bilirubin 0.2, Aspartate Amino Transf (AST/SGOT) 19, Alanine Aminotransferase (ALT/SGPT) 27, Alkaline Phosphatase 190H, Pro-B-Type Natriuretic Peptide 423H, Total Protein 6.9, Albumin 1.3L, Globulin 5.6 Height (Feet): 5 Height (Inches): 5.00 Weight (Pounds): 200 Objective General Appearance: no apparent distress, alert EENT: PERRL/EOMI, normal ENT inspection Neck: non-tender, normal alignment Cardiovascular: normal rate, regular rhythm Respiratory/Chest: decreased breath sounds Abdomen: other - colostomy Extremities: other - wounds noted Edema: mild edema Neurologic: alert, responsive Mike Ellis Sep 26, 2019 09:49
--- NOTE | 2019-09-26 11:03 | Infectious Diseases Prog Note ---
"Assessment/Plan Assessment/Plan antibiotics : linezolid A 1. pseudomonas | enterobacter pneumonia. patient refused treatment 2. lumbar abscess, hip abscess s/p drainage with MRSA 3. Paraplegia. 4. Leukocytosis is improving. P 1. continue linezolid 22 more days iv 2. cbc, bmp, lft q weekly 3. will follow up cultures Subjective Constitutional: Denies: fever, chills Respiratory: Denies: shortness of breath, dry cough Gastrointestinal/Abdominal: Reports: nausea; Denies: vomiting, diarrhea Musculoskeletal: Reports: pain - back Allergies: Coded Allergies: CEFTRIAXONE (Verified Allergy, Intermediate, SOB, HR-140bpm, face swollen , pt became red, 10/24/15) CODEINE (Verified Allergy, Intermediate, SWELLING, 01/03/11) LATEX (Verified Allergy, Intermediate, SWELLING, 01/03/11) PIPERACILLIN (Verified Allergy, Intermediate, Itching, 08/29/15) 08/29/15 tolerates Ceftaroline TAZOBACTAM (Verified Allergy, Intermediate, Itching, 01/29/15) POLYMYXIN B (Verified Allergy, Mild, Rash, 04/08/16) Suspected allergy reported by VANCOMYCIN (Verified Allergy, Mild, 07/15/14) ASPARAGINASE (Verified Allergy, Unknown, 01/28/14) CEFUROXIME (Unverified Allergy, Unknown, 04/19/16) IRON (Verified Allergy, Unknown, 01/28/14) LATEX, NATURAL RUBBER (Unverified Allergy, Unknown, 06/18/16) Objective Vital Signs Last 24 Hour Vital Signs Date Time Temp Pulse Resp B/P (MAP) Pulse Ox O2 Delivery O2 Flow Rate FiO2 09/26/19 09:00 Room Air 09/26/19 08:00 98.2 102 19 121/71 (88) 98 09/26/19 00:00 98.8 106 17 117/65 (82) 97 09/25/19 21:00 Room Air 09/25/19 20:18 95 Room Air 21 09/25/19 17:42 97.8 09/25/19 16:00 97.8 104 20 108/74 (85) 100 09/25/19 12:00 97.7 91 20 112/67 (82) 100 Height (Feet): 5 Height (Inches): 5.00 Weight (Pounds): 200 Respiratory/Chest: lungs clear Cardiovascular: normal rate, regular rhythm, no gallop/murmur Abdomen: soft, non tender, other - back with 3 drains Extremities: no edema, other - left arm PICC Laboratory Tests Test 09/26/19 05:58 White Blood Count 7.4 K/UL (4.8-10.8) Red Blood Count 3.20 M/UL (4.20-5.40) L Hemoglobin 9.2 G/DL (12.0-16.0) L Hematocrit 30.3 % (37.0-47.0) L Mean Corpuscular Volume 95 FL (80-99) Mean Corpuscular Hemoglobin 28.7 PG (27.0-31.0) Mean Corpuscular Hemoglobin Concent 30.3 G/DL (32.0-36.0) L Red Cell Distribution Width 16.2 % (11.6-14.8) H Platelet Count 323 K/UL (150-450) Mean Platelet Volume 5.7 FL (6.5-10.1) L Neutrophils (%) (Auto) 60.6 % (45.0-75.0) Lymphocytes (%) (Auto) 30.1 % (20.0-45.0) Monocytes (%) (Auto) 4.4 % (1.0-10.0) Eosinophils (%) (Auto) 4.0 % (0.0-3.0) H Basophils (%) (Auto) 0.9 % (0.0-2.0) Sodium Level 139 MMOL/L (136-145) Potassium Level 5.1 MMOL/L (3.5-5.1) Chloride Level 107 MMOL/L (98-107) Carbon Dioxide Level 21 MMOL/L (21-32) Anion Gap 11 mmol/L (5-15) Blood Urea Nitrogen 14 mg/dL (7-18) Creatinine 0.9 MG/DL (0.55-1.30) Estimat Glomerular Filtration Rate > 60 mL/min (>60) Glucose Level 129 MG/DL (74-106) H Calcium Level 8.0 MG/DL (8.5-10.1) L Magnesium Level 1.5 MG/DL (1.8-2.4) L Total Bilirubin 0.2 MG/DL (0.2-1.0) Aspartate Amino Transf (AST/SGOT) 19 U/L (15-37) Alanine Aminotransferase (ALT/SGPT) 27 U/L (12-78) Alkaline Phosphatase 190 U/L (46-116) H Pro-B-Type Natriuretic Peptide 423 pg/mL (0-125) H Total Protein 6.9 G/DL (6.4-8.2) Albumin 1.3 G/DL (3.4-5.0) L Globulin 5.6 g/dL Current Medications Medications (Trade) Dose Ordered Sig/Pineda Route PRN Reason Start Time Stop Time Status Last Admin Dose Admin Acetaminophen (Tylenol) 650 mg Q4H PRN ORAL Mild Pain (Pain Scale 1-3) 09/20/19 21:45 10/20/19 21:44 Al Hydroxide/Mg Hydroxide (Mylanta II) 30 ml Q6H PRN ORAL dyspepsia 09/20/19 21:45 10/15/19 21:44 Albuterol Sulfate (Proventil MDI) 2 puff Q4H PRN INH Shortness of Breath 09/20/19 23:00 12/14/19 18:59 Ascorbic Acid (Vitamin C) 500 mg TWICE A DAY ORAL 09/21/19 09:00 10/16/19 17:59 09/26/19 08:33 Chlorhexidine Gluconate (Nereida-Hex 2%) 1 applic DAILY@2000 TOPIC 09/21/19 20:00 12/16/19 19:59 09/25/19 20:44 Heparin Sodium (Porcine) (Heparin 5000 units/ml) 5,000 units EVERY 12 HOURS SUBQ 09/21/19 09:00 10/30/19 08:59 09/25/19 20:48 Hydromorphone HCl (Dilaudid) 0.5 mg Q3HR PRN IVP Severe Pain (Pain Scale 7-10) 09/23/19 00:30 09/30/19 00:29 09/26/19 08:30 Linezolid 300 ml @ 300 mls/hr Q12H IVPB 09/21/19 09:00 09/30/19 23:59 09/26/19 08:44 Multivitamins (Multivitamins) 1 tab DAILY ORAL 09/21/19 09:00 10/17/19 08:59 09/26/19 08:33 Pantoprazole (Protonix) 40 mg DAILY ORAL 09/21/19 09:00 10/15/19 08:59 09/26/19 08:33 Sodium Hypochlorite (Dakin's Quarter Strength) 1 applic BID TOPIC 09/21/19 09:00 10/19/19 11:59 09/26/19 08:45 Zinc Sulfate (Zinc Sulfate) 220 mg DAILY ORAL 09/21/19 09:00 10/01/19 08:59 09/26/19 08:44 Deng Reyes MD Sep 26, 2019 11:03"
[2019-09-26 12:00] VITALS: BP 120/62
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
[2019-09-26 15:46] VITALS: BP 142/71
[2019-09-26 20:00] VITALS: BP 116/67
[2019-09-26] MEDS: Dyna-Hex 2% Top Sol 2oz TOPIC SCH (21:08)
[2019-09-27] VITALS: BP 128/76
[2019-09-27] MEDS: Hydromorphone 0.5mg/0.5ml inj IVP PRN ×10 (00:10→23:52)
--- NOTE | 2019-09-27 00:17 | CDS Physician Query ---
Clarification is required for compliance, coding accuracy, and to reflect severity of illness for this patient Dear Dr. Glover, Date: 09.27.19 CDS:Amy Solorzano On admission patient was tachycardic, WBC 17.4 H, pulse 135H, blood pressure 74/ 62 L According to the clinical indications above, please indicate below: If sepsis was: Present on Admission: Yes x No Clinically Undetermined Physician signature Date Please also document in your Progress Notes and/or Discharge Summary and indicate if the condition was present on admission. MTDD
[2019-09-27 04:00] VITALS: BP 125/72
--- NOTE | 2019-09-27 05:30 | Progress Note ---
DATE: 09/26/2019 CARDIOLOGY PROGRESS NOTE SUBJECTIVE: Still with some mid abdominal and back discomfort. Heart rate elevated at times. Remains on IV antimicrobials. PHYSICAL EXAMINATION: VITAL SIGNS: Blood pressure 142/71, heart rate up to 127, temperature 99.7, respiratory rate 20. LUNGS: Diminished breath sounds. CARDIAC: Regular rhythm. Rapid rate. Normal S1, S2. ABDOMEN: Soft. EXTREMITIES: Trace dependent edema. LABORATORY DATA: White count 7.4 hemoglobin 9.2. Potassium 5.1, BUN 14, creatinine 0.9. Magnesium 1.5. Pro-natriuretic peptide 423. IMPRESSION: 1. Sepsis. 2. Secondary sinus tachycardia. 3. Muscle pain. 4. Abscesses with drains. 5. Total body magnesium depletion. 6. Severe protein-calorie malnutrition. PLAN: 1. Additional IV magnesium. 2. Antimicrobials. 3. Pain control as needed. 4. Volume support. 5. Remains high risk. 6. Continue DVT prophylaxis. Karthik Parra M.D. DR: RAHAT JOB#: [id number] CC:
[2019-09-27 08:00] VITALS: BP 109/58
[2019-09-27] MEDS: Heparin 5000 units/ml inj SUBQ SCH ×2 (09:00→20:30)
--- NOTE | 2019-09-27 09:04 | Pulmonology Progress Note ---
Subjective ROS Limited/Unobtainable: No Constitutional: Denies: fever, chills Gastrointestinal/Abdominal: Reports: nausea; Denies: vomiting, diarrhea Skin: Reports: other - itching Musculoskeletal: Reports: pain - back Allergies: Coded Allergies: CEFTRIAXONE (Verified Allergy, Intermediate, SOB, HR-140bpm, face swollen , pt became red, 10/24/15) CODEINE (Verified Allergy, Intermediate, SWELLING, 01/03/11) LATEX (Verified Allergy, Intermediate, SWELLING, 01/03/11) PIPERACILLIN (Verified Allergy, Intermediate, Itching, 08/29/15) 08/29/15 tolerates Ceftaroline TAZOBACTAM (Verified Allergy, Intermediate, Itching, 01/29/15) POLYMYXIN B (Verified Allergy, Mild, Rash, 04/08/16) Suspected allergy reported by VANCOMYCIN (Verified Allergy, Mild, 07/15/14) ASPARAGINASE (Verified Allergy, Unknown, 01/28/14) CEFUROXIME (Unverified Allergy, Unknown, 04/19/16) IRON (Verified Allergy, Unknown, 01/28/14) LATEX, NATURAL RUBBER (Unverified Allergy, Unknown, 06/18/16) Subjective care noted drains remain in place dc planning discussed Objective Last 24 Hour Vital Signs Date Time Temp Pulse Resp B/P (MAP) Pulse Ox O2 Delivery O2 Flow Rate FiO2 09/27/19 08:00 98.2 113 19 109/58 (75) 97 09/27/19 06:46 98.4 09/27/19 04:00 98.4 105 19 125/72 (89) 97 09/27/19 00:00 98.3 103 20 128/76 (93) 98 09/26/19 21:00 Room Air 09/26/19 20:00 98.7 108 20 116/67 (83) 98 09/26/19 19:17 96 Room Air 21 09/26/19 15:46 99.7 127 20 142/71 (94) 97 09/26/19 12:00 98.2 105 19 120/62 (81) 100 Intake and Output 09/26/19 09/27/19 19:00 07:00 Intake Total 300 ml 300 ml Output Total 35 ml Balance 265 ml 300 ml IV Total 300 ml 300 ml Drainage Total 35 ml Other 0 ml Objective GENERAL: A well-developed female, weak overall HEENT: Otherwise negative. NECK: Supple. No adenopathy. LUNGS: no rhonchi or wheeze Moderate air entry. CARDIAC: RRR, otherwise regular without murmurs, rubs, or gallops. ABDOMEN: Soft, obese, and colostomy. EXTREMITIES: No cyanosis, clubbing, or edema. Significant atrophy of the lower limbs. NEUROLOGIC: Otherwise nonfocal with paraparesis. Current Medications Medications (Trade) Dose Ordered Sig/Pineda Route PRN Reason Start Time Stop Time Status Last Admin Dose Admin Acetaminophen (Tylenol) 650 mg Q4H PRN ORAL Mild Pain (Pain Scale 1-3) 09/20/19 21:45 10/20/19 21:44 Al Hydroxide/Mg Hydroxide (Mylanta II) 30 ml Q6H PRN ORAL dyspepsia 09/20/19 21:45 10/15/19 21:44 Albuterol Sulfate (Proventil MDI) 2 puff Q4H PRN INH Shortness of Breath 09/20/19 23:00 12/14/19 18:59 Ascorbic Acid (Vitamin C) 500 mg TWICE A DAY ORAL 09/21/19 09:00 10/16/19 17:59 09/26/19 17:35 Chlorhexidine Gluconate (Nereida-Hex 2%) 1 applic DAILY@2000 TOPIC 09/21/19 20:00 12/16/19 19:59 09/26/19 21:08 Heparin Sodium (Porcine) (Heparin 5000 units/ml) 5,000 units EVERY 12 HOURS SUBQ 09/21/19 09:00 10/30/19 08:59 09/25/19 20:48 Hydromorphone HCl (Dilaudid) 0.5 mg Q3HR PRN IVP Severe Pain (Pain Scale 7-10) 09/23/19 00:30 09/30/19 00:29 09/27/19 06:16 Linezolid 300 ml @ 300 mls/hr Q12H IVPB 09/21/19 09:00 09/30/19 23:59 09/26/19 21:07 Magnesium Sulfate 100 ml @ 100 mls/hr Q1H IVPB 09/27/19 09:00 09/27/19 10:59 Multivitamins (Multivitamins) 1 tab DAILY ORAL 09/21/19 09:00 10/17/19 08:59 09/26/19 08:33 Pantoprazole (Protonix) 40 mg DAILY ORAL 09/21/19 09:00 10/15/19 08:59 09/26/19 08:33 Sodium Hypochlorite (Dakin's Quarter Strength) 1 applic BID TOPIC 09/21/19 09:00 10/19/19 11:59 09/26/19 08:45 Zinc Sulfate (Zinc Sulfate) 220 mg DAILY ORAL 09/21/19 09:00 10/01/19 08:59 09/26/19 08:44 Assessment/Plan Assessment/Plan IMPRESSION: 1. Chronic opioid dependence, possible some withdrawal associated tachycardia. 2. Hyponatremia. 3. Hypokalemia. 4. Severe protein-calorie malnutrition. 5. Mild coagulopathy. 6. Leukocytosis. 7. Anemia, possible sepsis. 8. Multiple antibiotic allergies. 9. sinus tachycardia PLAN care noted monitor drain IV antibiotics per ID ID recommendations pain management RX needed dc planning to home impression, plan, and exam edited and reviewed in detail care discussed with Thanh Garcia MD Sep 27, 2019 09:03
[2019-09-27] MEDS: Zinc Sulfate 220mg ORAL SCH (09:14)
[2019-09-27] MEDS: Ascorbic Acid 500mg tab ORAL SCH ×2 (09:14→17:28)
[2019-09-27] MEDS: Dakin's 0.125% Soln (Quarter Strength) 16oz TOPIC SCH ×2 (09:17→17:50)
--- NOTE | 2019-09-27 10:14 | Infectious Diseases Prog Note ---
Assessment/Plan Assessment/Plan A 1. pseudomonas & Enterobacter pneumonia. 2. Psoas, hip & lumbar abscess. MRSA in cultures 3. Paraplegia. 4. Leukocytosis is resolved 5. Anemia P 1. continue linezolid X 21 days 2. weekly CBC & BMP 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 Respiratory: Reports: no symptoms Gastrointestinal/Abdominal: Reports: no symptoms Genitourinary: Reports: no symptoms Allergies: Coded Allergies: CEFTRIAXONE (Verified Allergy, Intermediate, SOB, HR-140bpm, face swollen , pt became red, 10/24/15) CODEINE (Verified Allergy, Intermediate, SWELLING, 01/03/11) LATEX (Verified Allergy, Intermediate, SWELLING, 01/03/11) PIPERACILLIN (Verified Allergy, Intermediate, Itching, 08/29/15) 08/29/15 tolerates Ceftaroline TAZOBACTAM (Verified Allergy, Intermediate, Itching, 01/29/15) POLYMYXIN B (Verified Allergy, Mild, Rash, 04/08/16) Suspected allergy reported by VANCOMYCIN (Verified Allergy, Mild, 07/15/14) ASPARAGINASE (Verified Allergy, Unknown, 01/28/14) CEFUROXIME (Unverified Allergy, Unknown, 04/19/16) IRON (Verified Allergy, Unknown, 01/28/14) LATEX, NATURAL RUBBER (Unverified Allergy, Unknown, 06/18/16) Objective Vital Signs Last 24 Hour Vital Signs Date Time Temp Pulse Resp B/P (MAP) Pulse Ox O2 Delivery O2 Flow Rate FiO2 09/27/19 08:00 98.2 113 19 109/58 (75) 97 09/27/19 06:46 98.4 09/27/19 04:00 98.4 105 19 125/72 (89) 97 09/27/19 00:00 98.3 103 20 128/76 (93) 98 09/26/19 21:00 Room Air 09/26/19 20:00 98.7 108 20 116/67 (83) 98 09/26/19 19:17 96 Room Air 21 09/26/19 15:46 99.7 127 20 142/71 (94) 97 09/26/19 12:00 98.2 105 19 120/62 (81) 100 Height (Feet): 5 Height (Inches): 5.00 Weight (Pounds): 200 General Appearance: no acute distress HEENT: mucous membranes moist Respiratory/Chest: lungs clear Cardiovascular: tachycardia, other - PICC line Abdomen: soft, non tender, other - 3 drains in back Extremities: other - dependent edema Neurologic/Psychiatric: alert, oriented x 3, responsive Current Medications Medications (Trade) Dose Ordered Sig/Pineda Route PRN Reason Start Time Stop Time Status Last Admin Dose Admin Acetaminophen (Tylenol) 650 mg Q4H PRN ORAL Mild Pain (Pain Scale 1-3) 09/20/19 21:45 10/20/19 21:44 Al Hydroxide/Mg Hydroxide (Mylanta II) 30 ml Q6H PRN ORAL dyspepsia 09/20/19 21:45 10/15/19 21:44 Albuterol Sulfate (Proventil MDI) 2 puff Q4H PRN INH Shortness of Breath 09/20/19 23:00 12/14/19 18:59 Ascorbic Acid (Vitamin C) 500 mg TWICE A DAY ORAL 09/21/19 09:00 10/16/19 17:59 09/27/19 09:14 Chlorhexidine Gluconate (Nereida-Hex 2%) 1 applic DAILY@2000 TOPIC 09/21/19 20:00 12/16/19 19:59 09/26/19 21:08 Heparin Sodium (Porcine) (Heparin 5000 units/ml) 5,000 units EVERY 12 HOURS SUBQ 09/21/19 09:00 10/30/19 08:59 09/25/19 20:48 Hydromorphone HCl (Dilaudid) 0.5 mg Q3HR PRN IVP Severe Pain (Pain Scale 7-10) 09/23/19 00:30 09/30/19 00:29 09/27/19 09:45 Linezolid 300 ml @ 300 mls/hr Q12H IVPB 09/21/19 09:00 09/30/19 23:59 09/27/19 09:15 Magnesium Sulfate 100 ml @ 100 mls/hr Q1H IVPB 09/27/19 09:00 09/27/19 10:59 09/27/19 09:16 Multivitamins (Multivitamins) 1 tab DAILY ORAL 09/21/19 09:00 10/17/19 08:59 09/27/19 09:14 Pantoprazole (Protonix) 40 mg DAILY ORAL 09/21/19 09:00 10/15/19 08:59 09/27/19 09:14 Sodium Hypochlorite (Dakin's Quarter Strength) 1 applic BID TOPIC 09/21/19 09:00 10/19/19 11:59 09/27/19 09:17 Zinc Sulfate (Zinc Sulfate) 220 mg DAILY ORAL 09/21/19 09:00 10/01/19 08:59 09/27/19 09:14 Vaughn Juárez MD Sep 27, 2019 10:14
[2019-09-27 12:00] VITALS: BP 105/63
--- NOTE | 2019-09-27 12:55 | General Progress Note ---
Assessment/Plan Assessment/Plan: (1) Paraplegia (2) Spinal cord injury (3) Lumbar spine osteomyelitis discitis (4) Paraspinal abscess s/p CT guided placement of three percutaneous drainage catheters into right psoas muscle, posterior paraspinal, and left hip abscesses (5) Sacral decubitus ulcer (6) Intractable pain We will continue the Dilaudid an RX for Amidon 5/325mg was sent to patients pharmacy of choice in anticipation for discharge D/w Dr. Avina and he concurred. Subjective Date patient seen: Sep 27, 2019 Time patient seen: 12:00 - pm Allergies: Coded Allergies: CEFTRIAXONE (Verified Allergy, Intermediate, SOB, HR-140bpm, face swollen , pt became red, 10/24/15) CODEINE (Verified Allergy, Intermediate, SWELLING, 01/03/11) LATEX (Verified Allergy, Intermediate, SWELLING, 01/03/11) PIPERACILLIN (Verified Allergy, Intermediate, Itching, 08/29/15) 08/29/15 tolerates Ceftaroline TAZOBACTAM (Verified Allergy, Intermediate, Itching, 01/29/15) POLYMYXIN B (Verified Allergy, Mild, Rash, 04/08/16) Suspected allergy reported by MD VANCOMYCIN (Verified Allergy, Mild, 07/15/14) ASPARAGINASE (Verified Allergy, Unknown, 01/28/14) CEFUROXIME (Unverified Allergy, Unknown, 04/19/16) IRON (Verified Allergy, Unknown, 01/28/14) LATEX, NATURAL RUBBER (Unverified Allergy, Unknown, 06/18/16) Subjective Constitutional: Reports: weakness HEENT: Reports: no symptoms Cardiovascular: Reports: no symptoms Respiratory: Reports: no symptoms Gastrointestinal/Abdominal: Reports: no symptoms Genitourinary: Reports: no symptoms Neurologic/Psychiatric: Reports: weakness Endocrine: Reports: no symptoms Hematologic/Lymphatic: Reports: no symptoms Subjective Patient reports that the pain has been stable and tolerated on the Dilaudid as needed. No new complaint at this time. Objective Last 24 Hour Vital Signs Date Time Temp Pulse Resp B/P (MAP) Pulse Ox O2 Delivery O2 Flow Rate FiO2 09/27/19 12:00 98.1 108 19 105/63 (77) 97 09/27/19 09:00 Room Air 09/27/19 08:00 98.2 113 19 109/58 (75) 97 09/27/19 06:46 98.4 09/27/19 04:00 98.4 105 19 125/72 (89) 97 09/27/19 00:00 98.3 103 20 128/76 (93) 98 09/26/19 21:00 Room Air 09/26/19 20:00 98.7 108 20 116/67 (83) 98 09/26/19 19:17 96 Room Air 21 09/26/19 15:46 99.7 127 20 142/71 (94) 97 Intake and Output 09/26/19 09/27/19 19:00 07:00 Intake Total 300 ml 300 ml Output Total 35 ml Balance 265 ml 300 ml IV Total 300 ml 300 ml Drainage Total 35 ml Other 0 ml Height (Feet): 5 Height (Inches): 5.00 Weight (Pounds): 200 Objective General Appearance: no apparent distress, alert EENT: PERRL/EOMI, normal ENT inspection Neck: non-tender, normal alignment Cardiovascular: normal rate, regular rhythm Respiratory/Chest: decreased breath sounds Abdomen: other - colostomy Extremities: other - wounds noted Edema: mild edema Neurologic: alert, responsive Mike Ellis Sep 27, 2019 12:55
--- NOTE | 2019-09-27 14:30 | Progress Note ---
DATE: 09/27/2019 CARDIOLOGY PROGRESS NOTE SUBJECTIVE: No fever spikes. T max 99.7 yesterday. OBJECTIVE: VITAL SIGNS: Blood pressure parameters stable. Heart rate in the low 100s. LUNGS: Clear. CARDIAC: Regular rhythm, rapid rate. Normal S1, S2. ABDOMEN: Soft, mildly distended. EXTREMITIES: There is trace dependent edema. LABORATORY DATA: Magnesium yesterday was 1.5. Albumin is slightly better at 1.3. IMPRESSION: Slow progress. PLAN: 1. Additional magnesium replacement. 2. Antimicrobials. 3. Drains in place. 4. Expect decrease in heart rate as metabolic parameters and osmotic pressures improve. Karthik Parra M.D. DR: LAVONNE JOB#: [id number] CC:
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
[2019-09-27 16:00] VITALS: BP 118/78
[2019-09-27 20:00] VITALS: BP 135/75
[2019-09-27] MEDS: Dyna-Hex 2% Top Sol 2oz TOPIC SCH (20:30)
[2019-09-28] VITALS: BP 127/81
[2019-09-28 04:00] VITALS: BP 126/71
[2019-09-28] MEDS: Hydromorphone 0.5mg/0.5ml inj IVP PRN ×3 (04:03→12:25)
[2019-09-28 08:00] VITALS: BP 128/65
[2019-09-28] MEDS: Heparin 5000 units/ml inj SUBQ SCH (08:14)
[2019-09-28] MEDS: Dakin's 0.125% Soln (Quarter Strength) 16oz TOPIC SCH (08:28)
[2019-09-28] MEDS: Ascorbic Acid 500mg tab ORAL SCH (08:29)
[2019-09-28] MEDS: Zinc Sulfate 220mg ORAL SCH (08:29)
--- NOTE | 2019-09-28 09:00 | Pulmonology Progress Note ---
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 Gastrointestinal/Abdominal: Reports: no symptoms Skin: Reports: other - itching Musculoskeletal: Reports: pain - back Allergies: Coded Allergies: CEFTRIAXONE (Verified Allergy, Intermediate, SOB, HR-140bpm, face swollen , pt became red, 10/24/15) CODEINE (Verified Allergy, Intermediate, SWELLING, 01/03/11) LATEX (Verified Allergy, Intermediate, SWELLING, 01/03/11) PIPERACILLIN (Verified Allergy, Intermediate, Itching, 08/29/15) 08/29/15 tolerates Ceftaroline TAZOBACTAM (Verified Allergy, Intermediate, Itching, 01/29/15) POLYMYXIN B (Verified Allergy, Mild, Rash, 04/08/16) Suspected allergy reported by VANCOMYCIN (Verified Allergy, Mild, 07/15/14) ASPARAGINASE (Verified Allergy, Unknown, 01/28/14) CEFUROXIME (Unverified Allergy, Unknown, 04/19/16) IRON (Verified Allergy, Unknown, 01/28/14) LATEX, NATURAL RUBBER (Unverified Allergy, Unknown, 06/18/16) Subjective care noted drains remain in place dc planning hopefully today Objective Last 24 Hour Vital Signs Date Time Temp Pulse Resp B/P (MAP) Pulse Ox O2 Delivery O2 Flow Rate FiO2 09/28/19 04:33 98.2 09/28/19 04:00 98.1 113 22 126/71 (89) 97 09/28/19 00:00 98.2 119 22 127/81 (96) 99 09/27/19 21:00 Room Air 09/27/19 20:00 95 Room Air 21 09/27/19 20:00 98.2 127 24 135/75 (95) 95 09/27/19 16:00 97.8 119 18 118/78 (91) 98 09/27/19 12:00 98.1 108 19 105/63 (77) 97 09/27/19 09:00 Room Air Intake and Output 09/27/19 09/28/19 19:00 07:00 Intake Total 1340 ml 300 ml Output Total 450 ml 130 ml Balance 890 ml 170 ml Intake Oral 840 ml IV Total 500 ml 300 ml Stool Total 450 ml 0 ml Drainage Total 130 ml # Voids 2 Objective GENERAL: A well-developed female, weak overall HEENT: Otherwise negative. NECK: Supple. No adenopathy. LUNGS: no rhonchi or wheeze Moderate air entry. CARDIAC: RRR, otherwise regular without murmurs, rubs, or gallops. ABDOMEN: Soft, obese, and colostomy. EXTREMITIES: No cyanosis, clubbing, or edema. Significant atrophy of the lower limbs. NEUROLOGIC: Otherwise nonfocal with paraparesis. Current Medications Medications (Trade) Dose Ordered Sig/Pineda Route PRN Reason Start Time Stop Time Status Last Admin Dose Admin Acetaminophen (Tylenol) 650 mg Q4H PRN ORAL Mild Pain (Pain Scale 1-3) 09/20/19 21:45 10/20/19 21:44 Al Hydroxide/Mg Hydroxide (Mylanta II) 30 ml Q6H PRN ORAL dyspepsia 09/20/19 21:45 10/15/19 21:44 Albuterol Sulfate (Proventil MDI) 2 puff Q4H PRN INH Shortness of Breath 09/20/19 23:00 12/14/19 18:59 Ascorbic Acid (Vitamin C) 500 mg TWICE A DAY ORAL 09/21/19 09:00 10/16/19 17:59 09/28/19 08:29 Chlorhexidine Gluconate (Nereida-Hex 2%) 1 applic DAILY@2000 TOPIC 09/21/19 20:00 12/16/19 19:59 09/27/19 20:30 Heparin Sodium (Porcine) (Heparin 5000 units/ml) 5,000 units EVERY 12 HOURS SUBQ 09/21/19 09:00 10/30/19 08:59 09/27/19 20:30 Hydromorphone HCl (Dilaudid) 0.5 mg Q3HR PRN IVP Severe Pain (Pain Scale 7-10) 09/23/19 00:30 09/30/19 00:29 09/28/19 07:47 Linezolid 300 ml @ 300 mls/hr Q12H IVPB 09/21/19 09:00 09/30/19 23:59 09/28/19 08:29 Multivitamins (Multivitamins) 1 tab DAILY ORAL 09/21/19 09:00 10/17/19 08:59 09/28/19 08:30 Pantoprazole (Protonix) 40 mg DAILY ORAL 09/21/19 09:00 10/15/19 08:59 09/28/19 08:29 Sodium Hypochlorite (Dakin's Quarter Strength) 1 applic BID TOPIC 09/21/19 09:00 10/19/19 11:59 09/28/19 08:28 Zinc Sulfate (Zinc Sulfate) 220 mg DAILY ORAL 09/21/19 09:00 10/01/19 08:59 09/28/19 08:29 Assessment/Plan Assessment/Plan IMPRESSION: 1. Chronic opioid dependence, possible some withdrawal associated tachycardia. 2. Hyponatremia. 3. Hypokalemia. 4. Severe protein-calorie malnutrition. 5. Mild coagulopathy. 6. Leukocytosis. 7. Anemia, possible sepsis. 8. Multiple antibiotic allergies. 9. sinus tachycardia PLAN care noted monitor drain monitor heart rate; cardiology to clear IV antibiotics per ID- Linezolid ID recommendations- noted and set up pain management RX needed- sent to pharmacy by pain MD carrie planning to home impression, plan, and exam edited and reviewed in detail care discussed with Thanh Garcia MD Sep 28, 2019 09:00
--- NOTE | 2019-09-28 10:21 | General Progress Note ---
Assessment/Plan Assessment/Plan: (1) Paraplegia (2) Spinal cord injury (3) Lumbar spine osteomyelitis discitis (4) Paraspinal abscess s/p CT guided placement of three percutaneous drainage catheters into right psoas muscle, posterior paraspinal, and left hip abscesses (5) Sacral decubitus ulcer (6) Intractable pain We will continue the Dilaudid D/w Dr. Avina and he concurred. Subjective Date patient seen: Sep 28, 2019 Time patient seen: 10:00 - am Allergies: Coded Allergies: CEFTRIAXONE (Verified Allergy, Intermediate, SOB, HR-140bpm, face swollen , pt became red, 10/24/15) CODEINE (Verified Allergy, Intermediate, SWELLING, 01/03/11) LATEX (Verified Allergy, Intermediate, SWELLING, 01/03/11) PIPERACILLIN (Verified Allergy, Intermediate, Itching, 08/29/15) 08/29/15 tolerates Ceftaroline TAZOBACTAM (Verified Allergy, Intermediate, Itching, 01/29/15) POLYMYXIN B (Verified Allergy, Mild, Rash, 04/08/16) Suspected allergy reported by MD VANCOMYCIN (Verified Allergy, Mild, 07/15/14) ASPARAGINASE (Verified Allergy, Unknown, 01/28/14) CEFUROXIME (Unverified Allergy, Unknown, 04/19/16) IRON (Verified Allergy, Unknown, 01/28/14) LATEX, NATURAL RUBBER (Unverified Allergy, Unknown, 06/18/16) Subjective Constitutional: Reports: weakness HEENT: Reports: no symptoms Cardiovascular: Reports: no symptoms Respiratory: Reports: no symptoms Gastrointestinal/Abdominal: Reports: no symptoms Genitourinary: Reports: no symptoms Neurologic/Psychiatric: Reports: weakness Endocrine: Reports: no symptoms Hematologic/Lymphatic: Reports: no symptoms Subjective Patient is doing better and looking forward to being discharged home as per call taker. Pain has been stable on the Dilaudid. Objective Last 24 Hour Vital Signs Date Time Temp Pulse Resp B/P (MAP) Pulse Ox O2 Delivery O2 Flow Rate FiO2 09/28/19 04:33 98.2 09/28/19 04:00 98.1 113 22 126/71 (89) 97 09/28/19 00:00 98.2 119 22 127/81 (96) 99 09/27/19 21:00 Room Air 09/27/19 20:00 95 Room Air 21 09/27/19 20:00 98.2 127 24 135/75 (95) 95 09/27/19 16:00 97.8 119 18 118/78 (91) 98 09/27/19 12:00 98.1 108 19 105/63 (77) 97 Intake and Output 09/27/19 09/28/19 19:00 07:00 Intake Total 1340 ml 300 ml Output Total 450 ml 130 ml Balance 890 ml 170 ml Intake Oral 840 ml IV Total 500 ml 300 ml Stool Total 450 ml 0 ml Drainage Total 130 ml # Voids 2 Height (Feet): 5 Height (Inches): 5.00 Weight (Pounds): 200 Objective General Appearance: no apparent distress, alert EENT: PERRL/EOMI, normal ENT inspection Neck: non-tender, normal alignment Cardiovascular: normal rate, regular rhythm Respiratory/Chest: decreased breath sounds Abdomen: other - colostomy Extremities: other - wounds noted Edema: mild edema Neurologic: alert, responsive Mike Ellis Sep 28, 2019 10:21
--- NOTE | 2019-09-28 11:07 | Infectious Diseases Prog Note ---
"Assessment/Plan Assessment/Plan antibiotics : linezolid A 1. pseudomonas | enterobacter pneumonia. patient refused treatment 2. lumbar abscess, hip abscess s/p drainage with MRSA 3. Paraplegia. 4. Leukocytosis is improving. P 1. continue linezolid 20 more days iv 2. cbc, bmp, lft q weekly 3. will follow up cultures Subjective Constitutional: Denies: fever, chills Respiratory: Denies: shortness of breath, dry cough Gastrointestinal/Abdominal: Reports: nausea - mild; Denies: vomiting, diarrhea Musculoskeletal: Reports: pain - back Allergies: Coded Allergies: CEFTRIAXONE (Verified Allergy, Intermediate, SOB, HR-140bpm, face swollen , pt became red, 10/24/15) CODEINE (Verified Allergy, Intermediate, SWELLING, 01/03/11) LATEX (Verified Allergy, Intermediate, SWELLING, 01/03/11) PIPERACILLIN (Verified Allergy, Intermediate, Itching, 08/29/15) 08/29/15 tolerates Ceftaroline TAZOBACTAM (Verified Allergy, Intermediate, Itching, 01/29/15) POLYMYXIN B (Verified Allergy, Mild, Rash, 04/08/16) Suspected allergy reported by VANCOMYCIN (Verified Allergy, Mild, 07/15/14) ASPARAGINASE (Verified Allergy, Unknown, 01/28/14) CEFUROXIME (Unverified Allergy, Unknown, 04/19/16) IRON (Verified Allergy, Unknown, 01/28/14) LATEX, NATURAL RUBBER (Unverified Allergy, Unknown, 06/18/16) Objective Vital Signs Last 24 Hour Vital Signs Date Time Temp Pulse Resp B/P (MAP) Pulse Ox O2 Delivery O2 Flow Rate FiO2 09/28/19 04:33 98.2 09/28/19 04:00 98.1 113 22 126/71 (89) 97 09/28/19 00:00 98.2 119 22 127/81 (96) 99 09/27/19 21:00 Room Air 09/27/19 20:00 95 Room Air 21 09/27/19 20:00 98.2 127 24 135/75 (95) 95 09/27/19 16:00 97.8 119 18 118/78 (91) 98 09/27/19 12:00 98.1 108 19 105/63 (77) 97 Height (Feet): 5 Height (Inches): 5.00 Weight (Pounds): 200 Respiratory/Chest: lungs clear Cardiovascular: normal rate, regular rhythm, no gallop/murmur Abdomen: soft, non tender Extremities: no edema, other - left arm PICC Musculoskeletal: other - back 3 TISH drains Current Medications Medications (Trade) Dose Ordered Sig/Pineda Route PRN Reason Start Time Stop Time Status Last Admin Dose Admin Acetaminophen (Tylenol) 650 mg Q4H PRN ORAL Mild Pain (Pain Scale 1-3) 09/20/19 21:45 10/20/19 21:44 Al Hydroxide/Mg Hydroxide (Mylanta II) 30 ml Q6H PRN ORAL dyspepsia 09/20/19 21:45 10/15/19 21:44 Albuterol Sulfate (Proventil MDI) 2 puff Q4H PRN INH Shortness of Breath 09/20/19 23:00 12/14/19 18:59 Ascorbic Acid (Vitamin C) 500 mg TWICE A DAY ORAL 09/21/19 09:00 10/16/19 17:59 09/28/19 08:29 Chlorhexidine Gluconate (Nereida-Hex 2%) 1 applic DAILY@2000 TOPIC 09/21/19 20:00 12/16/19 19:59 09/27/19 20:30 Heparin Sodium (Porcine) (Heparin 5000 units/ml) 5,000 units EVERY 12 HOURS SUBQ 09/21/19 09:00 10/30/19 08:59 09/27/19 20:30 Hydromorphone HCl (Dilaudid) 0.5 mg Q3HR PRN IVP Severe Pain (Pain Scale 7-10) 09/23/19 00:30 09/30/19 00:29 09/28/19 07:47 Linezolid 300 ml @ 300 mls/hr Q12H IVPB 09/21/19 09:00 09/30/19 23:59 09/28/19 08:29 Multivitamins (Multivitamins) 1 tab DAILY ORAL 09/21/19 09:00 10/17/19 08:59 09/28/19 08:30 Pantoprazole (Protonix) 40 mg DAILY ORAL 09/21/19 09:00 10/15/19 08:59 09/28/19 08:29 Sodium Hypochlorite (Dakin's Quarter Strength) 1 applic BID TOPIC 09/21/19 09:00 10/19/19 11:59 09/28/19 08:28 Zinc Sulfate (Zinc Sulfate) 220 mg DAILY ORAL 09/21/19 09:00 10/01/19 08:59 09/28/19 08:29 Deng Reyes MD Sep 28, 2019 11:07"
[2019-09-28 12:00] VITALS: BP 117/65
[2019-09-28] MEDS ORDERED: LINEZOLID600 MG/300 IV (12:37)
[2019-09-28] MEDS ORDERED: NARCAN4 MG NS (12:53)
[2019-09-28] MEDS ORDERED: NORCO 5-325 TA1 EAC1 ORAL (12:53)
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
--- NOTE | 2019-10-08 16:07 | Diagnostic Imaging Report ---
CT GUIDED DRAINAGE CATHETER PLACEMENT Indication: Reason For Exam: ABSCESS Comparison: CT abdomen pelvis dated 09/05/2019 and 09/18/[address]-guided drain placement dated 08/29/2019. Dose: Total DLP 3309.70 Technique: Informed consent obtained prior to commencement of the procedure. Risks, including but not limited to hemorrhage, infection, organ damage discussed with patient, all questions answered. She indicated willingness to proceed. Moderate sedation was administered with supervised nursing. Sterile prepping and draping was performed using maximum sterile technique. The patient was initially positioned supine. Chop Saw Operator CT scan demonstrates multifocal abscesses, with safe approaches identified for the right psoas muscle abscess, the posterior paraspinal abscess, the left psoas muscle abscess, and the left hip abscess. Local anesthesia with one percent lidocaine. Under real-time CT guidance, an 18g needle was passed into the collection followed by a stiff wire, over which a 10.2 Fr Dominguez-Crockett drain was placed. Location was confirmed with aspiration of purulent material. The catheter was then secured to the skin with an adhesive device and a sterile dressing applied. Interval scanning demonstrated decompression of right psoas muscle abscess with slight decrease in size of left psoas muscle abscess, presumably due to communication between the two. Thus, additional drainage catheter placement was deferred. The patient was then placed prone. Local anesthesia with one percent lidocaine was administered to the posterior paraspinal soft tissues. Under real-time CT guidance, an 18g needle was passed into the collection followed by a stiff wire, over which a 8 Fr Dominguez-Crockett drain was placed. Location was confirmed with aspiration of serosanguinous material. The catheter was then secured to the skin with an adhesive device and a sterile dressing applied. Local anesthesia with one percent lidocaine was administered to the left hip. Under real-time CT guidance, an 18g needle was passed into the collection followed by a stiff wire, over which a 8 Fr Dominguez-Crockett drain was placed. Location was confirmed with aspiration of scant serosanguinous material. The catheter was then secured to the skin with an adhesive device and a sterile dressing applied. Findings: Final CT images demonstrate near complete resolution of right psoas muscle abscess, with slight decompression of contralateral left psoas muscle abscess with pigtail in satisfactory position. ; partial drainage of posterior paravertebral abscess; partial drainage of left hip abscess with pigtail in satisfactory position. Impression: Successful CT guided placement of pigtail drainage catheter into right psoas abscess, posterior paraspinal abscess, and left hip abscess. Drainage catheter placement into left psoas abscess deferred due to some decompression with aspiration of contralateral psoas abscess. Plan: Abscess drains to accordion drain. Consider reimaging for removal or placement of additional drains in 2-3 days.
== END 2019-09-28 13:25 | disposition home or self-care (01) | DRG 871 ==
LOC: EMR 19:48 → 2E 19:54 → EDBEDREQ 09-15 04:43 → 4E 09-20 21:19
PROC: B518ZZA Fluoroscopy of Superior Vena Cava, Guidance (ICD-10-PCS; principal; 2019-09-17)
PROC: 02HV33Z Insertion of Infusion Device into Superior Vena Cava, Percutaneous Approach (ICD-10-PCS; principal; 2019-09-17)
PROC: 0K9P30Z Drainage of Left Hip Muscle with Drainage Device, Percutaneous Approach (ICD-10-PCS; 2019-09-21)
PROC: 0K9Q30Z Drainage of Right Upper Leg Muscle with Drainage Device, Percutaneous Approach (ICD-10-PCS; 2019-09-21)
DX: A41.9 Sepsis, unspecified organism (principal); L89.314 Pressure ulcer of right buttock, stage 4; L89.154 Pressure ulcer of sacral region, stage 4; E43 Unspecified severe protein-calorie malnutrition; L89.894 Pressure ulcer of other site, stage 4; R65.21 Severe sepsis with septic shock; J15.6 Pneumonia due to other Gram-negative bacteria; J15.1 Pneumonia due to Pseudomonas; I50.31 Acute diastolic (congestive) heart failure; F11.20 Opioid dependence, uncomplicated; G82.20 Paraplegia, unspecified; M46.26 Osteomyelitis of vertebra, lumbar region; D68.9 Coagulation defect, unspecified; E87.1 Hypo-osmolality and hyponatremia; E87.2 Acidosis; M60.09 Infective myositis, multiple sites; E86.0 Dehydration; E87.6 Hypokalemia; Z68.32 Body mass index [BMI] 32.0-32.9, adult; R00.0 Tachycardia, unspecified; Z68.33 Body mass index [BMI] 33.0-33.9, adult; D64.9 Anemia, unspecified; E11.9 Type 2 diabetes mellitus without complications; Z93.3 Colostomy status; M46.46 Discitis, unspecified, lumbar region; E87.8 Other disorders of electrolyte and fluid balance, not elsewhere classified; B95.62 Methicillin resistant Staphylococcus aureus infection as the cause of diseases classified elsewhere; E83.42 Hypomagnesemia; I11.0 Hypertensive heart disease with heart failure
CPT/HCPCS: 36415; 36569; 71045; 74177; 75989; 76937; 80048; 80053; 83605; 83735; 83880; 84100; 85007; 85025; 85610; 85651; 85730; 86140; 86850; 86900; 86901; 86920; 87040; 87070; 87075; 87081; 87181; 87205; 93005; 96361; 96374; 96375; 96376; 99285; J2250; J2405; J7030; J8499

== ENCOUNTER 2019-10-07 16:38 | Inpatient (IN) | payer MEDICARE, OTHER ==
[~2019-10-07] VITALS: Ht 165.1 cm; Wt 108.4 kg
[~2019-10-07 16:38] MED LIST changes: +LINEZOLID600 MG/300 IV; +NARCAN4 MG NS
[2019-10-07] MEDS ORDERED: HYDROmorphone 2 MG in NS 55 ML IV ONE ×2 (17:15→17:30)
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
[2019-10-07 17:35] VITALS: BP 125/67
[2019-10-07] MEDS ORDERED: Acetaminophen Soln 160mg/5ml ORAL ONE (17:45)
--- NOTE | 2019-10-07 18:01 | Diagnostic Imaging Report ---
EXAM: XR Chest, 1 View CLINICAL HISTORY: SOB TECHNIQUE: Frontal view of the chest. COMPARISON: Chest x-ray dated 07/30/2019 FINDINGS: Lungs: Question airspace opacities seen throughout both lungs which may be inflammatory or infectious. Findings are limited secondary to overlying soft tissues. Pleural space: Unremarkable. Heart: Unremarkable. Mediastinum: Unremarkable. Bones/joints: Unremarkable. IMPRESSION: Question airspace opacities seen throughout both lungs which may be inflammatory or infectious. Findings are limited secondary to overlying soft tissues.
[2019-10-07 18:16] LABS: BASOPHILS % (AUTO) 0.8 % (0.0-2.0); EOSINOPHILS % (AUTO) 0.9 % (0.0-3.0); HEMATOCRIT 29.9 % (37.0-47.0); HEMOGLOBIN 9.8 G/DL (12.0-16.0); LYMPHOCYTES % (AUTO) 31.6 % (20.0-45.0); MEAN CORPUSCULAR VOLUME 90 FL (80-99); MONOCYTES % (AUTO) 4.6 % (1.0-10.0); NEUTROPHILS % (AUTO) 62.1 % (45.0-75.0); PLATELET COUNT 397 K/UL (150-450); RED BLOOD COUNT 3.31 M/UL (4.20-5.40); RED CELL DISTRIBUTION WIDTH 16.5 % (11.6-14.8); WHITE BLOOD COUNT 9.1 K/UL (4.8-10.8)
[2019-10-07 18:18] LABS: ANION GAP 8 mmol/L (5-15); BLOOD UREA NITROGEN 14 mg/dL (7-18); CALCIUM 8.4 MG/DL (8.5-10.1); CARBON DIOXIDE 26 MMOL/L (21-32); CHLORIDE 97 MMOL/L (98-107); POTASSIUM 3.9 MMOL/L (3.5-5.1); SODIUM 131 MMOL/L (136-145)
[2019-10-07 18:31] LABS: ALANINE AMINOTRANSFERASE 44 U/L (12-78); ALBUMIN/GLOBULIN RATIO 0.3 (1.0-2.7); ALKALINE PHOSPHATASE 226 U/L (46-116); ASPARTATE AMINO TRANSFERASE 25 U/L (15-37); BILIRUBIN,TOTAL 0.4 MG/DL (0.2-1.0); CKMB < 0.5 NG/ML (0.0-3.6); CREATINE KINASE 13 U/L (26-308)
[2019-10-07 19:07] VITALS: BP 130/75
[2019-10-08] VITALS: BP 96/53
[2019-10-08 04:00] VITALS: BP 103/65
[2019-10-08] MEDS ORDERED: LORazepam 1mg tab ORAL PRN (06:00)
[2019-10-08] MEDS: HYDROmorphone 1mg/ml Carpuject IVP PRN ×3 (06:41→14:32)
[2019-10-08 08:00] VITALS: BP 114/59
[2019-10-08 10:07] LABS: BASOPHILS % (AUTO) 0.6 % (0.0-2.0); EOSINOPHILS % (AUTO) 1.8 % (0.0-3.0); HEMATOCRIT 27.2 % (37.0-47.0); HEMOGLOBIN 8.6 G/DL (12.0-16.0); MEAN CORPUSCULAR VOLUME 92 FL (80-99); MONOCYTES % (AUTO) 5.9 % (1.0-10.0); NEUTROPHILS % (AUTO) 68.7 % (45.0-75.0); PLATELET COUNT 307 K/UL (150-450); RED BLOOD COUNT 2.96 M/UL (4.20-5.40); RED CELL DISTRIBUTION WIDTH 15.9 % (11.6-14.8); WHITE BLOOD COUNT 5.2 K/UL (4.8-10.8)
[2019-10-08 10:31] LABS: ANION GAP 8 mmol/L (5-15); BLOOD UREA NITROGEN 11 mg/dL (7-18); CALCIUM 8.3 MG/DL (8.5-10.1); CARBON DIOXIDE 26 MMOL/L (21-32); CHLORIDE 100 MMOL/L (98-107); CREATININE 0.8 MG/DL (0.55-1.30); SODIUM 134 MMOL/L (136-145)
[2019-10-08] MEDS ORDERED: Omnipaque-300 100ml vial INJ PRN (11:15)
[2019-10-08 12:00] VITALS: BP 115/44
--- NOTE | 2019-10-08 13:37 | Diagnostic Imaging Report ---
Indication: History of hip abscess, status post catheter drainage. Technique: Noncontrast spiral acquisitions obtained through the pelvis. Multiplanar reconstructions generated. Total dose length product 489 mGycm. CTDIvol(s) 13 mGy. Dose reduction achieved using automated exposure control Comparison: 09/18/2019; also images from drainage procedure dated 09/21/2019 Findings: Interim placement of a pigtail drainage catheter within the left hip. A posterior approach. The previously demonstrated peripheral fluid has largely resolved. The more central fluid has likewise largely resolved, although there may be a small amount of residual anteriorly. There are a few small gas bubbles adjacent to the catheter as well as in the anterior hip joint region. As previously, extensive abnormal soft tissue and extensive destructive change of the left hip joint are noted. On the right, there are extensive destructive changes of the right hip and acetabulum. A small amount of fluid and gas is seen superior and anterior to what remains of the proximal femur. Amount of fluid is unchanged. The amount of gas has decreased. The previously demonstrated left superficial peroneal fluid collection is no longer evident. Previously demonstrated small right perineal gas and fluid collection no longer contains gas and therefore appears to be a flap of tissue where the fluid was previously. Advanced retrosacral rock retrococcygeal decubitus changes are noted. There does appear to be decreased gas in the retrosacral region. Interim placement of a pigtail drainage catheter via a right lower quadrant anterolateral approach. Previously demonstrated right iliopsoas collection with interim decompression of that collection. There is probably persistent fluid within the left psoas muscle, however. The superior extent of this is not included in the imaging volume. Again demonstrated is a complex left-sided ventral hernia. Again demonstrated are advanced bony destructive changes of the pelvis. Again demonstrated are gallstones. 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 The amount of gas has decreased since the previous study. Interim drainage of previously demonstrated right psoas abscess, with apparent complete emptying. Persistent left psoas collection. Previously demonstrated superficial peroneal fluid collections are no longer evident Persistent retrosacral/retrococcygeal decubitus changes. Overall gas volume decreased within these. Other stable findings as described. The CT scanner at [facility] is accredited by the [employer] and the scans are performed using protocols designed to limit radiation exposure to as low as reasonably achievable to attain images of sufficient resolution adequate for diagnostic evaluation.
--- NOTE | 2019-10-08 14:00 | Consultation ---
DATE OF CONSULTATION: 10/08/2019 INFECTIOUS DISEASE CONSULTATION CONSULTING PHYSICIAN: Deng Reyes MD. REFERRING PHYSICIAN: Thanh Glover MD. REASON FOR CONSULTATION: Back abscess. 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 She has also been having some fevers. She has only been able to do once a day IV linezolid with Home Health. She has not been able to do the second dose at home and she refused to come into the hospital. An Infectious Disease consultation has been obtained for antibiotics. PAST MEDICAL HISTORY: 1. History of paraplegia. 2. Back abscess with MRSA. 3. History of asthma. 4. History of colostomy. SOCIAL HISTORY: She does not smoke, drink, or use drugs. FAMILY HISTORY: Noncontributory. REVIEW OF SYSTEMS: RESPIRATORY: She had fevers. No cough. No shortness of breath or chest pain. CARDIAC: No chest pain. No palpitation. No dizziness. No syncope. GASTROINTESTINAL: No nausea. No vomiting. No abdominal pain or diarrhea. MUSCULOSKELETAL: She complains of back pain. MEDICATIONS: As an inpatient, she is on IV linezolid, Protonix, Dilaudid, lorazepam, Tylenol, Mylanta. ALLERGIES: 1. Asparaginase. 2. Ceftriaxone. 3. Cefuroxime. 4. Codeine. 5. Iron. 6. Latex. 7. Natural rubber. 8. Zosyn. 9. Polymyxin. 10. Vancomycin. PHYSICAL EXAMINATION: VITAL SIGNS: Temperature of 97.9, T-max of 102, pulse of 116, respiratory rate 20, and blood pressure 114/59. O2 saturation 100% on room air. HEENT: Pupils are equally reactive to light and accommodation. Mouth appears clean without thrush. NECK: Supple. No adenopathy. No JVD. CARDIOVASCULAR: Regular rate and rhythm. No murmurs. LUNGS: Clear to auscultation bilaterally. No crackles. No wheezes. ABDOMEN: Soft and nontender. No organomegaly. Ostomy noted. BACK: Drain noted. EXTREMITIES: No cyanosis, no clubbing, no edema. Left arm PICC line noted. LABORATORY AND DIAGNOSTIC DATA: White count 5.2, hemoglobin 8.6, hematocrit 27.2, MCV 92, platelet count of 307,000, neutrophils of 68%. Sodium 134, potassium 4, chloride 100, bicarb 26, BUN 11, creatinine 0.8. Glucose 143. Calcium 8.3. Total bilirubin 0.4, AST 25, ALT 44, alkaline phosphatase 226. CK of 13, CK-MB less than 0.5. Troponin 0. Total protein 7.9. Albumin of 2. Chest x-ray showing airspace opacity seen throughout both lungs, which may be inflammatory. ASSESSMENT: 1. This is a 44-year-old lady with history of paraplegia, colostomy, and back abscesses with MRSA, who comes in with fevers after drain fell out. Should be concern regarding persistent lumbar abscess. 2. Paraplegia. 3. History of colostomy. 4. History of asthma. PLAN: 1. Continue IV linezolid. 2. Consider drain replacement. 3. We will order CT abdomen and pelvis. 4. We will follow up cultures and adjust antibiotics accordingly. I would like to thank Dr. Glover for this consultation. Deng Reyes M.D. DR: REX JOB#: [id number] CC:
--- NOTE | 2019-10-08 14:00 | History and Physical Report ---
DATE OF ADMISSION: 10/07/2019 REASON FOR ADMISSION: Tachycardia, possible recurrent abscess. HISTORY OF PRESENT ILLNESS: This is an unfortunate 44-year-old female, discharged approximately 10 days ago. The patient presents with fevers up to 102. The patient with chronic wounds on her back and extremities, also with significant pelvic abscesses and multiple drains. The patient recently had another drain dislodged and increasing pain and fever. The patient has not noticed any drainage. The patient had been refusing her second dose of linezolid. From discussion with Home Health, the patient has been receiving IV antibiotics at home and overall did improve, but now returns with significant tachycardia and fevers. PAST MEDICAL HISTORY: Notable for the above nonhealing wounds, paraplegia, significant atrophy, colostomy, multiple pelvic abscesses, sepsis, history of sinus tachycardia, history of hypertension, history of diabetes, history of significant protein-calorie malnutrition, anemia, status post transfusions. MEDICATIONS: Reviewed. ALLERGIES: Reviewed. SOCIAL HISTORY: Lives at home with caregivers, fully able to make her own decisions. REVIEW OF SYSTEMS: All 10 points reviewed and otherwise negative with the exception of the above. PHYSICAL EXAMINATION: GENERAL: A well-developed female, chronically ill appearing. VITAL SIGNS: Reviewed. T-max on admission 102, now afebrile, heart rate 124, blood pressure 103/65, sats 100%, respiratory rate 20. HEENT: Negative. NECK: Supple. Extraocular movements are grossly intact. LUNGS: Fairly clear and symmetric. CARDIAC: S1, S2. Tachycardic without murmurs, rubs, gallops. ABDOMEN: Soft, nontender, obese. Colostomy in place. EXTREMITIES: With significant lower extremity atrophy. Drains in place. LABORATORY DATA: Reviewed. Sodium 131, otherwise electrolytes normal. Albumin is reduced to 2. CBC with a hemoglobin of 9.8. IMPRESSION: 1. Fever with concern for recurrent sepsis. 2. Chest x-ray, pulmonary changes, consider pneumonia. 3. Significant sinus tachycardia. 4. Anemia with history of transfusion. 5. Chronic wounds. 6. Chronic pain. RECOMMENDATIONS: Supportive care. IV hydration. IV antibiotics. ID evaluation. Cardiology evaluation. Monitor clinically for change. Repeat pelvic CT and replacement of drain if needed. Surgical evaluation, following disposition, pending re-evaluation. Thanh Glover M.D. DR: YASSINE JOB#: [id number] CC: MADI
[2019-10-08] MEDS ORDERED: NS 1,000 ML IVPB ONE (14:15)
[2019-10-08] MEDS ORDERED: Sodium Chloride 2,900 ML IVLG ONE (14:30)
[2019-10-08 16:00] VITALS: BP 125/58
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
[2019-10-08 20:00] VITALS: BP 111/68
[2019-10-08] MEDS: Metoprolol Tartrate 50mg tab ORAL SCH (21:00)
[2019-10-08] MEDS ORDERED: Acetaminophen 650mg/20.3ml GT PRN (21:30)
[2019-10-08] MEDS ORDERED: Acetaminophen 650mg/20.3ml ORAL PRN (21:45)
[2019-10-09] VITALS: BP 92/57
--- NOTE | 2019-10-09 00:44 | Consultation ---
DATE OF CONSULTATION: 10/08/2019 REFERRING PHYSICIAN: Thanh Glover MD REASON FOR CONSULTATION: Tachycardia. HISTORY: This is a 44-year-old female. She has a history of recurring abscesses of the pelvis with multiple drains in place and has been on outpatient IV antimicrobials for the past 10 days. She developed fevers yesterday and returned to the emergency room. She notes that some of the drain tubes dislodged. She has had increasing pain and fevers. I have been asked to address her tachycardiac. PAST MEDICAL HISTORY: Paraplegia, pelvic abscesses, history of colostomy, hypertension, insulin-requiring diabetes mellitus, anemia of chronic disease, protein-calorie malnutrition, asthma. ALLERGIES: Multiple and reviewed in the [facility] system. SOCIAL HISTORY: Negative for smoking, alcohol, or substance abuse. REVIEW OF SYSTEMS: Prior echocardiogram approximately a month ago revealed normal ejection fraction. No evidence of valvular disease or endocarditis. She has been on beta-bob due to her rapid heart rate in the past and nonsustained atrial ectopy. PHYSICAL EXAMINATION: VITAL SIGNS: Temperature max 103.2, blood pressure 114/59, heart rate 116, respiratory rate 20. At times, heart rates are up to 130. HEENT: Conjunctivae pink. Oropharynx clear. NECK: Supple. No adenopathy. LUNGS: Clear. CARDIAC: Regular rhythm, rapid rate. Normal S1, S2 with no murmur. ABDOMEN: Soft, nontender. Ostomy noted. Drain sites intact. EXTREMITIES: PICC line in the left upper. No edema or muscle atrophy seen. LABORATORY AND DIAGNOSTIC DATA: White count 5.8, hemoglobin 8.6. BUN 11, creatinine 0.8. Lactic acid 2.1. Albumin 2.0. Potassium 4, sodium 134, bicarb 26. Chest x-ray reveals bilateral air space disease. EKG reveals sinus tachycardia. IMPRESSION: 1. Sepsis. 2. Anemia. 3. Fevers. 4. Sinus tachycardia, physiologically appropriate. 5. Abscesses with MRSA. 6. Colostomy. 7. Paraplegia. 8. History of asthma. 9. Hypovolemia and dehydration. PLAN: 1. Antimicrobials. 2. Drain replacement. 3. Cautious use of beta-bob. 4. Volume support with saline. 5. DVT prophylaxis. 6. Antipyretics. Karthik Ángela Parra DR: RANDAL JOB#: [id number] CC:
[2019-10-09] MEDS: HYDROmorphone 1mg/ml Carpuject IVP PRN ×5 (03:00→23:06)
[2019-10-09 04:00] VITALS: BP 106/48
[2019-10-09 05:50] LABS: BASOPHILS % (AUTO) 0.7 % (0.0-2.0); EOSINOPHILS % (AUTO) 0.1 % (0.0-3.0); HEMATOCRIT 27.4 % (37.0-47.0); HEMOGLOBIN 8.7 G/DL (12.0-16.0); LYMPHOCYTES % (AUTO) 15.9 % (20.0-45.0); MEAN CORPUSCULAR VOLUME 92 FL (80-99); MONOCYTES % (AUTO) 4.4 % (1.0-10.0); NEUTROPHILS % (AUTO) 78.9 % (45.0-75.0); PLATELET COUNT 260 K/UL (150-450); RED BLOOD COUNT 2.98 M/UL (4.20-5.40); RED CELL DISTRIBUTION WIDTH 15.7 % (11.6-14.8); WHITE BLOOD COUNT 8.9 K/UL (4.8-10.8)
[2019-10-09 06:33] LABS: ALANINE AMINOTRANSFERASE 32 U/L (12-78); ALBUMIN 1.7 G/DL (3.4-5.0); ALBUMIN/GLOBULIN RATIO 0.3 (1.0-2.7); ALKALINE PHOSPHATASE 198 U/L (46-116); ASPARTATE AMINO TRANSFERASE 25 U/L (15-37); BILIRUBIN,TOTAL 0.6 MG/DL (0.2-1.0); BLOOD UREA NITROGEN 10 mg/dL (7-18); CARBON DIOXIDE 22 MMOL/L (21-32); CREATININE 0.8 MG/DL (0.55-1.30)
[2019-10-09 07:30] LABS: CHLORIDE 99 MMOL/L (98-107); POTASSIUM 3.7 MMOL/L (3.5-5.1); SODIUM 133 MMOL/L (136-145)
[2019-10-09 08:00] VITALS: BP 97/64
[2019-10-09] MEDS: Metoprolol Tartrate 50mg tab ORAL SCH ×2 (08:29→21:15)
--- NOTE | 2019-10-09 08:39 | General Progress Note ---
Assessment/Plan Assessment/Plan: IMPRESSION: 1. Fever with concern for recurrent sepsis. 2. Chest x-ray, pulmonary changes, consider pneumonia. 3. Significant sinus tachycardia. 4. Anemia with history of transfusion. 5. Chronic wounds. 6. Chronic pain. PLAN rate noted cardiology discussed antibiotics CT abdomen with contrast may need repeat drainage surgical follow up pain control impression, plan, and exam edited and reviewed in detail care discussed with RN Subjective Allergies: Coded Allergies: CEFTRIAXONE (Verified Allergy, Intermediate, SOB, HR-140bpm, face swollen , pt became red, 10/24/15) CODEINE (Verified Allergy, Intermediate, SWELLING, 01/03/11) LATEX (Verified Allergy, Intermediate, SWELLING, 01/03/11) PIPERACILLIN (Verified Allergy, Intermediate, Itching, 08/29/15) 08/29/15 tolerates Ceftaroline TAZOBACTAM (Verified Allergy, Intermediate, Itching, 01/29/15) POLYMYXIN B (Verified Allergy, Mild, Rash, 04/08/16) Suspected allergy reported by VANCOMYCIN (Verified Allergy, Mild, 07/15/14) ASPARAGINASE (Verified Allergy, Unknown, 01/28/14) CEFUROXIME (Unverified Allergy, Unknown, 04/19/16) IRON (Verified Allergy, Unknown, 01/28/14) LATEX, NATURAL RUBBER (Unverified Allergy, Unknown, 06/18/16) Objective Last 24 Hour Vital Signs Date Time Temp Pulse Resp B/P (MAP) Pulse Ox O2 Delivery O2 Flow Rate FiO2 10/09/19 08:29 115 97/64 10/09/19 08:00 99.1 115 20 97/64 (75) 97 10/09/19 04:00 124 10/09/19 04:00 Room Air 10/09/19 04:00 100.0 130 18 106/48 (67) 100 10/09/19 00:00 100.8 125 20 92/57 (69) 97 10/09/19 00:00 Room Air 10/09/19 00:00 128 10/08/19 22:15 102.9 10/08/19 21:00 140 111/68 10/08/19 20:00 140 10/08/19 20:00 103.1 140 20 111/68 (82) 99 10/08/19 20:00 Room Air 10/08/19 16:00 137 10/08/19 16:00 103.6 143 20 125/58 (80) 99 10/08/19 16:00 Room Air 10/08/19 15:02 97.9 10/08/19 12:00 Room Air 10/08/19 12:00 128 10/08/19 12:00 97.9 116 21 115/44 (67) 99 10/08/19 09:00 Room Air Intake and Output 10/08/19 10/09/19 18:59 06:59 Intake Total 450 ml 1560 ml Output Total 675 ml 350 ml Balance -225 ml 1210 ml Intake Oral 450 ml 240 ml IV Total 1320 ml Output Stool Total 450 ml 350 ml Drainage Total 225 ml # Voids 2 Laboratory Tests 10/08/19 09:40: White Blood Count 5.2, Red Blood Count 2.96L, Hemoglobin 8.6L, Hematocrit 27.2L , Mean Corpuscular Volume 92, Mean Corpuscular Hemoglobin 29.0, Mean Corpuscular Hemoglobin Concent 31.6L, Red Cell Distribution Width 15.9H, Platelet Count 307, Mean Platelet Volume 5.7L, Neutrophils (%) (Auto) 68.7, Lymphocytes (%) (Auto) 23.0, Monocytes (%) (Auto) 5.9, Eosinophils (%) (Auto) 1.8, Basophils (%) (Auto) 0.6, Sodium Level 134L, Potassium Level 4.0, Chloride Level 100, Carbon Dioxide Level 26, Anion Gap 8, Blood Urea Nitrogen 11, Creatinine 0.8, Estimat Glomerular Filtration Rate > 60, Glucose Level 143H, Calcium Level 8.3L 10/09/19 04:00: White Blood Count 8.9#, Red Blood Count 2.98L, Hemoglobin 8.7L, Hematocrit 27.4L , Mean Corpuscular Volume 92, Mean Corpuscular Hemoglobin 29.1, Mean Corpuscular Hemoglobin Concent 31.6L, Red Cell Distribution Width 15.7H, Platelet Count 260, Mean Platelet Volume 5.8L, Neutrophils (%) (Auto) 78.9H, Lymphocytes (%) (Auto) 15.9L, Monocytes (%) (Auto) 4.4, Eosinophils (%) (Auto) 0.1, Basophils (%) (Auto) 0.7, Sodium Level 133L, Potassium Level 3.7, Chloride Level 99, Carbon Dioxide Level 22, Blood Urea Nitrogen 10, Creatinine 0.8, Estimat Glomerular Filtration Rate > 60, Glucose Level 166H, Calcium Level 8.0L , Total Bilirubin 0.6, Aspartate Amino Transf (AST/SGOT) 25, Alanine Aminotransferase (ALT/SGPT) 32, Alkaline Phosphatase 198H, Total Protein 7.1, Albumin 1.7L, Globulin 5.4, Albumin/Globulin Ratio 0.3L Height (Feet): 5 Height (Inches): 5.00 Weight (Pounds): 216 Objective GENERAL: A well-developed female, chronically ill appearing. NAD HEENT: Negative. NECK: Supple. Extraocular movements are grossly intact. LUNGS: Fairly clear and symmetric. CARDIAC: S1, S2. Tachycardic without murmurs, rubs, gallops. ABDOMEN: Soft, nontender, obese. Colostomy in place. EXTREMITIES: With significant lower extremity atrophy. Drains in place. Thanh Glover MD Oct 09, 2019 08:39
--- NOTE | 2019-10-09 10:49 | Infectious Diseases Prog Note ---
Assessment/Plan Assessment/Plan antibiotics : linezolid A 1. lumbar abscess 2. fever 3. paraplegia 4. diabetes mellitus 5. hypertension P 1. continue linezolid 2. CT abdomen with contrast pending 3. will follow up cultures Subjective Constitutional: Denies: fever, chills Respiratory: Reports: dry cough; Denies: shortness of breath Gastrointestinal/Abdominal: Reports: nausea, vomiting - yesterday, diarrhea Musculoskeletal: Reports: pain Allergies: Coded Allergies: CEFTRIAXONE (Verified Allergy, Intermediate, SOB, HR-140bpm, face swollen , pt became red, 10/24/15) CODEINE (Verified Allergy, Intermediate, SWELLING, 01/03/11) LATEX (Verified Allergy, Intermediate, SWELLING, 01/03/11) PIPERACILLIN (Verified Allergy, Intermediate, Itching, 08/29/15) 08/29/15 tolerates Ceftaroline TAZOBACTAM (Verified Allergy, Intermediate, Itching, 01/29/15) POLYMYXIN B (Verified Allergy, Mild, Rash, 04/08/16) Suspected allergy reported by VANCOMYCIN (Verified Allergy, Mild, 07/15/14) ASPARAGINASE (Verified Allergy, Unknown, 01/28/14) CEFUROXIME (Unverified Allergy, Unknown, 04/19/16) IRON (Verified Allergy, Unknown, 01/28/14) LATEX, NATURAL RUBBER (Unverified Allergy, Unknown, 06/18/16) Objective Last 24 Hour Vital Signs Date Time Temp Pulse Resp B/P (MAP) Pulse Ox O2 Delivery O2 Flow Rate FiO2 10/09/19 08:29 115 97/64 10/09/19 08:00 99.1 115 20 97/64 (75) 97 10/09/19 08:00 Room Air 10/09/19 07:39 116 10/09/19 04:00 124 10/09/19 04:00 Room Air 10/09/19 04:00 100.0 130 18 106/48 (67) 100 10/09/19 00:00 100.8 125 20 92/57 (69) 97 10/09/19 00:00 Room Air 10/09/19 00:00 128 10/08/19 22:15 102.9 10/08/19 21:00 140 111/68 10/08/19 20:00 140 10/08/19 20:00 103.1 140 20 111/68 (82) 99 10/08/19 20:00 Room Air 10/08/19 16:00 137 10/08/19 16:00 103.6 143 20 125/58 (80) 99 10/08/19 16:00 Room Air 10/08/19 15:02 97.9 10/08/19 12:00 Room Air 10/08/19 12:00 128 10/08/19 12:00 97.9 116 21 115/44 (67) 99 Height (Feet): 5 Height (Inches): 5.00 Weight (Pounds): 216 Respiratory/Chest: lungs clear Cardiovascular: normal rate, regular rhythm, no gallop/murmur Abdomen: soft, non tender, other - 2 TISH drains Extremities: no edema Microbiology Date/Time Source Procedure Growth Status 10/07/19 17:47 Blood Blood Culture - Preliminary NO GROWTH AFTER 24 HOURS Resulted 10/07/19 17:32 Blood Blood Culture - Preliminary NO GROWTH AFTER 24 HOURS Resulted Laboratory Tests Test 10/09/19 04:00 White Blood Count 8.9 K/UL (4.8-10.8) # Red Blood Count 2.98 M/UL (4.20-5.40) L Hemoglobin 8.7 G/DL (12.0-16.0) L Hematocrit 27.4 % (37.0-47.0) L Mean Corpuscular Volume 92 FL (80-99) Mean Corpuscular Hemoglobin 29.1 PG (27.0-31.0) Mean Corpuscular Hemoglobin Concent 31.6 G/DL (32.0-36.0) L Red Cell Distribution Width 15.7 % (11.6-14.8) H Platelet Count 260 K/UL (150-450) Mean Platelet Volume 5.8 FL (6.5-10.1) L Neutrophils (%) (Auto) 78.9 % (45.0-75.0) H Lymphocytes (%) (Auto) 15.9 % (20.0-45.0) L Monocytes (%) (Auto) 4.4 % (1.0-10.0) Eosinophils (%) (Auto) 0.1 % (0.0-3.0) Basophils (%) (Auto) 0.7 % (0.0-2.0) Sodium Level 133 MMOL/L (136-145) L Potassium Level 3.7 MMOL/L (3.5-5.1) Chloride Level 99 MMOL/L (98-107) Carbon Dioxide Level 22 MMOL/L (21-32) Blood Urea Nitrogen 10 mg/dL (7-18) Creatinine 0.8 MG/DL (0.55-1.30) Estimat Glomerular Filtration Rate > 60 mL/min (>60) Glucose Level 166 MG/DL (74-106) H Calcium Level 8.0 MG/DL (8.5-10.1) L Total Bilirubin 0.6 MG/DL (0.2-1.0) Aspartate Amino Transf (AST/SGOT) 25 U/L (15-37) Alanine Aminotransferase (ALT/SGPT) 32 U/L (12-78) Alkaline Phosphatase 198 U/L (46-116) H Total Protein 7.1 G/DL (6.4-8.2) Albumin 1.7 G/DL (3.4-5.0) L Globulin 5.4 g/dL Albumin/Globulin Ratio 0.3 (1.0-2.7) L Current Medications Medications (Trade) Dose Ordered Sig/Pineda Route PRN Reason Start Time Stop Time Status Last Admin Dose Admin Acetaminophen (Tylenol) 650 mg Q4H PRN ORAL Temp >100.5 10/08/19 21:45 11/07/19 21:29 10/08/19 21:45 Al Hydroxide/Mg Hydroxide (Mylanta) 30 ml Q4H PRN ORAL Abdominal cramps 10/08/19 06:00 11/07/19 05:59 Dextrose (Dextrose 50%) 25 ml Q30M PRN IV Hypoglycemia 10/08/19 04:45 01/06/20 04:44 Dextrose (Dextrose 50%) 50 ml Q30M PRN IV Hypoglycemia 10/08/19 04:45 01/06/20 04:44 Hydromorphone HCl (Dilaudid) 1 mg Q3H PRN IVP Moderate Pain (Pain Scale 4-6) 10/08/19 06:00 10/15/19 05:59 10/09/19 08:33 Hydromorphone HCl (Dilaudid) 2 mg Q3H PRN IVP Severe Pain (Pain Scale 7-10) 10/08/19 06:00 10/15/19 05:59 Linezolid 300 ml @ 300 mls/hr Q12HR IVPB 10/08/19 09:00 10/15/19 08:59 10/09/19 08:30 Lorazepam (Ativan) 1 mg Q4H PRN ORAL For Anxiety 10/08/19 06:00 10/15/19 05:59 Metoprolol Tartrate (Lopressor) 50 mg Q12HR ORAL 10/08/19 21:00 01/06/20 20:59 Ondansetron HCl (Zofran) 4 mg Q6H PRN IVP Nausea & Vomiting 10/09/19 07:00 11/08/19 06:59 Pantoprazole (Protonix) 40 mg ACBREAKFAST ORAL 10/08/19 06:30 11/07/19 06:29 10/09/19 07:04 Sodium Chloride 1,000 ml @ 100 mls/hr Q10H IV 10/08/19 06:00 11/07/19 05:59 10/09/19 01:48 Deng Reyes MD Oct 09, 2019 10:49
[2019-10-09 12:00] VITALS: BP 91/45
[2019-10-09] MEDS ORDERED: Omnipaque-300 100ml vial INJ PRN ×2 (12:30→21:13)
[2019-10-09] MEDS ORDERED: Tubing IV Secondary IV ONE (13:42)
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
[2019-10-09] MEDS ORDERED: Ascorbic Acid 500mg tab ORAL SCH (18:00)
--- NOTE | 2019-10-09 18:18 | Diagnostic Imaging Report ---
CT ABDOMEN AND PELVIS WITH CONTRAST INDICATION: Multiple abscesses. TECHNIQUE: Continuous helical transaxial imaging of the abdomen and pelvis was obtained from the lung bases to the pubic symphysis during intravenous contrast administration. Coronal 2-D reformats were also obtained. Study obtained in a Siemens sensation [address] Automatic Exposure Control was utilized. Total Dose length Product (DLP): A 47.[address] Dose Index Volume (CTDIvol): 15.8 mGy COMPARISON: CT pelvis dated 10/08/2019; CT abdomen pelvis dated 09/18/2019 FINDINGS: Lower chest:: Bibasilar subsegmental atelectasis. Hepatobiliary:: Cholelithiasis. Genitourinary:: Unchanged Adrenals:: Unchanged. Pancreas:: Unchanged. Gastrointestinal:: No evidence of obstruction. Unchanged appearance of large left ventral hernia containing nonobstructed loops of bowel. Spleen: : Unchanged. Peritoneum/retroperitoneum:: Grossly stable size of left psoas abscess extending into the left iliac is muscle. Unchanged appearance of right pelvic approach pigtail catheter terminating in now decompressed right psoas abscess. Bones and soft tissues:: Mild diffuse anasarca. There are multilevel discogenic degenerative changes of the visualized spine. Interval decrease in size of abscess posterior to the T12-L2 spinous processes, with residual small abscess. Previously placed percutaneous pigtail drain is no longer present in this collection. Grossly unchanged appearance of the extensive bone destruction at the L1-L2 level with associated gas and fluid pocket, which appears connected to left psoas muscle abscess as well as posterior paraspinal abscess. Grossly unchanged appearance of extensive destructive changes of the right acetabulum, with associated small pocket of fluid and gas. Grossly unchanged appearance of perineal inflammatory changes. Grossly unchanged appearance of retrocecal/rectococcygeal decubitus changes. Grossly unchanged appearance of left hip joint bony destruction with associated now decompressed superficial abscess, with pigtail catheter still in place. Small pocket of residual superficial fluid is noted.. IMPRESSION: 1. No significant change in appearance of bilateral hip joint abscesses since examination from yesterday. 2. Interval decrease in size of posterior paraspinal subcutaneous abscesses. Previously placed percutaneous drain is no longer present. 3. No significant change in appearance of intraspinal abscess seated at the L1-L2 level, which is connected to persistent left psoas muscle, also unchanged in size from prior examination dated 09/18/2019. The CT scanner at [facility] is accredited by the [employer] and the scans are performed using protocols designed to limit radiation exposure to as low as reasonably achievable to attain images of sufficient resolution adequate for diagnostic evaluation.
[2019-10-09 20:00] VITALS: BP 108/50
[2019-10-09 21:00] VITALS: BP 98/44
[2019-10-09] MEDS ORDERED: Acetaminophen 650mg/20.3ml ORAL PRN (21:12)
[2019-10-09] MEDS ORDERED: LORazepam 1mg tab ORAL PRN (21:13)
[2019-10-10] VITALS: BP 104/50
--- NOTE | 2019-10-10 01:15 | Progress Note ---
DATE: 10/09/2019 CARDIOLOGY PROGRESS NOTE SUBJECTIVE: Patient feels weak and withdrawn. Slightly better today. Still with fevers up to 102.9 last night and low range blood pressure. PHYSICAL EXAMINATION: VITAL SIGNS: Blood pressure 91/45, heart rate 108, respirations 20, afebrile. Temperature max as noted above. LUNGS: Bilateral breath sounds. No wheezing. CARDIAC: Regular rhythm. Rapid rate. Normal S1, S2. ABDOMEN: Soft. EXTREMITIES: Trace edema. DIAGNOSTIC DATA: CAT scan of the abdomen reveals no change in bilateral hip joint abscesses with slight decrease in paraspinal abscess. No change in intraspinal abscess in the lumbar region. IMPRESSION: 1. Sepsis. 2. Sinus tachycardia. 3. Shock. 4. Multiple abscesses. 5. Paraplegia. PLAN: 1. Drainage. 2. Antimicrobials. 3. Cautious use of beta-bob. 4. Hydration with IV fluids. 5. Continue cardiac monitoring. 6. DVT prophylaxis. Karthik Parra M.D. DR: RAHAT JOB#: [id number] CC:
[2019-10-10] MEDS: HYDROmorphone 1mg/ml Carpuject IVP PRN ×6 (02:55→20:51)
[2019-10-10 04:00] VITALS: BP 97/41
[2019-10-10 08:00] VITALS: BP 103/54
[2019-10-10] MEDS: Metoprolol Tartrate 50mg tab ORAL SCH ×2 (09:00→20:56)
--- NOTE | 2019-10-10 09:06 | General Progress Note ---
Assessment/Plan Assessment/Plan: IMPRESSION: 1. Fever recurrent 2. Chest x-ray, pulmonary changes, consider pneumonia. 3. Significant sinus tachycardia. 4. Anemia with history of transfusion. 5. Chronic wounds. 6. Chronic pain. 7. bcx + PLAN monitor vitals and fever curve antibiotics CT abdomen with contrast appears stable or improved no need for drainage surgical follow up pain control ID recommendations discussed impression, plan, and exam edited and reviewed in detail care discussed with RN Subjective Allergies: Coded Allergies: CEFTRIAXONE (Verified Allergy, Intermediate, SOB, HR-140bpm, face swollen , pt became red, 10/24/15) CODEINE (Verified Allergy, Intermediate, SWELLING, 01/03/11) LATEX (Verified Allergy, Intermediate, SWELLING, 01/03/11) PIPERACILLIN (Verified Allergy, Intermediate, Itching, 08/29/15) 08/29/15 tolerates Ceftaroline TAZOBACTAM (Verified Allergy, Intermediate, Itching, 01/29/15) POLYMYXIN B (Verified Allergy, Mild, Rash, 04/08/16) Suspected allergy reported by VANCOMYCIN (Verified Allergy, Mild, 07/15/14) ASPARAGINASE (Verified Allergy, Unknown, 01/28/14) CEFUROXIME (Unverified Allergy, Unknown, 04/19/16) IRON (Verified Allergy, Unknown, 01/28/14) LATEX, NATURAL RUBBER (Unverified Allergy, Unknown, 06/18/16) Subjective care noted in good spirits CT abdomen reviewed noted fevers Objective Last 24 Hour Vital Signs Date Time Temp Pulse Resp B/P (MAP) Pulse Ox O2 Delivery O2 Flow Rate FiO2 10/10/19 08:00 97.9 100 20 103/54 (70) 97 10/10/19 05:30 98.1 10/10/19 04:55 98.1 10/10/19 04:00 115 10/10/19 04:00 101.1 114 19 97/41 (59) 96 10/10/19 00:00 99.9 112 19 104/50 (68) 97 10/10/19 00:00 112 10/09/19 21:15 114 98/44 10/09/19 21:00 99.6 114 20 98/44 (62) 98 10/09/19 21:00 Room Air 10/09/19 20:00 99.3 92 20 108/50 (69) 97 10/09/19 20:00 115 10/09/19 16:00 Room Air 10/09/19 15:26 117 10/09/19 12:00 Room Air 10/09/19 12:00 98.8 108 20 91/45 (60) 97 10/09/19 11:39 112 Intake and Output 10/09/19 10/10/19 19:00 07:00 Intake Total 1350 ml 300 ml Output Total 450 ml 500 ml Balance 900 ml -200 ml Intake Oral 550 ml 300 ml IV Total 800 ml Output Stool Total 450 ml 500 ml # Voids 3 2 Height (Feet): 5 Height (Inches): 5.00 Weight (Pounds): 236 Objective GENERAL: A well-developed female, chronically ill appearing. NAD HEENT: Negative. NECK: Supple. Extraocular movements are grossly intact. LUNGS: Fairly clear and symmetric. CARDIAC: S1, S2. Tachycardic without murmurs, rubs, gallops. ABDOMEN: Soft, nontender, obese. Colostomy in place. EXTREMITIES: With significant lower extremity atrophy. Drains in place. Thanh Glover MD Oct 10, 2019 09:06
[2019-10-10] MEDS: Ascorbic Acid 500mg tab ORAL SCH ×2 (09:15→17:48)
--- NOTE | 2019-10-10 10:37 | Infectious Diseases Prog Note ---
Assessment/Plan Assessment/Plan antibiotics : linezolid A 1. lumbar abscess 2. fever improving 3. paraplegia 4. diabetes mellitus 5. hypertension 6. coag neg staph sepsis P 1. continue linezolid 2. will follow up cultures Subjective Constitutional: Denies: fever, chills Respiratory: Denies: shortness of breath, dry cough Gastrointestinal/Abdominal: Reports: nausea, diarrhea; Denies: vomiting Musculoskeletal: Reports: pain Allergies: Coded Allergies: CEFTRIAXONE (Verified Allergy, Intermediate, SOB, HR-140bpm, face swollen , pt became red, 10/24/15) CODEINE (Verified Allergy, Intermediate, SWELLING, 01/03/11) LATEX (Verified Allergy, Intermediate, SWELLING, 01/03/11) PIPERACILLIN (Verified Allergy, Intermediate, Itching, 08/29/15) 08/29/15 tolerates Ceftaroline TAZOBACTAM (Verified Allergy, Intermediate, Itching, 01/29/15) POLYMYXIN B (Verified Allergy, Mild, Rash, 04/08/16) Suspected allergy reported by VANCOMYCIN (Verified Allergy, Mild, 07/15/14) ASPARAGINASE (Verified Allergy, Unknown, 01/28/14) CEFUROXIME (Unverified Allergy, Unknown, 04/19/16) IRON (Verified Allergy, Unknown, 01/28/14) LATEX, NATURAL RUBBER (Unverified Allergy, Unknown, 06/18/16) Objective Last 24 Hour Vital Signs Date Time Temp Pulse Resp B/P (MAP) Pulse Ox O2 Delivery O2 Flow Rate FiO2 10/10/19 09:00 100 103/54 10/10/19 08:00 97.9 100 20 103/54 (70) 97 10/10/19 05:30 98.1 10/10/19 04:55 98.1 10/10/19 04:00 115 10/10/19 04:00 101.1 114 19 97/41 (59) 96 10/10/19 00:00 99.9 112 19 104/50 (68) 97 10/10/19 00:00 112 10/09/19 21:15 114 98/44 10/09/19 21:00 99.6 114 20 98/44 (62) 98 10/09/19 21:00 Room Air 10/09/19 20:00 99.3 92 20 108/50 (69) 97 10/09/19 20:00 115 10/09/19 16:00 Room Air 10/09/19 15:26 117 10/09/19 12:00 Room Air 10/09/19 12:00 98.8 108 20 91/45 (60) 97 10/09/19 11:39 112 Height (Feet): 5 Height (Inches): 5.00 Weight (Pounds): 236 Respiratory/Chest: lungs clear Cardiovascular: normal rate, regular rhythm, no gallop/murmur Abdomen: soft, non tender, other - ostomy Extremities: no edema, other - left arm PICC Musculoskeletal: other - back 2 drains Microbiology Date/Time Source Procedure Growth Status 10/07/19 17:47 Blood Blood Culture - Preliminary NO GROWTH AFTER 48 HOURS Resulted 10/07/19 17:32 Blood Blood Culture - Preliminary Staphylococcus Sp Coag Neg Resulted Current Medications Medications (Trade) Dose Ordered Sig/Pineda Route PRN Reason Start Time Stop Time Status Last Admin Dose Admin Acetaminophen (Tylenol) 650 mg Q4H PRN ORAL Temp >100.5 10/09/19 21:12 11/08/19 21:11 10/10/19 04:25 Al Hydroxide/Mg Hydroxide (Mylanta) 30 ml Q4H PRN ORAL Abdominal cramps 10/09/19 21:13 11/08/19 21:12 Ascorbic Acid (Vitamin C) 500 mg TWICE A DAY ORAL 10/10/19 09:00 11/08/19 17:59 10/10/19 09:15 Barium Sulfate (Readi-Cat 2) 450 ml NOW PRN ORAL Radiology Procedure 10/09/19 21:13 10/10/19 23:59 Dextrose (Dextrose 50%) 25 ml Q30M PRN IV Hypoglycemia 10/09/19 21:15 01/06/20 04:44 Dextrose (Dextrose 50%) 50 ml Q30M PRN IV Hypoglycemia 10/09/19 21:15 01/06/20 04:44 Hydromorphone HCl (Dilaudid) 1 mg Q3H PRN IVP Moderate Pain (Pain Scale 4-6) 10/09/19 21:12 10/16/19 21:11 10/10/19 09:50 Hydromorphone HCl (Dilaudid) 2 mg Q3H PRN IVP Severe Pain (Pain Scale 7-10) 10/09/19 21:12 10/16/19 21:11 Iohexol (OMNIPAQUE-300 100ml) 100 ml NOW PRN INJ Radiology Procedure 10/09/19 21:13 10/10/19 21:12 Linezolid 300 ml @ 300 mls/hr Q12HR IVPB 10/09/19 21:15 10/15/19 08:59 10/10/19 09:16 Lorazepam (Ativan) 1 mg Q4H PRN ORAL For Anxiety 10/09/19 21:13 10/16/19 21:12 Metoprolol Tartrate (Lopressor) 50 mg Q12HR ORAL 10/09/19 21:15 01/06/20 20:59 Multivitamins (Multivitamins) 1 tab DAILY ORAL 10/10/19 09:00 11/09/19 08:59 10/10/19 09:14 Ondansetron HCl (Zofran) 4 mg Q6H PRN IVP Nausea & Vomiting 10/09/19 21:13 11/08/19 21:12 Pantoprazole (Protonix) 40 mg ACBREAKFAST ORAL 10/10/19 06:30 11/07/19 06:29 10/10/19 06:39 Sodium Chloride 1,000 ml @ 100 mls/hr Q10H IV 10/09/19 21:15 11/07/19 05:59 10/09/19 21:49 Deng Reyes MD Oct 10, 2019 10:37
[2019-10-10 12:00] VITALS: BP 106/59
[2019-10-10 16:00] VITALS: BP 108/57
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
[2019-10-10 20:00] VITALS: BP 112/59
[2019-10-11] VITALS (9 sets, daily range): BP systolic 103–130; BP diastolic 48–95
[2019-10-11] MEDS: HYDROmorphone 1mg/ml Carpuject IVP PRN ×5 (01:12→19:14)
--- NOTE | 2019-10-11 08:15 | Progress Note ---
DATE: 10/10/2019 CARDIOLOGY PROGRESS NOTE SUBJECTIVE: Still with fevers up to 101.1. Blood pressure parameters remained tenuous down to 97/49, monitor with sinus tachycardia up to 115. Respiratory stable and nonlabored. OBJECTIVE: LUNGS: Bilateral breath sounds. HEART: Regular rhythm and rate. Normal S1 and S2. ABDOMEN: Soft, drains in place. EXTREMITIES: Trace edema. IMPRESSION: 1. Sepsis. 2. Abdominal wounds with abscesses and ongoing drainage. 3. Sinus tachycardia secondary to sepsis and anemia. 4. Iron-deficiency with anemia. 5. Possible bacteremia and increased risk for endocarditis. PLAN: 1. Antimicrobials. 2. Drainage. 3. Beta-bob. 4. DVT prophylaxis. 5. Check venous duplex. 6. Maintain adequate hydration. 7. Remains serious and guarded. Karthik Parra M.D. DR: Jasmin JOB#: [id number] CC:
--- NOTE | 2019-10-11 08:38 | General Progress Note ---
Assessment/Plan Assessment/Plan: IMPRESSION: 1. Fever recurrent 2. Chest x-ray, pulmonary changes, consider pneumonia. 3. Significant sinus tachycardia. 4. Anemia with history of transfusion. 5. Chronic wounds. 6. Chronic pain. 7. bcx + PLAN monitor vitals and fever curve antibiotics no need for drainage surgical follow up pain control ID recommendations discussed and dc planning impression, plan, and exam edited and reviewed in detail care discussed with RN Subjective Allergies: Coded Allergies: CEFTRIAXONE (Verified Allergy, Intermediate, SOB, HR-140bpm, face swollen , pt became red, 10/24/15) CODEINE (Verified Allergy, Intermediate, SWELLING, 01/03/11) LATEX (Verified Allergy, Intermediate, SWELLING, 01/03/11) PIPERACILLIN (Verified Allergy, Intermediate, Itching, 08/29/15) 08/29/15 tolerates Ceftaroline TAZOBACTAM (Verified Allergy, Intermediate, Itching, 01/29/15) POLYMYXIN B (Verified Allergy, Mild, Rash, 04/08/16) Suspected allergy reported by VANCOMYCIN (Verified Allergy, Mild, 07/15/14) ASPARAGINASE (Verified Allergy, Unknown, 01/28/14) CEFUROXIME (Unverified Allergy, Unknown, 04/19/16) IRON (Verified Allergy, Unknown, 01/28/14) LATEX, NATURAL RUBBER (Unverified Allergy, Unknown, 06/18/16) Subjective care noted in good spirits noted fevers Objective Last 24 Hour Vital Signs Date Time Temp Pulse Resp B/P (MAP) Pulse Ox O2 Delivery O2 Flow Rate FiO2 10/11/19 08:01 98.1 98 19 103/95 (98) 100 10/11/19 04:54 98.1 10/11/19 04:00 98.1 99 19 107/53 (71) 99 10/11/19 04:00 99 10/11/19 00:00 98.1 101 18 104/57 (73) 98 10/11/19 00:00 102 10/10/19 21:00 Room Air 10/10/19 20:56 108 112/59 10/10/19 20:00 116 10/10/19 20:00 98.2 108 18 112/59 (76) 98 10/10/19 16:00 100.0 106 20 108/57 (74) 96 10/10/19 15:25 108 10/10/19 12:00 97.7 103 20 106/59 (75) 96 10/10/19 11:33 103 10/10/19 09:00 Room Air 10/10/19 09:00 100 103/54 Intake and Output 10/10/19 10/11/19 19:00 07:00 Intake Total 1800 ml Balance 1800 ml Intake Oral 400 ml IV Total 1400 ml # Voids 2 2 Height (Feet): 5 Height (Inches): 5.00 Weight (Pounds): 236 Objective GENERAL: A well-developed female, chronically ill appearing. NAD HEENT: Negative. NECK: Supple. Extraocular movements are grossly intact. LUNGS: Fairly clear and symmetric. CARDIAC: S1, S2. Tachycardic without murmurs, rubs, gallops. ABDOMEN: Soft, nontender, obese. Colostomy in place. EXTREMITIES: With significant lower extremity atrophy. Drains in place. Thanh Glover MD Oct 11, 2019 08:38
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
[2019-10-11] MEDS: Metoprolol Tartrate 50mg tab ORAL SCH ×3 (09:00→21:02)
[2019-10-11] MEDS: Ascorbic Acid 500mg tab ORAL SCH ×2 (09:27→18:29)
[2019-10-11] MEDS ORDERED: Lidocaine 1% Plain 30 ml INJ SCH (10:15)
[2019-10-11 10:50] LABS: INR 1.1 (0.9-1.1)
--- NOTE | 2019-10-11 12:49 | Pre-Procedure Note/Attestation ---
Pre-Procedure Note/Attestation Complete Prior to Procedure Planned Procedure: not applicable Procedure Narrative: CT guided abscess drainage x 2 Indications for Procedure Pre-Operative Diagnosis: multiple abscesses Attestation I attest that I discussed the nature of the procedure; its benefits; risks and complications; and alternatives (and the risks and benefits of such alternatives ), prior to the procedure, with the patient (or the patient's legal statement services representative). I attest that, if there was a reasonable possibility of needing a blood transfusion, the patient (or the patient's legal statement services representative) was given the [facility] standardized written summary, pursuant to the Wally Tami Blood Safety Act ([place] Health and Safety Code # 1645, as amended). I attest that I re-evaluated the patient just prior to the surgery and that there has been no change in the patient's H&P, except as documented below: David Whittington MD Oct 11, 2019 12:49
--- NOTE | 2019-10-11 12:50 | Moderate Sedation - Procedural ---
Moderate Sedation HPI Home Medication Reported Medications Naloxone HCl (Narcan) 4 Mg [place], 4 MG NS for for accidental overdose, SPRAY 09/28/19 Hydrocodone Bit/Acetaminophen 5-325* (NORCO 5-325 TABLET*) 1 Each Tablet, 1 TAB ORAL Q6H PRN for FOR PAIN, #10 TAB 0 Refills 09/28/19 Linezolid (Linezolid) 600 Mg/300 Ml Iv.soln, 600 MG IV Q12HR for Scheduled for 20 Days 09/28/19 Linezolid* (ZYVOX*) 600 Mg Tablet, 600 MG ORAL EVERY 12 HOURS for scheduled for 23 Days, TAB 09/07/19 Albuterol Sulfate* (ALBUTEROL SULFATE MDI*) 8.5 Gm Hfa.aer.ad, 2 PUFF INH Q4H PRN for Constipation, #1 INH 0 Refills 07/10/17 Pantoprazole* (PROTONIX*) 40 Mg Tablet.dr, 40 MG ORAL DAILY, TAB 05/07/16 Patient History Allergies: Coded Allergies: CEFTRIAXONE (Verified Allergy, Intermediate, SOB, HR-140bpm, face swollen , pt became red, 10/24/15) CODEINE (Verified Allergy, Intermediate, SWELLING, 01/03/11) LATEX (Verified Allergy, Intermediate, SWELLING, 01/03/11) PIPERACILLIN (Verified Allergy, Intermediate, Itching, 08/29/15) 08/29/15 tolerates Ceftaroline TAZOBACTAM (Verified Allergy, Intermediate, Itching, 01/29/15) POLYMYXIN B (Verified Allergy, Mild, Rash, 04/08/16) Suspected allergy reported by VANCOMYCIN (Verified Allergy, Mild, 07/15/14) ASPARAGINASE (Verified Allergy, Unknown, 01/28/14) CEFUROXIME (Unverified Allergy, Unknown, 04/19/16) IRON (Verified Allergy, Unknown, 01/28/14) LATEX, NATURAL RUBBER (Unverified Allergy, Unknown, 06/18/16) Pre-Procedural Mod Sedation Date: Oct 11, 2019 Pre-Assessment Time: 13:30 Pre-Sedation Assessment: Eval. Immed. Prior to Sed Airway Assessment (Malampati): III Evaluation Hx of untoward rxns to mod sed: No Procedures/Plans: Radiology Plan for Moderate Sedation: Fentanyl ASA Score: III Informed Consent The nature of the procedure/sedation; its benefits; risks and complications; and alternatives (and the risks and benefits of such alternatives) were discussed with the patient (or their legal medical billing representative), prior to the procedure. All questions were answered to the patient's (or their legal medical billing representative's) satisfaction and the patient (or their legal medical billing representative) gave informed consent to the procedure. I attest that I re-evaluated the patient just prior to the surgery and that there has been no change in the patient's H&P, except as documented below: Post Procedure Assessment Post Procedure TIme: 14:00 Communication: No Apparent Limitation Mental Status: Awake Respiration: Unlabored Skin Condition: WNL Adomen: WNL Nausea: NO Vomiting: NO aDvid Whittington MD Oct 11, 2019 12:50
--- NOTE | 2019-10-11 14:26 | Brief Operative Note ---
Immediate Post Operative Note Operative Note Pre-op Diagnosis: multiple abscesses Procedure: ct guided drainage superficial thoracic abscess Post-op Diagnosis: same as pre-op Surgeon: Lourdes Reynoso Anesthesia: local Specimen: yes - 10 ml serosanguineous fluid Complications: none Fluids: none Implant(s) used?: No David Reynoso MD Oct 11, 2019 14:25
--- NOTE | 2019-10-11 14:37 | Infectious Diseases Prog Note ---
Assessment/Plan Assessment/Plan A 1. Paraspinal/ psoas abscess 2. fever improving 3. paraplegia 4. diabetes mellitus 5. hypertension 6. coag neg staph sepsis 7. Bilateral hip abscess 8. Multiple drug allergy P 1. continue linezolid 2. 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: Reports: no symptoms Allergies: Coded Allergies: CEFTRIAXONE (Verified Allergy, Intermediate, SOB, HR-140bpm, face swollen , pt became red, 10/24/15) CODEINE (Verified Allergy, Intermediate, SWELLING, 01/03/11) LATEX (Verified Allergy, Intermediate, SWELLING, 01/03/11) PIPERACILLIN (Verified Allergy, Intermediate, Itching, 08/29/15) 08/29/15 tolerates Ceftaroline TAZOBACTAM (Verified Allergy, Intermediate, Itching, 01/29/15) POLYMYXIN B (Verified Allergy, Mild, Rash, 04/08/16) Suspected allergy reported by MD VANCOMYCIN (Verified Allergy, Mild, 07/15/14) ASPARAGINASE (Verified Allergy, Unknown, 01/28/14) CEFUROXIME (Unverified Allergy, Unknown, 04/19/16) IRON (Verified Allergy, Unknown, 01/28/14) LATEX, NATURAL RUBBER (Unverified Allergy, Unknown, 06/18/16) Objective Last 24 Hour Vital Signs Date Time Temp Pulse Resp B/P (MAP) Pulse Ox O2 Delivery O2 Flow Rate FiO2 10/11/19 14:12 119 14 109/64 (79) 100 10/11/19 13:30 104 15 10/11/19 12:09 Room Air 10/11/19 12:00 97.9 101 18 109/48 (68) 97 10/11/19 09:00 Room Air 10/11/19 09:00 98 103/95 10/11/19 08:01 98.1 98 19 103/95 (98) 100 10/11/19 08:00 99 10/11/19 04:54 98.1 10/11/19 04:00 98.1 99 19 107/53 (71) 99 10/11/19 04:00 99 10/11/19 00:00 98.1 101 18 104/57 (73) 98 10/11/19 00:00 102 10/10/19 21:00 Room Air 10/10/19 20:56 108 112/59 10/10/19 20:00 116 10/10/19 20:00 98.2 108 18 112/59 (76) 98 10/10/19 16:00 100.0 106 20 108/57 (74) 96 10/10/19 15:25 108 Height (Feet): 5 Height (Inches): 5.00 Weight (Pounds): 236 HEENT: mucous membranes moist Respiratory/Chest: lungs clear Cardiovascular: tachycardia Abdomen: soft, non tender Extremities: other - dependent edema Neurologic/Psychiatric: alert, oriented x 3, responsive, other - paraplegic Laboratory Tests Test 10/11/19 10:20 Prothrombin Time 11.6 SEC (9.30-11.50) H Prothromb Time International Ratio 1.1 (0.9-1.1) Activated Partial Thromboplast Time 40 SEC (23-33) H Current Medications Medications (Trade) Dose Ordered Sig/Pineda Route PRN Reason Start Time Stop Time Status Last Admin Dose Admin Acetaminophen (Tylenol) 650 mg Q4H PRN ORAL Temp >100.5 10/09/19 21:12 11/08/19 21:11 10/10/19 04:25 Al Hydroxide/Mg Hydroxide (Mylanta) 30 ml Q4H PRN ORAL Abdominal cramps 10/09/19 21:13 11/08/19 21:12 Ascorbic Acid (Vitamin C) 500 mg TWICE A DAY ORAL 10/10/19 09:00 11/08/19 17:59 10/11/19 09:27 Dextrose (Dextrose 50%) 25 ml Q30M PRN IV Hypoglycemia 10/09/19 21:15 01/06/20 04:44 Dextrose (Dextrose 50%) 50 ml Q30M PRN IV Hypoglycemia 10/09/19 21:15 01/06/20 04:44 Hydromorphone HCl (Dilaudid) 1 mg Q3H PRN IVP Moderate Pain (Pain Scale 4-6) 10/09/19 21:12 10/16/19 21:11 10/11/19 09:27 Hydromorphone HCl (Dilaudid) 2 mg Q3H PRN IVP Severe Pain (Pain Scale 7-10) 10/09/19 21:12 10/16/19 21:11 Linezolid 300 ml @ 300 mls/hr Q12HR IVPB 10/09/19 21:15 10/15/19 08:59 10/11/19 09:28 Lorazepam (Ativan) 1 mg Q4H PRN ORAL For Anxiety 10/09/19 21:13 10/16/19 21:12 Metoprolol Tartrate (Lopressor) 50 mg Q12HR ORAL 10/09/19 21:15 01/06/20 20:59 Multivitamins (Multivitamins) 1 tab DAILY ORAL 10/10/19 09:00 11/09/19 08:59 10/11/19 09:27 Ondansetron HCl (Zofran) 4 mg Q6H PRN IVP Nausea & Vomiting 10/09/19 21:13 11/08/19 21:12 Pantoprazole (Protonix) 40 mg ACBREAKFAST ORAL 10/10/19 06:30 11/07/19 06:29 10/11/19 06:37 Sodium Chloride 1,000 ml @ 100 mls/hr Q10H IV 10/09/19 21:15 11/07/19 05:59 10/11/19 01:13 Vaughn Juárez MD Oct 11, 2019 14:37
--- NOTE | 2019-10-11 15:44 | Diagnostic Imaging Report ---
Indication: Recurrent thoracolumbar region fluid collection seen on prior CT scans, history of leukocytosis and fever Technique: Informed consent obtained prior to commencement of the procedure. Localizing slices obtained. Procedural timeout performed. Intended puncture site sterilely prepped and draped. Local anesthesia with 1% lidocaine. Using trocar technique, a 8 [place] Dominguez-Crockett catheter was passed into the target superficial midline posterior thoracolumbar collection. The pigtail was formed. Approximately 10 mL of serosanguineous fluid aspirated, sent to lab for microbial analysis. Follow-up imaging performed, demonstrating satisfactory position of the catheter and essentially complete evacuation of the fluid. The drain was fixed to the skin and placed to bag drainage There is intended to also drain the left psoas collection demonstrated on recent CT scan. However, the procedure was aborted at this point per patient request. Total dose length product 1416 mGycm. CTDIvol(s) 13, 11 x 4 mGy Comparison: 10/09/[address] Findings: Completion imaging demonstrates satisfactory position of the pigtail catheter within the posterior collection, with complete evacuation of such. Impression: Successful aspiration and catheter placement for superficial midline posterior thoracolumbar fluid collection, as described. Note that serosanguineous rather than grossly purulent fluid was aspirated, but given patient history of recurrent abscesses was elected to leave a drain in place. Left psoas collection is not aspirated or drained, per patient request. Procedure and findings were previously discussed by phone with Dr. Arteaga
[2019-10-11] MEDS ORDERED: LORazepam 1mg tab ORAL PRN ×2 (18:00)
[2019-10-11] MEDS ORDERED: Acetaminophen 650mg/20.3ml ORAL PRN (18:00)
[2019-10-11] MEDS ORDERED: Ascorbic Acid 500mg tab ORAL SCH (18:00)
[2019-10-11] MEDS ORDERED: HYDROmorphone 1mg/ml Carpuject IVP PRN (18:15)
[2019-10-11] MEDS ORDERED: Metoprolol Tartrate 50mg tab ORAL SCH (21:00)
[2019-10-12] VITALS: BP 103/54
[2019-10-12] MEDS: HYDROmorphone 1mg/ml Carpuject IVP PRN ×8 (01:14→22:31)
--- NOTE | 2019-10-12 01:15 | Progress Note ---
DATE: 10/11/2019 SUBJECTIVE: Patient is status post CT-guided drainage of superficial thoracic abscess with no complications. She remains on multiple antimicrobials. OBJECTIVE: VITAL SIGNS: Blood pressure 103/95, pulse 98, respirations 19, afebrile. LUNGS: Diminished breath sounds. HEART: Regular rhythm. Rapid rate. Normal S1, S2. ABDOMEN: Soft. EXTREMITIES: Trace edema and muscle atrophy distally. IMPRESSION: 1. Sepsis. 2. Multiple abscesses. 3. Sinus tachycardia. 4. Recovering shock. 5. Paraplegia. PLAN: 1. Antimicrobials. 2. Cautious use of beta-bob. 3. Volume support. 4. DVT prophylaxis. Karthik Parra M.D. DR: RANDAL JOB#: [id number] CC:
[2019-10-12 04:00] VITALS: BP 108/63
[2019-10-12 07:06] LABS: ALANINE AMINOTRANSFERASE 20 U/L (12-78); ALBUMIN 1.5 G/DL (3.4-5.0); ALBUMIN/GLOBULIN RATIO 0.3 (1.0-2.7); ALKALINE PHOSPHATASE 190 U/L (46-116); ANION GAP 10 mmol/L (5-15); ASPARTATE AMINO TRANSFERASE 17 U/L (15-37); BILIRUBIN,TOTAL 0.2 MG/DL (0.2-1.0); BLOOD UREA NITROGEN 12 mg/dL (7-18); CALCIUM 8.1 MG/DL (8.5-10.1); CARBON DIOXIDE 22 MMOL/L (21-32); CHLORIDE 107 MMOL/L (98-107); POTASSIUM 3.5 MMOL/L (3.5-5.1); SODIUM 139 MMOL/L (136-145)
[2019-10-12 07:16] LABS: HEMATOCRIT 25.2 % (37.0-47.0); HEMOGLOBIN 7.9 G/DL (12.0-16.0); MEAN CORPUSCULAR VOLUME 92 FL (80-99); PLATELET COUNT 189 K/UL (150-450); RED BLOOD COUNT 2.73 M/UL (4.20-5.40); RED CELL DISTRIBUTION WIDTH 15.8 % (11.6-14.8)
[2019-10-12 08:00] VITALS: BP 100/72
[2019-10-12] MEDS: Ascorbic Acid 500mg tab ORAL SCH ×2 (08:39→17:18)
[2019-10-12] MEDS: Metoprolol Tartrate 50mg tab ORAL SCH ×2 (08:40→20:11)
--- NOTE | 2019-10-12 09:18 | General Progress Note ---
Assessment/Plan Assessment/Plan: IMPRESSION: 1. Fever recurrent 2. Chest x-ray, pulmonary changes, consider pneumonia. 3. Significant sinus tachycardia. 4. Anemia with history of transfusion. 5. Chronic wounds. 6. Chronic pain. 7. bcx + 8. severe PCM PLAN monitor vitals and fever curve antibiotics no need for drainage surgical follow up pain control ID recommendations discussed transfuse and optimize dc planning need to optimize protein levels impression, plan, and exam edited and reviewed in detail care discussed with RN Subjective Allergies: Coded Allergies: CEFTRIAXONE (Verified Allergy, Intermediate, SOB, HR-140bpm, face swollen , pt became red, 10/24/15) CODEINE (Verified Allergy, Intermediate, SWELLING, 01/03/11) LATEX (Verified Allergy, Intermediate, SWELLING, 01/03/11) PIPERACILLIN (Verified Allergy, Intermediate, Itching, 08/29/15) 08/29/15 tolerates Ceftaroline TAZOBACTAM (Verified Allergy, Intermediate, Itching, 01/29/15) POLYMYXIN B (Verified Allergy, Mild, Rash, 04/08/16) Suspected allergy reported by MD VANCOMYCIN (Verified Allergy, Mild, 07/15/14) ASPARAGINASE (Verified Allergy, Unknown, 01/28/14) CEFUROXIME (Unverified Allergy, Unknown, 04/19/16) IRON (Verified Allergy, Unknown, 01/28/14) LATEX, NATURAL RUBBER (Unverified Allergy, Unknown, 06/18/16) Subjective care noted in good spirits noted fevers resolved vitals better Objective Last 24 Hour Vital Signs Date Time Temp Pulse Resp B/P (MAP) Pulse Ox O2 Delivery O2 Flow Rate FiO2 10/12/19 08:40 95 100/72 10/12/19 08:07 98.1 10/12/19 08:00 98.1 95 18 100/72 (81) 99 10/12/19 04:00 98.1 101 20 108/63 (78) 98 10/12/19 00:00 98.1 106 20 103/54 (70) 98 10/11/19 21:00 107 108/65 10/11/19 21:00 Room Air 10/11/19 20:00 98.2 107 20 108/65 (79) 98 10/11/19 16:00 98.1 81 20 130/71 (90) 98 10/11/19 14:12 119 14 109/64 (79) 100 10/11/19 13:30 104 15 10/11/19 12:09 Room Air 10/11/19 12:00 98 10/11/19 12:00 97.9 101 18 109/48 (68) 97 Intake and Output 10/11/19 10/12/19 19:00 07:00 Intake Total 240 ml 1680 ml Balance 240 ml 1680 ml Intake Oral 240 ml 480 ml IV Total 1200 ml # Voids 1 2 Laboratory Tests 10/11/19 10:20: Prothrombin Time 11.6H, Prothromb Time International Ratio 1.1, Activated Partial Thromboplast Time 40H 10/12/19 05:00: White Blood Count 5.0, Red Blood Count 2.73L, Hemoglobin 7.9L, Hematocrit 25.2L , Mean Corpuscular Volume 92, Mean Corpuscular Hemoglobin 28.8, Mean Corpuscular Hemoglobin Concent 31.2L, Red Cell Distribution Width 15.8H, Platelet Count 189, Mean Platelet Volume 6.0L, Neutrophils (%) (Auto) , Lymphocytes (%) (Auto) , Monocytes (%) (Auto) , Eosinophils (%) (Auto) , Basophils (%) (Auto) , Neutrophils % (Manual) [Pending], Lymphocytes % (Manual) [Pending], Platelet Estimate [Pending], Platelet Morphology [Pending], Erythrocyte Sedimentation Rate 132H, Sodium Level 139, Potassium Level 3.5, Chloride Level 107, Carbon Dioxide Level 22, Anion Gap 10, Blood Urea Nitrogen 12, Creatinine 1.0, Estimat Glomerular Filtration Rate > 60, Glucose Level 109H , Calcium Level 8.1L, Total Bilirubin 0.2, Aspartate Amino Transf (AST/SGOT) 17 , Alanine Aminotransferase (ALT/SGPT) 20, Alkaline Phosphatase 190H, C-Reactive Protein, Quantitative 16.9H, Total Protein 6.6, Albumin 1.5L, Globulin 5.1, Albumin/Globulin Ratio 0.3L Height (Feet): 5 Height (Inches): 5.00 Weight (Pounds): 236 Objective GENERAL: A well-developed female, chronically ill appearing. NAD HEENT: Negative. NECK: Supple. Extraocular movements are grossly intact. LUNGS: Fairly clear and symmetric. CARDIAC: S1, S2. RRR without murmurs, rubs, gallops. ABDOMEN: Soft, nontender, obese. Colostomy in place. EXTREMITIES: With significant lower extremity atrophy. Drains in place. Thanh Glover MD Oct 12, 2019 09:18
--- NOTE | 2019-10-12 11:06 | Infectious Diseases Prog Note ---
Assessment/Plan Assessment/Plan antibiotics : linezolid A 1. lumbar abscess s/p drainage 2. fever improving 3. paraplegia 4. diabetes mellitus 5. hypertension 6. coag neg staph sepsis P 1. continue linezolid 2. will follow up cultures Subjective Constitutional: Denies: fever, chills Respiratory: Denies: shortness of breath, dry cough Gastrointestinal/Abdominal: Reports: nausea; Denies: vomiting, diarrhea Musculoskeletal: Reports: pain Allergies: Coded Allergies: CEFTRIAXONE (Verified Allergy, Intermediate, SOB, HR-140bpm, face swollen , pt became red, 10/24/15) CODEINE (Verified Allergy, Intermediate, SWELLING, 01/03/11) LATEX (Verified Allergy, Intermediate, SWELLING, 01/03/11) PIPERACILLIN (Verified Allergy, Intermediate, Itching, 08/29/15) 08/29/15 tolerates Ceftaroline TAZOBACTAM (Verified Allergy, Intermediate, Itching, 01/29/15) POLYMYXIN B (Verified Allergy, Mild, Rash, 04/08/16) Suspected allergy reported by VANCOMYCIN (Verified Allergy, Mild, 07/15/14) ASPARAGINASE (Verified Allergy, Unknown, 01/28/14) CEFUROXIME (Unverified Allergy, Unknown, 04/19/16) IRON (Verified Allergy, Unknown, 01/28/14) LATEX, NATURAL RUBBER (Unverified Allergy, Unknown, 06/18/16) Objective Last 24 Hour Vital Signs Date Time Temp Pulse Resp B/P (MAP) Pulse Ox O2 Delivery O2 Flow Rate FiO2 10/12/19 09:00 Room Air 10/12/19 08:40 95 100/72 10/12/19 08:07 98.1 10/12/19 08:00 98.1 95 18 100/72 (81) 99 10/12/19 04:00 98.1 101 20 108/63 (78) 98 10/12/19 00:00 98.1 106 20 103/54 (70) 98 10/11/19 21:00 107 108/65 10/11/19 21:00 Room Air 10/11/19 20:00 98.2 107 20 108/65 (79) 98 10/11/19 16:00 98.1 81 20 130/71 (90) 98 10/11/19 14:12 119 14 109/64 (79) 100 10/11/19 13:30 104 15 10/11/19 12:09 Room Air 10/11/19 12:00 98 10/11/19 12:00 97.9 101 18 109/48 (68) 97 Height (Feet): 5 Height (Inches): 5.00 Weight (Pounds): 236 Respiratory/Chest: lungs clear Cardiovascular: normal rate, regular rhythm, no gallop/murmur Abdomen: soft, non tender, other - ostomy Extremities: no edema, other - left arm PICC Laboratory Tests Test 10/12/19 05:00 White Blood Count 5.0 K/UL (4.8-10.8) Red Blood Count 2.73 M/UL (4.20-5.40) L Hemoglobin 7.9 G/DL (12.0-16.0) L Hematocrit 25.2 % (37.0-47.0) L Mean Corpuscular Volume 92 FL (80-99) Mean Corpuscular Hemoglobin 28.8 PG (27.0-31.0) Mean Corpuscular Hemoglobin Concent 31.2 G/DL (32.0-36.0) L Red Cell Distribution Width 15.8 % (11.6-14.8) H Platelet Count 189 K/UL (150-450) Mean Platelet Volume 6.0 FL (6.5-10.1) L Neutrophils (%) (Auto) % (45.0-75.0) Lymphocytes (%) (Auto) % (20.0-45.0) Monocytes (%) (Auto) % (1.0-10.0) Eosinophils (%) (Auto) % (0.0-3.0) Basophils (%) (Auto) % (0.0-2.0) Differential Total Cells Counted 100 Neutrophils % (Manual) 50 % (45-75) Lymphocytes % (Manual) 38 % (20-45) Monocytes % (Manual) 7 % (1-10) Eosinophils % (Manual) 4 % (0-3) H Basophils % (Manual) 1 % (0-2) Band Neutrophils 0 % (0-8) Platelet Estimate Adequate Platelet Morphology Normal Hypochromasia 3+ Anisocytosis 1+ Erythrocyte Sedimentation Rate 132 MM/HR (0-20) H Sodium Level 139 MMOL/L (136-145) Potassium Level 3.5 MMOL/L (3.5-5.1) Chloride Level 107 MMOL/L (98-107) Carbon Dioxide Level 22 MMOL/L (21-32) Anion Gap 10 mmol/L (5-15) Blood Urea Nitrogen 12 mg/dL (7-18) Creatinine 1.0 MG/DL (0.55-1.30) Estimat Glomerular Filtration Rate > 60 mL/min (>60) Glucose Level 109 MG/DL (74-106) H Calcium Level 8.1 MG/DL (8.5-10.1) L Total Bilirubin 0.2 MG/DL (0.2-1.0) Aspartate Amino Transf (AST/SGOT) 17 U/L (15-37) Alanine Aminotransferase (ALT/SGPT) 20 U/L (12-78) Alkaline Phosphatase 190 U/L (46-116) H C-Reactive Protein, Quantitative 16.9 mg/dL (0.00-0.90) H Total Protein 6.6 G/DL (6.4-8.2) Albumin 1.5 G/DL (3.4-5.0) L Globulin 5.1 g/dL Albumin/Globulin Ratio 0.3 (1.0-2.7) L Current Medications Medications (Trade) Dose Ordered Sig/Pineda Route PRN Reason Start Time Stop Time Status Last Admin Dose Admin Acetaminophen (Tylenol) 650 mg Q4H PRN ORAL Temp >100.5 10/11/19 18:00 11/08/19 17:59 Al Hydroxide/Mg Hydroxide (Mylanta) 30 ml Q4H PRN ORAL Abdominal cramps 10/11/19 18:00 11/08/19 17:59 Ascorbic Acid (Vitamin C) 500 mg TWICE A DAY ORAL 10/11/19 18:00 11/10/19 17:59 10/12/19 08:39 Chlorhexidine Gluconate (Nereida-Hex 2%) 1 applic DAILY@1999 TOPIC 10/12/19 20:00 01/10/20 19:59 Dextrose (Dextrose 50%) 25 ml Q30M PRN IV Hypoglycemia 10/11/19 18:15 01/06/20 04:44 Dextrose (Dextrose 50%) 50 ml Q30M PRN IV Hypoglycemia 10/11/19 18:15 01/06/20 04:44 Hydromorphone HCl (Dilaudid) 1 mg Q3H PRN IVP Moderate Pain (Pain Scale 4-6) 10/11/19 18:15 10/16/19 21:11 10/12/19 10:27 Hydromorphone HCl (Dilaudid) 2 mg Q3H PRN IVP Severe Pain (Pain Scale 7-10) 10/11/19 18:15 10/16/19 21:11 10/11/19 21:01 Lorazepam (Ativan) 1 mg Q4H PRN ORAL For Anxiety 10/11/19 18:00 10/16/19 17:59 Metoprolol Tartrate (Lopressor) 50 mg Q12HR ORAL 10/11/19 21:00 01/06/20 20:59 Multivitamins (Multivitamins) 1 tab DAILY ORAL 10/12/19 09:00 11/09/19 08:59 10/12/19 08:40 Ondansetron HCl (Zofran) 4 mg Q6H PRN IVP Nausea & Vomiting 10/11/19 18:00 11/10/19 17:59 Pantoprazole (Protonix) 40 mg ACBREAKFAST ORAL 10/12/19 06:30 11/07/19 06:29 Sodium Chloride 1,000 ml @ 100 mls/hr Q10H IV 10/11/19 18:15 11/07/19 05:59 10/12/19 04:50 Deng Reyes MD Oct 12, 2019 11:06
[2019-10-12 12:00] VITALS: BP 123/84
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
[2019-10-12 16:00] VITALS: BP 126/73
[2019-10-12 20:00] VITALS: BP 130/67
[2019-10-12] MEDS: Dyna-Hex 2% Top Sol 2oz TOPIC SCH (20:12)
[2019-10-13] VITALS: BP 118/55
--- NOTE | 2019-10-13 03:00 | Progress Note ---
DATE: 10/12/2019 CARDIOLOGY PROGRESS NOTE SUBJECTIVE: The patient is defervesced. Sinus rhythm on monitor with episodes of sinus tachycardia. No additional drainage procedures planned. Continues on IV antimicrobials. OBJECTIVE: VITAL SIGNS: Blood pressure 108/63, pulse 101, respirations 20, and room air oxygen 98% saturation. LUNGS: With clear breath sounds. No wheezing. CARDIAC: Regular rhythm. Rapid rate. Normal S1 and S2. ABDOMEN: Soft with no focal tenderness. Drainage catheter is in place. EXTREMITIES: With muscle atrophy. Trace edema. LABORATORY DATA: White count 5, hemoglobin 7.9. Sodium 139, potassium 3.5, bicarb 22, BUN 12, creatinine 1. Albumin 1.5. IMPRESSION: 1. Sepsis. 2. Multiple abscesses. 3. Sinus tachycardia. 4. Dehydration, hypovolemia, and hyponatremia, corrected. 5. Severe protein-calorie malnutrition. 6. Worsening anemia. PLAN: 1. Iron replacement if needed. 2. Decrease IV fluids. 3. Antimicrobials. 4. Protein supplement. 5. DVT prophylaxis. 6. Titrate beta-bob based on clinical parameters. Karthik Parra M.D. DR: MAGNO JOB#: [id number] CC:
[2019-10-13 04:00] VITALS: BP 120/73
[2019-10-13] MEDS: HYDROmorphone 1mg/ml Carpuject IVP PRN (04:49)
[2019-10-13 06:10] LABS: BASOPHILS % (AUTO) 0.6 % (0.0-2.0); EOSINOPHILS % (AUTO) 5.9 % (0.0-3.0); HEMATOCRIT 31.7 % (37.0-47.0); HEMOGLOBIN 10.1 G/DL (12.0-16.0); LYMPHOCYTES % (AUTO) 34.6 % (20.0-45.0); MEAN CORPUSCULAR VOLUME 92 FL (80-99); MONOCYTES % (AUTO) 6.2 % (1.0-10.0); NEUTROPHILS % (AUTO) 52.7 % (45.0-75.0); PLATELET COUNT 174 K/UL (150-450); RED BLOOD COUNT 3.46 M/UL (4.20-5.40); RED CELL DISTRIBUTION WIDTH 15.3 % (11.6-14.8); WHITE BLOOD COUNT 5.2 K/UL (4.8-10.8)
[2019-10-13 06:20] LABS: % IRON SATURATION 60 % (15-50); IRON 80 ug/dL (50-175); TOTAL IRON BINDING CAPACITY 133 ug/dL (250-450)
[2019-10-13 06:35] LABS: ALANINE AMINOTRANSFERASE 19 U/L (12-78); ALBUMIN 1.6 G/DL (3.4-5.0); ALBUMIN/GLOBULIN RATIO 0.3 (1.0-2.7); ALKALINE PHOSPHATASE 198 U/L (46-116); ANION GAP 15 mmol/L (5-15); ASPARTATE AMINO TRANSFERASE 20 U/L (15-37); BILIRUBIN,TOTAL 0.3 MG/DL (0.2-1.0); BLOOD UREA NITROGEN 7 mg/dL (7-18); CALCIUM 8.1 MG/DL (8.5-10.1); CARBON DIOXIDE 20 MMOL/L (21-32); CHLORIDE 108 MMOL/L (98-107); CREATININE 0.9 MG/DL (0.55-1.30); POTASSIUM 3.5 MMOL/L (3.5-5.1); SODIUM 143 MMOL/L (136-145)
[2019-10-13 08:00] VITALS: BP 124/67
[2019-10-13] MEDS: Metoprolol Tartrate 50mg tab ORAL SCH ×3 (09:00→21:56)
[2019-10-13] MEDS: Ascorbic Acid 500mg tab ORAL SCH ×2 (09:12→18:53)
[2019-10-13 12:00] VITALS: BP 140/86
[2019-10-13 16:00] VITALS: BP 120/65
[2019-10-13] MEDS: Acetaminophen 650mg/20.3ml ORAL PRN ×2 (16:03→21:57)
--- NOTE | 2019-10-13 19:48 | Pulmonology Progress Note ---
Subjective ROS Limited/Unobtainable: No Constitutional: Denies: fever, chills Gastrointestinal/Abdominal: Reports: nausea; Denies: vomiting, diarrhea Musculoskeletal: Reports: pain Allergies: Coded Allergies: CEFTRIAXONE (Verified Allergy, Intermediate, SOB, HR-140bpm, face swollen , pt became red, 10/24/15) CODEINE (Verified Allergy, Intermediate, SWELLING, 01/03/11) LATEX (Verified Allergy, Intermediate, SWELLING, 01/03/11) PIPERACILLIN (Verified Allergy, Intermediate, Itching, 08/29/15) 08/29/15 tolerates Ceftaroline TAZOBACTAM (Verified Allergy, Intermediate, Itching, 01/29/15) POLYMYXIN B (Verified Allergy, Mild, Rash, 04/08/16) Suspected allergy reported by VANCOMYCIN (Verified Allergy, Mild, 07/15/14) ASPARAGINASE (Verified Allergy, Unknown, 01/28/14) CEFUROXIME (Unverified Allergy, Unknown, 04/19/16) IRON (Verified Allergy, Unknown, 01/28/14) LATEX, NATURAL RUBBER (Unverified Allergy, Unknown, 06/18/16) Objective Last 24 Hour Vital Signs Date Time Temp Pulse Resp B/P (MAP) Pulse Ox O2 Delivery O2 Flow Rate FiO2 10/13/19 16:33 102.7 10/13/19 16:00 103.5 142 20 120/65 (83) 96 10/13/19 12:00 98.8 112 20 140/86 (104) 96 10/13/19 09:00 80 124/67 10/13/19 09:00 Room Air 10/13/19 08:00 97.9 80 20 124/67 (86) 96 10/13/19 04:00 98.3 96 18 120/73 (89) 95 10/13/19 00:00 97.9 92 18 118/55 (76) 97 10/12/19 23:01 98.1 10/12/19 21:00 Room Air 10/12/19 20:00 98.1 99 18 130/67 (88) 96 Intake and Output 10/12/19 10/13/19 19:00 07:00 Intake Total 1300 ml 643 ml Output Total 100 ml Balance 1200 ml 643 ml Intake Oral 600 ml 400 ml IV Total 700 ml Blood Product 243 ml Drainage Total 100 ml # Voids 2 2 Microbiology Date/Time Source Procedure Growth Status 10/11/19 14:15 Other Anaerobic Culture - Preliminary NO GROWTH AFTER 48 HOURS Resulted Laboratory Tests 10/13/19 05:00: White Blood Count 5.2, Red Blood Count 3.46L, Hemoglobin 10.1L, Hematocrit 31.7L , Mean Corpuscular Volume 92, Mean Corpuscular Hemoglobin 29.0, Mean Corpuscular Hemoglobin Concent 31.7L, Red Cell Distribution Width 15.3H, Platelet Count 174, Mean Platelet Volume 6.9, Neutrophils (%) (Auto) 52.7, Lymphocytes (%) (Auto) 34.6, Monocytes (%) (Auto) 6.2, Eosinophils (%) (Auto) 5.9H, Basophils (%) (Auto) 0.6, Sodium Level 143, Potassium Level 3.5, Chloride Level 108H, Carbon Dioxide Level 20L, Anion Gap 15, Blood Urea Nitrogen 7, Creatinine 0.9, Estimat Glomerular Filtration Rate > 60, Glucose Level 117H, Calcium Level 8.1L, Magnesium Level 0.9*L, Iron Level 80, Total Iron Binding Capacity 133L, Percent Iron Saturation 60H, Unsaturated Iron Binding 53L, Total Bilirubin 0.3, Aspartate Amino Transf (AST/SGOT) 20, Alanine Aminotransferase ( ALT/SGPT) 19, Alkaline Phosphatase 198H, Pro-B-Type Natriuretic Peptide 229H, Total Protein 6.6, Albumin 1.6L, Globulin 5.0, Albumin/Globulin Ratio 0.3L Current Medications Medications (Trade) Dose Ordered Sig/Pineda Route PRN Reason Start Time Stop Time Status Last Admin Dose Admin Acetaminophen (Tylenol) 650 mg Q4H PRN ORAL Temp >100.5 10/11/19 18:00 11/08/19 17:59 10/13/19 16:03 Al Hydroxide/Mg Hydroxide (Mylanta) 30 ml Q4H PRN ORAL Abdominal cramps 10/11/19 18:00 11/08/19 17:59 Ascorbic Acid (Vitamin C) 500 mg TWICE A DAY ORAL 10/11/19 18:00 11/10/19 17:59 10/13/19 18:53 Chlorhexidine Gluconate (Nereida-Hex 2%) 1 applic DAILY@1999 TOPIC 10/12/19 20:00 01/10/20 19:59 10/12/19 20:12 Dextrose (Dextrose 50%) 25 ml Q30M PRN IV Hypoglycemia 10/11/19 18:15 01/06/20 04:44 Dextrose (Dextrose 50%) 50 ml Q30M PRN IV Hypoglycemia 10/11/19 18:15 01/06/20 04:44 Hydromorphone HCl (Dilaudid) 1 mg Q3H PRN IVP Moderate Pain (Pain Scale 4-6) 10/11/19 18:15 10/16/19 21:11 10/13/19 04:49 Hydromorphone HCl (Dilaudid) 2 mg Q3H PRN IVP Severe Pain (Pain Scale 7-10) 10/11/19 18:15 10/16/19 21:11 10/13/19 18:52 Linezolid 300 ml @ 300 mls/hr Q12HR IVPB 10/13/19 21:00 10/20/19 20:59 Lorazepam (Ativan) 1 mg Q4H PRN ORAL For Anxiety 10/11/19 18:00 10/16/19 17:59 Metoprolol Tartrate (Lopressor) 50 mg Q12HR ORAL 10/11/19 21:00 01/06/20 20:59 Multivitamins (Multivitamins) 1 tab DAILY ORAL 10/12/19 09:00 11/09/19 08:59 10/13/19 09:12 Ondansetron HCl (Zofran) 4 mg Q6H PRN IVP Nausea & Vomiting 10/11/19 18:00 11/10/19 17:59 10/13/19 15:16 Pantoprazole (Protonix) 40 mg ACBREAKFAST ORAL 10/12/19 06:30 11/07/19 06:29 Sodium Chloride 1,000 ml @ 50 mls/hr Q20H IV 10/13/19 18:15 11/12/19 18:14 10/13/19 18:15 Assessment/Plan Assessment/Plan Pulmonary Progress Note Assessment/Plan: IMPRESSION: 1. Fever recurrent 2. Chest x-ray, pulmonary changes, consider pneumonia. 3. Significant sinus tachycardia. 4. Anemia with history of transfusion. 5. Chronic wounds. 6. Chronic pain. 7. bcx + 8. severe PCM PLAN monitor vitals and fever curve antibiotics sp CT guided drainage surgical follow up pain control ID recommendations discussed transfuse and optimize dc planning need to optimize protein levels impression, plan, and exam edited and reviewed in detail care discussed with RN Subjective Allergies: Coded Allergies: CEFTRIAXONE (Verified Allergy, Intermediate, SOB, HR-140bpm, face swollen , pt became red, 10/24/15) CODEINE (Verified Allergy, Intermediate, SWELLING, 01/03/11) LATEX (Verified Allergy, Intermediate, SWELLING, 01/03/11) PIPERACILLIN (Verified Allergy, Intermediate, Itching, 08/29/15) 08/29/15 tolerates Ceftaroline TAZOBACTAM (Verified Allergy, Intermediate, Itching, 01/29/15) POLYMYXIN B (Verified Allergy, Mild, Rash, 04/08/16) Suspected allergy reported by MD VANCOMYCIN (Verified Allergy, Mild, 07/15/14) ASPARAGINASE (Verified Allergy, Unknown, 01/28/14) CEFUROXIME (Unverified Allergy, Unknown, 04/19/16) IRON (Verified Allergy, Unknown, 01/28/14) LATEX, NATURAL RUBBER (Unverified Allergy, Unknown, 06/18/16) Subjective care noted in good spirits noted fevers resolved vitals better Objective Vital Signs Noted Laboratory Tests Noted 10/11/19 10:20: Prothrombin Time 11.6H, Prothromb Time International Ratio 1.1, Activated Partial Thromboplast Time 40H 10/12/19 05:00: White Blood Count 5.0, Red Blood Count 2.73L, Hemoglobin 7.9L, Hematocrit 25.2L , Mean Corpuscular Volume 92, Mean Corpuscular Hemoglobin 28.8, Mean Corpuscular Hemoglobin Concent 31.2L, Red Cell Distribution Width 15.8H, Platelet Count 189, Mean Platelet Volume 6.0L, Neutrophils (%) (Auto) , Lymphocytes (%) (Auto) , Monocytes (%) (Auto) , Eosinophils (%) (Auto) , Basophils (%) (Auto) , Neutrophils % (Manual) [Pending], Lymphocytes % (Manual) [Pending], Platelet Estimate [Pending], Platelet Morphology [Pending], Erythrocyte Sedimentation Rate 132H, Sodium Level 139, Potassium Level 3.5, Chloride Level 107, Carbon Dioxide Level 22, Anion Gap 10, Blood Urea Nitrogen 12, Creatinine 1.0, Estimat Glomerular Filtration Rate > 60, Glucose Level 109H , Calcium Level 8.1L, Total Bilirubin 0.2, Aspartate Amino Transf (AST/SGOT) 17 , Alanine Aminotransferase (ALT/SGPT) 20, Alkaline Phosphatase 190H, C-Reactive Protein, Quantitative 16.9H, Total Protein 6.6, Albumin 1.5L, Globulin 5.1, Albumin/Globulin Ratio 0.3L Height (Feet): 5 Height (Inches): 5.00 Weight (Pounds): 236 Objective GENERAL: A well-developed female, chronically ill appearing. NAD HEENT: Negative. NECK: Supple. Extraocular movements are grossly intact. LUNGS: Fairly clear and symmetric. CARDIAC: S1, S2. RRR without murmurs, rubs, gallops. ABDOMEN: Soft, nontender, obese. Colostomy in place. EXTREMITIES: With significant lower extremity atrophy. Drains in place. Karthik Devine MD Oct 13, 2019 19:48
[2019-10-13 20:00] VITALS: BP 96/38
[2019-10-13] MEDS: Dyna-Hex 2% Top Sol 2oz TOPIC SCH (21:56)
[2019-10-14] VITALS: BP 93/38
[2019-10-14] MEDS: HYDROmorphone 1mg/ml Carpuject IVP PRN (01:04)
--- NOTE | 2019-10-14 02:15 | Progress Note ---
DATE: 10/13/2019 CARDIOLOGY PROGRESS NOTE OBJECTIVE: VITAL SIGNS: Still with high fevers up to 103.5. Blood pressure parameters stable 120/65, heart rate is labile with rates from 80 to 142, sinus tachycardia. LUNGS: Clear. CARDIAC: Regular rhythm. Rapid rate. ABDOMEN: Soft. EXTREMITIES: Wound site with drainage and muscle atrophy distally with trace edema. IMPRESSION: 1. Physiologically appropriate sinus tachycardia. 2. Sepsis. 3. Anemia. 4. Fevers. 5. Wound abscesses. 6. Component of autonomic dysfunction. 7. Paraplegia. PLAN: 1. Hydration. 2. Antimicrobials. 3. Wound drainage. 4. Transfuse for hemoglobin less than 8 grams. 5. Avoid beta agonist. 6. DVT prophylaxis. 7. Volume support. 8. Remains high risk. Karthik Parra M.D. DR: FAY JOB#: [id number] CC:
[2019-10-14 04:00] VITALS: BP 102/57
[2019-10-14] MEDS: Acetaminophen 650mg/20.3ml ORAL PRN (05:08)
[2019-10-14 07:11] LABS: BASOPHILS % (AUTO) 0.2 % (0.0-2.0); EOSINOPHILS % (AUTO) 0.2 % (0.0-3.0); HEMATOCRIT 29.1 % (37.0-47.0); HEMOGLOBIN 9.3 G/DL (12.0-16.0); LYMPHOCYTES % (AUTO) 11.9 % (20.0-45.0); MEAN CORPUSCULAR VOLUME 92 FL (80-99); MONOCYTES % (AUTO) 4.3 % (1.0-10.0); NEUTROPHILS % (AUTO) 83.4 % (45.0-75.0); PLATELET COUNT 140 K/UL (150-450); RED BLOOD COUNT 3.18 M/UL (4.20-5.40); RED CELL DISTRIBUTION WIDTH 15.2 % (11.6-14.8); WHITE BLOOD COUNT 11.5 K/UL (4.8-10.8)
[2019-10-14 07:26] LABS: ANION GAP 9 mmol/L (5-15); BLOOD UREA NITROGEN 12 mg/dL (7-18); CALCIUM 7.6 MG/DL (8.5-10.1); CARBON DIOXIDE 21 MMOL/L (21-32); CHLORIDE 110 MMOL/L (98-107); CREATININE 0.8 MG/DL (0.55-1.30); POTASSIUM 3.7 MMOL/L (3.5-5.1); SODIUM 140 MMOL/L (136-145)
[2019-10-14 08:00] VITALS: BP 97/55
[2019-10-14] MEDS: Ascorbic Acid 500mg tab ORAL SCH ×2 (08:30→18:23)
[2019-10-14] MEDS: Metoprolol Tartrate 50mg tab ORAL SCH ×2 (08:55→21:00)
[2019-10-14 12:00] VITALS: BP 100/58
[2019-10-14 16:00] VITALS: BP 116/67
--- NOTE | 2019-10-14 16:07 | Infectious Diseases Prog Note ---
Assessment/Plan Assessment/Plan A 1. Paraspinal/ psoas abscess 2. fever 3. paraplegia 4. diabetes mellitus 5. hypertension 6. coag neg staph sepsis 7. Bilateral hip abscess 8. Multiple drug allergy P 1. continue linezolid 2. 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 Musculoskeletal: Reports: pain Allergies: Coded Allergies: CEFTRIAXONE (Verified Allergy, Intermediate, SOB, HR-140bpm, face swollen , pt became red, 10/24/15) CODEINE (Verified Allergy, Intermediate, SWELLING, 01/03/11) LATEX (Verified Allergy, Intermediate, SWELLING, 01/03/11) PIPERACILLIN (Verified Allergy, Intermediate, Itching, 08/29/15) 08/29/15 tolerates Ceftaroline TAZOBACTAM (Verified Allergy, Intermediate, Itching, 01/29/15) POLYMYXIN B (Verified Allergy, Mild, Rash, 04/08/16) Suspected allergy reported by MD VANCOMYCIN (Verified Allergy, Mild, 07/15/14) ASPARAGINASE (Verified Allergy, Unknown, 01/28/14) CEFUROXIME (Unverified Allergy, Unknown, 04/19/16) IRON (Verified Allergy, Unknown, 01/28/14) LATEX, NATURAL RUBBER (Unverified Allergy, Unknown, 06/18/16) Objective Last 24 Hour Vital Signs Date Time Temp Pulse Resp B/P (MAP) Pulse Ox O2 Delivery O2 Flow Rate FiO2 10/14/19 12:00 98.2 90 20 100/58 (72) 98 10/14/19 09:00 Room Air 10/14/19 08:55 94 97/55 10/14/19 08:00 98.2 94 19 97/55 (69) 96 10/14/19 05:38 99.5 10/14/19 04:00 101.5 117 18 102/57 (72) 96 10/14/19 00:00 99.0 113 19 93/38 (56) 96 10/13/19 21:56 130 96/38 10/13/19 20:13 Room Air 10/13/19 20:00 102.4 130 21 96/38 (57) 96 Height (Feet): 5 Height (Inches): 5.00 Weight (Pounds): 236 HEENT: mucous membranes moist Respiratory/Chest: lungs clear Cardiovascular: normal rate, other - PICC line Abdomen: soft, non tender, other - multiple drains Neurologic/Psychiatric: alert, oriented x 3, responsive Laboratory Tests Test 10/14/19 06:20 White Blood Count 11.5 K/UL (4.8-10.8) #H Red Blood Count 3.18 M/UL (4.20-5.40) L Hemoglobin 9.3 G/DL (12.0-16.0) L Hematocrit 29.1 % (37.0-47.0) L Mean Corpuscular Volume 92 FL (80-99) Mean Corpuscular Hemoglobin 29.3 PG (27.0-31.0) Mean Corpuscular Hemoglobin Concent 32.0 G/DL (32.0-36.0) Red Cell Distribution Width 15.2 % (11.6-14.8) H Platelet Count 140 K/UL (150-450) L Mean Platelet Volume 7.8 FL (6.5-10.1) Neutrophils (%) (Auto) 83.4 % (45.0-75.0) H Lymphocytes (%) (Auto) 11.9 % (20.0-45.0) L Monocytes (%) (Auto) 4.3 % (1.0-10.0) Eosinophils (%) (Auto) 0.2 % (0.0-3.0) Basophils (%) (Auto) 0.2 % (0.0-2.0) Sodium Level 140 MMOL/L (136-145) Potassium Level 3.7 MMOL/L (3.5-5.1) Chloride Level 110 MMOL/L (98-107) H Carbon Dioxide Level 21 MMOL/L (21-32) Anion Gap 9 mmol/L (5-15) Blood Urea Nitrogen 12 mg/dL (7-18) Creatinine 0.8 MG/DL (0.55-1.30) Estimat Glomerular Filtration Rate > 60 mL/min (>60) Glucose Level 120 MG/DL (74-106) H Calcium Level 7.6 MG/DL (8.5-10.1) L Current Medications Medications (Trade) Dose Ordered Sig/Pineda Route PRN Reason Start Time Stop Time Status Last Admin Dose Admin Acetaminophen (Tylenol) 650 mg Q4H PRN ORAL Temp >100.5 10/11/19 18:00 11/08/19 17:59 10/14/19 05:08 Al Hydroxide/Mg Hydroxide (Mylanta) 30 ml Q4H PRN ORAL Abdominal cramps 10/11/19 18:00 11/08/19 17:59 Ascorbic Acid (Vitamin C) 500 mg TWICE A DAY ORAL 10/11/19 18:00 11/10/19 17:59 10/14/19 08:30 Chlorhexidine Gluconate (Nereida-Hex 2%) 1 applic DAILY@2000 TOPIC 10/12/19 20:00 01/10/20 19:59 10/13/19 21:56 Dextrose (Dextrose 50%) 25 ml Q30M PRN IV Hypoglycemia 10/11/19 18:15 01/06/20 04:44 Dextrose (Dextrose 50%) 50 ml Q30M PRN IV Hypoglycemia 10/11/19 18:15 01/06/20 04:44 Hydromorphone HCl (Dilaudid) 1 mg Q3H PRN IVP Moderate Pain (Pain Scale 4-6) 10/11/19 18:15 10/16/19 21:11 10/14/19 01:04 Hydromorphone HCl (Dilaudid) 2 mg Q3H PRN IVP Severe Pain (Pain Scale 7-10) 10/11/19 18:15 10/16/19 21:11 10/14/19 15:21 Linezolid 300 ml @ 300 mls/hr Q12HR IVPB 10/13/19 21:00 10/20/19 20:59 10/14/19 08:29 Lorazepam (Ativan) 1 mg Q4H PRN ORAL For Anxiety 10/11/19 18:00 10/16/19 17:59 Metoprolol Tartrate (Lopressor) 50 mg Q12HR ORAL 10/11/19 21:00 01/06/20 20:59 Multivitamins (Multivitamins) 1 tab DAILY ORAL 10/12/19 09:00 11/09/19 08:59 10/14/19 08:30 Ondansetron HCl (Zofran) 4 mg Q6H PRN IVP Nausea & Vomiting 10/11/19 18:00 11/10/19 17:59 10/13/19 15:16 Pantoprazole (Protonix) 40 mg ACBREAKFAST ORAL 10/12/19 06:30 11/07/19 06:29 10/14/19 06:31 Sodium Chloride 1,000 ml @ 50 mls/hr Q20H IV 10/13/19 18:15 11/12/19 18:14 10/14/19 15:34 Vaughn Juárez MD Oct 14, 2019 16:07
--- NOTE | 2019-10-14 19:00 | Pulmonology Progress Note ---
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 Gastrointestinal/Abdominal: Reports: no symptoms, nausea; Denies: vomiting, diarrhea Musculoskeletal: Reports: no symptoms, pain Allergies: Coded Allergies: CEFTRIAXONE (Verified Allergy, Intermediate, SOB, HR-140bpm, face swollen , pt became red, 10/24/15) CODEINE (Verified Allergy, Intermediate, SWELLING, 01/03/11) LATEX (Verified Allergy, Intermediate, SWELLING, 01/03/11) PIPERACILLIN (Verified Allergy, Intermediate, Itching, 08/29/15) 08/29/15 tolerates Ceftaroline TAZOBACTAM (Verified Allergy, Intermediate, Itching, 01/29/15) POLYMYXIN B (Verified Allergy, Mild, Rash, 04/08/16) Suspected allergy reported by VANCOMYCIN (Verified Allergy, Mild, 07/15/14) ASPARAGINASE (Verified Allergy, Unknown, 01/28/14) CEFUROXIME (Unverified Allergy, Unknown, 04/19/16) IRON (Verified Allergy, Unknown, 01/28/14) LATEX, NATURAL RUBBER (Unverified Allergy, Unknown, 06/18/16) Objective Last 24 Hour Vital Signs Date Time Temp Pulse Resp B/P (MAP) Pulse Ox O2 Delivery O2 Flow Rate FiO2 10/14/19 12:00 98.2 90 20 100/58 (72) 98 10/14/19 09:00 Room Air 10/14/19 08:55 94 97/55 10/14/19 08:00 98.2 94 19 97/55 (69) 96 10/14/19 05:38 99.5 10/14/19 04:00 101.5 117 18 102/57 (72) 96 10/14/19 00:00 99.0 113 19 93/38 (56) 96 10/13/19 21:56 130 96/38 10/13/19 20:13 Room Air 10/13/19 20:00 102.4 130 21 96/38 (57) 96 Intake and Output 10/13/19 10/14/19 19:00 07:00 Intake Total 600 ml 1050 ml Output Total 450 ml Balance 600 ml 600 ml Intake Oral 600 ml 1000 ml IV Total 50 ml Output Stool Total 450 ml Laboratory Tests 10/14/19 06:20: White Blood Count 11.5#H, Red Blood Count 3.18L, Hemoglobin 9.3L, Hematocrit 29.1L, Mean Corpuscular Volume 92, Mean Corpuscular Hemoglobin 29.3, Mean Corpuscular Hemoglobin Concent 32.0, Red Cell Distribution Width 15.2H, Platelet Count 140L, Mean Platelet Volume 7.8, Neutrophils (%) (Auto) 83.4H, Lymphocytes (%) (Auto) 11.9L, Monocytes (%) (Auto) 4.3, Eosinophils (%) (Auto) 0.2, Basophils (%) (Auto) 0.2, Sodium Level 140, Potassium Level 3.7, Chloride Level 110H, Carbon Dioxide Level 21, Anion Gap 9, Blood Urea Nitrogen 12, Creatinine 0.8, Estimat Glomerular Filtration Rate > 60, Glucose Level 120H, Calcium Level 7.6L Current Medications Medications (Trade) Dose Ordered Sig/Pineda Route PRN Reason Start Time Stop Time Status Last Admin Dose Admin Acetaminophen (Tylenol) 650 mg Q4H PRN ORAL Temp >100.5 10/11/19 18:00 11/08/19 17:59 10/14/19 05:08 Al Hydroxide/Mg Hydroxide (Mylanta) 30 ml Q4H PRN ORAL Abdominal cramps 10/11/19 18:00 11/08/19 17:59 Ascorbic Acid (Vitamin C) 500 mg TWICE A DAY ORAL 10/11/19 18:00 11/10/19 17:59 10/14/19 18:23 Chlorhexidine Gluconate (Nereida-Hex 2%) 1 applic DAILY@2000 TOPIC 10/12/19 20:00 01/10/20 19:59 10/13/19 21:56 Dextrose (Dextrose 50%) 25 ml Q30M PRN IV Hypoglycemia 10/11/19 18:15 01/06/20 04:44 Dextrose (Dextrose 50%) 50 ml Q30M PRN IV Hypoglycemia 10/11/19 18:15 01/06/20 04:44 Hydromorphone HCl (Dilaudid) 1 mg Q3H PRN IVP Moderate Pain (Pain Scale 4-6) 10/11/19 18:15 10/16/19 21:11 10/14/19 01:04 Hydromorphone HCl (Dilaudid) 2 mg Q3H PRN IVP Severe Pain (Pain Scale 7-10) 10/11/19 18:15 10/16/19 21:11 10/14/19 18:23 Linezolid 300 ml @ 300 mls/hr Q12HR IVPB 10/13/19 21:00 10/20/19 20:59 10/14/19 08:29 Lorazepam (Ativan) 1 mg Q4H PRN ORAL For Anxiety 10/11/19 18:00 10/16/19 17:59 Metoprolol Tartrate (Lopressor) 50 mg Q12HR ORAL 10/11/19 21:00 01/06/20 20:59 Multivitamins (Multivitamins) 1 tab DAILY ORAL 10/12/19 09:00 11/09/19 08:59 10/14/19 08:30 Ondansetron HCl (Zofran) 4 mg Q6H PRN IVP Nausea & Vomiting 10/11/19 18:00 11/10/19 17:59 10/13/19 15:16 Pantoprazole (Protonix) 40 mg ACBREAKFAST ORAL 10/12/19 06:30 11/07/19 06:29 10/14/19 06:31 Sodium Chloride 1,000 ml @ 50 mls/hr Q20H IV 10/13/19 18:15 11/12/19 18:14 10/14/19 15:34 Assessment/Plan Assessment/Plan Pulmonary Progress Note Assessment/Plan: IMPRESSION: 1. Fever recurrent 2. Chest x-ray, pulmonary changes, consider pneumonia. 3. Significant sinus tachycardia. 4. Anemia with history of transfusion. 5. Chronic wounds. 6. Chronic pain. 7. bcx + 8. severe PCM PLAN monitor vitals and fever curve antibiotics sp CT guided drainage surgical follow up pain control ID recommendations discussed transfuse and optimize dc planning need to optimize protein levels impression, plan, and exam edited and reviewed in detail care discussed with RN Subjective Allergies: Coded Allergies: CEFTRIAXONE (Verified Allergy, Intermediate, SOB, HR-140bpm, face swollen , pt became red, 10/24/15) CODEINE (Verified Allergy, Intermediate, SWELLING, 01/03/11) LATEX (Verified Allergy, Intermediate, SWELLING, 01/03/11) PIPERACILLIN (Verified Allergy, Intermediate, Itching, 08/29/15) 08/29/15 tolerates Ceftaroline TAZOBACTAM (Verified Allergy, Intermediate, Itching, 01/29/15) POLYMYXIN B (Verified Allergy, Mild, Rash, 04/08/16) Suspected allergy reported by VANCOMYCIN (Verified Allergy, Mild, 07/15/14) ASPARAGINASE (Verified Allergy, Unknown, 01/28/14) CEFUROXIME (Unverified Allergy, Unknown, 04/19/16) IRON (Verified Allergy, Unknown, 01/28/14) LATEX, NATURAL RUBBER (Unverified Allergy, Unknown, 06/18/16) Subjective care noted in good spirits noted fevers resolved vitals better Objective Vital Signs Noted Laboratory Tests Noted 10/11/19 10:20: Prothrombin Time 11.6H, Prothromb Time International Ratio 1.1, Activated Partial Thromboplast Time 40H 10/12/19 05:00: White Blood Count 5.0, Red Blood Count 2.73L, Hemoglobin 7.9L, Hematocrit 25.2L , Mean Corpuscular Volume 92, Mean Corpuscular Hemoglobin 28.8, Mean Corpuscular Hemoglobin Concent 31.2L, Red Cell Distribution Width 15.8H, Platelet Count 189, Mean Platelet Volume 6.0L, Neutrophils (%) (Auto) , Lymphocytes (%) (Auto) , Monocytes (%) (Auto) , Eosinophils (%) (Auto) , Basophils (%) (Auto) , Neutrophils % (Manual) [Pending], Lymphocytes % (Manual) [Pending], Platelet Estimate [Pending], Platelet Morphology [Pending], Erythrocyte Sedimentation Rate 132H, Sodium Level 139, Potassium Level 3.5, Chloride Level 107, Carbon Dioxide Level 22, Anion Gap 10, Blood Urea Nitrogen 12, Creatinine 1.0, Estimat Glomerular Filtration Rate > 60, Glucose Level 109H , Calcium Level 8.1L, Total Bilirubin 0.2, Aspartate Amino Transf (AST/SGOT) 17 , Alanine Aminotransferase (ALT/SGPT) 20, Alkaline Phosphatase 190H, C-Reactive Protein, Quantitative 16.9H, Total Protein 6.6, Albumin 1.5L, Globulin 5.1, Albumin/Globulin Ratio 0.3L Height (Feet): 5 Height (Inches): 5.00 Weight (Pounds): 236 Objective GENERAL: A well-developed female, chronically ill appearing. NAD HEENT: Negative. NECK: Supple. Extraocular movements are grossly intact. LUNGS: Fairly clear and symmetric. CARDIAC: S1, S2. RRR without murmurs, rubs, gallops. ABDOMEN: Soft, nontender, obese. Colostomy in place. EXTREMITIES: With significant lower extremity atrophy. Drains in place. Progress Note Subjective ROS Limited/Unobtainable: Yes Constitutional: Denies: fever Musculoskeletal: Denies: pain Allergies: Coded Allergies: No Known Allergies (Verified , 07/22/14) Subjective care noted reduced LOC vitals noted Objective Vital Signs Noted Assessment/Plan: 1. Pneumonia, community-acquired 2. Longstanding history of psychiatric problem. 3. Possible underlying history of asthma. 4. Agitation. 5. 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 hyponatremia 8. emphysema 9. aspiration risk 10. sinus tachycardia 11. hypoxemia 12. COVID+ PLAN monitor imaging for change monitor oxygen needs/and follow ID reviewed monitor LOC monitor acid base exchange; ABG PRN DVT prophylaxis aspiration precautions- suctioning as needed monitor heart rate elevate head and monitor congestion prognosis poor with noted cancer diagnosis/ onc input ID noted impression, plan, and exam edited and reviewed in detail care discussed with Karthik Bauer MD Oct 14, 2019 19:00
[2019-10-14 20:00] VITALS: BP 114/55
[2019-10-14] MEDS: Dyna-Hex 2% Top Sol 2oz TOPIC SCH (20:00)
[2019-10-15] VITALS: BP 106/57
--- NOTE | 2019-10-15 00:45 | Progress Note ---
DATE: 10/14/2019 CARDIOLOGY PROGRESS NOTE SUBJECTIVE: The patient with fevers up to 101.5. Blood pressure parameters are tenuous. She still feels weak. No nausea or vomiting but does have pain. PHYSICAL EXAMINATION: VITAL SIGNS: Temperature 97/55, pulse 94, respiratory rate 19, temperature max 101.5. LUNGS: Bilateral breath sounds. HEART: Regular rhythm and rate. Normal S1, S2. ABDOMEN: Soft. No focal tenderness. Drains noted. EXTREMITIES: Trace edema, muscle atrophy. LABORATORY DATA: White count 11.5, hemoglobin 9.3. Magnesium yesterday was 0.9, BUN 12, creatinine 0.8. IMPRESSION: 1. Sepsis. 2. Muscle abscesses. 3. Hypomagnesemia. 4. Sinus tachycardia. 5. Anemia. PLAN: 1. Transfuse for hemoglobin less than 8. 2. IV magnesium. 3. Antimicrobials. 4. Wound care. 5. Protein supplement. 6. Continue beta-blockade as tolerated by blood pressure parameters. Karthik Parra M.D. DR: Jasmin JOB#: [id number] CC:
[2019-10-15 04:00] VITALS: BP 102/56
--- NOTE | 2019-10-15 08:27 | General Progress Note ---
Assessment/Plan Assessment/Plan: IMPRESSION: 1. Fever recurrent 2. Chest x-ray, pulmonary changes, consider pneumonia. 3. Significant sinus tachycardia. 4. Anemia with history of transfusion. 5. Chronic wounds. 6. Chronic pain. 7. bcx + 8. severe PCM PLAN monitor vitals and fever curve antibiotics no need for drainage surgical follow up noted pain control ID recommendations discussed transfuse and optimize dc planning to home discussed need to optimize protein levels impression, plan, and exam edited and reviewed in detail care discussed with RN Subjective Allergies: Coded Allergies: CEFTRIAXONE (Verified Allergy, Intermediate, SOB, HR-140bpm, face swollen , pt became red, 10/24/15) CODEINE (Verified Allergy, Intermediate, SWELLING, 01/03/11) LATEX (Verified Allergy, Intermediate, SWELLING, 01/03/11) PIPERACILLIN (Verified Allergy, Intermediate, Itching, 08/29/15) 08/29/15 tolerates Ceftaroline TAZOBACTAM (Verified Allergy, Intermediate, Itching, 01/29/15) POLYMYXIN B (Verified Allergy, Mild, Rash, 04/08/16) Suspected allergy reported by VANCOMYCIN (Verified Allergy, Mild, 07/15/14) ASPARAGINASE (Verified Allergy, Unknown, 01/28/14) CEFUROXIME (Unverified Allergy, Unknown, 04/19/16) IRON (Verified Allergy, Unknown, 01/28/14) LATEX, NATURAL RUBBER (Unverified Allergy, Unknown, 06/18/16) Subjective care noted over the weekend in good spirits normal heart rate vitals better Objective Last 24 Hour Vital Signs Date Time Temp Pulse Resp B/P (MAP) Pulse Ox O2 Delivery O2 Flow Rate FiO2 10/15/19 04:00 98.6 95 17 102/56 (71) 97 10/15/19 00:00 98.4 97 19 106/57 (73) 95 10/14/19 21:00 Room Air 10/14/19 21:00 97 114/55 10/14/19 20:00 98.6 97 19 114/55 (74) 98 10/14/19 16:00 98.2 93 19 116/67 (83) 100 10/14/19 12:00 98.2 90 20 100/58 (72) 98 10/14/19 09:00 Room Air 10/14/19 08:55 94 97/55 Intake and Output 10/14/19 10/15/19 19:00 07:00 Intake Total 2150 ml 850 ml Balance 2150 ml 850 ml Intake Oral 1600 ml IV Total 550 ml 850 ml # Voids 2 # Bowel Movements 1 Height (Feet): 5 Height (Inches): 5.00 Weight (Pounds): 236 Objective GENERAL: A well-developed female, chronically ill appearing. NAD HEENT: Negative. NECK: Supple. Extraocular movements are grossly intact. LUNGS: Fairly clear and symmetric. CARDIAC: S1, S2. RRR without murmurs, rubs, gallops. ABDOMEN: Soft, nontender, obese. Colostomy in place. EXTREMITIES: With significant lower extremity atrophy. Drains in place. Thanh Glover MD Oct 15, 2019 08:26
[2019-10-15] MEDS: Ascorbic Acid 500mg tab ORAL SCH ×2 (08:37→17:44)
[2019-10-15] MEDS: Metoprolol Tartrate 50mg tab ORAL SCH ×2 (09:00→20:11)
[2019-10-15] MEDS ORDERED: Lidocaine 1% Plain 30 ml INJ PRN (09:45)
--- NOTE | 2019-10-15 11:32 | Infectious Diseases Prog Note ---
Assessment/Plan Assessment/Plan antibiotics : linezolid A 1. lumbar abscess s/p drainage 2. fever improving 3. paraplegia 4. diabetes mellitus 5. hypertension 6. coag neg staph sepsis P 1. continue linezolid 2. will follow up cultures Subjective Constitutional: Denies: fever, chills Respiratory: Denies: shortness of breath, dry cough Gastrointestinal/Abdominal: Reports: nausea; Denies: vomiting, diarrhea Musculoskeletal: Reports: pain - back Allergies: Coded Allergies: CEFTRIAXONE (Verified Allergy, Intermediate, SOB, HR-140bpm, face swollen , pt became red, 10/24/15) CODEINE (Verified Allergy, Intermediate, SWELLING, 01/03/11) LATEX (Verified Allergy, Intermediate, SWELLING, 01/03/11) PIPERACILLIN (Verified Allergy, Intermediate, Itching, 08/29/15) 08/29/15 tolerates Ceftaroline TAZOBACTAM (Verified Allergy, Intermediate, Itching, 01/29/15) POLYMYXIN B (Verified Allergy, Mild, Rash, 04/08/16) Suspected allergy reported by VANCOMYCIN (Verified Allergy, Mild, 07/15/14) ASPARAGINASE (Verified Allergy, Unknown, 01/28/14) CEFUROXIME (Unverified Allergy, Unknown, 04/19/16) IRON (Verified Allergy, Unknown, 01/28/14) LATEX, NATURAL RUBBER (Unverified Allergy, Unknown, 06/18/16) Objective Last 24 Hour Vital Signs Date Time Temp Pulse Resp B/P (MAP) Pulse Ox O2 Delivery O2 Flow Rate FiO2 10/15/19 09:00 Room Air 10/15/19 04:00 98.6 95 17 102/56 (71) 97 10/15/19 00:00 98.4 97 19 106/57 (73) 95 10/14/19 21:00 Room Air 10/14/19 21:00 97 114/55 10/14/19 20:00 98.6 97 19 114/55 (74) 98 10/14/19 16:00 98.2 93 19 116/67 (83) 100 10/14/19 12:00 98.2 90 20 100/58 (72) 98 Height (Feet): 5 Height (Inches): 5.00 Weight (Pounds): 236 Respiratory/Chest: lungs clear Cardiovascular: normal rate, regular rhythm, no gallop/murmur Abdomen: soft, non tender Extremities: no edema, other - left arm PICC Musculoskeletal: other - back 3 drains Microbiology Date/Time Source Procedure Growth Status 10/13/19 19:47 Blood Blood Culture - Preliminary NO GROWTH AFTER 24 HOURS Resulted Current Medications Medications (Trade) Dose Ordered Sig/Pineda Route PRN Reason Start Time Stop Time Status Last Admin Dose Admin Acetaminophen (Tylenol) 650 mg Q4H PRN ORAL Temp >100.5 10/11/19 18:00 11/08/19 17:59 10/14/19 05:08 Al Hydroxide/Mg Hydroxide (Mylanta) 30 ml Q4H PRN ORAL Abdominal cramps 10/11/19 18:00 11/08/19 17:59 Ascorbic Acid (Vitamin C) 500 mg TWICE A DAY ORAL 10/11/19 18:00 11/10/19 17:59 10/15/19 08:37 Chlorhexidine Gluconate (Nereida-Hex 2%) 1 applic DAILY@2000 TOPIC 10/12/19 20:00 01/10/20 19:59 10/13/19 21:56 Dextrose (Dextrose 50%) 25 ml Q30M PRN IV Hypoglycemia 10/11/19 18:15 01/06/20 04:44 Dextrose (Dextrose 50%) 50 ml Q30M PRN IV Hypoglycemia 10/11/19 18:15 01/06/20 04:44 Hydromorphone HCl (Dilaudid) 1 mg Q3H PRN IVP Moderate Pain (Pain Scale 4-6) 10/11/19 18:15 10/16/19 21:11 10/14/19 01:04 Hydromorphone HCl (Dilaudid) 2 mg Q3H PRN IVP Severe Pain (Pain Scale 7-10) 10/11/19 18:15 10/16/19 21:11 10/15/19 08:37 Lidocaine HCl (Xylocaine 1% 30ml) 30 ml ONCE PRN INJ cath placement 10/15/19 09:45 10/15/19 23:59 Linezolid 300 ml @ 300 mls/hr Q12HR IVPB 10/13/19 21:00 10/20/19 20:59 10/15/19 08:38 Lorazepam (Ativan) 1 mg Q4H PRN ORAL For Anxiety 10/11/19 18:00 10/16/19 17:59 Metoprolol Tartrate (Lopressor) 50 mg Q12HR ORAL 10/11/19 21:00 01/06/20 20:59 Multivitamins (Multivitamins) 1 tab DAILY ORAL 10/12/19 09:00 11/09/19 08:59 10/15/19 08:37 Ondansetron HCl (Zofran) 4 mg Q6H PRN IVP Nausea & Vomiting 10/11/19 18:00 11/10/19 17:59 10/13/19 15:16 Pantoprazole (Protonix) 40 mg ACBREAKFAST ORAL 10/12/19 06:30 11/07/19 06:29 10/15/19 05:36 Sodium Chloride 1,000 ml @ 50 mls/hr Q20H IV 10/13/19 18:15 11/12/19 18:14 10/14/19 15:34 Deng Reyes MD Oct 15, 2019 11:32
[2019-10-15 12:00] VITALS: BP 110/66
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
[2019-10-15 15:50] VITALS: BP 102/57
[2019-10-15 20:00] VITALS: BP 99/54
[2019-10-15] MEDS: Dyna-Hex 2% Top Sol 2oz TOPIC SCH (20:11)
--- NOTE | 2019-10-15 23:00 | Progress Note ---
DATE: 10/15/2019 CARDIOLOGY PROGRESS NOTE SUBJECTIVE: Patient without distress, but still complains of weakness. She has defervesced today. PHYSICAL EXAMINATION: VITAL SIGNS: Blood pressure 102/56, heart rate 95, respirations 17. LUNGS: Clear. CARDIAC: Regular. No murmur. ABDOMEN: Soft. EXTREMITIES: No edema. IMPRESSION: 1. Sepsis. 2. Lumbar abscess. 3. Recurrent fevers, now improved. 4. Paraplegia. 5. Sinus tachycardia. 6. Shock, recovered. PLAN: 1. Wound care with drainage. 2. Antimicrobials. 3. Titrate beta bob. 4. Maintain adequate hydration. 5. Recheck electrolytes including magnesium. 6. DVT prophylaxis. Karthik Parra M.D. DR: RAHAT JOB#: [id number] CC:
[2019-10-16] VITALS: BP 101/52
[2019-10-16 04:00] VITALS: BP 94/53
[2019-10-16 04:47] LABS: BASOPHILS % (AUTO) 0.4 % (0.0-2.0); EOSINOPHILS % (AUTO) 6.1 % (0.0-3.0); HEMOGLOBIN 9.1 G/DL (12.0-16.0); LYMPHOCYTES % (AUTO) 28.8 % (20.0-45.0); MEAN CORPUSCULAR VOLUME 91 FL (80-99); MONOCYTES % (AUTO) 6.3 % (1.0-10.0); NEUTROPHILS % (AUTO) 58.4 % (45.0-75.0); PLATELET COUNT 108 K/UL (150-450); RED BLOOD COUNT 3.18 M/UL (4.20-5.40); RED CELL DISTRIBUTION WIDTH 15.8 % (11.6-14.8)
[2019-10-16 06:14] LABS: ALANINE AMINOTRANSFERASE 11 U/L (12-78); ALBUMIN 1.3 G/DL (3.4-5.0); ALBUMIN/GLOBULIN RATIO 0.3 (1.0-2.7); ALKALINE PHOSPHATASE 168 U/L (46-116); ANION GAP 11 mmol/L (5-15); ASPARTATE AMINO TRANSFERASE 14 U/L (15-37); BILIRUBIN,TOTAL 0.2 MG/DL (0.2-1.0); BLOOD UREA NITROGEN 11 mg/dL (7-18); CALCIUM 7.6 MG/DL (8.5-10.1); CARBON DIOXIDE 21 MMOL/L (21-32); CHLORIDE 109 MMOL/L (98-107); CREATININE 0.7 MG/DL (0.55-1.30); POTASSIUM 3.5 MMOL/L (3.5-5.1); SODIUM 141 MMOL/L (136-145)
[2019-10-16 08:00] VITALS: BP 95/51
--- NOTE | 2019-10-16 08:30 | General Progress Note ---
Assessment/Plan Assessment/Plan: IMPRESSION: 1. Fever recurrent 2. Chest x-ray, pulmonary changes, consider pneumonia. 3. Significant sinus tachycardia. 4. Anemia with history of transfusion. 5. Chronic wounds. 6. Chronic pain. 7. bcx + 8. severe PCM 9. low magnesium PLAN monitor vitals and fever curve antibiotics replace lytes drain placement no need for drainage surgical follow up noted pain control ID recommendations discussed monitor HH dc planning to home discussed need to optimize protein levels impression, plan, and exam edited and reviewed in detail care discussed with RN Subjective Allergies: Coded Allergies: CEFTRIAXONE (Verified Allergy, Intermediate, SOB, HR-140bpm, face swollen , pt became red, 10/24/15) CODEINE (Verified Allergy, Intermediate, SWELLING, 01/03/11) LATEX (Verified Allergy, Intermediate, SWELLING, 01/03/11) PIPERACILLIN (Verified Allergy, Intermediate, Itching, 08/29/15) 08/29/15 tolerates Ceftaroline TAZOBACTAM (Verified Allergy, Intermediate, Itching, 01/29/15) POLYMYXIN B (Verified Allergy, Mild, Rash, 04/08/16) Suspected allergy reported by VANCOMYCIN (Verified Allergy, Mild, 07/15/14) ASPARAGINASE (Verified Allergy, Unknown, 01/28/14) CEFUROXIME (Unverified Allergy, Unknown, 04/19/16) IRON (Verified Allergy, Unknown, 01/28/14) LATEX, NATURAL RUBBER (Unverified Allergy, Unknown, 06/18/16) Subjective care noted over the weekend in good spirits normal heart rate vitals better low mag awaiting drain placement Objective Last 24 Hour Vital Signs Date Time Temp Pulse Resp B/P (MAP) Pulse Ox O2 Delivery O2 Flow Rate FiO2 10/16/19 08:00 98.1 79 20 95/51 (66) 96 10/16/19 04:00 98.8 90 16 94/53 (67) 98 10/16/19 00:00 98.5 93 17 101/52 (68) 97 10/15/19 21:00 Room Air 10/15/19 20:11 88 99/54 10/15/19 20:00 98.7 88 18 99/54 (69) 97 10/15/19 15:50 97.7 89 20 102/57 (72) 96 10/15/19 12:00 97.9 93 17 110/66 (81) 97 10/15/19 09:00 Room Air Intake and Output 10/15/19 10/16/19 19:00 07:00 Intake Total 1310 ml 480 ml Output Total 105 ml Balance 1310 ml 375 ml Intake Oral 460 ml 480 ml IV Total 850 ml Drainage Total 105 ml # Voids 2 4 # Bowel Movements 1 Laboratory Tests 10/16/19 04:10: White Blood Count 7.0, Red Blood Count 3.18L, Hemoglobin 9.1L, Hematocrit 29.0L , Mean Corpuscular Volume 91, Mean Corpuscular Hemoglobin 28.6, Mean Corpuscular Hemoglobin Concent 31.3L, Red Cell Distribution Width 15.8H, Platelet Count 108L, Mean Platelet Volume 8.2, Neutrophils (%) (Auto) 58.4, Lymphocytes (%) (Auto) 28.8, Monocytes (%) (Auto) 6.3, Eosinophils (%) (Auto) 6.1H, Basophils (%) (Auto) 0.4, Sodium Level 141, Potassium Level 3.5, Chloride Level 109H, Carbon Dioxide Level 21, Anion Gap 11, Blood Urea Nitrogen 11, Creatinine 0.7, Estimat Glomerular Filtration Rate > 60, Glucose Level 107H, Calcium Level 7.6L, Magnesium Level 1.3L, Total Bilirubin 0.2, Aspartate Amino Transf (AST/SGOT) 14L, Alanine Aminotransferase (ALT/SGPT) 11L, Alkaline Phosphatase 168H, Total Protein 5.8L, Albumin 1.3L, Globulin 4.5, Albumin/ Globulin Ratio 0.3L Height (Feet): 5 Height (Inches): 5.00 Weight (Pounds): 236 Objective GENERAL: A well-developed female, chronically ill appearing. NAD HEENT: Negative. NECK: Supple. Extraocular movements are grossly intact. LUNGS: Fairly clear and symmetric. CARDIAC: S1, S2. RRR without murmurs, rubs, gallops. ABDOMEN: Soft, nontender, obese. Colostomy in place. EXTREMITIES: With significant lower extremity atrophy. Drains in place. Thanh Glover MD Oct 16, 2019 08:30
[2019-10-16] MEDS: Metoprolol Tartrate 50mg tab ORAL SCH ×3 (09:00→21:00)
[2019-10-16] MEDS: Ascorbic Acid 500mg tab ORAL SCH ×2 (09:39→17:15)
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
--- NOTE | 2019-10-16 10:45 | Infectious Diseases Prog Note ---
Assessment/Plan Assessment/Plan antibiotics : linezolid A 1. lumbar abscess s/p drainage 2. fever improving 3. paraplegia 4. diabetes mellitus 5. hypertension 6. coag neg staph sepsis P 1. continue linezolid 2. will follow up cultures Subjective Constitutional: Denies: fever, chills Respiratory: Denies: shortness of breath, dry cough Gastrointestinal/Abdominal: Reports: nausea; Denies: vomiting, diarrhea Musculoskeletal: Reports: pain - back Allergies: Coded Allergies: CEFTRIAXONE (Verified Allergy, Intermediate, SOB, HR-140bpm, face swollen , pt became red, 10/24/15) CODEINE (Verified Allergy, Intermediate, SWELLING, 01/03/11) LATEX (Verified Allergy, Intermediate, SWELLING, 01/03/11) PIPERACILLIN (Verified Allergy, Intermediate, Itching, 08/29/15) 08/29/15 tolerates Ceftaroline TAZOBACTAM (Verified Allergy, Intermediate, Itching, 01/29/15) POLYMYXIN B (Verified Allergy, Mild, Rash, 04/08/16) Suspected allergy reported by VANCOMYCIN (Verified Allergy, Mild, 07/15/14) ASPARAGINASE (Verified Allergy, Unknown, 01/28/14) CEFUROXIME (Unverified Allergy, Unknown, 04/19/16) IRON (Verified Allergy, Unknown, 01/28/14) LATEX, NATURAL RUBBER (Unverified Allergy, Unknown, 06/18/16) Objective Last 24 Hour Vital Signs Date Time Temp Pulse Resp B/P (MAP) Pulse Ox O2 Delivery O2 Flow Rate FiO2 10/16/19 09:00 79 95/51 10/16/19 09:00 Room Air 10/16/19 08:00 98.1 79 20 95/51 (66) 96 10/16/19 04:00 98.8 90 16 94/53 (67) 98 10/16/19 00:00 98.5 93 17 101/52 (68) 97 10/15/19 21:00 Room Air 10/15/19 20:11 88 99/54 10/15/19 20:00 98.7 88 18 99/54 (69) 97 10/15/19 15:50 97.7 89 20 102/57 (72) 96 10/15/19 12:00 97.9 93 17 110/66 (81) 97 Height (Feet): 5 Height (Inches): 5.00 Weight (Pounds): 236 Microbiology Date/Time Source Procedure Growth Status 10/13/19 19:47 Blood Blood Culture - Preliminary NO GROWTH AFTER 48 HOURS Resulted Laboratory Tests Test 10/16/19 04:10 White Blood Count 7.0 K/UL (4.8-10.8) Red Blood Count 3.18 M/UL (4.20-5.40) L Hemoglobin 9.1 G/DL (12.0-16.0) L Hematocrit 29.0 % (37.0-47.0) L Mean Corpuscular Volume 91 FL (80-99) Mean Corpuscular Hemoglobin 28.6 PG (27.0-31.0) Mean Corpuscular Hemoglobin Concent 31.3 G/DL (32.0-36.0) L Red Cell Distribution Width 15.8 % (11.6-14.8) H Platelet Count 108 K/UL (150-450) L Mean Platelet Volume 8.2 FL (6.5-10.1) Neutrophils (%) (Auto) 58.4 % (45.0-75.0) Lymphocytes (%) (Auto) 28.8 % (20.0-45.0) Monocytes (%) (Auto) 6.3 % (1.0-10.0) Eosinophils (%) (Auto) 6.1 % (0.0-3.0) H Basophils (%) (Auto) 0.4 % (0.0-2.0) Sodium Level 141 MMOL/L (136-145) Potassium Level 3.5 MMOL/L (3.5-5.1) Chloride Level 109 MMOL/L (98-107) H Carbon Dioxide Level 21 MMOL/L (21-32) Anion Gap 11 mmol/L (5-15) Blood Urea Nitrogen 11 mg/dL (7-18) Creatinine 0.7 MG/DL (0.55-1.30) Estimat Glomerular Filtration Rate > 60 mL/min (>60) Glucose Level 107 MG/DL (74-106) H Calcium Level 7.6 MG/DL (8.5-10.1) L Magnesium Level 1.3 MG/DL (1.8-2.4) L Total Bilirubin 0.2 MG/DL (0.2-1.0) Aspartate Amino Transf (AST/SGOT) 14 U/L (15-37) L Alanine Aminotransferase (ALT/SGPT) 11 U/L (12-78) L Alkaline Phosphatase 168 U/L (46-116) H Total Protein 5.8 G/DL (6.4-8.2) L Albumin 1.3 G/DL (3.4-5.0) L Globulin 4.5 g/dL Albumin/Globulin Ratio 0.3 (1.0-2.7) L Current Medications Medications (Trade) Dose Ordered Sig/Pineda Route PRN Reason Start Time Stop Time Status Last Admin Dose Admin Acetaminophen (Tylenol) 650 mg Q4H PRN ORAL Temp >100.5 10/11/19 18:00 11/08/19 17:59 10/14/19 05:08 Al Hydroxide/Mg Hydroxide (Mylanta) 30 ml Q4H PRN ORAL Abdominal cramps 10/11/19 18:00 11/08/19 17:59 Ascorbic Acid (Vitamin C) 500 mg TWICE A DAY ORAL 10/11/19 18:00 11/10/19 17:59 10/16/19 09:39 Chlorhexidine Gluconate (Nereida-Hex 2%) 1 applic DAILY@2000 TOPIC 10/12/19 20:00 01/10/20 19:59 10/15/19 20:11 Dextrose (Dextrose 50%) 25 ml Q30M PRN IV Hypoglycemia 10/11/19 18:15 01/06/20 04:44 Dextrose (Dextrose 50%) 50 ml Q30M PRN IV Hypoglycemia 10/11/19 18:15 01/06/20 04:44 Hydromorphone HCl (Dilaudid) 1 mg Q3H PRN IVP Moderate Pain (Pain Scale 4-6) 10/11/19 18:15 10/16/19 21:11 10/14/19 01:04 Hydromorphone HCl (Dilaudid) 2 mg Q3H PRN IVP Severe Pain (Pain Scale 7-10) 10/11/19 18:15 10/16/19 21:11 10/16/19 09:38 Linezolid 300 ml @ 300 mls/hr Q12HR IVPB 10/13/19 21:00 10/20/19 20:59 10/16/19 09:39 Lorazepam (Ativan) 1 mg Q4H PRN ORAL For Anxiety 10/11/19 18:00 10/16/19 17:59 Magnesium Sulfate 100 ml @ 100 mls/hr Q1H IVPB 10/16/19 09:00 10/16/19 10:59 10/16/19 09:40 Metoprolol Tartrate (Lopressor) 50 mg Q12HR ORAL 10/11/19 21:00 01/06/20 20:59 Multivitamins (Multivitamins) 1 tab DAILY ORAL 10/12/19 09:00 11/09/19 08:59 10/16/19 09:38 Ondansetron HCl (Zofran) 4 mg Q6H PRN IVP Nausea & Vomiting 10/11/19 18:00 11/10/19 17:59 10/13/19 15:16 Pantoprazole (Protonix) 40 mg ACBREAKFAST ORAL 10/12/19 06:30 11/07/19 06:29 10/16/19 06:40 Sodium Chloride 1,000 ml @ 50 mls/hr Q20H IV 10/13/19 18:15 11/12/19 18:14 10/16/19 06:39 Deng Reyes MD Oct 16, 2019 10:45
[2019-10-16 12:00] VITALS: BP 106/55
[2019-10-16 16:00] VITALS: BP 97/59
[2019-10-16 20:00] VITALS: BP 116/68
[2019-10-16] MEDS: Dyna-Hex 2% Top Sol 2oz TOPIC SCH (20:08)
--- NOTE | 2019-10-16 22:45 | Progress Note ---
DATE: 10/16/2019 SUBJECTIVE: Patient feeling slightly better. Remains afebrile. Heart rate better controlled. Blood pressure parameters still low normal. PHYSICAL EXAMINATION: LUNGS: Bilateral breath sounds. No wheezing. Regular rhythm rate. Normal S1, S2. ABDOMEN: Soft. EXTREMITIES: Trace edema. Drainage sites well intact. LABORATORY DATA: White count 7, hemoglobin 9.1. Potassium 3.5, magnesium 1.3. Albumin 1.3. IMPRESSION: 1. Slow progress. 2. Remains very high risk. 3. Needs continued acute care. PLAN: 1. Continue magnesium replacement. 2. Replace potassium as needed. 3. Protein supplement. 4. Antimicrobial. 5. Skin care. 6. Decrease his beta-bob dosing. Karthik Parra M.D. DR: RANDAL JOB#: [id number] CC:
[2019-10-17] VITALS (12 sets, daily range): BP systolic 93–117; BP diastolic 52–84
[2019-10-17] MEDS: Ascorbic Acid 500mg tab ORAL SCH ×2 (08:45→18:12)
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
--- NOTE | 2019-10-17 10:53 | Infectious Diseases Prog Note ---
Assessment/Plan Assessment/Plan antibiotics : linezolid A 1. lumbar abscess s/p drainage 2. fever improving 3. paraplegia 4. diabetes mellitus 5. hypertension 6. coag neg staph sepsis 7. thrombocytopenia P 1. continue linezolid 2. will follow up cultures Subjective ROS Limited/Unobtainable: Yes Allergies: Coded Allergies: CEFTRIAXONE (Verified Allergy, Intermediate, SOB, HR-140bpm, face swollen , pt became red, 10/24/15) CODEINE (Verified Allergy, Intermediate, SWELLING, 01/03/11) LATEX (Verified Allergy, Intermediate, SWELLING, 01/03/11) PIPERACILLIN (Verified Allergy, Intermediate, Itching, 08/29/15) 08/29/15 tolerates Ceftaroline TAZOBACTAM (Verified Allergy, Intermediate, Itching, 01/29/15) POLYMYXIN B (Verified Allergy, Mild, Rash, 04/08/16) Suspected allergy reported by VANCOMYCIN (Verified Allergy, Mild, 07/15/14) ASPARAGINASE (Verified Allergy, Unknown, 01/28/14) CEFUROXIME (Unverified Allergy, Unknown, 04/19/16) IRON (Verified Allergy, Unknown, 01/28/14) LATEX, NATURAL RUBBER (Unverified Allergy, Unknown, 06/18/16) Objective Last 24 Hour Vital Signs Date Time Temp Pulse Resp B/P (MAP) Pulse Ox O2 Delivery O2 Flow Rate FiO2 10/17/19 09:16 97.7 10/17/19 09:00 Room Air 10/17/19 08:00 97.7 76 17 117/66 (83) 96 10/17/19 04:00 98.1 86 22 97/53 (68) 96 10/17/19 00:00 98.2 95 24 110/65 (80) 96 10/16/19 21:00 Room Air 10/16/19 21:00 97 116/68 10/16/19 20:38 98.2 10/16/19 20:00 98.4 97 20 116/68 (84) 97 10/16/19 16:00 98.2 92 20 97/59 (72) 96 10/16/19 12:00 97.9 88 20 106/55 (72) 97 Height (Feet): 5 Height (Inches): 5.00 Weight (Pounds): 239 Respiratory/Chest: lungs clear Cardiovascular: normal rate, regular rhythm, no gallop/murmur Abdomen: soft, non tender Extremities: no edema, other - left arm PICC Musculoskeletal: other - back 3 TISH drains Current Medications Medications (Trade) Dose Ordered Sig/Pineda Route PRN Reason Start Time Stop Time Status Last Admin Dose Admin Acetaminophen (Tylenol) 650 mg Q4H PRN ORAL Temp >100.5 10/11/19 18:00 11/08/19 17:59 10/14/19 05:08 Al Hydroxide/Mg Hydroxide (Mylanta) 30 ml Q4H PRN ORAL Abdominal cramps 10/11/19 18:00 11/08/19 17:59 Ascorbic Acid (Vitamin C) 500 mg TWICE A DAY ORAL 10/11/19 18:00 11/10/19 17:59 10/17/19 08:45 Chlorhexidine Gluconate (Nereida-Hex 2%) 1 applic DAILY@2000 TOPIC 10/12/19 20:00 01/10/20 19:59 10/16/19 20:08 Dextrose (Dextrose 50%) 25 ml Q30M PRN IV Hypoglycemia 10/11/19 18:15 01/06/20 04:44 Dextrose (Dextrose 50%) 50 ml Q30M PRN IV Hypoglycemia 10/11/19 18:15 01/06/20 04:44 Hydromorphone HCl (Dilaudid) 2 mg Q3H PRN IVP Severe Pain (Pain Scale 7-10) 10/17/19 01:15 10/24/19 01:14 10/17/19 08:46 Linezolid 300 ml @ 300 mls/hr Q12HR IVPB 10/13/19 21:00 10/20/19 20:59 10/17/19 08:45 Magnesium Sulfate 100 ml @ 100 mls/hr Q1H IVPB 10/17/19 10:00 10/17/19 11:59 10/17/19 10:08 Metoprolol Tartrate (Lopressor) 25 mg Q12HR ORAL 10/17/19 09:00 01/15/20 08:59 Multivitamins (Multivitamins) 1 tab DAILY ORAL 10/12/19 09:00 11/09/19 08:59 10/17/19 08:45 Ondansetron HCl (Zofran) 4 mg Q6H PRN IVP Nausea & Vomiting 10/11/19 18:00 11/10/19 17:59 10/13/19 15:16 Pantoprazole (Protonix) 40 mg ACBREAKFAST ORAL 10/12/19 06:30 11/07/19 06:29 10/17/19 05:30 Deng Reyes MD Oct 17, 2019 10:53
[2019-10-17] MEDS ORDERED: fentaNYL 100 mcg/2 mL IV ONE (12:30)
[2019-10-17] MEDS ORDERED: Lidocaine 1% Plain 30 ml INJ ONE (12:30)
[2019-10-17] MEDS ORDERED: Midazolam 2mg/2ml Inj IVP ONE (12:30)
--- NOTE | 2019-10-17 13:18 | Pre-Procedure Note/Attestation ---
Pre-Procedure Note/Attestation Complete Prior to Procedure Planned Procedure: left Procedure Narrative: CT guded aspiration/drainage of L psoas collection Indications for Procedure Pre-Operative Diagnosis: multiple abscesses Attestation I attest that I discussed the nature of the procedure; its benefits; risks and complications; and alternatives (and the risks and benefits of such alternatives ), prior to the procedure, with the patient (or the patient's legal associate financial representative). I attest that, if there was a reasonable possibility of needing a blood transfusion, the patient (or the patient's legal associate financial representative) was given the [facility] standardized written summary, pursuant to the Wally Tami Blood Safety Act ([place] Health and Safety Code # 1645, as amended). I attest that I re-evaluated the patient just prior to the surgery and that there has been no change in the patient's H&P, except as documented below: Procedure not performed, not indicated based on localizer CT David Whittington MD Oct 17, 2019 13:18
--- NOTE | 2019-10-17 13:19 | Moderate Sedation - Procedural ---
Moderate Sedation HPI Home Medication Reported Medications Naloxone HCl (Narcan) 4 Mg [place], 4 MG NS for for accidental overdose, SPRAY 09/28/19 Hydrocodone Bit/Acetaminophen 5-325* (NORCO 5-325 TABLET*) 1 Each Tablet, 1 TAB ORAL Q6H PRN for FOR PAIN, #10 TAB 0 Refills 09/28/19 Linezolid (Linezolid) 600 Mg/300 Ml Iv.soln, 600 MG IV Q12HR for Scheduled for 20 Days 09/28/19 Linezolid* (ZYVOX*) 600 Mg Tablet, 600 MG ORAL EVERY 12 HOURS for scheduled for 23 Days, TAB 09/07/19 Albuterol Sulfate* (ALBUTEROL SULFATE MDI*) 8.5 Gm Hfa.aer.ad, 2 PUFF INH Q4H PRN for Shortness of Breath, #1 INH 0 Refills 07/10/17 Pantoprazole* (PROTONIX*) 40 Mg Tablet.dr, 40 MG ORAL DAILY, TAB 05/07/16 Patient History Allergies: Coded Allergies: CEFTRIAXONE (Verified Allergy, Intermediate, SOB, HR-140bpm, face swollen , pt became red, 10/24/15) CODEINE (Verified Allergy, Intermediate, SWELLING, 01/03/11) LATEX (Verified Allergy, Intermediate, SWELLING, 01/03/11) PIPERACILLIN (Verified Allergy, Intermediate, Itching, 08/29/15) 08/29/15 tolerates Ceftaroline TAZOBACTAM (Verified Allergy, Intermediate, Itching, 01/29/15) POLYMYXIN B (Verified Allergy, Mild, Rash, 04/08/16) Suspected allergy reported by VANCOMYCIN (Verified Allergy, Mild, 07/15/14) ASPARAGINASE (Verified Allergy, Unknown, 01/28/14) CEFUROXIME (Unverified Allergy, Unknown, 04/19/16) IRON (Verified Allergy, Unknown, 01/28/14) LATEX, NATURAL RUBBER (Unverified Allergy, Unknown, 06/18/16) Pre-Procedural Mod Sedation Date: Oct 17, 2019 Pre-Assessment Time: 14:00 Pre-Sedation Assessment: Elective Airway Assessment (Malampati): III Evaluation Hx of untoward rxns to mod sed: No Procedures/Plans: Radiology Plan for Moderate Sedation: Fentanyl ASA Score: II Informed Consent The nature of the procedure/sedation; its benefits; risks and complications; and alternatives (and the risks and benefits of such alternatives) were discussed with the patient (or their legal sales representative adding machines), prior to the procedure. All questions were answered to the patient's (or their legal sales representative adding machines's) satisfaction and the patient (or their legal sales representative adding machines) gave informed consent to the procedure. I attest that I re-evaluated the patient just prior to the surgery and that there has been no change in the patient's H&P, except as documented below: Post Procedure Assessment Post Procedure TIme: 14:20 Communication: No Apparent Limitation Mental Status: Awake Respiration: Unlabored Skin Condition: WNL Adomen: WNL Nausea: NO Vomiting: NO David Whittington MD Oct 17, 2019 13:19
--- NOTE | 2019-10-17 16:24 | Diagnostic Imaging Report ---
Indication: Abdominal pain, anticipated drainage of left iliopsoas abscess demonstrated on prior imaging studies Technique: Patient brought to CT in anticipation of a drainage procedure for previously reported left iliopsoas fluid collection. With the patient prone, localizer images obtained through the area of interest. This demonstrated markedly decreased size of the target fluid collection as evidenced by noncontrast images. There is a likely due to attain contrast imaging in order to better assess the residual size of the collection. Postcontrast venous phase spiral acquisitions obtained through the lower abdomen and upper pelvis with the patient in the same position. Images were reviewed, and view of the decreased size of the target collection, was elected not to proceed with drainage procedure. Total dose length product 721 mGycm. CTDIvol(s) 15 and 12 mGy. Dose reduction achieved using automated exposure control Comparison: 10/09/2019 as well as images from procedure done on 10/11/2019 Findings: Interim marked decrease in size of previously demonstrated iliopsoas fluid collection, current dimensions 2 cm transverse by 1 cm AP and about 8 cm in length, previously 4 x 2.6 cm x 12 centimeters in length. A small residual multiloculated collection is again demonstrated in the left iliac fossa, also probably smaller. A drainage catheter is seen again in the right lateral pelvis, without evidence of residual fluid collection. A drainage catheter is also demonstrated again in the right hip. Small fluid collections are again demonstrated posterior to the right proximal femur and in the right hip region. Decubitus ulceration is again seen posteriorly. Impression: Images taken in anticipation of catheter drainage of left psoas abscess demonstrate markedly decreased size of the abscess since previous study of 10/09/2019 and 10/11/2019. This may indicate communication with the right-sided abscess that is currently draining by a pigtail catheter, or spontaneous involution related to successful antibiotic treatment. In any case, the interim decrease in size indicates that catheter drainage is likely not necessary. Also, given the current small size aspiration would be technically challenging and potentially hazardous Other findings as noted Findings and recommendations discussed with the patient, Dr. Glover, and Dr. Allison at the conclusion of the exam The CT scanner at [facility] is accredited by the [employer] and the scans are performed using protocols designed to limit radiation exposure to as low as reasonably achievable to attain images of sufficient resolution adequate for diagnostic evaluation.
--- NOTE | 2019-10-17 18:25 | General Progress Note ---
Assessment/Plan Assessment/Plan: IMPRESSION: 1. Fever recurrent 2. Chest x-ray, pulmonary changes, consider pneumonia. 3. Significant sinus tachycardia. 4. Anemia with history of transfusion. 5. Chronic wounds. 6. Chronic pain. 7. bcx + 8. severe PCM 9. low magnesium PLAN monitor vitals and fever curve antibiotics replace lytes drain placement not needed no need for drainage surgical follow up noted pain control ID recommendations for home d/w case management need to optimize protein levels impression, plan, and exam edited and reviewed in detail care discussed with RN Subjective Allergies: Coded Allergies: CEFTRIAXONE (Verified Allergy, Intermediate, SOB, HR-140bpm, face swollen , pt became red, 10/24/15) CODEINE (Verified Allergy, Intermediate, SWELLING, 01/03/11) LATEX (Verified Allergy, Intermediate, SWELLING, 01/03/11) PIPERACILLIN (Verified Allergy, Intermediate, Itching, 08/29/15) 08/29/15 tolerates Ceftaroline TAZOBACTAM (Verified Allergy, Intermediate, Itching, 01/29/15) POLYMYXIN B (Verified Allergy, Mild, Rash, 04/08/16) Suspected allergy reported by VANCOMYCIN (Verified Allergy, Mild, 07/15/14) ASPARAGINASE (Verified Allergy, Unknown, 01/28/14) CEFUROXIME (Unverified Allergy, Unknown, 04/19/16) IRON (Verified Allergy, Unknown, 01/28/14) LATEX, NATURAL RUBBER (Unverified Allergy, Unknown, 06/18/16) Subjective care noted no need for drain for radiology vitals better low mag awaiting drain placement Objective Last 24 Hour Vital Signs Date Time Temp Pulse Resp B/P (MAP) Pulse Ox O2 Delivery O2 Flow Rate FiO2 10/17/19 16:00 97.7 106 17 116/61 (79) 95 10/17/19 15:42 97.7 10/17/19 14:18 103 16 10/17/19 14:17 16 106/61 (76) 100 10/17/19 13:59 103 14 10/17/19 13:57 103 14 10/17/19 13:43 103 14 10/17/19 13:41 97.7 10/17/19 13:41 97.7 73 18 112/84 (93) 97 10/17/19 13:41 97.7 103 14 100/61 (74) 98 10/17/19 12:00 97.3 73 18 112/84 (93) 97 10/17/19 09:00 Room Air 10/17/19 08:00 97.7 76 17 117/66 (83) 96 10/17/19 04:00 98.1 86 22 97/53 (68) 96 10/17/19 00:00 98.2 95 24 110/65 (80) 96 10/16/19 21:00 Room Air 10/16/19 21:00 97 116/68 10/16/19 20:38 98.2 10/16/19 20:00 98.4 97 20 116/68 (84) 97 Intake and Output 10/16/19 10/17/19 19:00 07:00 Intake Total 1550 ml 400 ml Output Total 700 ml Balance 1550 ml -300 ml Intake Oral 600 ml IV Total 950 ml 400 ml Output Stool Total 700 ml # Voids 1 1 # Bowel Movements 1 Height (Feet): 5 Height (Inches): 5.00 Weight (Pounds): 239 Objective GENERAL: A well-developed female, chronically ill appearing. NAD HEENT: Negative. NECK: Supple. Extraocular movements are grossly intact. LUNGS: Fairly clear and symmetric. CARDIAC: S1, S2. RRR without murmurs, rubs, gallops. ABDOMEN: Soft, nontender, obese. Colostomy in place. EXTREMITIES: With significant lower extremity atrophy. Drains in place. Thanh Glover MD Oct 17, 2019 18:25
[2019-10-17] MEDS: Dyna-Hex 2% Top Sol 2oz TOPIC SCH (21:22)
--- NOTE | 2019-10-18 03:15 | Progress Note ---
DATE: 10/17/2019 CARDIOLOGY PROGRESS NOTE SUBJECTIVE: Remaining on antimicrobials. Possible new drain placement planned. On intravenous magnesium. Heart rate better controlled. OBJECTIVE: VITAL SIGNS: Blood pressure 117/66, pulse 76, respirations 17. LUNGS: Clear. CARDIAC: Regular. ABDOMEN: Soft. EXTREMITIES: No edema. Drain site is without bleeding. IMPRESSION: Improved. PLAN: 1. Antimicrobials. 2. Skin care. 3. Magnesium replacement intravenously. 4. Beta-bob dose was decreased yesterday and will be titrated and adjusted based on clinical parameters. Karthik Parra M.D. DR: MAGNO JOB#: [id number] CC:
[2019-10-18 04:00] VITALS: BP 121/77
[2019-10-18 08:00] VITALS: BP 114/66
--- NOTE | 2019-10-18 08:45 | General Progress Note ---
Assessment/Plan Assessment/Plan: IMPRESSION: 1. Fever recurrent 2. Chest x-ray, pulmonary changes, consider pneumonia. 3. Significant sinus tachycardia. 4. Anemia with history of transfusion. 5. Chronic wounds. 6. Chronic pain. 7. bcx + 8. severe PCM 9. low magnesium PLAN monitor vitals and fever curve antibiotics replace lytes drain placement not needed no need for drainage surgical follow up noted pain control ID recommendations for home d/w case management; dc planning need to optimize protein levels impression, plan, and exam edited and reviewed in detail care discussed with RN Subjective Allergies: Coded Allergies: CEFTRIAXONE (Verified Allergy, Intermediate, SOB, HR-140bpm, face swollen , pt became red, 10/24/15) CODEINE (Verified Allergy, Intermediate, SWELLING, 01/03/11) LATEX (Verified Allergy, Intermediate, SWELLING, 01/03/11) PIPERACILLIN (Verified Allergy, Intermediate, Itching, 08/29/15) 08/29/15 tolerates Ceftaroline TAZOBACTAM (Verified Allergy, Intermediate, Itching, 01/29/15) POLYMYXIN B (Verified Allergy, Mild, Rash, 04/08/16) Suspected allergy reported by VANCOMYCIN (Verified Allergy, Mild, 07/15/14) ASPARAGINASE (Verified Allergy, Unknown, 01/28/14) CEFUROXIME (Unverified Allergy, Unknown, 04/19/16) IRON (Verified Allergy, Unknown, 01/28/14) LATEX, NATURAL RUBBER (Unverified Allergy, Unknown, 06/18/16) Subjective care noted no need for drain for radiology vitals better low mag awaiting drain placement Objective Last 24 Hour Vital Signs Date Time Temp Pulse Resp B/P (MAP) Pulse Ox O2 Delivery O2 Flow Rate FiO2 10/18/19 04:00 98.2 118 18 121/77 (92) 96 10/17/19 21:00 100 93/52 10/17/19 20:43 Room Air 10/17/19 20:00 98.1 100 18 93/52 (66) 95 10/17/19 18:42 97.7 10/17/19 16:00 97.7 106 17 116/61 (79) 95 10/17/19 14:18 103 16 10/17/19 14:17 16 106/61 (76) 100 10/17/19 13:59 103 14 10/17/19 13:57 103 14 10/17/19 13:43 103 14 10/17/19 13:41 97.7 10/17/19 13:41 97.7 73 18 112/84 (93) 97 10/17/19 13:41 97.7 103 14 100/61 (74) 98 10/17/19 12:00 97.3 73 18 112/84 (93) 97 10/17/19 09:00 Room Air Intake and Output 10/17/19 10/18/19 19:00 07:00 Intake Total 1100 ml 250 ml Balance 1100 ml 250 ml Intake Oral 800 ml 250 ml IV Total 300 ml # Voids 3 # Bowel Movements 1 Labs Test 10/16/19 04:10 White Blood Count 7.0 K/UL (4.8-10.8) Red Blood Count 3.18 M/UL (4.20-5.40) Hemoglobin 9.1 G/DL (12.0-16.0) Hematocrit 29.0 % (37.0-47.0) Mean Corpuscular Volume 91 FL (80-99) Mean Corpuscular Hemoglobin 28.6 PG (27.0-31.0) Mean Corpuscular Hemoglobin Concent 31.3 G/DL (32.0-36.0) Red Cell Distribution Width 15.8 % (11.6-14.8) Platelet Count 108 K/UL (150-450) Mean Platelet Volume 8.2 FL (6.5-10.1) Neutrophils (%) (Auto) 58.4 % (45.0-75.0) Lymphocytes (%) (Auto) 28.8 % (20.0-45.0) Monocytes (%) (Auto) 6.3 % (1.0-10.0) Eosinophils (%) (Auto) 6.1 % (0.0-3.0) Basophils (%) (Auto) 0.4 % (0.0-2.0) Sodium Level 141 MMOL/L (136-145) Potassium Level 3.5 MMOL/L (3.5-5.1) Chloride Level 109 MMOL/L (98-107) Carbon Dioxide Level 21 MMOL/L (21-32) Anion Gap 11 mmol/L (5-15) Blood Urea Nitrogen 11 mg/dL (7-18) Creatinine 0.7 MG/DL (0.55-1.30) Estimat Glomerular Filtration Rate > 60 mL/min (>60) Glucose Level 107 MG/DL (74-106) Calcium Level 7.6 MG/DL (8.5-10.1) Magnesium Level 1.3 MG/DL (1.8-2.4) Total Bilirubin 0.2 MG/DL (0.2-1.0) Aspartate Amino Transf (AST/SGOT) 14 U/L (15-37) Alanine Aminotransferase (ALT/SGPT) 11 U/L (12-78) Alkaline Phosphatase 168 U/L (46-116) Total Protein 5.8 G/DL (6.4-8.2) Albumin 1.3 G/DL (3.4-5.0) Globulin 4.5 g/dL Albumin/Globulin Ratio 0.3 (1.0-2.7) Height (Feet): 5 Height (Inches): 5.00 Weight (Pounds): 239 Objective GENERAL: A well-developed female, chronically ill appearing. NAD HEENT: Negative. NECK: Supple. Extraocular movements are grossly intact. LUNGS: Fairly clear and symmetric. CARDIAC: S1, S2. RR tachy without murmurs, rubs, gallops. ABDOMEN: Soft, nontender, obese. Colostomy in place. EXTREMITIES: With significant lower extremity atrophy. Drains in place. Thanh Glover MD Oct 18, 2019 08:45
[2019-10-18 09:00] VITALS: BP 121/77
[2019-10-18] MEDS: Ascorbic Acid 500mg tab ORAL SCH (09:02)
[2019-10-18] MEDS ORDERED: ZYVOX600 MG/300 IVPB (09:50)
--- NOTE | 2019-10-18 12:39 | Infectious Diseases Prog Note ---
Assessment/Plan Assessment/Plan A 1. Paraspinal/ psoas abscess 2. fever 3. paraplegia 4. diabetes mellitus 5. hypertension 6. coag neg staph sepsis 7. Bilateral hip abscess 8. Multiple drug allergy 9. Thrombocytopenia P 1. continue linezolid 2. Follow up CBC after discharge Subjective ROS Limited/Unobtainable: Yes Constitutional: Denies: fever Allergies: Coded Allergies: CEFTRIAXONE (Verified Allergy, Intermediate, SOB, HR-140bpm, face swollen , pt became red, 10/24/15) CODEINE (Verified Allergy, Intermediate, SWELLING, 01/03/11) LATEX (Verified Allergy, Intermediate, SWELLING, 01/03/11) PIPERACILLIN (Verified Allergy, Intermediate, Itching, 08/29/15) 08/29/15 tolerates Ceftaroline TAZOBACTAM (Verified Allergy, Intermediate, Itching, 01/29/15) POLYMYXIN B (Verified Allergy, Mild, Rash, 04/08/16) Suspected allergy reported by VANCOMYCIN (Verified Allergy, Mild, 07/15/14) ASPARAGINASE (Verified Allergy, Unknown, 01/28/14) CEFUROXIME (Unverified Allergy, Unknown, 04/19/16) IRON (Verified Allergy, Unknown, 01/28/14) LATEX, NATURAL RUBBER (Unverified Allergy, Unknown, 06/18/16) Objective Last 24 Hour Vital Signs Date Time Temp Pulse Resp B/P (MAP) Pulse Ox O2 Delivery O2 Flow Rate FiO2 10/18/19 09:35 98.2 10/18/19 09:00 Room Air 10/18/19 09:00 118 121/77 10/18/19 08:00 98.1 110 21 114/66 (82) 97 10/18/19 04:00 98.2 118 18 121/77 (92) 96 10/17/19 21:00 100 93/52 10/17/19 20:43 Room Air 10/17/19 20:00 98.1 100 18 93/52 (66) 95 10/17/19 16:00 97.7 106 17 116/61 (79) 95 10/17/19 14:18 103 16 10/17/19 14:17 16 106/61 (76) 100 10/17/19 13:59 103 14 10/17/19 13:57 103 14 10/17/19 13:43 103 14 10/17/19 13:41 97.7 10/17/19 13:41 97.7 73 18 112/84 (93) 97 10/17/19 13:41 97.7 103 14 100/61 (74) 98 Height (Feet): 5 Height (Inches): 5.00 Weight (Pounds): 239 General Appearance: no acute distress HEENT: mucous membranes moist Respiratory/Chest: lungs clear Abdomen: soft, non tender Neurologic/Psychiatric: alert, oriented x 3, responsive, other - paraplegia Current Medications Medications (Trade) Dose Ordered Sig/Pineda Route PRN Reason Start Time Stop Time Status Last Admin Dose Admin Acetaminophen (Tylenol) 650 mg Q4H PRN ORAL Temp >100.5 10/11/19 18:00 11/08/19 17:59 10/14/19 05:08 Al Hydroxide/Mg Hydroxide (Mylanta) 30 ml Q4H PRN ORAL Abdominal cramps 10/11/19 18:00 11/08/19 17:59 Ascorbic Acid (Vitamin C) 500 mg TWICE A DAY ORAL 10/11/19 18:00 11/10/19 17:59 10/18/19 09:02 Chlorhexidine Gluconate (Nereida-Hex 2%) 1 applic DAILY@2000 TOPIC 10/12/19 20:00 01/10/20 19:59 10/17/19 21:22 Dextrose (Dextrose 50%) 25 ml Q30M PRN IV Hypoglycemia 10/11/19 18:15 01/06/20 04:44 Dextrose (Dextrose 50%) 50 ml Q30M PRN IV Hypoglycemia 10/11/19 18:15 01/06/20 04:44 Hydromorphone HCl (Dilaudid) 2 mg Q3H PRN IVP Severe Pain (Pain Scale 7-10) 10/17/19 01:15 10/24/19 01:14 10/18/19 09:04 Linezolid 300 ml @ 300 mls/hr Q12HR IVPB 10/13/19 21:00 10/20/19 20:59 10/18/19 09:03 Magnesium Sulfate 100 ml @ 100 mls/hr Q1H IVPB 10/18/19 16:00 10/18/19 17:59 Metoprolol Tartrate (Lopressor) 25 mg Q12HR ORAL 10/17/19 09:00 01/15/20 08:59 Multivitamins (Multivitamins) 1 tab DAILY ORAL 10/12/19 09:00 11/09/19 08:59 10/18/19 09:02 Ondansetron HCl (Zofran) 4 mg Q6H PRN IVP Nausea & Vomiting 10/11/19 18:00 11/10/19 17:59 10/13/19 15:16 Pantoprazole (Protonix) 40 mg ACBREAKFAST ORAL 10/12/19 06:30 11/07/19 06:29 10/18/19 05:56 Vaughn Juárez MD Oct 18, 2019 12:39
[2019-10-18] MEDS ORDERED: Cathflo Alteplase 2mg Inj INJ ONE (13:15)
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
--- NOTE | 2019-10-19 00:15 | Progress Note ---
DATE: 10/18/2019 CARDIOLOGY PROGRESS NOTE SUBJECTIVE: Discharge planning in progress. Patient with controlled pain. Appetite better. No shortness of breath. OBJECTIVE: VITAL SIGNS: Blood pressure 121/77, heart rate 110, respiratory rate 18, afebrile, room air oxygen sat 97%. LUNGS: Clear. CARDIAC: Regular rhythm. Rapid rate. Normal S1, S2. ABDOMEN: Soft. EXTREMITIES: No edema. Wound sites with no erythema. LABORATORY DATA: Noted from the last 24 hours. IMPRESSION: 1. Sepsis. 2. Abscesses, status post drainage. 3. Sinus tachycardia. 4. Anemia. 5. Hypomagnesemia. PLAN: 1. Additional magnesium. 2. Discharge plan noted. 3. Low-dose beta-bob. 4. Maintain adequate hydration. Karthik Parra M.D. DR: RAHAT JOB#: [id number] CC:
--- NOTE | 2019-10-22 13:18 | Discharge Summary ---
Discharge Summary Discharge Summary _ DATE OF ADMISSION: 10/07/2019 DATE OF DISCHARGE: 10/18/2019 DISCHARGED BY: Dr. Glover REASON FOR ADMISSION: 44 years old female with past medical history of nonhealing wounds, paraplegia, colostomy, hypertension, diabetes mellitus, asthma, protein calorie malnutrition , anemia, status post multiple blood transfusion, decubitus ulcers, presented with fever . Patient apparently had a drain to her mid back , which was accidentally dislodged. Subsequently she developed pain and fever . She did not noted any new drainage from the back area, but the drain was dislodged. No cough , no shortness of breath. Patient was receiving IV antibiotics administered by the home health nursing. Upon evaluation fever 102. Laboratory work-up revealed no leukocytosis, hemoglobin 8.7 ,hematocrit 27.4 , platelet counts 260. Sodium 131 , chloride 97. Stable other electrolytes and renal parameters. Albumin 2.0. Chest x-ray demonstrated questionable airspace opacity throughout both lung: inflammatory versus infection. Patient was pancultured and admitted for further management. CONSULTANTS: print press operator ID specialist Dr. Reyes surgery Dr. Allison HOSPITAL COURSE: Patient admitted to medical surgical floor and started on IV fluids and empiric antibiotic as per ID specialist recommendation. Initial blood culture on 10/06 revealed Staph epidermidis , 1 out of 4. Antibiotics provided for lumbar abscess and possible pneumonia. CT scan of the pelvis 10/05 reveal interim complete or near complete drainage of previously demonstrated left hip abscess. 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 The amount of gas has decreased since the previous study. Interim drainage of previously demonstrated right psoas abscess with apparent complete emptying. Persistent left psoas collection. Previously demonstrated superficial peroneal fluid collection no longer evident. Persistent retro-sacral/rect-coccygeal decubitus changes. Overall gas volume decreased within this. CT scan of the abdomen 10/06 revealed no significant change in appearance of bilateral hip joint abscesses since examination date before. Interval decrease in size of posterior paraspinal subcutaneous abscesses. Previously placed percutaneous drain no longer present. No significant change in appearance of intra-spinal abscesses seated at the L1- L2 level which connected to persistent left psoas muscle, also unchanged in size from prior examination dated 09/18/2019 Surgeon closely follow. Patient with extensive wound care plan. Records were obtained from her plastic surgeon Dr. Cristobal. Initial CT scan of pelvis showed some improvement ; drains noted with serous output. Patient undergone 10/[address]-guided drain placement catheter . Patient had successful aspiration and catheter placement for superficial midline posterior thoracolumbar fluid collection. Serosanguineous rather than grossly purulent fluid was aspirated . However, given patient history of recurrent abscesses ,was elected to leave a drain in place. Left psoas collection was not aspirated or drained as per patient request. Culture of the fluid on 10/10 revealed no isolated anaerobes. Repeated blood culture on 10/12 was negative. Patient undergone another CT of the pelvis on 10/16 for drainage of left psoas collection, which was not drained on 10/10 due to patient's request. Images taken in anticipation of catheter drainage of left psoas abscess demonstrated markedly decreased size of the abscess since previous study of 10/08 and 10/11/2019. It may indicate communication with the right-sided abscess that is currently draining by a pigtail catheter, or spontaneous involution related to successful antibiotic treatment. In any case, the interim decrease in size indicates that catheter drainage was likely not necessary. Also, given the current small size , aspiration would be technically challenging and potentially hazardous. Fevers resolved ,leukocytosis present for 1 day ,resolved. ID specialist recommended discharge home on linezolid for additional 2 weeks. Hemodynamic status was closely monitored. Beta-bob dose titrated and at some point was hold due to hypotension, and later resumed with low-dose. Adequate hydration was maintained. Hemoglobin and hematocrit were closely monitored with goal to keep hemoglobin above 7. Patient undergone transfusion of 2 units of packed red blood cells while in the hospital. Prior to discharge hemoglobin 9.1 , hematocrit 29. Supplemental oxygen provided and titrated to keep pulse oximetry above 92%. Pulmonary toilet provided as needed. DVT prophayxlis provided, Pain management was addressed as needed. GI prophylaxis provided. Bowel regimen instituted. Protein supplements provided as per registered dietitian recommendation. Supportive care provided. Wound care provided as per surgeon recommendation Patient clinically stabilized and was ready for discharge home with home health services. Patient was encouraged to maintain adequate hydration at home FINAL DIAGNOSES: Coagulase negative sepsis Lumbar abscess, status post drainage Probably pneumonia Recurrent fevers improved Paraplegia Diabetes mellitus Hypertension Thrombocytopenia Sinus tachycardia likely due to dehydration Anemia Asthma Hypomagnesemia Pressure ulcers , present on admission Colostomy care Severe protein calorie malnutrition Chronic pain DISCHARGE MEDICATIONS: See Medication Reconciliation list. DISCHARGE INSTRUCTIONS: Patient was discharged home with home health services for wound care and IV antibiotics. I have been assigned to dictate discharge summary for this account. I was not involved in the patient's management. Ngozi Yoo NP Oct 22, 2019 13:18
== END 2019-10-18 14:43 | disposition home or self-care (01) | DRG 871 ==
LOC: EMR 17:05 → 2W 18:08 → EDBEDREQ 18:10 → 2E 10-09 20:45 → 4E 10-11 17:28
PROC: 3E03328 Introduction of Oxazolidinones into Peripheral Vein, Percutaneous Approach (ICD-10-PCS; 2019-10-08)
PROC: 0J9730Z Drainage of Back Subcutaneous Tissue and Fascia with Drainage Device, Percutaneous Approach (ICD-10-PCS; 2019-10-11)
PROC: 30233N1 Transfusion of Nonautologous Red Blood Cells into Peripheral Vein, Percutaneous Approach (ICD-10-PCS; principal; 2019-10-12)
DX: A41.1 Sepsis due to other specified staphylococcus (principal); L89.324 Pressure ulcer of left buttock, stage 4; L89.314 Pressure ulcer of right buttock, stage 4; L89.894 Pressure ulcer of other site, stage 4; L89.154 Pressure ulcer of sacral region, stage 4; J18.9 Pneumonia, unspecified organism; K68.12 Psoas muscle abscess; E43 Unspecified severe protein-calorie malnutrition; M00.80 Arthritis due to other bacteria, unspecified joint; E87.1 Hypo-osmolality and hyponatremia; M46.26 Osteomyelitis of vertebra, lumbar region; G82.20 Paraplegia, unspecified; F11.20 Opioid dependence, uncomplicated; L02.212 Cutaneous abscess of back [any part, except buttock and flank]; N17.9 Acute kidney failure, unspecified; Z88.8 Allergy status to other drugs, medicaments and biological substances; Z88.6 Allergy status to analgesic agent; Z88.1 Allergy status to other antibiotic agents; Z91.040 Latex allergy status; B95.62 Methicillin resistant Staphylococcus aureus infection as the cause of diseases classified elsewhere; I10 Essential (primary) hypertension; J45.909 Unspecified asthma, uncomplicated; E86.0 Dehydration; E87.5 Hyperkalemia; E83.42 Hypomagnesemia; B86 Scabies; K52.9 Noninfective gastroenteritis and colitis, unspecified; Z43.3 Encounter for attention to colostomy; L89.316 Pressure-induced deep tissue damage of right buttock; L89.890 Pressure ulcer of other site, unstageable; E11.9 Type 2 diabetes mellitus without complications; D64.9 Anemia, unspecified
CPT/HCPCS: 36415; 71045; 72192; 72193; 74177; 75989; 80048; 80053; 82550; 82553; 83540; 83550; 83605; 83735; 83880; 84484; 85007; 85025; 85610; 85651; 85730; 86140; 86850; 86900; 86901; 86920; 87040; 87075; 87181; 93005; 96361; 96365; 96368; 99285; J2250; J2405; J7030